=== PATIENT | female | born 1945 | race Caucasian/White ===

== ENCOUNTER 2020-03-10 14:28 | Outpatient (REF) | payer MEDICARE, MEDICAID, SELFPAY | END 2020-03-10 14:29 | disposition home or self-care (01) | LOC: HO.HAP 14:28 | PROVIDERS: Visit Provider Internal Medicine | DX: Z46.1 Encounter for fitting and adjustment of hearing aid (principal) ==

== ENCOUNTER 2020-06-10 10:33 | Outpatient (REF) | payer MEDICARE, MEDICAID, SELFPAY ==
[2020-06-10 11:27] LABS: Hematocrit 47.6 % (37-47); Mean Corpuscular HGB Conc 31.5 g/dl (31.0-35.0); Mean Corpuscular Hemoglobin 28.1 pg (27.0-33.0); Mean Corpuscular Volume 89.3 fL (80-98); Platelet Count 263 X10*3/uL (160-400); Red Blood Count 5.33 X10*6/uL (4.20-5.50); Red Cell Distribution Width 13.7 % (11.0-16.0)
[2020-06-10 11:41] LABS: Estimated Average Glucose 203 mg/dL; Hemoglobin A1c % 8.7 %
[2020-06-10 11:56] LABS: Alanine Aminotransferase 20 U/L (0-31); Albumin Level 4.1 g/dL (3.5-5.0); Alkaline Phosphatase 110 U/L (39-117); Anion Gap 12 (12-20); Aspartate Amino Transferase 16 U/L (5-31); Bilirubin Total 0.3 mg/dL (0.0-1.0); Blood Urea Nitrogen 17 mg/dL (9-16); Calcium 9.3 mg/dL (8.4-10.2); Carbon Dioxide 31 mmol/L (22-29); Chloride 101 mmol/L (96-108); Cholesterol 138 mg/dL; Estimated Glomerular Filt Rate > 60; Glucose Fasting 259 mg/dL (60-99); HDL Cholesterol 29 mg/dL; LDL Cholesterol Calculated 41 mg/dl; Potassium 4.2 mmol/l (3.3-5.1); Sodium 140 mmol/L (135-145); Total Protein 7.1 g/dL (6.5-8.0); Triglycerides 341 mg/dL
[2020-06-10 12:02] LABS: Thyroid Stimulating Hormone 0.03 uIU/mL (0.32-4.0)
[2020-06-10 12:06] LABS: TSH reflex Free T4 0.03 mIU/mL (0.32-4.0)
[2020-06-10 12:45] LABS: Free T4 (Free Thyroxine) 1.37 ng/dL (0.71-1.85)
[2020-06-10 14:48] LABS: Creatinine Urine 133.46 mg/dL; Microalbum/Creatinine Ratio Ur 12.7 ug/mg cr
== END 2020-06-10 10:34 | disposition home or self-care (01) ==
LOC: HO.HMGCLDS 10:33
PROVIDERS: PCP Internal Medicine; Visit Provider Internal Medicine
DX: E11.9 Type 2 diabetes mellitus without complications (principal); I10 Essential (primary) hypertension; E03.9 Hypothyroidism, unspecified; F03.90 Unspecified dementia, unspecified severity, without behavioral disturbance, psychotic disturbance, mood disturbance, and anxiety
CPT/HCPCS: 36415; 80053; 80061; 82043; 83036; 84439; 84443; 85027

== ENCOUNTER 2020-08-15 09:31 | Emergency (ER) | payer MEDICARE, MEDICAID, SELFPAY ==
--- NOTE | ~2020-08-15 | CT_ITS ---
EXAMINATION: CT ABDOMEN AND PELVIS WITHOUT CONTRAST CLINICAL INFORMATION: Left flank pain COMPARISON: None TECHNIQUE: Multidetector volumetric imaging was performed from the superior aspect of the liver through the pubic symphysis. Sagittal and coronal reformatted images were obtained on the technologist's workstation. This CT examination was performed using dose optimization techniques as appropriate, variously including the following: *Automated exposure control *Adjustment of mA and/or kV according to patient size (this includes techniques or standardized protocols for targeted exams where dose is matched to indication/reason for exam; i.e. extremities or head) *Use of iterative reconstruction technique DLP: 502 mGy-cm FINDINGS: LUNG BASES: There is minimal bibasal atelectasis. The heart size is normal. There are pacer electrodes in the right atrium and right ventricle. LIVER, GALLBLADDER, AND BILIARY TREE: The liver is normal in size, shape, and attenuation. No focal hepatic lesion or biliary ductal dilatation is present. The gallbladder is contracted. PANCREAS: Unremarkable. SPLEEN: Unremarkable. ADRENAL GLANDS: Bilateral adrenal glands are slightly prominent. KIDNEYS AND URETERS: The kidneys are normal in size, shape, and attenuation. No hydronephrosis, hydroureter, or calculi seen. No perinephric stranding. There is a 9 mm partially exophytic lesion upper pole left kidney. Punctate wall calcification likely complex cyst. There are punctate 2 calcifications upper pole right kidney, 6 mm radiopaque calculi upper pole left kidney and several clusters of 2 mm calculi in midpole and few scattered 2 mm calculi in the lower pole left kidney. There is a 1 mm radiopaque calculi in the mid to distal portion of the right kidney on axial image 66/3 but no caliectasis or hydronephrosis seen. The left ureter is unremarkable. BLADDER: Unremarkable. GASTROINTESTINAL TRACT: There is diffuse colonic diverticulosis with mild mural thickening descending colon and pericolic colic fat stranding consistent with diverticulitis. The small bowel loops are normal caliber. There is moderate stool in sigmoid colon. The stomach is nondistended. The small bowel loops are normal caliber. The stomach is an remarkable. ABDOMINAL WALL: No significant hernia is appreciated. LYMPH NODES: Normal. VASCULAR: There is mild atherosclerotic dilatation of mid abdominal aorta measuring 3 cm wide and 3.5 cm in AP dimension. The right common iliac artery is slightly ectatic. PELVIC VISCERA: There is no free air or free fluid. OSSEOUS STRUCTURES: There are degenerative disc changes L5-S1 disc level. There is bilateral L4-L5 and L3-L4 facet joint arthropathy. CT/CT abdomen pelvis wo con IMPRESSION: Diffuse colonic diverticulosis with descending colon diverticulitis. There is mild pericolic fat stranding but no free air or free fluid to suspect any perforation. Bilateral nephrolithiasis. Suspect 1 mm calculi in the mid to distal right ureter but no hydroureteronephrosis.
[2020-08-15 09:34] VITALS: BP 160/60; BP 173/47; PULSE 60; PULSE 64; RESP 16; TEMP 36.6; O2SAT 94; O2SAT 96; BMI 26.5
[2020-08-15] MEDS: 0.9 % Sodium Chloride 1,000 ML 999 ML IVCONT (10:11)
--- NOTE | 2020-08-15 10:16 | ED.GENADULT ---
HPI - General Adult General Chief complaint: General Medical Stated complaint: FLANK PAIN Time Seen by Provider: 08/15/20 09:37 Source: patient Mode of arrival: ambulatory Limitations: no limitations Related Data Previous Rx's Medication Instructions Recorded cholecalciferol (vitamin D3) 125 125 mcg PO DAILY #90 cap 03/30/20 mcg (5,000 unit) capsule clopidogrel 75 mg tablet 75 mg PO DAILY #90 tab 03/30/20 donepezil 5 mg tablet 5 mg PO DAILY #90 tab 03/30/20 famotidine 40 mg tablet 40 mg PO DAILY #90 tab 03/30/20 gabapentin 100 mg capsule 100 mg PO BID #180 cap 03/30/20 insulin degludec 100 unit/mL (3 10 unit SUBCUT BEDTIME #15 ml 03/30/20 mL) subcutaneous pen rosuvastatin 10 mg tablet 10 mg PO DAILY #90 tab 03/30/20 metoprolol succinate 25 mg 25 mg PO DAILY #90 tab 04/28/20 tablet,extended release 24 hr lisinopril 10 mg tablet 10 mg PO DAILY #90 tab 06/10/20 levothyroxine 125 mcg tablet 125 mcg PO DAILY #90 tab 06/18/20 Allergies Allergy/AdvReac Type Severity Reaction Status Date / Time atorvastatin Allergy Unknown Unknown Verified 03/25/20 12:54 azithromycin Allergy Unknown Unknown Verified 03/25/20 12:54 ceftriaxone Allergy Unknown Unknown Verified 03/25/20 12:54 cephalexin Allergy Unknown Unknown Verified 03/25/20 12:54 citalopram Allergy Unknown Unknown Verified 03/25/20 12:54 levofloxacin Allergy Unknown Unknown Verified 03/25/20 12:54 metformin Allergy Unknown Unknown Verified 03/25/20 12:54 nitrofurantoin Allergy Unknown Unknown Verified 03/25/20 12:54 oxycodone Allergy Unknown Unknown Verified 03/25/20 12:54 penicillin V Allergy Unknown Unknown Verified 03/25/20 12:54 pioglitazone Allergy Unknown Unknown Verified 03/25/20 12:54 repaglinide Allergy Unknown unknown Verified 03/25/20 12:54 rosuvastatin [Crestor] Allergy Unknown Unknown Verified 03/25/20 12:54 sertraline Allergy Unknown Unknown Verified 03/25/20 12:54 simvastatin Allergy Unknown Unknown Verified 03/25/20 12:54 sulfacetamide Allergy Unknown Unknown Verified 03/25/20 12:54 Cefuroxime Sodium Allergy Unknown Unknown Uncoded 03/25/20 12:54 [facility] Past Medical History Medical History (Updated 08/15/20 @ 09:58 by COLE Robertson) Cataract Dementia Diabetes Frequent UTI HTN (hypertension) Hyperlipidemia Hypothyroid Macular degeneration Myocardial infarct Nephrolithiasis Pacemaker Surgical History (Updated 03/30/20 @ 09:14 by Alka Ramey CMA) H/O left knee surgery Status post lumbar spine surgery for decompression of spinal cord Social History Social History Smoking Status: Current every day smoker Use of substances other than those prescribed or required for medical reasons: No Advance Directives: No Advance Directives Information Provided: No Physical Exam Vital Signs: Vital Signs: Last Vital Signs Temp 97.8 F 08/15/20 09:34 Pulse 60 08/15/20 09:34 Resp 16 08/15/20 09:34 BP 173/47 H 08/15/20 09:34 Pulse Ox 94 08/15/20 09:34 Body Mass Index 26.5 Discharge Plan Discharge Prescriptions: No Action metoprolol succinate 25 mg tablet extended release 24 hr 25 mg PO DAILY Qty: 90 RF: 0 levothyroxine 125 mcg tablet 125 mcg PO DAILY Qty: 90 RF: 3 clopidogrel 75 mg tablet 75 mg PO DAILY Qty: 90 RF: 0 donepezil 5 mg tablet 5 mg PO DAILY Qty: 90 RF: 0 famotidine 40 mg tablet 40 mg PO DAILY Qty: 90 RF: 0 cholecalciferol (vitamin D3) 125 mcg (5,000 unit) capsule 125 mcg PO DAILY Qty: 90 RF: 0 gabapentin 100 mg capsule 100 mg PO BID Qty: 180 RF: 0 Tresiba FlexTouch U-100 100 unit/mL (3 mL) insulin pen 10 unit subcut BEDTIME Qty: 15 RF: 0 rosuvastatin [Crestor] 10 mg tablet 10 mg PO DAILY Qty: 90 RF: 0 lisinopril 10 mg tablet 10 mg PO DAILY Qty: 90 RF: 3
[2020-08-15 10:19] LABS: MANUAL DIFF FLAG NO
[2020-08-15 10:20] LABS: Basophils Absolute Auto 0.1 X10*3/uL (0.0-0.2); Basophils Percent Auto 0.7 % (0-2); Eosinophils Absolute Auto 0.1 X10*3/uL (0.0-0.4); Eosinophils Percent Auto 1.6 % (0-4); Hematocrit 43.9 % (37-47); Hemoglobin 13.9 g/dl (12.0-16.0); Imm Gran Abs Auto 0.02 X10*3/uL (0.00-0.03); Imm Gran Pct Auto 0.2 % (0.0-0.4); Lymphocytes Absolute Auto 1.7 X10*3/uL (1.2-4.9); Lymphocytes Percent Auto 19.7 % (20-40); Mean Corpuscular HGB Conc 31.7 g/dl (31.0-35.0); Mean Corpuscular Hemoglobin 28.5 pg (27.0-33.0); Mean Platelet Volume 9.6 fL (9.4-12.3); Monocytes Absolute Auto 0.5 X10*3/uL (0.1-1.2); Monocytes Percent Auto 6.3 % (2-11); Neutrophils Percent Auto 71.5 % (45-73); Platelet Count 222 X10*3/uL (160-400); Red Blood Count 4.88 X10*6/uL (4.20-5.50); Red Cell Distribution Width 13.4 % (11.0-16.0); White Blood Count 8.4 X10*3/uL (4.8-10.8)
--- NOTE | 2020-08-15 10:21 | ED_ITS ---
HPI - Abdominal Pain General Chief Complaint: General Medical Stated Complaint: FLANK PAIN Time Seen by Provider: 08/15/20 09:37 Source: patient and EMS Mode of arrival: EMS Limitations: no limitations History of Present Illness HPI narrative: 73-year-old female with a past medical history of dementia, myocardial infarction with pacemaker in place on Plavix, hypertension, hyperlipidemia, diabetes, hypothyroidism, cataracts, macular degeneration, nephrolithiasis and frequent UTIs currently [facility] presenting via EMS with complaints of atraumatic left-sided flank pain/left lower quadrant abdominal pain since yesterday. Denies any dizziness, headaches, nausea/vomiting, fevers, jaw pain, paresthesias, chest pain, shortness of breath, dyspnea on exertion, orthopnea, back pain, diarrhea, constipation, dysuria, hematuria or any other symptoms complaints or concerns at this time. MD elicited complaint: abdominal pain and flank pain Pertinent past history: kidney stones and past UTI Onset (ago): day(s) (Since yesterday) Pain Consistency: constant Location: LLQ and L flank Severity: moderate Quality: aching Radiation: none Migration to: no migration Exacerbating factors: nothing Relieving factors: nothing Associated symptoms: denies other symptoms Related Data Previous Rx's Medication Instructions Recorded cholecalciferol (vitamin D3) 125 125 mcg PO DAILY #90 cap 03/30/20 mcg (5,000 unit) capsule clopidogrel 75 mg tablet 75 mg PO DAILY #90 tab 03/30/20 donepezil 5 mg tablet 5 mg PO DAILY #90 tab 03/30/20 famotidine 40 mg tablet 40 mg PO DAILY #90 tab 03/30/20 gabapentin 100 mg capsule 100 mg PO BID #180 cap 03/30/20 insulin degludec 100 unit/mL (3 10 unit SUBCUT BEDTIME #15 ml 03/30/20 mL) subcutaneous pen rosuvastatin 10 mg tablet 10 mg PO DAILY #90 tab 03/30/20 metoprolol succinate 25 mg 25 mg PO DAILY #90 tab 04/28/20 tablet,extended release 24 hr lisinopril 10 mg tablet 10 mg PO DAILY #90 tab 06/10/20 levothyroxine 125 mcg tablet 125 mcg PO DAILY #90 tab 06/18/20 ciprofloxacin HCl 750 mg PO BID 7 Days #14 tab 08/15/20 metronidazole [Flagyl] 500 mg PO BID 7 Days #14 tab 08/15/20 tramadol 50 mg PO BID PRN #14 tab 08/15/20 Allergies Allergy/AdvReac Type Severity Reaction Status Date / Time atorvastatin Allergy Unknown Unknown Verified 03/25/20 12:54 azithromycin Allergy Unknown Unknown Verified 03/25/20 12:54 ceftriaxone Allergy Unknown Unknown Verified 03/25/20 12:54 cephalexin Allergy Unknown Unknown Verified 03/25/20 12:54 citalopram Allergy Unknown Unknown Verified 03/25/20 12:54 levofloxacin Allergy Unknown Unknown Verified 03/25/20 12:54 metformin Allergy Unknown Unknown Verified 03/25/20 12:54 nitrofurantoin Allergy Unknown Unknown Verified 03/25/20 12:54 oxycodone Allergy Unknown Unknown Verified 03/25/20 12:54 penicillin V Allergy Unknown Unknown Verified 03/25/20 12:54 pioglitazone Allergy Unknown Unknown Verified 03/25/20 12:54 repaglinide Allergy Unknown unknown Verified 03/25/20 12:54 rosuvastatin [Crestor] Allergy Unknown Unknown Verified 03/25/20 12:54 sertraline Allergy Unknown Unknown Verified 03/25/20 12:54 simvastatin Allergy Unknown Unknown Verified 03/25/20 12:54 sulfacetamide Allergy Unknown Unknown Verified 03/25/20 12:54 Cefuroxime Sodium Allergy Unknown Unknown Uncoded 03/25/20 12:54 Review of Systems Review of Systems Constitutional : No Weight loss, No Fever, No Chills, No Night Sweats, No Fatigue, NoMalaise ENT/Mouth: No ear pain, No sore throat, No Difficulty swallowing Cardiovascular : No Chest Pain, No SOB, No Dyspnea on Exertion, No Orthopnea, NoEdema, No Palpitations Respiratory : No Cough, No Sputum, No Wheezing, No Dyspnea Gastrointestinal : + Abdominal pain, No Nausea, No Vomiting, No Diarrhea, No Hematochezia, No Melena Genitourinary : No irregular bleeding, No Dysuria, No Urinary Frequency, No Hematuria,No Urinary Incontinence, No Urgency, No Flank Pain Musculoskeletal : No joint pain, No Myalgias, No Joint Swelling Skin : No Skin Lesions, No rash Neuro : No Weakness, No Numbness, No Paresthesias, No Loss of Consciousness, NoDizziness, No Headache Psych : No Social Issues, Heme/Lymph: No Bruising, No Bleeding,No Lymphadenopathy Endocrine : No Polyuria, No Polydipsia, No Temperature Intolerance Yes all other systems are reviewed and are negative Physical Exam Vital Signs: Vital Signs: Last Vital Signs Temp 97.8 F 08/15/20 12:11 Pulse 61 08/15/20 12:11 Resp 16 08/15/20 12:11 BP 163/73 H 08/15/20 12:11 Pulse Ox 98 08/15/20 12:11 Body Mass Index 26.5 vital signs have been reviewed as normal and appeared to be correct. Blood pressure normal. Heart rate hypertensive at 173/47. Respiration rate normal. Temperature normal. Oxygen saturation normal. Appearance: Alert. Oriented X3. No acute distress. Head: Normal external exam. Normocephalic. Eyes: PERRLA. EOMI. Conjunctiva and sclera normal. Eyelids normal. ENT: Pharynx normal. Uvula midline. Moist mucous membranes. Neck: Normal inspection. Neck supple. FROM. No adenopathy. No meningeal signs. CVS: Normal heart rate and rhythm. Heart sound normal. No murmurs noted. Pulses normal throughout. Respiratory: No respiratory distress. Painless inspiration. Breath sounds norm al. No wheezes/rales/rhonchi noted. Chest nontender. No accessory muscle usage noted or decreased air movement noted. Abdomen: Soft and mild tenderness to palpation to left flank/left lower quadrant . Nondistended. No guarding. No rigidity. Bowel sounds normal in all 4 quadrants. No distention noted. No organomegaly noted. No visible injury noted. No rebound tenderness. Negative Rovsing sign. Negative obturator's sign. Negative psoas sign. Negative Zuleta sign. Back: No CVA tenderness. Full range of motion noted. Skin: Skin warm and dry. Normal skin color. Normal skin turgor. No rashes/lesions/lacerations noted. Extremities: Extremities exhibit normal range of motion. Extremities nontender. Neuro: Oriented X 3. No motor deficit. No sensory deficit. Reflexes normal. Course Course Course Narrative: 10:15am - 73-year-old female with a past medical history of dementia, myocardial infarction with pacemaker in place on Plavix, hypertension, hyperlipidemia, diabetes, hypothyroidism, cataracts, macular degeneration, nephrolithiasis and frequent UTIs currently residing [facility] a [facility] presenting via EMS with complaints of atraumatic left-sided flank pain/left lower quadrant abdominal pain since yesterday. - on exam patient is alert not in any acute distress. Mildly hypertensive at 173/47 otherwise all other vitals are within normal limits. Lungs clear to auscultation. CV RRR. Abdomen is soft although patient has tenderness to palpation to left lower quadrant/left flank area. Not consistent with acute abdomen. No focal neuro deficits noted patient is no intact. - Concern for kidney stones vs diverticulitis vs UTI/pyelonephritis - Plan: Labs, UA, CT scan of abd/pelvis without IV contrast provide a L of IV fluids and 50 mg of tramadol and re-evaluate. Reevaluation(s) Reevaluation #1: - all labs within normal limits. UA with +1 leukocytes although she has +2 squamous epithelia self possibly a dirty catch therefore will not treat for UTI will wait for culture - CT scan of abdomen and pelvis revealed a 9 mm partially exophytic lesion upper pole left kidney. And bilateral nephrolithiasis. Suspect 1 mm calculi in the mid to distal right ureteral but no hydronephrosis. Patient was also noted to have diffuse colonic diverticulosis with descending colon diverticulitis with mild pericolonic fat stranding but no free air or free fluid to suspect any perforation - therefore patient is tolerating p.o. fluids and pain is controlled with tramadol therefore will send back to the penitentiary facility with Flagyl and ciprofloxacin as daughter who is at bedside reports that she has had ciprofloxacin in the past without any allergic reactions along with tramadol and referral to Dr. Che for the 9 mm partially exophytic lesion upper pole left kidney. And bilateral nephrolithiasis. As Dr. Che reported there is nothing to do at this time for the patient's 9 mm partially exophytic lesion upper pole left kidney. And bilateral nephrolithiasis. He reported that he wants the patient to follow up with him in his office outpatient. - therefore will DC home back to penitentiary facility with antibiotics and symptomatic treatment and referral to Dr. Che. Patient and penitentiary facility understand and agree with this plan. Time: 11:58 MDM - Abdominal Pain Medical Records Attestation: I reviewed the patient's medical records. Lab Data Attestation: I reviewed the patient's lab results. Result diagrams: 08/15/20 10:15 08/15/20 10:15 Labs: Lab Results 03/14/21 03/14/21 03/14/21 Range/Units 10:15 10:15 10:15 WBC 8.4 (4.8-10.8) X10*3/uL RBC 4.88 (4.20-5.50) X10*6/uL Hgb 13.9 (12.0-16.0) g/dl Hct 43.9 (37-47) % MCV 90.0 (80-98) fL MCH 28.5 (27.0-33.0) pg MCHC 31.7 (31.0-35.0) g/dl RDW 13.4 (11.0-16.0) % Plt Count 222 (160-400) X10*3/uL MPV 9.6 (9.4-12.3) fL Immature Gran % (Auto) 0.2 (0.0-0.4) % Neut % (Auto) 71.5 (45-73) % Lymph % (Auto) 19.7 L (20-40) % Heard % (Auto) 6.3 (2-11) % Eos % (Auto) 1.6 (0-4) % Baso % (Auto) 0.7 (0-2) % Lymph # (Auto) 1.7 (1.2-4.9) X10*3/uL Heard # (Auto) 0.5 (0.1-1.2) X10*3/uL Eos # (Auto) 0.1 (0.0-0.4) X10*3/uL Baso # (Auto) 0.1 (0.0-0.2) X10*3/uL Abs Immat Gran (auto) 0.02 (0.00-0.03) X10*3/uL Absolute Neuts (auto) 6.0 (2.0-8.3) X10*3/uL Absolute Nucleated RBC 0.000 (0.0-0.012) X10*3/uL Nucleated RBC % (auto) 0.0 (0.0-0.2) /100WBC Hold Purple Top SEE NOTE PT 13.5 H (10.8-13.0) SEC INR 1.1 (0.9-1.1) Sodium (135-145) mmol/L Potassium (3.3-5.1) mmol/L Chloride (96-108) mmol/L Carbon Dioxide (22-29) mmol/L Anion Gap (12-20) BUN (9-16) mg/dL Creatinine (0.5-1.4) mg/dL Estim Creat Clear Calc Estimated GFR Random Glucose (60-115) mg/dL Calcium (8.4-10.2) mg/dL Magnesium (1.6-2.6) mg/dL Total Bilirubin (0.0-1.0) mg/dL Direct Bilirubin (0.0-0.5) mg/dL AST (5-31) U/L ALT (0-31) U/L Alkaline Phosphatase (39-117) U/L Total Protein (6.5-8.0) g/dL Albumin (3.5-5.0) g/dL Lipase (8-78) U/L Urine Color Urine Appearance Urine pH (5.0-8.0) Ur Specific [place] (1.005-1.025) Urine Protein (NEG-TRACE) MG/DL Urine Glucose (UA) (NEG) MG/DL Urine Ketones (NEG) MG/DL Urine Blood (NEG) Urine Nitrite (NEG) Ur Leukocyte Esterase (NEG) Urine RBC (0) /HPF Urine WBC (0-4) /HPF Ur Squamous Epith Cells /LPF Urine Bacteria /LPF 08/15/20 08/15/20 08/15/20 Range/Units 10:15 10:15 11:27 WBC (4.8-10.8) X10*3/uL RBC (4.20-5.50) X10*6/uL Hgb (12.0-16.0) g/dl Hct (37-47) % MCV (80-98) fL MCH (27.0-33.0) pg MCHC (31.0-35.0) g/dl RDW (11.0-16.0) % Plt Count (160-400) X10*3/uL MPV (9.4-12.3) fL Immature Gran % (Auto) (0.0-0.4) % Neut % (Auto) (45-73) % Lymph % (Auto) (20-40) % Heard % (Auto) (2-11) % Eos % (Auto) (0-4) % Baso % (Auto) (0-2) % Lymph # (Auto) (1.2-4.9) X10*3/uL Heard # (Auto) (0.1-1.2) X10*3/uL Eos # (Auto) (0.0-0.4) X10*3/uL Baso # (Auto) (0.0-0.2) X10*3/uL Abs Immat Gran (auto) (0.00-0.03) X10*3/uL Absolute Neuts (auto) (2.0-8.3) X10*3/uL Absolute Nucleated RBC (0.0-0.012) X10*3/uL Nucleated RBC % (auto) (0.0-0.2) /100WBC Hold Purple Top PT (10.8-13.0) SEC INR (0.9-1.1) Sodium 140 (135-145) mmol/L Potassium 4.4 (3.3-5.1) mmol/L Chloride 103 (96-108) mmol/L Carbon Dioxide 29 (22-29) mmol/L Anion Gap 12 (12-20) BUN 15 (9-16) mg/dL Creatinine 0.82 (0.5-1.4) mg/dL Estim Creat Clear Calc 54.0 Estimated GFR > 60 Random Glucose 222 H (60-115) mg/dL Calcium 8.6 D (8.4-10.2) mg/dL Magnesium 2.0 (1.6-2.6) mg/dL Total Bilirubin 0.3 (0.0-1.0) mg/dL Direct Bilirubin 0.2 (0.0-0.5) mg/dL AST 9 D (5-31) U/L ALT 10 (0-31) U/L Alkaline Phosphatase 98 (39-117) U/L Total Protein 6.5 (6.5-8.0) g/dL Albumin 3.7 (3.5-5.0) g/dL Lipase 29 Cancelled (8-78) U/L Urine Color YELLOW Urine Appearance HAZY Urine pH 6.0 (5.0-8.0) Ur Specific [place] 1.015 (1.005-1.025) Urine Protein NEG (NEG-TRACE) MG/DL Urine Glucose (UA) NEG (NEG) MG/DL Urine Ketones NEG (NEG) MG/DL Urine Blood TRACE (NEG) Urine Nitrite NEG (NEG) Ur Leukocyte Esterase 1+ H (NEG) Urine RBC 0-2 (0) /HPF Urine WBC 30-49 H (0-4) /HPF Ur Squamous Epith Cells 2+ /LPF Urine Bacteria 2+ /LPF Imaging Data CT scan of abdomen pelvis without IV contrast: Attestation: I personally reviewed and interpreted this imaging study as follows: Radiologist's impression: FINDINGS: LUNG BASES: There is minimal bibasal atelectasis. The heart size is normal. There are pacer electrodes in the right atrium and right ventricle. LIVER, GALLBLADDER, AND BILIARY TREE: The liver is normal in size, shape, and attenuation. No focal hepatic lesion or biliary ductal dilatation is present. The gallbladder is contracted. PANCREAS: Unremarkable. SPLEEN: Unremarkable. ADRENAL GLANDS: Bilateral adrenal glands are slightly prominent. KIDNEYS AND URETERS: The kidneys are normal in size, shape, and attenuation. No hydronephrosis, hydroureter, or calculi seen. No perinephric stranding. There is a 9 mm partially exophytic lesion upper pole left kidney. Punctate wall calcification likely complex cyst. There are punctate 2 calcifications upper pole right kidney, 6 mm radiopaque calculi upper pole left kidney and several clusters of 2 mm calculi in midpole and few scattered 2 mm calculi in the lower pole left kidney. There is a 1 mm radiopaque calculi in the mid to distal portion of the right kidney on axial image 66/3 but no caliectasis or hydronephrosis seen. The left ureter is unremarkable. BLADDER: Unremarkable. GASTROINTESTINAL TRACT: There is diffuse colonic diverticulosis with mild mural thickening descending colon and pericolic colic fat stranding consistent with diverticulitis. The small bowel loops are normal caliber. There is moderate stool in sigmoid colon. The stomach is nondistended. The small bowel loops are normal caliber. The stomach is an remarkable. ABDOMINAL WALL: No significant hernia is appreciated. LYMPH NODES: Normal. VASCULAR: There is mild atherosclerotic dilatation of mid abdominal aorta measuring 3 cm wide and 3.5 cm in AP dimension. The right common iliac artery is slightly ectatic. PELVIC VISCERA: There is no free air or free fluid. OSSEOUS STRUCTURES: There are degenerative disc changes L5-S1 disc level. There is bilateral L4-L5 and L3-L4 facet joint arthropathy. CT/CT abdomen pelvis wo con IMPRESSION: Diffuse colonic diverticulosis with descending colon diverticulitis. There is mild pericolic fat stranding but no free air or free fluid to suspect any perforation. Bilateral nephrolithiasis. Suspect 1 mm calculi in the mid to distal right ureter but no hydroureteronephrosis. Discharge Plan Discharge Clinical Impression: Nephrolithiasis, Diverticulitis, Kidney lesion Patient Disposition: Home, Self-Care Instructions: Diverticulitis (ED), Kidney Stones (ED), Diverticulitis Diet (ED) Additional Instructions: Your CT scan revealed the lesion and your upper pole of the left kidney I consulted with Urology Dr. Che and he reported there is nothing at this time that you would need to be admitted for although he wants you to follow-up outpatient with him please call on Sunday to make a follow-up appointment as soon as possible within the next 1-[address] Che the numbers listed below. You were also noted to have diverticulitis therefore will place you on antibiotics and symptomatic treatment. Return if any new or worsening symptoms and follow up with her primary care provider and Dr. Che. KIDNEYS AND URETERS: The kidneys are normal in size, shape, and attenuation. No hydronephrosis, hydroureter, or calculi seen. No perinephric stranding. There is a 9 mm partially exophytic lesion upper pole left kidney. Punctate wall calcification likely complex cyst. There are punctate 2 calcifications upper pole right kidney, 6 mm radiopaque calculi upper pole left kidney and several clusters of 2 mm calculi in midpole and few scattered 2 mm calculi in the lower pole left kidney. There is a 1 mm radiopaque calculi in the mid to distal portion of the right kidney on axial image 66/3 but no caliectasis or hydronephrosis seen. The left ureter is unremarkable. BLADDER: Unremarkable. GASTROINTESTINAL TRACT: There is diffuse colonic diverticulosis with mild mural thickening descending colon and pericolic colic fat stranding consistent with diverticulitis. The small bowel loops are normal caliber. There is moderate stool in sigmoid colon. The stomach is nondistended. The small bowel loops are normal caliber. The stomach is an remarkable. The rest of the CT scan of the abdomen and pelvis were within normal limits Prescriptions: New metronidazole [Flagyl] 500 mg tablet 500 mg PO BID 7 Days Qty: 14 RF: 0 tramadol 50 mg tablet 50 mg PO BID PRN (Reason: pain) Qty: 14 RF: 0 ciprofloxacin HCl 750 mg tablet 750 mg PO BID 7 Days Qty: 14 RF: 0 No Action metoprolol succinate 25 mg tablet extended release 24 hr 25 mg PO DAILY Qty: 90 RF: 0 levothyroxine 125 mcg tablet 125 mcg PO DAILY Qty: 90 RF: 3 clopidogrel 75 mg tablet 75 mg PO DAILY Qty: 90 RF: 0 donepezil 5 mg tablet 5 mg PO DAILY Qty: 90 RF: 0 famotidine 40 mg tablet 40 mg PO DAILY Qty: 90 RF: 0 cholecalciferol (vitamin D3) 125 mcg (5,000 unit) capsule 125 mcg PO DAILY Qty: 90 RF: 0 gabapentin 100 mg capsule 100 mg PO BID Qty: 180 RF: 0 Tresiba FlexTouch U-100 100 unit/mL (3 mL) insulin pen 10 unit subcut BEDTIME Qty: 15 RF: 0 rosuvastatin [Crestor] 10 mg tablet 10 mg PO DAILY Qty: 90 RF: 0 lisinopril 10 mg tablet 10 mg PO DAILY Qty: 90 RF: 3 Referrals: Ashley Morales MD [Primary Care Provider] - 2 days Derian Che MD [Physician] - 2 days (Call Sunday to make a follow-up appointment within the next week or 2) Print Language: [place] [facility] Past Medical History Attestation statement: The following information was validated with the patient. Medical History Cataract Dementia Diabetes Frequent UTI HTN (hypertension) Hyperlipidemia Hypothyroid Macular degeneration Myocardial infarct Nephrolithiasis Pacemaker Surgical History H/O left knee surgery Status post lumbar spine surgery for decompression of spinal cord Social History Social History Smoking Status: Current every day smoker Use of substances other than those prescribed or required for medical reasons: No Advance Directives: No Advance Directives Information Provided: No
[2020-08-15 10:49] LABS: INTERNATIONAL NORM RATIO 1.1 (0.9-1.1); Prothrombin Time 13.5 SEC (10.8-13.0)
[2020-08-15] MEDS: traMADoL HCL 50 MG TABLET PO (11:15)
[2020-08-15 11:32] LABS: Alanine Aminotransferase 10 U/L (0-31); Albumin Level 3.7 g/dL (3.5-5.0); Alkaline Phosphatase 98 U/L (39-117); Anion Gap 12 (12-20); Aspartate Amino Transferase 9 U/L (5-31); Bilirubin Direct 0.2 mg/dL (0.0-0.5); Bilirubin Total 0.3 mg/dL (0.0-1.0); Blood Urea Nitrogen 15 mg/dL (9-16); Calcium 8.6 mg/dL (8.4-10.2); Carbon Dioxide 29 mmol/L (22-29); Chloride 103 mmol/L (96-108); Estimated Glomerular Filt Rate > 60; Glucose Random 222 mg/dL (60-115); Lipase 29 U/L (8-78); Potassium 4.4 mmol/L (3.3-5.1); Sodium 140 mmol/L (135-145); Total Protein 6.5 g/dL (6.5-8.0)
[2020-08-15 11:33] LABS: Glucose Urine UA NEG (NEG); Leukocyte Esterase Urine 1+ (NEG); Nitrite Urine NEG (NEG); Specific Gravity - Urine 1.015 (1.005-1.025); UACC Culture Trigger YES; Urine Blood TRACE (NEG); Urine Ketones NEG (NEG); Urine Protein NEG (NEG-TRACE)
[2020-08-15 11:36] LABS: Appearance Urine HAZY; Color Urine YELLOW
[2020-08-15 11:43] LABS: Bacteria Urine 2+ /LPF; RBC Urine 0-2 /HPF (0); Squamous Epithelial Cell Urine 2+ /LPF; WBC Urine 30-49 /HPF (0-4)
[2020-08-15 12:11] VITALS: BP 163/73; PULSE 61; RESP 16; TEMP 36.6; O2SAT 98
== END 2020-08-15 14:27 | disposition home or self-care (01) ==
PROVIDERS: Physician Assistant Medical; Emergency Provider Emergency Medicine; PCP Internal Medicine
DX: N20.0 Calculus of kidney (principal); K57.32 Diverticulitis of large intestine without perforation or abscess without bleeding; N28.9 Disorder of kidney and ureter, unspecified; R10.32 Left lower quadrant pain; I25.10 Atherosclerotic heart disease of native coronary artery without angina pectoris; Z79.01 Long term (current) use of anticoagulants; Z79.899 Other long term (current) drug therapy; F17.200 Nicotine dependence, unspecified, uncomplicated; Z71.6 Tobacco abuse counseling
CPT/HCPCS: 36415; 74176; 80048; 80076; 81001; 81003; 83690; 83735; 85025; 85610; 87086; 96360; 99284

== ENCOUNTER → 2020-09-16 13:44 | Outpatient (BNVA) | payer MEDICARE, MEDICAID, SELFPAY | PROVIDERS: PCP Internal Medicine; Visit Provider Urology | DX: N20.0 Calculus of kidney (principal) | CPT/HCPCS: 99202 ==

== ENCOUNTER 2020-10-05 11:01 | Outpatient (REF) | payer MEDICARE, MEDICAID, SELFPAY ==
--- NOTE | 2020-10-05 11:17 | MHC.AU.P13 ---
Hearing Instrument Cleaning/L&D Date of Visit: 10/05/20 Right Ear: Purchasing Director: [employer] Model: AUDEO M70-13T Serial Number: [id number] Repair Warranty: 03/30/2023 Loss and Damage Warranty: USED 10/05/2020 Battery Size: 13 Color: GRAPHITE JONES Core Laying Machine Operator: 2M Type of Dome: SMALL POWER Type of Wax Guard: CERUSHIELD Left Ear: Purchasing Director: [employer] Model: AUDEO M70-13T Serial Number: [id number] Repair Warranty: 03/30/2023 Loss and Damage Warranty: 03/30/2023 Battery Size: 13 Color: GRAPHITE JONES Core Laying Machine Operator: 2M Type of Dome: SMALL POWER Type of Wax Guard: CERUSHIELD Follow-Up Summary: Patient's daughter came in with left aid for cleaning - cleaned, replaced wax guard, retention tail, and small power dome - amplifying clearly. Daughter filled loss and damage form for right aid which has been lost. Faxed loss and damage claim to [employer]. Recommendations: Recommendations: Patient will be contacted when materials have arrived. Signature: Provider: HEYDI Cunha-HIS
== END 2020-10-05 11:02 | disposition home or self-care (01) ==
LOC: HO.HAP 11:01
PROVIDERS: Visit Provider Internal Medicine
DX: Z46.1 Encounter for fitting and adjustment of hearing aid (principal)
CPT/HCPCS: V5266

== ENCOUNTER 2020-11-04 12:52 | Inpatient (IN) | payer MEDICARE, MEDICAID, SELFPAY ==
--- NOTE | ~2020-11-04 | XR_ITS ---
EXAMINATION: XR CHEST CLINICAL INFORMATION: Palpitations. COMPARISON: None TECHNIQUE: Frontal view of the chest was obtained. FINDINGS: The lungs are well-expanded and clear of acute process. Heart size and pulmonary vascularity is normal. There are dual pacer electrodes in right atrium and right ventricle. No gross bony abnormality seen. XR/XR chest 1V IMPRESSION: Unremarkable chest exam.
--- NOTE | ~2020-11-04 | CT_ITS ---
EXAMINATION: CT ANGIOGRAM OF THE CHEST WITH AND WITHOUT CONTRAST (CT PULMONARY ANGIOGRAM FOR PE) CLINICAL INFORMATION: Reason for Exam palpitations d-dimer elevated r/o PE COMPARISON: Chest x-ray 11/04/2020 TECHNIQUE: Prior to contrast administration, noncontrast localization images were obtained. Subsequently, multidetector volumetric imaging was performed from the thoracic inlet to below the diaphragms following the administration of 80 mL Omnipaque 350 intravenous contrast. No contrast reaction reported Sagittal, coronal, and MIP oblique sagittal reformatted images were obtained on the CT workstation, uploaded to PACS, and reviewed. This CT examination was performed using dose optimization techniques as appropriate, variously including the following: *Automated exposure control *Adjustment of mA and/or kV according to patient size (this includes techniques or standardized protocols for targeted exams where dose is matched to indication/reason for exam; i.e. extremities or head) *Use of iterative reconstruction technique Total exam dose-length product 247 mGy-cm FINDINGS: QUALITY OF STUDY/CONTRAST BOLUS: Satisfactory. PULMONARY ARTERIES: No central or segmental pulmonary emboli. THORACIC AORTA: No aneurysm or dissection. There is a moderate volume of vascular calcifications of aorta. LUNG: Paraseptal emphysematous change of lungs. No acute airways disease. No interstitial lung disease. There is no bronchiectasis. No suspicious lung nodules. PLEURA: No pleural effusion or pneumothorax. MEDIASTINUM: Pacemaker leads in the right atrium and right ventricle. Normal heart size. No pericardial effusion. No hilar or mediastinal lymphadenopathy. No evidence of septal bowing or right heart strain. Large volume of coronary artery calcification. There is a tiny air droplets in the right paratracheal soft tissues in the superior mediastinum likely an intravascular droplet of air related to IV injection. Axial image series 5. CHEST WALL/AXILLA: No axillary or internal mammary lymphadenopathy. OSSEOUS STRUCTURES: No acute or suspicious osseous abnormality. UPPER ABDOMEN: Unremarkable. No reflux of contrast into the hepatic veins to suggest elevated right heart pressures. CT/CT angio chest PE protocol IMPRESSION: 1. No acute abnormality. No evidence of pulmonary embolism. 2. Emphysematous change of lungs. 3. Large volume of coronary artery calcification. Pacemaker leads in the heart. VTE: negative
[2020-11-04 12:56] VITALS: BP 193/94; PULSE 86; RESP 18; TEMP 36.8; O2SAT 94; BMI 27.3
--- NOTE | 2020-11-04 13:09 | ECG_ITS ---
Test Reason : PALPITATIONS Blood Pressure : / mmHG Vent. Rate : 084 BPM Atrial Rate : 084 BPM P-R Int : 196 ms QRS Dur : 102 ms QT Int : 458 ms P-R-T Axes : 000 -37 110 degrees QTc Int : 541 ms Normal sinus rhythm Left axis deviation Left ventricular hypertrophy with repolarization abnormality Inferior infarct , age undetermined Prolonged QT Abnormal ECG No previous ECGs available Referred By: Oneida Delarosa Electronically Signed By:Abhijeet Aldana
--- NOTE | 2020-11-04 13:15 | ED_ITS ---
HPI - Arrhythmia/Palpitations General Chief Complaint: Arrhythmia/Palpitations Stated Complaint: PALPITATIONS Time Seen by Provider: 11/04/20 13:09 Source: patient Mode of arrival: ambulatory Limitations: no limitations History of Present Illness HPI narrative: 75 yo female with cognitive impairment, IDDM, pacemaker - unknown reasons, HTN, diverticulitis, OK here with abrupt onset of palpitations/dyspnea/pain into back EMS caugh irregular rhythm to 170s that broke prior to arrival patient cannot tell me if she has hx of afib, states all of her symptoms are gone at this time MD complaint: rapid heart beat, heart racing and palpitations Onset (ago): minute(s) Duration: now resolved Severity: severe Context: occurred during exertion (walking up stairs) Arrhythmia history: pacemaker Associated symptoms: shortness of breath, nausea and other (back pain) Related Data Home Medications Medication Instructions Recorded Confirmed cyanocobalamin (vitamin B-12) 1,000 mcg PO DAILY 11/04/20 11/04/20 donepezil 5 mg PO BEDTIME 11/04/20 11/04/20 lisinopril 40 mg PO DAILY 11/04/20 11/04/20 rosuvastatin [Crestor] 10 mg PO BEDTIME 11/04/20 11/04/20 Previous Rx's Medication Instructions Recorded cholecalciferol (vitamin D3) 125 125 mcg PO DAILY #90 cap 03/30/20 mcg (5,000 unit) capsule clopidogrel 75 mg tablet 75 mg PO DAILY #90 tab 03/30/20 gabapentin 100 mg capsule 100 mg PO BID #180 cap 03/30/20 levothyroxine 125 mcg tablet 125 mcg PO DAILY #90 tab 06/18/20 blood sugar diagnostic #100 ea 09/01/20 blood-glucose meter #100 ea 09/01/20 lancets 33 gauge #100 ea 09/01/20 allopurinol 100 mg tablet 100 mg PO DAILY 90 Days #90 tab 09/16/20 insulin degludec 100 unit/mL (3 20 unit SUBCUT BEDTIME #15 ml 09/16/20 mL) subcutaneous pen pyridoxine (vitamin B6) 100 mg 100 mg PO DAILY 90 Days #90 tab 09/16/20 tablet famotidine 40 mg tablet 40 mg PO DAILY #90 tab 11/04/20 metoprolol succinate 25 mg 25 mg PO DAILY #90 tab 11/04/20 tablet,extended release 24 hr Allergies Allergy/AdvReac Type Severity Reaction Status Date / Time atorvastatin Allergy Unknown Unknown Verified 10/28/20 10:54 azithromycin Allergy Unknown Unknown Verified 10/28/20 10:54 ceftriaxone Allergy Unknown Unknown Verified 10/28/20 10:54 cephalexin Allergy Unknown Unknown Verified 10/28/20 10:54 citalopram Allergy Unknown Unknown Verified 10/28/20 10:54 levofloxacin Allergy Unknown Unknown Verified 10/28/20 10:54 metformin Allergy Unknown Unknown Verified 10/28/20 10:54 nitrofurantoin Allergy Unknown Unknown Verified 10/28/20 10:54 oxycodone Allergy Unknown Unknown Verified 10/28/20 10:54 penicillin V Allergy Unknown Unknown Verified 10/28/20 10:54 pioglitazone Allergy Unknown Unknown Verified 10/28/20 10:54 repaglinide Allergy Unknown unknown Verified 10/28/20 10:54 rosuvastatin [Crestor] Allergy Unknown Unknown Verified 10/28/20 10:54 sertraline Allergy Unknown Unknown Verified 10/28/20 10:54 simvastatin Allergy Unknown Unknown Verified 10/28/20 10:54 sulfacetamide Allergy Unknown Unknown Verified 10/28/20 10:54 Cefuroxime Sodium Allergy Unknown Unknown Uncoded 03/25/20 12:54 Review of Systems Review of Systems: Constitutional : No Fever, No Chills ENT/Mouth : No sore throat, No Rhinorrhea, No Swallowing Difficulty Eyes: No Eye Pain, No Swelling, No Redness Cardiovascular : pos Chest Pain, positive SOB, No Orthopnea, no Edema, pos palpitations Respiratory : No Cough, No Sputum, No Wheezing, positive dyspnea Gastrointestinal : No Nausea, No Vomiting, No Diarrhea, No abdominal Pain, No Hematochezia, No Melena Genitourinary : No Dysuria, No Urinary Frequency, No Hematuria Musculoskeletal : No joint pain, No Myalgias Skin : No Skin Lesions, No rash Neuro : No Weakness, No Numbness, No Dizziness, No Headache Psych : No Anxiety/Panic, No Depression Heme/Lymph: No Bruising, No Lymphadenopathy Endocrine : No Polyuria, No Polydipsia All other systems reviewed and are negative [facility] Past Medical History Medical History Cataract Dementia Diabetes Diverticulitis Frequent UTI HTN (hypertension) Hyperlipidemia Hypothyroid IDDM (insulin dependent diabetes mellitus) Macular degeneration Myocardial infarct Nephrolithiasis Nephrolithiasis Pacemaker Surgical History H/O left knee surgery Status post lumbar spine surgery for decompression of spinal cord Social History Social History Advance Directives: Yes Advance Directives Information Provided: Yes Advance Directives on File: No Physical Exam Vital Signs: Vital Signs: Last Vital Signs Temp 98.2 F 11/04/20 12:56 Pulse 77 11/04/20 15:48 Resp 11 L 11/04/20 15:48 BP 191/93 H 11/04/20 15:48 Pulse Ox 94 11/04/20 12:56 Body Mass Index 27.3 Appearance: Alert. Oriented X2No acute distress. Eyes: Pupils equal, round and reactive to light. ENT: Pharynx normal. Neck: Normal inspection. Neck supple. CVS: Normal heart rate and rhythm. Pulses normal. Respiratory: No respiratory distress. Breath sounds normal. Abdomen: Soft and non-tender. Skin: Skin warm and dry. Normal skin color. Normal skin turgor. Extremities: No lower extremity edema. No calf ttp Neuro: Oriented X 2. No motor deficit. No sensory deficit. Course Course Course Narrative: no records from [facility] yet - message sent to Cardiology 244pm given EKG though no symptoms, trop 44.8 aspirin ordered, ddimer elevated CTA PE ordered BP elevated nitro paste ordered, denies symptoms BP down to 150s nitro held, patient now with daughter at bedside feels the patient is weak and her leg is shaky and she feels dizziness - her dizziness is chronic, the patient denied any of this to me at this time, plan is to continue workup, obtain UA, CTA for PE, reassess patient signed out Dr. Turpin pending repeat troponin and CTA MDM - Arrhythmia/Palpitations MDM Narrative Medical decision making narrative: 75 yo female with cognitive impairment, IDDM, pacemaker - unknown reasons, HTN, diverticulitis, [place] here with abrupt onset of palpitations/dyspnea/pain into back EMS caugh irregular rhythm to 170s that broke prior to arrival patient cannot tell me if she has hx of afib, states all of her symptoms are gone at this time - labs, [facility] records, CXR, has EKG changes concerning for ischemia, prolonged qtc IV magnesium ordered Lab Data Result diagrams: 11/04/20 13:50 11/04/20 13:50 Labs: Lab Results 11/04/20 11/04/20 11/04/20 Range/Units 13:49 13:49 13:50 WBC 10.8 (4.8-10.8) X10*3/uL RBC 5.64 H (4.20-5.50) X10*6/uL Hgb 16.0 (12.0-16.0) g/dl Hct 49.6 H (37-47) % MCV 87.9 (80-98) fL MCH 28.4 (27.0-33.0) pg MCHC 32.3 (31.0-35.0) g/dl RDW 14.1 (11.0-16.0) % Plt Count 252 (160-400) X10*3/uL MPV 9.6 (9.4-12.3) fL Immature Gran % (Auto) 0.5 H (0.0-0.4) % Neut % (Auto) 75.9 H (45-73) % Lymph % (Auto) 18.3 L (20-40) % [place] % (Auto) 4.1 (2-11) % Eos % (Auto) 0.6 (0-4) % Baso % (Auto) 0.6 (0-2) % Lymph # (Auto) 2.0 (1.2-4.9) X10*3/uL [place] # (Auto) 0.4 (0.1-1.2) X10*3/uL Eos # (Auto) 0.1 (0.0-0.4) X10*3/uL Baso # (Auto) 0.1 (0.0-0.2) X10*3/uL Abs Immat Gran (auto) 0.05 H (0.00-0.03) X10*3/uL Absolute Neuts (auto) 8.2 (2.0-8.3) X10*3/uL Absolute Nucleated RBC 0.000 (0.0-0.012) X10*3/uL Nucleated RBC % (auto) 0.0 (0.0-0.2) /100WBC PT (10.8-13.0) SEC INR (0.9-1.1) APTT (24.1-38.0) SEC D-Dimer NG/ML Sodium (135-145) mmol/L Potassium (3.3-5.1) mmol/L Chloride (96-108) mmol/L Carbon Dioxide (22-29) mmol/L Anion Gap (12-20) BUN (9-16) mg/dL Creatinine (0.5-1.4) mg/dL Estim Creat Clear Calc Estimated GFR Random Glucose (60-115) mg/dL Calcium (8.4-10.2) mg/dL Magnesium (1.6-2.6) mg/dL Total Bilirubin (0.0-1.0) mg/dL Direct Bilirubin (0.0-0.5) mg/dL AST (5-31) U/L ALT (0-31) U/L Alkaline Phosphatase (39-117) U/L Troponin I High Sens 44.8 H* (<3.5-17.0) ng/L B-Natriuretic Peptide 82 (<100) pg/mL Total Protein (6.5-8.0) g/dL Albumin (3.5-5.0) g/dL Lipase (8-78) U/L TSH 0.91 (0.32-4.0) uIU/mL COVID-19 (RUSSELL) (Negative) COVID-19 Clin Com 11/04/20 11/04/20 11/04/20 Range/Units 13:50 13:50 13:50 WBC (4.8-10.8) X10*3/uL RBC (4.20-5.50) X10*6/uL Hgb (12.0-16.0) g/dl Hct (37-47) % MCV (80-98) fL MCH (27.0-33.0) pg MCHC (31.0-35.0) g/dl RDW (11.0-16.0) % Plt Count (160-400) X10*3/uL MPV (9.4-12.3) fL Immature Gran % (Auto) (0.0-0.4) % Neut % (Auto) (45-73) % Lymph % (Auto) (20-40) % [place] % (Auto) (2-11) % Eos % (Auto) (0-4) % Baso % (Auto) (0-2) % Lymph # (Auto) (1.2-4.9) X10*3/uL [place] # (Auto) (0.1-1.2) X10*3/uL Eos # (Auto) (0.0-0.4) X10*3/uL Baso # (Auto) (0.0-0.2) X10*3/uL Abs Immat Gran (auto) (0.00-0.03) X10*3/uL Absolute Neuts (auto) (2.0-8.3) X10*3/uL Absolute Nucleated RBC (0.0-0.012) X10*3/uL Nucleated RBC % (auto) (0.0-0.2) /100WBC PT 12.6 (10.8-13.0) SEC INR 1.1 (0.9-1.1) APTT 35.1 (24.1-38.0) SEC D-Dimer NG/ML Sodium 141 (135-145) mmol/L Potassium 4.2 (3.3-5.1) mmol/L Chloride 105 (96-108) mmol/L Carbon Dioxide 26 (22-29) mmol/L Anion Gap 14 (12-20) BUN 14 (9-16) mg/dL Creatinine 0.84 (0.5-1.4) mg/dL Estim Creat Clear Calc 52.6 Estimated GFR > 60 Random Glucose 223 H (60-115) mg/dL Calcium 9.3 D (8.4-10.2) mg/dL Magnesium 1.9 (1.6-2.6) mg/dL Total Bilirubin 0.4 (0.0-1.0) mg/dL Direct Bilirubin 0.2 (0.0-0.5) mg/dL AST 18 D (5-31) U/L ALT 28 (0-31) U/L Alkaline Phosphatase 118 H D (39-117) U/L Troponin I High Sens (<3.5-17.0) ng/L B-Natriuretic Peptide Cancelled (<100) pg/mL Total Protein 7.4 (6.5-8.0) g/dL Albumin 4.3 (3.5-5.0) g/dL Lipase 33 (8-78) U/L TSH (0.32-4.0) uIU/mL COVID-19 (RUSSELL) (Negative) COVID-19 Clin Com 11/04/20 11/04/20 Range/Units 13:50 13:50 WBC (4.8-10.8) X10*3/uL RBC (4.20-5.50) X10*6/uL Hgb (12.0-16.0) g/dl Hct (37-47) % MCV (80-98) fL MCH (27.0-33.0) pg MCHC (31.0-35.0) g/dl RDW (11.0-16.0) % Plt Count (160-400) X10*3/uL MPV (9.4-12.3) fL Immature Gran % (Auto) (0.0-0.4) % Neut % (Auto) (45-73) % Lymph % (Auto) (20-40) % [place] % (Auto) (2-11) % Eos % (Auto) (0-4) % Baso % (Auto) (0-2) % Lymph # (Auto) (1.2-4.9) X10*3/uL [place] # (Auto) (0.1-1.2) X10*3/uL Eos # (Auto) (0.0-0.4) X10*3/uL Baso # (Auto) (0.0-0.2) X10*3/uL Abs Immat Gran (auto) (0.00-0.03) X10*3/uL Absolute Neuts (auto) (2.0-8.3) X10*3/uL Absolute Nucleated RBC (0.0-0.012) X10*3/uL Nucleated RBC % (auto) (0.0-0.2) /100WBC PT (10.8-13.0) SEC INR (0.9-1.1) APTT (24.1-38.0) SEC D-Dimer 402 NG/ML Sodium (135-145) mmol/L Potassium (3.3-5.1) mmol/L Chloride (96-108) mmol/L Carbon Dioxide (22-29) mmol/L Anion Gap (12-20) BUN (9-16) mg/dL Creatinine (0.5-1.4) mg/dL Estim Creat Clear Calc Estimated GFR Random Glucose (60-115) mg/dL Calcium (8.4-10.2) mg/dL Magnesium (1.6-2.6) mg/dL Total Bilirubin (0.0-1.0) mg/dL Direct Bilirubin (0.0-0.5) mg/dL AST (5-31) U/L ALT (0-31) U/L Alkaline Phosphatase (39-117) U/L Troponin I High Sens (<3.5-17.0) ng/L B-Natriuretic Peptide (<100) pg/mL Total Protein (6.5-8.0) g/dL Albumin (3.5-5.0) g/dL Lipase (8-78) U/L TSH (0.32-4.0) uIU/mL COVID-19 (RUSSELL) Negative (Negative) COVID-19 Clin Com See Note ECG Data Attestation: I personally reviewed and interpreted this ECG as follows: ECG interpretation date: 11/04/20 ECG interpretation time: 13:17 Interpretation: Rate: 84 Rhythm: NSR [place]: left LVH Normal P waves. Normal KENDELL. Normal QRS complex. ST T wave : ST depression I and aVL, no SHARONDA, q waves in inf leads qTC: prolonged prior studies: no prior The study has been interpreted contemporaneously by me. . Discharge Plan Discharge Clinical Impression: Palpitations, Atrial fibrillation, HTN (hypertension), Elevated troponin Prescriptions: No Action levothyroxine 125 mcg tablet 125 mcg PO DAILY Qty: 90 RF: 3 (DME) OneTouch Ultra Blue Test Strip Strip See Rx Instructions .ROUTE .MEDSUPPLY Qty: 100 RF: 4 (DME) blood-glucose meter [OneTouch Ultra2 Meter] Misc See Rx Instructions .ROUTE .MEDSUPPLY Qty: 100 RF: 3 (DME) lancets [Triplejump GroupTouch Delica Lancets] 33 gauge misc See Rx Instructions .ROUTE .MEDSUPPLY Qty: 100 RF: 5 metoprolol succinate 25 mg tablet extended release 24 hr 25 mg PO DAILY Qty: 90 RF: 0 famotidine 40 mg tablet 40 mg PO DAILY Qty: 90 RF: 0 lisinopril 40 mg Tablet 40 mg PO DAILY RF: 0 donepezil 5 mg tablet 5 mg PO BEDTIME RF: 0 rosuvastatin [Crestor] 10 mg tablet 10 mg PO BEDTIME RF: 0 cyanocobalamin (vitamin B-12) 1,000 mcg Tablet 1,000 mcg PO DAILY RF: 0 clopidogrel 75 mg tablet 75 mg PO DAILY Qty: 90 RF: 0 cholecalciferol (vitamin D3) 125 mcg (5,000 unit) capsule 125 mcg PO DAILY Qty: 90 RF: 0 gabapentin 100 mg capsule 100 mg PO BID Qty: 180 RF: 0 Tresiba FlexTouch U-100 100 unit/mL (3 mL) insulin pen 20 unit subcut BEDTIME Qty: 15 RF: 4 allopurinol 100 mg tablet 100 mg PO DAILY 90 Days Qty: 90 RF: 1 pyridoxine (vitamin B6) 100 mg tablet 100 mg PO DAILY 90 Days Qty: 90 RF: 1
[2020-11-04] MEDS: Magnesium Sulfate/H2O 2 GM/50 ML PIGGYBACK IV (13:50)
[2020-11-04 14:02] LABS: MANUAL DIFF FLAG NO
[2020-11-04 14:10] LABS: Basophils Absolute Auto 0.1 X10*3/uL (0.0-0.2); Basophils Percent Auto 0.6 % (0-2); Eosinophils Absolute Auto 0.1 X10*3/uL (0.0-0.4); Eosinophils Percent Auto 0.6 % (0-4); Hematocrit 49.6 % (37-47); INTERNATIONAL NORM RATIO 1.1 (0.9-1.1); Imm Gran Abs Auto 0.05 X10*3/uL (0.00-0.03); Imm Gran Pct Auto 0.5 % (0.0-0.4); Lymphocytes Percent Auto 18.3 % (20-40); Mean Corpuscular HGB Conc 32.3 g/dl (31.0-35.0); Mean Corpuscular Hemoglobin 28.4 pg (27.0-33.0); Mean Corpuscular Volume 87.9 fL (80-98); Mean Platelet Volume 9.6 fL (9.4-12.3); Monocytes Absolute Auto 0.4 X10*3/uL (0.1-1.2); Monocytes Percent Auto 4.1 % (2-11); Neutrophils Absolute Auto 8.2 X10*3/uL (2.0-8.3); Neutrophils Percent Auto 75.9 % (45-73); Platelet Count 252 X10*3/uL (160-400); Prothrombin Time 12.6 SEC (10.8-13.0); Red Blood Count 5.64 X10*6/uL (4.20-5.50); Red Cell Distribution Width 14.1 % (11.0-16.0); White Blood Count 10.8 X10*3/uL (4.8-10.8)
[2020-11-04 14:14] LABS: D Dimer 402 NG/ML; Partial Thromboplastin Time 35.1 SEC (24.1-38.0)
[2020-11-04 14:26] LABS: COVID-19 Test Negative (Negative)
[2020-11-04 14:33] LABS: Alanine Aminotransferase 28 U/L (0-31); Albumin Level 4.3 g/dL (3.5-5.0); Alkaline Phosphatase 118 U/L (39-117); Anion Gap 14 (12-20); Aspartate Amino Transferase 18 U/L (5-31); Bilirubin Direct 0.2 mg/dL (0.0-0.5); Bilirubin Total 0.4 mg/dL (0.0-1.0); Blood Urea Nitrogen 14 mg/dL (9-16); Calcium 9.3 mg/dL (8.4-10.2); Carbon Dioxide 26 mmol/L (22-29); Chloride 105 mmol/L (96-108); Creatinine Clr Calc Pharmacy 52.6; Estimated Glomerular Filt Rate > 60; Glucose Random 223 mg/dL (60-115); Lipase 33 U/L (8-78); Magnesium 1.9 mg/dL (1.6-2.6); Potassium 4.2 mmol/L (3.3-5.1); Sodium 141 mmol/L (135-145); Total Protein 7.4 g/dL (6.5-8.0)
[2020-11-04 14:37] LABS: B Type Natriuretic Peptide 82 pg/mL (<100); Troponin-I High Sensitivity 44.8 ng/L (<3.5-17.0)
[2020-11-04 14:51] LABS: Thyroid Stimulating Hormone 0.91 uIU/mL (0.32-4.0)
--- NOTE | 2020-11-04 15:11 | HE.PHANOTE ---
Pharmacy Consult ? Medication Reconciliation Pharmacy has completed the medication reconciliation and there were no significant medication issues requiring provider attention. Thanks
[2020-11-04] MEDS: Aspirin 81 MG TAB.CHEW 324 MG PO (15:40)
[2020-11-04 15:48] VITALS: BP 191/93; PULSE 77; RESP 11
[2020-11-04] MEDS: Nitroglycerin 2 % Oint 1 GM Packet 1 INCH TRANSDERMA (15:56)
[2020-11-04] MEDS: iohexoL 350 MG/ML 100 ML INFUS..BTL IV (16:28)
[2020-11-04 17:47] VITALS: BP 155/81; PULSE 60; RESP 17; TEMP 36.9; O2SAT 94
[2020-11-04 17:58] LABS: Glucose, Whole Blood 115 mg/dL (60-115)
[2020-11-04 18:15] LABS: Troponin-I High Sensitivity 216.7 ng/L (<3.5-17.0)
[2020-11-04 19:30] LABS: Appearance Urine CLEAR; Color Urine YELLOW; Glucose Urine UA NEG (NEG); Leukocyte Esterase Urine NEG (NEG); Nitrite Urine NEG (NEG); Specific Gravity - Urine <= 1.005 (1.005-1.025); Urine Blood TRACE (NEG); Urine Ketones NEG (NEG); Urine Protein NEG (NEG-TRACE)
[2020-11-04 19:37] LABS: Bacteria Urine TRACE /LPF; Squamous Epithelial Cell Urine TRACE /LPF; WBC Urine 0 /HPF (0-4)
[2020-11-04 20:00] VITALS: BP 158/80; PULSE 60; RESP 14; O2SAT 98
[2020-11-04 20:18] VITALS: BMI 28.0
[2020-11-04] MEDS: Heparin Sodium,Porcine 5,000 UNIT/ML VIAL 5000 UNIT IVPUSH (20:18)
[2020-11-04] MEDS: Heparin Sodium,Porcine/1/2NS 25,000 UNIT/250 ML IV.SOLN 8.4 UNIT IVCONT (20:20)
--- NOTE | 2020-11-04 20:20 | PC.NURSE ---
Addendum entered by Yumiko Bell 11/04/20 23:28: Error while typing nurse's note. Accidentally hit enter bermeo while writing note. Heparin drip initiated at 20:20 on 11/04/20. Infusing at 12 u/kg/hr as ordered. Will continue to monitor. Awaiting admission bed. Head of bed lowered to position of comfort for patient. Original Note: Heparin drip initiated at 20:20 on 11/04/20. Infusing at 12
[2020-11-04 20:56] VITALS: BP 158/80; PULSE 61; RESP 14; TEMP 36.8; O2SAT 93
--- NOTE | 2020-11-04 22:34 | PC.NURSE ---
Called [facility] to give RN to RN report. Nurse not available until after 23:00. Plan to give report after this time. Will continue to monitor
--- NOTE | 2020-11-04 22:52 | P.HPHOSP_ITS ---
History of Present Illness Date of Service: 11/04/20 Chief Complaint: chest pain, svt This is a 75-year-old female past medical history of diabetes, hypertension, HLD, pacemaker placement patient reports possibly secondary to fast heart rate, hypothyroidism, who presents to the hospital with complaints of back pain. Patient reports that she went up 3 flights of stairs and on coming down she felt severe 10/10 pain in the back, nonradiating, lasted about 15-20 minutes, associated with significant palpitations, felt like somebody is punching in the back , she felt her heart rate was very fast, she felt very dizzy, history to have shortness of breath, and diaphoretic. She lives in a custodial, and a nurse checked her vitals and found her to have blood pressure 168/126, with a heart rate of 152. EMS called and patient was brought into the hospital. Patient currently denies any chest pain, no headache, still feels lightheaded, currently denies any palpitations, no nausea or vomiting, no abdominal pain diarrhea constipation, no urinary symptoms and no lower extremity edema. No numbness tingling weakness On arrival To the ED vitals were significant for temp of 98.2?, heart rate of 86, respiratory rate of 18, blood pressure 183/94, satting 94% on room air Labs mostly unremarkable except for initial high sensitivity troponin of 44.8 that increased to 216.7 on repeat. Patient started on heparin drip and will be admitted for further management Review of Systems Review of Systems: Yes all other systems are reviewed and are negative [facility] Medical History Cataract Dementia Diabetes Diverticulitis Frequent UTI HTN (hypertension) Hyperlipidemia Hypothyroid IDDM (insulin dependent diabetes mellitus) Macular degeneration Myocardial infarct Nephrolithiasis Nephrolithiasis Pacemaker Surgical History H/O left knee surgery Status post lumbar spine surgery for decompression of spinal cord Social History Household Members: Children Household Members Other:: daughter Housing: House Do you presently have visiting nurse or other home services: No Patient Tobacco Use Status: Current everyday Tobacco user Tobacco use type: Cigarette Cigarettes Per Day: 4 Years Smoked: 54 Smoked in Last 30 Days: Yes Patient Interested in Nicotine Replacement: No Use of substances other than those prescribed or required for medical reasons: No Currently Displaying Signs/Symptoms of Drug Intoxication Withdrawal: No Have you been hit, kicked, punched, or otherwise hurt by someone within the past year? If so, by whom?: No Do you feel safe in your current relationship?: No Current Relationship Is there a partner from a previous relationship who is making you feel unsafe now?: No Are you made to feel afraid or neglected: No Advance Directives: Yes Advance Directives Information Provided: Yes Advance Directives on File: No Advance Directives Date on File: 11/05/20 Do you have thoughts of harming others: None Do you have a plan to hurt others: No Plan Recently lost weight without trying: Yes How much weight loss: 2-13 pounds Eating poorly because of decreased appetite: No Nutrition screen score: 3 Nutrition Risks: No Nutritional Risk Meds Allergies Allergy/AdvReac Type Severity Reaction Status Date / Time atorvastatin Allergy Unknown Unknown Verified 10/28/20 10:54 azithromycin Allergy Unknown Unknown Verified 10/28/20 10:54 ceftriaxone Allergy Unknown Unknown Verified 10/28/20 10:54 cephalexin Allergy Unknown Unknown Verified 10/28/20 10:54 citalopram Allergy Unknown Unknown Verified 10/28/20 10:54 levofloxacin Allergy Unknown Unknown Verified 10/28/20 10:54 metformin Allergy Unknown Unknown Verified 10/28/20 10:54 nitrofurantoin Allergy Unknown Unknown Verified 10/28/20 10:54 oxycodone Allergy Unknown Unknown Verified 10/28/20 10:54 penicillin V Allergy Unknown Unknown Verified 10/28/20 10:54 pioglitazone Allergy Unknown Unknown Verified 10/28/20 10:54 repaglinide Allergy Unknown unknown Verified 10/28/20 10:54 rosuvastatin [Crestor] Allergy Unknown Unknown Verified 10/28/20 10:54 sertraline Allergy Unknown Unknown Verified 10/28/20 10:54 simvastatin Allergy Unknown Unknown Verified 10/28/20 10:54 sulfacetamide Allergy Unknown Unknown Verified 10/28/20 10:54 Cefuroxime Sodium Allergy Unknown Unknown Uncoded 03/25/20 12:54 Active Medications: Current Medications Generic Name Dose Route Start Last Admin Trade Name Freq PRN Reason Stop Dose Admin Acetaminophen 650 mg 11/04/20 22:35 Acetaminophen 325 Mg Tablet PO Q6H PRN Pain, Mild (Pain Scale 1-3) Allopurinol 100 mg 11/05/20 09:00 Allopurinol 100 Mg Tablet PO DAILY [facility] Clopidogrel Bisulfate 75 mg 11/05/20 09:00 Clopidogrel Bisulfate 75 Mg Tablet PO DAILY [facility] Cyanocobalamin 1,000 mcg 11/05/20 09:00 Cyanocobalamin (Vitamin B-12) 1,000 Mcg Tablet PO DAILY [facility] Docusate Sodium 100 mg 11/04/20 22:35 Docusate Sodium 100 Mg Capsule PO DAILY PRN Constipation Donepezil HCl 5 mg 11/04/20 22:35 Donepezil Hcl 5 Mg Tablet PO BEDTIME [facility] Gabapentin 100 mg 11/04/20 22:35 Gabapentin 100 Mg Capsule PO BID [facility] Heparin Sodium (Porcine) 2,800 unit 11/04/20 19:19 Heparin Sodium,Porcine 5,000 Unit/Ml Vial 40 unit/kg (2800 unit) IVPUSH BOLUS PRN 40 unit/kg - Heparin Protocol Heparin Sodium (Porcine) 5,600 unit 11/04/20 19:19 Heparin Sodium,Porcine 5,000 Unit/Ml Vial 80 unit/kg (5600 unit) IVPUSH BOLUS PRN 80 unit/kg - Heparin Protocol Heparin Sodium/Sodium Chloride 25,000 unit in 250 mls @ 0 mls/hr 11/04/20 19:30 11/04/20 20:20 IVCONT 12 units/kg/hr .Q0M [facility] 8.4 mls/hr Administration Protocol Per Protocol Insulin Glargine 14 unit 11/04/20 23:00 Insulin Glargine,Hum.Rec.Anlog 100 Unit/Ml 10 Ml Vial SUBCUT BEDTIME [facility] Levothyroxine Sodium 125 mcg 11/05/20 09:00 Levothyroxine Sodium 125 Mcg Tablet PO DAILY [facility] Lisinopril 40 mg 11/05/20 09:00 Lisinopril 40 Mg Tablet PO DAILY [facility] Protocol Non-Formulary Medication 10 mg 11/04/20 22:35 Rosuvastatin [Crestor] PO BEDTIME [facility] Ondansetron HCl 4 mg 11/04/20 22:35 Ondansetron Hcl 4 Mg/2 Ml Vial IVPUSH Q8H PRN Nausea and Vomiting Pharmacy Consult 1 each 11/04/20 13:24 Consult Rx Perform Med Rec MISCELLANE ONCE PRN Consult order Pyridoxine HCl 100 mg 11/05/20 09:00 Pyridoxine Hcl (Vitamin B6) 50 Mg Tablet PO DAILY [facility] Sodium Chloride 3 ml 11/05/20 00:00 0.9 % Sodium Chloride Flush 3 Ml Syringe IVFLUSH QSHIFT [facility] Home Medications Medication Instructions Recorded Confirmed Last Taken Type cyanocobalamin (vitamin B-12) 1,000 mcg PO DAILY 11/04/20 11/04/20 11/03/20 History donepezil 5 mg PO BEDTIME 11/04/20 11/04/20 11/03/20 History lisinopril 40 mg PO DAILY 11/04/20 11/04/20 11/03/20 History rosuvastatin [Crestor] 10 mg PO BEDTIME 11/04/20 11/04/20 11/03/20 History Physical Exam Vital Signs and Narrative: Vital Signs: Last Vital Signs Temp 98.3 F 11/04/20 20:56 Pulse 61 11/04/20 20:56 Resp 14 11/04/20 20:56 BP 158/80 H 11/04/20 20:56 Pulse Ox 93 11/04/20 20:56 Body Mass Index 28.0 Const: General: cooperative and no acute distress Orientation/consciousness: patient oriented x3 Eyes: General: appearance normal, both eyes and all related structures Resp: Effort & Inspection: normal respiratory effort and able to speak in complete sentences Cardio: Rate: regular rate Rhythm: regular rhythm GI: Palpation (GI): Soft to palpation Auscultation: normal bowel sounds Skin: General skin exam: no rashes or lesions noted Neuro: General: patient oriented x3 Cognition (Neuro): normal cognition Extrem: General: Yes normal to inspection and Yes no pedal edema Results Labs CBC and Chem 7: 11/05/20 02:34 11/05/20 02:35 Labs: Laboratory Results - last 24 hr 11/04/20 11/04/20 11/04/20 13:49 13:49 13:50 MCV 87.9 MCH 28.4 MCHC 32.3 RDW 14.1 Plt Count 252 MPV 9.6 Immature Gran % (Auto) 0.5 H Neut % (Auto) 75.9 H Lymph % (Auto) 18.3 L [place] % (Auto) 4.1 Eos % (Auto) 0.6 Baso % (Auto) 0.6 Lymph # (Auto) 2.0 [place] # (Auto) 0.4 Eos # (Auto) 0.1 Baso # (Auto) 0.1 Abs Immat Gran (auto) 0.05 H Absolute Neuts (auto) 8.2 Absolute Nucleated RBC 0.000 Nucleated RBC % (auto) 0.0 PT INR APTT D-Dimer Anion Gap Estim Creat Clear Calc Estimated GFR POC Glucose Random Glucose Calcium Magnesium Total Bilirubin Direct Bilirubin AST ALT Alkaline Phosphatase Troponin I High Sens 44.8 H* B-Natriuretic Peptide 82 Total Protein Albumin Lipase TSH 0.91 Urine Color Urine Appearance Urine pH Ur Specific [place] Urine Protein Urine Glucose (UA) Urine Ketones Urine Blood Urine Nitrite Ur Leukocyte Esterase Urine RBC Urine WBC Ur Squamous Epith Cells Urine Bacteria COVID-19 (RUSSELL) COVID-19 [employer] 11/04/20 11/04/20 11/04/20 13:50 13:50 13:50 MCV MCH MCHC RDW Plt Count MPV Immature Gran % (Auto) Neut % (Auto) Lymph % (Auto) [place] % (Auto) Eos % (Auto) Baso % (Auto) Lymph # (Auto) [place] # (Auto) Eos # (Auto) Baso # (Auto) Abs Immat Gran (auto) Absolute Neuts (auto) Absolute Nucleated RBC Nucleated RBC % (auto) PT 12.6 INR 1.1 APTT 35.1 D-Dimer Anion Gap 14 Estim Creat Clear Calc 52.6 Estimated GFR > 60 POC Glucose Random Glucose 223 H Calcium 9.3 D Magnesium 1.9 Total Bilirubin 0.4 Direct Bilirubin 0.2 AST 18 D ALT 28 Alkaline Phosphatase 118 H D Troponin I High Sens B-Natriuretic Peptide Cancelled Total Protein 7.4 Albumin 4.3 Lipase 33 TSH Urine Color Urine Appearance Urine pH Ur Specific [place] Urine Protein Urine Glucose (UA) Urine Ketones Urine Blood Urine Nitrite Ur Leukocyte Esterase Urine RBC Urine WBC Ur Squamous Epith Cells Urine Bacteria COVID-19 (RUSSELL) COVID-19 [employer] 11/04/20 11/04/20 11/04/20 13:50 13:50 17:21 MCV MCH MCHC RDW Plt Count MPV Immature Gran % (Auto) Neut % (Auto) Lymph % (Auto) [place] % (Auto) Eos % (Auto) Baso % (Auto) Lymph # (Auto) [place] # (Auto) Eos # (Auto) Baso # (Auto) Abs Immat Gran (auto) Absolute Neuts (auto) Absolute Nucleated RBC Nucleated RBC % (auto) PT INR APTT D-Dimer 402 Anion Gap Estim Creat Clear Calc Estimated GFR POC Glucose Random Glucose Calcium Magnesium Total Bilirubin Direct Bilirubin AST ALT Alkaline Phosphatase Troponin I High Sens 216.7 H* D B-Natriuretic Peptide Total Protein Albumin Lipase TSH Urine Color Urine Appearance Urine pH Ur Specific [place] Urine Protein Urine Glucose (UA) Urine Ketones Urine Blood Urine Nitrite Ur Leukocyte Esterase Urine RBC Urine WBC Ur Squamous Epith Cells Urine Bacteria COVID-19 (RUSSELL) Negative COVID-19 Clin Com See Note 11/04/20 11/04/20 17:46 19:13 MCV MCH MCHC RDW Plt Count MPV Immature Gran % (Auto) Neut % (Auto) Lymph % (Auto) [place] % (Auto) Eos % (Auto) Baso % (Auto) Lymph # (Auto) [place] # (Auto) Eos # (Auto) Baso # (Auto) Abs Immat Gran (auto) Absolute Neuts (auto) Absolute Nucleated RBC Nucleated RBC % (auto) PT INR APTT D-Dimer Anion Gap Estim Creat Clear Calc Estimated GFR POC Glucose 115 Random Glucose Calcium Magnesium Total Bilirubin Direct Bilirubin AST ALT Alkaline Phosphatase Troponin I High Sens B-Natriuretic Peptide Total Protein Albumin Lipase TSH Urine Color YELLOW Urine Appearance CLEAR Urine pH 6.0 Ur Specific [place] <= 1.005 Urine Protein NEG Urine Glucose (UA) NEG Urine Ketones NEG Urine Blood TRACE Urine Nitrite NEG Ur Leukocyte Esterase NEG Urine RBC 1-4 Urine WBC 0 Ur Squamous Epith Cells TRACE Urine Bacteria TRACE COVID-19 (RUSSELL) COVID-19 Clin Com Imaging Radiologist's Impressions: Impressions Chest X-Ray 11/04/20 13:10 IMPRESSION: Unremarkable chest exam. Chest CTA 11/04/20 14:44 IMPRESSION: 1. No acute abnormality. No evidence of pulmonary embolism. 2. Emphysematous change of lungs. 3. Large volume of coronary artery calcification. Pacemaker leads in the heart. VTE: negative Assessment and Plan (1) NSTEMI (non-ST elevated myocardial infarction): Status: Acute (2) Palpitations: Status: Acute 75-year-old female with past medical history of hypertension, hyperlipidemia, pacemaker placement, who presents to the hospital with back pain found to have elevated troponin # NSTEMI - atypical presentation but has elevated troponin - pain in the back occurred after she went up 3 flights of stairs - troponin increased from 40s to 200s - currently no active chest pain - EKG showing - continue heparin drip - echocardiogram - cardiology consult # SVT - rhythm strips appears to show SVT/atrial flutter - will consult Cardiology - echocardiogram # hypertension - continue lisinopril # hypothyroidism - continue levothyroxine # diabetes - continue home insulin - low-dose sliding scale insulin - diabetic diet Patient on clopidogrel for unclear etiology DVT prophylaxis: Heparin GGT
[2020-11-04] MEDS: Gabapentin 100 MG CAPSULE PO (23:21)
[2020-11-04] MEDS: Donepezil HCl 5 MG TABLET PO (23:21)
[2020-11-04] MEDS: Insulin Glargine,Hum.rec.anlog 100 UNIT/ML 10 ML VIAL 14 UNIT SUBCUT (23:21)
[2020-11-04 23:29] LABS: Glucose, Whole Blood 180 mg/dL (60-115)
[2020-11-05] VITALS (9 sets, daily range): BP systolic 117–180; BP diastolic 62–86; PULSE 58–69; RESP 18–20; TEMP 36–37.1; O2SAT 92–98
--- NOTE | 2020-11-05 | ECG_ITS ---
Test Reason : STEMI Blood Pressure : / mmHG Vent. Rate : 060 BPM Atrial Rate : 060 BPM P-R Int : 248 ms QRS Dur : 094 ms QT Int : 492 ms P-R-T Axes : 000 -41 153 degrees QTc Int : 492 ms Atrial-paced rhythm with prolonged AV conduction Left axis deviation Left ventricular hypertrophy with repolarization abnormality Inferior infarct (cited on or before 04-NOV-2020) Abnormal ECG When compared with ECG of 04-NOV-2020 13:08, Electronic atrial pacemaker has replaced Sinus rhythm T wave inversion more evident in Anterolateral leads Referred By: Andrew Anton Electronically Signed By:Abhijeet Aldana
[2020-11-05] MEDS: Acetaminophen 325 MG TABLET 650 MG PO (01:49)
[2020-11-05 02:40] LABS: MANUAL DIFF FLAG NO
[2020-11-05 02:44] LABS: Basophils Absolute Auto 0.1 X10*3/uL (0.0-0.2); Basophils Percent Auto 0.6 % (0-2); Eosinophils Absolute Auto 0.2 X10*3/uL (0.0-0.4); Eosinophils Percent Auto 1.6 % (0-4); Hematocrit 44.4 % (37-47); Hemoglobin 14.6 g/dl (12.0-16.0); Imm Gran Abs Auto 0.03 X10*3/uL (0.00-0.03); Imm Gran Pct Auto 0.3 % (0.0-0.4); Lymphocytes Absolute Auto 3.2 X10*3/uL (1.2-4.9); Mean Corpuscular HGB Conc 32.9 g/dl (31.0-35.0); Mean Corpuscular Hemoglobin 28.8 pg (27.0-33.0); Mean Corpuscular Volume 87.6 fL (80-98); Mean Platelet Volume 9.8 fL (9.4-12.3); Monocytes Absolute Auto 0.5 X10*3/uL (0.1-1.2); Monocytes Percent Auto 5.5 % (2-11); Neutrophils Absolute Auto 5.6 X10*3/uL (2.0-8.3); Platelet Count 220 X10*3/uL (160-400); Red Blood Count 5.07 X10*6/uL (4.20-5.50); Red Cell Distribution Width 14.4 % (11.0-16.0); White Blood Count 9.5 X10*3/uL (4.8-10.8)
[2020-11-05 03:32] LABS: PTT Heparin Drip 122.6 SEC (53-77.9)
[2020-11-05 03:49] LABS: Anion Gap 14 (12-20); Blood Urea Nitrogen 15 mg/dL (9-16); Calcium 9.2 mg/dL (8.4-10.2); Carbon Dioxide 25 mmol/L (22-29); Chloride 106 mmol/L (96-108); Creatinine Clr Calc Pharmacy 58.9; Estimated Glomerular Filt Rate > 60; Glucose Random 138 mg/dL (60-115); Sodium 141 mmol/L (135-145)
[2020-11-05 04:49] LABS: PTT Heparin Drip 52.1 SEC (53-77.9)
[2020-11-05 07:28] LABS: Glucose, Whole Blood 125 mg/dL (60-115)
--- NOTE | 2020-11-05 08:52 | HO.PM.IMPN ---
Subjective Subjective Date of Service: 11/05/20 Interval History: Seen in f/u for NSTEMI, no chest pain, no plapitation, Physical Exam Vital Signs: Vital Signs: Last Vital Signs Temp 97.8 F 11/05/20 07:40 Pulse 60 11/05/20 07:40 Resp 18 11/05/20 07:40 BP 146/62 H 11/05/20 07:40 Pulse Ox 93 11/05/20 07:40 Body Mass Index 28.0 Const: Other: Constitutional Awake and Alert, No apparent distress Neck Supple, No lymphadenopathy Cardiovascular RRR, No M/R/G, S1 S2, No S3 S4, No pedal edema Respiratory Lungs clear, No respiratory distress Gastrointestinal Non tender, Non-distended Skin No rash Neurological Alert & oriented x2 Psychological Appropriate affect Objective Data Current Medications Generic Name Dose Route Start Last Admin Trade Name Freq PRN Reason Stop Dose Admin Acetaminophen 650 mg 11/04/20 22:35 11/05/20 01:49 Acetaminophen 325 Mg Tablet PO 650 mg Q6H PRN Administration Pain, Mild (Pain Scale 1-3) Allopurinol 100 mg 11/05/20 09:00 Allopurinol 100 Mg Tablet PO DAILY [facility] Clopidogrel Bisulfate 75 mg 11/05/20 09:00 Clopidogrel Bisulfate 75 Mg Tablet PO DAILY [facility] Cyanocobalamin 1,000 mcg 11/05/20 09:00 Cyanocobalamin (Vitamin B-12) 1,000 Mcg Tablet PO DAILY [facility] Docusate Sodium 100 mg 11/04/20 22:35 Docusate Sodium 100 Mg Capsule PO DAILY PRN Constipation Donepezil HCl 5 mg 11/04/20 22:35 11/04/20 23:21 Donepezil Hcl 5 Mg Tablet PO 5 mg BEDTIME [facility] Administration Gabapentin 100 mg 11/04/20 22:35 11/04/20 23:21 Gabapentin 100 Mg Capsule PO 100 mg BID [facility] Administration Heparin Sodium (Porcine) 2,800 unit 11/04/20 19:19 Heparin Sodium,Porcine 5,000 Unit/Ml Vial 40 unit/kg (2800 unit) IVPUSH BOLUS PRN 40 unit/kg - Heparin Protocol Heparin Sodium (Porcine) 5,600 unit 11/04/20 19:19 Heparin Sodium,Porcine 5,000 Unit/Ml Vial 80 unit/kg (5600 unit) IVPUSH BOLUS PRN 80 unit/kg - Heparin Protocol Heparin Sodium/Sodium Chloride 25,000 unit in 250 mls @ 0 mls/hr 11/04/20 19:30 11/05/20 04:57 IVCONT 8 units/kg/hr .Q0M [facility] 5.6 mls/hr Titration Protocol Per Protocol Insulin Glargine 14 unit 11/04/20 23:00 11/04/20 23:21 Insulin Glargine,Hum.Rec.Anlog 100 Unit/Ml 10 Ml Vial SUBCUT 14 unit BEDTIME [facility] Administration Insulin Human Lispro 0 unit 11/05/20 07:30 11/05/20 07:55 Insulin Lispro 100 Unit/Ml 3 Ml Vial SUBCUT Not Given QIDACHS [facility] Protocol Levothyroxine Sodium 125 mcg 11/05/20 09:00 Levothyroxine Sodium 125 Mcg Tablet PO DAILY [facility] Lisinopril 40 mg 11/05/20 09:00 Lisinopril 40 Mg Tablet PO DAILY [facility] Protocol Non-Formulary Medication 10 mg 11/04/20 22:35 Rosuvastatin [Crestor] PO BEDTIME [facility] Ondansetron HCl 4 mg 11/04/20 22:35 Ondansetron Hcl 4 Mg/2 Ml Vial IVPUSH Q8H PRN Nausea and Vomiting Pharmacy Consult 1 each 11/04/20 13:24 Consult Rx Perform Med Rec MISCELLANE ONCE PRN Consult order Pyridoxine HCl 100 mg 11/05/20 09:00 Pyridoxine Hcl (Vitamin B6) 50 Mg Tablet PO DAILY [facility] Sodium Chloride 3 ml 11/05/20 00:00 11/05/20 00:00 0.9 % Sodium Chloride Flush 3 Ml Syringe IVFLUSH 3 ml QSHIFT [facility] Administration Labs CBC & Chem 7: 11/05/20 02:34 11/05/20 02:35 Assessment and Plan (1) NSTEMI (non-ST elevated myocardial infarction): Status: Acute (2) Palpitations: Status: Acute Assessment and Plan: 75-year-old female with past medical history of hypertension, hyperlipidemia, pacemaker placement, who presents to the hospital with back pain found to have elevated troponin # NSTEMI--trop 46 to 216 and atypical presentation - atypical presentation but has elevated troponin - pain in the back occurred after she went up 3 flights of staris -No signficant ECG changes -repeat ECG today -medical therapy with ASA, BB, Lipitor (will check nature of statin allergy) -Echo -Cardioogy to asses for further risk startification # SVT, close review looks more of Aflutter - Cardiology reviewing and will make further advise - echocardiogram # hypertension - continue lisinopril # hypothyroidism - continue levothyroxine # diabetes - continue home insulin - low-dose sliding scale insulin - diabetic diet Patient on clopidogrel for unclear etiology DVT prophylaxis: Heparin GGT
[2020-11-05] MEDS: lisinopriL 40 MG TABLET PO (08:54)
[2020-11-05] MEDS: Clopidogrel Bisulfate 75 MG TABLET PO (08:54)
[2020-11-05] MEDS: Pyridoxine HCl (Vitamin B6) 50 MG TABLET 100 MG PO (08:54)
[2020-11-05] MEDS: allopurinoL 100 MG TABLET PO (08:54)
[2020-11-05] MEDS: 0.9 % Sodium Chloride Flush 3 ML SYRINGE IVFLUSH ×3 (08:54→21:11)
[2020-11-05] MEDS: Gabapentin 100 MG CAPSULE PO ×2 (08:54→21:11)
[2020-11-05] MEDS: Levothyroxine Sodium 125 MCG TABLET PO (08:54)
[2020-11-05] MEDS: Cyanocobalamin (Vitamin B-12) 1,000 MCG TABLET 1000 MCG PO (08:54)
[2020-11-05] MEDS: Aspirin 81 MG TAB.CHEW PO (09:38)
[2020-11-05] MEDS: Metoprolol Tartrate 25 MG TABLET PO ×2 (09:38→21:11)
--- NOTE | 2020-11-05 09:59 | MHC.CM.PN ---
Addendum entered by Rivka Rico 11/05/20 12:29: PER PAPERWORK PROVIDED BY PT, PTS DAUGHTER THUAN IS HER LEGAL GUARDIAN. PT ALSO HAD A MOLST FORM INCLUDED IN THE PAPERWORK THAT INDICATES SHE IS A FULL CODE. COPIES WERE MADE, SCANNED INTO [employer] AND PLACED ON CHART. CM MET WITH PTS DAUGHTER/LEGAL GUARDIAN, WHO ARRIVED A BEDSIDE FOR A VISIT. SHE CONFIRMS SHE IS THE GUARDIAN AND THE PT DOES RESIDE AT [facility]. SHE HOPES TO BE ABLE TO TRANSPORT THE PT AT DC BUT WILL CHECK WITH THE [facility] TO ENSURE THEIR CURRENT POLICIES AROUND COVID-19 WILL ALLOW THIS. ANOTHER IMM WAS GIVEN TO THE GUARDIAN PT WILL DC BACK TO [facility] TRANSPORT TBD. DAUGHTER VS CHAIR JUAN Original Note: CM MET WITH PT WHO REPORTS SHE RESIDES AT [facility]. SHE REPORTS THERE ARE NURSES AND AIDES AVAILABLE TO ASSIST PRN HOWEVER SHE IS PRIMARILY INDEPENDENT WITH SELF CARE AND DOES NOT REQUIRE DME. PT REPORTS HER DAUGHTER, THUAN, IS HER HCP AND HER PCP IS HUBERT SARABIA IMM DELIVERED CURRENT DC PLAN IS TO RETURN TO [facility]. PTS DAUGHTER THUAN ([phone]) WILL TRANSPORT.
[2020-11-05 10:20] LABS: Troponin-I High Sensitivity 161.3 ng/L (<3.5-17.0)
[2020-11-05 11:09] LABS: Glucose, Whole Blood 277 mg/dL (60-115)
[2020-11-05 11:34] LABS: PTT Heparin Drip 46.5 SEC (53-77.9)
[2020-11-05] MEDS: Insulin Lispro 100 UNIT/ML 3 ML VIAL SUBCUT ×2 (11:34→21:10)
[2020-11-05] MEDS: Heparin Sodium,Porcine 5,000 UNIT/ML VIAL 2800 UNIT IVPUSH (11:50)
--- NOTE | 2020-11-05 15:29 | PM.CNCAR ---
History of Present Illness History of Present Illness Date of Service: 11/05/20 Requesting physician: Andrew Anton Chief complaint: NSTEMI, SVT Narrative: 75-year-old female with background history of hypertension, coronary artery disease, sick sinus syndrome for which she has permanent pacemaker in March 2019 COPD, dementia who has been living in a assisted and presented with reported chest discomfort and tachycardia. It appears she was in supraventricular tachycardia versus atrial tachycardia based on the ECG strips provided by EMS. It appears she was admitted in November 2019 with similar presentation at [facility] when she was in supraventricular tachycardia at 180 beats per minute which improved with vagal maneuvers. She had presyncope at that time. She also had chest tightness reported during that admission. Device interrogation at that time showed concern for atrial tachycardia versus supraventricular tachycardia. She is now presenting similarly with reported chest discomfort and was noticed to be in supraventricular tachycardia/atrial tachycardia. She has cognitive impairment and dementia and could not give much history. She was asymptomatic at the time of interview. She has been started on heparin for abnormal troponin levels. Denying any other issues right now and quite comfortable. [facility] Past Medical History Medical History Cataract Dementia Diabetes Diverticulitis Frequent UTI HTN (hypertension) Hyperlipidemia Hypothyroid IDDM (insulin dependent diabetes mellitus) Macular degeneration Myocardial infarct Nephrolithiasis Nephrolithiasis Pacemaker Surgical History Surgical History H/O left knee surgery Status post lumbar spine surgery for decompression of spinal cord Social History Social History Household Members: Children Household Members Other:: daughter Housing: House Do you presently have visiting nurse or other home services: No Patient Tobacco Use Status: Current everyday Tobacco user Tobacco use type: Cigarette Cigarettes Per Day: 4 Years Smoked: 54 Smoked in Last 30 Days: Yes Patient Interested in Nicotine Replacement: No Use of substances other than those prescribed or required for medical reasons: No Currently Displaying Signs/Symptoms of Drug Intoxication Withdrawal: No Have you been hit, kicked, punched, or otherwise hurt by someone within the past year? If so, by whom?: No Do you feel safe in your current relationship?: No Current Relationship Is there a partner from a previous relationship who is making you feel unsafe now?: No Are you made to feel afraid or neglected: No Advance Directives: Yes Advance Directives Information Provided: Yes Advance Directives on File: No Advance Directives Date on File: 11/05/20 Do you have thoughts of harming others: None Do you have a plan to hurt others: No Plan Recently lost weight without trying: Yes How much weight loss: 2-13 pounds Eating poorly because of decreased appetite: No Nutrition screen score: 3 Nutrition Risks: No Nutritional Risk service: No Current occupational status: retired Meds Allergies Allergy/AdvReac Type Severity Reaction Status Date / Time atorvastatin Allergy Unknown Unknown Verified 10/28/20 10:54 azithromycin Allergy Unknown Unknown Verified 10/28/20 10:54 ceftriaxone Allergy Unknown Unknown Verified 10/28/20 10:54 cephalexin Allergy Unknown Unknown Verified 10/28/20 10:54 citalopram Allergy Unknown Unknown Verified 10/28/20 10:54 levofloxacin Allergy Unknown Unknown Verified 10/28/20 10:54 metformin Allergy Unknown Unknown Verified 10/28/20 10:54 nitrofurantoin Allergy Unknown Unknown Verified 10/28/20 10:54 oxycodone Allergy Unknown Unknown Verified 10/28/20 10:54 penicillin V Allergy Unknown Unknown Verified 10/28/20 10:54 pioglitazone Allergy Unknown Unknown Verified 10/28/20 10:54 repaglinide Allergy Unknown unknown Verified 10/28/20 10:54 rosuvastatin [Crestor] Allergy Unknown Unknown Verified 10/28/20 10:54 sertraline Allergy Unknown Unknown Verified 10/28/20 10:54 simvastatin Allergy Unknown Unknown Verified 10/28/20 10:54 sulfacetamide Allergy Unknown Unknown Verified 10/28/20 10:54 Cefuroxime Sodium Allergy Unknown Unknown Uncoded 03/25/20 12:54 Active Medications: Current Medications Generic Name Dose Route Start Last Admin Trade Name Freq PRN Reason Stop Dose Admin Acetaminophen 650 mg 11/04/20 22:35 11/05/20 01:49 Acetaminophen 325 Mg Tablet PO 650 mg Q6H PRN Administration Pain, Mild (Pain Scale 1-3) Allopurinol 100 mg 11/05/20 09:00 11/05/20 08:54 Allopurinol 100 Mg Tablet PO 100 mg DAILY MAGNUS Administration Aspirin 81 mg 11/05/20 09:00 11/05/20 09:38 Aspirin 81 Mg Tab.Chew PO 81 mg DAILY MAGNUS Administration Atorvastatin Calcium 80 mg 11/05/20 21:00 Atorvastatin Calcium 80 Mg Tablet PO BEDTIME MAGNUS Clopidogrel Bisulfate 75 mg 11/05/20 09:00 11/05/20 08:54 Clopidogrel Bisulfate 75 Mg Tablet PO 75 mg DAILY MAGNUS Administration Cyanocobalamin 1,000 mcg 11/05/20 09:00 11/05/20 08:54 Cyanocobalamin (Vitamin B-12) 1,000 Mcg Tablet PO 1,000 mcg DAILY MAGNUS Administration Docusate Sodium 100 mg 11/04/20 22:35 Docusate Sodium 100 Mg Capsule PO DAILY PRN Constipation Donepezil HCl 5 mg 11/04/20 22:35 11/04/20 23:21 Donepezil Hcl 5 Mg Tablet PO 5 mg BEDTIME MAGNUS Administration Famotidine 40 mg 11/06/20 09:00 Famotidine 20 Mg Tablet PO DAILY MAGNUS Gabapentin 100 mg 11/04/20 22:35 11/05/20 08:54 Gabapentin 100 Mg Capsule PO 100 mg BID MAGNUS Administration Heparin Sodium (Porcine) 2,800 unit 11/04/20 19:19 11/05/20 11:50 Heparin Sodium,Porcine 5,000 Unit/Ml Vial 40 unit/kg (2800 unit) 2,800 unit IVPUSH Administration BOLUS PRN 40 unit/kg - Heparin Protocol Heparin Sodium (Porcine) 5,600 unit 11/04/20 19:19 Heparin Sodium,Porcine 5,000 Unit/Ml Vial 80 unit/kg (5600 unit) IVPUSH BOLUS PRN 80 unit/kg - Heparin Protocol Heparin Sodium/Sodium Chloride 25,000 unit in 250 mls @ 0 mls/hr 11/04/20 19:30 11/05/20 11:51 IVCONT 10 units/kg/hr .Q0M MAGNUS 7 mls/hr Titration Protocol Per Protocol Insulin Glargine 14 unit 11/04/20 23:00 11/04/20 23:21 Insulin Glargine,Hum.Rec.Anlog 100 Unit/Ml 10 Ml Vial SUBCUT 14 unit BEDTIME MAGNUS Administration Insulin Human Lispro 0 unit 11/05/20 07:30 11/05/20 11:34 Insulin Lispro 100 Unit/Ml 3 Ml Vial SUBCUT 6 unit QIDACHS MAGNUS Administration Protocol Levothyroxine Sodium 125 mcg 11/05/20 09:00 11/05/20 08:54 Levothyroxine Sodium 125 Mcg Tablet PO 125 mcg DAILY COUNT INCLUDES THE [facility] Administration Lisinopril 40 mg 11/05/20 09:00 11/05/20 08:54 Lisinopril 40 Mg Tablet PO 40 mg DAILY COUNT INCLUDES THE [facility] Administration Protocol Metoprolol Tartrate 25 mg 11/05/20 09:05 11/05/20 09:38 Metoprolol Tartrate 25 Mg Tablet PO 25 mg BID COUNT INCLUDES THE [facility] Administration Protocol Non-Formulary Medication 10 mg 11/04/20 22:35 Rosuvastatin [Crestor] PO BEDTIME COUNT INCLUDES THE [facility] Ondansetron HCl 4 mg 11/04/20 22:35 Ondansetron Hcl 4 Mg/2 Ml Vial IVPUSH Q8H PRN Nausea and Vomiting Pharmacy Consult 1 each 11/04/20 13:24 Consult Rx Perform Med Rec MISCELLANE ONCE PRN Consult order Pyridoxine HCl 100 mg 11/05/20 09:00 11/05/20 08:54 Pyridoxine Hcl (Vitamin B6) 50 Mg Tablet PO 100 mg DAILY COUNT INCLUDES THE [facility] Administration Sodium Chloride 3 ml 11/05/20 00:00 11/05/20 08:54 0.9 % Sodium Chloride Flush 3 Ml Syringe IVFLUSH 3 ml QSHIFT COUNT INCLUDES THE [facility] Administration Vitamin D 125 mcg 11/06/20 09:00 Cholecalciferol (Vitamin D3) 25 Mcg Tablet PO DAILY COUNT INCLUDES THE [facility] Home Medications Medication Instructions Recorded Confirmed Last Taken Type cyanocobalamin (vitamin B-12) 1,000 mcg PO DAILY 11/04/20 11/04/20 11/03/20 History donepezil 5 mg PO BEDTIME 11/04/20 11/04/20 11/03/20 History lisinopril 40 mg PO DAILY 11/04/20 11/04/20 11/03/20 History rosuvastatin [Crestor] 10 mg PO BEDTIME 11/04/20 11/04/20 11/03/20 History Physical Exam Vital Signs: Vital Signs: Last Vital Signs Temp 96.8 F 11/05/20 11:23 Pulse 69 11/05/20 11:23 Resp 20 11/05/20 11:23 BP 125/78 11/05/20 11:23 Pulse Ox 98 11/05/20 11:23 Body Mass Index 28.0 GENERAL APPEARANCE: in no acute distress, pleasant. NECK: no carotid bruit, no jugular venous distention. SKIN: no suspicious lesions, warm and dry. HEART: no murmurs, regular rate and rhythm. LUNGS: clear to auscultation bilaterally. ABDOMEN: soft, nontender. EXTREMITIES: no edema. PERIPHERAL PULSES: equal. Results Labs and Meds Result diagrams: 11/05/20 02:34 11/05/20 02:35 Lab results: Laboratory Results - last 24 hr 11/04/20 11/04/20 11/04/20 17:21 17:46 19:13 WBC RBC Hgb Hct MCV MCH MCHC RDW Plt Count MPV Immature Gran % (Auto) Neut % (Auto) Lymph % (Auto) [place] % (Auto) Eos % (Auto) Baso % (Auto) Lymph # (Auto) [place] # (Auto) Eos # (Auto) Baso # (Auto) Abs Immat Gran (auto) Absolute Neuts (auto) Absolute Nucleated RBC Nucleated RBC % (auto) PTT (Heparin Protocol) Sodium Potassium Chloride Carbon Dioxide Anion Gap BUN Creatinine Estim Creat Clear Calc Estimated GFR POC Glucose 115 Random Glucose Calcium Troponin I High Sens 216.7 H* D Urine Color YELLOW Urine Appearance CLEAR Urine pH 6.0 Ur Specific [place] <= 1.005 Urine Protein NEG Urine Glucose (UA) NEG Urine Ketones NEG Urine Blood TRACE Urine Nitrite NEG Ur Leukocyte Esterase NEG Urine RBC 1-4 Urine WBC 0 Ur Squamous Epith Cells TRACE Urine Bacteria TRACE 11/04/20 11/05/20 11/05/20 23:20 02:34 02:34 WBC 9.5 RBC 5.07 Hgb 14.6 Hct 44.4 MCV 87.6 MCH 28.8 MCHC 32.9 RDW 14.4 Plt Count 220 MPV 9.8 Immature Gran % (Auto) 0.3 Neut % (Auto) 59.0 Lymph % (Auto) 33.0 [place] % (Auto) 5.5 Eos % (Auto) 1.6 Baso % (Auto) 0.6 Lymph # (Auto) 3.2 [place] # (Auto) 0.5 Eos # (Auto) 0.2 Baso # (Auto) 0.1 Abs Immat Gran (auto) 0.03 Absolute Neuts (auto) 5.6 Absolute Nucleated RBC 0.000 Nucleated RBC % (auto) 0.0 PTT (Heparin Protocol) 122.6 H* Sodium Potassium Chloride Carbon Dioxide Anion Gap BUN Creatinine Estim Creat Clear Calc Estimated GFR POC Glucose 180 H Random Glucose Calcium Troponin I High Sens Urine Color Urine Appearance Urine pH Ur Specific [place] Urine Protein Urine Glucose (UA) Urine Ketones Urine Blood Urine Nitrite Ur Leukocyte Esterase Urine RBC Urine WBC Ur Squamous Epith Cells Urine Bacteria 11/05/20 11/05/20 11/05/20 02:35 04:33 07:24 WBC RBC Hgb Hct MCV MCH MCHC RDW Plt Count MPV Immature Gran % (Auto) Neut % (Auto) Lymph % (Auto) [place] % (Auto) Eos % (Auto) Baso % (Auto) Lymph # (Auto) [place] # (Auto) Eos # (Auto) Baso # (Auto) Abs Immat Gran (auto) Absolute Neuts (auto) Absolute Nucleated RBC Nucleated RBC % (auto) PTT (Heparin Protocol) 52.1 L D Sodium 141 Potassium 4.0 Chloride 106 Carbon Dioxide 25 Anion Gap 14 BUN 15 Creatinine 0.76 Estim Creat Clear Calc 58.9 Estimated GFR > 60 POC Glucose 125 H Random Glucose 138 H D Calcium 9.2 Troponin I High Sens Urine Color Urine Appearance Urine pH Ur Specific [place] Urine Protein Urine Glucose (UA) Urine Ketones Urine Blood Urine Nitrite Ur Leukocyte Esterase Urine RBC Urine WBC Ur Squamous Epith Cells Urine Bacteria 11/05/20 11/05/20 11/05/20 09:24 11:05 11:06 WBC RBC Hgb Hct MCV MCH MCHC RDW Plt Count MPV Immature Gran % (Auto) Neut % (Auto) Lymph % (Auto) [place] % (Auto) Eos % (Auto) Baso % (Auto) Lymph # (Auto) [place] # (Auto) Eos # (Auto) Baso # (Auto) Abs Immat Gran (auto) Absolute Neuts (auto) Absolute Nucleated RBC Nucleated RBC % (auto) PTT (Heparin Protocol) 46.5 L Sodium Potassium Chloride Carbon Dioxide Anion Gap BUN Creatinine Estim Creat Clear Calc Estimated GFR POC Glucose 277 H Random Glucose Calcium Troponin I High Sens 161.3 H* Urine Color Urine Appearance Urine pH Ur Specific [place] Urine Protein Urine Glucose (UA) Urine Ketones Urine Blood Urine Nitrite Ur Leukocyte Esterase Urine RBC Urine WBC Ur Squamous Epith Cells Urine Bacteria Imaging Radiologist's impression: Impressions Chest CTA 11/04/20 14:44 IMPRESSION: 1. No acute abnormality. No evidence of pulmonary embolism. 2. Emphysematous change of lungs. 3. Large volume of coronary artery calcification. Pacemaker leads in the heart. VTE: negative Assessment and Plan (1) NSTEMI (non-ST elevated myocardial infarction): Status: Acute (2) SVT (supraventricular tachycardia): Status: Acute 75-year-old female with background of dementia, COPD, reported history of coronary artery disease as well as sick sinus syndrome for which she has pacemaker presenting with chest tightness and elevated troponin. She likely has a type 2 event. Her heart rate was close to 180 beats per minute. She had a very similar episode in November 2019 when she was seen at [facility] by Cardiology and had device interrogation which showed supraventricular tachycardia versus atrial tachycardia. I think currently the troponin elevation is due to type 2 event. The heparin can be stopped. Hemodynamically stable. If she stays stable she can be discharged home and can follow with her primary instructor technical training Dr. Chauhan. Thank you for allowing me to participate in the care of your patient. Please feel free to contact me if you have any questions. Procedures Date of Service Date of Service: 11/05/20
[2020-11-05 16:18] LABS: Glucose, Whole Blood 134 mg/dL (60-115)
[2020-11-05 20:56] LABS: Glucose, Whole Blood 189 mg/dL (60-115)
[2020-11-05] MEDS: Insulin Glargine,Hum.rec.anlog 100 UNIT/ML 10 ML VIAL 14 UNIT SUBCUT (21:10)
[2020-11-05] MEDS: Donepezil HCl 5 MG TABLET PO (21:11)
--- NOTE | 2020-11-05 22:35 | CA_ITS ---
Transthoracic Echocardiogram Patient (Last, First, Middle): China Carter, Gender: Female Date of : 1945 Age: 75 Procedure Date: 11/05/2020 Procedure Type: Transthoracic Echocardiogram Location: [facility] [place] Height: 160.02 cm Weight: 71.67 kg BSA: 1.75 m2 Heart Rate: bpm BP: 155 / 72 mmHg Fire Prevention Inspector: Referring MD: Jonh Wolfe MD Symptoms: NSTEMI Study Quality: Good ECG Rhythm: Sinus Conclusions: - Normal left ventricular size and systolic function. There is severely increased left ventricular wall thickness. The visually estimated ejection fraction is between 55-60%. - E/E prime ratio is between 8 and 15 consistent with indeterminate filling pressures. - The basal inferior segment is akinetic. - There is mild dilatation of the ascending aorta. Findings Left Ventricle Normal left ventricular size and systolic function. There is severely increased left ventricular wall thickness. The visually estimated ejection fraction is between 55-60%. There is evidence of regional wall motion abnormalities. Abnormal diastolic function is noted. Spectral Doppler is indicative of an impaired relaxation filling pattern. E/E prime ratio is between 8 and 15 consistent with indeterminate filling pressures. Wall Motion Rest Echo Findings The basal inferior segment is akinetic. Right Ventricle Normal right ventricular cavity size and systolic function. Atria The left atrium is likely dilated. Aortic Valve There is a normal trileaflet aortic valve. There is mild calcification of the aortic valve. There is mild thickening of the aortic valve. There is no aortic valve stenosis. There is no aortic valve regurgitation. Mitral Valve The mitral valve appears normal. There is mild to moderate mitral valve regurgitation. There is no mitral valve stenosis. Pulmonic Valve The pulmonic valve is likely normal. Tricuspid Valve Normal tricuspid valve structure and function. There is trace tricuspid valve regurgitation. Normal right atrial pressure. There is no evidence of pulmonary hypertension. Great Vessels There is mild dilatation of the ascending aorta. The visualized portions of the pulmonary artery and branches are normal. Venous The inferior vena cava is normal in size and collapses greater than 50% with inspiration. Pericardium/Pleural There is no evidence of pericardial effusion. Prior Study Comparison No prior study available for comparison. Measurements 2D Linear Measurements IVSd: 1.52 0.6-0.9/0.6-1.0 cm LVIDd: 3.99 3.9-5.3/4.2-5.9 cm LVIDd Index: 2.28 2.4-3.2/2.2-3.1 cm/m2 LVIDs: 2.96 2.0-3.6 cm LVPWd: 1.34 0.7-1.1 cm Ao Root: 3.60 2.1-3.5 cm LA Diam: 3.70 2.7-3.8/3.0-4.0 cm LAIDs Index: 2.11 1.5-2.3 cm/m2 LV Mass: 268.21 67-162/88-224 g LV Mass Index: 153.27 43-95/49-115 g/m2 LVOT Diam: 2.10 3.0+(-)1.3 cm Mitral Valve MV Pk E: 0.54 MV PK A: 1.14 MV Decel Time: 252.00 E/A: 0.50 E'Lateral: 4.35 E'Medial: 5.44 E/E' Med: 10.00 E/E' Lat: 12.50 PHT: 74.00 MVA PHT: 2.97 Decel [place]: 2.16 Aortic Valve AoV Pk Kiko: 1.33 AoV Mn Kiko: 0.82 AoV VTI: 0.36 AoV Pk Grad: 7.00 Aov Mn Grad: 3.00 LUIS FERNANDO Cont.VTI: 1.89 LVOT LVOT Pk Kiko: 0.74 LVOT Mn Kiko: 0.48 LVOT VTI: 0.20 LVOT Pk Grad: 2.00 LVOT Mn Grad: 1.00 LVOT Diam: 2.10 LVOT Area: 3.46 Diastolic Function MV Pk E: 0.54 MV Pk A: 1.14 E/A: 0.50 E'Medial: 5.44 E/E' Med: 10.00 E' Laterial: 4.35 E/E' Lat: 12.50 Tricuspid Valve TR Pk Kiko: 2.24 TR Pk Grad: 20.00 RA Press: 3.00 RVSP: 23.00 Great Vessels Aorta Ao Root-2D: 3.60 2.0-3.7 cm Ao Asc: 4.00 2.1-3.4 cm Pulmonary Valve PV Pk Kiko: 0.94 Peak PV Grad: 4.00 Updated in Other Vendor System with Status of Final Abhijeet Aldana MD electronically signed on 11/05/2020 10:27:43 PM with status of Final
[2020-11-06 04:00] VITALS: BP 104/57; PULSE 61; RESP 18; TEMP 36.6; O2SAT 91
[2020-11-06 06:59] VITALS: BP 131/69; PULSE 60; RESP 18; TEMP 36.6; O2SAT 93
[2020-11-06 07:00] LABS: Glucose, Whole Blood 145 mg/dL (60-115)
[2020-11-06] MEDS: Gabapentin 100 MG CAPSULE PO (09:25)
[2020-11-06] MEDS: lisinopriL 40 MG TABLET PO (09:25)
[2020-11-06] MEDS: 0.9 % Sodium Chloride Flush 3 ML SYRINGE IVFLUSH (09:25)
[2020-11-06] MEDS: Famotidine 20 MG TABLET 40 MG PO (09:25)
[2020-11-06] MEDS: Cholecalciferol (Vitamin D3) 25 MCG TABLET 125 MCG PO (09:25)
[2020-11-06] MEDS: Levothyroxine Sodium 125 MCG TABLET PO (09:25)
[2020-11-06] MEDS: allopurinoL 100 MG TABLET PO (09:25)
[2020-11-06] MEDS: Cyanocobalamin (Vitamin B-12) 1,000 MCG TABLET 1000 MCG PO (09:25)
[2020-11-06] MEDS: Metoprolol Tartrate 25 MG TABLET PO (09:25)
[2020-11-06] MEDS: Pyridoxine HCl (Vitamin B6) 50 MG TABLET 100 MG PO (09:25)
[2020-11-06] MEDS: Clopidogrel Bisulfate 75 MG TABLET PO (09:25)
[2020-11-06] MEDS: Aspirin 81 MG TAB.CHEW PO (09:25)
--- NOTE | 2020-11-06 09:46 | P.DS_ITS ---
DS: Providers Provider Date of Service: 11/06/20 Date of admission: 11/04/20 20:35 Primary care physician: Ashley Morales MD Consults: 11/04/20 22:35 Consult to Cardiology Routine Consulting Provider: Abhijeet Aldana Reason for consultation: NSTEMI, SVT Has provider been notified: No DS: Diagnosis Discharge Diagnosis (1) SVT (supraventricular tachycardia): Status: Acute (2) Type 2 MN (myocardial infarction): Status: Acute (3) Hypothyroid: Status: Acute (4) Diabetes: Status: Acute Problem details: A1C < 8 DS: Medications Discharge Medications Home Medications: Home Medications Medication Instructions Recorded Confirmed cyanocobalamin (vitamin B-12) 1,000 mcg PO DAILY 11/04/20 11/04/20 donepezil 5 mg PO BEDTIME 11/04/20 11/04/20 lisinopril 40 mg PO DAILY 11/04/20 11/04/20 rosuvastatin [Crestor] 10 mg PO BEDTIME 11/04/20 11/04/20 Previous Rx's Medication Instructions Recorded cholecalciferol (vitamin D3) 125 125 mcg PO DAILY #90 cap 03/30/20 mcg (5,000 unit) capsule clopidogrel 75 mg tablet 75 mg PO DAILY #90 tab 03/30/20 levothyroxine 125 mcg tablet 125 mcg PO DAILY #90 tab 06/18/20 blood sugar diagnostic #100 ea 09/01/20 blood-glucose meter #100 ea 09/01/20 lancets 33 gauge #100 ea 09/01/20 allopurinol 100 mg tablet 100 mg PO DAILY 90 Days #90 tab 09/16/20 insulin degludec 100 unit/mL (3 20 unit SUBCUT BEDTIME #15 ml 09/16/20 mL) subcutaneous pen pyridoxine (vitamin B6) 100 mg 100 mg PO DAILY 90 Days #90 tab 09/16/20 tablet famotidine 40 mg tablet 40 mg PO DAILY #90 tab 11/04/20 metoprolol succinate 25 mg 25 mg PO DAILY #90 tab 11/04/20 tablet,extended release 24 hr gabapentin 100 mg capsule 100 mg PO BID #180 cap 11/05/20 DS: Summary Hospital Course Hospital Course: Patient presented with chest pain, palpitation and was noted to be and tachycardia with heart rate as high as 180 EKG showed what looks like a supraventricular tachycardia. She was also noted to have elevated troponin I level consistent with type [address] elevation myocardial infarction. Patient was a presumptively admitted for myocardial infarction (NSTEMI) and was initiated on aspirin heparin and Cardiology consultation was requested. She was evaluated by Dr. Aldana with the following observation/recommendation She likely has a type 2 event. Her heart rate was close to 180 beats per minute. She had a very similar episode in November 2019 when she was seen at [facility] by Cardiology and had device interrogation which showed supraventricular tachycardia versus atrial tachycardia. I think currently the troponin elevation is due to type 2 event. The heparin can be stopped. Hemodynamically stable. If she stays stable she can be discharged home and can follow with her primary gas meter reader Dr. Chauhan Since hospitalization the patient has been rather stable with no further episode of tachycardia no chest pain and she remains chest pain-free note palpitation and the plan therefore is for the patient to follow up with her primary gas meter reader Dr. Chauhan. Torprolol is increased to 50 daily to help suppress SVTs Time Spent with Patient Time attestation: Total time spent providing and/or coordinating discharge services: Discharge coordination time: Greater than 30 minutes Quality: Stroke Does the patient have a stroke diagnosis?: No Physical Exam Vital Signs: Vital Signs: Last Vital Signs Temp 97.9 F 11/06/20 06:59 Pulse 60 11/06/20 06:59 Resp 18 11/06/20 06:59 BP 131/69 11/06/20 06:59 Pulse Ox 93 11/06/20 06:59 Body Mass Index 28.0 Constitutional Awake and Alert, No apparent distress Neck Supple, No lymphadenopathy Cardiovascular RRR, No M/R/G, S1 S2, No S3 S4, No pedal edema Respiratory Lungs clear, No respiratory distress Gastrointestinal Non tender, Non-distended Skin No rash Neurological Alert & oriented x3 Psychological Appropriate affect DS: Data Data Completed and Pending Labs on day of discharge: Laboratory Results - last 24 hr 11/05/20 11/05/20 11/05/20 09:24 11:05 11:06 PTT (Heparin Protocol) 46.5 L POC Glucose 277 H Troponin I High Sens 161.3 H* 11/05/20 11/05/20 11/06/20 16:14 20:53 06:57 PTT (Heparin Protocol) POC Glucose 134 H 189 H 145 H Troponin I High Sens Discharge Plan Discharge Anticipated Discharge Date/Time: 11/06/20 09:45 Patient Disposition: Home, Self-Care Discharge Diagnosis: Supraventricular tachycardia Referrals: [facility] [Outside] - 1 Week Ashley Morales MD [Primary Care Provider] - 1 Week Discharge Medications: Continued levothyroxine 125 mcg tablet 125 mcg PO DAILY Qty: 90 RF: 3 (DME) OneTouch Ultra Blue Test Strip Strip See Rx Instructions .ROUTE .MEDSUPPLY Qty: 100 RF: 4 (DME) blood-glucose meter [OneTouch Ultra2 Meter] Misc See Rx Instructions .ROUTE .MEDSUPPLY Qty: 100 RF: 3 (DME) lancets [OneTouch Delica Lancets] 33 gauge misc See Rx Instructions .ROUTE .MEDSUPPLY Qty: 100 RF: 5 famotidine 40 mg tablet 40 mg PO DAILY Qty: 90 RF: 0 gabapentin 100 mg capsule 100 mg PO BID Qty: 180 RF: 3 lisinopril 40 mg Tablet 40 mg PO DAILY RF: 0 donepezil 5 mg tablet 5 mg PO BEDTIME RF: 0 rosuvastatin [Crestor] 10 mg tablet 10 mg PO BEDTIME RF: 0 cyanocobalamin (vitamin B-12) 1,000 mcg Tablet 1,000 mcg PO DAILY RF: 0 clopidogrel 75 mg tablet 75 mg PO DAILY Qty: 90 RF: 0 cholecalciferol (vitamin D3) 125 mcg (5,000 unit) capsule 125 mcg PO DAILY Qty: 90 RF: 0 Tresiba FlexTouch U-100 100 unit/mL (3 mL) insulin pen 20 unit subcut BEDTIME Qty: 15 RF: 4 allopurinol 100 mg tablet 100 mg PO DAILY 90 Days Qty: 90 RF: 1 pyridoxine (vitamin B6) 100 mg tablet 100 mg PO DAILY 90 Days Qty: 90 RF: 1 Changed metoprolol succinate 25 mg tablet extended release 24 hr 50 mg PO DAILY Qty: 90 RF: 0 Discharge Orders: Discharge Order (Routine); Ordered 11/06/20 Ordered By: Andrew Anton Diet: advance to usual diet Activity on Discharge: As tolerated Stand Alone Forms: Patient Portal Discharge page Care Plan Goals: Prevent rehospitalization from supraventricular tachycardia. Health Concerns: Supraventricular tachycardia cause an increase in troponin I. Plan of Treatment: Continue all your present medication and follow-up with your primary care care physician and your gas meter reader Please note that Toprol XL has been changed to 50 mg daily (or double the current dose) Assessment: See above
[2020-11-06 11:03] LABS: Glucose, Whole Blood 188 mg/dL (60-115)
[2020-11-06 11:08] VITALS: BP 110/72; PULSE 70; RESP 18; TEMP 36.4; O2SAT 95
--- NOTE | 2020-11-06 11:08 | MHC.CM.PN ---
Patient has been medically cleared for dc to return to LTC @ [facility] today at 1PM, via Daughter/Guardian/Marian's transport (MD aware). Last IMM addressed on 11/05/20.Marian is aware of and in agreement with the dc plan. DC summary has been successfully faxed to Nurse/Jaxon at [facility], at his request to [phone].
[2020-11-06 11:19] VITALS: PULSE 73
[2020-11-06] MEDS: Metoprolol Succinate ER 25 MG TAB.ER.24H PO (11:19)
[2020-11-06] MEDS: Insulin Lispro 100 UNIT/ML 3 ML VIAL SUBCUT (11:23)
== END 2020-11-06 14:06 | disposition home or self-care (01) | DRG 282 ==
LOC: HO.ED 16:37 → HO.EDOVER 20:41 → HO.IMC 22:10
PROVIDERS: Emergency Medicine; Admitting Provider Internal Medicine; Emergency Provider Internal Medicine; PCP Internal Medicine; Visit Provider Internal Medicine
DX: I47.1 Supraventricular tachycardia (principal); I21.A1 Myocardial infarction type 2; I25.2 Old myocardial infarction; F03.90 Unspecified dementia, unspecified severity, without behavioral disturbance, psychotic disturbance, mood disturbance, and anxiety; E03.9 Hypothyroidism, unspecified; E78.5 Hyperlipidemia, unspecified; Z95.0 Presence of cardiac pacemaker; F17.210 Nicotine dependence, cigarettes, uncomplicated; Z71.6 Tobacco abuse counseling; Z20.822 Contact with and (suspected) exposure to COVID-19; E11.9 Type 2 diabetes mellitus without complications; I25.10 Atherosclerotic heart disease of native coronary artery without angina pectoris; Z88.0 Allergy status to penicillin; Z88.6 Allergy status to analgesic agent; Z79.4 Long term (current) use of insulin; Z79.02 Long term (current) use of antithrombotics/antiplatelets; Z79.890 Hormone replacement therapy; Z79.899 Other long term (current) drug therapy
CPT/HCPCS: 36415; 71045; 71275; 80048; 80076; 81001; 82947; 83690; 83735; 83880; 84443; 84484; 85025; 85379; 85610; 85730; 87635; 93005; 93306; 96365; 96375; 99284; 99285; J3475; Q9967

== ENCOUNTER 2020-11-22 16:57 | Emergency (ER) | payer MEDICARE, MEDICAID, SELFPAY ==
--- NOTE | ~2020-11-22 | CT_ITS ---
EXAMINATION: CT ABDOMEN AND PELVIS WITHOUT CONTRAST CLINICAL INFORMATION: Right flank pain COMPARISON: CT angiography chest 11/04/2020, CT abdomen pelvis 08/15/2020. TECHNIQUE: Multidetector volumetric imaging was performed from the superior aspect of the liver through the pubic symphysis. Sagittal and coronal reformatted images were obtained on the technologist's workstation. This CT examination was performed using dose optimization techniques as appropriate, variously including the following: *Automated exposure control *Adjustment of mA and/or kV according to patient size (this includes techniques or standardized protocols for targeted exams where dose is matched to indication/reason for exam; i.e. extremities or head) *Use of iterative reconstruction technique DLP: 497 mGy-cm FINDINGS: LUNG BASES: Mild bibasilar dependent atelectasis of the lungs is noted. Partial visualization is made of multifocal coronary artery calcific atherosclerotic plaques. The heart size is normal. No pericardial thickening or fluid collections are identified. LIVER, GALLBLADDER, AND BILIARY TREE: The liver is normal in size, shape, and attenuation. No focal hepatic lesion or biliary ductal dilatation is present. The gallbladder is unremarkable with no evidence of radiopaque gallstones, gallbladder wall thickening, or obvious pericholecystic inflammatory changes. PANCREAS: Unremarkable. SPLEEN: Unremarkable. ADRENAL GLANDS: Mild bilateral diffuse fullness of the adrenal glands is present and unchanged compared with 08/15/2020 with the adrenal glands measuring up to 4 mm in width with each individual limb, at the upper limits of normal. KIDNEYS AND URETERS: 3 punctate (less than 2 mm) calculi are present within the right renal pelvis, predominantly within the superior right renal pelvis. 7 punctate calculi are present in the left renal pelvis measuring up to 2 mm diameter. Additionally, scattered atherosclerotic calcifications are present diffusely including calcific atherosclerotic plaques associated with the renal arteries. No ureterectasis or hydronephrosis is identified. No perinephric inflammatory changes are visualized. A 7 mm rounded low-density (9 Hounsfield unit) focus with minimal peripheral linear calcification is present along the medial aspect of the superior pole the right kidney unchanged compared with 08/15/2020 most consistent with a simple cyst requiring no additional imaging follow-up. BLADDER: Physiologically decompressed. GASTROINTESTINAL TRACT: Moderate diverticulosis of the sigmoid colon is noted. The cecum resides within the right hemipelvis. The appendix is normal in appearance. The terminal ileum is normal in appearance. No free intraperitoneal fluid or gas collections are identified. ABDOMINAL WALL: No significant hernia is appreciated. LYMPH NODES: Normal. VASCULAR: Moderate marked diffuse calcific atherosclerosis is noted. An irregular, possibly ulcerative atherosclerotic plaque is noted on the basis of irregular calcifications within the infrarenal abdominal aorta where focal dilatation to 3.0 cm in AP dimension is noted. No retroperitoneal fluid collections or inflammatory changes are noted. PELVIC VISCERA: Uterus is absent. No adnexal lesions are identified. No pelvic phleboliths are visualized. OSSEOUS STRUCTURES: Partial right lateral sacralization of the presumed L5 vertebral body is noted. Multilevel endplate and facet hypertrophic changes of the lumbar spine are present. No vertebral body compression deformities are visualized. CT/CT abdomen pelvis wo con IMPRESSION: 1. Unenhanced CT the abdomen and pelvis without evidence of acute abnormalities. 2. Multiple punctate (less than 3 mm) bilateral renal calculi. No evidence of obstructing calculi. No hydronephrosis or ureterectasis. 3. Normal appendix. No free intraperitoneal fluid or gas collections. 4. Moderate colonic diverticulosis. 5. Status post hysterectomy. 6. Infrarenal abdominal aortic aneurysm measuring 3.0 cm in maximum AP dimension. Recommend follow-up every 3 years to assess for interval growth.
[2020-11-22 17:01] VITALS: BP 149/64; BP 156/100; PULSE 60; PULSE 612; RESP 13; TEMP 37.1; O2SAT 95; O2SAT 97; BMI 24.7
--- NOTE | 2020-11-22 17:13 | ECG_ITS ---
Test Reason : DIZZINESS Blood Pressure : / mmHG Vent. Rate : 060 BPM Atrial Rate : 060 BPM P-R Int : 240 ms QRS Dur : 106 ms QT Int : 482 ms P-R-T Axes : -29 -26 134 degrees QTc Int : 482 ms Atrial-paced rhythm with prolonged AV conduction Inferior infarct (cited on or before 04-NOV-2020) ST & T wave abnormality, consider lateral ischemia Abnormal ECG When compared with ECG of 05-NOV-2020 09:08, T wave inversion less evident in Lateral leads Referred By: Deirdre Shaw Electronically Signed By:Abhjieet Aldana
--- NOTE | 2020-11-22 17:15 | ED_ITS ---
HPI - General Adult General Chief complaint: Dizziness Stated complaint: rt flank pain Time Seen by Provider: 11/22/20 17:02 Source: patient and EMS Mode of arrival: EMS Limitations: no limitations History of Present Illness HPI narrative: Patient comes from assisted living facility by ambulance to patient states that she was out in the sun for an hour, then started feeling lightheaded. Patient states that she has been drinking 4-5 cups of water, then had an episode of vomiting. On arrival, patient reported to the triage nurse that she had blurry vision, she denied it to me. However, she states that she still feels lightheaded, denies the room spinning, denies loss of balance. Patient states that her worst complaint at this time is right-sided flank pain. Patient states that she has had history of kidney stones in the past. Related Data Home Medications Medication Instructions Recorded Confirmed cyanocobalamin (vitamin B-12) 1,000 mcg PO DAILY 11/04/20 11/04/20 donepezil 5 mg PO BEDTIME 11/04/20 11/04/20 lisinopril 40 mg PO DAILY 11/04/20 11/04/20 rosuvastatin [Crestor] 10 mg PO BEDTIME 11/04/20 11/04/20 Previous Rx's Medication Instructions Recorded cholecalciferol (vitamin D3) 125 125 mcg PO DAILY #90 cap 03/30/20 mcg (5,000 unit) capsule clopidogrel 75 mg tablet 75 mg PO DAILY #90 tab 03/30/20 levothyroxine 125 mcg tablet 125 mcg PO DAILY #90 tab 06/18/20 blood sugar diagnostic #100 ea 09/01/20 blood-glucose meter #100 ea 09/01/20 lancets 33 gauge #100 ea 09/01/20 allopurinol 100 mg tablet 100 mg PO DAILY 90 Days #90 tab 09/16/20 insulin degludec 100 unit/mL (3 20 unit SUBCUT BEDTIME #15 ml 09/16/20 mL) subcutaneous pen pyridoxine (vitamin B6) 100 mg 100 mg PO DAILY 90 Days #90 tab 09/16/20 tablet famotidine 40 mg tablet 40 mg PO DAILY #90 tab 11/04/20 gabapentin 100 mg capsule 100 mg PO BID #180 cap 11/05/20 metoprolol succinate 50 mg PO DAILY #90 tab 11/06/20 ciprofloxacin 500 mg PO ONCE 7 Days #35 ml 11/22/20 Allergies Allergy/AdvReac Type Severity Reaction Status Date / Time atorvastatin Allergy Unknown Unknown Verified 10/28/20 10:54 azithromycin Allergy Unknown Unknown Verified 10/28/20 10:54 ceftriaxone Allergy Unknown Unknown Verified 10/28/20 10:54 cephalexin Allergy Unknown Unknown Verified 10/28/20 10:54 citalopram Allergy Unknown Unknown Verified 10/28/20 10:54 levofloxacin Allergy Unknown Unknown Verified 10/28/20 10:54 metformin Allergy Unknown Unknown Verified 10/28/20 10:54 nitrofurantoin Allergy Unknown Unknown Verified 10/28/20 10:54 oxycodone Allergy Unknown Unknown Verified 10/28/20 10:54 penicillin V Allergy Unknown Unknown Verified 10/28/20 10:54 pioglitazone Allergy Unknown Unknown Verified 10/28/20 10:54 repaglinide Allergy Unknown unknown Verified 10/28/20 10:54 rosuvastatin [Crestor] Allergy Unknown Unknown Verified 10/28/20 10:54 sertraline Allergy Unknown Unknown Verified 10/28/20 10:54 simvastatin Allergy Unknown Unknown Verified 10/28/20 10:54 sulfacetamide Allergy Unknown Unknown Verified 10/28/20 10:54 Cefuroxime Sodium Allergy Unknown Unknown Uncoded 03/25/20 12:54 Review of Systems Review of Systems: Constitutional : No Weight loss, No Fever, No Chills, No Night Sweats, No Fatigue, No Malaise ENT/Mouth : No Hearing loss, No Ear Pain, No Nasal Congestion, No Sinus Pain, No Hoarseness, No sore throat, No Rhinorrhea, No Swallowing Difficulty Eyes: No Eye Pain, No Swelling, No Redness, No Foreign Body, No Discharge, No Vi jaylyn Changes Cardiovascular : No Chest Pain, No SOB, No Dyspnea on Exertion, No Orthopnea, No Edema, No Palpitations Respiratory : No Cough, No Sputum, No Wheezing, No Smoke Exposure, No Dyspnea Gastrointestinal : Nausea and vomiting every day, No Diarrhea, No Constipation, complaining of right-sided flank pain, No Hematochezia, No Melena Genitourinary : no irregular bleeding, No Dysuria, No Urinary Frequency, No Hematuria, No Urinary Incontinence, No Urgency, No Flank Pain, No Urinary Flow Changes, No Hesitancy Musculoskeletal : No joint pain, No Myalgias, No Joint Swelling Skin : No Skin Lesions, No rash Neuro : No Weakness, No Numbness, No Paresthesias, No Loss of Consciousness, denies headache, complaining of feeling lightheaded Psych : No Anxiety/Panic, No Depression, No SI/HI/AH/VH, No Social Issues, Heme/Lymph: No Bruising, No Bleeding,No Lymphadenopathy Endocrine : No Polyuria, No Polydipsia, No Temperature Intolerance [facility] Past Medical History Medical History Cataract Dementia Diabetes Diverticulitis Frequent UTI HTN (hypertension) HTN (hypertension) Hyperlipidemia Hypothyroid IDDM (insulin dependent diabetes mellitus) Macular degeneration Myocardial infarct Nephrolithiasis Nephrolithiasis Pacemaker Surgical History H/O left knee surgery Status post lumbar spine surgery for decompression of spinal cord Social History Social History Household Members: Children Household Members Other:: daughter Housing: House Do you presently have visiting nurse or other home services: No Patient Tobacco Use Status: Current everyday Tobacco user Tobacco use type: Cigarette Cigarettes Per Day: 4 Years Smoked: 54 Advance Directives: Yes Advance Directives on File: Yes Advance Directives Date on File: 11/05/20 service: No Current occupational status: retired Physical Exam Vital Signs: Vital Signs: Last Vital Signs Temp 98.7 F 11/22/20 17:01 Pulse 79 11/22/20 18:00 Resp 16 11/22/20 18:00 BP 137/84 11/22/20 18:00 Pulse Ox 97 11/22/20 18:00 Body Mass Index 24.7 Appearance: Alert. Oriented X3. No acute distress. Eyes: Pupils equal, round and reactive to light. ENT: Pharynx normal. Neck: Normal inspection. Neck supple. No lymph nodes noted. No crepitus CVS: Normal heart rate and rhythm. Pulses normal. Normal S1 and S2 Respiratory: No respiratory distress. Breath sounds normal. No Wheezing. No rales Abdomen: Soft, mild discomfort to palpation over the right lower quadrant, no CVA tenderness on either side, No rigidity. No distention Skin: Skin warm and dry. Normal skin color. Normal skin turgor. Extremities: No lower extremity edema. No lower extremity edema. No Lacerations. No Rash Neuro: Oriented X 3. No motor deficit. No sensory deficit. Moving all extermities. No slurred speech. Course Course Course Narrative: Patient is feeling much better, not having any vomiting, almost no pain. I discussed the CT scan with the patient and her daughter. Patient does have a mild UTI. Patient has a very extensive list of allergies with unknown side effect. Per previous records from the facility where the patient lives, patient used ciprofloxacin in August and had no adverse reaction, patient's daughter confirmed this. Therefore, we will treat her UTI with ciprofloxacin Medical Decision Making Lab Data Result diagrams: 11/22/20 17:37 11/22/20 18:12 Labs: Lab Results 11/22/20 11/22/20 11/22/20 Range/Units 17:37 17:37 17:38 WBC 10.7 (4.8-10.8) X10*3/uL RBC 5.06 (4.20-5.50) X10*6/uL Hgb 14.6 (12.0-16.0) g/dl Hct 44.7 (37-47) % MCV 88.3 (80-98) fL MCH 28.9 (27.0-33.0) pg MCHC 32.7 (31.0-35.0) g/dl RDW 14.6 (11.0-16.0) % Plt Count 234 (160-400) X10*3/uL MPV 9.9 (9.4-12.3) fL Immature Gran % (Auto) 0.3 (0.0-0.4) % Neut % (Auto) 63.7 (45-73) % Lymph % (Auto) 28.9 (20-40) % Whiteside % (Auto) 5.2 (2-11) % Eos % (Auto) 1.1 (0-4) % Baso % (Auto) 0.8 (0-2) % Lymph # (Auto) 3.1 (1.2-4.9) X10*3/uL Whiteside # (Auto) 0.6 (0.1-1.2) X10*3/uL Eos # (Auto) 0.1 (0.0-0.4) X10*3/uL Baso # (Auto) 0.1 (0.0-0.2) X10*3/uL Abs Immat Gran (auto) 0.03 (0.00-0.03) X10*3/uL Absolute Neuts (auto) 6.8 (2.0-8.3) X10*3/uL Absolute Nucleated RBC 0.000 (0.0-0.012) X10*3/uL Nucleated RBC % (auto) 0.0 (0.0-0.2) /100WBC PT 12.8 (10.8-13.0) SEC INR 1.1 (0.9-1.1) Sodium (135-145) mmol/L Potassium (3.3-5.1) mmol/L Chloride (96-108) mmol/L Carbon Dioxide (22-29) mmol/L Anion Gap (12-20) BUN (9-16) mg/dL Creatinine (0.5-1.4) mg/dL Estim Creat Clear Calc Estimated GFR Random Glucose (60-115) mg/dL Calcium (8.4-10.2) mg/dL Total Bilirubin (0.0-1.0) mg/dL Direct Bilirubin (0.0-0.5) mg/dL AST (5-31) U/L ALT (0-31) U/L Alkaline Phosphatase (39-117) U/L Troponin I High Sens 9.5 D (<3.5-17.0) ng/L Total Protein (6.5-8.0) g/dL Albumin (3.5-5.0) g/dL Urine Color Urine Appearance Urine pH (5.0-8.0) Ur Specific [place] (1.005-1.025) Urine Protein (NEG-TRACE) MG/DL Urine Glucose (UA) (NEG) MG/DL Urine Ketones (NEG) MG/DL Urine Blood (NEG) Urine Nitrite (NEG) Ur Leukocyte Esterase (NEG) Urine RBC (0) /HPF Urine WBC (0-4) /HPF Ur Squamous Epith Cells /LPF Ur Renal Epithelial Cell /LPF Urine Bacteria /LPF Urine Mucus /LPF 11/22/20 11/22/20 Range/Units 17:38 18:12 WBC (4.8-10.8) X10*3/uL RBC (4.20-5.50) X10*6/uL Hgb (12.0-16.0) g/dl Hct (37-47) % MCV (80-98) fL MCH (27.0-33.0) pg MCHC (31.0-35.0) g/dl RDW (11.0-16.0) % Plt Count (160-400) X10*3/uL MPV (9.4-12.3) fL Immature Gran % (Auto) (0.0-0.4) % Neut % (Auto) (45-73) % Lymph % (Auto) (20-40) % Whiteside % (Auto) (2-11) % Eos % (Auto) (0-4) % Baso % (Auto) (0-2) % Lymph # (Auto) (1.2-4.9) X10*3/uL [place] # (Auto) (0.1-1.2) X10*3/uL Eos # (Auto) (0.0-0.4) X10*3/uL Baso # (Auto) (0.0-0.2) X10*3/uL Abs Immat Gran (auto) (0.00-0.03) X10*3/uL Absolute Neuts (auto) (2.0-8.3) X10*3/uL Absolute Nucleated RBC (0.0-0.012) X10*3/uL Nucleated RBC % (auto) (0.0-0.2) /100WBC PT (10.8-13.0) SEC INR (0.9-1.1) Sodium 141 (135-145) mmol/L Potassium 3.9 (3.3-5.1) mmol/L Chloride 106 (96-108) mmol/L Carbon Dioxide 27 (22-29) mmol/L Anion Gap 12 (12-20) BUN 16 (9-16) mg/dL Creatinine 0.79 (0.5-1.4) mg/dL Estim Creat Clear Calc 53.5 Estimated GFR > 60 Random Glucose 193 H D (60-115) mg/dL Calcium 9.3 (8.4-10.2) mg/dL Total Bilirubin 0.3 (0.0-1.0) mg/dL Direct Bilirubin < 0.2 (0.0-0.5) mg/dL AST 16 (5-31) U/L ALT 22 (0-31) U/L Alkaline Phosphatase 111 (39-117) U/L Troponin I High Sens (<3.5-17.0) ng/L Total Protein 6.8 (6.5-8.0) g/dL Albumin 3.9 (3.5-5.0) g/dL Urine Color YELLOW Urine Appearance CLEAR Urine pH 5.5 (5.0-8.0) Ur Specific [place] <= 1.005 (1.005-1.025) Urine Protein NEG (NEG-TRACE) MG/DL Urine Glucose (UA) NEG (NEG) MG/DL Urine Ketones NEG (NEG) MG/DL Urine Blood TRACE (NEG) Urine Nitrite NEG (NEG) Ur Leukocyte Esterase 2+ H (NEG) Urine RBC 0-2 (0) /HPF Urine WBC 10-14 H (0-4) /HPF Ur Squamous Epith Cells 1+ /LPF Ur Renal Epithelial Cell 1+ /LPF Urine Bacteria 1+ /LPF Urine Mucus 2+ /LPF Imaging Data CT scan - abdomen: Radiologist's impression: COMPARISON: CT angiography chest 11/04/2020, CT abdomen pelvis 08/15/2020. TECHNIQUE: Multidetector volumetric imaging was performed from the superior aspect of the liver through the pubic symphysis. Sagittal and coronal reformatted images were obtained on the technologist's workstation. This CT examination was performed using dose optimization techniques as appropriate, variously including the following: *Automated exposure control *Adjustment of mA and/or kV according to patient size (this includes techniques or standardized protocols for targeted exams where dose is matched to indication/reason for exam; i.e. extremities or head) *Use of iterative reconstruction technique DLP: 497 mGy-cm FINDINGS: LUNG BASES: Mild bibasilar dependent atelectasis of the lungs is noted. Partial visualization is made of multifocal coronary artery calcific atherosclerotic plaques. The heart size is normal. No pericardial thickening or fluid collections are identified. LIVER, GALLBLADDER, AND BILIARY TREE: The liver is normal in size, shape, and attenuation. No focal hepatic lesion or biliary ductal dilatation is present. The gallbladder is unremarkable with no evidence of radiopaque gallstones, gallbladder wall thickening, or obvious pericholecystic inflammatory changes. PANCREAS: Unremarkable. SPLEEN: Unremarkable. ADRENAL GLANDS: Mild bilateral diffuse fullness of the adrenal glands is present and unchanged compared with 08/15/2020 with the adrenal glands measuring up to 4 mm in width with each individual limb, at the upper limits of normal. KIDNEYS AND URETERS: 3 punctate (less than 2 mm) calculi are present within the right renal pelvis, predominantly within the superior right renal pelvis. 7 punctate calculi are present in the left renal pelvis measuring up to 2 mm diameter. Additionally, scattered atherosclerotic calcifications are present diffusely including calcific atherosclerotic plaques associated with the renal arteries. No ureterectasis or hydronephrosis is identified. No perinephric inflammatory changes are visualized. A 7 mm rounded low-density (9 Hounsfield unit) focus with minimal peripheral linear calcification is present along the medial aspect of the superior pole the right kidney unchanged compared with 08/15/2020 most consistent with a simple cyst requiring no additional imaging follow-up. BLADDER: Physiologically decompressed. GASTROINTESTINAL TRACT: Moderate diverticulosis of the sigmoid colon is noted. The cecum resides within the right hemipelvis. The appendix is normal in appearance. The terminal ileum is normal in appearance. No free intraperitoneal fluid or gas collections are identified. ABDOMINAL WALL: No significant hernia is appreciated. LYMPH NODES: Normal. VASCULAR: Moderate marked diffuse calcific atherosclerosis is noted. An irregular, possibly ulcerative atherosclerotic plaque is noted on the basis of irregular calcifications within the infrarenal abdominal aorta where focal dilatation to 3.0 cm in AP dimension is noted. No retroperitoneal fluid collections or inflammatory changes are noted. PELVIC VISCERA: Uterus is absent. No adnexal lesions are identified. No pelvic phleboliths are visualized. OSSEOUS STRUCTURES: Partial right lateral sacralization of the presumed L5 vertebral body is noted. Multilevel endplate and facet hypertrophic changes of the lumbar spine are present. No vertebral body compression deformities are visualized. CT/CT abdomen pelvis wo con IMPRESSION: 1. Unenhanced CT the abdomen and pelvis without evidence of acute abnormalities. 2. Multiple punctate (less than 3 mm) bilateral renal calculi. No evidence of obstructing calculi. No hydronephrosis or ureterectasis. 3. Normal appendix. No free intraperitoneal fluid or gas collections. 4. Moderate colonic diverticulosis. 5. Status post hysterectomy. 6. Infrarenal abdominal aortic aneurysm measuring 3.0 cm in maximum AP dimension. Recommend follow-up every 3 years to assess for interval growth. ECG Data Attestation: I personally reviewed and interpreted this ECG as follows: (Atrial paced rhythm, prolonged AV conduction, heart rate 60, nonspecific T-wave changes, QTC 482, no EKG changes compared to EKG from 11/05/2020) Discharge Plan Discharge Clinical Impression: Acute flank pain, Acute UTI Patient Disposition: Home, Self-Care Instructions: Urinary Tract Infection in Older Adults (ED) Additional Instructions: Please follow-up with your primary care physician tomorrow. If you have any wo rsening or new symptoms, please return to the emergency room or call 911 Prescriptions: New ciprofloxacin 500 mg/5 mL suspension,microcapsule recon 500 mg PO ONCE 7 Days Qty: 35 RF: 0 No Action levothyroxine 125 mcg tablet 125 mcg PO DAILY Qty: 90 RF: 3 (DME) OneTouch Ultra Blue Test Strip Strip See Rx Instructions .ROUTE .MEDSUPPLY Qty: 100 RF: 4 (DME) blood-glucose meter [[employer] Ultra2 Meter] Misc See Rx Instructions .ROUTE .MEDSUPPLY Qty: 100 RF: 3 (DME) lancets [DormzyTouch Delica Lancets] 33 gauge misc See Rx Instructions .ROUTE .MEDSUPPLY Qty: 100 RF: 5 famotidine 40 mg tablet 40 mg PO DAILY Qty: 90 RF: 0 gabapentin 100 mg capsule 100 mg PO BID Qty: 180 RF: 3 lisinopril 40 mg Tablet 40 mg PO DAILY RF: 0 donepezil 5 mg tablet 5 mg PO BEDTIME RF: 0 rosuvastatin [Crestor] 10 mg tablet 10 mg PO BEDTIME RF: 0 cyanocobalamin (vitamin B-12) 1,000 mcg Tablet 1,000 mcg PO DAILY RF: 0 metoprolol succinate 25 mg tablet extended release 24 hr 50 mg PO DAILY Qty: 90 RF: 0 clopidogrel 75 mg tablet 75 mg PO DAILY Qty: 90 RF: 0 cholecalciferol (vitamin D3) 125 mcg (5,000 unit) capsule 125 mcg PO DAILY Qty: 90 RF: 0 Tresiba FlexTouch U-100 100 unit/mL (3 mL) insulin pen 20 unit subcut BEDTIME Qty: 15 RF: 4 allopurinol 100 mg tablet 100 mg PO DAILY 90 Days Qty: 90 RF: 1 pyridoxine (vitamin B6) 100 mg tablet 100 mg PO DAILY 90 Days Qty: 90 RF: 1 Interventions: ED Discharge Assessment Last Done: 11/22/20 19:46 Discharge Date/Time: 11/22/20 19:47
[2020-11-22 17:43] LABS: MANUAL DIFF FLAG NO
[2020-11-22 17:46] LABS: Glucose Urine UA NEG (NEG); Leukocyte Esterase Urine 2+ (NEG); Nitrite Urine NEG (NEG); PH 5.5 (5.0-8.0); Specific Gravity - Urine <= 1.005 (1.005-1.025); UACC Culture Trigger YES; Urine Blood TRACE (NEG); Urine Ketones NEG (NEG); Urine Protein NEG (NEG-TRACE)
[2020-11-22 17:47] LABS: Basophils Absolute Auto 0.1 X10*3/uL (0.0-0.2); Basophils Percent Auto 0.8 % (0-2); Eosinophils Absolute Auto 0.1 X10*3/uL (0.0-0.4); Eosinophils Percent Auto 1.1 % (0-4); Hematocrit 44.7 % (37-47); Hemoglobin 14.6 g/dl (12.0-16.0); Imm Gran Abs Auto 0.03 X10*3/uL (0.00-0.03); Imm Gran Pct Auto 0.3 % (0.0-0.4); Lymphocytes Absolute Auto 3.1 X10*3/uL (1.2-4.9); Lymphocytes Percent Auto 28.9 % (20-40); Mean Corpuscular HGB Conc 32.7 g/dl (31.0-35.0); Mean Corpuscular Hemoglobin 28.9 pg (27.0-33.0); Mean Corpuscular Volume 88.3 fL (80-98); Mean Platelet Volume 9.9 fL (9.4-12.3); Monocytes Absolute Auto 0.6 X10*3/uL (0.1-1.2); Monocytes Percent Auto 5.2 % (2-11); Neutrophils Absolute Auto 6.8 X10*3/uL (2.0-8.3); Neutrophils Percent Auto 63.7 % (45-73); Platelet Count 234 X10*3/uL (160-400); Red Blood Count 5.06 X10*6/uL (4.20-5.50); Red Cell Distribution Width 14.6 % (11.0-16.0); White Blood Count 10.7 X10*3/uL (4.8-10.8)
[2020-11-22 17:49] LABS: Appearance Urine CLEAR; Color Urine YELLOW
[2020-11-22 17:51] LABS: INTERNATIONAL NORM RATIO 1.1 (0.9-1.1); Prothrombin Time 12.8 SEC (10.8-13.0)
[2020-11-22 17:57] LABS: Bacteria Urine 1+ /LPF; Mucus Urine 2+ /LPF; RBC Urine 0-2 /HPF (0); Renal Epithelial Cells Urine 1+ /LPF; Squamous Epithelial Cell Urine 1+ /LPF
[2020-11-22 18:00] VITALS: BP 137/84; PULSE 79; RESP 16; O2SAT 97
[2020-11-22 18:18] LABS: Troponin-I High Sensitivity 9.5 ng/L (<3.5-17.0)
[2020-11-22] MEDS: 0.9 % Sodium Chloride 1,000 ML 999 ML IVCONT (18:38)
[2020-11-22 18:47] LABS: Alanine Aminotransferase 22 U/L (0-31); Albumin Level 3.9 g/dL (3.5-5.0); Alkaline Phosphatase 111 U/L (39-117); Anion Gap 12 (12-20); Aspartate Amino Transferase 16 U/L (5-31); Bilirubin Direct < 0.2 mg/dL (0.0-0.5); Bilirubin Total 0.3 mg/dL (0.0-1.0); Blood Urea Nitrogen 16 mg/dL (9-16); Calcium 9.3 mg/dL (8.4-10.2); Carbon Dioxide 27 mmol/L (22-29); Chloride 106 mmol/L (96-108); Creatinine Clr Calc Pharmacy 53.5; Estimated Glomerular Filt Rate > 60; Glucose Random 193 mg/dL (60-115); Potassium 3.9 mmol/L (3.3-5.1); Sodium 141 mmol/L (135-145); Total Protein 6.8 g/dL (6.5-8.0)
[2020-11-22] MEDS: Morphine Sulfate 2 MG/ML CARTRIDGE IVPUSH (19:11)
== END 2020-11-22 19:47 | disposition home or self-care (01) ==
PROVIDERS: Emergency Provider Emergency Medicine
DX: N39.0 Urinary tract infection, site not specified (principal); N20.0 Calculus of kidney; E11.9 Type 2 diabetes mellitus without complications; I10 Essential (primary) hypertension; Z79.4 Long term (current) use of insulin; Z79.899 Other long term (current) drug therapy; Z87.442 Personal history of urinary calculi
CPT/HCPCS: 36415; 74176; 80048; 80076; 81001; 81003; 84484; 85025; 85610; 87086; 87088; 87147; 87186; 93005; 96361; 96374; 99284; J2270

== ENCOUNTER 2021-02-10 11:10 | Outpatient (REF) | payer MEDICARE, MEDICAID, SELFPAY ==
--- NOTE | 2021-02-10 11:31 | MHC.AU.HFU ---
Hearing Instrument Follow-Up- Binaural Date of Visit: 02/10/21 Right Ear: Manager Neonatal: Phonak Model: AUDEO M70-13T Serial Number: [id number] Repair Warranty: 03/30/2023 Loss and Damage Warranty: USED 10/05/2020 Battery Size: 13 Color: GRAPHITE JONES Produce Runner: 2M Type of Dome: SMALL POWER Type of Wax Guard: CERUSHIELD Dispensed By: [facility] Date of Fittin01/12/2020 Left Ear: Manager Neonatal: Phonak Model: AUDEO M70-13T Serial Number: [id number] Repair Warranty: 03/30/2023 Loss and Damage Warranty: 03/30/2023 Battery Size: 13 Color: GRAPHITE JONES Produce Runner: 2M Type of Dome: SMALL POWER Type of Wax Guard: CERUSHIELD Dispensed By: [facility] Date of Fittin01/12/2020 Follow-Up Summary: Patient arrived to citrus picker replacement right hearing aid. It was re-programmed to last settings and programmed with the left instrument. Patient reported the sound was good and she did not feel any additional adjustments were necessary. She did not have the hearing aids paired to her phone previously. Recommendations: Hearing instrument follow-up or maintenance as needed. Please contact our clinic with any questions or concerns. Diagnosis Code(s): Primary Diagnosis: H90.3 Bilateral Sensorineural Hearing Loss Signature: Provider: Anthony Rogers, [facility]
== END 2021-02-10 11:11 | disposition home or self-care (01) ==
LOC: HO.HAP 11:10
PROVIDERS: Visit Provider Internal Medicine
DX: Z13.89 Encounter for screening for other disorder (principal)

== ENCOUNTER 2021-03-09 10:01 | Outpatient (REF) | payer MEDICARE, MEDICAID, SELFPAY ==
--- NOTE | ~2021-03-09 | US_ITS ---
EXAMINATION: US RETROPERITONEAL LIMITED (RENAL ONLY) CLINICAL INFORMATION: Calculus of kidney. COMPARISON: CT abdomen and pelvis 11/22/2020. TECHNIQUE: Real-time imaging of the kidneys. FINDINGS: RIGHT KIDNEY: 10.1 x 4.5 x 5.3 cm (SAG x AP x TRV). The kidney is normal in size, contour, and echogenicity. Renal cortical thickness is normal. At the upper pole, a 7 mm nonobstructing calculus is seen, with twinkle artifact. At the lower pole, 3 mm and 3 mm nonobstructing calculi are seen, with twinkle artifact. No hydronephrosis. At the upper pole, a 1.2 cm maximal diameter anechoic, simple cyst is seen. At the upper pole peripherally, a 0.6 x 0.5 x 0.8 cm hyperechoic, circumscribed collection is seen, possibly a small and bilateral, or extrarenal of fat adjacent to a small focal cortical defect. Also at the upper pole, a 1.2 cm anechoic, simple cyst is seen. LEFT KIDNEY: 11.8 x 5.6 x 5.9 cm (SAG x AP x TRV). The kidney is normal in size, contour, and echogenicity. No focal parenchymal lesions. At the upper pole, 1.4 cm and 0.7 cm nonobstructing calculi seen. The lower pole, a former nonobstructing calculus is seen. There is very mild hydronephrosis. US/US renal BI IMPRESSION: 1. Nonobstructing bilateral renal calculi are seen, as above. No right hydronephrosis is seen. There is very mild left hydronephrosis. 2. 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 This is less well appreciated on the accompanying CT examination. 3. A 1.2 cm right renal upper pole cyst is seen.
== END 2021-03-09 10:02 | disposition home or self-care (01) ==
LOC: HO.HMGCX 10:01
PROVIDERS: PCP Internal Medicine; Visit Provider Urology
DX: N20.0 Calculus of kidney (principal)
CPT/HCPCS: 76775

== ENCOUNTER → 2021-03-22 14:02 | Outpatient (BNVA) | payer MEDICARE, MEDICAID, SELFPAY | PROVIDERS: Visit Provider Urology | DX: N20.0 Calculus of kidney (principal) | CPT/HCPCS: Q3014 ==

== ENCOUNTER → 2021-09-27 10:42 | Outpatient (BNVA) | payer MEDICARE, MEDICAID, SELFPAY | PROVIDERS: PCP Internal Medicine; Visit Provider Urology | DX: N20.0 Calculus of kidney (principal) | CPT/HCPCS: 99212 ==

== ENCOUNTER 2022-06-26 16:58 | Emergency (ER) | payer MEDICARE, MEDICAID, SELFPAY ==
--- NOTE | ~2022-06-26 | CT_ITS ---
EXAMINATION: CT ABDOMEN AND PELVIS WITH CONTRAST CLINICAL INFORMATION: Bilateral flank pain, fever. Rule out bilateral COMPARISON: CT abdomen pelvis 11/22/2020 TECHNIQUE: Multidetector volumetric images were obtained from the superior aspect of the liver through the pubic symphysis following administration 85 mL of Omnipaque 350 intravenous contrast. Sagittal and coronal reformatted images were obtained on the technologist's workstation. Oral contrast: No This CT examination was performed using dose optimization techniques as appropriate, variously including the following: *Automated exposure control *Adjustment of mA and/or kV according to patient size (this includes techniques or standardized protocols for targeted exams where dose is matched to indication/reason for exam; i.e. extremities or head) *Use of iterative reconstruction technique DLP: 430 mGy-cm FINDINGS: LUNG BASES: There is bibasilar atelectasis. The heart size is normal. LIVER, GALLBLADDER, AND BILIARY TREE: The liver is normal in size, shape, and attenuation. There are small hypodense lesions in the right hepatic lobe measuring 7 mm on axial image 13/3 and 5 mm on axial image 17/3 minimal prominence intrahepatic ducts are seen. The gallbladder is unremarkable. The gallbladder is unremarkable with no evidence of radiopaque gallstones, gallbladder wall thickening, or obvious pericholecystic inflammatory changes. PANCREAS: Unremarkable. SPLEEN: Unremarkable. ADRENAL GLANDS: Unremarkable. KIDNEYS AND URETERS: The kidneys are normal in size, shape, and attenuation. No radiopaque calculi seen on this contrast enhanced CT. There is a small cortical defect along the midpole left kidney question scar. There is a 1 cm cyst upper pole right kidney. BLADDER: Unremarkable. GASTROINTESTINAL TRACT: There is a large amount of stool in the rectum and sigmoid colon with mild circumferential mural thickening sigmoid colon likely stercoral colitis. No pericolic fat stranding. Few scattered diverticuli seen throughout the colon but no evidence of diverticulitis. Nonspecific mild prominence of small bowel loops is seen in the right midabdomen. ABDOMINAL WALL: No significant hernia is appreciated. LYMPH NODES: Normal. VASCULAR: Focal atherosclerotic aneurysmal dilatation of mid abdominal aorta measuring 3.3 x 3.1 cm. There is circumferential thrombus within the aneurysm. PELVIC VISCERA: The uterus is not visualized. There is no free fluid. OSSEOUS STRUCTURES: There are degenerative disc changes L5-S1 disc level. CT/CT abdomen pelvis w IV con IMPRESSION: Significant constipation with likely fecal impaction in stercoral colitis. Colonic diverticulosis without any diverticulitis. No obstruction. Nonspecific mild prominence of small bowel loops in the right midabdomen. Infrarenal aortic aneurysm, minimally increased in size with circumferential thrombus. Fleischner guidelines were followed.
--- NOTE | 2022-06-26 17:21 | ED_ITS ---
HPI - Abdominal Pain General Chief Complaint: Urogenital-Female Stated Complaint: ?UTI FROM SNF PER EMS Time Seen by Provider: 06/26/22 17:17 Source: patient and EMS Mode of arrival: EMS Limitations: other (Poor historian) History of Present Illness HPI narrative: 76-year-old female history of kidney stones, diabetes, GERD, dementia, hypothyroidism, hypertension presenting to the emergency department with urinary frequency, urgency, dysuria, lower abdominal pain and severe bilateral flank pain. Patient tells me the symptoms came on suddenly this morning. She tells me she is nervous because she has a history of UTIs and kidney stones. Patient is coming from [facility] facility however no labs or urine tests have been done yet. Patient tells me this feels like her typical UTI. Has been feeling ?feverish and reports chills. Denies chest pain, shortness of breath, nausea, vomiting, headache, vision changes, dizziness Related Data Home Medications Medication Instructions Recorded Confirmed lisinopril 40 mg tablet 40 mg PO DAILY 11/04/20 06/14/22 amlodipine 5 mg tablet 5 mg PO DAILY 12/14/21 06/14/22 levothyroxine 100 mcg tablet 100 mcg PO DAILY 12/14/21 06/14/22 rosuvastatin 20 mg tablet 20 mg PO BEDTIME 12/14/21 06/14/22 Previous Rx's Medication Instructions Recorded blood-glucose meter (OneTouch #100 ea 09/01/20 Ultra2 Meter) insulin degludec 100 unit/mL (3 18 unit (0.18 mL) subcut BEDTIME 07/20/21 mL) subcutaneous pen (Tresiba #15 mL FlexTouch U-100 insulin) pyridoxine (vitamin B6) 100 mg 100 mg PO DAILY 90 days #90 tabs 09/27/21 tablet blood sugar diagnostic #100 ea 10/20/21 lancets 33 gauge (OneTouch Delica #100 ea 10/20/21 Lancets) pen needle, diabetic 33 gauge x #100 ea 11/18/21 (Comfort EZ Pen [place]) cyanocobalamin (vitamin B-12) 1,000 mcg PO DAILY #30 tabs 12/30/21 1,000 mcg tablet blood sugar diagnostic (FreeStyle #100 ea 01/13/22 Lite Strips) cholecalciferol (vitamin D3) 125 125 mcg PO DAILY #90 caps 02/16/22 mcg (5,000 unit) capsule famotidine 40 mg tablet 40 mg PO DAILY #90 tabs 02/16/22 clopidogrel 75 mg tablet 75 mg PO DAILY #90 tabs 03/09/22 donepezil 5 mg tablet 5 mg PO BEDTIME #90 tabs 03/09/22 gabapentin 100 mg capsule 100 mg PO BID #180 caps 03/09/22 metoprolol succinate 25 mg 50 mg PO DAILY #90 tabs 03/09/22 tablet,extended release 24 hr allopurinol 100 mg tablet 100 mg PO DAILY 90 days #90 tabs 03/27/22 aspirin 81 mg capsule 81 mg PO DAILY #30 caps 06/26/22 ciprofloxacin HCl 750 mg tablet 750 mg PO BID 7 days #14 tabs 06/26/22 docusate sodium 100 mg capsule 100 mg PO BID #20 caps 06/26/22 (Colace) polyethylene glycol 3350 17 17 g PO BID PRN constipation #238 06/26/22 gram/dose oral powder (Miralax) grams sennosides 8.6 mg tablet (senna) 8.6 mg PO BEDTIME #14 tabs 06/26/22 Allergies Allergy/AdvReac Type Severity Reaction Status Date / Time atorvastatin Allergy Unknown pt does Verified 06/14/22 09:10 not know azithromycin Allergy Unknown pt does Verified 06/14/22 09:10 not know ceftriaxone Allergy Unknown pt does Verified 06/14/22 09:10 not know cephalexin Allergy Unknown pt does Verified 06/14/22 09:10 not know citalopram Allergy Unknown pt does Verified 06/14/22 09:10 not know levofloxacin Allergy Unknown pt does Verified 06/14/22 09:10 not know metformin Allergy Unknown pt does Verified 06/14/22 09:10 not know nitrofurantoin Allergy Unknown pt does Verified 06/14/22 09:10 not know oxycodone Allergy Unknown pt does Verified 06/14/22 09:10 not know penicillin V Allergy Unknown pt does Verified 06/14/22 09:10 not know pioglitazone Allergy Unknown pt does Verified 06/14/22 09:10 not know repaglinide Allergy Unknown pt does Verified 06/14/22 09:10 not know rosuvastatin [Crestor] Allergy Unknown pt does Verified 06/14/22 09:10 not know sertraline Allergy Unknown pt does Verified 06/14/22 09:10 not know simvastatin Allergy Unknown pt does Verified 06/14/22 09:10 not know sulfacetamide Allergy Unknown pt does Verified 06/14/22 09:10 not know Cefuroxime Sodium Allergy Unknown pt does Uncoded 06/14/22 09:10 not know Review of Systems Review of Systems Constitutional : No Weight loss, No Fever, No Chills, No Fatigue, No Malaise ENT/Mouth : No sore throat, No Rhinorrhea Eyes: No Eye Pain, No Swelling, No Redness Cardiovascular : No Chest Pain, No SOB, No Dyspnea on Exertion, No Orthopnea, No Edema, No Palpitations Respiratory : No Cough, No Sputum, No Wheezing Gastrointestinal : No Nausea, No Vomiting, No Diarrhea, No Constipation, No abdominal Pain, No Hematochezia, No Melena Genitourinary : + Dysuria, + Urinary Frequency, No Hematuria Musculoskeletal : No joint pain, No Myalgias, No Joint Swelling Skin : No Skin Lesions, No rash Neuro : No Weakness, No Numbness, No Dizziness, No Headache Psych : No Anxiety/Panic, No Depression All other systems reviewed and are negative Yes all other systems are reviewed and are negative [facility] Past Medical History Attestation statement: The following information was validated with the patient. Source: old records reviewed and nursing notes reviewed Medical History Annual physical exam Cataract Dementia Diabetes Diverticulitis Frequent UTI HTN (hypertension) HTN (hypertension) Hyperlipidemia Hypothyroid IDDM (insulin dependent diabetes mellitus) Macular degeneration Myocardial infarct Nephrolithiasis Nephrolithiasis Pacemaker Surgical History H/O left knee surgery Status post lumbar spine surgery for decompression of spinal cord Social History Social History Household Members: Children Household Members Other:: daughter Housing: House Do you presently have visiting nurse or other home services: No Patient Tobacco Use Status: Current everyday Tobacco user Tobacco use type: Cigarette Cigarettes Per Day: 4 Years Smoked: 54 Smoked in Last 30 Days: Yes e-Cigarette/Vaping Use: Never Used Use of substances other than those prescribed or required for medical reasons: No Advance Directives: Yes Advance Directives on File: Yes Advance Directives Date on File: 11/05/20 Patient : Yes service: No Current occupational status: retired Cognitive needs: No Hearing needs: No Vision needs: Yes Physical Exam ED Vital Signs: Vital Signs - 24 hr 06/26/22 17:36 06/26/22 17:41 06/26/22 18:00 Temperature 98.5 F 99.1 F Pulse Rate 60 60 59 Respiratory Rate 16 16 Blood Pressure 133/69 145/60 H Pulse Oximetry 95 94 99 Oxygen Delivery Method Room Air Room Air Room Air 06/26/22 18:55 06/26/22 20:00 Temperature 98.0 F Pulse Rate 59 Respiratory Rate 16 16 Blood Pressure 160/58 H Pulse Oximetry 95 Oxygen Delivery Method Room Air BMI result Body Mass Index 24.7 Vital signs stable Appearance: Alert.? Oriented X3.? No acute distress.? Head: Normocephalic, atraumatic, no step-offs or deformities Eyes: Pupils equal, round and reactive to light.? ENT: Pharynx normal.? Neck: Normal inspection.? Neck supple.? CVS: Normal heart rate and rhythm.? Pulses normal.? Respiratory: No respiratory distress.? Breath sounds normal.? Abdomen: Soft and lower abdominal tenderness on exam.? No abdominal bruits Skin: Skin warm and dry.? Normal skin color.? Normal skin turgor.? Extremities: No lower extremity edema.? No calf ttp. Global weakness Back: No midline tenderness, no C-spine tenderness, full range of motion, no CVA tenderness bilaterally + lumbar paraspinous tenderness bilaterally Neuro: Oriented X 3.? No motor deficit.? No sensory deficit. CN 2-12 intact . No saddle paresthesias. Course Reevaluation(s) Reevaluation #1: CBC appears to be within normal limits. Chemistry with no acute electrolyte abnormalities requiring intervention. Patient's lactic acid is negative. UA with infection, will initiate oral antibiotics. Patient's COVID status negativ e. Patient has a long list of allergies, it appears as though patient has tolerated ciprofloxacin in the past without difficulties on multiple occasions patient has had it for diverticulitis and acute UTI with success. Educated on black box warning of tendon rupture. Time: 18:39 Reevaluation #2: Patient reports improvement in sx after medication, patient well appearing, now complaining of lower back pain which feels like her typical has lumbar paraspinous tenderness on exam tells me feels sore. No saddle paresthesias, urinary or bowel incontinence. No red flag symptoms unlikely cauda equina or epidural abscess. CT of the abdomen and pelvis with constipation, could be contributing to patient's pain. Colonic diverticulosis without diverticulitis. Mild prominence of small bowel loops in the right mid abdomen however no signs of obstruction. An infrarenal aortic aneurysm with minimally increased in size circumferential thrombus noted ( to note i do not suspect acute AAA) , I did discuss this with Dr. Julio who tells me no need for emergent treatment at this time he recommends adding aspirin to patient's medications, he is aware that patient is taking clopidogrel. I will give her outpatient follow-up with vascular. Patient will be discharged back to [facility] facility with antibiotic, gave her paper script. Educated patient on diagnosis and treatment plan, answered all question, patient verbalizes understanding. At this time patient will be discharged home, advised to return with new or worsening symptoms. Educated on worrisome signs and symptoms and when to return. At this time I feel comfortable discharge home. Nursing will communicate this within [facility] staff where patient came from To note, at time of discharge patient eating and drinking, well-appearing, tells me she is feeling better. Time: 22:18 Medical Decision Making Medical Decision Making [facility] Narrative: [id number] 76-year-old female presents with urinary frequency, urgency, abdominal discom fort in the lower region and bilateral flank pain x1 day came on suddenly. History of kidney stones and urinary infections. Physical exam with lower abdominal tenderness to palpation, bilateral flank discomfort. Concerns for UTI versus pyelo versus obstructing uropathy versus kidney stone. Unlikely acute abdomen, appendicitis, cholecystitis, pancreatitis or diverticulitis. Unlikely cauda equina or epidural abscess Plan at this time labs, imaging, UA Differential Diagnosis Differential Diagnoses: The differential diagnosis associated with the presentation includes Concerns for UTI versus pyelo versus obstructing uropathy versus kidney stone. Unlikely acute abdomen, appendicitis, cholecystitis, pancreatitis or di verticulitis. Unlikely cauda equina or epidural abscess Admission/Observation Consideration of admission/observation: Escalation of care including admission/observation considered Lab Data [facility] Lab Attestation statement: I reviewed the patient's lab results. 06/26/22 18:10 06/26/22 18:10 Labs: Lab Results 06/26/22 06/26/22 06/26/22 Range/Units 18:08 18:09 18:09 WBC (4.8-10.8) X10*3/uL RBC (4.20-5.50) X10*6/uL Hgb (12.0-16.0) g/dl Hct (37.0-47.0) % MCV (80.0-98.0) fL MCH (27.0-33.0) pg MCHC (31.0-35.0) g/dl RDW (11.0-16.0) % Plt Count (160-400) X10*3/uL MPV (9.4-12.3) fL Immature Gran % (Auto) (0.0-0.4) % Neut % (Auto) (45-73) % Lymph % (Auto) (20-40) % Jackson % (Auto) (2-11) % Eos % (Auto) (0-4) % Baso % (Auto) (0-2) % Lymph # (Auto) (1.2-4.9) X10*3/uL Jackson # (Auto) (0.1-1.2) X10*3/uL Eos # (Auto) (0.0-0.4) X10*3/uL Baso # (Auto) (0.0-0.2) X10*3/uL Abs Immat Gran (auto) (0.00-0.03) X10*3/uL Absolute Neuts (auto) (2.0-8.3) x10*3/uL Absolute Nucleated RBC (0.0-0.012) X10*3/uL Nucleated RBC % (auto) (0.0-0.2) /100WBC Sodium (135-145) mmol/L Potassium (3.3-5.1) mmol/L Chloride (96-108) mmol/L Carbon Dioxide (22-29) mmol/L Anion Gap (12-20) BUN (9-16) mg/dL Creatinine (0.5-1.4) mg/dL Estim Creat Clear Calc Estimated GFR Random Glucose (60-115) mg/dL Lactic Acid 1.2 (0.5-2.0) mmol/L Calcium (8.4-10.2) mg/dL Magnesium (1.6-2.6) mg/dL Total Bilirubin (0.0-1.0) mg/dL AST (5-31) U/L ALT (0-31) U/L Alkaline Phosphatase (39-117) U/L Total Protein (6.5-8.0) g/dL Albumin (3.5-5.0) g/dL Urine Color Yellow Urine Appearance Cloudy Urine pH 5.0 (5.0-9.0) Ur Specific [place] 1.015 (1.005-1.025) Urine Protein Negative (Neg-Trace) mg/dL Urine Glucose (UA) Negative (Negative) mg/dL Urine Ketones Trace (Negative) mg/dL Urine Blood Moderate (2+) H (Negative) Urine Nitrite Negative (Negative) Ur Leukocyte Esterase Moderate (2+) H (Negative) Urine RBC >20 H (0-2) /HPF Urine WBC 21-50 H (0-5) /HPF Ur Squamous Epith Cells 6-10 (0-2) /HPF Urine Bacteria None Seen (None Seen) Hyaline Casts 0-2 (0-2) /LPF COVID-19 (RUSSELL) Negative (Negative) COVID-19 Clin Com See Note 06/26/22 06/26/22 Range/Units 18:10 18:10 WBC 9.4 (4.8-10.8) X10*3/uL RBC 5.21 (4.20-5.50) X10*6/uL Hgb 15.4 (12.0-16.0) g/dl Hct 47.3 H (37.0-47.0) % MCV 90.8 (80.0-98.0) fL MCH 29.6 (27.0-33.0) pg MCHC 32.6 (31.0-35.0) g/dl RDW 13.7 (11.0-16.0) % Plt Count 244 (160-400) X10*3/uL MPV 9.5 (9.4-12.3) fL Immature Gran % (Auto) 0.2 (0.0-0.4) % Neut % (Auto) 65.5 (45-73) % Lymph % (Auto) 25.6 (20-40) % Jackson % (Auto) 6.3 (2-11) % Eos % (Auto) 1.3 (0-4) % Baso % (Auto) 1.1 (0-2) % Lymph # (Auto) 2.4 (1.2-4.9) X10*3/uL Jackson # (Auto) 0.6 (0.1-1.2) X10*3/uL Eos # (Auto) 0.1 (0.0-0.4) X10*3/uL Baso # (Auto) 0.1 (0.0-0.2) X10*3/uL Abs Immat Gran (auto) 0.02 (0.00-0.03) X10*3/uL Absolute Neuts (auto) 6.2 (2.0-8.3) x10*3/uL Absolute Nucleated RBC 0.000 (0.0-0.012) X10*3/uL Nucleated RBC % (auto) 0.0 (0.0-0.2) /100WBC Sodium 143 (135-145) mmol/L Potassium 4.4 (3.3-5.1) mmol/L Chloride 108 (96-108) mmol/L Carbon Dioxide 27 (22-29) mmol/L Anion Gap 12 (12-20) BUN 16 (9-16) mg/dL Creatinine 0.82 (0.5-1.4) mg/dL Estim Creat Clear Calc 50.7 Estimated GFR > 60 Random Glucose 153 H (60-115) mg/dL Lactic Acid (0.5-2.0) mmol/L Calcium 9.7 (8.4-10.2) mg/dL Magnesium 2.1 (1.6-2.6) mg/dL Total Bilirubin 0.3 (0.0-1.0) mg/dL AST 20 (5-31) U/L ALT 23 (0-31) U/L Alkaline Phosphatase 119 H (39-117) U/L Total Protein 6.9 (6.5-8.0) g/dL Albumin 4.0 (3.5-5.0) g/dL Urine Color Urine Appearance Urine pH (5.0-9.0) Ur Specific [place] (1.005-1.025) Urine Protein (Neg-Trace) mg/dL Urine Glucose (UA) (Negative) mg/dL Urine Ketones (Negative) mg/dL Urine Blood (Negative) Urine Nitrite (Negative) Ur Leukocyte Esterase (Negative) Urine RBC (0-2) /HPF Urine WBC (0-5) /HPF Ur Squamous Epith Cells (0-2) /HPF Urine Bacteria (None Seen) Hyaline Casts (0-2) /LPF COVID-19 (RUSSELL) (Negative) COVID-19 Clin Com Independent Interpretation I performed an independent interpretation of an: CT Scan (CT/CT abdomen pelvis w IV con IMPRESSION: Significant constipation with likely fecal impaction in stercoral colitis. Colonic diverticulosis without any diverticulitis. No obstruction. Nonspecific mild prominence of small bowel loops in the right midabdomen. Infrarenal aortic aneurysm, minimally ) Radiology Impression Discussion of test interpretation with radiology: I have reviewed the radiologist's reading. Core Measures AMI core measures followed: Yes Measure exclusions: not indicated Medications Administered Discontinued Medications Generic Name Dose Route Start Last Admin Trade Name Freq PRN Reason Stop Dose Admin Fentanyl 50 mcg 06/26/22 18:50 06/26/22 18:55 Fentanyl Citrate/Pf 100 Mcg/2 Ml Vial IVPUSH 06/26/22 18:51 50 mcg ONCE ONE Administration Protocol Iohexol 100 ml 06/26/22 19:12 06/26/22 19:13 Iohexol 350 Mg/Ml 100 Ml Infus..Btl IV 06/26/22 19:13 85 ml ONCE ONE Administration Critical Care Time Critical Care Time Critical Care Time: No Discharge Plan Discharge Clinical Impression: Urinary tract infection, Constipation, Aneurysm of infrarenal abdominal aorta Patient Disposition: Home, Self-Care Additional Instructions: Take your medications as prescribed. If you were prescribed antibiotics today, it is important that you take your medication to their entirety, do not skip any doses, do not finish them early. Follow-up with your primary care provider this week. Return to the emergency department with new or worsening symptoms. Such as fevers, chills, chest pain, shortness of breath, nausea, vomiting, dizziness, headache, vision changes, lethargy In case of emergency call 911 You were noted to have a infrarenal aortic aneurysm I spoke to the vascular doctor who recommends adding aspirin to your daily medications. Please follow- up with vascular doctor information below. Return with new or worsening symptoms. CT/CT abdomen pelvis w IV con IMPRESSION: Significant constipation with likely fecal impaction in stercoral colitis. Colonic diverticulosis without any diverticulitis. No obstruction. ? Nonspecific mild prominence of small bowel loops in the right midabdomen. ? Infrarenal aortic aneurysm, minimally increased in size with circumferential thrombus.? ? Fleischner guidelines were followed. Prescriptions: New ciprofloxacin HCl 750 mg tablet 750 mg PO BID 7 Days Qty: 14 0RF aspirin 81 mg capsule 81 mg PO DAILY Qty: 30 0RF sennosides [senna] 8.6 mg tablet 8.6 mg PO BEDTIME Qty: 14 0RF docusate sodium [Colace] 100 mg capsule 100 mg PO BID Qty: 20 0RF polyethylene glycol 3350 [Miralax] 17 gram/dose powder 17 g PO BID PRN (Reason: constipation) Qty: 238 0RF No Action (DME) blood-glucose meter [OneTouch Ultra2 Meter] Misc See Rx Instructions .ROUTE .MEDSUPPLY Qty: 100 3RF Rx Instructions: tid pyridoxine (vitamin B6) 100 mg tablet 100 mg PO DAILY 90 Days Qty: 90 3RF (DME) pen needle, diabetic [Comfort EZ Pen Grenora] 33 gauge x 5/32 needle See Rx Instructions .Route Qty: 100 3RF Rx Instructions: As directed cyanocobalamin (vitamin B-12) 1,000 mcg tablet 1,000 mcg PO DAILY Qty: 30 8RF (DME) FreeStyle Lite Strips Strip See Rx Instructions .Route Qty: 100 5RF Rx Instructions: test blood sugar 3 times per day famotidine 40 mg tablet 40 mg PO DAILY Qty: 90 3RF cholecalciferol (vitamin D3) 125 mcg (5,000 unit) capsule 125 mcg PO DAILY Qty: 90 3RF donepezil 5 mg tablet 5 mg PO BEDTIME Qty: 90 3RF metoprolol succinate 25 mg tablet extended release 24 hr 50 mg PO DAILY Qty: 90 3RF gabapentin 100 mg capsule 100 mg PO BID Qty: 180 3RF clopidogrel 75 mg tablet 75 mg PO DAILY Qty: 90 3RF allopurinol 100 mg tablet 100 mg PO DAILY 90 Days Qty: 90 1RF lisinopril 40 mg Tablet 40 mg PO DAILY Tresiba FlexTouch U-100 100 unit/mL (3 mL) insulin pen 18 unit subcut BEDTIME Qty: 15 4RF rosuvastatin 20 mg tablet 20 mg PO BEDTIME levothyroxine 100 mcg tablet 100 mcg PO DAILY amlodipine 5 mg tablet 5 mg PO DAILY (DME) lancets [OneTouch Delica Lancets] 33 gauge misc See Rx Instructions .ROUTE .MEDSUPPLY Qty: 100 5RF Rx Instructions: TID (DME) OneTouch Ultra Blue Test Strip Strip See Rx Instructions .ROUTE .MEDSUPPLY Qty: 100 4RF Rx Instructions: tid Referrals: Ivan Julio MD [Physician] - 1 day Physician,Ricky J [Primary Care Provider] - 2 days
[2022-06-26 17:36] VITALS: BP 133/69; BP 148/80; PULSE 60; PULSE 64; RESP 16; TEMP 36.9; O2SAT 95; BMI 24.7
[2022-06-26 17:41] VITALS: PULSE 60; O2SAT 94
[2022-06-26 18:00] VITALS: BP 145/60; PULSE 59; RESP 16; TEMP 37.3; O2SAT 99
--- NOTE | 2022-06-26 18:13 | MHC.EDTECH ---
patient blood drawn ,blood culture ,lactic acid and covid swab and urine sample send to lab ,1800 vitals sign taken patient resting ,call garay within reach .
[2022-06-26 18:16] LABS: MANUAL DIFF FLAG NO
[2022-06-26 18:19] LABS: Basophils Absolute Auto 0.1 X10*3/uL (0.0-0.2); Basophils Percent Auto 1.1 % (0-2); Eosinophils Absolute Auto 0.1 X10*3/uL (0.0-0.4); Eosinophils Percent Auto 1.3 % (0-4); Hematocrit 47.3 % (37.0-47.0); Hemoglobin 15.4 g/dl (12.0-16.0); Imm Gran Abs Auto 0.02 X10*3/uL (0.00-0.03); Imm Gran Pct Auto 0.2 % (0.0-0.4); Lymphocytes Absolute Auto 2.4 X10*3/uL (1.2-4.9); Lymphocytes Percent Auto 25.6 % (20-40); Mean Corpuscular HGB Conc 32.6 g/dl (31.0-35.0); Mean Corpuscular Hemoglobin 29.6 pg (27.0-33.0); Mean Corpuscular Volume 90.8 fL (80.0-98.0); Mean Platelet Volume 9.5 fL (9.4-12.3); Monocytes Absolute Auto 0.6 X10*3/uL (0.1-1.2); Monocytes Percent Auto 6.3 % (2-11); Neutrophils Absolute Auto 6.2 x10*3/uL (2.0-8.3); Neutrophils Percent Auto 65.5 % (45-73); Platelet Count 244 X10*3/uL (160-400); Red Blood Count 5.21 X10*6/uL (4.20-5.50); Red Cell Distribution Width 13.7 % (11.0-16.0); White Blood Count 9.4 X10*3/uL (4.8-10.8)
[2022-06-26 18:20] LABS: Appearance Urine Cloudy; Color Urine Yellow; Glucose Urine UA Negative (Negative); Leukocyte Esterase Urine Moderate (2+) (Negative); Nitrite Urine Negative (Negative); Specific Gravity - Urine 1.015 (1.005-1.025); UMIC TRIGGER UACC YES; Urine Blood Moderate (2+) (Negative); Urine Ketones Trace mg/dL (Negative); Urine Protein Negative (Neg-Trace)
[2022-06-26 18:23] LABS: Bacteria Urine None Seen (None Seen); Hyaline Casts Urine 0-2 /LPF (0-2); RBC Urine >20 /HPF (0-2); UACC Culture Trigger YES; WBC Urine 21-50 /HPF (0-5)
[2022-06-26 18:30] LABS: Lactic Acid 1.2 mmol/L (0.5-2.0)
[2022-06-26 18:32] LABS: COVID-19 Test Negative (Negative); IDNOW Serial# 9DB6401D
[2022-06-26 18:34] LABS: Alanine Aminotransferase 23 U/L (0-31); Alkaline Phosphatase 119 U/L (39-117); Anion Gap 12 (12-20); Aspartate Amino Transferase 20 U/L (5-31); Bilirubin Total 0.3 mg/dL (0.0-1.0); Blood Urea Nitrogen 16 mg/dL (9-16); Calcium 9.7 mg/dL (8.4-10.2); Carbon Dioxide 27 mmol/L (22-29); Chloride 108 mmol/L (96-108); Creatinine Clr Calc Pharmacy 50.7; Estimated Glomerular Filt Rate > 60; Glucose Random 153 mg/dL (60-115); Magnesium 2.1 mg/dL (1.6-2.6); Potassium 4.4 mmol/L (3.3-5.1); Sodium 143 mmol/L (135-145); Total Protein 6.9 g/dL (6.5-8.0)
[2022-06-26 18:55] VITALS: RESP 16
[2022-06-26] MEDS: fentaNYL citrate/PF 100 MCG/2 ML VIAL 50 MCG IVPUSH (18:55)
[2022-06-26] MEDS: iohexoL 350 MG/ML 100 ML INFUS..BTL IV (19:13)
[2022-06-26 20:00] VITALS: BP 160/58; PULSE 59; RESP 16; TEMP 36.7; O2SAT 95
--- NOTE | 2022-06-26 20:03 | MHC.EDTECH ---
1999 rounding done ,vitals sign taken patient ask for food ,sj cole said yes patient can eat ,patient was given turkey sandwich and pitcher of ice water .
--- NOTE | 2022-06-26 22:50 | PC.NURSE ---
Nursing report given to Minda at [facility].
== END 2022-06-27 00:05 | disposition home or self-care (01) ==
PROVIDERS: Physician Assistant; Emergency Provider Emergency Medicine
DX: N39.0 Urinary tract infection, site not specified (principal); I71.43 Infrarenal abdominal aortic aneurysm, without rupture; K59.00 Constipation, unspecified; Z20.822 Contact with and (suspected) exposure to COVID-19; E11.9 Type 2 diabetes mellitus without complications; I10 Essential (primary) hypertension; E78.5 Hyperlipidemia, unspecified; F17.210 Nicotine dependence, cigarettes, uncomplicated; Z87.440 Personal history of urinary (tract) infections; Z95.0 Presence of cardiac pacemaker; Z79.899 Other long term (current) drug therapy; Z79.02 Long term (current) use of antithrombotics/antiplatelets; Z79.4 Long term (current) use of insulin; Z79.82 Long term (current) use of aspirin
CPT/HCPCS: 51701; 74177; 80053; 81001; 83605; 83735; 85025; 87040; 87086; 87635; 96374; 99284; J3010; Q9967

== ENCOUNTER → 2022-10-05 12:57 | Outpatient (BNVA) | payer MEDICARE, MEDICAID, SELFPAY | PROVIDERS: PCP Internal Medicine; Visit Provider Surgery Vascular Surgery | DX: I71.40 Abdominal aortic aneurysm, without rupture, unspecified (principal) | CPT/HCPCS: 99202 ==

== ENCOUNTER 2022-10-05 13:38 | Outpatient (REF) | payer MEDICARE, MEDICAID, SELFPAY | END 2022-10-05 13:39 | disposition home or self-care (01) | LOC: HO.HAP 13:38 | PROVIDERS: Visit Provider Internal Medicine | DX: Z46.1 Encounter for fitting and adjustment of hearing aid (principal); H90.3 Sensorineural hearing loss, bilateral | CPT/HCPCS: V5266 ==

== ENCOUNTER 2022-11-08 14:12 | Outpatient (REF) | payer MEDICARE, MEDICAID, SELFPAY ==
[2022-11-08 16:33] LABS: MANUAL DIFF FLAG NO
[2022-11-08 17:49] LABS: Basophils Absolute Auto 0.1 X10*3/uL (0.0-0.2); Basophils Percent Auto 0.6 % (0-2); Eosinophils Absolute Auto 0.1 X10*3/uL (0.0-0.4); Eosinophils Percent Auto 1.3 % (0-4); Hemoglobin 14.5 g/dl (12.0-16.0); Imm Gran Abs Auto 0.03 X10*3/uL (0.00-0.03); Imm Gran Pct Auto 0.3 % (0.0-0.4); Lymphocytes Absolute Auto 2.2 X10*3/uL (1.2-4.9); Lymphocytes Percent Auto 23.3 % (20-40); Mean Corpuscular HGB Conc 31.5 g/dl (31.0-35.0); Monocytes Absolute Auto 0.4 X10*3/uL (0.1-1.2); Neutrophils Absolute Auto 6.7 x10*3/uL (2.0-8.3); Neutrophils Percent Auto 70.5 % (45-73); Platelet Count 253 X10*3/uL (160-400); Red Cell Distribution Width 14.5 % (11.0-16.0); White Blood Count 9.5 X10*3/uL (4.8-10.8)
[2022-11-08 18:09] LABS: Alanine Aminotransferase 28 U/L (0-31); Albumin Level 3.7 g/dL (3.5-5.0); Alkaline Phosphatase 94 U/L (39-117); Anion Gap 12 (12-20); Aspartate Amino Transferase 26 U/L (5-31); Bilirubin Total 0.3 mg/dL (0.0-1.0); Blood Urea Nitrogen 12 mg/dL (9-16); Calcium 9.5 mg/dL (8.4-10.2); Carbon Dioxide 29 mmol/L (22-29); Chloride 108 mmol/L (96-108); Estimated Glomerular Filt Rate > 60; Glucose Random 177 mg/dL (60-115); Potassium 4.6 mmol/L (3.3-5.1); Sodium 144 mmol/L (135-145); Total Protein 6.5 g/dL (6.5-8.0)
[2022-11-08 19:06] LABS: Free T4 (Free Thyroxine) 1.13 ng/dL (0.71-1.85)
[2022-11-09 05:20] LABS: Estimated Average Glucose 123 mg/dL; Hemoglobin A1c % 5.9 %
== END 2022-11-08 14:13 | disposition home or self-care (01) ==
LOC: HO.HMGCLDS 14:12
PROVIDERS: PCP Internal Medicine; Visit Provider Internal Medicine
DX: N20.0 Calculus of kidney (principal); N39.0 Urinary tract infection, site not specified; E03.9 Hypothyroidism, unspecified; E11.9 Type 2 diabetes mellitus without complications; I10 Essential (primary) hypertension
CPT/HCPCS: 36415; 80053; 83036; 84439; 84443; 85025; 87086

== ENCOUNTER 2022-11-28 09:59 | Outpatient (REF) | payer MEDICARE, MEDICAID, SELFPAY ==
--- NOTE | 2022-11-28 13:30 | MHC.AU.HA3 ---
Hearing Instrument Follow-Up- Binaural Date of Visit: 11/28/22 Right Ear: Yohannes, Model, Color, Serial Number: Charlene Hull [id number] SN: [id number] Color: Graphite Bernard [employer] Insurance Repair Warranty: 03/30/2023 [employer] Insurance Loss and Damage Warranty: USED 10/05/2020 Battery Size: 13 Dialysis Clinical Manager/Slim Tube: 2M Earmold/Dome/CShell/SlimTip:Small power dome Type of Wax Guard: CeruShield Dispensed By: [facility] Date of Fittin01/12/2020 Left Ear: Yohannes, Model, Color, Serial Number: Charlene Hull [id number] SN: [id number] Color: Graphite Bernard [employer] Insurance Repair Warranty: 03/30/2023 [employer] Insurance Loss and Damage Warranty: USED 11/28/2022 Battery Size: 13 Dialysis Clinical Manager/Slim Tube: 2M Earmold/Dome/CShell/SlimTip: Small power dome Type of Wax Guard: CeruShield Dispensed By: [facility] Date of Fittin01/12/2020 Follow-Up Summary: [place] returned for a clean and check of her right hearing aid. She recently lost her left hearing aid. Upon inspection, right hearing aid was due to plugged wax guard and battery. The retention tail was also on upside down and the hearing aid was missing the color indicator. Cleaned the hearing aid, vacuumed the microphones, replaced dome, wax guard, retention tail, battery, and color indicator. A listening check demonstrated that the hearing aid is in good working order. [place] reported that she typically only wears one hearing aid as two hearing aids tend to be too noisy and she does not notice additional benefit from the second device. Advised that the left hearing aid can be replaced under warranty until March 2023 and strongly recommended the use of bilateral hearing aids. Briefly discussed benefits of binaural hearing. Also recommended updated hearing evaluation and reprogramming of hearing aids. [place] is agreeable to trying two hearing aids again. Signed Replacement Claim Form. Recommendations: [place] will obtain PCP order for updated hearing test. Replacement Claim form will be sent to [facility]. If hearing test is not scheduled once replacement hearing aid has arrived, call [place] to determine if she would like to pickle solution maker replacement hearing aid or wait until hearing test is scheduled to pickle solution maker replacement and have reprogramming at the same appointment as hearing test. Diagnosis Code(s): Primary Diagnosis: H90.3 Bilateral Sensorineural Hearing Loss Signature: Provider: Isamar Landeros, [facility]
== END 2022-11-28 10:00 | disposition home or self-care (01) ==
LOC: HO.HAP 09:59
PROVIDERS: Visit Provider Internal Medicine
DX: Z46.1 Encounter for fitting and adjustment of hearing aid (principal); H90.3 Sensorineural hearing loss, bilateral
CPT/HCPCS: 92592; 99499

== ENCOUNTER 2022-12-15 12:41 | Outpatient (AMB) | payer MEDICARE, MEDICAID, SELFPAY ==
[2022-12-15 12:44] VITALS: BP 126/72; PULSE 67; O2SAT 98; BMI 22.5
--- NOTE | 2022-12-15 12:44 | MHC.PC.OV ---
Vital Signs 12/15/22 12:44 Height 5 ft 3 in Weight 127 lb BMI 22.5 BP 126/72 Blood Pressure Location Rt brachial Position Sitting Pulse 67 Pulse Source Pulse Oximeter Pulse Oximetry (%) 98 Oxygen Delivery Method Room Air Intake Visit Reasons: 1m follow up diverticulitis Intake Note: Pt is here today for 1 month follow up visit. Allergies atorvastatin Allergy (Unknown, Verified 12/15/22 12:45) pt does not know azithromycin Allergy (Unknown, Verified 12/15/22 12:45) pt does not know ceftriaxone Allergy (Unknown, Verified 12/15/22 12:45) pt does not know cephalexin Allergy (Unknown, Verified 12/15/22 12:45) pt does not know citalopram Allergy (Unknown, Verified 12/15/22 12:45) pt does not know levofloxacin Allergy (Unknown, Verified 12/15/22 12:45) pt does not know metformin Allergy (Unknown, Verified 12/15/22 12:45) pt does not know nitrofurantoin Allergy (Unknown, Verified 12/15/22 12:45) pt does not know oxycodone Allergy (Unknown, Verified 12/15/22 12:45) pt does not know penicillin V Allergy (Unknown, Verified 12/15/22 12:45) pt does not know pioglitazone Allergy (Unknown, Verified 12/15/22 12:45) pt does not know repaglinide Allergy (Unknown, Verified 12/15/22 12:45) pt does not know rosuvastatin [Crestor] Allergy (Unknown, Verified 12/15/22 12:45) pt does not know sertraline Allergy (Unknown, Verified 12/15/22 12:45) pt does not know simvastatin Allergy (Unknown, Verified 12/15/22 12:45) pt does not know sulfacetamide Allergy (Unknown, Verified 12/15/22 12:45) pt does not know Cefuroxime Sodium Allergy (Unknown, Uncoded 12/15/22 12:45) pt does not know Medication List - Last Reconciled 12/15/22 by Ashley Morales MD allopurinol 100 mg PO DAILY 90 days amlodipine 5 mg PO DAILY aspirin 81 mg PO DAILY blood sugar diagnostic tid blood sugar diagnostic (FreeStyle Lite Strips) test blood sugar 3 times per day blood-glucose meter (Contents Firstuch Ultra2 Meter) tid cholecalciferol (vitamin D3) 125 mcg PO DAILY clopidogrel 75 mg PO DAILY cyanocobalamin (vitamin B-12) 1,000 mcg PO DAILY docusate sodium (Colace) 100 mg PO BID donepezil 5 mg PO BEDTIME famotidine 40 mg PO DAILY gabapentin 100 mg PO BID insulin degludec (Tresiba FlexTouch U-100 insulin) 18 units (0.18 mL) subcut BEDTIME lancets (OneTouch Delica Lancets) TID levothyroxine 100 mcg PO DAILY lisinopril 40 mg PO DAILY metoprolol succinate ER 50 mg (2 x 25 mg) PO DAILY pen needle, diabetic (Comfort EZ Pen [place]) As directed polyethylene glycol 3350 (Miralax) 17 grams PO BID PRN pyridoxine (vitamin B6) 100 mg PO DAILY 90 days rosuvastatin 20 mg PO BEDTIME sennosides (senna) 8.6 mg PO BEDTIME Tobacco use date assessed: 12/15/22 Dental Screening Dental Screen Date: 12/15/22 Did you have a dental visit in the last 12 months?: Yes Did you have a dental problem in the last 6 months where you did not have access to dental care?: No Was dental information given to patient?: Patient has dentist HPI 1m follow up diverticulitis HPI Details Patient presents for follow-up of ER visit for chronic constipation and abdominal pain. CT of the abdomen was negative for diverticulitis. Patient has been taking stool softener and fiber and denies recurrent constipation. She reports episodes of lightheadedness and difficulty with balance but denies any recent falls. Patient denies positional vertigo. Type 2 diabetes and hypertension are controlled on current medications. [facility] Medical History Annual physical exam Cataract Dementia Diabetes Diverticulitis Frequent UTI HTN (hypertension) HTN (hypertension) Hyperlipidemia Hypothyroid IDDM (insulin dependent diabetes mellitus) Macular degeneration Myocardial infarct Nephrolithiasis Nephrolithiasis Pacemaker Surgical History H/O left knee surgery Status post lumbar spine surgery for decompression of spinal cord Family History (Updated 12/15/22 @ 12:53 by YANE Crowley) Father Heart attack Mother Heart problem Heart attack Substance use disorder Social History Household Members: Children Household Members Other:: daughter Housing: House Do you presently have visiting nurse or other home services: No Patient Tobacco Use Status: Current everyday Tobacco user Tobacco use type: Cigarette Cigarettes Per Day: 4 Years Smoked: 54 e-Cigarette/Vaping Use: Never Used Advance Directives Date on File: 11/05/20 service: No Current occupational status: retired Cognitive needs: No Hearing needs: No Vision needs: Yes Questionnaire PHQ-9 Over the last 2 weeks, how often have you been bothered by any of the following problems? 1. Little interest or pleasure in doing things: not at all 2. Feeling down, depressed, or hopeless: not at all 3. Trouble falling or staying asleep, or sleeping too much: not at all 4. Feeling tired or having little energy: not at all 5. Poor appetite or overeating: not at all 6. Feeling bad about yourself - or that you are a failure or have let yourself or your family down: not at all 7. Trouble concentrating on things, such as reading the newspaper or watching television: not at all 8. Moving or speaking so slowly that other people could have noticed. Or the opposite - being so fidgety or restless that you have been moving around a lot more than usual: not at all 9. Thoughts that you would be better off or of hurting yourself in some way: not at all Total score: 0 Depression Screening Interpretation: Negative Source: Developed by Drs. Manohar Reynoso, Bambi Cisneros, Andres Etienne and colleagues, with an educational mónica from [employer]. Thrive Questionnaire Date Thrive assessed: 12/15/22 I am a: Patient What is your living situation today?: I have a steady place to live Within the past 12 months, did the food you bought not last and you didn't have the money to get more?: Never true Within the past 12 months, did you worry whether your food would run out before you got money to buy more?: Never true Do you have trouble paying for medicines?: No Do you have trouble getting transportation to medical appointments?: No Do you have trouble paying your heating and electricity bill?: No Do you have trouble taking care of your child, family member or friend?: No Do you have trouble with day-to-day activities such as bathing, preparing meals, shopping, managing finances, etc.?: No Are you currently unemployed and looking for a job?: No Are you interested in more education?: No AUDIT C Alcohol Use Questionnaire (AUDIT-C) 1. How often do you have a drink containing alcohol?: Never 3. How often do you have six or more drinks on one occasion?: Never Total Score: 0 YAHIR-7 AMB Questionnaire YAHIR-7 Date YAHIR - 7 assessed: 12/15/22 Feeling nervous, anxious, or on edge: 0 = Not at all Not being able to stop or control worryin = Not at all Worrying too much about different things: 0 = Not at all Trouble relaxin = Not at all Being so restless that it is hard to sit still: 0 = Not at all Becoming easily annoyed or irritable: 0 = Not at all Feeling afraid as if something awful might happen: 0 = Not at all Total YAHIR-7 score (0-4 normal; 5-9 mild; 10-14 moderate; 15-21 severe): 0 Source: Developed by Drs. Manohar Reynoso, Bambi Cisneros, Andres Etienne and colleagues, with an educational mónica from [employer]. Review of Systems Const All systems reviewed & are unremarkable except as noted in HPI and below Reports no additional complaints Eyes Reports no additional complaints ENT Reports no additional complaints Card Reports no additional complaints Resp Reports no additional complaints GI Reports no additional complaints Reports no additional complaints Physical exam (Primary Care) Vital Signs: Last Vital Signs Pulse 67 12/15/22 12:44 BP 126/72 12/15/22 12:44 Pulse Ox 98 12/15/22 12:44 Oxygen Delivery Method Room Air 12/15/22 12:44 BMI result Body Mass Index 22.5 Tobacco/Smoking Status: Tobacco use Status Tobacco use date assessed 12/15/22 12/15/22 12:55 Patient Tobacco Use Status Current everyday Tobacco 12/15/22 12:55 Tobacco use type Cigarette 12/15/22 12:55 e-Cigarette/Vaping Use Never Used 12/15/22 12:55 PHQ-9: PHQ-9 Score PHQ-9: Total score 0 12/15/22 12:55 Depression Screening Interpretation: Negative Thrive Assessment: Date of Thrive Assessment Date Thrive assessed 12/15/22 12/15/22 12:55 Const General: no acute distress HENMT General nose exam: Normal external nose present Mouth: Normal oral and palatal mucosa present Eyes General: appearance normal, both eyes and all related structures Neck Neck: Yes supple Resp Effort & Inspection: normal respiratory effort Auscultation: clear to auscultation bilaterally Cardio Rhythm: regular rhythm Heart sounds: S1 normal heart sound present and S2 normal heart sound present Neuro Cranial nerves: Yes CN's II-XII intact bilaterally Gait exam (Neuro): Antalgic gait present Motor exam (neuro): 5/5 motor strength present throughout and Pronator motor function not present Romberg Test: Negative Assessment and Plan Assessment & Plan (1) Hypothyroid: Code(s): E03.9 - Hypothyroidism, unspecified Plan: Continue levothyroxine (2) HTN (hypertension): Comment: BP < 130/80 Code(s): I10 - Essential (primary) hypertension Plan: Continue current medications (3) Diabetes: Comment: A1C < 8 Code(s): E11.9 - Type 2 diabetes mellitus without complications Plan: Continue current medications ADA diet follow-up in 4 months with a fasting labs before (4) Balance problem: Code(s): R26.89 - Other abnormalities of gait and mobility Plan: Refer for physical therapy to improve balance Orders: Orders Comprehensive [place]. Panel Fast 4 Months E03.9 - Hypothyroidism, unspecified, E11.9 - Type 2 diabetes mellitus without complications, I10 - Essential (primary) hypertension Hemoglobin A1c 4 Months E03.9 - Hypothyroidism, unspecified, E11.9 - Type 2 diabetes mellitus without complications, I10 - Essential (primary) hypertension Lipid Panel 4 Months E03.9 - Hypothyroidism, unspecified, E11.9 - Type 2 diabetes mellitus without complications, I10 - Essential (primary) hypertension TSH reflex Free T4 4 Months E03.9 - Hypothyroidism, unspecified, E11.9 - Type 2 diabetes mellitus without complications, I10 - Essential (primary) hypertension Complete Blood Count Auto Diff 4 Months E03.9 - Hypothyroidism, unspecified, E11.9 - Type 2 diabetes mellitus without complications, I10 - Essential (primary) hypertension PT Evaluation and Treatment Today R26.89 - Other abnormalities of gait and mobility Coding Level of Care Code Est Pt Level 4 (85373) Diagnoses Hypothyroid E03.9 HTN (hypertension) I10 Diabetes E11.9 Balance problem R26.89
== END 2022-12-15 13:41 | disposition home or self-care (01) ==
PROVIDERS: PCP Internal Medicine; Visit Provider Internal Medicine
DX: E03.9 Hypothyroidism, unspecified (principal); I10 Essential (primary) hypertension; E11.9 Type 2 diabetes mellitus without complications; R26.89 Other abnormalities of gait and mobility
CPT/HCPCS: 99214

== ENCOUNTER 2023-01-19 10:02 | Emergency (ER) | payer MEDICARE, MEDICAID, SELFPAY ==
[2023-01-19] VITALS (8 sets, daily range): BP systolic 132–208; BP diastolic 58–89; PULSE 60–89; RESP 12–16; TEMP 36.2–36.6; O2SAT 95–97; BMI 22.3
--- NOTE | ~2023-01-19 | CT_ITS ---
EXAMINATION: CT HEAD WITHOUT CONTRAST CLINICAL INFORMATION: Right-sided visual changes. COMPARISON: None available. TECHNIQUE: Contiguous axial imaging was performed from the skull base to vertex without intravenous administration of contrast. Coronal and sagittal reformatted images were obtained. This CT examination was performed using dose optimization techniques as appropriate, variously including the following: *Automated exposure control *Adjustment of mA and/or kV according to patient size (this includes techniques or standardized protocols for targeted exams where dose is matched to indication/reason for exam; i.e. extremities or head) *Use of iterative reconstruction technique DLP: 530 mGy-cm FINDINGS: There is mild widening of the cortical sulci and associated ventriculomegaly. The lateral ventricles are symmetrical. The third and fourth ventricles are in their normal midline position. The basilar and prepontine cisterns are unremarkable. Mild periventricular microvascular changes are seen. There is no acute intra or extracerebral abnormality. There is no mass effect or midline shift. Sections through the bony calvarium are unremarkable. The orbits are intact. The paranasal sinuses are clear. The mastoid air cells are clear. CT/CT head/brain wo IV con IMPRESSION: No acute intracranial pathology.
--- NOTE | 2023-01-19 10:38 | ECG_ITS ---
Test Reason : dizziness Blood Pressure : / mmHG Vent. Rate : 060 BPM Atrial Rate : 060 BPM P-R Int : 212 ms QRS Dur : 108 ms QT Int : 500 ms P-R-T Axes : 000 -27 052 degrees QTc Int : 500 ms Atrial-paced rhythm with prolonged AV conduction Incomplete right bundle branch block Inferior infarct (cited on or before 04-NOV-2020) Cannot rule out Anterior infarct , age undetermined Abnormal ECG When compared with ECG of 22-NOV-2020 17:57, Incomplete right bundle branch block is now Present Minimal criteria for Anterior infarct are now Present Referred By: Generic ED Physician Electronically Signed By:KASSIE CLAROS
[2023-01-19 11:16] LABS: MANUAL DIFF FLAG NO
[2023-01-19 11:18] LABS: Basophils Absolute Auto 0.1 X10*3/uL (0.0-0.2); Basophils Percent Auto 0.6 % (0-2); Eosinophils Absolute Auto 0.1 X10*3/uL (0.0-0.4); Eosinophils Percent Auto 1.3 % (0-4); Hemoglobin 14.1 g/dl (12.0-16.0); Imm Gran Abs Auto 0.01 X10*3/uL (0.00-0.03); Imm Gran Pct Auto 0.1 % (0.0-0.4); Lymphocytes Absolute Auto 1.6 X10*3/uL (1.2-4.9); Lymphocytes Percent Auto 21.1 % (20-40); Mean Corpuscular Hemoglobin 28.7 pg (27.0-33.0); Mean Corpuscular Volume 89.6 fL (80.0-98.0); Mean Platelet Volume 9.3 fL (9.4-12.3); Monocytes Absolute Auto 0.4 X10*3/uL (0.1-1.2); Monocytes Percent Auto 5.6 % (2-11); Neutrophils Absolute Auto 5.5 x10*3/uL (2.0-8.3); Neutrophils Percent Auto 71.3 % (45-73); Platelet Count 227 X10*3/uL (160-400); Red Blood Count 4.91 X10*6/uL (4.20-5.50); Red Cell Distribution Width 14.5 % (11.0-16.0); White Blood Count 7.7 X10*3/uL (4.8-10.8)
[2023-01-19 11:19] LABS: Appearance Urine Clear; Color Urine Yellow; Glucose Urine UA Negative (Negative); Leukocyte Esterase Urine Negative (Negative); Nitrite Urine Negative (Negative); PH 6.5 (5.0-9.0); Urine Blood Negative (Negative); Urine Ketones Negative (Negative); Urine Protein Negative (Neg-Trace)
[2023-01-19 11:30] LABS: Anion Gap 10 (12-20); Blood Urea Nitrogen 17 mg/dL (9-16); Calcium 9.9 mg/dL (8.4-10.2); Carbon Dioxide 28 mmol/L (22-29); Chloride 109 mmol/L (96-108); Creatinine Clr Calc Pharmacy 44.4; Estimated Glomerular Filt Rate > 60; Glucose Random 131 mg/dL (60-115); Potassium 4.2 mmol/L (3.3-5.1); Sodium 143 mmol/L (135-145)
--- NOTE | 2023-01-19 15:35 | MHC.EDTECH ---
Pt is requesting medication for her pain, Yajaira fajardo. Pt has been walking out of her room and throughout the [facility]goza to ask the nurse for pain meds and for food. SG
--- NOTE | 2023-01-19 15:40 | PC.NURSE ---
pt reports intermittent dizziness, but has been up and ambulatory around nurses station before being redirected back to there room. Per PA, pt OKed for some food
--- NOTE | 2023-01-19 16:04 | ED.GENADULT ---
HPI - General Adult General Chief complaint: General Medical Stated complaint: From SNF, dizzy x 1 day per EMS Time Seen by Provider: 01/19/23 16:02 Source: patient, RN notes reviewed and old records reviewed Mode of arrival: ambulatory Limitations: no limitations History of Present Illness HPI narrative: 77-year-old female with past medical history significant for dementia, diabetes, frequent UTIs, hypertension, hyperlipidemia, macular degeneration, cataracts, coronary artery disease. Patient reports that she had an episode of dizziness earlier today. She is unsure if it is related to her medications or if her blood sugar was low She felt this as if the room was spinning when she when out to smoke a cigarette at her assisted living facility She denies any history of vertigo has a history of ?balance issues. ? The patient also complains of partial vision loss to the right eye described as a blind spot for several months Denies any recent changes to the vision loss or trauma to head or neck. Patient also complains of a wound to her right medial ankle which she believes started as ?a bug bite and is now red with some drainage. ? Patient reports that at her assisted living facility there is some concern for bedbugs Related Data Home Medications Medication Instructions Recorded Confirmed lisinopril 40 mg tablet 40 mg PO DAILY 11/04/20 12/15/22 amlodipine 5 mg tablet 5 mg PO DAILY 12/14/21 12/15/22 levothyroxine 100 mcg tablet 100 mcg PO DAILY 12/14/21 12/15/22 rosuvastatin 20 mg tablet 20 mg PO BEDTIME 12/14/21 12/15/22 Previous Rx's Medication Instructions Recorded blood-glucose meter (OneTouch #100 ea 09/01/20 Ultra2 Meter) insulin degludec 100 unit/mL (3 18 unit (0.18 mL) subcut BEDTIME 07/20/21 mL) subcutaneous pen (Tresiba #15 mL FlexTouch U-100 insulin) pyridoxine (vitamin B6) 100 mg 100 mg PO DAILY 90 days #90 tabs 09/27/21 tablet blood sugar diagnostic #100 ea 10/20/21 lancets 33 gauge (OneTouch Delica #100 ea 10/20/21 Lancets) pen needle, diabetic 33 gauge x #100 ea 11/18/21 (Comfort EZ Pen [place]) cyanocobalamin (vitamin B-12) 1,000 mcg PO DAILY #30 tabs 12/30/21 1,000 mcg tablet blood sugar diagnostic (FreeStyle #100 ea 01/13/22 Lite Strips) cholecalciferol (vitamin D3) 125 125 mcg PO DAILY #90 caps 02/16/22 mcg (5,000 unit) capsule famotidine 40 mg tablet 40 mg PO DAILY #90 tabs 02/16/22 clopidogrel 75 mg tablet 75 mg PO DAILY #90 tabs 03/09/22 donepezil 5 mg tablet 5 mg PO BEDTIME #90 tabs 03/09/22 gabapentin 100 mg capsule 100 mg PO BID #180 caps 03/09/22 metoprolol succinate 25 mg 50 mg PO DAILY #90 tabs 03/09/22 tablet,extended release 24 hr allopurinol 100 mg tablet 100 mg PO DAILY 90 days #90 tabs 03/27/22 aspirin 81 mg capsule 81 mg PO DAILY #30 caps 06/26/22 docusate sodium 100 mg capsule 100 mg PO BID #180 caps 11/10/22 (Colace) polyethylene glycol 3350 17 17 g PO BID PRN constipation #238 11/10/22 gram/dose oral powder (Miralax) grams sennosides 8.6 mg tablet (senna) 8.6 mg PO BEDTIME #90 tabs 11/10/22 doxycycline hyclate 100 mg tablet 100 mg PO BID #13 tabs 01/19/23 Allergies Allergy/AdvReac Type Severity Reaction Status Date / Time atorvastatin Allergy Unknown pt does Verified 12/15/22 12:45 not know azithromycin Allergy Unknown pt does Verified 12/15/22 12:45 not know ceftriaxone Allergy Unknown pt does Verified 12/15/22 12:45 not know cephalexin Allergy Unknown pt does Verified 12/15/22 12:45 not know citalopram Allergy Unknown pt does Verified 12/15/22 12:45 not know levofloxacin Allergy Unknown pt does Verified 12/15/22 12:45 not know metformin Allergy Unknown pt does Verified 12/15/22 12:45 not know nitrofurantoin Allergy Unknown pt does Verified 12/15/22 12:45 not know oxycodone Allergy Unknown pt does Verified 12/15/22 12:45 not know penicillin V Allergy Unknown pt does Verified 12/15/22 12:45 not know pioglitazone Allergy Unknown pt does Verified 12/15/22 12:45 not know repaglinide Allergy Unknown pt does Verified 12/15/22 12:45 not know rosuvastatin [Crestor] Allergy Unknown pt does Verified 12/15/22 12:45 not know sertraline Allergy Unknown pt does Verified 12/15/22 12:45 not know simvastatin Allergy Unknown pt does Verified 12/15/22 12:45 not know sulfacetamide Allergy Unknown pt does Verified 12/15/22 12:45 not know Cefuroxime Sodium Allergy Unknown pt does Uncoded 12/15/22 12:45 not know Review of Systems Constitutional: Constitutional: Reports chills, Denies fatigue and Denies fever(s) Eyes: Eyes: Reports blurry vision, Denies change in vision and Reports loss of vision Cardiovascular: Cardiovascular: Denies chest pain and Denies dyspnea Respiratory: Respiratory: Denies cough and Denies dyspnea Gastrointestinal: Gastrointestinal: Denies abdominal pain, Denies nausea and Denies vomiting Musculoskeletal: Musculoskeletal: Denies back pain and Reports arthralgias Integumentary/Breasts: Skin/Breast: Reports erythema and Reports wounds Neurologic: Reports loss of vision Endocrine: Endocrine: Denies fatigue PMFSH Past Medical History Medical History Annual physical exam Cataract Dementia Diabetes Diverticulitis Frequent UTI HTN (hypertension) HTN (hypertension) Hyperlipidemia Hypothyroid IDDM (insulin dependent diabetes mellitus) Macular degeneration Myocardial infarct Nephrolithiasis Nephrolithiasis Pacemaker Surgical History H/O left knee surgery Status post lumbar spine surgery for decompression of spinal cord Family History Family History (Updated 12/15/22 @ 12:53 by Nita Guadarrama Sharyn) Father Heart attack Mother Heart problem Heart attack Substance use disorder Social History Social History Household Members: Children Household Members Other:: daughter Housing: House Do you presently have visiting nurse or other home services: No Alcohol intake: never Patient Tobacco Use Status: Current everyday Tobacco user Tobacco use type: Cigarette Cigarettes Per Day: 4 Years Smoked: 54 Smoked in Last 30 Days: Yes e-Cigarette/Vaping Use: Never Used Use of substances other than those prescribed or required for medical reasons: No Advance Directives: Yes Advance Directives on File: Yes Advance Directives Date on File: 11/05/20 service: No Current occupational status: retired Cognitive needs: No Hearing needs: No Vision needs: Yes Physical Exam ED Vital Signs: Vital Signs - 24 hr 01/19/23 10:12 01/19/23 11:01 01/19/23 11:02 Temperature 97.8 F Pulse Rate 60 60 60 Respiratory Rate 16 Blood Pressure 156/70 H 178/61 H 157/61 H Pulse Oximetry 96 Oxygen Delivery Method Room Air 01/19/23 11:06 01/19/23 12:28 01/19/23 16:43 Temperature 97.8 F Pulse Rate 60 60 89 Respiratory Rate 13 15 Blood Pressure 190/58 H 132/89 177/70 H Pulse Oximetry 97 97 Oxygen Delivery Method Room Air Room Air BMI result Body Mass Index 22.3 Const General: healthy appearing, comfortable, no acute distress, alert and awake Nutritional Appearance: well nourished Orientation/consciousness: patient oriented x3 HENMT Head: Yes normocephalic and Yes atraumatic Eyes Eyelids: Yes eyelids normal Conjunctivae: conjunctivae normal Sclerae: sclerae normal Corneas: corneas normal Pupils: Equal, round and reactive pupils present EOM: EOMs intact bilaterally Neck Neck: Yes full ROM Resp Effort & Inspection: normal respiratory effort, able to speak in complete sentences and not labored GI Inspection: No distended Palpation (GI): Soft to palpation, not firm, nontender, no guarding and not rigid Skin Other: Patient has several small pinpoint wounds consistent with ?bug bites. To the bilateral ankles and wrists. There is an area of erythema to the right medial ankle with some degree of ulceration, approximately 3 cm wide. He no purulent drainage at this time General skin exam: elasticity normal Neuro General: patient oriented x3 Cranial nerves: Yes Equal, round and reactive pupils present and Yes Bilaterally intact EOM present Cognition (Neuro): normal cognition Extrem Other: Moving all extremities well without any obvious deformities Course Reevaluation(s) Reevaluation #1: Discussed results with patient and daughter who is now bedside. Apparently the patient usually goes to [facility] and most of her records are in their records. However, her acute workup is reassuring today. Will treat her developing right lower leg cellulitis with doxycycline if she has multiple allergies to antibiotics. She will follow-up with PCP Time: 18:25 Medications Administered Discontinued Medications Generic Name Dose Route Start Last Admin Trade Name Shakir PRN Reason Stop Dose Admin Meclizine HCl 25 mg 01/19/23 16:33 01/19/23 16:42 Meclizine Hcl 25 Mg Tablet PO 01/19/23 16:34 25 mg ONCE ONE Administration Medical Decision Making Medical Decision Making [facility] Narrative: 77-year-old female with past medical history as described above presents for evaluation of dizziness as well as a wound to her right ankle. The wound appears to have started as a bug bite and has developing cellulitis. There is no leukocytosis, her vitals are stable and there is no indication of sepsis. Patient's vital signs are stable. This can be treated as an outpatient basis. As far as her dizziness goes pain the patient is ambulating independently but reports some lightheadedness when doing so. Will check orthostatics. She does have a history of gait instability per her records. She also reports right eye vision loss which has been going on for several months. She reports having had CT scans and an MRI at this facility but I do not see any records in the computer. Will get a CT scan of brain. I have a low suspicion for acute stroke as the patient has no objective findings on exam. She also reports her symptoms started months ago Differential Diagnosis Differential Diagnoses: The differential diagnosis associated with the presentation includes Vertigo Bug bite Bedbug Scabies Cellulitis Ulceration This is states this Intracranial mass Macular degeneration Lab Data [facility] Lab Attestation statement: I reviewed the patient's lab results. No leukocytosis the white count 7.7, no left shift. No anemia, normal platelet count. Sodium potassium is normal limits. Chloride just above normal at 109. CO2 is normal at 28, BUN is just above normal at 17 with a normal creatinine 0.85. 01/19/23 11:09 01/19/23 11:09 Labs: Lab Results 01/19/23 01/19/23 01/19/23 Range/Units 11:09 11:09 11:09 WBC 7.7 (4.8-10.8) X10*3/uL RBC 4.91 (4.20-5.50) X10*6/uL Hgb 14.1 (12.0-16.0) g/dl Hct 44.0 (37.0-47.0) % MCV 89.6 (80.0-98.0) fL MCH 28.7 (27.0-33.0) pg MCHC 32.0 (31.0-35.0) g/dl RDW 14.5 (11.0-16.0) % Plt Count 227 (160-400) X10*3/uL MPV 9.3 L (9.4-12.3) fL Immature Gran % (Auto) 0.1 (0.0-0.4) % Neut % (Auto) 71.3 (45-73) % Lymph % (Auto) 21.1 (20-40) % Holt % (Auto) 5.6 (2-11) % Eos % (Auto) 1.3 (0-4) % Baso % (Auto) 0.6 (0-2) % Lymph # (Auto) 1.6 (1.2-4.9) X10*3/uL [place] # (Auto) 0.4 (0.1-1.2) X10*3/uL Eos # (Auto) 0.1 (0.0-0.4) X10*3/uL Baso # (Auto) 0.1 (0.0-0.2) X10*3/uL Abs Immat Gran (auto) 0.01 (0.00-0.03) X10*3/uL Absolute Neuts (auto) 5.5 (2.0-8.3) x10*3/uL Absolute Nucleated RBC 0.000 (0.0-0.012) X10*3/uL Nucleated RBC % (auto) 0.0 (0.0-0.2) /100WBC Sodium 143 (135-145) mmol/L Potassium 4.2 (3.3-5.1) mmol/L Chloride 109 H (96-108) mmol/L Carbon Dioxide 28 (22-29) mmol/L Anion Gap 10 L (12-20) BUN 17 H (9-16) mg/dL Creatinine 0.85 (0.5-1.4) mg/dL Estim Creat Clear Calc 44.4 Estimated GFR > 60 Random Glucose 131 H (60-115) mg/dL Calcium 9.9 (8.4-10.2) mg/dL Urine Color Yellow Urine Appearance Clear Urine pH 6.5 (5.0-9.0) Ur Specific [place] 1.010 (1.005-1.025) Urine Protein Negative (Neg-Trace) mg/dL Urine Glucose (UA) Negative (Negative) mg/dL Urine Ketones Negative (Negative) mg/dL Urine Blood Negative (Negative) Urine Nitrite Negative (Negative) Ur Leukocyte Esterase Negative (Negative) Discharge Plan Discharge Clinical Impression: Cellulitis of leg, right, Dizziness Patient Disposition: Home, Self-Care Instructions: Cellulitis (ED) Additional Instructions: Your workup in the emergency department today was reassuring. It does appear that you have a developing infection to your right ankle Take doxycycline twice daily for the next 7 days, your 1st dose was given in the emergency department Follow-up with your primary doctor Prescriptions: New doxycycline hyclate 100 mg tablet 100 mg PO BID Qty: 13 0RF No Action (DME) blood-glucose meter [[employer]Touch Ultra2 Meter] Misc See Rx Instructions .ROUTE .MEDSUPPLY Qty: 100 3RF Rx Instructions: tid pyridoxine (vitamin B6) 100 mg tablet 100 mg PO DAILY 90 Days Qty: 90 3RF (DME) pen needle, diabetic [Comfort EZ Pen [place]] 33 gauge x 5/32 needle See Rx Instructions .Route Qty: 100 3RF Rx Instructions: As directed cyanocobalamin (vitamin B-12) 1,000 mcg tablet 1,000 mcg PO DAILY Qty: 30 8RF (DME) FreeStyle Lite Strips Strip See Rx Instructions .Route Qty: 100 5RF Rx Instructions: test blood sugar 3 times per day famotidine 40 mg tablet 40 mg PO DAILY Qty: 90 3RF cholecalciferol (vitamin D3) 125 mcg (5,000 unit) capsule 125 mcg PO DAILY Qty: 90 3RF donepezil 5 mg tablet 5 mg PO BEDTIME Qty: 90 3RF metoprolol succinate 25 mg tablet extended release 24 hr 50 mg PO DAILY Qty: 90 3RF gabapentin 100 mg capsule 100 mg PO BID Qty: 180 3RF clopidogrel 75 mg tablet 75 mg PO DAILY Qty: 90 3RF allopurinol 100 mg tablet 100 mg PO DAILY 90 Days Qty: 90 1RF docusate sodium [Colace] 100 mg capsule 100 mg PO BID Qty: 180 3RF polyethylene glycol 3350 [Miralax] 17 gram/dose powder 17 g PO BID PRN (Reason: constipation) Qty: 238 0RF Rx Instructions: If no BM x 3 days sennosides [senna] 8.6 mg tablet 8.6 mg PO BEDTIME Qty: 90 3RF lisinopril 40 mg Tablet 40 mg PO DAILY aspirin 81 mg capsule 81 mg PO DAILY Qty: 30 0RF Tresiba FlexTouch U-100 100 unit/mL (3 mL) insulin pen 18 unit subcut BEDTIME Qty: 15 4RF rosuvastatin 20 mg tablet 20 mg PO BEDTIME levothyroxine 100 mcg tablet 100 mcg PO DAILY amlodipine 5 mg tablet 5 mg PO DAILY (DME) lancets [OneTouch Delica Lancets] 33 gauge misc See Rx Instructions .ROUTE .MEDSUPPLY Qty: 100 5RF Rx Instructions: TID (DME) OneTouch Ultra Blue Test Strip Strip See Rx Instructions .ROUTE .MEDSUPPLY Qty: 100 4RF Rx Instructions: tid
[2023-01-19] MEDS: Meclizine HCl 25 MG TABLET PO (16:42)
--- NOTE | 2023-01-19 18:31 | MHC.EDTECH ---
Patient feed dinner
[2023-01-19] MEDS: Doxycycline Monohydrate 100 MG CAPSULE PO (18:44)
== END 2023-01-19 18:56 | disposition home or self-care (01) ==
PROVIDERS: Emergency Provider Emergency Medicine; PCP Internal Medicine
DX: L03.115 Cellulitis of right lower limb (principal); R42 Dizziness and giddiness; E11.9 Type 2 diabetes mellitus without complications; I10 Essential (primary) hypertension; E78.5 Hyperlipidemia, unspecified; F17.210 Nicotine dependence, cigarettes, uncomplicated; Z87.440 Personal history of urinary (tract) infections; Z95.0 Presence of cardiac pacemaker; Z79.4 Long term (current) use of insulin; Z79.899 Other long term (current) drug therapy
CPT/HCPCS: 36415; 70450; 80048; 81003; 85025; 93005; 99284

== ENCOUNTER 2023-04-17 11:07 | Outpatient (AMB) | payer MEDICARE, MEDICAID, SELFPAY ==
--- NOTE | 2023-04-17 11:08 | MHC.PC.OV ---
Vital Signs 04/17/23 11:10 Weight 130 lb 2 oz BP 120/76 Blood Pressure Location Rt brachial Position Sitting Pulse 62 Pulse Source Pulse Oximeter Pulse Oximetry (%) 96 Oxygen Delivery Method Room Air Intake Visit Reasons: 4m follow up Allergies atorvastatin Allergy (Unknown, Verified 04/17/23 11:11) pt does not know azithromycin Allergy (Unknown, Verified 04/17/23 11:11) pt does not know ceftriaxone Allergy (Unknown, Verified 04/17/23 11:11) pt does not know cephalexin Allergy (Unknown, Verified 04/17/23 11:11) pt does not know citalopram Allergy (Unknown, Verified 04/17/23 11:11) pt does not know levofloxacin Allergy (Unknown, Verified 04/17/23 11:11) pt does not know metformin Allergy (Unknown, Verified 04/17/23 11:11) pt does not know nitrofurantoin Allergy (Unknown, Verified 04/17/23 11:11) pt does not know oxycodone Allergy (Unknown, Verified 04/17/23 11:11) pt does not know penicillin V Allergy (Unknown, Verified 04/17/23 11:11) pt does not know pioglitazone Allergy (Unknown, Verified 04/17/23 11:11) pt does not know repaglinide Allergy (Unknown, Verified 04/17/23 11:11) pt does not know rosuvastatin [Crestor] Allergy (Unknown, Verified 04/17/23 11:11) pt does not know sertraline Allergy (Unknown, Verified 04/17/23 11:11) pt does not know simvastatin Allergy (Unknown, Verified 04/17/23 11:11) pt does not know sulfacetamide Allergy (Unknown, Verified 04/17/23 11:11) pt does not know Cefuroxime Sodium Allergy (Unknown, Uncoded 04/17/23 11:11) pt does not know Medication List - Last Reconciled 04/17/23 by Ashley Morales MD allopurinol 100 mg PO DAILY 90 days amlodipine 5 mg PO DAILY aspirin 81 mg PO DAILY blood sugar diagnostic tid blood sugar diagnostic (FreeStyle Lite Strips) test blood sugar 3 times per day blood-glucose meter (Embee Mobileuch Ultra2 Meter) tid cholecalciferol (vitamin D3) 125 mcg PO DAILY clopidogrel 75 mg PO DAILY cyanocobalamin (vitamin B-12) 1,000 mcg PO DAILY docusate sodium (Colace) 100 mg PO BID donepezil 5 mg PO BEDTIME famotidine 40 mg PO DAILY gabapentin 100 mg PO BID insulin degludec (Tresiba FlexTouch U-100 insulin) 18 units (0.18 mL) subcut BEDTIME lancets (OneTouch Delica Lancets) TID levothyroxine 100 mcg PO DAILY lisinopril 40 mg PO DAILY metoprolol succinate ER 50 mg (2 x 25 mg) PO DAILY pen needle, diabetic (Comfort EZ Pen [place]) As directed polyethylene glycol 3350 (Miralax) 17 grams PO BID PRN pyridoxine (vitamin B6) 100 mg PO DAILY 90 days rosuvastatin 20 mg PO BEDTIME sennosides (senna) 8.6 mg PO BEDTIME Tobacco use date assessed: 12/15/22 HPI 4m follow up HPI Details Patient presents for the follow-up of insulin-dependent diabetes hypertension hyperlipidemia hypothyroidism, stable on medications [facility], [facility] Medical History Annual physical exam HTN (hypertension) IDDM (insulin dependent diabetes mellitus) Diverticulitis Nephrolithiasis Cataract Hyperlipidemia Pacemaker Myocardial infarct Macular degeneration Nephrolithiasis Dementia Frequent UTI HTN (hypertension) Hypothyroid Diabetes Surgical History Status post lumbar spine surgery for decompression of spinal cord H/O left knee surgery Family History Father Heart attack Mother Heart problem Heart attack Substance use disorder Social History (Updated 04/17/23 @ 11:36 by Ashley Morales MD) Household Members: Children Household Members Other:: lives in assisted living Housing: House Do you presently have visiting nurse or other home services: No Alcohol intake: never Patient Tobacco Use Status: Current everyday Tobacco user Tobacco use type: Cigarette Cigarettes Per Day: 4 Years Smoked: 54 e-Cigarette/Vaping Use: Never Used Advance Directives Date on File: 11/05/20 service: No Current occupational status: retired Cognitive needs: No Hearing needs: No Vision needs: Yes Questionnaire Thrive Questionnaire Date Thrive assessed: 12/15/22 AUDIT C Alcohol Use Questionnaire (AUDIT-C) 1. How often do you have a drink containing alcohol?: Never Total Score: 0 YAHIR-7 AMB Questionnaire YAHIR-7 Date YAHIR - 7 assessed: 12/15/22 Feeling nervous, anxious, or on edge: 0 = Not at all Not being able to stop or control worryin = Not at all Worrying too much about different things: 0 = Not at all Trouble relaxin = Not at all Being so restless that it is hard to sit still: 0 = Not at all Becoming easily annoyed or irritable: 1 = Several days Feeling afraid as if something awful might happen: 0 = Not at all Total YAHIR-7 score (0-4 normal; 5-9 mild; 10-14 moderate; 15-21 severe): 1 Source: Developed by Drs. Manohar Reynoso, Bambi Cisneros, Andres Etienne and colleagues, with an educational mónica from [employer]. Review of Systems Const All systems reviewed & are unremarkable except as noted in HPI and below Reports no additional complaints Eyes Reports no additional complaints ENT Reports no additional complaints Card Reports no additional complaints Resp Reports no additional complaints GI Reports no additional complaints Reports no additional complaints Physical exam (Primary Care) Vital Signs: Last Vital Signs Pulse 62 04/17/23 11:10 BP 92/56 L 04/17/23 11:10 Pulse Ox 96 04/17/23 11:10 Oxygen Delivery Method Room Air 04/17/23 11:10 Tobacco/Smoking Status: Tobacco use Status Tobacco use date assessed 12/15/22 04/17/23 11:13 Patient Tobacco Use Status Current everyday Tobacco 04/17/23 11:13 Tobacco use type Cigarette 04/17/23 11:13 e-Cigarette/Vaping Use Never Used 04/17/23 11:13 Thrive Assessment: Date of Thrive Assessment Date Thrive assessed 12/15/22 04/17/23 11:13 Const General: no acute distress HENMT Head: Yes normal to inspection General nose exam: Normal external nose present Face and sinus: Yes normal facial exam Neck Neck: Yes supple Resp Effort & Inspection: normal respiratory effort Auscultation: clear to auscultation bilaterally Cardio Rhythm: regular rhythm Heart sounds: S1 normal heart sound present and S2 normal heart sound present GI Inspection: Yes normal to inspection Palpation (GI): Soft to palpation Percussion: Yes normal to percussion Auscultation: normal bowel sounds Assessment and Plan Assessment & Plan (1) Hypothyroid: Code(s): E03.9 - Hypothyroidism, unspecified Plan: Continue levothyroxine (2) Dementia: Code(s): F03.90 - Unspecified dementia, unspecified severity, without behavioral disturbance, psychotic disturbance, mood disturbance, and anxiety Plan: Continue donepezil (3) HTN (hypertension): Comment: BP < 130/80 Code(s): I10 - Essential (primary) hypertension Plan: Continue current medications (4) Diabetes: Comment: A1C < 8 Code(s): E11.9 - Type 2 diabetes mellitus without complications Plan: Continue ADA diet and insulin return for fasting blood work before next visit (5) Hyperlipidemia: Code(s): E78.5 - Hyperlipidemia, unspecified Plan: Continue statin Orders: Orders Hemoglobin A1c 4 Months E03.9 - Hypothyroidism, unspecified, E11.9 - Type 2 diabetes mellitus without complications, E78.5 - Hyperlipidemia, unspecified, F03.90 - Unspecified dementia, unspecified severity, without behavioral disturbance, psychotic disturbance, mood disturbance, and anxiety, I10 - Essential (primary) hypertension Comprehensive [place]. Panel Fast 4 Months E03.9 - Hypothyroidism, unspecified, E11.9 - Type 2 diabetes mellitus without complications, E78.5 - Hyperlipidemia, unspecified, F03.90 - Unspecified dementia, unspecified severity, without behavioral disturbance, psychotic disturbance, mood disturbance, and anxiety, I10 - Essential (primary) hypertension Lipid Panel 4 Months E03.9 - Hypothyroidism, unspecified, E11.9 - Type 2 diabetes mellitus without complications, E78.5 - Hyperlipidemia, unspecified, F03.90 - Unspecified dementia, unspecified severity, without behavioral disturbance, psychotic disturbance, mood disturbance, and anxiety, I10 - Essential (primary) hypertension Complete Blood Count Auto Diff 4 Months E03.9 - Hypothyroidism, unspecified, E11.9 - Type 2 diabetes mellitus without complications, E78.5 - Hyperlipidemia, unspecified, F03.90 - Unspecified dementia, unspecified severity, without behavioral disturbance, psychotic disturbance, mood disturbance, and anxiety, I10 - Essential (primary) hypertension TSH reflex Free T4 4 Months E03.9 - Hypothyroidism, unspecified, E11.9 - Type 2 diabetes mellitus without complications, E78.5 - Hyperlipidemia, unspecified, F03.90 - Unspecified dementia, unspecified severity, without behavioral disturbance, psychotic disturbance, mood disturbance, and anxiety, I10 - Essential (primary) hypertension Medications: Discontinued doxycycline hyclate Discontinued Reason: Doctor's Order 100 mg PO BID 13 tabs 0RF Coding Level of Care Code Est Pt Level 4 (44945) Diagnoses Hypothyroid E03.9 Dementia F03.90 HTN (hypertension) I10 Diabetes E11.9 Hyperlipidemia E78.5
[2023-04-17 11:10] VITALS: BP 120/76; PULSE 62; O2SAT 96
== END 2023-04-17 11:38 | disposition home or self-care (01) ==
PROVIDERS: PCP Internal Medicine; Visit Provider Internal Medicine
DX: E03.9 Hypothyroidism, unspecified (principal); F03.90 Unspecified dementia, unspecified severity, without behavioral disturbance, psychotic disturbance, mood disturbance, and anxiety; E11.9 Type 2 diabetes mellitus without complications; I10 Essential (primary) hypertension; E78.5 Hyperlipidemia, unspecified
CPT/HCPCS: 99214

== ENCOUNTER 2023-05-02 13:48 | Outpatient (REF) | payer MEDICARE, MEDICAID, SELFPAY ==
--- NOTE | 2023-05-02 14:42 | MHC.AU.HA3 ---
Hearing Instrument Follow-Up- Binaural Date of Visit: 05/02/23 Right Ear: Yohannes, Model, Color, Serial Number: Charlene Hull [id number] SN: [id number] Color: Graphite Bernard Lumber Stacker Repair Warranty: 03/30/2023 Lumber Stacker Loss and Damage Warranty: USED 10/05/2020 Battery Size: 13 Train Starter/Slim Tube: 2M Earmold/Dome/CShell/SlimTip:Small power dome with retention tail Type of Wax Guard: CeruShield Dispensed By: [facility] Date of Fittin01/12/2020 Left Ear: Yohannes, Model, Color, Serial Number: Charlene Hull [id number] SN: [id number] Color: Graphite Bernard Lumber Stacker Repair Warranty: 03/30/2023 Lumber Stacker Loss and Damage Warranty: USED 11/28/2022 Battery Size: 13 Train Starter/Slim Tube: 2M Earmold/Dome/CShell/SlimTip: Small power dome with retention tail Type of Wax Guard: CeruShield Dispensed By: [facility] Date of Fittin01/12/2020 Follow-Up Summary: Fit left replacement hearing aid that had arrived back in November. China reported that since then, she also lost her right hearing aid. L&D has already been used on the right device. Her daughter reported they are hoping to find it when they have more time to look around her house again. Reprogrammed left hearing aid to previous settings. Practiced insertion as initially China was not inserting the retention tail properly or the dome fully into her ear. Advised that retention tail should be in annabella bowl and crab steamer wire should be flush against head. China has a hearing test scheduled 05/21/2023. She is hoping to find her right hearing aid by then. If found, her left and right hearing aids should be reprogrammed together following the updated hearing test. If it is not found, a new device would need to be ordered following prior approval through insurance. Recommendations: Hearing instrument follow-up or maintenance as needed. Please contact our clinic with any questions or concerns. Diagnosis Code(s): Primary Diagnosis: H90.3 Bilateral Sensorineural Hearing Loss Signature: Provider: Isamar Landeros, [facility]
== END 2023-05-02 13:49 | disposition home or self-care (01) ==
LOC: HO.HAP 13:48
PROVIDERS: Visit Provider Internal Medicine
DX: Z13.89 Encounter for screening for other disorder (principal)

== ENCOUNTER 2023-05-21 12:59 | Outpatient (REF) | payer MEDICARE, MEDICAID, SELFPAY ==
--- NOTE | 2023-05-21 14:09 | MHC.AU.HA1 ---
Hearing Aid Evaluation Date of Visit: 05/21/23 Historical Information: Description of Hearing: Mild to severe sensorineural hearing loss. Current personal amplification information, if applicable: Phonak MedSynergieseo M70 13-[id number]. Summary: Pt's daughter reports that they have been unable to locate the right hearing aid since their last visit 05/02/2023 at which time they had noted it was missing. L&D has already been used for both devices. Once medical clearance and prior authorization are obtained a new device, identical to the lost aid, shall be ordered. Advised patient to have cerumen removed from the right ear prior to fitting and to be sure to bring the left device so that they can be programmed together. Hearing Aid Prescription: Based on the individual?s shared listening needs, communication environments, dexterity, desire for connectivity, and personal preferences, the following prescription for amplification has been made: Right ear: Make, Model, Color: Phonak Audeo [id number], graphite ansari, Battery Size: 13 Certified Personal Finance Counselor/Slim Tube: 2M Type of Earmold/Dome/CShell/SlimTip: Small power dome with retention tail Plan of Care: Patient wishes to purchase hearing aids as prescribed Action Taken/Action Needed: Prior authorization to be requested Medical Clearance to be requested from PCP/ENT Primary Diagnosis: H90.3 Bilateral Sensorineural Hearing Loss Signature: Provider: Anthony Putnam, [facility]
--- NOTE | 2023-05-21 14:56 | MHC.AU.MED ---
Medical Clearance for Hearing Instrumentation Date: 05/21/23 Patient Name: China Carter Date of : 1945 Primary Care Provider: Jaxon Romo [facility] We have seen your patient on 05/21/23 and have determined that they are a candidate for amplification (See accompanying report). Specifically, they would benefit from: Hearing aid use in both ears There is a statute that addresses Medical Evaluation Requirements prior to fitting a patient with a hearing aid. According to [place] statute 265 CMR:6.03(1), (a) General. Except as provided in 265 CMR 6.03(1)(b), a teacher of the deaf/hard of hearing shall not sell a hearing aid unless the prospective user has presented to the teacher of the deaf/hard of hearing a written statement signed by a licensed physician that states that the patient's hearing loss has been medically evaluated and the patient may be considered a candidate for a hearing aid. The medical evaluation must have taken place within the preceding six months. Please note: Due to the [place] Statute referenced above, we cannot accept a signature other than that of a licensed physician. FINANCIAL HEALTH COUNSELOR and PA signatures cannot be accepted. I am in agreement with the above recommendation. There is no medical contraindication for hearing instrumentation. Physician Signature Date Physician Name (Printed)
== END 2023-05-21 13:00 | disposition home or self-care (01) ==
LOC: HO.SH 12:59
PROVIDERS: Visit Provider Nurse Practitioner Family
DX: Z01.118 Encounter for examination of ears and hearing with other abnormal findings (principal); Z46.1 Encounter for fitting and adjustment of hearing aid; H90.3 Sensorineural hearing loss, bilateral
CPT/HCPCS: 92557; 92590

== ENCOUNTER 2023-06-06 14:05 | Outpatient (AMB) | payer MEDICARE, MEDICAID, SELFPAY ==
[2023-06-06 15:01] VITALS: BP 128/64; PULSE 60; O2SAT 96
--- NOTE | 2023-06-06 15:01 | MHC.PC.OV ---
Vital Signs 06/06/23 15:01 Weight 140 lb BP 128/64 Blood Pressure Location Lt brachial Position Sitting Pulse 60 Pulse Source Pulse Oximeter Pulse Oximetry (%) 96 Oxygen Delivery Method Room Air Intake Visit Reasons: Ear wax cleaning Intake Note: Pt is here today for a follow up visit. Pt states that she needs her R ear flushed due to wax. Allergies atorvastatin Allergy (Unknown, Verified 06/06/23 15:07) pt does not know azithromycin Allergy (Unknown, Verified 06/06/23 15:07) pt does not know ceftriaxone Allergy (Unknown, Verified 06/06/23 15:07) pt does not know cephalexin Allergy (Unknown, Verified 06/06/23 15:07) pt does not know citalopram Allergy (Unknown, Verified 06/06/23 15:07) pt does not know levofloxacin Allergy (Unknown, Verified 06/06/23 15:07) pt does not know metformin Allergy (Unknown, Verified 06/06/23 15:07) pt does not know nitrofurantoin Allergy (Unknown, Verified 06/06/23 15:07) pt does not know oxycodone Allergy (Unknown, Verified 06/06/23 15:07) pt does not know penicillin V Allergy (Unknown, Verified 06/06/23 15:07) pt does not know pioglitazone Allergy (Unknown, Verified 06/06/23 15:07) pt does not know repaglinide Allergy (Unknown, Verified 06/06/23 15:07) pt does not know rosuvastatin [Crestor] Allergy (Unknown, Verified 06/06/23 15:07) pt does not know sertraline Allergy (Unknown, Verified 06/06/23 15:07) pt does not know simvastatin Allergy (Unknown, Verified 06/06/23 15:07) pt does not know sulfacetamide Allergy (Unknown, Verified 06/06/23 15:07) pt does not know Cefuroxime Sodium Allergy (Unknown, Uncoded 06/06/23 15:07) pt does not know Tobacco use date assessed: 06/06/23 Fall risk assessment: No Falls in past year Last assessed Fall Risk: 06/06/23 Dental Screening Dental Screen Date: 06/06/23 Did you have a dental visit in the last 12 months?: No Did you have a dental problem in the last 6 months where you did not have access to dental care?: No Was dental information given to patient?: Patient declined HPI Ear wax cleaning HPI Details Patient complains of blocked right ear and decreased hearing but no pain, fever sore throat. Type 2 diabetes and hypertension are controlled on current medications [facility] Medical History Annual physical exam HTN (hypertension) IDDM (insulin dependent diabetes mellitus) Diverticulitis Nephrolithiasis Cataract Hyperlipidemia Pacemaker Myocardial infarct Macular degeneration Nephrolithiasis Dementia Frequent UTI HTN (hypertension) Hypothyroid Diabetes Surgical History Status post lumbar spine surgery for decompression of spinal cord H/O left knee surgery Family History Father Heart attack Mother Heart problem Heart attack Substance use disorder Social History (Updated 04/17/23 @ 11:36 by Ashley Morales MD) Household Members: Children Household Members Other:: lives in assisted living Housing: House Do you presently have visiting nurse or other home services: No Alcohol intake: never Patient Tobacco Use Status: Current everyday Tobacco user Tobacco use type: Cigarette Cigarettes Per Day: 4 Years Smoked: 54 Packs per year/per ci.80 e-Cigarette/Vaping Use: Never Used Advance Directives Date on File: 11/05/20 service: No Current occupational status: retired Cognitive needs: No Hearing needs: No Vision needs: Yes Questionnaire Thrive Questionnaire Date Thrive assessed: 12/15/22 AUDIT C Alcohol Use Questionnaire (AUDIT-C) 1. How often do you have a drink containing alcohol?: Never 3. How often do you have six or more drinks on one occasion?: Never Total Score: 0 YAHIR-7 AMB Questionnaire YAHIR-7 Date YAHIR - 7 assessed: 12/15/22 Source: Developed by Drs. Manohar Reynoso, Bambi Cisneros, Andres Etienne and colleagues, with an educational mónica from [employer]. Review of Systems Const All systems reviewed & are unremarkable except as noted in HPI and below Reports no additional complaints Eyes Reports no additional complaints ENT Reports no additional complaints Card Reports no additional complaints Resp Reports no additional complaints GI Reports no additional complaints Reports no additional complaints Physical exam (Primary Care) Vital Signs: Last Vital Signs Pulse 60 06/06/23 15:01 BP 128/64 06/06/23 15:01 Pulse Ox 96 06/06/23 15:01 Oxygen Delivery Method Room Air 06/06/23 15:01 Tobacco/Smoking Status: Tobacco use Status Tobacco use date assessed 06/06/23 06/06/23 15:05 Patient Tobacco Use Status Current everyday Tobacco 06/06/23 15:05 Tobacco use type Cigarette 06/06/23 15:02 e-Cigarette/Vaping Use Never Used 06/06/23 15:02 Thrive Assessment: Date of Thrive Assessment Date Thrive assessed 12/15/22 06/06/23 15:02 Const General: no acute distress HENMT Ears: unable to visualize TM (Impacted cerumen) on the right Face and sinus: Yes normal facial exam Throat: Yes posterior oropharynx normal Eyes General: appearance normal, both eyes and all related structures Resp Effort & Inspection: normal respiratory effort Auscultation: clear to auscultation bilaterally Cardio Rhythm: regular rhythm Heart sounds: S1 normal heart sound present and S2 normal heart sound present Assessment and Plan Assessment & Plan (1) Excessive cerumen in right ear canal: Code(s): H61.21 - Impacted cerumen, right ear Plan: cerumen removal done, pt tolerated it well (2) HTN (hypertension): Comment: BP < 130/80 Code(s): I10 - Essential (primary) hypertension Plan: cont meds (3) Diabetes: Comment: A1C < 8 Code(s): E11.9 - Type 2 diabetes mellitus without complications Plan: ADA diet, cont Insulin Coding Level of Care Code Est Pt Level 3 (11346) Diagnoses Excessive cerumen in right ear canal H61.21 HTN (hypertension) I10 Diabetes E11.9
== END 2023-06-06 15:23 | disposition home or self-care (01) ==
PROVIDERS: PCP Internal Medicine; Visit Provider Internal Medicine
DX: H61.21 Impacted cerumen, right ear (principal); I10 Essential (primary) hypertension; E11.9 Type 2 diabetes mellitus without complications
CPT/HCPCS: 99213

== ENCOUNTER 2023-07-20 18:17 | Emergency (ER) | payer MEDICARE, MEDICAID, SELFPAY ==
--- NOTE | ~2023-07-20 | CT_ITS ---
EXAMINATION: CT PELVIS WITH CONTRAST CLINICAL INFORMATION: Suprapubic lump. Concern for abscess. COMPARISON: 06/26/2022 TECHNIQUE: Helical scanning was performed with submillimeter collimation through the pelvis with the use of oral contrast and during bolus intravenous injection of 85 mL of Omnipaque 350 intravenous contrast. Sagittal and coronal multiplanar 2-D reconstructions were obtained. This CT examination was performed using dose optimization techniques as appropriate, variously including the following: *Automated exposure control *Adjustment of mA and/or kV according to patient size (this includes techniques or standardized protocols for targeted exams where dose is matched to indication/reason for exam; i.e. extremities or head) *Use of iterative reconstruction technique DLP: 183 mGy-cm FINDINGS: PELVIS: There is no pelvic mass. The urinary bladder is unremarkable. There are diverticula of the descending colon. There is retained stool with sigmoid colonic distention up to 7.6 cm. OSSEOUS STRUCTURES: The bony structures are osteopenic. There is mild bilateral hip degenerative change. There is lower lumbar disc degenerative change. SOFT TISSUES: There is suprapubic pubic cutaneous defect just to the right of midline with subcutaneous thickening and infiltration without fluid collection. CT/CT pelvis w IV con IMPRESSION: Suprapubic pubic cutaneous defect just to the right of midline with subcutaneous thickening and infiltration without fluid collection. Apparent constipation.
[2023-07-20 18:23] VITALS: BP 131/58; PULSE 60; RESP 18; TEMP 37; O2SAT 98
--- NOTE | 2023-07-20 18:24 | ED.GENADULT ---
HPI - General Adult General Chief complaint: Urogenital-Female Stated complaint: PCP wants pt to get a CT scan Time Seen by Provider: 07/20/23 23:03 Source: patient, family (Patient's daughter) and RN notes reviewed Mode of arrival: ambulatory Limitations: no limitations History of Present Illness HPI narrative: 77-year-old female presents for evaluation of redness, pain and swelling in the suprapubic region Patient reports that she 1st noticed discomfort about a month ago She states that over the last few days it has been worse The area is to her lower abdomen approximately around her belt line per her report Denies any drainage from the area She went to urgent care today and was told to go to the ER for further evaluation Denies any fevers or chills Denies any urinary discomfort Related Data Home Medications Medication Instructions Recorded Confirmed lisinopril 40 mg tablet 40 mg PO DAILY 11/04/20 04/17/23 amlodipine 5 mg tablet 5 mg PO DAILY 12/14/21 04/17/23 levothyroxine 100 mcg tablet 100 mcg PO DAILY 12/14/21 04/17/23 rosuvastatin 20 mg tablet 20 mg PO BEDTIME 12/14/21 04/17/23 Previous Rx's Medication Instructions Recorded blood-glucose meter (OneTouch #100 ea 09/01/20 Ultra2 Meter) insulin degludec 100 unit/mL (3 18 unit (0.18 mL) subcut BEDTIME 07/20/21 mL) subcutaneous pen (Tresiba #15 mL FlexTouch U-100 insulin) pyridoxine (vitamin B6) 100 mg 100 mg PO DAILY 90 days #90 tabs 09/27/21 tablet blood sugar diagnostic #100 ea 10/20/21 lancets 33 gauge (OneTouch Delica #100 ea 10/20/21 Lancets) pen needle, diabetic 33 gauge x #100 ea 11/18/21 (Comfort EZ Pen [place]) cyanocobalamin (vitamin B-12) 1,000 mcg PO DAILY #30 tabs 12/30/21 1,000 mcg tablet blood sugar diagnostic (FreeStyle #100 ea 01/13/22 Lite Strips) cholecalciferol (vitamin D3) 125 125 mcg PO DAILY #90 caps 02/16/22 mcg (5,000 unit) capsule famotidine 40 mg tablet 40 mg PO DAILY #90 tabs 02/16/22 clopidogrel 75 mg tablet 75 mg PO DAILY #90 tabs 03/09/22 donepezil 5 mg tablet 5 mg PO BEDTIME #90 tabs 03/09/22 gabapentin 100 mg capsule 100 mg PO BID #180 caps 03/09/22 metoprolol succinate 25 mg 50 mg (2 x 25 mg) PO DAILY #90 tabs 03/09/22 tablet,extended release 24 hr allopurinol 100 mg tablet 100 mg PO DAILY 90 days #90 tabs 03/27/22 aspirin 81 mg capsule 81 mg PO DAILY #30 caps 06/26/22 docusate sodium 100 mg capsule 100 mg PO BID #180 caps 11/10/22 (Colace) polyethylene glycol 3350 17 17 g PO BID PRN constipation #238 11/10/22 gram/dose oral powder (Miralax) grams sennosides 8.6 mg tablet (senna) 8.6 mg PO BEDTIME #90 tabs 11/10/22 doxycycline hyclate 100 mg tablet 100 mg PO BID #14 tabs 07/21/23 Allergies Allergy/AdvReac Type Severity Reaction Status Date / Time atorvastatin Allergy Unknown pt does Verified 07/20/23 18:26 not know azithromycin Allergy Unknown pt does Verified 07/20/23 18:26 not know ceftriaxone Allergy Unknown pt does Verified 07/20/23 18:26 not know cephalexin Allergy Unknown pt does Verified 07/20/23 18:26 not know citalopram Allergy Unknown pt does Verified 07/20/23 18:26 not know levofloxacin Allergy Unknown pt does Verified 07/20/23 18:26 not know metformin Allergy Unknown pt does Verified 07/20/23 18:26 not know nitrofurantoin Allergy Unknown pt does Verified 07/20/23 18:26 not know oxycodone Allergy Unknown pt does Verified 07/20/23 18:26 not know penicillin V Allergy Unknown pt does Verified 07/20/23 18:26 not know pioglitazone Allergy Unknown pt does Verified 07/20/23 18:26 not know repaglinide Allergy Unknown pt does Verified 07/20/23 18:26 not know rosuvastatin [Crestor] Allergy Unknown pt does Verified 07/20/23 18:26 not know sertraline Allergy Unknown pt does Verified 07/20/23 18:26 not know simvastatin Allergy Unknown pt does Verified 07/20/23 18:26 not know sulfacetamide Allergy Unknown pt does Verified 07/20/23 18:26 not know Cefuroxime Sodium Allergy Unknown pt does Uncoded 06/06/23 15:07 not know Review of Systems Constitutional: Constitutional: Denies body ache(s), Denies chills and Denies fever(s) Gastrointestinal: Gastrointestinal: Denies abdominal pain Integumentary/Breasts: Skin/Breast: Reports erythema, Reports skin pain and Reports skin swelling PMFSH Past Medical History Medical History Annual physical exam HTN (hypertension) IDDM (insulin dependent diabetes mellitus) Diverticulitis Nephrolithiasis Cataract Hyperlipidemia Pacemaker Myocardial infarct Macular degeneration Nephrolithiasis Dementia Frequent UTI HTN (hypertension) Hypothyroid Diabetes Surgical History Status post lumbar spine surgery for decompression of spinal cord H/O left knee surgery Family History Family History Father Heart attack Mother Heart problem Heart attack Substance use disorder Social History Social History (Updated 04/17/23 @ 11:36 by Ashley Morales MD) Household Members: Children Household Members Other:: lives in assisted living Housing: House Do you presently have visiting nurse or other home services: No Alcohol intake: never Patient Tobacco Use Status: Current everyday Tobacco user Tobacco use type: Cigarette Cigarettes Per Day: 4 Years Smoked: 54 e-Cigarette/Vaping Use: Never Used Advance Directives: Yes Advance Directives on File: Yes Advance Directives Date on File: 11/05/20 service: No Current occupational status: retired Cognitive needs: No Hearing needs: No Vision needs: Yes Physical Exam ED Vital Signs: Vital Signs - 24 hr 07/20/23 18:23 07/20/23 21:21 Temperature 98.6 F 98.0 F Pulse Rate 60 59 Respiratory Rate 18 16 Blood Pressure 131/58 L 154/55 H Pulse Oximetry 98 96 Oxygen Delivery Method Room Air Room Air BMI result Body Mass Index 30.0 Const General: healthy appearing, comfortable, no acute distress, alert and awake Nutritional Appearance: well nourished Orientation/consciousness: patient oriented x3 HENMT Head: Yes normocephalic and Yes atraumatic Eyes Eyelids: Yes eyelids normal Conjunctivae: conjunctivae normal Sclerae: sclerae normal Corneas: corneas normal Pupils: Equal, round and reactive pupils present EOM: EOMs intact bilaterally Neck Neck: Yes full ROM Resp Effort & Inspection: normal respiratory effort, able to speak in complete sentences and not labored GI Inspection: No distended Palpation (GI): Soft to palpation, not firm, nontender, no guarding and not rigid Skin Other: Patient has an area of induration, edema and ecchymosis to the suprapubic region. There is no significant erythema. The area is tender to palpation. There is no fluctuance or drainage. This does not extend down towards the vagina. General skin exam: elasticity normal Neuro General: patient oriented x3 Cranial nerves: Yes Equal, round and reactive pupils present and Yes Bilaterally intact EOM present Cognition (Neuro): normal cognition Extrem Other: Moving all extremities well without any obvious deformities Course Course Course Narrative: RME:?77 yo female here for eval of lump to groin x1 mo. was evaluated at [facility] who advised them to come to ED for imaging. Currently lives at a rest home and staff initially thought it was a boil. Patient states that it has been progressing and getting larger/or painful. Denies fever or chills at home. No nausea or vomiting. No dysuria. Induration and erythema noted to suprapubic region with central pointing. No drainage. exam limited in triage Labs CT ordered. Full HPI, ROS and PE to be performed by the primary ED provider. Reevaluation(s) Reevaluation #1: Patient's CT scan shows likely cellulitis with no evidence of drainable abscess. Will treat with doxycycline. I discussed this with the patient, she will follow up with her PCP Time: 01:37 Medications Administered Discontinued Medications Generic Name Dose Route Start Last Admin Trade Name Freq PRN Reason Stop Dose Admin Iohexol 85 ml 07/21/23 00:22 07/21/23 00:26 Iohexol 350 Mg/Ml 100 Ml Infus..Btl IV 07/21/23 00:23 85 ml ONCE ONE Administration Medical Decision Making Medical Decision Making MDM Narrative: 77-year-old female presents for evaluation for a possible abscess to the lower abdomen. This is not around the area of her vagina. It is more suprapubic region. The area is indurated, edematous with ecchymosis, no significant erythema but the area is tender to palpation. Differential includes hematoma, malignancy, abscess, cellulitis. Her labs are unremarkable, plan for CT scan with IV contrast to better evaluate Differential Diagnosis Differential Diagnoses: The differential diagnosis associated with the presentation includes See above Lab Data MDM Lab Attestation statement: I reviewed the patient's lab results. No leukocytosis or anemia. No significant electrolyte abnormalities. The patient's chloride is slightly elevated to 109 and the patient's BUN is slightly elevated 23 with a normal creatinine 0.79. 07/20/23 18:46 07/20/23 18:46 Labs: Lab Results 07/20/23 Range/Units 18:46 WBC 10.8 (4.8-10.8) X10*3/uL RBC 4.57 (4.20-5.50) X10*6/uL Hgb 13.3 (12.0-16.0) g/dl Hct 41.8 (37.0-47.0) % MCV 91.5 (80.0-98.0) fL MCH 29.1 (27.0-33.0) pg MCHC 31.8 (31.0-35.0) g/dl RDW 14.9 (11.0-16.0) % Plt Count 262 (160-400) X10*3/uL MPV 9.4 (9.4-12.3) fL Immature Gran % (Auto) 0.2 (0.0-0.4) % Neut % (Auto) 67.3 (45-73) % Lymph % (Auto) 24.7 (20-40) % [place] % (Auto) 5.9 (2-11) % Eos % (Auto) 1.2 (0-4) % Baso % (Auto) 0.7 (0-2) % Lymph # (Auto) 2.7 (1.2-4.9) X10*3/uL [place] # (Auto) 0.6 (0.1-1.2) X10*3/uL Eos # (Auto) 0.1 (0.0-0.4) X10*3/uL Baso # (Auto) 0.1 (0.0-0.2) X10*3/uL Abs Immat Gran (auto) 0.02 (0.00-0.03) X10*3/uL Absolute Neuts (auto) 7.2 (2.0-8.3) x10*3/uL Absolute Nucleated RBC 0.000 (0.0-0.012) X10*3/uL Nucleated RBC % (auto) 0.0 (0.0-0.2) /100WBC Sodium 143 (135-145) mmol/L Potassium 4.4 (3.3-5.1) mmol/L Chloride 109 H (96-108) mmol/L Carbon Dioxide 28 (22-29) mmol/L Anion Gap 10 L (12-20) BUN 23 H (9-16) mg/dL Creatinine 0.79 (0.5-1.4) mg/dL Estim Creat Clear Calc 60.9 Estimated GFR > 60 Random Glucose 115 (60-115) mg/dL Calcium 9.3 D (8.4-10.2) mg/dL Radiology Impression Discussion of test interpretation with radiology: I have reviewed the radiologist's reading. (Cutaneous defect without fluid collection) Discharge Plan Discharge Clinical Impression: Cellulitis Patient Disposition: Home, Self-Care Instructions: Cellulitis (ED) Additional Instructions: Your CT scan did not show any evidence of abscess or fluid collection that would require drainage Take the antibiotics for a skin infection twice a day for 1 week Apply warm compresses to the area every 4 hours for 15 minutes Follow-up with your primary doctor and return for new or worsening symptoms Prescriptions: New doxycycline hyclate 100 mg tablet 100 mg PO BID Qty: 14 0RF No Action (DME) blood-glucose meter [[facility]Touch [facility]2 Meter[facility] See Rx Instructions .ROUTE .MEDSUPPLY Qty: 100 3RF Rx Instructions: tid pyridoxine (vitamin B6) 100 mg tablet 100 mg PO DAILY 90 Days Qty: 90 3RF (DME) pen needle, diabetic [Comfort EZ Pen [place]] 33 gauge x 5/32 needle See Rx Instructions .Route Qty: 100 3RF Rx Instructions: As directed cyanocobalamin (vitamin B-12) 1,000 mcg tablet 1,000 mcg PO DAILY Qty: 30 8RF (DME) FreeStyle Lite Strips Strip See Rx Instructions .Route Qty: 100 5RF Rx Instructions: test blood sugar 3 times per day famotidine 40 mg tablet 40 mg PO DAILY Qty: 90 3RF cholecalciferol (vitamin D3) 125 mcg (5,000 unit) capsule 125 mcg PO DAILY Qty: 90 3RF donepezil 5 mg tablet 5 mg PO BEDTIME Qty: 90 3RF metoprolol succinate 25 mg tablet extended release 24 hr 50 mg PO DAILY Qty: 90 3RF gabapentin 100 mg capsule 100 mg PO BID Qty: 180 3RF clopidogrel 75 mg tablet 75 mg PO DAILY Qty: 90 3RF allopurinol 100 mg tablet 100 mg PO DAILY 90 Days Qty: 90 1RF docusate sodium [Colace] 100 mg capsule 100 mg PO BID Qty: 180 3RF polyethylene glycol 3350 [Miralax] 17 gram/dose powder 17 g PO BID PRN (Reason: constipation) Qty: 238 0RF Rx Instructions: If no BM x 3 days sennosides [senna] 8.6 mg tablet 8.6 mg PO BEDTIME Qty: 90 3RF lisinopril 40 mg Tablet 40 mg PO DAILY aspirin 81 mg capsule 81 mg PO DAILY Qty: 30 0RF Tresiba FlexTouch U-100 100 unit/mL (3 mL) insulin pen 18 unit subcut BEDTIME Qty: 15 4RF rosuvastatin 20 mg tablet 20 mg PO BEDTIME levothyroxine 100 mcg tablet 100 mcg PO DAILY amlodipine 5 mg tablet 5 mg PO DAILY (DME) lancets [OneTouch Delica Lancets] 33 gauge misc See Rx Instructions .ROUTE .MEDSUPPLY Qty: 100 5RF Rx Instructions: TID (DME) OneTouch Ultra Blue Test Strip Strip See Rx Instructions .ROUTE .MEDSUPPLY Qty: 100 4RF Rx Instructions: tid
[2023-07-20 18:50] LABS: MANUAL DIFF FLAG NO
[2023-07-20 18:52] LABS: Basophils Absolute Auto 0.1 X10*3/uL (0.0-0.2); Basophils Percent Auto 0.7 % (0-2); Eosinophils Absolute Auto 0.1 X10*3/uL (0.0-0.4); Eosinophils Percent Auto 1.2 % (0-4); Hematocrit 41.8 % (37.0-47.0); Hemoglobin 13.3 g/dl (12.0-16.0); Imm Gran Abs Auto 0.02 X10*3/uL (0.00-0.03); Imm Gran Pct Auto 0.2 % (0.0-0.4); Lymphocytes Absolute Auto 2.7 X10*3/uL (1.2-4.9); Lymphocytes Percent Auto 24.7 % (20-40); Mean Corpuscular HGB Conc 31.8 g/dl (31.0-35.0); Mean Corpuscular Hemoglobin 29.1 pg (27.0-33.0); Mean Corpuscular Volume 91.5 fL (80.0-98.0); Mean Platelet Volume 9.4 fL (9.4-12.3); Monocytes Absolute Auto 0.6 X10*3/uL (0.1-1.2); Monocytes Percent Auto 5.9 % (2-11); Neutrophils Absolute Auto 7.2 x10*3/uL (2.0-8.3); Neutrophils Percent Auto 67.3 % (45-73); Platelet Count 262 X10*3/uL (160-400); Red Blood Count 4.57 X10*6/uL (4.20-5.50); Red Cell Distribution Width 14.9 % (11.0-16.0); White Blood Count 10.8 X10*3/uL (4.8-10.8)
[2023-07-20 19:03] LABS: Anion Gap 10 (12-20); Blood Urea Nitrogen 23 mg/dL (9-16); Calcium 9.3 mg/dL (8.4-10.2); Carbon Dioxide 28 mmol/L (22-29); Chloride 109 mmol/L (96-108); Creatinine Clr Calc Pharmacy 60.9; Estimated Glomerular Filt Rate > 60; Glucose Random 115 mg/dL (60-115); Potassium 4.4 mmol/L (3.3-5.1); Sodium 143 mmol/L (135-145)
[2023-07-20 21:21] VITALS: BP 154/55; PULSE 59; RESP 16; TEMP 36.7; O2SAT 96
--- OUTSIDE RECORDS SUMMARY | 2023-07-20 23:04 | XMS_ITS | Continuity of Care Document ---
Author Name Unknown Organization [facility] ter Address [address] [place] [id number] Care Team Providers Care Medical Doctor Nuclear Medicine Name Role Phone Ashley Morales MD Primary Care Physician [place] [facility] [place] 11/09/22 - 11/10/[address] [id number]- Encounter Diagnosis Fecal impaction(Final) - 11/09/22 Abdominal pain(Final) - 11/09/22 Fecal impaction(Final) - 11/10/22 Abdominal pain(Final) - 11/10/22 Discharge Disposition: A-Transfer VNA/Home Health Attending Physician: Yoon Salinas MD Admitting Physician: Bambi Frederick DO Referring Physician: Not on Staff, Referring MD Allergies, Adverse Reactions, Alerts Substance Reaction Severity Status ciprofloxacin Active azithromycin Nausea and vomiting status: disruptive effects Active cephalexin Nausea and vomiting Active penicillin Rash Active simvastatin Active sertraline Anxiety Active atorvastatin Active repaglinide Nausea and vomiting Active citalopram Active sulfa drugs Nausea and vomiting Active pioglitazone Active rosuvastatin 1 Active Nitrofurantoin Monohydrate/Macrocrystals Active Cefuroxime Axetil Acute diarrhea Active cefTRIAXone Acute diarrhea Active metFORMIN Acute diarrhea Active oxyCODONE Active levoFLOXacin 2 Active 1Patient taking rosuvastatin as outpatient (active prescription as of 09/2021). 2numb lips Immunizations Given and Recorded Vaccine Date Status Refusal Reason influenza virus vaccine, inactivated 03/15/22 Cm rded influenza virus vaccine, inactivated 03/14/20 Cm rded influenza virus vaccine, inactivated 04/24/18 Cm rded influenza virus vaccine, inactivated 03/28/16 Cm rded SARS-CoV-2 (COVID-19) mRNA BNT-162b2 vac 04/06/21 Recorded SARS-CoV-2 (COVID-19) mRNA BNT-162b2 vac 08/12/20 Recorded SARS-CoV-2 (COVID-19) mRNA BNT-162b2 vac 07/22/20 Recorded tetanus/diphtheria/pertussis, acel(Tdap) 02/10/15 Recorded Medications allopurinol 100 mg oral tablet 100 mg, 1, tablet, By Mouth, Daily, (LAST FILLED [facility] 10/13/22), Refills 0, Maintenance, 09/18/22 16:24:00 EDT, Partial fill upon patient request if the prescription is for a schedule II opioid drug. Start Date: 09/18/22 Status: Ordered aspirin 81 mg oral delayed release tablet 81 mg, 1, tablet, By Mouth, Daily, # 30 tablet, Refills 0, Tot. Refills 0, Maintenance, 02/24/22 16:24:00 EDT, Route to Pharmacy Electronically, [facility], Partial fill upon patient request if the prescription is for a schedule II opioi... Start Date: 02/24/22 Status: Ordered BD PEN NEEDL MIS [id number] [place] BD PEN NEEDL MIS [id number] [place], 0 Refills, Maintenance, 09/18/22 15:29:00 EDT Start Date: 09/18/22 Status: Ordered donepezil 5 mg oral tablet 5 mg, 1, tablet, By Mouth, Daily at bedtime, (LAST FILLED [facility] 10/12/22), Refills 0,Maintenance, 11/08/19 12:35:00 EDT Start Date: 11/08/19 Status: Ordered famotidine 40 mg oral tablet 1 tablet = 40 mg, By Mouth, Daily, (LAST FILLED [facility] 10/04/22) Start Date: 09/18/22 Status: Ordered gabapentin 100 mg oral capsule 100 mg, 1, capsule, By Mouth, 2 times a day, (LAST FILLED [facility] 10/02/22), Refills 0, Maintenance, 11/08/19 12:31:00 EDT Start Date: 11/08/19 Status: Ordered gabapentin 100 mg oral capsule 100 mg, Capsule, By Mouth, 11/10/22 9:00:00 EDT Start Date: 11/10/22 Stop Date: 11/10/22 Status: Completed levothyroxine 0.1 mg oral tablet 1 tablet = 100 mcg, By Mouth, Daily, (LAST FILLED [facility] 10/03/22), Maintenance, 10/28/22 13:37:00 EDT, Tablet, Partial fill upon patient request if the prescription is for a schedule II opioid drug. Start Date: 10/28/22 Status: Ordered lisinopril 20 mg oral tablet 40 mg, Tablet, By Mouth, 11/10/22 9:00:00 EDT Start Date: 11/10/22 Stop Date: 11/10/22 Status: Completed lisinopril 40 mg oral tablet 1 tablet = 40 mg, By Mouth, Daily, (LAST FILLED [facility] 09/29/22), 0 Refills, Maintenance, 12/06/21 9:32:00 EDT, Tablet, Partial fill upon patient request if the prescription is for a schedule II opioid drug. Start Date: 12/06/21 Status: Ordered loperamide 2 mg oral capsule 2 mg, 1, capsule, By Mouth, Daily, PRN, do not exc not to exceed 8 capsules, or 16 mg, in 24 hours,Refills 0, Maintenance, Loose Stool, 09/18/22 16:15:00 EDT, Partial fill upon patient request if the prescription is for a schedule II opioid drug. Start Date: 09/18/22 Status: Ordered Metoprolol Succinate ER 25 mg oral tablet, extended release 2 tablet = 50 mg, By Mouth, Daily, (LAST FILLED [facility] 10/12/22) Start Date: 12/06/21 Status: Ordered Metoprolol Succinate ER 50 mg oral tablet, extended release 50 mg, XL Tablet, By Mouth, 11/10/22 9:00:00 EDT Start Date: 11/10/22 Stop Date: 11/10/22 Status: Completed morphine 15 mg oral tablet, immediate release 0.5 tablet = 7.5 mg, By Mouth, Every 4 hours, PRN for pain, # 15 tablet, 0 Refills, Maintenance, 10/31/22 8:05:00 EDT, Tablet, [facility], Partial fill upon patient request if the prescription is for a schedule II opioid drug., 160, cm,... Start Date: 10/31/22 Stop Date: 11/05/22 Status: Ordered MorPHINE Immediate Release Tablet 7.5 mg, Tablet, By Mouth, Every 4 hours, PRN for Pain , Severe, Routine, 11/10/22 4:38:00 EDT Start Date: 11/10/22 Stop Date: 11/10/22 Status: Discontinued Plavix 75 mg oral tablet 75 mg, 1, tablet, By Mouth, Daily, (LAST FILLED [facility] 10/12/22), Refills 0, Maintenance, 11/08/19 12:35:00 EDT Start Date: 11/08/19 Status: Ordered polyethylene glycol 3350 oral powder for reconstitution = 17 Gm, By Mouth, 2 times a day, PRN Constipation, dissolve in water or juice before taking, 0 Refills, Maintenance, 09/18/22 16:20:00 EDT, REC Powder, Partial fill upon patient request if the prescription is for a schedule II opioid drug. Start Date: 09/18/22 Status: Ordered rosuvastatin 20 mg oral capsule 1 capsule = 20 mg, By Mouth, Daily, # 90 capsule, 1 Refills, Maintenance, 01/27/22 10:57:00 EDT, Capsule, [facility], Partial fill upon patient request if the prescription is for a schedule II opioid drug., 160, cm, 12/07/21 7:04:00 EDT,... Start Date: 01/27/22 Status: Ordered Senna 8.6 mg oral tablet 8.6 mg, 1, tablet, By Mouth, Daily at bedtime, (LAST FILLED [facility] 10/25/22), Refills 0, Maintenance, 09/18/22 16:26:00 EDT, Partial fill upon patient request if the prescription is for a schedule II opioid drug. Start Date: 09/18/22 Status: Ordered Tresiba FlexTouch 100 units/mL subcutaneous solution = 18 units, Subcutaneous Infusion, Daily at bedtime, 0 Refills, Maintenance, 11/04/22 12:38:00 EDT,Partial fill upon patient request if the prescription is for a schedule II opioid drug. Start Date: 11/04/22 Status: Ordered Tylenol 325 mg oral capsule 2 capsule = 650 mg, By Mouth, Every 4 hours, PRN as needed for fever, # 90 capsule, 0 Refills, Maintenance, 10/18/22 4:27:00 EDT, Capsule, [facility], Partial fill upon patient request if the prescription is for a schedule II opioid drug., 1... Start Date: 10/18/22 Status: Ordered Vitamin B-12 1000 mcg oral tablet 1,000 mcg, 1, tablet, By Mouth, Daily, (LAST FILLED [facility] 10/06/22), Refills 0, Maintenance, 09/18/22 15:30:00 EDT, Partial fill upon patient request if the prescription is for a schedule II opioid drug. Start Date: 09/18/22 Status: Ordered Vitamin B6 100 mg oral tablet 1 tablet = 100 mg, By Mouth, Daily, (LAST FILLED [facility] 10/25/22), Maintenance, 10/28/22 13:42:00 EDT, Tablet, Partial fill upon patient request if the prescription is for a schedule II opioid drug. Start Date: 10/28/22 Status: Ordered Vitamin D3 5000 intl units oral tablet 1 tablet = 125 mcg, By Mouth, Daily, (LAST FILLED [facility] 09/29/22), 0 Refills, Maintenance, 01/26/22 23:18:00 EDT, Tablet, Partial fill upon patient request if the prescription is for a schedule II opioid drug. Start Date: 01/26/22 Status: Ordered Problem List Condition Confirmation Course Effective Dates Status H ealth Status Informant CAD (coronary artery disease) Confirmed Active Gout Confirmed Active HTN (hypertension) Confirmed Active Hypothyroidism Confirmed Active Cognitive impairment Confirmed Active SSS (sick sinus syndrome) Confirmed Active Type 2 diabetes mellitus Confirmed Active Results Radiology Reports * Exam Date Time Procedure Performing Provider Status 11/09/22 10:[address] Angio Abdomen and Pelvis Colon , Ta emily; Auth (Verified) Notes: (CT Angio Abdomen and Pelvis) Reason For Exam: Mesenteric ischemia, acute;Other: RESULT: CT Angio Abdomen and Pelvis CT Angio Abdomen and Pelvis Hx of Present Illness: flank pain. Reason: Mesenteric ischemia, acute. Clinical Question(s): Generalized Abdominal Pain, Mesenteric Ischemia. COMPARISON: None. TECHNIQUE: Axial images were obtained from diaphragm through the pelvis during the intravenous administration of iodinated contrast. 100 cc of Omnipaque 300 was administered intravenously. Delayed (venous) images were also acquired for evaluation of the portal veins. Sagittal and coronal maximum intensity projection (MIP) images were reconstructed and rendered in both arterial and venous phases. Weight-based protocol using automatic tube modulation was used to optimize exposure parameters. RADIATION DOSE PARAMETERS: CTDIvol Body: 16.00 mGy, DLP Body: 1262 mGy*cm. VASCULAR FINDINGS: Abdominal aorta: Severe abdominal aortic vascular calcification. Unchanged peripherally calcified infrarenal abdominal aortic aneurysm measuring 3.4 x 3.0 x 6.2 cm (AP by TR by CC) (405:44, 406:52). Celiac axis: Mild calcification at the origin with mild stenosis. Otherwise, the vessel appears patent distally. Superior mesenteric artery: Moderate calcification at the origin. Severe stenosis in the midportionof the vessel with distal patent lumen (404:261). Right renal artery: Mild calcification at the origin, otherwise patent. Left renal artery: Mild calcification, otherwise patent. Inferior mesenteric artery: Moderate stenosis at the midportion of the vessel (404:451), but patentdistally. Right common iliac artery: Severe vascular calcification. Moderate stenosis (approximately 50%) proximally (404:520) with distal patency. Right internal iliac artery: Moderate vascular calcification, otherwise patent. Right external iliac artery: Severe vascular calcification. Severe stenosis in the midportion of the vessel (404:634). Patent distally. Right common femoral artery: Patent. Visualized right superficial and deep femoral arteries: Patent. Left common iliac artery: Severe vascular calcification. Minimal stenosis (0- 20%) (404:496). Distally Left internal iliac artery: Severe vascular calcification, but patent. Left external iliac artery: Severe vascular calcification with moderate (50-75%) stenosis distally (404:750). Left common femoral artery: Patent. Visualized left superficial and deep femoral arteries: Patent. IVC and hepatic veins: Patent. Portal vein: Patent. Splenic vein: Patent. Superior mesenteric vein: Patent. Inferior mesenteric vein: Patent. Iliac and femoral veins: Patent. NONVASCULAR FINDINGS: Booking Officer View Findings, Lines and Tubes: Defibrillator wires are partially imaged. Visualized Chest: Mild bibasilar atelectasis. Mild, bilateral bronchiectasis. No pleural effusion. Diaphragm: Normal. Liver: Multiple subcentimeter circumscribed low-density lesions likely represent cysts (in the absence of known malignancy). Gallbladder: No CT evidence of gallbladder pathology. Bile ducts: No biliary ductal dilation. Spleen: Normal. Pancreas: Normal. Adrenal glands: Unchanged 1.4 cm left adrenal gland nodule, likely a benign adenoma. No dedicated imaging follow-up required. The right adrenal gland is mildly thickened without discrete measurable lesions. Kidneys and ureters: Right: 0.2 cm nonobstructing calculus in the right upper pole region (501:39, 503:74). No ureteral calculi. No hydronephrosis. No suspicious masses. Simple appearing renal cysts and hypodensities that are too small to characterize are noted, requiring no dedicated imaging follow-up. Left: 0.3 cm nonobstructing calculus in the left interpolar region (501:57, 503:62). A cluster of 0.3 cm partially obstructing renal calculi in the left interpolar region (501:53, 54),503:71). Moderate hydronephrosis. Mild left hydroureter to the left lobe the UVJ without evidence of an obstructing stone. Simple appearing renal cysts and hypodensities that are too small to characterize are noted, requiring no dedicated follow up. Bladder: Normal. Reproductive organs: Status post hysterectomy. Stomach, small bowel, and large bowel: Markedly distended rectosigmoid colon with formed stool in the lumen in caliber measures approximately 9.2 cm. Underdistended distal rectal wall is circumferentially thickened. Moderate diverticulosis of the descending colon without evidence of acute diverticulitis No evidence of bowel wall perforation. No evidence of small bowel obstruction. Mild physiologic distention of the stomach, otherwise normal. Appendix: Not seen, but no evidence of appendicitis. Peritoneum and retroperitoneum: No ascites or pneumoperitoneum. No omental or mesenteric lesions. Lymph nodes: No pathologically enlarged lymph nodes. Abdominal and pelvic wall: Unremarkable. Bones: No acute abnormality. Diffuse bone demineralization. Moderate, multilevel degenerative changes of the visualized spine. Degenerative changes of the hips. Bone island in the right femoral head. IMPRESSION: No evidence of mesenteric ischemia. Unchanged 3.4 cm infrarenal abdominal aortic aneurysm. Multifocal stenosis of the abdominal vesselsas described above. Recommend follow-up ultrasound or CTA in 3 years per simplified ACR and SVS guidelines. Reference: Cali CAMARENA et al. J Vasc Surg 2018; 67:2-77. Society for Vascular Surgery 2018 practice guidelines on the care of patients with an abdominal aortic aneurysm. Large amount of stool in the rectosigmoid colon with circumferential wall thickening in underdistended distal rectal lumen, which may indicate proctitis or neoplasm. Moderate left hydronephrosis and mild hydroureter without evidence of an obstructing stone is likely secondary to the large stool ball in the rectosigmoid. An actionable message ([place]) has been communicated via the [employer] system on 11/09/2022 11:38 PM, Message ID [id number]. I have personally reviewed the images and I agree with this report. WSN: [id number] Ordering Physician: Breanne Teixeira Dictated By: Brian Rey MD Dictated Date/Time: 11/09/22 11:38 p Reviewed By: Savana Thomas MD Signed By: Savana Thomas MD Signed Date/Time: 11/09/22 11:43 pm Transcribed By: FERMIN Transcribed Date/Time: 11/09/22 11:24 pm Vital Signs Most recent to oldest [Reference Range]: 1 2 3 Height 160 cm (11/10/22 11:47 AM) 160 cm (11/10/22 8:44 AM) 160 cm (11/10/22 4:20 AM) Weight 60.6 kg (11/10/22 4:20 AM) Oxygen Saturation [94-100 %] 98 % (11/10/22 11:47 AM) 94 % (11/10/22 8:44 AM) 99 % (11/10/22 4:20 AM) Pulse Rate [55-90 bpm] 59 bpm (11/10/22 11:47 AM) 60 bpm (11/10/22 9:33 AM) 60 bpm (11/10/22 8:44 AM) Body Mass Index [18.5-24.99 kg/m2] 23.67 kg/m2 (11/10/22 4:20 AM) Blood Pressure [90-138/55-84 mm Hg] 132/52mm Hg (11/10/22 11:47 AM) 131/55mm Hg (11/10/22 9:33 AM) 131/55mm Hg (11/10/22 9:32 AM) Respiratory Rate [16-30 br/min] 18 br/min (11/10/22 11:47 AM) 16 br/min (11/10/22 9:32 AM) 16 br/min (11/10/22 8:57 AM) Temperature [96.8-100.4 DegF] 97.1 DegF (11/10/22 11:47 AM) 98 DegF (11/10/22 8:44 AM) 97.7 DegF (11/10/22 4:20 AM) Liters per Minute 2 L/min (11/10/22 4:20 AM) 2 L/min (11/10/22 3:55 AM) 2 L/min (11/10/22 2:12 AM) Mode of Delivery (Oxygen) Room air (11/10/22 11:47 AM) Room air (11/10/22 8:44 AM) Nasal cannula (11/10/22 4:20 AM) Blood pressure sites Arm, left (11/10/22 11:47 AM) Arm, right (11/10/22 4:20 AM) Arm, left (11/10/22 3:55 AM) Temperature Route Oral (11/10/22 11:47 AM) Oral (11/10/22 8:44 AM) Oral (11/10/22 4:20 AM) Dry Weight 66.6 kg (11/10/22 4:20 AM) Social History Social History Type Response Tobacco Use: 4 or less cigar ettes(less than 1/4 pack)/day in last 30 days. Sex History and physical note * Jimmy LORA [facility]: PERFORM Event Display: History and Physical Hospital Authored Date: Patient: ??SARA JOSHI ? Age:??77 Years?Sex:??Female?:??1945?? Chief Complaint/Reason for Consultation From Assisted Living. pt c/o L flank pain and difficulty passing urine. +able to pass urine today. denies hematuria. 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 denies n/v. known kidney stone. History of Present Illness patient seen and evaluated on 11/10/2022 ?? 77-year-old female with a past medical history of nephrolithiasis and hydronephrosis, History of cervical spine surgery, hypothyroidism hypertension, CAD, hyperlipidemia, type 2 diabetes, gout aorticaneurysm, status post pacemaker??who presents to the hospital with flank pain. ??Patient reports that she presented About a week ago similar symptoms, CT abdomen that time showed hydroureter and leftand dilation of collecting system, stool retention,, managed conservatively and discharged to assisted living presents today again with flank pain.?? Patient reports that when the pain started she also feels lightheaded.?? Left flank pain radiating to groin, patient also reports to have dysuria and troubles urinating.?? Patient denies any fevers, chills, hematuria.?? Patient also chest pain, shortness of breath, cough, nausea, vomiting, abdomen pain otherwise. ?? In the emergency department, patient is hemodynamically stable, lab work within normal limits, CT abdomen was obtained showed no ischemia, unchanged 3.4 cm infrarenal abdominal aortic aneurysm. Large amount of stool in the rectosigmoid colon with evidence of wall thickening??in dital rectum ??which may be due to proctitis or neoplasm Moderate left hydronephrosis and mild left hydroureter without evidence of obstruction, likely secondary to large stool ball.?? On 11/03/2022 she was noted to have only hydroureter and mild stenosis left proximal collecting system.?? Patient received IV Toradol, MiraLAX, and enema and docusate and being admitted to the hospital for further management Review of Systems A full review of systems was completed and is otherwise negative except as mentioned in history of present illness. Objective Measurements?? Height: 160 cm (11/10/22) Weight: 60.6 kg (11/10/22) Dry Weight: 66.6 kg (11/10/22) Body Mass Index: 23.67 kg/m2 (11/10/22) ? Vital Signs?? Temperature: 97.7 DegF (11/10/22 04:20:00) Temperature Route: Oral (11/10/22 04:20:00) Pulse Rate: 59 bpm (11/10/22 04:20:00) Respiratory Rate: 18 br/min (11/10/22 04:20:00) Systolic Blood Pressure:??166 mm Hg??High (11/10/22 04:20:00) Diastolic Blood Pressure: 65 mm Hg (11/10/22 04:20:00) Blood pressure sites: Arm, right (11/10/22 04:20:00) Mean Arterial Pressure: 99 mm Hg (11/10/22 04:20:00) Pulse Pressure: 101 mm Hg (11/10/22 04:20:00) Oxygen Saturation: 99 % (11/10/22 04:20:00) Liters per Minute: 2 L/min (11/10/22 04:20:00) Mode of Delivery (Oxygen): Nasal cannula (11/10/22 04:20:00) Early Warning Score: 2 (11/10/22 04:27:39) ? Physical Exam Constitutional: Alert, in no acute distress. Head EENT: Extraocular muscle movement intact.??Moist mucous membranes.?? Neck: Supple. No JVD. Respiratory: Clear to auscultation. No wheezing or crackles. No use of accessory muscles. Cardiovascular: S1S2 regular. No murmurs, rubs or gallops. Gastrointestinal: Abdomen soft, non-tender, non-distended. Normal bowel sounds. Genitourinary:??left sided ??CVA tenderness. Extremities: No lower extremity pitting??edema. No cyanosis or clubbing. Neurologic: AAOx3, Speech normal. moves all extremities Skin: No rash. Psychiatric: Normal mood and affect Assessment/Plan Diagnoses Abdominal pain ??(R10.9) Abdominal pain ??(R10.9) Fecal impaction ??(K56.41) Fecal impaction ??(K56.41) Hydronephrosis of left kidney ??(N13.30) Renal calculi ??(N20.0) Stercoral colitis ??(K52.89) 1. ??CAD (coronary artery disease) ??(I25.10) 2. ??Cognitive impairment ??(R41.89) 3. ??Gout ??(M10.9) 4. ??HTN (hypertension) ??(I10) 5. ??Hypothyroidism ??(E03.9) 6. ??SSS (sick sinus syndrome) ??(I49.5) 7. ??Type 2 diabetes mellitus ??(E11.9) ?? Assessment:??77-year-old female with a past medical history of nephrolithiasis and hydronephrosis, History of cervical spine surgery, hypothyroidism hypertension, CAD, hyperlipidemia, type 2 diabetes, gout aortic aneurysm, status post pacemaker who presents to the hospital with flank pain ?? Renal calculi (N20.0):??: ?? Hydronephrosis of left kidney (N13.30):??Patient with left-sided flank pain, similar to??previous episodes, CT scan today showed??moderate left hydronephrosis and mild hydroureter without any evidence of??obstruction,??hydronephrosis likely in the setting of??stool burden in the rectosigmoid, On 11/03/2022 she was noted to have only hydroureter and mild stenosis left proximal collecting system.?? -patient has normal creatinine - UA negative for infection -Patient received Fleet enema -Bowel regimen with?? schedule senna??docusate, MiraLAX and enema as needed -consider urology consult if her symptoms do not improve, may obtain US once constipation is resolved to document resolution of hydronephrosis ? Stercoral colitis (K52.89):??Related to??stool ball,??there was also concern for??thickening which could be due to??proctitis versus neoplasm -Patient is afebrile, normal white count, monitor off antibiotics -GI consult for?? thickening and concern for neoplasm ?? CAD (coronary artery disease) (I25.10):??Continue aspirin, Plavix, statin ?? Cognitive impairment (R41.89):??Continue donepezil ?? Gout (M10.9):??Continue allopurinol ?? HTN (hypertension) (I10):??Continue??lisinopril, metoprolol ?? Hypothyroidism (E03.9):??Continue levothyroxine ?? SSS (sick sinus syndrome) (I49.5):??s/p pacemaker ?? Type 2 diabetes mellitus (E11.9):??On Tresiba??18 units at bedtime,??switch to Lantus??and sliding scale and Accu-Cheks and hypoglycemia protocol ?? VTE Prophylaxis:??Lovenox ?VTE Prophylaxis Assessment:??VTE Prophylaxis Ordered ?? Code Status:??Full code ?? Ongoing Medical Necessity:??Severe constipation ?? Discharge Planning:??Pending clinical??clinical course back to the assisted living facility ?? This note was created using [employer] speech recognition software, there may be unwanted word substitution, typographical errors or grammatical error, an attempt at proofreading has been made to minimize errors. please call if there are any questions regarding plan of care. ? Histories Allergies Allergies ?(Active and Proposed Allergies Only) rosuvastatin? (Severity: Unknown severity, Onset: Unknown) ?Comments: Patient taking rosuvastatin as outpatient (active prescription as of 09/2021). sulfa drugs? (Severity: Unknown severity, Onset: Unknown) ?Reactions: Nausea and vomiting simvastatin? (Severity: Unknown severity, Onset: Unknown) sertraline? (Severity: Unknown severity, Onset: Unknown) ?Reactions: Anxiety repaglinide? (Severity: Unknown severity, Onset: Unknown) ?Reactions: Nausea and vomiting pioglitazone? (Severity: Unknown severity, Onset: Unknown) penicillin? (Severity: Unknown severity, Onset: Unknown) ?Reactions: Rash oxyCODONE? (Severity: Unknown severity, Onset: Unknown) Nitrofurantoin Monohydrate/Macrocrystals? (Severity: Unknown severity, Onset: Unknown) metFORMIN? (Severity: Unknown severity, Onset: Unknown) ?Reactions: Acute diarrhea levoFLOXacin? (Severity: Unknown severity, Onset: Unknown) ?Comments: numb lips citalopram? (Severity: Unknown severity, Onset: Unknown) cephalexin? (Severity: Unknown severity, Onset: Unknown) ?Reactions: Nausea and vomiting ciprofloxacin? (Severity: Unknown severity, Onset: Unknown) Cefuroxime Axetil? (Severity: Unknown severity, Onset: Unknown) ?Reactions: Acute diarrhea cefTRIAXone? (Severity: Unknown severity, Onset: Unknown) ?Reactions: Acute diarrhea atorvastatin? (Severity: Unknown severity, Onset: Unknown) azithromycin? (Severity: Unknown severity, Onset: Unknown) ?Reactions: Nausea and vomiting status: disruptive effects ? Past Medical History/Problem List Active Problems??(7) CAD (coronary artery disease) Cognitive impairment Gout HTN (hypertension) Hypothyroidism SSS (sick sinus syndrome) Type 2 diabetes mellitus ? Past Surgical History h/o back surgeery? Social History Alcohol Details:??Use: Never. Substance Abuse Details:??Use: Never. Tobacco Details:??Use: 4 or less cigarettes(less than 1/4 pack)/day in last 30 days. Electronic Cigarette/Vaping Details:??Electronic Cigarette Use: Never. ? Family History No family history recorded. ? Medications Home Medications Acetaminophen (Tylenol 325 mg oral capsule)?2?capsule?650?Milligram?By Mouth?Every 4 hours?as needed?as needed for fever Allopurinol (allopurinol 100 mg oral tablet)?100?Milligram?1?tablet?By Mouth?Daily?(LAST FILLED [facility] 10/13/22) Aspirin (aspirin 81 mg oral delayed release tablet)?81?Milligram?1?tablet?By Mouth?Daily Cholecalciferol (Vitamin D3 5000 intl units oral tablet)?1?tab(s)?125?Microgram?By Mouth?Daily?(LAST FILLED [facility] 09/29/22) Clopidogrel (Plavix 75 mg oral tablet)?75?Milligram?1?tablet?By Mouth?Daily?(LAST FILLED [facility] 10/12/22) Cyanocobalamin (Vitamin B-12 1000 mcg oral tablet)?1,000?Microgram?1?tablet?By Mouth?Daily?(LAST FILLED [facility] 10/06/22) Donepezil (donepezil 5 mg oral tablet)?5?Milligram?1?tablet?By Mouth?Daily at bedtime?(LAST FILLED [facility] 10/12/22) Famotidine (famotidine 40 mg oral tablet)?1?tab(s)?40?Milligram?By Mouth?Daily?(LAST FILLED [facility] 10/04/22) Gabapentin (gabapentin 100 mg oral capsule)?100?Milligram?1?capsule?By Mouth?2 times a day?(LAST FILLED [facility] 10/02/22) insulin degludec (Tresiba FlexTouch 100 units/mL subcutaneous solution)?18?unit(s)?Subcutaneous Infusion?Daily at bedtime Levothyroxine (levothyroxine 0.1 mg oral tablet)?1?tab(s)?100?Microgram?By Mouth?Daily?(LAST FILL[facility] 10/03/22) Lisinopril (lisinopril 40 mg oral tablet)?1?tab(s)?40?Milligram?By Mouth?Daily?(LAST [facility]ILL[facility] 09/29/22) Loperamide (loperamide 2 mg oral capsule)?2?Milligram?1?capsule?By Mouth?Daily?as needed?do not excnot to exceed 8 capsules, or 16 mg, in 24 hours?Loose Stool Metoprolol (Metoprolol Succinate ER 25 mg oral tablet, extended release)?2?tab(s)?50?Milligram?By Mouth?Daily?(LAST FILLED [facility] 10/12/22) Morphine (morphine 15 mg oral tablet, immediate release)?0.5?tab(s)?7.5?Milligram?ByMouth?Every 4 hours?as needed?for pain?for 5?Days Polyethylene Glycol 3350 (polyethylene glycol 3350 oral powder for reconstitution)?17?gram?By Mouth?2 times a day?as needed?Constipation?dissolve in water or juice before taking Pyridoxine (Vitamin B6 100 mg oral tablet)?1?tab(s)?100?Milligram?By Mouth?Daily?(LAST FILL[facility] 10/25/22) Rosuvastatin (rosuvastatin 20 mg oral capsule)?1?capsule?20?Milligram?By Mouth?Daily Senna (Senna 8.6 mg oral tablet)?8.6?Milligram?1?tab(s)?By Mouth?Daily at bedtime?(LAST FILLED [facility] 10/25/22) ? Results Recent Labs BLOOD COUNT & DIFF WBC 9.2 k/mm3 ()?? 11/09/2022 19:29 RBC 4.81 m/mm3 ()?? 11/09/2022 19:29 Hgb 13.9 Gm/dL ()?? 11/09/2022 19:29 Hct 44.5 % ()?? 11/09/2022 19:29 MCV 92.5 femtoliters ()?? 11/09/2022 19:29 MCH 28.9 pg ()?? 11/09/2022 19:29 MCHC 31.2 g/dL (Low)?? 11/09/2022 19:29 Platelet Count 220 k/mm3 ()?? 11/09/2022 19:29 RDW-SD 47.8 femtoliters (High)?? 11/09/2022 19:29 MPV 9.7 femtoliters ()?? 11/09/2022 19:29 Nucleated RBC (Automated) 0.0 #/100 WBC'S ()?? 11/09/2022 19:29 Abs. NRBC 0.0 k/mm3 ()?? 11/09/2022 19:29 Abs. Neut 6.2 k/mm3 ()?? 11/09/2022 19:29 Abs. Lymph 2.3 k/mm3 ()?? 11/09/2022 19:29 Abs. [place] 0.5 k/mm3 ()?? 11/09/2022 19:29 Abs. Eo 0.1 k/mm3 ()?? 11/09/2022 19:29 Abs. Baso 0.1 k/mm3 ()?? 11/09/2022 19:29 Neut % 67.1 % ()?? 11/09/2022 19:29 Lymph % 24.4 % ()?? 11/09/2022 19:29 [place] % 5.7 % ()?? 11/09/2022 19:29 Eos % 1.5 % ()?? 11/09/2022 19:29 Baso % 1.0 % ()?? 11/09/2022 19:29 Imm Gran 0.3 % ()?? 11/09/2022 19:29 Abs. Imm Gran 0.0 k/mm3 ()?? 11/09/2022 19:29 ?? CARDIAC High Sensitivity Troponin (HSTnT) 14 ng/L (High)?? 11/10/2022 00:28 ?? CHEM GENERAL Sodium 144 mmol/L ()?? 11/09/2022 19:29 Potassium 4.6 mmol/L ()?? 11/09/2022 19:29 Chloride 106 mmol/L ()?? 11/09/2022 19:29 Bicarbonate Level 22 mmol/L ()?? 11/09/2022 19:29 Anion Gap 16 ()?? 11/09/2022 19:29 Glucose Level 135 mg/dL (High)?? 11/09/2022 19:29 BUN 13 mg/dL ()?? 11/09/2022 19:29 Creatinine-Blood 0.7 mg/dL ()?? 11/09/2022 19:29 Estimated GFR Creatinine 85 ML/MIN/1.73 M2 ()?? 11/09/2022 19:29 Calcium 8.9 mg/dL ()?? 11/09/2022 19:29 Protein, Total 6.3 Gm/dL ()?? 11/09/2022 19:29 Albumin 4.0 Gm/dL ()?? 11/09/2022 19:29 AG Ratio 1.7 ()?? 11/09/2022 19:29 Alkaline Phosphatase 97 units/L ()?? 11/09/2022 19:29 Lipase 31 units/L ()?? 11/09/2022 19:29 AST (SGOT) 32 units/L ()?? 11/09/2022 19:29 ALT (SGPT) 25 units/L ()?? 11/09/2022 19:29 Bilirubin, Total 0.2 mg/dL ()?? 11/09/2022 19:29 Lactate 0.9 mmol/L ()?? 11/09/2022 22:37 ?? HEME OTHER Hold Blue Top SPECIMEN DISCARDED AFTER 4 HOURS. ()?? 11/09/2022 19:29 ?? UA/URINALYSIS Appear/Color, Urine LIGHT YELLOW ()?? 11/09/2022 22:50 Specific [place], Urine 1.028 ()?? 11/09/2022 22:50 pH, Urine 6.5 ()?? 11/09/2022 22:50 Albumin, Urine NEGATIVE ()?? 11/09/2022 22:50 Glucose, Urine NEGATIVE ()?? 11/09/2022 22:50 Ketones, Urine NEGATIVE ()?? 11/09/2022 22:50 Bilirubin, Urine NEGATIVE ()?? 11/09/2022 22:50 Hemoglobin, Urine NEGATIVE ()?? 11/09/2022 22:50 Nitrite, Urine NEGATIVE ()?? 11/09/2022 22:50 Leukocyte, Urine NEGATIVE ()?? 11/09/2022 22:50 Urobilinogen NORMAL mg/dL ()?? 11/09/2022 22:50 WBC's, Urine 2 /HPF ()?? 11/09/2022 22:50 RBC's, Urine 1 /HPF ()?? 11/09/2022 22:50 Squamous Epith <1 /HPF ()?? 11/09/2022 22:50 Mucus SLIGHT /LPF ()?? 11/09/2022 22:50 Hold Urine Culture Testing available 48 hours from time of collection. ()?? 11/09/2022 22:50 ?? URINE OTHER Est Creatinine Clearance 53.89 mL/min ()?? 11/10/2022 04:27 ?? VIROLOGY COVID-19 by RT-PCR NEGATIVE ()?? 11/09/2022 21:27 ? Hospital Progress note * Lucero Guzman LPN: SIGN, MODIFY, PERFORM, SIGN, VERIFY Event Display: Progress Note Hospital Authored Date: Patient: SARA JOSHI Age: 77 years Sex: Female : 1945 Associated Diagnoses: None Author: Lucero Guzman LPN Alert and oriented x3. Complained of left flank pain medicated with PRN Morphine. Lungs clear. Denies cough, SOB or chest pain. Hypoactive bowel sounds. Denies N/V/D. Tolerated PO diet. Vital stable,afebrile. Bed in lowest position, wheels locked. Hourly rounding maintained. Discharge Information Case Management Discharge Plan : Case Management Discharge Plan Data 11/04/2022 13:38 EDT Discharge Level of Care at Discharge half-way facility * Lucero Guzman LPN: PERFORM Event Display: Progress Note Hospital Authored Date: Discharge order placed. Patient discharging via chair van back to assisted living facility. Report called to S3. Patient left unit via with all belongings. * Radha Crawford: PERFORM, SIGN, VERIFY Event Display: Progress Note Hospital Authored Date: Patient: SARA JOSHI Age: 77 years Sex: Female : 1945 Associated Diagnoses: None Author: Radha Crawford Findings Problem Related to Alteration in Gastrointestinal : Alteration in Gastrointestinal Func/new 11/10/2022 4:00 EDT Alteration in GI status Related to Constipation Goals & Outcomes, Gastrointestinal Establish a regular pattern of elimination for pt, Pt will achieve normal/improved fluid balance, Pt will have a bowel movement prior to discharge, Pt will resume/maintain adequate hemodynamic status Interventions, Gastrointestinal Assess/monitor abdomen for distention, tenderness, Assess if pt tolerating diet, Establish toileting schedule for patient, Monitor bowel status for signs of constipation, Monitor & document reponse to anti-constipation meds Goals/Interventions, Gastrointestinal Yes Gastrointestinal, Problem Start 11/10/2022 4:00 Reviewed plan with, Gastrointestinal Patient Patient Progression, Gastrointestinal Plan Initiation . Alteration in Safety : Alteration in Safety/new 11/10/2022 4:00 EDT Alteration in Safety Related to Other: Risk for fall Goals & Outcomes, Safety Psychosocial support will be provided to Pt/S.O. as needed, Pt/caregiver will state understanding of plan/goals of care, Pt will remain safe & injury free, Pt/caregiver will be offered appropriate resources & support Interventions, Safety Provide info on community resources for education, support, Provide teaching as needed, Discuss unsafe practices & situations with pt/S.O., Instruct pt on maintaining a safeenvironment, [place] pt frequently, Redirection; reorientation Goals/Interventions, Safety Yes Safety, Problem Start 11/10/2022 4:00 Reviewed plan with, Safety Patient Patient Progression, Safety Plan Initiation . Nursing Data Gastrointestinal Data. : Gastrointestinal Data. 11/10/2022 4:33 EDT Gastrointestinal Symptoms Constipation Abdomen Soft, Non-tender Bowel Sounds LUQ Present Bowel Sounds RUQ Present Bowel Sounds LLQ Present Bowel Sounds RLQ Present Last Bowel Movement 11/10/2022 GI WNL except . Evaluation Patient came to the Unit on a stretcher awake alert and orient with no sign of respiratory distressor discomfort. Patient is presented to the Unit and staff. Patient safely walked to bed with assist. Patient is on 2L of O2 via NC. Patient is A&Ox4, denies any SOB, chest pain or N/V. Patient complains of abdominal pain (Left side) Instruction acid correction hand garay was given and it is within reach. Patient is able to make needs known. Bed alarm is on for safety. Bed in lowest locked position. Hourly round made during shift to ensure safety. See CIS for a full assessment.. Discharge Information Case Management Discharge Plan : Case Management Discharge Plan Data 11/04/2022 13:38 EDT Discharge Level of Care at Discharge half-way facility Note * Carina Rivas RN: PERFORM Event Display: Discharge/Transfer Note Hospital Authored Date: [id number] Nursing Discharge Note Entered On: 11/10/2022 12:30 EDT Performed On: 11/10/2022 12:29 EDT by Carina Rivas RN Nursing Discharge Note 2 Discharge Time : 11/10/2022 12:29 EDT Discharge Level of Care at Discharge : Homehealth/VNA Discharge VNA/Hospice/Home Care(v001) : Savita Moore [phone] Patient Left Unit Via : Chair Van Patient Accompanied Off Unit with : Ambulance/Chair Van Personnel Handover Given to Transport Personnel : Yes DC Instructions Provided & Signed by Pt : Yes Patient Understands D/C Instructions : Yes Patient Instructions Discharge Signed : Yes Discharge Comments : IV dc'd with the tip i ntact Did Pt have Specialty Bed or Wound Vac : No Carina Rivas RN - 11/10/2022 12:29 EDT * [facility]: PERFORM, MODIFY Event Display: Discharge/Transfer Note Hospital Authored Date: [id number] Patient: ??SARA JOSHI ? Age:??77 Years?Sex:??Female?:??1945?? 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) HTN (hypertension) Hypothyroidism _ Discharge Medications Acetaminophen (Tylenol 325 mg oral capsule)?2?capsule?650?Milligram?By Mouth?Every 4 hours?as needed?as needed for fever Allopurinol (allopurinol 100 mg oral tablet)?100?Milligram?1?tablet?By Mouth?Daily?(LAST FILL[facility] 10/13/22) Aspirin (aspirin 81 mg oral delayed release tablet)?81?Milligram?1?tablet?By Mouth?Daily Cholecalciferol (Vitamin D3 5000 intl units oral tablet)?1?tab(s)?125?Microgram?By Mouth?Daily?(LAST [facility]ILL[facility] 09/29/22) Clopidogrel (Plavix 75 mg oral tablet)?75?Milligram?1?tablet?By Mouth?Daily?(LAST [facility] 10/12/22) Cyanocobalamin (Vitamin B-12 1000 mcg oral tablet)?1,000?Microgram?1?tablet?By Mouth?Daily?(LAST [facility] 10/06/22) Donepezil (donepezil 5 mg oral tablet)?5?Milligram?1?tablet?By Mouth?Daily at bedtime?(LAST [facility]ILL[facility] 10/12/22) Famotidine (famotidine 40 mg oral tablet)?1?tab(s)?40?Milligram?By Mouth?Daily?(LAST [facility] 10/04/22) Gabapentin (gabapentin 100 mg oral capsule)?100?Milligram?1?capsule?By Mouth?2 times a day?(LAST [facility] 10/02/22) insulin degludec (Tresiba FlexTouch 100 units/mL subcutaneous solution)?18?unit(s)?Subcutaneous Infusion?Daily at bedtime Levothyroxine (levothyroxine 0.1 mg oral tablet)?1?tab(s)?100?Microgram?By Mouth?Daily?([facility] 10/03/22) Lisinopril (lisinopril 40 mg oral tablet)?1?tab(s)?40?Milligram?By Mouth?Daily?(LAST [facility] 09/29/22) Loperamide (loperamide 2 mg oral capsule)?2?Milligram?1?capsule?By Mouth?Daily?as needed?do not excnot to exceed 8 capsules, or 16 mg, in 24 hours?Loose Stool Metoprolol (Metoprolol Succinate ER 25 mg oral tablet, extended release)?2?tab(s)?50?Milligram?By Mouth?Daily?(LAST [facility] 10/12/22) Morphine (morphine 15 mg oral tablet, immediate release)?0.5?tab(s)?7.5?Milligram?ByMouth?Every 4 hours?as needed?for pain?for 5?Days Polyethylene Glycol 3350 (polyethylene glycol 3350 oral powder for reconstitution)?17?gram?By Mouth?2 times a day?as needed?Constipation?dissolve in water or juice before taking Pyridoxine (Vitamin B6 100 mg oral tablet)?1?tab(s)?100?Milligram?By Mouth?Daily?(LAST [facility] 10/25/22) Rosuvastatin (rosuvastatin 20 mg oral capsule)?1?capsule?20?Milligram?By Mouth?Daily Senna (Senna 8.6 mg oral tablet)?8.6?Milligram?1?tab(s)?By Mouth?Daily at bedtime?(LAST [facility] 10/25/22) Medications Started None Medications Discontinued None Doses Changed [facility] Hospital Course 77-year-old female with a past medical history of nephrolithiasis and hydronephrosis, History of cervical spine surgery, hypothyroidism hypertension, CAD, hyperlipidemia, type 2 diabetes, gout aorticaneurysm, status post pacemaker who presents to the hospital with flank pain so was admitted for further evaluation and management ?? Acute abdominal Pain and flank pain due to stercoral colitis: --??Underwent Ct abdomen and pelvis??which showed Large amount of stool in the rectosigmoid colon with circumferential wall thickening in underdistended distal rectal lumen, which may indicate proctitis or neoplasm;??It also showed Moderate left hydronephrosis and mild hydroureter without evidence of an obstructing stone is likely secondary to the large stool ball in the rectosigmoid. -- underwent fleets enema and she had good BM; after which she felt much better no more abdominal pain and she was able to finish her breakfast and tolerate food??very well -- Encouraged to keep up with laxative intak eand aim for atleast 1 BM in ed ?? Hydronephrosis of left kidney (N13.30):?? -- Patient with left-sided flank pain, similar to??previous episodes, CT scan today showed??moderate left hydronephrosis and mild hydroureter without any evidence of??obstruction,??hydronephrosis likely in the setting of??stool burden in the rectosigmoid, On 11/03/2022 she was noted to have only hydroureter and mild stenosis left proximal collecting system.?? -- patient has normal creatinine;??UA negative for infection -- as patient feeling better, repeat US was not ordered as her renal; function is stabel and we resolved acute issue thats causing her mild hydropnephrosis ?? Chronic Stable Medical Problems, continue to monitor with no change in home meds: CAD (coronary artery disease) (I25.10):??Continue aspirin, Plavix, statin Cognitive impairment (R41.89):??Continue donepezil Gout (M10.9):??Continue allopurinol HTN (hypertension) (I10):??Continue??lisinopril, metoprolol Hypothyroidism (E03.9):??Continue levothyroxine SSS (sick sinus syndrome) (I49.5):??s/p pacemaker Type 2 diabetes mellitus (E11.9):??On Tresiba??18 units at bedtime,??switch to Lantus??and sliding scale and Accu-Cheks and hypoglycemia protocol ?? Exam at discharge: HEENT : Moist mucous membranes. Respiratory : Clear to auscultation bilaterally? Cardiac : no M/G/R.? Abdomen/GI : soft, non-tender.? Extremities : no clubbing, no cyanosis.? Neurologic : Alert & oriented x 3 . ? Pending Results No Pending Results Follow-Up Appointments Added Follow Up ?Time Frame ?Comments Ashley Morales MD?2 to 3 weeks Post Discharge Care Discharge ?11/10/22 9:39:00 EDT Discharge Prescriptions ?ePrescribed, ??11/10/22 9:39:00 EDT ? *Denotes mandatory otoole ?? *Select the indications for the discipline/s that are being arranged for this patient. Nursing (select all that apply): [_] None [_] Medication management (reconciliation, teaching)?? [X] Chronic disease management?? [_] Wound care and treatment?? [X] Home safety evaluation [_] Administer SQ/IM/IV medications?? [_] Cath care?? [_] Drain care?? [_] Trach or GT care?? Other _ Occupation Therapy (select all that apply): [_] None [_] ADL Management [_] Fall prevention training [_] Energy conservation [_] Cognitive training Other _ Physical Therapy (select all that apply): [_] None [X] Functional mobility training [X] Home exercise program to strengthen [_] Increase ROM?? [_] Falls prevention training [_] Home maintenance program for chronic disease Other _ Speech Therapy (select all that apply): [_] None [_] Swallow evaluation and training [_] Speech and language training [_] Cognitive training to process, organize, and/or recall information Other _ ? *Homebound due to (select all that apply): [_] Inability to leave home without assistance/supervision [X] Inability to ambulate without assistance [_] Pain [X] Decreased strength and endurance [_] Unsteady gait [_] Severe SOB and fatigue [_] Impaired transfers [_] Inability to negotiate stairs [_] Limited weight bearing [_] Mental status change? *Physician Signature: Yono Salinas MD_ ?? *By signing this, I certify that I have personally evaluated the patient and agree with the findings and recommendations as documented above. 35??minutes spent on discharge * Carina Rivas RN: PERFORM Event Display: Patient Education/Instruction Authored Date: [id number] Inpatient Adult Discharge Instructions [place] [id number] Name: SARA JOSHI : 1945 Visit: 11/09/2022 17:38:00 Current Date: 11/10/2022 12:16 Account: [id number] Inpatient Adult Discharge Instructions We would like to thank you for allowing us to assist you with your healthcare needs. The following includes patient education materials and information regarding your injury/illness. Our entire staffstrives to provide an excellent experience for our patients and their families. PLEASE ENSURE YOU FOLLOW-UP PER THE INSTRUCTIONS BELOW! ?? YOUR OPINION IS IMPORTANT TO US! Please complete the survey you may receive by mail or email. Your feedback will be used to make improvements to the healthcare experiences of our patients and their families. Surveys are administered by [employer] ?? If further treatment with your primary care physician or another doctor is recommended, it is important for you to keep the appointment. Call your primary care physician or return to the Emergency Department immediately if your condition worsens, fails to improve, or new symptoms develop. If you need to find a doctor, you can call [facility] EDMdesigner for a referral at [phone] or toll free at [phone] ([phone]) or log in to [email or web address] ?? You can view and manage your care through the patient portal or by using a health care rosalio of your choosing. [employer] is a website that allows you to securely view your medical information including your hospital discharge summary, office visit summaries, medications and follow-up visits. You can also request appointments, renew medications, and request access to your medical information using a health care rosalio of your choosing, or just ask a question. You can enroll at [email or web address] or register during your next office visit. You have been discharged from [facility], Patient Care Unit: S3. If you have any questions regarding these instructions after you leave, please call us and we will be happy to assist you. [facility] Your Care Team Attending Physician Yoon Salinas MD Discharging Providers Yoon Salinas MD Reason for Admission From Assisted Living. pt c/o L flank pain and difficulty passing urine. +able to pass urine today. denies hematuria. 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 denies n/v. known kidney stone. Your Diagnosis Fecal impaction Abdominal pain Fecal impaction Abdominal pain CAD (coronary artery disease) Cognitive impairment Gout HTN (hypertension) Hypothyroidism SSS (sick sinus syndrome) Type 2 diabetes mellitus Hydronephrosis of left kidney Renal calculi Stercoral colitis Tests Performed Below is a partial list of the tests performed during your hospitalization. You may have had other tests and procedures not included in this list. Please discuss all test results with your provider. CBC w/ Differential Comprehensive Metabolic Panel COVID-19 (Novel Coronavirus), Rapid PCR GLUCOSE POC High??Sensitivity??Troponin T HOLD BLUE TUBE Lactate Level Lipase Troponin T, High Sensitivity Urinalysis w/hold for Urine Culture CT Angio Abdomen and Pelvis Primary Care Provider Ashley Morales MD Advance Directive Health Care Proxy on File Yes - Health Care Proxy Yes - [facility] Discharge Vitals Temperature: 97.1 DegF Height: 160 cm Pulse Rate: 59 bpm Weight: 60.6 kg Respiratory Rate: 18 br/min Body Mass Index: 23.67 kg/m2 Systolic Blood Pressure: 132 mm Hg Body surface area: 1.64 Diastolic Blood Pressure:??52 mm Hg??Low ?? Oxygen Saturation: 98 % ?? Studies Pending All tests and labs ordered during this hospital stay have been completed unless listed below. Please discuss all pending results with your provider listed above in these instructions. ?? No incomplete studies found What to do next Instructions From Your Doctor Discharge Orders You Need to Schedule the Following Appointments Follow Up with??Ashley Morales MD When:??Within 2 to 3 weeks, only if needed Where: [facility] [place] [address]- Discharge Medications SARA JOSHI :1945 Visit Date:11/09/2022 Medications: Please continue your medications until treatment is completed or stopped by your provider. Medications not listed below should be discontinued. Discuss any questions related to medications with your provider. What How Much When Instructions Next Dose Unchanged Acetaminophen (Tylenol 325 mg oral capsule) 2 capsule Oral Every 4 hours as needed for as needed for fever as needed Unchanged Allopurinol (allopurinol 100 mg oral tablet) 1 tab(s) Oral Daily (LAST [facility] ) ?? 6/10 AM Unchanged Aspirin (aspirin 81 mg oral delayed release tablet) 1 tab(s) Oral Daily 610 AM Unchanged Cholecalciferol (Vitamin D3 5000 intl units oral tablet) 1 tab(s) Oral Daily ([facility] ) ?? 6/10 AM Unchanged Clopidogrel (Plavix 75 mg oral tablet) 1 tab(s) Oral Daily ([facility] ) ?? 11/11 AM Unchanged Cyanocobalamin (Vitamin B-12 1000 mcg oral tablet) 1 tab(s) Oral Daily ([facility] ) ?? 11/11 AM Unchanged Donepezil (donepezil 5 mg oral tablet) 1 tab(s) Oral Daily at Bedtime ([facility] ) ?? 11/10 Bedtime Unchanged Famotidine (famotidine 40 mg oral tablet) 1 tab(s) Oral Daily ([facility] ) ?? 11/11 AM Unchanged Gabapentin (gabapentin 100 mg oral capsule) 1 capsule Oral Twice a day (LAST [facility] ) ?? 11/10 PM Unchanged insulin degludec (Tresiba FlexTouch 100 units/ mL subcutaneous solution) 18 unit(s) Subcutaneous Infusion Daily at Bedtime 11/10 Betime Unchanged Levothyroxine (levothyroxine 0.1 mg oral tablet) 1 tab(s) Oral Daily (LAST FILLED [facility] ) ?? 11/11 AM Unchanged Lisinopril (lisinopril 40 mg oral tablet) 1 tab(s) Oral Daily (LAST FILLED [facility] ) ?? 11/11 AM Unchanged Loperamide (loperamide 2 mg oral capsule) 1 capsule Oral Daily as needed for Loose Stool do not exc not to exceed 8 capsules, or 16 mg, in 24 hours ?? as needed Unchanged Metoprolol (Metoprolol Succinate ER 25 mg oral tablet, extended release) 2 tab(s) Oral Daily (LAST FILLED [facility] ) ?? 11/11 AM Unchanged Miscellaneous Rx (BD PEN NEEDL MIS [id number] [place]) Unchanged Morphine (morphine 15 mg oral tablet, immediate release) 0.5 tab(s) Oral Every 4 hours as needed for for pain Duration: 5 Days as needed Unchanged Polyethylene Glycol 3350 (polyethylene glycol 3350 oral powder for reconstitution) 17 gram Oral Twice a day as needed for Constipation dissolve in water or juice before taking ?? as needed Unchanged Pyridoxine (Vitamin B6 100 mg oral tablet) 1 tab(s) Oral Daily (LAST FILLED [facility] ) ?? 610 AM Unchanged Rosuvastatin (rosuvastatin 20 mg oral capsule) 1 capsule Oral Daily 610 AM Unchanged Senna (Senna 8.6 mg oral tablet) 1 tab(s) Oral Daily at Bedtime (LAST FILLED [facility] ) ?? Bedtime ?? What How Much When Comments Stop Taking Amlodipine (amLODIPine 5 mg oral tablet) 1 tab(s) Oral Daily (LAST FILLED [facility] ) ?? Stop Taking Metronidazole (metroNIDAZOLE 500 mg oral tablet) 1 tab(s) Oral Every 8 hours Duration: 7 Days Test Results Below is a partial list of the most recent Laboratory test results done prior to this discharge. You may have had other tests and procedures not included in this list. Please discuss all test resultswith your provider. Est Creatinine Clearance - 53.89 mL/min (11/10/2022) CBC w/ Differential (11/09/2022) ???WBC - 9.2 k/mm3???RBC - 4.81 m/mm3???Hgb - 13.9 Gm/dL???Hct - 44.5 %???MCV - 92.5 femtoliters???MCH - 28.9 pg???MCHC - 31.2 g/dL???Platelet Count - 220 k/mm3???RDW-SD - 47.8 femtoliters???MPV - 9.7 femtoliters???Nucleated RBC (Automated) - 0.0 #/100 WBC'S???Abs. NRBC - 0.0 k/mm3???Abs. Neut - 6.2 k/mm3???Abs. Lymph - 2.3 k/mm3???Abs. [place] - 0.5 k/mm3???Abs. Eo - 0.1 k/mm3???Abs. Baso - 0.1 k/mm3???Neut % - 67.1 %???Lymph % - 24.4 %???[place] % - 5.7 %???Eos % - 1.5 %???Baso % - 1.0 %???Imm Gran- 0.3 %???Abs. Imm Gran - 0.0 k/mm3 Comprehensive Metabolic Panel (11/09/2022) ???Sodium - 144 mmol/L???Potassium - 4.6 mmol/L???Chloride - 106 mmol/L???Bicarbonate Level - 22 mmol/L???Anion Gap - 16???Glucose Level - 135 mg/dL???BUN - 13 mg/dL???Creatinine-Blood - 0.7 mg/dL???Estimated GFR Creatinine - 85 ML/MIN/1.73 M2???Calcium - 8.9 mg/dL???Protein, Total - 6.3 Gm/dL???Alb umin - 4.0 Gm/dL???AG Ratio - 1.7???Alkaline Phosphatase - 97 units/L???AST (SGOT) - 32 units/L???ALT (SGPT) - 25 units/L???Bilirubin, Total - 0.2 mg/dL COVID-19 (Novel Coronavirus), Rapid PCR (11/09/2022) ???COVID-19 by RT-PCR - NEGATIVE GLUCOSE POC (11/10/2022) ???Glucose, POC - 178 mg/dL High??Sensitivity??Troponin T (11/09/2022) ???High Sensitivity Troponin (HSTnT) - 14 ng/L HOLD BLUE TUBE (11/09/2022) ???Hold Blue Top - SPECIMEN DISCARDED AFTER 4 HOURS. Lactate Level (11/09/2022) ???Lactate - 0.9 mmol/L Lipase (11/09/2022) ???Lipase - 31 units/L Troponin T, High Sensitivity (11/10/2022) ???High Sensitivity Troponin (HSTnT) - 14 ng/L Urinalysis w/hold for Urine Culture (11/09/2022) ???Appear/Color, Urine - LIGHT YELLOW???Specific [place], Urine - 1.028???pH, Urine - 6.5???Albumin, Urine - NEGATIVE???Glucose, Urine - NEGATIVE???Ketones, Urine - NEGATIVE???Bilirubin, Urine - NEGATIVE???Hemoglobin, Urine - NEGATIVE???Nitrite, Urine - NEGATIVE???Leukocyte, Urine - NEGATIVE???Urobi linogen - NORMAL? ?WBC's, Urine - 2 /HPF? ?RBC's, Urine - 1 /HPF? ?Squamous Epith - <1 /HPF? ?Mucus - SLIGHT???Hold Urine Culture - Testing available 48 hours from time of collection. Allergies (NKA means No Known Allergies) Cefuroxime Axetil??(Acute diarrhea) Nitrofurantoin Monohydrate/Macrocrystals atorvastatin azithromycin??(Nausea and vomiting status: disruptive effects) cefTRIAXone??(Acute diarrhea) cephalexin??(Nausea and vomiting) ciprofloxacin citalopram levoFLOXacin metFORMIN??(Acute diarrhea) oxyCODONE penicillin??(Rash) pioglitazone repaglinide??(Nausea and vomiting) rosuvastatin sertraline??(Anxiety) simvastatin sulfa drugs??(Nausea and vomiting) Problems Active Problems??(7) CAD (coronary artery disease)?? Cognitive impairment?? Gout?? HTN (hypertension)?? Hypothyroidism?? SSS (sick sinus syndrome)?? Type 2 diabetes mellitus?? Education Materials Below is the list of Educational Leaflet Providered with your Discharge Instructions. Valuables and Belongings I fully understand and agree that [facility] accepts no responsibility for all my personal property including clothing, toilet articles, radios, jewelry, dentures, hearing aids, rings, money, or any other property that is in my possession or is brought to me after admission. I understand certain valuables may be placed in a hospital safe for a short period of time. I understand that the hospital is not liable for loss or damage due to accident, fire, or other natural occurrence while said property is in the safe. I accept full responsibility for any personal property that I keep with me, and will not hold the hospital responsible in case of loss or disappearance. I acknowledge that i have been encouraged to send valuables and belongings home. ?? Review of Valuable and Belonging List: With patient, With witness Date for Pt to Sign Valuables/Belongings: 11/10/22 11:47:00 ?? Other Discharge Information ? Case Management Discharge Plan?? Discharge Plan?? Discharge Agency Information?? Discharge Level of Care at Discharge: Homehealth/VNA Name of Agency #1: [facility] Discharge Transportation Arranged: [facility] [id number] [phone] Agency [facility] #1: Intake Mode of Transportation Arranged: Chair Van Service Categories #1: Snf Discharge Arranged Transport Date/Time: 11/10/22 12:30:00 Service Comments #1: [facility] [phone] will provide your care upon discharge, if any issuesor concerns please contact the agency directly. Discharge VNA/Hospice/Home Care: [facility] [phone] ? Pulmonary Rehab Status?? Pulmonary Rehab Discharge Status?? Respiratory Rate: 18 br/min ? Common Emergency Awareness Tips IS IT A STROKE? Act FAST and Check for these signs: FACE Does the face look uneven? ARM Does one arm drift down? SPEECH Does their speech sound strange? TIME Call at any sign of stroke ?? Heart Attack Signs Chest discomfort: Most heart attacks involve discomfort in the center of the chest and lasts more than a few minutes, or goes away and comes back. It can feel like uncomfortable pressure, squeezing, fullness or pain. Discomfort in upper body: Symptoms can include pain or discomfort in one or both arms, back, neck, jaw or stomach. Shortness of breath: With or without discomfort. Other signs: Breaking out in a cold sweat, nausea, or lightheaded. Remember, MINUTES DO MATTER. If you experience any of these heart attack warning signs, call to get immediate medical attention! ?? Smoking can increase your chances of developing chronic health problems and can cause harmful effects to other family members in your house. If you smoke, you are strongly encouraged to quit. Please call [facility] [employer] [facility] at [phone] or [phone] ([phone]) or log in to [email or web address] for referrals to smoking cessation programs. ?? 200 Suicide & Crisis Lifeline is available 25/12 if you or someone you know needs to find a reason to keep living. By calling 253 you'll be connected to a skilled, trained counselor at a crisis center in your area. INPATIENT DISCHARGE INSTRUCTIONS SIGNATURE PAGE SARA JOSHI Location:[facility] Registration Date and Time:11/09/2022 17:38 EDT Primary Care Physician: Ashley Morales MD, Attending Physician: Yoon Salinas MD, Jaron JOSHI SARA DEL ANGEL, have received the above patient education materials/instructions and have verbalized understanding. If ambulance or transport services are being used I further acknowledge being given a choice of service. ?? If you need to contact me, please call me at this number: . Patient/Rail Track Layer Name: Patient/Rail Track Layer Signature: Relationship to Patient: Witness Name/Signature: Date: CTA Abdominal vessels and Pelvis vessels W contrast IV * [facility] , CIS S: TRANSCRIBE William LORA, Devrim: VERIFY Candido LORA, Brian T: SIGN Event Display: Result: Authored Date: CT Angio Abdomen and Pelvis Hx of Present Illness: flank pain. Reason: Mesenteric ischemia, acute. Clinical Question(s): Generalized Abdominal Pain, Mesenteric Ischemia. COMPARISON: None. TECHNIQUE: Axial images were obtained from diaphragm through the pelvis during the intravenous administration of iodinated contrast. 100 cc of Omnipaque 300 was administered intravenously. Delayed (venous) images were also acquired for evaluation of the portal veins. Sagittal and coronal maximum intensity projection (MIP) images were reconstructed and rendered in both arterial and venous phases. Weight-based protocol using automatic tube modulation was used to optimize exposure parameters. RADIATION DOSE PARAMETERS: CTDIvol Body: 16.00 mGy, DLP Body: 1262 mGy*cm. VASCULAR FINDINGS: Abdominal aorta: Severe abdominal aortic vascular calcification. Unchanged peripherally calcified infrarenal abdominal aortic aneurysm measuring 3.4 x 3.0 x 6.2 cm (AP by TR by CC) (405:44, 406:52). Celiac axis: Mild calcification at the origin with mild stenosis. Otherwise, the vessel appears patent distally. Superior mesenteric artery: Moderate calcification at the origin. Severe stenosis in the midportionof the vessel with distal patent lumen (404:261). Right renal artery: Mild calcification at the origin, otherwise patent. Left renal artery: Mild calcification, otherwise patent. Inferior mesenteric artery: Moderate stenosis at the midportion of the vessel (404:451), but patentdistally. Right common iliac artery: Severe vascular calcification. Moderate stenosis (approximately 50%) proximally (404:520) with distal patency. Right internal iliac artery: Moderate vascular calcification, otherwise patent. Right external iliac artery: Severe vascular calcification. Severe stenosis in the midportion of the vessel (404:634). Patent distally. Right common femoral artery: Patent. Visualized right superficial and deep femoral arteries: Patent. Left common iliac artery: Severe vascular calcification. Minimal stenosis (0- 20%) (404:496). Distally Left internal iliac artery: Severe vascular calcification, but patent. Left external iliac artery: Severe vascular calcification with moderate (50-75%) stenosis distally (404:750). Left common femoral artery: Patent. Visualized left superficial and deep femoral arteries: Patent. IVC and hepatic veins: Patent. Portal vein: Patent. Splenic vein: Patent. Superior mesenteric vein: Patent. Inferior mesenteric vein: Patent. Iliac and femoral veins: Patent. NONVASCULAR FINDINGS: Booking Officer View Findings, Lines and Tubes: Defibrillator wires are partially imaged. Visualized Chest: Mild bibasilar atelectasis. Mild, bilateral bronchiectasis. No pleural effusion. Diaphragm: Normal. Liver: Multiple subcentimeter circumscribed low-density lesions likely represent cysts (in the absence of known malignancy). Gallbladder: No CT evidence of gallbladder pathology. Bile ducts: No biliary ductal dilation. Spleen: Normal. Pancreas: Normal. Adrenal glands: Unchanged 1.4 cm left adrenal gland nodule, likely a benign adenoma. No dedicated imaging follow-up required. The right adrenal gland is mildly thickened without discrete measurable lesions. Kidneys and ureters: Right: 0.2 cm nonobstructing calculus in the right upper pole region (501:39, 503:74). No ureteral calculi. No hydronephrosis. No suspicious masses. Simple appearing renal cysts and hypodensities that are too small to characterize are noted, requiring no dedicated imaging follow-up. Left: 0.3 cm nonobstructing calculus in the left interpolar region (501:57, 503:62). A cluster of 0.3 cm partially obstructing renal calculi in the left interpolar region (501:53, 54),503:71). Moderate hydronephrosis. Mild left hydroureter to the left lobe the UVJ without evidence of an obstructing stone. Simple appearing renal cysts and hypodensities that are too small to characterize are noted, requiring no dedicated follow up. Bladder: Normal. Reproductive organs: Status post hysterectomy. Stomach, small bowel, and large bowel: Markedly distended rectosigmoid colon with formed stool in the lumen in caliber measures approximately 9.2 cm. Underdistended distal rectal wall is circumferentially thickened. Moderate diverticulosis of the descending colon without evidence of acute diverticulitis No evidence of bowel wall perforation. No evidence of small bowel obstruction. Mild physiologic distention of the stomach, otherwise normal. Appendix: Not seen, but no evidence of appendicitis. Peritoneum and retroperitoneum: No ascites or pneumoperitoneum. No omental or mesenteric lesions. Lymph nodes: No pathologically enlarged lymph nodes. Abdominal and pelvic wall: Unremarkable. Bones: No acute abnormality. Diffuse bone demineralization. Moderate, multilevel degenerative changes of the visualized spine. Degenerative changes of the hips. Bone island in the right femoral head. IMPRESSION: No evidence of mesenteric ischemia. Unchanged 3.4 cm infrarenal abdominal aortic aneurysm. Multifocal stenosis of the abdominal vesselsas described above. Recommend follow-up ultrasound or CTA in 3 years per simplified ACR and SVS guidelines. Reference: Cali EL et al. J Vasc Surg 2018; 67:2-77. Society for Vascular Surgery 2018 practice guidelines on the care of patients with an abdominal aortic aneurysm. Large amount of stool in the rectosigmoid colon with circumferential wall thickening in underdistended distal rectal lumen, which may indicate proctitis or neoplasm. Moderate left hydronephrosis and mild hydroureter without evidence of an obstructing stone is likely secondary to the large stool ball in the rectosigmoid. An actionable message ([place]) has been communicated via the [employer] system on 11/09/2022 11:38 PM, Message ID [id number]. I have personally reviewed the images and I agree with this report. WSN: [id number] Ordering Physician: Breanne Teixeira Dictated By: Brian Rey MD Dictated Date/Time: 11/09/22 11:38 p Reviewed By: Savana Thomas MD Signed By: Savana Thomas MD Signed Date/Time: 11/09/22 11:43 pm Transcribed By: FERMIN Transcribed Date/Time: 11/09/22 11:24 pm Patient Care team information Care Team Personnel Name: Chase Otoole RN Position: [facility] RN Member Role: Primary Care Nurse Name: Radha Crawford Position: [facility] RN Member Role: Primary Care Nurse Name: Ashley Morales MD Position: [facility] Physician - Primary Care Member Role: PCP Address: Address: [address] Name: Svitlana Mcgee RN Position: [facility] RN Member Role: Primary Care Nurse Name: Soraida Handy RN Position: [facility] RN Member Role: Primary Care Nurse Name: Thom Kuo RN Position: S RN Member Role: Primary Care Nurse Name: Ileana Khan RN Position: [facility] RN Member Role: Primary Care Nurse Name: Becky Quezada RN Position: [facility] RN Member Role: Primary Care Nurse Name: Sara Dorantes RN Position: [facility] RN Member Role: Primary Care Nurse Name: Chelita Bailey LPN Position: [facility] RN Member Role: Primary Care Nurse Name: Frank LANDAVERDE Attending Position: [facility] ED Medicine MD Name: Martine Pisano Position: [facility] ED TA [facility] Member Role: Patient Care Provider Name: Collette Zuleta RN Position: [facility] ED RN W/OE and Tasks Member Role: Patient Care Provider
--- OUTSIDE RECORDS SUMMARY | 2023-07-20 23:04 | XMS_ITS | Continuity of Care Document ---
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 Name Role Phone Ashley Morales MD Primary Care Physician Encounter [facility] [id number] Date(s): 10/29/22 - 10/31/[address] [id number]- Encounter Diagnosis Diverticulitis(Final) - 10/28/22 Constipation(Final) - 10/28/22 Abdominal pain(Final) - 10/28/22 Discharge Disposition: A-D/C Home Attending Physician: Nicholas Russ MD Admitting Physician: Brooks Piedra MD Referring Physician: Not on Staff, Referring MD [...] and Recorded Vaccine Date Status Refusal Reason SARS-CoV-2 (COVID-19) mRNA BNT-162b2 vac 04/06/21 Recorded SARS-CoV-2 (COVID-19) mRNA BNT-162b2 vac 08/12/20 Recorded SARS-CoV-2 (COVID-19) mRNA BNT-162b2 vac 07/22/20 Recorded Medications allopurinol 100 mg oral tablet 100 mg, 1, tablet, By Mouth, Daily, (LAST FILLED [facility] 10/13/22), Refills 0, Maintenance, 09/18/22 16:24:00 EDT, Partial fill upon patient request if the prescription is for a schedule II opioid drug. Start Date: 09/18/22 Status: Ordered amLODIPine 5 mg oral tablet 5 mg, Tablet, By Mouth, 10/31/22 9:00:00 EDT Start Date: 10/31/22 Stop Date: 10/31/22 Status: Completed amLODIPine 5 mg oral tablet 1 tablet = 5 mg, By Mouth, Daily, (LAST FILLED [facility] 10/06/22), Maintenance, 10/28/22 13:36:00 EDT, Tablet, Partial fill upon patient request if the prescription is for a schedule II opioid drug. Start Date: 10/28/22 Status: Ordered aspirin 81 mg oral delayed release tablet 81 mg, 1, tablet, By Mouth, Daily, # 30 tablet, Refills 0, Tot. Refills 0, Maintenance, 02/24/22 16:24:00 EDT, Route to Pharmacy Electronically, [facility], Partial fill upon patient request if the prescription is for a schedule II opioi... Start Date: 02/24/22 Status: Ordered BD PEN NEEDL MIS [id number] [place] BD PEN NEEDL MIS [id number] [place], 0 Refills, Maintenance, 09/18/22 15:29:00 EDT Start Date: 09/18/22 Status: Ordered cefdinir 300 mg oral capsule 1 capsule = 300 mg, By Mouth, Every 12 hours, # 6 capsule, 0 Refills, Acute 11/03/22 21:00:00 EDT, 10/31/22 7:50:00 EDT, Capsule, [facility], Partial fill upon patient request if the prescription is for a schedule II opioid drug., 160, c... Start Date: 10/31/22 Stop Date: 11/03/22 Status: Ordered donepezil 5 mg oral tablet 5 mg, 1, tablet, By Mouth, Daily at bedtime, (LAST FILLED [facility] 10/12/22), Refills 0,Maintenance, 11/08/19 12:35:00 EDT Start Date: 11/08/19 Status: Ordered famotidine 40 mg oral tablet 1 tablet = 40 mg, By Mouth, Daily, (LAST FILLED [facility] 10/04/22) Start Date: 09/18/22 Status: Ordered gabapentin 100 mg oral capsule 100 mg, Capsule, By Mouth, 10/31/22 9:00:00 EDT Start Date: 10/31/22 Stop Date: 10/31/22 Status: Completed gabapentin 100 mg oral capsule 100 mg, 1, capsule, By Mouth, 2 times a day, (LAST FILLED [facility] 10/02/22), Refills 0, Maintenance, 11/08/19 12:31:00 EDT Start Date: 11/08/19 Status: Ordered ibuprofen 400 mg oral tablet 400 mg, 1, tablet, By Mouth, Every 4 hours, PRN, # 60 tablet, Refills 0, Tot. Refills 0, Maintenance, for fever, 10/18/22 4:26:00 EDT, Route to Pharmacy Electronically, [facility], Partial fill upon patient request if the prescription is for... Start Date: 10/18/22 Status: Ordered levothyroxine 0.1 mg oral tablet 1 tablet = 100 mcg, By Mouth, Daily, (LAST FILLED [facility] 10/03/22), Maintenance, 10/28/22 13:37:00 EDT, Tablet, Partial fill upon patient request if the prescription is for a schedule II opioid drug. Start Date: 10/28/22 Status: Ordered lisinopril 20 mg oral tablet 40 mg, Tablet, By Mouth, Hold for: SBP<110, 10/31/22 9:00:00 EDT Start Date: 10/31/22 Stop Date: 10/31/22 Status: Completed lisinopril 40 mg oral tablet 1 tablet = 40 mg, By Mouth, Daily, (LAST FILLED [facility] 09/29/22), 0 Refills, Maintenance, 12/06/21 9:32:00 [...] opioid drug. Start Date: 09/18/22 Status: Ordered metoprolol 50 mg oral tablet, extended release 50 mg, XL Tablet, By Mouth, Hold for: SBP<100, HR<60, 10/31/22 9:00:00 EDT Start Date: 10/31/22 Stop Date: 10/31/22 Status: Completed Metoprolol Succinate ER 25 mg oral tablet, extended release 2 tablet = 50 mg, By Mouth, Daily, (LAST FILLED [facility] 10/12/22) Start Date: 12/06/21 Status: Ordered metroNIDAZOLE 500 mg oral tablet 1 tablet = 500 mg, By Mouth, 3 times a day, do not drink alcohol, may take with food to minimize abdominal discomfort, # 9 tablet, 0 Refills, Acute 11/03/22 21:00:00 EDT, 10/31/22 7:51:00 EDT, Tablet, [facility], Partial fill upon elizabeth... Start Date: 10/31/22 Stop Date: 11/03/22 Status: Ordered morphine 15 mg oral tablet, immediate release 0.5 tablet = 7.5 mg, By Mouth, Every 4 hours, PRN for pain, # 15 tablet, 0 Refills, Maintenance, 10/31/22 8:05:00 EDT, Tablet, [facility], Partial fill upon patient request if the prescription is for a schedule II opioid drug., 160, cm,... Start Date: 10/31/22 Stop Date: 11/05/22 Status: Ordered MorPHINE Immediate Release Tablet 15 mg, Tablet, By Mouth, Every 4 hours, PRN for Pain , Severe, Hold for sedation, SBP less than 100, RR under 14, Routine, 10/29/22 15:49:00 EDT Start Date: 10/29/22 Stop Date: 10/31/22 Status: Discontinued Plavix 75 mg oral tablet 75 mg, 1, tablet, By Mouth, Daily, (LAST FILLED [facility] 10/12/22), Refills 0, Maintenance, 11/08/19 12:35:00 [...] 1 Refills, Maintenance, 01/27/22 10:57:00 EDT, Capsule, [facility], Partial fill upon patient request if the prescription is for a schedule II opioid drug., 160, cm, 12/07/21 7:04:00 EDT,... Start Date: 01/27/22 Status: Ordered Senna 8.6 mg oral tablet 8.6 mg, 1, tablet, By Mouth, Daily at bedtime, (LAST FILLED [facility] 10/25/22), Refills 0, Maintenance, 09/18/22 16:26:00 EDT, Partial fill upon patient request if the prescription is for a schedule II opioid drug. Start Date: 09/18/22 Status: Ordered Tresiba FlexTouch 200 units/mL subcutaneous solution = 18 units, Subcutaneous Injection, Daily at bedtime, rotate injection sites (LAST FILLED 2020), 0 Refills, Maintenance, 11/08/19 12:31:00 EDT, Solution Start Date: 11/08/19 Status: Ordered Tylenol 325 mg oral capsule 2 capsule = 650 mg, By Mouth, Every 4 hours, PRN as needed for fever, # 90 capsule, 0 Refills, Maintenance, 10/18/22 4:27:00 EDT, Capsule, [facility], Partial fill upon patient request if the prescription is for a schedule II opioid drug., 1... Start Date: 10/18/22 Status: Ordered Vitamin B-12 1000 mcg oral tablet 1,000 mcg, 1, tablet, By Mouth, Daily, (LAST FILLED [facility] 10/06/22), Refills 0, Maintenance, 09/18/22 15:30:00 EDT, Partial fill upon patient request if the prescription is for a schedule II opioid drug. Start Date: 09/18/22 Status: Ordered Vitamin B6 100 mg oral tablet 1 tablet = 100 mg, By Mouth, Daily, (LAST FILLED [facility] 10/25/22), Maintenance, 10/28/22 13:42:00 EDT, Tablet, Partial fill upon patient request if the prescription is for a schedule II opioid drug. Start Date: 10/28/22 Status: Ordered Vitamin D3 5000 intl units oral tablet 1 tablet = 125 mcg, By Mouth, Daily, (LAST FILLED [facility] 09/29/22), 0 Refills, Maintenance, 01/26/22 23:18:00 EDT, [...] Type 2 diabetes mellitus Confirmed Active Results Orders for Microbiology Reports Name Date Blood Culture 10/28/22 Blood Culture #2 10/28/22 Urine Culture (URINE CULTURE) 10/28/22 Microbiology Reports TEST:Blood Culture STATUS:Unauthenticated BODY SITE: SOURCE:Blood COLLECTED DATE/TIME:10/28/22 11:38 AM Blood Culture SPECIMEN DESCRIPTION : BLOOD SPECIAL REQUESTS : NONE CULTURE : NO GROWTH 3 DAYS REPORT STATUS : PRELIMINARY REPORT TEST:Blood Culture, Second Order STATUS:Unauthenticated BODY SITE: SOURCE:Blood COLLECTED DATE/TIME:10/28/22 11:24 AM Blood Culture, Second Order SPECIMEN DESCRIPTION : BLOOD NO SITE SPECIAL REQUESTS : NONE CULTURE : NO GROWTH 3 DAYS REPORT STATUS : PRELIMINARY REPORT TEST:Urine Culture STATUS:Auth (Verified) BODY SITE: SOURCE:URINE COLLECTED DATE/TIME:10/28/22 9:10 AM Urine Culture SPECIMEN DESCRIPTION : URINE SPECIAL REQUESTS : NONE CULTURE : 10-50,000 COL/ML ESCHERICHIA COLI This isolate was identified using Maldi-TOF system These AST results were performed on the Proxinocan ID and AST system REPORT STATUS : FINAL 10/30/2022 ORGANISM 10-50,000 COL/ML ESCHERICHIA COLI This isolate was identified using Maldi-TOF system These AST results were performed on the Proxinocan ID and AST system METHOD MIN. INHIB. CONC. (MCG/ML) AMPICILLIN SUSCEPTIBLE AMPICILLIN/SULBACTAM SUSCEPTIBLE AMOXICILLIN/CLAVULAN SUSCEPTIBLE CEFAZOLIN INTERMEDIATE CEFEPIME SUSCEPTIBLE CEFTRIAXONE SUSCEPTIBLE CIPROFLOXACIN RESISTANT ERTAPENEM SUSCEPTIBLE GENTAMICIN SUSCEPTIBLE LEVOFLOXACIN RESISTANT MEROPENEM SUSCEPTIBLE NITROFURANTOIN INTERMEDIATE PIPERACILLIN/TAZOBAC SUSCEPTIBLE TRIMETH/SULFAMETHOX SUSCEPTIBLE TETRACYCLINE SUSCEPTIBLE Radiology Reports * Exam Date Time Procedure Performing Provider Status 10/28/22 9:[address] Abdomen and Pelvi s W/O Contrast Judie Becker; Auth (Verified) Notes: (CT Abdomen and Pelvis W/O Contrast) Reason For Exam: Flank pain, kidney stone suspected;Other: RESULT: CT Abdomen and Pelvis W/O Contrast CT Abdomen and Pelvis W/O Contrast Reason: Left-sided flank pain. Prior history of stone in the left ureter TECHNIQUE: Spiral CT through the abdomen and pelvis without IV contrast formatted in 3 planes. Thisstudy was performed without oral contrast. Weight- based protocol using automatic tube modulation was used to optimize exposure parameters. CTDIvol Body: 3.90 mGy, DLP Body: 190 mGy*cm. COMPARISON: 10/18/2022 FINDINGS: Tour Actor View Findings, Lines and Tubes: Partially visualized dual-lead left subclavian pacemaker Visualized Chest: Lung bases are clear. No pleural effusion. Visualized Diaphragm: Normal. Liver: Normal. Gallbladder: No CT evidence of gallbladder pathology. Bile ducts: No biliary ductal dilation. Spleen: Normal. Pancreas: Normal. Adrenal glands: Unchanged, 1.3 cm nodule in the left adrenal gland, consistent with adrenal adenoma. No lesion in the right adrenal gland. Kidneys and ureters: Similar, multiple small nonobstructing calculi in both the kidneys. Unchanged position 2 mm calcification in the region of the left ureter (201, 68). Similar, mild fullness in the left proximal collecting system Bladder: Normal. Reproductive organs: Unremarkable. Stomach, small bowel, and large bowel: Large stool burden in the sigmoid colon, causing dilation measuring up to 9 cm, slightly worse than prior examination. Multiple scattered diverticula throughoutthe colon. There is mild stranding adjacent to diverticula in the distal descending colon, series 2on image 53. Appendix: Not seen, but no evidence of appendicitis. Peritoneum and retroperitoneum: No ascites or pneumoperitoneum. No omental or mesenteric lesions. Lymph nodes: No enlarged lymph nodes. Blood vessels: Severe atherosclerotic vascular calcification. Similar, infrarenal aortic aneurysm measuring 3.4 cm in AP dimension. Abdominal and pelvic wall: Unremarkable. Bones: Multilevel degenerative changes without acute findings. IMPRESSION: 1. Essentially similar, 2 mm calculus in the proximal to mid left ureter with mild fullness in the proximal collecting system. Multiple additional bilateral nonobstructing renal calculi. 2. Subtle stranding adjacent to a diverticula in the distal descending colon suggests early diverticulitis. 3. Severe stool burden in the sigmoid colon causing mild dilation measuring up to 9 cm, slightly increased from prior examination. 4. A 3.4 cm infrarenal aortic aneurysm. Recommend follow-up ultrasound or CTA in 3 years per simplified ACR and SVS guidelines. Reference: Cali CAMARENA et al. J Vasc Surg 2018; 67:2-77. Society for Vascular Surgery 2018 practice guidelines on the care of patients with an abdominal aortic aneurysm. I have personally reviewed the images and I agree with this report. WSN: [id number] Ordering Physician: Perry Nielson Dictated By: Ellie Herrera MD Dictated Date/Time: 10/28/22 9:58 am Reviewed By: Jason Calero MD Signed By: Jason Calero MD Signed Date/Time: 10/28/22 10:03 am Transcribed By: FERMIN Transcribed Date/Time: 10/28/22 9:30 am Vital Signs Most recent to oldest [Reference Range]: 1 2 3 Height 160 cm (10/31/22 7:19 AM) 160 cm (10/31/22 3:46 AM) 160 cm (10/30/22 11:49 PM) Oxygen Saturation [94-100 %] 93 % *L* (10/31/22 7:19 AM) 99 % (10/31/22 3:46 AM) 97 % (10/30/22 11:49 PM) Pulse Rate [55-90 bpm] 90 bpm (10/31/22 8:09 AM) 61 bpm (10/31/22 7:19 AM) 69 bpm (10/31/22 3:46 AM) Blood Pressure [90-138/55-84 mm Hg] 156/66mm Hg *H* (10/31/22 8:09 AM) 156/66mm Hg *H* (10/31/22 8:09 AM) 156/66mm Hg *H* (10/31/22 8:09 AM) Respiratory Rate [16-30 br/min] 18 br/min (10/31/22 7:34 AM) 18 br/min (10/31/22 7:34 AM) 18 br/min (10/31/22 7:19 AM) Temperature [96.8-100.4 DegF] 97.8 DegF (10/31/22 7:19 AM) 97.8 DegF (10/31/22 3:46 AM) 97.8 DegF (10/30/22 11:49 PM) Mode of Delivery (Oxygen) Room air (10/31/22 7:19 AM) Room air (10/31/22 3:46 AM) Room air (10/30/22 11:49 PM) Blood pressure sites Arm, right (10/31/22 7:19 AM) Arm, left (10/31/22 3:46 AM) Arm, left (10/30/22 11:49 PM) Temperature Route Oral (10/31/22 7:19 AM) Oral (10/31/22 3:46 AM) Oral (10/30/22 11:49 PM) Social History Social History Type Response Tobacco Use: 4 or less cigar ettes(less than 1/4 pack)/day in last 30 days. Sex History and physical note * Penny LORA, Mae A: PERFORM Event Display: History and Physical Hospital Authored Date: Patient: ??SARA JOSHI ? Age:??77 Years?Sex:??Female?:??1945?? Chief Complaint/Reason for Consultation Coming from assisted living ([facility]). Was here last wk and was noted to have stones.Today with increased L flank pain. History of Present Illness 10/28/2022 ?? 77-year-old female with PMH including HTN, HLD, DM, CAD, sick sinus syndrome s/p pacemaker in 2018,gout, hypothyroidism, kidney stone AAA. ??Patient presented to ER with flank pain. ?? Patient was recently seen in ER on 10/18 for left flank pain, dysuria, hematuria. ??CT scan of the abdomen showed partially obstructing 0.3 cm stone in the proximal/mid left ureter causing mild left hydronephrosis. ??There were multiple additional nonobstructing bilateral kidney stone. ??There was also infrarenal abdominal aortic aneurysm up to 3.9 cm. ??There was mild colonic diverticulosis without any diverticulitis. ??Patient was given pain medication and discharged. ?? The patient states that after being discharged from hospital, she was doing fine, she did not really need to take any pain medication. ??However the pain came back yesterday. ??The pain is on the left side of the flank, sharp, radiates around the flank towards the lower abdomen, intermittent, worsewith any movement, no relieving factor. ??The pain is similar to the pain she had 10 days ago. ??Due to the pain initially she was having difficulty micturating, however currently is able to void without any problem. ??Denies any fever, nausea, vomiting, diarrhea. She has had bowel movement day before yesterday, does not feel constipated. ?? In ER patient was hemodynamically stable although slightly bradycardic. ??Her labs unremarkable, lipase 19 9, UA shows [address] WBC. ?? CT scan of the abdomen: IMPRESSION:?? 1. ??Essentially similar, 2 mm calculus in the proximal to mid left ureter with mild fullness in the proximal collecting system. Multiple additional bilateral nonobstructing renal calculi. 2. ??Subtle stranding adjacent to a diverticula in the distal descending colon suggests early diverticulitis. 3. ??Severe stool burden in the sigmoid colon causing mild dilation measuring up to 9 cm, slightly increased from prior examination. 4. ??A 3.4 cm infrarenal aortic aneurysm. ?? Patient was given ceftriaxone and metronidazole. ??Patient was placed for further observation. WhenI saw the patient she says that pain has improved considerably. Review of Systems All systems reviewed and negative except as in HPI. Objective Measurements?? Height: 160 cm (10/29/22) ?? Vital Signs?? Temperature: 97.7 DegF (10/29/22 04:28:00) Temperature Route: Oral (10/29/22 04:28:00) Pulse Rate: 66 bpm (10/29/22 04:28:00) Respiratory Rate: 21 br/min (10/29/22 04:28:00) Systolic Blood Pressure:??149 mm Hg??High (10/29/22 04:28:00) Diastolic Blood Pressure: 66 mm Hg (10/29/22 04:28:00) Blood pressure sites: Arm, right (10/29/22 04:28:00) Mean Arterial Pressure: 94 mm Hg (10/29/22 04:28:00) Pulse Pressure: 83 mm Hg (10/29/22 04:28:00) Oxygen Saturation: 100 % (10/29/22 04:28:00) Mode of Delivery (Oxygen): Room air (10/29/22 04:28:00) Early Warning Score: 4 (10/29/22 04:29:18) ? Physical Exam Constitutional: ??Alert,??no acute distress, co-operative, lying on the bed, saturating well on room air. ?? Mental state: Oriented x 3. Head: ??Normocephalic, atraumatic. ?? Eye:?No discharge. ENT: No discharge. Neck: ??Supple,??no JVD. Cardiovascular: ??S1, S2. Regular rhythm. No MRG. Respiratory: ??Lungs are clear to auscultation b/l, No RRR. ?? Gastrointestinal: ??Soft, mild tender over left flank, Non distended, ??Normal bowel sounds.?? Genitourinary: Mild tender over left flank. Neurological: ??Cranial nerves intact. Motor and sensory intact. Back: ??Nontender. Musculoskeletal: ??Normal ROM.?? No edema Hematology: No lymphadenopathy Skin: ??Warm, dry. Psychiatric: ??Cooperative.?? Assessment/Plan Diagnoses Abdominal pain ??(R10.9) Constipation ??(K59.00) Diverticulitis ??(K57.92) Hydronephrosis, left ??(N13.30) Renal colic ??(N23) ?? Assessment:??77-year-old female with PMH including HTN, HLD, DM, CAD, sick sinus syndrome s/p pacemaker in 2018, gout, hypothyroidism, kidney stone AAA. Patient presented to ER with flank pain. ?? Renal colic (N23):??. Hydronephrosis, left (N13.30):??. Patient presented with??left flank pain??which comes around the left flank towards the??suprapubic area,??classical for??renal??colic.?? 10 days ago patient was found to have a 0.3 cm??left renal stone partially obstructing with mild hydronephrosis.?? CAT scan done??today??shows similar features.??The pain she is??describing??is renal colic.?? Renal function??normal.?? No sign of??urinary infection. Continue??pain control. Strain all urine. Gentle IV fluid hydration. We will follow-up with . Follow-up urine culture. ?? Diverticulitis (K57.92):??. CT scan also shows??early??diverticulitis. Patient was given ceftriaxone and metronidazole Continue pain medication. Continue IV fluid hydration. Follow blood culture. Currently on clear liquids. ?? Constipation (K59.00):??. CT scan showing severe stool burden. Bowel regimen. ?? Home medication: HTN: Continue amlodipine, metoprolol, lisinopril. HLD:??Continue rosuvastatin. DM:??POC glucose??and SSI. CAD: Continue aspirin,??clopidogrel, statin. Gout: Continue allopurinol. Hypothyroidism: Continue levothyroxine. AAA: Monitor. Continue gabapentin. Continue paroxetine. Continue donepezil . ?? VTE Prophylaxis:??SCD ?VTE Prophylaxis Assessment:??VTE Prophylaxis Ordered ?? Code Status:??full code ?Order Code Status:??Code Status Ordered ?? Discharge Planning:? Histories Allergies Allergies ?(Active and Proposed Allergies [...] 2 diabetes mellitus ? Past Surgical History No surgery history documented. ? Social History Alcohol Details:??Use: Never. Substance Abuse Details:??Use: Never. Tobacco Details:??Use: 4 or less cigarettes(less than 1/4 pack)/day in last 30 days. Electronic Cigarette/Vaping Details:??Electronic Cigarette Use: Never. ? Family History No family history recorded. ? Medications Home Medications Acetaminophen (Tylenol 325 mg oral capsule)?2?capsule?650?Milligram?By Mouth?Every 4 hours?as needed?as needed for fever Allopurinol (allopurinol 100 mg oral tablet)?100?Milligram?1?tablet?By Mouth?Daily?(LAST FILLED [facility] 10/13/22) Amlodipine (amLODIPine 5 mg oral tablet)?1?tab(s)?5?Milligram?By Mouth?Daily?(LAST FILLED [facility] 10/06/22) Aspirin (aspirin 81 mg oral delayed release tablet)?81?Milligram?1?tablet?By Mouth?Daily Cholecalciferol (Vitamin D3 5000 intl units oral tablet)?1?tab(s)?125?Microgram?By Mouth?Daily?(LAST FILLED [facility] 09/29/22) Clopidogrel (Plavix 75 mg oral tablet)?75?Milligram?1?tablet?By Mouth?Daily?(LAST FILLED [facility] 10/12/22) Cyanocobalamin (Vitamin B-12 1000 mcg oral tablet)?1,000?Microgram?1?tablet?By Mouth?Daily?(LAST FILLED [facility] 10/06/22) Donepezil (donepezil 5 mg oral tablet)?5?Milligram?1?tablet?By Mouth?Daily at bedtime?(LAST FILLED [facility] 10/12/22) Famotidine (famotidine 40 mg oral tablet)?1?tab(s)?40?Milligram?By Mouth?Daily?(LAST FILLED [facility] 10/04/22) Gabapentin (gabapentin 100 mg oral capsule)?100?Milligram?1?capsule?By Mouth?2 times a day?(LAST FILLED [facility] 10/02/22) Ibuprofen (ibuprofen 400 mg oral tablet)?400?Milligram?1?tablet?By Mouth?Every 4 hours?as needed?for fever insulin degludec (Tresiba FlexTouch 200 units/mL subcutaneous solution)?18?unit(s)?Subcutaneous Injection?Daily at bedtime?rotate injection sites(LAST FILLED 2020) Levothyroxine (levothyroxine 0.1 mg oral tablet)?1?tab(s)?100?Microgram?By Mouth?Daily?(LAST FILLED [facility] 10/03/22) Lisinopril (lisinopril 40 mg oral tablet)?1?tab(s)?40?Milligram?By Mouth?Daily?(LAST FILLED [facility] 09/29/22) Loperamide (loperamide 2 mg oral capsule)?2?Milligram?1?capsule?By Mouth?Daily?as needed?do not excnot to exceed 8 capsules, or 16 mg, in 24 hours?Loose Stool Metoprolol (Metoprolol Succinate ER 25 mg oral tablet, extended release)?2?tab(s)?50?Milligram?By Mouth?Daily?(LAST FILLED [facility] 10/12/22) Morphine (morphine 15 mg oral tablet, immediate release)?0.5?tab(s)?7.5?Milligram?ByMouth?Every 4 hours?as needed?for pain Polyethylene Glycol 3350 (polyethylene glycol 3350 oral powder for reconstitution)?17?gram?By Mouth?2 times a day?as needed?Constipation?dissolve in water or juice before taking Pyridoxine (Vitamin B6 100 mg oral tablet)?1?tab(s)?100?Milligram?By Mouth?Daily?(LAST FILLED [facility] 10/25/22) Rosuvastatin (rosuvastatin 20 mg oral capsule)?1?capsule?20?Milligram?By Mouth?Daily Senna (Senna 8.6 mg oral tablet)?8.6?Milligram?1?tab(s)?By Mouth?Daily at bedtime?(LAST FILLED [facility] 10/25/22) ? Inpatient Medications Medications (32) Active SCHEDULED: (16) Allopurinol 100 mg Tablet (allopurinol 100 mg oral tablet) ??100 mg, By Mouth, Daily Amlodipine 5 mg Tablet (amLODIPine 5 mg oral tablet) ??5 mg, By Mouth, Daily Aspirin 81 mg EC Tablet (aspirin 81 mg oral delayed release tablet) ??81 mg, By Mouth, Daily Ceftriaxone 1 Gm Inj (Ceftriaxone IVPB) ??1 Gm, IVPB, Every 24 hours Clopidogrel 75 mg Tablet (Plavix 75 mg oral tablet) ??75 mg, By Mouth, Daily Donepezil 5 mg Tablet (donepezil 5 mg oral tablet) ??5 mg, By Mouth, Daily at bedtime Famotidine 20 mg Tablet (famotidine 20 mg oral tablet) ??40 mg, By Mouth, Daily Gabapentin 100 mg Capsule (gabapentin 100 mg oral capsule) ??100 mg, By Mouth, 2 times a day Levothyroxine 100 mcg Tablet (levothyroxine 0.1 mg oral tablet) ??100 mcg, By Mouth, Daily Lisinopril 20 mg Tablet (lisinopril 20 mg oral tablet) ??40 mg, By Mouth, Daily Metoprolol 50 mg XL Tablet (metoprolol 50 mg oral tablet, extended release) ??50 mg, By Mouth, Daily Metronidazole 500 mg / NaCL 0.9% 100 mL (Metronidazole IVPB) ??500 mg 100 mL, IVPB, Every 8 hours NaCl 0.9% Flush 3ml (NaCL 0.9% Flush) ??3 mL, IV Push, Every 8 hours Pyridoxine 50 mg Tablet (Vitamin B6 50 mg oral tablet) ??100 mg, By Mouth, Daily Rosuvastatin 20 mg Tablet (rosuvastatin 20 mg oral tablet) ??20 mg, By Mouth, Daily Vitamin B-12 ??1000 mcg Tablet (Vitamin B-12 1000 mcg oral tablet) ??1,000 mcg, By Mouth, Daily CONTINUOUS: (1) Lactated Ringers (1000 mL) Cont IV 1,000 mL (LR 1,000 mL) ??1,000 mL, IV Infusion, 75 mL/hr PRN: (15) Acetaminophen 325 mg Tablet (Acetaminophen Tablet) ??650 mg, By Mouth, Every 4 hours Dextromethorphan-Guaifenesin 20 mg-200 mg/10 mL Liqu UD (Robitussin DM Liquid) ??10 mL, By Mouth, Every 4 hours Dextrose Inj Syringe (Dextrose 50% Inj Syringe (25Gm)) ??12.5 Gm, IV Push Slowly, Every 20 minutes Dextrose Inj Syringe (Dextrose 50% Inj Syringe (25Gm)) ??25 Gm, IV Push Slowly, Every 15 minutes Enema Saline Laxative Adult 7 g-19 g (Fleet Enema) ??1 each, Rectally, Once Glucagon 1 mg Inj (Glucagon Inj) ??1 mg, Intramuscular, Once Glucose 40% Gel (15 Gm) (Glucose Gel) ??15 Gm, By Mouth, Every 20 minutes Glucose 40% Gel (15 Gm) (Glucose Gel) ??30 Gm, By Mouth, Every 20 minutes Insulin Lispro 100 units/mL Inj (3mL) (Insulin LISPRO Scale) ??2-7 units, Subcutaneous Injection, Every 6 hours Melatonin 3 mg Tablet (Melatonin Tablet) ??3 mg, By Mouth, Daily at bedtime MorPHINE 2 mg Inj Syringe (MorPHINE Inj) ??2 mg, IV Push Slowly, Every 4 hours NaCl 0.9% Flush 3ml (NaCL 0.9% Flush) ??3 mL, IV Push, Every 8 hours Polyethylene Glycol 17 Gm Powder (MiraLax Powder) ??17 Gm 1 pack/packet, By Mouth, Daily Senna 8.6 mg / Docusate 50 mg tablet (Docusate/Senna Tablet) ??1 tablet, By Mouth, 2 times a day Simethicone 80 mg Chewable Tablet (Simethicone Tablet) ??80 mg, Chew, 3 times a day ? Results Recent Labs BLOOD COUNT & DIFF WBC 9.1 k/mm3 ()?? 10/28/2022 08:35 RBC 4.91 m/mm3 ()?? 10/28/2022 08:35 Hgb 14.1 Gm/dL ()?? 10/28/2022 08:35 Hct 45.5 % ()?? 10/28/2022 08:35 MCV 92.7 femtoliters ()?? 10/28/2022 08:35 MCH 28.7 pg ()?? 10/28/2022 08:35 MCHC 31.0 g/dL (Low)?? 10/28/2022 08:35 Platelet Count 219 k/mm3 ()?? 10/28/2022 08:35 RDW-SD 46.6 femtoliters ()?? 10/28/2022 08:35 MPV 9.9 femtoliters ()?? 10/28/2022 08:35 Nucleated RBC (Automated) 0.0 #/100 WBC'S ()?? 10/28/2022 08:35 Abs. NRBC 0.0 k/mm3 ()?? 10/28/2022 08:35 Abs. Neut 6.4 k/mm3 ()?? 10/28/2022 08:35 Abs. Lymph 2.0 k/mm3 ()?? 10/28/2022 08:35 Abs. [place] 0.5 k/mm3 ()?? 10/28/2022 08:35 Abs. Eo 0.1 k/mm3 ()?? 10/28/2022 08:35 Abs. Baso 0.1 k/mm3 ()?? 10/28/2022 08:35 Neut % 70.3 % ()?? 10/28/2022 08:35 Lymph % 21.6 % ()?? 10/28/2022 08:35 [place] % 5.6 % ()?? 10/28/2022 08:35 Eos % 1.4 % ()?? 10/28/2022 08:35 Baso % 0.8 % ()?? 10/28/2022 08:35 Imm Gran 0.3 % ()?? 10/28/2022 08:35 Abs. Imm Gran 0.0 k/mm3 ()?? 10/28/2022 08:35 ?? CHEM GENERAL Sodium 144 mmol/L ()?? 10/28/2022 08:24 Potassium 3.6 mmol/L ()?? 10/28/2022 08:24 Chloride 108 mmol/L (High)?? 10/28/2022 08:24 Bicarbonate Level 29 mmol/L ()?? 10/28/2022 08:24 Anion Gap 7 ()?? 10/28/2022 08:24 Glucose Level 92 mg/dL ()?? 10/28/2022 08:24 BUN 20 mg/dL ()?? 10/28/2022 08:24 Creatinine-Blood 0.8 mg/dL ()?? 10/28/2022 08:24 Estimated GFR Creatinine 76 ML/MIN/1.73 M2 ()?? 10/28/2022 08:24 Calcium 9.0 mg/dL ()?? 10/28/2022 08:24 Protein, Total 6.4 Gm/dL ()?? 10/28/2022 08:24 Albumin 4.0 Gm/dL ()?? 10/28/2022 08:24 AG Ratio 1.7 ()?? 10/28/2022 08:24 Alkaline Phosphatase 98 units/L ()?? 10/28/2022 08:24 Lipase 99 units/L (High)?? 10/28/2022 08:24 AST (SGOT) 22 units/L ()?? 10/28/2022 08:24 ALT (SGPT) 18 units/L ()?? 10/28/2022 08:24 Bilirubin, Total 0.2 mg/dL ()?? 10/28/2022 08:24 ?? UA/URINALYSIS Appear/Color, Urine LIGHT YELLOW ()?? 10/28/2022 09:10 Specific [place], Urine 1.015 ()?? 10/28/2022 09:10 pH, Urine 6.5 ()?? 10/28/2022 09:10 Albumin, Urine 1+ (Abnormal)?? 10/28/2022 09:10 Glucose, Urine NEGATIVE ()?? 10/28/2022 09:10 Ketones, Urine NEGATIVE ()?? 10/28/2022 09:10 Bilirubin, Urine NEGATIVE ()?? 10/28/2022 09:10 Hemoglobin, Urine NEGATIVE ()?? 10/28/2022 09:10 Nitrite, Urine NEGATIVE ()?? 10/28/2022 09:10 Leukocyte, Urine TRACE (Abnormal)?? 10/28/2022 09:10 Urobilinogen NORMAL mg/dL ()?? 10/28/2022 09:10 WBC's, Urine 6 /HPF (High)?? 10/28/2022 09:10 RBC's, Urine 1 /HPF ()?? 10/28/2022 09:10 Bacteria SLIGHT HPF (Abnormal)?? 10/28/2022 09:10 Squamous Epith 1 /HPF ()?? 10/28/2022 09:10 Mucus SLIGHT /LPF ()?? 10/28/2022 09:10 Hold Urine Culture Testing available 48 hours from time of collection. ()?? 10/28/2022 09:10 ?? VIROLOGY COVID-19 by RT-PCR NEGATIVE ()?? 10/28/2022 12:05 ? Microbiology ?? COVID-19 (Novel Coronavirus), Rapid PCR?? Completed?? Source: Nasal Body Site: Nose Collected Dt/Tm: 10/28/2022 11:51 Last Updated Dt/Tm: 10/28/2022 12:55 ? EKG study * Event Display: EKG Authored Date: Hospital Progress note * Sara Dorantes RN: PERFORM, SIGN, VERIFY Event Display: Progress Note Hospital Authored Date: Patient: SARA JOSHI Age: 77 years Sex: Female : 1945 Associated Diagnoses: None Author: Sara Dorantes RN Findings Narrative/Incidental Patient's medications were picked up and hand delivered to the [facility] shag truck driver, who in return will give to the Anni Pena Nurse. Patient picked up by [facility] luiz , peripheral IV removed from the right arm, tip intact. Will continue to monitor.. Discharge Information Case Management Discharge Plan : Case Management Discharge Plan Data 10/31/2022 9:56 EDT Discharge Level of Care at Discharge Home/[facility] Care * Rosie Stratton RN: PERFORM, SIGN, VERIFY Event Display: Progress Note Hospital Authored Date: [id number] Patient: SARA JOSHI Age: 77 years Sex: Female : 1945 Associated Diagnoses: None Author: Rosie Stratton RN Findings Problem Related to Alteration in Gastrointestinal : Alteration in Gastrointestinal Func/new 10/30/2022 7:00 EDT Alteration in GI status Related to Other: Diverticulitis Goals & Outcomes, Gastrointestinal Establish a regular pattern of elimination for pt, Nutritional intake is adequate for metabolic needs, Pt will achieve normal/improved fluid balance, Pt will have a bowel movement prior to discharge, Pt will maintain adequate GI function appropriate for pt, Ptwill maintain normal elimination patterns, Pt will resume/maintain adequate hemodynamic status, Pt w ill tolerate age appropriate diet prior to discharge Interventions, Gastrointestinal Assess/monitor abdomen for distention, tenderness, Assess/monitor bowel pattern, bowel sounds, flatus, Assess/monitor number of bowel movements, Assess/monitor pt for nausea, vomiting, Assess/monitor effects of re-hydration, Assess/monitor intake & output, Assessif pt tolerating diet Goals/Interventions, Gastrointestinal Yes Gastrointestinal, Problem Start 10/30/2022 7:40 Reviewed plan with, Gastrointestinal Patient Patient Progression, Gastrointestinal Plan Initiation . Alteration in Genitourinary : Alteration in Genitourinary Function/new 10/30/2022 7:00 EDT Alteration in Status Related to Other: RENAE Goals & Outcomes, Genitourinary Pt will achieve normal/improved fluid balance, Pt will maintainadequate GI function appropriate for pt, Pt will maintain adequate function appropriate for pt, Pt will maintain normal fluid balance, Pt will resume normal pattern of elimination, Pt/caregiver will state understanding of self-care skills Interventions, Assess/monitor/maintain Genitourinary status, Assist & encourage pt with meticulous crystal care, Encourage PO fluid intake as allowed by diet BH Goals/Interventions, Genitourinary Yes Genitourinary, Problem Start 10/30/2022 7:39 Reviewed Plan with, Genitourinary Patient Patient Progression, Genitourinary Plan Initiation Genitourinary, Problem Ongoing Yes . Nursing Data Vital Signs : VITAL SIGNS SECTION 10/30/2022 15:34 EDT Early Warning Score 2.00 10/30/2022 15:34 EDT Temperature 97.8 DegF Temperature Route Oral Pulse Rate 60 bpm Respiratory Rate 20 br/min Systolic Blood Pressure 147 mm Hg H Diastolic Blood Pressure 82 mm Hg Blood pressure sites Arm, left Mean Arterial Pressure 104 mm Hg Pulse Pressure 65 mm Hg Oxygen Saturation 99 % Mode of Delivery (Oxygen) Room air . Narrative/Incidental Pt A&Ox4, independent, c/o pain-meds given with good effect. VSS, lungs CTA, no edema. LR 100ml/hr -Call garay within reach. Pt able to make needs know. . * Stuart GALVAN, Lisa Holland: PERFORM, MODIFY, MODIFY Event Display: Progress Note Hospital Authored Date: Patient: ??SARA JOSHI ? Age:??77 Years?Sex:??Female?:??1945?? Subjective Patient states that she is doing well. She is still having some pain in her left flank consistent with her known stones. Denies chills, chest pain, SOB. Denies new or concerning symptoms. Review of Systems Full ROS conducted and negative except that mentioned in the HPI. Objective ?? Physical Exam Constitutional: ??Alert,??no acute distress, co-operative, lying on the bed, saturating well on room air. ?? Mental state: Oriented x 3. Head: Normocephalic, atraumatic. Neck: Supple,??no JVD. Cardiovascular: ??S1, S2. Regular rhythm. No MRG. Respiratory: Lungs are clear to auscultation b/l, No RRR. ?? Gastrointestinal: Soft, mild tender over left flank and LLQ, Non distended, Normal bowel sounds.?? Genitourinary: Mild tender over left flank. Neurological:??Cranial nerves intact. Motor and sensory intact. Musculoskeletal: ??Normal ROM.??No edema Hematology: No lymphadenopathy Skin: Warm, dry. Psychiatric: Cooperative.?? Assessment/Plan 77-year-old female with PMH including HTN, HLD, DM, CAD, sick sinus syndrome s/p pacemaker in 2018,gout, hypothyroidism, kidney stone AAA. Patient presented to ER with flank pain. ?? Renal colic (N23):?? Hydronephrosis, left (N13.30):??Patient presented with??left flank pain??which comes around the left flank towards the??suprapubic area,??classical for??renal??colic.?? 10 days ago patient was found to have a 0.3 cm??left renal stone partially obstructing with mild hydronephrosis.?? CAT scan done??t us[facility]??shows similar features.??The pain she is??describing??is renal colic.??Renal function??normal.??No sign of??urinary infection. ?? Plan: -Continue??pain control. -Strain all urine. -Gentle IV fluid hydration, LR 100mL/hr -Follow-up urine culture,??UA??not indicative of??infection. -Kidney function at baseline -Stone??is unchanged, actually smaller than when she was seen in the emergency room 2 weeks ago -Patient to follow-up with??outpatient urology as was recommended by??the emergency room 2 weeks ago on discharge, no indication for emergent intervention ?? Acute kidney injury: Cr 0.8--->1.2 overnight.???Pre-renal in the setting of poor??PO intake secondary to diverticulitis. ?? Plan: -Urine??sodium -Urine??Cr -Urine osms?? -Repeat UA with hold for??culture to r/o??UTI (is on abx therapy that would??cover) ?? Diverticulitis (K57.92):??CT scan also shows??early??diverticulitis, patient has had this once before and states it is a very similar presentation ?? Plan: -Continue??ceftriaxone and metronidazole -Continue pain medication, IV morphine??2 mg every 4 hours as needed -Continue IV fluid hydration, LR 75 mL/h -Follow blood culture, no growth so far -Advancing diet from clear liquids??to cardiac diet??as tolerated by patient ?? Constipation (K59.00):??CT scan showing severe stool burden. ?? Plan: -Bowel regimen. ?? Home medication: HTN: Continue amlodipine, metoprolol, lisinopril. HLD:??Continue rosuvastatin. DM:??POC glucose??and SSI. CAD: Continue aspirin,??clopidogrel, statin. Gout: Continue allopurinol. Hypothyroidism: Continue levothyroxine. AAA: Monitor. Continue gabapentin. Continue paroxetine. Continue donepezil ?? VTE Prophylaxis:??SCD Code Status:??full code Discharge Planning:??Can likely be discharged tomorrow if creatinine back to normal/RENAE resolving. ??Will need outpatient antibiotics to complete course??as well as??potentially??a few days of pain medication??if pain is persistent. Note * Sara Dorantes RN: PERFORM Event Display: Discharge/Transfer Note Hospital Authored Date: [id number] Nursing Discharge Note Entered On: 10/31/2022 9:56 EDT Performed On: 10/31/2022 9:56 EDT by Sara Dorantes RN Nursing Discharge Note 2 Discharge Time : 10/31/2022 10:46 EDT Sara Dorantes RN - 10/31/2022 10:47 EDT Discharge Level of Care at Discharge : Home/[facility] Patient Left Unit Via : Ambulance Patient Accompanied Off Unit with : Ambulance/Ch[facility] Personnel Handover Given to Transport Personnel : Yes DC Instructions Provided & Signed by Pt : No Patient Understands D/C Instructions : Yes Patient Instructions Discharge Signed : No Did Pt have Specialty Bed or Wound Vac : No Sara Dorantes RN - 10/31/2022 9:56 EDT * Lisa Maxwell: PERFORM, MODIFY, MODIFY Event Display: Discharge/Transfer Note Hospital Authored Date: [id number] Patient: ??SARA JOSHI ? Age:??77 Years?Sex:??Female?:??1945?? Patient Information Discharge Location: Primary Care Physician: Ashley Morales MD Admit Date/Time: 10/29/22 10:59 Discharge Disposition Discharge Disposition: Home: No Services- Assisted living Discharge Diagnosis Abdominal pain (R10.9) Constipation (K59.00) Diverticulitis (K57.92) Hydronephrosis, left (N13.30) Renal colic (N23) HTN (hypertension) Hypothyroidism _ Discharge Medications Acetaminophen (Tylenol 325 mg oral capsule)?2?capsule?650?Milligram?By Mouth?Every 4 hours?as needed?as needed for fever Allopurinol (allopurinol 100 mg oral tablet)?100?Milligram?1?tablet?By Mouth?Daily?(LAST FILLED [facility] 10/13/22) Amlodipine (amLODIPine 5 mg oral tablet)?1?tab(s)?5?Milligram?By Mouth?Daily?(LAST FILLED [facility] 10/06/22) Aspirin (aspirin 81 mg oral delayed release tablet)?81?Milligram?1?tablet?By Mouth?Daily Cefdinir (cefdinir 300 mg oral capsule)?1?capsule?300?Milligram?By Mouth?Every 12hours Cholecalciferol (Vitamin D3 5000 intl units oral tablet)?1?tab(s)?125?Microgram?By Mouth?Daily?(LAST FILLED [facility] 09/29/22) Clopidogrel (Plavix 75 mg oral tablet)?75?Milligram?1?tablet?By Mouth?Daily?(LAST FILLED [facility] 10/12/22) Cyanocobalamin (Vitamin B-12 1000 mcg oral tablet)?1,000?Microgram?1?tablet?By Mouth?Daily?(LAST FILLED [facility] 10/06/22) Donepezil (donepezil 5 mg oral tablet)?5?Milligram?1?tablet?By Mouth?Daily at bedtime?(LAST FILLED [facility] 10/12/22) Famotidine (famotidine 40 mg oral tablet)?1?tab(s)?40?Milligram?By Mouth?Daily?(LAST FILLED [facility] 10/04/22) Gabapentin (gabapentin 100 mg oral capsule)?100?Milligram?1?capsule?By Mouth?2 times a day?(LAST FILLED [facility] 10/02/22) Ibuprofen (ibuprofen 400 mg oral tablet)?400?Milligram?1?tablet?By Mouth?Every 4 hours?as needed?for fever insulin degludec (Tresiba FlexTouch 200 units/mL subcutaneous solution)?18?unit(s)?Subcutaneous Injection?Daily at bedtime?rotate injection sites(LAST FILLED 2020) Levothyroxine (levothyroxine 0.1 mg oral tablet)?1?tab(s)?100?Microgram?By Mouth?Daily?(LAST FILLED [facility] 10/03/22) Lisinopril (lisinopril 40 mg oral tablet)?1?tab(s)?40?Milligram?By Mouth?Daily?(LAST FILLED [facility] 09/29/22) Loperamide (loperamide 2 mg oral capsule)?2?Milligram?1?capsule?By Mouth?Daily?as needed?do not excnot to exceed 8 capsules, or 16 mg, in 24 hours?Loose Stool Metoprolol (Metoprolol Succinate ER 25 mg oral tablet, extended release)?2?tab(s)?50?Milligram?By Mouth?Daily?(LAST FILLED [facility] 10/12/22) Metronidazole (metroNIDAZOLE 500 mg oral tablet)?1?tab(s)?500?Milligram?By Mouth?3 times a day?do not drink alcohol, may take with food to minimize abdominal discomfort Morphine (morphine 15 mg oral tablet, immediate release)?0.5?tab(s)?7.5?Milligram?ByMouth?Every 4 hours?as needed?for pain?for 5?Days Polyethylene Glycol 3350 (polyethylene glycol 3350 oral powder for reconstitution)?17?gram?By Mouth?2 times a day?as needed?Constipation?dissolve in water or juice before taking Pyridoxine (Vitamin B6 100 mg oral tablet)?1?tab(s)?100?Milligram?By Mouth?Daily?(LAST FILLED [facility] 10/25/22) Rosuvastatin (rosuvastatin 20 mg oral capsule)?1?capsule?20?Milligram?By Mouth?Daily Senna (Senna 8.6 mg oral tablet)?8.6?Milligram?1?tab(s)?By Mouth?Daily at bedtime?(LAST FILLED [facility] 10/25/22) ?? Medications Started Cefdinir-300 mg twice a day for 3 days Metronidazole??500 mg every 8 hours??for 3 days Morphine??15 mg extended release??every 4 hours as needed??for pain Medications Discontinued None Doses Changed None Allergies Allergies ?(Active and Proposed Allergies Only) [...] ?Reactions: Nausea and vomiting status: disruptive effects ?? PCP Follow-Up/Heads-Up Patient was seen in hospital for??diverticulitis as well as renal colic,??her stone is actually smaller than the last time she had been seen in the emergency room, she should follow-up with urology about these.?? No intervention was necessary.?? Diverticulitis was treated with antibiotics, very mild case.?? No??changes were made to her long-term medications. Hospital Course Patient was admitted to the hospital on 10-29-2022 for complaint of diverticulitis??as well as renalcolic.??Patient has history of known??nephrolithiasis, was seen in the emergency room 2 weeks ago for a very small stone??3 mm in size,??causing??mild hydronephrosis with known kidney impairment. Shewas sent home from that emergency visit without admission.??She never followed up with urology,??presented again to the emergency room??prior to this admission??for complaint of renal colic and was found to also have a diverticulitis??infection. She has had 1 previous diverticulitis infection and states that is very similar,??textbook??left lower quadrant pain??with known diverticulosis.??She wasgiven??antibiotics in the form of IV metronidazole??and ceftriaxone, transition to oral??on discharge??to complete a 5-day course. Infection is very mild, no leukocytosis,??no fevers,??blood cultures negative.??No signs of perforation??or abscess.??She received CT??imaging to confirm these findings.??She did develop a very small RENAE??while in hospital,??commendation of prerenal/intrarenal??based on urine studies likely secondary to??both poor p.o. intake??for multiple days??given her infection??as well as CT??scan performed in the ER.??She continued to improve??while in the hospital,??had some lingering pain that was easily controlled with oral pain medication.??At time of discharge, she isstable and ready for discharge.??She should follow-up with urology for??her very small stone??and continue??the procedures??that they outlined of straining urine, etc.??All questions answered at bedside. Objective Assessment and Plan 77-year-old female with PMH including HTN, HLD, DM, CAD, sick sinus syndrome s/p pacemaker in 2018,gout, hypothyroidism, kidney stone AAA. Patient presented to ER with flank pain. ?? Renal colic (N23):?? Hydronephrosis, left (N13.30):??Patient presented with??left flank pain??which comes around the left flank towards the??suprapubic area,??classical for??renal??colic.?? 10 days ago patient was found to have a 0.3 cm??left renal stone partially obstructing with mild hydronephrosis.?? CAT scan done??t [facility]??shows similar features.??The pain she is??describing??is renal colic.??Renal function??normal.??No sign of??urinary infection. ?? Plan: -Discharged with a few additional days of??morphine p.o.??for pain control -Continue?previous ER/urology recommendations??included in plan below -Strain all urine. -Hydration is much as possible??at home -UA??not indicative of??infection -Follow-up urine culture??showing 10-50K colonies, susceptible to cetriaxone which patient has received in hospital -Kidney function at baseline -Stone??is unchanged, actually smaller than when she was seen in the emergency room 2 weeks ago -Patient to follow-up with??outpatient urology as was recommended by??the emergency room 2 weeks ago on discharge, no indication for emergent intervention ?? Acute kidney injury: Cr 0.8--->1.2---> back to baseline 0.8.?? Patient urine studies, this was likely??a prerenal??RENAE in the setting of poor p.o. intake,??with a component of??possible intrarenal??given CT scan that was received in the ER.?? She was received IV fluids for 1 day, and creatinine was back to baseline. ?? Diverticulitis (K57.92):??CT scan also shows??early??diverticulitis, patient has had this once before and states it is a very similar presentation ?? Plan: -Discharge with additional 3 days of cefdinir and metronidazole??to complete 5- day course of??antibiotics for mild diverticulitis -Morphine 15 mg extended release every 4 hours as needed??pain??for 5 days -Educated on??when to return, if patient develops fever, severe pain,??signs of abscess/perforation. ?? Constipation (K59.00):??Resolved ?? Home medication: HTN: Continue amlodipine, metoprolol, lisinopril. HLD:??Continue rosuvastatin. DM:??POC glucose??and SSI. CAD: Continue aspirin,??clopidogrel, statin. Gout: Continue allopurinol. Hypothyroidism: Continue levothyroxine. AAA: Monitor. Continue gabapentin. Continue paroxetine. Continue donepezil ?? Vital Signs?? Temperature: 97.8 DegF (10/31/22 07:19:00) Temperature Route: Oral (10/31/22 07:19:00) Pulse Rate: 90 bpm (10/31/22 08:09:00) Respiratory Rate: 18 br/min (10/31/22 07:34:00) Respiratory Rate: 18 br/min (10/31/22 07:34:00) Systolic Blood Pressure:??156 mm Hg??High (10/31/22 08:09:00) Systolic Blood Pressure:??156 mm Hg??High (10/31/22 08:09:00) Systolic Blood Pressure:??156 mm Hg??High (10/31/22 08:09:00) Diastolic Blood Pressure: 66 mm Hg (10/31/22 08:09:00) Diastolic Blood Pressure: 66 mm Hg (10/31/22 08:09:00) Diastolic Blood Pressure: 66 mm Hg (10/31/22 08:09:00) Blood pressure sites: Arm, right (10/31/22 07:19:00) Mean Arterial Pressure: 96 mm Hg (10/31/22 07:19:00) Pulse Pressure: 90 mm Hg (10/31/22 07:19:00) Oxygen Saturation:??93 %??Low (10/31/22 07:19:00) Mode of Delivery (Oxygen): Room air (10/31/22 07:19:00) Early Warning Score: 4 (10/31/22 08:11:51) . Physical Exam Constitutional: ??Alert,??no acute distress, co-operative, lying on the bed, saturating well on room air. ?? Mental state: Oriented x 3. Head: Normocephalic, atraumatic. Neck: Supple,??no JVD. Cardiovascular: ??S1, S2. Regular rhythm. No MRG. Respiratory: Lungs are clear to auscultation b/l, No RRR. ?? Gastrointestinal: Soft, mild tender over left flank and LLQ, Non distended, Normal bowel sounds.?? Genitourinary: Mild tender over left flank. Neurological:??Cranial nerves intact. Motor and sensory intact. Musculoskeletal: ??Normal ROM.??No edema Hematology: No lymphadenopathy Skin: Warm, dry. Psychiatric: Cooperative.?? Patient Education Titles Discharge Instructions for Diverticulitis?? Follow-Up Appointments Added Follow Up ?Time Frame ?Comments urology?3-5 day: call to discuss follow up visit?Patient to follow-up with urology, please call this number to??attempt to set up a??visit??to discuss your stones. Ashley Morales MD?3-5 day: call to discuss follow up visit?Patient to follow-up with your primary care??to keep him updated on this hospitalization and your general health. Patient Instructions You were seen and evaluated at [facility] for complaint of diverticulitis as well as nephrolithiasis/renal colic??(kidney stone).?? You are now stable and ready for discharge, be sure tofinish all of your antibiotics for the next 3 days??and take as prescribed.?? I have also given youa little bit of pain medication, be sure not to drive or operate heavy machinery while on this painmedication,??take sparingly??every 4 hours as needed for severe pain.?? This should??get better over time as we treat the infection,??if it does not resolve, you started to spike a fever,??please??come back to the emergency room for reevaluation. ??It was a pleasure taking care of you, I am glad that you are doing better. ?? Medication started: Cefdinir-300 mg twice a day for 3 days Metronidazole??500 mg every 8 hours??for 3 days Morphine??15 mg extended release??every 4 hours as needed??for pain Post Discharge Care Back to assisted living facility Home Health Face to Face ^[id number] Results Discharge Labs BLOOD COUNT & DIFF WBC 7.7 k/mm3 ()?? 10/31/2022 00:45 RBC 4.52 m/mm3 ()?? 10/31/2022 00:45 Hgb 12.9 Gm/dL ()?? 10/31/2022 00:45 Hct 41.9 % ()?? 10/31/2022 00:45 MCV 92.7 femtoliters ()?? 10/31/2022 00:45 MCH 28.5 pg ()?? 10/31/2022 00:45 MCHC 30.8 g/dL (Low)?? 10/31/2022 00:45 Platelet Count 195 k/mm3 ()?? 10/31/2022 00:45 RDW-SD 46.0 femtoliters ()?? 10/31/2022 00:45 MPV 10.0 femtoliters ()?? 10/31/2022 00:45 Nucleated RBC (Automated) 0.0 #/100 WBC'S ()?? 10/31/2022 00:45 Abs. NRBC 0.0 k/mm3 ()?? 10/31/2022 00:45 Abs. Neut 4.7 k/mm3 ()?? 10/29/2022 08:20 Abs. Lymph 1.6 k/mm3 ()?? 10/29/2022 08:20 Abs. Hudson 0.4 k/mm3 ()?? 10/29/2022 08:20 Abs. Eo 0.1 k/mm3 ()?? 10/29/2022 08:20 Abs. Baso 0.1 k/mm3 ()?? 10/29/2022 08:20 Neut % 68.2 % ()?? 10/29/2022 08:20 Lymph % 22.6 % ()?? 10/29/2022 08:20 Hudson % 6.1 % ()?? 10/29/2022 08:20 Eos % 1.9 % ()?? 10/29/2022 08:20 Baso % 0.9 % ()?? 10/29/2022 08:20 Imm Gran 0.3 % ()?? 10/29/2022 08:20 Abs. Imm Gran 0.0 k/mm3 ()?? 10/29/2022 08:20 ?? CHEM GENERAL Sodium 144 mmol/L ()?? 10/31/2022 00:47 Potassium 4.1 mmol/L ()?? 10/31/2022 00:47 Chloride 109 mmol/L (High)?? 10/31/2022 00:47 Bicarbonate Level 27 mmol/L ()?? 10/31/2022 00:47 Anion Gap 8 ()?? 10/31/2022 00:47 Glucose Level 138 mg/dL (High)?? 10/31/2022 00:47 Glucose, POC 138 mg/dL (High)?? 10/31/2022 03:51 BUN 20 mg/dL ()?? 10/31/2022 00:47 Creatinine-Blood 0.8 mg/dL ()?? 10/31/2022 00:47 Estimated GFR Creatinine 74 ML/MIN/1.73 M2 ()?? 10/31/2022 00:47 Calcium 9.0 mg/dL ()?? 10/28/2022 08:24 Protein, Total 6.4 Gm/dL ()?? 10/28/2022 08:24 Albumin 4.0 Gm/dL ()?? 10/28/2022 08:24 AG Ratio 1.7 ()?? 10/28/2022 08:24 Alkaline Phosphatase 98 units/L ()?? 10/28/2022 08:24 Lipase 27 units/L ()?? 10/29/2022 08:25 AST (SGOT) 22 units/L ()?? 10/28/2022 08:24 ALT (SGPT) 18 units/L ()?? 10/28/2022 08:24 Bilirubin, Total 0.2 mg/dL ()?? 10/28/2022 08:24 ? UA/URINALYSIS Appear/Color, Urine YELLOW ()?? 10/30/2022 08:00 Specific [place], Urine 1.019 ()?? 10/30/2022 08:00 pH, Urine 6.0 ()?? 10/30/2022 08:00 Albumin, Urine TRACE (Abnormal)?? 10/30/2022 08:00 Glucose, Urine NEGATIVE ()?? 10/30/2022 08:00 Ketones, Urine NEGATIVE ()?? 10/30/2022 08:00 Bilirubin, Urine NEGATIVE ()?? 10/30/2022 08:00 Hemoglobin, Urine NEGATIVE ()?? 10/30/2022 08:00 Nitrite, Urine NEGATIVE ()?? 10/30/2022 08:00 Leukocyte, Urine 2+ (Abnormal)?? 10/30/2022 08:00 Urobilinogen NORMAL mg/dL ()?? 10/30/2022 08:00 WBC's, Urine 6 /HPF (High)?? 10/30/2022 08:00 RBC's, Urine <1 /HPF ()?? 10/30/2022 08:00 Bacteria SLIGHT HPF (Abnormal)?? 10/30/2022 08:00 Squamous Epith 4 /HPF ()?? 10/30/2022 08:00 Mucus SLIGHT /LPF ()?? 10/30/2022 08:00 Hold Urine Culture Testing available 48 hours from time of collection. ()?? 10/30/2022 08:00 ? URINE OTHER Creatinine, Urine Random 127.9 mg/dL ()?? 10/30/2022 08:00 Sodium, Urine Random 88 mmol/L ()?? 10/30/2022 08:00 Urea Nitrogen, Urine Random 639.4 mg/dL ()?? 10/30/2022 08:00 Osmolality, Urine Random 529 mOsm/kg ()?? 10/30/2022 08:00 ?? VIROLOGY COVID-19 by RT-PCR NEGATIVE ()?? 10/28/2022 12:05 ? 35 minutes spent on discharge * Sara Dorantes RN: PERFORM Event Display: Patient Education/Instruction Authored Date: [id number] Inpatient Adult Discharge Instructions [address] [address] Name: SARA JOSHI : 1945 Visit: 10/29/2022 10:59:00 Current Date: 10/31/2022 09:58 Account: [id number] Inpatient Adult Discharge Instructions We would like [...] and their families. Surveys are administered by [employer] ?? If further treatment with your primary care physician or another doctor is recommended, it is important for you to keep the appointment. Call your primary care physician or return to the Emergency Department immediately if your condition worsens, fails to improve, or new symptoms develop. If you need to find a doctor, you can call [facility] [employer] for a referral at [phone] or toll free at [phone] or log in to [email or web address].. ?? You can view and manage your care through the patient portal or by using a health care rosalio of your choosing. [employer] is a website that allows you to securely view your medical information including your hospital discharge summary, office visit summaries, medications and follow-up visits. You can also request appointments, renew medications, and request access to your medical information using a health care rosalio of your choosing, or just ask a question. You can enroll at [email or web address] or register during your next office visit. You have been discharged from [facility], Patient Care Unit: S3. If you have any questions regarding these instructions after you leave, please call us and we will be happy to assist you. [facility] Your Care Team Attending Physician Petrona LORA, Nicholas Discharging Providers Stuart GALVAN, Lisa Holland Reason for Your Visit Coming from assisted living ([facility]). Was here last wk and was noted to have stones.Today with increased L flank pain. Your Diagnosis Flank pain General medical Hydronephrosis, left Renal colic Tests Performed Below is a partial list of the tests performed during your hospitalization. You may have had other tests and procedures not included in this list. Please discuss all test results with your provider. BUN CBC CBC w/ Differential Comprehensive Metabolic Panel COVID-19 (Novel Coronavirus), Rapid PCR Creatinine Electrolytes Glucose Level GLUCOSE POC Lipase UREA NITROGEN, URINE MG/DL Urinalysis w/hold for Urine Culture Urine Creatinine Urine Osmolality Urine Sodium Urine Urea Nitrogen?-- Results Pending -- CT Abdomen and Pelvis W/O Contrast You will be contacted within 72 hours with your results. Primary Care Provider Ashley Morales MD Advance Directive . Discharge Vitals Temperature: 97.8 DegF Height: 160 cm Pulse Rate: 90 bpm ?? Respiratory Rate: 18 br/min ?? Respiratory Rate: 18 br/min ?? Systolic Blood Pressure:??156 mm Hg??High ?? Systolic Blood Pressure:??156 mm Hg??High ?? Systolic Blood Pressure:??156 mm Hg??High ?? Diastolic Blood Pressure: 66 mm Hg ?? Diastolic Blood Pressure: 66 mm Hg ?? Diastolic Blood Pressure: 66 mm Hg ?? Oxygen Saturation:??93 %??Low ?? Studies Pending All tests and labs ordered during this hospital stay have been completed unless listed below. Please discuss all pending results with your provider listed above in these instructions. ?? Add On Lab Order Blood Culture Blood Culture #2 Urea Nitrogen Urine (Urine Urea Nitrogen) What to do next Instructions From Your Doctor You were seen and evaluated at [facility] for complaint of diverticulitis as well as nephrolithiasis/renal colic??(kidney stone).?? You are now stable and ready for discharge, be sure tofinish all of your antibiotics for the next 3 days??and take as prescribed.?? I have also given youa little bit of pain medication, be sure not to drive or operate heavy machinery while on this painmedication,??take sparingly??every 4 hours as needed for severe pain.?? This should??get better over time as we treat the infection,??if it does not resolve, you started to spike a fever,??please??come back to the emergency room for reevaluation. ??It was a pleasure taking care of you, I am glad that you are doing better. ?? Medication started: Cefdinir-300 mg twice a day for 3 days Metronidazole??500 mg every 8 hours??for 3 days Morphine??15 mg extended release??every 4 hours as needed??for pain Discharge Orders Activity:??as tolerated Code Status:??Full Condition:??Good Prognosis:??Good You Need to Schedule the Following Appointments Follow Up with??urology When:??Within 3-5 day: call to discuss follow up visit Why: Patient to follow-up with urology, please call this number to??attempt to set up a??visit??to discuss your stones. Where: ?? [phone] Follow Up with??Ashley Morales MD When:??Within 3-5 day: call to discuss follow up visit Why: Patient to follow-up with your primary care??to keep him updated on this hospitalization and your general health. Where: [address] [place] [address]- Discharge Medications SARA JOSHI :1945 Visit Date:10/29/2022 Medications: Please continue your medications until treatment is completed or stopped by your provider. Medications not listed below should be discontinued. Discuss any questions related to medications with your provider. What How Much When Instructions Next Dose New Cefdinir (cefdinir 300 mg oral capsule) 1 capsule Oral Every 12 hours Pickup at [facility] 3 9pm New Metronidazole (metroNIDAZOLE 500 mg oral tablet) 1 tab(s) Oral 3 times a day do not drink alcohol, may take with food to minimize abdominal discomfort ?? Pickup at [facility] 3 4pm 10/31 Changed Morphine (morphine 15 mg oral tablet, immediate release) 0.5 tab(s) Oral Every 4 hours as needed for for pain Duration: 5 Days Pickup at [facility] 3 as needed Unchanged Acetaminophen (Tylenol 325 mg oral capsule) 2 capsule Oral Every 4 hours as needed for as needed for fever as needed Unchanged Allopurinol (allopurinol 100 mg oral tablet) 1 tab(s) Oral Daily (LAST FILLED [facility] ) ?? 11/01 Unchanged Amlodipine (amLODIPine 5 mg oral tablet) 1 tab(s) Oral Daily (LAST FILLED [facility] ) ?? 11/01 Unchanged Aspirin (aspirin 81 mg oral delayed release tablet) 1 tab(s) Oral Daily 11/01 Unchanged Cholecalciferol (Vitamin D3 5000 intl units oral tablet) 1 tab(s) Oral Daily (LAST FILLED [facility] ) ?? 11/01 Unchanged Clopidogrel (Plavix 75 mg oral tablet) 1 tab(s) Oral Daily (LAST FILLED [facility] ) ?? 11/01 Unchanged Cyanocobalamin (Vitamin B-12 1000 mcg oral tablet) 1 tab(s) Oral Daily (LAST FILLED [facility] ) ?? 11/01 Unchanged Donepezil (donepezil 5 mg oral tablet) 1 tab(s) Oral Daily at Bedtime (LAST FILLED [facility] ) ?? 10/31 Unchanged Famotidine (famotidine 40 mg oral tablet) 1 tab(s) Oral Daily (LAST FILLED [facility] ) ?? 11/01 Unchanged Gabapentin (gabapentin 100 mg oral capsule) 1 capsule Oral Twice a day (LAST FILLED [facility] ) ?? 9pm Unchanged Ibuprofen (ibuprofen 400 mg oral tablet) 1 tab(s) Oral Every 4 hours as needed for for fever as needed Unchanged insulin degludec (Tresiba FlexTouch 200 units/ mL subcutaneous solution) 18 unit(s) Subcutaneous Injection Daily at Bedtime rotate injection sites (LAST FILLED 2020) ?? 910/31 Unchanged Levothyroxine (levothyroxine 0.1 mg oral tablet) 1 tab(s) Oral Daily (LAST FILLED [facility] ) ?? 11/01 Unchanged Lisinopril (lisinopril 40 mg oral tablet) 1 tab(s) Oral Daily (LAST FILLED [facility] ) ?? 11/01 Unchanged Loperamide (loperamide 2 mg oral capsule) 1 capsule Oral Daily as needed for Loose Stool do not exc not to exceed 8 capsules, or 16 mg, in 24 hours ?? as needed Unchanged Metoprolol (Metoprolol Succinate ER 25 mg oral tablet, extended release) 2 tab(s) Oral Daily (LAST FILLED [facility] ) ?? 11/01 Unchanged Miscellaneous Rx (BD PEN NEEDL MIS [id number] [place]) see instructions Unchanged Polyethylene Glycol 3350 (polyethylene glycol 3350 oral powder for reconstitution) 17 gram Oral Twice a day as needed for Constipation dissolve in water or juice before taking ?? as needed Unchanged Pyridoxine (Vitamin B6 100 mg oral tablet) 1 tab(s) Oral Daily (LAST FILLED [facility] ) ?? 11/01 Unchanged Rosuvastatin (rosuvastatin 20 mg oral capsule) 1 capsule Oral Daily 11/01 Unchanged Senna (Senna 8.6 mg oral tablet) 1 tab(s) Oral Daily at Bedtime (LAST FILLED [facility] ) ?? 910/31 Pharmacy Information [facility] 3: [address], [place] [id number] [phone] Test Results Below is a partial list of the most recent Laboratory test results done prior to this discharge. You may have had other tests and procedures not included in this list. Please discuss all test resultswith your provider. BUN (10/31/2022) ???BUN - 20 mg/dL CBC (10/31/2022) ???WBC - 7.7 k/mm3???RBC - 4.52 m/mm3???Hgb - 12.9 Gm/dL???Hct - 41.9 %???MCV - 92.7 femtoliters???MCH - 28.5 pg???MCHC - 30.8 g/dL???Platelet Count - 195 k/mm3???RDW-SD - 46.0 femtoliters???MPV - 10.0 femtoliters???Nucleated RBC (Automated) - 0.0 #/100 WBC'S???Abs. NRBC - 0.0 k/mm3 CBC w/ Differential (10/29/2022) ???WBC - 6.9 k/mm3???RBC - 4.82 m/mm3???Hgb - 14.0 Gm/dL???Hct - 45.4 %???MCV - 94.2 femtoliters???MCH - 29.0 pg???MCHC - 30.8 g/dL???Platelet Count - 217 k/mm3???RDW-SD - 48.0 femtoliters???MPV - 9.9 femtoliters???Nucleated RBC (Automated) - 0.0 #/100 WBC'S???Abs. NRBC - 0.0 k/mm3???Abs. Neut - 4.7 k/mm3???Abs. Lymph - 1.6 k/mm3???Abs. Hudson - 0.4 k/mm3???Abs. Eo - 0.1 k/mm3???Abs. Baso - 0.1 k/mm3???Neut % - 68.2 %???Lymph % - 22.6 %???[place]udson % - 6.1 %???Eos % - 1.9 %???Baso % - 0.9 %???Imm Gran- 0.3 %???Abs. Imm Gran - 0.0 k/mm3 Comprehensive Metabolic Panel (10/28/2022) ???Sodium - 144 mmol/L???Potassium - 3.6 mmol/L???Chloride - 108 mmol/L???Bicarbonate Level - 29 mmol/L???Anion Gap - 7???Glucose Level - 92 mg/dL???BUN - 20 mg/dL???Creatinine-Blood - 0.8 mg/dL???Estimated GFR Creatinine - 76 ML/MIN/1.73 M2???Calcium - 9.0 mg/dL???Protein, Total - 6.4 Gm/dL???Albumin - 4.0 Gm/dL???AG Ratio - 1.7???Alkaline Phosphatase - 98 units/L???AST (SGOT) - 22 units/L???ALT(SGPT) - 18 units/L???Bilirubin, Total - 0.2 mg/dL COVID-19 (Novel Coronavirus), Rapid PCR (10/28/2022) ???COVID-19 by RT-PCR - NEGATIVE Creatinine (10/31/2022) ???Creatinine-Blood - 0.8 mg/dL???Estimated GFR Creatinine - 74 ML/MIN/1.73 M2 Electrolytes (10/31/2022) ???Sodium - 144 mmol/L???Potassium - 4.1 mmol/L???Chloride - 109 mmol/L???Bicarbonate Level - 27 mmol/L???Anion Gap - 8 Glucose Level (10/31/2022) ???Glucose Level - 138 mg/dL GLUCOSE POC (10/31/2022) ???Glucose, POC - 138 mg/dL Lipase (10/29/2022) ???Lipase - 27 units/L UREA NITROGEN, URINE MG/DL (10/30/2022) ???Urea Nitrogen, Urine Random - 639.4 mg/dL Urinalysis w/hold for Urine Culture (10/30/2022) ???Appear/Color, Urine - YELLOW???Specific [place], Urine - 1.019???pH, Urine - 6.0???Albumin, Urine - TRACE???Glucose, Urine - NEGATIVE???Ketones, Urine - NEGATIVE???Bilirubin, Urine - NEGATIVE???Hemoglobin, Urine - NEGATIVE???Nitrite, Urine - NEGATIVE???Leukocyte, Urine - 2+???Urobilinogen - NORMAL? ?WBC's, Urine - 6 /HPF? ?RBC's, Urine - <1 /HPF? ?Bacteria - SLIGHT? ?Squamous Epith - 4 /HPF???Mucus - SLIGHT???Hold Urine Culture - Testing available 48 hours from time of collection. Urine Creatinine (10/30/2022) ???Creatinine, Urine Random - 127.9 mg/dL Urine Osmolality (10/30/2022) ???Osmolality, Urine Random - 529 mOsm/kg Urine Sodium (10/30/2022) ???Sodium, Urine Random - 88 mmol/L Allergies (NKA means No Known Allergies) Cefuroxime [...] Educational Leaflet Providered with your Discharge Instructions. Constipation (Adult)?? Discharge Instructions for Diverticulitis?? Valuables and Belongings I fully understand and agree that [facility] accepts no responsibility for all my personal [...] Review of Valuable and Belonging List: With patient Date for Pt to Sign Valuables/Belongings: 10/31/22 07:19:00 ?? Other Discharge Information ? Case Management Discharge Plan?? Discharge Plan?? Discharge Level of Care at Discharge: Home/[facility]oster Care ?? Pulmonary Rehab Status?? Pulmonary Rehab Discharge Status?? Respiratory Rate: 18 br/min Respiratory Rate: 18 br/min ? Common Emergency [...] are strongly encouraged to quit. Please call [facility] [employer] at [phone] or [phone] ([phone]) or log in to [email or web address] for referrals to smoking cessation programs. ?? 799 Suicide & Crisis Lifeline is available 25/12 if you or someone you know needs to find a reason to keep living. By calling 806 you'll be connected to a skilled, trained counselor at a crisis center in your area. INPATIENT DISCHARGE INSTRUCTIONS SIGNATURE PAGE SARA JOSHI Location:[facility] Registration Date and Time:10/29/2022 10:59 EDT Primary Care Physician: Ashley Morales MD, Attending Physician: Petrona LORA, Nicholas, I SARA JOSHI, have received the above patient education materials/instructions and have verbalized understanding. If ambulance or transport services are being used I further acknowledge being given a choice of service. ?? If you need to contact me, please call me at this number: . Patient/Seismology Technical Officer Name: Patient/Seismology Technical Officer Signature: Relationship to Patient: Witness Name/Signature: Date: * Sara Dorantes RN: PERFORM Event Display: Patient Education Leaflets Authored Date: [id number] Constipation (Adult) ?? [id number] Constipation (Adult) Constipation means that you have bowel movements that are less frequent than usual. Stools often become very hard and difficult to pass. Constipation is very common. At some point in life, it affects almost everyone. Since everyone's bowel habits are different, what is constipation to one person may not be to another. Your healthcare provider may do tests to diagnose constipation. It depends on what??they??find when evaluating you. Symptoms of constipation include: ??? Abdominal pain ??? Bloating ??? Vomiting ??? Painful bowel movements ??? Itching, swelling, bleeding, or pain around the anus Causes Constipation can have many causes. These include: ??? Diet low in fiber ??? Too much dairy ??? Not drinking enough liquids ??? Lack of exercise or physical activity (especially true for older adults)??? Changes in lifestyle or daily routine, including , aging, work, and travel ??? Frequent use or misuse of laxatives ??? Ignoring the urge to have a bowel movement or delaying it until later ??? Medicines, such as certain prescription pain medicines, iron supplements, antacids, certain antidepressants, and calcium supplements ??? Diseases like irritable bowel syndrome, bowel obstructions, stroke, diabetes, thyroid disease, Parkinson disease, hemorrhoids, and colon cancer ?? Complications Possible complications of constipation can include: ??? Hemorrhoids ??? Rectal bleeding from hemorrhoids or anal fissures??(skin tears) ??? Hernias ??? Chronic constipation ??? Fecal impaction, a severe form of constipation in which a large amount of hard stool is in your rectum that you can't pass??? Bowel obstruction or perforation ?? Home care All treatment should be done after talking with your healthcare provider. This is especially true if you have another medical problem, are taking prescription medicines, or are an older adult. Treatment most often involves lifestyle changes. You may also need medicines. Your healthcare provider will tell you which will work best for you. Follow the advice below to help avoid this problem in the future. ?? Lifestyle changes These lifestyle changes can help prevent constipation: ??? Diet. Eat a high- fiber diet, with fresh fruit and vegetables, and reduce dairy intake, meats, and processed foods ??? Fluids. It's importantto get enough fluids each day. Drink plenty of water when you eat more fiber. If you are on diet that limits the amount of fluid you can have, talk about this with your healthcare provider. ??? Regular exercise. Check with your healthcare provider first. ?? Medicines Take any medicines as directed. Some laxatives are safe to use only every now and then. Others can be taken on a regular basis. While laxatives don't cause bowel dependence, they are treating the symptoms. So your constipation may return if you don't make other changes. Talk with your healthcare provider or pharmacist if you have questions. Prescription pain medicines can cause constipation. If you are taking this kind of medicine, ask your healthcare provider if you should also take a stool softener. Medicines you may take to treat constipation include: ??? Fiber supplements ??? Stool softeners ???Laxatives ??? Enemas ??? Rectal suppositories ?? Follow-up care Follow up with your healthcare provider if symptoms don't get better in the next few days. You may need to have more tests or see a specialist. ?? Call 911 Call 911 if any of these occur: ??? Trouble breathing ??? Stiff, rigid abdomen that is severely painful to touch ??? Large amount of blood in the stool ??? Confusion ??? Fainting or loss of consciousness ??? Rapid heart rate ??? Chest pain ?? When to seek medical advice Call your healthcare provider right away if any of these occur: ??? Fever of 100.4??F (38??C) or higher, or as directed by your healthcare provider ??? Failure to resume normal bowel movements ??? Pain in your abdomen or back gets worse ??? Nausea or vomiting ??? Swelling in your abdomen ??? Small amount of blood in the stool ??? Black, tarry stool ??? Involuntary weight loss ??? Weakness ?? Last Reviewed Date: 2021 ?? [employer]. All rights reserved. This information is not intended as a substitute for professional medical care. Always follow your healthcare professional's instructions. ?? * Stuart GALVAN, Lisa Holland: PERFORM Event Display: Patient Education Leaflets Authored Date: [id number] Discharge Instructions for Diverticulitis ?? 56110 Discharge Instructions for Diverticulitis You have been diagnosed with diverticulitis. This is a condition??in which??small pouches form in your colon (large intestine) and become inflamed or infected. Follow the guidelines below for home care. As you recover Tips for recovery include: ??? Eat a low-fiber diet at first while you recover. Your healthcare provider may??advise a liquid diet.??This gives your bowel a chance to rest so that it can recover. ???Include these foods: flake cereal, mashed potatoes, pancakes, waffles, pasta, white bread, rice, applesauce, bananas, eggs, fish, poultry, tofu, and well-cooked vegetables. ??? Take your medicines??as directed. Don't stop taking the medicines, even if you feel better. ??? Monitor your temperature and report any rise in temperature to your healthcare provider. ??? Take any prescribed antibiotics exactly as directed. Don't miss any and keep taking them even if you feel better.? Drink 6 to 8 glasses of water every day, unless told otherwise. ??? Use a heating pad or hot water bottle to reduce abdominal cramping or pain. ?? Preventing diverticulitis in the future Tips for prevention include: ??? Eat a high-fiber diet. Fiber adds bulk to the stool so that it passes through the large intestine more easily. ??? Keep drinking 6 to 8 glasses of water every day, unless told otherwise. ??? Start an exercise program. Ask your healthcare provider how to get started.You can benefit from simple activities such as walking or gardening. ??? Treat diarrhea with a bland diet. Start with liquids only,??then slowly add fiber over time. ??? Watch for changes in your bowel movements (constipation to diarrhea). ??? Prevent constipation with fiber and add a stool softener if needed.? Get plenty of rest and sleep. ??? If possible, don't take nonsteroidal anti-inflam matory drugs (NSAIDs) such as ibuprofen. They increase the risk of diverticulitis. ?? Follow-up care Make a follow-up appointment, or as advised. You may need a colonoscopy or other imaging test of your colon. ?? When to call your healthcare provider Call your healthcare provider right away if you have any of these: ??? Fever of 100.4??F (38.0??C) or higher, or as advised by your provider ??? Chills ??? Severe cramps in??your belly, most often the lower left side ??? Soreness in??your belly, most often the lower left side ??? Nausea and vomiting ??? Bleeding from your rectum ?? Last Reviewed Date: 2021 ?? 2421-5806 [employer]. All rights reserved. This information is not intended as a substitute for professional medical care. Always follow your healthcare professional's instructions. ?? CT Abdomen and Pelvis WO contrast * [employer] , CIS S: TRANSCRICORNELIUS Calero MD, Jason W: VERIFY Javier LORA, Ellie: SIGN Event Display: Result: Authored Date: [id number] CT Abdomen and Pelvis W/O Contrast Reason: Left-sided flank pain. Prior history of stone in the left ureter TECHNIQUE: Spiral CT through the abdomen and pelvis without IV contrast formatted in 3 planes. Thisstudy was performed without oral contrast. Weight- based protocol using automatic tube modulation was used to optimize exposure parameters. CTDIvol Body: 3.90 mGy, DLP Body: 190 mGy*cm. COMPARISON: 10/18/2022 FINDINGS: Tour Actor View Findings, Lines and Tubes: Partially visualized dual-lead left subclavian pacemaker Visualized Chest: Lung bases are clear. No pleural effusion. Visualized Diaphragm: Normal. Liver: Normal. Gallbladder: No CT evidence of gallbladder pathology. Bile ducts: No biliary ductal dilation. Spleen: Normal. Pancreas: Normal. Adrenal glands: Unchanged, 1.3 cm nodule in the left adrenal gland, consistent with adrenal adenoma. No lesion in the right adrenal gland. Kidneys and ureters: Similar, multiple small nonobstructing calculi in both the kidneys. Unchanged position 2 mm calcification in the region of the left ureter (201, 68). Similar, mild fullness in the left proximal collecting system Bladder: Normal. Reproductive organs: Unremarkable. Stomach, small bowel, and large bowel: Large stool burden in the sigmoid colon, causing dilation measuring up to 9 cm, slightly worse than prior examination. Multiple scattered diverticula throughoutthe colon. There is mild stranding adjacent to diverticula in the distal descending colon, series 2on image 53. Appendix: Not seen, but no evidence of appendicitis. Peritoneum and retroperitoneum: No ascites or pneumoperitoneum. No omental or mesenteric lesions. Lymph nodes: No enlarged lymph nodes. Blood vessels: Severe atherosclerotic vascular calcification. Similar, infrarenal aortic aneurysm measuring 3.4 cm in AP dimension. Abdominal and pelvic wall: Unremarkable. Bones: Multilevel degenerative changes without acute findings. IMPRESSION: 1. Essentially similar, 2 mm calculus in the proximal to mid left ureter with mild fullness in the proximal collecting system. Multiple additional bilateral nonobstructing renal calculi. 2. Subtle stranding adjacent to a diverticula in the distal descending colon suggests early diverticulitis. 3. Severe stool burden in the sigmoid colon causing mild dilation measuring up to 9 cm, slightly increased from prior examination. 4. A 3.4 cm infrarenal aortic aneurysm. Recommend follow-up ultrasound or CTA in 3 years per simplified ACR and SVS guidelines. Reference: Cali CAMARENA et al. J Vasc Surg 2018; 67:2-77. Society for Vascular Surgery 2018 practice guidelines on the care of patients with an abdominal aortic aneurysm. I have personally reviewed the images and I agree with this report. WSN: [id number] Ordering Physician: Perry Nielson Dictated By: Ellie Herrera MD Dictated Date/Time: 10/28/22 9:58 am Reviewed By: Jason Calero MD Signed By: Jason Calero MD Signed Date/Time: 10/28/22 10:03 am Transcribed By: FERMIN Transcribed Date/Time: 10/28/22 9:30 am Patient Care team information Care Team Personnel Name: Ashley Morales MD Position: [facility] Physician (General Medicine) Member Role: PCP Address: Address: [address] [place] [id number] Name: Svitlana Mcgee RN Position: [facility] RN Member Role: Primary Care Nurse Name: Soraida Handy RN Position: [facility] RN Member Role: Primary Care Nurse Name: Thom Kuo RN Position: [facility] RN Member Role: Primary Care Nurse Name: Ileana Khan RN Position: [facility] RN Member Role: Primary Care Nurse Name: Becky Quezada RN Position: [facility] SN RN Member Role: Primary Care Nurse Name: Sara Dorantes RN Position: [facility] RN Member Role: Primary Care Nurse Name: Chelita Bailey LPN Position: [facility] RN Member Role: Primary Care Nurse Name: Frank LANDAVERDE Attending Position: [facility] ED Medicine MD Name: Antwan Alvarenga RN Position: [facility] ED RN W/OE and Tasks Member Role: Patient Care Provider Name: Amira Moctezuma Position: [facility] ED TA [facility] Member Role: [employer] Operator Name: Perry Nielson MD Position: [facility] Resident Member Role: ED Resident Address: Address: [address] [place] [address] [place], [place] [id number]
--- OUTSIDE RECORDS SUMMARY | 2023-07-20 23:04 | XMS_ITS | Continuity of Care Document ---
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 Name Role Phone Ashley Morales MD Primary Care Physician Encounter [facility] [place] Date(s): 11/16/22 - 11/17/[address] [id number]- Encounter Diagnosis Abdominal pain, LLQ(Final) - 11/17/22 Discharge Disposition: A-D/C Home Attending Physician: Aracelis [facility] Admitting Physician: Ayad Everett MD Referring Physician: Not on Staff, Referring [...] vac 08/12/20 Recorded SARS-CoV-2 (COVID-19) mRNA [id number] [facility] 07/22/20 Recorded tetanus/diphtheria/pertussis, acel(Tdap) 02/10/15 Recorded Medications allopurinol 100 mg oral tablet 100 mg, 1, tablet, By Mouth, Daily, (LAST FILLED [facility] 10/13/22), Refills 0, Maintenance, 09/18/22 16:24:00 EDT, Partial fill upon patient request if the prescription is for a schedule II opioid drug. Start Date: 09/18/22 Status: Ordered aspirin 81 mg oral delayed release tablet 81 mg, 1, tablet, By Mouth, Daily, # 30 tablet, Refills 0, Tot. Refills 0, Maintenance, 02/24/22 16:24:00 EDT, Route to Pharmacy Electronically, [facility], Partial fill upon patient request if the prescription is for a schedule II opioi... Start Date: 02/24/22 Status: Ordered BD PEN NEEDL MIS [id number] [place] BD PEN NEEDL MIS [id number] [place], 0 Refills, Maintenance, 09/18/22 15:29:00 EDT Start Date: 09/18/22 Status: Ordered docusate-senna 50 mg-8.6 mg oral capsule 2 capsule, By Mouth, 2 times a day, # 60 capsule, 0 Refills, Acute 12/15/22 12:29:00 EDT, 11/17/22 12:28:00 EDT, Capsule, [facility], Partial fill upon patient request if the prescription is for a schedule II opioid drug., 2 capsule By Mouth... Start Date: 11/17/22 Stop Date: 12/15/22 Status: Ordered donepezil 5 mg oral tablet 5 mg, 1, tablet, By Mouth, Daily at bedtime, (LAST FILLED [facility] 10/12/22), Refills 0,Maintenance, 11/08/19 12:35:00 EDT Start Date: 11/08/19 Status: Ordered famotidine 40 mg oral tablet 1 tablet = 40 mg, By Mouth, Daily, (LAST FILLED [facility] 10/04/22) Start Date: 09/18/22 Status: Ordered gabapentin 100 mg oral capsule 100 mg, 1, capsule, By Mouth, 2 times a day, (LAST FILLED [facility] 10/02/22), Refills 0, Maintenance, 11/08/19 12:31:00 EDT Start Date: 11/08/19 Status: Ordered levothyroxine 0.1 mg oral tablet 1 tablet = 100 mcg, By Mouth, Daily, (LAST FILLED [facility] 10/03/22), Maintenance, 10/28/22 13:37:00 EDT, Tablet, Partial fill upon patient request if the prescription is for a schedule II opioid drug. Start Date: 10/28/22 Status: Ordered lisinopril 40 mg oral tablet 1 tablet = 40 mg, By Mouth, Daily, (LAST FILLED [facility] 09/29/22), 0 Refills, Maintenance, 12/06/21 9:32:00 EDT, Tablet, Partial fill upon patient request if the prescription is for a schedule II opioid drug. Start Date: 12/06/21 Status: Ordered Metoprolol Succinate ER 25 mg oral tablet, extended release 2 tablet = 50 mg, By Mouth, Daily, (LAST FILLED [facility] 10/12/22) Start Date: 12/06/21 Status: Ordered morphine 15 mg oral tablet, immediate release 0.5 tablet = 7.5 mg, By Mouth, Every 4 hours, PRN for pain, # 15 tablet, 0 Refills, Maintenance, 10/31/22 8:05:00 EDT, Tablet, [facility] 3, Partial fill upon patient request if the prescription is for a schedule II opioid drug., 160, cm,... Start Date: 10/31/22 Stop Date: 11/05/22 Status: Ordered Plavix 75 mg oral tablet 75 mg, 1, tablet, By Mouth, Daily, (LAST FILLED [facility] 10/12/22), Refills 0, Maintenance, 11/08/19 12:35:00 EDT [...] 1 Refills, Maintenance, 01/27/22 10:57:00 EDT, Capsule, [facility], Partial fill upon patient request if the prescription is for a schedule II opioid drug., 160, cm, 12/07/21 7:04:00 EDT,... Start Date: 01/27/22 Status: Ordered Senna 8.6 mg oral tablet 8.6 mg, 1, tablet, By Mouth, Daily at bedtime, (LAST FILLED [facility] 10/25/22), Refills 0, Maintenance, 09/18/22 16:26:00 [...] 0 Refills, Maintenance, 10/18/22 4:27:00 EDT, Capsule, [facility], Partial fill upon patient request if the [...] 125 mcg, By Mouth, Daily, (LAST FILLED [facility] 09/29/22), 0 Refills, Maintenance, 01/26/22 23:18:00 [...] Exam Date Time Procedure Performing Provider Status 11/16/22 11:[address] Abdomen and Pelvi s W/O Contrast Mari Calero; Auth (Verified) Notes: (CT Abdomen and Pelvis W/O Contrast) Reason For Exam: Flank pain, kidney stone suspected;Other: RESULT: CT Abdomen and Pelvis W/O Contrast CT Abdomen and Pelvis W/O Contrast Hx of Present Illness: Pt from home w L flank pain x2 weeks, intermittenly. Denies urinary symptoms. Does have hx of kidney stones, never had stenting; Reason: Other:; Flank pain, kidney stone suspected; Clinical Question(s): Calculus; Left Side flank TECHNIQUE: Spiral CT through the abdomen and pelvis without IV contrast formatted in 3 planes. Thisstudy was performed without oral contrast. Weight- based protocol using automatic tube modulation was used to optimize exposure parameters. CTDIvol Body: 3.70 mGy, DLP Body: 153 mGy*cm. COMPARISON: FINDINGS: [employer] Supervisor View Findings, Lines and Tubes: None. Diaphragm: Normal. Liver: The visualized liver is unremarkable. Gallbladder: No CT evidence of gallbladder pathology. Bile ducts: No biliary ductal dilation. Spleen: Normal. Pancreas: Limited visualized pancreas is unremarkable. Adrenal glands: Unremarkable. Kidneys and ureters: No hydronephrosis. There is scarring at the lower pole of the right kidney. There are punctate bilateral nonobstructing calculi bilaterally, more numerous on the left. No renal lesions are identified on noncontrast imaging. Bladder: Unremarkable for technique. Reproductive organs: Unremarkable. Stomach, small bowel, and large bowel: Evaluation of the gastrointestinal system is limited withoutenteric contrast. There is no evidence for a bowel obstruction. There is retention of stool throughout the large bowel consistent with constipation with largest amount of stool seen in the mid to distal sigmoid colon. No evidence for diverticulitis or colitis Appendix: Normal. Peritoneum and retroperitoneum: No ascites or pneumoperitoneum. No omental or mesenteric lesions. Lymph nodes: No enlarged lymph nodes. Blood vessels: Mild vascular calcifications. 3.4 cm proximal abdominal aortic aneurysm. Abdominal and pelvic wall: Unremarkable. Bones: No acute abnormality. IMPRESSION: No hydronephrosis. Bilateral nonobstructing nephrolithiasis. Constipation with sigmoid fecal impaction. No diverticulitis or colitis. 3.4 cm proximal abdominal aortic aneurysm. WSN: [id number] Ordering Physician: Minda Shipman Dictated By: Antwan Yang MD Dictated Date/Time: 11/16/22 11:34 p Reviewed By: Antwan Yang MD Signed By: Antwan Yang MD Signed Date/Time: 11/16/22 11:34 pm Transcribed By: FERMIN Transcribed Date/Time: 11/16/22 11:29 pm Vital Signs Most recent to oldest [Reference Range]: 1 2 3 Height 160 cm (11/17/22 2:33 PM) 160 cm (11/17/22 12:36 PM) 160 cm (11/17/22 10:24 AM) Weight 62 kg (11/17/22 12:36 PM) 62 kg (11/17/22 10:24 AM) 62 kg (11/17/22 6:43 AM) Oxygen Saturation [94-100 %] 96 % (11/17/22 2:33 PM) 96 % (11/17/22 12:36 PM) 99 % (11/17/22 10:24 AM) Pulse Rate [55-90 bpm] 60 bpm (11/17/22 2:33 PM) 60 bpm (11/17/22 12:36 PM) 60 bpm (11/17/22 10:24 AM) Body Mass Index [18.5-24.99 kg/m2] 24.22 kg/m2 (11/17/22 12:36 PM) 24.22 kg/m2 (11/17/22 10:24 AM) 24.22 kg/m2 (11/17/22 6:43 AM) Blood Pressure [90-138/55-84 mm Hg] 176/64mm Hg *H* (11/17/22 2:33 PM) 159/62mm Hg *H* (11/17/22 12:36 PM) 159/69mm Hg *H* (11/17/22 10:24 AM) Respiratory Rate [16-30 br/min] 18 br/min (11/17/22 2:33 PM) 16 br/min (11/17/22 12:36 PM) 16 br/min (11/17/22 10:24 AM) Temperature [96.8-100.4 DegF] 98.1 DegF (11/17/22 2:33 PM) 97.9 DegF (11/17/22 6:43 AM) 97.7 DegF (11/17/22 1:08 AM) Mode of Delivery (Oxygen) Room air (11/17/22 2:33 PM) Room air (11/17/22 12:36 PM) Room air (11/17/22 10:24 AM) Blood pressure sites Arm, right (11/17/22 2:33 PM) Arm, right (11/17/22 10:24 AM) Arm, right (11/17/22 6:43 AM) Temperature Route Oral (11/17/22 2:33 PM) Oral (11/17/22 6:43 AM) Oral (11/17/22 1:08 AM) Dry Weight 62 kg (11/17/22 12:36 PM) 62 kg (11/17/22 10:24 AM) 62 kg (11/17/22 6:43 AM) Weight Obtained Via Patient/family state d (11/16/22 7:09 PM) Dry Weight Obtained Via Patient/family s tated (11/16/22 7:09 PM) Social History Social History Type Response Tobacco Use: 4 or less cigar ettes(less than 1/4 pack)/day in last 30 days. Sex Admission evaluation note * Parisa Hernandez MD: MODIFY, MODIFY, MODIFY, MODIFY, PERFORM Event Display: Admission Note Authored Date: Patient: ??SARA JOSHI ? Age:??77 Years?Sex:??Female?:??1945?? Chief Complaint/Reason for Consultation Abdominal Pain History of Present Illness 77-year-old female with history of nephrolithiasis and hydronephrosis, hypothyroidism, CAD, type 2 diabetes, gout, aortic aneurysm, sick sinus syndrome status post pacemaker, presents again due to acute on chronic abdominal pain. ?? Patient was recently admitted from 11/09-11/10 prior to that from 11/03-11/04 due to flank pain, was managed for constipation/stercoral colitis with bowel regimen and enemas as well as conservatively for hydronephrosis of left kidney. ?? HPI: Patient tells me that she has been having left lower abdominal pain since yesterday. She denies emesis, nausea, chills, chest pain, dysuria, hematuria or constipation. She actually tells me she has been having daily bowel movements up until Sunday. She does recall she was on laxatives however unclear when she last had them. ?? Per ED documentation daughter is unclear how religiously her bowel regimen has been followed since discharge. ?? At the emergency department patient presented with a blood pressure of 143/89, heart rate of 60,afebrile. CBC was completely unremarkable, CMP also unremarkable, glucose 195, lactate 0.9.?? CT abdomen and pelvis without contrast obtained which showed no evidence of hydronephrosis, bilateral nonobstructing nephrolithiasis, constipation with sigmoid fecal impaction.?? Also with proximal abdominal aortic aneurysm measuring 3.4 cm. Review of Systems Denies emesis, chills, chest pain, dysuria, hematuria, constipation All other review of systems negative except as stated in HPI Objective Measurements?? Height: 160 cm (11/16/22) Weight: 62 kg (11/16/22) Dry Weight: 62 kg (11/16/22) Body Mass Index: 24.22 kg/m2 (11/16/22) ? Vital Signs?? Temperature: 97.9 DegF (11/16/22 21:57:00) Temperature Route: Oral (11/16/22 21:57:00) Pulse Rate: 60 bpm (11/16/22 21:57:00) Respiratory Rate: 16 br/min (11/16/22 19:09:00) Systolic Blood Pressure:??148 mm Hg??High (11/16/22 21:57:00) Diastolic Blood Pressure: 76 mm Hg (11/16/22 21:57:00) Blood pressure sites: Arm, left (11/16/22 19:09:00) Mean Arterial Pressure: 100 mm Hg (11/16/22 21:57:00) Pulse Pressure: 72 mm Hg (11/16/22 21:57:00) Oxygen Saturation: 98 % (11/16/22 21:57:00) Mode of Delivery (Oxygen): Room air (11/16/22 21:57:00) Early Warning Score: 2 (11/17/22 00:42:41) ? Physical Exam General: alert, under no acute distress HENT: Oropharynx without exudates Respiratory: CTA, no wheezing or respiratory distress Cardiovascular: RRR, no murmurs or gallops. GI: Abdomen non-distended, tender to palpation along LLQ Neuro: alert to self, know years, off by month, knows town and that she is in a hospital, alert to situation Skin: no lesions or rashes Lymphatic: no edema, no lymphadenopathy Musculoskeletal: no deformities?? Psych: normal affect, not responding to internal stimuli? Assessment/Plan 77-year-old female with history of nephrolithiasis and hydronephrosis, hypothyroidism, CAD, type 2 diabetes, gout, aortic aneurysm, sick sinus syndrome status post pacemaker, presents again due to acute on chronic abdominal pain, found to have sigmoid fecal impaction and bilateral nonobstructing nep hrolithiasis. ?? Fecal impaction -Patient was recently admitted from 11/09-11/10 prior to that from 11/03-11/04 due to flank pain, was managed for constipation/stercoral colitis with bowel regimen and enemas as well as conservatively for hydronephrosis of left kidney. -On this admission, CT abdomen pelvis showed sigmoid fecal impaction, has had 2 recent??admissions this month for similar??issues related to severe constipation -Per discharge summary miralax BID and senna daily were to be part of her outpatient regimen, unclear if it was continued at living facility. ?? Plan -Scheduled Miralax BID and docusate/senna daily -Glycerin suppository daily -Start IV fluids? Bilateral Nonobstructing Calculi Patient has a history of nephrolithiasis, more recently with hydronephrosis. Now with worsening abdominal pain, on LLQ. ? Plan -Continue ketorolac given Cr stable -Bladder scan if no void x2, straight cath > 350cc -One time dose of morphine as patient is still uncomfortable -IV fluids ?? Chronic Stable Medical Problems CAD: Continue aspirin, Plavix, statin. She has been on Plavix chronically w/o documentation of recent CV event/procedure and has not been discontinued. Consider DC at discharge. Cognitive impairment:??Continue donepezil once discharged Gout: Continue allopurinol HTN:??Continue metoprolol with hold parameters, hold lisinopril to avoid RENAE Hypothyroidism: Continue levothyroxine SSS:??s/p pacemaker Type 2 diabetes mellitus: On Tresiba??at home, 18 units.??Continue POC??and SSI while inpatient. ? Quality Measures: Diet: Diabetic?? Code: Full, confirmed on admission DVT PPx: Lovenox SC per VTE guidelines ?? Discussed with attending Dr. Elpidio Hernandez MD PGY-3 Histories Allergies Allergies ?(Active and Proposed Allergies [...] sinus syndrome) Type 2 diabetes mellitus ? Social History Alcohol Details:??Use: Never. Substance Abuse Details:??Use: Never. Tobacco Details:??Use: 4 or less cigarettes(less than 1/4 pack)/day in last 30 days. Electronic Cigarette/Vaping Details:??Electronic Cigarette Use: Never. ? Medications Home Medications Acetaminophen (Tylenol 325 mg oral capsule)?2?capsule?650?Milligram?By Mouth?Every 4 hours?as needed?as needed for fever Allopurinol (allopurinol 100 mg oral tablet)?100?Milligram?1?tablet?By Mouth?Daily?(LAST FILLED [facility] 10/13/22) Aspirin (aspirin 81 mg oral delayed release tablet)?81?Milligram?1?tablet?By Mouth?Daily Cholecalciferol (Vitamin D3 5000 intl units oral tablet)?1?tab(s)?125?Microgram?By Mouth?Daily?(LAST FILLED [facility] 09/29/22) Clopidogrel (Plavix 75 mg oral tablet)?75?Milligram?1?tablet?By Mouth?Daily?(LAST FILLED [facility] 10/12/22) Cyanocobalamin (Vitamin B-12 1000 mcg oral tablet)?1,000?Microgram?1?tablet?By Mouth?Daily?(LAST FILLED [facility] 10/06/22) Donepezil (donepezil 5 mg oral tablet)?5?Milligram?1?tablet?By Mouth?Daily at bedtime?(LAST FILLED [facility] 10/12/22) Famotidine (famotidine 40 mg oral tablet)?1?tab(s)?40?Milligram?By Mouth?Daily?(LAST FILLED [facility] 10/04/22) Gabapentin (gabapentin 100 mg oral capsule)?100?Milligram?1?capsule?By Mouth?2 times a day?(LAST FILLED [facility] 10/02/22) insulin degludec (Tresiba FlexTouch 100 units/mL subcutaneous solution)?18?unit(s)?Subcutaneous Infusion?Daily at bedtime Levothyroxine (levothyroxine 0.1 mg oral tablet)?1?tab(s)?100?Microgram?By Mouth?Daily?(LAST FILLED [facility] 10/03/22) Lisinopril (lisinopril 40 mg oral tablet)?1?tab(s)?40?Milligram?By Mouth?Daily?(LAST FILLED [facility] 09/29/22) Metoprolol (Metoprolol Succinate ER 25 mg oral tablet, extended release)?2?tab(s)?50?Milligram?By Mouth?Daily?(LAST FILLED [facility] 10/12/22) Morphine (morphine 15 mg oral tablet, immediate release)?0.5?tab(s)?7.5?Milligram?ByMouth?Every 4 hours?as needed?for pain?for 5?Days Polyethylene Glycol 3350 (polyethylene glycol 3350 oral powder for reconstitution)?17?gram?By Mouth?2 times a day?as needed?Constipation?dissolve in water or juice before taking Pyridoxine (Vitamin B6 100 mg oral tablet)?1?tab(s)?100?Milligram?By Mouth?Daily?(LAST FILLED [facility] 10/25/22) Rosuvastatin (rosuvastatin 20 mg oral capsule)?1?capsule?20?Milligram?By Mouth?Daily Senna (Senna 8.6 mg oral tablet)?8.6?Milligram?1?tab(s)?By Mouth?Daily at bedtime?(LAST FILLED [facility] 10/25/22) ? Inpatient Medications Medications (26) Active SCHEDULED: (17) Allopurinol 100 mg Tablet (allopurinol 100 mg oral tablet) ??100 mg, By Mouth, Daily Aspirin 81 mg EC Tablet (aspirin 81 mg oral delayed release tablet) ??81 mg, By Mouth, Daily Clopidogrel 75 mg Tablet (Plavix 75 mg oral tablet) ??75 mg, By Mouth, Daily Enoxaparin 40 mg Inj (Enoxaparin Inj) ??40 mg 0.4 mL, Subcutaneous Injection, Daily at bedtime Famotidine 20 mg Tablet (famotidine 20 mg oral tablet) ??40 mg, By Mouth, Daily Gabapentin 100 mg Capsule (gabapentin 100 mg oral capsule) ??100 mg, By Mouth, 2 times a day Glycerin Pediatric Suppository (Glycerin Child Supp) ??1 supp, Rectally, Daily Insulin Lispro 100 units/mL Inj (3mL) (Insulin LISPRO Sliding Scale) ??2-10 units, Subcutaneous Injection, 3 times a day before meals Ketorolac 30 mg/mL Inj (Toradol Inj) ??15 mg 0.5 mL, IV Push, Every 6 hours Levothyroxine 100 mcg Tablet (levothyroxine 0.1 mg oral tablet) ??100 mcg, By Mouth, Daily Metoprolol 50 mg XL Tablet (Metoprolol Succinate ER 50 mg oral tablet, extended release) ??50 mg, By Mouth, Daily MorPHINE 2 mg Inj Syringe (MorPHINE Inj) ??1 mg, IV Push Slowly, Once NaCl 0.9% Flush 3ml (NaCL 0.9% Flush) ??3 mL, IV Push, Every 8 hours Polyethylene Glycol 17 Gm Powder (MiraLax Powder) ??17 Gm 1 pack/packet, By Mouth, Daily Psyllium Powder (Metamucil Powder) ??5.85 Gm 1 pack/packet, By Mouth, Daily Rosuvastatin 20 mg Tablet (rosuvastatin 20 mg oral tablet) ??20 mg, By Mouth, Daily Senna 8.6 mg / Docusate 50 mg tablet (Docusate/Senna Tablet) ??2 tablet, By Mouth, 2 times a day CONTINUOUS: (1) Lactated Ringers (1000 mL) Cont IV 1,000 mL (LR 1,000 mL) ??1,000 mL, IV Infusion, 75 mL/hr PRN: (8) Acetaminophen 325 mg Tablet (Tylenol 325 mg oral tablet) ??975 mg, By Mouth, Every 6 hours Al hydroxide/Mg hydroxide/simethicone 200 mg-200 mg-20 mg/5 mL Susp UD (Maalox Plus Liquid) ??15 mL, By Mouth, 4 times a day Enema Saline Laxative Adult 7 g-19 g (Fleet Enema) ??1 each, Rectally, Once Melatonin 3 mg Tablet (Melatonin Tablet) ??3 mg, By Mouth, Daily at bedtime NaCl 0.9% Flush 3ml (NaCL 0.9% Flush) [...] Recent Labs BLOOD COUNT & DIFF WBC 7.5 k/mm3 ()?? 11/16/2022 20:25 RBC 4.61 m/mm3 ()?? 11/16/2022 20:25 Hgb 13.4 Gm/dL ()?? 11/16/2022 20:25 Hct 43.1 % ()?? 11/16/2022 20:25 MCV 93.5 femtoliters ()?? 11/16/2022 20:25 MCH 29.1 pg ()?? 11/16/2022 20:25 MCHC 31.1 g/dL (Low)?? 11/16/2022 20:25 Platelet Count 227 k/mm3 ()?? 11/16/2022 20:25 RDW-SD 50.1 femtoliters (High)?? 11/16/2022 20:25 MPV 9.3 femtoliters (Low)?? 11/16/2022 20:25 Nucleated RBC (Automated) 0.0 #/100 WBC'S ()?? 11/16/2022 20:25 Abs. NRBC 0.0 k/mm3 ()?? 11/16/2022 20:25 Abs. Neut 4.6 k/mm3 ()?? 11/16/2022 20:25 Abs. Lymph 2.2 k/mm3 ()?? 11/16/2022 20:25 Abs. [place] 0.5 k/mm3 ()?? 11/16/2022 20:25 Abs. Eo 0.2 k/mm3 ()?? 11/16/2022 20:25 Abs. Baso 0.1 k/mm3 ()?? 11/16/2022 20:25 Neut % 61.2 % ()?? 11/16/2022 20:25 Lymph % 29.7 % ()?? 11/16/2022 20:25 [place] % 6.0 % ()?? 11/16/2022 20:25 Eos % 2.0 % ()?? 11/16/2022 20:25 Baso % 0.8 % ()?? 11/16/2022 20:25 Imm Gran 0.3 % ()?? 11/16/2022 20:25 Abs. Imm Gran 0.0 k/mm3 ()?? 11/16/2022 20:25 ?? CHEM GENERAL Sodium 142 mmol/L ()?? 11/16/2022 20:25 Potassium 4.1 mmol/L ()?? 11/16/2022 20:25 Chloride 104 mmol/L ()?? 11/16/2022 20:25 Bicarbonate Level 29 mmol/L ()?? 11/16/2022 20:25 Anion Gap 9 ()?? 11/16/2022 20:25 Glucose Level 195 mg/dL (High)?? 11/16/2022 20:25 BUN 17 mg/dL ()?? 11/16/2022 20:25 Creatinine-Blood 0.9 mg/dL ()?? 11/16/2022 20:25 Estimated GFR Creatinine 65 ML/MIN/1.73 M2 ()?? 11/16/2022 20:25 Calcium 9.4 mg/dL ()?? 11/16/2022 20:25 Protein, Total 6.5 Gm/dL ()?? 11/16/2022 20:25 Albumin 3.9 Gm/dL ()?? 11/16/2022 20:25 AG Ratio 1.5 ()?? 11/16/2022 20:25 Alkaline Phosphatase 94 units/L ()?? 11/16/2022 20:25 Lipase 30 units/L ()?? 11/16/2022 20:25 AST (SGOT) 16 units/L ()?? 11/16/2022 20:25 ALT (SGPT) 20 units/L ()?? 11/16/2022 20:25 Bilirubin, Total 0.2 mg/dL ()?? 11/16/2022 20:25 Lactate 0.9 mmol/L ()?? 11/16/2022 20:25 ?? UA/URINALYSIS Appear/Color, Urine YELLOW ()?? 11/16/2022 21:29 Specific [place], Urine 1.018 ()?? 11/16/2022 21:29 pH, Urine 5.5 ()?? 11/16/2022 21:29 Albumin, Urine NEGATIVE ()?? 11/16/2022 21:29 Glucose, Urine NEGATIVE ()?? 11/16/2022 21:29 Ketones, Urine NEGATIVE ()?? 11/16/2022 21:29 Bilirubin, Urine NEGATIVE ()?? 11/16/2022 21:29 Hemoglobin, Urine NEGATIVE ()?? 11/16/2022 21:29 Nitrite, Urine NEGATIVE ()?? 11/16/2022 21:29 Leukocyte, Urine TRACE (Abnormal)?? 11/16/2022 21:29 Urobilinogen NORMAL mg/dL ()?? 11/16/2022 21:29 WBC's, Urine 4 /HPF ()?? 11/16/2022 21:29 RBC's, Urine 2 /HPF ()?? 11/16/2022 21:29 Squamous Epith 1 /HPF ()?? 11/16/2022 21:29 Mucus SLIGHT /LPF ()?? 11/16/2022 21:29 Hold Urine Culture Testing available 48 hours from time of collection. ()?? 11/16/2022 21:29 ?? URINE OTHER Est Creatinine Clearance 41.91 mL/min ()?? 11/16/2022 21:34 ? CBC, CBC w/Diff?? CBC?? Differential?? WBC: 7.5 k/mm3 (20:25) Abs. Neut: 4.6 k/mm3 (20:25) RBC: 4.61 m/mm3 (20:25) Abs. Lymph: 2.2 k/mm3 (20:25) Hct: 43.1 % (20:25) Abs. [place]olo: 0.5 k/mm3 (20:25) RDW-SD:??50.1 femtoliters??High (20:25) Abs. Eo: 0.2 k/mm3 (20:25) Nucleated RBC (Automated): 0 #/100 WBC'S (20:25) Abs. Baso: 0.1 k/mm3 (20:25) Abs. NRBC: 0 k/mm3 (20:25) Neut %: 61.2 % (20:25) ?? Lymph %: 29.7 % (20:25) ?? [place] %: 6 % (20:25) ?? Eos %: 2 % (20:25) ?? Baso %: 0.8 % (20:25) ?? Imm Gran: 0.3 % (20:25) ?? Abs. Imm Gran: 0 k/mm3 (20:25) ? Coagulation Profile?? No qualifying data available. ?? Urinalysis Albumin, Urine: NEGATIVE (21:29) Appear/Color, Urine: YELLOW (21:29) Bilirubin, Urine: NEGATIVE (21:29) Est Creatinine Clearance: 41.91 mL/min (21:34) Glucose, Urine: NEGATIVE (21:29) Hemoglobin, Urine: NEGATIVE (21:29) Hold Urine Culture: Testing available 48 hours from time of collection. (21:29) Ketones, Urine: NEGATIVE (21:29) Leukocyte, Urine: TRACE Abnormal (21:29) Mucus: SLIGHT (21:29) Nitrite, Urine: NEGATIVE (21:29) pH, Urine: 5.5 (21:29) RBC's, Urine: 2 /HPF (21:29) Specific [place], Urine: 1.018 (21:29) Squamous Epith: 1 /HPF (21:29) Urobilinogen: NORMAL (21:29) WBC's, Urine: 4 /HPF (21:29) ? * Rizwana Magallanes MDha: PERFORM Event Display: Admission Note Authored Date: I have evaluated and examined the patient on 11/17. I have discussed the care and management with the resident and agree with findings, assessment and plan outlined below Note * Maria Del Rosario Hsu MDupama: PERFORM Event Display: Discharge/Transfer Note Hospital Authored Date: Patient: ??SARA JOSHI ? Age:??77 Years?Sex:??Female?:??1945?? Patient Information Discharge Location: [facility] Primary Care Physician: Ashley Morales MD Admit Date/Time: 11/16/22 18:53 Discharge Disposition Discharge Disposition: Assisted Living Facility Discharge Diagnosis Abdominal pain, LLQ (R10.32) Constipation (K59.00) HTN (hypertension) Hypothyroidism ?? _ Discharge Medications Acetaminophen (Tylenol 325 mg oral capsule)?2?capsule?650?Milligram?By Mouth?Every 4 hours?as needed?as needed for fever Allopurinol (allopurinol 100 mg oral tablet)?100?Milligram?1?tablet?By Mouth?Daily?(LAST FILLED [facility] 10/13/22) Aspirin (aspirin 81 mg oral delayed release tablet)?81?Milligram?1?tablet?By Mouth?Daily Cholecalciferol (Vitamin D3 5000 intl units oral tablet)?1?tab(s)?125?Microgram?By Mouth?Daily?(LAST FILLED [facility] 09/29/22) Clopidogrel (Plavix 75 mg oral tablet)?75?Milligram?1?tablet?By Mouth?Daily?(LAST FILLED [facility] 10/12/22) Cyanocobalamin (Vitamin B-12 1000 mcg oral tablet)?1,000?Microgram?1?tablet?By Mouth?Daily?(LAST FILLED [facility] 10/06/22) Docusate-Senna (docusate-senna 50 mg-8.6 mg oral capsule)?2?capsule?By Mouth?2 times a day Donepezil (donepezil 5 mg oral tablet)?5?Milligram?1?tablet?By Mouth?Daily at bedtime?(LAST FILLED [facility] 10/12/22) Famotidine (famotidine 40 mg oral tablet)?1?tab(s)?40?Milligram?By Mouth?Daily?(LAST FILLED [facility] 10/04/22) Gabapentin (gabapentin 100 mg oral capsule)?100?Milligram?1?capsule?By Mouth?2 times a day?(LAST FILLED [facility] 10/02/22) insulin degludec (Tresiba FlexTouch 100 units/mL subcutaneous solution)?18?unit(s)?Subcutaneous Infusion?Daily at bedtime Levothyroxine (levothyroxine 0.1 mg oral tablet)?1?tab(s)?100?Microgram?By Mouth?Daily?(LAST FILLED [facility] 10/03/22) Lisinopril (lisinopril 40 mg oral tablet)?1?tab(s)?40?Milligram?By Mouth?Daily?(LAST FILLED [facility] 09/29/22) Metoprolol (Metoprolol Succinate ER 25 mg oral tablet, extended release)?2?tab(s)?50?Milligram?By Mouth?Daily?(LAST FILLED [facility] 10/12/22) Morphine (morphine 15 mg oral tablet, immediate release)?0.5?tab(s)?7.5?Milligram?ByMouth?Every 4 hours?as needed?for pain?for 5?Days Polyethylene Glycol 3350 (polyethylene glycol 3350 oral powder for reconstitution)?17?gram?By Mouth?2 times a day?as needed?Constipation?dissolve in water or juice before taking Pyridoxine (Vitamin B6 100 mg oral tablet)?1?tab(s)?100?Milligram?By Mouth?Daily?(LAST FILLED [facility] 10/25/22) Rosuvastatin (rosuvastatin 20 mg oral capsule)?1?capsule?20?Milligram?By Mouth?Daily Senna (Senna 8.6 mg oral tablet)?8.6?Milligram?1?tab(s)?By Mouth?Daily at bedtime?(LAST FILLED [facility] 10/25/22) ? Durable Medical Equipment Discharge recommendations: Home (10/16/22) Name of Agency #1: [facility] (11/10/22) Agency Last Putter Away #1: Intake (11/10/22) Service Categories #1: Correction (11/10/22) Service Comments #1: [facility] [phone] will provide your care upon discharge, if any issuesor concerns please contact the agency directly. (11/10/22) Ambulatory devices needed: None (11/16/22) ? Allergies Allergies ?(Active and Proposed Allergies Only) [...] Nausea and vomiting status: disruptive effects ? Hospital Course ?? 77-year-old female with history of nephrolithiasis, hydronephrosis, hypothyroidism, hypertension, coronary artery disease, hyperlipidemia, diabetes mellitus type 2, aortic aneurysm, sick sinus syndrome status post pacemaker presenting to the emergency room with complaints of lower abdominal pain aswell as flank pain.?? Patient recently admitted early November with similar complaints, at which time was managed for constipation/stercoral colitis with a bowel regimen and also noted to have mild hydronephrosis of the left kidney.?? Patient had CT scan done again which shows no evidence of hydronephrosis, bilateral nonobstructing nephrolithiasis, constipation with sigmoid fecal impaction noted.?? Vitals noted to be stable.?? Patient admitted for further work-up and management. ?? Acute on chronic abdominal pain/flank area pain Constipation CT done this time with evidence of constipation, sigmoid fecal impaction no diverticulitis or colitis noted.?? There is no evidence of hydronephrosis as well this time, but showing bilateral nonobstructing nephrolithiasis Not sure how aggressive patient has been with her bowel regimen.?? At this time she has been placedon the senna plus, MiraLAX, also received enemas with good improvement. Pain appears to be improving as well. Patient tolerating diet without any difficulty. Discussed with the patient to be compliant on her daily bowel regimen and to ensure at least 1 bowel movement a day. ?? Nonobstructing bilateral nephrolithiasis Unlikely to cause her symptoms at this time.?? CT showing no evidence of hydronephrosis compared toprior CAT scan.?? Can patient voiding well continue to follow-up as outpatient for any acute issues. ?? chronic stable medical problems CAD - continue asa, plavix, statin gout - continue allopurinol ?? Patient medically stable for discharge to assisted living facility. Will need to ensure to have regular bowel regimen. no need for antibiotics at this time. Objective Assessment and Plan Discharge Planning:? Vital Signs?? Temperature: 97.9 DegF (11/17/22 06:43:00) Temperature Route: Oral (11/17/22 06:43:00) Pulse Rate: 60 bpm (11/17/22 10:24:00) Respiratory Rate: 16 br/min (11/17/22 10:24:00) Systolic Blood Pressure:??159 mm Hg??High (11/17/22 10:24:00) Diastolic Blood Pressure: 69 mm Hg (11/17/22 10:24:00) Blood pressure sites: Arm, right (11/17/22 10:24:00) Mean Arterial Pressure: 99 mm Hg (11/17/22 10:24:00) Pulse Pressure: 90 mm Hg (11/17/22 10:24:00) Oxygen Saturation: 99 % (11/17/22 10:24:00) Mode of Delivery (Oxygen): Room air (11/17/22 10:24:00) Early Warning Score: 2 (11/17/22 10:29:49) ? . Physical Exam Elderly pleasant female not in any acute distress HEENT PERRLA, EOMI Neck supple Chest is clear to auscultation Heart S1-S2 regular no murmurs appreciated Abdomen soft nontender??bowel sounds present,??mild flank/back area??tenderness present on deep palpation Extremities??no pedal edema pulses present bilaterally Pending Results No Pending Results Patient Instructions Make sure to take the stool softeners regularly, hold if you have??more than 2 bowel movements??loose. Follow-up with your primary care physician in a week. ??Make sure to drink plenty of??fluid intake??and keep hydrated well Post Discharge Care Diet: Low Fiber Diet Activity: Ambulate as tolerated Code Status: ?? Full Resuscitation Condition: Fair Prognosis: Fair Discharge ?Assisted living facility, ??11/17/22 12:33:00 EDT Discharge Prescriptions ?ePrescribed, ??11/17/22 12:33:00 EDT Home Health Face to Face ^HomeHealthFTF Results Discharge Labs BLOOD COUNT & DIFF WBC 6.5 k/mm3 ()?? 11/17/2022 04:52 RBC 4.37 m/mm3 ()?? 11/17/2022 04:52 Hgb 12.7 Gm/dL ()?? 11/17/2022 04:52 Hct 40.7 % ()?? 11/17/2022 04:52 MCV 93.1 femtoliters ()?? 11/17/2022 04:52 MCH 29.1 pg ()?? 11/17/2022 04:52 MCHC 31.2 g/dL (Low)?? 11/17/2022 04:52 Platelet Count 211 k/mm3 ()?? 11/17/2022 04:52 RDW-SD 48.9 femtoliters (High)?? 11/17/2022 04:52 MPV 9.6 femtoliters ()?? 11/17/2022 04:52 Nucleated RBC (Automated) 0.0 #/100 WBC'S ()?? 11/17/2022 04:52 Abs. NRBC 0.0 k/mm3 ()?? 11/17/2022 04:52 Abs. Neut 4.6 k/mm3 ()?? 11/16/2022 20:25 Abs. Lymph 2.2 k/mm3 ()?? 11/16/2022 20:25 Abs. [place] 0.5 k/mm3 ()?? 11/16/2022 20:25 Abs. Eo 0.2 k/mm3 ()?? 11/16/2022 20:25 Abs. Baso 0.1 k/mm3 ()?? 11/16/2022 20:25 Neut % 61.2 % ()?? 11/16/2022 20:25 Lymph % 29.7 % ()?? 11/16/2022 20:25 [place] % 6.0 % ()?? 11/16/2022 20:25 Eos % 2.0 % ()?? 11/16/2022 20:25 Baso % 0.8 % ()?? 11/16/2022 20:25 Imm Gran 0.3 % ()?? 11/16/2022 20:25 Abs. Imm Gran 0.0 k/mm3 ()?? 11/16/2022 20:25 ?? CHEM GENERAL Sodium 142 mmol/L ()?? 11/17/2022 04:52 Potassium 3.6 mmol/L ()?? 11/17/2022 04:52 Chloride 104 mmol/L ()?? 11/17/2022 04:52 Bicarbonate Level 27 mmol/L ()?? 11/17/2022 04:52 Anion Gap 11 ()?? 11/17/2022 04:52 Glucose Level 252 mg/dL (High)?? 11/17/2022 04:52 Glucose, POC 153 mg/dL (High)?? 11/17/2022 10:27 BUN 21 mg/dL ()?? 11/17/2022 04:52 Creatinine-Blood 0.8 mg/dL ()?? 11/17/2022 04:52 Estimated GFR Creatinine 74 ML/MIN/1.73 M2 ()?? 11/17/2022 04:52 Calcium 8.9 mg/dL ()?? 11/17/2022 04:52 Protein, Total 6.5 Gm/dL ()?? 11/16/2022 20:25 Albumin 3.9 Gm/dL ()?? 11/16/2022 20:25 AG Ratio 1.5 ()?? 11/16/2022 20:25 Alkaline Phosphatase 94 units/L ()?? 11/16/2022 20:25 Lipase 30 units/L ()?? 11/16/2022 20:25 AST (SGOT) 16 units/L ()?? 11/16/2022 20:25 ALT (SGPT) 20 units/L ()?? 11/16/2022 20:25 Bilirubin, Total 0.2 mg/dL ()?? 11/16/2022 20:25 Lactate 0.9 mmol/L ()?? 11/16/2022 20:25 ?? UA/URINALYSIS Appear/Color, Urine YELLOW ()?? 11/16/2022 21:29 Specific [place], Urine 1.018 ()?? 11/16/2022 21:29 pH, Urine 5.5 ()?? 11/16/2022 21:29 Albumin, Urine NEGATIVE ()?? 11/16/2022 21:29 Glucose, Urine NEGATIVE ()?? 11/16/2022 21:29 Ketones, Urine NEGATIVE ()?? 11/16/2022 21:29 Bilirubin, Urine NEGATIVE ()?? 11/16/2022 21:29 Hemoglobin, Urine NEGATIVE ()?? 11/16/2022 21:29 Nitrite, Urine NEGATIVE ()?? 11/16/2022 21:29 Leukocyte, Urine TRACE (Abnormal)?? 11/16/2022 21:29 Urobilinogen NORMAL mg/dL ()?? 11/16/2022 21:29 WBC's, Urine 4 /HPF ()?? 11/16/2022 21:29 RBC's, Urine 2 /HPF ()?? 11/16/2022 21:29 Squamous Epith 1 /HPF ()?? 11/16/2022 21:29 Mucus SLIGHT /LPF ()?? 11/16/2022 21:29 Hold Urine Culture Testing available 48 hours from time of collection. ()?? 11/16/2022 21:29 ?? URINE OTHER Est Creatinine Clearance 47.15 mL/min ()?? 11/17/2022 06:05 ? VIROLOGY COVID-19 by RT-PCR NEGATIVE ()?? 11/17/2022 00:04 ? Microbiology ?? COVID-19 (Novel Coronavirus), Rapid PCR?? Completed?? Source: Nasal Body Site: Nose Collected Dt/Tm: 11/16/2022 23:30 Last Updated Dt/Tm: 11/17/2022 01:08 ? Imaging(s) ?CT Abdomen and Pelvis W/O Contrast ?? 11/16/2022 23:07??by Antwan Yang MD ?IMPRESSION: No hydronephrosis. Bilateral nonobstructing nephrolithiasis. Constipation with sigmoid fecal impaction. No diverticulitis or colitis. 3.4 cm proximal abdominal aortic aneurysm. ? 35??minutes spent on discharge Patient Care team information Care Team Personnel Name: Chase Otoole RN Position: [facility] RN Member Role: Primary Care Nurse Name: Radha Crawford Position: [facility] RN Member Role: Primary Care Nurse Name: Ashley Morales MD Position: [facility] Physician - Primary Care Member Role: PCP Address: Address: [address] [place], [place] [address] Name: Svitlana Mcgee RN Position: [facility] RN Member Role: Primary Care Nurse Name: Soraida Handy RN Position: [facility] RN Member Role: Primary Care Nurse Name: Thom Kuo RN Position: [facility] RN Member Role: Primary Care Nurse Name: Ileana Khan RN Position: [facility] RN Member Role: Primary Care Nurse Name: Becky Quezada RN Position: [facility] RN Member Role: Primary Care Nurse Name: Sara Dorantes RN Position: [facility] RN Member Role: Primary Care Nurse Name: Chelita Bailey LPN Position: [facility] RN Member Role: Primary Care Nurse Name: Frank LANDAVERDE Attending Position: [facility] ED Medicine MD Name: Jennifer Yancey RN Position: [facility] ED RN W/OE and Tasks Member Role: Patient Care Provider Name: Hannah Sanders RN Position: [facility] ED RN W/OE and Tasks Member Role: Patient Care Provider Name: Breanna Can Position: [facility] ED TA [facility] Member Role: Still Operator [place]
--- OUTSIDE RECORDS SUMMARY | 2023-07-20 23:04 | XMS_ITS | Continuity of Care Document ---
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 Role Phone Ashley Morales MD Primary Care Physician [phone] [place] [facility] [place] 10/18/22 - 10/18/[address] [address]- Encounter Diagnosis Nephrolithiasis(Final) - 10/18/22 Ureterolithiasis(Final) - 10/18/22 Discharge Disposition: A-D/C Home Attending Physician: Hollis Roque DO Admitting Physician: Hollis Roque DO Referring Physician: Not on Staff, Referring [...] (COVID-19) mRNA [id number] vac 07/22/20 Recorded Medications acetaminophen 325 mg oral tablet 650 mg, 2, tablet, By Mouth, Every 4 hours, PRN, # 12 tablet, Refills 0, Maintenance, as needed forpain, 09/18/22 16:27:00 EDT, Partial fill upon patient request if the prescription is for a schedule II opioid drug. Start Date: 09/18/22 Status: Ordered allopurinol 100 mg oral tablet 100 mg, 1, tablet, By Mouth, Daily, # 90 tablet, Refills 0, Maintenance, 09/18/22 16:24:00 EDT, Partial fill upon patient request if the prescription is for a schedule II opioid drug. Start Date: 09/18/22 Status: Ordered amLODIPine 5 mg oral tablet 5 mg, 1, tablet, By Mouth, Daily, # 90 tablet, Refills 1, Tot. Refills 1, Maintenance, 01/27/22 10:57:00 EDT, Route to Pharmacy Electronically, [facility], Partial fill upon patient request if the prescription is for a schedule II opioid... Start Date: 01/27/22 Status: Ordered aspirin 81 mg oral delayed release tablet 81 mg, 1, tablet, By Mouth, Daily, # 30 tablet, Refills 0, Tot. Refills 0, Maintenance, 02/24/22 16:24:00 EDT, Route to Pharmacy Electronically, [facility], Partial fill upon patient request if the prescription is for a schedule II opioi... Start Date: 02/24/22 Status: Ordered BD PEN NEEDL MIS [id number] [place] BD PEN NEEDL MIS [id number] [place], 0 Refills, Maintenance, 09/18/22 15:29:00 EDT Start Date: 09/18/22 Status: Ordered docusate sodium 100 mg oral capsule 100 mg, 1, capsule, By Mouth, 2 times a day, Refills 0, Maintenance, 09/18/22 16:12:00 EDT, Partialfill upon patient request if the prescription is for a schedule II opioid drug. Start Date: 09/18/22 Status: Ordered donepezil 5 mg oral tablet 5 mg, 1, tablet, By Mouth, Daily at bedtime, Refills 0, Maintenance, 11/08/19 12:35:00 EDT Start Date: 11/08/19 Status: Ordered famotidine 40 mg oral tablet 1 tablet = 40 mg, By Mouth, Daily Start Date: 09/18/22 Status: Ordered gabapentin 100 mg oral capsule 100 mg, 1, capsule, By Mouth, 2 times a day, # 90 capsule, Refills 0, Maintenance, 11/08/19 12:31:00 EDT Start Date: 11/08/19 Status: Ordered ibuprofen 400 mg oral tablet 400 mg, 1, tablet, By Mouth, Every 4 hours, PRN, # 60 tablet, Refills 0, Tot. Refills 0, Maintenance, for fever, 10/18/22 4:26:00 EDT, Route to Pharmacy Electronically, [facility], Partial fill upon patient request if the prescription is for... Start Date: 10/18/22 Status: Ordered levothyroxine 0.1 mg oral tablet 1 tablet = 100 mcg, By Mouth, Daily, # 90 tablet, 1 Refills, Maintenance, 12/07/21 9:50:00 EDT, Tablet, [facility], Partial fill upon patient request if the prescription is for a schedule II opioid drug., 160, cm, 12/07/21 7:04:00 EDT, [place]... Start Date: 12/07/21 Status: Ordered lisinopril 40 mg oral tablet 1 tablet = 40 mg, By Mouth, Daily, # 30 tablet, 0 Refills, Maintenance, 12/06/21 9:32:00 EDT, Tablet, [...] 2 tablet = 50 mg, By Mouth, Daily Start Date: 12/06/21 Status: Ordered Mintox 30 mL, By Mouth, Every 4 hours, PRN upset stomach, Maintenance, 09/18/22 16:18:00 EDT Start Date: 09/18/22 Status: Ordered MOM Liquid 30 mL, By Mouth, Daily, PRN as needed for constipation, 0 Refills, Maintenance, 09/18/22 16:17:00 EDT, Partial fill upon patient request if the prescription is for a schedule II opioid drug. Start Date: 09/18/22 Status: Ordered morphine 15 mg oral tablet, immediate release 0.5 tablet = 7.5 mg, By Mouth, Every 4 hours, PRN for pain, # 5 tablet, 0 Refills, Maintenance, 10/18/22 4:30:00 EDT, Tablet, [facility], Partial fill upon patient request if the prescription is for a schedule II opioid drug., 160, cm, 10/17... Start Date: 10/18/22 Status: Ordered MorPHINE Inj 4 mg, Injection, IV Push Slowly, Once, STAT, 10/18/22 3:29:00 EDT, Stop date 10/18/22 3:29:00 EDT Start Date: 10/18/22 Stop Date: 10/18/22 Status: Completed Plavix 75 mg oral tablet 75 mg, 1, tablet, By Mouth, Daily, Refills 0, Maintenance, 11/08/19 12:35:00 EDT Start Date: 11/08/19 Status: Ordered polyethylene glycol 3350 oral powder for reconstitution = 17 Gm, By Mouth, 2 times a day, PRN Constipation, dissolve in water or juice before taking, # 255Gm, 0 Refills, Maintenance, 09/18/22 16:20:00 EDT, REC Powder, Partial fill upon patient request ifthe prescription is for a schedule II opioid drug. Start Date: 09/18/22 Status: Ordered rosuvastatin 20 mg oral capsule 1 capsule = 20 mg, By Mouth, Daily, # 90 capsule, 1 Refills, Maintenance, 01/27/22 10:57:00 EDT, [facility]apsule[facility], Partial fill upon patient request if the prescription is for a schedule II opioid drug., 160, cm, 12/07/21 7:04:00 EDT,... Start Date: 01/27/22 Status: Ordered Senna 8.6 mg oral tablet 8.6 mg, 1, tablet, By Mouth, Daily at bedtime, Refills 0, Maintenance, 09/18/22 16:26:00 EDT, Partial fill upon patient request if the prescription is for a schedule II opioid drug. Start Date: 09/18/22 Status: Ordered Tresiba FlexTouch 200 units/mL subcutaneous solution = 18 units, Subcutaneous Injection, Daily at bedtime, rotate injection sites, # 9 mL, 0 Refills, Maintenance, 11/08/19 12:31:00 EDT, Solution Start Date: 11/08/19 Status: Ordered Tylenol 325 mg oral capsule 2 capsule = 650 mg, By Mouth, Every 4 hours, PRN as needed for fever, # 90 capsule, 0 Refills, Maintenance, 10/18/22 4:27:00 EDT, Capsule, [facility], Partial fill upon patient request if the prescription is for a schedule II opioid drug., 1... Start Date: 10/18/22 Status: Ordered Vitamin B-12 1000 mcg oral tablet 1,000 mcg, 1, tablet, By Mouth, Daily, # 30 tablet, Refills 0, Maintenance, 09/18/22 15:30:00 EDT, Partial fill upon patient request if the prescription is for a schedule II opioid drug. Start Date: 09/18/22 Status: Ordered Vitamin B6 = 100 mg, Daily, 0 Refills, Maintenance, 02/24/22 4:06:00 EDT, Partial fill upon patient request ifthe prescription is for a schedule II opioid drug. Start Date: 02/24/22 Status: Ordered Vitamin D3 5000 intl units oral tablet 1 tablet = 125 mcg, By Mouth, Daily, # 100 tablet, 0 Refills, Maintenance, 01/26/22 23:18:00 EDT, Tablet, Partial fill upon patient request if the prescription is for a schedule II opioid drug. Start Date: 01/26/22 Status: Ordered Problem List Condition Confirmation Course Effective Dates Status H ealt Status Informant CAD (coronary artery disease) Confirmed Active Gout Confirmed Active HTN (hypertension) Confirmed Active Hypothyroidism Confirmed Active Cognitive impairment Confirmed Active SSS (sick sinus syndrome) Confirmed Active Type 2 diabetes mellitus Confirmed Active Results Radiology Reports * Exam Date Time Procedure Performing Provider Status 10/18/22 3:[address] Abdomen and Pelvi s W/O Contrast Joseph Stevens (Verified) Notes: (CT Abdomen and Pelvis W/O Contrast) Reason For Exam: Flank pain, kidney stone suspected;Other: RESULT: CT Abdomen and Pelvis W/O Contrast CT Abdomen and Pelvis W/O Contrast INDICATION: Left flank pain, concern for kidney stone. TECHNIQUE: Spiral CT through the abdomen and pelvis without IV contrast formatted in 3 planes. Thisstudy was performed without oral contrast. Weight- based protocol using automatic tube modulation was used to optimize exposure parameters. CTDIvol Body: 4.30 mGy, DLP Body: 243 mGy*cm. COMPARISON: None FINDINGS: Medical Support Specialist View Findings, Lines and Tubes: Partially visualized dual-lead left subclavian pacer. Visualized Chest: Lung bases are clear. No pleural effusion. The heart is normal in size. No pericardial effusion. Diaphragm: Normal. Liver: Visualized portions appear normal. Gallbladder: No CT evidence of gallbladder pathology. Bile ducts: No biliary ductal dilation. Spleen: Normal. Pancreas: Normal. Adrenal glands: 1.3 cm hypodense nodule in the left adrenal gland consistent with benign adrenal adenoma. No follow-up imaging needed. Kidneys and ureters: 0.3 cm partially obstructing stone in the proximal/mid left ureter (image 85 series 301). Mild left hydronephrosis. Few additional small nonobstructing stones in the bilateral kidneys. Bladder: Normal. Reproductive organs: Not seen and likely surgically absent. Stomach, small bowel, and large bowel: Stomach is normal. Small bowel is normal in course and caliber. Large stool and gas burden in the distal colon causing dilation up to 8 cm. Mild colonic diverticulosis with no evidence of acute diverticulitis. Appendix: No evidence of acute appendicitis. Peritoneum and retroperitoneum: No ascites or pneumoperitoneum. No omental or mesenteric lesions. Lymph nodes: No enlarged lymph nodes. Blood vessels: Severe atherosclerotic vascular calcification. Infrarenal aortic aneurysm measuring up to 3.9 cm in transverse diameter with mural and/or thrombus calcifications. Abdominal and pelvic wall: Unremarkable. Bones: No acute abnormality. IMPRESSION: Partially obstructing 0.3 cm stone in the proximal/mid left ureter causing mild left hydronephrosis. Multiple additional nonobstructing bilateral kidney stones. Saccular infrarenal abdominal aortic aneurysm measuring up to 3.9 cm transverse. Recommend follow-up ultrasound or CTA in 3 years per simplified ACR and SVS guidelines. Reference: Cali CAMARENA et al. JVasc Surg 2018; 67:2-77. Society for Vascular Surgery 2018 practice guidelines on the care of patients with an abdominal aortic aneurysm. Mild colonic diverticulosis with no evidence of acute diverticulitis. Results were conveyed by Cortext by Dr. Milian to Lida Ochoa MD on 10/18/2022 at 4:06 AM with understanding acknowledged. I have personally reviewed the images and I agree with this report. WSN: [id number] Ordering Physician: Lida Ochoa Dictated By: Cuba Milian MD Dictated Date/Time: 10/18/22 7:55 am Reviewed By: Antwan Caba MD Signed By: Antwan Caba MD Signed Date/Time: 10/18/22 8:00 am Transcribed By: FERMIN Transcribed Date/Time: 10/18/22 4:06 am Vital Signs Most recent to oldest [Reference Range]: 1 2 3 Oxygen Saturation [94-100 %] 95 % (10/18/22 5:49 AM) 98 % (10/18/22 3:58 AM) 96 % (10/18/22 2:20 AM) Pulse Rate [55-90 bpm] 63 bpm (10/18/22 5:49 AM) 60 bpm (10/18/22 3:58 AM) 60 bpm (10/18/22 2:20 AM) Blood Pressure [90-138/55-84 mm Hg] 138/80mm Hg (10/18/22 5:49 AM) 140/90mm Hg *H* (10/18/22 3:58 AM) 164/66mm Hg *H* (10/18/22 2:20 AM) Respiratory Rate [16-30 br/min] 18 br/min (10/18/22 5:49 AM) 19 br/min (10/18/22 3:58 AM) 18 br/min (10/18/22 3:55 AM) Temperature [96.8-100.4 DegF] 98.3 DegF (10/18/22 5:49 AM) 98.2 DegF (10/18/22 12:53 AM) Mode of Delivery (Oxygen) Room air (10/18/22 5:49 AM) Room air (10/18/22 3:58 AM) Room air (10/18/22 2:20 AM) Temperature Route Oral (10/18/22 12:53 AM) Social History Social History Type Response Tobacco Use: 4 or less cigar ettes(less than 1/4 pack)/day in last 30 days. Sex Note * Director MD, Lida: PERFORM Event Display: Patient Education Leaflets Authored Date: [id number] Kidney Stones ?? Kidney Stones - Video Kidney stones are a common problem, affecting about 12% of men and 5% of women. Stones are typically caused by an imbalance in the urinary system: too little water, too much oxalate, or too much calcium. In this video, you'll find out how the stones develop and what you can do to prevent them. To view the video go to this web address: [email or web address] Or, scan this QR code with your smart phone Last Reviewed Date: 2019 ?? [employer]. All rights reserved. This information is not intended as a substitute for professional medical care. Always follow your healthcare professional's instructions. ?? CT Abdomen and Pelvis WO contrast * BHSPowerscribe , CIS S: TRANSCRIBE Gertrudis LORA, Antwan S: VERIFY Maicol LORA, [place]: SIGN Event Display: Result: Authored Date: [id number] CT Abdomen and Pelvis W/O Contrast INDICATION: Left flank pain, concern for kidney stone. TECHNIQUE: Spiral CT through the abdomen and pelvis without IV contrast formatted in 3 planes. Thisstudy was performed without oral contrast. Weight- based protocol using automatic tube modulation was used to optimize exposure parameters. CTDIvol Body: 4.30 mGy, DLP Body: 243 mGy*cm. COMPARISON: None FINDINGS: Medical Support Specialist View Findings, Lines and Tubes: Partially visualized dual-lead left subclavian pacer. Visualized Chest: Lung bases are clear. No pleural effusion. The heart is normal in size. No pericardial effusion. Diaphragm: Normal. Liver: Visualized portions appear normal. Gallbladder: No CT evidence of gallbladder pathology. Bile ducts: No biliary ductal dilation. Spleen: Normal. Pancreas: Normal. Adrenal glands: 1.3 cm hypodense nodule in the left adrenal gland consistent with benign adrenal adenoma. No follow-up imaging needed. Kidneys and ureters: 0.3 cm partially obstructing stone in the proximal/mid left ureter (image 85 series 301). Mild left hydronephrosis. Few additional small nonobstructing stones in the bilateral kidneys. Bladder: Normal. Reproductive organs: Not seen and likely surgically absent. Stomach, small bowel, and large bowel: Stomach is normal. Small bowel is normal in course and caliber. Large stool and gas burden in the distal colon causing dilation up to 8 cm. Mild colonic diverticulosis with no evidence of acute diverticulitis. Appendix: No evidence of acute appendicitis. Peritoneum and retroperitoneum: No ascites or pneumoperitoneum. No omental or mesenteric lesions. Lymph nodes: No enlarged lymph nodes. Blood vessels: Severe atherosclerotic vascular calcification. Infrarenal aortic aneurysm measuring up to 3.9 cm in transverse diameter with mural and/or thrombus calcifications. Abdominal and pelvic wall: Unremarkable. Bones: No acute abnormality. IMPRESSION: Partially obstructing 0.3 cm stone in the proximal/mid left ureter causing mild left hydronephrosis. Multiple additional nonobstructing bilateral kidney stones. Saccular infrarenal abdominal aortic aneurysm measuring up to 3.9 cm transverse. Recommend follow-up ultrasound or CTA in 3 years per simplified ACR and SVS guidelines. Reference: Cali CAMARENA et al. JVasc Surg 2018; 67:2-77. Society for Vascular Surgery 2018 practice guidelines on the care of patients with an abdominal aortic aneurysm. Mild colonic diverticulosis with no evidence of acute diverticulitis. Results were conveyed by Cortext by Dr. Milian to Lida Ochoa MD on 10/18/2022 at 4:06 AM with understanding acknowledged. I have personally reviewed the images and I agree with this report. WSN: [id number] Ordering Physician: Lida Ochoa Dictated By: [place] Milian MD Dictated Date/Time: 10/18/22 7:55 am Reviewed By: Antwan Caba MD Signed By: Antwan Caba MD Signed Date/Time: 10/18/22 8:00 am Transcribed By: FERMIN Transcribed Date/Time: 10/18/22 4:06 am Patient Care team information Care Team Personnel Name: Ashley Morales MD Position: [facility] Physician (General Medicine) Member Role: PCP Address: Address: [address] [place], [place] [address] Name: Soraida Handy RN Position: [facility] RN Member Role: Primary Care Nurse Name: Thom Kuo RN Position: S RN Member Role: Primary Care Nurse Name: Ileana Khan RN Position: [facility] RN Member Role: Primary Care Nurse Name: Becky Quezada RN Position: [facility] SN RN Member Role: Primary Care Nurse Name: Chelita Bailey LPN Position: [facility] RN Member Role: Primary Care Nurse Name: Hollis Roque DO Position: [facility] Resident Member Role: Admitting Physician Address: Address: [address] [place] [address] Name: Director Lida LORA Position: [facility] Resident Member Role: ED Resident Address: Address: [address] [place] [address] Name: Denis Ramirez Position: [facility] ED RN W/OE and Tasks Member Role: Patient Care Provider Name: Patria Narvaez Position: [facility] ED TA [facility] Member Role: Patient Care Provider
--- OUTSIDE RECORDS SUMMARY | 2023-07-20 23:04 | XMS_ITS | Continuity of Care Document ---
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 Role Phone Ashley Morales MD Primary Care Physician [place] [facility] [place] - 11/08/[address] [address] [place] Encounter Diagnosis Palpitations(Final) - 11/07/19 Dizziness on standing(Final) - 11/07/19 Palpitations(Final) - 11/07/19 Discharge Disposition: A-D/C Home Attending Physician: Chuckie Velasquez MD Admitting Physician: Bassam Patel MD Referring Physician: Not on Staff, Referring MD Allergies, Adverse Reactions, Alerts Substance Reaction Severity Status ciprofloxacin Active azithromycin Nausea and vomiting status: disruptive effects Active cephalexin Nausea and vomiting Active penicillin Rash Active simvastatin Active sertraline Anxiety Active atorvastatin Active repaglinide Nausea and vomiting Active citalopram Active sulfa drugs Nausea and vomiting Active pioglitazone Active rosuvastatin Active Nitrofurantoin Monohydrate/Macrocrystals Active Cefuroxime Axetil Acute diarrhea Active cefTRIAXone Acute diarrhea Active metFORMIN Acute diarrhea Active oxyCODONE Active levoFLOXacin 1 Active 1numb lips Medications donepezil 5 mg oral tablet 5 mg, 1, tablet, By Mouth, Daily at bedtime, Refills 0, Maintenance, 11/08/19 12:35:00 EDT Start Date: 11/08/19 Status: Ordered famotidine 40 mg oral tablet 1 tablet = 40 mg, By Mouth, Daily at bedtime, # 30 tablet, 0 Refills, Maintenance, 11/08/19 12:31:00 EDT, Tablet Start Date: 11/08/19 Status: Ordered gabapentin 100 mg oral capsule 100 mg, 1, capsule, By Mouth, 2 times a day, # 90 capsule, Refills 0, Maintenance, 11/08/19 12:31:00 EDT Start Date: 11/08/19 Status: Ordered Keflex monohydrate 250 mg oral capsule 1 capsule = 250 mg, By Mouth, 4 times a day, # 12 capsule, 0 Refills, Maintenance, 11/08/19 12:34:00 EDT, Capsule, [facility], 160, cm, 11/08/19 11:16:00 EDT, Height, 65.5, kg, 11/07/19 3:24:00 EDT, Dry Weight Start Date: 11/08/19 Stop Date: 11/11/19 Status: Ordered levothyroxine 0.1 mg oral tablet 1 tablet = 100 mcg, By Mouth, Daily, 0 Refills, Maintenance, 11/08/19 12:35:00 EDT, Tablet Start Date: 11/08/19 Status: Ordered lisinopril 5 mg oral tablet 2.5 mg, 0.5, tablet, By Mouth, Daily, Refills 0, Maintenance, 11/08/19 12:35:00 EDT Start Date: 11/08/19 Status: Ordered Plavix 75 mg oral tablet 75 mg, 1, tablet, By Mouth, Daily, Refills 0, Maintenance, 11/08/19 12:35:00 EDT Start Date: 11/08/19 Status: Ordered Toprol XL 25 mg oral tablet, extended release 25 mg, 1, tablet, By Mouth, Daily, # 90 tablet, Refills 2, Tot. Refills 2, Maintenance, 11/08/19 12:29:00 EDT, Route to Pharmacy Electronically, [facility], 160, cm, 11/08/19 11:16:00 EDT, Height, 65.5, kg, 11/07/19 3:24:00 EDT, Dry Weight Start Date: 11/08/19 Status: Ordered Tresiba FlexTouch 200 units/mL subcutaneous solution = 10 units, Subcutaneous Injection, Daily at bedtime, rotate injection sites, # 9 mL, 0 Refills, Maintenance, 11/08/19 12:31:00 EDT, Solution Start Date: 11/08/19 Status: Ordered Results Orders for Microbiology Reports Name Date Urine Culture (URINE CULTURE) 11/07/19 Microbiology Reports TEST:Urine Culture STATUS:Unauthenticated BODY SITE: SOURCE:URINE COLLECTED DATE/TIME:11/07/19 1:30 AM Urine Culture SPECIMEN DESCRIPTION : URINE SPECIAL REQUESTS : NONE CULTURE : >100,000 COL/ML GRAM NEGATIVE RODS REPORT STATUS : PRELIMINARY REPORT Radiology Reports * Exam Date Time Procedure Performing Provider Status 11/06/19 5:22 PM Chest 2 Views Frontal and Lat Soni Fleming; Auth (Verified) Notes: (Chest 2 Views Frontal and Lat) Reason For Exam: Shortness of Breath, Fever;Other: RESULT: Chest 2 Views Frontal and Lat Chest 2 Views Frontal and Lat Refer to EMR; Reason: Other:; Shortness of Breath, Fever; Clinical Question(s): Pneumonia; Hx of Present Illness: c o sob and palpiatation and diziness. per ems svt at hr 190s with convertion with adenosine 6 mg piv. denies any fever. denies any cardiac hx.; Other Objective Findings: awake and alert, speaking in full senteces, unlabored breathing, ambulatory to bathroom with one assist. no chest p COMPARISON: 03/06/2019. FINDINGS: LINES AND TUBES: Dual-lead left subclavian pacer/AICD wires are intact. LUNGS AND PLEURA: Clear lungs. Normal pulmonary vascularity. No pleural effusion. No pneumothorax. HEART, MEDIASTINUM AND YOMI: Heart is normal in size. Normal mediastinal and hilar contour. BONES AND SOFT TISSUES: No acute abnormality. IMPRESSION: No acute abnormality. WSN: [id number] Ordering Physician: Al Hendricks Dictated By: Antwan Yang MD Dictated Date/Time: 11/06/19 5:29 pm Reviewed By: Antwan Yang MD Signed By: Antwan Yang MD Signed Date/Time: 11/06/19 5:29 pm Transcribed By: FERMIN Transcribed Date/Time: 11/06/19 5:27 pm Vital Signs Most recent to oldest [Reference Range]: 1 2 3 Height 160 cm (11/08/19 11:05 AM) 160 cm (11/08/19 7:42 AM) 160 cm (11/08/19 4:38 AM) Weight 65.5 kg (11/07/19 3:07 AM) Oxygen Saturation [94-100 %] 95 % (11/08/19 11:05 AM) 94 % (11/08/19 7:42 AM) 100 % (11/08/19 4:38 AM) Pulse Rate [55-90 bpm] 54 bpm *L* (11/08/19 11:05 AM) 60 bpm (11/08/19 9:26 AM) 60 bpm (11/08/19 7:42 AM) Body Mass Index [18.5-24.99] 25.59 *H* (11/07/19 3:07 AM) Blood Pressure [90-138/55-84 mm Hg] 142/74mm Hg *H* (11/08/19 11:05 AM) 126/66mm Hg (11/08/19 9:26 AM) 126/66mm Hg (11/08/19 9:26 AM) Respiratory Rate [16-30 br/min] 18 br/min (11/08/19 11:25 AM) 20 br/min (11/08/19 11:05 AM) 20 br/min (11/08/19 7:42 AM) Temperature [96.8-100.4 DegF] 98.7 DegF (11/08/19 11:05 AM) 98.4 DegF (11/08/19 7:42 AM) 98.6 DegF (11/08/19 4:38 AM) Liters per Minute 4 L/min (11/06/19 4:14 PM) Mode of Delivery (Oxygen) Room air (11/08/19 11:05 AM) Room air (11/08/19 7:42 AM) Room air (11/08/19 4:38 AM) Blood pressure sites Arm, right (11/08/19 11:05 AM) Arm, left (11/08/19 7:42 AM) Arm, left (11/08/19 4:38 AM) Temperature Route Oral (11/08/19 11:05 AM) Oral (11/08/19 7:42 AM) Oral (11/08/19 4:38 AM) Dry Weight 65.5 kg (11/07/19 3:07 AM)
--- OUTSIDE RECORDS SUMMARY | 2023-07-20 23:04 | XMS_ITS | Continuity of Care Document ---
Author Name Unknown Organization [facility] ter Address [address] [place] [id number]- Care Team Providers Care Senior Analyst Developer Name Role Phone Ashley Morales MD Primary Care Physician Encounter [facility] [place] Date(s): 11/15/19 - 11/15/[address] [address] [place] Encounter Diagnosis Headache(Final) - 11/15/19 Discharge Disposition: A-D/C Home Attending Physician: Mindy Aguilar MD Admitting Physician: Mindy Aguilar MD Referring Physician: Not on Staff, Referring [...] EDT, Solution Start Date: 11/08/19 Status: Ordered Vital Signs Most recent to oldest [Reference Range]: 1 2 3 Oxygen Saturation [94-100 %] 99 % (11/15/19 9:41 PM) 100 % (11/15/19 7:57 PM) 94 % (11/15/19 6:51 PM) Pulse Rate [55-90 bpm] 60 bpm (11/15/19 9:41 PM) 60 bpm (11/15/19 7:57 PM) 60 bpm (11/15/19 6:51 PM) Blood Pressure [90-138/55-84 mm Hg] 156/63mm Hg *H* (11/15/19 9:41 PM) 162/78mm Hg *H* (11/15/19 7:57 PM) 168/71mm Hg *H* (11/15/19 6:51 PM) Respiratory Rate [16-30 br/min] 18 br/min (11/15/19 9:41 PM) 17 br/min (11/15/19 7:57 PM) 19 br/min (11/15/19 6:51 PM) Temperature [96.8-100.4 DegF] 98.3 DegF (11/15/19 7:57 PM) 98.4 DegF (11/15/19 6:51 PM) Mode of Delivery (Oxygen) Room air (11/15/19 9:41 PM) Room air (11/15/19 7:57 PM) Room air (11/15/19 6:51 PM) Blood pressure sites Arm, left (11/15/19 7:57 PM) Arm, right (11/15/19 6:51 PM) Temperature Route Oral (11/15/19 7:57 PM) Oral (11/15/19 6:51 PM)
--- OUTSIDE RECORDS SUMMARY | 2023-07-20 23:05 | XMS_ITS | Continuity of Care Document ---
Author Name Unknown Organization [facility] ter Address [address] [place] [id number]- Care Team Providers Care Feedmobile Driver Name Role Phone Ashley Morales MD Primary Care Physician [phone] Encounter [facility] [place] Date(s): 12/06/21 - 12/07/[address] [address]- Encounter Diagnosis ACS (acute coronary syndrome)(Final) - 12/06/21 Discharge Disposition: A-D/C Home Attending Physician: Ana Paula Carney MD Admitting Physician: Jonathon LORA, Jun Referring Physician: Not on Staff, Referring MD [...] (active prescription as of 09/2021). 2numb lips Medications allopurinol 100 mg oral tablet TAKE 1 TABLET BY MOUTH EVERY DAY Start Date: 12/06/21 Status: Ordered amLODIPine 5 mg oral tablet 5 mg, 1, tablet, By Mouth, Daily, # 90 tablet, Refills 1, Tot. Refills 1, Maintenance, 12/07/21 9:47:00 EDT, Route to Pharmacy Electronically, [facility], Partial fill upon patient request if the prescription is for a schedule II opioid drug... Start Date: 12/07/21 Status: Ordered donepezil 5 mg oral tablet [...] oral capsule 100 mg, Capsule, By Mouth, 12/07/21 9:00:00 EDT Start Date: 12/07/21 Stop Date: 12/07/21 Status: Completed levothyroxine 0.1 mg oral tablet 1 tablet = 100 mcg, By Mouth, Daily, # 90 tablet, 1 Refills, Maintenance, 12/07/21 9:50:00 EDT, Tablet, [facility], Partial fill upon patient request if the prescription is for a schedule II opioid drug., 160, cm, 12/07/21 7:04:00 EDT, [place]... Start Date: 12/07/21 Status: Ordered lisinopril 20 mg oral tablet 40 mg, Tablet, By Mouth, 12/07/21 9:00:00 EDT Start Date: 12/07/21 Stop Date: 12/07/21 Status: Completed lisinopril 40 mg oral tablet 1 tablet = 40 mg, By Mouth, Daily, # 30 tablet, 0 Refills, Maintenance, 12/06/21 9:32:00 EDT, Tablet, Partial fill upon patient request if the prescription is for a schedule II opioid drug. Start Date: 12/06/21 Status: Ordered metoprolol 25 mg oral tablet, extended release 25 mg, XL Tablet, By Mouth, 12/07/21 9:00:00 EDT Start Date: 12/07/21 Stop Date: 12/07/21 Status: Completed Metoprolol Succinate ER 25 mg oral tablet, extended release TAKE 2 TABLETS BY MOUTH EVERY DAY Start Date: 12/06/21 Status: Ordered Norvasc 5 mg oral tablet 2.5 mg, Tablet, By Mouth, 12/07/21 9:00:00 EDT Start Date: 12/07/21 Stop Date: 12/07/21 Status: Completed Plavix 75 mg oral tablet 75 mg, 1, tablet, By Mouth, Daily, Refills 0, Maintenance, 11/08/19 12:35:00 EDT Start Date: 11/08/19 Status: Ordered rosuvastatin 20 mg oral capsule 1 capsule = 20 mg, By Mouth, Daily, # 90 capsule, 1 Refills, Maintenance, 12/07/21 9:49:00 EDT, Capsule, [facility], Partial fill upon patient request if the prescription is for a schedule II opioid drug., 160, cm, 12/07/21 7:04:00 EDT, [place]... Start Date: 12/07/21 Status: Ordered Tresiba FlexTouch 200 units/mL subcutaneous solution = 18 units, Subcutaneous Injection, Daily at bedtime, rotate injection sites, # 9 mL, 0 Refills, Maintenance, 11/08/19 12:31:00 EDT, Solution Start Date: 11/08/19 Status: Ordered Vitamin B-12 1000 mcg oral tablet 1,000 mcg, 1, tablet, By Mouth, Daily, # 30 tablet, Refills 0, Maintenance, 12/06/21 6:44:00 EDT, Partial fill upon patient request if the prescription is for a schedule II opioid drug. Start Date: 12/06/21 Status: Ordered Results Radiology Reports * Exam Date Time Procedure Performing Provider Status 12/06/21 2:07 AM Chest Portable Michael Panchal; Auth (Harish sequeira) Notes: (Chest Portable) Reason For Exam: Shortness of Breath RESULT: Chest Portable Chest Portable INDICATION: Reason: Shortness of Breath; Clinical Question(s): CHF COMPARISON: 11/06/2019 FINDINGS: LINES AND TUBES: A left-sided cardiac device is redemonstrated with 2 leads in adequate position, stable. LUNGS AND PLEURA: The lungs are clear and the pulmonary vascularity is normal. No effusion or pneumothorax. HEART, MEDIASTINUM AND YOMI: Normal. BONES AND SOFT TISSUES: No acute abnormality. IMPRESSION: No acute abnormality. WSN: [id number] Ordering Physician: Argelia Francis Dictated By: Tammy Cerrato MD Dictated Date/Time: 12/06/21 7:55 am Reviewed By: Tammy Cerrato MD Signed By: Tammy Cerrato MD Signed Date/Time: 12/06/21 7:55 am Transcribed By: FERMIN Transcribed Date/Time: 12/06/21 7:52 am Vital Signs Most recent to oldest [Reference Range]: 1 2 3 Height 160 cm (12/07/21 7:04 AM) 160 cm (12/07/21 3:24 AM) 160 cm (12/06/21 11:37 PM) Weight 61.6 kg (12/06/21 7:51 AM) Oxygen Saturation [94-100 %] 93 % *L* (12/07/21 3:24 AM) 93 % *L* (12/06/21 11:37 PM) 96 % (12/06/21 11:20 AM) Pulse Rate [55-90 bpm] 60 bpm (12/07/21 8:12 AM) 60 bpm (12/07/21 7:04 AM) 66 bpm (12/07/21 3:24 AM) Body Mass Index [18.5-24.99] 24.06 (12/06/21 7:51 AM) Blood Pressure [90-138/55-84 mm Hg] 152/72mm Hg *H* (12/07/21 8:12 AM) 152/72mm Hg *H* (12/07/21 8:12 AM) 152/72mm Hg *H* (12/07/21 8:12 AM) Respiratory Rate [16-30 br/min] 18 br/min (12/07/21 9:06 AM) 18 br/min (12/07/21 8:12 AM) 20 br/min (12/07/21 7:04 AM) Temperature [96.8-100.4 DegF] 97.6 DegF (12/07/21 7:04 AM) 97.9 DegF (12/07/21 3:24 AM) 97.8 DegF (12/06/21 11:37 PM) Mode of Delivery (Oxygen) Room air (12/07/21 3:24 AM) Room air (12/06/21 11:37 PM) Room air (12/06/21 2:54 PM) Blood pressure sites Arm, right (12/07/21 7:04 AM) Arm, left (12/07/21 3:24 AM) Arm, left (12/06/21 11:37 PM) Temperature Route Oral (12/07/21 7:04 AM) Oral (12/07/21 3:24 AM) Oral (12/06/21 11:37 PM) Dry Weight 61.6 kg (12/06/21 7:51 AM) Weight Obtained Via Standing scale (12/06/21 7:51 AM)
--- OUTSIDE RECORDS SUMMARY | 2023-07-20 23:05 | XMS_ITS | Continuity of Care Document ---
Author Name Unknown Organization [facility] ter Address [address] [place] [id number]- Care Team Providers Care Veneer Drier Feeder Name Role Phone Ashley Morales MD Primary Care Physician Encounter [facility] [place] Date(s): 12/24/22 - 12/24/[address] [address]- Encounter Diagnosis Orthostatic hypotension(Final) - 12/24/22 Dehydration(Final) - 12/24/22 Discharge Disposition: A-D/C Home Attending Physician: Sahara Macdonald MD Admitting Physician: Sahara Macdonald MD Referring Physician: Not on Staff, Referring [...] 1, tablet, By Mouth, Daily, (LAST FILLED [facility] 10/13/22), Refills 0, Maintenance, 09/18/22 16:24:00 EDT, Partial fill upon patient request if the prescription is for a schedule II opioid drug. Start Date: 09/18/22 Status: Ordered aspirin 81 mg oral delayed release tablet 81 mg, 1, tablet, By Mouth, Daily, # 30 tablet, Refills 0, Tot. Refills 0, Maintenance, 02/24/22 16:24:00 EDT, Route to Pharmacy Electronically, [facility], Partial fill upon patient request if the prescription is for a schedule II opioi... Start Date: 02/24/22 Status: Ordered BD PEN NEEDL MIS [id number] [place] BD PEN NEEDL MIS [id number] [place], 0 Refills, Maintenance, 09/18/22 15:29:00 EDT Start Date: 09/18/22 Status: Ordered cefpodoxime 100 mg oral tablet 1 tablet = 100 mg, By Mouth, Every 12 hours, for 5 days, # 10 tablet, 0 Refills, Acute 12/29/22 11:53:00 EDT, 12/24/22 11:53:00 EDT, Tablet, [facility], Partial fill upon patient request ifthe prescription is for a schedule II opioid drug.,... Start Date: 12/24/22 Stop Date: 12/29/22 Status: Ordered donepezil 5 mg oral tablet 5 mg, 1, tablet, By Mouth, Daily at bedtime, (LAST FILLED [facility] 10/12/22), Refills 0,Maintenance, 11/08/19 12:35:00 EDT Start Date: 11/08/19 Status: Ordered famotidine 40 mg oral tablet 1 tablet = 40 mg, By Mouth, Daily, (LAST FILLED [facility] 10/04/22) Start Date: 09/18/22 Status: Ordered gabapentin 100 mg oral capsule 100 mg, 1, capsule, By Mouth, 2 times a day, (LAST FILLED [facility] 10/02/22), Refills 0, Maintenance, 11/08/19 12:31:00 EDT Start Date: 11/08/19 Status: Ordered levothyroxine 0.1 mg oral tablet 1 tablet = 100 mcg, By Mouth, Daily, (LAST FILLED [facility] 10/03/22), Maintenance, 10/28/22 13:37:00 EDT, Tablet, Partial fill upon patient request if the prescription is for a schedule II opioid drug. Start Date: 10/28/22 Status: Ordered lisinopril 40 mg oral tablet 1 tablet = 40 mg, By Mouth, Daily, (LAST FILLED [facility] 09/29/22), 0 Refills, Maintenance, 12/06/21 9:32:00 EDT, Tablet, Partial fill upon patient request if the prescription is for a schedule II opioid drug. Start Date: 12/06/21 Status: Ordered Metoprolol Succinate ER 25 mg oral tablet, extended release 2 tablet = 50 mg, By Mouth, Daily, (LAST FILLED [facility] 10/12/22) Start Date: 12/06/21 Status: Ordered morphine 15 mg oral tablet, immediate release 0.5 tablet = 7.5 mg, By Mouth, Every 4 hours, PRN for pain, # 15 tablet, 0 Refills, Maintenance, 10/31/22 8:05:00 EDT, Tablet, [facility], Partial fill upon patient request if the prescription is for a schedule II opioid drug., 160, cm,... Start Date: 10/31/22 Stop Date: 11/05/22 Status: Ordered Plavix 75 mg oral tablet 75 mg, 1, tablet, By Mouth, Daily, (LAST FILLED [facility] 10/12/22), Refills 0, Maintenance, 11/08/19 12:35:00 EDT [...] 1 Refills, Maintenance, 01/27/22 10:57:00 EDT, Capsule, [facility], Partial fill upon patient request if the prescription is for a schedule II opioid drug., 160, cm, 12/07/21 7:04:00 EDT,... Start Date: 01/27/22 Status: Ordered Senna 8.6 mg oral tablet 8.6 mg, 1, tablet, By Mouth, Daily at bedtime, (LAST FILLED [facility] 10/25/22), Refills 0, Maintenance, 09/18/22 16:26:00 EDT, [...] 0 Refills, Maintenance, 10/18/22 4:27:00 EDT, Capsule, [facility], Partial fill upon patient request if the prescription is for a schedule II opioid drug., 1... Start Date: 10/18/22 Status: Ordered Vitamin B-12 1000 mcg oral tablet 1,000 mcg, 1, tablet, By Mouth, Daily, (LAST FILLED [facility] 10/06/22), Refills 0, Maintenance, 09/18/22 15:30:00 EDT, Partial fill upon patient request if the prescription is for a schedule II opioid drug. Start Date: 09/18/22 Status: Ordered Vitamin B6 100 mg oral tablet 1 tablet = 100 mg, By Mouth, Daily, (LAST FILLED [facility] 10/25/22), Maintenance, 10/28/22 13:42:00 EDT, Tablet, Partial fill upon patient request if the prescription is for a schedule II opioid drug. Start Date: 10/28/22 Status: Ordered Vitamin D3 5000 intl units oral tablet 1 tablet = 125 mcg, By Mouth, Daily, (LAST FILLED [facility] 09/29/22), 0 Refills, Maintenance, 01/26/22 23:18:00 [...] Exam Date Time Procedure Performing Provider Status 12/24/22 8:[address] Head/Brain W/O Contrast Willie Pyle hleigh; Auth (Verified) Notes: (CT Head/Brain W/O Contrast) Reason For Exam: Vertigo RESULT: CT Head/Brain W/O Contrast CT Head/Brain W/O Contrast INDICATION: Hx of Present Illness: per EMS pt reporting dizziness, scheduled for cardiac surgery soon. Pt denies CP SOB.; Reason: Vertigo; Clinical Question(s): Infarction TECHNIQUE: Noncontrast head CT using axial technique and reconstructed in axial and coronal planes.Iterative reconstruction techniques are used to optimize dose and image quality. CTDIvol Head: 44.90 mGy, DLP Head: 772 mGy*cm. COMPARISON: None. FINDINGS: Flat Knitter view findings, lines and tubes: None. BRAIN AND EXTRA-AXIAL SPACES: No parenchymal hemorrhage, midline shift, or mass effect. Bernard-white matter differentiation is wellpreserved. No acute infarct. Moderate prominence of the ventricles and sulci consistent with parenchymal volume loss. Mild low-density white matter changes. 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 No subarachnoid hemorrhage. No subdural or epidural collection. CALVARIUM, SKULL BASE, AND SOFT TISSUES: No fractures or suspicious bony lesions. Mild ethmoid air cell thickening. Paranasal sinuses are otherwise clear. Mastoid air cells are clear. Visualized orbits and globes are intact. Bilateral lens replacements. The extracranial soft tissues are unremarkable. IMPRESSION: No acute intracranial pathology. WSN: [id number] Ordering Physician: Al Flores Dictated By: Deandre Hair MD Dictated Date/Time: 12/24/22 8:24 am Reviewed By: Deandre Hair MD Signed By: Deandre Hair MD Signed Date/Time: 12/24/22 8:24 am Transcribed By: FERMIN Transcribed Date/Time: 12/24/22 8:23 am * Exam Date Time Procedure Performing Provider Status 12/24/22 2:31 AM Chest 2 Views Frontal and Lat Hiwot Mccracken; Auth (Verified) Notes: (Chest 2 Views Frontal and Lat) Reason For Exam: Shortness of Breath RESULT: Chest 2 Views Frontal and Lat Chest 2 Views Frontal and Lat Hx of Present Illness: per EMS pt reporting dizziness, scheduled for cardiac surgery soon. Pt denies CP SOB.; Reason: Shortness of Breath; Clinical Question(s): CHF COMPARISON: 09/18/2022 FINDINGS: LINES AND TUBES: Dual-lead left subclavian pacer/AICD wires are intact. LUNGS AND PLEURA: Clear lungs. Normal pulmonary vascularity. No pleural effusion. No pneumothorax. HEART, MEDIASTINUM AND YOMI: Heart is normal in size. Normal mediastinal and hilar contour. BONES AND SOFT TISSUES: No acute abnormality. IMPRESSION: No acute abnormality. WSN: [id number] Ordering Physician: Al Flores Dictated By: Mario Arreaga MD Dictated Date/Time: 12/24/22 7:03 am Reviewed By: Mario Arreaga MD Signed By: Mario Arreaga MD Signed Date/Time: 12/24/22 7:03 am Transcribed By: FERMIN Transcribed Date/Time: 12/24/22 7:02 am Vital Signs Most recent to oldest [Reference Range]: 1 2 3 Oxygen Saturation [94-100 %] 98 % (12/24/22 3:17 PM) 96 % (12/24/22 11:27 AM) 100 % (12/24/22 10:30 AM) Pulse Rate [55-90 bpm] 60 bpm (12/24/22 3:17 PM) 60 bpm (12/24/22 11:27 AM) 60 bpm (12/24/22 10:30 AM) Blood Pressure [90-138/55-84 mm Hg] 158/67mm Hg *H* (12/24/22 3:17 PM) 169/81mm Hg *H* (12/24/22 11:27 AM) 143/66mm Hg *H* (12/24/22 10:30 AM) Respiratory Rate [16-30 br/min] 14 br/min *L* (12/24/22 3:17 PM) 14 br/min *L* (12/24/22 11:27 AM) 16 br/min (12/24/22 10:30 AM) Temperature [96.8-100.4 DegF] 98.2 DegF (12/24/22 3:17 PM) 97.9 DegF (12/24/22 10:30 AM) 97.6 DegF (12/24/22 1:17 AM) Mode of Delivery (Oxygen) Room air (12/24/22 11:27 AM) Room air (12/24/22 6:06 AM) Room air (12/24/22 5:51 AM) Blood pressure sites Arm, left (12/24/22 11:27 AM) Arm, right (12/24/22 7:37 AM) Arm, right (12/24/22 7:36 AM) Temperature Route Oral (12/24/22 3:17 PM) Oral (12/24/22 10:30 AM) Oral (12/24/22 1:17 AM) Social History Social History Type Response Tobacco Use: 4 or less cigar ettes(less than 1/4 pack)/day in last 30 days. Sex Note * Guevara Núñez DO: PERFORM Event Display: Patient Education Leaflets Authored Date: Orthostatic Low Blood Pressure (Hypotension) ?? [id number] Orthostatic Low Blood Pressure (Hypotension) A blood pressure reading is made up of 2 numbers that are measured in millimeters of mercury (mmHg). There is a top number over a bottom number. The top number is the systolic pressure. The bottom number is the diastolic pressure. A normal blood pressure is a systolic pressure less than 120 mmHg over a diastolic pressure less than 80 mmHg.??Low blood pressure or hypotension is generally defined as a systolic blood pressure less than 90 mmHg. However, any drop in blood pressure greater than 40 mmHg from your normal baseline may be considered low blood pressure for you. Generally, the lower theblood pressure you have the better. However, it becomes a problem when it becomes too low and causes symptoms. Orthostatic hypotension??is a type of low blood pressure that occurs only when you change position from lying or sitting to standing. Any drop in systolic pressure of 20 mmHg or diastolic pressure of10 mm Hg when standing is significant. This drop in blood pressure can cause dizziness, lightheadedness, or fainting. Orthostatic hypotension is most commonly related to low blood volume or an abnormal neurological reflex. It's also more common as we age. However, it can be a sign of an underlying illness that may need further tests. Some medicines can cause orthostatic hypotension. These include: ??? High blood pressure medicines ??? Water pills (diuretics) ??? Some heart medicines ??? Some antidepressants ??? Pain, anxiety, sedative, and sleep medicines Other causes include: ??? Dehydration from vomiting, diarrhea, or not getting enough fluids ??? Severe infection ??? Highfever ??? Blood loss, such as bleeding from the stomach or intestines ??? Neurological diseases that affect the autonomic nervous system Treatment will depend on what is causing your low blood pressure. Home care Follow these guidelines when caring for yourself at home: ??? Rest until your symptoms get better. ??? Change positions slowly from lying to standing.??When getting out of bed, sit on the side of thebed with your legs down for at least 30 seconds before standing. This gives your body time to adjust to the position change. ??? Follow the treatment plan described by your healthcare provider. ?? Follow-up care Follow up with your healthcare provider, or as advised. ?? When to get medical advice Call your healthcare provider right away if any of these occur: ??? Mild dizziness or lightheadedness ??? Small amount of black or red color, or blood, in your stools or vomit ??? Diarrhea or vomiting that doesn???t go away ??? Not being able to eat or drink ??? Fever of 100.4??F (38??C) or higher, or as advised by your provider ??? Burning feeling when you pee??? Bad-smelling pee Call 911 Call 911, or get immediate medical care at the nearest emergency room if any of these occur: ??? Fainting; or severe dizziness or lightheadedness ??? Large amount of black or red color, or blood, in your stools or vomit ??? Abnormal chest pain or trouble breathing ?? Last Reviewed Date: 2021 ?? [employer]. All rights reserved. This information is not intended as a substitute for professional medical care. Always follow your healthcare professional's instructions. ?? * Guevara Núñez DO: PERFORM Event Display: Patient Education Leaflets Authored Date: [id number] Dehydration (Adult) ?? [id number] Dehydration (Adult) Dehydration occurs when your body loses too much fluid. This may be the result of prolonged vomiting or diarrhea, excessive sweating, or a high fever. It may also happen if you don???t drink enough fluid when you???re sick or out in the heat. Some medicines such as water pills (diuretics) can also be a cause. Symptoms include thirst, less urine than usual, and darker-colored urine. You may also feel dizzy, weak, very tired, or very drowsy. You may also have muscle aches and headache. The diet described below is usually enough to treat dehydration. In some cases, you may need medicine. Home care ??? Drink at least 12, 8-ounce glasses of fluid every day until you are no longer dehydrated. Fluid can include: o Water o Mchenry juice o Lemonade o Apple, grape, or cranberry juice o Clearfruit drinks o Electrolyte replacement and sports drinks o Tea o Decaffeinated coffee ??? Don't drink alcohol. ??? If you have been diagnosed with a kidney disease or heart failure, ask your doctor how much and what types of fluids you should drink to prevent dehydration. These diseases can cause fluid to build up in the body. This can be dangerous to your health. ??? If you have a fever, muscle aches, or a headache from a cold or flu, you may take acetaminophen, naproxen, or ibuprofen, unless another medicine was prescribed. Talk with your healthcare provider before using these medicines if y ou have chronic liver or kidney disease, or had a stomach ulcer or digestive bleeding. ?? Follow-up care Follow up with your healthcare provider as advised. ?? When to seek medical advice Call your healthcare provider right away if any of these occur: ??? Continued vomiting ??? Diarrheathat happens more than 5 times a day or mucus in diarrhea ??? Swollen belly (abdomen) or belly painthat gets worse ??? Less urine than usual or extreme thirst ??? Fever of 100.4??F (38??C) or higher, or as directed by your healthcare provider ?? Call 911 Call 911 right away if you have any of the following: ??? Weakness, dizziness, or fainting ??? Unusual drowsiness or confusion ??? Vomit or stool is red or black ?? Last Reviewed Date: 2021 ?? [id number] [employer]. All rights reserved. This information is not intended as a substitute for professional medical care. Always follow your healthcare professional's instructions. ?? Patient Care team information Care Team Personnel Name: Chase Otoole RN Position: [facility] RN Member Role: Primary Care Nurse Name: Radha Crawford Position: [facility] RN Member Role: Primary Care Nurse Name: Ashley Morales MD Position: [facility] Physician - Primary Care Member Role: PCP Address: Address: [address] [place], [place] [address] Name: Svitlana Mcgee RN Position: [facility] RN Member Role: Primary Care Nurse Name: Soraida Handy RN Position: [facility] RN Member Role: Primary Care Nurse Name: Thom Kuo RN Position: [facility] RN Member Role: Primary Care Nurse Name: Ileana Khan RN Position: [facility] RN Member Role: Primary Care Nurse Name: Becky Quezada RN Position: [facility] RN Member Role: Primary Care Nurse Name: Sara Dorantes RN Position: [facility] RN Member Role: Primary Care Nurse Name: Chelita Bailey LPN Position: [facility] RN Member Role: Primary Care Nurse Name: Hollis Momin RN Position: [facility] ED RN W/OE and Tasks Member Role: Patient Care Provider Name: Brynn Reid Position: [facility] ED TA [facility] Member Role: Cash Posting Specialist Name: Sahara Macdonald MD Position: [facility] ED Medicine MD Member Role: Admitting Physician Address: Address: [address] [place] [address] Emergency Medicine [place], [place] [address]
--- OUTSIDE RECORDS SUMMARY | 2023-07-20 23:05 | XMS_ITS | Continuity of Care Document ---
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 Start Date: 09/18/22 Status: Ordered aspirin 81 mg oral delayed release tablet 81 mg, 1, tablet, By Mouth, Daily, # 30 tablet, Refills 0, Tot. Refills 0, Maintenance, 02/24/22 16:24:00 EDT, Route to Pharmacy Electronically, [facility], Partial fill upon patient request if the prescription is for a schedule II opioi... Start Date: 02/24/22 Status: Ordered BD PEN NEEDL MIS [id number] [place] BD PEN NEEDL MIS [id number] [place], 0 Refills, Maintenance, 09/18/22 15:29:00 EDT Start Date: 09/18/22 Status: Ordered DOK sodium 100 mg oral capsule 1 capsule = 100 mg, By Mouth, 2 times a day, PRN for constipation, # 20 capsule, 0 Refills, Maintenance, 01/30/23 5:48:00 EDT, Capsule, Partial fill upon patient request if the prescription is for a schedule II opioid drug. Start Date: 01/30/23 Status: Ordered donepezil 5 mg oral tablet 5 mg, 1, tablet, By Mouth, Daily at bedtime, (LAST FILLED [facility] 10/12/22), Refills 0,Maintenance, 11/08/19 12:35:00 EDT Start Date: 11/08/19 Status: Ordered famotidine 40 mg oral tablet 1 tablet = 40 mg, By Mouth, Daily, (LAST FILLED [facility] 10/04/22) Start Date: 09/18/22 Status: Ordered gabapentin 100 mg oral capsule 100 mg, 1, capsule, By Mouth, 2 times a day, (LAST FILLED [facility] 10/02/22), Refills 0, Maintenance, 11/08/19 12:31:00 EDT Start Date: 11/08/19 Status: Ordered gabapentin 100 mg oral capsule 100 mg, Capsule, By Mouth, 01/30/23 9:00:00 EDT Start Date: 01/30/23 Stop Date: 01/30/23 Status: Completed glycerin adult rectal suppository 1 supp, Rectally, Daily, PRN for constipation, # 10 supp, 0 Refills, Maintenance, 01/30/23 5:49:00 EDT, Suppository, Partial fill upon patient request if the prescription is for a schedule II opioid drug. Start Date: 01/30/23 Status: Ordered levothyroxine 0.1 mg oral tablet 1 tablet = 100 mcg, By Mouth, Daily, (LAST FILLED [facility] 10/03/22), Maintenance, 10/28/22 13:37:00 EDT, Tablet, Partial fill upon patient request if the prescription is for a schedule II opioid drug. Start Date: 10/28/22 Status: Ordered lisinopril 20 mg oral tablet 40 mg, Tablet, By Mouth, SUZIE, 01/30/23 5:52:00 EDT Start Date: 01/30/23 Stop Date: 01/30/23 Status: Completed lisinopril 40 mg oral tablet 1 tablet = 40 mg, By Mouth, Daily, (LAST FILLED [facility] 09/29/22), 0 Refills, Maintenance, 12/06/21 9:32:00 EDT, Tablet, Partial fill upon patient request if the prescription is for a schedule II opioid drug. Start Date: 12/06/21 Status: Ordered loperamide 2 mg oral capsule 2 mg, 1, capsule, By Mouth, Every 4 hours, PRN, # 60 capsule, Refills 0, Maintenance, for loose stool, 01/30/23 5:49:00 EDT, Partial fill upon patient request if the prescription is for a schedule IIopioid drug. Start Date: 01/30/23 Status: Ordered Metoprolol Succinate ER 25 mg oral tablet, extended release 2 tablet = 50 mg, By Mouth, Daily, (LAST FILLED [facility] 10/12/22) Start Date: 12/06/21 Status: Ordered Milk of Magnesia 8% oral suspension 30 mL = 2.4 Gm, By Mouth, Daily at bedtime, PRN for constipation, # 300 mL, 0 Refills, Maintenance,01/30/23 5:50:00 EDT, Suspension, Partial fill upon patient request if the prescription is for a schedule II opioid drug. Start Date: 01/30/23 Status: Ordered Mintox By Mouth, 3 times a day after meals and bedtime, 0 Refills, Maintenance, 01/30/23 5:50:00 EDT, Partial fill upon patient request if the prescription is for a schedule II opioid drug. Start Date: 01/30/23 Status: Ordered morphine 15 mg oral tablet, immediate release 0.5 tablet = 7.5 mg, By Mouth, Every 4 hours, PRN for pain, # 15 tablet, 0 Refills, Maintenance, 10/31/22 8:05:00 EDT, Tablet, [facility], Partial fill upon patient request if the prescription is for a schedule II opioid drug., 160, cm,... Start Date: 10/31/22 Stop Date: 11/05/22 Status: Ordered Plavix 75 mg oral tablet 75 mg, 1, tablet, By Mouth, Daily, (LAST FILLED [facility] 10/12/22), Refills 0, Maintenance, 11/08/19 [...] 1 Refills, Maintenance, 01/27/22 10:57:00 EDT, Capsule, [facility], Partial fill upon patient request if the prescription is for a schedule II opioid drug., 160, cm, 12/07/21 7:04:00 EDT,... Start Date: 01/27/22 Status: Ordered Senna 8.6 mg oral tablet 8.6 mg, 1, tablet, By Mouth, Daily at bedtime, (LAST FILLED [facility] 10/25/22), Refills 0, Maintenance, 09/18/22 16:26:00 [...] 0 Refills, Maintenance, 10/18/22 4:27:00 EDT, Capsule, [facility], Partial fill upon patient request if the prescription is for a schedule II opioid drug., 1... Start Date: 10/18/22 Status: Ordered Vitamin B-12 1000 mcg oral tablet 1,000 mcg, 1, tablet, By Mouth, Daily, (LAST FILLED [facility] 10/06/22), Refills 0, Maintenance, 09/18/22 15:30:00 EDT, Partial fill upon patient request if the prescription is for a schedule II opioid drug. Start Date: 09/18/22 Status: Ordered Vitamin B6 100 mg oral tablet 1 tablet = 100 mg, By Mouth, Daily, (LAST FILLED [facility] 10/25/22), Maintenance, 10/28/22 13:42:00 EDT, Tablet, Partial fill upon patient request if the prescription is for a schedule II opioid drug. Start Date: 10/28/22 Status: Ordered Vitamin D3 5000 intl units oral tablet 1 tablet = 125 mcg, By Mouth, Daily, (LAST FILLED [facility] 09/29/22), 0 Refills, Maintenance, 01/26/22 23:18:00 EDT, [...] Exam Date Time Procedure Performing Provider Status 01/29/23 10:02 PM Chest 2 Views Frontal and Lat Michael Panchal; Auth (Verified) Notes: (Chest 2 Views Frontal and Lat) Reason For Exam: Cough RESULT: Chest 2 Views Frontal and Lat Chest 2 Views Frontal and Lat Hx of Present Illness: from rest home--was smoking cigarette, developed dizziness, sudden onset, not resolved; has been evaluated for this before pt a ox3. pt htn.; Reason: Cough; Clinical Question(s): Pneumonia COMPARISON: Multiple priors, the most recent 12/24/2022 FINDINGS: LINES AND TUBES: None. LUNGS AND PLEURA: Clear lungs. Normal pulmonary vascularity. No pleural effusion. No pneumothorax. HEART, MEDIASTINUM AND YOMI: Heart is normal in size. Dual lead cardiac pacemaker. Normal mediastinal and hilar contour. BONES AND SOFT TISSUES: No acute abnormality. IMPRESSION: No acute abnormality. WSN: [id number] Ordering Physician: Nayeli Batista Dictated By: Junito Eastman MD Dictated Date/Time: 01/29/23 10:35 p Reviewed By: Junito Eastman MD Signed By: Junito Eastman MD Signed Date/Time: 01/29/23 10:35 pm Transcribed By: FERMIN Transcribed Date/Time: 01/29/23 10:34 pm Vital Signs Most recent to oldest [Reference Range]: 1 2 3 Weight 57 kg (01/30/23 5:01 AM) 53.9 kg (01/30/23 4:00 AM) Oxygen Saturation [94-100 %] 98 % (01/30/23 11:11 AM) 100 % (01/30/23 8:28 AM) 97 % (01/30/23 4:00 AM) Pulse Rate [55-90 bpm] 60 bpm (01/30/23 11:11 AM) 60 bpm (01/30/23 8:28 AM) 60 bpm (01/30/23 4:00 AM) Blood Pressure [90-138/55-84 mm Hg] 128/58mm Hg (01/30/23 11:11 AM) 164/68mm Hg *H* (01/30/23 8:28 AM) 146/58mm Hg *H* (01/30/23 6:27 AM) Respiratory Rate [16-30 br/min] 18 br/min (01/30/23 11:11 AM) 18 br/min (01/30/23 8:59 AM) 17 br/min (01/30/23 8:28 AM) Temperature [96.8-100.4 DegF] 97.5 DegF (01/30/23 11:11 AM) 97.5 DegF (01/30/23 8:28 AM) 97.8 DegF (01/30/23 4:00 AM) Mode of Delivery (Oxygen) Room air (01/30/23 11:11 AM) Room air (01/30/23 8:28 AM) Room air (01/30/23 4:00 AM) Blood pressure sites Arm, left (01/30/23 11:11 AM) Arm, left (01/30/23 8:28 AM) Arm, left (01/30/23 4:00 AM) Temperature Route Oral (01/30/23 11:11 AM) Oral (01/30/23 8:28 AM) Oral (01/30/23 4:00 AM) Dry Weight 57 kg (01/30/23 5:01 AM) Social History Social History Type Response Tobacco Use: 4 or less cigar ettes(less than 1/4 pack)/day in last 30 days. Sex Admission evaluation note * Spencer Gilliland DO: PERFORM, MODIFY, MODIFY, MODIFY Event Display: Admission Note Authored Date: [id number] Patient: ??SARA CARTER ? Age:??77 Years?Sex:??Female?:??1945?? Chief Complaint/Reason for Consultation dizziness, sudden onset, numerous evals for the same History of Present Illness Per mPage: 77 y/o F PMH CAD, HTN, HLD, SSS s/p PPM presents with lightheadedness, near syncope. Vitals stable, labs unremarkable but UA just returned with hematuria - no stone or infectious symptoms,ED sending for culture. Admit for near syncope. ?? Ms. Sara Pedraza??Raul is a 77-year-old lady with medical history notable for mild dementia, constipation, hypertension, hypothyroidism, coronary disease, hyperlipidemia, hydronephrosis, nephrolithiasis, diabetes, aortic aneurysm, sick sinus syndrome status post pacemaker placement who presents to the emergency department in the setting of lightheadedness and headache. ?? Ms. Carter currently resides at a [facility] correction and had just returned inside from the [place]??with plan to sit down for dinner, however she soon became lightheaded with pain in the back of herneck on the right side. ??This was associated with an unsteadiness, though she denies an overt sensation of the room spinning. ??This has happened to her in the past, and in fact she has been evaluated here at [facility] for such things. ??She does not recall what her blood pressure was when staff took this at the nursing facility. ??Ultimately, it was felt that she would benefit from further medical care at [facility]. ??Prior to this, she states that she had been doing well. ??Initially she notes that she had been eating and drinking well, though later in our conversation notes that she had not had anything since breakfast. ??She also notes that had been a hot and sticky day aswell. ??When evaluated for admission, does feel much better and is asking for a peanut butter and jelly sandwich. ??With regard to the meclizine she received in the emergency department, she states that it made her feel very gassy and references a number of medication allergies she has. ??Do not believe that this is a true allergy, perhaps intolerance or entirely unrelated. ?? Vitals in the emergency department notable for blood pressure as high as 214/71 mmHg. ??Otherwise they were stable. ??EKG with incomplete right bundle branch block, QTc 5 3 6 ms. ??Heart rate 60 bpm.??This is consistent with prior. ??Labs were not concerning with exception of urinalysis with 3+ hemoglobin, 2+ leukocyte, 44 WBC, >182 BC and slight bacteria. ??States that she does not have any symptoms of urinary tract infection and that she has had hematuria in the past, though this may needto be investigated further. ??As noted in the emergency department, had received meclizine, metoclopramide, morphine, and a bolus of LR with good effect. ??Her symptoms have essentially abated, though she does have some residual neck pain when evaluated in the emergency department.?? Imaging of thehead was deferred in the emergency department, due to recent??similar presentation??during which she was rehydrated and treated symptomatically??before discharging home. ??During that time CT head was done which was not concerning. ?? Review of Systems A full review of systems was completed and is otherwise negative except as mentioned in history of present illness. Objective Vital Signs?? Temperature: 97.8 DegF (01/30/23 04:00:00) Temperature Route: Oral (01/30/23 04:00:00) Pulse Rate: 60 bpm (01/30/23 04:00:00) Respiratory Rate: 18 br/min (01/30/23 06:27:00) Systolic Blood Pressure:??146 mm Hg??High (01/30/23 06:27:00) Diastolic Blood Pressure: 58 mm Hg (01/30/23 06:27:00) Blood pressure sites: Arm, left (01/30/23 04:00:00) Mean Arterial Pressure: 119 mm Hg (01/30/23 02:35:00) Pulse Pressure: 105 mm Hg (01/30/23 04:00:00) Oxygen Saturation: 97 % (01/30/23 04:00:00) Mode of Delivery (Oxygen): Room air (01/30/23 04:00:00) Early Warning Score: 2 (01/30/23 06:31:18) ? Physical Exam General:??Alert, in no acute cardiopulmonary distress. Mental Status:??Normal affect. Responding appropriately to questions. Does exhibit slight dementia. HEENT:??Normocephalic. Respiratory:??Clear to auscultation. No wheezing, rales or rhonchi. Cardiovascular:??Regular rate and rhythm, no murmurs, rubs, or gallops.?? Gastrointestinal:??Abdomen soft, nontender, nondistended, bowel tones present. No hepatosplenomegaly appreciated. Neurologic:??Cranial nerves II-XII grossly intact. Moves all extremities spontaneously. Extremities:??No edema. Musculoskeletal:??No gross deformities. Assessment/Plan Assessment:??Ms. Sara Carter is a 77-year-old lady with medical history notable for mild dementia, constipation, hypertension, hypothyroidism, coronary disease, hyperlipidemia, hydronephrosis, nephrolithiasis, diabetes, aortic aneurysm, sick sinus syndrome status post pacemaker placement who presents to the emergency department in the setting of lightheadedness and headache.?[facility] consistent with??hypertensive urgency, however little other else. Differential at this time??includes dehydration,??orthostatic hypotension,??blood pressure lability,??and complex migraine. Now admitted for further evaluation and management. ?? Headache (R51.9):?? Near syncope (R55):?? Hypertensive urgency (I16.0):?? Presented with recurrent episode of??unsteadiness associated with neck/head pain.?? Recently seen in the emergency department for the same. Differential includes complex migraine, dehydration,??cardiac??event related to sick sinus syndrome,??orthostatic hypotension, blood pressure lability. Patient now feels much better,??admitted for observation.?? May need pacemaker interrogation, orthostatic vital signs, and better blood pressure control. ?? 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 EKG as needed for rhythm changes ?Consider pacemaker interrogation ??? Orthostatic vital signs ?Optimize blood pressure control -- Resume home medications to start ?Pain control with morphine ?Avoid meclizine, not listed as allergy ?? Diabetes mellitus (E11.9):?? On??insulin outpatient, will dial back??long-acting insulin while inpatient, due to decreased oral intake. ?? Plan: ?Insulin glargine??14 units nightly ??? Insulin/scale/POC glucose ?? Sick sinus syndrome (I49.5):?? This currently appears stable, though could be factoring into??patient's presenting symptoms. ?? 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 Consider interrogation ?? Hematuria (R31.9):??x Microscopic hematuria noted on??urinalysis. Could be related to nephrolithiasis. No other??concerning findings nor symptoms. May need further outpatient evaluation. ?? Chronic and/or Stable Medical Conditions: Constipation (K59.00):??Bowel regimen in place Hypothyroid (E03.9):??Home regimen Coronary artery disease (I25.10):??Home regimen ?? Quality Measures: VTE Prophylaxis:??PCB until BP better controlled Code Status:??Full Code, MOLST in paper chart Ongoing Medical Necessity:??Evaluation of headache, lightheadedness Discharge Planning:??Pending further evaluation Family: Daughter, attempted to contact via phone. No answer, voicemail left. Patient seen and evaluated 01/30/2023. ? Histories Allergies Allergies ?(Active and Proposed [...] Surgical History No surgery history documented. ? Family History No family history recorded. ? Social History Currently resides in correction Previously lived in [facility] ?? Medications Home Medications Acetaminophen (Tylenol 325 mg oral capsule)?2?capsule?650?Milligram?By Mouth?Every 4 hours?as needed?as needed for fever Al Hydroxide/Mg Hydroxide/Simethicone (Mintox)?By Mouth?3 times a day after meals and bedtime Allopurinol (allopurinol 100 mg oral tablet)?100?Milligram?1?tablet?By Mouth?Daily?(LAST FILLED [facility] 10/13/22) Aspirin (aspirin 81 mg oral delayed release tablet)?81?Milligram?1?tablet?By Mouth?Daily Cholecalciferol (Vitamin D3 5000 intl units oral tablet)?1?tab(s)?125?Microgram?By Mouth?Daily?(LAST FILLED [facility] 09/29/22) Clopidogrel (Plavix 75 mg oral tablet)?75?Milligram?1?tablet?By Mouth?Daily?(LAST FILLED [facility] 10/12/22) Cyanocobalamin (Vitamin B-12 1000 mcg oral tablet)?1,000?Microgram?1?tablet?By Mouth?Daily?(LAST FILLED [facility] 10/06/22) Docusate (DOK sodium 100 mg oral capsule)?1?capsule?100?Milligram?By Mouth?2 times a day?as needed?for constipation Donepezil (donepezil 5 mg oral tablet)?5?Milligram?1?tablet?By Mouth?Daily at bedtime?(LAST FILLED [facility] 10/12/22) Famotidine (famotidine 40 mg oral tablet)?1?tab(s)?40?Milligram?By Mouth?Daily?(LAST FILLED [facility] 10/04/22) Gabapentin (gabapentin 100 mg oral capsule)?100?Milligram?1?capsule?By Mouth?2 times a day?(LAST FILLED [facility] 10/02/22) Glycerin (glycerin adult rectal suppository)?1?suppository(ies)?Rectally?Daily?as needed?for constipation insulin degludec (Tresiba FlexTouch 100 units/mL subcutaneous solution)?18?unit(s)?Subcutaneous Infusion?Daily at bedtime Levothyroxine (levothyroxine 0.1 mg oral tablet)?1?tab(s)?100?Microgram?By Mouth?Daily?(LAST FILLED [facility] 10/03/22) Lisinopril (lisinopril 40 mg oral tablet)?1?tab(s)?40?Milligram?By Mouth?Daily?(LAST FILLED [facility] 09/29/22) Loperamide (loperamide 2 mg oral capsule)?2?Milligram?1?capsule?By Mouth?Every 4 hours?as needed?for loose stool Metoprolol (Metoprolol Succinate ER 25 mg oral tablet, extended release)?2?tab(s)?50?Milligram?By Mouth?Daily?(LAST FILLED [facility] 10/12/22) Milk of Magnesia (Milk of Magnesia 8% oral suspension)?30?Milliliter?2.4?gram?By Mouth?Daily at bedtime?as needed?for constipation Morphine (morphine 15 mg oral tablet, immediate release)?0.5?tab(s)?7.5?Milligram?ByMouth?Every 4 hours?as needed?for pain?for 5?Days Polyethylene Glycol 3350 (polyethylene glycol 3350 oral powder for reconstitution)?17?gram?By Mouth?2 times a day?as needed?Constipation?dissolve in water or juice before taking Pyridoxine (Vitamin B6 100 mg oral tablet)?1?tab(s)?100?Milligram?By Mouth?Daily?(LAST FILLED [facility] 10/25/22) Rosuvastatin (rosuvastatin 20 mg oral capsule)?1?capsule?20?Milligram?By Mouth?Daily Senna (Senna 8.6 mg oral tablet)?8.6?Milligram?1?tab(s)?By Mouth?Daily at bedtime?(LAST FILLED [facility] 10/25/22) ? EKG study * Event Display: ECG 12-Lead Authored Date: Please click on pdf link to open report * Event Display: ECG 12-Lead Authored Date: Ventricular Rate: 60 BPM Atrial Rate: 60 BPM P-R Interval: 232 ms QRS Duration: 110 ms Q-T Interval: 536 ms QTC Calculation(Bazett): 536 ms R [place]: -22 degrees T [place]: 102 degrees Atrial-paced rhythm with prolonged AV conduction Incomplete right bundle branch block Minimal voltage criteria for LVH, may be normal variant ( Roberto product ) Inferior infarct (cited on or before 09-NOV-2022) Prolonged QT Abnormal ECG When compared with ECG of 09-NOV-2022 19:31, Nonspecific T wave abnormality no longer evident in Inferior leads Confirmed by AGAPITO JONES ([id number]) on 01/30/2023 6:40:40 AM Vevay: AGAPITO JONES Cardiology * Event Display: Cardiac Rhythm Strips Authored Date: Hospital Progress note * Chip Colon RN: PERFORM, SIGN, VERIFY Event Display: Progress Note Hospital Authored Date: [id number] Patient: SARA CARTER Age: 77 years Sex: Female : 1945 Associated Diagnoses: None Author: Chip Colon RN Findings Pt was discharged from b. IV removed. Medications reviewed. Education completed. Pt left unit in wheelchair. Paperwork signed and placed in chart. Discharge Information Case Management Discharge Plan : Case Management Discharge Plan Data 01/30/2023 9:48 EDT Discharge Level of Care at Discharge Home/Detention/Foster Care * Yessica Koch RN: PERFORM, SIGN, VERIFY Event Display: Progress Note Hospital Authored Date: [id number] Patient: SARA CARTER Age: 77 years Sex: Female : 1945 Associated Diagnoses: None Author: Yessica Koch RN Findings Narrative/Incidental Patient assessed at 0500, able to ambulate with steady gait to unit bed, no complaints made at thistime, patient A/Ox4 following commands appropriately, denies dizziness, afebrile, VS WNL. Respiration even and unlabored on RA, LS CTA, denies SOB, educated on IS use and able to return demonstration. Apace, AV paced on tele, denies chest pain, +pp and CMS on all extremities, no edema. Patient tolerates PO intake without difficulty, denies N/V/D, ABD soft, nontender, +BS to all quads. Patient denies dysuria, voiding in BR, meds administered per order. Educated patient on the plan of care and call garay use, fall risk precaution in place. Call garay within reach. Will continue to monitor as needed.. Note * Chip Colon RN: PERFORM Event Display: Discharge/Transfer Note Hospital Authored Date: [id number] Nursing Discharge Note Entered On: 01/30/2023 9:48 EDT Performed On: 01/30/2023 9:48 EDT by Chip Colon RN Nursing Discharge Note 2 Discharge Time : 01/30/2023 13:32 EDT Chip Colon RN - 01/30/2023 13:32 EDT Discharge Level of Care at Discharge : Home/Detention/Foster Care Patient Left Unit Via : Wheelchair Patient Accompanied Off Unit with : Responsible adult DC Instructions Provided & Signed by Pt : Yes Patient Understands D/C Instructions : Yes Patient Instructions Discharge Signed : Yes Did Pt have Specialty Bed or Wound Vac : No Chip Colon RN - 01/30/2023 9:48 EDT * Juan Huerta MD: PERFORM Event Display: Discharge/Transfer Note Hospital Authored Date: [id number] Patient: ??SARA CARTER ? Age:??77 Years?Sex:??Female?:??1945?? Patient Information Discharge Location: B Primary Care Physician: Ashley Morales MD Admit Date/Time: 01/29/23 18:12 Discharge Disposition Discharge Disposition: ?? Discharge Diagnosis Constipation (K59.00) Coronary artery disease (I25.10) Diabetes mellitus (E11.9) Headache (R51.9) Hematuria (R31.9) Hypertensive urgency (I16.0) Hypothyroid (E03.9) Near syncope (R55) Sick sinus syndrome (I49.5) HTN (hypertension) Hypothyroidism ?? _ Discharge Medications Acetaminophen (Tylenol 325 mg oral capsule)?2?capsule?650?Milligram?By Mouth?Every 4 hours?as needed?as needed for fever Al Hydroxide/Mg Hydroxide/Simethicone (Mintox)?By Mouth?3 times a day after meals and bedtime Allopurinol (allopurinol 100 mg oral tablet)?100?Milligram?1?tablet?By Mouth?Daily?(LAST FILLED [facility] 10/13/22) Aspirin (aspirin 81 mg oral delayed release tablet)?81?Milligram?1?tablet?By Mouth?Daily Cholecalciferol (Vitamin D3 5000 intl units oral tablet)?1?tab(s)?125?Microgram?By Mouth?Daily?(LAST FILLED [facility] 09/29/22) Clopidogrel (Plavix 75 mg oral tablet)?75?Milligram?1?tablet?By Mouth?Daily?(LAST FILLED [facility] 10/12/22) Cyanocobalamin (Vitamin B-12 1000 mcg oral tablet)?1,000?Microgram?1?tablet?By Mouth?Daily?(LAST FILLED [facility] 10/06/22) Docusate (DOK sodium 100 mg oral capsule)?1?capsule?100?Milligram?By Mouth?2 times a day?as needed?for constipation Donepezil (donepezil 5 mg oral tablet)?5?Milligram?1?tablet?By Mouth?Daily at bedtime?(LAST FILLED [facility] 10/12/22) Famotidine (famotidine 40 mg oral tablet)?1?tab(s)?40?Milligram?By Mouth?Daily?(LAST FILLED [facility] 10/04/22) Gabapentin (gabapentin 100 mg oral capsule)?100?Milligram?1?capsule?By Mouth?2 times a day?(LAST FILLED [facility] 10/02/22) Glycerin (glycerin adult rectal suppository)?1?suppository(ies)?Rectally?Daily?as needed?for constipation insulin degludec (Tresiba FlexTouch 100 units/mL subcutaneous solution)?18?unit(s)?Subcutaneous Infusion?Daily at bedtime Levothyroxine (levothyroxine 0.1 mg oral tablet)?1?tab(s)?100?Microgram?By Mouth?Daily?(LAST [facility]ED [facility] 10/03/22) Lisinopril (lisinopril 40 mg oral tablet)?1?tab(s)?40?Milligram?By Mouth?Daily?(LAST [facility]ILLED [facility] 09/29/22) Loperamide (loperamide 2 mg oral capsule)?2?Milligram?1?capsule?By Mouth?Every 4 hours?as needed?for loose stool Metoprolol (Metoprolol Succinate ER 25 mg oral tablet, extended release)?2?tab(s)?50?Milligram?By Mouth?Daily?(LAST [facility]ILLED [facility] 10/12/22) Milk of Magnesia (Milk of Magnesia 8% oral suspension)?30?Milliliter?2.4?gram?By Mouth?Daily at bedtime?as needed?for constipation Morphine (morphine 15 mg oral tablet, immediate release)?0.5?tab(s)?7.5?Milligram?ByMouth?Every 4 hours?as needed?for pain?for 5?Days Polyethylene Glycol 3350 (polyethylene glycol 3350 oral powder for reconstitution)?17?gram?By Mouth?2 times a day?as needed?Constipation?dissolve in water or juice before taking Pyridoxine (Vitamin B6 100 mg oral tablet)?1?tab(s)?100?Milligram?By Mouth?Daily?(LAST [facility]ILLED [facility] 10/25/22) Rosuvastatin (rosuvastatin 20 mg oral capsule)?1?capsule?20?Milligram?By Mouth?Daily Senna (Senna 8.6 mg oral tablet)?8.6?Milligram?1?tab(s)?By Mouth?Daily at bedtime?(LAST [facility]ILLED [facility] 10/25/22) ? Objective Assessment and Plan Constipation (K59.00):??77-year-old lady with medical history notable for mild dementia, constipation, hypertension, hypothyroidism, coronary disease, hyperlipidemia, hydronephrosis, nephrolithiasis,diabetes, aortic aneurysm, sick sinus syndrome status post pacemaker placement??with??complaint of d izziness,??by the time I saw her in the morning all her symptoms were resolved she was alert oriented??without any dizziness or weakness.. ? Headache (R51.9):?? Patient has resolved no blurry vision no neurological deficit Blood pressure was also elevated on admission improved after administering medications Takes 40 mg of lisinopril Diabetes mellitus (E11.9):?? Continue on??home medication without any changes ? Sick sinus syndrome (I49.5):?? Status post pacemaker ? Chronic and/or Stable Medical Conditions: ??Constipation (K59.00): Bowel regimen in place Hypothyroid (E03.9): Home regimen Coronary artery disease (I25.10): Home regimen Disposition, home ?? Discharge Planning:? Vital Signs?? Temperature: 97.5 DegF (01/30/23 08:28:00) Temperature Route: Oral (01/30/23 08:28:00) Pulse Rate: 60 bpm (01/30/23 08:28:00) Respiratory Rate: 17 br/min (01/30/23 08:28:00) Systolic Blood Pressure:??164 mm Hg??High (01/30/23 08:28:00) Diastolic Blood Pressure: 68 mm Hg (01/30/23 08:28:00) Blood pressure sites: Arm, left (01/30/23 08:28:00) Mean Arterial Pressure: 100 mm Hg (01/30/23 08:28:00) Pulse Pressure: 96 mm Hg (01/30/23 08:28:00) Oxygen Saturation: 100 % (01/30/23 08:28:00) Mode of Delivery (Oxygen): Room air (01/30/23 08:28:00) Early Warning Score: 2 (01/30/23 08:29:04) ? . Physical Exam General: [Alert, in no acute cardiopulmonary distress.] Mental Status: [Oriented to person, place and time. Normal affect.] Head: [Normocephalic.] Eyes: [Pupils are equal, round and reactive to light. Extraocular muscles intact.] Ear, Nose and Throat: [Oropharynx clear, mucous membranes moist. Ears and nose without masses, lesions or deformities. Tympanic membranes clear bilaterally. Trachea midline.] Neck: [Supple, Full range of motion.] Respiratory: [Clear to auscultation and percussion. No wheezing, rales or rhonchi.] Cardiovascular: [Heart sounds normal. No thrills. Regular rate and rhythm, no murmurs, rubs or gallops.] Gastrointestinal: [Abdomen soft, non-tender, non-distended. Normal bowel sounds. No pulsatile mass.No hepatosplenomegaly.] Genitourinary: [No costovertebral angle tenderness.] Neurologic: [Cranial nerves II-XII grossly intact. No focal neurological deficits. Deep tendon reflexes +2 bilaterally. Flexor plantar response. Moves all extremities spontaneously. Sensation intact bilaterally.] Skin: [No rashes or lesions. No petechiae or purpura. No edema.] Musculoskeletal: [No cyanosis or clubbing. No gross deformities. Normal range of motion.] Lymphatics: [Palpation of neck reveals no swelling or tenderness of neck nodes. Palpation of groin reveals no swelling or tenderness of groin nodes.] Psychiatric: [Not anxious fully cooperative following commands.] Pending Results Add On Lab Order ordered on 01/30/2023 Add On Lab Order ordered on 01/30/2023 Urine Culture ordered on 01/30/2023 Follow-Up Appointments Added Follow Up ?Time Frame ?Comments Ashley Morales MD?1-2 day: call to discuss follow up visit Patient Instructions DIAGNOSIS: lightheadedness You were seen and evaluated in the emergency department for your symptoms. ??We gave you medications that seem to make you feel better. ?? TEST RESULTS: Chest x-ray was done. ??Labs were done and normal. ? Your specific PATIENT CARE INSTRUCTIONS (what to do / when to return): Please return to the emergency department for fevers, chills, nausea, vomiting, chest pain, shortness of breath, numbness, tingling, weakness, feeling like you might pass out,??or any other new or concerning symptoms you may develop. ? MEDICATIONS (what medications you should start (or stop) taking): Take your home medications as directed Post Discharge Care Discharge ?01/30/23 8:38:00 EDT Home Health Face to Face ^HomeHealthFTF Results Discharge Labs BLOOD COUNT & DIFF WBC 9.7 k/mm3 ()?? 01/29/2023 20:51 RBC 4.80 m/mm3 ()?? 01/29/2023 20:51 Hgb 13.9 Gm/dL ()?? 01/29/2023 20:51 Hct 44.1 % ()?? 01/29/2023 20:51 MCV 91.9 femtoliters ()?? 01/29/2023 20:51 MCH 29.0 pg ()?? 01/29/2023 20:51 MCHC 31.5 g/dL (Low)?? 01/29/2023 20:51 Platelet Count 207 k/mm3 ()?? 01/29/2023 20:51 RDW-SD 50.6 femtoliters (High)?? 01/29/2023 20:51 MPV 9.7 femtoliters ()?? 01/29/2023 20:51 Nucleated RBC (Automated) 0.0 #/100 WBC'S ()?? 01/29/2023 20:51 Abs. NRBC 0.0 k/mm3 ()?? 01/29/2023 20:51 Abs. Neut 6.2 k/mm3 ()?? 01/29/2023 20:51 Abs. Lymph 2.8 k/mm3 ()?? 01/29/2023 20:51 Abs. Hoke 0.5 k/mm3 ()?? 01/29/2023 20:51 Abs. Eo 0.1 k/mm3 ()?? 01/29/2023 20:51 Abs. Baso 0.1 k/mm3 ()?? 01/29/2023 20:51 Neut % 64.2 % ()?? 01/29/2023 20:51 Lymph % 28.8 % ()?? 01/29/2023 20:51 Hoke % 5.0 % ()?? 01/29/2023 20:51 Eos % 1.0 % ()?? 01/29/2023 20:51 Baso % 0.7 % ()?? 01/29/2023 20:51 Imm Gran 0.3 % ()?? 01/29/2023 20:51 Abs. Imm Gran 0.0 k/mm3 ()?? 01/29/2023 20:51 ?? CHEM GENERAL Sodium 144 mmol/L ()?? 01/29/2023 20:51 Potassium 4.3 mmol/L ()?? 01/29/2023 20:51 Chloride 107 mmol/L ()?? 01/29/2023 20:51 Bicarbonate Level 25 mmol/L ()?? 01/29/2023 20:51 Anion Gap 12 ()?? 01/29/2023 20:51 Glucose Level 118 mg/dL (High)?? 01/29/2023 20:51 Glucose, POC 165 mg/dL (High)?? 01/30/2023 05:41 BUN 19 mg/dL ()?? 01/29/2023 20:51 Creatinine-Blood 0.7 mg/dL ()?? 01/29/2023 20:51 Estimated GFR Creatinine 82 ML/MIN/1.73 M2 ()?? 01/29/2023 20:51 Calcium 9.5 mg/dL ()?? 01/29/2023 20:51 Magnesium 2.1 mg/dL ()?? 01/29/2023 20:51 Protein, Total 6.3 Gm/dL ()?? 01/29/2023 20:51 Albumin 3.9 Gm/dL ()?? 01/29/2023 20:51 AG Ratio 1.6 ()?? 01/29/2023 20:51 Alkaline Phosphatase 97 units/L ()?? 01/29/2023 20:51 AST (SGOT) 20 units/L ()?? 01/29/2023 20:51 ALT (SGPT) 16 units/L ()?? 01/29/2023 20:51 Bilirubin, Total 0.2 mg/dL ()?? 01/29/2023 20:51 ? COAG INR 1.1 ()?? 01/29/2023 20:51 Protime (PT) 11.4 seconds ()?? 01/29/2023 20:51 APTT 26.0 seconds ()?? 01/29/2023 20:51 ? ENDOCRINE/TUMOR MARKER TSH 0.06 uIU/mL (Low)?? 01/29/2023 20:51 Free T4 1.55 ng/dL ()?? 01/29/2023 20:51 ?? UA/URINALYSIS Appear/Color, Urine LIGHT BROWN ()?? 01/30/2023 00:50 Specific Crandall, Urine 1.014 ()?? 01/30/2023 00:50 pH, Urine 6.0 ()?? 01/30/2023 00:50 Albumin, Urine 1+ (Abnormal)?? 01/30/2023 00:50 Glucose, Urine NEGATIVE (N)?? 01/30/2023 00:50 Ketones, Urine NEGATIVE (N)?? 01/30/2023 00:50 Bilirubin, Urine NEGATIVE (N)?? 01/30/2023 00:50 Hemoglobin, Urine 3+ (Abnormal)?? 01/30/2023 00:50 Nitrite, Urine NEGATIVE (N)?? 01/30/2023 00:50 Leukocyte, Urine 2+ (Abnormal)?? 01/30/2023 00:50 Urobilinogen NORMAL mg/dL (N)?? 01/30/2023 00:50 WBC's, Urine 44 /HPF (High)?? 01/30/2023 00:50 RBC's, Urine >182 /HPF (High)?? 01/30/2023 00:50 Bacteria SLIGHT HPF (Abnormal)?? 01/30/2023 00:50 Squamous Epith 16 /HPF (High)?? 01/30/2023 00:50 Mucus SLIGHT /LPF ()?? 01/30/2023 00:50 Hold Urine Culture Testing available 48 hours from time of collection. ()?? 01/30/2023 00:50 ? VIROLOGY COVID-19 by RT-PCR NEGATIVE ()?? 01/29/2023 21:08 ? Microbiology ?? COVID-19 (Novel Coronavirus), Rapid PCR?? Completed?? Source: Nasal Body Site: Nose Collected Dt/Tm: 01/29/2023 19:51 Last Updated Dt/Tm: 01/29/2023 22:26 ? 25??minutes spent on discharge * Chip Colon RN: PERFORM Event Display: Patient Education/Instruction Authored Date: [id number] Inpatient Adult Discharge Instructions [address] [address] Name: SARA CARTER : 1945 Visit: 01/29/2023 18:12:00 Current Date: 01/30/2023 09:48 Account: [id number] Inpatient Adult Discharge Instructions We would like [...] and their families. Surveys are administered by [employer]. ?? If further treatment with your primary care physician or another doctor is recommended, it is important for you to keep the appointment. Call your primary care physician or return to the Emergency Department immediately if your condition worsens, fails to improve, or new symptoms develop. If you need to find a doctor, you can call [facility] [employer] for a referral at [phone] or toll free at [phone] or log in to [email or web address].. ?? [facility], in keeping with [facility] guidance, no longer requires face masks for staff, patientsor visitors in most situations. Similiar to time spent indoors at other locations, there is the chance that you were exposed to repiratory viruses during your time with us (such as flu or COVID-19). If you develop symptoms concerning for a viral respiratory infection, please seek testing (and treatment if indicated) from your medical provider or home test kit. ?? You can view and manage your care through the patient portal or by using a health care rosalio of your choosing. [employer] is a website that allows you to securely view your medical information including your hospital discharge summary, office visit summaries, medications and follow-up visits. You can also request appointments, renew medications, and request access to your medical information using a health care rosalio of your choosing, or just ask a question. You can enroll at [email or web address] or register during your next office visit. You have been discharged from [facility], Patient Care Unit: D3B. If you have any questions regarding these instructions after you leave, please call us and we will be happy to assist you. [facility] Your Care Team Attending Physician Deanna LORA, Juan Consulting Providers Deanna LORA, Juan Discharging Providers Juan Huerta MD Reason for Admission dizziness, sudden onset, numerous evals for the same Your Diagnosis Near syncope Headache Hypertensive urgency Hematuria Coronary artery disease Diabetes mellitus Sick sinus syndrome Hypothyroid Constipation Tests Performed Below is a partial list of the tests performed during your hospitalization. You may have had other tests and procedures not included in this list. Please discuss all test results with your provider. CBC w/ Differential Comprehensive Metabolic Panel COVID-19 (Novel Coronavirus), Rapid PCR FREE T4 GLUCOSE POC INR MAGNESIUM PTT TSH with T4 Reflex (Adults Only) Urinalysis w/hold for Urine Culture CXR W/ Frontal and Lat Primary Care Provider Ashley Morales MD Advance Directive Health Care Proxy on File Yes - Health Care Proxy Yes - [facility]OL[facility] Discharge Vitals Temperature: 97.5 DegF Weight: 57 kg Pulse Rate: 60 bpm ?? Respiratory Rate: 17 br/min ?? Systolic Blood Pressure:??164 mm Hg??High ?? Diastolic Blood Pressure: 68 mm Hg ?? Oxygen Saturation: 100 % ?? Studies Pending All tests and labs ordered during this hospital stay have been completed unless listed below. Please discuss all pending results with your provider listed above in these instructions. ?? Add On Lab Order Urine Culture What to do next Instructions From Your Doctor DIAGNOSIS: lightheadedness You were seen and evaluated in the emergency department for your symptoms. ??We gave you medications that seem to make you feel better. ?? TEST RESULTS: Chest x-ray was done. ??Labs were done and normal. ? Your specific PATIENT CARE INSTRUCTIONS (what to do / when to return): Please return to the emergency department for fevers, chills, nausea, vomiting, chest pain, shortness of breath, numbness, tingling, weakness, feeling like you might pass out,??or any other new or concerning symptoms you may develop. ? MEDICATIONS (what medications you should start (or stop) taking): Take your home medications as directed Discharge Orders You Need to Schedule the Following Appointments Follow Up with??Ashley Morales MD When:??Within 1-2 day: call to discuss follow up visit Where: [address] [facility] [place] [address]- Discharge Medications SARA CARTER :1945 Visit Date:01/29/2023 Medications: Please continue your medications until treatment is completed or stopped by your provider. Medications not listed below should be discontinued. Discuss any questions related to medications with your provider. What How Much When Instructions Next Dose Unchanged Acetaminophen (Tylenol 325 mg oral capsule) 2 capsule Oral Every 4 hours as needed for as needed for fever anytime as needed Unchanged Al Hydroxide/ Mg Hydroxide/ Simethicone (Mintox) Oral 3 times a day after meals and bedtime resume home schedule Unchanged Allopurinol (allopurinol 100 mg oral tablet) 1 tab(s) Oral Daily (LAST [facility]ILLED [facility] ) ?? tomorrow, resume home schedule Unchanged Aspirin (aspirin 81 mg oral delayed release tablet) 1 tab(s) Oral Daily tomorrow, resume home schedule Unchanged Cholecalciferol (Vitamin D3 5000 intl units oral tablet) 1 tab(s) Oral Daily (LAST [facility] ) ?? tomorrow, resume home schedule Unchanged Clopidogrel (Plavix 75 mg oral tablet) 1 tab(s) Oral Daily (LAST [facility]ILLED [facility] ) ?? tomorrow, resume home schedule Unchanged Cyanocobalamin (Vitamin B-12 1000 mcg oral tablet) 1 tab(s) Oral Daily (LAST [facility] ) ?? tomorrow, resume home schedule Unchanged Docusate (DOK sodium 100 mg oral capsule) 1 capsule Oral Twice a day as needed for for constipation as needed Unchanged Donepezil (donepezil 5 mg oral tablet) 1 tab(s) Oral Daily at Bedtime (LAST [facility] ) ?? bedtime Unchanged Famotidine (famotidine 40 mg oral tablet) 1 tab(s) Oral Daily (LAST [facility] ) ?? tomorrow, resume home schedule Unchanged Gabapentin (gabapentin 100 mg oral capsule) 1 capsule Oral Twice a day (LAST [facility] ) ?? resume home schedule Unchanged Glycerin (glycerin adult rectal suppository) 1 suppository(ies) Per rectum Daily as needed for for constipation as needed Unchanged insulin degludec (Tresiba FlexTouch 100 units/ mL subcutaneous solution) 18 unit(s) Subcutaneous Infusion Daily at Bedtime bedtime Unchanged Levothyroxine (levothyroxine 0.1 mg oral tablet) 1 tab(s) Oral Daily ([facility] ) ?? tomorrow, resume home schedule Unchanged Lisinopril (lisinopril 40 mg oral tablet) 1 tab(s) Oral Daily ([facility] ) ?? tomorrow, resume home schedule Unchanged Loperamide (loperamide 2 mg oral capsule) 1 capsule Oral Every 4 hours as needed for for loose stool as needed Unchanged Metoprolol (Metoprolol Succinate ER 25 mg oral tablet, extended release) 2 tab(s) Oral Daily ([facility] ) ?? tomorrow, resume home schedule Unchanged Milk of Magnesia (Milk of Magnesia 8% oral suspension) 30 Milliliter Oral Daily at Bedtime as needed for for constipation as needed Unchanged Miscellaneous Rx (BD PEN NEEDL MIS [id number] [place]) Unchanged Morphine (morphine 15 mg oral [...] tablet) 1 tab(s) Oral Daily ([facility] ) ?? tomorrow, resume home schedule Unchanged Rosuvastatin (rosuvastatin 20 mg oral capsule) 1 capsule Oral Daily tomorrow, resume home schedule Unchanged Senna (Senna 8.6 mg oral tablet) 1 tab(s) Oral Daily at Bedtime ([facility] ) ?? bedtime Test Results Below is a partial list of the most recent Laboratory test results done prior to this discharge. You may have had other tests and procedures not included in this list. Please discuss all test resultswith your provider. CBC w/ Differential (01/29/2023) ???WBC - 9.7 k/mm3???RBC - 4.80 m/mm3???Hgb - 13.9 Gm/dL???Hct - 44.1 %???MCV - 91.9 femtoliters???MCH - 29.0 pg???MCHC - 31.5 g/dL???Platelet Count - 207 k/mm3???RDW-SD - 50.6 femtoliters???MPV - 9.7 femtoliters???Nucleated RBC (Automated) - 0.0 #/100 WBC'S???Abs. NRBC - 0.0 k/mm3???Abs. Neut - 6.2 k/mm3???Abs. Lymph - 2.8 k/mm3???Abs. Hoke - 0.5 k/mm3???Abs. Eo - 0.1 k/mm3???Abs. Baso - 0.1 k/mm3???Neut % - 64.2 %???Lymph % - 28.8 %???Hoke % - 5.0 %???Eos % - 1.0 %???Baso % - 0.7 %???Imm Gran- 0.3 %???Abs. Imm Gran - 0.0 k/mm3 Comprehensive Metabolic Panel (01/29/2023) ???Sodium - 144 mmol/L???Potassium - 4.3 mmol/L???Chloride - 107 mmol/L???Bicarbonate Level - 25 mmol/L???Anion Gap - 12???Glucose Level - 118 mg/dL???BUN - 19 mg/dL???Creatinine-Blood - 0.7 mg/dL???Estimated GFR Creatinine - 82 ML/MIN/1.73 M2???Calcium - 9.5 mg/dL???Protein, Total - 6.3 Gm/dL???Albumin - 3.9 Gm/dL???AG Ratio - 1.6???Alkaline Phosphatase - 97 units/L???AST (SGOT) - 20 units/L???ALT (SGPT) - 16 units/L???Bilirubin, Total - 0.2 mg/dL COVID-19 (Novel Coronavirus), Rapid PCR (01/29/2023) ???COVID-19 by RT-PCR - NEGATIVE FREE T4 (01/29/2023) ???Free T4 - 1.55 ng/dL GLUCOSE POC (01/30/2023) ???Glucose, POC - 165 mg/dL INR (01/29/2023) ???INR - 1.1???Protime (PT) - 11.4 seconds MAGNESIUM (01/29/2023) ???Magnesium - 2.1 mg/dL PTT (01/29/2023) ???APTT - 26.0 seconds TSH with T4 Reflex (Adults Only) (01/29/2023) ???TSH - 0.06 uIU/mL Urinalysis w/hold for Urine Culture (01/30/2023) ???Appear/Color, Urine - LIGHT BROWN???Specific Crandall, Urine - 1.014???pH, Urine - 6.0???Albumin,Urine - 1+???Glucose, Urine - NEGATIVE???Ketones, Urine - NEGATIVE???Bilirubin, Urine - NEGATIVE???Hemoglobin, Urine - 3+???Nitrite, Urine - NEGATIVE???Leukocyte, Urine - 2+???Urobilinogen - NORMAL???WBC's, Urine - 44 /HPF? ?RBC's, Urine - >182 /HPF? ?Bacteria - SLIGHT? ?Squamous Epith - 16 /HPF???Mucus - SLIGHT???Hold Urine Culture - Testing [...] Belongings I fully understand and agree that [facility] accepts no responsibility for all [...] to send valuables and belongings home. ?? No Valuables/Belongings: No valuables/belongings present Review of Valuable and Belonging List: With patient, With witness Date for Pt to Sign Valuables/Belongings: 01/30/23 04:55:00 ?? Other Discharge Information ? Pulmonary Rehab Status?? Pulmonary Rehab Discharge Status?? Respiratory Rate: 17 br/min ? Common Emergency Awareness Tips IS [...] are strongly encouraged to quit. Please call [facility] [employer] at [phone] or [phone] or log in to [email or web address] for referrals to smoking cessation programs. ?? 058 Suicide & Crisis Lifeline is available 25/12 if you or someone you know needs to find a reason to keep living. By calling 527 you'll be connected to a skilled, trained counselor at a crisis center in your area. INPATIENT DISCHARGE INSTRUCTIONS SIGNATURE PAGE SARA CARTER Location:[facility] Registration Date and Time:01/29/2023 18:12 EDT Primary Care Physician: Ashley Morales MD, Attending Physician: Juan Huerta MD, I SARA CARTER, have received the above patient education materials/instructions and have verbalized understanding. If ambulance or transport services are being used I further acknowledge being given a choice of service. ?? If you need to contact me, please call me at this number: . Patient/Police Reserves Commander Name: Patient/Police Reserves Commander Signature: Relationship to Patient: Witness Name/Signature: Date: Patient Care team information Care Team Personnel Name: Yessica Koch RN Position: [facility] RN Member Role: Primary Care Nurse Name: Chase Otoole RN Position: [facility] RN Member Role: Primary Care Nurse Name: Radha Crawford Position: [facility] RN Member Role: Primary Care Nurse Name: Ashley Morales MD Position: [facility] Physician - Primary Care Member Role: PCP Address: Address: [address] [place] [address]- Name: Svitlana Mcgee RN Position: [facility] RN Member Role: Primary Care Nurse Name: Chip Colon RN Position: [facility] RN Member Role: Primary Care Nurse Name: Soraida Handy RN Position: [facility] RN Member Role: Primary Care Nurse Name: Thom Kuo RN Position: [facility] RN Member Role: Primary Care Nurse Name: Ileana Khan RN Position: [facility] RN Member Role: Primary Care Nurse Name: Becky Quezada RN Position: [facility] SN RN Member Role: Primary Care Nurse Name: Sara Dorantes RN Position: [facility] RN Member Role: Primary Care Nurse Name: Chelita Bailey LPN Position: [facility] RN Member Role: Primary Care Nurse Name: Frank LANDAVERDE Attending Position: [facility] ED Medicine MD Name: Dariel Vee Position: [facility] Associate Professional Member Role: ED Physician Health Information Management Director Address: Address: [address] [place] [id number]- Name: Isis Sanchez Position: [facility] ED TA [facility] Member Role: Internal Combustion Engineer Name: Brittni Cerrato RN Position: [facility] ED RN W/OE and Tasks Member Role: Patient Care Provider
--- OUTSIDE RECORDS SUMMARY | 2023-07-20 23:05 | XMS_ITS | Continuity of Care Document ---
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 Name Role Phone Ashley Morales MD Primary Care Physician Encounter [facility] Date(s): 05/15/23 - 05/16/[address] [address]- Encounter Diagnosis Back pain(Final) - 05/16/23 Discharge Disposition: A-D/C Home Attending Physician: Junito Garcia MD Admitting Physician: Junito Garcia MD Referring Physician: Not on Staff, Referring [...] vac 08/12/20 Recorded SARS-CoV-2 (COVID-19) mRNA [id number] [facility] 07/22/20 Recorded tetanus/diphtheria/pertussis, acel(Tdap) 02/10/15 Recorded Medications allopurinol 100 mg oral tablet 100 mg, 1, tablet, By Mouth, Daily, Refills 0, Maintenance, 09/18/22 16:24:00 EDT, Partial fill upon patient request if the prescription is for a schedule II opioid drug. Start Date: 09/18/22 Status: Ordered aspirin 81 mg oral delayed release tablet 81 mg, 1, tablet, By Mouth, Daily, # 30 tablet, Refills 0, Tot. Refills 0, Maintenance, 02/24/22 16:24:00 EDT, Route to Pharmacy Electronically, [facility], Partial fill upon patient request if the prescription is for a schedule II opioi... Start Date: 02/24/22 Status: Ordered BD PEN NEEDL MIS [id number] [place] BD PEN NEEDL MIS [id number] [place], 0 Refills, Maintenance, 09/18/22 15:29:00 EDT Start Date: 09/18/22 Status: Ordered cyclobenzaprine 10 mg oral tablet 10 mg, Tablet, By Mouth, Once, Routine, 05/16/23 16:15:00 EST, Stop date 05/16/23 16:15:00 EST Start Date: 05/16/23 Stop Date: 05/16/23 Status: Completed cyclobenzaprine 10 mg oral tablet 10 mg, 1, tablet, By Mouth, 3 times a day, PRN, # 15 tablet, Refills 0, Tot. Refills 0, Acute 05/23/23 12:00:00 EST, Pain , Severe, 05/16/23 17:36:00 EST, Route to Pharmacy Electronically, [facility], Partial fill upon patient request if the... Start Date: 05/16/23 Stop Date: 05/23/23 Status: Ordered donepezil 5 mg oral tablet 5 mg, 1, tablet, By Mouth, Daily at bedtime, Refills 0, Maintenance, 11/08/19 12:35:00 EDT Start Date: 11/08/19 Status: Ordered famotidine 40 mg oral tablet 1 tablet = 40 mg, By Mouth, Daily Start Date: 09/18/22 Status: Ordered gabapentin 100 mg oral capsule 100 mg, 1, capsule, By Mouth, 2 times a day, Refills 0, Maintenance, 11/08/19 12:31:00 EDT Start Date: 11/08/19 Status: Ordered glycerin adult rectal suppository 1 supp, Rectally, Daily, PRN for constipation, 0 Refills, Maintenance, 01/30/23 5:49:00 EDT, Suppository, Partial fill upon patient request if the prescription is for a schedule II opioid drug. Start Date: 01/30/23 Status: Ordered levothyroxine 0.1 mg oral tablet 1 tablet = 100 mcg, By Mouth, Daily, Maintenance, 10/28/22 13:37:00 EDT, Tablet, Partial fill upon patient request if the prescription is for a schedule II opioid drug. Start Date: 10/28/22 Status: Ordered lidocaine 5% topical film 1 patch, Topically, Daily, PRN Pain , Mild, remove after 12 hours, # 13 each, 0 Refills, Acute 06/17/23 12:00:00 EST, 05/16/23 17:36:00 EST, Film, [facility], Partial fill upon patient request if the prescription is for a schedule II opioid... Start Date: 05/16/23 Stop Date: 06/17/23 Status: Ordered lisinopril 40 mg oral tablet 1 tablet = 40 mg, By Mouth, Daily, 0 Refills, Maintenance, 12/06/21 9:32:00 EDT, Tablet, Partial fill upon patient request if the prescription is for a schedule II opioid drug. Start Date: 12/06/21 Status: Ordered loperamide 2 mg oral capsule 2 mg, 1, capsule, By Mouth, Daily, PRN, NTE 8 capsules in 24hrs, Refills 0, Maintenance, for loose stool, 01/30/23 5:49:00 EDT, Partial fill upon patient request if the prescription is for a scheduleII opioid drug. Start Date: 01/30/23 Status: Ordered Metoprolol Succinate ER 25 mg oral tablet, extended release 2 tablet = 50 mg, By Mouth, Daily Start Date: 12/06/21 Status: Ordered Milk of Magnesia 8% oral suspension 30 mL = 2.4 Gm, By Mouth, Daily at bedtime, PRN for constipation, 0 Refills, Maintenance, 01/30/23 5:50:00 EDT, Suspension, Partial fill upon patient request if the prescription is for a schedule II opioid drug. Start Date: 01/30/23 Status: Ordered Mintox 30 mL, By Mouth, Every 4 hours, PRN as needed for indigestion, 0 Refills, Maintenance, 01/30/23 5:50:00 EDT, Partial fill upon patient request if the prescription is for a schedule II opioid drug. Start Date: 01/30/23 Status: Ordered Plavix 75 mg oral tablet [...] 1 Refills, Maintenance, 01/27/22 10:57:00 EDT, Capsule, [facility], Partial fill upon patient request if the prescription is for a schedule II opioid drug., 160, cm, 12/07/21 7:04:00 EDT,... Start Date: 01/27/22 Status: Ordered Senna Plus 50 mg-8.6 mg oral tablet 2 tablet, By Mouth, 2 times a day, Maintenance, 05/16/23 16:52:00 EST, Tablet, Partial fill upon patient request if the prescription is for a schedule II opioid drug. Start Date: 05/16/23 Status: Ordered Tresiba FlexTouch 100 units/mL subcutaneous [...] 0 Refills, Maintenance, 10/18/22 4:27:00 EDT, Capsule, [facility], Partial fill upon patient request if the prescription is for a schedule II opioid drug., 1... Start Date: 10/18/22 Status: Ordered Vitamin B-12 1000 mcg oral tablet 1,000 mcg, 1, tablet, By Mouth, Daily, Refills 0, Maintenance, 09/18/22 15:30:00 EDT, Partial fill upon patient request if the prescription is for a schedule II opioid drug. Start Date: 09/18/22 Status: Ordered Vitamin B6 100 mg oral tablet 1 tablet = 100 mg, By Mouth, Daily, Maintenance, 10/28/22 13:42:00 EDT, Tablet, Partial fill upon patient request if the prescription is for a schedule II opioid drug. Start Date: 10/28/22 Status: Ordered Vitamin D3 5000 intl units oral tablet 1 tablet = 125 mcg, By Mouth, Daily, 0 Refills, Maintenance, 01/26/22 23:18:00 EDT, Tablet, Partialfill upon patient request if the prescription is for a schedule II opioid drug. Start Date: 01/26/22 Status: Ordered Problem List Condition Confirmation Course Effective Dates Status H ealth Status Informant CAD (coronary artery disease) Confirmed Active Gout Confirmed Active HTN (hypertension) Confirmed Active Hypothyroidism Confirmed Active Cognitive impairment Confirmed Active Severe obesity Confirmed Active SSS (sick sinus syndrome) Confirmed Active Type 2 diabetes mellitus Confirmed Active Results Radiology Reports * Exam Date Time Procedure Performing Provider Status 05/16/23 4:[address] Abd/Pelvis W/ IV Contrast Only Neel Nieves; Auth (Verified) Notes: (CT Abd/Pelvis W/ IV Contrast Only) Reason For Exam: LLQ abdominal pain;Other: RESULT: CT Abd/Pelvis W/ IV Contrast Only CT Abd/Pelvis W/ IV Contrast Only Hx of Present Illness: c o lower back pain increasing since this morning, states the pain radiates down her R leg and is associated w numbness tingling to the leg, hx 3 prior back surgeries, also endorses occasional dizzy spells for months; Reason: LLQ abdominal pain; Clinical Question(s): Aneurysm TECHNIQUE: Spiral CT through the abdomen and pelvis with IV contrast formatted in 3 planes. 100 cc of Omnipaque 300 was administered intravenously. This study was performed without oral contrast. Weight-based protocol using automatic tube modulation was used to optimize exposure parameters. CTDIvol Body: 13.70 mGy, DLP Body: 839 mGy*cm. COMPARISON: Multiple priors, most recent CT abdomen pelvis 02/27/2023 FINDINGS: Outside [place] Findings, Lines and Tubes: Left subclavian dual-chamber pacemaker/AICD leads appear intact. Visualized Chest: Mild bibasilar atelectasis. Lung bases are otherwise clear. No pleural effusion. The heart is normal in size. No pericardial effusion. Diaphragm: Normal. Liver: Multiple subcentimeter circumscribed low-density lesions likely represent cysts (in the absence of known malignancy). Diffuse hepatic steatosis. Gallbladder: No CT evidence of gallbladder pathology. Bile ducts: No biliary ductal dilation. Spleen: Normal. Pancreas: Normal. Adrenal glands: Mild thickening of the bilateral adrenal glands without evidence of discrete nodule. Kidneys and ureters: Partially duplicated right renal collecting system. Unchanged mild left hydronephrosis without evidence of obstructing stone. Unchanged urothelial thickening and mild fat stranding surrounding the left renal pelvis and right kidney lower pole calyces. Unchanged multiple punctate parenchymal calcifications and/or nonobstructing renal stones. No suspicious masses. Bladder: Distended. Otherwise unremarkable. Reproductive organs: Status post hysterectomy. Unchanged focal hyperdensity adjacent to the left vagina. Otherwise unremarkable. Stomach, small bowel, and large bowel: Mild mucosal hyperenhancement in the distal stomach wall. Noevidence of bowel obstruction or acute inflammation. Moderate colonic diverticulosis without evidence of acute diverticulitis. Moderate stool burden. Markedly distended rectum with caliber measuring up to 7.3 cm and formed stool in the lumen. No significant associated wall thickening to suggest stercoral colitis. Appendix: Normal. Peritoneum and retroperitoneum: No ascites or pneumoperitoneum. No omental or mesenteric lesions. Lymph nodes: No enlarged lymph nodes. Blood vessels: Moderate atherosclerotic vascular calcification. Unchanged infrarenal abdominal aortic aneurysm measuring up to 3.3 cm in sagittal plane (series 403: Image 76). No evidence of venous thrombosis. Abdominal and pelvic wall: Unremarkable. Bones: No acute abnormality. Mild degenerative changes throughout the spine. IMPRESSION: Mild mucosal hyperenhancement in the distal stomach wall could indicate gastritis. Marked distention of the rectum with a formed stool within the lumen. No additional findings to suggest stercoral colitis or bowel obstruction. Unchanged 3.3 cm infrarenal abdominal aortic aneurysm. Unchanged mild left hydronephrosis without evidence of obstructing stone. Findings may represent chronic UPJ obstruction. Urothelial thickening in the left renal pelvis and right kidney lower pole calyces with surroundingfat stranding could indicate pyelitis or neoplasm. 3.3 cm abdominal aortic aneurysm. Recommend follow-up ultrasound or CTA in 3 years per simplified ACR and SVS guidelines. Reference: Chaikof EL et al. J Vasc Surg 2018; 67:2-77. Society for Vascular Surgery 2018 practice guidelines on the care of patients with an abdominal aortic aneurysm. Additional chronic findings as described. I have personally reviewed the images and I agree with this report. WSN: [id number] Ordering Physician: Alex Huber Dictated By: Etta Romano MD Dictated Date/Time: 05/16/23 5:18 pm Reviewed By: Savana Thomas MD Signed By: Savana Thomas MD Signed Date/Time: 05/16/23 5:23 pm Transcribed By: FERMIN Transcribed Date/Time: 05/16/23 4:48 pm * Exam Date Time Procedure Performing Provider Status 05/16/23 10:08 AM Chest 2 Views Frontal and Lat Eusebi o , Casie; Auth (Verified) Notes: (Chest 2 Views Frontal and Lat) Reason For Exam: chest pain;Other: RESULT: Chest 2 Views Frontal and Lat Chest 2 Views Frontal and Lat INDICATION: c o lower back pain increasing since this morning, states the pain radiates down her R leg and is associated w numbness tingling to the leg, hx 3 prior back surgeries, also endorses occasional dizzy spells for months; Reason: Other:; chest pain; Clinical Question(s): Pneumonia. COMPARISON: 02/28/2023. FINDINGS: LINES AND TUBES: Dual-lead left subclavian pacer/AICD wires are intact. LUNGS AND PLEURA: Clear lungs. Normal pulmonary vascularity. No pleural effusion. No pneumothorax. HEART, MEDIASTINUM AND YOMI: Heart is normal in size. Normal mediastinal and hilar contour. BONES AND SOFT TISSUES: Mild degenerative changes of the spine. Mild degenerative change both shoulders. IMPRESSION: No evidence of acute abnormality. I have personally reviewed the images and I agree with this report. WSN: [id number] Ordering Physician: German Desai Dictated By: Cuba Milian MD Dictated Date/Time: 05/16/23 10:18 a Reviewed By: Yevgeniy Paris MD, V Signed By: Yevgeniy Paris MD, V Signed Date/Time: 05/16/23 10:23 am Transcribed By: FERMIN Transcribed Date/Time: 05/16/23 10:17 am Vital Signs Most recent to oldest [Reference Range]: 1 2 3 Height 160 cm (05/15/23 11:44 PM) 160 cm (05/15/23 10:43 PM) Weight 125 kg (05/15/23 11:44 PM) 125 kg (05/15/23 10:43 PM) Oxygen Saturation [94-100 %] 98 % (05/16/23 6:48 PM) 96 % (05/16/23 3:35 PM) 99 % (05/16/23 1:33 PM) Pulse Rate [55-90 bpm] 62 bpm (05/16/23 6:48 PM) 59 bpm (05/16/23 3:35 PM) 56 bpm (05/16/23 1:33 PM) Body Mass Index [18.5-24.99 kg/m2] 48.83 kg/m2 *>HHI* (05/15/23 10:43 PM) Blood Pressure [90-138/55-84 mm Hg] 136/55mm Hg (05/16/23 6:48 PM) 136/52mm Hg (05/16/23 3:35 PM) 137/57mm Hg (05/16/23 1:33 PM) Respiratory Rate [16-30 br/min] 18 br/min (05/16/23 6:48 PM) 16 br/min (05/16/23 4:29 PM) 18 br/min (05/16/23 3:35 PM) Temperature [96.8-100.4 DegF] 98.0 DegF (05/16/23 1:33 PM) 97.4 DegF (05/16/23 11:45 AM) 98.0 DegF (05/16/23 8:47 AM) Mode of Delivery (Oxygen) Room air (05/16/23 6:48 PM) Room air (05/16/23 3:35 PM) Room air (05/16/23 1:33 PM) Blood pressure sites Arm, left (05/16/23 6:48 PM) Arm, left (05/16/23 3:35 PM) Arm, right (05/16/23 1:33 PM) Temperature Route Oral (05/16/23 1:33 PM) Oral (05/16/23 11:45 AM) Oral (05/16/23 8:47 AM) Dry Weight 57 kg (05/15/23 11:44 PM) 57 kg (05/15/23 10:43 PM) Social History Social History Type Response Tobacco Use: 4 or less cigar ettes(less than 1/4 pack)/day in last 30 days. Sex EKG study * Event Display: ECG 12-Lead Authored Date: Please click on pdf link to open report * Event Display: ECG 12-Lead Authored Date: Ventricular Rate: 60 BPM Atrial Rate: 60 BPM P-R Interval: 268 ms QRS Duration: 112 ms Q-T Interval: 542 ms QTC Calculation(Bazett): 542 ms R [place]: -24 degrees T [place]: 95 degrees Critical Test Result: Long QTc Normal sinus rhythm Inferior infarct (cited on or before 09-NOV-2022) Cannot rule out Anterior infarct , age undetermined Prolonged QT Abnormal ECG When compared with ECG of 29-JAN-2023 20:05, Incomplete right bundle branch block is no longer Present Confirmed by CHRISTIANO DE LA GARZA MD ([id number]) on 05/16/2023 5:29:16 PM [place]: CHRISTIANO DE LA GARZA MD Note * Jose LORA, Junito Gross: PERFORM Event Display: Patient Education Leaflets Authored Date: Cyclobenzaprine Oral Tablet ?? [id number] Cyclobenzaprine Oral Tablet Brands: [employer]exmid Uses This medicine is used for the following purposes: ??? inflammation ??? muscle spasms ?? Instructions This medicine may be taken with or without food. Keep the medicine at room temperature. Avoid heat and direct light. If you forget to take a dose on time, take it as soon as you remember. If it is almost time for thenext dose, do not take the missed dose. Return to your normal schedule. Do not take 2 doses at one time. Tell your doctor and pharmacist about all your medicines. Include prescription and ciik-cgm-sswdfclikljiqxkn, vitamins, and herbal medicines. ?? Cautions Tell your doctor and pharmacist if you ever had an allergic reaction to a medicine. Do not use the medication any more than instructed. Your ability to stay alert or to react quickly may be impaired by this medicine. Do not drive or operate machinery until you know how this medicine will affect you. Do not drink beverages with alcohol while on this medicine. Avoid becoming overheated during exercise or other activities. Try to stay cool in hot weather. Tell the doctor or pharmacist if you are , planning to be , or . Do not start or stop any other medicines without first speaking to your doctor or pharmacist. Do not share this medicine with anyone who has not been prescribed this medicine. ?? Side Effects The following is a list of some common side effects from this medicine. Please speak with your doctor about what you should do if you experience these or other side effects. ??? constipation ??? dizziness or drowsiness ??? dry mouth ??? lack of energy and tiredness A few people may have an allergic reaction to this medicine. Symptoms can include difficulty breathing, skin rash, itching, swelling, or severe dizziness. If you notice any of these symptoms, seek medical help quickly. ?? Extra Please speak with your doctor, nurse, or pharmacist if you have any questions about this medicine. ?? [email or web address] IMPORTANT NOTE: This document tells you briefly how to take your medicine, but it does not tell youall there is to know about it. Your doctor or pharmacist may give you other documents about your medicine. Please talk to them if you have any questions. Always follow their advice. There is a more complete description of this medicine available in Congolese. Scan this code on your smartphone or tablet or use the web address below. You can also ask your pharmacist for a printout. If you have any questions, please ask your pharmacist. The display and use of this drug information is subject to Terms of Use. Copyright(c) 2022 [employer] ?? [employer]. All rights reserved. This information is not intended as a substitute for professional medical care. Always follow your healthcare professional's instructions. ?? * Jose LORA, Junito Gross: PERFORM Event Display: Patient Education Leaflets Authored Date: [id number] Back Pain (Acute or Chronic) ?? [id number] Back Pain (Acute or Chronic) Back pain is one of the most common problems. The good news is that most people feel better in 1 to2 weeks, and most of the rest in 1 to 2 months. Most people can remain active. People who have pain??describe it differently???not??everyone is the same. ??? The pain can be sharp, stabbing, shooting, aching, cramping or burning. ??? Movement, standing,bending, lifting, sitting, or walking may worsen pain. ??? It can be limited to one spot or area, or it can be more generalized. ??? It can spread upwards, to the front, or go down your arms or legs (sciatica). ??? It can cause muscle spasm. Most of the time, mechanical problems with the muscles??or spine cause the pain. Mechanical problems??are usually caused by an injury to the muscles or ligaments. Illness can cause back pain, but it's usually not caused by a serious illness. Mechanical problems include:? Physical activity such as sports, exercise, work, or normal activity ??? Overexertion, lifting,pushing, pulling incorrectly or too aggressively ??? Sudden twisting, bending, or stretching from an accident, or accidental movement ??? Poor posture ??? Stretching or moving wrong, without noticingpain at the time ??? Poor coordination, lack of regular exercise (check with your doctor about this) ??? Spinal disc disease or arthritis ??? Stress Pain can also be related to , or illness such as appendicitis, bladder or kidney infections, kidney stones, and pelvic infections. Acute back pain usually gets better in??1 to 2 weeks. Back pain related to disk disease, arthritis in the spinal joints, or narrowing of the spinal canal (spinal stenosis) can become chronic and lastfor months or years. Unless you had a physical injury such as a car accident or fall, X-rays are usually not needed for the first assessment of back pain. If pain continues and does not respond to medical treatment, you may need X-rays and other tests. Home care Try this home care advice: ??? When in bed, try??to find a position of comfort. A firm mattress is best. Try lying flat on your back with pillows under your knees. You can also try lying on your side with your knees bent up toward your chest and a pillow between your knees. ??? At first, don't try to stretch out the sore spots. If there is a strain, it's not like the good soreness you get after exercising without an injury. In this case, stretching may make it worse. ??? Don't sit for long periods, as in a long car ride or during other??travel. This puts more stress on the lower back than standing or walking. ??? During the first 24 to 72 hours after an acute injury or flare up of chronic back pain, apply an ice pack to the painful area for 20 minutes and then remove it for 20 minutes. Do this over a period of 60 to 90 minutes or several times a day. This will reduce swelling and pain. Wrap the ice pack in a thintowel or plastic to protect your skin. ??? You can start with ice, then switch to heat. Heat (hot shower, hot bath, or heating pad) reduces pain and works well for muscle spasms. Heat can be applied to the painful area for 20 minutes then remove it for 20 minutes. Do this over a period of 60 to 90 minutes or several times a day. Don't sleep on a heating pad. It can lead to skin iyer or tissue damage. ??? You can alternate ice and heat therapy. Talk with your doctor about??the best treatment for your back pain. ??? Therapeutic massage can help relax the back muscles without stretching them. ??? Be aware of safe lifting methods. Don't lift anything without stretching first. Medicines Talk to your doctor before using medicine, especially if you have other medical problems or are taking other medicines. ??? You may use egzg-cqa-nxeufme medicine as directed on the bottle to control pain, unless another pain medicine was prescribed. Talk with your healthcare provider before using these medicines if you have chronic conditions such as diabetes, liver or kidney disease, stomach ulcers, or digestive bleeding. Also talk with your provider if you take blood thinners. ??? Be careful if you are given a prescription medicines, narcotics, or medicine for muscle spasms. They can cause drowsiness, affect your coordination, reflexes, and judgment. Don't drive or operate heavy machinery. ?? Follow-up care Follow up with your healthcare provider, or as advised.?? If X-rays were taken, you will be told of any new findings that may affect your care. ?? Call 911 Call 911 if any of the following occur: ??? Trouble breathing ??? Confusion ??? Very drowsy or trouble awakening ??? Fainting or loss of consciousness ??? Rapid or very slow heart rate ??? Loss of bowel or bladder control ?? When to seek medical advice Call your healthcare provider right away if any of these occur:? Pain gets worse or spreads toyour legs ??? Your bowel or bladder control changes ??? Fever ??? Blood in your urine ??? Weakness or numbness in one or both legs ??? Numbness in the groin or genital area ?? Last Reviewed Date: 2021 ?? [id number] [employer]. All rights reserved. This information is not intended as a substitute for professional medical care. Always follow your healthcare professional's instructions. ?? Patient Care team information Care Team Personnel Name: Yessica Koch RN Position: [facility] RN Member Role: Primary Care Nurse Name: Chase Otoole RN Position: [facility] RN Member Role: Primary Care Nurse Name: Radha Crawford Position: [facility] RN Member Role: Primary Care Nurse Name: Ashley Morales MD Position: [facility] Physician - Primary Care Member Role: PCP Address: Address: [address] [place], [place] [address] Name: Svitlana Mcgee RN Position: S RN Member Role: Primary Care Nurse Name: Chip Colon RN Position: S RN Member Role: Primary Care Nurse Name: Soraida Handy RN Position: S RN Member Role: Primary Care Nurse Name: Thom Kuo RN Position: S RN Member Role: Primary Care Nurse Name: Ileana Khan RN Position: S RN Member Role: Primary Care Nurse Name: Becky Quezada RN Position: [facility] RN Member Role: Primary Care Nurse Name: Sara Dorantes RN Position: [facility] RN Member Role: Primary Care Nurse Name: Chelita Bailey LPN Position: [facility] RN Member Role: Primary Care [facility] Attending Position: [facility] ED Attendings Patient Name: Patricia Dickens MA Position: [facility] ED TA [facility] Name: Denis Ramirez Position: [facility] ED RN W/OE and Tasks Member Role: Patient Care Provider Name: Junito Garcia MD [facility] [facility] Resident Member Role: Admitting Physician Address: Address: [address] [place] [address]
--- OUTSIDE RECORDS SUMMARY | 2023-07-20 23:05 | XMS_ITS | Continuity of Care Document ---
Author Name Unknown Organization [facility] ter Address [address] [place] [id number]- Care Team Providers Care Stopper Grinder Name Role Phone Ashley Morales MD Primary Care Physician Encounter [facility] Date(s): 09/18/22 - 09/19/[address] [address]- Encounter Diagnosis UTI (urinary tract infection)(Final) - 09/18/22 Discharge Disposition: A-D/C Home Attending Physician: Maria Del Rosario Hsu MDupama Admitting Physician: Brooks Piedra MD Referring Physician: [...] prescription as of 09/2021). 2numb lips Medications acetaminophen 325 mg oral tablet 650 [...] 01/27/22 10:57:00 EDT, Route to Pharmacy Electronically, [facility], Partial fill upon patient request if the prescription is for a schedule II opioid... Start Date: 01/27/22 Status: Ordered amLODIPine 5 mg oral tablet 5 mg, Tablet, By Mouth, 09/19/22 9:00:00 EDT Start Date: 09/19/22 Stop Date: 09/19/22 Status: Completed aspirin 81 mg oral delayed release tablet 81 mg, 1, tablet, By Mouth, Daily, # 30 tablet, Refills 0, Tot. Refills 0, Maintenance, 02/24/22 16:24:00 EDT, Route to Pharmacy Electronically, [facility], Partial fill upon patient request if the prescription is for a schedule II opioi... Start Date: 02/24/22 Status: Ordered BD PEN NEEDL MIS [id number] [place] BD PEN NEEDL MIS [id number] [place], 0 Refills, Maintenance, 09/18/22 15:29:00 EDT Start Date: 09/18/22 Status: Ordered cefpodoxime 100 mg oral tablet 1 tablet = 100 mg, By Mouth, Every 12 hours, for 5 days, # 10 tablet, 0 Refills, Acute 09/24/22 14:35:00 EDT, 09/19/22 14:35:00 EDT, Tablet, [facility], Partial fill upon patient request if the prescription is for a schedule II opioid [email or web address] Start Date: 09/19/22 Stop Date: 09/24/22 Status: Ordered docusate sodium 100 mg oral [...] oral capsule 100 mg, Capsule, By Mouth, 09/19/22 9:00:00 EDT Start Date: 09/19/22 Stop Date: 09/19/22 Status: Completed levothyroxine 0.1 mg oral tablet 1 tablet = 100 mcg, By Mouth, Daily, # 90 tablet, 1 Refills, Maintenance, 12/07/21 9:50:00 EDT, Tablet, [facility], Partial fill upon patient request if the prescription is for a schedule II opioid drug., 160, cm, 12/07/21 7:04:00 EDT, .. Start Date: 12/07/21 Status: Ordered lisinopril 20 mg oral tablet 40 mg, Tablet, By Mouth, 09/19/22 9:00:00 EDT Start Date: 09/19/22 Stop Date: 09/19/22 Status: Completed lisinopril 40 mg oral tablet [...] opioid drug. Start Date: 09/18/22 Status: Ordered Plavix 75 mg oral tablet [...] 1 Refills, Maintenance, 01/27/22 10:57:00 EDT, Capsule, [facility], Partial fill upon patient request if [...] opioid drug. Start Date: 09/18/22 Status: Ordered Toprol XL 50 mg oral tablet, extended release 50 mg, XL Tablet, By Mouth, 09/19/22 9:00:00 EDT Start Date: 09/19/22 Stop Date: 09/19/22 Status: Completed Tresiba FlexTouch 200 units/mL subcutaneous solution = [...] Reports Name Date Urine Culture (URINE CULTURE) 09/18/22 Microbiology Reports TEST:Urine Culture STATUS:Unauthenticated BODY SITE: SOURCE:URINE COLLECTED DATE/TIME:09/18/22 12:56 PM Urine Culture SPECIMEN DESCRIPTION : URINE SPECIAL REQUESTS : NONE CULTURE : >100,000 COL/ML ESCHERICHIA COLI This isolate was identified using Maldi-TOF system REPORT STATUS : PRELIMINARY REPORT Radiology Reports * Exam Date Time Procedure Performing Provider Status 09/18/22 12:27 PM Chest Portable Elvie Dunne; Aut h (Verified) Notes: (Chest Portable) Reason For Exam: Shortness of Breath RESULT: Chest Portable AP upright portable chest dated September 18, 2022 at 1221 hours. Comparison films are from February 24, 2022. HISTORY: Shortness of breath. FINDINGS: The cardiac silhouette is at the upper limits of normal limits for size. Mural calcifications are present in the aorta. No airspace infiltrate or pleural effusion is identified. A pacemaker is noted on the left. Wires extend to overlie the heart. Degenerative changes are noted in the spine and shoulders. IMPRESSION: No evidence of acute pulmonary disease. Stable mild cardiomegaly. Pacemaker in place. Examination 333[address]. Thank you for allowing me to participate in the care of this patient. WSN: [id number] Ordering Physician: Jesus Mooney Dictated By: Jesus Marcus MD Dictated Date/Time: 09/18/22 1:55 pm Reviewed By: Jesus Marcus MD Signed By: Jesus Marcus MD Signed Date/Time: 09/18/22 1:55 pm Transcribed By: FERMIN Transcribed Date/Time: 09/18/22 1:54 pm * Exam Date Time Procedure Performing Provider Status 09/18/22 1:[address] Head/Brain W/O Contrast Warren Carr; Auth (Verified) Notes: (CT Head/Brain W/O Contrast) Reason For Exam: Trauma RESULT: CT Head/Brain W/O Contrast CT Head/Brain W/O Contrast INDICATION: Hx of Present Illness: Dizziness; Reason: Trauma; Clinical Question(s): Hematoma; OrderComment: TECHNIQUE: Noncontrast head CT using axial technique and reconstructed in axial and coronal planes.Iterative reconstruction techniques are used to optimize dose and image quality. COMPARISON: CT head without contrast 02/23/2022.. FINDINGS: Pediatric Associate view findings, lines and tubes: None. BRAIN AND EXTRA-AXIAL SPACES: No parenchymal hemorrhage, midline shift, or mass effect. Bernard-white matter differentiation is wellpreserved. No acute infarct. Negative insular ribbon sign. Atherosclerotic vascular calcification of the carotid arteries but negative hyperdense vessel sign. Unchanged small right thalamic infarct. Moderate prominence of the ventricles and sulci consistent with parenchymal volume loss. Moderate low-density white matter changes. No subarachnoid hemorrhage. No subdural or epidural collection. CALVARIUM, SKULL BASE, AND SOFT TISSUES: No fractures or suspicious bony lesions. Mild mucosal thickening in the ethmoid and maxillary sinuses. Remainder of the paranasal sinuses are clear. Mastoid air cells are clear. Status-post bilateral lens extraction. The extracranial soft tissues are unremarkable. IMPRESSION: No acute intracranial pathology. No interval change from 02/23/2022. WSN: [id number] Ordering Physician: Jesus Mooney Dictated By: Abhi West MD Dictated Date/Time: 09/18/22 1:42 pm Reviewed By: Abhi West MD Signed By: Abhi West MD Signed Date/Time: 09/18/22 1:42 pm Transcribed By: FERMIN Transcribed Date/Time: 09/18/22 1:38 pm Vital Signs Most recent to oldest [Reference Range]: 1 2 3 Height 160 cm (09/19/22 10:40 AM) 160 cm (09/19/22 4:02 AM) 160 cm (09/19/22 12:54 AM) Weight 62 kg (09/18/22 5:34 PM) Oxygen Saturation [94-100 %] 95 % (09/19/22 8:10 AM) 100 % (09/19/22 4:02 AM) 100 % (09/19/22 12:54 AM) Pulse Rate [55-90 bpm] 59 bpm (09/19/22 9:00 AM) 59 bpm (09/19/22 8:10 AM) 64 bpm (09/19/22 4:02 AM) Body Mass Index [18.5-24.99 kg/m2] 24.22 kg/m2 (09/18/22 5:34 PM) Blood Pressure [90-138/55-84 mm Hg] 158/71mm Hg *H* (09/19/22 9:15 AM) 158/71mm Hg *H* (09/19/22 9:15 AM) 158/71mm Hg *H* (09/19/22 9:00 AM) Respiratory Rate [16-30 br/min] 18 br/min (09/19/22 10:16 AM) 18 br/min (09/19/22 9:16 AM) 16 br/min (09/19/22 8:10 AM) Temperature [96.8-100.4 DegF] 98.6 DegF (09/19/22 10:00 AM) 98.0 DegF (09/19/22 8:10 AM) 97.5 DegF (09/19/22 4:02 AM) Mode of Delivery (Oxygen) Room air (09/19/22 8:10 AM) Room air (09/19/22 4:02 AM) Room air (09/19/22 12:54 AM) Blood pressure sites Arm, right (09/19/22 8:10 AM) Arm, right (09/19/22 4:02 AM) Arm, right (09/19/22 12:54 AM) Temperature Route Oral (09/19/22 10:00 AM) Oral (09/19/22 8:10 AM) Oral (09/19/22 4:02 AM) Dry Weight 62 kg (09/18/22 5:34 PM) Social History Social History Type Response Tobacco Use: 4 or less cigar ettes(less than 1/4 pack)/day in last 30 days. Sex Admission evaluation note * Fahad BLANCO, Zully Coles: PERFORM, MODIFY, MODIFY, MODIFY Event Display: Admission Note Authored Date: Patient: ??CHRISTOPH JOSHI ? Age:??76 Years?Sex:??Female?:??1945?? History of Present Illness The patient is a 76-year-old female history of sick sinus syndrome status post pacemaker in 2018, CAD, diabetes, hypertension hyperlipidemia and continued tobacco abuse who is presenting from her assisted living facility for lightheadedness.?The patient states that she went to bed last night feeling well.?She woke up this morning feeling??alright but then throughout the morning she became more lightheaded, feeling like she was going to pass out.?She denies any spinning sensations,??or feelings of imbalance.?She denies chest pain, shortness of breath, abdominal pain, fevers or chills.?She does report urinary frequency but no dysuria. ?? In the ED, Tmax is 99.1.?? SBP is in the 170s and vitals signs are otherwise stable. EKG shows A-paced rhythm, rate 60, no acute ischemia.?? CT head is nonacute. CXR is nonacute?? Laboratory data is significant for TSH 1.81, HS troponin 15, 14. ??UA suggests UTI with positive nitrites and 153 WBCs.?? Influenza, RSV and Covid are negative.?? The patient was give Ceftriaxone in the ED?? She is admitted for UTI and near syncope. Review of Systems Constitutional:??No weight loss, fever, chills, weakness or fatigue. Allergy/Immune: Denies any??Eczema or hives Eyes:?? Blurred vision.?? No double vision or yellow sclera ENT:??No hearing loss, sneezing, congestion, runny nose or sore throat. Respiratory:??No shortness of breath, cough or sputum production. Cardiovascular:??No chest pain, chest pressure or chest discomfort. No palpitations or pedal edema. Gastrointestinal:??No anorexia, nausea, vomiting or diarrhea. No abdominal pain or blood in stool. Genitourinary:??No burning micturition. Urinary frequency. No incontinence. Neurologic:?? Headache.?? Dizziness, near syncope.?? No unilateral weakness, ataxia, numbness or tingling in the extremities. No change in bowel or bladder control. Musculoskeletal:??No muscle pain, back pain, joint pain or stiffness. Hematologic/Lymphatics:??No bleeding or bruising. No painful lymph nodes. Skin:??No rash or itching. Endocrine:??No reports of sweating. No cold or heat intolerance. Polyuria,??polydipsia. Psychiatric:??No depression or anxiety. Objective Vital Signs?? Temperature: 97.7 DegF (09/18/22 20:28:00) Temperature Route: Oral (09/18/22 20:28:00) Pulse Rate: 59 bpm (09/18/22 20:28:00) Respiratory Rate: 18 br/min (09/18/22 21:51:00) Systolic Blood Pressure:??168 mm Hg??High (09/18/22:28:) Diastolic Blood Pressure: 58 mm Hg (09/18/22 20:28:00) Blood pressure sites: Arm, left (09/18/22:28:00) Mean Arterial Pressure: 95 mm Hg (09/18/22 20:28:00) Pulse Pressure: 110 mm Hg (09/18/22 20:28:00) Oxygen Saturation: 98 % (09/18/22 20:28:00) Mode of Delivery (Oxygen): Room air (09/18/22 20:28:00) Early Warning Score: 2 (09/18/22 21:51:44) ? Intake/Output? No Data Available ? Physical Exam Constitutional: Alert, in no distress. Mental Status: Oriented to person, place and time. Head: Normocephalic. Eyes: Pupils are equal, round and reactive to light. Extraocular muscles intact. Ear, Nose and Throat: Oropharynx clear, mucous membranes moist. Ears and nose without masses, lesions or deformities. Trachea midline. Neck: Supple, Full range of motion. Respiratory: Clear to auscultation. No wheezing, rales or rhonchi. Cardiovascular: S1 S2 regular. No murmurs, rubs or gallops. Gastrointestinal: Abdomen soft, non-tender, non-distended. Normal bowel sounds. No pulsatile mass. No hepatosplenomegaly. Genitourinary: No costovertebral angle tenderness. Neurologic: Cranial nerves II-XII grossly intact. No focal neurological deficits. Flexor plantar response. Moves all extremities spontaneously. Sensation intact bilaterally. Skin: No rashes or lesions. No petechiae or purpura.?? Musculoskeletal: No cyanosis or clubbing. No gross deformities. Normal range of motion. Heme/Lymphatics/Immun: Palpation of neck reveals no swelling or tenderness of neck nodes. Psychiatric: Normal mood and affect Assessment/Plan Assessment:??The patient is a 76-year-old female history of sick sinus syndrome status post pacemaker in 2018, CAD, diabetes, hypertension hyperlipidemia and continued tobacco abuse who is presentingfrom her assisted living facility for lightheadedness. The patient states that she went to bed lastnight feeling well. She woke up this morning feeling alright but then throughout the morning she bec ken more lightheaded, feeling like she was going to pass out. She denies any spinning sensations, or feelings of imbalance. She denies chest pain, shortness of breath, abdominal pain, fevers or chills. She does report urinary frequency but no dysuria. ?? In the ED, Tmax is 99.1. SBP is in the 170s and vitals signs are otherwise stable. EKG shows A-paced rhythm, rate 60, no acute ischemia. CT head is nonacute. CXR is nonacute Laboratory data is significant for TSH 1.81, HS troponin 15, 14. UA suggests UTI with positive nitrites and 153 WBCs. Influenza, RSV and Covid are negative. The patient was give Ceftriaxone in the ED She is admitted for UTI and near syncope. ?? Near syncope: Work up for cardiac etiology of her near syncopal episode is reassuring.?? EKG is nonischemic.?? Troponin is??flat. -Continue telemetry to monitor for arrhythmia. -Trend Troponin. ?? UTI: -Patient was started on Ceftriaxone in the ED. -Continue Ceftriaxone pending urine culture. ?? CAD: -Continue home regimen of ASA, metoprolol, rosuvastatin and Plavix. ?? Diabetes: -Patient takes Tresiba at home, which is not on formulary, but there is 1:1 conversion with glargine.?? -Continue Glargine 18 units HS. -Monitor glucose POC before meals and HS. -Hypoglycemic measures ordered. ?? Hypertension: -Continue amlodipine, lisinopril and metoprolol. ?? Hypothyroidism: -Continue home dose of levothyroxine. ?? Tobacco Use. -Patient counseled on risks of smoking.?? She declines nicotine patch at this time. ?? Diet:?? Cardiac diabetic. ?? DVT prophylaxis: Pneumatic compression boots. Heparin SC. ?? Code Status:?? Full code. ?? Discharge Planning:?? -D'c home in 2-3 days. ? Histories Allergies Allergies ?(Active and Proposed [...] Electronic Cigarette/Vaping Details:??Electronic Cigarette Use: Never. ? Psychosocial History ? Family History No family history recorded. ? Medications Home Medications Acetaminophen (acetaminophen 325 mg oral tablet)?650?Milligram?2?tablet?By Mouth?Every 4 hours?as needed?as needed for pain Al Hydroxide/Mg Hydroxide/Simethicone (Mintox)?30?Milliliter?By Mouth?Every 4 hours?as needed?upset stomach Allopurinol (allopurinol 100 mg oral tablet)?100?Milligram?1?tablet?By Mouth?Daily Amlodipine (amLODIPine 5 mg oral tablet)?5?Milligram?1?tablet?By Mouth?Daily Aspirin (aspirin 81 mg oral delayed release tablet)?81?Milligram?1?tablet?By Mouth?Daily Cholecalciferol (Vitamin D3 5000 intl units oral tablet)?1?tab(s)?125?Microgram?By Mouth?Daily Clopidogrel (Plavix 75 mg oral tablet)?75?Milligram?1?tablet?By Mouth?Daily Cyanocobalamin (Vitamin B-12 1000 mcg oral tablet)?1,000?Microgram?1?tablet?By Mouth?Daily Docusate (docusate sodium 100 mg oral capsule)?100?Milligram?1?capsule?By Mouth?2times a day Donepezil (donepezil 5 mg oral tablet)?5?Milligram?1?tablet?By Mouth?Daily at bedtime Famotidine (famotidine 40 mg oral tablet)?1?tab(s)?40?Milligram?By Mouth?Daily Gabapentin (gabapentin 100 mg oral capsule)?100?Milligram?1?capsule?By Mouth?2 times a day insulin degludec (Tresiba FlexTouch 200 units/mL subcutaneous solution)?18?unit(s)?Subcutaneous Injection?Daily at bedtime?rotate injection sites Levothyroxine (levothyroxine 0.1 mg oral tablet)?1?tab(s)?100?Microgram?By Mouth?Daily Lisinopril (lisinopril 40 mg oral tablet)?1?tab(s)?40?Milligram?By Mouth?Daily Loperamide (loperamide 2 mg oral capsule)?2?Milligram?1?capsule?By Mouth?Daily?as needed?do not excnot to exceed 8 capsules, or 16 mg, in 24 hours?Loose Stool Metoprolol (Metoprolol Succinate ER 25 mg oral tablet, extended release)?2?tab(s)?50?Milligram?By Mouth?Daily Milk of Magnesia (MOM Liquid)?30?Milliliter?By Mouth?Daily?as needed?as needed for constipation Polyethylene Glycol 3350 (polyethylene glycol 3350 oral powder for reconstitution)?17?gram?By Mouth?2 times a day?as needed?Constipation?dissolve in water or juice before taking Pyridoxine (Vitamin B6)?100?Milligram?Daily Rosuvastatin (rosuvastatin 20 mg oral capsule)?1?capsule?20?Milligram?By Mouth?Daily Senna (Senna 8.6 mg oral tablet)?8.6?Milligram?1?tab(s)?By Mouth?Daily at bedtime ? Inpatient Medications Medications (26) Active SCHEDULED: (17) Allopurinol 100 mg Tablet (allopurinol 100 mg oral tablet) ??100 mg, By Mouth, Daily Amlodipine 5 mg Tablet (amLODIPine 5 mg oral tablet) ??5 mg, By Mouth, Daily Aspirin 81 mg EC Tablet (aspirin 81 mg oral delayed release tablet) ??81 mg, By Mouth, Daily Cholecalciferol (cholecalciferol 1000 intl units oral tablet) ??125 mcg 5 tablet, By Mouth, Daily Clopidogrel 75 mg Tablet (Plavix 75 mg oral tablet) ??75 mg, By Mouth, Daily Donepezil 5 mg Tablet (donepezil 5 mg oral tablet) ??5 mg, By Mouth, Daily at bedtime Famotidine 20 mg Tablet (famotidine 20 mg oral tablet) ??20 mg, By Mouth, 2 times a day Gabapentin 100 mg Capsule (gabapentin 100 mg oral capsule) ??100 mg, By Mouth, 2 times a day Insulin Glargine 100 units/mL Inj (Insulin Glargine Inj) ??18 units 0.18 mL, Subcutaneous Injection, Daily at bedtime Insulin Lispro 100 units/mL Inj (3mL) (Insulin LISPRO Sliding Scale) ??2-10 units, Subcutaneous Injection, 3 times a day before meals Levothyroxine 100 mcg Tablet (levothyroxine 0.1 mg oral tablet) ??100 mcg, By Mouth, Daily Lisinopril 20 mg Tablet (lisinopril 20 mg oral tablet) ??40 mg, By Mouth, Daily Metoprolol 50 mg XL Tablet (Toprol XL 50 mg oral tablet, extended release) ??50 mg, By Mouth, Daily NaCl 0.9% Flush 3ml (NaCL 0.9% Flush) ??3 mL, IV Push, Every 8 hours Pyridoxine 50 mg Tablet (pyridoxine 50 mg oral tablet) ??100 mg, By Mouth, Daily Rosuvastatin 20 mg Tablet (rosuvastatin 20 mg oral tablet) ??20 mg, By Mouth, Daily Vitamin B-12 ??1000 mcg Tablet (Vitamin B-12 1000 mcg oral tablet) ??1,000 mcg, By Mouth, Daily CONTINUOUS: (0) PRN: (9) Acetaminophen 325 mg Tablet (Acetaminophen Tablet) ??650 mg, By Mouth, Every 4 hours Dextromethorphan-Guaifenesin 20 mg-200 mg/10 mL Liqu UD (Robitussin DM Liquid) ??10 mL, By Mouth, Every 4 hours Loperamide 2 mg Capsule (loperamide 2 mg oral capsule) ??2 mg, By Mouth, Daily Melatonin 3 mg Tablet (Melatonin Tablet) ??3 mg, By Mouth, Daily at bedtime Milk of Magnesia (MOM Liquid) ??30 mL, By Mouth, Daily NaCl 0.9% Flush 3ml (NaCL 0.9% Flush) [...] COUNT & DIFF WBC 9.1 k/mm3 ()?? 09/18/2022 11:27 RBC 4.86 m/mm3 ()?? 09/18/2022 11:27 Hgb 14.3 Gm/dL ()?? 09/18/2022 11:27 Hct 45.2 % ()?? 09/18/2022 11:27 MCV 93.0 femtoliters ()?? 09/18/2022 11:27 MCH 29.4 pg ()?? 09/18/2022 11:27 MCHC 31.6 g/dL (Low)?? 09/18/2022 11:27 Platelet Count 238 k/mm3 ()?? 09/18/2022 11:27 RDW-SD 47.9 femtoliters (High)?? 09/18/2022 11:27 MPV 9.8 femtoliters ()?? 09/18/2022 11:27 Nucleated RBC (Automated) 0.0 #/100 WBC'S ()?? 09/18/2022 11:27 Abs. NRBC 0.0 k/mm3 ()?? 09/18/2022 11:27 Abs. Neut 6.8 k/mm3 ()?? 09/18/2022 11:27 Abs. Lymph 1.7 k/mm3 ()?? 09/18/2022 11:27 Abs. Creek 0.5 k/mm3 ()?? 09/18/2022 11:27 Abs. Eo 0.1 k/mm3 ()?? 09/18/2022 11:27 Abs. Baso 0.1 k/mm3 ()?? 09/18/2022 11:27 Neut % 74.3 % ()?? 09/18/2022 11:27 Lymph % 18.6 % ()?? 09/18/2022 11:27 Creek % 4.9 % ()?? 09/18/2022 11:27 Eos % 1.2 % ()?? 09/18/2022 11:27 Baso % 0.7 % ()?? 09/18/2022 11:27 Imm Gran 0.3 % ()?? 09/18/2022 11:27 Abs. Imm Gran 0.0 k/mm3 ()?? 09/18/2022 11:27 ?? CARDIAC High Sensitivity Troponin (HSTnT) 14 ng/L (High)?? 09/18/2022 12:56 ?? CHEM GENERAL Sodium 145 mmol/L ()?? 09/18/2022 11:27 Potassium 4.5 mmol/L ()?? 09/18/2022 11:27 Chloride 106 mmol/L ()?? 09/18/2022 11:27 Bicarbonate Level 28 mmol/L ()?? 09/18/2022 11:27 Anion Gap 11 ()?? 09/18/2022 11:27 Glucose Level 128 mg/dL (High)?? 09/18/2022 11:27 Glucose, POC 208 mg/dL (High)?? 09/18/2022 21:03 BUN 13 mg/dL ()?? 09/18/2022 11:27 Creatinine-Blood 0.8 mg/dL ()?? 09/18/2022 11:27 Estimated GFR Creatinine 80 ML/MIN/1.73 M2 ()?? 09/18/2022 11:27 Calcium 9.8 mg/dL ()?? 09/18/2022 11:27 Magnesium 2.1 mg/dL ()?? 09/18/2022 11:27 ?? ENDOCRINE/TUMOR MARKER TSH 0.03 uIU/mL (Low)?? 09/18/2022 11:27 Free T4 1.81 ng/dL (High)?? 09/18/2022 11:27 ?? UA/URINALYSIS Appear/Color, Urine LIGHT YELLOW ()?? 09/18/2022 12:56 Specific [place], Urine 1.008 ()?? 09/18/2022 12:56 pH, Urine 6.5 ()?? 09/18/2022 12:56 Albumin, Urine NEGATIVE ()?? 09/18/2022 12:56 Glucose, Urine NEGATIVE ()?? 09/18/2022 12:56 Ketones, Urine NEGATIVE ()?? 09/18/2022 12:56 Bilirubin, Urine NEGATIVE ()?? 09/18/2022 12:56 Hemoglobin, Urine NEGATIVE ()?? 09/18/2022 12:56 Nitrite, Urine POSITIVE (Abnormal)?? 09/18/2022 12:56 Leukocyte, Urine 3+ (Abnormal)?? 09/18/2022 12:56 Urobilinogen NORMAL mg/dL ()?? 09/18/2022 12:56 WBC's, Urine 152 /HPF (High)?? 09/18/2022 12:56 RBC's, Urine 1 /HPF ()?? 09/18/2022 12:56 Bacteria MODERATE HPF (Abnormal)?? 09/18/2022 12:56 Squamous Epith 1 /HPF ()?? 09/18/2022 12:56 Mucus SLIGHT /LPF ()?? 09/18/2022 12:56 Hold Urine Culture Testing available 48 hours from time of collection. ()?? 09/18/2022 12:56 ?? VIROLOGY Influenza A PCR NEGATIVE ()?? 09/18/2022 11:47 Influenza B PCR NEGATIVE ()?? 09/18/2022 11:47 RSV PCR NEGATIVE ()?? 09/18/2022 11:47 COVID-19 PCR Specimen Source NASAL ()?? 09/18/2022 11:47 COVID-19 PCR Result NEGATIVE ()?? 09/18/2022 11:47 ? Note * Event Display: Cardiac Rhythm Strips Authored Date: * Aracelis LORA, Jo: PERFORM Event Display: Discharge/Transfer Note Hospital Authored Date: [id number] Patient: ??CHRISTOPH JOSHI ? Age:??76 Years?Sex:??Female?:??1945?? Patient Information Discharge Location: [facility] Primary Care Physician: Ashley Morales MD Admit Date/Time: 09/18/22 11:12 Discharge Disposition Discharge Disposition: Home with Home Health Discharge Diagnosis Near syncope (R55) Orthostasis (I95.1) UTI (urinary tract infection) (N39.0) ?? _ Discharge Medications Acetaminophen (acetaminophen 325 mg oral tablet)?650?Milligram?2?tablet?By Mouth?Every 4 hours?as needed?as needed for pain Al Hydroxide/Mg Hydroxide/Simethicone (Mintox)?30?Milliliter?By Mouth?Every 4 hours?as needed?upset stomach Allopurinol (allopurinol 100 mg oral tablet)?100?Milligram?1?tablet?By Mouth?Daily Amlodipine (amLODIPine 5 mg oral tablet)?5?Milligram?1?tablet?By Mouth?Daily Aspirin (aspirin 81 mg oral delayed release tablet)?81?Milligram?1?tablet?By Mouth?Daily Cefpodoxime (cefpodoxime 100 mg oral tablet)?1?tab(s)?100?Milligram?By Mouth?Every 12 hours?for 5?Days Cholecalciferol (Vitamin D3 5000 intl units oral tablet)?1?tab(s)?125?Microgram?By Mouth?Daily Clopidogrel (Plavix 75 mg oral tablet)?75?Milligram?1?tablet?By Mouth?Daily Cyanocobalamin (Vitamin B-12 1000 mcg oral tablet)?1,000?Microgram?1?tablet?By Mouth?Daily Docusate (docusate sodium 100 mg oral capsule)?100?Milligram?1?capsule?By Mouth?2times a day Donepezil (donepezil 5 mg oral tablet)?5?Milligram?1?tablet?By Mouth?Daily at bedtime Famotidine (famotidine 40 mg oral tablet)?1?tab(s)?40?Milligram?By Mouth?Daily Gabapentin (gabapentin 100 mg oral capsule)?100?Milligram?1?capsule?By Mouth?2 times a day insulin degludec (Tresiba FlexTouch 200 units/mL subcutaneous solution)?18?unit(s)?Subcutaneous Injection?Daily at bedtime?rotate injection sites Levothyroxine (levothyroxine 0.1 mg oral tablet)?1?tab(s)?100?Microgram?By Mouth?Daily Lisinopril (lisinopril 40 mg oral tablet)?1?tab(s)?40?Milligram?By Mouth?Daily Loperamide (loperamide 2 mg oral capsule)?2?Milligram?1?capsule?By Mouth?Daily?as needed?do not excnot to exceed 8 capsules, or 16 mg, in 24 hours?Loose Stool Metoprolol (Metoprolol Succinate ER 25 mg oral tablet, extended release)?2?tab(s)?50?Milligram?By Mouth?Daily Milk of Magnesia (MOM Liquid)?30?Milliliter?By Mouth?Daily?as needed?as needed for constipation Polyethylene Glycol 3350 (polyethylene glycol 3350 oral powder for reconstitution)?17?gram?By Mouth?2 times a day?as needed?Constipation?dissolve in water or juice before taking Pyridoxine (Vitamin B6)?100?Milligram?Daily Rosuvastatin (rosuvastatin 20 mg oral capsule)?1?capsule?20?Milligram?By Mouth?Daily Senna (Senna 8.6 mg oral tablet)?8.6?Milligram?1?tab(s)?By Mouth?Daily at bedtime ? Durable Medical Equipment Discharge recommendations: Home (09/19/22) Name of Agency #1: Savita Larsen (Home Health) (12/06/21) Service Categories #1: Physical Therapy (12/06/21) Service Comments #1: Savita Larsen ([facility]) ??will contact you for a visit if you donot hear from them please call ??[phone] (12/06/21) Ambulatory devices needed: Cane (09/18/22) ? Allergies Allergies ?(Active and Proposed Allergies [...] status: disruptive effects ? Hospital Course ?? 76-year-old female history of sick sinus syndrome status post pacemaker in 2018, CAD, diabetes, hypertension hyperlipidemia and continued tobacco abuse who is presenting from her assisted living facility for lightheadedness. The patient states that she went to bed last night feeling well. She woke up this morning feeling alright but then throughout the morning she became more lightheaded, feelinglike she was going to pass out. She denies any spinning sensations, or feelings of imbalance. She denies chest pain, shortness of breath, abdominal pain, fevers or chills. She does report urinary frequency but no dysuria. ?? In the ED, Tmax is 99.1. SBP is in the 170s and vitals signs are otherwise stable. EKG shows A-paced rhythm, rate 60, no acute ischemia. CT head is nonacute. CXR is nonacute Laboratory data is significant for TSH 1.81, HS troponin 15, 14. UA suggests UTI with positive nitrites and 153 WBCs. Influenza, RSV and Covid are negative. The patient was give Ceftriaxone in the ED She is admitted for UTI and near syncope. ?? Near syncope: Work up for cardiac etiology of her near syncopal episode is reassuring.?? EKG is nonischemic.?? Troponin is??flat. EKG without any acute ST-T wave changes. Troponins negative. Orthostatics were positive though notes??significant hypotension, given bolus and feeling much better. ?? UTI: -Patient was started on Ceftriaxone in the ED. -Cultures growing E. coli, switched to cefpodoxime to complete on discharge for the course ?? CAD: -Continue home regimen of ASA, metoprolol, rosuvastatin and Plavix. ?? Diabetes: -Patient takes Tresiba at home, which is not on formulary, but there is 1:1 conversion with glargine.?? -Continue Glargine 18 units HS. -Monitor glucose POC before meals and HS. -Hypoglycemic measures ordered. ?? Hypertension: -Continue amlodipine, lisinopril and metoprolol. ?? Hypothyroidism: -Continue home dose of levothyroxine. ?? Tobacco Use. -Patient counseled on risks of smoking.?? She declines nicotine patch at this time. ?? Diet:?? Cardiac diabetic. ?? Code Status:?? Full code. ?? Patient seen by physical therapy recommended safe for home DC with??home PT services. Patient??doing much better today denies any dizziness lightheadedness,??ambulating with physical therapy without any issues. Being discharged home??with PT services Objective Vital Signs?? Temperature: 98.6 DegF (09/19/22 10:00:00) Temperature Route: Oral (09/19/22 10:00:00) Pulse Rate: 59 bpm (09/19/22 09:00:00) Pulse Rate, Lyin bpm (09/19/22 10:40:00) Systolic Blood Pressure, Lyin mm Hg (09/19/22 10:40:00) Diastolic Blood Pressure, Lyin mm Hg (09/19/22 10:40:00) Pulse Rate, Sittin bpm (09/19/22 10:40:00) Systolic Blood Pressure, Sittin mm Hg (09/19/22 10:40:00) Diastolic Blood Pressure, Sittin mm Hg (09/19/22 10:40:00) Pulse Rate, Standin bpm (09/19/22 10:40:00) Systolic Blood Pressure, Standin mm Hg (09/19/22 10:40:00) Diastolic Blood Pressure, Standin mm Hg (09/19/22 10:40:00) Respiratory Rate: 18 br/min (09/19/22 10:16:00) Systolic Blood Pressure:??158 mm Hg??High (09/19/22 09:15:00) Systolic Blood Pressure:??158 mm Hg??High (09/19/22 09:15:00) Diastolic Blood Pressure: 71 mm Hg (09/19/22 09:15:00) Diastolic Blood Pressure: 71 mm Hg (09/19/22 09:15:00) Blood pressure sites: Arm, right (09/19/22 08:10:00) Mean Arterial Pressure: 103 mm Hg (09/19/22 04:02:00) Pulse Pressure: 87 mm Hg (09/19/22 04:02:00) Oxygen Saturation: 95 % (09/19/22 08:10:00) Mode of Delivery (Oxygen): Room air (09/19/22 08:10:00) Early Warning Score: 2 (09/19/22 13:42:03) ? . Physical Exam Elderly female not in any acute distress pleasant. HEENT PERRLA, EOMI Neck supple Chest is clear to auscultation Heart S1-S2 regular Abdomen soft nontender bowel sounds present Extremities no pedal edema??pulses present bilaterally. HAULAGE BOSS benítez awake alert oriented x3 no gross focal neurological deficit. Pending Results Add On Lab Order ordered on 09/18/2022 Hold Lavender Tube (BB) ordered on 09/18/2022 Urine Culture ordered on 09/18/2022 Follow-Up Appointments Added Follow Up ?Time Frame ?Comments Carmen LORAAshley?1 to 2 weeks Patient Instructions Follow-up with your primary care physician in a week upon discharge. Make sure to keep well-hydrated Take antibiotics as prescribed. Post Discharge Care Diet: Cardiac diet Activity: Ambulate as tolerated Condition: Fair Prognosis: Fair Discharge ?09/19/22 14:38:00 EDT Discharge Prescriptions ?ePrescribed, ??09/19/22 14:38:00 EDT Home Health Face to Face ^HomeHealthFTF Results Discharge Labs BLOOD COUNT & DIFF WBC 8.6 k/mm3 ()?? 09/19/2022 00:39 RBC 4.56 m/mm3 ()?? 09/19/2022 00:39 Hgb 13.2 Gm/dL ()?? 09/19/2022 00:39 Hct 42.4 % ()?? 09/19/2022 00:39 MCV 93.0 femtoliters ()?? 09/19/2022 00:39 MCH 28.9 pg ()?? 09/19/2022 00:39 MCHC 31.1 g/dL (Low)?? 09/19/2022 00:39 Platelet Count 207 k/mm3 ()?? 09/19/2022 00:39 RDW-SD 48.7 femtoliters (High)?? 09/19/2022 00:39 MPV 9.6 femtoliters ()?? 09/19/2022 00:39 Nucleated RBC (Automated) 0.0 #/100 WBC'S ()?? 09/19/2022 00:39 Abs. NRBC 0.0 k/mm3 ()?? 09/19/2022 00:39 Abs. Neut 6.8 k/mm3 ()?? 09/18/2022 11:27 Abs. Lymph 1.7 k/mm3 ()?? 09/18/2022 11:27 Abs. Creek 0.5 k/mm3 ()?? 09/18/2022 11:27 Abs. Eo 0.1 k/mm3 ()?? 09/18/2022 11:27 Abs. Baso 0.1 k/mm3 ()?? 09/18/2022 11:27 Neut % 74.3 % ()?? 09/18/2022 11:27 Lymph % 18.6 % ()?? 09/18/2022 11:27 Creek % 4.9 % ()?? 09/18/2022 11:27 Eos % 1.2 % ()?? 09/18/2022 11:27 Baso % 0.7 % ()?? 09/18/2022 11:27 Imm Gran 0.3 % ()?? 09/18/2022 11:27 Abs. Imm Gran 0.0 k/mm3 ()?? 09/18/2022 11:27 ?? CARDIAC High Sensitivity Troponin (HSTnT) 16 ng/L (High)?? 09/19/2022 00:43 ? CHEM GENERAL Sodium 145 mmol/L ()?? 09/19/2022 00:43 Potassium 3.9 mmol/L ()?? 09/19/2022 00:43 Chloride 110 mmol/L (High)?? 09/19/2022 00:43 Bicarbonate Level 23 mmol/L ()?? 09/19/2022 00:43 Anion Gap 12 ()?? 09/19/2022 00:43 Glucose Level 138 mg/dL (High)?? 09/19/2022 00:43 Glucose, POC 159 mg/dL (High)?? 09/19/2022 12:44 BUN 15 mg/dL ()?? 09/19/2022 00:43 Creatinine-Blood 0.8 mg/dL ()?? 09/19/2022 00:43 Estimated GFR Creatinine 78 ML/MIN/1.73 M2 ()?? 09/19/2022 00:43 Calcium 9.0 mg/dL ()?? 09/19/2022 00:43 Magnesium 2.1 mg/dL ()?? 09/18/2022 11:27 ?? ENDOCRINE/TUMOR MARKER TSH 0.03 uIU/mL (Low)?? 09/18/2022 11:27 Free T4 1.81 ng/dL (High)?? 09/18/2022 11:27 ?? UA/URINALYSIS Appear/Color, Urine LIGHT YELLOW ()?? 09/18/2022 12:56 Specific [place], Urine 1.008 ()?? 09/18/2022 12:56 pH, Urine 6.5 ()?? 09/18/2022 12:56 Albumin, Urine NEGATIVE ()?? 09/18/2022 12:56 Glucose, Urine NEGATIVE ()?? 09/18/2022 12:56 Ketones, Urine NEGATIVE ()?? 09/18/2022 12:56 Bilirubin, Urine NEGATIVE ()?? 09/18/2022 12:56 Hemoglobin, Urine NEGATIVE ()?? 09/18/2022 12:56 Nitrite, Urine POSITIVE (Abnormal)?? 09/18/2022 12:56 Leukocyte, Urine 3+ (Abnormal)?? 09/18/2022 12:56 Urobilinogen NORMAL mg/dL ()?? 09/18/2022 12:56 WBC's, Urine 152 /HPF (High)?? 09/18/2022 12:56 RBC's, Urine 1 /HPF ()?? 09/18/2022 12:56 Bacteria MODERATE HPF (Abnormal)?? 09/18/2022 12:56 Squamous Epith 1 /HPF ()?? 09/18/2022 12:56 Mucus SLIGHT /LPF ()?? 09/18/2022 12:56 Hold Urine Culture Testing available 48 hours from time of collection. ()?? 09/18/2022 12:56 ? VIROLOGY Influenza A PCR NEGATIVE ()?? 09/18/2022 11:47 Influenza B PCR NEGATIVE ()?? 09/18/2022 11:47 RSV PCR NEGATIVE ()?? 09/18/2022 11:47 COVID-19 PCR Specimen Source NASAL ()?? 09/18/2022 11:47 COVID-19 PCR Result NEGATIVE ()?? 09/18/2022 11:47 ? Microbiology ?? COVID-19, RSV, and Flu A/B, Rapid PCR?? Completed?? Source: Nasal Body Site: Nose Collected Dt/Tm: 09/18/2022 11:25 Last Updated Dt/Tm: 09/18/2022 12:59 ? Imaging(s) ?CT Head/Brain W/O Contrast ?? 09/18/2022 13:37??by Abhi West MD ?no acute abnormality ? 35??minutes spent on discharge * Chelita Bailey LPN: PERFORM Event Display: Patient Education/Instruction Authored Date: [id number] Inpatient Adult Discharge Instructions [address] [address] Name: CHRISTOPH JOSHI : 1945 Visit: 09/18/2022 11:12:00 Current Date: 09/19/2022 15:17 Account: [id number] Inpatient Adult Discharge Instructions We would like [...] and their families. Surveys are administered by [employer] ?? If further treatment with your primary care physician or another doctor is recommended, it is important for you to keep the appointment. Call your primary care physician or return to the Emergency Department immediately if your condition worsens, fails to improve, or new symptoms develop. If you need to find a doctor, you can call [facility] for a referral at [phone] or toll free at [phone] or log in to [email or web address].. ?? You can view and manage your care through the patient portal or by using a health care rosalio of your choosing. [employer] is a website that allows you to securely view your medical information including your hospital discharge summary, office visit summaries, medications and follow-up visits. You can also request appointments, renew medications, and request access to your medical information using a health care rosalio of your choosing, or just ask a question. You can enroll at [email or web address] or register during your next office visit. You have been discharged from [facility], Patient Care Unit: D3B. If you have any questions regarding these instructions after you leave, please call us and we will be happy to assist you. [facility] Your Care Team Attending Physician Jo Hsu MD Discharging Providers Jo Hsu MD Reason for Your Visit Dizziness Your Diagnosis Dizziness Near syncope Orthostasis UTI (urinary tract infection) Tests Performed Below is a partial list of the tests performed during your hospitalization. You may have had other tests and procedures not included in this list. Please discuss all test results with your provider. Basic Metabolic Panel CBC CBC w/ Differential COVID-19, RSV, and Flu A/B, Rapid PCR FREE T4 GLUCOSE POC High??Sensitivity??Troponin T Magnesium Level Troponin T, High Sensitivity TSH with T4 Reflex (Adults Only) Urinalysis w/hold for Urine Culture CT Head/Brain W/O Contrast XR Chest Portable Primary Care Provider Ashley Morales MD Advance Directive . Discharge Vitals Temperature: 98.6 DegF Height: 160 cm Pulse Rate: 59 bpm Weight: 62 kg Respiratory Rate: 18 br/min Body Mass Index: 24.22 kg/m2 Systolic Blood Pressure:??158 mm Hg??High Body surface area: 1.66 Systolic Blood Pressure:??158 mm Hg??High ?? Diastolic Blood Pressure: 71 mm Hg ?? Diastolic Blood Pressure: 71 mm Hg ?? Oxygen Saturation: 95 % ?? Studies Pending All tests and labs ordered during this hospital stay have been completed unless listed below. Please discuss all pending results with your provider listed above in these instructions. ?? Add On Lab Order Hold Lavender Tube (BB) Urine Culture What to do next Instructions From Your Doctor Follow-up with your primary care physician in a week upon discharge. Make sure to keep well-hydrated Take antibiotics as prescribed. Discharge Orders Diet:??Cardiac diet Activity:??Ambulate as tolerated Condition:??Fair Prognosis:??Fair You Need to Schedule the Following Appointments Follow Up with??Ashley Morales MD When??Within 1 to 2 weeks Where: [address] [place] [address]- Discharge Medications CHRISTOPH JOSHI :1945 Visit Date:09/18/2022 Medications: Please continue your medications until treatment is completed or stopped by your provider. Medications not listed below should be discontinued. Discuss any questions related to medications with your provider. What How Much When Instructions Next Dose New Cefpodoxime (cefpodoxime 100 mg oral tablet) 1 tab(s) Oral Every 12 hours Duration: 5 Days Pickup at [place] [address] 09/20/22 ?? Unchanged Acetaminophen (acetaminophen 325 mg oral tablet) 2 tab(s) Oral Every 4 hours as needed for as needed for pain as needed follow as prescribe Unchanged Al Hydroxide/ Mg Hydroxide/ Simethicone (Mintox) 30 Milliliter Oral Every 4 hours as needed for upset stomach as needed follow as prescribe Unchanged Allopurinol (allopurinol 100 mg oral tablet) 1 tab(s) Oral Daily 09/20/22 Unchanged Amlodipine (amLODIPine 5 mg oral tablet) 1 tab(s) Oral Daily 09/20/22 Unchanged Aspirin (aspirin 81 mg oral delayed release tablet) 1 tab(s) Oral Daily 09/20/22 Unchanged Cholecalciferol (Vitamin D3 5000 intl units oral tablet) 1 tab(s) Oral Daily 09/20/22 Unchanged Clopidogrel (Plavix 75 mg oral tablet) 1 tab(s) Oral Daily 09/20/22 Unchanged Cyanocobalamin (Vitamin B-12 1000 mcg oral tablet) 1 tab(s) Oral Daily 09/20/22 Unchanged Docusate (docusate sodium 100 mg oral capsule) 1 capsule Oral Twice a day 09/19/22 evening Unchanged Donepezil (donepezil 5 mg oral tablet) 1 tab(s) Oral Daily at Bedtime 09/19/22 bedtime Unchanged Famotidine (famotidine 40 mg oral tablet) 1 tab(s) Oral Daily 09/20/22 Unchanged Gabapentin (gabapentin 100 mg oral capsule) 1 capsule Oral Twice a day 09/19/22 evening Unchanged insulin degludec (Tresiba FlexTouch 200 units/ mL subcutaneous solution) 18 unit(s) Subcutaneous Injection Daily at Bedtime rotate injection sites ?? 09/19/22 bedtime Unchanged Levothyroxine (levothyroxine 0.1 mg oral tablet) 1 tab(s) Oral Daily 09/20/22 Unchanged Lisinopril (lisinopril 40 mg oral tablet) 1 tab(s) Oral Daily 09/20/22 Unchanged Loperamide (loperamide 2 mg oral capsule) 1 capsule Oral Daily as needed for Loose Stool do not exc not to exceed 8 capsules, or 16 mg, in 24 hours ?? as needed follow as prescribe Unchanged Metoprolol (Metoprolol Succinate ER 25 mg oral tablet, extended release) 2 tab(s) Oral Daily 09/20/22 Unchanged Milk of Magnesia (MOM Liquid) 30 Milliliter Oral Daily as needed for as needed for constipation as needed follow as prescribe Unchanged Miscellaneous Rx (BD PEN NEEDL MIS [id number] [place]) Unchanged Polyethylene Glycol 3350 (polyethylene glycol 3350 oral powder for reconstitution) 17 gram Oral Twice a day as needed for Constipation dissolve in water or juice before taking ?? as needed follow as prescribe Unchanged Pyridoxine (Vitamin B6) 100 Milligram Daily 09/20/22 Unchanged Rosuvastatin (rosuvastatin 20 mg oral capsule) 1 capsule Oral Daily 09/20/22 Unchanged Senna (Senna 8.6 mg oral tablet) 1 tab(s) Oral Daily at Bedtime 09/19/22 bedtime Pharmacy Information [facility] 3: [address] [place], [place] [id number] [phone] Test Results Below is a partial list of the most recent Laboratory test results done prior to this discharge. You may have had other tests and procedures not included in this list. Please discuss all test resultswith your provider. Basic Metabolic Panel (09/19/2022) ???Sodium - 145 mmol/L???Potassium - 3.9 mmol/L???Chloride - 110 mmol/L???Bicarbonate Level - 23 mmol/L???Anion Gap - 12???Glucose Level - 138 mg/dL???BUN - 15 mg/dL???Creatinine-Blood - 0.8 mg/dL???Estimated GFR Creatinine - 78 ML/MIN/1.73 M2???Calcium - 9.0 mg/dL CBC (09/19/2022) ???WBC - 8.6 k/mm3???RBC - 4.56 m/mm3???Hgb - 13.2 Gm/dL???Hct - 42.4 %???MCV - 93.0 femtoliters???MCH - 28.9 pg???MCHC - 31.1 g/dL???Platelet Count - 207 k/mm3???RDW-SD - 48.7 femtoliters???MPV - 9.6 femtoliters???Nucleated RBC (Automated) - 0.0 #/100 WBC'S???Abs. NRBC - 0.0 k/mm3 CBC w/ Differential (09/18/2022) ???WBC - 9.1 k/mm3???RBC - 4.86 m/mm3???Hgb - 14.3 Gm/dL???Hct - 45.2 %???MCV - 93.0 femtoliters???MCH - 29.4 pg???MCHC - 31.6 g/dL???Platelet Count - 238 k/mm3???RDW-SD - 47.9 femtoliters???MPV - 9.8 femtoliters???Nucleated RBC (Automated) - 0.0 #/100 WBC'S???Abs. NRBC - 0.0 k/mm3???Abs. Neut - 6.8 k/mm3???Abs. Lymph - 1.7 k/mm3???Abs. Creek - 0.5 k/mm3???Abs. Eo - 0.1 k/mm3???Abs. Baso - 0.1 k/mm3???Neut % - 74.3 %???Lymph % - 18.6 %???Creek % - 4.9 %???Eos % - 1.2 %???Baso % - 0.7 %???Imm Gran- 0.3 %???Abs. Imm Gran - 0.0 k/mm3 COVID-19, RSV, and Flu A/B, Rapid PCR (09/18/2022) ???Influenza A PCR - NEGATIVE???Influenza B PCR - NEGATIVE???RSV PCR - NEGATIVE???COVID-19 PCR Specimen Source - NASAL???COVID-19 PCR Result - NEGATIVE FREE T4 (09/18/2022) ???Free T4 - 1.81 ng/dL GLUCOSE POC (09/19/2022) ???Glucose, POC - 159 mg/dL High??Sensitivity??Troponin T (09/18/2022) ???High Sensitivity Troponin (HSTnT) - 15 ng/L Magnesium Level (09/18/2022) ???Magnesium - 2.1 mg/dL Troponin T, High Sensitivity (09/19/2022) ???High Sensitivity Troponin (HSTnT) - 16 ng/L TSH with T4 Reflex (Adults Only) (09/18/2022) ???TSH - 0.03 uIU/mL Urinalysis w/hold for Urine Culture (09/18/2022) ???Appear/Color, Urine - LIGHT YELLOW???Specific [place], Urine - 1.008???pH, Urine - 6.5???Albumin, Urine - NEGATIVE???Glucose, Urine - NEGATIVE???Ketones, Urine - NEGATIVE???Bilirubin, Urine - NEGATIVE???Hemoglobin, Urine - NEGATIVE???Nitrite, Urine - POSITIVE???Leukocyte, Urine - 3+???Urobilinogen - NORMAL???WBC's, Urine - 152 /HPF???RBC's, Urine - 1 /HPF???Bacteria - MODERATE???Squamous Epith- 1 /HPF???Mucus - SLIGHT???Hold Urine Culture - Testing [...] Belongings I fully understand and agree that [facility] accepts no responsibility for all [...] witness Date for Pt to Sign Valuables/Belongings: 09/18/22 17:38:00 ?? Other Discharge Information ? Pulmonary Rehab [...] are strongly encouraged to quit. Please call [employer] at [phone] or [phone] or log in to [email or web address] for referrals to smoking cessation programs. ?? 100 Suicide & Crisis Lifeline is available 25/12 if you or someone you know needs to find a reason to keep living. By calling 076 you'll be connected to a skilled, trained counselor at a crisis center in your area. INPATIENT DISCHARGE INSTRUCTIONS SIGNATURE PAGE MADELYN, JULIA Location:[facility] Registration Date and Time:09/18/2022 11:12 EDT Primary Care Physician: Ashley Morales MD, I CHRISTOPH JOSHI, have received the above patient education materials/instructions and have verbalized understanding. If ambulance or transport services are being used I further acknowledge being given a choice of service. ?? If you need to contact me, please call me at this number: . Patient/County Coroner Name: Patient/County Coroner Signature: Relationship to Patient: Witness Name/Signature: Date: CT Head WO contrast * [facility] , CIS S: TRANSCRIBE Abhi West MD: VERIFY Event Display: Result: Authored Date: [id number] CT Head/Brain W/O Contrast INDICATION: Hx of Present Illness: Dizziness; Reason: Trauma; Clinical Question(s): Hematoma; OrderComment: TECHNIQUE: Noncontrast head CT using axial technique and reconstructed in axial and coronal planes.Iterative reconstruction techniques are used to optimize dose and image quality. COMPARISON: CT head without contrast 02/23/2022.. FINDINGS: Pediatric Associate view findings, lines and tubes: None. BRAIN AND EXTRA-AXIAL SPACES: No parenchymal hemorrhage, midline shift, or mass effect. Bernard-white matter differentiation is wellpreserved. No acute infarct. Negative insular ribbon sign. Atherosclerotic vascular calcification of the carotid arteries but negative hyperdense vessel sign. Unchanged small right thalamic infarct. Moderate prominence of the ventricles and sulci consistent with parenchymal volume loss. Moderate low-density white matter changes. No subarachnoid hemorrhage. No subdural or epidural collection. CALVARIUM, SKULL BASE, AND SOFT TISSUES: No fractures or suspicious bony lesions. Mild mucosal thickening in the ethmoid and maxillary sinuses. Remainder of the paranasal sinuses are clear. Mastoid air cells are clear. Status-post bilateral lens extraction. The extracranial soft tissues are unremarkable. IMPRESSION: No acute intracranial pathology. No interval change from 02/23/2022. WSN: [id number] Ordering Physician: Jesus Mooney Dictated By: Abhi West MD Dictated Date/Time: 09/18/22 1:42 pm Reviewed By: Abhi West MD Signed By: Abhi West MD Signed Date/Time: 09/18/22 1:42 pm Transcribed By: FERMIN Transcribed Date/Time: 09/18/22 1:38 pm Portable XR Chest Views * [facility] , CIS S: TRANSCRIBE Jesus Marcus MD: VERIFY Event Display: Result: Authored Date: [id number] AP upright portable chest dated September 18, 2022 at 1221 hours. Comparison films are from February 24, 2022. HISTORY: Shortness of breath. FINDINGS: The cardiac silhouette is at the upper limits of normal limits for size. Mural calcifications are present in the aorta. No airspace infiltrate or pleural effusion is identified. A pacemaker is noted on the left. Wires extend to overlie the heart. Degenerative changes are noted in the spine and shoulders. IMPRESSION: No evidence of acute pulmonary disease. Stable mild cardiomegaly. Pacemaker in place. Examination [id number]. Thank you for allowing me to participate in the care of this patient. WSN: [id number] Ordering Physician: Jesus Mooney Dictated By: Jesus Marcus MD Dictated Date/Time: 09/18/22 1:55 pm Reviewed By: Jesus Marcus MD Signed By: Jesus Marcus MD Signed Date/Time: 09/18/22 1:55 pm Transcribed By: FERMIN Transcribed Date/Time: 09/18/22 1:54 pm Patient Care team information Care Team Personnel Name: Ashley Morales MD Position: [facility] Physician (General Medicine) Member Role: PCP Address: Address: [address] [place] [address]- Name: Thom Kuo RN Position: [facility] RN Member Role: Primary Care Nurse Name: Ileana Khan RN Position: [facility] RN Member Role: Primary Care Nurse Name: Becky Quezada RN Position: [facility] SN RN Member Role: Primary Care Nurse Name: Chelita Bailey LPN Position: [facility] RN Member Role: Primary Care Nurse Name: Frank LANDAVERDE Attending Position: [facility] ED Medicine Name: Rosie Roman Position: [facility] ED TA [facility] Name: Jesus Mooney DO Position: [facility] Resident Member Role: ED Resident Address: Address: [address] [place] [address] [place] [address]- Name: Jose Camara RN Position: [facility] ED RN W/OE and Tasks Member Role: Patient Care Provider
--- OUTSIDE RECORDS SUMMARY | 2023-07-20 23:05 | XMS_ITS | Continuity of Care Document ---
Author Name Unknown Organization [facility] ter Address [address] [place] [id number] Care Team Providers Care Customer Solutions Architect Name Role Phone Ashley Morales MD Primary Care Physician [phone] Encounter [facility] Date(s): 11/03/22 - 11/04/[address] [address]- Discharge Disposition: A-Transfer SNF Attending Physician: Octavio Franco DO Admitting Physician: Bassam Ptael MD Referring Physician: Not on Staff, Referring MD Allergies, Adverse Reactions, Alerts Substance Reaction Severity Status ciprofloxacin Active azithromycin Nausea and vomiting status: disruptive effects Active simvastatin Active sulfa drugs Nausea and vomiting Active rosuvastatin 1 Active Cefuroxime Axetil Acute diarrhea Active cefTRIAXone Acute diarrhea Active oxyCODONE Active levoFLOXacin 2 Active metFORMIN Acute diarrhea Active cephalexin Nausea and vomiting Active sertraline Anxiety Active citalopram Active Nitrofurantoin Monohydrate/Macrocrystals Active penicillin Rash Active atorvastatin Active repaglinide Nausea and vomiting Active pioglitazone Active 1Patient taking rosuvastatin as outpatient (active prescription as of 09/2021). 2numb lips Immunizations Given and Recorded Vaccine Date Status Refusal Reason SARS-CoV-2 (COVID-19) mRNA BNT-162b2 vac 04/06/21 Recorded SARS-CoV-2 (COVID-19) mRNA BNT-162b2 vac 08/12/20 Recorded SARS-CoV-2 (COVID-19) mRNA BNT-162b2 vac 07/22/20 Recorded Medications Acetaminophen Tablet 650 mg, Tablet, By Mouth, Once, STAT, 11/03/22 20:43:00 EDT, Stop date 11/03/22 20:43:00 EDT Start Date: 11/03/22 Stop Date: 11/03/22 Status: Completed allopurinol 100 mg oral tablet 100 mg, 1, tablet, By Mouth, Daily, (LAST FILLED [facility] 10/13/22), Refills 0, Maintenance, 09/18/22 16:24:00 EDT, Partial fill upon patient request if the prescription is for a schedule II opioid drug. Start Date: 09/18/22 Status: Ordered amLODIPine 5 mg oral tablet 1 tablet = 5 mg, By Mouth, Daily, (LAST FILLED [facility] 10/06/22), Maintenance, 10/28/22 13:36:00 EDT, Tablet, Partial fill upon patient request if the prescription is for a schedule II opioid drug. Start Date: 10/28/22 Status: Ordered aspirin 81 mg oral delayed release tablet 81 mg, 1, tablet, By Mouth, Daily, # 30 tablet, Refills 0, Tot. Refills 0, Maintenance, 02/24/22 16:24:00 EDT, Route to Pharmacy Electronically, [facility] 3, Partial fill upon patient request if the prescription is for a schedule II opioi... Start Date: 02/24/22 Status: Ordered BD PEN NEEDL MIS [id number] [place] BD PEN NEEDL MIS [id number] [place], 0 Refills, Maintenance, 09/18/22 15:29:00 EDT Start Date: 09/18/22 Status: Ordered donepezil 5 mg oral tablet 5 mg, 1, tablet, By Mouth, Daily at bedtime, (LAST FILLED [facility] 10/12/22), Refills 0,Maintenance, 11/08/19 12:35:00 EDT Start Date: 11/08/19 Status: Ordered famotidine 40 mg oral tablet 1 tablet = 40 mg, By Mouth, Daily, (LAST FILLED [facility] 10/04/22) Start Date: 09/18/22 Status: Ordered gabapentin 100 mg oral capsule 100 mg, 1, capsule, By Mouth, 2 times a day, (LAST FILLED [facility] 10/02/22), Refills 0, Maintenance, 11/08/19 12:31:00 EDT Start Date: 11/08/19 Status: Ordered levothyroxine 0.1 mg oral tablet 1 tablet = 100 mcg, By Mouth, Daily, (LAST FILLED [facility] 10/03/22), Maintenance, 10/28/22 13:37:00 EDT, Tablet, Partial fill upon patient request if the prescription is for a schedule II opioid drug. Start Date: 10/28/22 Status: Ordered lisinopril 40 mg oral tablet 1 tablet = 40 mg, By Mouth, Daily, (LAST FILLED [facility] 09/29/22), 0 Refills, Maintenance, 12/06/21 9:32:00 [...] 50 mg, By Mouth, Daily, (LAST FILLED [facility] 10/12/22) Start Date: 12/06/21 Status: Ordered metroNIDAZOLE 500 mg oral tablet 1 tablet = 500 mg, By Mouth, Every 8 hours, 0 Refills, Maintenance, 11/04/22 12:40:00 EDT, Tablet, Partial fill upon patient request if the prescription is for a schedule II opioid drug. Start Date: 11/04/22 Stop Date: 11/11/22 Status: Ordered morphine 15 mg oral tablet, immediate release 0.5 tablet = 7.5 mg, By Mouth, Every 4 hours, PRN for pain, # 15 tablet, 0 Refills, Maintenance, 10/31/22 8:05:00 EDT, Tablet, [facility] 3, Partial fill upon patient request if the prescription is for a schedule II opioid drug., 160, cm,... Start Date: 10/31/22 Stop Date: 11/05/22 Status: Ordered Plavix 75 mg oral tablet 75 mg, 1, tablet, By Mouth, Daily, (LAST FILLED [facility] 10/12/22), Refills 0, Maintenance, 11/08/19 12:35:00 [...] 1 Refills, Maintenance, 01/27/22 10:57:00 EDT, Capsule, [facility] 3, Partial fill upon patient request if the prescription is for a schedule II opioid drug., 160, cm, 12/07/21 7:04:00 EDT,... Start Date: 01/27/22 Status: Ordered Senna 8.6 mg oral tablet 8.6 mg, 1, tablet, By Mouth, Daily at bedtime, (LAST FILLED [facility] 10/25/22), Refills 0, Maintenance, 09/18/22 16:26:00 EDT, Partial fill upon patient request if the prescription is for a schedule II opioid drug. Start Date: 09/18/22 Status: Ordered Tresiba FlexTouch 100 units/mL subcutaneous solution = 18 units, Subcutaneous Infusion, Daily, 0 Refills, Maintenance, 11/04/22 12:38:00 EDT, Partial fill upon patient request if the prescription is for a schedule II opioid drug. Start Date: 11/04/22 Status: Ordered Tylenol 325 mg oral capsule 2 capsule = 650 mg, By Mouth, Every 4 hours, PRN as needed for fever, # 90 capsule, 0 Refills, Maintenance, 10/18/22 4:27:00 EDT, Capsule, [facility], Partial fill upon patient request if the prescription is for a schedule II opioid drug., 1... Start Date: 10/18/22 Status: Ordered Vitamin B-12 1000 mcg oral tablet 1,000 mcg, 1, tablet, By Mouth, Daily, (LAST FILLED [facility] 10/06/22), Refills 0, Maintenance, 09/18/22 15:30:00 EDT, Partial fill upon patient request if the prescription is for a schedule II opioid drug. Start Date: 09/18/22 Status: Ordered Vitamin B6 100 mg oral tablet 1 tablet = 100 mg, By Mouth, Daily, (LAST FILLED [facility] 10/25/22), Maintenance, 10/28/22 13:42:00 EDT, Tablet, Partial fill upon patient request if the prescription is for a schedule II opioid drug. Start Date: 10/28/22 Status: Ordered Vitamin D3 5000 intl units oral tablet 1 tablet = 125 mcg, By Mouth, Daily, (LAST FILLED [facility] 09/29/22), 0 Refills, Maintenance, 01/26/22 23:18:00 [...] Exam Date Time Procedure Performing Provider Status 11/03/22 7:[address] Abdomen and Pelvis W/O Contrast Mari Andersen (Verified) Notes: (CT Abdomen and Pelvis W/O Contrast) Reason For Exam: Pain RESULT: CT Abdomen and Pelvis W/O Contrast CT Abdomen and Pelvis W/O Contrast REASON: Pain; Clinical Question(s): Calculus TECHNIQUE: Spiral CT through the abdomen and pelvis without IV contrast formatted in 3 planes. Thisstudy was performed without oral contrast. Weight- based protocol using automatic tube modulation was used to optimize exposure parameters. CTDIvol Body: 10.70 mGy, DLP Body: 473 mGy*cm. COMPARISON: CT abdomen and pelvis from 10/28/2022. FINDINGS: Project Engineering Manager View Findings, Lines and Tubes: Partially visualized leads of the cardiac pacer device. Lung bases are clear. No pleural effusion. The heart is normal in size. Diaphragm: Normal. Liver: Normal. Gallbladder: No CT evidence of gallbladder pathology. Bile ducts: No biliary ductal dilation. Spleen: Normal. Pancreas: Normal. Adrenal glands: Normal right adrenal gland. Unchanged 1.4 cm nodule in the left adrenal gland, consistent with an adrenal adenoma. Kidneys and ureters: No hydronephrosis, or noncontrast evidence of suspicious masses. Unchanged bilateral nonobstructing renal calculi (left greater than right). Unchanged position of the 0.2 cm calculus in the proximal left ureter with mild upstream hydroureter and mild fullness of the left proximal collecting system. Bladder: Normal. Reproductive organs: The uterus is not seen and likely surgically absent. Stomach, small bowel, and large bowel: Normal caliber stomach and small bowel loops. Significant stool retention in the sigmoid colon with unchanged extension measuring up to 8.4 cm. Moderate colonicdiverticulosis without any evidence of acute diverticulitis. Appendix: Not seen, but no evidence of appendicitis. Peritoneum and retroperitoneum: No ascites or pneumoperitoneum. No omental or mesenteric lesions. Lymph nodes: No enlarged lymph nodes. Blood vessels: Unchanged infrarenal aortic aneurysm measuring up to 3.4 cm. Severe atherosclerotic vascular calcification. Abdominal and pelvic wall: Unremarkable. Bones: No acute abnormality. Moderate degenerative changes of the spine, most prominent at the L5-S1 level. IMPRESSION: 1. Unchanged 0.2 cm calculus in the proximal left ureter with mild upstream hydroureter and dilation of the collecting system. 2. Unchanged bilateral nonobstructing renal calculi. 3. Severe stool retention in the rectosigmoid colon, unchanged from prior exam. 4. Unchanged infrarenal abdominal aortic aneurysm measuring up to 3.4 cm. Recommend follow-up ultrasound or CTA in 3 years per simplified ACR and SVS guidelines. Reference: Chaikof EL et al. J Vasc Surg 2018; 67:2-77. Society for Vascular Surgery 2018 practice guidelines on the care of patients with an abdominal aortic aneurysm. I have personally reviewed the images and I agree with this report. WSN: [id number] Ordering Physician: Lucero Bhatia Dictated By: Robert Mendez MD Dictated Date/Time: 11/03/22 9:29 pm Reviewed By: Abhi West MD Signed By: Abhi West MD Signed Date/Time: 11/03/22 9:34 pm Transcribed By: FERMIN Transcribed Date/Time: 11/03/22 9:25 pm Vital Signs Most recent to oldest [Reference Range]: 1 2 3 Height 160 cm (11/03/22 8:08 PM) Oxygen Saturation [94-100 %] 100 % (11/04/22 1:37 PM) 100 % (11/04/22 7:43 AM) 100 % (11/03/22 9:40 PM) Pulse Rate [55-90 bpm] 60 bpm (11/03/22 4:59 PM) Blood Pressure [90-138/55-84 mm Hg] 130/80mm Hg (11/04/22 1:37 PM) 137/61mm Hg (11/04/22 7:43 AM) 151/80mm Hg *H* (11/03/22 9:40 PM) Respiratory Rate [16-30 br/min] 18 br/min (11/04/22 1:37 PM) 12 br/min *L* (11/04/22 7:43 AM) 17 br/min (11/03/22 10:39 PM) Temperature [96.8-100.4 DegF] 98.5 DegF (11/04/22 1:37 PM) 98.3 DegF (11/04/22 7:43 AM) 99.1 DegF (11/03/22 4:59 PM) Mode of Delivery (Oxygen) Room air (11/04/22 1:37 PM) Room air (11/04/22 7:43 AM) Room air (11/03/22 9:40 PM) Blood pressure sites Arm, right (11/04/22 1:37 PM) Arm, right (11/04/22 7:43 AM) Arm, right (11/03/22 9:40 PM) Temperature Route Oral (11/04/22 1:37 PM) Oral (11/04/22 7:43 AM) Oral (11/03/22 4:59 PM) Dry Weight 59.1 kg (11/03/22 8:08 PM) Social History Social History Type Response Tobacco Use: 4 or less cigar ettes(less than 1/4 pack)/day in last 30 days. Sex Note * Octavio Franco DO S: MODIFY, MODIFY, PERFORM Event Display: Discharge/Transfer Note Hospital Authored Date: Patient: ??SARA JOSHI ? Age:??77 Years?Sex:??Female?:??1945?? Patient Information Discharge Location: [facility] Primary Care Physician: Ashley Morales MD Admit Date/Time: 11/03/22 16:41 Discharge date: 04 November 2022 Discharge Disposition Discharge Disposition: Home: No Services??she can go back to her assisted living facility, see below for details Discharge Diagnosis Left lower quadrant pain (R10.32) Diverticulitis (K57.92) Constipation in female (K59.00) Dementia (F03.90) _ Discharge Medications Acetaminophen (Tylenol 325 mg oral capsule)?2?capsule?650?Milligram?By Mouth?Every 4 hours?as needed?as needed for fever Allopurinol (allopurinol 100 mg oral tablet)?100?Milligram?1?tablet?By Mouth?Daily?(LAST FILLED [facility] 10/13/22) Amlodipine (amLODIPine 5 mg oral tablet)?1?tab(s)?5?Milligram?By Mouth?Daily?(LAST FILLED [facility] 10/06/22) Aspirin (aspirin 81 mg oral delayed release tablet)?81?Milligram?1?tablet?By Mouth?Daily Cholecalciferol (Vitamin D3 5000 intl units oral tablet)?1?tab(s)?125?Microgram?By Mouth?Daily?(LAST FILLED [facility] 09/29/22) Clopidogrel (Plavix 75 mg oral tablet)?75?Milligram?1?tablet?By Mouth?Daily?(LAST FILLED [facility] 10/12/22) Cyanocobalamin (Vitamin B-12 1000 mcg oral tablet)?1,000?Microgram?1?tablet?By Mouth?Daily?(LAST FILLED [facility] 10/06/22) Donepezil (donepezil 5 mg oral tablet)?5?Milligram?1?tablet?By Mouth?Daily at bedtime?(LAST FILLED [facility] 10/12/22) Famotidine (famotidine 40 mg oral tablet)?1?tab(s)?40?Milligram?By Mouth?Daily?(LAST FILLED [facility] 10/04/22) Gabapentin (gabapentin 100 mg oral capsule)?100?Milligram?1?capsule?By Mouth?2 times a day?(LAST FILLED [facility] 10/02/22) insulin degludec (Tresiba FlexTouch 200 units/mL subcutaneous solution)?18?unit(s)?Subcutaneous Injection?Daily at bedtime?rotate injection sites(LAST FILLED 2020) Levothyroxine (levothyroxine 0.1 mg oral tablet)?1?tab(s)?100?Microgram?By Mouth?Daily?(LAST FILLED [facility] 10/03/22) Lisinopril (lisinopril 40 mg oral tablet)?1?tab(s)?40?Milligram?By Mouth?Daily?(LAST FILLED [facility] 09/29/22) Loperamide (loperamide 2 mg oral capsule)?2?Milligram?1?capsule?By Mouth?Daily?as needed?do not excnot to exceed 8 capsules, or 16 mg, in 24 hours?Loose Stool Metoprolol (Metoprolol Succinate ER 25 mg oral tablet, extended release)?2?tab(s)?50?Milligram?By Mouth?Daily?(LAST FILLED [facility] 10/12/22) Metronidazole (metroNIDAZOLE 500 mg oral tablet)?1?tab(s)?500?Milligram?By Mouth?Every 8 hours?for 7?Days Morphine (morphine 15 mg oral tablet, immediate release)?0.5?tab(s)?7.5?Milligram?ByMouth?Every 4 hours?as needed?for pain?for 5?Days Polyethylene Glycol 3350 (polyethylene glycol 3350 oral powder for reconstitution)?17?gram?By Mouth?2 times a day?as needed?Constipation?dissolve in water or juice before taking Pyridoxine (Vitamin B6 100 mg oral tablet)?1?tab(s)?100?Milligram?By Mouth?Daily?(LAST FILLED [facility] 10/25/22) Rosuvastatin (rosuvastatin 20 mg oral capsule)?1?capsule?20?Milligram?By Mouth?Daily Senna (Senna 8.6 mg oral tablet)?8.6?Milligram?1?tab(s)?By Mouth?Daily at bedtime?(LAST FILLED [facility] 10/25/22) ? Quality Measures Tobacco Use Treatment:? Medications Started None??continue current medicines which include??cephalosporins Flagyl and pain medicines Medications Discontinued None Doses Changed None Allergies [...] vomiting status: disruptive effects ? Hospital Course This is a 77-year-old female. From reviewing the chart, from all speaking to the patient, she has been in our hospital??3 times in the month of October,??actually 2 times in October and this is her first admission in November. She was just recently discharged on??31 Oct 2022 after being diagnosed with a??small??left proximal ureteral stone with some mild hydronephrosis, and associated diverticulitis. This has been seen on previous admissions and she was being treated for this, with??expectant therapy, she had a small diverticulitis that was treated with??an oral cephalosporin and also some Flagyl, she was given a prescription for morphine 3 days ago and discharged back to her??assisted living facility.I left 2 messages for daughter to confirm the history. IV at the speak to her. ?? The patient reports that she has a room at the assisted living facility, she is otherwise ambulatory and independent,??she denies any nausea fevers chills vomiting, she was having some left lower quadrant pain and was brought to the emergency room by the staff. ?? In the emergency room she received 1 dose of morphine??1 dose of Rocephin??and a CAT scan. See below for results. ?? She has been eating and drinking but she is yet to move her bowels, she has no other complaints. She is alert oriented nontoxic-appearing??has no shortness of breath or chest pain and no fevers or chills at this time. ?? She says she is not very good at taking her medicines but has access to them at the nursing facility,??she can call for meds in the facility gives her the medicines. They do the arranging of the medicines. ?? The rest of her medical history is reviewed. ?? See below for physical exam. ?? Regarding the patient's left lower quadrant pain: Her CT scan shows??constipation of the rectosigmoid area, who provided a laxative we will try to ambulate the patient see if she can move her bowels,we also give her oral pain medicines to see if this improves her pain. ??Provided she can move her b owels??have her pain controlled oral pain medicines, encouraged her to take the medicine that is already been prescribed to her at the assisted living facility.?? This would help her pain, she can continue her??antibiotics that were previously prescribed, she has received 2 CAT scans in less than aweek which showed no evidence of perforation or complicated diverticulitis,??and the hydronephrosisis stable and??according to the previous urology notes. ??No plans for intervention. ??Her renal function is stable and she does not have a white count or fever or signs that she would require additional antibiotics in the hospital, in addition her urinalysis shows no evidence of pyuria. ?? I left 2 messages for her daughter, we will attempt to??make the patient more comfortable in the emergency room with oral medicines??and??discharge her later??this morning if possible. ?? Signout given to nursing, reevaluate the patient after she walks ambulates??and has a bowel movement. ?? More than 30 minutes spent. ?? Thank you for allowing us to follow your patient. ?? Addendum: Later in the morning at approximately??1200 hrs. I spoke to Marian. ??The patient is ambulating and asking to be discharged. ??She is eating and drinking.?? We will do laxatives and I will??going to ensure that she has a bowel movement, we will add laxatives for discharge.?? She can go back to the facility today.?? We spoke to urology, no intervention in the hospital is required at this time. ?? Objective Vital Signs?? Temperature: 98.3 DegF (11/04/22 07:43:00) Temperature Route: Oral (11/04/22 07:43:00) Pulse Rate: 60 bpm (11/03/22 16:59:00) Respiratory Rate:??12 br/min??Low (11/04/22 07:43:00) Systolic Blood Pressure: 137 mm Hg (11/04/22 07:43:00) Diastolic Blood Pressure: 61 mm Hg (11/04/22 07:43:00) Blood pressure sites: Arm, right (11/04/22 07:43:00) Mean Arterial Pressure: 94 mm Hg (11/03/22 16:59:00) Pulse Pressure: 76 mm Hg (11/04/22 07:43:00) Oxygen Saturation: 100 % (11/04/22 07:43:00) Mode of Delivery (Oxygen): Room air (11/04/22 07:43:00) Early Warning Score: 0 (11/04/22 07:45:14) ? . Physical Exam She is alert and oriented Chest: Clear auscultation bilaterally Cardiovascular exam: She has a pacemaker in the chest, heart rate is regular rate and rhythm without rubs murmurs or gallops Abdomen has some left lower quadrant??pain with some guarding and tenderness otherwise there is no peritonitis bowel sounds are present and the abdomen is soft and nontender??in all the other parts of the abdomen that were examined Neurologic: She says she is able to walk, we will??give her suppository and see if she can ambulate, see below for details Skin: Warm and dry ?? Labs and imaging studies reviewed Consultants None Pending Results Urine Culture ordered on 11/03/2022 Follow-Up Appointments Added Follow Up ?Time Frame ?Comments Carmen LORA, Ashley Patient Instructions Please follow-up with your primary care doctor and your urologist. Post Discharge Care Follow-up with urology Home Health Face to Face ^HomeHealthFTF Results Discharge Labs BLOOD COUNT & DIFF WBC 7.5 k/mm3 ()?? 11/04/2022 05:44 RBC 4.59 m/mm3 ()?? 11/04/2022 05:44 Hgb 13.4 Gm/dL ()?? 11/04/2022 05:44 Hct 42.3 % ()?? 11/04/2022 05:44 MCV 92.2 femtoliters ()?? 11/04/2022 05:44 MCH 29.2 pg ()?? 11/04/2022 05:44 MCHC 31.7 g/dL (Low)?? 11/04/2022 05:44 Platelet Count 199 k/mm3 ()?? 11/04/2022 05:44 RDW-SD 47.0 femtoliters (High)?? 11/04/2022 05:44 MPV 10.2 femtoliters ()?? 11/04/2022 05:44 Nucleated RBC (Automated) 0.0 #/100 WBC'S ()?? 11/04/2022 05:44 Abs. NRBC 0.0 k/mm3 ()?? 11/04/2022 05:44 Abs. Neut 4.7 k/mm3 ()?? 11/03/2022 18:33 Abs. Lymph 2.3 k/mm3 ()?? 11/03/2022 18:33 Abs. Cascade 0.6 k/mm3 ()?? 11/03/2022 18:33 Abs. Eo 0.1 k/mm3 ()?? 11/03/2022 18:33 Abs. Baso 0.1 k/mm3 ()?? 11/03/2022 18:33 Neut % 60.7 % ()?? 11/03/2022 18:33 Lymph % 29.4 % ()?? 11/03/2022 18:33 Cascade % 7.2 % ()?? 11/03/2022 18:33 Eos % 1.6 % ()?? 11/03/2022 18:33 Baso % 0.8 % ()?? 11/03/2022 18:33 Imm Gran 0.3 % ()?? 11/03/2022 18:33 Abs. Imm Gran 0.0 k/mm3 ()?? 11/03/2022 18:33 ?? CHEM GENERAL Sodium 145 mmol/L ()?? 11/04/2022 06:15 Potassium 4.8 mmol/L ()?? 11/04/2022 06:15 Chloride 108 mmol/L (High)?? 11/04/2022 06:15 Bicarbonate Level 29 mmol/L ()?? 11/04/2022 06:15 Anion Gap 8 ()?? 11/04/2022 06:15 Glucose Level 146 mg/dL (High)?? 11/03/2022 18:33 BUN 15 mg/dL ()?? 11/04/2022 06:15 Creatinine-Blood 0.9 mg/dL ()?? 11/04/2022 06:15 Estimated GFR Creatinine 65 ML/MIN/1.73 M2 ()?? 11/04/2022 06:15 Calcium 9.5 mg/dL ()?? 11/03/2022 18:33 ?? HEME OTHER Hold Blue Top SPECIMEN DISCARDED AFTER 4 HOURS. ()?? 11/03/2022 18:33 ? MISC. CHEMISTRY Hold Green Top SPECIMEN DISCARDED AFTER 1 WEEK ()?? 11/03/2022 18:33 ? UA/URINALYSIS Appear/Color, Urine LIGHT YELLOW ()?? 11/04/2022 04:15 Specific [place], Urine 1.014 ()?? 11/04/2022 04:15 pH, Urine 6.5 ()?? 11/04/2022 04:15 Albumin, Urine NEGATIVE ()?? 11/04/2022 04:15 Glucose, Urine NEGATIVE ()?? 11/04/2022 04:15 Ketones, Urine NEGATIVE ()?? 11/04/2022 04:15 Bilirubin, Urine NEGATIVE ()?? 11/04/2022 04:15 Hemoglobin, Urine NEGATIVE ()?? 11/04/2022 04:15 Nitrite, Urine NEGATIVE ()?? 11/04/2022 04:15 Leukocyte, Urine NEGATIVE ()?? 11/04/2022 04:15 Urobilinogen NORMAL mg/dL ()?? 11/04/2022 04:15 WBC's, Urine 2 /HPF ()?? 11/04/2022 04:15 RBC's, Urine 1 /HPF ()?? 11/04/2022 04:15 Squamous Epith <1 /HPF ()?? 11/04/2022 04:15 Calcium Oxal SLIGHT /HPF ()?? 11/03/2022 18:23 Mucus SLIGHT /LPF ()?? 11/04/2022 04:15 Hold Urine Culture Testing available 48 hours from time of collection. ()?? 11/03/2022 18:23 ? URINE OTHER Est Creatinine Clearance 41.91 mL/min ()?? 11/04/2022 07:39 ? VIROLOGY COVID-19 by RT-PCR NEGATIVE ()?? 11/03/2022 20:15 ? 30 minutes spent on discharge CT Abdomen and Pelvis WO contrast * BHSPowerscribe , CIS S: TRANSCRIBE Abhi West MD: VERIFY Andrea LORA, Robert A: SIGN Event Display: Result: Authored Date: CT Abdomen and Pelvis W/O Contrast REASON: Pain; Clinical Question(s): Calculus TECHNIQUE: Spiral CT through the abdomen and pelvis without IV contrast formatted in 3 planes. Thisstudy was performed without oral contrast. Weight- based protocol using automatic tube modulation was used to optimize exposure parameters. CTDIvol Body: 10.70 mGy, DLP Body: 473 mGy*cm. COMPARISON: CT abdomen and pelvis from 10/28/2022. FINDINGS: Project Engineering Manager View Findings, Lines and Tubes: Partially visualized leads of the cardiac pacer device. Lung bases are clear. No pleural effusion. The heart is normal in size. Diaphragm: Normal. Liver: Normal. Gallbladder: No CT evidence of gallbladder pathology. Bile ducts: No biliary ductal dilation. Spleen: Normal. Pancreas: Normal. Adrenal glands: Normal right adrenal gland. Unchanged 1.4 cm nodule in the left adrenal gland, consistent with an adrenal adenoma. Kidneys and ureters: No hydronephrosis, or noncontrast evidence of suspicious masses. Unchanged bilateral nonobstructing renal calculi (left greater than right). Unchanged position of the 0.2 cm calculus in the proximal left ureter with mild upstream hydroureter and mild fullness of the left proximal collecting system. Bladder: Normal. Reproductive organs: The uterus is not seen and likely surgically absent. Stomach, small bowel, and large bowel: Normal caliber stomach and small bowel loops. Significant stool retention in the sigmoid colon with unchanged extension measuring up to 8.4 cm. Moderate colonicdiverticulosis without any evidence of acute diverticulitis. Appendix: Not seen, but no evidence of appendicitis. Peritoneum and retroperitoneum: No ascites or pneumoperitoneum. No omental or mesenteric lesions. Lymph nodes: No enlarged lymph nodes. Blood vessels: Unchanged infrarenal aortic aneurysm measuring up to 3.4 cm. Severe atherosclerotic vascular calcification. Abdominal and pelvic wall: Unremarkable. Bones: No acute abnormality. Moderate degenerative changes of the spine, most prominent at the L5-S1 level. IMPRESSION: 1. Unchanged 0.2 cm calculus in the proximal left ureter with mild upstream hydroureter and dilation of the collecting system. 2. Unchanged bilateral nonobstructing renal calculi. 3. Severe stool retention in the rectosigmoid colon, unchanged from prior exam. 4. Unchanged infrarenal abdominal aortic aneurysm measuring up to 3.4 cm. Recommend follow-up ultrasound or CTA in 3 years per simplified ACR and SVS guidelines. Reference: Chaikof EL et al. J Vasc Surg 2018; 67:2-77. Society for Vascular Surgery 2018 practice guidelines on the care of patients with an abdominal aortic aneurysm. I have personally reviewed the images and I agree with this report. WSN: [id number] Ordering Physician: Lucero Bhatia Dictated By: Andrea LORA, Robert Coles Dictated Date/Time: 11/03/22 9:29 pm Reviewed By: Abhi West MD Signed By: Abhi West MD Signed Date/Time: 11/03/22 9:34 pm Transcribed By: CSB Transcribed Date/Time: 11/03/22 9:25 pm Patient Care team information Care Team Personnel Name: Ashley Morales MD Position: [facility] Physician - Primary Care Member Role: PCP Address: Address: [address], [place] [address] Name: Svitlana Mcgee RN Position: [facility] RN Member Role: Primary Care Nurse Name: Soraida Handy RN Position: [facility] RN Member Role: Primary Care Nurse Name: Thom Kuo RN Position: [facility] RN Member Role: Primary Care Nurse Name: Ileana Khan RN Position: [facility] RN Member Role: Primary Care Nurse Name: Becky Quezada RN Position: [facility] SN RN Member Role: Primary Care Nurse Name: Sara Dorantes RN Position: [facility] RN Member Role: Primary Care Nurse Name: Chelita Bailey LPN Position: [facility] RN Member Role: Primary Care Nurse Name: Frank LANDAVERDE Attending Position: [facility] ED Medicine MD Name: Romana Shin Position: [facility] ED TA [facility] Name: Job Yepez RN Position: [facility] ED RN W/OE and Tasks Member Role: Patient Care Provider Name: Junito North Position: [facility] ED TA [facility]
--- OUTSIDE RECORDS SUMMARY | 2023-07-20 23:05 | XMS_ITS | Continuity of Care Document ---
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 Hypothyroidism (E03.9):??Continue home levothyroxine ?? Gout (M10.9):??Continue home allopurinol ?? Tobacco use (Z72.0):??Still smokes 4-5 cigs/day counseling provided ?? Dementia (F03.90):??Continue home donepezil ?? VTE Prophylaxis:??Low??per VTE guidelines ?VTE Prophylaxis Assessment:??Risk Level documented as Low Risk ?? Code Status:??Full code ?? Ongoing Medical Necessity:??Dizziness, PT consult ?? Discharge Planning:??Likely can be dc tomm??if orthostatic vitals negative, BP controlled and pt eval ? Histories Allergies Allergies ?(Active and Proposed [...] needed?as needed for fever Al Hydroxide/Mg Hydroxide/Simethicone (Mintox)?30?Milliliter?By Mouth?Every 4 hours?as needed?as needed for indigestion Allopurinol (allopurinol 100 mg oral tablet)?100?Milligram?1?tablet?By Mouth?Daily Aspirin (aspirin 81 mg oral delayed release tablet)?81?Milligram?1?tablet?By Mouth?Daily Cholecalciferol (Vitamin D3 5000 intl units oral tablet)?1?tab(s)?125?Microgram?By Mouth?Daily Clopidogrel (Plavix 75 mg oral tablet)?75?Milligram?1?tablet?By Mouth?Daily Cyanocobalamin (Vitamin B-12 1000 mcg oral tablet)?1,000?Microgram?1?tablet?By Mouth?Daily Docusate-Senna (Senna Plus 50 mg-8.6 mg oral tablet)?2?tab(s)?By Mouth?2 times a day Donepezil (donepezil 5 mg oral tablet)?5?Milligram?1?tablet?By Mouth?Daily at bedtime Famotidine (famotidine 40 mg oral tablet)?1?tab(s)?40?Milligram?By Mouth?Daily Gabapentin (gabapentin 100 mg oral capsule)?100?Milligram?1?capsule?By Mouth?2 times a day Glycerin (glycerin adult rectal suppository)?1?suppository(ies)?Rectally?Daily?as needed?for constipation insulin degludec (Tresiba FlexTouch 100 units/mL subcutaneous solution)?18?unit(s)?Subcutaneous Infusion?Daily at bedtime Levothyroxine (levothyroxine 0.1 mg oral tablet)?1?tab(s)?100?Microgram?By Mouth?Daily Lisinopril (lisinopril 40 mg oral tablet)?1?tab(s)?40?Milligram?By Mouth?Daily Loperamide (loperamide 2 mg oral capsule)?2?Milligram?1?capsule?By Mouth?Daily?as needed?NTE 8 capsules in 24hrs?for loose stool Metoprolol (Metoprolol Succinate ER 25 mg oral tablet, extended release)?2?tab(s)?50?Milligram?By Mouth?Daily Milk of Magnesia (Milk of Magnesia 8% oral suspension)?30?Milliliter?2.4?gram?By Mouth?Daily at bedtime?as needed?for constipation Polyethylene Glycol 3350 (polyethylene glycol 3350 oral powder for reconstitution)?17?gram?By Mouth?2 times a day?as needed?Constipation?dissolve in water or juice before taking Pyridoxine (Vitamin B6 100 mg oral tablet)?1?tab(s)?100?Milligram?By Mouth?Daily Rosuvastatin (rosuvastatin 20 mg oral capsule)?1?capsule?20?Milligram?By Mouth?Daily ? Results Recent Labs BLOOD BANK Blood Type O Positive ()?? 07/05/2023 19:46 Antibody Screen Negative ()?? 07/05/2023 19:46 ?? BLOOD COUNT & DIFF WBC 11.5 k/mm3 (High)?? 07/05/2023 20:09 RBC 4.77 m/mm3 ()?? 07/05/2023 20:09 Hgb 13.6 Gm/dL ()?? 07/05/2023 20:09 Hct 42.6 % ()?? 07/05/2023 20:09 MCV 89.3 femtoliters ()?? 07/05/2023 20:09 MCH 28.5 pg ()?? 07/05/2023 20:09 MCHC 31.9 g/dL (Low)?? 07/05/2023 20:09 Platelet Count 230 k/mm3 ()?? 07/05/2023 20:09 RDW-SD 46.9 femtoliters ()?? 07/05/2023 20:09 MPV 9.3 femtoliters (Low)?? 07/05/2023 20:09 Nucleated RBC (Automated) 0.0 #/100 WBC'S ()?? 07/05/2023 20:09 Abs. NRBC 0.0 k/mm3 ()?? 07/05/2023 20:09 Abs. Neut 8.3 k/mm3 (High)?? 07/05/2023 20:09 Abs. Lymph 2.3 k/mm3 ()?? 07/05/2023 20:09 Abs. [place] 0.6 k/mm3 ()?? 07/05/2023 20:09 Abs. Eo 0.1 k/mm3 ()?? 07/05/2023 20:09 Abs. Baso 0.1 k/mm3 ()?? 07/05/2023 20:09 Neut % 72.5 % ()?? 07/05/2023 20:09 Lymph % 20.0 % ()?? 07/05/2023 20:09 [place] % 5.6 % ()?? 07/05/2023 20:09 Eos % 1.0 % ()?? 07/05/2023 20:09 Baso % 0.5 % ()?? 07/05/2023 20:09 Imm Gran 0.4 % ()?? 07/05/2023 20:09 Abs. Imm Gran 0.1 k/mm3 ()?? 07/05/2023 20:09 ?? CARDIAC High Sensitivity Troponin (HSTnT) 23 ng/L (High)?? 07/05/2023 22:02 ?? CHEM GENERAL Sodium 133 mmol/L ()?? 07/05/2023 20:09 Potassium 3.9 mmol/L ()?? 07/05/2023 20:09 Chloride 99 mmol/L ()?? 07/05/2023 20:09 Bicarbonate Level 26 mmol/L ()?? 07/05/2023 20:09 Anion Gap 8 ()?? 07/05/2023 20:09 Glucose Level 134 mg/dL (High)?? 07/05/2023 20:09 Glucose, POC 105 mg/dL (High)?? 07/06/2023 08:16 Hemoglobin A1C (Monitoring) 6.7 % (High)?? 07/05/2023 20:09 BUN 18 mg/dL ()?? 07/05/2023 20:09 Creatinine-Blood 0.9 mg/dL ()?? 07/05/2023 20:09 Estimated GFR Creatinine 66 ML/MIN/1.73 M2 ()?? 07/05/2023 20:09 Calcium 8.3 mg/dL (Low)?? 07/05/2023 20:09 AST (SGOT) 19 units/L ()?? 07/05/2023 20:09 ?? COAG INR 1.1 ()?? 07/05/2023 20:09 Protime (PT) 11.5 seconds (High)?? 07/05/2023 20:09 APTT 26.2 seconds ()?? 07/05/2023 20:09 ?? LIPID STUDIES Cholesterol 109 mg/dL ()?? 07/05/2023 20:09 Triglycerides 132 mg/dL ()?? 07/05/2023 20:09 HDL Cholesterol 35 mg/dL (Low)?? 07/05/2023 20:09 LDL Cholesterol 48 mg/dL ()?? 07/05/2023 20:09 Non HDL Cholesterol 74 mg/dL ()?? 07/05/2023 20:09 ?? UA/URINALYSIS Appear/Color, Urine LIGHT YELLOW ()?? 07/05/2023 23:11 Specific [place], Urine >1.050 (High)?? 07/05/2023 23:11 pH, Urine 7.0 ()?? 07/05/2023 23:11 Albumin, Urine TRACE (Abnormal)?? 07/05/2023 23:11 Glucose, Urine NEGATIVE ()?? 07/05/2023 23:11 Ketones, Urine NEGATIVE ()?? 07/05/2023 23:11 Bilirubin, Urine NEGATIVE ()?? 07/05/2023 23:11 Hemoglobin, Urine NEGATIVE ()?? 07/05/2023 23:11 Nitrite, Urine NEGATIVE ()?? 07/05/2023 23:11 Leukocyte, Urine NEGATIVE ()?? 07/05/2023 23:11 Urobilinogen NORMAL mg/dL ()?? 07/05/2023 23:11 WBC's, Urine 1 /HPF ()?? 07/05/2023 23:11 RBC's, Urine <1 /HPF ()?? 07/05/2023 23:11 Bacteria SLIGHT HPF (Abnormal)?? 07/05/2023 23:11 Squamous Epith <1 /HPF ()?? 07/05/2023 23:11 Hold Urine Culture Testing available 48 hours from time of collection. ()?? 07/05/2023 23:11 ?? URINE OTHER Est Creatinine Clearance 42.64 mL/min ()?? 07/06/2023 11:19 ?? VIROLOGY Influenza A PCR NEGATIVE ()?? 07/06/2023 11:30 Influenza B PCR NEGATIVE ()?? 07/06/2023 11:30 RSV PCR NEGATIVE ()?? 07/06/2023 11:30 COVID-19 PCR Specimen Source NASAL ()?? 07/06/2023 11:30 COVID-19 PCR Result NEGATIVE ()?? 07/06/2023 11:30 ? Hospital Progress note * Richelle Butcher RN: PERFORM, SIGN, VERIFY Event Display: Progress Note Hospital Authored Date: Patient: SARA CARTER Age: 77 years Sex: Female : 1945 Associated Diagnoses: None Author: Richelle Butcher RN Findings Problem Related to Alteration in Neurological : Alteration in Neurological Function/new 07/08/2023 4:00 EST Alteration in Neuro status Related to Other: r/o stroke Goals & Outcomes, Neurological Pt will be discharged without infection, Pt will be hemodynamically stable, Pt will be Neurologically stable Interventions, Neurological Assess/monitor for abnormal posturing BH Goals/Interventions, Neurological Yes Neurological, Problem Start 07/07/2023 6:09 Reviewed plan with, Neurological Patient . Evaluation Patient alert an oriented X3. Lungs clear. Paced on the monitor. Abdomen soft, non-tender, BS+. Voiding in the bathroom. Patient assisted to the bathroom with one assist, gait steady. Orthostatic vital signs negative today. Denies pain Tolerating diet withoutu difficulty. Patient to be discharged back to assisted living today. Will continue to monitor. . * Maria Teresa Watkins RN: PERFORM, SIGN, VERIFY Event Display: Progress Note Hospital Authored Date: Patient: SARA CARTER Age: 77 years Sex: Female : 1945 Associated Diagnoses: None Author: Maria Teresa Watkins RN Findings Problem Related to Alteration in Neurological : Alteration in Neurological Function/new 07/08/2023 4:00 EST Alteration in Neuro status Related to Other: r/o stroke Goals & Outcomes, Neurological Pt will be discharged without infection, Pt will be hemodynamically stable, Pt will be Neurologically stable Interventions, Neurological Assess/monitor for abnormal posturing BH Goals/Interventions, Neurological Yes Neurological, Problem Start 07/07/2023 6:09 Reviewed plan with, Neurological Patient Patient Progression, Neurological Pt progressing according to plan . Evaluation A&Ox3-4, d/o to time, reorientation provided. VSS on room air, can be hypertensive. Continent of B&B. Takes pills whole. On tele, paced. PERRLA, HALL. Denies pain. Safety maintained, bed alarmon, hourly rounding completed. . Discharge Information Rehabilitation Discharge : Rehab Discharge Index 07/07/2023 8:23 EST Comments on treatment indicated 77 F p/w dizziness. CT Head nonacute. CTA Head/Neck without LVO. Intracranial athero, as well as carotid stenosis, and severe stenosis of right subclavian noted. Patient OOW for TNK. PT to progress functional mobility. Rec return to [facility] with PT services Full chart review completed Yes Hospital course [facility] Plan of care PT Gait training, Transfer training, Therapeutic exercise, Functional Activities, Balance training * Anatoly BUTLER , Sonya Valentin: SIGN, VERIFY, PERFORM Event Display: Progress Note Hospital Authored Date: [id number] Patient: SARA CARTER Age: 77 years Sex: Female : 1945 Associated Diagnoses: None Author: Anatoly BUTLER , Sonya Valentin Findings Evaluation (Patient A+Ox3. [place]. Denies pain. Tele monitor shows A-paced. Lungs clear,+BS, no edema.Tolerting PO diet. Orthos positive and NS x1 liter infusing per orders. Ambulating with steady gaitand 1 assist for safety. Bed alarm in place. Will monitor.) Consult note * Kathia BLANCO, Alessia Delatorre: MODIFY, MODIFY, MODIFY, MODIFY, PERFORM, MODIFY, MODIFY, MODIFY Event Display: Consultation Note Authored Date: Patient: ??SARA CARTER ? Age:??77 Years?Sex:??Female?:??1945?? Chief Complaint/Reason for Consultation Slow onset headache, and dizziness. Left sided weakness. History of Present Illness Ms. Carter is a 77-year-old female with PMH significant for CAD, HTN, SSS, Type 2 DM, hypothyroidism, active smoker, and cognitive impairment who presented as an acute stroke for frontal headache, dizziness, difficulty ambulating, and possible??left-sided weakness. Reportedly, the patient started toexperience dizziness, described as lightheadedness, since this morning around 10:00am, associated with a??frontal headache of slow onset.??She later was noted to have difficulty with ambulating, falling into??a cabinet. EMS was dispatched. Upon their arrival she had decreased left lock stitch channeler strength rajat LUE drift. EMS additionally noted patient smoked quite a number of cigarettes today, up to 15 by this evening.??LWK: ~10:00am, possibly earlier. BP: 178/87 per EMS. In the ED, patient continued to endorse dizziness/lightheadedness, as well as frontal headache. Possible right facial droop noted. CT Head nonacute. CTA Head/Neck without LVO. Intracranial athero, as well as carotid stenosis, and severe stenosis of right subclavian noted. Patient OOW for TNK, and deferred given low NIHSS. No LVO for NEV intervention. ? Objective Vital Signs?? Temperature?98.4 ?(20:08) Systolic Blood Pressure?161 ?(20:08) Diastolic Blood Pressure?73 ?(20:08) Pulse?71 ?(20:08) SpO2?97 ?(20:08) Respiratory Rate?16 ?(20:08) ? NIH Stroke Scale: ?? 1a. LOC (0-alert; 1-not alert, arousable; 2-not alert, obtunded; 3- nonresponsive): 0 1b. Questions (0-answers two correctly; 1-answers one correctly; 2-answers neither correctly):1 1c. Commands (0-perform two tasks; 1-performs one task; 2-performs neither tasks): 0 2. Gaze (0-normal; 1-partial gaze palsy; 2-forced deviation): 0 3. Visual otoole (0-no visual loss; 1-partial hemianopsia; 2-complete hemianopsia; 3-bilateral hemianopsia): 0 4. Facial palsy (0-normal; 1-minor palsy; 2-partial palsy; 3-complete paralysis): 1 5a. Motor left arm (0-normal; 1-drift before 10 sec; 2-falls before 10 sec; 3-no effort against gravity; 4-no movement): 0 5b. Motor right arm (0-normal; 1-drift before 10 sec; 2-falls before 10 sec; 3- no effort against gravity; 4-no movement): 0 6a. Motor left leg (0-normal; 1-drift before 5 sec; 2-falls before 5 sec; 3-no effort against gravity; 4-no movement): 0 6b. Motor right leg (0-normal; 1-drift before 5 sec; 2-falls before 5 sec; 3-no effort against gravity; 4-no movement): 0 7. Ataxia (0-absent; 1-one limb; 2-two limbs): 0 8. Sensory (0-absent; 1-mild/moderate; 2-severe/total loss): 0 9. Language (0-normal; 1-mild/moderate loss; 2-severe aphasia; 3-mute): 0 10. Dysarthria (0-normal; 1-mild/moderate; 2-severe): 1 (note: dentures not in place) 11. Extinction (0-normal; 1-mild-one modality; 3-wkowyx-jit modality): 0 ?? NIHSS Total:??3 (2, if??assuming missing dentures resulting in mild slurring) ? Physical Exam General:?77-year-old female, who appears stated age. Calm and cooperative. Responds appropriately to questioning. Speech mildly slurred (missing dentures) Integ: Skin is warm, dry and intact. No diaphoresis.?? HEENT: Eyes symmetrical. Pupils 2mm, equally round, regular, and responsive to light. Extraocular eye movements intact. No nystagmus. Hearing grossly intact.?? Respiratory: Respirations even and unlabored. GI: Abd soft, and nondistended. Extremities: warm and perfused. Neurological: Mental status: A&O x3. Answers questions appropriately and follows commands. Cranial Nerves: II: Pupils 2mm equally round, regular and reactive to light III, IV, : EOM intact, no gaze preference or deviation. No nystagmus. VFF V: Facial sensation intact to light touch in V1, V2, and V3 segments. VII: Mild right facial asymmetry, no clear weakness on activation, and patient missing her dentures. (patient also states she looks like herself) VIII: Normal hearing to speech IX, X:??Normal palatal elevation, no uvular deviation.?? XII: Midline tongue protrusion Motor: Musculoskeletal development appropriate for age and gender. Moves extremities independently Strength Solutions Engineer: L: 5/5 ? R: 5/5 Deltoids: L: 5/5 ? R:5/5 Biceps: ?? L: 5/5 ? R:5/5 Triceps: ?? L: 5/5 ? R:5/5 Knee extension: L: 5/5 ? R: 5/5 Sensory: Sensation intact to light touch in??all limbs. No hemineglect, no extinction to double sided stimulation Coordination: Finger to nose without dysmetria Gait: Deferred. ? Assessment/Plan 77-year-old female with PMH significant for CAD, HTN, SSS, Type 2 DM, hypothyroidism, active smoker, and cognitive impairment who presented as an acute stroke for frontal headache, dizziness, difficulty ambulating, and possible??left-sided weakness. Dizziness, described as lightheadedness, began around 10:00am, and is associated with a??frontal headache of slow onset.??She later was noted to havedifficulty with ambulating, falling into??a cabinet. EMS was dispatched. Upon their arrival she haddecreased left lock stitch channeler strength and a LUE drift.??LWK: ~10:00am, possibly earlier. BP: 178/87 per EMS.In the ED, patient continued to endorse dizziness/lightheadedness, as well as frontal headache. Possible right facial droop (normal per patient), and no left-sided weakness noted. Dizziness/lightheadedness worse with position change. CT Head nonacute. CTA Head/Neck without LVO. Intracranial athero,as well as carotid stenosis, and severe stenosis of right subclavian noted. Patient OOW for TNK , and deferred given low NIHSS. No LVO for NEV intervention. ? DDx: Dizziness/lightheadedness, and headache - ? related to hypertensive urgency. Possibly, recrudescence of symptoms in the setting of hypertensive episode. No acute stroke identified on CT, and though atherosclerotic disease, all vessels appear open. ? Recommendations: - NPO until swallow function cleared - Would optimize home medications - Continue to control vascular risks: A1C <7.0. Statin therapy for LDL >70 or >100 with only one vascular risk. 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 Smoking cessation - No current indication for MRI Brain - Remainder of care per primary team ? Thank you. Neurology will sign off at this time. Please call back if further concerns ?? d/w Dr. Doan d/w Isabelle Barnard Histories Past Medical History/Problem List Active Problems??(8) CAD (coronary artery disease) Cognitive impairment Gout HTN (hypertension) Hypothyroidism Severe obesity SSS (sick sinus syndrome) Type 2 diabetes [...] needed?as needed for fever Al Hydroxide/Mg Hydroxide/Simethicone (Mintox)?30?Milliliter?By Mouth?Every 4 hours?as needed?as needed for indigestion Allopurinol (allopurinol 100 mg oral tablet)?100?Milligram?1?tablet?By Mouth?Daily Aspirin (aspirin 81 mg oral delayed release tablet)?81?Milligram?1?tablet?By Mouth?Daily Cholecalciferol (Vitamin D3 5000 intl units oral tablet)?1?tab(s)?125?Microgram?By Mouth?Daily Clopidogrel (Plavix 75 mg oral tablet)?75?Milligram?1?tablet?By Mouth?Daily Cyanocobalamin (Vitamin B-12 1000 mcg oral tablet)?1,000?Microgram?1?tablet?By Mouth?Daily Docusate-Senna (Senna Plus 50 mg-8.6 mg oral tablet)?2?tab(s)?By Mouth?2 times a day Donepezil (donepezil 5 mg oral tablet)?5?Milligram?1?tablet?By Mouth?Daily at bedtime Famotidine (famotidine 40 mg oral tablet)?1?tab(s)?40?Milligram?By Mouth?Daily Gabapentin (gabapentin 100 mg oral capsule)?100?Milligram?1?capsule?By Mouth?2 times a day Glycerin (glycerin adult rectal suppository)?1?suppository(ies)?Rectally?Daily?as needed?for constipation insulin degludec (Tresiba FlexTouch 100 units/mL subcutaneous solution)?18?unit(s)?Subcutaneous Infusion?Daily at bedtime Levothyroxine (levothyroxine 0.1 mg oral tablet)?1?tab(s)?100?Microgram?By Mouth?Daily Lisinopril (lisinopril 40 mg oral tablet)?1?tab(s)?40?Milligram?By Mouth?Daily Loperamide (loperamide 2 mg oral capsule)?2?Milligram?1?capsule?By Mouth?Daily?as needed?NTE 8 capsules in 24hrs?for loose stool Metoprolol (Metoprolol Succinate ER 25 mg oral tablet, extended release)?2?tab(s)?50?Milligram?By Mouth?Daily Milk of Magnesia (Milk of Magnesia 8% oral suspension)?30?Milliliter?2.4?gram?By Mouth?Daily at bedtime?as needed?for constipation Polyethylene Glycol 3350 (polyethylene glycol 3350 oral powder for reconstitution)?17?gram?By Mouth?2 times a day?as needed?Constipation?dissolve in water or juice before taking Pyridoxine (Vitamin B6 100 mg oral tablet)?1?tab(s)?100?Milligram?By Mouth?Daily Rosuvastatin (rosuvastatin 20 mg oral capsule)?1?capsule?20?Milligram?By Mouth?Daily ? Inpatient Medications Medications (1) Active SCHEDULED: (0) CONTINUOUS: (1) NaCL 0.9% (1000 mL) Cont IV 1,000 mL (0.9% NaCL 1,000 mL) ??1,000 mL, IV Infusion, 100 mL/hr PRN: (0) ? Results Recent Labs No labs resulted between 07/04/2023 00:00 and 07/05/2023 19:52? Abnormal Labs No lab data available. ? * Franki LORA, Anjel: PERFORM Event Display: Consultation Note Authored Date: Patient discussed with IT SYSTEMS ANALYST CONSULTANT Alessia Bae. I reviewed her note and agree with her assessment and plan. Mot likely hypertensive urgency or recrudescence of symptoms. No further workup from our perspective. ?? Anjel Doan MD, PhD Note * Richelle Butcher RN: PERFORM Event Display: Discharge/Transfer Note Hospital Authored Date: Nursing Discharge Note Entered On: 07/08/2023 15:22 EST Performed On: 07/08/2023 15:22 EST by Richelle Butcher RN Nursing Discharge Note 2 Discharge Time : 07/08/2023 15:22 EST Discharge Level of Care at Discharge : Homehealth/VNA Discharge VNA/Hospice/Home Care(v001) : [facility] [phone] Patient Left Unit Via : Wheelchair Patient Accompanied Off Unit with : Responsible adult DC Instructions Provided & Signed by Pt : Yes Patient Understands D/C Instructions : Yes Patient Instructions Discharge Signed : Yes Did Pt have Specialty Bed or Wound Vac : No Guadalupe BUTLER, Richelle M - 07/08/2023 15:22 EST * Jeanette LORA, Basil: PERFORM Event Display: Discharge/Transfer Note Hospital Authored Date: [id number] Patient: ??SARA CARTER ? Age:??77 Years?Sex:??Female?:??1945?? Patient Information Discharge Location: A Primary Care Physician: Ashley Morales MD Admit Date/Time: 07/07/23 17:42 Discharge Disposition Discharge Disposition: Home with Home Health Discharge Diagnosis Orthostatic hypotension (I95.1) Hypertensive urgency (I16.0) Dizziness (R42) Blurring, right eye (H53.8) Chronic GERD (K21.9) Coronary artery disease (I25.10) Dementia (F03.90) Frontal headache (R51.9) Gout (M10.9) Hyperlipidemia (E78.5) Hypothyroidism (E03.9) Tobacco use (Z72.0) Type 2 diabetes mellitus (E11.9) HTN (hypertension) Hypothyroidism ?? _ Discharge Medications Acetaminophen (Tylenol 325 mg oral capsule)?2?capsule?650?Milligram?By Mouth?Every 4 hours?as needed?as needed for fever Al Hydroxide/Mg Hydroxide/Simethicone (Mintox)?30?Milliliter?By Mouth?Every 4 hours?as needed?as needed for indigestion Allopurinol (allopurinol 100 mg oral tablet)?100?Milligram?1?tablet?By Mouth?Daily Aspirin (aspirin 81 mg oral delayed release tablet)?81?Milligram?1?tablet?By Mouth?Daily Cholecalciferol (Vitamin D3 5000 intl units oral tablet)?1?tab(s)?125?Microgram?By Mouth?Daily Clopidogrel (Plavix 75 mg oral tablet)?75?Milligram?1?tablet?By Mouth?Daily Cyanocobalamin (Vitamin B-12 1000 mcg oral tablet)?1,000?Microgram?1?tablet?By Mouth?Daily Docusate-Senna (Senna Plus 50 mg-8.6 mg oral tablet)?2?tab(s)?By Mouth?2 times a day Donepezil (donepezil 5 mg oral tablet)?5?Milligram?1?tablet?By Mouth?Daily at bedtime Famotidine (famotidine 40 mg oral tablet)?1?tab(s)?40?Milligram?By Mouth?Daily Gabapentin (gabapentin 100 mg oral capsule)?100?Milligram?1?capsule?By Mouth?2 times a day Glycerin (glycerin adult rectal suppository)?1?suppository(ies)?Rectally?Daily?as needed?for constipation hydrALAZINE (hydrALAZINE 25 mg oral tablet)?37.5?Milligram?By Mouth?2 times a day?for 30?Days insulin degludec (Tresiba FlexTouch 100 units/mL subcutaneous solution)?18?unit(s)?Subcutaneous Infusion?Daily at bedtime Levothyroxine (levothyroxine 0.1 mg oral tablet)?1?tab(s)?100?Microgram?By Mouth?Daily Lisinopril (lisinopril 40 mg oral tablet)?1?tab(s)?40?Milligram?By Mouth?Daily Loperamide (loperamide 2 mg oral capsule)?2?Milligram?1?capsule?By Mouth?Daily?as needed?NTE 8 capsules in 24hrs?for loose stool Meclizine (meclizine 12.5 mg oral tablet)?12.5?Milligram?By Mouth?3 times a day?as needed?as needed for dizziness?for 10?Days Metoprolol (Metoprolol Succinate ER 25 mg oral tablet, extended release)?2?tab(s)?50?Milligram?By Mouth?Daily Milk of Magnesia (Milk of Magnesia 8% oral suspension)?30?Milliliter?2.4?gram?By Mouth?Daily at bedtime?as needed?for constipation Polyethylene Glycol 3350 (polyethylene glycol 3350 oral powder for reconstitution)?17?gram?By Mouth?2 times a day?as needed?Constipation?dissolve in water or juice before taking Pyridoxine (Vitamin B6 100 mg oral tablet)?1?tab(s)?100?Milligram?By Mouth?Daily Rosuvastatin (rosuvastatin 20 mg oral capsule)?1?capsule?20?Milligram?By Mouth?Daily ? Quality Measures Tobacco Use Treatment:?? Objective 77-year-old female with medical history of CAD, hypertension, AAA, diabetes mellitus type 2, activesmoker, mild dementia, currently residing at an assisted living facility who presented to the ED with dizziness. ?? Orthostatic hypotension (I95.1):??. Hypertensive urgency (I16.0):??. Dizziness (R42):??Patient presented with dizziness, frontal headache,unstable gait No focal neurological deficits on exam CT head showed no acute intracranial pathology CTA head and neck showed- some intracranial , extracranial stenosis. Neurology was consulted???aware of above CTA head and neck results???likely related to hypertensiveurgency. Neurology noted that although patient has atherosclerotic disease, all vessels appear open. No indication for MRI brain and recommended to control vascular risk factors Orthostatic vital was positive, improved after IV fluid. Continue home lisinopril 40 mg daily, metoprolol succinate 50 daily ??Started hydralazine 37.5 mg twice daily ??Started meclizine as needed as she thinks it helped Education on stroke and Orthostatic hypotension provided. ?? Blurring, right eye (H53.8):??Pt complaints mild R eye blurry vision, able to count fingers in exam, Mentions she has symptoms for >1 month. Follow up with ophthalmology as outpatient. ?? Chronic GERD (K21.9):??Famotidine ?? Coronary artery disease (I25.10):??DAPT, Statin. ?? Dementia (F03.90):??Donepezil. ?? Frontal headache (R51.9):??Tylenol as needed. ?? Gout (M10.9):??Allopurinol. ?? Hyperlipidemia (E78.5):??Statin. ?? Hypothyroidism (E03.9):??Levothyroxine. ?? Tobacco use (Z72.0):??Counselling provided. ?? Type 2 diabetes mellitus (E11.9):??A1c 6.7, home Tresiba ? Measurements?? Height: 161 cm (07/08/23) Weight: 63.6 kg (07/06/23) Dry Weight: 57 kg (07/06/23) Body Mass Index: 21.99 kg/m2 (07/06/23) ? Vital Signs?? Temperature: 97.7 DegF (07/08/23 11:57:00) Temperature Route: Temporal (07/08/23 11:57:00) Pulse Rate: 84 bpm (07/08/23 11:57:00) Pulse Rate, Lyin bpm (07/07/23 15:14:00) Systolic Blood Pressure, Lyin mm Hg (07/07/23 15:14:00) Diastolic Blood Pressure, Lyin mm Hg (07/07/23 15:14:00) Pulse Rate, Sittin bpm (07/07/23 15:14:00) Systolic Blood Pressure, Sittin mm Hg (07/07/23 15:14:00) Diastolic Blood Pressure, Sittin mm Hg (07/07/23 15:14:00) Pulse Rate, Standin bpm (07/07/23 15:14:00) Systolic Blood Pressure, Standin mm Hg (07/07/23 15:14:00) Diastolic Blood Pressure, Standin mm Hg (07/07/23 15:14:00) Respiratory Rate: 20 br/min (07/08/23 11:57:00) Systolic Blood Pressure:??149 mm Hg??High (07/08/23 11:57:00) Diastolic Blood Pressure: 59 mm Hg (07/08/23 11:57:00) Blood pressure sites: Arm, left (07/08/23 11:57:00) Mean Arterial Pressure: 89 mm Hg (07/08/23 11:57:00) Pulse Pressure: 90 mm Hg (07/08/23 11:57:00) Oxygen Saturation: 95 % (07/08/23 11:57:00) Mode of Delivery (Oxygen): Room air (07/08/23 11:57:00) Early Warning Score: 4 (07/08/23 12:57:58) ? . Physical Exam Constitutional: Alert, in no acute distress. Mental Status: Oriented to person, place and time. Head: Normocephalic. Eyes: Pupils are equal, round and reactive to light.?? Complaints of mild eye vision blurriness, has for >1 month, able to count fingers Ear, Nose and Throat: Oropharynx clear, mucous membranes moist.?? Neck: Supple, Full range of motion. Respiratory: Clear to auscultation and percussion. No wheezing, rales or rhonchi. Cardiovascular: S1 S2 regular. No murmurs, rubs or gallops. Gastrointestinal: Abdomen soft, non-tender, non-distended. Normal bowel sounds.?? Genitourinary: No costovertebral angle tenderness. Neurologic: Cranial nerves II-XII grossly intact. No focal neurological deficits Moves all extremities spontaneously. Sensation intact bilaterally. Skin: No rashes or lesions. No petechiae or purpura. Musculoskeletal: No cyanosis or clubbing. No gross deformities. Normal range of motion. No Leg edema?? Consultants Neurology Pending Results Add On Lab Order ordered on 07/06/2023 COVID-19, RSV, and Flu A/B, Rapid PCR ordered on 07/06/2023 Patient Education Titles The F.A.S.T. Way to Diagnose a Stroke?? Preventing Falls at Home?? Orthostatic Low Blood Pressure (Hypotension)?? Meclizine Oral Tablet?? Hydralazine Oral Tablet?? Preventing Falls: Make Your Health a Priority?? Dizziness (Vertigo) and Balance Problems: Staying Safe?? Follow-Up Appointments Added Follow Up ?Time Frame ?Comments Ashley Morales MD?1 to 2 weeks Patient Instructions You will go home with the following NEW medications:?? hydrALAZINE (hydrALAZINE 25 mg oral tablet)?37.5?Milligram?By Mouth?2 times a day?for 30?Days Meclizine (meclizine 12.5 mg oral tablet)?12.5?Milligram?By Mouth?3 times a day?as needed?as needed for dizziness?for 10?Days? The following medications were CHANGED : ??None ? The following medications were?? STOPPED: ??None ? Activity changes: There are a few things you can do to reduce the problems caused by orthostatic hypotension. They are listed below. ?? Stand up slowly and give your body time to adapt. This is especially important when you get out of bed in the morning. Start by sitting up and waiting a moment. Then swing your legs over the side of the bed and wait some more. When you do stand up, make sure you have something to hold onto in case you start to feel dizzy. ?? Limit activities in hot weather that could make you overheat or sweat a lot. Examples include taking hot showers, running, or hiking. These things can make orthostatic hypotension worse. ?? Make sure you drink enough fluids, especially in hot weather ?? Use extra pillows or an adjustable bed to make the head of your bed higher. This will raise yourhead above your heart slightly. ?? Wear compression stockings. The ones that go to your waist are most helpful, but they can be hard to use. ?? Avoid drinking a lot of alcohol ? Who to follow up with after being discharged from the hospital: -??Please follow up at your primary??care doctor's office in 1-2 weeks. Please make appointment with the clinic.?? - For you??right??eye??chronic vision problem, please??follow??up with??your??eye??doctor as outpatient.? Reasons to immediately return to the emergency room or call 911: - You pass out or faint. - You develop any acute weakness or numbness in any part of the body. - You develop any acute??speech difficulty, swallowing problem,??vision problem.?? -??You are having trouble breathing. - You develop swelling in any arm or a leg. - You are unable to tolerate fluids enough to stay hydrated. - You have any other concerns that you think require emergency management. Post Discharge Care Diet: ??Diabetic Diet ?? Code Status: ??Full Resuscitation ?? Discharge ?07/08/23 13:02:00 EST Discharge Prescriptions ?ePrescribed, 07/08/23 13:02:00 EST Home Health Face to Face *Denotes mandatory otoole ?? *I certify that this patient is under my care and that I or an allowed non- physician working with me had a face to face encounter with the patient on this date:??07/08/2023 13:00 ?? *The encounter with the patient was in whole, or in part, for the following medical condition, which is the primary diagnosis(es) for home health care:??Orthostatic hypotension (I95.1) Hypertensive urgency (I16.0) Dizziness (R42) Blurring, right eye (H53.8) Chronic GERD (K21.9) Coronary artery disease (I25.10) Dementia (F03.90) Frontal headache (R51.9) Gout (M10.9) Hyperlipidemia (E78.5) Hypothyroidism (E03.9) Tobacco use (Z72.0) Type 2 diabetes mellitus (E11.9) HTN (hypertension) Hypothyroidism ? *Select the indications for the discipline/s that are being arranged for this patient. Nursing (select all that apply): [_] None [_] Medication management (reconciliation, teaching)?? [_] Chronic disease management?? [_] Wound care and treatment?? [_] Home safety evaluation [_] Administer SQ/IM/IV medications?? [_] Cath care?? [_] Drain care?? [_] Trach or GT care?? Other _ Occupation Therapy (select all that apply): [_] None [_] ADL Management [_] Fall prevention training [_] Energy conservation [_] Cognitive training Other _ Physical Therapy (select all that apply): [_] None [_] Functional mobility training [_] Home exercise program to strengthen [_] Increase ROM?? [x_] Falls prevention training [x_] Home maintenance program for chronic disease Other _ Speech Therapy (select all that apply): [_] None [_] Swallow evaluation and training [_] Speech and language training [_] Cognitive training to process, organize, and/or recall information Other _ ?? *Homebound due to (select all that apply): [x_] Inability to leave home without assistance/supervision [x_] Inability to ambulate without assistance [_] Pain [_] Decreased strength and endurance [_] Unsteady gait [_] Severe SOB and fatigue [_] Impaired transfers [_] Inability to negotiate stairs [_] Limited weight bearing [_] Mental status change? *Physician Signature: Basil Reid MD? Results Discharge Labs BLOOD BANK Blood Type O Positive ()?? 07/05/2023 19:46 Antibody Screen Negative ()?? 07/05/2023 19:46 ?? BLOOD COUNT & DIFF WBC 8.5 k/mm3 ()?? 07/07/2023 01:58 RBC 4.44 m/mm3 ()?? 07/07/2023 01:58 Hgb 12.5 Gm/dL ()?? 07/07/2023 01:58 Hct 40.2 % ()?? 07/07/2023 01:58 MCV 90.5 femtoliters ()?? 07/07/2023 01:58 MCH 28.2 pg ()?? 07/07/2023 01:58 MCHC 31.1 g/dL (Low)?? 07/07/2023 01:58 Platelet Count 193 k/mm3 ()?? 07/07/2023 01:58 RDW-SD 48.9 femtoliters (High)?? 07/07/2023 01:58 MPV 9.3 femtoliters (Low)?? 07/07/2023 01:58 Nucleated RBC (Automated) 0.0 #/100 WBC'S ()?? 07/07/2023 01:58 Abs. NRBC 0.0 k/mm3 ()?? 07/07/2023 01:58 Abs. Neut 8.3 k/mm3 (High)?? 07/05/2023 20:09 Abs. Lymph 2.3 k/mm3 ()?? 07/05/2023 20:09 Abs. [place] 0.6 k/mm3 ()?? 07/05/2023 20:09 Abs. Eo 0.1 k/mm3 ()?? 07/05/2023 20:09 Abs. Baso 0.1 k/mm3 ()?? 07/05/2023 20:09 Neut % 72.5 % ()?? 07/05/2023 20:09 Lymph % 20.0 % ()?? 07/05/2023 20:09 [place] % 5.6 % ()?? 07/05/2023 20:09 Eos % 1.0 % ()?? 07/05/2023 20:09 Baso % 0.5 % ()?? 07/05/2023 20:09 Imm Gran 0.4 % ()?? 07/05/2023 20:09 Abs. Imm Gran 0.1 k/mm3 ()?? 07/05/2023 20:09 ?? CARDIAC High Sensitivity Troponin (HSTnT) 23 ng/L (High)?? 07/05/2023 22:02 ? CHEM GENERAL Sodium 142 mmol/L ()?? 07/07/2023 01:58 Potassium 3.9 mmol/L ()?? 07/07/2023 01:58 Chloride 110 mmol/L (High)?? 07/07/2023 01:58 Bicarbonate Level 23 mmol/L ()?? 07/07/2023 01:58 Anion Gap 9 ()?? 07/07/2023 01:58 Glucose Level 90 mg/dL ()?? 07/07/2023 01:58 Glucose, POC 120 mg/dL (High)?? 07/08/2023 11:22 Hemoglobin A1C (Monitoring) 6.7 % (High)?? 07/05/2023 20:09 BUN 15 mg/dL ()?? 07/07/2023 01:58 Creatinine-Blood 0.7 mg/dL ()?? 07/07/2023 01:58 Estimated GFR Creatinine 88 ML/MIN/1.73 M2 ()?? 07/07/2023 01:58 Calcium 8.7 mg/dL ()?? 07/07/2023 01:58 Phosphorus 3.0 mg/dL ()?? 07/07/2023 01:58 Magnesium 2.1 mg/dL ()?? 07/07/2023 01:58 AST (SGOT) 19 units/L ()?? 07/05/2023 20:09 ? COAG INR 1.1 ()?? 07/05/2023 20:09 Protime (PT) 11.5 seconds (High)?? 07/05/2023 20:09 APTT 26.2 seconds ()?? 07/05/2023 20:09 ? LIPID STUDIES Cholesterol 109 mg/dL ()?? 07/05/2023 20:09 Triglycerides 132 mg/dL ()?? 07/05/2023 20:09 HDL Cholesterol 35 mg/dL (Low)?? 07/05/2023 20:09 LDL Cholesterol 48 mg/dL ()?? 07/05/2023 20:09 Non HDL Cholesterol 74 mg/dL ()?? 07/05/2023 20:09 ? UA/URINALYSIS Appear/Color, Urine LIGHT YELLOW ()?? 07/05/2023 23:11 Specific [place], Urine >1.050 (High)?? 07/05/2023 23:11 pH, Urine 7.0 ()?? 07/05/2023 23:11 Albumin, Urine TRACE (Abnormal)?? 07/05/2023 23:11 Glucose, Urine NEGATIVE ()?? 07/05/2023 23:11 Ketones, Urine NEGATIVE ()?? 07/05/2023 23:11 Bilirubin, Urine NEGATIVE ()?? 07/05/2023 23:11 Hemoglobin, Urine NEGATIVE ()?? 07/05/2023 23:11 Nitrite, Urine NEGATIVE ()?? 07/05/2023 23:11 Leukocyte, Urine NEGATIVE ()?? 07/05/2023 23:11 Urobilinogen NORMAL mg/dL ()?? 07/05/2023 23:11 WBC's, Urine 1 /HPF ()?? 07/05/2023 23:11 RBC's, Urine <1 /HPF ()?? 07/05/2023 23:11 Bacteria SLIGHT HPF (Abnormal)?? 07/05/2023 23:11 Squamous Epith <1 /HPF ()?? 07/05/2023 23:11 Hold Urine Culture Testing available 48 hours from time of collection. ()?? 07/05/2023 23:11 ?? URINE OTHER Est Creatinine Clearance 54.82 mL/min ()?? 07/07/2023 02:53 ? VIROLOGY Influenza A PCR NEGATIVE ()?? 07/06/2023 11:30 Influenza B PCR NEGATIVE ()?? 07/06/2023 11:30 RSV PCR NEGATIVE ()?? 07/06/2023 11:30 COVID-19 PCR Specimen Source NASAL ()?? 07/06/2023 11:30 COVID-19 PCR Result NEGATIVE ()?? 07/06/2023 11:30 ? Microbiology ?? COVID-19, RSV, and Flu A/B, Rapid PCR?? Completed?? Source: Nasal Body Site: Nose Collected Dt/Tm: 07/06/2023 11:34 Last Updated Dt/Tm: 07/06/2023 12:38 ? Imaging(s) ?Chest 2 Views Frontal and Lat ?? 07/05/2023 20:50??by Alicia Corrales MD ? No acute abnormality. ?CT Head-Hyper Acute Stroke ?? 07/05/2023 20:01??by Alicia Corrales MD ? No acute intracranial pathology. ?CT Angio Neck Hyperacute Stroke ?? 07/05/2023 20:03??by Stephanie Warren MD ?CT Angio Head Hyperacute Stroke ?? 07/05/2023 20:03??by Stephanie Warren MD ? 1. No large vessel occlusion in the [place]. Again noted is moderate to severe narrowing of the right A1 segment, which solely supplies both A2 segments. 2. Moderate narrowing of the distal right posterior communicating artery with origin of the right [employer]. Other mild intracranial stenoses as above, similar to prior. 3. 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 4. 50% stenosis of each cervical ICA, unchanged. ? 35??minutes spent on discharge * Guadalupe BUTLER, Richelle M: PERFORM, MODIFY Event Display: Patient Education/Instruction Authored Date: [id number] Inpatient Adult Discharge Instructions. [address] [address] Name: SARA CARTER : 1945?? Visit: 07/07/2023 17:42?? Current Date: 07/08/2023 14:06 ?? Account: [id number]?? Inpatient Adult Discharge Instructions We would like [...] and their families. Surveys are administered by [employer] ?? If further treatment with your primary care physician or another doctor is recommended, it is important for you to keep the appointment. Call your primary care physician or return to the Emergency Department immediately if your condition worsens, fails to improve, or new symptoms develop. If you need to find a doctor, you can call [facility] Link for a referral at [phone] or toll free at [phone]) or log in to [email or web address].. ?? [facility], in keeping with [facility] guidance, no longer requires face [...] a health care rosalio of your choosing. [employer] is a website that allows you to securely view your medical information including your hospital discharge summary, office visit summaries, medications and follow-up visits. You can also request appointments, renew medications, and request access to your medical information using a health care rosalio of your choosing, or just ask a question. You can enroll at [email or web address] or register during your next office visit. You have been discharged from [facility], Patient Care Unit: D5A??. If you have any questions regarding these instructions, including results of studies pending, afteryou leave, please call us and we will be happy to assist you 25/12. [facility] Your Care Team Attending Physician Basil Reid MD?? Consulting Providers Basil Reid MD?? Discharging Providers Basil Reid MD Reason for Your Visit pt haddizz that started this AM, last known well 5pm. pt started experiencing right sided weaknes and the inability to walk. coming from a [facility]dc home. hx dementia not on blood thinners.?? Your Diagnosis Blurring, right eye Chronic GERD Coronary artery disease Dementia Dizziness Frontal headache Gout Hyperlipidemia Hypertensive urgency Hypothyroidism Orthostatic hypotension Tobacco use Type 2 diabetes mellitus Tests Performed Below is a partial list of the tests performed during your hospitalization. You may have had other tests and procedures not included in this list. Please discuss all test results with your provider. AST Basic Metabolic Panel CBC CBC w/ Differential GLUCOSE POC HEMOGLOBIN A1C High??Sensitivity??Troponin T LIPID PANEL Magnesium Level Phosphorus Level PT (INR) PTT Troponin T, High Sensitivity Type and Screen Urinalysis w/hold for Urine Culture CT Angio Head Hyperacute Stroke CT Angio Neck Hyperacute Stroke CT Head-Hyper Acute Stroke XR Chest 2 Views Frontal and Lat Add On Lab Order?? COVID-19, RSV, and Flu A/B, Rapid PCR?? Primary Care Provider Ashley Morales MD? Discharge Vitals Temperature: 97.7 DegF Height: 161 cm Pulse Rate: 84 bpm Weight: 63.6 kg Respiratory Rate: 20 br/min Body Mass Index: 21.99 kg/m2 Systolic Blood Pressure:??149 mm Hg??High Body surface area: 1.6 Diastolic Blood Pressure: 59 mm Hg ?? Oxygen Saturation: 95 % ?? Studies Pending All studies ordered during this hospital stay have been completed unless listed below. Please discuss all pending results with your provider listed above in these instructions. ?? Add On Lab Order?? COVID-19, RSV, and Flu A/B, Rapid PCR?? What to do next Instructions From Your Doctor You will go home with the following NEW medications:?? hydrALAZINE (hydrALAZINE 25 mg oral tablet)?37.5?Milligram?By Mouth?2 times a day?for 30?Days Meclizine (meclizine 12.5 mg oral tablet)?12.5?Milligram?By Mouth?3 times a day?as needed?as needed for dizziness?for 10?Days? The following medications were CHANGED : ??None ? The following medications were?? STOPPED: ??None ? Activity changes: There are a few things you can do to reduce the problems caused by orthostatic hypotension. They are listed below. ?? Stand up slowly and give your body time to adapt. This is especially important when you get out of bed in the morning. Start by sitting up and waiting a moment. Then swing your legs over the side of the bed and wait some more. When you do stand up, make sure you have something to hold onto in case you start to feel dizzy. ?? Limit activities in hot weather that could make you overheat or sweat a lot. Examples include taking hot showers, running, or hiking. These things can make orthostatic hypotension worse. ?? Make sure you drink enough fluids, especially in hot weather ?? Use extra pillows or an adjustable bed to make the head of your bed higher. This will raise yourhead above your heart slightly. ?? Wear compression stockings. The ones that go to your waist are most helpful, but they can be hard to use. ?? Avoid drinking a lot of alcohol ? Who to follow up with after being discharged from the hospital: -??Please follow up at your primary??care doctor's office in 1-2 weeks. Please make appointment with the clinic.?? - For you??right??eye??chronic vision problem, please??follow??up with??your??eye??doctor as outpatient.? Reasons to immediately return to the emergency room or call 911: - You pass out or faint. - You develop any acute weakness or numbness in any part of the body. - You develop any acute??speech difficulty, swallowing problem,??vision problem.?? -??You are having trouble breathing. - You develop swelling in any arm or a leg. - You are unable to tolerate fluids enough to stay hydrated. - You have any other concerns that you think require emergency management. ?? Orders??:Diabetic Diet Status: ??Full Resuscitation? 07/08/23 13:02:00 EST?? Prescriptions??, ??07/08/23 13:02:00 EST?? You Need to Schedule the Following Appointments Follow Up with??Ashley Morales MD When:??Within 1 to 2 weeks Where: [address] [place] [address]- Discharge Medications SARA CARTER :1945 Visit Date:07/07/2023 Medications: Please continue your medications until treatment is completed or stopped by your provider. Medications not listed below should be discontinued. Discuss any questions related to medications with your provider. What How Much When Instructions Next Dose New hydrALAZINE (hydrALAZINE 25 mg oral tablet) 37.5 Milligram Oral Twice a day Duration: 30 Days Pickup at [facility] Today 2?? 9p New Meclizine (meclizine 12.5 mg oral tablet) 12.5 Milligram Oral 3 times a day as needed for as needed for dizziness Duration: 10 Days Pickup at [facility] Today 2?? 9p Unchanged Acetaminophen (Tylenol 325 mg oral capsule) 2 capsule Oral Every 4 hours as needed for as needed for fever Today 2/4 if needed Unchanged Al Hydroxide/ Mg Hydroxide/ Simethicone (Mintox) 30 Milliliter Oral Every 4 hours as needed for as needed for indigestion Today 2/4 if needed Unchanged Allopurinol (allopurinol 100 mg oral tablet) 1 tab(s) Oral Daily Tomorrow 2/5- 9a?? Unchanged Aspirin (aspirin 81 mg oral delayed release tablet) 1 tab(s) Oral Daily Tomorrow 2/5?? 9a Unchanged Cholecalciferol (Vitamin D3 5000 intl units oral tablet) 1 tab(s) Oral Daily Tomorrow 2/?? 9a Unchanged Clopidogrel (Plavix 75 mg oral tablet) 1 tab(s) Oral Daily Tomorrow 2?? 9a Unchanged Cyanocobalamin (Vitamin B-12 1000 mcg oral tablet) 1 tab(s) Oral Daily Tomorrow 2?? 9a Unchanged Docusate-Senna (Senna Plus 50 mg-8.6 mg oral tablet) 2 tab(s) Oral Twice a day Today 2?? 9p Unchanged Donepezil (donepezil 5 mg oral tablet) 1 tab(s) Oral Daily at Bedtime Today 2?? 9p Unchanged Famotidine (famotidine 40 mg oral tablet) 1 tab(s) Oral Daily Tomorrow 2?? 9a Unchanged Gabapentin (gabapentin 100 mg oral capsule) 1 capsule Oral Twice a day Today 2?? 9p Unchanged Glycerin (glycerin adult rectal suppository) 1 suppository(ies) Per rectum Daily as needed for for constipation Tomorrow 2 if?? needed Unchanged insulin degludec (Tresiba FlexTouch 100 units/ mL subcutaneous solution) 18 unit(s) Subcutaneous Infusion Daily at Bedtime Today 2?? 9p Unchanged Levothyroxine (levothyroxine 0.1 mg oral tablet) 1 tab(s) Oral Daily Tomorrow 2?? 7a Unchanged Lisinopril (lisinopril 40 mg oral tablet) 1 tab(s) Oral Daily Tomorrow?? 2 9a Unchanged Loperamide (loperamide 2 mg oral capsule) 1 capsule Oral Daily as needed for for loose stool NTE 8 capsules in 24hrs ?? Today 2?? if needed Unchanged Metoprolol (Metoprolol Succinate ER 25 mg oral tablet, extended release) 2 tab(s) Oral Daily Tomorrow 2 9a Unchanged Milk of Magnesia (Milk of Magnesia 8% oral suspension) 30 Milliliter Oral Daily at Bedtime as needed for for constipation Today 2?? 9p Unchanged Miscellaneous Rx (BD PEN NEEDL MIS [id number] [place]) n/a Unchanged Polyethylene Glycol 3350 (polyethylene glycol 3350 oral powder for reconstitution) 17 gram Oral Twice a day as needed for Constipation dissolve in water or juice before taking ?? Today 2/4?? 9p Unchanged Pyridoxine (Vitamin B6 100 mg oral tablet) 1 tab(s) Oral Daily Tomorrow 2?? 9a Unchanged Rosuvastatin (rosuvastatin 20 mg oral capsule) 1 capsule Oral Daily Tomorrow 2?? 9a Pharmacy Information [facility]: [id number] [facility] [address], [place] [id number] [phone] Prescription Given During Visit Meclizine (meclizine 12.5 mg oral tablet) - 12.5 mg, By Mouth, 3 times a day, # 30 tablet, 0 Refills, [facility], [facility] [address] [place] [address] [phone]?? hydrALAZINE (hydrALAZINE 25 mg oral tablet) - 37.5 mg, By Mouth, 2 times a day, # 90 tablet, 0 Refills, [facility], [facility] [address] [place] [address] [phone]?? Laboratory Results Below is a partial list of the most recent Laboratory test results done prior to this discharge. You may have had other tests and procedures not included in this list. Please discuss all test resultswith your provider. Est Creatinine Clearance - 54.82 mL/min (07/07/2023) AST (07/05/2023) ???AST (SGOT) - 19 units/L Basic Metabolic Panel (07/07/2023) ???Sodium - 142 mmol/L???Potassium - 3.9 mmol/L???Chloride - 110 mmol/L???Bicarbonate Level - 23 mmol/L???Anion Gap - 9???Glucose Level - 90 mg/dL???BUN - 15 mg/dL???Creatinine-Blood - 0.7 mg/dL???Estimated GFR Creatinine - 88 ML/MIN/1.73 M2???Calcium - 8.7 mg/dL CBC (07/07/2023) ???WBC - 8.5 k/mm3???RBC - 4.44 m/mm3???Hgb - 12.5 Gm/dL???Hct - 40.2 %???MCV - 90.5 femtoliters???MCH - 28.2 pg???MCHC - 31.1 g/dL???Platelet Count - 193 k/mm3???RDW-SD - 48.9 femtoliters???MPV - 9.3 femtoliters???Nucleated RBC (Automated) - 0.0 #/100 WBC'S???Abs. NRBC - 0.0 k/mm3 CBC w/ Differential (07/05/2023) ???WBC - 11.5 k/mm3???RBC - 4.77 m/mm3???Hgb - 13.6 Gm/dL???Hct - 42.6 %???MCV - 89.3 femtoliters???MCH - 28.5 pg???MCHC - 31.9 g/dL???Platelet Count - 230 k/mm3???RDW-SD - 46.9 femtoliters???MPV - 9.3 femtoliters???Nucleated RBC (Automated) - 0.0 #/100 WBC'S???Abs. NRBC - 0.0 k/mm3???Abs. Neut - 8.3 k/mm3???Abs. Lymph - 2.3 k/mm3???Abs. [place] - 0.6 k/mm3???Abs. Eo - 0.1 k/mm3???Abs. Baso - 0.1 k/mm3???Neut % - 72.5 %???Lymph % - 20.0 %???[place] % - 5.6 %???Eos % - 1.0 %???Baso % - 0.5 %???Imm Gran - 0.4 %???Abs. Imm Gran - 0.1 k/mm3 GLUCOSE POC (07/08/2023) ???Glucose, POC - 120 mg/dL HEMOGLOBIN A1C (07/05/2023) ???Hemoglobin A1C (Monitoring) - 6.7 % High??Sensitivity??Troponin T (07/05/2023) ???High Sensitivity Troponin (HSTnT) - 24 ng/L LIPID PANEL (07/05/2023) ???Cholesterol - 109 mg/dL???Triglycerides - 132 mg/dL???HDL Cholesterol - 35 mg/dL???LDL Cholesterol - 48 mg/dL???Non HDL Cholesterol - 74 mg/dL Magnesium Level (07/07/2023) ???Magnesium - 2.1 mg/dL Phosphorus Level (07/07/2023) ???Phosphorus - 3.0 mg/dL PT (INR) (07/05/2023) ???INR - 1.1???Protime (PT) - 11.5 seconds PTT (07/05/2023) ???APTT - 26.2 seconds Troponin T, High Sensitivity (07/05/2023) ???High Sensitivity Troponin (HSTnT) - 23 ng/L Type and Screen (07/05/2023) ???Blood Type - O Positive???Antibody Screen - Negative Urinalysis w/hold for Urine Culture (07/05/2023) ? ?Appear/Color, Urine - LIGHT YELLOW? ?Specific [place], Urine - >1.050? ?pH, Urine - 7.0? ?Albumin, Urine - TRACE???Glucose, Urine - NEGATIVE???Ketones, Urine - NEGATIVE???Bilirubin, Urine - NEGATIVE???Hemoglobin, Urine - NEGATIVE???Nitrite, Urine - NEGATIVE???Leukocyte, Urine - NEGATIVE???Urobilinogen - NORMAL? ?WBC's, Urine - 1 /HPF? ?RBC's, Urine - <1 /HPF? ?Bacteria - SLIGHT? ?Squamous Epith - <1 /HPF? ?Hold Urine Culture - Testing available 48 hours [...] Educational Leaflet Providered with your Discharge Instructions. The F.A.S.T. Way to Diagnose a Stroke?? Preventing Falls at Home?? Orthostatic Low Blood Pressure (Hypotension)?? Meclizine Oral Tablet?? Hydralazine Oral Tablet?? Preventing Falls: Make Your Health a Priority?? Dizziness (Vertigo) and Balance Problems: Staying Safe?? Valuables and Belongings I fully understand and agree that [facility] accepts no responsibility for all my personal [...] to send valuables and belongings home. ?? Date for Pt to Sign Valuables/Belongings: 07/05/23 22:45:00 ?? Other Discharge Information ? Case Management Discharge Plan?? Discharge Plan?? Discharge Agency Information?? Discharge Level of Care at Discharge: Homehealth/VNA Name of Agency #1: [facility] Discharge VNA/Hospice/Home Care: [facility] [phone] Service Categories #1: Physical Therapy ?? Service Comments #1: A referral was made to [facility] for home physical therapy. Someonewill contact you to arrange a visit within 1-2 days. If you do not hear from anyone, please contactthe agency ?? Pulmonary Rehab Status?? Pulmonary Rehab Discharge Status?? Respiratory Rate: 20 br/min ? Common Emergency Awareness Tips IS [...] are strongly encouraged to quit. Please call [facility] leemail Link at [phone] or [phone] ([phone]) or log in to [email or web address] for referrals to smoking cessation programs. ?? 587 Suicide & Crisis Lifeline is available 25/12 if you or someone you know needs to find a reason to keep living. By calling 011 you'll be connected to a skilled, trained counselor at a crisis center in your area. INPATIENT DISCHARGE INSTRUCTIONS SIGNATURE PAGE SARA CARTER Location:[facility] Registration Date and Time:07/07/2023 17:42 EST Primary Care Physician: Ashley Morales MD, Attending Physician: Basil Reid MD, I SARA CARTER LOU, have received the above patient education materials/instructions and have verbalized understanding. If ambulance or transport services are being used I further acknowledge being given a choice of service. ?? If you need to contact me, please call me at this number: . Patient/Medical Affairs Leader Name: Patient/Medical Affairs Leader Signature: Relationship to Patient: Witness Name/Signature: Date: * Basil Reid MD: PERFORM Event Display: Patient Education Leaflets Authored Date: [id number] [address] F[address]T. Way to Diagnose a Stroke ?? The F.A.S.T. Way to Diagnose a Stroke - Video One person dies of stroke every four minutes in the [facility]. Will you be prepared to take action in an emergency? Dr. Ant Irwin teaches you the F.A.S.T. way to diagnose a stroke. To view the video go to this web address: [email or web address] Or, scan this QR code with your smart phone ?? [employer]. All rights reserved. This information is not intended as a substitute for professional medical care. Always follow your healthcare professional's instructions. ?? * Basil Reid MD: PERFORM Event Display: Patient Education Leaflets Authored Date: [id number] Preventing Falls at Home ?? 99987 Preventing Falls at Home A person can fall for many reasons. Older adults may fall because reaction time slows as we age. Your muscles and joints may get stiff, weak, or less flexible because of illness, medicines, or a physical condition. Other health problems that make falls more likely include: ??? Arthritis ??? Dizziness or lightheadedness when you stand up (orthostatic hypotension) ??? History of a stroke ??? Dizziness ??? Anemia ??? Certain medicines taken for mental illness or to control blood pressure. ??? Problems with balance or gait ??? Bladder or urinary problems ??? History of falling ??? Changes in vision (vision impairment) ??? Changes in thinking skills and memory (cognitive impairment) ??? Muscle weakness ??? Excessive alcohol use Falls can cause serious injuries, such as head trauma, broken bones, dislocated joints, internal bleeding, and cuts. Injuries like these can limit your independence. Prevention tips To help prevent falls and fall-related injuries, follow the tips below.?? Floors To make floors safer:? Put nonskid pads under area rugs. ??? Remove small rugs. ??? Replace worn floor coverings. ??? Tack carpets firmly to each step on carpeted stairs. Put nonskid strips on the edges of uncarpeted stairs. ??? Keep floors and stairs free of clutter and cords. ??? Keep floors and stairs clear of animal and children's toys ??? Arrange furniture so there are clear pathways. ??? Clean up any spills right away. Don't walk on wet floors. Bathrooms To make bathrooms safer:? Install grab bars in the tub or shower. ??? Install a raised (elevated) toilet or toilet seat. ??? Apply nonskid strips or put a nonskid rubber mat in the tub or shower. ??? Sit on a bath chair to bathe. ??? Use bathmats with nonskid backing. Lighting To improve visibility in your home:? Keep a flashlight in each room. Or put a lamp next to thebed within easy reach. ??? Put nightlights in the bedrooms, hallways, kitchen, and bathrooms. ??? Make sure all stairways have good lighting. There should be a light switch at the bottom and the top of each stairway. ?? Other changes to make ??? Look around to find any safety hazards. Look closely at doorways, walkways, and the driveway. Remove or repair any safety problems that you find. ??? Wear shoes that fit well. Never go barefoot or wear socks or slippers with smooth soles. ??? See your eye care provider once a year if you wear glasses. This is to be sure the prescription is still right for you. ??? Take your time when going up and down stairs; always use handrails. Never carry items in both hands. ??? Wear an alert necklace or bracelet if you are already prone to falling. ??? Put handrails on both sides of stairs and in walkways for more support. To prevent injury to your wrist or arm, don???t use handrails to pull yourself up. ??? Use a reach stick to grab [id number] items. ??? Install grab bars wherever needed to pull yourself up. ??? Arrange items that you use often. This will make them easier to find or reach. ??? Keep track of where your pets are so you don't trip over them when you are walking. ?? Last Reviewed Date: 2022 ?? 5042-4746 [employer]. All rights reserved. This information is not intended as a substitute for professional medical care. Always follow your healthcare professional's instructions. ?? * Jeanette LORA, Basil: PERFORM Event Display: Patient Education Leaflets Authored Date: [id number] Orthostatic Low Blood Pressure (Hypotension) ?? [id number] Orthostatic Low Blood Pressure (Hypotension) A blood [...] breathing ?? Last Reviewed Date: 2021 ?? 2516-5640 [employer]. All rights reserved. This information is not intended as a substitute for professional medical care. Always follow your healthcare professional's instructions. ?? Patient Care team information Care Team Personnel Name: Yessica Koch RN Position: [facility] RN Member Role: Primary Care Nurse Name: Chase Otoole RN Position: [facility] RN Member Role: Primary Care Nurse Name: Radha Crawford Position: [facility] RN Member Role: Primary Care Nurse Name: Ashley Morales MD Position: [facility] Physician - Primary Care Member Role: PCP Address: Address: [address] [place], [place] [address] Name: Svitlana Mcgee RN Position: [facility] RN Member Role: Primary Care Nurse Name: Chip Colon RN Position: [facility] RN Member Role: Primary Care Nurse Name: Soraida Handy RN Position: [facility] RN Member Role: Primary Care Nurse Name: Thom Kuo RN Position: [facility] RN Member Role: Primary Care Nurse Name: Ileana Khan RN Position: [facility] Onco RN Member Role: Primary Care Nurse Name: Yolanda Anderson RN Position: [facility] RN Member Role: Primary Care Nurse Name: Becky Quezada RN Position: [facility] SN RN Member Role: Primary Care Nurse Name: Justa Greco RN Position: [facility] RN Member Role: Primary Care Nurse Name: Sara Dorantes RN Position: [facility] RN Member Role: Primary Care Nurse Name: Chelita Bailey LPN Position: [facility] RN Member Role: Primary Care Nurse
--- OUTSIDE RECORDS SUMMARY | 2023-07-20 23:05 | XMS_ITS | Continuity of Care Document ---
Author Name Unknown Organization [facility] ter Address [address] [place] [id number]- Care Team Providers Care Customer Service Advisor Name Role Phone Ashley Morales MD Primary [facility] Phys[id number] Date[facility]/23/22 - 02/24/[address] [address]- Encounter Diagnosis Lightheadedness(Final) - 02/24/22 Discharge Disposition: A-D/C Home Attending Physician: Rimma Michael MD, João Coles Admitting Physician: Pj LORA, Bradley Chandler Referring Physician: Not on Staff, Referring MD Allergies, Adverse Reactions, Alerts Substance Reaction Severity Status ciprofloxacin Active azithromycin Nausea and vomiting status: disruptive effects Active penicillin Rash Active simvastatin Active atorvastatin Active repaglinide Nausea and vomiting Active sulfa drugs Nausea and vomiting Active rosuvastatin 1 Active cefTRIAXone Acute diarrhea Active oxyCODONE Active levoFLOXacin 2 Active metFORMIN Acute diarrhea Active cephalexin Nausea and vomiting Active sertraline Anxiety Active citalopram Active Nitrofurantoin Monohydrate/Macrocrystals Active pioglitazone Active Cefuroxime Axetil Acute diarrhea Active 1Patient taking rosuvastatin as outpatient (active prescription as of 09/2021). 2numb lips Medications allopurinol 100 mg oral tablet TAKE 1 TABLET BY MOUTH EVERY DAY Start Date: 12/06/21 Status: Ordered amLODIPine 5 mg oral tablet 5 mg, 1, tablet, By Mouth, Daily, # 90 tablet, Refills 1, Tot. Refills 1, Maintenance, 01/27/22 10:57:00 EDT, Route to Pharmacy Electronically, [facility], Partial fill upon patient request if the prescription is for a schedule II opioid... Start Date: 01/27/22 Status: Ordered aspirin 81 mg oral delayed release tablet 81 mg, 1, tablet, By Mouth, Daily, # 30 tablet, Refills 0, Tot. Refills 0, Maintenance, 02/24/22 16:24:00 EDT, Route to Pharmacy Electronically, [facility], Partial fill upon patient request if the prescription is for a schedule II opioi... Start Date: 02/24/22 Status: Ordered donepezil 5 mg oral tablet [...] 1 Refills, Maintenance, 12/07/21 9:50:00 EDT, Tablet, [facility], Partial fill upon patient request if [...] EVERY DAY Start Date: 12/06/21 Status: Ordered Plavix 75 mg oral tablet 75 mg, 1, tablet, By Mouth, Daily, Refills 0, Maintenance, 11/08/19 12:35:00 EDT Start Date: 11/08/19 Status: Ordered rosuvastatin 20 mg oral capsule 1 capsule = 20 mg, By Mouth, Daily, # 90 capsule, 1 Refills, Maintenance, 01/27/22 10:57:00 EDT, Capsule, [facility], Partial fill upon patient request if the prescription is for a schedule II opioid drug., 160, cm, 12/07/21 7:04:00 EDT,... Start Date: 01/27/22 Status: Ordered Tresiba FlexTouch 200 units/mL subcutaneous [...] opioid drug. Start Date: 12/06/21 Status: Ordered Vitamin B6 = 100 mg, [...] Date: 01/26/22 Status: Ordered Problem List Condition Effective Dates Status Health Status Inform ant CAD (coronary artery disease)(Confirmed) Active Gout(Confirmed) Active HTN (hypertension)(Confirmed) Active Hypothyroidism(Confirmed) Active Cognitive impairment(Confirmed) Active SSS (sick sinus syndrome)(Confirmed) Active Type 2 diabetes mellitus(Confirmed) Active Results Radiology Reports * Exam Date Time Procedure Performing Provider Status 02/24/22 12:06 AM Chest Portable Michael Panchal; Auth (Ve rified) Notes: (Chest Portable) Reason For Exam: Shortness of Breath RESULT: Chest Portable Chest Portable HX OF PRESENT ILLNESS: Pt states at around 4pm she developed sudden onset of dizziness that has been intermittent since with changes in her vision. Pt states when she looks up it looks like sand . States it looks as though things are moving. Denies any injury trauma; Reason: Shortness of Breath; Clinical Question(s): CHF; Order Comment: @2335pm pt in CT / CHF COMPARISON: 01/26/2022 FINDINGS: LINES AND TUBES: Dual-lead left subclavian pacer wires are intact. LUNGS AND PLEURA: Clear lungs. Normal pulmonary vascularity. No pleural effusion. No pneumothorax. HEART, MEDIASTINUM AND YOMI: Heart is normal in size. Normal mediastinal and hilar contour. BONES AND SOFT TISSUES: No acute abnormality. IMPRESSION: No evidence of acute abnormality. WSN: [id number] Ordering Physician: Aniyah Calvert Dictated By: Antwan Caba MD Dictated Date/Time: 02/24/22 8:04 am Reviewed By: Antwan Caba MD Signed By: Antwan Caba MD Signed Date/Time: 02/24/22 8:04 am Transcribed By: FERMIN Transcribed Date/Time: 02/24/22 8:04 am Vital Signs Most recent to oldest [Reference Range]: 1 2 3 Oxygen Saturation [94-100 %] 96 % (02/24/22 6:03 PM) 95 % (02/24/22 2:27 PM) 95 % (02/24/22 11:43 AM) Pulse Rate [55-90 bpm] 60 bpm (02/24/22 6:03 PM) 60 bpm (02/24/22 2:27 PM) 60 bpm (02/24/22 11:43 AM) Blood Pressure [90-138/55-84 mm Hg] 120/56mm Hg (02/24/22 6:03 PM) 131/67mm Hg (02/24/22 2:27 PM) 143/65mm Hg *H* (02/24/22 11:43 AM) Respiratory Rate [16-30 br/min] 17 br/min (02/24/22 6:03 PM) 18 br/min (02/24/22 2:27 PM) 19 br/min (02/24/22 11:43 AM) Temperature [96.8-100.4 DegF] 97.8 DegF (02/24/22 11:43 AM) 98.0 DegF (02/24/22 8:00 AM) 98.1 DegF (02/24/22 5:32 AM) Mode of Delivery (Oxygen) Room air (02/24/22 6:03 PM) Room air (02/24/22 2:27 PM) Room air (02/24/22 11:43 AM) Blood pressure sites Arm, right (02/24/22 6:03 PM) Arm, left (02/24/22 2:27 PM) Arm, left (02/24/22 11:43 AM) Temperature Route Oral (02/24/22 8:00 AM) Oral (02/24/22 5:32 AM) Oral (02/24/22 3:15 AM) Social History Social History Type Response Tobacco Use: 4 or less cigar ettes(less than 1/4 pack)/day in last 30 days. 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 Pt states when she looks up it looks like sand . States it looks as though things are moving. Denies any injury trauma; Reason: Shortness of Breath; Clinical Question(s): CHF; Order Comment: @2335pm pt in CT / CHF COMPARISON: 01/26/2022 FINDINGS: LINES AND TUBES: Dual-lead left subclavian pacer wires are intact. LUNGS AND PLEURA: Clear lungs. Normal pulmonary vascularity. No pleural effusion. No pneumothorax. HEART, MEDIASTINUM AND YOMI: Heart is normal in size. Normal mediastinal and hilar contour. BONES AND SOFT TISSUES: No acute abnormality. IMPRESSION: No evidence of acute abnormality. WSN: [id number] Ordering Physician: Aniyah Calvert Dictated By: Antwan Caba MD Dictated Date/Time: 02/24/22 8:04 am Reviewed By: Antwan Caba MD Signed By: Antwan Caba MD Signed Date/Time: 02/24/22 8:04 am Transcribed By: FERMIN Transcribed Date/Time: 02/24/22 8:04 am Care Team Personnel Name: Ashley Morales MD Address: [address] [facility] [place] [address]-
--- OUTSIDE RECORDS SUMMARY | 2023-07-20 23:05 | XMS_ITS | Continuity of Care Document ---
Author Name Unknown Organization [facility] ter Address [address] [place] [address]- Care Team Providers Care Assistant Professor Of Anthropology Name Role Phone Ashley Morales MD Primary Care Physician [place] [facility] Date[place]s): 01/26/22 - 01/27/[address] [address]- Encounter Diagnosis Acute coronary syndrome(Final) - 01/26/22 Discharge Disposition: A-D/C Home Attending Physician: Ana Paula Carney MD Admitting Physician: Bassam Patel MD Referring [...] oral tablet 5 mg, Tablet, By Mouth, 01/27/22 9:00:00 EDT Start Date: 01/27/22 Stop Date: 01/27/22 Status: Completed amLODIPine 5 mg oral tablet 5 mg, 1, tablet, By Mouth, Daily, # 90 tablet, Refills 1, Tot. Refills 1, Maintenance, 01/27/22 10:57:00 EDT, Route to Pharmacy Electronically, [facility], Partial fill upon patient request if the prescription is for a schedule II opioid... Start Date: 01/27/22 Status: Ordered donepezil 5 mg oral tablet [...] oral capsule 100 mg, Capsule, By Mouth, 01/27/22 9:00:00 EDT Start Date: 01/27/22 Stop Date: 01/27/22 Status: Completed gabapentin 100 mg oral capsule 100 mg, 1, capsule, By Mouth, 2 times a day, # 90 capsule, Refills 0, Maintenance, 11/08/19 12:31:00 EDT Start Date: 11/08/19 Status: Ordered levothyroxine 0.1 mg oral tablet 1 tablet = 100 mcg, By Mouth, Daily, # 90 tablet, 1 Refills, Maintenance, 12/07/21 9:50:00 EDT, Tablet, [facility], Partial fill upon patient request if the prescription is for a schedule II opioid drug., 160, cm, 12/07/21 7:04:00 EDT, .. Start Date: 12/07/21 Status: Ordered lisinopril 20 mg oral tablet 40 mg, Tablet, By Mouth, 01/27/22 9:00:00 EDT Start Date: 01/27/22 Stop Date: 01/27/22 Status: Completed lisinopril 40 mg oral tablet 1 tablet = 40 mg, By Mouth, Daily, # 30 tablet, 0 Refills, Maintenance, 12/06/21 9:32:00 EDT, Tablet, Partial fill upon patient request if the prescription is for a schedule II opioid drug. Start Date: 12/06/21 Status: Ordered metoprolol 50 mg oral tablet, extended release 50 mg, XL Tablet, By Mouth, 01/27/22 9:00:00 EDT Start Date: 01/27/22 Stop Date: 01/27/22 Status: Completed Metoprolol Succinate ER 25 mg [...] 1 Refills, Maintenance, 01/27/22 10:57:00 EDT, Capsule, [facility], Partial fill upon patient request [...] drug. Start Date: 12/06/21 Status: Ordered Vitamin D3 5000 intl units [...] Exam Date Time Procedure Performing Provider Status 01/26/22 7:04 PM Chest 2 Views Frontal and Lat Alessandra Melara; Auth (Verified) Notes: (Chest 2 Views Frontal and Lat) Reason For Exam: Pleuritic Pain RESULT: Chest 2 Views Frontal and Lat Chest 2 Views Frontal and Lat Hx of Present Illness: cp X2 HOURS; Reason: Pleuritic Pain; Clinical Question(s): CHF COMPARISON: X-ray 12/06/21 FINDINGS: LINES AND TUBES: Dual-lead left subclavian pacer/AICD wires are intact. LUNGS AND PLEURA: Clear lungs. Normal pulmonary vascularity. No pleural effusion. No pneumothorax. HEART, MEDIASTINUM AND YOMI: Heart is normal in size. Normal upper mediastinal and hilar contour. BONES AND SOFT TISSUES: No acute abnormality. IMPRESSION: No acute abnormality. WSN: [id number] Ordering Physician: Antoni Mcneill Dictated By: Antwan Yang MD Dictated Date/Time: 01/26/22 7:13 pm Reviewed By: Antwan Yang MD Signed By: Antwan Yang MD Signed Date/Time: 01/26/22 7:13 pm Transcribed By: FERMIN Transcribed Date/Time: 01/26/22 7:13 pm Vital Signs Most recent to oldest [Reference Range]: 1 2 3 4 Oxygen Saturation [94-100 %] 95 % (01/27/22 8:53 AM) 97 % (01/27/22 3:36 AM) 98 % (01/26/22 11:18 PM) Pulse Rate [55-90 bpm] 60 bpm (01/27/22 8:53 AM) 60 bpm (01/27/22 8:25 AM) 60 bpm (01/27/22 3:36 AM) Blood Pressure [90-138/55-84 mm Hg] 140/58mm Hg *H* (01/27/22 8:53 AM) 124/64mm Hg (01/27/22 8:25 AM) 124/64mm Hg (01/27/22 8:25 AM) 124/64mm Hg (01/27/22 8:25 AM) Respiratory Rate [16-30 br/min] 20 br/min (01/27/22 8:53 AM) 16 br/min (01/27/22 8:25 AM) 18 br/min (01/27/22 3:36 AM) Temperature [96.8-100.4 DegF] 98.2 DegF (01/27/22 8:53 AM) 97.7 DegF (01/27/22 3:36 AM) 97.7 DegF (01/26/22 11:18 PM) Mode of Delivery (Oxygen) Room air (01/27/22 8:53 AM) Room air (01/27/22 3:36 AM) Room air (01/26/22 11:18 PM) Blood pressure sites Arm, left (01/27/22 8:53 AM) Arm, right (01/27/22 3:36 AM) Arm, left (01/26/22 11:18 PM) Temperature Route Oral (01/27/22 8:53 AM) Oral (01/27/22 3:36 AM) Oral (01/26/22 11:18 PM) Social History Social History Type Response Tobacco Use: 4 or less cigar ettes(less than 1/4 pack)/day in last 30 days. Sex Note * BHSPowers[employer] , CIS S: TRANSCRIBE Antwan Yang MD: VERIFY Event Display: Result: Authored Date: Chest 2 Views Frontal and Lat Hx of Present Illness: cp X2 HOURS; Reason: Pleuritic Pain; Clinical Question(s): CHF COMPARISON: X-ray 12/06/21 FINDINGS: LINES AND TUBES: Dual-lead left subclavian pacer/AICD wires are intact. LUNGS AND PLEURA: Clear lungs. Normal pulmonary vascularity. No pleural effusion. No pneumothorax. HEART, MEDIASTINUM AND YOMI: Heart is normal in size. Normal upper mediastinal and hilar contour. BONES AND SOFT TISSUES: No acute abnormality. IMPRESSION: No acute abnormality. WSN: [id number] Ordering Physician: Antoni Mcneill Dictated By: Antwan Yang MD Dictated Date/Time: 01/26/22 7:13 pm Reviewed By: Antwan Yang MD Signed By: Antwan Yang MD Signed Date/Time: 01/26/22 7:13 pm Transcribed By: FERMIN Transcribed Date/Time: 01/26/22 7:13 pm Care Team Personnel Name: Ashley Morales MD Address: [address] [place] [address]
--- OUTSIDE RECORDS SUMMARY | 2023-07-20 23:05 | XMS_ITS | Continuity of Care Document ---
Author Name Unknown Organization [facility] Address [address] [place] [id number]- Care Team Providers Care Bulb Brander Name Role Phone Ashley Morales MD Primary Care Physician [phone] Encounter [facility] Date(s): 10/13/22 - 10/17/[address] [address]- Encounter Diagnosis UTI symptoms(Final) - 10/13/22 Dizzinesses(Final) - 10/13/22 Discharge Disposition: A-D/C Home Attending Physician: Basil Reid MD Admitting Physician: Adriel Rodriguez MD Referring Physician: Not on Staff, Referring [...] 01/27/22 10:57:00 EDT, Route to Pharmacy Electronically, [facility], Partial fill upon patient request if the prescription is for a schedule II opioid... Start Date: 01/27/22 Status: Ordered aspirin 81 mg oral delayed release tablet 81 mg, 1, tablet, By Mouth, Daily, # 30 tablet, Refills 0, Tot. Refills 0, Maintenance, 02/24/22 16:24:00 EDT, Route to Pharmacy Electronically, [facility], Partial fill upon patient request if the prescription is for a schedule II opioi... Start Date: 02/24/22 Status: Ordered BD PEN NEEDL MIS [id number] [place] BD PEN NEEDL MIS [id number] [place], 0 Refills, Maintenance, 09/18/22 15:29:00 EDT [...] oral capsule 100 mg, Capsule, By Mouth, 10/17/22 9:00:00 EDT Start Date: 10/17/22 Stop Date: 10/17/22 Status: Completed gabapentin 100 mg oral capsule 100 mg, 1, capsule, By Mouth, 2 times a day, # 90 capsule, Refills 0, Maintenance, 11/08/19 12:31:00 EDT Start Date: 11/08/19 Status: Ordered levothyroxine 0.1 mg oral tablet 1 tablet = 100 mcg, By Mouth, Daily, # 90 tablet, 1 Refills, Maintenance, 12/07/21 9:50:00 EDT, Tablet, [facility], Partial fill upon patient [...] release 50 mg, XL Tablet, By Mouth, 10/17/22 9:00:00 EDT Start Date: 10/17/22 Stop Date: 10/17/22 Status: Completed Metoprolol Succinate ER 25 mg [...] 1 Refills, Maintenance, 01/27/22 10:57:00 EDT, Capsule, [facility], Partial fill upon patient request if [...] Reports Name Date Urine Culture (URINE CULTURE) 10/13/22 Microbiology Reports TEST:Urine Culture STATUS:Auth (Verified) BODY SITE: SOURCE:URINE COLLECTED DATE/TIME:10/13/22 8:01 PM Urine Culture SPECIMEN DESCRIPTION : URINE SPECIAL REQUESTS : NONE CULTURE : >100,000 COL/ML ESCHERICHIA COLI This isolate was identified using Maldi-TOF system These AST results were performed on the EveryRackcan ID and AST system REPORT STATUS : FINAL 10/16/2022 ORGANISM >100,000 COL/ML ESCHERICHIA COLI This isolate was identified using Maldi-TOF system These AST results were performed on the Microscan ID and AST system METHOD MIN. INHIB. CONC. (MCG/ML) AMPICILLIN SUSCEPTIBLE AMPICILLIN/SULBACTAM SUSCEPTIBLE AMOXICILLIN/CLAVULAN SUSCEPTIBLE CEFAZOLIN SUSCEPTIBLE CEFEPIME SUSCEPTIBLE CEFTRIAXONE SUSCEPTIBLE CIPROFLOXACIN RESISTANT ERTAPENEM SUSCEPTIBLE GENTAMICIN SUSCEPTIBLE LEVOFLOXACIN RESISTANT MEROPENEM SUSCEPTIBLE NITROFURANTOIN INTERMEDIATE PIPERACILLIN/TAZOBAC SUSCEPTIBLE TRIMETH/SULFAMETHOX SUSCEPTIBLE TETRACYCLINE SUSCEPTIBLE Radiology Reports * Exam Date Time Procedure Performing Provider Status 10/13/22 9:[address] Angio Neck Hyperacute Stroke Aniyah Patel; Auth (Verified) Notes: (CT Angio Neck Hyperacute Stroke) Reason For Exam: Aneurysm, neck vessel(s);Other: RESULT: CT Angio Neck Hyperacute Stroke CT Angio Head Hyperacute Stroke, CT Angio Neck Hyperacute Stroke Hx of Present Illness: Pt. is from SNF. Pt. reports that after dinner she felt dizzy and unasteady on her feet. No other complaints, Fast score -0; Reason: Other:; Stroke; Clinical Question(s): Other:; Hematoma Aneurysm / Other: TECHNIQUE: CT angiogram of the head and [...] optimize exposure parameters. RADIATION DOSE PARAMETERS: CTDIvol Head: 47.58 mGy, DLP Head: 1732 mGy*cm. COMPARISON: Noncontrast CT head performed concurrently. FINDINGS: CTA OF THE NECK: Arch: There is variant anatomy of the aortic arch, with common origin of the brachiocephalic arteryand left common carotid artery, and direct origin of the left vertebral artery from the aorta. There is moderate atherosclerotic plaque of the aortic arch, but origins of the supra aortic vessels arepatent. Calcified plaque results in moderate narrowing of the proximal right subclavian artery. Right carotid system: The common carotid and cervical internal carotid arteries are patent. There is calcified atherosclerotic plaque at the carotid bifurcation, resulting in moderate ICA stenosis (50%) by NASCET criteria. There is no dissection or aneurysm. Left carotid system: The common carotid and cervical internal carotid arteries are patent. There iscalcified atherosclerotic plaque at the carotid bifurcation, resulting in moderate ICA stenosis (50%) by NASCET criteria. There is no dissection or aneurysm. There is a right-dominant vertebral artery system. Right vertebral: There is calcified atherosclerotic plaque at the V3 segment but no significant stenosis. There is no dissection or aneurysm. Left vertebral: Nondominant and diffusely small in caliber. There is calcified atherosclerotic plaque at the origin but no significant stenosis. There is no dissection or aneurysm. Other: Soft tissues and bones: No evidence of lymphadenopathy or mass. The thyroid is unremarkable. Visualized lungs are blurred by motion artifact, without significant superimposed airspace opacity. Emphysematous changes are noted in the lung apices. Multilevel degenerative changes of the spine are noted, without acute osseous abnormality. A hemangioma is incidentally noted at T6. The C2 and C3 vertebral bodies are fused. CTA OF THE HEAD: Anterior circulation: Bilateral intracranial ICAs demonstrate atherosclerotic calcification, with narrowing of bilateral cavernous ICAs, mild on the right and moderate on the left. Bilateral MIGUEL and MCA branches are patent, with no proximal cutoff, though there is focal moderate to severe narrowingof the right A1 segment.. Left A1 segment is aplastic with supply to the left A2 segment via patentanterior communicating artery, a normal variant. Scattered mild irregularity of distal intracranialbranches is noted, but there is no other high-grade stenosis and no proximal cutoff. There is no aneurysm or vascular malformation. Posterior circulation: Bilateral intracranial vertebral arteries, the basilar artery, and bilateralsuperior cerebellar and posterior cerebral branches are patent. There is predominantly supplyto both senior patrol agent with hypoplastic/aplastic P1 segments on each side. There is mild/moderate narrowing of the right posterior communicating artery and proximal P2 segment. There is no high-grade stenosis,proximal cutoff, aneurysm, or vascular malformation. Veins: Major dural venous sinuses are patent. Other: Soft tissues and bones: No midline shift or effacement of the basal cisterns. No space-occupying hemorrhage. No territorial loss of bernard-white matter differentiation. There have been lens extractions bilaterally. There is minimal scattered mucosal thickening in the paranasal sinuses without fluid levels. Mastoids are clear. IMPRESSION: 1. No large vessel occlusion in the head or neck. 2. Moderate stenosis of bilateral cervical ICAs (approximately 50% by NASCET criteria on each side). 3. Moderate stenosis of the proximal right subclavian artery. 4. Moderate to severe stenosis of the right MIGUEL A1 segment. Note that the right A1 segment providessupply both A2 segments given aplastic left A1 segment. 5. Scattered additional mild to moderate intracranial stenoses as detailed above, but no cut off. Major findings 1 are in agreement with the preliminary report provided by [facility]. Preliminary report underestimated stenoses in the cervical ICAs and right M1 segment. WSN: [id number] Ordering Physician: Heather Augustin Dictated By: Shruthi Loja MD Dictated Date/Time: 10/14/22 12:01 p Reviewed By: Shruthi Loja MD Signed By: Shruthi Loja MD Signed Date/Time: 10/14/22 12:01 pm Transcribed By: FERMIN Transcribed Date/Time: 10/14/22 11:32 am * Exam Date Time Procedure Performing Provider Status 10/13/22 9:[address] Angio Head Hyperacute Stroke Amanda , Aniyah; Auth (Verified) Notes: (CT Angio Head Hyperacute Stroke) Reason For Exam: Stroke;Other: RESULT: CT Angio Head Hyperacute Stroke CT Angio Head Hyperacute Stroke, CT Angio Neck Hyperacute Stroke Hx of Present Illness: Pt. is from SNF. Pt. reports that after dinner she felt dizzy and unasteady on her feet. No other complaints, Fast score -0; Reason: Other:; Stroke; Clinical Question(s): Other:; Hematoma Aneurysm / Other: TECHNIQUE: CT angiogram of the head and [...] optimize exposure parameters. RADIATION DOSE PARAMETERS: CTDIvol Head: 47.58 mGy, DLP Head: 1732 mGy*cm. COMPARISON: Noncontrast CT head performed concurrently. FINDINGS: CTA OF THE NECK: Arch: There is variant anatomy of the aortic arch, with common origin of the brachiocephalic arteryand left common carotid artery, and direct origin of the left vertebral artery from the aorta. There is moderate atherosclerotic plaque of the aortic arch, but origins of the supra aortic vessels arepatent. Calcified plaque results in moderate narrowing of the proximal right subclavian artery. Right carotid system: The common carotid and cervical internal carotid arteries are patent. There is calcified atherosclerotic plaque at the carotid bifurcation, resulting in moderate ICA stenosis (50%) by NASCET criteria. There is no dissection or aneurysm. Left carotid system: The common carotid and cervical internal carotid arteries are patent. There iscalcified atherosclerotic plaque at the carotid bifurcation, resulting in moderate ICA stenosis (50%) by NASCET criteria. There is no dissection or aneurysm. There is a right-dominant vertebral artery system. Right vertebral: There is calcified atherosclerotic plaque at the V3 segment but no significant stenosis. There is no dissection or aneurysm. Left vertebral: Nondominant and diffusely small in caliber. There is calcified atherosclerotic plaque at the origin but no significant stenosis. There is no dissection or aneurysm. Other: Soft tissues and bones: No evidence of lymphadenopathy or mass. The thyroid is unremarkable. Visualized lungs are blurred by motion artifact, without significant superimposed airspace opacity. Emphysematous changes are noted in the lung apices. Multilevel degenerative changes of the spine are noted, without acute osseous abnormality. A hemangioma is incidentally noted at T6. The C2 and C3 vertebral bodies are fused. CTA OF THE HEAD: Anterior circulation: Bilateral intracranial ICAs demonstrate atherosclerotic calcification, with narrowing of bilateral cavernous ICAs, mild on the right and moderate on the left. Bilateral MIGUEL and MCA branches are patent, with no proximal cutoff, though there is focal moderate to severe narrowingof the right A1 segment.. Left A1 segment is aplastic with supply to the left A2 segment via patentanterior communicating artery, a normal variant. Scattered mild irregularity of distal intracranialbranches is noted, but there is no other high-grade stenosis and no proximal cutoff. There is no aneurysm or vascular malformation. Posterior circulation: Bilateral intracranial vertebral arteries, the basilar artery, and bilateralsuperior cerebellar and posterior cerebral branches are patent. There is predominantly supplyto both senior patrol agent with hypoplastic/aplastic P1 segments on each side. There is mild/moderate narrowing of the right posterior communicating artery and proximal P2 segment. There is no high-grade stenosis,proximal cutoff, aneurysm, or vascular malformation. Veins: Major dural venous sinuses are patent. Other: Soft tissues and bones: No midline shift or effacement of the basal cisterns. No space-occupying hemorrhage. No territorial loss of bernard-white matter differentiation. There have been lens extractions bilaterally. There is minimal scattered mucosal thickening in the paranasal sinuses without fluid levels. Mastoids are clear. IMPRESSION: 1. No large vessel occlusion in the head or neck. 2. Moderate stenosis of bilateral cervical ICAs (approximately 50% by NASCET criteria on each side). 3. Moderate stenosis of the proximal right subclavian artery. 4. Moderate to severe stenosis of the right MIGUEL A1 segment. Note that the right A1 segment providessupply both A2 segments given aplastic left A1 segment. 5. Scattered additional mild to moderate intracranial stenoses as detailed above, but no cut off. Major findings 1 are in agreement with the preliminary report provided by [facility]. Preliminary report underestimated stenoses in the cervical ICAs and right M1 segment. WSN: [id number] Ordering Physician: Heather Augustin Dictated By: Shruthi Loja MD Dictated Date/Time: 10/14/22 12:01 p Reviewed By: Shruthi Ljoa MD Signed By: Shruthi Loja MD Signed Date/Time: 10/14/22 12:01 pm Transcribed By: FERMIN Transcribed Date/Time: 10/14/22 11:32 am * Exam Date Time Procedure Performing Provider Status 10/13/22 9:[address] Head-Hyper Acute Stroke Radha Ptael; Auth (Verified) Notes: (CT Head-Hyper Acute Stroke) Reason For Exam: Neuro deficit, acute, stroke suspected;Other: RESULT: CT Head-Hyper Acute Stroke CT Head-Hyper Acute Stroke INDICATION: felt dizzy and unsteady on her feet. Neuro deficit, acute, stroke suspected; Clinical Question(s): Hematoma Infarction TECHNIQUE: Noncontrast head CT using axial technique and reconstructed in axial and coronal planes.Iterative reconstruction techniques are used to optimize dose and image quality. CTDIvol Head: 47.58 mGy, DLP Head: 1732 mGy*cm. COMPARISON: 09/18/2022. FINDINGS: Welder Fabricator view findings, lines and tubes: None. BRAIN AND EXTRA-AXIAL SPACES: No parenchymal hemorrhage, midline shift, or mass effect. Bernard-white matter differentiation is wellpreserved. No acute infarct. Negative insular ribbon sign. Atherosclerotic vascular calcification of the carotid arteries but negative hyperdense vessel sign. Moderate prominence of the ventricles and sulci consistent with parenchymal volume loss. 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 Additional mild low-density white matter changes. No subarachnoid hemorrhage. No subdural or epidural collection. CALVARIUM, SKULL BASE, AND SOFT TISSUES: No fractures or suspicious bony lesions. Mucosal thickening in the ethmoid and maxillary sinuses, unchanged. Otherwise the mastoid air cellsare clear. Status-post bilateral lens extraction. The extracranial soft tissues are unremarkable. IMPRESSION: No acute intracranial pathology. I have personally reviewed the images and I agree with this report. WSN: [id number] Ordering Physician: Heather Augustin Dictated By: Tutu Tobin DO Dictated Date/Time: 10/13/22 9:30 pm Reviewed By: John Liu MD Signed By: John Liu MD Signed Date/Time: 10/13/22 9:35 pm Transcribed By: FERMIN Transcribed Date/Time: 10/13/22 9:19 pm Vital Signs Most recent to oldest [Reference Range]: 1 2 3 Height 160 cm (10/17/22 7:36 AM) 160 cm (10/17/22 7:33 AM) 160 cm (10/16/22 4:14 PM) Weight 61.6 kg (10/14/22 1:04 PM) 62 kg (10/14/22 6:10 AM) 62 kg (10/14/22 2:15 AM) Oxygen Saturation [94-100 %] 97 % (10/17/22 7:33 AM) 98 % (10/17/22 4:00 AM) 98 % (10/17/22 12:00 AM) Pulse Rate [55-90 bpm] 66 bpm (10/17/22 8:12 AM) 60 bpm (10/17/22 7:33 AM) 60 bpm (10/17/22 4:00 AM) Body Mass Index [18.5-24.99 kg/m2] 24.06 kg/m2 (10/14/22 1:04 PM) 24.22 kg/m2 (10/14/22 6:10 AM) 24.22 kg/m2 (10/14/22 2:15 AM) Blood Pressure [90-138/55-84 mm Hg] 148/68mm Hg *H* (10/17/22 12:46 PM) 150/68mm Hg *H* (10/17/22 12:00 PM) 169/76mm Hg *H* (10/17/22 8:12 AM) Respiratory Rate [16-30 br/min] 16 br/min (10/17/22 8:11 AM) 17 br/min (10/17/22 7:33 AM) 18 br/min (10/17/22 4:00 AM) Temperature [96.8-100.4 DegF] 97.9 DegF (10/17/22 7:33 AM) 98.1 DegF (10/17/22 4:00 AM) 97.5 DegF (10/17/22 12:00 AM) Mode of Delivery (Oxygen) Room air (10/17/22 7:33 AM) Room air (10/17/22 4:00 AM) Room air (10/17/22 12:00 AM) Blood pressure sites Arm, left (10/17/22 7:36 AM) Arm, right (10/17/22 7:33 AM) Arm, left (10/17/22 4:00 AM) Temperature Route Oral (10/17/22 7:33 AM) Oral (10/17/22 4:00 AM) Oral (10/17/22 12:00 AM) Dry Weight 61.6 kg (10/14/22 1:04 PM) 62 kg (10/14/22 6:10 AM) 62 kg (10/14/22 2:15 AM) Social History Social History Type Response Tobacco Use: 4 or less cigar ettes(less than 1/4 pack)/day in last 30 days. Sex Admission evaluation note * Madonna Bhandari DO: MODIFY, PERFORM, MODIFY, MODIFY Event Display: Admission Note Authored Date: Patient: ??CHRISTOPH JOSHI ? Age:??77 Years?Sex:??Female?:??1945?? Chief Complaint/Reason for Consultation Pt. is from SNF. Pt. reports that after dinner she felt dizzy and unasteady on her feet. No other complaints, Fast score -0. History of Present Illness 77-year-old female with medical history sick sinus syndrome status post pacemaker in 2018, CAD, diabetes, hypertension, hyperlipidemia and continued tobacco abuse who is presenting from her assisted living facility for dizziness.?? States she was trying to stand up when she suddenly started feeling dizzy so sat back down. Describes dizziness as lightheadedness, denies vertigo or changes in vision.?? She has recurrent admissions for similar symptoms.? In the ED, patient was afebrile, hypertensive 151/130, satting well on room air.?? Labs show no leukocytosis, no anemia or thrombocytopenia, no electrolyte abnormalities, normal renal function, normal LFTs and bili.?? High-sensitivity troponin flat.?? UA showed positive nitrate, 3+ leukocyte and heavy bacteria.?? CT head nonacute. ?? On my exam, patient was resting comfortably no acute distress.?? Reports she was still feeling lightheaded, states feels more like??weakness that??is worse when she stands up. ??Denies vision changes, room spinning,??headache,??nausea,??tinnitus. Review of Systems General: Denies fevers, chills HEENT: Denies headache CV: Denies chest pain, palpitations Respiratory: Denies shortness of breath, cough, wheezing GI: Denies abdominal pain, nausea, vomiting, constipation, diarrhea Extremities: Denies lower extremity edema MSK: Denies joint pain, difficulty ambulating, myalgias Neuro: Reports lightheadedness. Denies weakness, numbness, paresthesias ?? All other systems were reviewed and are negative except for above Objective Measurements?? Height: 160 cm (10/13/22) Weight: 62 kg (10/13/22) Dry Weight: 62 kg (10/13/22) Body Mass Index: 24.22 kg/m2 (10/13/22) ? Vital Signs?? Temperature: 98.1 DegF (10/13/22 23:46:00) Temperature Route: Oral (10/13/22 23:46:00) Pulse Rate: 59 bpm (10/13/22 23:46:00) Respiratory Rate:??15 br/min??Low (10/13/22 23:46:00) Systolic Blood Pressure:??170 mm Hg??High (10/14/22 00:11:00) Diastolic Blood Pressure:??88 mm Hg??High (10/14/22 00:11:00) Blood pressure sites: Arm, right (10/14/22 00:11:00) Mean Arterial Pressure: 117 mm Hg (10/13/22 23:46:00) Pulse Pressure: 82 mm Hg (10/14/22 00:11:00) Oxygen Saturation: 96 % (10/13/22 23:46:00) Mode of Delivery (Oxygen): Room air (10/13/22 23:46:00) Early Warning Score: 0 (10/14/22 00:11:33) ? Physical Exam General:??No acute distress HEENT:??EOMI, PERRLA,??mucous membranes moist CV:??RRR. S1, S2. No murmurs, rubs, or gallops. No JVD Respiratory:??Non-labored respirations. CTA bilaterally.??Mild bibasilar rales. No wheezes??or rhonchi. GI:??Bowel sounds present. Soft, non-tender, non-distended. No hepatosplenomegaly :??No suprapubic tenderness MSK:??No lower extremity edema Neuro:??AAO x3. Moves all extremities spontaneously Psych:??Affect appropriate Skin:??No lesions, wounds, rashes ? Assessment/Plan 77-year-old female with medical history sick sinus syndrome status post pacemaker in 2018, CAD, diabetes, hypertension, hyperlipidemia and continued tobacco abuse who is presenting from her assisted living facility for dizziness.? #Presyncope Presenting with dizziness and lightheadedness that is worse with standing up Stroke workup negative UA consistent with UTI DDX: UTI, orthostasis, arrhythmia, uncontrolled HTN Plan: - Orthostatic vitals - Cardiac tele - Interrogate pacemaker in AM - Neuro checks Q4H ?? #UTI Denies urinary complaints but was recently??treated for E. coli UTI after presenting with dizziness Cannot rule out new infection given similar symptoms as prior presentation Plan: - Continue Ceftriaxone (listed as allergy but has tolerated) - f/u urine cultures ?? #Hypertension, uncontrolled From SNF,??has been receiving BP meds Plan: - continue amlodipine, lisinopril, metoprolol ER - Will monitor overnight on home meds and can consider uptitrating if remains hypertensive ?? Chronic, stable medical conditions: CAD: Continue aspirin, Plavix, rosuvastatin Gout: Continue allopurinol GERD: Continue famotidine, Maalox Hypothyroidism: Continue levothyroxine Type 2 diabetes mellitus: Continue Lantus 18U QHS (Tresiba non-formulary, 1:1 conversion with Lantus), SSI, POC TID, Hypoglycemia measures ? Quality Measures: DVT prophylaxis: Lovenox Diet: Cardiac, Diabetic Code status: FULL per [facility] ?? Patient seen and discussed with attending physician, ??Jorge Bhandari, DO Internal Medicine PGY-2 Pager #: [phone] Histories Allergies Allergies ?(Active and Proposed Allergies [...] Use: Never. ? Family History No family history??reported ? Medications Home Medications Acetaminophen (acetaminophen 325 [...] mg oral tablet)?8.6?Milligram?1?tab(s)?By Mouth?Daily at bedtime ? Results Recent Labs BLOOD COUNT & DIFF WBC 10.0 k/mm3 ()?? 10/13/2022 19:51 RBC 4.90 m/mm3 ()?? 10/13/2022 19:51 Hgb 14.4 Gm/dL ()?? 10/13/2022 19:51 Hct 45.6 % ()?? 10/13/2022 19:51 MCV 93.1 femtoliters ()?? 10/13/2022 19:51 MCH 29.4 pg ()?? 10/13/2022 19:51 MCHC 31.6 g/dL (Low)?? 10/13/2022 19:51 Platelet Count 236 k/mm3 ()?? 10/13/2022 19:51 RDW-SD 48.6 femtoliters (High)?? 10/13/2022 19:51 MPV 9.8 femtoliters ()?? 10/13/2022 19:51 Nucleated RBC (Automated) 0.0 #/100 WBC'S ()?? 10/13/2022 19:51 Abs. NRBC 0.0 k/mm3 ()?? 10/13/2022 19:51 Abs. Neut 7.0 k/mm3 ()?? 10/13/2022 19:51 Abs. Lymph 2.3 k/mm3 ()?? 10/13/2022 19:51 Abs. [place] 0.6 k/mm3 ()?? 10/13/2022 19:51 Abs. Eo 0.1 k/mm3 ()?? 10/13/2022 19:51 Abs. Baso 0.1 k/mm3 ()?? 10/13/2022 19:51 Neut % 69.3 % ()?? 10/13/2022 19:51 Lymph % 22.8 % ()?? 10/13/2022 19:51 [place] % 6.0 % ()?? 10/13/2022 19:51 Eos % 0.8 % ()?? 10/13/2022 19:51 Baso % 0.8 % ()?? 10/13/2022 19:51 Imm Gran 0.3 % ()?? 10/13/2022 19:51 Abs. Imm Gran 0.0 k/mm3 ()?? 10/13/2022 19:51 ?? CARDIAC High Sensitivity Troponin (HSTnT) 17 ng/L (High)?? 10/13/2022 21:53 ?? CHEM GENERAL Sodium 142 mmol/L ()?? 10/13/2022 19:51 Potassium 4.0 mmol/L ()?? 10/13/2022 19:51 Chloride 102 mmol/L ()?? 10/13/2022 19:51 Bicarbonate Level 27 mmol/L ()?? 10/13/2022 19:51 Anion Gap 13 ()?? 10/13/2022 19:51 Glucose Level 132 mg/dL (High)?? 10/13/2022 19:51 Glucose, POC 116 mg/dL (High)?? 10/13/2022 23:49 BUN 19 mg/dL ()?? 10/13/2022 19:51 Creatinine-Blood 0.8 mg/dL ()?? 10/13/2022 19:51 Estimated GFR Creatinine 77 ML/MIN/1.73 M2 ()?? 10/13/2022 19:51 Calcium 9.5 mg/dL ()?? 10/13/2022 19:51 Protein, Total 6.9 Gm/dL ()?? 10/13/2022 19:51 Albumin 4.4 Gm/dL ()?? 10/13/2022 19:51 AG Ratio 1.8 ()?? 10/13/2022 19:51 Alkaline Phosphatase 107 units/L (High)?? 10/13/2022 19:51 AST (SGOT) 18 units/L ()?? 10/13/2022 19:51 ALT (SGPT) 13 units/L ()?? 10/13/2022 19:51 Bilirubin, Total 0.3 mg/dL ()?? 10/13/2022 19:51 ?? UA/URINALYSIS Appear/Color, Urine YELLOW ()?? 10/13/2022 20:01 Specific [place], Urine 1.015 ()?? 10/13/2022 20:01 pH, Urine 5.5 ()?? 10/13/2022 20:01 Albumin, Urine TRACE (Abnormal)?? 10/13/2022 20:01 Glucose, Urine NEGATIVE ()?? 10/13/2022 20:01 Ketones, Urine NEGATIVE ()?? 10/13/2022 20:01 Bilirubin, Urine NEGATIVE ()?? 10/13/2022 20:01 Hemoglobin, Urine NEGATIVE ()?? 10/13/2022 20:01 Nitrite, Urine POSITIVE (Abnormal)?? 10/13/2022 20:01 Leukocyte, Urine 3+ (Abnormal)?? 10/13/2022 20:01 Urobilinogen NORMAL mg/dL ()?? 10/13/2022 20:01 WBC's, Urine 92 /HPF (High)?? 10/13/2022 20:01 RBC's, Urine 2 /HPF ()?? 10/13/2022 20:01 Bacteria HEAVY HPF (Abnormal)?? 10/13/2022 20:01 Squamous Epith 1 /HPF ()?? 10/13/2022 20:01 Mucus SLIGHT /LPF ()?? 10/13/2022 20:01 Hold Urine Culture Testing available 48 hours from time of collection. ()?? 10/13/2022 20:01 ?? URINE OTHER Est Creatinine Clearance 47.15 mL/min ()?? 10/13/2022 20:32 ? CBC, CBC w/Diff?? CBC?? Differential?? WBC: 10 k/mm3 (19:51) Abs. Neut: 7 k/mm3 (19:51) RBC: 4.9 m/mm3 (19:51) Abs. Lymph: 2.3 k/mm3 (19:51) Hct: 45.6 % (19:51) Abs. [place]: 0.6 k/mm3 (19:51) RDW-SD:??48.6 femtoliters??High (19:51) Abs. Eo: 0.1 k/mm3 (19:51) Nucleated RBC (Automated): 0 #/100 WBC'S (19:51) Abs. Baso: 0.1 k/mm3 (19:51) Abs. NRBC: 0 k/mm3 (19:51) Neut %: 69.3 % (19:51) ?? Lymph %: 22.8 % (19:51) ?? [place] %: 6 % (19:51) ?? Eos %: 0.8 % (19:51) ?? Baso %: 0.8 % (19:51) ?? Imm Gran: 0.3 % (19:51) ?? Abs. Imm Gran: 0 k/mm3 (19:51) ? Urinalysis Albumin, Urine: TRACE Abnormal (20:01) Appear/Color, Urine: YELLOW (20:01) Bacteria: HEAVY Abnormal (20:01) Bilirubin, Urine: NEGATIVE (20:01) Est Creatinine Clearance: 47.15 mL/min (20:32) Glucose, Urine: NEGATIVE (20:01) Hemoglobin, Urine: NEGATIVE (20:01) Hold Urine Culture: Testing available 48 hours from time of collection. (20:01) Ketones, Urine: NEGATIVE (20:01) Leukocyte, Urine: 3+ Abnormal (20:01) Mucus: SLIGHT (20:01) Nitrite, Urine: POSITIVE Abnormal (20:01) pH, Urine: 5.5 (20:01) RBC's, Urine: 2 /HPF (20:01) Specific [place], Urine: 1.015 (20:01) Squamous Epith: 1 /HPF (20:01) Urobilinogen: NORMAL (20:01) WBC's, Urine:??92 /HPF??High (20:01) ?? Microbiology ?? Urine Culture?? Collected?? Source: Urine Clean Catch Body Site: ?? Collected Dt/Tm: 10/13/2022 21:24 Last Updated Dt/Tm: 10/13/2022 21:24 COVID-19 (2019 Novel Coronavirus) PCR?? Collected?? Source: Nasal Body Site: Nose Collected Dt/Tm: 10/13/2022 23:37 Last Updated Dt/Tm: 10/13/2022 23:37 ? * Bassam Patel MD: PERFORM Event Display: Admission Note Authored Date: [id number] Attending Attestation:?? I have seen and evaluated this patient. ?? I have discussed the case and its management with the resident and agree with the findings and anh documented in the resident's note. ??I ??will continue to provide care to this patient till 7 AMof the admitting date. ? 77-year-old female with a past medical history of sick sinus syndrome s/p pacemaker, CAD, hypertension, hyperlipidemia, smoking came with a complaint of her dizziness. ??Patient denied any loss of consciousness. ??No history of any double vision, blurred vision, slurred speech or any focal weaknessof any part of the body. ??She denied any chest pain. ??Patient have a history of orthostatic hypotension before. ??CT of the head ruled out any acute abnormality. ??CT angiogram head and neck official report is pending. ??Lab work-up is nondiagnostic. ??Troponin are flat. ??If there could be a significant arrhythmia on the telemetry then will consider pacemaker interrogation. ??We will get a orthostatic blood pressure changes. ??Neuro check every 4 hours. ??No,. ??No sign or symptom of infectious etiology. EKG study * Event Display: EKG Authored Date: Cardiology * Event Display: Cardiac Rhythm Strips Authored Date: Hospital Progress note * Brittni Butler RN: VERIFY, PERFORM, SIGN Event Display: Progress Note Hospital Authored Date: [id number] Patient: CHRISTOPH JOSHI Age: 77 years Sex: Female : 1945 Associated Diagnoses: None Author: Brittni Butler RN Findings Problem Related to Alteration in Neurological : Alteration in Neurological Function/new 10/17/2022 9:00 EDT Alteration in Neuro status Related to Other: presyncope, dizziness Goals & Outcomes, Neurological Pt is safe with transfers & activities, Pt will be Neurologically stable, Pt will remain free from injury Interventions, Neurological Assess/monitor neurologic status, Assess/monitor VS per unit standards & prn, Call/Report variances in assessments to provider, Collaborate w/ provider to implement appropriate guidelines, Collaborate with Nutrition, Collaborate with provider re: medication regime, Document & Monitor O2 Sats; Administer O2 as ordered, Identify psychosocial issues related to diag nosis/illness, If no bowel movement in 3 days activate bowel regime, [place] alternate means of communication, Maintain HOB at least 30 deg, Maintain normothermia, report temp >101.5 F, Maintainpatient safety if unsteady gait, Monitor Fluid & Electrolytes, Serum Osmolarity, Monitor for headaches, nausea, vomiting, Monitor speech fluency, aphasia, word finding difficulty, Physical assessment per unit standards, Provide emotional support to Pt/caregiver, Teach pt/caregiver discharge plan & follow up care, Teach pt/caregiver on plan of care, treatment, s/s & meds, Teach pt/caregiver on use of pain scale BH Goals/Interventions, Neurological Yes Neurological, Problem Start 10/14/2022 15:00 Reviewed plan with, Neurological Patient, Children Patient Progression, Neurological Pt progressing according to plan . Nursing Data Cardiac Data. : Cardiac Data. 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 Gastrointestinal Data. : Gastrointestinal Data. 10/17/2022 9:00 EDT GI WNL . Genitourinary Data. : Genitourinary Data. 10/17/2022 9:00 EDT WNL . Musculoskeletal Data. : Musculoskeletal Data. 10/17/2022 9:00 EDT Musculoskeletal WNL . Neurological Data. : Neurological Data. 10/17/2022 9:00 EDT Neurological Symptoms Alteration in level of consciousness Level of Consciousness Confusion Orientated to person, place, time Person Hallucinations None Facial Symmetry Intact Characteristics of Speech Clear and normal Pupil description, left Regular Pupil description, right Regular Pupil reaction, left Brisk Pupil reaction, right Brisk Strength LUE 5-Active movement against gravity & full resistance Strength RUE 5-Active movement against gravity & full resistance Strength LLE 5-Active movement against gravity & full resistance Strength RLE 5-Active movement against gravity & full resistance Tone LUE Normal Tone RUE Normal Tone LLE Normal Tone RLE Normal Sensation LUE Intact Sensation RUE Intact Sensation LLE Intact Sensation RLE Intact Movement LUE To command Movement RUE To command Movement LLE To command Movement RLE To command Gait Steady Tremors None Neuro WNL except Headache None Memory Unable to assess . Respiratory/Pulmonary Data. : Respiratory/Pulmonary Data. 10/17/2022 9:00 EDT Respiratory WNL . Vital Signs : VITAL SIGNS SECTION 10/17/2022 8:13 EDT Early Warning Score 2.00 10/17/2022 8:13 EDT Early Warning Score 2.00 10/17/2022 8:13 EDT Early Warning Score 2.00 10/17/2022 8:13 EDT Early Warning Score 2.00 10/17/2022 8:12 EDT Pulse Rate 66 bpm Systolic Blood Pressure 169 mm Hg H Diastolic Blood Pressure 76 mm Hg . Evaluation Patient alert, oriented to self and hospital mostly, remains confused at times but easily redirectable, able to make her needs known and follows commands. OOB with pretty steady gait. She denies any headache or dizziness. BP better controlled after med adjustment, pending discharge.. * Soraida Handy RN: PERFORM, SIGN, VERIFY Event Display: Progress Note Hospital Authored Date: Patient: CHRISTOPH JOSHI Age: 77 years Sex: Female : 1945 Associated Diagnoses: None Author: Soraida Handy RN Findings Problem Related to Alteration in Neurological : Alteration in Neurological Function/new 10/16/2022 20:00 EDT Alteration in Neuro status Related to Other: presyncope, dizziness Goals & Outcomes, Neurological Pt is safe with transfers & activities, Pt will be Neurologically stable, Pt will remain free from injury Interventions, Neurological Assess/monitor for abnormal posturing, Assess/monitor for gaze pattern/extraocular movements, Assess/monitor for increased Intracranial Pressure, Assess/monitor neurologicstatus, Assess/monitor VS per unit standards & prn, Call/Report variances in assessments to provider, Monitor Fluid & Electrolytes, Serum Osmolarity, Monitor for headaches, nausea, vomiting, Monitor speech fluency, aphasia, word finding difficulty, Physical assessment per unit standards, Provide emotional support to Pt/caregiver Goals/Interventions, Neurological Yes Neurological, Problem Start 10/14/2022 15:00 Reviewed plan with, Neurological Patient Patient Progression, Neurological Pt progressing according to plan . Nursing Data Neurological Data. : Neurological Data. 10/16/2022 20:00 EDT Tongue Disposition Midline Neurological Symptoms Alteration in level of consciousness Level of Consciousness Confusion Orientated to person, place, time Person Hallucinations None Facial Symmetry Intact Characteristics of Speech Clear and normal Swallowing Difficulty None Pupil description, left Regular Pupil description, right Regular Pupil reaction, left Brisk Pupil reaction, right Brisk Pupil Size, Left 3 mm Pupil Size, Right 3 mm Strength LUE 5-Active movement against gravity & full resistance Strength RUE 5-Active movement against gravity & full resistance Strength LLE 5-Active movement against gravity & full resistance Strength RLE 5-Active movement against gravity & full resistance Tone LUE Normal Tone RUE Normal Tone LLE Normal Tone RLE Normal Sensation LUE Intact Sensation RUE Intact Sensation LLE Intact Sensation RLE Intact Movement LUE Spontaneous, To command Movement RUE Spontaneous, To command Movement LLE Spontaneous, To command Movement RLE Spontaneous, To command Gait Steady Tremors None Response Eye Opening Spontaneously Motor Response-Adult Obeys commands Verbal Response-Adult Disoriented and converses Sheree Coma Score 14 Neuro WNL except Eyes and Movements Conjugate gaze: Move in same direction at same speed Memory Short term loss Swallow - Neuro Normal . Evaluation Pt is A/O to self, with clear speech, and able to follow commands. Pt is ELY [place]OSH[place]. Pt denies VELASCO, NV, NT,DZ, and pain. Pt HALL with 5/5 strength and is a stand by with ambulation. Pt can be impulsive and already in BR when staff reach room for bed alarm. Pt is paced on tele, no CP, positive pulses, and no edema noted. Lung sounds CTA, on RA, no s/s of respiratory distress. Bowel sounds present in all 4 quadrants with last BM on 10/16. abd soft/ nontender. Pt is using the BR to void. Pt currently sleeping in bed.. Discharge Information Rehabilitation Discharge : Rehab Discharge Index 10/16/2022 12:09 EDT Comments on treatment indicated No functional mobiltiy deficits identified at time of initial evaluation. Any mobility llimitations seem to be a direct result of her orthostatic hypotension. No further skilled PT needed in this setting or following d/c. Please consult us again if Full chart review completed Yes Other findings Other findings * Jeanette LORA, Basil: PERFORM, MODIFY Event Display: Progress Note Hospital Authored Date: [id number] Patient: ??CHRISTOPH JOSHI ? Age:??77 Years?Sex:??Female?:??1945?? Subjective Patient is seen and examined at the bedside Denies any chest pain or shortness of breath She has some confusion at baseline BP was on the higher side, though she has orthostatic hypotension Review of Systems All systems reviewed, negative except for as mentioned above.?? Objective Vital Signs?? Temperature: 97.9 DegF (10/16/22 16:14:00) Temperature Route: Temporal (10/16/22 16:14:00) Pulse Rate: 57 bpm (10/16/22 16:14:00) Pulse Rate, Lyin bpm (10/16/22 12:30:00) Systolic Blood Pressure, Lyin mm Hg (10/16/22 12:30:00) Diastolic Blood Pressure, Lyin mm Hg (10/16/22 12:30:00) Pulse Rate, Sittin bpm (10/16/22 12:30:00) Systolic Blood Pressure, Sittin mm Hg (10/16/22 12:30:00) Diastolic Blood Pressure, Sittin mm Hg (10/16/22 12:30:00) Pulse Rate, Standin bpm (10/16/22 12:30:00) Systolic Blood Pressure, Stand[place] mm Hg (10/16/22 12:30:00) Diastolic Blood Pressure, Stand[place] mm Hg (10/16/22 12:30:00) Respiratory Rate: 18 br/min (10/16/22 16:14:00) Systolic Blood Pressure:??164 mm Hg??High (10/16/22 16:30:00) Diastolic Blood Pressure: 78 mm Hg (10/16/22 16:30:00) Blood pressure sites: Arm, left (10/16/22 16:14:00) Mean Arterial Pressure: 116 mm Hg (10/16/22 16:14:00) Pulse Pressure: 101 mm Hg (10/16/22 16:14:00) Oxygen Saturation: 96 % (10/16/22 16:14:00) Mode of Delivery (Oxygen): Room air (10/16/22 16:14:00) Early Warning Score: 2 (10/16/22 16:38:32) ? Physical Exam ?? Constitutional: Alert, in no acute distress. Mental Status: Oriented to self, knows she is in the hospital, not sure about name of hospital, no oriented to date, other person. Head: Normocephalic. Eyes: Pupils are equal, round and reactive to light.?? Ear, Nose and Throat: Oropharynx clear, mucous membranes moist.?? Neck: Supple, Full range of motion. Respiratory: Clear to auscultation and percussion. No wheezing, rales or rhonchi. Cardiovascular: S1 S2 regular. No murmurs, rubs or gallops. Gastrointestinal: Abdomen soft, non-tender, non-distended. Normal bowel sounds.?? Neurologic: Cranial nerves II-XII grossly intact. No focal neurological deficits?? Skin: No rashes or lesions. No petechiae or purpura. _ Inpatient Medications Medications (34) Active SCHEDULED: (20) Allopurinol 100 mg Tablet (allopurinol 100 mg oral tablet) ??100 mg, By Mouth, Daily Amlodipine 5 mg Tablet (amLODIPine 5 mg oral tablet) ??5 mg, By Mouth, Daily Aspirin 81 mg EC Tablet (aspirin 81 mg oral delayed release tablet) ??81 mg, By Mouth, Daily Ceftriaxone 1 Gm Inj (Ceftriaxone Inj) ??1 Gm, IVPB, Every 24 hours Clopidogrel 75 mg Tablet (Plavix 75 mg oral tablet) ??75 mg, By Mouth, Daily Donepezil 5 mg Tablet (donepezil 5 mg oral tablet) ??5 mg, By Mouth, Daily at bedtime Enoxaparin 40 mg Inj (Enoxaparin Inj) ??40 mg 0.4 mL, Subcutaneous Injection, Daily Famotidine 20 mg Tablet (famotidine 20 mg oral tablet) ??40 mg, By Mouth, Daily Gabapentin 100 mg Capsule (gabapentin 100 mg oral capsule) ??100 mg, By Mouth, 2 times a day Insulin Glargine 100 units/mL Inj (Lantus Inj) ??18 units 0.18 mL, Subcutaneous Injection, Daily atbedtime Insulin Lispro 100 units/mL Inj (3mL) (Insulin LISPRO Sliding Scale) ??2-10 units, Subcutaneous Injection, 3 times a day before meals Levothyroxine 100 mcg Tablet (levothyroxine 0.1 mg oral tablet) ??100 mcg, By Mouth, Daily Lisinopril 20 mg Tablet (lisinopril 20 mg oral tablet) ??20 mg, By Mouth, Once Lisinopril 20 mg Tablet (lisinopril 20 mg oral tablet) ??40 mg, By Mouth, Daily Metoprolol 50 mg XL Tablet (metoprolol 50 mg oral tablet, extended release) ??50 mg, By Mouth, Daily NaCl 0.9% Flush 3ml (NaCL 0.9% Flush) ??3 mL, IV Push, Every 8 hours Nicotine 7 mg / 24 hour Patch (Nicotine Topical) ??7 mg, Topically, Daily Remove Patch (Remove ??Patch) ??1 each, Topically, Daily Rosuvastatin 20 mg Tablet (rosuvastatin 20 mg oral tablet) ??20 mg, By Mouth, Daily Senna Tablet (Senna 8.6 mg oral tablet) ??8.6 mg 1 tablet, By Mouth, Daily at bedtime CONTINUOUS: (0) PRN: (14) Acetaminophen 325 mg Tablet (Acetaminophen Tablet) ??650 mg, By Mouth, Every 4 hours Al hydroxide/Mg hydroxide/simethicone 200 mg-200 mg-20 mg/5 mL Susp UD (Maalox Plus Liquid) ??15 mL, By Mouth, 4 times a day Dextromethorphan-Guaifenesin 20 mg-200 mg/10 mL Liqu UD (Robitussin DM Liquid) ??10 mL, By Mouth, Every 4 hours Dextrose Inj Syringe (Dextrose 50% Inj Syringe (25Gm)) ??12.5 Gm, IV Push Slowly, Every 20 minutes Dextrose Inj Syringe (Dextrose 50% Inj Syringe (25Gm)) ??25 Gm, IV Push Slowly, Every 15 minutes Glucagon 1 mg Inj (Glucagon Inj) ??1 mg, Intramuscular, Once Glucose 40% Gel (15 Gm) (Glucose Gel) ??15 Gm, By Mouth, Every 20 minutes Glucose 40% Gel (15 Gm) (Glucose Gel) ??30 Gm, By Mouth, Every 20 minutes Magnesium Hydroxide 8% Susp UD (MOM Liquid) ??30 mL, By Mouth, Daily Melatonin 3 mg Tablet [...] Chew, 3 times a day ? Results Abnormal Labs ?? CHEM GENERAL ??Glucose, POC ??121 mg/dL (High) ??10/16/2022 16:31 ? Note: Critical results are displayed in red. ? Assessment/Plan Diagnoses Dizzinesses ??(R42) UTI symptoms ??(R39.9) ?77-year-old female with medical history sick sinus syndrome status post pacemaker in 2018, CAD, diabetes, hypertension, hyperlipidemia and continued tobacco abuse who is presented from her assistedliving facility for dizziness.? Presyncope Presenting with dizziness and lightheadedness that is worse with standing up CT head-- negative. CT angio head and neck--??Moderate stenosis of bilateral cervical ICAs ( 50%). Moderate stenosis ofthe proximal right subclavian artery. Moderate to severe stenosis of the right MIGUEL A1 segment. Notethat the right A1 segment provides supply both A2 segments given aplastic left A1 segment. Scattered additional mild to moderate intracranial stenoses as detailed above, but no cut off. UA consistent with UTI Patient is orthostatics positive???will give some IV fluid Will Interrogate pacemaker tomorrow. Neuro checks Q4H ?? UTI was recently??treated for E. coli UTI after presenting with dizziness Cannot rule out new infection given similar symptoms as prior presentation Continue Ceftriaxone (listed as allergy but has tolerated) Urine cultures results reviewed ?? Hypertension, uncontrolled From SNF,??has been receiving BP meds Continue amlodipine, lisinopril, metoprolol ER As BP is on the higher side today, will increase dose of lisinopril to home dose of 40 mg daily Monitor BP and adjust meds as needed. ?? Chronic, stable medical conditions: CAD: Continue aspirin, Plavix, rosuvastatin Gout: Continue allopurinol GERD: Continue famotidine, Maalox Hypothyroidism: Continue levothyroxine Type 2 diabetes mellitus: Continue Lantus 18U QHS (Tresiba non-formulary, 1:1 conversion with Lantus), SSI, POC TID, Hypoglycemia measures ? DVT prophylaxis: Lovenox Diet: Cardiac, Diabetic Code status: FULL per MOLST OMN:??Ongoing orthostatics, will give IV fluid, meds adjustment. ??If stable likely discharge in 24-48 hours to??custodial. Family update:?Called and updated patient's daughter Ms. Fonseca over the phone ? (This document has been dictated using [email or web address] dictation software. Please do not hesitate to contactthe author for clarification of any unintentional errors should it be needed.) Note * Brittni Butler RN: PERFORM Event Display: Discharge/Transfer Note Hospital Authored Date: [id number] Nursing Discharge Note Entered On: 10/17/2022 15:08 EDT Performed On: 10/17/2022 15:07 EDT by Brittni Butler RN Nursing Discharge Note 2 Discharge Time : 10/17/2022 15:07 EDT Discharge Level of Care at Discharge : Home/Custodial/Foster Care Patient Left Unit Via : Wheelchair Patient Accompanied Off Unit with : Significant other, Other: daughter DC Instructions Provided & Signed by Pt : Yes Patient Understands D/C Instructions : Yes Verbalized Understanding of D/C Plan By : Family, Patient Patient Instructions Discharge Signed : Yes Did Pt have Specialty Bed or Wound Vac : No Brittni Butler RN - 10/17/2022 15:07 EDT * Jeanette LORA, Basil: PERFORM Event Display: Discharge/Transfer Note Hospital Authored Date: [id number] Patient: ??CHRISTOPH JOSHI ? Age:??77 Years?Sex:??Female?:??1945?? Patient Information Discharge Location: D5A Primary Care Physician: Ashley Morales MD Admit Date/Time: 10/13/22 23:35 Discharge Disposition Discharge Disposition: Home: No Services Discharge Diagnosis Dizzinesses (R42) Orthostatic hypotension (I95.1) UTI (urinary tract infection) (N39.0) HTN (hypertension) Hypothyroidism ?? _ Discharge Medications Acetaminophen (acetaminophen 325 [...] 8.6 mg oral tablet)?8.6?Milligram?1?tab(s)?By Mouth?Daily at bedtime Medications Started None Medications Discontinued None Doses Changed None Hospital Course 77-year-old female with medical history sick sinus syndrome status post pacemaker in 2018, CAD, diabetes, hypertension, hyperlipidemia and continued tobacco abuse who is presented from her assisted living facility for dizziness.? Presyncope UTI Orthostatic hypotension. Presented with dizziness and lightheadedness that is worse with standing up. Now symptoms improved. CT head-- negative. CT angio head and neck--??Moderate stenosis of bilateral cervical ICAs ( 50%). Moderate stenosis ofthe proximal right subclavian artery. Moderate to severe stenosis of the right MIGUEL A1 segment. Notethat the right A1 segment provides supply both A2 segments given aplastic left A1 segment. Scattered additional mild to moderate intracranial stenoses as detailed above, but no cut off. Pacemaker interrogation done-- no changes found. UA consistent with UTI, treated. Patient is orthostatics positive???treated with iv fluid. No further dizziness.?? Follow up with PCP as outpatient. ?? UTI She was recently??treated for E. coli UTI after presented with dizziness?? Ucx with E. coli Completed 5 days of Ceftriaxone. ?? Hypertension, uncontrolled Continue home meds??? Amlodipine 5 mg daily Lisinopril 40 mg daily Metoprolol??XL 50 mg daily Monitor BP as outpatient and adjust medications as needed. ? Chronic, stable medical conditions: CAD: Continue aspirin, Plavix, rosuvastatin Gout: Continue allopurinol GERD: Continue famotidine, Maalox Hypothyroidism: Continue levothyroxine Type 2 diabetes mellitus: Continue home meds-- Trulicity. ? Objective Measurements?? Height: 160 cm (10/17/22) Weight: 61.6 kg (10/14/22) Dry Weight: 61.6 kg (10/14/22) Body Mass Index: 24.06 kg/m2 (10/14/22) ? Vital Signs?? Temperature: 97.9 DegF (10/17/22 07:33:00) Temperature Route: Oral (10/17/22 07:33:00) Pulse Rate: 66 bpm (10/17/22 08:12:00) Respiratory Rate: 16 br/min (10/17/22 08:11:00) Systolic Blood Pressure:??148 mm Hg??High (10/17/22 12:46:00) Diastolic Blood Pressure: 68 mm Hg (10/17/22 12:46:00) Blood pressure sites: Arm, left (10/17/22 07:36:00) Mean Arterial Pressure: 107 mm Hg (10/17/22 07:36:00) Pulse Pressure: 93 mm Hg (10/17/22 07:36:00) Oxygen Saturation: 97 % (10/17/22 07:33:00) Mode of Delivery (Oxygen): Room air (10/17/22 07:33:00) Early Warning Score: 2 (10/17/22 12:46:46) ? . Physical Exam Constitutional: Alert, in no acute distress. Mental Status: Oriented to self, knows she is in the hospital, not sure about name of hospital, no oriented to date, other person. Head: Normocephalic. Eyes: Pupils are equal, round and reactive to light.?? Ear, Nose and Throat: Oropharynx clear, mucous membranes moist.?? Neck: Supple, Full range of motion. Respiratory: Clear to auscultation and percussion. No wheezing, rales or rhonchi. Cardiovascular: S1 S2 regular. No murmurs, rubs or gallops. Gastrointestinal: Abdomen soft, non-tender, non-distended. Normal bowel sounds.?? Neurologic: Cranial nerves II-XII grossly intact. No focal neurological deficits?? Skin: No rashes or lesions. No petechiae or purpura. Pending Results Urine Culture ordered on 10/13/2022 Patient Education Titles Preventing Falls at Home?? Orthostatic Low Blood Pressure (Hypotension)?? Urinary Tract Infections in Women?? Urethritis in Women?? Understanding Dizziness, Balance Problems, and Fainting?? Dizziness (Vertigo) and Balance Problems: Staying Safe?? Follow-Up Appointments Added Follow Up ?Time Frame ?Comments Ashley Morales MD?1 week Patient Instructions During this hospitalization you were??treated for: Presyncope Urinary tract infection Orthostatic hypotension. ? You will go home with the following NEW medications: None ? The following medications were CHANGED : None ? The following medications were?? STOPPED: ??None [...] 1-2 weeks. Please make appointment with the clinic. ?? Reasons to immediately return to the emergency room or call 911: - You pass out or faint. - You have any other concerns that you think require emergency management. Post Discharge Care Diet: Cardiac diet Code Status: ?? Full Resuscitation Discharge ?10/17/22 13:39:00 EDT Discharge Prescriptions ?None, ??10/17/22 13:39:00 EDT Home Health Face to Face ^[facility] Results Discharge Labs BLOOD COUNT & DIFF WBC 7.4 k/mm3 ()?? 10/15/2022 02:57 RBC 4.19 m/mm3 (Low)?? 10/15/2022 02:57 Hgb 12.7 Gm/dL ()?? 10/15/2022 02:57 Hct 39.1 % ()?? 10/15/2022 02:57 MCV 93.3 femtoliters ()?? 10/15/2022 02:57 MCH 30.3 pg ()?? 10/15/2022 02:57 MCHC 32.5 g/dL (Low)?? 10/15/2022 02:57 Platelet Count 206 k/mm3 ()?? 10/15/2022 02:57 RDW-SD 47.3 femtoliters (High)?? 10/15/2022 02:57 MPV 10.1 femtoliters ()?? 10/15/2022 02:57 Nucleated RBC (Automated) 0.0 #/100 WBC'S ()?? 10/15/2022 02:57 Abs. NRBC 0.0 k/mm3 ()?? 10/15/2022 02:57 Abs. Neut 7.0 k/mm3 ()?? 10/13/2022 19:51 Abs. Lymph 2.3 k/mm3 ()?? 10/13/2022 19:51 Abs. [place] 0.6 k/mm3 ()?? 10/13/2022 19:51 Abs. Eo 0.1 k/mm3 ()?? 10/13/2022 19:51 Abs. Baso 0.1 k/mm3 ()?? 10/13/2022 19:51 Neut % 69.3 % ()?? 10/13/2022 19:51 Lymph % 22.8 % ()?? 10/13/2022 19:51 [place] % 6.0 % ()?? 10/13/2022 19:51 Eos % 0.8 % ()?? 10/13/2022 19:51 Baso % 0.8 % ()?? 10/13/2022 19:51 Imm Gran 0.3 % ()?? 10/13/2022 19:51 Abs. Imm Gran 0.0 k/mm3 ()?? 10/13/2022 19:51 ?? CARDIAC High Sensitivity Troponin (HSTnT) 18 ng/L (High)?? 10/14/2022 06:17 ? CHEM GENERAL Sodium 142 mmol/L ()?? 10/15/2022 03:00 Potassium 3.9 mmol/L ()?? 10/15/2022 03:00 Chloride 108 mmol/L (High)?? 10/15/2022 03:00 Bicarbonate Level 24 mmol/L ()?? 10/15/2022 03:00 Anion Gap 10 ()?? 10/15/2022 03:00 Glucose Level 152 mg/dL (High)?? 10/15/2022 03:00 Glucose, POC 98 mg/dL ()?? 10/17/2022 11:44 BUN 21 mg/dL ()?? 10/15/2022 03:00 Creatinine-Blood 0.7 mg/dL ()?? 10/15/2022 03:00 Estimated GFR Creatinine 85 ML/MIN/1.73 M2 ()?? 10/15/2022 03:00 Calcium 8.7 mg/dL ()?? 10/15/2022 03:00 Magnesium 2.0 mg/dL ()?? 10/15/2022 03:00 Protein, Total 6.9 Gm/dL ()?? 10/13/2022 19:51 Albumin 4.4 Gm/dL ()?? 10/13/2022 19:51 AG Ratio 1.8 ()?? 10/13/2022 19:51 Alkaline Phosphatase 107 units/L (High)?? 10/13/2022 19:51 AST (SGOT) 18 units/L ()?? 10/13/2022 19:51 ALT (SGPT) 13 units/L ()?? 10/13/2022 19:51 Bilirubin, Total 0.3 mg/dL ()?? 10/13/2022 19:51 ? HEME OTHER Hold Lavender Top SPECIMEN DISCARDED AFTER 24 HOURS. ()?? 10/14/2022 06:17 ? MISC. CHEMISTRY Hold Gel Top SPECIMEN DISCARDED AFTER 1 WEEK ()?? 10/14/2022 06:17 ? UA/URINALYSIS Appear/Color, Urine YELLOW ()?? 10/13/2022 20:01 Specific [place], Urine 1.015 ()?? 10/13/2022 20:01 pH, Urine 5.5 ()?? 10/13/2022 20:01 Albumin, Urine TRACE (Abnormal)?? 10/13/2022 20:01 Glucose, Urine NEGATIVE ()?? 10/13/2022 20:01 Ketones, Urine NEGATIVE ()?? 10/13/2022 20:01 Bilirubin, Urine NEGATIVE ()?? 10/13/2022 20:01 Hemoglobin, Urine NEGATIVE ()?? 10/13/2022 20:01 Nitrite, Urine POSITIVE (Abnormal)?? 10/13/2022 20:01 Leukocyte, Urine 3+ (Abnormal)?? 10/13/2022 20:01 Urobilinogen NORMAL mg/dL ()?? 10/13/2022 20:01 WBC's, Urine 92 /HPF (High)?? 10/13/2022 20:01 RBC's, Urine 2 /HPF ()?? 10/13/2022 20:01 Bacteria HEAVY HPF (Abnormal)?? 10/13/2022 20:01 Squamous Epith 1 /HPF ()?? 10/13/2022 20:01 Mucus SLIGHT /LPF ()?? 10/13/2022 20:01 Hold Urine Culture Testing available 48 hours from time of collection. ()?? 10/13/2022 20:01 ? URINE OTHER Est Creatinine Clearance 53.89 mL/min ()?? 10/15/2022 04:25 ? VIROLOGY COVID-19 by RT-PCR NEGATIVE ()?? 10/14/2022 03:04 COVID-19 PCR Specimen Source NASAL ()?? 10/13/2022 23:51 COVID-19 PCR Result NEGATIVE ()?? 10/13/2022 23:51 ? Microbiology ?? Urine Culture?? Collected?? Source: Urine Clean Catch Body Site: ?? Collected Dt/Tm: 10/13/2022 21:24 Last Updated Dt/Tm: 10/13/2022 21:24 COVID-19 (2019 Novel Coronavirus) PCR?? Completed?? Source: Nasal Body Site: Nose Collected Dt/Tm: 10/13/2022 23:37 Last Updated Dt/Tm: 10/14/2022 07:50 ? Imaging(s) ?CT Head-Hyper Acute Stroke ?? 10/13/2022 21:08??by John Liu MD ? No acute intracranial pathology. ?CT Angio Neck Hyperacute Stroke ?? 10/13/2022 21:08??by Shruthi Loja MD ? 1. No large vessel occlusion in the head or neck. 2. Moderate stenosis of bilateral cervical ICAs (approximately 50% by NASCET criteria on each side). 3. Moderate stenosis of the proximal right subclavian artery. 4. Moderate to severe stenosis of the right MIGUEL A1 segment. Note that the right A1 segment providessupply both A2 segments given aplastic left A1 segment. 5. Scattered additional mild to moderate intracranial stenoses as detailed above, but no cut off. ?CT Angio Head Hyperacute Stroke ?? 10/13/2022 21:08??by Shruthi Loja MD ? 1. No large vessel occlusion in the head or neck. 2. Moderate stenosis of bilateral cervical ICAs (approximately 50% by NASCET criteria on each side). 3. Moderate stenosis of the proximal right subclavian artery. 4. Moderate to severe stenosis of the right IMGUEL A1 segment. Note that the right A1 segment providessupply both A2 segments given aplastic left A1 segment. 5. Scattered additional mild to moderate intracranial stenoses as detailed above, but no cut off. ? 35 minutes spent on discharge * Brittni Butler RN: PERFORM Event Display: Patient Education/Instruction Authored Date: [id number] Inpatient Adult Discharge Instructions [address] [address] Name: CHRISTOPH JOSHI : 1945 Visit: 10/13/2022 23:35:00 Current Date: 10/17/2022 13:44 Account: [id number] Inpatient Adult Discharge Instructions We would like [...] and their families. Surveys are administered by [employer] ?? If further treatment with your primary care physician or another doctor is recommended, it is important for you to keep the appointment. Call your primary care physician or return to the Emergency Department immediately if your condition worsens, fails to improve, or new symptoms develop. If you need to find a doctor, you can call [facility] for a referral at [phone] or toll free at [phone] or log in to [email or web address].. ?? You can view and manage your care through the patient portal or by using a health care rosalio of your choosing. [employer] is a website that allows you to securely view your medical information including your hospital discharge summary, office visit summaries, medications and follow-up visits. You can also request appointments, renew medications, and request access to your medical information using a health care rosalio of your choosing, or just ask a question. You can enroll at [email or web address] or register during your next office visit. You have been discharged from [facility], Patient Care Unit: D5A. If you have any questions regarding these instructions after you leave, please call us and we will be happy to assist you. [facility] Your Care Team Attending Physician Basil Reid MD Discharging Providers Basil Reid MD Reason for Your Visit Pt. is from SNF. Pt. reports that after dinner she felt dizzy and unasteady on her feet. No other complaints, Fast score -0. Your Diagnosis General medical UTI (urinary tract infection) Tests Performed Below is a partial list of the tests performed during your hospitalization. You may have had other tests and procedures not included in this list. Please discuss all test results with your provider. Basic Metabolic Panel CBC CBC w/ Differential Comprehensive Metabolic Panel COVID-19 (2019 Novel Coronavirus) PCR COVID-19 (NOVEL CORONAVIRUS), PCR GLUCOSE POC High??Sensitivity??Troponin T HOLD GEL TUBE HOLD LAVENDER TUBE Mg Level Troponin T, High Sensitivity Urinalysis w/hold for Urine Culture Urine Culture?-- Results Pending -- CT Angio Head Hyperacute Stroke CT Angio Neck Hyperacute Stroke CT Head-Hyper Acute Stroke You will be contacted within 72 hours with your results. Primary Care Provider Ashley Morales MD Advance Directive . Discharge Vitals Temperature: 97.9 DegF Height: 160 cm Pulse Rate: 66 bpm Weight: 61.6 kg Respiratory Rate: 16 br/min Body Mass Index: 24.06 kg/m2 Systolic Blood Pressure:??148 mm Hg??High Body surface area: 1.65 Diastolic Blood Pressure: 68 mm Hg ?? Oxygen Saturation: 97 % ?? Studies Pending All tests and labs ordered during this hospital stay have been completed unless listed below. Please discuss all pending results with your provider listed above in these instructions. ?? Urine Culture What to do next Instructions From Your Doctor During this hospitalization you were??treated for: Presyncope Urinary tract infection Orthostatic hypotension. ? You will go home with the following NEW medications: None ? The following medications were CHANGED : None ? The following medications were?? STOPPED: ??None [...] 1-2 weeks. Please make appointment with the clinic. ?? Reasons to immediately return to the emergency room or call 911: - You pass out or faint. - You have any other concerns that you think require emergency management. Discharge Orders Diet:??Cardiac diet Code Status:?? Full Resuscitation You Need to Schedule the Following Appointments Follow Up with??Ashley Morales MD When:??Within 1 week Where: [address] [place] [id number]- Discharge Medications CHRISTOPH JOSHI :1945 Visit Date:10/13/2022 Medications: Please continue your medications until treatment is completed or stopped by your provider. Medications not listed below should be discontinued. Discuss any questions related to medications with your provider. What How Much When Instructions Next Dose Unchanged Acetaminophen (acetaminophen 325 mg oral tablet) 2 tab(s) Oral Every 4 hours as needed for as needed for pain as needed Unchanged Al Hydroxide/ Mg Hydroxide/ Simethicone (Mintox) 30 Milliliter Oral Every 4 hours as needed for upset stomach as needed Unchanged Allopurinol (allopurinol 100 mg oral tablet) 1 tab(s) Oral Daily 10/18 9AM Unchanged Amlodipine (amLODIPine 5 mg oral tablet) 1 tab(s) Oral Daily 10/18 9AM Unchanged Aspirin (aspirin 81 mg oral delayed release tablet) 1 tab(s) Oral Daily 10/18 9AM Unchanged Cholecalciferol (Vitamin D3 5000 intl units oral tablet) 1 tab(s) Oral Daily 10/18 9AM Unchanged Clopidogrel (Plavix 75 mg oral tablet) 1 tab(s) Oral Daily 10/18 9AM Unchanged Cyanocobalamin (Vitamin B-12 1000 mcg oral tablet) 1 tab(s) Oral Daily 10/18 9AM Unchanged Docusate (docusate sodium 100 mg oral capsule) 1 capsule Oral Twice a day 10/17 9PM Unchanged Donepezil (donepezil 5 mg oral tablet) 1 tab(s) Oral Daily at Bedtime 10/17 9PM Unchanged Famotidine (famotidine 40 mg oral tablet) 1 tab(s) Oral Daily 10/18 9AM Unchanged Gabapentin (gabapentin 100 mg oral capsule) 1 capsule Oral Twice a day 10/17 9PM Unchanged insulin degludec (Tresiba FlexTouch 200 units/ mL subcutaneous solution) 18 unit(s) Subcutaneous Injection Daily at Bedtime rotate injection sites ?? 10/17 9PM Unchanged Levothyroxine (levothyroxine 0.1 mg oral tablet) 1 tab(s) Oral Daily 10/18 9AM Unchanged Lisinopril (lisinopril 40 mg oral tablet) 1 tab(s) Oral Daily 10/18 9AM Unchanged Loperamide (loperamide 2 mg oral capsule) 1 capsule Oral Daily as needed for Loose Stool do not exc not to exceed 8 capsules, or 16 mg, in 24 hours ?? as needed Unchanged Metoprolol (Metoprolol Succinate ER 25 mg oral tablet, extended release) 2 tab(s) Oral Daily 10/18 9AM Unchanged Milk of Magnesia (MOM Liquid) 30 Milliliter Oral Daily as needed for as needed for constipation as needed Unchanged Miscellaneous Rx (BD PEN NEEDL MIS [id number] [place]) Unchanged Polyethylene Glycol 3350 (polyethylene glycol 3350 oral powder for reconstitution) 17 gram Oral Twice a day as needed for Constipation dissolve in water or juice before taking ?? as needed Unchanged Pyridoxine (Vitamin B6) 100 Milligram Daily 10/18 9AM Unchanged Rosuvastatin (rosuvastatin 20 mg oral capsule) 1 capsule Oral Daily 10/18 9AM Unchanged Senna (Senna 8.6 mg oral tablet) 1 tab(s) Oral Daily at Bedtime 10/17 9PM Test Results Below is a partial list of the most recent Laboratory test results done prior to this discharge. You may have had other tests and procedures not included in this list. Please discuss all test resultswith your provider. Est Creatinine Clearance - 53.89 mL/min (10/15/2022) Basic Metabolic Panel (10/15/2022) ???Sodium - 142 mmol/L???Potassium - 3.9 mmol/L???Chloride - 108 mmol/L???Bicarbonate Level - 24 mmol/L???Anion Gap - 10???Glucose Level - 152 mg/dL???BUN - 21 mg/dL???Creatinine-Blood - 0.7 mg/dL???Estimated GFR Creatinine - 85 ML/MIN/1.73 M2???Calcium - 8.7 mg/dL CBC (10/15/2022) ???WBC - 7.4 k/mm3???RBC - 4.19 m/mm3???Hgb - 12.7 Gm/dL???Hct - 39.1 %???MCV - 93.3 femtoliters???MCH - 30.3 pg???MCHC - 32.5 g/dL???Platelet Count - 206 k/mm3???RDW-SD - 47.3 femtoliters???MPV - 10.1 femtoliters???Nucleated RBC (Automated) - 0.0 #/100 WBC'S???Abs. NRBC - 0.0 k/mm3 CBC w/ Differential (10/13/2022) ???WBC - 10.0 k/mm3???RBC - 4.90 m/mm3???Hgb - 14.4 Gm/dL???Hct - 45.6 %???MCV - 93.1 femtoliters???MCH - 29.4 pg???MCHC - 31.6 g/dL???Platelet Count - 236 k/mm3???RDW-SD - 48.6 femtoliters???MPV - 9.8 femtoliters???Nucleated RBC (Automated) - 0.0 #/100 WBC'S???Abs. NRBC - 0.0 k/mm3???Abs. Neut - 7.0 k/mm3???Abs. Lymph - 2.3 k/mm3???Abs. [place] - 0.6 k/mm3???Abs. Eo - 0.1 k/mm3???Abs. Baso - 0.1 k/mm3???Neut % - 69.3 %???Lymph % - 22.8 %???[place] % - 6.0 %???Eos % - 0.8 %???Baso % - 0.8 %???Imm Gran - 0.3 %???Abs. Imm Gran - 0.0 k/mm3 Comprehensive Metabolic Panel (10/13/2022) ???Sodium - 142 mmol/L???Potassium - 4.0 mmol/L???Chloride - 102 mmol/L???Bicarbonate Level - 27 mmol/L???Anion Gap - 13???Glucose Level - 132 mg/dL???BUN - 19 mg/dL???Creatinine-Blood - 0.8 mg/dL???Estimated GFR Creatinine - 77 ML/MIN/1.73 M2???Calcium - 9.5 mg/dL???Protein, Total - 6.9 Gm/dL???Albumin - 4.4 Gm/dL???AG Ratio - 1.8???Alkaline Phosphatase - 107 units/L???AST (SGOT) - 18 units/L???ALT (SGPT) - 13 units/L???Bilirubin, Total - 0.3 mg/dL COVID-19 (2019 Novel Coronavirus) PCR (10/13/2022) ???COVID-19 PCR Specimen Source - NASAL???COVID-19 PCR Result - NEGATIVE COVID-19 (NOVEL CORONAVIRUS), PCR (10/14/2022) ???COVID-19 by RT-PCR - NEGATIVE GLUCOSE POC (10/17/2022) ???Glucose, POC - 98 mg/dL High??Sensitivity??Troponin T (10/14/2022) ???High Sensitivity Troponin (HSTnT) - 18 ng/L HOLD GEL TUBE (10/14/2022) ???Hold Gel Top - SPECIMEN DISCARDED AFTER 1 WEEK HOLD LAVENDER TUBE (10/14/2022) ???Hold Lavender Top - SPECIMEN DISCARDED AFTER 24 HOURS. Mg Level (10/15/2022) ???Magnesium - 2.0 mg/dL Troponin T, High Sensitivity (10/13/2022) ???High Sensitivity Troponin (HSTnT) - 17 ng/L Urinalysis w/hold for Urine Culture (10/13/2022) ???Appear/Color, Urine - YELLOW???Specific [place], Urine - 1.015???pH, Urine - 5.5???Albumin, Urine - TRACE???Glucose, Urine - NEGATIVE???Ketones, Urine - NEGATIVE???Bilirubin, Urine - NEGATIVE???Hemoglobin, Urine - NEGATIVE???Nitrite, Urine - POSITIVE???Leukocyte, Urine - 3+???Urobilinogen - NORMAL???WBC's, Urine - 92 /HPF???RBC's, Urine - 2 /HPF???Bacteria - HEAVY???Squamous Epith - 1 /HPF???Mucus - SLIGHT???Hold Urine Culture - [...] Educational Leaflet Providered with your Discharge Instructions. Preventing Falls at Home?? Orthostatic Low Blood Pressure (Hypotension)?? Urinary Tract Infections in Women?? Urethritis in Women?? Understanding Dizziness, Balance Problems, and Fainting?? Dizziness (Vertigo) and Balance Problems: Staying Safe?? Valuables and Belongings I fully understand and agree that [facility] accepts no responsibility for all [...] patient Date for Pt to Sign Valuables/Belongings: 10/14/22 13:47:00 ?? Other Discharge Information ? Pulmonary Rehab Status?? Pulmonary Rehab Discharge Status?? Respiratory Rate: 16 br/min ? Common Emergency Awareness Tips IS [...] are strongly encouraged to quit. Please call [facility] at [phone] or [phone] ([phone]) or log in to [email or web address] for referrals to smoking cessation programs. ?? 144 Suicide & Crisis Lifeline is available 25/12 if you or someone you know needs to find a reason to keep living. By calling 503 you'll be connected to a skilled, trained counselor at a crisis center in your area. INPATIENT DISCHARGE INSTRUCTIONS SIGNATURE PAGE CHRISTOPH JOSHI Location:[facility] Registration Date and Time:10/13/2022 23:35 EDT Primary Care Physician: Ashley Morales MD, Attending Physician: Basil Reid MD, Jaron JOSHI CHRISTOPH DEL ANGEL, have received the above patient education materials/instructions and have verbalized understanding. If ambulance or transport services are being used I further acknowledge being given a choice of service. ?? If you need to contact me, please call me at this number: . Patient/Accounting File Clerk Name: Patient/Accounting File Clerk Signature: Relationship to Patient: Witness Name/Signature: Date: * Basil Reid MD: PERFORM Event Display: Patient Education Leaflets Authored Date: [id number] Preventing Falls at Home ?? [id number] Preventing Falls at Home A person can [...] ??? Use a reach stick to grab [id number] items. ??? Install grab bars wherever needed to pull yourself up. ??? Arrange items that you use often. This will make them easier to find or reach. ??? Keep track of where your pets are so you don't trip over them when you are walking. ?? Last Reviewed Date: 2022 ?? [id number] [employer] All rights reserved. This information is not intended as a substitute for professional medical care. Always follow your healthcare professional's instructions. ?? * Jeanette LORA, Basil: PERFORM Event Display: Patient Education Leaflets Authored Date: [id number] Orthostatic Low Blood Pressure (Hypotension) ?? [id number] Orthostatic Low Blood Pressure (Hypotension) A blood [...] breathing ?? Last Reviewed Date: 2021 ?? [id number] [employer] All rights reserved. This information is not intended as a substitute for professional medical care. Always follow your healthcare professional's instructions. ?? * Basil Reid MD: PERFORM Event Display: Patient Education Leaflets Authored Date: [id number] Urinary Tract Infections in Women ?? [id number] Urinary Tract Infections in Women Urinary tract infections (UTIs) are most often caused by bacteria. These bacteria enter the urinarytract. The bacteria may come from inside the body. Or they may travel from the skin outside the rectum or vagina into the urethra. Female anatomy makes it easy for bacteria from the bowel to enter a woman???s urinary tract. This is the most common source of UTI. This means women develop UTIs more often than men. Pain in or around the urinary tract is a common UTI symptom. Most UTIs are treated with antibiotics. These kill the bacteria. The length of time you need to take them depends on the type of infection. It may be as short as 3 days. If you have repeated UTIs, you may need a low-dose antibiotic for several months. Take antibiotics exactly as directed. Don???t stop taking them until all of the medicine is gone. If you stop taking the antibiotic too soon, the infection may not go away. You may also develop a resistance to the antibiotic. This can make it muchharder to treat in the future. Gender words are used here to talk about anatomy and health risk. Please use this information in a way that works best for you and your provider as you talk about your care. Home care The lifestyle changes below will help get rid of your UTI. They may also help prevent future UTIs: ??? Drink plenty of fluids. This includes water, juice, or other caffeine-free drinks. Fluids help flush bacteria out of your body. ??? Empty your bladder. Always empty your bladder when you feel the urge to pee. And always pee before going to sleep. Urine that stays in your bladder can lead to infection. Try to pee before and after sex as well. ??? Practice good personal hygiene. Wipe yourself from front to back after using the toilet. This helps keep bacteria from getting into the urethra. ???Use condoms during sex. These help prevent UTIs caused by sexually transmitted bacteria. Also don'tuse spermicides during sex. These can increase the risk for UTIs. Choose other forms of control instead. For women who tend to get UTIs after sex, a low dose of a preventive antibiotic may be used. Be sure to discuss this choice with your healthcare provider. ??? Try holistic supplements, such as cranberry tablets and D-mannose. These may help prevent UTIs. ??? Try topical vaginal estrogen.You can use this to help prevent UTIs if you have gone through menopause. ?? Follow-up care Follow up with your healthcare provider as directed. They may test to make sure the infection has cleared. If needed, more treatment may be started. ?? When to get medical advice Call your healthcare provider right away if any of the following occur: ??? Frequent urination ??? Pain or burning when passing urine ??? Fever of 100.4??F (38??C) or higher, or as directed by your healthcare provider ??? Urine looks dark, cloudy, or reddish in color. This may mean that blood is inthe urine. ??? Urine smells bad ??? Feeling pain even when not urinating ??? Tiredness ??? Pain in the belly (abdomen) area below the bellybutton, or in the back or side, below the ribs ??? Nausea orvomiting ??? Have a strong urge to urinate, but only a small amount of urine is passed ??? Uncomfortable pressure above the pubic bone ??? Feeling confused or very tired (in older adults) ?? Last Reviewed Date: 2022 ?? [id number] [employer] All rights reserved. This information is not intended as a substitute for professional medical care. Always follow your healthcare professional's instructions. ?? Radiology * Omid , ANGELIKA S: TRANSCCATRINA Loja MD, Shruthi Delatorre: VERIFY Event Display: Result: Authored Date: CT Angio Head Hyperacute Stroke, CT Angio Neck Hyperacute Stroke Hx of Present Illness: Pt. is from SNF. Pt. reports that after dinner she felt dizzy and unasteady on her feet. No other complaints, Fast score -0; Reason: Other:; Stroke; Clinical Question(s): Other:; Hematoma Aneurysm / Other: TECHNIQUE: CT angiogram of the head and [...] optimize exposure parameters. RADIATION DOSE PARAMETERS: CTDIvol Head: 47.58 mGy, DLP Head: 1732 mGy*cm. COMPARISON: Noncontrast CT head performed concurrently. FINDINGS: CTA OF THE NECK: Arch: There is variant anatomy of the aortic arch, with common origin of the brachiocephalic arteryand left common carotid artery, and direct origin of the left vertebral artery from the aorta. There is moderate atherosclerotic plaque of the aortic arch, but origins of the supra aortic vessels arepatent. Calcified plaque results in moderate narrowing of the proximal right subclavian artery. Right carotid system: The common carotid and cervical internal carotid arteries are patent. There is calcified atherosclerotic plaque at the carotid bifurcation, resulting in moderate ICA stenosis (50%) by NASCET criteria. There is no dissection or aneurysm. Left carotid system: The common carotid and cervical internal carotid arteries are patent. There iscalcified atherosclerotic plaque at the carotid bifurcation, resulting in moderate ICA stenosis (50%) by NASCET criteria. There is no dissection or aneurysm. There is a right-dominant vertebral artery system. Right vertebral: There is calcified atherosclerotic plaque at the V3 segment but no significant stenosis. There is no dissection or aneurysm. Left vertebral: Nondominant and diffusely small in caliber. There is calcified atherosclerotic plaque at the origin but no significant stenosis. There is no dissection or aneurysm. Other: Soft tissues and bones: No evidence of lymphadenopathy or mass. The thyroid is unremarkable. Visualized lungs are blurred by motion artifact, without significant superimposed airspace opacity. Emphysematous changes are noted in the lung apices. Multilevel degenerative changes of the spine are noted, without acute osseous abnormality. A hemangioma is incidentally noted at T6. The C2 and C3 vertebral bodies are fused. CTA OF THE HEAD: Anterior circulation: Bilateral intracranial ICAs demonstrate atherosclerotic calcification, with narrowing of bilateral cavernous ICAs, mild on the right and moderate on the left. Bilateral MIGUEL and MCA branches are patent, with no proximal cutoff, though there is focal moderate to severe narrowingof the right A1 segment.. Left A1 segment is aplastic with supply to the left A2 segment via patentanterior communicating artery, a normal variant. Scattered mild irregularity of distal intracranialbranches is noted, but there is no other high-grade stenosis and no proximal cutoff. There is no aneurysm or vascular malformation. Posterior circulation: Bilateral intracranial vertebral arteries, the basilar artery, and bilateralsuperior cerebellar and posterior cerebral branches are patent. There is predominantly supplyto both senior patrol agent with hypoplastic/aplastic P1 segments on each side. There is mild/moderate narrowing of the right posterior communicating artery and proximal P2 segment. There is no high-grade stenosis,proximal cutoff, aneurysm, or vascular malformation. Veins: Major dural venous sinuses are patent. Other: Soft tissues and bones: No midline shift or effacement of the basal cisterns. No space-occupying hemorrhage. No territorial loss of bernard-white matter differentiation. There have been lens extractions bilaterally. There is minimal scattered mucosal thickening in the paranasal sinuses without fluid levels. Mastoids are clear. IMPRESSION: 1. No large vessel occlusion in the head or neck. 2. Moderate stenosis of bilateral cervical ICAs (approximately 50% by NASCET criteria on each side). 3. Moderate stenosis of the proximal right subclavian artery. 4. Moderate to severe stenosis of the right MIGUEL A1 segment. Note that the right A1 segment providessupply both A2 segments given aplastic left A1 segment. 5. Scattered additional mild to moderate intracranial stenoses as detailed above, but no cut off. Major findings 1 are in agreement with the preliminary report provided by [facility]. Preliminary report underestimated stenoses in the cervical ICAs and right M1 segment. WSN: [id number] Ordering Physician: Heather Augustin Dictated By: Shruthi Loja MD Dictated Date/Time: 10/14/22 12:01 p Reviewed By: Shruthi Loja MD Signed By: Shruthi Loja MD Signed Date/Time: 10/14/22 12:01 pm Transcribed By: FERMIN Transcribed Date/Time: 10/14/22 11:32 am * ANGELIKA Anne S: BUDDYRICORNELIUS Loja MD, Shruthi Delatorre: VERIFY Event Display: Result: Authored Date: CT Angio Head Hyperacute Stroke, CT Angio Neck Hyperacute Stroke Hx of Present Illness: Pt. is from SNF. Pt. reports that after dinner she felt dizzy and unasteady on her feet. No other complaints, Fast score -0; Reason: Other:; Stroke; Clinical Question(s): Other:; Hematoma Aneurysm / Other: TECHNIQUE: CT angiogram of the head and [...] optimize exposure parameters. RADIATION DOSE PARAMETERS: CTDIvol Head: 47.58 mGy, DLP Head: 1732 mGy*cm. COMPARISON: Noncontrast CT head performed concurrently. FINDINGS: CTA OF THE NECK: Arch: There is variant anatomy of the aortic arch, with common origin of the brachiocephalic arteryand left common carotid artery, and direct origin of the left vertebral artery from the aorta. There is moderate atherosclerotic plaque of the aortic arch, but origins of the supra aortic vessels arepatent. Calcified plaque results in moderate narrowing of the proximal right subclavian artery. Right carotid system: The common carotid and cervical internal carotid arteries are patent. There is calcified atherosclerotic plaque at the carotid bifurcation, resulting in moderate ICA stenosis (50%) by NASCET criteria. There is no dissection or aneurysm. Left carotid system: The common carotid and cervical internal carotid arteries are patent. There iscalcified atherosclerotic plaque at the carotid bifurcation, resulting in moderate ICA stenosis (50%) by NASCET criteria. There is no dissection or aneurysm. There is a right-dominant vertebral artery system. Right vertebral: There is calcified atherosclerotic plaque at the V3 segment but no significant stenosis. There is no dissection or aneurysm. Left vertebral: Nondominant and diffusely small in caliber. There is calcified atherosclerotic plaque at the origin but no significant stenosis. There is no dissection or aneurysm. Other: Soft tissues and bones: No evidence of lymphadenopathy or mass. The thyroid is unremarkable. Visualized lungs are blurred by motion artifact, without significant superimposed airspace opacity. Emphysematous changes are noted in the lung apices. Multilevel degenerative changes of the spine are noted, without acute osseous abnormality. A hemangioma is incidentally noted at T6. The C2 and C3 vertebral bodies are fused. CTA OF THE HEAD: Anterior circulation: Bilateral intracranial ICAs demonstrate atherosclerotic calcification, with narrowing of bilateral cavernous ICAs, mild on the right and moderate on the left. Bilateral MIGUEL and MCA branches are patent, with no proximal cutoff, though there is focal moderate to severe narrowingof the right A1 segment.. Left A1 segment is aplastic with supply to the left A2 segment via patentanterior communicating artery, a normal variant. Scattered mild irregularity of distal intracranialbranches is noted, but there is no other high-grade stenosis and no proximal cutoff. There is no aneurysm or vascular malformation. Posterior circulation: Bilateral intracranial vertebral arteries, the basilar artery, and bilateralsuperior cerebellar and posterior cerebral branches are patent. There is predominantly supplyto both senior patrol agent with hypoplastic/aplastic P1 segments on each side. There is mild/moderate narrowing of the right posterior communicating artery and proximal P2 segment. There is no high-grade stenosis,proximal cutoff, aneurysm, or vascular malformation. Veins: Major dural venous sinuses are patent. Other: Soft tissues and bones: No midline shift or effacement of the basal cisterns. No space-occupying hemorrhage. No territorial loss of bernard-white matter differentiation. There have been lens extractions bilaterally. There is minimal scattered mucosal thickening in the paranasal sinuses without fluid levels. Mastoids are clear. IMPRESSION: 1. No large vessel occlusion in the head or neck. 2. Moderate stenosis of bilateral cervical ICAs (approximately 50% by NASCET criteria on each side). 3. Moderate stenosis of the proximal right subclavian artery. 4. Moderate to severe stenosis of the right MIGUEL A1 segment. Note that the right A1 segment providessupply both A2 segments given aplastic left A1 segment. 5. Scattered additional mild to moderate intracranial stenoses as detailed above, but no cut off. Major findings 1 are in agreement with the preliminary report provided by [facility]. Preliminary report underestimated stenoses in the cervical ICAs and right M1 segment. WSN: [id number] Ordering Physician: Heather Augustin Dictated By: Shruthi Loja MD Dictated Date/Time: 10/14/22 12:01 p Reviewed By: Shruthi Loja MD Signed By: Shruthi Loja MD Signed Date/Time: 10/14/22 12:01 pm Transcribed By: FERMIN Transcribed Date/Time: 10/14/22 11:32 am * [facility] , CIS S: TRANSCRIBE John Liu MD: VERIFY Tutu Tobin DO: SIGN Event Display: Result: Authored Date: [id number] CT Head-Hyper Acute Stroke INDICATION: felt dizzy and unsteady on her feet. Neuro deficit, acute, stroke suspected; Clinical Question(s): Hematoma Infarction TECHNIQUE: Noncontrast head CT using axial technique and reconstructed in axial and coronal planes.Iterative reconstruction techniques are used to optimize dose and image quality. CTDIvol Head: 47.58 mGy, DLP Head: 1732 mGy*cm. COMPARISON: 09/18/2022. FINDINGS: Welder Fabricator view findings, lines and tubes: None. BRAIN AND EXTRA-AXIAL SPACES: No parenchymal hemorrhage, midline shift, or mass effect. Bernard-white matter differentiation is wellpreserved. No acute infarct. Negative insular ribbon sign. Atherosclerotic vascular calcification of the carotid arteries but negative hyperdense vessel sign. Moderate prominence of the ventricles and sulci consistent with parenchymal volume loss. 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 Additional mild low-density white matter changes. No subarachnoid hemorrhage. No subdural or epidural collection. CALVARIUM, SKULL BASE, AND SOFT TISSUES: No fractures or suspicious bony lesions. Mucosal thickening in the ethmoid and maxillary sinuses, unchanged. Otherwise the mastoid air cellsare clear. Status-post bilateral lens extraction. The extracranial soft tissues are unremarkable. IMPRESSION: No acute intracranial pathology. I have personally reviewed the images and I agree with this report. WSN: [id number] Ordering Physician: Heather Augustin Dictated By: Tutu Tobin DO Dictated Date/Time: 10/13/22 9:30 pm Reviewed By: John Liu MD Signed By: John Liu MD Signed Date/Time: 10/13/22 9:35 pm Transcribed By: FERMIN Transcribed Date/Time: 10/13/22 9:19 pm Patient Care team information Care Team Personnel Name: Ashley Morales MD Position: [facility] Physician (General Medicine) Member Role: PCP Address: Address: [address] [place] [address]- Name: Soraida Handy RN Position: [facility] RN Member Role: Primary Care Nurse Name: Thom Kuo RN Position: [facility] RN Member Role: Primary Care Nurse Name: Ileana Khan RN Position: [facility] RN Member Role: Primary Care Nurse Name: Becky Quezada RN Position: [facility] SN RN Member Role: Primary Care Nurse Name: Chelita Bailey LPN Position: [facility] RN Member Role: Primary Care Nurse Name: Frank LANDAVERDE Attending Position: [facility] ED Medicine MD Name: Deirdre Brown RN Position: [facility] ED RN W/OE and Tasks Member Role: Patient Care Provider Name: Jocelyn Sol RN Position: [facility] ED RN W/OE and Tasks Member Role: Patient Care Provider Name: Heather Augustin MD Position: [facility] Resident Member Role: Chart Review Address: Address: [address] [place] [address] [place] [address]- [place] Name: Brynn Reid Position: [facility] ED TA [facility] Member Role: Machine Load Clerk
[2023-07-21] MEDS: iohexoL 350 MG/ML 100 ML INFUS..BTL 85 ML IV (00:26)
[2023-07-21] MEDS: Morphine Sulfate 2 MG/ML CARTRIDGE IVPUSH (01:47)
[2023-07-21] MEDS: ondansetron HCL 4 MG/2 ML VIAL IVPUSH (01:47)
[2023-07-21] MEDS: Doxycycline Monohydrate 100 MG CAPSULE PO (01:47)
--- NOTE | 2023-07-21 02:14 | PC.NURSE ---
called daughter to let her know patient was ready to be picked up, no answer
--- NOTE | 2023-07-21 04:56 | PC.NURSE ---
Called pts daughter as pt is discharge and ready to return home. No answer.
[2023-07-21 06:27] VITALS: BP 118/57; PULSE 60; RESP 12; TEMP 36.6; O2SAT 96
--- NOTE | 2023-07-21 06:28 | PC.NURSE ---
Cell phone provided to pt to call family. Pt was able to leave a voice message. Pending call back or family to pharmacy picking tech pt as pt has been discharged. VSS. No apparent distress noted. Food and liquids provided. Pt tolerated well.
--- NOTE | 2023-07-21 07:21 | PC.NURSE ---
call placed to daughter, no answer. left voicemail
--- NOTE | 2023-07-21 07:27 | PC.NURSE ---
another call placed to pt daughter message left.
--- NOTE | 2023-07-21 09:13 | PC.NURSE ---
attempted to reach [facility] for potential transport, unsuccessful at this time.
== END 2023-07-21 11:09 | disposition home or self-care (01) ==
PROVIDERS: Physician Assistant Medical; Emergency Provider Internal Medicine; PCP Internal Medicine
DX: L03.314 Cellulitis of groin (principal); R10.2 Pelvic and perineal pain; Z79.899 Other long term (current) drug therapy
CPT/HCPCS: 36415; 72193; 80048; 85025; 96374; 96375; 99284; J2270; J2405; Q9967

== ENCOUNTER 2024-02-13 10:42 | Outpatient (REF) | payer MEDICARE, MEDICAID, SELFPAY | END 2024-02-13 10:43 | disposition home or self-care (01) | LOC: HO.HAP 10:42 | PROVIDERS: Visit Provider Internal Medicine | DX: Z46.1 Encounter for fitting and adjustment of hearing aid (principal); H90.3 Sensorineural hearing loss, bilateral | CPT/HCPCS: V5266 ==

== ENCOUNTER 2024-02-16 21:31 | Emergency (ER) | payer MEDICARE, MEDICAID, SELFPAY ==
--- NOTE | ~2024-02-16 | CT_ITS ---
EXAMINATION: CT ABDOMEN AND PELVIS WITHOUT CONTRAST CLINICAL INFORMATION: Flank pain, change in urinary habits COMPARISON: 06/26/2022 TECHNIQUE: Multidetector volumetric imaging was performed from the superior aspect of the liver through the pubic symphysis. Sagittal and coronal reformatted images were obtained on the technologist's workstation. This CT examination was performed using dose optimization techniques as appropriate, variously including the following: *Automated exposure control *Adjustment of mA and/or kV according to patient size (this includes techniques or standardized protocols for targeted exams where dose is matched to indication/reason for exam; i.e. extremities or head) *Use of iterative reconstruction technique DLP: 562 mGy-cm FINDINGS: LUNG BASES: Minimal dependent atelectasis. Coronary artery calcifications are present. LIVER, GALLBLADDER, AND BILIARY TREE: The liver is normal in size, shape, and attenuation. No focal hepatic lesion or biliary ductal dilatation is identified on this noncontrast exam. Gallbladder is grossly unremarkable. PANCREAS: Unremarkable. SPLEEN: Unremarkable. ADRENAL GLANDS: Somewhat thickened appearance bilaterally, unchanged from prior. KIDNEYS AND URETERS: No hydronephrosis or obstructing calculus identified bilaterally. Numerous scattered small calcifications again noted throughout the kidneys. There is a suspected small hyperdense cyst in the right upper pole. BLADDER: Mildly distended and grossly unremarkable. GASTROINTESTINAL TRACT: No evidence of bowel obstruction. There is colonic diverticulosis without convincing diverticulitis. Large amount of stool in the distal sigmoid colon is similar to prior. No free fluid or free air is seen. ABDOMINAL WALL: No significant hernia is appreciated. LYMPH NODES: Normal. VASCULAR: There is atherosclerotic calcification along the aorta and iliac arteries. There is focal dilation of the infrarenal aorta to approximately 4.1 cm. PELVIC VISCERA: Patient is status post hysterectomy. OSSEOUS STRUCTURES: Degenerative changes are noted in the spine. CT/CT abdomen pelvis wo IV con IMPRESSION: 1. No acute findings identified in the abdomen/pelvis. No hydronephrosis or obstructing calculus identified. Multiple bilateral renal calculi redemonstrated. Of note, there is significantly limited in evaluation for pyelonephritis without intravenous contrast. 2. Large amount of stool in the distal sigmoid colon, similar to prior. 3. Focal dilation of the infrarenal aorta to approximately 4.1 cm. Based on published guidelines in J Am Tunde Radiol 2013; 10(10):789-794 and J Vasc Surg. 2018; 67:2-77, the recommendation for an abdominal aortic aneurysm with diameter 4.0-4.4 cm is vascular consultation and subsequent follow-up every 12 months. Electronically signed by: Matt Villanueva MD 02/17/2024 12:32 AM EDT
[2024-02-16 21:57] VITALS: BP 135/70; BP 190/70; PULSE 60; PULSE 62; RESP 16; TEMP 36.8; O2SAT 100; O2SAT 96; BMI 26.2
[2024-02-16 22:25] LABS: MANUAL DIFF FLAG NO
[2024-02-16 22:26] LABS: Basophils Absolute Auto 0.1 X10*3/uL (0.0-0.2); Basophils Percent Auto 0.9 % (0-2); Eosinophils Absolute Auto 0.2 X10*3/uL (0.0-0.4); Eosinophils Percent Auto 2.2 % (0-4); Hematocrit 41.2 % (37.0-47.0); Hemoglobin 13.1 g/dl (12.0-16.0); Imm Gran Abs Auto 0.01 X10*3/uL (0.00-0.03); Imm Gran Pct Auto 0.1 % (0.0-0.4); Lymphocytes Absolute Auto 2.2 X10*3/uL (1.2-4.9); Lymphocytes Percent Auto 27.6 % (20-40); Mean Corpuscular HGB Conc 31.8 g/dl (31.0-35.0); Mean Corpuscular Hemoglobin 28.2 pg (27.0-33.0); Mean Corpuscular Volume 88.6 fL (80.0-98.0); Monocytes Absolute Auto 0.5 X10*3/uL (0.1-1.2); Monocytes Percent Auto 5.7 % (2-11); Neutrophils Absolute Auto 5.2 x10*3/uL (2.0-8.3); Neutrophils Percent Auto 63.5 % (45-73); Platelet Count 215 X10*3/uL (160-400); Red Blood Count 4.65 X10*6/uL (4.20-5.50); White Blood Count 8.1 X10*3/uL (4.8-10.8)
--- OUTSIDE RECORDS SUMMARY | 2024-02-16 22:36 | XMS_ITS | Continuity of Care Document ---
Author Organization [facility] ter Address [address] [place] [id number]- Care Team Providers Care Manager Protein Name Role Phone Ashley Morales MD Primary Care Physician Encounter [facility] Date(s): 08/10/23 - 08/10/[address] [address]- Encounter Diagnosis Orthostatic dizziness(Final) - 08/10/23 Vision changes(Final) - 08/10/23 Discharge Disposition: A-D/C Home Attending Physician: Philip Salgdao MD Admitting Physician: Philip Salgado MD Referring Physician: Not on Staff, Referring MD Allergies, Adverse Reactions, Alerts Substance Reaction Severity Status ciprofloxacin Active ibuprofen Active azithromycin Nausea and vomiting status: disruptive [...] Route to Pharmacy Electronically, [facility], Partial fill upon patient request if the prescription is for a schedule II opioi... Start Date: 02/24/22 Status: Ordered BD PEN NEEDL MIS [id number] [place] BD PEN NEEDL MIS [id number] [place], 0 Refills, Maintenance, 09/18/22 15:29:00 EDT [...] 07/08/23 12:49:00 EST, Route to Pharmacy Electronically, [facility], Partial fill upon patient requestif the [...] opioid drug. Start Date: 01/30/23 Status: Ordered MorPHINE Inj 1 mg, Injection, IV Push Slowly, Once, STAT, 08/10/23 14:55:00 EST, Stop date 08/10/23 14:55:00 EST Start Date: 08/10/23 Stop Date: 08/10/23 Status: Completed Plavix 75 mg oral tablet [...] 01/27/22 10:57:00 EDT, Capsule, [facility], Partial fill upon patient [...] 0 Refills, Maintenance, 10/18/22 4:27:00 EDT, Capsule, [facility], Partial fill upon patient request if [...] Exam Date Time Procedure Performing Provider Status 08/10/23 12:[address] Head-Hyper Acute Stroke Willie Pyle ei; Auth (Verified) Notes: (CT Head-Hyper Acute Stroke) Reason For Exam: Neuro deficit, acute, stroke suspected;Other: RESULT: CT Head-Hyper Acute Stroke CT Head-Hyper Acute Stroke INDICATION: Hx of Present Illness: pt c o feeling dizzy, pt states she noticed it this morning whenshe woke to use the restroom. Pt states sghe also went outside to smoke and got dizzy on the way back in. according to SNF staff pt is not as confussed as usual ; Reason: Other:; Neuro deficit, acute, stroke suspected; Clinical Question(s): Other:; Hematoma Infarction TECHNIQUE: Noncontrast head CT using axial technique and reconstructed in axial and coronal planes.Iterative reconstruction techniques are used to optimize dose and image quality. CTDIvol Body: 13.47 mGy, DLP Body: 410 mGy*cm. CTDIvol Head: 48.10 mGy, DLP Head: 772 mGy*cm. COMPARISON: Same day CTA head CT head from 07/05/2023 FINDINGS: Shoulder Joiner view findings, lines and tubes: None. BRAIN AND EXTRA-AXIAL SPACES: No parenchymal hemorrhage, midline shift, or mass effect. Bernard-white matter differentiation is wellpreserved. No acute infarct. Negative insular ribbon sign. Atherosclerotic vascular calcification of the carotid arteries but negative hyperdense vessel sign. Small chronic lacunar infarct in the right thalamus (202:56). Small chronic lacunar infarct in the inferior right basal ganglia are region (202:46). Small chronic infarct right cerebellar hemisphere. Moderate prominence of the ventricles and sulci consistent with parenchymal volume loss. Mild low-density white matter changes. No subarachnoid hemorrhage. No subdural or epidural collection. CALVARIUM, SKULL BASE, AND SOFT TISSUES: No fractures or suspicious bony lesions. Mild mucosal thickening in the ethmoid air cells. Mastoid air cells are clear. Status-post bilateral lens extraction. The extracranial soft tissues are unremarkable. IMPRESSION: No acute intracranial pathology. WSN: [id number] Ordering Physician: Fabricio Moctezuma Dictated By: Antwna Mcneill MD Dictated Date/Time: 08/10/23 1:08 pm Reviewed By: Antwan Mcneill MD Signed By: Antwan Mcneill MD Signed Date/Time: 08/10/23 1:08 pm Transcribed By: FERMIN Transcribed Date/Time: 08/10/23 1:04 pm * Exam Date Time Procedure Performing Provider Status 08/10/23 12:[address] Angio Neck Hyperacute Stroke Desire Pyle; Gilda (Verified) Notes: (CT Angio Neck Hyperacute Stroke) Reason For Exam: Aneurysm, neck vessel(s);Other: RESULT: CT Angio Neck Hyperacute Stroke CT Angio Head Hyperacute Stroke, CT Angio Neck Hyperacute Stroke Hx of Present Illness: pt c o feeling dizzy, pt states she noticed it this morning when she woke touse the restroom. Pt states she also went outside to smoke and got dizzy on the way back in. according to SNF staff pt is not as confused as usual ; Reason: Other:; Stroke; Clinical Question(s): Other:; Hematoma [...] used to optimize exposure parameters. CTDIvol Body: 13.47 mGy, DLP Body: 410 mGy*cm. CTDIvol Head: 48.10 mGy, DLP Head: 772 mGy*cm. COMPARISON: Noncontrast CT head performed concurrently. CTA Head and Neck 07/05/2023. FINDINGS: CTA OF THE NECK: Arch: There is variant anatomy of the aortic arch, with common origin of the brachiocephalic arteryand left common carotid artery as well as direct origin of the left vertebral artery from the arch.There is moderate atherosclerotic plaque of the aortic arch, but origins of the supra aortic vessels are patent. Severe narrowing of the proximal right subclavian artery by calcified plaque is similar to prior. Right carotid system: The common carotid and [...] Right vertebral: There is calcified atherosclerotic plaque along the V3 segment but no significant stenosis at the site or elsewhere in the cervical right vertebral artery. There is no dissection or aneurysm. Left vertebral: There is calcified atherosclerotic plaque at the origin from the arch, but no significant stenosis. There is no dissection or aneurysm. Other: Soft tissues and bones: No evidence of lymphadenopathy or mass. The thyroid is unremarkable. Visualized lung apices are clear. Centrilobular emphysema is noted in the visualized lung apices. Multilevel degenerative changes of the spine are noted, without acute osseous abnormality. There is partial visualization of a hemangioma at T6. 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 Left chest wall pacemaker is partially visualized. CTA OF THE HEAD: Anterior circulation: Bilateral intracranial ICAs demonstrate atherosclerotic calcification, with mild narrowing of the cavernous segments on each side. Left A1 segment is aplastic with supply to theleft A2 segment via patent anterior communicating artery, a normal variant. There is superposed moderate to severe narrowing of the right MIGUEL A1 segment, unchanged from the prior examination. Multifocal mild narrowing of the more distal MIGUEL branches appear similar to prior, with no new site of stenosis or cut off. Bilateral MCA branches are patent, with several subtle areas of mild narrowing but no high-grade stenosis or cut off. No aneurysm or vascular malformation is seen. Posterior circulation: The nondominant left vertebral artery is nondominant and relatively diminutive, but patent. The dominant right vertebral artery is patent, with mild narrowing of the proximal V4 segment but no high-grade stenosis. The basilar artery is relatively small in caliber but patent with multifocal mild superimposed narrowing. There is predominantly supply to both vice president of product marketing with hypoplastic P1 segments, which accounts for the small size of the basilar artery more proximally. Bilateral AICA/PICA complexes and SCA branches are patent. Both ICAs are patent without proximal cutoff.There is focal moderate narrowing of the right distal P-comm/proximal P2 segment, as seen on the prior study, with preserved distal flow. No aneurysm or vascular malformation is seen. Veins: Major dural venous sinuses are patent. Other: Soft tissues and bones: No midline shift or effacement of the basal cisterns. No space-occupying hemorrhage. No territorial loss of bernard-white matter differentiation. There have been lens extractions bilaterally. There is mild scattered mucosal thickening in the paranasal sinuses without fluid levels. IMPRESSION: 1. No large vessel occlusion in the head or neck. 2. Unchanged severe stenosis of the proximal subclavian artery proximal to the takeoff of the rightPICA. This configuration may predispose the patient to subclavian steal syndrome . 3. Unchanged moderate stenosis of bilateral proximal cervical ICAs. 4. Unchanged intracranial stenoses, including moderate to severe narrowing of the right A1 segment which supplies both A2 segments. WSN: [id number] Ordering Physician: Fabricio Moctezuma Dictated By: Shruthi Loja MD Dictated Date/Time: 08/10/23 4:36 pm Reviewed By: Shruthi Loja MD Signed By: Shruthi Loja MD Signed Date/Time: 08/10/23 4:36 pm Transcribed By: FERMIN Transcribed Date/Time: 08/10/23 1:12 pm * Exam Date Time Procedure Performing Provider Status 08/10/23 12:[address] Angio Head Hyperacute Stroke Desire Pyle; Auth (Verified) Notes: (CT Angio Head Hyperacute Stroke) Reason For Exam: Stroke;Other: RESULT: CT Angio Head Hyperacute Stroke CT Angio Head Hyperacute Stroke, CT Angio Neck Hyperacute Stroke Hx of Present Illness: pt c o feeling dizzy, pt states she noticed it this morning when she woke touse the restroom. Pt states she also went outside to smoke and got dizzy on the way back in. according to SNF staff pt is not as confused as usual ; Reason: Other:; Stroke; Clinical Question(s): Other:; Hematoma [...] used to optimize exposure parameters. CTDIvol Body: 13.47 mGy, DLP Body: 410 mGy*cm. CTDIvol Head: 48.10 mGy, DLP Head: 772 mGy*cm. COMPARISON: Noncontrast CT head performed concurrently. CTA Head and Neck 07/05/2023. FINDINGS: CTA OF THE NECK: Arch: There is variant anatomy of the aortic arch, with common origin of the brachiocephalic arteryand left common carotid artery as well as direct origin of the left vertebral artery from the arch.There is moderate atherosclerotic plaque of the aortic arch, but origins of the supra aortic vessels are patent. Severe narrowing of the proximal right subclavian artery by calcified plaque is similar to prior. Right carotid system: The common carotid and [...] Right vertebral: There is calcified atherosclerotic plaque along the V3 segment but no significant stenosis at the site or elsewhere in the cervical right vertebral artery. There is no dissection or aneurysm. Left vertebral: There is calcified atherosclerotic plaque at the origin from the arch, but no significant stenosis. There is no dissection or aneurysm. Other: Soft tissues and bones: No evidence of lymphadenopathy or mass. The thyroid is unremarkable. Visualized lung apices are clear. Centrilobular emphysema is noted in the visualized lung apices. Multilevel degenerative changes of the spine are noted, without acute osseous abnormality. There is partial visualization of a hemangioma at T6. 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 Left chest wall pacemaker is partially visualized. CTA OF THE HEAD: Anterior circulation: Bilateral intracranial ICAs demonstrate atherosclerotic calcification, with mild narrowing of the cavernous segments on each side. Left A1 segment is aplastic with supply to theleft A2 segment via patent anterior communicating artery, a normal variant. There is superposed moderate to severe narrowing of the right MIGUEL A1 segment, unchanged from the prior examination. Multifocal mild narrowing of the more distal MIGUEL branches appear similar to prior, with no new site of stenosis or cut off. Bilateral MCA branches are patent, with several subtle areas of mild narrowing but no high-grade stenosis or cut off. No aneurysm or vascular malformation is seen. Posterior circulation: The nondominant left vertebral artery is nondominant and relatively diminutive, but patent. The dominant right vertebral artery is patent, with mild narrowing of the proximal V4 segment but no high-grade stenosis. The basilar artery is relatively small in caliber but patent with multifocal mild superimposed narrowing. There is predominantly supply to both vice president of product marketing with hypoplastic P1 segments, which accounts for the small size of the basilar artery more proximally. Bilateral AICA/PICA complexes and SCA branches are patent. Both ICAs are patent without proximal cutoff.There is focal moderate narrowing of the right distal P-comm/proximal P2 segment, as seen on the prior study, with preserved distal flow. No aneurysm or vascular malformation is seen. Veins: Major dural venous sinuses are patent. Other: Soft tissues and bones: No midline shift or effacement of the basal cisterns. No space-occupying hemorrhage. No territorial loss of bernard-white matter differentiation. There have been lens extractions bilaterally. There is mild scattered mucosal thickening in the paranasal sinuses without fluid levels. IMPRESSION: 1. No large vessel occlusion in the head or neck. 2. Unchanged severe stenosis of the proximal subclavian artery proximal to the takeoff of the rightPICA. This configuration may predispose the patient to subclavian steal syndrome . 3. Unchanged moderate stenosis of bilateral proximal cervical ICAs. 4. Unchanged intracranial stenoses, including moderate to severe narrowing of the right A1 segment which supplies both A2 segments. WSN: [id number] Ordering Physician: Fabricio Moctezuma Dictated By: Shruthi Loja MD Dictated Date/Time: 08/10/23 4:36 pm Reviewed By: Shruthi Loja MD Signed By: Shruthi Loja MD Signed Date/Time: 08/10/23 4:36 pm Transcribed By: FERMIN Transcribed Date/Time: 08/10/23 1:12 pm Vital Signs Most recent to oldest [Reference Range]: 1 2 3 Oxygen Saturation [94-100 %] 99 % (08/10/23 5:30 PM) 98 % (08/10/23 3:31 PM) 98 % (08/10/23 2:00 PM) Pulse Rate [55-90 bpm] 66 bpm (08/10/23 5:30 PM) 60 bpm (08/10/23 3:31 PM) 66 bpm (08/10/23 2:00 PM) Blood Pressure [90-138/55-84 mm Hg] 145/72mm Hg *H* (08/10/23 5:30 PM) 150/69mm Hg *H* (08/10/23 3:31 PM) 148/73mm Hg *H* (08/10/23 2:00 PM) Respiratory Rate [16-30 br/min] 16 br/min (08/10/23 5:30 PM) 16 br/min (08/10/23 4:00 PM) 16 br/min (08/10/23 3:31 PM) Temperature [96.8-100.4 DegF] 97.9 DegF (08/10/23 11:40 AM) Mode of Delivery (Oxygen) Room air (08/10/23 5:30 PM) Room air (08/10/23 3:31 PM) Room air (08/10/23 1:02 PM) Blood pressure sites Arm, left (08/10/23 1:02 PM) Arm, left (08/10/23 11:44 AM) Arm, right (08/10/23 11:40 AM) Temperature Route Oral (08/10/23 11:40 AM) Social History Social History Type Response Tobacco Use: 4 or less cigar ettes(less than 1/4 pack)/day in last 30 days. Sex Consult note * Shalini Mariano: PERFORM, MODIFY, MODIFY, MODIFY, MODIFY, MODIFY, MODIFY, MODIFY, MODIFY, MODIFY, MODIFY, MODIFY, MODIFY, MODIFY, MODIFY Event Display: Consultation Note Authored Date: [id number] Patient: ??SARA CARTER ? Age:??77 Years?Sex:??Female?:??1945?? Chief Complaint/Reason for Consultation dizziness History of Present Illness History of Present Illness Ms. Carter is a 77-year-old female with PMH significant for CAD, HTN, SSS, Type 2 DM, hypothyroidism, active smoker, and cognitive impairment who presented 08/09 for dizziness. Neurology consulted as anAST alert. ?? Pt states she was LKW at 8:30 PM on 08/08 when she went to bed in her normal state of health. She woke up at 0300 to use the bathroom and felt off balance with lightheadedness. She went back to sleep and woke up at 0700 with continued dizziness and off balance sensation. She describes dizziness as lightheaded with standing. She denies vertigo or room spinning sensation. She denies diplopia, hearingchanges, weakness, sensory changes. She does feel that her knees are buckling with walking. She admits to holohemispheric headache which she states started when someone shined a light in my eyes. She also notes ongoing R vision change which she describes as dot in the vision on the right. This has been ongoing x1 month and she is pending outpt eye appt. In ED, she had NIHSS 1 for subtle R droop which was present on prior exam documented by neuro. She was taken for CTH/A which were non-acute, no LVO. SBP max 168 by EMS. No NEVt given no LVO, and no TNK given OOW. ?? Of note, pt was seen for same complaints by neurology as an AST alert 07/2023. At that time, she c/o lightheadedness, headache, and L deficits. Symptoms at that time were felt to be due to hypertensive but also was orthostatics positive. She also c/o R vision change at that time and was recommended for outpt ophthalmology appt. ?? The patient was seen and evaluated in the Emergency Department. ? Stroke Time Course: Time patient last seen well (not time patient was found): _8:30 PM on 08/08 Time patient arrived in ED: _11:28 AM on 08/09 Time neurology consulted/paged: _12:36 PM on 08/09 Time patient is seen by neurology: _12:40 PM Time [address] head/interpreted: _12:49 PM TNK Given: yes/no _no TNK time if given: _N/A Reason for TNK exclusion if not given: _OOW TALIA/IA was not done, why ? _not done, no LVO TALIA/IA was done, then time to IA therapy: _N/A ? Review of Systems ?General: Denies weight changes, fatigue, fever, chills ?Skin: denies rash, bites ?Eyes: denies visual changes, blurry vision ?ENT: denies hearing changes ?Cardiovascular: denies chest pain ?Respiratory: denies SOB ?GI: denies abdominal pain, nausea, vomiting, diarrhea ?: denies loss of bladder or bowel function ?Musculoskeletal: denies muscle weakness, swelling ?Neurological: +headache, +dizzy,??+vision change;??denies hearing changes, trouble swallowing, slurring, word finding difficulties, weakness, paresthesias, tremors, fainting, blackouts, seizure, numbness/tingling/loss of sensation Objective ? Vital Signs?? Temperature: 97.9 DegF (08/10/23 11:40:00) Temperature Route: Oral (08/10/23 11:40:00) Pulse Rate: 61 bpm (08/10/23 11:44:00) Respiratory Rate:??13 br/min??Low (08/10/23 11:44:00) Systolic Blood Pressure:??147 mm Hg??High (08/10/23 11:44:00) Diastolic Blood Pressure: 56 mm Hg (08/10/23 11:44:00) Blood pressure sites: Arm, left (08/10/23 11:44:00) Mean Arterial Pressure: 86 mm Hg (08/10/23 11:44:00) Pulse Pressure: 91 mm Hg (08/10/23 11:44:00) Oxygen Saturation: 94 % (08/10/23 11:44:00) Mode of Delivery (Oxygen): Room air (08/10/23 11:44:00) ? Ventilator Settings?? No qualifying data available. ? Intake/Output? No Data Available ? Physical Exam General Exam Appearance: Appears comfortable and appropriate, in no acute distress. Appears stated age.? HEENT: Normocephalic, atraumatic.? Cardiac: Regular rate and rhythm ?? Respiratory: Normal inspiration and expiration ?? Rheumatologic: No swelling, deformities or tenderness ?? Dermatologic: No significant skin lesions, rash, or bruising ?? Extremities: No edema or stasis changes ?? Psychiatric: Not depressed or anxious. Full and appropriate Affect. ?? Neurologic: Mentation: Awake, alert. Patient is oriented to person, place, time, and situation. Speech is clearand without slurring. Follows commands. names objects claims technician: PERRL. EOMI. No nystagmus. VFF to confrontation. R droop (present on prior exams in [facility] - not new). Tongue midline and uvula rises symmetrically. Facial sensation in tact to light touch. Hearingacuity in tact to voice. Lateral head deviation and shoulder shrug 5/5?? Motor: Normal bulk/tone. Strength 5/5 UEs and LEs. City Driver equal. No pronator drift. Sensation: In tact to light touch of UEs and LEs, no extinction to DTS Coordination: Finger to nose smooth Gait:??deferred ? NIH Stroke Scale:? 1a. LOC (0-alert; 1-not alert, arousable; 2-not alert, obtunded; 3- nonresponsive): _0 1b. Questions (0-answers two correctly; 1-answers one correctly; 2-answers neither correctly): _0 1c. Commands (0-perform two tasks; 1-performs one task; 2-performs neither tasks): _0 2. Gaze (0-normal; 1-partial gaze palsy; 2-forced deviation): _0 3. Visual otoole (0-no visual loss; 1-partial hemianopsia; 2-complete hemianopsia; 3-bilateral hemianopsia): _0 4. Facial palsy (0-normal; 1-minor palsy; 2-partial palsy; 3-complete paralysis): _1 5a. Motor left arm (0-normal; 1-drift before 10 sec; 2-falls before 10 sec; 3-no effort against gravity; 4-no movement): _0 5b. Motor right arm (0-normal; 1-drift before 10 sec; 2-falls before 10 sec; 3- no effort against gravity; 4-no movement): _0 6a. Motor left leg (0-normal; 1-drift before 5 sec; 2-falls before 5 sec; 3-no effort against gravity; 4-no movement): _0 6b. Motor right leg (0-normal; 1-drift before 5 sec; 2-falls before 5 sec; 3-no effort against gravity; 4-no movement): _0 7. Ataxia (0-absent; 1-one limb; 2-two limbs): _0 8. Sensory (0-absent; 1-mild/moderate; 2-severe/total loss): _0 9. Language (0-normal; 1-mild/moderate loss; 2-severe aphasia; 3-mute): _0 10. Dysarthria (0-normal; 1-mild/moderate; 2-severe): _0 11. Extinction (0-normal; 1-mild-one modality; 5-daupqt-mtb modality): _0 ?? NIHSS Total: _1 - R droop, present on prior exam in [facility] Assessment/Plan ?? Ms. Carter is a 77-year-old female with PMH significant for CAD, HTN, SSS, Type 2 DM, hypothyroidism, active smoker, and cognitive impairment who presented 08/09 for dizziness which she describes as lightheaded with standing, as well as headache, and ongoing R vision change (present >1 month), withrecent presentation 07/2023 for the same symptoms found to be orthostatic and hypertensive to 170s at that time (seen by neuro as AST alert at that time, CTH/A neg, neuro signed off) - Neurology consulted as an AST alert 08/09. Exam with chronic R droop (present on prior exams), otherwise nonfocal, SBP 168 by EMS, CTH/A stable from prior/non-acute. No TNK given OOW, no NEVt given no LVO ?? dx: lightheadedness with standing, with hx of same presentation 1 month ago found to be orthostaticand hypertensive at that time - suspect likely??orthostatic again given same complaint, also hypertensive ?? Recs - orthostatic VS - BP control as per ED - continue home asa - no need for further neuro work up ? Thank you for this consultation No further neuro recs, signing off Pls call if questions ?? d/w Dr. Doan d/w ED team? Histories Allergies Allergies ?(Active and Proposed Allergies Only) ibuprofen? (Severity: Unknown severity, Onset: Unknown) rosuvastatin? (Severity: Unknown severity, Onset: Unknown) ?Comments: [...] Details:??Electronic Cigarette Use: Never. ? Family History Non contributory for stroke ? Medications Home Medications Acetaminophen (Tylenol 325 [...] oral capsule)?1?capsule?20?Milligram?By Mouth?Daily ? Results Recent Labs No labs resulted between 08/09/2023 00:00 and 08/10/2023 12:50? CTH IMPRESSION:?? No acute intracranial pathology ? CTA head/neck IMPRESSION:? 1. ??No large vessel occlusion in the head or neck. 2. ??Unchanged severe stenosis of the proximal subclavian artery proximal to the takeoff of the right PICA. This configuration may predispose the patient to subclavian steal syndrome . 3. ??Unchanged moderate stenosis of bilateral proximal cervical ICA. 4. ??Unchanged intracranial stenoses, including moderate to severe narrowing of the right A1 segment which supplies both A2 segments. ?? * Anjel Doan MD: PERFORM Event Display: Consultation Note Authored Date: Patient discussed with PA??Shalini Issa.??I reviewed her note and agree with her assessment and plan. Most likely orthostatic hypotension or orthostatic blood pressure dysregulation. Check orthostatic vitals; ?? Anjel Doan MD, PhD Patient Care team information Care Team Personnel Name: Yessica Koch RN Position: S RN Member Role: Primary Care Nurse Name: Chase Otoole RN Position: S RN Member Role: Primary Care Nurse Name: Radha Crawford Position: S RN Member Role: Primary Care Nurse Name: Ashley Morales MD Position: [facility] Physician - Primary Care Member Role: PCP Address: Address: [address] [place], [place] [address] Name: Svitlana Mcgee RN Position: [facility] RN Member Role: Primary Care Nurse Name: Chip Colon RN Position: S RN Member Role: Primary Care Nurse Name: Soraida Handy RN Position: [facility] RN Member Role: Primary Care Nurse Name: Thom Kuo RN Position: [facility] [facility] RN Member Role: Primary Care Nurse Name: Ileana Khan RN Position: [facility] Onco RN Member Role: Primary Care Nurse Name: Yolanda Anderson RN Position: [facility] RN Member Role: Primary Care Nurse Name: Becky Quezada RN Position: [facility] SN RN Member Role: Primary Care Nurse Name: Justa Greco RN Position: [facility] RN Member Role: Primary Care Nurse Name: Sara Dorantes RN Position: [facility] RN Member Role: Primary Care Nurse Name: Chelita Bailey LPN Position: S RN Member Role: Primary Care Nurse
--- NOTE | 2024-02-16 22:39 | ED_ITS ---
HPI - Female Genitourinary General Chief complaint: Urogenital-Female Stated complaint: bladder infection symptoms,confused Time Seen by Provider: 02/16/24 22:25 Source: patient Mode of arrival: ambulatory Limitations: no limitations History of Present Illness ED Provider: Thu ANDREA HPI Narrative: This is an 78-year-old female history of hypertension, kidney stones, diabetes, hypothyroidism, dementia, hyperlipidemia, abdominal aortic aneurysm presenting to the emergency department with concerns of dark urine, left-sided flank pain with radiation into abdomen, burning upon urination, fevers T-max 102 degrees. Patient denies chest pain, shortness of breath, nausea, vomiting, diarrhea, blood in urine, blood in stool, headache, vision changes, dizziness and weakness Related Data Home Medications ?Medication ?Instructions ?Recorded ?Confirmed lisinopril 40 mg tablet 40 mg PO DAILY 11/04/20 04/17/23 amlodipine 5 mg tablet 5 mg PO DAILY 12/14/21 04/17/23 levothyroxine 100 mcg tablet 100 mcg PO DAILY 12/14/21 04/17/23 rosuvastatin 20 mg tablet 20 mg PO BEDTIME 12/14/21 04/17/23 Previous Rx's ?Medication ?Instructions ?Recorded blood-glucose meter (OneTouch #100 ea 09/01/20 Ultra2 Meter) insulin degludec 100 unit/mL (3 18 unit (0.18 mL) subcut BEDTIME 07/20/21 mL) subcutaneous pen (Tresiba #15 mL FlexTouch U-100 insulin) pyridoxine (vitamin B6) 100 mg 100 mg PO DAILY 90 days #90 tabs 09/27/21 tablet blood sugar diagnostic #100 ea 10/20/21 lancets 33 gauge (OneTouch Delica #100 ea 10/20/21 Lancets) pen needle, diabetic 33 gauge x #100 ea 11/18/21/32 (Comfort EZ Pen [place]) cyanocobalamin (vitamin B-12) 1,000 mcg PO DAILY #30 tabs 12/30/21 1,000 mcg tablet blood sugar diagnostic (FreeStyle #100 ea 01/13/22 Lite Strips) cholecalciferol (vitamin D3) 125 125 mcg PO DAILY #90 caps 02/16/22 mcg (5,000 unit) capsule famotidine 40 mg tablet 40 mg PO DAILY #90 tabs 02/16/22 clopidogrel 75 mg tablet 75 mg PO DAILY #90 tabs 03/09/22 donepezil 5 mg tablet 5 mg PO BEDTIME #90 tabs 03/09/22 gabapentin 100 mg capsule 100 mg PO BID #180 caps 03/09/22 metoprolol succinate 25 mg 50 mg (2 x 25 mg) PO DAILY #90 tabs 03/09/22 tablet,extended release 24 hr allopurinol 100 mg tablet 100 mg PO DAILY 90 days #90 tabs 03/27/22 aspirin 81 mg capsule 81 mg PO DAILY #30 caps 06/26/22 docusate sodium 100 mg capsule 100 mg PO BID #180 caps 11/10/22 (Colace) polyethylene glycol 3350 17 17 g PO BID PRN constipation #238 11/10/22 gram/dose oral powder (Miralax) grams sennosides 8.6 mg tablet (senna) 8.6 mg PO BEDTIME #90 tabs 11/10/22 doxycycline hyclate 100 mg tablet 100 mg PO BID #14 tabs 07/21/23 ciprofloxacin HCl 250 mg tablet 250 mg PO BID 3 days #6 tabs 11/19/23 cefuroxime axetil 250 mg tablet 250 mg PO BID 7 days #14 tabs 02/17/24 Allergies Allergy/AdvReac Type Severity Reaction Status Date / Time atorvastatin Allergy Unknown pt does Verified 02/16/24 22:04 not know azithromycin Allergy Unknown pt does Verified 02/16/24 22:04 not know ceftriaxone Allergy Unknown pt does Verified 02/16/24 22:04 not know cephalexin Allergy Unknown pt does Verified 02/16/24 22:04 not know citalopram Allergy Unknown pt does Verified 02/16/24 22:04 not know levofloxacin Allergy Unknown pt does Verified 02/16/24 22:04 not know metformin Allergy Unknown pt does Verified 02/16/24 22:04 not know nitrofurantoin Allergy Unknown pt does Verified 02/16/24 22:04 not know oxycodone Allergy Unknown pt does Verified 02/16/24 22:04 not know penicillin V Allergy Unknown pt does Verified 02/16/24 22:04 not know pioglitazone Allergy Unknown pt does Verified 02/16/24 22:04 not know repaglinide Allergy Unknown pt does Verified 02/16/24 22:04 not know rosuvastatin [Crestor] Allergy Unknown pt does Verified 02/16/24 22:04 not know sertraline Allergy Unknown pt does Verified 02/16/24 22:04 not know simvastatin Allergy Unknown pt does Verified 02/16/24 22:04 not know sulfacetamide Allergy Unknown pt does Verified 02/16/24 22:04 not know Cefuroxime Sodium Allergy Unknown pt does Uncoded 06/06/23 15:07 not know Review of Systems 2 Review of Systems: Yes all other systems are reviewed and are negative COUNT INCLUDES THE [facility] Past Medical History Attestation statement: The following information was validated with the patient. Source: old records reviewed and nursing notes reviewed Medical History Annual physical exam HTN (hypertension) IDDM (insulin dependent diabetes mellitus) Diverticulitis Nephrolithiasis Cataract Hyperlipidemia Pacemaker Myocardial infarct Macular degeneration Nephrolithiasis Dementia Frequent UTI HTN (hypertension) Hypothyroid Diabetes Surgical History Status post lumbar spine surgery for decompression of spinal cord H/O left knee surgery Family History Family History Father Heart attack Mother Heart problem Heart attack Substance use disorder Social History Social History Household Members: Children Household Members Other:: lives in assisted living Housing: House Do you presently have visiting nurse or other home services: No Alcohol intake: never Patient Tobacco Use Status: Current everyday Tobacco user Tobacco use type: Cigarette Cigarettes Per Day: 4 Years Smoked: 54 e-Cigarette/Vaping Use: Never Used Advance Directives: Yes Advance Directives on File: Yes Advance Directives Date on File: 11/05/20 Do you have a plan to hurt others: No Plan service: No Current occupational status: retired Cognitive needs: No Hearing needs: No Vision needs: Yes Physical Exam 2 Vital Signs: Vital Signs: Last Vital Signs Temp 97.7 F 02/17/24 00:18 Pulse 61 02/17/24 00:18 Resp 16 02/17/24 00:18 BP 164/76 H 02/17/24 00:18 Pulse Ox 95 02/17/24 00:18 O2 Del Method Room Air 02/17/24 00:18 BMI result Body Mass Index 26.2 vss Appearance: Alert.? Oriented X3.? No acute distress.? Head: Normocephalic, atraumatic, no step-offs or deformities Eyes: Pupils equal, round and reactive to light.? ENT: Pharynx normal.? Neck: Normal inspection.? Neck supple.? CVS: Normal heart rate and rhythm.? Pulses normal.? Respiratory: No respiratory distress.? Breath sounds normal.? Abdomen: Soft and mild discomfort to left lower quadrant..? Skin: Skin warm and dry.? Normal skin color.? Normal skin turgor.? Extremities: No lower extremity edema.? No calf ttp. 5/5 strength to bilateral upper and lower extremities Back: No midline tenderness, no C-spine tenderness, full range of motion, left- sided flank discomfort on palpation Neuro: Oriented X 3.? No motor deficit.? No sensory deficit. CN 2-12 intact . No saddle anesthesia Course Reevaluation(s) Reevaluation #1: CBC unremarkable. Chemistry with no acute findings needing intervention. UA with orange color, small amount of leukocyte esterases based off patient history will treat for cystitis/UTI this could be early on where no bacteria is detected however on culture it could be positive. CT abdomen and pelvis no acute findings in the abdomen or pelvis no hydronephrosis or obstructing calculus identified. Multiple bilateral renal calculi redemonstrated. Large amount of stool in the distal sigmoid colon. Focal dilation of the infrarenal aorta to approximately 4.1 cm PCP follow-up advised. Time: 01:17 Medications Administered Discontinued Medications Generic Name Dose Route Start Last Admin Trade Name Freq PRN Reason Stop Dose Admin Sodium Chloride 1,000 mls @ 999 mls/hr 02/16/24 23:00 02/16/24 22:50 Ns IV 02/17/24 00:00 999 mls/hr .Q1H1M MAGNUS Administration Morphine Sulfate 2 mg 02/16/24 22:47 02/16/24 22:50 Morphine Sulfate 2 Mg/Ml Cartridge IVPUSH 02/16/24 22:48 2 mg ONCE ONE Administration Protocol Medical Decision Making Medical Decision Making MDM Narrative: 78-year-old female presents with left flank pain, dysuria, dark urine and left lower quadrant abdominal discomfort ongoing for the past 2 days also reports fevers. Physical exam left-sided flank pain and left lower quadrant abdominal discomfort. History and physical exam concerning for UTI versus cystitis versus obstructing uropathy versus kidney stone. Unlikely pyelonephritis, acute abdomen, obstruction, diverticulitis, pancreatitis, appendicitis or cholecystitis. Will rule out metabolic derangements. Plan labs, imaging, urine Differential Diagnosis Differential Diagnoses: The differential diagnosis associated with the presentation includes History and physical exam concerning for UTI versus cystitis versus obstructing uropathy versus kidney stone. Unlikely pyelonephritis, acute abdomen, obstruction, diverticulitis, pancreatitis, appendicitis or cholecystitis. Will rule out metabolic derangements. Admission/Observation Consideration of admission/observation: Escalation of care including admission/observation considered possible Lab Data MDM Lab Attestation statement: I reviewed the patient's lab results. 02/16/24 22:22 02/16/24 22:22 Labs: Lab Results 02/16/24 02/16/24 Range/Units 22:22 22:34 WBC 8.1 (4.8-10.8) X10*3/uL RBC 4.65 (4.20-5.50) X10*6/uL Hgb 13.1 (12.0-16.0) g/dl Hct 41.2 (37.0-47.0) % MCV 88.6 (80.0-98.0) fL MCH 28.2 (27.0-33.0) pg MCHC 31.8 (31.0-35.0) g/dl RDW 17.0 H (11.0-16.0) % Plt Count 215 (160-400) X10*3/uL MPV 9.0 L (9.4-12.3) fL Immature Gran % (Auto) 0.1 (0.0-0.4) % Neut % (Auto) 63.5 (45-73) % Lymph % (Auto) 27.6 (20-40) % [place] % (Auto) 5.7 (2-11) % Eos % (Auto) 2.2 (0-4) % Baso % (Auto) 0.9 (0-2) % Lymph # (Auto) 2.2 (1.2-4.9) X10*3/uL [place] # (Auto) 0.5 (0.1-1.2) X10*3/uL Eos # (Auto) 0.2 (0.0-0.4) X10*3/uL Baso # (Auto) 0.1 (0.0-0.2) X10*3/uL Abs Immat Gran (auto) 0.01 (0.00-0.03) X10*3/uL Absolute Neuts (auto) 5.2 (2.0-8.3) x10*3/uL Absolute Nucleated RBC 0.000 (0.0-0.012) X10*3/uL Nucleated RBC % (auto) 0.0 (0.0-0.2) /100WBC Sodium 142 (135-145) mmol/L Potassium 3.9 (3.3-5.1) mmol/L Chloride 111 H (96-108) mmol/L Carbon Dioxide 23 (22-29) mmol/L Anion Gap 12 (12-20) BUN 18 H (9-16) mg/dL Creatinine 0.80 (0.5-1.4) mg/dL Estim Creat Clear Calc 51.6 Estimated GFR > 60 Random Glucose 137 H (60-115) mg/dL Calcium 9.3 (8.4-10.2) mg/dL Total Bilirubin 0.2 (0.0-1.0) mg/dL AST 21 (5-31) U/L ALT 14 (0-31) U/L Alkaline Phosphatase 92 (39-117) U/L Total Creatine Kinase 41 (26-140) U/L Total Protein 6.7 (6.5-8.0) g/dL Albumin 3.7 (3.5-5.0) g/dL Urine Color [place] A Urine Appearance Turbid Urine pH 5.5 (5.0-9.0) Ur Specific [place] 1.020 (1.005-1.025) Urine Protein 30 (1+) H (Neg-Trace) mg/dL Urine Glucose (UA) Negative (Negative) mg/dL Urine Ketones Negative (Negative) mg/dL Urine Blood Large (3+) H (Negative) Urine Nitrite Negative (Negative) Ur Leukocyte Esterase Small (1+) H (Negative) Urine RBC >20 H (0-2) /HPF Urine WBC 6-10 H (0-5) /HPF Ur Squamous Epith Cells 3-5 (0-2) /HPF Urine Bacteria None Seen (None Seen) Hyaline Casts 0-2 (0-2) /LPF Independent Interpretation I performed an independent interpretation of an: CT Scan Radiology Impression Discussion of test interpretation with radiology: I have reviewed the radiologist's reading. External Record Review External record reviewed: Inpatient record, Office record, Outpatient record, Prior outpatient labs, Prior outpatient radiology and Primary care record Chronic Conditions Patient?s care impacted by: Diabetes, Hypertension and Other (HLD, dementia ) Critical Care Time Critical Care Time Critical Care Time: No Discharge Plan Discharge Clinical Impression: Acute right flank pain, Dysuria Patient Disposition: Home, Self-Care Instructions: Dysuria (ED), Flank Pain (ED) Additional Instructions: Take your medications as prescribed. If you were prescribed antibiotics today, it is important that you take your medication to their entirety, do not skip any doses, do not finish them early. Follow-up with your primary care provider this week. Return to the emergency department with new or worsening symptoms. Such as fevers, chills, chest pain, shortness of breath, nausea, vomiting, dizziness, headache, vision changes, lethargy In case of emergency call 911 Prescriptions: New cefuroxime axetil 250 mg tablet 250 mg PO BID 7 Days Qty: 14 0RF No Action (DME) blood-glucose meter [OneTouch Ultra2 Meter] [facility] See Rx Instructions .ROUTE .MEDSUPPLY Qty: 100 3RF Rx Instructions: tid pyridoxine (vitamin B6) 100 mg tablet 100 mg PO DAILY 90 Days Qty: 90 3RF (DME) pen needle, diabetic [Comfort EZ Pen [place]] 33 gauge x 5/32 needle See Rx Instructions .Route Qty: 100 3RF Rx Instructions: As directed cyanocobalamin (vitamin B-12) 1,000 mcg tablet 1,000 mcg PO DAILY Qty: 30 8RF (DME) FreeStyle Lite Strips Strip See Rx Instructions .Route Qty: 100 5RF Rx Instructions: test blood sugar 3 times per day famotidine 40 mg tablet 40 mg PO DAILY Qty: 90 3RF cholecalciferol (vitamin D3) 125 mcg (5,000 unit) capsule 125 mcg PO DAILY Qty: 90 3RF donepezil 5 mg tablet 5 mg PO BEDTIME Qty: 90 3RF metoprolol succinate 25 mg tablet extended release 24 hr 50 mg PO DAILY Qty: 90 3RF gabapentin 100 mg capsule 100 mg PO BID Qty: 180 3RF clopidogrel 75 mg tablet 75 mg PO DAILY Qty: 90 3RF allopurinol 100 mg tablet 100 mg PO DAILY 90 Days Qty: 90 1RF docusate sodium [Colace] 100 mg capsule 100 mg PO BID Qty: 180 3RF polyethylene glycol 3350 [Miralax] 17 gram/dose powder 17 g PO BID PRN (Reason: constipation) Qty: 238 0RF Rx Instructions: If no BM x 3 days sennosides [senna] 8.6 mg tablet 8.6 mg PO BEDTIME Qty: 90 3RF ciprofloxacin HCl 250 mg tablet 250 mg PO BID 3 Days Qty: 6 0RF lisinopril 40 mg Tablet 40 mg PO DAILY aspirin 81 mg capsule 81 mg PO DAILY Qty: 30 0RF doxycycline hyclate 100 mg tablet 100 mg PO BID Qty: 14 0RF Tresiba FlexTouch U-100 100 unit/mL (3 mL) insulin pen 18 unit subcut BEDTIME Qty: 15 4RF rosuvastatin 20 mg tablet 20 mg PO BEDTIME levothyroxine 100 mcg tablet 100 mcg PO DAILY amlodipine 5 mg tablet 5 mg PO DAILY (DME) lancets [OneTouch Delica Lancets] 33 gauge misc See Rx Instructions .ROUTE .MEDSUPPLY Qty: 100 5RF Rx Instructions: TID (DME) OneTouch Ultra Blue Test Strip Strip See Rx Instructions .ROUTE .MEDSUPPLY Qty: 100 4RF Rx Instructions: tid Referrals: Physician,Unknown J [Primary Care Provider] - 2 days Print Language: Divehi
[2024-02-16 22:46] LABS: Bacteria Urine None Seen (None Seen); Hyaline Casts Urine 0-2 /LPF (0-2); RBC Urine >20 /HPF (0-2)
[2024-02-16 22:47] LABS: Appearance Urine Turbid; Color Urine Orange; Glucose Urine UA Negative (Negative); Leukocyte Esterase Urine Small (1+) (Negative); Nitrite Urine Negative (Negative); PH 5.5 (5.0-9.0); UACC Culture Trigger YES; UMIC TRIGGER UACC YES; Urine Blood Large (3+) (Negative); Urine Ketones Negative (Negative); Urine Protein 30 (1+) mg/dL (Neg-Trace)
[2024-02-16 22:49] LABS: Anion Gap 12 (12-20)
[2024-02-16 22:50] VITALS: RESP 15
[2024-02-16] MEDS: 0.9 % Sodium Chloride 1,000 ML 999 ML IV (22:50)
[2024-02-16] MEDS: Morphine Sulfate 2 MG/ML CARTRIDGE IVPUSH (22:50)
[2024-02-16 22:53] LABS: Alanine Aminotransferase 14 U/L (0-31); Albumin Level 3.7 g/dL (3.5-5.0); Alkaline Phosphatase 92 U/L (39-117); Aspartate Amino Transferase 21 U/L (5-31); Bilirubin Total 0.2 mg/dL (0.0-1.0); Blood Urea Nitrogen 18 mg/dL (9-16); Calcium 9.3 mg/dL (8.4-10.2); Carbon Dioxide 23 mmol/L (22-29); Chloride 111 mmol/L (96-108); Creatinine Clr Calc Pharmacy 51.6; Estimated Glomerular Filt Rate > 60; Glucose Random 137 mg/dL (60-115); Potassium 3.9 mmol/L (3.3-5.1); Sodium 142 mmol/L (135-145); Total Protein 6.7 g/dL (6.5-8.0)
--- NOTE | 2024-02-16 23:34 | PC.NURSE ---
pt biba from [facility] reporting onset of lower back pain, blood in urine, and pain with urination. pt reports hx of kidney stones, and needing a stent placed. pt assisted onto bedpan, urine voided and noted to be dark brown and foul smelling. 20G placed in right ac, labs obtained. pt alert to self at this time, unknown previous mental status.
[2024-02-17 00:18] VITALS: BP 164/76; PULSE 61; RESP 16; TEMP 36.5; O2SAT 95
[2024-02-17] MEDS: cefuroxime axetiL 250 MG TABLET PO (01:25)
--- NOTE | 2024-02-17 02:19 | MHC.EDTECH ---
Trev in place for Pt.
--- NOTE | 2024-02-17 03:37 | PC.NURSE ---
report given to Pat Pena, ems at bedside for pt.
[2024-02-17 03:38] VITALS: BP 190/73; PULSE 85; RESP 17; TEMP 36.9; O2SAT 95
== END 2024-02-17 03:39 | disposition home or self-care (01) ==
PROVIDERS: Physician Assistant; Emergency Provider Emergency Medicine Emergency Medical Services
DX: R10.9 Unspecified abdominal pain (principal); R30.0 Dysuria; R10.32 Left lower quadrant pain; E11.9 Type 2 diabetes mellitus without complications; I10 Essential (primary) hypertension; E78.5 Hyperlipidemia, unspecified; I25.2 Old myocardial infarction; F17.210 Nicotine dependence, cigarettes, uncomplicated; Z95.0 Presence of cardiac pacemaker; Z79.4 Long term (current) use of insulin; Z79.02 Long term (current) use of antithrombotics/antiplatelets; Z79.899 Other long term (current) drug therapy
CPT/HCPCS: 36415; 74176; 80053; 81001; 82550; 85025; 87086; 96374; 99283; 99284; J2270

== ENCOUNTER 2024-02-29 12:26 | Outpatient (REF) | payer MEDICARE, MEDICAID, SELFPAY ==
--- NOTE | 2024-02-29 13:23 | MHC.AU.HA3 ---
Hearing Instrument Follow-Up Date of Visit: 02/29/24 Right Ear: Yohannes, Model, Color, Serial Number: Charlene Hull [id number], graphite wiseman, LOST Hog Dropper Repair Warranty: 03/30/2023 Hog Dropper Loss and Damage Warranty: 03/30/2023 USED [facility] Service Plan: Battery Size: 13 Nurse Recruiter/Slim Tube: 2M Earmold/Dome/CShell/SlimTip:Small power dome with retention tail Type of Wax Guard: CeruShield Dispensed By: [facility] Date of Fittin01/12/2020 Left Ear: Yohannes, Model, Color, Serial Number: Charlene Hull [id number] Graphite Wiseman S#[id number] Hog Dropper Repair Warranty: 03/30/2023 Hog Dropper Loss and Damage Warranty: USED Battery Size: 13 Nurse Recruiter/Slim Tube: 2M Earmold/Dome/CShell/SlimTip: small power with retention tail Type of Wax Guard: CeruShield Dispensed By: [facility] Date of Fittin01/12/2020 Follow-Up Summary: [place] is seen for evaluation today. She is still wearing a single left hearing aid. Cleaned and checked the aid. Replaced dome and wax guard. Listening check positive. She will continue to use the one hearing aid while waiting for approval to acquire two new hearing aids. See audiogram. Recommendations: Recommendations: Patient will be contacted when materials have arrived. Diagnosis Code(s): Primary Diagnosis: H90.3 Bilateral Sensorineural Hearing Loss Signature: Provider: Isamar Puntam, [facility]
== END 2024-02-29 12:27 | disposition home or self-care (01) ==
LOC: HO.SH 12:26
PROVIDERS: Visit Provider Internal Medicine
DX: Z01.118 Encounter for examination of ears and hearing with other abnormal findings (principal); H90.3 Sensorineural hearing loss, bilateral
CPT/HCPCS: 92552; 92556; 92592; 99499

== ENCOUNTER 2024-03-05 09:08 | Outpatient (AMB) | payer MEDICARE, MEDICAID, SELFPAY ==
--- NOTE | 2024-03-05 09:10 | MHC.OFFVIS ---
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: No Allergies atorvastatin Allergy (Unknown, Verified 03/05/24 09:17) pt does not know azithromycin Allergy (Unknown, Verified 03/05/24 09:17) pt does not know ceftriaxone Allergy (Unknown, Verified 03/05/24 09:17) pt does not know cephalexin Allergy (Unknown, Verified 03/05/24 09:17) pt does not know citalopram Allergy (Unknown, Verified 03/05/24 09:17) pt does not know levofloxacin Allergy (Unknown, Verified 03/05/24 09:17) pt does not know metformin Allergy (Unknown, Verified 03/05/24 09:17) pt does not know nitrofurantoin Allergy (Unknown, Verified 03/05/24 09:17) pt does not know oxycodone Allergy (Unknown, Verified 03/05/24 09:17) pt does not know penicillin V Allergy (Unknown, Verified 03/05/24 09:17) pt does not know pioglitazone Allergy (Unknown, Verified 03/05/24 09:17) pt does not know repaglinide Allergy (Unknown, Verified 03/05/24 09:17) pt does not know rosuvastatin [Crestor] Allergy (Unknown, Verified 03/05/24 09:17) pt does not know sertraline Allergy (Unknown, Verified 03/05/24 09:17) pt does not know simvastatin Allergy (Unknown, Verified 03/05/24 09:17) pt does not know sulfacetamide Allergy (Unknown, Verified 03/05/24 09:17) pt does not know Cefuroxime Sodium Allergy (Unknown, Uncoded 06/06/23 15:07) pt does not know HPI Comments Details: 03/05/24--Sara Pedraza is an 78-year-old female who has been followed for kidney stones in the past, was seen in the emergency room on 02/16/2024 with complaints of abdominal pain. Urinalysis- question UTI. Urine culture 02/16/24- less than 10,[address] imaging reported bilateral nonobstructing kidney stones unable to rule out pyelonephritis. The patient was treated with antibiotics. Discussed that she may have passed a stone. She states she is feeling much better. CTAP-02/16/24--No hydronephrosis or obstructing calculus identified. Multiple bilateral renal calculi redemonstrated. Of note, there is significantly limited in evaluation for pyelonephritis without intravenous contrast. Review of chart: 09/24/21--[place] is a pleasant female. Accompanied by a caregiver. She is a patient of Dr. Cotto. MYRIAM with consistent stone burden Discussed possible intervention At this point she is not interested Certainly has stones on left and right Continue vitamin B6 and allopurinol Nephrolithiasis Longstanding history of stones Imaging - 09/22 CT bilateral nephrolithiasis left greater than right, small stones 3 mm - 03/24 renal ultrasound left 1.2 cm, right stones 6 mm Was able to pass stones at last admission Discussed stone management - recommend increase fluid intake, allopurinol, vitamin B6. - year imaging [facility] Medical History Annual physical exam HTN (hypertension) IDDM (insulin dependent diabetes mellitus) Diverticulitis Nephrolithiasis Cataract Hyperlipidemia Pacemaker Myocardial infarct Macular degeneration Nephrolithiasis Dementia Frequent UTI HTN (hypertension) Hypothyroid Diabetes Surgical History Status post lumbar spine surgery for decompression of spinal cord H/O left knee surgery Family History Father Heart attack Mother Heart problem Heart attack Substance use disorder Social History Household Members: Children Household Members Other:: lives in assisted living Housing: House Do you presently have visiting nurse or other home services: No Alcohol intake: never Patient Tobacco Use Status: Current everyday Tobacco user Tobacco use type: Cigarette Cigarettes Per Day: 4 Years Smoked: 54 e-Cigarette/Vaping Use: Never Used Advance Directives Date on File: 11/05/20 service: No Current occupational status: retired Cognitive needs: No Hearing needs: No Vision needs: Yes Review of Systems Const All systems reviewed & are unremarkable except as noted in HPI and below Reports no additional complaints Eyes Reports no additional complaints ENT Reports no additional complaints Card Reports no additional complaints Resp Reports no additional complaints GI Reports no additional complaints Reports as per HPI Musc Reports no additional complaints Skin/Breast Reports system reviewed and no additional complaints, except as documented Neuro Reports no additional complaints Psych Reports no additional complaints Endo Reports no additional complaints Darren/Lymph Reports no additional complaints Aller/Immun Reports no additional complaints Office Procedures Post Void Residual Post Residual Void Post Void Residual (PVR): 0 [id number] Void Residual by ultrasound Results AMB Urinalysis, Automated UA Leukoctes 15 Jerman/uL Last Edit by Nora Di on 03/05/24 10:18 UA Nitrite Negative Last Edit by Nora Di on 03/05/24 10:18 UA Urobilinogen 0.2 mg/dL Last Edit by Nora Di on 03/05/24 10:18 UA Protein 30 mg/dL Last Edit by Nora Di on 03/05/24 10:18 UA pH 5.5 Last Edit by Nora Di on 03/05/24 10:18 UA Blood 3 Tian/uL Last Edit by Nora Di on 03/05/24 10:18 UA Specific [place] 1.025 Last Edit by Nora Di on 03/05/24 10:18 UA Ketone Positive Last Edit by Nora Di on 03/05/24 10:18 UA Bilirubin 1 mg/dL Last Edit by Nora Di on 03/05/24 10:18 UA Glucose 0 mg/dL Last Edit by Nora Di on 03/05/24 10:18 Results Reviewed Results Reviewed: Laboratory Last Values Urine pH (Auto) 5.5 03/05/24 10:15 Specific [place] (Auto) 1.025 03/05/24 10:15 Urine Protein (Auto) 30 mg/dL 03/05/24 10:15 Glucose (UA)(Auto) 0 mg/dL 03/05/24 10:15 Urine Ketones (Auto) Positive 03/05/24 10:15 Urine Blood (Auto) 3 Tian/uL 03/05/24 10:15 Urine Nitrite (Auto) Negative 03/05/24 10:15 Urine Bilirubin (Auto) 1 mg/dL 03/05/24 10:15 Urine Urobilinogen (Auto) 0.2 mg/dL 03/05/24 10:15 Leukocyte Esterase (Auto) 15 Jerman/uL 03/05/24 10:15 Date of Service: 09/14/24 CT ABDOMEN AND PELVIS WITHOUT CONTRAST CLINICAL INFORMATION: Flank pain, change in urinary habits COMPARISON: 06/26/2022 TECHNIQUE: Multidetector volumetric imaging was performed from the superior aspect of the liver through the pubic symphysis. Sagittal and coronal reformatted images were obtained on the technologist's workstation. This CT examination was performed using dose optimization techniques as appropriate, variously including the following: *Automated exposure control *Adjustment of mA and/or kV according to patient size (this includes techniques or standardized protocols for targeted exams where dose is matched to indication/reason for exam; i.e. extremities or head) *Use of iterative reconstruction technique DLP: 562 mGy-cm FINDINGS: LUNG BASES: Minimal dependent atelectasis. Coronary artery calcifications are present. LIVER, GALLBLADDER, AND BILIARY TREE: The liver is normal in size, shape, and attenuation. No focal hepatic lesion or biliary ductal dilatation is identified on this noncontrast exam. Gallbladder is grossly unremarkable. PANCREAS: Unremarkable. SPLEEN: Unremarkable. ADRENAL GLANDS: Somewhat thickened appearance bilaterally, unchanged from prior. KIDNEYS AND URETERS: No hydronephrosis or obstructing calculus identified bilaterally. Numerous scattered small calcifications again noted throughout the kidneys. There is a suspected small hyperdense cyst in the right upper pole. BLADDER: Mildly distended and grossly unremarkable. GASTROINTESTINAL TRACT: No evidence of bowel obstruction. There is colonic diverticulosis without convincing diverticulitis. Large amount of stool in the distal sigmoid colon is similar to prior. No free fluid or free air is seen. ABDOMINAL WALL: No significant hernia is appreciated. LYMPH NODES: Normal. VASCULAR: There is atherosclerotic calcification along the aorta and iliac arteries. There is focal dilation of the infrarenal aorta to approximately 4.1 cm. PELVIC VISCERA: Patient is status post hysterectomy. OSSEOUS STRUCTURES: Degenerative changes are noted in the spine. IMPRESSION: 1. No acute findings identified in the abdomen/pelvis. No hydronephrosis or obstructing calculus identified. Multiple bilateral renal calculi redemonstrated. Of note, there is significantly limited in evaluation for pyelonephritis without intravenous contrast. Assessment & Plan Assessment & Plan (1) Nephrolithiasis: Code(s): N20.0 - Calculus of kidney Category: Medical (2) Pyelonephritis: Code(s): N12 - Tubulo-interstitial nephritis, not specified as acute or chronic Category: Medical (3) Flank pain: Code(s): R10.9 - Unspecified abdominal pain Category: Medical Plan urine c/s, monitor kidneys, renal US in 6 months Orders: Orders AMB Post Void Residual by ultrasound 03/05/24 Z13.9 - Encounter for screening, unspecified Urine Culture 03/05/24 N39.0 - Urinary tract infection, site not specified AMB Urinalysis Automated 03/05/24 Z13.9 - Encounter for screening, unspecified Patient Instructions: The patient had an opportunity to ask questions regarding treatment plan. The patient expressed understanding and agreement with the above treatment plan. The patient is aware they should contact our office by phone for worsening of their current condition or the appearance of new symptoms. Compliance is encouraged with any medications and followup testing that is ordered. It is a privilege to be allowed the opportunity to participate in the urologic care of your patient. If you have any questions or concerns regarding treatment for the above conditions please do not hesitate to contact me. The office telephone contact is [phone]. This note is constructed in part using voice recognition software. While every effort has been made to ensure accuracy microsoft bi consultant errors may have been included. Yours sincerely, Cy Hutchison MD Coding Level of Care Code Est Pt Level 4 (99352) Diagnoses Nephrolithiasis N20.0 Pyelonephritis N12 Flank pain R10.9 CPT Codes Post Residual Void - PVR CPT Code: 62497-Qgpr Void Residual by ultrasound ([id number])
--- OUTSIDE RECORDS SUMMARY | 2024-03-05 09:10 | XMS_ITS | Continuity of Care Document ---
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 Name Role Phone Ashley Morales MD Primary Care Physician Encounter [facility] [place] Date(s): 02/22/24 - 02/24/[address] [address]- Encounter Diagnosis Pyelonephritis(Final) - 02/22/24 Discharge Disposition: A-D/C Home Attending Physician: Steve Russo MD Admitting Physician: Stephane Guallpa MD Referring Physician: Not on Staff, Referring MD Allergies, Adverse Reactions, Alerts Substance Reaction Severity Status ciprofloxacin Active ibuprofen Active simvastatin Active sulfa drugs Nausea and vomiting Active cefTRIAXone Acute diarrhea Active metFORMIN Acute diarrhea Active azithromycin Nausea and vomiting status: disruptive effects Active cephalexin Nausea and vomiting Active sertraline Anxiety Active citalopram Active Nitrofurantoin Monohydrate/Macrocrystals Active penicillin Rash Active atorvastatin Active repaglinide Nausea and vomiting Active pioglitazone Active rosuvastatin 1 Active Cefuroxime Axetil Acute diarrhea Active oxyCODONE Active levoFLOXacin 2 [...] vac 08/12/20 Recorded SARS-CoV-2 (COVID-19) mRNA [id number] [facility] 07/22/20 Recorded tetanus/diphtheria/pertussis, acel(Tdap) 02/10/15 Recorded [...] 02/24/22 16:24:00 EDT, Route to Pharmacy Electronically, [facility], Partial fill upon patient request if the prescription is for a schedule II opioi... Start Date: 02/24/22 Status: Ordered BD PEN NEEDL MIS [id number] [place] BD PEN NEEDL MIS [id number] [place], 0 Refills, Maintenance, 09/18/22 15:29:00 EDT [...] oral capsule 100 mg, Capsule, By Mouth, 02/24/24 9:00:00 EDT Start Date: 02/24/24 Stop Date: 02/24/24 Status: Completed glycerin adult rectal suppository 1 [...] oral tablet 40 mg, Tablet, By Mouth, 02/23/24 9:00:00 EDT Start Date: 02/23/24 Stop Date: 02/23/24 Status: Completed lisinopril 40 mg oral tablet [...] release 50 mg, XL Tablet, By Mouth, 02/23/24 9:00:00 EDT Start Date: 02/23/24 Stop Date: 02/23/24 Status: Completed Milk of Magnesia 8% oral [...] opioid drug. Start Date: 09/18/22 Status: Ordered PreserVision 1 tablet, By Mouth, Daily, 0 Refills, Maintenance, 02/22/24 10:35:00 EDT, Partial fill upon patientrequest if the prescription is for a schedule II opioid drug. Start Date: 02/22/24 Status: Ordered rosuvastatin 20 mg oral capsule 1 capsule = 20 mg, By Mouth, Daily, # 90 capsule, 1 Refills, Maintenance, 01/27/22 10:57:00 EDT, Capsule, [facility] 3, Partial fill upon patient request [...] Tresiba FlexTouch 100 units/mL subcutaneous solution = 10 units, Subcutaneous Injection, Daily at bedtime, 0 Refills, Maintenance, 11/04/22 12:38:00 EDT, Partial [...] Exam Date Time Procedure Performing Provider Status 02/22/24 1:02 AM Hand Min 3 Views Right Sam Nunn ph; Auth (Verified) Notes: (Hand Min 3 Views Right) Reason For Exam: Pain RESULT: Hand Min 3 Views Right Hand Min 3 Views Right, 3 views HX OF PRESENT ILLNESS: Pt coming from [facility]. Pt diagnosed w UTI last week, on cefuroxime 250mg, pt isnow c o heamturia and dizziness.; Reason: Pain; Clinical Question(s): Fracture COMPARISON: None. FINDINGS: Decreased bone density. No acute fracture or dislocation. IMPRESSION: No acute process I have personally reviewed the images and I agree with this report. WSN: [id number] Ordering Physician: Argelia Francis Dictated By: Mae Law MD Dictated Date/Time: 02/22/24 9:37 am Reviewed By: Junito Rivera MD Signed By: Junito Rivera MD Signed Date/Time: 02/22/24 9:42 am Transcribed By: FERMIN Transcribed Date/Time: 02/22/24 9:31 am * Exam Date Time Procedure Performing Provider Status 02/22/24 3:[address] Abdomen and Pelvi s W/O Contrast Judie Becker; Auth (Verified) Notes: (CT Abdomen and Pelvis W/O Contrast) Reason For Exam: Flank pain, kidney stone suspected;Other: RESULT: CT Abdomen and Pelvis W/O Contrast CT Abdomen and Pelvis W/O Contrast Hx of Present Illness: Pt coming from [facility]. Pt diagnosed w UTI last week, on cefuroxime 250mg, pt isnow c o heamturia and dizziness.; Reason: Flank pain, kidney stone suspected; Clinical Question(s):Calculus; Left Side flank TECHNIQUE: Spiral CT through the abdomen and pelvis without IV contrast formatted in 3 planes. Thisstudy was performed without oral contrast. Weight- based protocol using automatic tube modulation was used to optimize exposure parameters. CTDIvol Body: 4.70 mGy, DLP Body: 229 mGy*cm. 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 Visualized Chest: Dependent atelectasis. No pleural effusion. Diaphragm: Partially imaged. Intact. Liver: Partially imaged. Otherwise unremarkable. Gallbladder: No CT evidence of gallbladder pathology. Bile ducts: No biliary ductal dilation. Spleen: Normal. Pancreas: Normal. Adrenal glands: Unchanged mild thickening of the bilateral adrenal glands without discrete nodule. Kidneys and ureters: Partially duplicated right collecting system. Bilateral renal cortical thinning and cortical scarring in the left lower pole. Unchanged minimal left hydronephrosis with associated mild suspect urothelial thickening with mild stranding fat stranding. No evidence of obstructing stone. There is also minimal suspected urothelial thickening and fat stranding involving the inferiormoiety of the right renal pelvis. No evidence of obstructing stone. Bilateral nonobstructing renal stones measuring up to 0.6 cm on the left. No noncontrast evidence of suspicious masses. Tiny parenchymal calcification in the upper pole of the right kidney (201:21). Bladder: Normal. Reproductive organs: Status post hysterectomy. 12 mm hyperdense nodule along the posterior aspect of the vaginal cuff is unchanged from 11/16/2022 (201:111), likely benign. Stomach, small bowel, and large bowel: Unremarkable stomach and small bowel. Large stool retention throughout the colon, most prominent within the sigmoid colon and rectum. Associated distention of the sigmoid colon and rectum measuring up to 8.2 cm in diameter, similar to prior. No significant wall thickening. No evidence of bowel obstruction. Colonic diverticulosis without evidence of acute diverticulitis. Appendix: Not seen, but no evidence of appendicitis. Peritoneum and retroperitoneum: No ascites or pneumoperitoneum. No omental or mesenteric lesions. Lymph nodes: No enlarged lymph nodes. Blood vessels: Severe atherosclerotic vascular calcification. Infrarenal abdominal aortic aneurysm measuring 3.7 cm (202:53), not significantly changed from 202. Abdominal and pelvic wall: Unremarkable. Bones: No acute abnormality. Diffuse osteopenia. Degenerative changes throughout the spine most advanced at L5-S1.. Degenerative changes of both hips. IMPRESSION: No acute abnormality of the abdomen or pelvis to explain symptoms. Unchanged minimal left hydronephrosis with associated mild urothelial thickening of the left collecting system and right lower collecting system with surrounding fat stranding. No evidence of obstructing stone. Please consider correlation with urinalysis and urine cytology if clinically appropriate. Bilateral nonobstructing renal stones. Unchanged infrarenal abdominal aortic aneurysm measuring up to 3.7 cm. Larger stool retention in the sigmoid colon and rectum without associated colonic wall thickening. I have personally reviewed the images and I agree with this report. WSN: [id number] Ordering Physician: Argelia Francis Dictated By: Etta Romano MD Dictated Date/Time: 02/22/24 7:32 am Reviewed By: Antwan Mcneill MD Signed By: Antwan Mcneill MD Signed Date/Time: 02/22/24 7:37 am Transcribed By: FERMIN Transcribed Date/Time: 02/22/24 4:53 am Vital Signs Most recent to oldest [Reference Range]: 1 2 3 4 Height 160.02 cm (02/24/24 7:57 AM) 160.02 cm (02/23/24 8:00 AM) 160.02 cm (02/22/24 8:14 PM) Weight 57 kg (02/22/24 10:37 AM) Oxygen Saturation [94-100 %] 93 % *L* (02/24/24 7:57 AM) 91 % *L* (02/23/24 7:00 PM) 97 % (02/23/24 8:00 AM) Pulse Rate [55-90 bpm] 60 bpm (02/24/24 7:57 AM) 60 bpm (02/23/24 7:00 PM) 61 bpm (02/23/24 9:12 AM) Body Mass Index [18.5-24.99 kg/m2] 22.26 kg/m2 (02/22/24 10:37 AM) Blood Pressure [90-138/55-84 mm Hg] 156/64mm Hg *H* (02/24/24 7:57 AM) 146/65mm Hg *H* (02/23/24 7:00 PM) 158/90mm Hg *H* (02/23/24 9:12 AM) 158/90mm Hg *H* (02/23/24 9:12 AM) Respiratory Rate [16-30 br/min] 16 br/min (02/24/24 9:20 AM) 16 br/min (02/24/24 8:20 AM) 16 br/min (02/24/24 7:57 AM) Temperature [96.8-100.4 DegF] 98.2 DegF (02/24/24 7:57 AM) 98.5 DegF (02/23/24 7:00 PM) 98.7 DegF (02/23/24 8:00 AM) Mode of Delivery (Oxygen) Room air (02/24/24 7:57 AM) Room air (02/23/24 7:00 PM) Room air (02/23/24 8:00 AM) Blood pressure sites Arm, right (02/24/24 7:57 AM) Arm, right (02/23/24 7:00 PM) Arm, left (02/23/24 8:00 AM) Temperature Route Oral (02/24/24 7:57 AM) Oral (02/23/24 7:00 PM) Oral (02/23/24 8:00 AM) Dry Weight 57 kg (02/22/24 10:37 AM) Social History Social History Type Response Tobacco Use: 4 or less cigar ettes(less than 1/4 pack)/day in last 30 days. Sex Admission evaluation note * Jo Hsu MD: PERFORM Event Display: Admission Note Authored Date: Patient: ??SARA JOSHI ? Age:??78 Years?Sex:??Female?:??1945?? Chief Complaint/Reason for Consultation Pt coming from [facility]. Pt diagnosed w/ UTI last week, on cefuroxime 250mg, pt is now c/o heamturia anddizziness. History of Present Illness This is an 78-year-old female with history of??UTI, nephrolithiasis, dementia presenting to the emergency room??with complaints of hematuria and left flank pain??going on for few days duration. ??Patient was being treated for??UTI as outpatient with cefuroxime??however started having more pain in the left flank area and also noticed that??blood in urine and hence was sent to the ED for evaluation.?Denies having any fever or chills.?? States has a lot of allergies.?Afebrile in the emergency room with rest of the vital stable.?? No leukocytosis noted. ??UA??was only minimally abnormal.?? Given her complaints ofLeft flank pain CT abdomen was done which showed unchanged minimal left hydron ephrosis with mild urothelial thickening of the left collecting system, right collecting system with surrounding fat stranding no evidence of obstructing stone.?? Patient was given 1 dose of IV ceftriaxone in the emergency room??and being admitted for further workup and management. ?? At the time of my visit,??patient seen up in the room.?? Complains of some left??flank and lower??abdominal area pain. ??Denies any nausea or vomiting. ??Has been having complaints of constipation.?? No fever or chills. Reports a lot of allergies to medications. Review of Systems Constitutional:??No , fever, chills, weakness or fatigue. HEENT:??No visual loss, blurred vision, double vision or yellow sclera. No hearing loss, sneezing, congestion, runny nose or sore throat. Skin:??No rash or itching. Gastrointestinal:??No anorexia, nausea, vomiting or diarrhea. No abdominal pain or blood in stool. Genitourinary:??No burning micturition. No urinary frequency or incontinence. Neurologic:??No headache, dizziness, syncope, unilateral weakness, ataxia, numbness or tingling in the extremities. No change in bowel or bladder control. Musculoskeletal:??No muscle pain, back pain, joint pain or stiffness. Hematologic:??No bleeding or bruising. Psychiatric:??No depression or anxiety. Endocrine:??No reports of sweating. No cold or heat intolerance. No polyuria or polydipsia. Objective Measurements?? Height: 160.02 cm (02/22/24) Weight: 57 kg (02/22/24) Dry Weight: 57 kg (02/22/24) Body Mass Index: 22.26 kg/m2 (02/22/24) ? Vital Signs?? Temperature: 97.7 DegF (02/22/24 10:37:00) Temperature Route: Oral (02/22/24 10:37:00) Pulse Rate: 62 bpm (02/22/24 11:54:00) Respiratory Rate: 16 br/min (02/22/24 11:54:00) Systolic Blood Pressure: 132 mm Hg (02/22/24 11:54:00) Diastolic Blood Pressure: 65 mm Hg (02/22/24 11:54:00) Blood pressure sites: Arm, right (02/22/24 10:37:00) Mean Arterial Pressure: 92 mm Hg (02/22/24 10:37:00) Pulse Pressure: 83 mm Hg (02/22/24 10:37:00) Oxygen Saturation: 96 % (02/22/24 08:50:00) Mode of Delivery (Oxygen): Room air (02/22/24 08:50:00) Early Warning Score: 2 (02/22/24 11:56:20) ? Physical Exam Elderly??female not in any acute distress HEENT PERRLA, EOMI Neck supple Chest??clear to auscultation bilaterally Heart S1-S2 regular no murmurs appreciated Abdomen soft, nondistended,??mild??lower abdominal??tenderness present,??left flank area tendernesspresent.?? Bowel sounds present Extremities??no edema pulses present bilaterally Assessment/Plan Diagnoses Pyelonephritis ??(N12) ?? Assessment:??This is an 78-year-old female with history of dementia,??hypertension,??urinary tract infection, kidney stones??presenting to the emergency room with complaints of left flank pain,??lower abdominal pain.??Patient was being treated for urinary tract infection with cefuroxime??however??also started noticing to have blood in urine??and hence came to ED.??In the emergency room patient was noted to be hemodynamically stable,??UADone showed 2+ hemoglobin, CT concerning for possible fat stranding noted,??being admitted for UTI, pyelonephritis, hematuria. ? Abdominal Pain UTI/??pylenephritis left Hematuria recent;y on oral abx for UTI??with cefuroxime, started complaining of??some abdominal pain and left-sided flank pain CT done??with??mild unchanged hydronephrosis and also some stranding noted in the left and the right collecting duct system.?? There is mild tenderness in the left flank area. UA??positive for hemoglobin??only at this time.?? Could be secondary to the recent antibiotic use. Monitor??further hematuria, will hold off on aspirin and Plavix for now. Consider resuming once hematuria resolves. Will place on ceftriaxone, received in the emergency room??without any issues.?? Doubt if cultures will grow anything given the recent antibiotic use. No obstructing urinary stones noted??at this time. Question abdominal pain also from the constipation. ??Will place on??bowel regimen. ?? Diabetes mellitus type 2 Placed on insulin sliding scale??for now. ?? Hypertension??on lisinopril, metoprolol ?? Hypothyroidism on??levothyroxine ?? Hyperlipidemia on statin ?? History of dementia on donepezil Delirium precautions. ?? DVT prophylaxis SCD for now ?? CODE STATUS is full ?? Discussed with patient regarding plan of care all questions answered to their satisfaction. ?? Total Visit Time: I personally spent a total of65 minutes, including both vogl-[id number] and [id number] time on the date of the encounter, addressing the above diagnoses. Activities performed in this time include chart review, obtaining / reviewing history, performing amedically necessary evaluation, documentation and??ordering of medicationsequivalent to medical decision making that is of??high complexity ? Histories Allergies Allergies ?(Active and Proposed [...] effects ? Past Medical History/Problem List Active Problems(7) CAD (coronary artery disease) Cognitive impairment Gout HTN (hypertension) Hypothyroidism SSS (sick sinus syndrome) Type 2 diabetes mellitus ? Past Surgical History ovarian cyst surgery back surgeries ? Social History Alcohol Details:??Use: Never. Substance Abuse Details:??Use: Never. Tobacco Details:??Use: 4 or less cigarettes(less than 1/4 pack)/day in last 30 days. Electronic Cigarette/Vaping Details:??Electronic Cigarette Use: Never. ?? Lives at [facility] ? Family History reviewed and??negative ? Medications Home Medications Acetaminophen (Tylenol 325 [...] degludec (Tresiba FlexTouch 100 units/mL subcutaneous solution)?18?unit(s)?Subcutaneous Injection?Daily at bedtime Levothyroxine (levothyroxine 0.1 mg oral tablet)?1?tab(s)?100?Microgram?By Mouth?Daily Lisinopril (lisinopril 40 mg oral tablet)?1?tab(s)?40?Milligram?By Mouth?Daily Loperamide (loperamide 2 mg oral capsule)?2?Milligram?1?capsule?By Mouth?Daily?as needed?NTE 8 capsules in 24hrs?for loose stool Metoprolol (Metoprolol Succinate ER 25 mg oral tablet, extended release)?2?tab(s)?50?Milligram?By Mouth?Daily Milk of Magnesia (Milk of Magnesia 8% oral suspension)?30?Milliliter?2.4?gram?By Mouth?Daily at bedtime?as needed?for constipation Multivitamin With Minerals (PreserVision)?1?tab(s)?By Mouth?Daily Polyethylene Glycol 3350 (polyethylene glycol 3350 oral powder for reconstitution)?17?gram?By Mouth?2 times a day?as needed?Constipation?dissolve in water or juice before taking Pyridoxine (Vitamin B6 100 mg oral tablet)?1?tab(s)?100?Milligram?By Mouth?Daily Rosuvastatin (rosuvastatin 20 mg oral capsule)?1?capsule?20?Milligram?By Mouth?Daily ? Inpatient Medications Medications (31) Active SCHEDULED: (16) Allopurinol 100 mg Tablet (allopurinol 100 mg oral tablet) ??100 mg, By Mouth, Daily Aspirin 81 mg EC Tablet (aspirin 81 mg oral delayed release tablet) ??81 mg, By Mouth, Daily Ceftriaxone 1 Gm Inj (Ceftriaxone Inj) ??1 Gm, IVPB, Every 24 hours Donepezil 5 mg Tablet (donepezil 5 mg oral tablet) ??5 mg, By Mouth, Daily at bedtime Famotidine 20 mg Tablet (famotidine 20 mg oral tablet) ??20 mg, By Mouth, Daily Gabapentin 100 mg Capsule (gabapentin 100 mg oral capsule) ??100 mg, By Mouth, 2 times a day Insulin Detemir 100 units/mL Inj (Levemir Inj) ??10 units 0.1 mL, Subcutaneous Injection, Daily at bedtime Insulin Lispro 100 units/mL Inj (Insulin LISPRO Sliding Scale) ??2-10 units, Subcutaneous Injection, 3 times a day before meals Levothyroxine 100 mcg Tablet (levothyroxine 0.1 mg oral tablet) ??100 mcg, By Mouth, Daily Lisinopril 20 mg Tablet (lisinopril 20 mg oral tablet) ??40 mg, By Mouth, Daily Metoprolol 50 mg XL Tablet (Metoprolol Succinate ER 50 mg oral tablet, extended release) ??50 mg, By Mouth, Daily Multivitamin Therapeutic / Minerals Tablet (Multivit Therapeutic/Minerals Tablet) ??1 tablet, By Mouth, Daily NaCl 0.9% Flush 3ml [...] mcg, By Mouth, Daily CONTINUOUS: (0) PRN: (15) Acetaminophen 325 mg Tablet (Acetaminophen [...] Gm, IV Push Slowly, Every 15 minutes Docusate Sodium 100 mg Capsule (Docusate Sodium Capsule) ??100 mg 1 capsule, By Mouth, 2 times a day Glucagon 1 mg Inj (Glucagon Inj) ??1 mg, Intramuscular, Once Glucose 40% Gel (15 Gm) (Glucose Gel) ??15 Gm, By Mouth, Every 20 minutes Glucose 40% Gel (15 Gm) (Glucose Gel) ??30 Gm, By Mouth, Every 20 minutes Melatonin 3 mg Tablet (Melatonin Tablet) ??3 mg, By Mouth, Daily at bedtime MorPHINE 2 mg Inj Syringe (MorPHINE Inj) ??2 mg, IV Push Slowly, Every 4 hours NaCl 0.9% Flush 3ml (NaCL 0.9% Flush) ??3 mL, IV Push, Every 8 hours Polyethylene Glycol 17 Gm Powder (MiraLax Powder) ??17 Gm 1 pack/packet, By Mouth, Daily Senna Tablet ??8.6 mg 1 tablet, By Mouth, 2 times a day Simethicone 80 mg Chewable Tablet (Simethicone Tablet) ??80 mg, Chew, 3 times a day ? Durable Medical Equipment Discharge recommendations: Home with services (07/07/23) Name of Agency #1: [facility] (07/08/23) Service Categories #1: Physical Therapy (07/08/23) Service Comments #1: A referral was made to [facility] for home physical therapy. Someonewill contact you to arrange a visit within 1-2 days. If you do not hear from anyone, please contactthe agency (07/08/23) Ambulatory devices needed: None (05/16/23) ? Results Recent Labs BLOOD COUNT & DIFF WBC 8.0 k/mm3 ()?? 02/21/2024 23:37 RBC 4.94 m/mm3 ()?? 02/21/2024 23:37 Hgb 13.7 Gm/dL ()?? 02/21/2024 23:37 Hct 43.8 % ()?? 02/21/2024 23:37 MCV 88.7 femtoliters ()?? 02/21/2024 23:37 MCH 27.7 pg ()?? 02/21/2024 23:37 MCHC 31.3 g/dL (Low)?? 02/21/2024 23:37 Platelet Count 200 k/mm3 ()?? 02/21/2024 23:37 RDW-SD 55.3 femtoliters (High)?? 02/21/2024 23:37 MPV 9.4 femtoliters ()?? 02/21/2024 23:37 Nucleated RBC (Automated) 0.0 #/100 WBC'S ()?? 02/21/2024 23:37 Abs. NRBC 0.0 k/mm3 ()?? 02/21/2024 23:37 Abs. Neut 4.7 k/mm3 ()?? 02/21/2024 23:37 Abs. Lymph 2.5 k/mm3 ()?? 02/21/2024 23:37 Abs. [place] 0.5 k/mm3 ()?? 02/21/2024 23:37 Abs. Eo 0.2 k/mm3 ()?? 02/21/2024 23:37 Abs. Baso 0.1 k/mm3 ()?? 02/21/2024 23:37 Neut % 58.3 % ()?? 02/21/2024 23:37 Lymph % 31.3 % ()?? 02/21/2024 23:37 [place] % 6.6 % ()?? 02/21/2024 23:37 Eos % 2.5 % ()?? 02/21/2024 23:37 Baso % 1.0 % ()?? 02/21/2024 23:37 Imm Gran 0.3 % ()?? 02/21/2024 23:37 Abs. Imm Gran 0.0 k/mm3 ()?? 02/21/2024 23:37 ?? CHEM GENERAL Sodium 143 mmol/L ()?? 02/21/2024 23:37 Potassium 4.4 mmol/L ()?? 02/21/2024 23:37 Chloride 107 mmol/L ()?? 02/21/2024 23:37 Bicarbonate Level 27 mmol/L ()?? 02/21/2024 23:37 Anion Gap 9 ()?? 02/21/2024 23:37 Glucose Level 115 mg/dL (High)?? 02/21/2024 23:37 Glucose, POC 117 mg/dL (High)?? 02/22/2024 10:23 BUN 15 mg/dL ()?? 02/21/2024 23:37 Creatinine-Blood 0.78 mg/dL ()?? 02/21/2024 23:37 Estimated GFR Creatinine 77 ML/MIN/1.73 M2 ()?? 02/21/2024 23:37 Alkaline Phosphatase 106 units/L (High)?? 02/21/2024 23:37 AST (SGOT) 21 units/L ()?? 02/21/2024 23:37 ALT (SGPT) 17 units/L ()?? 02/21/2024 23:37 Bilirubin, Total 0.2 mg/dL ()?? 02/21/2024 23:37 ?? UA/URINALYSIS Appear/Color, Urine LIGHT YELLOW ()?? 02/22/2024 02:43 Specific [place], Urine 1.015 ()?? 02/22/2024 02:43 pH, Urine 6.0 ()?? 02/22/2024 02:43 Albumin, Urine NEGATIVE ()?? 02/22/2024 02:43 Glucose, Urine NEGATIVE ()?? 02/22/2024 02:43 Ketones, Urine NEGATIVE ()?? 02/22/2024 02:43 Bilirubin, Urine NEGATIVE ()?? 02/22/2024 02:43 Hemoglobin, Urine 2+ (Abnormal)?? 02/22/2024 02:43 Nitrite, Urine NEGATIVE ()?? 02/22/2024 02:43 Leukocyte, Urine NEGATIVE ()?? 02/22/2024 02:43 Urobilinogen NORMAL mg/dL ()?? 02/22/2024 02:43 WBC's, Urine 1 /HPF ()?? 02/22/2024 02:43 RBC's, Urine 19 /HPF (High)?? 02/22/2024 02:43 Squamous Epith 1 /HPF ()?? 02/22/2024 02:43 Mucus SLIGHT /LPF ()?? 02/22/2024 02:43 ?? URINE OTHER Est Creatinine Clearance 47.59 mL/min ()?? 02/22/2024 11:07 ? Blood Glucose Trend Glucose Level:??115 mg/dL??High (02/21/24 23:37:00) Glucose, POC:??117 mg/dL??High (02/22/24 10:23:00) ? CBC, CBC w/Diff?? CBC?? Differential?? WBC: 8 k/mm3 (23:37) Abs. Neut: 4.7 k/mm3 (23:37) RBC: 4.94 m/mm3 (23:37) Abs. Lymph: 2.5 k/mm3 (23:37) Hct: 43.8 % (23:37) Abs. [place]: 0.5 k/mm3 (23:37) RDW-SD:??55.3 femtoliters??High (23:37) Abs. Eo: 0.2 k/mm3 (23:37) Nucleated RBC (Automated): 0 #/100 WBC'S (23:37) Abs. Baso: 0.1 k/mm3 (23:37) Abs. NRBC: 0 k/mm3 (23:37) Neut %: 58.3 % (23:37) ?? Lymph %: 31.3 % (23:37) ?? [place] %: 6.6 % (23:37) ?? Eos %: 2.5 % (23:37) ?? Baso %: 1 % (23:37) ?? Imm Gran: 0.3 % (23:37) ?? Abs. Imm Gran: 0 k/mm3 (23:37) ? BMP, Mg, and Phos Anion Gap: 9 (23:37) Bicarbonate Level: 27 mmol/L (23:37) BUN: 15 mg/dL (23:37) Chloride: 107 mmol/L (23:37) Creatinine-Blood: 0.78 mg/dL (23:37) Estimated GFR Creatinine: 77 ML/MIN/1.73 M2 (23:37) Glucose Level:??115 mg/dL??High (23:37) Potassium: 4.4 mmol/L (23:37) Sodium: 143 mmol/L (23:37) ?? Coagulation Profile?? No qualifying data available. ?? LFT Alkaline Phosphatase:??106 units/L??High (23:37) ALT (SGPT): 17 units/L (23:37) AST (SGOT): 21 units/L (23:37) Bilirubin, Total: 0.2 mg/dL (23:37) ?? Urinalysis Albumin, Urine: NEGATIVE (02:43) Appear/Color, Urine: LIGHT YELLOW (02:43) Bilirubin, Urine: NEGATIVE (02:43) Est Creatinine Clearance: 47.59 mL/min (11:07) Glucose, Urine: NEGATIVE (02:43) Hemoglobin, Urine: 2+ Abnormal (02:43) Hold Urine Culture: Testing available 48 hours from time of collection. (02:43) Ketones, Urine: NEGATIVE (02:43) Leukocyte, Urine: NEGATIVE (02:43) Mucus: SLIGHT (02:43) Nitrite, Urine: NEGATIVE (02:43) pH, Urine: 6 (02:43) RBC's, Urine:??19 /HPF??High (02:43) Specific [place], Urine: 1.015 (02:43) Squamous Epith: 1 /HPF (02:43) Urobilinogen: NORMAL (02:43) WBC's, Urine: 1 /HPF (02:43) ? Blood Gases?? No qualifying data available. ?? Uric/LDH?? No qualifying data available. ? Image ?CT Abdomen and Pelvis W/O Contrast??02/22/2024 03:30 by Judie Becker ? Hospital Progress note * Keyanna Robledo RN: PERFORM, SIGN, VERIFY Event Display: Progress Note Hospital Authored Date: Patient: SARA JOSHI Age: 78 years Sex: Female : 1945 Associated Diagnoses: None Author: Keyanna Robledo RN Findings Problem Related to Alteration in Genitourinary : Alteration in Genitourinary Function/new 02/24/2024 7:00 EDT Alteration in Status Related to UTI, Other: pylelonephritis Goals & Outcomes, Genitourinary Pt will achieve normal/improved fluid balance, Pt will maintainadequate GI function appropriate for pt, Pt will maintain adequate function appropriate for pt, Pt will maintain normal fluid balance, Pt will resume normal pattern of elimination, Pt/caregiver will state understanding of self-care skills Interventions, Assess/monitor/maintain Genitourinary status BH Goals/Interventions, Genitourinary Yes Genitourinary, Problem Start 02/22/2024 6:01 Reviewed Plan with, Genitourinary Patient Patient Progression, Genitourinary Patient progressing according to plan Genitourinary, Problem Ongoing Yes . Nursing Data Vital Signs : VITAL SIGNS SECTION 02/24/2024 7:57 EDT Temperature 98.2 DegF Temperature Route Oral Pulse Rate 60 bpm Respiratory Rate 16 br/min Systolic Blood Pressure 156 mm Hg H Diastolic Blood Pressure 64 mm Hg Blood pressure sites Arm, right Mean Arterial Pressure 95 mm Hg Pulse Pressure 92 mm Hg Oxygen Saturation 93 % L Mode of Delivery (Oxygen) Room air . Narrative/Incidental Patient is alert and oriented, with transient confusion that requires some reorienting. Pt does notdisplay and unsafe behaviors, she rings appropriately, and awaits for assistance before she gets upand out of bed. VSS and WNL, patient is transferring with an assist of one. Steady on her feet, Groin is still slightly excoriated along with the skin under her breast b/l. Pt is discharging today back to [facility]. Care plan met. . Discharge Information Rehabilitation Discharge : Rehab Discharge Index 02/23/2024 13:39 EDT Comments on treatment indicated 78 y/o F c PMH of dementia presented to ED withcomplaints of hematuria and left flank pain. PT f/u for ther ex, bed mob, transfers, gait, and balance. Rec home c services. Cane: distance >50 Distance pt will ambulate 300 ft Full chart review completed Yes Hospital course see comment Plan of care PT Gait training, Transfer training, Therapeutic exercise, Functional Activities, Balance training, Neuromuscular education * Stephy Mendieta RN: PERFORM, SIGN, VERIFY Event Display: Progress Note Hospital Authored Date: Patient: SARA JOSHI Age: 78 years Sex: Female : 1945 Associated Diagnoses: None Author: Stephy Mendieta RN Findings Problem Related to Alteration in Genitourinary : Alteration in Genitourinary Function/new 02/23/2024 23:00 EDT Alteration in Status Related to UTI, Other: pylelonephritis Goals & Outcomes, Genitourinary Pt will achieve [...] BH Goals/Interventions, Genitourinary Yes Genitourinary, Problem Start 02/22/2024 6:01 Reviewed Plan with, Genitourinary Patient Patient Progression, Genitourinary Patient progressing according to plan Genitourinary, Problem Ongoing Yes . Narrative/Incidental pt a/o x3, able to express needs, slightly forgetful but able to be easily redirectable. denies pain. pt sleeping throughout the night, hourly rounding performed for safety. pt pain and safety needs met.. Discharge Information Rehabilitation Discharge : Rehab Discharge Index 02/23/2024 13:39 EDT Comments on treatment indicated 78 y/o F c PMH of dementia presented to ED withcomplaints of hematuria and left flank pain. PT f/u for ther ex, bed mob, transfers, gait, and balance. Rec home c services. Cane: distance >50 Distance pt will ambulate 300 ft Full chart review completed Yes Hospital course see comment Plan of care PT Gait training, Transfer training, Therapeutic exercise, Functional Activities, Balance training, Neuromuscular education * Tramaine Willis MD: PERFORM Event Display: Progress Note Hospital Authored Date: Patient: ??SARA JOSHI ? Age:??78 Years?Sex:??Female?:??1945?? Subjective Patient is seen and examined at bedside. ??Overnight events reviewed. She is pleasantly forgetful. ??Denies any abdominal pain or??flank pain anymore. Discussed with urology-okay to follow-up as outpatient. it investment/portfolio manager was paged??about discharge needs. Waiting for PT eval. Review of Systems A full review of systems was completed and is otherwise negative except as mentioned above. Objective Measurements?? Height: 160.02 cm (02/23/24) Weight: 57 kg (02/22/24) Dry Weight: 57 kg (02/22/24) Body Mass Index: 22.26 kg/m2 (02/22/24) ? Vital Signs?? Temperature: 98.7 DegF (02/23/24 08:00:00) Temperature Route: Oral (02/23/24 08:00:00) Pulse Rate: 61 bpm (02/23/24 09:12:00) Respiratory Rate: 16 br/min (02/23/24 10:12:00) Systolic Blood Pressure:??158 mm Hg??High (02/23/24 09:12:00) Systolic Blood Pressure:??158 mm Hg??High (02/23/24 09:12:00) Diastolic Blood Pressure:??90 mm Hg??High (02/23/24 09:12:00) Diastolic Blood Pressure:??90 mm Hg??High (02/23/24 09:12:00) Blood pressure sites: Arm, left (02/23/24 08:00:00) Mean Arterial Pressure: 113 mm Hg (02/23/24 08:00:00) Pulse Pressure: 68 mm Hg (02/23/24 08:00:00) Oxygen Saturation: 97 % (02/23/24 08:00:00) Mode of Delivery (Oxygen): Room air (02/23/24 08:00:00) Early Warning Score: 0 (02/23/24 14:18:44) ? Physical Exam General:??Alert, awake, not in?? acute cardiopulmonary distress. Respiratory:??Clear to auscultation??. No wheezing, rales or rhonchi. Cardiovascular:??Heart sounds normal. Regular rate and rhythm, no murmurs Gastrointestinal:??Abdomen soft, non-tender, non-distended. Normal bowel sounds. Neurologic:??Cranial nerves II-XII grossly intact. No focal neurological deficits.?? Skin:??No rashes or lesions. No edema. Musculoskeletal:??No cyanosis or clubbing. No gross deformities. _ Inpatient Medications Medications (33) Active SCHEDULED: (18) Allopurinol 100 mg Tablet (allopurinol 100 mg oral tablet) ??100 mg, By Mouth, Daily Aspirin 81 mg EC Tablet (aspirin 81 mg oral delayed release tablet) ??81 mg, By Mouth, Daily Bisacodyl 10 mg Suppository (Bisacodyl Supp) ??10 mg 1 supp, Rectally, Once Ceftriaxone 1 Gm Inj (Ceftriaxone Inj) ??1 Gm, IVPB, Every 24 hours Donepezil 5 mg Tablet (donepezil 5 mg oral tablet) ??5 mg, By Mouth, Daily at bedtime Famotidine 20 mg Tablet (famotidine 20 mg oral tablet) ??20 mg, By Mouth, Daily Gabapentin 100 mg Capsule (gabapentin 100 mg oral capsule) ??100 mg, By Mouth, 2 times a day Insulin Detemir 100 units/mL Inj (Levemir Inj) ??10 units 0.1 mL, Subcutaneous Injection, Daily at bedtime Insulin Lispro 100 units/mL Inj (Insulin LISPRO Sliding Scale) ??2-10 units, Subcutaneous Injection, 3 times a day before meals Lactulose 20 Gm/30mL Syrup (lactulose 10 gm/15 ml oral syrup) ??20 Gm 30 mL, By Mouth, Once Levothyroxine 100 mcg Tablet (levothyroxine 0.1 mg oral tablet) ??100 mcg, By Mouth, Daily Lisinopril 20 mg Tablet (lisinopril 20 mg oral tablet) ??40 mg, By Mouth, Daily Metoprolol 50 mg XL Tablet (Metoprolol Succinate ER 50 mg oral tablet, extended release) ??50 mg, By Mouth, Daily Multivitamin Therapeutic / Minerals Tablet (Multivit Therapeutic/Minerals Tablet) ??1 tablet, By Mouth, Daily NaCl 0.9% Flush 3ml [...] mcg, By Mouth, Daily CONTINUOUS: (0) PRN: (15) Acetaminophen 325 mg Tablet (Acetaminophen [...] Gm, IV Push Slowly, Every 15 minutes Docusate Sodium 100 mg Capsule (Docusate Sodium Capsule) ??100 mg 1 capsule, By Mouth, 2 times a day Glucagon 1 mg Inj (Glucagon Inj) ??1 mg, Intramuscular, Once Glucose 40% Gel (15 Gm) (Glucose Gel) ??15 Gm, By Mouth, Every 20 minutes Glucose 40% Gel (15 Gm) (Glucose Gel) ??30 Gm, By Mouth, Every 20 minutes Melatonin 3 mg Tablet (Melatonin Tablet) ??3 mg, By Mouth, Daily at bedtime MorPHINE 2 mg Inj Syringe (MorPHINE Inj) ??2 mg, IV Push Slowly, Every 4 hours NaCl 0.9% Flush 3ml (NaCL 0.9% Flush) ??3 mL, IV Push, Every 8 hours Polyethylene Glycol 17 Gm Powder (MiraLax Powder) ??17 Gm 1 pack/packet, By Mouth, Daily Senna Tablet ??8.6 mg 1 tablet, By Mouth, 2 times a day Simethicone 80 mg Chewable Tablet (Simethicone Tablet) ??80 mg, Chew, 3 times a day ? 72 Hour Antibiotic History Active Antibiotics Calendar Day Last Administered First Administered Ceftriaxone??1 Gm, 100 mL/hr, IVPB, Every 24 hours ?1 02/23/2024 05:53 02/23/2024 05:53 ? Stopped Antibiotics Stop Date/Time Last Administered First Administered Ceftriaxone??1 Gm, 100 mL/hr, IVPB, Once 02/22/2024 06:11 02/22/2024 06:09 02/22/2024 06:09 ? Results Recent Labs BACTERIOLOGY Urine Culture Results Final report ()?? 02/22/2024 02:43 Urine Culture Isolate 1 No growth ()?? 02/22/2024 02:43 ?? BLOOD COUNT & DIFF WBC 8.0 k/mm3 ()?? 02/21/2024 23:37 RBC 4.94 m/mm3 ()?? 02/21/2024 23:37 Hgb 13.7 Gm/dL ()?? 02/21/2024 23:37 Hct 43.8 % ()?? 02/21/2024 23:37 MCV 88.7 femtoliters ()?? 02/21/2024 23:37 MCH 27.7 pg ()?? 02/21/2024 23:37 MCHC 31.3 g/dL (Low)?? 02/21/2024 23:37 Platelet Count 200 k/mm3 ()?? 02/21/2024 23:37 RDW-SD 55.3 femtoliters (High)?? 02/21/2024 23:37 MPV 9.4 femtoliters ()?? 02/21/2024 23:37 Nucleated RBC (Automated) 0.0 #/100 WBC'S ()?? 02/21/2024 23:37 Abs. NRBC 0.0 k/mm3 ()?? 02/21/2024 23:37 Abs. Neut 4.7 k/mm3 ()?? 02/21/2024 23:37 Abs. Lymph 2.5 k/mm3 ()?? 02/21/2024 23:37 Abs. [place] 0.5 k/mm3 ()?? 02/21/2024 23:37 Abs. Eo 0.2 k/mm3 ()?? 02/21/2024 23:37 Abs. Baso 0.1 k/mm3 ()?? 02/21/2024 23:37 Neut % 58.3 % ()?? 02/21/2024 23:37 Lymph % 31.3 % ()?? 02/21/2024 23:37 [place] % 6.6 % ()?? 02/21/2024 23:37 Eos % 2.5 % ()?? 02/21/2024 23:37 Baso % 1.0 % ()?? 02/21/2024 23:37 Imm Gran 0.3 % ()?? 02/21/2024 23:37 Abs. Imm Gran 0.0 k/mm3 ()?? 02/21/2024 23:37 ?? CHEM GENERAL Sodium 143 mmol/L ()?? 02/21/2024 23:37 Potassium 4.4 mmol/L ()?? 02/21/2024 23:37 Chloride 107 mmol/L ()?? 02/21/2024 23:37 Bicarbonate Level 27 mmol/L ()?? 02/21/2024 23:37 Anion Gap 9 ()?? 02/21/2024 23:37 Glucose Level 115 mg/dL (High)?? 02/21/2024 23:37 Glucose, POC 169 mg/dL (High)?? 02/23/2024 11:41 BUN 15 mg/dL ()?? 02/21/2024 23:37 Creatinine-Blood 0.78 mg/dL ()?? 02/21/2024 23:37 Estimated GFR Creatinine 77 ML/MIN/1.73 M2 ()?? 02/21/2024 23:37 Alkaline Phosphatase 106 units/L (High)?? 02/21/2024 23:37 AST (SGOT) 21 units/L ()?? 02/21/2024 23:37 ALT (SGPT) 17 units/L ()?? 02/21/2024 23:37 Bilirubin, Total 0.2 mg/dL ()?? 02/21/2024 23:37 ?? UA/URINALYSIS Appear/Color, Urine LIGHT YELLOW ()?? 02/22/2024 02:43 Specific [place], Urine 1.015 ()?? 02/22/2024 02:43 pH, Urine 6.0 ()?? 02/22/2024 02:43 Albumin, Urine NEGATIVE ()?? 02/22/2024 02:43 Glucose, Urine NEGATIVE ()?? 02/22/2024 02:43 Ketones, Urine NEGATIVE ()?? 02/22/2024 02:43 Bilirubin, Urine NEGATIVE ()?? 02/22/2024 02:43 Hemoglobin, Urine 2+ (Abnormal)?? 02/22/2024 02:43 Nitrite, Urine NEGATIVE ()?? 02/22/2024 02:43 Leukocyte, Urine NEGATIVE ()?? 02/22/2024 02:43 Urobilinogen NORMAL mg/dL ()?? 02/22/2024 02:43 WBC's, Urine 1 /HPF ()?? 02/22/2024 02:43 RBC's, Urine 19 /HPF (High)?? 02/22/2024 02:43 Squamous Epith 1 /HPF ()?? 02/22/2024 02:43 Mucus SLIGHT /LPF ()?? 02/22/2024 02:43 ?? URINE OTHER Est Creatinine Clearance 47.59 mL/min ()?? 02/22/2024 11:07 ? Assessment/Plan 78-year-old female with history of dementia,??hypertension,??urinary tract infection, kidney stones??presenting to the emergency room with complaints of left flank pain,??lower abdominal pain.??Patient was being treated for urinary tract infection with cefuroxime??however??also started noticing to have blood in urine??and hence came to ED.??In the emergency room patient was noted to be hemodynamically stable,??UADone showed 2+ hemoglobin, CT concerning for possible fat stranding noted,??being admitted for UTI, pyelonephritis, hematuria. ? Abdominal pain (R10.9) Pyelonephritis (N12) Hematuria (R31.9) Constipation (K59.00) recent;y on oral abx for UTI??with cefuroxime, started complaining of??some abdominal pain and left-sided flank pain CT done??with??mild unchanged hydronephrosis and also some stranding noted in the left and the right collecting duct system.?? There is mild tenderness in the left flank area. UA??positive for hemoglobin??only at this time.?? Could be secondary to the recent antibiotic use. Monitor??further hematuria, resumed aspirin; will hold off on Plavix for now. Consider resuming once hematuria resolves. on ceftriaxone,no issues so far.?? Doubt if cultures will grow anything given the recent antibioticuse. No obstructing urinary stones noted??at this time. Given mild hydronephrosis and recurrent renal sones- consulted urologist- discussed with Dr Reji bennett for discharge and outpatient f/u. ? Diabetes mellitus type 2 Placed on insulin sliding scale??for now. ?? Hypertension??on lisinopril, metoprolol ?? Hypothyroidism on??levothyroxine ?? Hyperlipidemia on statin ?? History of dementia on donepezil Delirium precautions. ?? DVT prophylaxis SCD for now ?? CODE STATUS is full ?? PT eval pending.?? Family able to meat pickler patient??tomorrow. CM informed. If patient remains stable??will be able to discharge tomorrow. Note * Keyanna Robledo RN: PERFORM Event Display: Discharge/Transfer Note Hospital Authored Date: [id number] Nursing Discharge Note Entered On: 02/24/2024 18:49 EDT Performed On: 02/24/2024 18:48 EDT by Keyanna Robledo RN Nursing Discharge Note 2 Discharge Time : 02/24/2024 18:40 EDT Discharge Level of Care at Discharge : Homehealth/VNA Discharge VNA/Hospice/Home Care(v001) : [facility] [phone] Patient Left Unit Via : Wheelchair Patient Accompanied Off Unit with : Ambulance/Chair Van Personnel Handover Given to Transport Personnel : Yes DC Instructions Provided & Signed by Pt : Unable Patient Understands D/C Instructions : Yes Patient Instructions Discharge Signed : Yes Venkat BUTLER, Keyanna - 02/24/2024 18:48 EDT * Steve Russo MD: PERFORM Event Display: Discharge/Transfer Note Hospital Authored Date: Patient: ??SARA JOSHI ? Age:??78 Years?Sex:??Female?:??1945?? Patient Information Discharge Location: [facility] Primary Care Physician: Ashley Morales MD Admit Date/Time: 02/22/24 06:01 Discharge Disposition Discharge Disposition: Home with Home Health Discharge Diagnosis Pyelonephritis (N12) Abdominal pain (R10.9) Hematuria (R31.9) Constipation (K59.00) _ Discharge Medications Acetaminophen (Tylenol 325 mg [...] insulin degludec (Tresiba FlexTouch 100 units/mL subcutaneous solution)?10?unit(s)?Subcutaneous Injection?Daily at bedtime Levothyroxine (levothyroxine 0.1 mg oral tablet)?1?tab(s)?100?Microgram?By Mouth?Daily Lisinopril (lisinopril 40 mg oral tablet)?1?tab(s)?40?Milligram?By Mouth?Daily Loperamide (loperamide 2 mg oral capsule)?2?Milligram?1?capsule?By Mouth?Daily?as needed?NTE 8 capsules in 24hrs?for loose stool Metoprolol (Metoprolol Succinate ER 25 mg oral tablet, extended release)?2?tab(s)?50?Milligram?By Mouth?Daily Milk of Magnesia (Milk of Magnesia 8% oral suspension)?30?Milliliter?2.4?gram?By Mouth?Daily at bedtime?as needed?for constipation Multivitamin With Minerals (PreserVision)?1?tab(s)?By Mouth?Daily Polyethylene Glycol 3350 (polyethylene glycol 3350 oral powder for reconstitution)?17?gram?By Mouth?2 times a day?as needed?Constipation?dissolve in water or juice before taking Pyridoxine (Vitamin B6 100 mg oral tablet)?1?tab(s)?100?Milligram?By Mouth?Daily Rosuvastatin (rosuvastatin 20 mg oral capsule)?1?capsule?20?Milligram?By Mouth?Daily ? Medications Started none Medications Discontinued none Doses Changed none Hospital Course ??78-year-old female with history of dementia,??hypertension,??urinary tract infection, kidney stones??presenting to the emergency room with complaints of left flank pain,??lower abdominal pain.??Patient was being treated for urinary tract infection with cefuroxime??however??also started noticing to have blood in urine??and hence came to ED.??In the emergency room patient was noted to be hemodynamically stable,??UADone showed 2+ hemoglobin, CT concerning for possible fat stranding noted,??beingadmitted for UTI, pyelonephritis, hematuria. ?? She was treated for: ?? Abdominal pain (R10.9): Resolved Pyelonephritis (N12): Resolved Hematuria (R31.9): Resolved Constipation (K59.00): Resolved recent;y on oral abx for UTI??with cefuroxime, started complaining of??some abdominal pain and left-sided flank pain CT done??with??mild unchanged hydronephrosis and also some stranding noted in the left and the right collecting duct system.?? There is mild tenderness in the left flank area. UA??positive for hemoglobin??only at this time.?? Patient started on IV ceftriaxone.?? Urine culture no growth.?? Patient received po abx an outpatient as well as ceftriaxone here. completed the course, ??Will call??hold off further antibiotics. Hematuria resolved. Resumed??Plavix. No obstructing urinary stones noted??at this time. Given mild hydronephrosis and recurrent renal sones- consulted urologist-?? previous hospitalist discussed with Dr Reji bennett for discharge and outpatient f/u. On the day of discharge: Patient is doing fine. ??Denied any pain.?? No hematuria.?? No fever. ??Noleukocytosis.?? She is tolerating p.o. diet. Follow-up with urology as an outpatient. ?? Diabetes mellitus type 2 Decrease the dose of the Tresiba to 10??units at bedtime??because of hypoglycemia.?? Now no more hypoglycemia patient is doing okay. Continue the same on discharge ?? Hypertension??on lisinopril, metoprolol ?? Hypothyroidism on??levothyroxine ?? Hyperlipidemia on statin ?? History of dementia on donepezil mental status at the baseline now Objective Assessment and Plan Discharge Planning:? Measurements?? Height: 160.02 cm (02/24/24) Weight: 57 kg (02/22/24) Dry Weight: 57 kg (02/22/24) Body Mass Index: 22.26 kg/m2 (02/22/24) ? Vital Signs?? Temperature: 98.2 DegF (02/24/24 07:57:00) Temperature Route: Oral (02/24/24 07:57:00) Pulse Rate: 60 bpm (02/24/24 07:57:00) Respiratory Rate: 16 br/min (02/24/24 08:20:00) Systolic Blood Pressure:??156 mm Hg??High (02/24/24 07:57:00) Diastolic Blood Pressure: 64 mm Hg (02/24/24 07:57:00) Blood pressure sites: Arm, right (02/24/24 07:57:00) Mean Arterial Pressure: 95 mm Hg (02/24/24 07:57:00) Pulse Pressure: 92 mm Hg (02/24/24 07:57:00) Oxygen Saturation:??93 %??Low (02/24/24 07:57:00) Mode of Delivery (Oxygen): Room air (02/24/24 07:57:00) Early Warning Score: 2 (02/24/24 08:25:49) ? . Physical Exam Constitutional: Alert, in no distress. Mental Status: Oriented to person, place Head: Normocephalic. Neck: Supple, Full range of motion. Respiratory: Clear to auscultation. No wheezing, rales or rhonchi. Cardiovascular: S1 S2 regular. No murmurs, rubs or gallops. Gastrointestinal: Abdomen soft, non-tender, non-distended. Normal bowel sounds. . Genitourinary: No costovertebral angle tenderness. Neurologic: Cranial nerves II-XII grossly intact. No focal neurological deficits. Psychiatric: Normal mood and affect Consultants Urology: Dr Toussaint Pending Results Add On Lab Order ordered on 02/22/2024 Add On Lab Order ordered on 02/22/2024 BUN ordered on 02/24/2024 CBC ordered on 02/24/2024 Calcium Level ordered on 02/24/2024 Creatinine ordered on 02/24/2024 Electrolytes ordered on 02/24/2024 Glucose Level ordered on 02/24/2024 Follow-Up Appointments Added Follow Up ?Time Frame ?Comments [facility] Urology?1 to 2 weeks?please call for appointment Ashley Morales MD?1 week Post Discharge Care Discharge ?02/24/24 8:45:00 EDT ?02/24/24 8:44:00 EDT Home Health Face to Face *Denotes mandatory otoole ?? *I certify that this patient is under my care and that I or an allowed non- physician working with me had a face to face encounter with the patient on this date:??02/24/2024 08:49 ?? *The encounter with the patient was in whole, or in part, for the following medical condition, which is the primary diagnosis(es) for home health care:??Pyelonephritis (N12) Abdominal pain (R10.9) Hematuria (R31.9) Constipation (K59.00) ?? *Select the indications for the discipline/s that are being arranged for this patient. Nursing (select all that apply): [_] None [*_] Medication management (reconciliation, teaching)?? [*_] Chronic disease management?? [_] Wound care and treatment?? [_*] Home safety evaluation [_] Administer SQ/IM/IV medications?? [_] Cath care?? [_] Drain care?? [_] Trach or GT care?? Other _ Occupation Therapy (select all that apply): [_] None [_] ADL Management [_] Fall prevention training [_] Energy conservation [_] Cognitive training Other _ Physical Therapy (select all that apply): [_] None [_*] Functional mobility training [_*] Home exercise program to strengthen [_*] Increase ROM?? [_*] Falls prevention training [*_] Home maintenance program for chronic disease Other _ Speech Therapy (select all that apply): [_] None [_] Swallow evaluation and training [_] Speech and language training [_] Cognitive training to process, organize, and/or recall information Other _ ? *Homebound due to (select all that apply): [_] Inability to leave home without assistance/supervision [_] Inability to ambulate without assistance [_] Pain [*_] Decreased strength and endurance [_] Unsteady gait [_] Severe SOB and fatigue [_] Impaired transfers [_] Inability to negotiate stairs [_] Limited weight bearing [_] Mental status change? *Physician Signature:??Steve russo MD ?? *By signing this, I certify that I have personally evaluated the patient and agree with the findings and recommendations as documented above. ? 32_ minutes spent on discharge * Venkat BUTLER, Keyanna: PERFORM Event Display: Patient Education/Instruction Authored Date: [id number] Inpatient Adult Discharge Instructions. [address] [address] Name: SARA JOSHI : 1945?? Visit: 02/22/2024 06:01?? Current Date: 02/24/2024 10:15 ?? Account: [id number]?? Inpatient Adult Discharge Instructions We would like [...] and their families. Surveys are administered by [employer] ?? If further treatment with your primary care physician or another doctor is recommended, it is important for you to keep the appointment. Call your primary care physician or return to the Emergency Department immediately if your condition worsens, fails to improve, or new symptoms develop. If you need to find a doctor, you can call [facility] for a referral at [phone] or toll free at [phone]) or log in to [email or web address].. ?? [facility], in keeping with [facility] guidance, no longer requires face [...] a health care rosalio of your choosing. [employer] is a website that allows you to securely view your medical information including your hospital discharge summary, office visit summaries, medications and follow-up visits. You can also request appointments, renew medications, and request access to your medical information using a health care rosalio of your choosing, or just ask a question. You can enroll at [email or web address] or register during your next office visit. You have been discharged from [facility], Patient Care Unit: D6A??. If you have any questions regarding these instructions, including results of studies pending, afteryou leave, please call us and we will be happy to assist you 25/12. [facility] Your Care Team Attending Physician Steve Russo MD?? Consulting Providers Steve Russo MD?? Discharging Providers Steve Russo MD Reason for Your Visit Pt coming from SNF. Pt diagnosed w/ UTI last week, on cefuroxime 250mg, pt is now c/o heamturia anddizziness.?? Your Diagnosis Abdominal pain Constipation Flank pain Hematuria Tests Performed Below is a partial list of the tests performed during your hospitalization. You may have had other tests and procedures not included in this list. Please discuss all test results with your provider. Alk Phos ALT AST BUN Calcium Level CBC CBC w/ Differential Creatinine Electrolytes Glucose Level GLUCOSE POC Total Bilirubin Urinalysis w/hold for Urine Culture Urine Culture Result Urine Culture, Routine CT Abdomen and Pelvis W/O Contrast XR Hand Min 3 Views Right ALT?? AST?? Add On Lab Order?? Alk Phos?? BUN?? Bilirubin Total (Total Bilirubin)?? CBC?? CBC w/ Differential?? CT Abdomen and Pelvis W/O Contrast?? Calcium Level?? Creatinine?? Electrolytes?? Glucose Level?? Glucose POC?? Urinalysis w/hold for Urine Culture?? Urine Culture (Urine Culture, Routine)?? Urine Culture Result?? Hand Min 3 Views Right (XR Hand Min 3 Views Right)?? Primary Care Provider Ashley Morales MD? Advance Directive Health Care Proxy on File Yes - Health Care Proxy Yes - MOLST Discharge Vitals Temperature: 98.2 DegF Height: 160.02 cm Pulse Rate: 60 bpm Weight: 57 kg Respiratory Rate: 16 br/min Body Mass Index: 22.26 kg/m2 Systolic Blood Pressure:??156 mm Hg??High Body surface area: 1.59 Diastolic Blood Pressure: 64 mm Hg ?? Oxygen Saturation:??93 %??Low ?? Studies Pending All studies ordered during this hospital stay have been completed unless listed below. Please discuss all pending results with your provider listed above in these instructions. ?? Add On Lab Order?? What to do next Instructions From Your Doctor ?? Orders? 02/24/24 8:45:00 EDT?? 02/24/24 8:44:00 EDT?? You Need to Schedule the Following Appointments Follow Up with??[facility] When:??Within 1 to 2 weeks Why: please call for appointment Where: [address] [place] [id number] Follow Up with??Ashley Morales MD When:??Within 1 week Where: [address] [place] [id number]- Discharge Medications SARA JOSHI :1945 Visit Date:02/22/2024 Medications: Please continue your medications until treatment is completed or stopped by your provider. Medications not listed below should be discontinued. Discuss any questions related to medications with your provider. What How Much When Instructions Next Dose Changed insulin degludec (Tresiba FlexTouch 100 units/ mLsubcutaneous solution) 10 unit(s) Subcutaneous Injection Daily at Bedtime 02/23 9pm Unchanged Acetaminophen (Tylenol 325 mg oral capsule) 2 capsule Oral Every 4 hours as needed for as needed for fever prn Unchanged Al Hydroxide/ Mg Hydroxide/ Simethicone (Mintox) 30 Milliliter Oral Every 4 hours as needed for as needed for indigestion prn Unchanged Allopurinol (allopurinol 100 mg oral tablet) 1 tab(s) Oral Daily 02/24 9am Unchanged Aspirin (aspirin 81 mg oral delayed release tablet) 1 tab(s) Oral Daily 02/24 9am Unchanged Cholecalciferol (Vitamin D3 5000 intl units oral tablet) 1 tab(s) Oral Daily 02/24 9am Unchanged Clopidogrel (Plavix 75 mg oral tablet) 1 tab(s) Oral Daily 02/24 9am Unchanged Cyanocobalamin (Vitamin B-12 1000 mcg oral tablet) 1 tab(s) Oral Daily 02/24 9am Unchanged Docusate-Senna (Senna Plus 50 mg-8.6 mg oral tablet) 2 tab(s) Oral Twice a day 02/23 9pm Unchanged Donepezil (donepezil 5 mg oral tablet) 1 tab(s) Oral Daily at Bedtime 02/23 9pm Unchanged Famotidine (famotidine 40 mg oral tablet) 1 tab(s) Oral Daily 02/24 9am Unchanged Gabapentin (gabapentin 100 mg oral capsule) 1 capsule Oral Twice a day 02/23 9pm Unchanged Glycerin (glycerin adult rectal suppository) 1 suppository(ies) Per rectum Daily as needed for for constipation prn Unchanged Levothyroxine (levothyroxine 0.1 mg oral tablet) 1 tab(s) Oral Daily 02/24 9am Unchanged Lisinopril (lisinopril 40 mg oral tablet) 1 tab(s) Oral Daily 02/24 9am Unchanged Loperamide (loperamide 2 mg oral capsule) 1 capsule Oral Daily as needed for for loose stool NTE 8 capsules in 24hrs ?? prn Unchanged Metoprolol (Metoprolol Succinate ER 25 mg oral tablet, extended release) 2 tab(s) Oral Daily 02/24 9am Unchanged Milk of Magnesia (Milk of Magnesia 8% oral suspension) 30 Milliliter Oral Daily at Bedtime as needed for for constipation Unchanged Miscellaneous Rx (BD PEN NEEDL MIS [id number] [place]) Unchanged Multivitamin With Minerals (PreserVision) 1 tab(s) Oral Daily 02/24 9am Unchanged Polyethylene Glycol 3350 (polyethylene glycol 3350 oral powder for reconstitution) 17 gram Oral Twice a day as needed for Constipation dissolve in water or juice before taking ?? prn Unchanged Pyridoxine (Vitamin B6 100 mg oral tablet) 1 tab(s) Oral Daily 02/24 9am Unchanged Rosuvastatin (rosuvastatin 20 mg oral capsule) 1 capsule Oral Daily 02/24 9pm Prescription Given During Visit No new medications prescribed at time of discharge.?? Laboratory Results Below is a partial list of the most recent Laboratory test results done prior to this discharge. You may have had other tests and procedures not included in this list. Please discuss all test resultswith your provider. Est Creatinine Clearance - 56.24 mL/min (02/24/2024) Alk Phos (02/21/2024) ???Alkaline Phosphatase - 106 units/L ALT (02/21/2024) ???ALT (SGPT) - 17 units/L AST (02/21/2024) ???AST (SGOT) - 21 units/L BUN (02/24/2024) ???BUN - 15 mg/dL Calcium Level (02/24/2024) ???Calcium - 9.0 mg/dL CBC (02/24/2024) ???WBC - 7.1 k/mm3???RBC - 4.78 m/mm3???Hgb - 13.4 Gm/dL???Hct - 43.3 %???MCV - 90.6 femtoliters???MCH - 28.0 pg???MCHC - 30.9 g/dL???Platelet Count - 201 k/mm3???RDW-SD - 55.8 femtoliters???MPV - 9.9 femtoliters???Nucleated RBC (Automated) - 0.0 #/100 WBC'S???Abs. NRBC - 0.0 k/mm3 CBC w/ Differential (02/21/2024) ???WBC - 8.0 k/mm3???RBC - 4.94 m/mm3???Hgb - 13.7 Gm/dL???Hct - 43.8 %???MCV - 88.7 femtoliters???MCH - 27.7 pg???MCHC - 31.3 g/dL???Platelet Count - 200 k/mm3???RDW-SD - 55.3 femtoliters???MPV - 9.4 femtoliters???Nucleated RBC (Automated) - 0.0 #/100 WBC'S???Abs. NRBC - 0.0 k/mm3???Abs. Neut - 4.7 k/mm3???Abs. Lymph - 2.5 k/mm3???Abs. [place] - 0.5 k/mm3???Abs. Eo - 0.2 k/mm3???Abs. Baso - 0.1 k/mm3???Neut % - 58.3 %???Lymph % - 31.3 %???[place] % - 6.6 %???Eos % - 2.5 %???Baso % - 1.0 %???Imm Gran- 0.3 %???Abs. Imm Gran - 0.0 k/mm3 Creatinine (02/24/2024) ???Creatinine-Blood - 0.66 mg/dL???Estimated GFR Creatinine - 89 ML/MIN/1.73 M2 Electrolytes (02/24/2024) ???Sodium - 140 mmol/L???Potassium - 4.0 mmol/L???Chloride - 105 mmol/L???Bicarbonate Level - 24 mmol/L???Anion Gap - 11 Glucose Level (02/24/2024) ???Glucose Level - 76 mg/dL GLUCOSE POC (02/24/2024) ???Glucose, POC - 82 mg/dL Total Bilirubin (02/21/2024) ???Bilirubin, Total - 0.2 mg/dL Urinalysis w/hold for Urine Culture (02/22/2024) ???Appear/Color, Urine - LIGHT YELLOW???Specific [place], Urine - 1.015???pH, Urine - 6.0???Albumin, Urine - NEGATIVE???Glucose, Urine - NEGATIVE???Ketones, Urine - NEGATIVE???Bilirubin, Urine - NEGATIVE???Hemoglobin, Urine - 2+???Nitrite, Urine - NEGATIVE???Leukocyte, Urine - NEGATIVE???Urobilinogen - NORMAL???WBC's, Urine - 1 /HPF???RBC's, Urine - 19 /HPF???Squamous Epith - 1 /HPF???Mucus - SLIGHT???Hold Urine Culture - Testing available 48 hours from time of collection. Urine Culture Result (02/22/2024) ???Urine Culture Isolate 1 - No growth Urine Culture, Routine (02/22/2024) ???Urine Culture Results - Final report???Urine Culture Specimen Source - URINE You will be contacted within 72 hours with your results. Allergies (NKA means No Known Allergies) Cefuroxime Axetil??(Acute diarrhea) Nitrofurantoin Monohydrate/Macrocrystals atorvastatin azithromycin??(Nausea and vomiting status: disruptive effects) cefTRIAXone??(Acute diarrhea) cephalexin??(Nausea and vomiting) ciprofloxacin citalopram ibuprofen levoFLOXacin metFORMIN??(Acute diarrhea) oxyCODONE penicillin??(Rash) pioglitazone repaglinide??(Nausea and vomiting) rosuvastatin sertraline??(Anxiety) simvastatin sulfa drugs??(Nausea and vomiting) Problems Active Problems??(7) CAD (coronary artery disease)?? Cognitive impairment?? Gout?? HTN (hypertension)?? Hypothyroidism?? SSS (sick sinus syndrome)?? Type 2 diabetes mellitus?? Education Materials Below is the list of Educational Leaflet Providered with your Discharge Instructions. Valuables and Belongings I fully understand and agree that [facility] accepts no responsibility for all my personal [...] patient Date for Pt to Sign Valuables/Belongings: 02/22/24 00:28:00 ?? Other Discharge Information ? Pulmonary Rehab [...] are strongly encouraged to quit. Please call [facility] Link at [phone] or [phone]) or log in to [email or web address] for referrals to smoking cessation programs. ?? 969 Suicide & Crisis Lifeline is available 25/12 if you or someone you know needs to find a reason to keep living. By calling 799 you'll be connected to a skilled, trained counselor at a crisis center in your area. INPATIENT DISCHARGE INSTRUCTIONS SIGNATURE PAGE SARA JOSHI Location:[facility] Registration Date and Time:02/22/2024 06:01 EDT Primary Care Physician: Ashley Morales MD, Attending Physician: Steve Russo MD, I SARA JOSHI, have received the above patient education materials/instructions and have verbalized understanding. If ambulance or transport services are being used I further acknowledge being given a choice of service. ?? If you need to contact me, please call me at this number: . Patient/Well Service Floorperson Name: Patient/Well Service Floorperson Signature: Relationship to Patient: Witness Name/Signature: Date: Patient Care team information Care Team Personnel Name: Chase Otoole RN Position: [facility] RN Member Role: Primary Care Nurse Name: Radha Crawford Position: [facility] RN Member Role: Primary Care Nurse Name: Ashley Morales MD Position: [facility] Physician - Primary Care Member Role: PCP Address: Address: [address] Name: Svitlana Mcgee RN Position: [facility] RN Member Role: Primary Care Nurse Name: Chris Colon RN Position: [facility] RN Member Role: Primary Care Nurse Name: Soraida Handy RN Position: [facility] RN Member Role: Primary Care Nurse Name: Thom Kuo RN Position: [facility] RN Member Role: Primary Care Nurse Name: Ileana Khan RN Position: [facility] Onco RN Member Role: Primary Care Nurse Name: Yolanda Anderson RN Position: [facility] RN Member Role: Primary Care Nurse Name: Becky Quezada RN Position: [facility] SN RN Member Role: Primary Care Nurse Name: Justa Greco RN Position: [facility] RN Member Role: Primary Care Nurse Name: Sara Dorantes RN Position: [facility] RN Member Role: Primary Care Nurse Name: Chelita Bailey LPN Position: [facility] RN Member Role: Primary Care Nurse
== END 2024-03-05 10:27 | disposition home or self-care (01) ==
PROVIDERS: Visit Provider Urology
DX: N20.0 Calculus of kidney (principal); N12 Tubulo-interstitial nephritis, not specified as acute or chronic; R10.9 Unspecified abdominal pain
CPT/HCPCS: 99214

== ENCOUNTER 2024-03-05 09:08 | Outpatient (REF) | payer MEDICARE, MEDICAID, SELFPAY | END 2024-03-05 09:09 | disposition home or self-care (01) | LOC: HO.LNP 09:08 | PROVIDERS: Visit Provider Urology | DX: N39.0 Urinary tract infection, site not specified (principal); N20.0 Calculus of kidney; N12 Tubulo-interstitial nephritis, not specified as acute or chronic; R10.9 Unspecified abdominal pain | CPT/HCPCS: 51798; 81003; 87086; 99212 ==

== ENCOUNTER 2024-04-14 17:44 | Inpatient (IN) | payer MEDICARE, MEDICAID, SELFPAY ==
--- NOTE | ~2024-04-14 | CT_ITS ---
EXAMINATION: CT HEAD WITHOUT CONTRAST CLINICAL INFORMATION: Hypertensive crisis. Headache. COMPARISON: CT head from 01/19/2023. TECHNIQUE: Contiguous axial imaging was performed from the skull base to vertex without intravenous administration of contrast. This CT examination was performed using dose optimization techniques as appropriate, variously including the following: *Automated exposure control. *Adjustment of mA and/or kV according to patient size (this includes techniques or standardized protocols for targeted exams where dose is matched to indication/reason for exam; i.e. extremities or head). *Use of iterative reconstruction technique. DLP: 522 mGy-cm FINDINGS: Chronic lacunar infarcts of the right lentiform nucleus, right thalamus, and cerebellum. No additional loss of zendejas-white matter differentiation. No evidence of acute intracranial hemorrhage. Scattered and partially confluent hypoattenuation in the periventricular and deep white matter are consistent with moderate microangiopathy. Proportional prominence of the ventricles and sulcal spaces without evidence of obstructive hydrocephalus. The suprasellar cistern remains widely patent. Normal positioning of the cerebellar tonsils. No abnormal mass effect or midline shift. No extra-axial fluid collections. Calcific atherosclerotic disease of the intracranial internal carotid arteries. No hyperdense vessel sign. No acute soft tissue or osseous abnormalities. Moderate mucosal thickening of the paranasal sinuses. The mastoid air cells and middle ear cavities are clear. Bilateral lens extractions. CT/CT head/brain wo IV con IMPRESSION: 1. No evidence of acute intracranial hemorrhage or edematous territorial infarction. 2. 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 Moderate underlying microangiopathy and generalized cerebral volume loss. Electronically signed by: Blake Leavitt DO 04/14/2024 08:55 PM EST
--- NOTE | ~2024-04-14 | CT_ITS ---
EXAMINATION: CT ABDOMEN AND PELVIS WITHOUT CONTRAST CLINICAL INFORMATION: Hematuria, history of calculi. COMPARISON: CT abdomen/pelvis 02/16/2024. TECHNIQUE: Multidetector volumetric imaging was performed from the superior aspect of the liver through the pubic symphysis. Sagittal and coronal reformatted images were obtained on the technologist's workstation. This CT examination was performed using dose optimization techniques as appropriate, variously including the following: *Automated exposure control *Adjustment of mA and/or kV according to patient size (this includes techniques or standardized protocols for targeted exams where dose is matched to indication/reason for exam; i.e. extremities or head) *Use of iterative reconstruction technique DLP: 438.4 mGy-cm FINDINGS: The lack of intravenous contrast limits evaluation of the solid visceral organs including the liver, spleen, pancreas, and kidneys. LUNG BASES: No focal consolidation or pleural effusion. Partially imaged pacer leads, cardiomegaly and multivessel coronary artery calcifications. LIVER, GALLBLADDER, AND BILIARY TREE: The liver is normal in size, shape, and attenuation. No focal hepatic lesion or biliary ductal dilatation is present. The gallbladder is unremarkable with no evidence of radiopaque gallstones, gallbladder wall thickening, or obvious pericholecystic inflammatory changes. PANCREAS: Unremarkable. SPLEEN: Unremarkable. ADRENAL GLANDS: Stable enlargement of the bilateral adrenal glands dating back to 2020. KIDNEYS AND URETERS: New calculus in the left ureteropelvic junction measuring 6 mm and Hounsfield units 1281 with similar to slightly increased upstream pelvocaliectasis and similar to slightly increased peripelvic fatty haziness. Multiple additional bilateral renal calculi/parenchymal calcifications are not significantly changed. Stable mild right-sided pelvocaliectasis. No significant perinephric fat stranding. BLADDER: Stable punctate calcification abutting the left posterior bladder wall. No significant perivesical fat stranding. GASTROINTESTINAL TRACT: Very large stool ball in the rectum and sigmoid with moderate to large degree of colonic stool burden within the remaining of the colon. Suggestion of mild wall thickening surrounding the large fecal ball in the rectum and sigmoid. Colonic diverticulosis. No significant pericolonic or perirectal inflammatory changes. The stomach and small bowel are nondilated. ABDOMINAL WALL: No significant hernia is appreciated. LYMPH NODES: No lymphadenopathy. VASCULAR: Severe atherosclerotic disease. Infrarenal abdominal aorta fusiform aneurysm measuring 4.1 cm in diameter, unchanged. PELVIC VISCERA: Unremarkable. OSSEOUS STRUCTURES: No acute or aggressive appearing osseous findings. Multifocal degenerative changes. CT/CT abdomen pelvis wo IV con IMPRESSION: 1. New 6 mm calculus in the left ureteropelvic junction with similar to slightly increased upstream pelvocaliectasis and similar to slightly increased peripelvic fatty haziness. Multiple additional renal calculi and parenchymal calcifications are stable. 2. Very large stool ball in the rectum and sigmoid with suggestion of mild wall thickening. Correlate clinically for stercoral colitis. 3. Stable 4.1 cm infrarenal abdominal aorta aneurysm. Based on published guidelines in J Am Tunde Radiol 2013; 10(10):789-794 and J Vasc Surg. 2018; 67:2-77, the recommendation for an abdominal aortic aneurysm with diameter 4.0-4.4 cm is vascular consultation and subsequent follow-up every 12 months. Electronically signed by: Norah Hull MD 04/14/2024 09:18 PM EST
[2024-04-14 17:58] VITALS: BP 190/98; PULSE 60; O2SAT 98
--- NOTE | 2024-04-14 18:06 | ED.FEMALEGU ---
HPI - Female Genitourinary General Chief complaint: Urogenital-Female Stated complaint: UTI SYMPTOMS HIGH BP Time Seen by Provider: 04/14/24 17:48 Source: patient Mode of arrival: EMS Limitations: no limitations History of Present Illness HPI Narrative: Patient is an 78-year-old female who presents to the emergency department coming from [facility] for evaluation. Patient endorses that she has been noticing blood in her urine for the past 2 days she is on aspirin and Plavix. She states it is only noticed when she is urinating. She admitted to dysuria yesterday but this has resolved. She states she does have a history of kidney stones as well as urinary tract infections. She also states that a nurse at the facility was concerned that her blood pressure was elevated. Does state she has a history of high blood pressure and has been taking her medications. She endorses having a diffuse frontal headache which is atypical for her. She denies dizziness, lightheadedness, vision changes, neck pain, chest pain, shortness of breath, nausea, vomiting, abdominal pain, numbness or tingling of the extremities. She denies any recent falls or injuries. Related Data Home Medications ?Medication ?Instructions ?Recorded ?Confirmed lisinopril 40 mg tablet 40 mg PO DAILY 11/04/20 04/17/23 amlodipine 5 mg tablet 5 mg PO DAILY 12/14/21 04/17/23 levothyroxine 100 mcg tablet 100 mcg PO DAILY 12/14/21 04/17/23 rosuvastatin 20 mg tablet 20 mg PO BEDTIME 12/14/21 04/17/23 Previous Rx's ?Medication ?Instructions ?Recorded blood-glucose meter (OneTouch #100 ea 09/01/20 Ultra2 Meter) insulin degludec 100 unit/mL (3 18 unit (0.18 mL) subcut BEDTIME 07/20/21 mL) subcutaneous pen (Tresiba #15 mL FlexTouch U-100 insulin) pyridoxine (vitamin B6) 100 mg 100 mg PO DAILY 90 days #90 tabs 09/27/21 tablet blood sugar diagnostic #100 ea 10/20/21 lancets 33 gauge (OneTouch Delica #100 ea 10/20/21 Lancets) pen needle, diabetic 33 gauge x #100 ea 11/18/21 (Comfort EZ Pen [place]) cyanocobalamin (vitamin B-12) 1,000 mcg PO DAILY #30 tabs 12/30/21 1,000 mcg tablet blood sugar diagnostic (FreeStyle #100 ea 01/13/22 Lite Strips) cholecalciferol (vitamin D3) 125 125 mcg PO DAILY #90 caps 02/16/22 mcg (5,000 unit) capsule famotidine 40 mg tablet 40 mg PO DAILY #90 tabs 02/16/22 clopidogrel 75 mg tablet 75 mg PO DAILY #90 tabs 03/09/22 donepezil 5 mg tablet 5 mg PO BEDTIME #90 tabs 03/09/22 gabapentin 100 mg capsule 100 mg PO BID #180 caps 03/09/22 metoprolol succinate 25 mg 50 mg (2 x 25 mg) PO DAILY #90 tabs 03/09/22 tablet,extended release 24 hr allopurinol 100 mg tablet 100 mg PO DAILY 90 days #90 tabs 03/27/22 aspirin 81 mg capsule 81 mg PO DAILY #30 caps 06/26/22 docusate sodium 100 mg capsule 100 mg PO BID #180 caps 11/10/22 (Colace) polyethylene glycol 3350 17 17 g PO BID PRN constipation #238 11/10/22 gram/dose oral powder (Miralax) grams sennosides 8.6 mg tablet (senna) 8.6 mg PO BEDTIME #90 tabs 11/10/22 doxycycline hyclate 100 mg tablet 100 mg PO BID #14 tabs 07/21/23 ciprofloxacin HCl 250 mg tablet 250 mg PO BID 3 days #6 tabs 11/19/23 cefuroxime axetil 250 mg tablet 250 mg PO BID 7 days #14 tabs 02/17/24 Allergies Allergy/AdvReac Type Severity Reaction Status Date / Time atorvastatin Allergy Unknown pt does Verified 04/14/24 18:20 not know azithromycin Allergy Unknown pt does Verified 04/14/24 18:20 not know ceftriaxone Allergy Unknown pt does Verified 04/14/24 18:20 not know cephalexin Allergy Unknown pt does Verified 04/14/24 18:20 not know citalopram Allergy Unknown pt does Verified 04/14/24 18:20 not know levofloxacin Allergy Unknown pt does Verified 04/14/24 18:20 not know metformin Allergy Unknown pt does Verified 04/14/24 18:20 not know nitrofurantoin Allergy Unknown pt does Verified 04/14/24 18:20 not know oxycodone Allergy Unknown pt does Verified 04/14/24 18:20 not know penicillin V Allergy Unknown pt does Verified 04/14/24 18:20 not know pioglitazone Allergy Unknown pt does Verified 04/14/24 18:20 not know repaglinide Allergy Unknown pt does Verified 04/14/24 18:20 not know rosuvastatin [Crestor] Allergy Unknown pt does Verified 04/14/24 18:20 not know sertraline Allergy Unknown pt does Verified 04/14/24 18:20 not know simvastatin Allergy Unknown pt does Verified 04/14/24 18:20 not know sulfacetamide Allergy Unknown pt does Verified 04/14/24 18:20 not know Cefuroxime Sodium Allergy Unknown pt does Uncoded 04/14/24 18:20 not know Review of Systems Review of Systems: Yes all other systems are reviewed and are negative [facility] Past Medical History Attestation statement: The following information was validated with the patient. Source: old records reviewed Medical History Annual physical exam HTN (hypertension) IDDM (insulin dependent diabetes mellitus) Diverticulitis Nephrolithiasis Cataract Hyperlipidemia Pacemaker Myocardial infarct Macular degeneration Nephrolithiasis Dementia Frequent UTI HTN (hypertension) Hypothyroid Diabetes Surgical History Status post lumbar spine surgery for decompression of spinal cord H/O left knee surgery Family History Family History Father Heart attack Mother Heart problem Heart attack Substance use disorder Social History Social History Household Members: Children Household Members Other:: lives in assisted living Housing: House Do you presently have visiting nurse or other home services: No Alcohol intake: never Patient Tobacco Use Status: Current everyday Tobacco user Tobacco use type: Cigarette Cigarettes Per Day: 4 Years Smoked: 54 Smoked in Last 30 Days: No e-Cigarette/Vaping Use: Never Used Use of substances other than those prescribed or required for medical reasons: No Advance Directives: Yes Advance Directives on File: Yes Advance Directives Date on File: 11/05/20 service: No Current occupational status: retired Cognitive needs: No Hearing needs: No Vision needs: Yes Physical Exam Vital Signs: Vital Signs: Last Vital Signs Temp 98.0 F 04/14/24 22:37 Pulse 59 04/14/24 22:37 Resp 16 04/14/24 22:37 BP 160/71 H 04/14/24 22:37 Pulse Ox 98 04/14/24 22:37 O2 Del Method Room Air 04/14/24 22:37 BMI result Body Mass Index 31.9 Appearance: Alert.?Oriented to person, place and time. No acute distress.?Normal affect. Eyes: Pupils equal, round and reactive to light.? ENT: Pharynx normal.?? Neck: Normal inspection.? Neck supple.?? CVS: Heart sounds normal. Normal heart rate and rhythm.? Pulses normal.?? Respiratory: No respiratory distress.? Lung sounds clear to auscultation bilaterally?? Abdomen: Soft and non-tender. Normoactive bowel sounds. ? Skin: Skin warm and dry.? Normal skin color.? Extremities: No lower extremity edema.? No calf ttp? Neuro: Moves all extremities spontaneously. Sensation intact bilaterally. CN II-XII intact. No focal neuro deficits. Ambulates with normal steady gait. Course Reevaluation(s) Reevaluation #1: CT of the abdomen and pelvis revealing a 6 mm calculus in the left UPJ, which is likely the etiology for the hematuria that she is experiencing, urinalysis is without evidence of infection. Patient receive a dose of tamsulosin in the emergency department. Large bolus of stool in the rectum and sigmoid with suggest of mild wall thickening. When asked she admits to having a normal bowel movement 2-3 days ago. On re-evaluation she does have some mild tenderness in the left lower quadrant of her abdomen. She now stay at this time that she has been experiencing intermittent pain in this area, last night her pain was very severe. She declines any analgesics at this time. Patient received a fleets enema try to facilitate bowel movement. 4.1 cm infrarenal abdominal aortic aneurysm to appear stable when compared to prior in February of 2024, increasing in size and compared to June of 2022 (3.3 cm) Time: 21:46 Reevaluation #2: Patient received enema approximately 1 hour ago with only very small amount of bowel movement afterwards. Then performed digital rectal examination I am unable to palpate the stool within the rectal vault for manual disimpaction. Discussed with patient importance of increasing fluid intake, high-fiber diet, and laxatives. At this time she is not have signs of perforation, has experienced no hematochezia or melena. She has been prescribed senna in the past will trial this in addition to MiraLax Regarding her kidney stone, 6 mm at the left UPJ, not appear to have perinephric stranding or hydronephrosis. She has been tolerating oral intake no nausea or vomiting. On re-evaluation she endorses her left lower abdominal pain to be 7/10, was exacerbated after attempting to strain for a bowel movement. She is lying in bed and feels very uncomfortable at this time requesting analgesic. I will speak with Urology. She was seen by Urology Dr. David gunn March of 2024, discussed possible interventions at that time and consideration of her do not burden noted on KUB and she was not interested. I discussed with her again at this time, she reports that she would be interested in intervention given her degree of pain. Time: 23:58 Reevaluation #3: Spoke with Urology, Dr. Che, he advises that he will evaluate patient in the morning. Patient placed in physician observation at 01:02 pending evaluation from Urology. Vital signs stable. Patient aware of plan of care. Patient signed out to ED attending Dr. Delarosa Time: 01:02 Medications Administered Discontinued Medications Generic Name Dose Route Start Last Admin Trade Name Freq PRN Reason Stop Dose Admin Mineral Oil 133 ml 04/14/24 21:50 04/14/24 23:03 Mineral Oil Enema 133 Ml Enema [place] 04/14/24 21:51 133 ml ONCE ONE Administration Tamsulosin HCl 0.4 mg 04/14/24 21:50 04/14/24 23:01 Tamsulosin Hcl 0.4 Mg Capsule PO 04/14/24 21:51 0.4 mg ONCE ONE Administration Medical Decision Making Medical Decision Making MDM Narrative: Patient is an 78-year-old female with past medical history of dementia, hypothyroidism, hypertension, diabetes, nephrolithiasis, hyperlipidemia, macular degeneration, cardiac pacemaker, myocardial infarction with stenting, malignant neoplasm of the cervix who presents to emergency department for evaluation of hematuria on antiplatelets, elevated blood pressure reading and headache as per HPI. Overall is well-appearing, nontoxic, afebrile. Has no focal neurological deficits. A benign abdominal examination, no notable CVAT. No active bleeding is noted. Will obtain CBC to evaluate for leukocytosis/ anemia, CMP and lipase to evaluate for abnormal electrolytes /abnormal renal function/ abnormal hepatic/biliary function, hypertension this morning 200/110 as per report from EMS given by [facility] home staff, elevated here 170/60, will obtain CT of the head to exclude ICH, SDH, CT abdomen pelvis to evaluate for nephrolithiasis, obstructive calculi, hydronephrosis and Urinalysis. Differential Diagnosis Differential Diagnoses: The differential diagnosis associated with the presentation includes (See narrative above) Admission/Observation Consideration of admission/observation: Escalation of care including admission/observation considered (See narrative above and course narrative for further detail) Lab Data MDM Lab Attestation statement: I reviewed the patient's lab results. (See course narrative) 04/14/24 19:18 04/14/24 19:18 Labs: Lab Results 04/14/24 04/14/24 Range/Units 19:18 19:19 WBC 10.2 (4.8-10.8) X10*3/uL RBC 4.92 (4.20-5.50) X10*6/uL Hgb 13.9 (12.0-16.0) g/dl Hct 44.7 (37.0-47.0) % MCV 90.9 (80.0-98.0) fL MCH 28.3 (27.0-33.0) pg MCHC 31.1 (31.0-35.0) g/dl RDW 16.4 H (11.0-16.0) % Plt Count 227 (160-400) X10*3/uL MPV 9.4 (9.4-12.3) fL Immature Gran % (Auto) 0.4 (0.0-0.4) % Neut % (Auto) 68.1 (45-73) % Lymph % (Auto) 22.8 (20-40) % [place] % (Auto) 6.5 (2-11) % Eos % (Auto) 1.6 (0-4) % Baso % (Auto) 0.6 (0-2) % Lymph # (Auto) 2.3 (1.2-4.9) X10*3/uL [place] # (Auto) 0.7 (0.1-1.2) X10*3/uL Eos # (Auto) 0.2 (0.0-0.4) X10*3/uL Baso # (Auto) 0.1 (0.0-0.2) X10*3/uL Abs Immat Gran (auto) 0.04 H (0.00-0.03) X10*3/uL Absolute Neuts (auto) 6.9 (2.0-8.3) x10*3/uL Absolute Nucleated RBC 0.000 (0.0-0.012) X10*3/uL Nucleated RBC % (auto) 0.0 (0.0-0.2) /100WBC Sodium 145 (135-145) mmol/L Potassium 4.5 (3.3-5.1) mmol/L Chloride 109 H (96-108) mmol/L Carbon Dioxide 27 (22-29) mmol/L Anion Gap 14 (12-20) BUN 16 (9-16) mg/dL Creatinine 0.83 (0.5-1.4) mg/dL Estim Creat Clear Calc 54.7 Estimated GFR > 60 Random Glucose 131 H (60-115) mg/dL Calcium 9.9 D (8.4-10.2) mg/dL Total Bilirubin 0.3 (0.0-1.0) mg/dL AST 24 (5-31) U/L ALT 17 (0-31) U/L Alkaline Phosphatase 98 (39-117) U/L Total Protein 7.3 (6.5-8.0) g/dL Albumin 4.0 (3.5-5.0) g/dL Lipase 27 (8-78) U/L Urine Color Yellow Urine Appearance Clear Urine pH 6.0 (5.0-9.0) Ur Specific [place] 1.015 (1.005-1.025) Urine Protein Negative (Neg-Trace) mg/dL Urine Glucose (UA) Negative (Negative) mg/dL Urine Ketones Negative (Negative) mg/dL Urine Blood Large (3+) H (Negative) Urine Nitrite Negative (Negative) Ur Leukocyte Esterase Trace H (Negative) Urine RBC >20 H (0-2) /HPF Urine WBC 0-5 (0-5) /HPF Ur Squamous Epith Cells 0-2 (0-2) /HPF Urine Bacteria None Seen (None Seen) Hyaline Casts 0-2 (0-2) /LPF Influenza Type A (PCR) NEGATIVE (Negative) Influenza Type B (PCR) NEGATIVE (Negative) RSV RNA Qual (PCR) NEGATIVE (Negative) SARS-CoV-2 RNA (RT-PCR) NEGATIVE (Negative) Independent Interpretation I performed an independent interpretation of an: CT Scan (Left ureteral calculi) Radiology Impression Discussion of test interpretation with radiology: I have reviewed the radiologist's reading. Radiologist Impression: CT/CT head/brain wo IV con IMPRESSION: 1. No evidence of acute intracranial hemorrhage or edematous territorial infarction. 2. 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 Moderate underlying microangiopathy and generalized cerebral volume loss. CT/CT abdomen pelvis wo IV con IMPRESSION: 1. New 6 mm calculus in the left ureteropelvic junction with similar to slightly increased upstream pelvocaliectasis and similar to slightly increased peripelvic fatty haziness. Multiple additional renal calculi and parenchymal calcifications are stable. 2. Very large stool ball in the rectum and sigmoid with suggestion of mild wall thickening. Correlate clinically for stercoral colitis. 3. Stable 4.1 cm infrarenal abdominal aorta aneurysm. Based on published guidelines in J Am Tunde Radiol 2013; 10(10):789-794 and J Vasc Surg. 2018; 67:2-77, the recommendation for an abdominal aortic aneurysm with diameter 4.0-4.4 cm is vascular consultation and subsequent follow-up every 12 months. Independent Historian Clinical information obtained from an independent historian. History obtained from or confirmed by: EMS External Record Review External record reviewed: Outpatient record Critical Care Time Critical Care Time Critical Care Time: Yes Total Critical Care Time: 40 Attestation: I personally attest to this critical care time spent taking care of the patient exclusive of all other billable procedures was approximately 40 minutes including initial evaluation of patient, ordering tests, CT interpretation, IV and re-evaluation, medical consultation, documentation, re-evaluation. Discharge Plan Discharge Clinical Impression: Left ureteral calculus, Constipation Patient Disposition: Still a Patient Instructions: Constipation (ED), High Fiber Diet (ED), Ureteral Stones (ED) Prescriptions: No Action (DME) blood-glucose meter [OneTouch Ultra2 Meter] [facility] See Rx Instructions .ROUTE .MEDSUPPLY Qty: 100 3RF Rx Instructions: tid pyridoxine (vitamin B6) 100 mg tablet 100 mg PO DAILY 90 Days Qty: 90 3RF (DME) pen needle, diabetic [Comfort EZ Pen [place]] 33 gauge x 5/32 needle See Rx Instructions .Route Qty: 100 3RF Rx Instructions: As directed cyanocobalamin (vitamin B-12) 1,000 mcg tablet 1,000 mcg PO DAILY Qty: 30 8RF (DME) FreeStyle Lite Strips Strip See Rx Instructions .Route Qty: 100 5RF Rx Instructions: test blood sugar 3 times per day famotidine 40 mg tablet 40 mg PO DAILY Qty: 90 3RF cholecalciferol (vitamin D3) 125 mcg (5,000 unit) capsule 125 mcg PO DAILY Qty: 90 3RF donepezil 5 mg tablet 5 mg PO BEDTIME Qty: 90 3RF metoprolol succinate 25 mg tablet extended release 24 hr 50 mg PO DAILY Qty: 90 3RF gabapentin 100 mg capsule 100 mg PO BID Qty: 180 3RF clopidogrel 75 mg tablet 75 mg PO DAILY Qty: 90 3RF allopurinol 100 mg tablet 100 mg PO DAILY 90 Days Qty: 90 1RF docusate sodium [Colace] 100 mg capsule 100 mg PO BID Qty: 180 3RF polyethylene glycol 3350 [Miralax] 17 gram/dose powder 17 g PO BID PRN (Reason: constipation) Qty: 238 0RF Rx Instructions: If no BM x 3 days sennosides [senna] 8.6 mg tablet 8.6 mg PO BEDTIME Qty: 90 3RF ciprofloxacin HCl 250 mg tablet 250 mg PO BID 3 Days Qty: 6 0RF lisinopril 40 mg Tablet 40 mg PO DAILY aspirin 81 mg capsule 81 mg PO DAILY Qty: 30 0RF doxycycline hyclate 100 mg tablet 100 mg PO BID Qty: 14 0RF cefuroxime axetil 250 mg tablet 250 mg PO BID 7 Days Qty: 14 0RF Tresiba FlexTouch U-100 100 unit/mL (3 mL) insulin pen 18 unit subcut BEDTIME Qty: 15 4RF rosuvastatin 20 mg tablet 20 mg PO BEDTIME levothyroxine 100 mcg tablet 100 mcg PO DAILY amlodipine 5 mg tablet 5 mg PO DAILY (DME) lancets [OneTouch Delica Lancets] 33 gauge misc See Rx Instructions .ROUTE .MEDSUPPLY Qty: 100 5RF Rx Instructions: TID (DME) OneTouch Ultra Blue Test Strip Strip See Rx Instructions .ROUTE .MEDSUPPLY Qty: 100 4RF Rx Instructions: tid Print Language: Romanian
[2024-04-14 18:18] VITALS: BP 170/60; PULSE 60; RESP 18; TEMP 37.4; O2SAT 96
[2024-04-14 18:19] VITALS: BP 170/60; PULSE 60; RESP 16; TEMP 37.4; O2SAT 96; BMI 31.9
[2024-04-14 18:45] VITALS: BP 154/67; PULSE 60; RESP 19; TEMP 36.6; O2SAT 98
[2024-04-14 19:24] LABS: MANUAL DIFF FLAG NO
[2024-04-14 19:26] LABS: Appearance Urine Clear; Color Urine Yellow; Glucose Urine UA Negative (Negative); Leukocyte Esterase Urine Trace (Negative); Nitrite Urine Negative (Negative); Specific Gravity - Urine 1.015 (1.005-1.025); UMIC TRIGGER UACC YES; Urine Blood Large (3+) (Negative); Urine Ketones Negative (Negative); Urine Protein Negative (Neg-Trace)
[2024-04-14 19:28] LABS: Basophils Absolute Auto 0.1 X10*3/uL (0.0-0.2); Basophils Percent Auto 0.6 % (0-2); Eosinophils Absolute Auto 0.2 X10*3/uL (0.0-0.4); Eosinophils Percent Auto 1.6 % (0-4); Hematocrit 44.7 % (37.0-47.0); Hemoglobin 13.9 g/dl (12.0-16.0); Imm Gran Abs Auto 0.04 X10*3/uL (0.00-0.03); Imm Gran Pct Auto 0.4 % (0.0-0.4); Lymphocytes Absolute Auto 2.3 X10*3/uL (1.2-4.9); Lymphocytes Percent Auto 22.8 % (20-40); Mean Corpuscular HGB Conc 31.1 g/dl (31.0-35.0); Mean Corpuscular Hemoglobin 28.3 pg (27.0-33.0); Mean Corpuscular Volume 90.9 fL (80.0-98.0); Mean Platelet Volume 9.4 fL (9.4-12.3); Monocytes Absolute Auto 0.7 X10*3/uL (0.1-1.2); Monocytes Percent Auto 6.5 % (2-11); Neutrophils Absolute Auto 6.9 x10*3/uL (2.0-8.3); Neutrophils Percent Auto 68.1 % (45-73); Platelet Count 227 X10*3/uL (160-400); Red Blood Count 4.92 X10*6/uL (4.20-5.50); Red Cell Distribution Width 16.4 % (11.0-16.0); White Blood Count 10.2 X10*3/uL (4.8-10.8)
[2024-04-14 19:36] LABS: Bacteria Urine None Seen (None Seen); Hyaline Casts Urine 0-2 /LPF (0-2); RBC Urine >20 /HPF (0-2); Squamous Epithelial Cell Urine 0-2 /HPF (0-2); WBC Urine 0-5 /HPF (0-5)
[2024-04-14 19:39] LABS: Alanine Aminotransferase 17 U/L (0-31); Alkaline Phosphatase 98 U/L (39-117); Anion Gap 14 (12-20); Aspartate Amino Transferase 24 U/L (5-31); Bilirubin Total 0.3 mg/dL (0.0-1.0); Blood Urea Nitrogen 16 mg/dL (9-16); Calcium 9.9 mg/dL (8.4-10.2); Carbon Dioxide 27 mmol/L (22-29); Chloride 109 mmol/L (96-108); Creatinine Clr Calc Pharmacy 54.7; Estimated Glomerular Filt Rate > 60; Glucose Random 131 mg/dL (60-115); Lipase 27 U/L (8-78); Potassium 4.5 mmol/L (3.3-5.1); Sodium 145 mmol/L (135-145); Total Protein 7.3 g/dL (6.5-8.0)
[2024-04-14 20:03] LABS: Influenza A PCR NEGATIVE (Negative); Influenza B PCR NEGATIVE (Negative); Resp Syncy Virus RNA Qual PCR NEGATIVE (Negative); SARS COV2 PCR INHOUSE NEGATIVE (Negative)
[2024-04-14 20:10] VITALS: BP 153/55; PULSE 59; RESP 16; TEMP 36.8; O2SAT 95
[2024-04-14 22:37] VITALS: BP 160/71; PULSE 59; RESP 16; TEMP 36.7; O2SAT 98
[2024-04-14] MEDS: Tamsulosin HCL 0.4 MG CAPSULE PO (23:01)
[2024-04-14] MEDS: Mineral OiL enema 133 ML ENEMA PR (23:03)
[2024-04-15] VITALS (8 sets, daily range): BP systolic 112–186; BP diastolic 48–80; PULSE 60–68; RESP 16–23; TEMP 36–36.8; O2SAT 94–97
[2024-04-15] MEDS: polyethylene glycoL 3350 17 GM POWD.PACK PO (02:30)
[2024-04-15] MEDS: Sennosides/Docusate Sodium TABLET 1 TAB PO ×2 (02:30→22:34)
[2024-04-15] MEDS: ondansetron HCL 4 MG/2 ML VIAL IVPUSH (02:37)
[2024-04-15] MEDS: Morphine Sulfate 2 MG/ML CARTRIDGE 1 MG IVPUSH (02:37)
[2024-04-15] MEDS: Morphine Sulfate 2 MG/ML CARTRIDGE IVPUSH (08:06)
--- NOTE | 2024-04-15 08:23 | P.CNUR_ITS ---
History of Present Illness Consult details Consult date: 04/15/24 Narrative: CC: Left UPJ stone 78 yr female Present from [facility] with hematuria and elevated BP Denies abdominal pain, nausea and vomiting Cr 0.8, UA large blood negative nitrate CT New calculus in the left ureteropelvic junction measuring 6 mm and Hounsfield units 1281 with similar to slightly increased upstream pelvocaliectasis and similar to slightly increased peripelvic fatty haziness Suggest cysto left retrograde and stent placement Review of Systems 2 Constitutional: Constitutional: Reports as per HPI and Reports no additional constitutional complaints Cardiovascular: Cardiovascular: Reports as per HPI and Reports no additional cardiovascular complaints Respiratory: Respiratory: Reports as per HPI and Reports no additional respiratory complaints Gastrointestinal: Gastrointestinal: Reports as per HPI and Reports no additional gastrointestinal complaints Genitourinary: Genitourinary: Reports as per HPI Musculoskeletal: Musculoskeletal: Reports no additional musculoskeletal complaints and Reports as per HPI Neurologic: Reports system reviewed and no additional complaints, except as documented and Reports as per HPI PMFSH Past Medical History Medical History Annual physical exam HTN (hypertension) IDDM (insulin dependent diabetes mellitus) Diverticulitis Nephrolithiasis Cataract Hyperlipidemia Pacemaker Myocardial infarct Macular degeneration Nephrolithiasis Dementia Frequent UTI HTN (hypertension) Hypothyroid Diabetes Family History Family History Father Heart attack Mother Heart problem Heart attack Substance use disorder Surgical History Surgical History Status post lumbar spine surgery for decompression of spinal cord H/O left knee surgery Social History Social History Household Members: Children Household Members Other:: lives in assisted living Housing: House Do you presently have visiting nurse or other home services: No Alcohol intake: never Patient Tobacco Use Status: Current everyday Tobacco user Tobacco use type: Cigarette Cigarettes Per Day: 4 Years Smoked: 54 Smoked in Last 30 Days: No e-Cigarette/Vaping Use: Never Used Use of substances other than those prescribed or required for medical reasons: No Advance Directives: Yes Advance Directives on File: Yes Advance Directives Date on File: 11/05/20 service: No Current occupational status: retired Cognitive needs: No Hearing needs: No Vision needs: Yes Meds Allergies Allergy/AdvReac Type Severity Reaction Status Date / Time atorvastatin Allergy Unknown pt does Verified 04/14/24 18:20 not know azithromycin Allergy Unknown pt does Verified 04/14/24 18:20 not know ceftriaxone Allergy Unknown pt does Verified 04/14/24 18:20 not know cephalexin Allergy Unknown pt does Verified 04/14/24 18:20 not know citalopram Allergy Unknown pt does Verified 04/14/24 18:20 not know levofloxacin Allergy Unknown pt does Verified 04/14/24 18:20 not know metformin Allergy Unknown pt does Verified 04/14/24 18:20 not know nitrofurantoin Allergy Unknown pt does Verified 04/14/24 18:20 not know oxycodone Allergy Unknown pt does Verified 04/14/24 18:20 not know penicillin V Allergy Unknown pt does Verified 04/14/24 18:20 not know pioglitazone Allergy Unknown pt does Verified 04/14/24 18:20 not know repaglinide Allergy Unknown pt does Verified 04/14/24 18:20 not know rosuvastatin [Crestor] Allergy Unknown pt does Verified 04/14/24 18:20 not know sertraline Allergy Unknown pt does Verified 04/14/24 18:20 not know simvastatin Allergy Unknown pt does Verified 04/14/24 18:20 not know sulfacetamide Allergy Unknown pt does Verified 04/14/24 18:20 not know Cefuroxime Sodium Allergy Unknown pt does Uncoded 04/14/24 18:20 not know Home Medications ?Medication ?Instructions ?Recorded ?Confirmed ?Last Taken ?Type lisinopril 40 mg tablet 40 mg PO DAILY 11/04/20 04/17/23 11/03/20 History amlodipine 5 mg tablet 5 mg PO DAILY 12/14/21 04/17/23 Unknown History levothyroxine 100 mcg tablet 100 mcg PO DAILY 12/14/21 04/17/23 Unknown History rosuvastatin 20 mg tablet 20 mg PO BEDTIME 12/14/21 04/17/23 Unknown History Physical Exam 2 Vital Signs: Vital Signs: Last Vital Signs Temp 98.3 F 04/15/24 06:03 Pulse 60 04/15/24 06:03 Resp 18 04/15/24 06:03 BP 131/50 L 04/15/24 06:03 Pulse Ox 97 04/15/24 06:03 O2 Del Method Room Air 04/15/24 06:03 BMI result Body Mass Index 31.9 Const: General: cooperative, healthy appearing, comfortable and no acute distress Orientation/consciousness: patient oriented x3 HEENT: Face and sinus: Yes normal facial exam Mouth: moist mucous membranes Neck: Neck: Yes normal visual inspection, Yes full ROM and Yes trachea midline Chest: Chest palpation & inspection: normal inspection of the chest Resp: Effort & Inspection: normal respiratory effort, able to speak in complete sentences and no respiratory distress GI: Inspection: Yes normal to inspection Back/Spine/Pelvis: Cervical Spine: normal cervical lordosis Thoracic/Lumbar Spine: thoracic and lumbar spine normal to inspection Skin: General skin exam: no rashes or lesions noted Neuro: General: patient oriented x3, tone normal and moves all extremities Extrem: General: Yes normal to inspection and Yes capillary refill normal Results Labs 04/14/24 19:18 04/14/24 19:18 Labs: Abnormal lab results 04/14/24 04/14/24 Range/Units 19:18 19:19 RDW 16.4 H (11.0-16.0) % Abs Immat Gran (auto) 0.04 H (0.00-0.03) X10*3/uL Chloride 109 H (96-108) mmol/L Random Glucose 131 H (60-115) mg/dL Urine Blood Large (3+) H (Negative) Ur Leukocyte Esterase Trace H (Negative) Urine RBC >20 H (0-2) /HPF Short CBC 04/14/24 Range/Units 19:18 WBC 10.2 (4.8-10.8) X10*3/uL Hgb 13.9 (12.0-16.0) g/dl Hct 44.7 (37.0-47.0) % Plt Count 227 (160-400) X10*3/uL BMP 04/14/24 19:18 Sodium 145 Potassium 4.5 Chloride 109 H Carbon Dioxide 27 BUN 16 Creatinine 0.83 Calcium 9.9 D Liver Function 04/14/24 Range/Units 19:18 Total Bilirubin 0.3 (0.0-1.0) mg/dL AST 24 (5-31) U/L ALT 17 (0-31) U/L Alkaline Phosphatase 98 (39-117) U/L Albumin 4.0 (3.5-5.0) g/dL Urine 04/14/24 Range/Units 19:19 Urine Color Yellow Urine Appearance Clear Urine pH 6.0 (5.0-9.0) Ur Specific [place] 1.015 (1.005-1.025) Urine Protein Negative (Neg-Trace) mg/dL Urine Glucose (UA) Negative (Negative) mg/dL All other labs normal. Assessment and Plan (1) Nephrolithiasis: Status: Acute Plan Risks, benefits and alternatives to therapy were discussed. These include but are not limited to infection, bleeding, damage to local organs and tissues, need for further interventions. Anesthetic risks regarding cardiac arrhythmia, blood clots, and potential mortality were discussed. The patient understands the typical recovery time and the outpatient nature of the procedure. After consideration of these risks the patient gives full informed consent and they wish to move ahead with the procedure. - cysto left stent placement Procedures Date of Service Date of Service: 04/15/24
--- NOTE | 2024-04-15 14:09 | PC.NURSE ---
ofe cope called for update on patient. Pt gave permission to give information. Marian Singleton would like call after procedure. [phone]
--- NOTE | 2024-04-15 17:15 | HO.ANESPROP2 ---
HPI - Anesthesia Eval Consult details Narrative: for cysto, retro, ? stent PMFSH Active Problems Active Problems: All Active Problems Constipation (Acute) Left ureteral calculus (Acute) Flank pain (Acute) Pyelonephritis (Acute) Excessive cerumen in right ear canal (Acute) Balance problem (Acute) Hearing loss (Acute) UTI (urinary tract infection) (Acute) AAA (abdominal aortic aneurysm) (Acute) Weakness (Acute) Annual physical exam (Acute) GERD (gastroesophageal reflux disease) (Acute) IDDM (insulin dependent diabetes mellitus) (Acute) Diverticulitis (Acute) Nephrolithiasis (Acute) HX: anticoagulation (Acute) Pacemaker (Acute) Nephrolithiasis (Acute) Myocardial infarct (Acute) Macular degeneration (Acute) Frequent UTI (Acute) Cataract (Acute) Dementia (Acute) Hypothyroid (Acute) HTN (hypertension) (Acute) Diabetes (Acute) Hyperlipidemia (Acute) Past Medical History Medical History Annual physical exam HTN (hypertension) IDDM (insulin dependent diabetes mellitus) Diverticulitis Nephrolithiasis Cataract Hyperlipidemia Pacemaker Myocardial infarct Macular degeneration Nephrolithiasis Dementia Frequent UTI HTN (hypertension) Hypothyroid Diabetes Family History Family History Father Heart attack Mother Heart problem Heart attack Substance use disorder Surgical History Surgical History Status post lumbar spine surgery for decompression of spinal cord H/O left knee surgery Social History Social History Household Members: Children Household Members Other:: lives in assisted living Housing: House Do you presently have visiting nurse or other home services: No Alcohol intake: never Patient Tobacco Use Status: Current everyday Tobacco user Tobacco use type: Cigarette Cigarettes Per Day: 4 Years Smoked: 54 e-Cigarette/Vaping Use: Never Used Advance Directives Date on File: 11/05/20 service: No Current occupational status: retired Cognitive needs: No Hearing needs: No Vision needs: Yes Meds Allergies Allergy/AdvReac Type Severity Reaction Status Date / Time atorvastatin Allergy Unknown pt does Verified 04/14/24 18:20 not know azithromycin Allergy Unknown pt does Verified 04/14/24 18:20 not know ceftriaxone Allergy Unknown pt does Verified 04/14/24 18:20 not know cephalexin Allergy Unknown pt does Verified 04/14/24 18:20 not know citalopram Allergy Unknown pt does Verified 04/14/24 18:20 not know levofloxacin Allergy Unknown pt does Verified 04/14/24 18:20 not know metformin Allergy Unknown pt does Verified 04/14/24 18:20 not know nitrofurantoin Allergy Unknown pt does Verified 04/14/24 18:20 not know oxycodone Allergy Unknown pt does Verified 04/14/24 18:20 not know penicillin V Allergy Unknown pt does Verified 04/14/24 18:20 not know pioglitazone Allergy Unknown pt does Verified 04/14/24 18:20 not know repaglinide Allergy Unknown pt does Verified 04/14/24 18:20 not know rosuvastatin [Crestor] Allergy Unknown pt does Verified 04/14/24 18:20 not know sertraline Allergy Unknown pt does Verified 04/14/24 18:20 not know simvastatin Allergy Unknown pt does Verified 04/14/24 18:20 not know sulfacetamide Allergy Unknown pt does Verified 04/14/24 18:20 not know Cefuroxime Sodium Allergy Unknown pt does Uncoded 04/14/24 18:20 not know Home Medications ?Medication ?Instructions ?Recorded ?Confirmed ?Last Taken ?Type lisinopril 40 mg tablet 40 mg PO DAILY 11/04/20 04/17/23 11/03/20 History amlodipine 5 mg tablet 5 mg PO DAILY 12/14/21 04/17/23 Unknown History levothyroxine 100 mcg tablet 100 mcg PO DAILY 12/14/21 04/17/23 Unknown History rosuvastatin 20 mg tablet 20 mg PO BEDTIME 12/14/21 04/17/23 Unknown History Exam Height,Weight and Vital Signs: Height 5 ft 3 in Weight 81.647 kg Last Vital Signs Temp 98.2 F 04/15/24 15:47 Pulse 61 04/15/24 15:47 Resp 16 04/15/24 15:47 BP 162/48 H 04/15/24 15:47 Pulse Ox 94 04/15/24 15:47 O2 Del Method Room Air 04/15/24 15:47 Pertinent Lab Results Pertinent Lab Results: Laboratory Tests 04/14/24 04/14/24 19:18 19:19 WBC 10.2 RBC 4.92 Hgb 13.9 Hct 44.7 MCV 90.9 MCH 28.3 MCHC 31.1 RDW 16.4 H Plt Count 227 MPV 9.4 Immature Gran % (Auto) 0.4 Neut % (Auto) 68.1 Lymph % (Auto) 22.8 [place] % (Auto) 6.5 Eos % (Auto) 1.6 Baso % (Auto) 0.6 Lymph # (Auto) 2.3 [place] # (Auto) 0.7 Eos # (Auto) 0.2 Baso # (Auto) 0.1 Abs Immat Gran (auto) 0.04 H Absolute Neuts (auto) 6.9 Absolute Nucleated RBC 0.000 Nucleated RBC % (auto) 0.0 Sodium 145 Potassium 4.5 Chloride 109 H Carbon Dioxide 27 Anion Gap 14 BUN 16 Creatinine 0.83 Estim Creat Clear Calc 54.7 Estimated GFR > 60 Random Glucose 131 H Calcium 9.9 D Total Bilirubin 0.3 AST 24 ALT 17 Alkaline Phosphatase 98 Total Protein 7.3 Albumin 4.0 Lipase 27 Urine Color Yellow Urine Appearance Clear Urine pH 6.0 Ur Specific [place] 1.015 Urine Protein Negative Urine Glucose (UA) Negative Urine Ketones Negative Urine Blood Large (3+) H Urine Nitrite Negative Ur Leukocyte Esterase Trace H Urine RBC >20 H Urine WBC 0-5 Ur Squamous Epith Cells 0-2 Urine Bacteria None Seen Hyaline Casts 0-2 Influenza Type A (PCR) NEGATIVE Influenza Type B (PCR) NEGATIVE RSV RNA Qual (PCR) NEGATIVE SARS-CoV-2 RNA (RT-PCR) NEGATIVE
--- NOTE | 2024-04-15 17:25 | HO.ANESPROP2 ---
[facility] Active Problems Active Problems: All Active Problems Constipation (Acute) Left ureteral calculus (Acute) Flank pain (Acute) Pyelonephritis (Acute) Excessive cerumen in right ear canal (Acute) Balance problem (Acute) Hearing loss (Acute) UTI (urinary tract infection) (Acute) AAA (abdominal aortic aneurysm) (Acute) Weakness (Acute) Annual physical exam (Acute) GERD (gastroesophageal reflux disease) (Acute) IDDM (insulin dependent diabetes mellitus) (Acute) Diverticulitis (Acute) Nephrolithiasis (Acute) HX: anticoagulation (Acute) Pacemaker (Acute) Nephrolithiasis (Acute) Myocardial infarct (Acute) Macular degeneration (Acute) Frequent UTI (Acute) Cataract (Acute) Dementia (Acute) Hypothyroid (Acute) HTN (hypertension) (Acute) Diabetes (Acute) Hyperlipidemia (Acute) Past Medical History Medical History Annual physical exam HTN (hypertension) IDDM (insulin dependent diabetes mellitus) Diverticulitis Nephrolithiasis Cataract Hyperlipidemia Pacemaker Myocardial infarct Macular degeneration Nephrolithiasis Dementia Frequent UTI HTN (hypertension) Hypothyroid Diabetes Family History Family History Father Heart attack Mother Heart problem Heart attack Substance use disorder Family history of problems with anesthesia: No Surgical History Surgical History Status post lumbar spine surgery for decompression of spinal cord H/O left knee surgery History of Problems with Anesthesia: No Social History Social History Household Members: Children Household Members Other:: lives in assisted living Housing: House Do you presently have visiting nurse or other home services: No Alcohol intake: never Patient Tobacco Use Status: Current everyday Tobacco user Tobacco use type: Cigarette Cigarettes Per Day: 4 Years Smoked: 54 Smoked in Last 30 Days: No e-Cigarette/Vaping Use: Never Used Use of substances other than those prescribed or required for medical reasons: No Advance Directives: Yes Advance Directives on File: Yes Advance Directives Date on File: 11/05/20 service: No Current occupational status: retired Cognitive needs: No Hearing needs: No Vision needs: Yes Meds Allergies Allergy/AdvReac Type Severity Reaction Status Date / Time atorvastatin Allergy Unknown pt does Verified 04/14/24 18:20 not know azithromycin Allergy Unknown pt does Verified 04/14/24 18:20 not know ceftriaxone Allergy Unknown pt does Verified 04/14/24 18:20 not know cephalexin Allergy Unknown pt does Verified 04/14/24 18:20 not know citalopram Allergy Unknown pt does Verified 04/14/24 18:20 not know levofloxacin Allergy Unknown pt does Verified 04/14/24 18:20 not know metformin Allergy Unknown pt does Verified 04/14/24 18:20 not know nitrofurantoin Allergy Unknown pt does Verified 04/14/24 18:20 not know oxycodone Allergy Unknown pt does Verified 04/14/24 18:20 not know penicillin V Allergy Unknown pt does Verified 04/14/24 18:20 not know pioglitazone Allergy Unknown pt does Verified 04/14/24 18:20 not know repaglinide Allergy Unknown pt does Verified 04/14/24 18:20 not know rosuvastatin [Crestor] Allergy Unknown pt does Verified 04/14/24 18:20 not know sertraline Allergy Unknown pt does Verified 04/14/24 18:20 not know simvastatin Allergy Unknown pt does Verified 04/14/24 18:20 not know sulfacetamide Allergy Unknown pt does Verified 04/14/24 18:20 not know Cefuroxime Sodium Allergy Unknown pt does Uncoded 04/14/24 18:20 not know Home Medications ?Medication ?Instructions ?Recorded ?Confirmed ?Last Taken ?Type lisinopril 40 mg tablet 40 mg PO DAILY 11/04/20 04/17/23 11/03/20 History amlodipine 5 mg tablet 5 mg PO DAILY 12/14/21 04/17/23 Unknown History levothyroxine 100 mcg tablet 100 mcg PO DAILY 12/14/21 04/17/23 Unknown History rosuvastatin 20 mg tablet 20 mg PO BEDTIME 12/14/21 04/17/23 Unknown History Exam Height,Weight and Vital Signs: Height 5 ft 3 in Weight 81.647 kg Last Vital Signs Temp 98.2 F 04/15/24 15:47 Pulse 61 04/15/24 15:47 Resp 16 04/15/24 15:47 BP 162/48 H 04/15/24 15:47 Pulse Ox 94 04/15/24 15:47 O2 Del Method Room Air 04/15/24 15:47 Pertinent Lab Results Pertinent Lab Results: Laboratory Tests 04/14/24 04/14/24 19:18 19:19 WBC 10.2 RBC 4.92 Hgb 13.9 Hct 44.7 MCV 90.9 MCH 28.3 MCHC 31.1 RDW 16.4 H Plt Count 227 MPV 9.4 Immature Gran % (Auto) 0.4 Neut % (Auto) 68.1 Lymph % (Auto) 22.8 [place] % (Auto) 6.5 Eos % (Auto) 1.6 Baso % (Auto) 0.6 Lymph # (Auto) 2.3 [place] # (Auto) 0.7 Eos # (Auto) 0.2 Baso # (Auto) 0.1 Abs Immat Gran (auto) 0.04 H Absolute Neuts (auto) 6.9 Absolute Nucleated RBC 0.000 Nucleated RBC % (auto) 0.0 Sodium 145 Potassium 4.5 Chloride 109 H Carbon Dioxide 27 Anion Gap 14 BUN 16 Creatinine 0.83 Estim Creat Clear Calc 54.7 Estimated GFR > 60 Random Glucose 131 H Calcium 9.9 D Total Bilirubin 0.3 AST 24 ALT 17 Alkaline Phosphatase 98 Total Protein 7.3 Albumin 4.0 Lipase 27 Urine Color Yellow Urine Appearance Clear Urine pH 6.0 Ur Specific [place] 1.015 Urine Protein Negative Urine Glucose (UA) Negative Urine Ketones Negative Urine Blood Large (3+) H Urine Nitrite Negative Ur Leukocyte Esterase Trace H Urine RBC >20 H Urine WBC 0-5 Ur Squamous Epith Cells 0-2 Urine Bacteria None Seen Hyaline Casts 0-2 Influenza Type A (PCR) NEGATIVE Influenza Type B (PCR) NEGATIVE RSV RNA Qual (PCR) NEGATIVE SARS-CoV-2 RNA (RT-PCR) NEGATIVE Airway Mallampati Class: II TM Dist: >3cm Neck ROM: Full Denture: Upper and Lower Assessment and Plan Assessment Anesthesia Assessment: Anesthesia Plan Discussed and Chart Reviewed Final Anesthetic Review Family History of Problems with Anesthesia: No History of Problems with Anesthesia: No NPO: Yes ASA Class: III Final Preanesthetic Review: No Changes in Pt Med Stat, Meds/Allgs Chart Reviewed, Consent Obtained/Reviewed and Anes Risks/Benef Reviewed Patient Risk: Intermediate Procedure Risk: Low Anesthetic Plan Anesthetic Plan: GA Disposition: Standard PACU
--- NOTE | 2024-04-15 17:32 | ECG_ITS ---
Test Reason : pre-op Blood Pressure : / mmHG Vent. Rate : 060 BPM Atrial Rate : 060 BPM P-R Int : 230 ms QRS Dur : 108 ms QT Int : 516 ms P-R-T Axes : 000 -26 066 degrees QTc Int : 516 ms Atrial-paced rhythm with prolonged AV conduction Incomplete right bundle branch block Inferior infarct , age undetermined Prolonged QT Abnormal ECG When compared to the previous EKG of No significant changes seen Referred By: Mitzy Lee Electronically Signed By:Abhijeet Aldana
--- NOTE | 2024-04-15 19:01 | PM.IMHP ---
History of Present Illness Date of Service: 04/15/24 Chief Complaint: Prolonged QTc An 78 years old lad with PMH of CAD s/p Atrial pacing, AAA, GERD, DM, Dementia, HTN among others who is admitted for left uretropelvic junctional stone with hydronephrosis. Noted to have higher than baseline QTc. No chest pain, palpitations, SOB, nausea, vomiting, diarrhea or urinary symptoms. Anesthesia cancelled the procedure and recommended further work up before going ahed with it. Looking back her QTc was always close to 500. Today it is 520. IT seems the patient was on Ciprofloxacin and she takes Donepezil at home. Electrolytes within acceptable levels. admitted for observation. Review of Systems Review of Systems: No fever, chills or weakness No chest pain, palpitation No shortness of breath or coughing No abdominal pain, nausea or vomiting No urinary symptoms No any rash or wounds [facility] Medical History Annual physical exam HTN (hypertension) IDDM (insulin dependent diabetes mellitus) Diverticulitis Nephrolithiasis Cataract Hyperlipidemia Pacemaker Myocardial infarct Macular degeneration Nephrolithiasis Dementia Frequent UTI HTN (hypertension) Hypothyroid Diabetes Family History Father Heart attack Mother Heart problem Heart attack Substance use disorder Surgical History Status post lumbar spine surgery for decompression of spinal cord H/O left knee surgery Social History Household Members: Children Household Members Other:: lives in assisted living Housing: House Do you presently have visiting nurse or other home services: No Alcohol intake: never Patient Tobacco Use Status: Current everyday Tobacco user Tobacco use type: Cigarette Cigarettes Per Day: 4 Years Smoked: 54 Smoked in Last 30 Days: No e-Cigarette/Vaping Use: Never Used Use of substances other than those prescribed or required for medical reasons: No Advance Directives: Yes Advance Directives on File: Yes Advance Directives Date on File: 11/05/20 service: No Current occupational status: retired Cognitive needs: No Hearing needs: No Vision needs: Yes Meds Allergies Allergy/AdvReac Type Severity Reaction Status Date / Time atorvastatin Allergy Unknown pt does Verified 04/14/24 18:20 not know azithromycin Allergy Unknown pt does Verified 04/14/24 18:20 not know ceftriaxone Allergy Unknown pt does Verified 04/14/24 18:20 not know cephalexin Allergy Unknown pt does Verified 04/14/24 18:20 not know citalopram Allergy Unknown pt does Verified 04/14/24 18:20 not know levofloxacin Allergy Unknown pt does Verified 04/14/24 18:20 not know metformin Allergy Unknown pt does Verified 04/14/24 18:20 not know nitrofurantoin Allergy Unknown pt does Verified 04/14/24 18:20 not know oxycodone Allergy Unknown pt does Verified 04/14/24 18:20 not know penicillin V Allergy Unknown pt does Verified 04/14/24 18:20 not know pioglitazone Allergy Unknown pt does Verified 04/14/24 18:20 not know repaglinide Allergy Unknown pt does Verified 04/14/24 18:20 not know rosuvastatin [Crestor] Allergy Unknown pt does Verified 04/14/24 18:20 not know sertraline Allergy Unknown pt does Verified 04/14/24 18:20 not know simvastatin Allergy Unknown pt does Verified 04/14/24 18:20 not know sulfacetamide Allergy Unknown pt does Verified 04/14/24 18:20 not know Cefuroxime Sodium Allergy Unknown pt does Uncoded 04/14/24 18:20 not know Active Medications: Current Medications Acetaminophen (Acetaminophen 325 Mg Tablet) 650 mg PO Q6H PRN PRN Reason: Pain, Mild (Pain Scale 1-3), fever or headache Aspirin (Aspirin Enteric Coated 81 Mg Tablet.Dr) 81 mg PO ONCE ONE Stop: 04/15/24 18:56 Calcium Carbonate (Calcium Carbonate 750 Mg Tab.Chew) 750 mg PO Q4H PRN PRN Reason: Heartburn Droperidol (Droperidol 5 Mg/2 Ml Vial) 0.625 mg IVPUSH ONCE PRN PRN Reason: intractable nausea Stop: 04/15/24 23:44 Fentanyl (Fentanyl Citrate/Pf 100 Mcg/2 Ml Vial) 25 mcg IVPUSH Q5M PRN PRN Reason: Pain, Moderate to Severe (Pain Scale 4-10) Stop: 04/15/24 23:44 Ketorolac Tromethamine (Ketorolac Tromethamine 30 Mg/Ml Vial) 15 mg IVPUSH Q6H PRN PRN Reason: Pain, Moderate(Pain Scale 4-6) Stop: 04/20/24 18:54 Levothyroxine Sodium (Levothyroxine Sodium 100 Mcg Tablet) 100 mcg PO DAILY@0600 [facility] Magnesium Hydroxide (Milk Of Magnesia 30 Ml Oral.Susp) 30 ml PO DAILY PRN PRN Reason: Constipation Melatonin (Melatonin 3 Mg Tablet) 6 mg PO BEDTIME PRN PRN Reason: Insomnia Metoprolol Succinate (Metoprolol Succinate Er 50 Mg Tab.Er.24h) 50 mg PO DAILY [facility]; Protocol Morphine Sulfate (Morphine Sulfate 4 Mg/Ml Cartridge) 2 mg IVPUSH Q4H PRN; Protocol PRN Reason: Pain, Severe (Pain Scale 7-10) Naloxone HCl (Naloxone Hcl 0.4 Mg/Ml Vial) 0.04 mg IVPUSH Q5M PRN PRN Reason: Excessive sedation or RR < 8 Ondansetron HCl (Ondansetron Hcl 4 Mg/2 Ml Vial) 4 mg IVPUSH Q8H PRN PRN Reason: Nausea and Vomiting Senna/Docusate Sodium (Sennosides/Docusate Sodium Tablet) 1 tab PO BID [facility] Sodium Chloride (0.9 % Sodium Chloride Flush 3 Ml Syringe) [facility] Medications ?Medication ?Instructions ?Recorded ?Confirmed ?Last Taken ?Type lisinopril 40 mg tablet 40 mg PO DAILY 11/04/20 04/17/23 11/03/20 History amlodipine 5 mg tablet 5 mg PO DAILY 12/14/21 04/17/23 Unknown History levothyroxine 100 mcg tablet 100 mcg PO DAILY 12/14/21 04/17/23 Unknown History rosuvastatin 20 mg tablet 20 mg PO BEDTIME 12/14/21 04/17/23 Unknown History Physical Exam Vital Signs and Narrative: Vital Signs: Last Vital Signs Temp 98.2 F 04/15/24 15:47 Pulse 61 04/15/24 15:47 Resp 16 04/15/24 15:47 BP 162/48 H 04/15/24 15:47 Pulse Ox 94 04/15/24 15:47 O2 Del Method Room Air 04/15/24 15:47 BMI result Body Mass Index 31.9 Const: Other: Constitutional : Awake, interactive, not in distress Neck : Normal inspection, Supple Cardiovascular : RRR, no JVP, no lower extremity edema Respiratory : good bilateral air entry, no crackles, wheezes or rhonchi Gastrointestinal: soft, lax, Normal bowel sounds, Non tender Skin : Warm, Dry Neurological : Alert & oriented to self and place, No focal deficit Results Labs 04/14/24 19:18 04/14/24 19:18 Labs: Laboratory Results - last 24 hr 04/14/24 04/14/24 19:18 19:19 MCV 90.9 MCH 28.3 MCHC 31.1 RDW 16.4 H Plt Count 227 MPV 9.4 Immature Gran % (Auto) 0.4 Neut % (Auto) 68.1 Lymph % (Auto) 22.8 Swisher % (Auto) 6.5 Eos % (Auto) 1.6 Baso % (Auto) 0.6 Lymph # (Auto) 2.3 Swisher # (Auto) 0.7 Eos # (Auto) 0.2 Baso # (Auto) 0.1 Abs Immat Gran (auto) 0.04 H Absolute Neuts (auto) 6.9 Absolute Nucleated RBC 0.000 Nucleated RBC % (auto) 0.0 Anion Gap 14 Estim Creat Clear Calc 54.7 Estimated GFR > 60 Random Glucose 131 H Calcium 9.9 D Total Bilirubin 0.3 AST 24 ALT 17 Alkaline Phosphatase 98 Total Protein 7.3 Albumin 4.0 Lipase 27 Urine Color Yellow Urine Appearance Clear Urine pH 6.0 Ur Specific [place] 1.015 Urine Protein Negative Urine Glucose (UA) Negative Urine Ketones Negative Urine Blood Large (3+) H Urine Nitrite Negative Ur Leukocyte Esterase Trace H Urine RBC >20 H Urine WBC 0-5 Ur Squamous Epith Cells 0-2 Urine Bacteria None Seen Hyaline Casts 0-2 Influenza Type A (PCR) NEGATIVE Influenza Type B (PCR) NEGATIVE RSV RNA Qual (PCR) NEGATIVE SARS-CoV-2 RNA (RT-PCR) NEGATIVE Imaging Radiologist's Impressions: Impressions Abdomen/Pelvis CT 04/14/24 18:50 IMPRESSION: 1. New 6 mm calculus in the left ureteropelvic junction with similar to slightly increased upstream pelvocaliectasis and similar to slightly increased peripelvic fatty haziness. Multiple additional renal calculi and parenchymal calcifications are stable. 2. Very large stool ball in the rectum and sigmoid with suggestion of mild wall thickening. Correlate clinically for stercoral colitis. 3. Stable 4.1 cm infrarenal abdominal aorta aneurysm. Based on published guidelines in J Am Tunde Radiol 2013; 10(10):789-794 and J Vasc Surg. 2018; 67:2-77, the recommendation for an abdominal aortic aneurysm with diameter 4.0-4.4 cm is vascular consultation and subsequent follow-up every 12 months. Electronically signed by: Norah Hull MD 04/14/2024 09:18 PM EST RP Head CT 04/14/24 18:50 IMPRESSION: 1. No evidence of acute intracranial hemorrhage or edematous territorial infarction. 2. 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 Moderate underlying microangiopathy and generalized cerebral volume loss. Electronically signed by: Blake Leavitt DO 04/14/2024 08:55 PM EST RP Assessment and Plan (1) Constipation: Status: Acute (2) Left ureteral calculus: Status: Acute (3) Flank pain: Status: Acute Plan An 78 years old lad with PMH of CAD s/p Atrial pacing, AAA, GERD, DM, Dementia, HTN among others who is admitted for left uretropelvic junctional stone with hydronephrosis. Prolonged QTc related to Ciprofloxacin and Donepezil check Mg level Give Metoprolol for now check EKG in morning Limited Echo and cardiology consult for clearance for surgery keep on Tele Uretral stone w obstruction, acute Urology to do retrograde cystoscopy w basketing once medically clear no evidence of infx Hx CAD, ASA and Plavix on hold , Metoprolol , statin Gout, Allopurinol GERD, Famotidine DMII, Humalog, lantus, SSI DVT PPx SCDs Patient will be observed overnight pending surgical intervention Quality Stroke Does the patient have a stroke diagnosis?: No VTE Prior VTE?: No VTE Risk Level:: Medical - moderate - high VTE Device Contraindication: N/A - Device Ordered VTE Drug Contraindication: Treatment Not Indicated
[2024-04-15 19:18] LABS: Magnesium 2.1 mg/dL (1.6-2.6)
[2024-04-15 21:29] LABS: Glucose, Whole Blood 265 mg/dL (60-115)
[2024-04-15] MEDS: Metoprolol Succinate ER 50 MG TAB.ER.24H PO (22:34)
[2024-04-15] MEDS: Insulin Lispro 100 UNIT/ML 3 ML VIAL SUBCUT (22:34)
[2024-04-15] MEDS: Morphine Sulfate 4 MG/ML CARTRIDGE 2 MG IVPUSH (22:44)
[2024-04-16] VITALS (8 sets, daily range): BP systolic 119–164; BP diastolic 58–76; PULSE 59–61; RESP 16–20; TEMP 36.2–37; O2SAT 92–96
--- NOTE | 2024-04-16 | ECG_ITS ---
Test Reason : F U QTc Blood Pressure : / mmHG Vent. Rate : 060 BPM Atrial Rate : 060 BPM P-R Int : 288 ms QRS Dur : 116 ms QT Int : 492 ms P-R-T Axes : 000 -34 103 degrees QTc Int : 492 ms Atrial-paced rhythm with prolonged AV conduction Left axis deviation Incomplete right bundle branch block Minimal voltage criteria for LVH, may be normal variant ( Garber product ) Inferior infarct (cited on or before 04-NOV-2020) Abnormal ECG When compared with ECG of 16-APR-2024 07:42, No significant change was found Referred By: Mitzy Lee Electronically Signed By:Abhijeet Aldana
--- NOTE | 2024-04-16 | ECG_ITS ---
Test Reason : QTC CHECK Blood Pressure : / mmHG Vent. Rate : 060 BPM Atrial Rate : 060 BPM P-R Int : 252 ms QRS Dur : 114 ms QT Int : 530 ms P-R-T Axes : 000 -36 091 degrees QTc Int : 530 ms Atrial-paced rhythm with prolonged AV conduction Left axis deviation Incomplete right bundle branch block Inferior infarct (cited on or before 04-NOV-2020) Prolonged QT Abnormal ECG When compared with ECG of 15-APR-2024 17:25, Nonspecific T wave abnormality no longer evident in Anterior leads Referred By: Mitzy Lee Electronically Signed By:Abhijeet Aldana
[2024-04-16] MEDS: 0.9 % Sodium Chloride Flush 3 ML SYRINGE IVFLUSH ×2 (01:23→08:59)
[2024-04-16] MEDS: Levothyroxine Sodium 100 MCG TABLET PO (05:42)
--- NOTE | 2024-04-16 07:00 | CA_ITS ---
Transthoracic Echocardiogram Patient (Last, First, Middle): China Carter, Gender: Female Date of : 1945 Age: 78 Procedure Date: 04/16/2024 Procedure Type: Transthoracic Echocardiogram Location: [facility] [place] Height: 160.02 cm Weight: 81.65 kg BSA: 1.85 m2 Heart Rate: bpm BP: 130 / 58 mmHg Varnish Melter Helper: Referring MD: Mitzy Lee MD Symptoms: Prolonged QTc. surgical clearance. Study Quality: Adequate ECG Rhythm: Sinus Conclusions: - Normal left ventricular cavity size. There is mildly increased left ventricular wall thickness. The left ventricular systolic function is low normal. The visually estimated ejection fraction is between 50-55%. - Elevated filling pressures. - The basal inferior segment is akinetic. - Normal right ventricular cavity size and systolic function. There is a pacemaker wire seen in the right ventricle. - There is mild mitral valve regurgitation. - There is mild dilatation of the ascending aorta measuring 3.70 cm. Findings Left Ventricle Normal left ventricular cavity size. There is mildly increased left ventricular wall thickness. The left ventricular systolic function is low normal. The visually estimated ejection fraction is between 50-55%. There is evidence of regional wall motion abnormalities. Abnormal diastolic function is noted. Spectral Doppler is indicative of an impaired relaxation filling pattern. Elevated filling pressures. Wall Motion Rest Echo Findings The basal inferior segment is akinetic. Right Ventricle Normal right ventricular cavity size and systolic function. There is a pacemaker wire seen in the right ventricle. Atria The left atrium is likely dilated. Aortic Valve There is mild calcification of the aortic valve. There is no aortic valve stenosis. There is no aortic valve regurgitation. Mitral Valve The mitral valve appears normal. There is mild mitral valve regurgitation. There is no mitral valve stenosis. Pulmonic Valve The pulmonic valve is likely normal. Tricuspid Valve Normal tricuspid valve structure. There is trace tricuspid valve regurgitation. Normal right atrial pressure. There is no evidence of pulmonary hypertension. Great Vessels There is mild dilatation of the ascending aorta measuring 3.70 cm. Venous The inferior vena cava is normal in size and collapses greater than 50% with inspiration. Pericardium/Pleural There is no evidence of pericardial effusion. Prior Study Comparison Changes noted compared to prior study dated: 11/05/2020. Low normal LVEF, elevated filling pressures. Measurements 2D Linear Measurements IVSd: 1.18 0.6-0.9/0.6-1.0 cm LVIDd: 4.56 3.9-5.3/4.2-5.9 cm LVIDd Index: 2.46 2.4-3.2/2.2-3.1 cm/m2 LVIDs: 3.04 2.0-3.6 cm LVPWd: 1.15 0.7-1.1 cm Ao Root: 3.20 2.1-3.5 cm LA Diam: 3.70 2.7-3.8/3.0-4.0 cm LAIDs Index: 2.00 1.5-2.3 cm/m2 LV Mass: 241.55 67-162/88-224 g LV Mass Index: 130.57 43-95/49-115 g/m2 LVOT Diam: 2.20 3.0+(-)1.3 cm 2D Systolic Function EF 4C: 49.50 >55% EF 2C: 55.80 >55% EF BiP: 52.50 >55% Mitral Valve MV Pk E: 0.67 MV PK A: 1.10 MV Decel Time: 228.00 E/A: 0.60 E'Lateral: 4.03 E'Medial: 3.37 E/E' Med: 20.00 E/E' Lat: 16.70 PHT: 67.00 MVA PHT: 3.28 Decel [place]: 2.95 Aortic Valve AoV Pk Kiko: 1.30 AoV Mn Kiko: 0.92 AoV VTI: 0.36 AoV Pk Grad: 7.00 Aov Mn Grad: 4.00 LUIS FERNANDO Cont.VTI: 2.00 LVOT LVOT Pk Kiko: 0.71 LVOT Mn Kiko: 0.47 LVOT VTI: 0.19 LVOT Pk Grad: 2.00 LVOT Mn Grad: 1.00 LVOT Diam: 2.20 LVOT Area: 3.80 Diastolic Function MV Pk E: 0.67 MV Pk A: 1.10 E/A: 0.60 E'Medial: 3.37 E/E' Med: 20.00 E' Laterial: 4.03 E/E' Lat: 16.70 Right Ventricle TAPSE (mm): 24.00 TVS' Kiko: 11.00 Tricuspid Valve TR Pk Kiko: 2.23 TR Pk Grad: 20.00 RA Press: 3.00 RVSP: 23.00 Great Vessels Aorta Ao Root-2D: 3.20 2.0-3.7 cm Ao Asc: 3.70 2.1-3.4 cm Pulmonary Valve PV Pk Kiko: 0.75 Peak PV Grad: 2.00 Updated in Other Vendor System with Status of Final Abhijeet Aldana MD electronically signed on 04/16/2024 9:04:36 PM with status of Final
[2024-04-16 07:27] LABS: Anion Gap 12 (12-20); Blood Urea Nitrogen 18 mg/dL (9-16); Carbon Dioxide 26 mmol/L (22-29); Chloride 109 mmol/L (96-108); Estimated Glomerular Filt Rate > 60; Glucose Random 86 mg/dL (60-115); Magnesium 2.1 mg/dL (1.6-2.6); Potassium 3.8 mmol/L (3.3-5.1); Sodium 143 mmol/L (135-145)
[2024-04-16 07:40] LABS: Calcium 8.9 mg/dL (8.4-10.2)
[2024-04-16 07:48] LABS: Glucose, Whole Blood 95 mg/dL (60-115)
[2024-04-16] MEDS: Sennosides/Docusate Sodium TABLET 1 TAB PO (08:58)
[2024-04-16] MEDS: Metoprolol Succinate ER 50 MG TAB.ER.24H PO (08:58)
[2024-04-16] MEDS: Morphine Sulfate 4 MG/ML CARTRIDGE 2 MG IVPUSH (08:59)
--- NOTE | 2024-04-16 09:48 | MHC.CM.PN ---
Jeanette 04/16/24, Pt lives at [facility], they provide assistance with medication, ADL's and meals. Her daughter Marian is her HCP and Guardian, paperwork is not on file, copies were requested. Pt does not use DME, has used a [facility] is the past. PCP is: Dr. Morales. Transport home at DC is via family or [facility]. DCP: home with services. Cm to follow and assist with DC plan.
[2024-04-16] MEDS: Lactated Ringers 1,000 ML 80 ML IVCONT ×2 (10:48→21:31)
--- NOTE | 2024-04-16 11:05 | P.PNIM_ITS ---
Subjective Subjective Date of Service: 04/16/24 Interval History: seen and evaluated feels better overall no fever or back pain Review of Systems Review of Systems: Yes all other systems are reviewed and are negative Physical Exam 2 Vital Signs: Vital Signs: Last Vital Signs Temp 98.1 F 04/16/24 10:49 Pulse 60 04/16/24 10:49 Resp 18 04/16/24 10:49 BP 148/76 H 04/16/24 10:49 Pulse Ox 96 04/16/24 10:49 O2 Del Method Room Air 04/16/24 10:49 BMI result Body Mass Index 31.9 Const: Other: Constitutional : Awake, interactive, not in distress Neck : Normal inspection, Supple Cardiovascular : RRR, no JVP, no lower extremity edema Respiratory : good bilateral air entry, no crackles, wheezes or rhonchi Gastrointestinal: soft, lax, Normal bowel sounds, Non tender Skin : Warm, Dry Neurological : Alert & oriented to self and place, No focal deficit Objective Data Active Medications Acetaminophen (Acetaminophen 325 Mg Tablet) 650 mg PO Q6H PRN PRN Reason: Pain, Mild (Pain Scale 1-3), fever or headache Calcium Carbonate (Calcium Carbonate 750 Mg Tab.Chew) 750 mg PO Q4H PRN PRN Reason: Heartburn Lactated Ringer's (Lr) 1,000 mls @ 80 mls/hr IVCONT .[id number] [facility] Last Admin: 04/16/24 10:48 Dose: 80 mls/hr Documented By: MALDONADO Insulin Human Lispro (Insulin Lispro 100 Unit/Ml 3 Ml Vial) [address]; Protocol Last Admin: 04/16/24 08:48 Dose: Not Given Documented By: MALDONADO Non-Admin Reason: No Insulin Coverage Ketorolac Tromethamine (Ketorolac Tromethamine 30 Mg/Ml Vial) 15 mg IVPUSH Q6H PRN PRN Reason: Pain, Moderate(Pain Scale 4-6) Stop: 04/20/24 18:54 Levothyroxine Sodium (Levothyroxine Sodium 100 Mcg Tablet) 100 mcg PO DAILY@0600 [facility] Last Admin: 04/16/24 05:42 Dose: 100 mcg Documented By: KETAN Magnesium Hydroxide (Milk Of Magnesia 30 Ml Oral.Susp) 30 ml PO DAILY PRN PRN Reason: Constipation Melatonin (Melatonin 3 Mg Tablet) 6 mg PO BEDTIME PRN PRN Reason: Insomnia Metoprolol Succinate (Metoprolol Succinate Er 50 Mg Tab.Er.24h) 50 mg PO DAILY [facility]; Protocol Last Admin: 04/16/24 08:58 Dose: 50 mg Documented By: MALDONADO Morphine Sulfate (Morphine Sulfate 4 Mg/Ml Cartridge) 2 mg IVPUSH Q4H PRN; Protocol PRN Reason: Pain, Severe (Pain Scale 7-10) Last Admin: 04/16/24 08:59 Dose: 2 mg Documented By: MALDONADO Naloxone HCl (Naloxone Hcl 0.4 Mg/Ml Vial) 0.04 mg IVPUSH Q5M PRN PRN Reason: Excessive sedation or RR < 8 Ondansetron HCl (Ondansetron Hcl 4 Mg/2 Ml Vial) 4 mg IVPUSH Q8H PRN PRN Reason: Nausea and Vomiting Senna/Docusate Sodium (Sennosides/Docusate Sodium Tablet) 1 tab PO BID [facility] Last Admin: 04/16/24 08:58 Dose: 1 tab Documented By: MALDONADO Sodium Chloride (0.9 % Sodium Chloride Flush 3 Ml Syringe) 3 ml IVFLUSH QSHIFT [facility] Last Admin: 04/16/24 08:59 Dose: 3 ml Documented By: MALDONADO Labs 04/14/24 19:18 04/16/24 06:15 Labs: Laboratory Results - last 24 hr 04/14/24 04/15/24 04/16/24 19:18 21:22 06:15 Anion Gap 12 Estim Creat Clear Calc 63.0 Estimated GFR > 60 POC Glucose 265 H Random Glucose 86 Calcium 8.9 D Magnesium 2.1 2.1 04/16/24 07:43 Anion Gap Estim Creat Clear Calc Estimated GFR POC Glucose 95 Random Glucose Calcium Magnesium Assessment and Plan (1) Constipation: Status: Acute (2) Left ureteral calculus: Status: Acute (3) Prolonged QT interval: Status: Acute Plan An 78 years old lad with PMH of CAD s/p Atrial pacing, AAA, GERD, DM, Dementia, HTN among others who is admitted for left uretropelvic junctional stone with hydronephrosis. Prolonged QTc Asymptomatic, repeated QTc of 530 , concern for anesthasia who held surgical procedure hold Donepezil normal Mg level repeat EKG as needed Limited Echo and cardiology consult for clearance for surgery keep on Tele Uretral stone w obstruction, acute Urology to do retrograde cystoscopy w basketing once medically clear no evidence of infx Hx CAD, ASA and Plavix on hold , Metoprolol , statin Gout, Allopurinol GERD, Famotidine DMII, Humalog, lantus, SSI DVT PPx SCDs Patient will be observed overnight pending surgical intervention Quality Stroke Does the patient have a stroke diagnosis?: No VTE Prior VTE?: No VTE Risk Level:: Medical - moderate - high VTE Device Contraindication: N/A - Device Ordered VTE Drug Contraindication: Treatment Not Indicated
[2024-04-16 11:32] LABS: Glucose, Whole Blood 93 mg/dL (60-115)
--- NOTE | 2024-04-16 11:34 | P.CONCA_ITS ---
History of Present Illness History of Present Illness Date of Service: 04/16/24 Requesting physician: Mitzy Lee Chief complaint: QTc prolongation Narrative: 78-year-old female here for hematuria and left UPJ stone. She has prolonged QT interval on the ECG. She has no syncope or palpitations. She has history of pacemaker placement in the past and has an atrial paced rhythm. Her QT intervals even going back to 2020 were prolonged in 480s. In 2022 year QT interval was around 500. Recent EKGs showing QT interval of 520. She has an atrial paced rhythm. As mentioned she has no arrhythmia in the past or syncopal episodes. No obvious medicines to explain the QT prolongation currently. [facility] Past Medical History Medical History Annual physical exam HTN (hypertension) IDDM (insulin dependent diabetes mellitus) Diverticulitis Nephrolithiasis Cataract Hyperlipidemia Pacemaker Myocardial infarct Macular degeneration Nephrolithiasis Dementia Frequent UTI HTN (hypertension) Hypothyroid Diabetes Family History Family History Father Heart attack Mother Heart problem Heart attack Substance use disorder Surgical History Surgical History Status post lumbar spine surgery for decompression of spinal cord H/O left knee surgery Social History Social History Household Members: None Household Members Other:: lives in assisted living Housing: Assisted Living Facility Housing Other:: Anni Pena Do you presently have visiting nurse or other home services: Yes Alcohol intake: never Patient Tobacco Use Status: Former Tobacco user Tobacco use type: Cigarette Cigarettes Per Day: 4 Years Smoked: 54 e-Cigarette/Vaping Use: Never Used Advance Directives Date on File: 11/05/20 service: No Current occupational status: retired Cognitive needs: No Hearing needs: No Vision needs: Yes Meds Allergies Allergy/AdvReac Type Severity Reaction Status Date / Time atorvastatin Allergy Unknown pt does Verified 04/14/24 18:20 not know azithromycin Allergy Unknown pt does Verified 04/14/24 18:20 not know ceftriaxone Allergy Unknown pt does Verified 04/14/24 18:20 not know cephalexin Allergy Unknown pt does Verified 04/14/24 18:20 not know citalopram Allergy Unknown pt does Verified 04/14/24 18:20 not know levofloxacin Allergy Unknown pt does Verified 04/14/24 18:20 not know metformin Allergy Unknown pt does Verified 04/14/24 18:20 not know nitrofurantoin Allergy Unknown pt does Verified 04/14/24 18:20 not know oxycodone Allergy Unknown pt does Verified 04/14/24 18:20 not know penicillin V Allergy Unknown pt does Verified 04/14/24 18:20 not know pioglitazone Allergy Unknown pt does Verified 04/14/24 18:20 not know repaglinide Allergy Unknown pt does Verified 04/14/24 18:20 not know rosuvastatin [Crestor] Allergy Unknown pt does Verified 04/14/24 18:20 not know sertraline Allergy Unknown pt does Verified 04/14/24 18:20 not know simvastatin Allergy Unknown pt does Verified 04/14/24 18:20 not know sulfacetamide Allergy Unknown pt does Verified 04/14/24 18:20 not know Cefuroxime Sodium Allergy Unknown pt does Uncoded 04/14/24 18:20 not know Active Medications: Current Medications Acetaminophen (Acetaminophen 325 Mg Tablet) 650 mg PO Q6H PRN PRN Reason: Pain, Mild (Pain Scale 1-3), fever or headache Calcium Carbonate (Calcium Carbonate 750 Mg Tab.Chew) 750 mg PO Q4H PRN PRN Reason: Heartburn Lactated Ringer's (Lr) 1,000 mls @ 80 mls/hr IVCONT .[id number] [facility] Last Admin: 04/16/24 10:48 Dose: 80 mls/hr Insulin Human Lispro (Insulin Lispro 100 Unit/Ml 3 Ml Vial) 0 unit SUBCUT QIDACHS [facility]; Protocol Last Admin: 04/16/24 08:48 Dose: Not Given Ketorolac Tromethamine (Ketorolac Tromethamine 30 Mg/Ml Vial) 15 mg IVPUSH Q6H PRN PRN Reason: Pain, Moderate(Pain Scale 4-6) Stop: 04/20/24 18:54 Levothyroxine Sodium (Levothyroxine Sodium 100 Mcg Tablet) 100 mcg PO DAILY@0600 [facility] Last Admin: 04/16/24 05:42 Dose: 100 mcg Magnesium Hydroxide (Milk Of Magnesia 30 Ml Oral.Susp) 30 ml PO DAILY PRN PRN Reason: Constipation Melatonin (Melatonin 3 Mg Tablet) 6 mg PO BEDTIME PRN PRN Reason: Insomnia Metoprolol Succinate (Metoprolol Succinate Er 50 Mg Tab.Er.24h) 50 mg PO DAILY [facility]; Protocol Last Admin: 04/16/24 08:58 Dose: 50 mg Morphine Sulfate (Morphine Sulfate 4 Mg/Ml Cartridge) 2 mg IVPUSH Q4H PRN; Protocol PRN Reason: Pain, Severe (Pain Scale 7-10) Last Admin: 04/16/24 08:59 Dose: 2 mg Naloxone HCl (Naloxone Hcl 0.4 Mg/Ml Vial) 0.04 mg IVPUSH Q5M PRN PRN Reason: Excessive sedation or RR < 8 Ondansetron HCl (Ondansetron Hcl 4 Mg/2 Ml Vial) 4 mg IVPUSH Q8H PRN PRN Reason: Nausea and Vomiting Senna/Docusate Sodium (Sennosides/Docusate Sodium Tablet) 1 tab PO BID [facility] Last Admin: 04/16/24 08:58 Dose: 1 tab Sodium Chloride (0.9 % Sodium Chloride Flush 3 Ml Syringe) 3 ml IVFLUSH QSHIFT [facility] Last Admin: 04/16/24 08:59 Dose: 3 ml Home Medications ?Medication ?Instructions ?Recorded ?Confirmed ?Last Taken ?Type lisinopril 40 mg tablet 40 mg PO DAILY 11/04/20 04/17/23 11/03/20 History amlodipine 5 mg tablet 5 mg PO DAILY 12/14/21 04/17/23 Unknown History levothyroxine 100 mcg tablet 100 mcg PO DAILY 12/14/21 04/17/23 Unknown History rosuvastatin 20 mg tablet 20 mg PO BEDTIME 12/14/21 04/17/23 Unknown History Physical Exam 2 Vital Signs: Vital Signs: Last Vital Signs Temp 98.1 F 04/16/24 10:49 Pulse 60 04/16/24 10:49 Resp 18 04/16/24 10:49 BP 148/76 H 04/16/24 10:49 Pulse Ox 96 04/16/24 10:49 O2 Del Method Room Air 04/16/24 10:49 BMI result Body Mass Index 31.9 GENERAL APPEARANCE: in no acute distress, pleasant. NECK: no carotid bruit, no jugular venous distention. SKIN: no suspicious lesions, warm and dry. HEART: no murmurs, regular rate and rhythm. LUNGS: clear to auscultation bilaterally. ABDOMEN: soft, nontender. EXTREMITIES: no edema. PERIPHERAL PULSES: equal. NEUROLOGIC: No gross deficits, AAO X 3 Objective Labs and Meds 04/14/24 19:18 04/16/24 06:15 Lab results: Laboratory Results - last 24 hr 04/14/24 04/15/24 04/16/24 19:18 21:22 06:15 Sodium 143 Potassium 3.8 Chloride 109 H Carbon Dioxide 26 Anion Gap 12 BUN 18 H Creatinine 0.72 Estim Creat Clear Calc 63.0 Estimated GFR > 60 POC Glucose 265 H Random Glucose 86 Calcium 8.9 D Magnesium 2.1 2.1 04/16/24 04/16/24 07:43 11:26 Sodium Potassium Chloride Carbon Dioxide Anion Gap BUN Creatinine Estim Creat Clear Calc Estimated GFR POC Glucose 95 93 Random Glucose Calcium Magnesium Assessment and Plan (1) Prolonged QT interval: Status: Acute (2) Preop cardiovascular exam: Status: Acute Plan 78-year-old female presenting with hematuria and ureteric stone. She needs to go for urological procedure. She has prolonged QT interval the ECG which led to cancellation of her procedure. She has right bundle-branch block on the ECG with QT interval of 520 milliseconds. No syncope or arrhythmia in the past. Pacemaker is working fine. Give 1 g of magnesium and replete potassium with 40 mEq of KCL. She can proceed with surgery. Intermediate risk for perioperative complications. Please avoid any medications during the surgery which can prolong QT interval. Antibiotics choice also is important and fluoroquinolones and macrolide should be avoided. Thank you for allowing me to participate in the care of your patient. Please feel free to contact me if you have any questions. Procedures Date of Service Date of Service: 04/16/24
[2024-04-16 12:13] LABS: Glucose, Whole Blood 72 mg/dL (60-115)
--- NOTE | 2024-04-16 12:55 | PHA.MEDREC ---
Pharmacy Consult ? Medication Reconciliation Pharmacy has completed the medication reconciliation. Utilized list from [facility]. [phone].
--- NOTE | 2024-04-16 13:03 | P.PNUR_ITS ---
Subjective Subjective Date of Service: 04/16/24 Interval history: 78 y/o female h/o kidney stones, presented with hematuria. CTAP left proximal ureteral stone, pt on plavix. Pt seen by Cardiology. Physical Exam 2 Vital Signs: Vital Signs: Last Vital Signs Temp 98.1 F 04/16/24 10:49 Pulse 60 04/16/24 10:49 Resp 18 04/16/24 10:49 BP 148/76 H 04/16/24 10:49 Pulse Ox 96 04/16/24 10:49 O2 Del Method Room Air 04/16/24 10:49 BMI result Body Mass Index 31.9 Urology Results Labs 04/14/24 19:18 04/16/24 06:15 Labs: Laboratory Results - last 24 hr 04/14/24 04/15/24 04/15/24 19:18 16:26 21:22 Sodium Potassium Chloride Carbon Dioxide Anion Gap BUN Creatinine Estim Creat Clear Calc Estimated GFR POC Glucose 72 265 H Random Glucose Calcium Magnesium 2.1 04/16/24 04/16/24 04/16/24 06:15 07:43 11:26 Sodium 143 Potassium 3.8 Chloride 109 H Carbon Dioxide 26 Anion Gap 12 BUN 18 H Creatinine 0.72 Estim Creat Clear Calc 63.0 Estimated GFR > 60 POC Glucose 95 93 Random Glucose 86 Calcium 8.9 D Magnesium 2.1 Progress Note: A&P Assessment and plan (1) Left ureteral calculus: Status: Acute (2) Flank pain: Status: Acute (3) Hematuria: Status: Acute Plan Cystoscopy left ureteral stent possible ureteroscopy. Pt evaluated by Cardiology Time Spent With Patient Time: Total time managing care of this patient today ____ minutes. Progress Note: Quality Stroke Does the patient have a stroke diagnosis?: No
[2024-04-16] MEDS: Potassium Chloride/H20 10 MEQ/100 ML PIGGYBACK 100 MEQ IV (15:14)
[2024-04-16] MEDS: Magnesium Sulfate/D5W 1 GM/100 ML PIGGYBACK IV (15:18)
[2024-04-16 16:55] LABS: Glucose, Whole Blood 103 mg/dL (60-115)
[2024-04-16] MEDS: Potassium Chloride Packet 20 MEQ PACKET 40 MEQ PO (16:58)
[2024-04-16 20:25] LABS: Glucose, Whole Blood 152 mg/dL (60-115)
[2024-04-16] MEDS: Multivitamin TABLET 1 TAB PO (20:42)
[2024-04-16] MEDS: Donepezil HCl 5 MG TABLET PO (20:42)
[2024-04-16] MEDS: Gabapentin 100 MG CAPSULE PO (20:42)
[2024-04-17] VITALS (14 sets, daily range): BP systolic 114–188; BP diastolic 62–86; PULSE 60–66; RESP 14–20; TEMP 36.1–37.1; O2SAT 93–97
[2024-04-17] MEDS: Levothyroxine Sodium 100 MCG TABLET PO (05:53)
[2024-04-17 07:26] LABS: Glucose, Whole Blood 105 mg/dL (60-115)
[2024-04-17 07:50] LABS: Anion Gap 13 (12-20); Blood Urea Nitrogen 13 mg/dL (9-16); Carbon Dioxide 23 mmol/L (22-29); Chloride 110 mmol/L (96-108); Creatinine Clr Calc Pharmacy 66.7; Estimated Glomerular Filt Rate > 60; Glucose Random 108 mg/dL (60-115); Potassium 4.2 mmol/L (3.3-5.1); Sodium 142 mmol/L (135-145)
[2024-04-17] MEDS: Metoprolol Succinate ER 50 MG TAB.ER.24H PO (08:09)
[2024-04-17] MEDS: Lactated Ringers 1,000 ML 80 ML IVCONT ×3 (11:26→18:06)
[2024-04-17 12:15] LABS: Glucose, Whole Blood 106 mg/dL (60-115)
--- NOTE | 2024-04-17 12:45 | P.CONAN_ITS ---
[facility] Active Problems Active Problems: All Active Problems Hematuria (Acute) Preop cardiovascular exam (Acute) Prolonged QT interval (Acute) Constipation (Acute) Left ureteral calculus (Acute) Flank pain (Acute) Pyelonephritis (Acute) Excessive cerumen in right ear canal (Acute) Balance problem (Acute) Hearing loss (Acute) UTI (urinary tract infection) (Acute) AAA (abdominal aortic aneurysm) (Acute) Weakness (Acute) Annual physical exam (Acute) GERD (gastroesophageal reflux disease) (Acute) IDDM (insulin dependent diabetes mellitus) (Acute) Diverticulitis (Acute) Nephrolithiasis (Acute) HX: anticoagulation (Acute) Pacemaker (Acute) Nephrolithiasis (Acute) Myocardial infarct (Acute) Macular degeneration (Acute) Frequent UTI (Acute) Cataract (Acute) Dementia (Acute) Hypothyroid (Acute) HTN (hypertension) (Acute) Diabetes (Acute) Hyperlipidemia (Acute) Past Medical History Medical History Annual physical exam HTN (hypertension) IDDM (insulin dependent diabetes mellitus) Diverticulitis Nephrolithiasis Cataract Hyperlipidemia Pacemaker Myocardial infarct Macular degeneration Nephrolithiasis Dementia Frequent UTI HTN (hypertension) Hypothyroid Diabetes Functional capacity: independent ambulation Family History Family History Father Heart attack Mother Heart problem Heart attack Substance use disorder Family history of problems with anesthesia: No Surgical History Surgical History Status post lumbar spine surgery for decompression of spinal cord H/O left knee surgery History of Problems with Anesthesia: No Social History Social History Household Members: None Household Members Other:: lives in assisted living Housing: Assisted Living Facility Housing Other:: [facility] Pena Do you presently have visiting nurse or other home services: Yes Alcohol intake: never Patient Tobacco Use Status: Current everyday Tobacco user Tobacco use type: Cigarette Cigarettes Per Day: 10.0 Years Smoked: 54 e-Cigarette/Vaping Use: Never Used Second Hand Smoke Exposure: No Advance Directives Date on File: 11/05/20 service: No Current occupational status: retired Cognitive needs: No Hearing needs: No Vision needs: Yes Meds Allergies Allergy/AdvReac Type Severity Reaction Status Date / Time atorvastatin Allergy Unknown pt does Verified 04/14/24 18:20 not know azithromycin Allergy Unknown pt does Verified 04/14/24 18:20 not know ceftriaxone Allergy Unknown pt does Verified 04/14/24 18:20 not know cephalexin Allergy Unknown pt does Verified 04/14/24 18:20 not know citalopram Allergy Unknown pt does Verified 04/14/24 18:20 not know levofloxacin Allergy Unknown pt does Verified 04/14/24 18:20 not know metformin Allergy Unknown pt does Verified 04/14/24 18:20 not know nitrofurantoin Allergy Unknown pt does Verified 04/14/24 18:20 not know oxycodone Allergy Unknown pt does Verified 04/14/24 18:20 not know penicillin V Allergy Unknown pt does Verified 04/14/24 18:20 not know pioglitazone Allergy Unknown pt does Verified 04/14/24 18:20 not know repaglinide Allergy Unknown pt does Verified 04/14/24 18:20 not know rosuvastatin [Crestor] Allergy Unknown pt does Verified 04/14/24 18:20 not know sertraline Allergy Unknown pt does Verified 04/14/24 18:20 not know simvastatin Allergy Unknown pt does Verified 04/14/24 18:20 not know sulfacetamide Allergy Unknown pt does Verified 04/14/24 18:20 not know Cefuroxime Sodium Allergy Unknown pt does Uncoded 04/14/24 18:20 not know Active Medications: Current Medications Acetaminophen (Acetaminophen 325 Mg Tablet) 650 mg PO Q6H PRN PRN Reason: Pain, Mild (Pain Scale 1-3), fever or headache Calcium Carbonate (Calcium Carbonate 750 Mg Tab.Chew) 750 mg PO Q4H PRN PRN Reason: Heartburn Cyanocobalamin (Cyanocobalamin (Vitamin B-12) 1,000 Mcg Tablet) 1,000 mcg PO DAILY [facility] Last Admin: 04/17/24 07:57 Dose: Not Given Donepezil HCl (Donepezil Hcl 5 Mg Tablet) 5 mg PO BEDTIME [facility] Last Admin: 04/16/24 20:42 Dose: 5 mg Famotidine (Famotidine 20 Mg Tablet) 40 mg PO DAILY [facility] Last Admin: 04/17/24 07:57 Dose: Not Given Gabapentin (Gabapentin 100 Mg Capsule) 100 mg PO BID [facility] Last Admin: 04/17/24 07:58 Dose: Not Given Glycerin (Glycerin Adult Supp.Rect) 1 supp LA DAILY PRN PRN Reason: Constipation Lactated Ringer's (Lr) 1,000 mls @ 80 mls/hr IVCONT .[id number] [facility] Last Admin: 04/17/24 11:26 Dose: 80 mls/hr Insulin Human Lispro (Insulin Lispro 100 Unit/Ml 3 Ml Vial) 0 unit SUBCUT QIDACHS [facility]; Protocol Last Admin: 04/17/24 07:31 Dose: Not Given Ketorolac Tromethamine (Ketorolac Tromethamine 30 Mg/Ml Vial) 15 mg IVPUSH Q6H PRN PRN Reason: Pain, Moderate(Pain Scale 4-6) Stop: 04/20/24 18:54 Levothyroxine Sodium (Levothyroxine Sodium 100 Mcg Tablet) 100 mcg PO DAILY@0600 [facility] Last Admin: 04/17/24 05:53 Dose: 100 mcg Lisinopril (Lisinopril 40 Mg Tablet) 40 mg PO DAILY [facility]; Protocol Last Admin: 04/17/24 08:01 Dose: Not Given Magnesium Hydroxide (Milk Of Magnesia 30 Ml Oral.Susp) 30 ml PO DAILY PRN PRN Reason: Constipation Melatonin (Melatonin 3 Mg Tablet) 6 mg PO BEDTIME PRN PRN Reason: Insomnia Metoprolol Succinate (Metoprolol Succinate Er 50 Mg Tab.Er.24h) 50 mg PO DAILY [facility]; Protocol Last Admin: 04/17/24 08:09 Dose: 50 mg Metoprolol Succinate (Metoprolol Succinate Er 50 Mg Tab.Er.24h) 50 mg PO DAILY [facility]; Protocol Last Admin: 04/17/24 08:20 Dose: Not Given Morphine Sulfate (Morphine Sulfate 4 Mg/Ml Cartridge) 2 mg IVPUSH Q4H PRN; Protocol PRN Reason: Pain, Severe (Pain Scale 7-10) Last Admin: 04/16/24 08:59 Dose: 2 mg Multivitamins/Vitamin C (Multivitamin Tablet) 1 tab PO BID [facility] Last Admin: 04/17/24 07:58 Dose: Not Given Naloxone HCl (Naloxone Hcl 0.4 Mg/Ml Vial) 0.04 mg IVPUSH Q5M PRN PRN Reason: Excessive sedation or RR < 8 Ondansetron HCl (Ondansetron Hcl 4 Mg/2 Ml Vial) 4 mg IVPUSH Q8H PRN PRN Reason: Nausea and Vomiting Senna/Docusate Sodium (Sennosides/Docusate Sodium Tablet) 1 tab PO BID [facility] Last Admin: 04/17/24 07:59 Dose: Not Given Senna/Docusate Sodium (Sennosides/Docusate Sodium Tablet) 2 tab PO BID [facility] Last Admin: 04/17/24 08:19 Dose: Not Given Sodium Chloride (0.9 % Sodium Chloride Flush 3 Ml Syringe) 3 ml IVFLUSH QSHIFT [facility] Last Admin: 04/17/24 08:10 Dose: Not Given Home Medications ?Medication ?Instructions ?Recorded ?Confirmed ?Last Taken ?Type lisinopril 40 mg tablet 40 mg PO DAILY 11/04/20 04/16/24 11/03/20 History levothyroxine 100 mcg tablet 100 mcg PO DAILY@0600 12/14/21 04/16/24 Unknown History rosuvastatin 20 mg tablet 20 mg PO BEDTIME 12/14/21 04/16/24 Unknown History acetaminophen 325 mg tablet 650 mg PO Q4H PRN Pain 04/16/24 04/16/24 Unknown History aluminum-mag hydroxide-simethicone 30 ml PO Q4H PRN GI UPSET 04/16/24 04/16/24 Unknown History 200 mg-200 mg-20 mg/5 mL oral susp (Mintox) glycerin (adult) 1 supp LA DAILY PRN Constipation 04/16/24 04/16/24 Unknown History loperamide 2 mg capsule 2 mg PO Q4H PRN LOOSE STOOLS 04/16/24 04/16/24 Unknown History magnesium hydroxide 400 mg/5 mL 30 ml PO DAILY PRN Constipation 04/16/24 04/16/24 Unknown History oral suspension (Milk of Magnesia) sennosides 8.6 mg-docusate sodium 2 tab PO BID 04/16/24 04/16/24 Unknown History 50 mg tablet (Stool Softener-Laxative) vitamins A,C,V-[id number] 2,148 1 tab PO BID 04/16/24 04/16/24 Unknown History mcg-113 mg-45 mg-17.4 mg tablet (PreserVision AREDS) Exam Height,Weight and Vital Signs: Height 5 ft 3 in Weight 81.647 kg Last Vital Signs Temp 97.2 F 04/17/24 12:00 Pulse 60 04/17/24 12:00 Resp 18 04/17/24 12:00 BP 169/72 H 04/17/24 12:00 Pulse Ox 94 04/17/24 12:00 O2 Del Method Room Air 04/17/24 12:00 Pertinent Lab Results Pertinent Lab Results: Laboratory Tests 04/14/24 04/14/24 04/15/24 19:18 19:19 16:26 WBC 10.2 RBC 4.92 Hgb 13.9 Hct 44.7 MCV 90.9 MCH 28.3 MCHC 31.1 RDW 16.4 H Plt Count 227 MPV 9.4 Immature Gran % (Auto) 0.4 Neut % (Auto) 68.1 Lymph % (Auto) 22.8 Mcmullen % (Auto) 6.5 Eos % (Auto) 1.6 Baso % (Auto) 0.6 Lymph # (Auto) 2.3 Mcmullen # (Auto) 0.7 Eos # (Auto) 0.2 Baso # (Auto) 0.1 Abs Immat Gran (auto) 0.04 H Absolute Neuts (auto) 6.9 Absolute Nucleated RBC 0.000 Nucleated RBC % (auto) 0.0 Sodium 145 Potassium 4.5 Chloride 109 H Carbon Dioxide 27 Anion Gap 14 BUN 16 Creatinine 0.83 Estim Creat Clear Calc 54.7 Estimated GFR > 60 POC Glucose 72 Random Glucose 131 H Calcium 9.9 D Magnesium 2.1 Total Bilirubin 0.3 AST 24 ALT 17 Alkaline Phosphatase 98 Total Protein 7.3 Albumin 4.0 Lipase 27 Urine Color Yellow Urine Appearance Clear Urine pH 6.0 Ur Specific Pitcher 1.015 Urine Protein Negative Urine Glucose (UA) Negative Urine Ketones Negative Urine Blood Large (3+) H Urine Nitrite Negative Ur Leukocyte Esterase Trace H Urine RBC >20 H Urine WBC 0-5 Ur Squamous Epith Cells 0-2 Urine Bacteria None Seen Hyaline Casts 0-2 Influenza Type A (PCR) NEGATIVE Influenza Type B (PCR) NEGATIVE RSV RNA Qual (PCR) NEGATIVE SARS-CoV-2 RNA (RT-PCR) NEGATIVE 04/15/24 04/16/24 04/16/24 21:22 06:15 07:43 WBC RBC Hgb Hct MCV MCH MCHC RDW Plt Count MPV Immature Gran % (Auto) Neut % (Auto) Lymph % (Auto) Mcmullen % (Auto) Eos % (Auto) Baso % (Auto) Lymph # (Auto) Mcmullen # (Auto) Eos # (Auto) Baso # (Auto) Abs Immat Gran (auto) Absolute Neuts (auto) Absolute Nucleated RBC Nucleated RBC % (auto) Sodium 143 Potassium 3.8 Chloride 109 H Carbon Dioxide 26 Anion Gap 12 BUN 18 H Creatinine 0.72 Estim Creat Clear Calc 63.0 Estimated GFR > 60 POC Glucose 265 H 95 Random Glucose 86 Calcium 8.9 D Magnesium 2.1 Total Bilirubin AST ALT Alkaline Phosphatase Total Protein Albumin Lipase Urine Color Urine Appearance Urine pH Ur Specific Pitcher Urine Protein Urine Glucose (UA) Urine Ketones Urine Blood Urine Nitrite Ur Leukocyte Esterase Urine RBC Urine WBC Ur Squamous Epith Cells Urine Bacteria Hyaline Casts Influenza Type A (PCR) Influenza Type B (PCR) RSV RNA Qual (PCR) SARS-CoV-2 RNA (RT-PCR) 04/16/24 04/16/24 04/16/24 11:26 16:49 20:21 WBC RBC Hgb Hct MCV MCH MCHC RDW Plt Count MPV Immature Gran % (Auto) Neut % (Auto) Lymph % (Auto) Mcmullen % (Auto) Eos % (Auto) Baso % (Auto) Lymph # (Auto) Mcmullen # (Auto) Eos # (Auto) Baso # (Auto) Abs Immat Gran (auto) Absolute Neuts (auto) Absolute Nucleated RBC Nucleated RBC % (auto) Sodium Potassium Chloride Carbon Dioxide Anion Gap BUN Creatinine Estim Creat Clear Calc Estimated GFR POC Glucose 93 103 152 H Random Glucose Calcium Magnesium Total Bilirubin AST ALT Alkaline Phosphatase Total Protein Albumin Lipase Urine Color Urine Appearance Urine pH Ur Specific Pitcher Urine Protein Urine Glucose (UA) Urine Ketones Urine Blood Urine Nitrite Ur Leukocyte Esterase Urine RBC Urine WBC Ur Squamous Epith Cells Urine Bacteria Hyaline Casts Influenza Type A (PCR) Influenza Type B (PCR) RSV RNA Qual (PCR) SARS-CoV-2 RNA (RT-PCR) 04/17/24 04/17/24 04/17/24 06:45 07:08 12:07 WBC RBC Hgb Hct MCV MCH MCHC RDW Plt Count MPV Immature Gran % (Auto) Neut % (Auto) Lymph % (Auto) Mcmullen % (Auto) Eos % (Auto) Baso % (Auto) Lymph # (Auto) Mcmullen # (Auto) Eos # (Auto) Baso # (Auto) Abs Immat Gran (auto) Absolute Neuts (auto) Absolute Nucleated RBC Nucleated RBC % (auto) Sodium 142 Potassium 4.2 Chloride 110 H Carbon Dioxide 23 Anion Gap 13 BUN 13 Creatinine 0.68 Estim Creat Clear Calc 66.7 Estimated GFR > 60 POC Glucose 105 106 Random Glucose 108 Calcium 9.0 Magnesium 2.0 Total Bilirubin AST ALT Alkaline Phosphatase Total Protein Albumin Lipase Urine Color Urine Appearance Urine pH Ur Specific Pitcher Urine Protein Urine Glucose (UA) Urine Ketones Urine Blood Urine Nitrite Ur Leukocyte Esterase Urine RBC Urine WBC Ur Squamous Epith Cells Urine Bacteria Hyaline Casts Influenza Type A (PCR) Influenza Type B (PCR) RSV RNA Qual (PCR) SARS-CoV-2 RNA (RT-PCR) Airway Mallampati Class: III TM Dist: >3cm Neck ROM: Full Denture: Upper and Lower Heart: Regular Lungs: CTA Assessment and Plan Assessment Anesthesia Assessment: Anesthesia Plan Discussed, Smoking Cess. Discussed and Chart Reviewed Final Anesthetic Review Family History of Problems with Anesthesia: No History of Problems with Anesthesia: No NPO: Yes ASA Class: IV Final Preanesthetic Review: Meds/Allgs Chart Reviewed, Consent Obtained/Reviewed and Anes Risks/Benef Reviewed Patient Risk: High Procedure Risk: Low Anesthetic Plan Anesthetic Plan: GA Disposition: Standard PACU
--- NOTE | 2024-04-17 13:08 | ECG_ITS ---
Test Reason : pre op Blood Pressure : / mmHG Vent. Rate : 060 BPM Atrial Rate : 060 BPM P-R Int : 266 ms QRS Dur : 114 ms QT Int : 530 ms P-R-T Axes : 000 -37 096 degrees QTc Int : 530 ms Atrial-paced rhythm with prolonged AV conduction Left axis deviation Incomplete right bundle branch block Minimal voltage criteria for LVH, may be normal variant ( Roberto product ) Inferior infarct (cited on or before 04-NOV-2020) Prolonged QT Abnormal ECG When compared with ECG of 16-APR-2024 17:14, No significant change was found Referred By: Carina East Electronically Signed By:Abhijeet Aldana
--- NOTE | 2024-04-17 13:23 | HO.PM.IMPN ---
Subjective Subjective Date of Service: 04/17/24 Interval History: seen and evaluated feels better overall QTc improved to 490s. no fever or back pain Review of Systems Review of Systems: Yes all other systems are reviewed and are negative Physical Exam Vital Signs: Vital Signs: Last Vital Signs Temp 97.2 F 04/17/24 13:16 Pulse 60 04/17/24 13:16 Resp 16 04/17/24 13:16 BP 114/81 04/17/24 13:16 Pulse Ox 94 04/17/24 13:16 O2 Del Method Room Air 04/17/24 13:16 BMI result Body Mass Index 31.9 Const: Other: Constitutional : Awake, interactive, not in distress Neck : Normal inspection, Supple Cardiovascular : RRR, no JVP, no lower extremity edema Respiratory : good bilateral air entry, no crackles, wheezes or rhonchi Gastrointestinal: soft, lax, Normal bowel sounds, Non tender Skin : Warm, Dry Neurological : Alert & oriented to self and place, No focal deficit Objective Data Active Medications Acetaminophen (Acetaminophen 325 Mg Tablet) 650 mg PO Q6H PRN PRN Reason: Pain, Mild (Pain Scale 1-3), fever or headache Calcium Carbonate (Calcium Carbonate 750 Mg Tab.Chew) 750 mg PO Q4H PRN PRN Reason: Heartburn Cyanocobalamin (Cyanocobalamin (Vitamin B-12) 1,000 Mcg Tablet) 1,000 mcg PO DAILY [facility] Last Admin: 04/17/24 07:57 Dose: Not Given Documented By: TRE Non-Admin Reason: Physician Held Med Comments: NPO for OR Donepezil HCl (Donepezil Hcl 5 Mg Tablet) 5 mg PO BEDTIME [facility] Last Admin: 04/16/24 20:42 Dose: 5 mg Documented By: GIFTY Famotidine (Famotidine 20 Mg Tablet) 40 mg PO DAILY [facility] Last Admin: 04/17/24 07:57 Dose: Not Given Documented By: TRE Non-Admin Reason: Physician Held Med Comments: NPO for OR Gabapentin (Gabapentin 100 Mg Capsule) 100 mg PO BID [facility] Last Admin: 04/17/24 07:58 Dose: Not Given Documented By: TRE Non-Admin Reason: Physician Held Med Comments: NPO for OR Glycerin (Glycerin Adult Supp.Rect) 1 supp [place] DAILY PRN PRN Reason: Constipation Lactated Ringer's (Lr) 1,000 mls @ 80 mls/hr IVCONT .[id number] [facility] Last Admin: 04/17/24 11:26 Dose: 80 mls/hr Documented By: TRE Lactated Ringer's (Lr) 1,000 mls @ 80 mls/hr IVCONT .[id number] [facility] Insulin Human Lispro (Insulin Lispro 100 Unit/Ml 3 Ml Vial) 0 unit SUBCUT QIDACHS [facility]; Protocol Last Admin: 04/17/24 12:49 Dose: Not Given Documented By: TRE Non-Admin Reason: No Insulin Coverage Ketorolac Tromethamine (Ketorolac Tromethamine 30 Mg/Ml Vial) 15 mg IVPUSH Q6H PRN PRN Reason: Pain, Moderate(Pain Scale 4-6) Stop: 04/20/24 18:54 Levothyroxine Sodium (Levothyroxine Sodium 100 Mcg Tablet) 100 mcg PO DAILY@0600 [facility] Last Admin: 04/17/24 05:53 Dose: 100 mcg Documented By: KETAN Lisinopril (Lisinopril 40 Mg Tablet) 40 mg PO DAILY [facility]; Protocol Last Admin: 04/17/24 08:01 Dose: Not Given Documented By: TRE Non-Admin Reason: Physician Held Med Comments: NPO for OR Magnesium Hydroxide (Milk Of Magnesia 30 Ml Oral.Susp) 30 ml PO DAILY PRN PRN Reason: Constipation Melatonin (Melatonin 3 Mg Tablet) 6 mg PO BEDTIME PRN PRN Reason: Insomnia Metoprolol Succinate (Metoprolol Succinate Er 50 Mg Tab.Er.24h) 50 mg PO DAILY [facility]; Protocol Last Admin: 04/17/24 08:09 Dose: 50 mg Documented By: TRE Metoprolol Succinate (Metoprolol Succinate Er 50 Mg Tab.Er.24h) 50 mg PO DAILY [facility]; Protocol Last Admin: 04/17/24 08:20 Dose: Not Given Documented By: TRE Non-Admin Reason: Duplicate Order Morphine Sulfate (Morphine Sulfate 4 Mg/Ml Cartridge) 2 mg IVPUSH Q4H PRN; Protocol PRN Reason: Pain, Severe (Pain Scale 7-10) Last Admin: 04/16/24 08:59 Dose: 2 mg Documented By: MALDONADO Multivitamins/Vitamin C (Multivitamin Tablet) 1 tab PO BID [facility] Last Admin: 04/17/24 07:58 Dose: Not Given Documented By: TRE Non-Admin Reason: Physician Held Med Comments: NPO for OR Naloxone HCl (Naloxone Hcl 0.4 Mg/Ml Vial) 0.04 mg IVPUSH Q5M PRN PRN Reason: Excessive sedation or RR < 8 Ondansetron HCl (Ondansetron Hcl 4 Mg/2 Ml Vial) 4 mg IVPUSH Q8H PRN PRN Reason: Nausea and Vomiting Senna/Docusate Sodium (Sennosides/Docusate Sodium Tablet) 1 tab PO BID [facility] Last Admin: 04/17/24 07:59 Dose: Not Given Documented By: TRE Non-Admin Reason: Physician Held Med Comments: NPO for OR Senna/Docusate Sodium (Sennosides/Docusate Sodium Tablet) 2 tab PO BID [facility] Last Admin: 04/17/24 08:19 Dose: Not Given Documented By: TRE Non-Admin Reason: Physician Held Med Comments: NPO for OR Sodium Chloride (0.9 % Sodium Chloride Flush 3 Ml Syringe) 3 ml IVFLUSH QSHIFT [facility] Last Admin: 04/17/24 08:10 Dose: Not Given Documented By: TRE Non-Emma Reason: IV Running Labs 04/14/24 19:18 04/17/24 06:45 Labs: Laboratory Results - last 24 hr 04/16/24 04/16/24 04/17/24 16:49 20:21 06:45 Anion Gap 13 Estim Creat Clear Calc 66.7 Estimated GFR > 60 POC Glucose 103 152 H Random Glucose 108 Calcium 9.0 Magnesium 2.0 04/17/24 04/17/24 07:08 12:07 Anion Gap Estim Creat Clear Calc Estimated GFR POC Glucose 105 106 Random Glucose Calcium Magnesium Assessment and Plan (1) Hematuria: Status: Acute (2) Left ureteral calculus: Status: Acute Plan An 78 years old lad with PMH of CAD s/p Atrial pacing, AAA, GERD, DM, Dementia, HTN among others who is admitted for left uretropelvic junctional stone with hydronephrosis. Prolonged QTc Asymptomatic, repeated QTc of 490s , cleared for surgical procedure hold Donepezil normal Mg level and K above 4 repeat EKG as needed Echo with normal EF Cardiology input appreciated keep on Tele Uretral stone w obstruction, acute Urology to do retrograde cystoscopy w basketing no evidence of infx Hx CAD, ASA and Plavix on hold , Metoprolol , statin Gout, Allopurinol GERD, Famotidine DMII, Humalog, lantus, SSI DVT PPx SCDs Patient will be observed overnight pending surgical intervention Quality Stroke Does the patient have a stroke diagnosis?: No VTE Prior VTE?: No VTE Risk Level:: Medical - moderate - high VTE Device Contraindication: N/A - Device Ordered VTE Drug Contraindication: Treatment Not Indicated
--- NOTE | 2024-04-17 13:35 | MHC.SHP ---
Pre-Procedural Eval Section A - 24 Hr Update-Section A only Date of Service: 04/17/24 The patient is an INPATIENT: Yes Section B - Complete if H&P > 30 days Chief Complaint: Left Ureteral stone Allergies: Allergies Allergy/AdvReac Type Severity Reaction Status Date / Time atorvastatin Allergy Unknown pt does Verified 04/14/24 18:20 not know azithromycin Allergy Unknown pt does Verified 04/14/24 18:20 not know ceftriaxone Allergy Unknown pt does Verified 04/14/24 18:20 not know cephalexin Allergy Unknown pt does Verified 04/14/24 18:20 not know citalopram Allergy Unknown pt does Verified 04/14/24 18:20 not know levofloxacin Allergy Unknown pt does Verified 04/14/24 18:20 not know metformin Allergy Unknown pt does Verified 04/14/24 18:20 not know nitrofurantoin Allergy Unknown pt does Verified 04/14/24 18:20 not know oxycodone Allergy Unknown pt does Verified 04/14/24 18:20 not know penicillin V Allergy Unknown pt does Verified 04/14/24 18:20 not know pioglitazone Allergy Unknown pt does Verified 04/14/24 18:20 not know repaglinide Allergy Unknown pt does Verified 04/14/24 18:20 not know rosuvastatin [Crestor] Allergy Unknown pt does Verified 04/14/24 18:20 not know sertraline Allergy Unknown pt does Verified 04/14/24 18:20 not know simvastatin Allergy Unknown pt does Verified 04/14/24 18:20 not know sulfacetamide Allergy Unknown pt does Verified 04/14/24 18:20 not know Cefuroxime Sodium Allergy Unknown pt does Uncoded 04/14/24 18:20 not know Plan Diagnosis/Plan: Unchanged I have reviewed the history and physical and performed a pertinent physical examination on my patient. No changes have occurred unless specified. Cystoscopy Left ureteral stent, possible ureteroscopy Time Spent With Patient Time: Total time managing care of this patient today ____ minutes.
[2024-04-17] MEDS: Magnesium Sulfate/H2O 2 GM/50 ML PIGGYBACK IV (13:56)
--- NOTE | 2024-04-17 14:05 | PC.NURSE ---
Magnesium 2gm IV infusing through #22 to right wrist. Per Dr. Orellana, Anesthesiologist to run over 1hr instead of 2hr as indicated. Dr. Orellana at bedside, patient transported to OR.
--- NOTE | 2024-04-17 14:40 | W.PM.OPN ---
Operative Note Operative Note Date of Service: 04/17/24 Narrative: PreOperative Diagnosis:?? Left ureteral stone Post Operative Diagnosis:?? ?Left ureteral stone Procedure: Cystoscopy, left retrograde left stent insertion, size 7 [place] by 26 cm Surgeon:?Dr Cy Hutchison Anesthesia:? General Procedure: After informed consent was verified the patient was brought to the operating placed on the OR table in supine position.? General Anesthesia was administered per protocol.? The patient was placed in lithotomy position, prepped and draped in the usual sterile fashion.? Safety pause time-out and side of surgery confirmed.? Antibiotics confirmed. A 22 [place] cystoscope was inserted transurethrally, The bladder was visualized.? Both ureteric orifices were visualized. The? left ureteric orifice was cannulated? left a retrograde examination was performed, A hydrophilic guidewire was placed up to the level of the renal pelvis under fluoroscopy. A 7 fr by 26 cm ureteral stent was passed over the guide wire under fluoroscopic guidance. The guide wire was removed. The bladder was emptied.? The rigid cystoscope was removed. ? The patient tolerated the procedure well and was brought to the recovery room in stable condition. Complications: None Drains: Ureteral stent as dictated above
[2024-04-17] MEDS: lisinopriL 40 MG TABLET PO (16:46)
[2024-04-17] MEDS: 0.9 % Sodium Chloride Flush 3 ML SYRINGE IVFLUSH (16:50)
[2024-04-17 16:51] LABS: Glucose, Whole Blood 99 mg/dL (60-115)
[2024-04-17] MEDS: Morphine Sulfate 4 MG/ML CARTRIDGE 2 MG IVPUSH ×2 (16:55→21:42)
[2024-04-17] MEDS: Donepezil HCl 5 MG TABLET PO (20:38)
[2024-04-17] MEDS: Gabapentin 100 MG CAPSULE PO (20:39)
[2024-04-17] MEDS: hydrALAZINE HCl 20 MG/ML VIAL 10 MG IVPUSH (20:39)
[2024-04-17] MEDS: Multivitamin TABLET 1 TAB PO (20:39)
[2024-04-17 21:26] LABS: Glucose, Whole Blood 192 mg/dL (60-115)
[2024-04-17] MEDS: Insulin Lispro 100 UNIT/ML 3 ML VIAL SUBCUT (21:42)
[2024-04-18 03:11] VITALS: BP 140/64; PULSE 60; RESP 18; TEMP 37.1; O2SAT 93
[2024-04-18] MEDS: Lactated Ringers 1,000 ML 80 ML IVCONT (05:32)
[2024-04-18] MEDS: Levothyroxine Sodium 100 MCG TABLET PO (05:32)
[2024-04-18] MEDS: Morphine Sulfate 4 MG/ML CARTRIDGE 2 MG IVPUSH ×2 (05:33→11:55)
[2024-04-18] MEDS: Famotidine 20 MG TABLET 40 MG PO (07:44)
[2024-04-18 07:45] VITALS: BP 180/72; PULSE 60
[2024-04-18] MEDS: Metoprolol Succinate ER 50 MG TAB.ER.24H PO (07:45)
[2024-04-18] MEDS: Multivitamin TABLET 1 TAB PO (07:45)
[2024-04-18] MEDS: Sennosides/Docusate Sodium TABLET 1 TAB PO (07:45)
[2024-04-18] MEDS: Gabapentin 100 MG CAPSULE PO (07:45)
[2024-04-18 07:47] VITALS: BP 180/72
[2024-04-18] MEDS: lisinopriL 40 MG TABLET PO (07:47)
[2024-04-18] MEDS: Cyanocobalamin (Vitamin B-12) 1,000 MCG TABLET 1000 MCG PO (07:47)
[2024-04-18 07:51] LABS: Glucose, Whole Blood 117 mg/dL (60-115)
[2024-04-18 08:00] VITALS: BP 180/72; PULSE 60; RESP 18; TEMP 36.7; O2SAT 94
[2024-04-18] MEDS: Clopidogrel Bisulfate 75 MG TABLET PO (08:37)
[2024-04-18] MEDS: Phenazopyridine HCL 100 MG TABLET PO ×2 (08:37→11:56)
[2024-04-18] MEDS: amLODIPine Besylate 5 MG TABLET PO (08:37)
[2024-04-18] MEDS: Morphine Sulfate 2 MG/ML CARTRIDGE IVPUSH (08:38)
[2024-04-18 11:34] LABS: Glucose, Whole Blood 241 mg/dL (60-115)
--- NOTE | 2024-04-18 11:34 | HO.POSTANES ---
Post Anesthesia Evaluation Post Anesthesia Evaluation Date of Service: 04/18/24 Vital Signs: Vital Signs Temp Pulse Resp BP Pulse Ox O2 Del Method 04/18/24 08:00 98.0 F 60 18 180/72 H 94 Room Air 04/18/24 07:47 180/72 H 04/18/24 07:45 60 180/72 H 04/18/24 03:11 98.7 F 60 18 140/64 H 93 Room Air 04/17/24 23:42 98.8 F 63 18 144/65 H 93 Room Air Anesthesia: Monitored Mental Status: Awake Pain Control: Satisfactory Nausea/Vomiting: None Hydration: Adequate Anesthesia-Related Issues: No Anes. Related Issues
[2024-04-18 11:41] VITALS: BP 148/63; PULSE 62; RESP 18; TEMP 36.5; O2SAT 94
[2024-04-18 11:55] VITALS: RESP 16
[2024-04-18] MEDS: Insulin Lispro 100 UNIT/ML 3 ML VIAL SUBCUT (11:55)
--- NOTE | 2024-04-18 12:28 | PM.DS ---
DS: Providers Provider Date of Service: 04/18/24 Date of admission: 04/16/24 11:41 Date of discharge: 04/18/24 Primary care physician: Ashley Morales MD Consults: 04/15/24 19:09 Consult to Cardiology Routine Consulting Provider: [facility] [place] Reason for consultation: clearance for surgical intervention, Prolonged QTc DS: Diagnosis Discharge Diagnosis (1) Hematuria: Status: Acute (2) Left ureteral calculus: Status: Acute (3) Prolonged QT interval: Status: Acute (4) HTN (hypertension): Status: Acute DS: Summary Hospital Course Hospital Course: Admission note HPI An 78 years old lad with PMH of CAD s/p Atrial pacing, AAA, GERD, DM, Dementia, HTN among others who is admitted for left uretropelvic junctional stone with hydronephrosis. Noted to have higher than baseline QTc. No chest pain, palpitations, SOB, nausea, vomiting, diarrhea or urinary symptoms. Anesthesia cancelled the procedure and recommended further work up before going ahed with it. Looking back her QTc was always close to 500. Today it is 520. IT seems the patient was on Ciprofloxacin and she takes Donepezil at home. Electrolytes within acceptable levels. admitted for observation. Hospital course The patient was admitted for Prolonged QTc as her planned surgery was cancelled given concern over prolonged QTc of 516. She was Asymptomatic, repeated QTc of 490s after keeping normal Mg level and K above 4, cleared for surgical procedure by Cardiology team as Echo done with normal EF and held Donepezil. For the acute Uretral stone w obstruction she had Urology doing retrograde cystoscopy w basketing with no evidence of infection. To be followed by urology as outpatient. Hx CAD, ASA and Plavix on hold prior to surgery then restart po op. Amlodipine was started for elevated blood pressure readings. she needs a follow up with PCP for further adjustements of her home meds. Discharge plan Start Amlodipine for better blood pressure control Phenazopyridine for pain with urination Follow with Urology as outpatient Time Attestation Discharge Coordination Time (in mins): 43 Quality: Safe Use of Opioids Does Pt have an Active Cancer Diagnosis on the Problem List?: No Quality: Stroke Does the patient have a stroke diagnosis?: No Physical Exam Vital Signs: Vital Signs: Last Vital Signs Temp 97.7 F 04/18/24 11:41 Pulse 62 04/18/24 11:41 Resp 16 04/18/24 11:55 BP 148/63 H 04/18/24 11:41 Pulse Ox 94 04/18/24 11:41 O2 Del Method Room Air 04/18/24 11:41 O2 Flow Rate 2 04/17/24 15:32 BMI result Body Mass Index 31.9 Const: Other: Constitutional : Awake, interactive, not in distress Neck : Normal inspection, Supple Cardiovascular : RRR, no JVP, no lower extremity edema Respiratory : good bilateral air entry, no crackles, wheezes or rhonchi Gastrointestinal: soft, lax, Normal bowel sounds, Non tender Skin : Warm, Dry Neurological : Alert & oriented to self and place, No focal deficit DS: Data Data Completed and Pending Labs on day of discharge: Laboratory Results - last 24 hr 04/17/24 04/17/24 04/18/24 16:48 21:20 07:47 POC Glucose 99 192 H 117 H 04/18/24 11:23 POC Glucose 241 H Imaging Chest x-ray: Radiologist's impression: ITS Impressions Abdomen/Pelvis CT 04/14/24 18:50 IMPRESSION: 1. New 6 mm calculus in the left ureteropelvic junction with similar to slightly increased upstream pelvocaliectasis and similar to slightly increased peripelvic fatty haziness. Multiple additional renal calculi and parenchymal calcifications are stable. 2. Very large stool ball in the rectum and sigmoid with suggestion of mild wall thickening. Correlate clinically for stercoral colitis. 3. Stable 4.1 cm infrarenal abdominal aorta aneurysm. Based on published guidelines in J Am Tunde Radiol 2013; 10(10):789-794 and J Vasc Surg. 2018; 67:2-77, the recommendation for an abdominal aortic aneurysm with diameter 4.0-4.4 cm is vascular consultation and subsequent follow-up every 12 months. Electronically signed by: Norah Hull MD 04/14/2024 09:[address] 04/14/24 18:50 IMPRESSION: 1. No evidence of acute intracranial hemorrhage or edematous territorial infarction. 2. 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 Moderate underlying microangiopathy and generalized cerebral volume loss. Electronically signed by: Blake Leavitt DO 04/14/2024 08:55 PM EST RP Discharge Plan Discharge Anticipated Discharge Date/Time: 04/18/24 12:23 Patient Disposition: Home, Self-Care Discharge Diagnosis: LEft obstructive stone Referrals: Ashley Morales MD [Primary Care Provider] - 1 Week Discharge Medications: New amlodipine 5 mg Tablet 5 mg PO DAILY Qty: 90 0RF Protocol: Hold for SBP< HOLD for SBP < : 90 phenazopyridine 100 mg Tablet 100 mg PO TIDWM Qty: 9 0RF Continued (DME) blood-glucose meter [OneTouch Ultra2 Meter] [facility] See Rx Instructions .ROUTE .MEDSUPPLY Qty: 100 3RF Rx Instructions: tid pyridoxine (vitamin B6) 100 mg tablet 100 mg PO DAILY 90 Days Qty: 90 3RF (DME) pen needle, diabetic [Comfort EZ Pen [place]] 33 gauge x 5/32 needle See Rx Instructions .Route Qty: 100 3RF Rx Instructions: As directed cyanocobalamin (vitamin B-12) 1,000 mcg tablet 1,000 mcg PO DAILY Qty: 30 8RF (DME) FreeStyle Lite Strips Strip See Rx Instructions .Route Qty: 100 5RF Rx Instructions: test blood sugar 3 times per day famotidine 40 mg tablet 40 mg PO DAILY Qty: 90 3RF cholecalciferol (vitamin D3) 125 mcg (5,000 unit) capsule 125 mcg PO DAILY Qty: 90 3RF donepezil 5 mg tablet 5 mg PO BEDTIME Qty: 90 3RF metoprolol succinate 25 mg tablet extended release 24 hr 50 mg PO DAILY Qty: 90 3RF gabapentin 100 mg capsule 100 mg PO BID Qty: 180 3RF clopidogrel 75 mg tablet 75 mg PO DAILY Qty: 90 3RF allopurinol 100 mg tablet 100 mg PO DAILY 90 Days Qty: 90 1RF polyethylene glycol 3350 [Miralax] 17 gram/dose powder 17 g PO BID PRN (Reason: constipation) Qty: 238 0RF Rx Instructions: If no BM x 3 days lisinopril 40 mg Tablet 40 mg PO DAILY aspirin 81 mg capsule 81 mg PO DAILY Qty: 30 0RF acetaminophen 325 mg Tablet 650 mg PO Q4H PRN (Reason: Pain) loperamide 2 mg Capsule 2 mg PO Q4H PRN (Reason: LOOSE STOOLS) Rx Instructions: administer after each loose stool until symptoms controlled; do not exceed 8 mg per 24 hrs sennosides-docusate sodium [Stool Softener-Laxative] 8.6-50 mg tablet 2 tab PO BID magnesium hydroxide [Milk of Magnesia] 400 mg/5 mL Suspension 30 ml PO DAILY PRN (Reason: Constipation) alum-mag hydroxide-simeth [Mintox] 200-200-20 mg/5 mL Suspension 30 ml PO Q4H PRN (Reason: GI UPSET) Rx Instructions: administer between meals and at bedtime glycerin (adult) Suppository 1 supp [place] DAILY PRN (Reason: Constipation) PreserVision AREDS 2,148 mcg-113 mg-45 mg-17.4mg tablet 1 tab PO BID Tresiba FlexTouch U-100 100 unit/mL (3 mL) insulin pen 18 unit subcut BEDTIME Qty: 15 4RF rosuvastatin 20 mg tablet 20 mg PO BEDTIME levothyroxine 100 mcg tablet 100 mcg PO DAILY@0600 (DME) lancets [OneTouch Delica Lancets] 33 gauge misc See Rx Instructions .ROUTE .MEDSUPPLY Qty: 100 5RF Rx Instructions: TID (DME) blood sugar diagnostic Strip See Rx Instructions .ROUTE .MEDSUPPLY Qty: 100 4RF Rx Instructions: tid Discharge Orders: Discharge Order (Routine); Ordered 04/18/24 Ordered By: Mitzy Lee Diet: Low salt diet Activity on Discharge: As tolerated Stand Alone Forms: Patient Portal Discharge page Print Language: [place] Care Plan Goals: Start Amlodipine for better blood pressure control Phenazopyridine for pain with urination Follow with Urology as outpatient Health Concerns: Uretric stone Plan of Treatment: Monitor blood pressure: Amlodipine Assessment: as above Patient Instructions: Constipation (ED), High Fiber Diet (ED), Ureteral Stones (ED)
--- NOTE | 2024-04-18 12:44 | MHC.CM.PN ---
Pt has been medically cleared for DC, her dtr will pick her up and she will resume care at [facility].
== END 2024-04-18 15:44 | disposition home or self-care (01) | DRG 661 ==
LOC: HO.ED 04-15 15:54 → HO.SSS 04-15 17:19 → HO.IMC 04-15 20:08 → HO.SSS 04-16 11:42 → HO.IMC 04-16 11:42
PROVIDERS: Nurse Practitioner Family; Urology; Admitting Provider Student in an Organized Health Care Education/Training Program; Emergency Provider Emergency Medicine; PCP Internal Medicine; Visit Provider Student in an Organized Health Care Education/Training Program
PROC: 0TJB8ZZ Inspection of Bladder, Via Natural or Artificial Opening Endoscopic (ICD-10-PCS; CPT 52005; principal; 2024-04-17 13:00)
DX: N13.2 Hydronephrosis with renal and ureteral calculous obstruction (principal); E03.9 Hypothyroidism, unspecified; F03.90 Unspecified dementia, unspecified severity, without behavioral disturbance, psychotic disturbance, mood disturbance, and anxiety; I10 Essential (primary) hypertension; R31.9 Hematuria, unspecified; Z95.0 Presence of cardiac pacemaker; I25.10 Atherosclerotic heart disease of native coronary artery without angina pectoris; R94.31 Abnormal electrocardiogram [ECG] [EKG]; Z20.822 Contact with and (suspected) exposure to COVID-19; Z79.4 Long term (current) use of insulin; Z79.02 Long term (current) use of antithrombotics/antiplatelets; Z79.890 Hormone replacement therapy; Z79.899 Other long term (current) drug therapy
CPT/HCPCS: 0241U; 36415; 70450; 74176; 80048; 80053; 81001; 82947; 83690; 83735; 85025; 93005; 93306; 99222; 99285; C2617; J0360; J0690; J0736; J2003; J2270; J2405; J2704; J3010; J3475; J3480; J7120; Q9957; Q9967

== ENCOUNTER → 2024-04-14 18:10 | Outpatient (BNV) | payer MEDICARE, MEDICAID, SELFPAY | PROVIDERS: Emergency Provider Emergency Medicine; Visit Provider Urology | DX: N20.1 Calculus of ureter (principal) | CPT/HCPCS: 52332; 74420; 99232 ==

== ENCOUNTER → 2024-04-15 17:18 | Outpatient (BNV) | payer MEDICARE, MEDICAID, SELFPAY | PROVIDERS: Emergency Provider Emergency Medicine; Visit Provider Student in an Organized Health Care Education/Training Program | DX: R31.9 Hematuria, unspecified (principal); N20.1 Calculus of ureter; R94.31 Abnormal electrocardiogram [ECG] [EKG]; I10 Essential (primary) hypertension | CPT/HCPCS: 99223; 99232; 99239 ==

== ENCOUNTER → 2024-04-15 17:32 | Outpatient (BNV) | payer MEDICARE, MEDICAID, SELFPAY | PROVIDERS: Admitting Provider Student in an Organized Health Care Education/Training Program; Emergency Provider Emergency Medicine; PCP Internal Medicine; Visit Provider Internal Medicine Cardiovascular Disease | DX: R94.31 Abnormal electrocardiogram [ECG] [EKG] (principal) | CPT/HCPCS: 93010 ==

== ENCOUNTER 2024-04-16 11:41 | Outpatient (BNV) | payer MEDICARE, MEDICAID, SELFPAY | END 2024-04-17 13:08 | PROVIDERS: Admitting Provider Student in an Organized Health Care Education/Training Program; Emergency Provider Emergency Medicine; PCP Internal Medicine; Visit Provider Internal Medicine Cardiovascular Disease | DX: R94.31 Abnormal electrocardiogram [ECG] [EKG] (principal) | CPT/HCPCS: 93010 ==

== ENCOUNTER → 2024-04-16 11:41 | Outpatient (BNV) | payer MEDICARE, MEDICAID, SELFPAY | PROVIDERS: Admitting Provider Student in an Organized Health Care Education/Training Program; Emergency Provider Emergency Medicine; PCP Internal Medicine; Visit Provider Internal Medicine Cardiovascular Disease | DX: R94.31 Abnormal electrocardiogram [ECG] [EKG] (principal); I34.0 Nonrheumatic mitral (valve) insufficiency; I35.8 Other nonrheumatic aortic valve disorders; I51.89 Other ill-defined heart diseases; Z01.810 Encounter for preprocedural cardiovascular examination | CPT/HCPCS: 93010; 93306; 99223 ==

== ENCOUNTER 2024-04-19 15:40 | Inpatient (IN) | payer MEDICARE, MEDICAID, SELFPAY ==
[2024-04-19] VITALS (7 sets, daily range): BP systolic 114–187; BP diastolic 58–80; PULSE 60–70; RESP 12–18; TEMP 36.6–36.8; O2SAT 88–97; BMI 23.9
--- NOTE | 2024-04-19 | ECG_ITS ---
Test Reason : GRES Blood Pressure : / mmHG Vent. Rate : 060 BPM Atrial Rate : 060 BPM P-R Int : 260 ms QRS Dur : 118 ms QT Int : 500 ms P-R-T Axes : 000 -31 184 degrees QTc Int : 500 ms Atrial-paced rhythm with prolonged AV conduction Left axis deviation Incomplete right bundle branch block Minimal voltage criteria for LVH, may be normal variant ( Roberto product ) Inferior infarct (cited on or before 04-NOV-2020) Abnormal ECG When compared with ECG of 17-APR-2024 13:16, Nonspecific ST-T changes Referred By: Rashida Easton Electronically Signed By:Abhijeet Aldana
--- NOTE | ~2024-04-19 | CT_ITS ---
EXAMINATION: CT ABDOMEN AND PELVIS WITH CONTRAST CLINICAL INFORMATION: Pain status post ureteral stent placement. COMPARISON: CT scans dating between April 14, 2024 and August 15, 2020. TECHNIQUE: Multidetector volumetric images were obtained from the superior aspect of the liver through the pubic symphysis following administration 85 mL of Omnipaque 350 intravenous contrast. Sagittal and coronal reformatted images were obtained on the technologist's workstation. Oral contrast: No This CT examination was performed using dose optimization techniques as appropriate, variously including the following: *Automated exposure control *Adjustment of mA and/or kV according to patient size (this includes techniques or standardized protocols for targeted exams where dose is matched to indication/reason for exam; i.e. extremities or head) *Use of iterative reconstruction technique DLP: 532 mGy-cm FINDINGS: LUNG BASES: The lung bases appear clear, with no evidence of inflammation or nodules. Severe coronary arterial calcification. Heart normal in size. Mild calcification of the aortic valve. Tips of pulse generator device leads in right atrium and right ventricular apex. LIVER, GALLBLADDER, AND BILIARY TREE: Subcentimeter, segment 8 benign simple cyst or hemangioma (image 20, series 3), unchanged. The liver otherwise appears unremarkable in size, shape, and attenuation. No particularly suspicious focal hepatic lesion or biliary ductal dilatation is appreciated. Unremarkable appearance of the gallbladder. PANCREAS: Unremarkable SPLEEN: Unremarkable ADRENAL GLANDS: Bilateral adrenal thickening, unchanged. KIDNEYS AND URETERS/BLADDER: Approximately 0.4 cm or less, bilateral, nonobstructing renal collecting system stones, left more than right. The 6 mm left UVJ stone seen on CT scan from 5 days earlier is no longer appreciated at its previous location. The proximal loop of a new left double-J ureteral stent lies within the left renal pelvis, and the distal loop lies within the urinary bladder lumen. An approximately 0.7 cm right renal collecting system stone now lies at the right UPJ. No hydronephrosis or hydroureter is appreciated on either side. Small bilateral renal cortical scars. Trace air in the nondependent portion of the urinary bladder, likely iatrogenic. GASTROINTESTINAL TRACT: Focal loop of dilated right upper quadrant small bowel containing an air-fluid level measuring up to approximately 5 cm in diameter (for example, image 38, series 3), new compared with 5 days earlier. No evidence of significant bowel wall thickening or adjacent inflammation. Moderate amount of stool within the rectal vault, similar to mildly improved compared with 5 days earlier. Colonic diverticula without evidence of diverticulitis. Normal-appearing distal ileum. No evidence of appendicitis. ABDOMINAL WALL: No significant hernia is appreciated. LYMPH NODES: No evidence of adenopathy by size criteria. VASCULAR: Extensive calcific atherosclerosis involving the abdominal aorta, iliac arteries, and visceral arteries. Fusiform abdominal aortic aneurysm measuring up to approximately 3.8 cm in diameter and containing a small amount of mural thrombus. 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 PELVIC VISCERA: Status post hysterectomy. OSSEOUS STRUCTURES: Decreased bone mineral density. Mild osteoarthritis of the hips. Right proximal femoral bone island. CT/CT abdomen pelvis w IV con IMPRESSION: Approximately 0.4 cm or less, bilateral, nonobstructing renal collecting system stones, left more than right. The 6 mm left UVJ stone seen on CT scan from 5 days earlier is no longer appreciated at its previous location. The proximal loop of a new left double-J ureteral stent lies within the left renal pelvis, and the distal loop lies within the urinary bladder lumen. An approximately 0.7 cm right renal collecting system stone now lies at the right UPJ. No hydronephrosis or hydroureter is appreciated on either side. Focal loop of dilated right upper quadrant small bowel containing an air-fluid level measuring up to approximately 5 cm in diameter, new compared with 5 days earlier. No evidence of significant bowel wall thickening or adjacent inflammation. Moderate amount of stool within the rectal vault, similar to mildly improved compared with 5 days earlier. Additional findings, as above. Electronically signed by: Tyrone Crocker MD 04/19/2024 06:43 PM [facility]
--- NOTE | 2024-04-19 16:18 | ED.FEMALEGU ---
HPI - Female Genitourinary General Chief complaint: Urogenital-Female Stated complaint: ?UTI/KID[place] STONES, [place]18 [place] [facility] [place] [place] Time Seen by Provider: 04/19/24 16:18 Source: patient Limitations: other (Dementia) History of Present Illness ED Provider: Carmenza bland PA-C HPI Narrative: 78-year-old female with a history of dementia, diabetes, kidney stones now status post cystoscopy and left ureteral stent placed by Dr. Ernst on April 17, returns back to the emergency department with a new abdominal pain. History limited secondary to patient's dementia. Related Data Home Medications ?Medication ?Instructions ?Recorded ?Confirmed lisinopril 40 mg tablet 40 mg PO DAILY 11/04/20 04/16/24 levothyroxine 100 mcg tablet 100 mcg PO DAILY@0600 12/14/21 04/16/24 rosuvastatin 20 mg tablet 20 mg PO BEDTIME 12/14/21 04/16/24 acetaminophen 325 mg tablet 650 mg PO Q4H PRN Pain 04/16/24 04/16/24 aluminum-mag hydroxide-simethicone 30 ml PO Q4H PRN GI UPSET 04/16/24 04/16/24 200 mg-200 mg-20 mg/5 mL oral susp (Mintox) glycerin (adult) 1 supp MI DAILY PRN Constipation 04/16/24 04/16/24 loperamide 2 mg capsule 2 mg PO Q4H PRN LOOSE STOOLS 04/16/24 04/16/24 magnesium hydroxide 400 mg/5 mL 30 ml PO DAILY PRN Constipation 04/16/24 04/16/24 oral suspension (Milk of Magnesia) sennosides 8.6 mg-docusate sodium 2 tab PO BID 04/16/24 04/16/24 50 mg tablet (Stool Softener-Laxative) vitamins A,C,K-xvsr-nriios 2,148 1 tab PO BID 04/16/24 04/16/24 mcg-113 mg-45 mg-17.4 mg tablet (PreserVision AREDS) Previous Rx's ?Medication ?Instructions ?Recorded blood-glucose meter (OneTouch #100 ea 09/01/20 Ultra2 Meter) insulin degludec 100 unit/mL (3 18 unit (0.18 mL) subcut BEDTIME 07/20/21 mL) subcutaneous pen (Tresiba #15 mL FlexTouch U-100 insulin) pyridoxine (vitamin B6) 100 mg 100 mg PO DAILY 90 days #90 tabs 09/27/21 tablet blood sugar diagnostic #100 ea 10/20/21 lancets 33 gauge (OneTouch Delica #100 ea 10/20/21 Lancets) pen needle, diabetic 33 gauge x #100 ea 11/18/21/32 (Comfort EZ Pen [place]) cyanocobalamin (vitamin B-12) 1,000 mcg PO DAILY #30 tabs 12/30/21 1,000 mcg tablet blood sugar diagnostic (FreeStyle #100 ea 01/13/22 Lite Strips) cholecalciferol (vitamin D3) 125 125 mcg PO DAILY #90 caps 02/16/22 mcg (5,000 unit) capsule famotidine 40 mg tablet 40 mg PO DAILY #90 tabs 02/16/22 clopidogrel 75 mg tablet 75 mg PO DAILY #90 tabs 03/09/22 donepezil 5 mg tablet 5 mg PO BEDTIME #90 tabs 03/09/22 gabapentin 100 mg capsule 100 mg PO BID #180 caps 03/09/22 metoprolol succinate 25 mg 50 mg (2 x 25 mg) PO DAILY #90 tabs 03/09/22 tablet,extended release 24 hr allopurinol 100 mg tablet 100 mg PO DAILY 90 days #90 tabs 03/27/22 aspirin 81 mg capsule 81 mg PO DAILY #30 caps 06/26/22 polyethylene glycol 3350 17 17 g PO BID PRN constipation #238 11/10/22 gram/dose oral powder (Miralax) grams amlodipine 5 mg tablet 5 mg PO DAILY #90 tabs 04/18/24 phenazopyridine 100 mg tablet 100 mg PO TIDWM #9 tabs 04/18/24 Allergies Allergy/AdvReac Type Severity Reaction Status Date / Time atorvastatin Allergy Unknown pt does Verified 04/19/24 16:09 not know azithromycin Allergy Unknown pt does Verified 04/19/24 16:09 not know ceftriaxone Allergy Unknown pt does Verified 04/19/24 16:09 not know cephalexin Allergy Unknown pt does Verified 04/19/24 16:09 not know citalopram Allergy Unknown pt does Verified 04/19/24 16:09 not know levofloxacin Allergy Unknown pt does Verified 04/19/24 16:09 not know metformin Allergy Unknown pt does Verified 04/19/24 16:09 not know nitrofurantoin Allergy Unknown pt does Verified 04/19/24 16:09 not know oxycodone Allergy Unknown pt does Verified 04/19/24 16:09 not know penicillin V Allergy Unknown pt does Verified 04/19/24 16:09 not know pioglitazone Allergy Unknown pt does Verified 04/19/24 16:09 not know repaglinide Allergy Unknown pt does Verified 04/19/24 16:09 not know rosuvastatin [Crestor] Allergy Unknown pt does Verified 04/19/24 16:09 not know sertraline Allergy Unknown pt does Verified 04/19/24 16:09 not know simvastatin Allergy Unknown pt does Verified 04/19/24 16:09 not know sulfacetamide Allergy Unknown pt does Verified 04/19/24 16:09 not know aspirin Allergy Unknown Verified 04/19/24 16:09 Cefuroxime Sodium Allergy Unknown pt does Uncoded 04/14/24 18:20 not know Review of Systems Review of Systems: Yes all other systems are reviewed and are negative Constitutional: Constitutional: Denies fatigue and Denies fever(s) Gastrointestinal: Gastrointestinal: Reports abdominal pain, Reports nausea and Denies vomiting Genitourinary: Genitourinary: Reports urinary incontinence Endocrine: Endocrine: Denies fatigue PMFSH Past Medical History Attestation statement: The following information was validated with the patient. Medical History Annual physical exam HTN (hypertension) IDDM (insulin dependent diabetes mellitus) Diverticulitis Nephrolithiasis Cataract Hyperlipidemia Pacemaker Myocardial infarct Macular degeneration Nephrolithiasis Dementia Frequent UTI HTN (hypertension) Hypothyroid Diabetes Surgical History Status post lumbar spine surgery for decompression of spinal cord H/O left knee surgery Family History Family History Father Heart attack Mother Heart problem Heart attack Substance use disorder Social History Social History Household Members: None Household Members Other:: lives in assisted living Housing: Assisted Living Facility Housing Other:: [facility] Do you presently have visiting nurse or other home services: Yes Alcohol intake: never Patient Tobacco Use Status: Current everyday Tobacco user Tobacco use type: Cigarette Cigarettes Per Day: 10.0 Years Smoked: 54 Smoked in Last 30 Days: No e-Cigarette/Vaping Use: Never Used Second Hand Smoke Exposure: No Use of substances other than those prescribed or required for medical reasons: No Advance Directives: Yes Advance Directives on File: Yes Advance Directives Date on File: 11/05/20 Do you have a plan to hurt others: No Plan service: No Current occupational status: retired Cognitive needs: No Hearing needs: No Vision needs: Yes Physical Exam Vital Signs: Vital Signs: Last Vital Signs Temp 97.9 F 04/19/24 18:56 Pulse 60 04/19/24 18:56 Resp 18 04/19/24 18:56 BP 187/61 H 04/19/24 18:56 Pulse Ox 95 04/19/24 18:56 O2 Del Method Room Air 04/19/24 18:56 BMI result Body Mass Index 23.9 Const: Other: Awake Orientation/consciousness: oriented to person Resp: Other: Nonlabored respiration Cardio: Other: Normal peripheral perfusion GI: Other: Abdomen is soft, nondistended, generalized tenderness to palpation that is moderate with moderate objective guarding on exam Skin: Other: Warm dry no rash Neuro: General: oriented to person Psych: Other: Cooperative Course Consultations Consultation #1: josh urologyDr. Ernst Time: 19:35 Medications Administered Discontinued Medications Generic Name Dose Route Start Last Admin Trade Name Freq PRN Reason Stop Dose Admin Sodium Chloride 500 mls @ 500 mls/hr 04/19/24 16:30 04/19/24 18:57 Ns IV 04/19/24 17:29 Infused .Q1H ONE Infusion Iohexol 100 ml 04/19/24 17:42 04/19/24 17:42 Iohexol 350 Mg/Ml 100 Ml Infus..Btl IV 04/19/24 17:43 85 ml ONCE ONE Administration Morphine Sulfate 4 mg 04/19/24 16:30 04/19/24 16:55 Morphine Sulfate 4 Mg/Ml Cartridge IVPUSH 04/19/24 16:31 4 mg ONCE ONE Administration Protocol Morphine Sulfate 8 mg 04/19/24 19:14 04/19/24 19:22 Morphine Sulfate 10 Mg/Ml Cartridge IVPUSH 04/19/24 19:15 8 mg ONCE ONE Administration Protocol Ondansetron HCl 4 mg 04/19/24 16:30 04/19/24 16:55 Ondansetron Hcl 4 Mg/2 Ml Vial IVPUSH 04/19/24 16:31 4 mg ONCE ONE Administration Medical Decision Making Medical Decision Making MDM Narrative: 78-year-old female with a history of dementia, diabetes, kidney stones now status post cystoscopy and left ureteral stent placed by Dr. Ernst on April 17, returns back to the emergency department with a new abdominal pain. History limited secondary to patient's dementia. Problem: Kidney stones, recent procedure, dementia, diabetes History: Per patient which is limited, EMS also reports I have considered the following differential diagnoses: Additional obstructing kidney stone, postsurgical complication, pyelonephritis, urosepsis Plan: We will be obtaining screening labs and a urinalysis, obtaining a CT scan. We will be giving fluid morphine and Zofran for her discomfort. Patient could have a postoperative complication, she could be passing another stone, she has numerous that are bilateral. She is afebrile, normotensive, she does not meet criteria for sepsis. I have independently reviewed the following tests: Labs: No leukocytosis, not anemic, no electrolyte abnormality, urine is infected adding blood cultures, lactic acid, despite her allergy profile, I can see from prior notes that she has used fluoroquinolones, we will treat with Levaquin IV. CT abdomen and pelvis: CT/CT abdomen pelvis w IV con IMPRESSION: Approximately 0.4 cm or less, bilateral, nonobstructing renal collecting system stones, left more than right. The 6 mm left UVJ stone seen on CT scan from 5 days earlier is no longer appreciated at its previous location. The proximal loop of a new left double-J ureteral stent lies within the left renal pelvis, and the distal loop lies within the urinary bladder lumen. An approximately 0.7 cm right renal collecting system stone now lies at the right UPJ. No hydronephrosis or hydroureter is appreciated on either side. Focal loop of dilated right upper quadrant small bowel containing an air-fluid level measuring up to approximately 5 cm in diameter, new compared with 5 days earlier. No evidence of significant bowel wall thickening or adjacent inflammation. Moderate amount of stool within the rectal vault, similar to mildly improved compared with 5 days earlier. Additional findings, as above. Electronically signed by: Tyrone Crocker MD 04/19/2024 06:43 PM [facility] Lab Data 04/19/24 16:36 04/19/24 16:36 Labs: Lab Results 04/19/24 04/19/24 Range/Units 16:36 18:54 WBC 8.0 (4.8-10.8) X10*3/uL RBC 4.66 (4.20-5.50) X10*6/uL Hgb 13.2 (12.0-16.0) g/dl Hct 42.2 (37.0-47.0) % MCV 90.6 (80.0-98.0) fL MCH 28.3 (27.0-33.0) pg MCHC 31.3 (31.0-35.0) g/dl RDW 16.4 H (11.0-16.0) % Plt Count 198 (160-400) X10*3/uL MPV 9.5 (9.4-12.3) fL Immature Gran % (Auto) 0.3 (0.0-0.4) % Neut % (Auto) 66.6 (45-73) % Lymph % (Auto) 23.3 (20-40) % [place] % (Auto) 7.1 (2-11) % Eos % (Auto) 1.9 (0-4) % Baso % (Auto) 0.8 (0-2) % Lymph # (Auto) 1.9 (1.2-4.9) X10*3/uL [place] # (Auto) 0.6 (0.1-1.2) X10*3/uL Eos # (Auto) 0.2 (0.0-0.4) X10*3/uL Baso # (Auto) 0.1 (0.0-0.2) X10*3/uL Abs Immat Gran (auto) 0.02 (0.00-0.03) X10*3/uL Absolute Neuts (auto) 5.3 (2.0-8.3) x10*3/uL Absolute Nucleated RBC 0.000 (0.0-0.012) X10*3/uL Nucleated RBC % (auto) 0.0 (0.0-0.2) /100WBC Sodium 146 H (135-145) mmol/L Potassium 3.7 (3.3-5.1) mmol/L Chloride 109 H (96-108) mmol/L Carbon Dioxide 25 (22-29) mmol/L Anion Gap 16 (12-20) BUN 13 (9-16) mg/dL Creatinine 0.80 (0.5-1.4) mg/dL Estim Creat Clear Calc 46.3 Estimated GFR > 60 Random Glucose 155 H (60-115) mg/dL Calcium 9.5 (8.4-10.2) mg/dL Magnesium 2.0 (1.6-2.6) mg/dL Total Bilirubin 0.3 (0.0-1.0) mg/dL AST 20 (5-31) U/L ALT 9 (0-31) U/L Alkaline Phosphatase 89 (39-117) U/L Total Protein 6.5 (6.5-8.0) g/dL Albumin 3.6 (3.5-5.0) g/dL Urine Color [place] A Urine Appearance Turbid Urine pH 6.0 (5.0-9.0) Ur Specific [place] >= 1.030 H (1.005-1.025) Urine Protein 100 (2+) H (Neg-Trace) mg/dL Urine Glucose (UA) Negative (Negative) mg/dL Urine Ketones Negative (Negative) mg/dL Urine Blood Large (3+) H (Negative) Urine Nitrite Positive H (Negative) Ur Leukocyte Esterase Moderate (2+) H (Negative) Urine RBC >20 H (0-2) /HPF Urine WBC 6-10 H (0-5) /HPF Ur Squamous Epith Cells 0-2 (0-2) /HPF Urine Bacteria None Seen (None Seen) Hyaline Casts 0-2 (0-2) /LPF Discharge Plan Discharge Clinical Impression: Obstruction of right ureteropelvic junction (UPJ) due to stone, Urinary tract infection Patient Disposition: Admitted As Inpatient Prescriptions: No Action (DME) blood-glucose meter [OneTouch Ultra2 Meter] Misc See Rx Instructions .ROUTE .MEDSUPPLY Qty: 100 3RF Rx Instructions: tid pyridoxine (vitamin B6) 100 mg tablet 100 mg PO DAILY 90 Days Qty: 90 3RF (DME) pen needle, diabetic [Comfort EZ Pen [place]] 33 gauge x 5/32 needle See Rx Instructions .Route Qty: 100 3RF Rx Instructions: As directed cyanocobalamin (vitamin B-12) 1,000 mcg tablet 1,000 mcg PO DAILY Qty: 30 8RF (DME) FreeStyle Lite Strips Strip See Rx Instructions .Route Qty: 100 5RF Rx Instructions: test blood sugar 3 times per day famotidine 40 mg tablet 40 mg PO DAILY Qty: 90 3RF cholecalciferol (vitamin D3) 125 mcg (5,000 unit) capsule 125 mcg PO DAILY Qty: 90 3RF donepezil 5 mg tablet 5 mg PO BEDTIME Qty: 90 3RF metoprolol succinate 25 mg tablet extended release 24 hr 50 mg PO DAILY Qty: 90 3RF gabapentin 100 mg capsule 100 mg PO BID Qty: 180 3RF clopidogrel 75 mg tablet 75 mg PO DAILY Qty: 90 3RF allopurinol 100 mg tablet 100 mg PO DAILY 90 Days Qty: 90 1RF polyethylene glycol 3350 [Miralax] 17 gram/dose powder 17 g PO BID PRN (Reason: constipation) Qty: 238 0RF Rx Instructions: If no BM x 3 days lisinopril 40 mg Tablet 40 mg PO DAILY aspirin 81 mg capsule 81 mg PO DAILY Qty: 30 0RF acetaminophen 325 mg Tablet 650 mg PO Q4H PRN (Reason: Pain) loperamide 2 mg Capsule 2 mg PO Q4H PRN (Reason: LOOSE STOOLS) Rx Instructions: administer after each loose stool until symptoms controlled; do not exceed 8 mg per 24 hrs sennosides-docusate sodium [Stool Softener-Laxative] 8.6-50 mg tablet 2 tab PO BID magnesium hydroxide [Milk of Magnesia] 400 mg/5 mL Suspension 30 ml PO DAILY PRN (Reason: Constipation) alum-mag hydroxide-simeth [Mintox] 200-200-20 mg/5 mL Suspension 30 ml PO Q4H PRN (Reason: GI UPSET) Rx Instructions: administer between meals and at bedtime glycerin (adult) Suppository 1 supp MI DAILY PRN (Reason: Constipation) PreserVision AREDS 2,148 mcg-113 mg-45 mg-17.4mg tablet 1 tab PO BID amlodipine 5 mg Tablet 5 mg PO DAILY Qty: 90 0RF Protocol: Hold for SBP< HOLD for SBP < : 90 phenazopyridine 100 mg Tablet 100 mg PO TIDWM Qty: 9 0RF Tresiba FlexTouch U-100 100 unit/mL (3 mL) insulin pen 18 unit subcut BEDTIME Qty: 15 4RF rosuvastatin 20 mg tablet 20 mg PO BEDTIME levothyroxine 100 mcg tablet 100 mcg PO DAILY@0600 (DME) lancets [OneTouch Delica Lancets] 33 gauge misc See Rx Instructions .ROUTE .MEDSUPPLY Qty: 100 5RF Rx Instructions: TID (DME) blood sugar diagnostic Strip See Rx Instructions .ROUTE .MEDSUPPLY Qty: 100 4RF Rx Instructions: tid Print Language: [place]an
[2024-04-19 16:41] LABS: MANUAL DIFF FLAG NO
[2024-04-19 16:49] LABS: Basophils Absolute Auto 0.1 X10*3/uL (0.0-0.2); Basophils Percent Auto 0.8 % (0-2); Eosinophils Absolute Auto 0.2 X10*3/uL (0.0-0.4); Eosinophils Percent Auto 1.9 % (0-4); Hematocrit 42.2 % (37.0-47.0); Hemoglobin 13.2 g/dl (12.0-16.0); Imm Gran Abs Auto 0.02 X10*3/uL (0.00-0.03); Imm Gran Pct Auto 0.3 % (0.0-0.4); Lymphocytes Absolute Auto 1.9 X10*3/uL (1.2-4.9); Lymphocytes Percent Auto 23.3 % (20-40); Mean Corpuscular HGB Conc 31.3 g/dl (31.0-35.0); Mean Corpuscular Hemoglobin 28.3 pg (27.0-33.0); Mean Corpuscular Volume 90.6 fL (80.0-98.0); Mean Platelet Volume 9.5 fL (9.4-12.3); Monocytes Absolute Auto 0.6 X10*3/uL (0.1-1.2); Monocytes Percent Auto 7.1 % (2-11); Neutrophils Absolute Auto 5.3 x10*3/uL (2.0-8.3); Neutrophils Percent Auto 66.6 % (45-73); Platelet Count 198 X10*3/uL (160-400); Red Blood Count 4.66 X10*6/uL (4.20-5.50); Red Cell Distribution Width 16.4 % (11.0-16.0)
[2024-04-19] MEDS: 0.9 % Sodium Chloride 500 ML IV (16:54)
[2024-04-19] MEDS: Morphine Sulfate 4 MG/ML CARTRIDGE IVPUSH (16:55)
[2024-04-19] MEDS: ondansetron HCL 4 MG/2 ML VIAL IVPUSH (16:55)
[2024-04-19 17:13] LABS: Alanine Aminotransferase 9 U/L (0-31); Albumin Level 3.6 g/dL (3.5-5.0); Anion Gap 16 (12-20); Aspartate Amino Transferase 20 U/L (5-31); Bilirubin Total 0.3 mg/dL (0.0-1.0); Blood Urea Nitrogen 13 mg/dL (9-16); Calcium 9.5 mg/dL (8.4-10.2); Carbon Dioxide 25 mmol/L (22-29); Chloride 109 mmol/L (96-108); Creatinine Clr Calc Pharmacy 46.3; Estimated Glomerular Filt Rate > 60; Glucose Random 155 mg/dL (60-115); Potassium 3.7 mmol/L (3.3-5.1); Sodium 146 mmol/L (135-145); Total Protein 6.5 g/dL (6.5-8.0)
[2024-04-19] MEDS: iohexoL 350 MG/ML 100 ML INFUS..BTL IV (17:42)
[2024-04-19 17:57] LABS: Alkaline Phosphatase 89 U/L (39-117)
[2024-04-19 19:19] LABS: Appearance Urine Turbid; Color Urine Orange; Glucose Urine UA Negative (Negative); Leukocyte Esterase Urine Moderate (2+) (Negative); Nitrite Urine Positive (Negative); Specific Gravity - Urine >= 1.030 (1.005-1.025); UMIC TRIGGER UACC YES; Urine Blood Large (3+) (Negative); Urine Ketones Negative (Negative); Urine Protein 100 (2+) mg/dL (Neg-Trace)
[2024-04-19 19:20] LABS: Bacteria Urine None Seen (None Seen); Hyaline Casts Urine 0-2 /LPF (0-2); RBC Urine >20 /HPF (0-2); Squamous Epithelial Cell Urine 0-2 /HPF (0-2); UACC Culture Trigger YES
[2024-04-19] MEDS: Morphine Sulfate 10 MG/ML CARTRIDGE 8 MG IVPUSH (19:22)
--- NOTE | 2024-04-19 19:43 | MHC.EDTECH ---
This tech took over care of patient at 1900,rounded and introduced self to pt,upon entry to room pt found to be 88% on RA, RN called to room,pt placed on 2L VNC by RN,pt sats are 96% at this time,vitals taken,blood cultures and lactic drawn at this time and sent to lab,call garay in reach
--- NOTE | 2024-04-19 19:52 | PC.NURSE ---
Patient given large dose of morphine for pain, slightly hypoxic afterwards, 88%, placed on 2L sats improved to 97%. BC and lactic being drawn at this time.
[2024-04-19] MEDS: levoFLOXacin/D5W 750 MG/150 ML PIGGYBACK 100 MG IV (20:16)
[2024-04-19 20:28] LABS: Lactic Acid 0.7 mmol/L (0.5-2.0)
--- NOTE | 2024-04-19 21:18 | P.HPHOSP_ITS ---
History of Present Illness Date of Service: 04/19/24 Attending physician on admission: Rashida Easton Chief Complaint: LLQ pain China Carter is a very pleasant 78 years old woman with past medical history significant for nephrolithiasis, recent cystoscopy + left stent insertion by Dr. Ernst essential hypertension, hyperlipidemia, PPM, CAD and hypothyroidism presents to the ED complaining of left lower quadrant pain that started today associated with nausea and vomiting. She complained of having pressure sensation upon urinating and bloody urine. The pain has not radiations and had an intensity of 10/10. Currently, her pain is well controlled after receiving a few doses of morphine IV. She denies fever, chills and diarrhea. She denied any acute cardiopulmonary symptoms. In the ED, she was found to have stable vital signs. Oxygen saturation dropped to 88% after receiving morphine IV. She currently requiring 2 L/min of supplemental oxygen via nasal cannula. Blood workup showed no leukocytosis or lactic acidosis. Hemoglobin and platelets are normal. Sodium is 146. There are no other electrolyte imbalances. Glucose is 155. LFTs are normal. Urinalysis consistent with UTI and presence of blood. Abdominal pelvis CT scan with IV contrast showed bilateral nonobstructive renal collecting system stones, left UVJ stone not longer present, no hydronephrosis, focal lobe dilation and right upper quadrant with no evidence of SBO and moderate amount of stool within the rectal vault. ED tx: NS 500 mL bolus, morphine 12 mg IV, Zofran 4 mg IV, levofloxacin 750 mg IV Review of Systems 2 Review of Systems: All 12 systems were reviewed and normal except as noted in HPI. FORMERLY [facility], [facility] Medical History Annual physical exam HTN (hypertension) IDDM (insulin dependent diabetes mellitus) Diverticulitis Nephrolithiasis Cataract Hyperlipidemia Pacemaker Myocardial infarct Macular degeneration Nephrolithiasis Dementia Frequent UTI HTN (hypertension) Hypothyroid Diabetes Family History Father Heart attack Mother Heart problem Heart attack Substance use disorder Surgical History Status post lumbar spine surgery for decompression of spinal cord H/O left knee surgery Social History Household Members: None Household Members Other:: lives in assisted living Housing: Assisted Living Facility Housing Other:: [facility] Do you presently have visiting nurse or other home services: Yes Alcohol intake: never Patient Tobacco Use Status: Current everyday Tobacco user Tobacco use type: Cigarette Cigarettes Per Day: 10.0 Years Smoked: 54 Smoked in Last 30 Days: No e-Cigarette/Vaping Use: Never Used Second Hand Smoke Exposure: No Use of substances other than those prescribed or required for medical reasons: No Advance Directives: Yes Advance Directives on File: Yes Advance Directives Date on File: 11/05/20 Do you have a plan to hurt others: No Plan service: No Current occupational status: retired Cognitive needs: No Hearing needs: No Vision needs: Yes Meds Allergies Allergy/AdvReac Type Severity Reaction Status Date / Time atorvastatin Allergy Unknown pt does Verified 04/19/24 16:09 not know azithromycin Allergy Unknown pt does Verified 04/19/24 16:09 not know ceftriaxone Allergy Unknown pt does Verified 04/19/24 16:09 not know cephalexin Allergy Unknown pt does Verified 04/19/24 16:09 not know citalopram Allergy Unknown pt does Verified 04/19/24 16:09 not know levofloxacin Allergy Unknown pt does Verified 04/19/24 16:09 not know metformin Allergy Unknown pt does Verified 04/19/24 16:09 not know nitrofurantoin Allergy Unknown pt does Verified 04/19/24 16:09 not know oxycodone Allergy Unknown pt does Verified 04/19/24 16:09 not know penicillin V Allergy Unknown pt does Verified 04/19/24 16:09 not know pioglitazone Allergy Unknown pt does Verified 04/19/24 16:09 not know repaglinide Allergy Unknown pt does Verified 04/19/24 16:09 not know rosuvastatin [Crestor] Allergy Unknown pt does Verified 04/19/24 16:09 not know sertraline Allergy Unknown pt does Verified 04/19/24 16:09 not know simvastatin Allergy Unknown pt does Verified 04/19/24 16:09 not know sulfacetamide Allergy Unknown pt does Verified 04/19/24 16:09 not know aspirin Allergy Unknown Verified 04/19/24 16:09 Cefuroxime Sodium Allergy Unknown pt does Uncoded 11/11/24 18:20 not know Active Medications: Current Medications Acetaminophen (Acetaminophen 325 Mg Tablet) 975 mg PO Q6H PRN PRN Reason: Pain, Mild (Pain Scale 1-3), fever or headache Hydromorphone HCl (Hydromorphone Hcl 0.5 Mg/0.5 Ml Syringe) 0.5 mg IVPUSH Q4H PRN; Protocol PRN Reason: Pain, Severe (Pain Scale 7-10) Levofloxacin (Levaquin) 500 mg in 100 mls @ 100 mls/hr IV BEDTIME [facility] Melatonin (Melatonin 3 Mg Tablet) 6 mg PO BEDTIME PRN PRN Reason: Insomnia Ondansetron HCl (Ondansetron Hcl 4 Mg/2 Ml Vial) 4 mg IVPUSH Q8H PRN PRN Reason: Nausea and Vomiting Sodium Chloride (0.9 % Sodium Chloride Flush 3 Ml Syringe) 3 ml IVFLUSH QSHIFT [facility] Home Medications ?Medication ?Instructions ?Recorded ?Confirmed ?Last Taken ?Type lisinopril 40 mg tablet 40 mg PO DAILY 11/04/20 04/16/24 11/03/20 History levothyroxine 100 mcg tablet 100 mcg PO DAILY@0600 12/14/21 04/16/24 Unknown History rosuvastatin 20 mg tablet 20 mg PO BEDTIME 12/14/21 04/16/24 Unknown History acetaminophen 325 mg tablet 650 mg PO Q4H PRN Pain 04/16/24 04/16/24 Unknown History aluminum-mag hydroxide-simethicone 30 ml PO Q4H PRN GI UPSET 04/16/24 04/16/24 Unknown History 200 mg-200 mg-20 mg/5 mL oral susp (Mintox) glycerin (adult) 1 supp MA DAILY PRN Constipation 04/16/24 04/16/24 Unknown History loperamide 2 mg capsule 2 mg PO Q4H PRN LOOSE STOOLS 04/16/24 04/16/24 Unknown History magnesium hydroxide 400 mg/5 mL 30 ml PO DAILY PRN Constipation 04/16/24 04/16/24 Unknown History oral suspension (Milk of Magnesia) sennosides 8.6 mg-docusate sodium 2 tab PO BID 04/16/24 04/16/24 Unknown History 50 mg tablet (Stool Softener-Laxative) vitamins A,C,J-qiym-rrixsa 2,148 1 tab PO BID 04/16/24 04/16/24 Unknown History mcg-113 mg-45 mg-17.4 mg tablet (PreserVision AREDS) Physical Exam 2 Vital Signs and Narrative: Vital Signs: Last Vital Signs Temp 98.0 F 04/19/24 19:39 Pulse 60 04/19/24 19:39 Resp 14 04/19/24 19:39 BP 142/60 H 04/19/24 19:39 Pulse Ox 96 04/19/24 19:41 O2 Del Method Nasal Cannula 04/19/24 19:41 O2 Flow Rate 2 04/19/24 19:41 BMI result Body Mass Index 23.9 Results Labs 04/19/24 16:36 04/19/24 16:36 Labs: Laboratory Results - last 24 hr 04/19/24 04/19/24 04/19/24 16:36 18:54 19:57 MCV 90.6 MCH 28.3 MCHC 31.3 RDW 16.4 H Plt Count 198 MPV 9.5 Immature Gran % (Auto) 0.3 Neut % (Auto) 66.6 Lymph % (Auto) 23.3 [place] % (Auto) 7.1 Eos % (Auto) 1.9 Baso % (Auto) 0.8 Lymph # (Auto) 1.9 [place] # (Auto) 0.6 Eos # (Auto) 0.2 Baso # (Auto) 0.1 Abs Immat Gran (auto) 0.02 Absolute Neuts (auto) 5.3 Absolute Nucleated RBC 0.000 Nucleated RBC % (auto) 0.0 Anion Gap 16 Estim Creat Clear Calc 46.3 Estimated GFR > 60 Random Glucose 155 H Lactic Acid 0.7 Calcium 9.5 Magnesium 2.0 Total Bilirubin 0.3 AST 20 ALT 9 Alkaline Phosphatase 89 Total Protein 6.5 Albumin 3.6 Urine Color [place] A Urine Appearance Turbid Urine pH 6.0 Ur Specific [place] >= 1.030 H Urine Protein 100 (2+) H Urine Glucose (UA) Negative Urine Ketones Negative Urine Blood Large (3+) H Urine Nitrite Positive H Ur Leukocyte Esterase Moderate (2+) H Urine RBC >20 H Urine WBC 6-10 H Ur Squamous Epith Cells 0-2 Urine Bacteria None Seen Hyaline Casts 0-2 Imaging Radiologist's Impressions: Impressions Abdomen/Pelvis CT 04/19/24 17:31 IMPRESSION: Approximately 0.4 cm or less, bilateral, nonobstructing renal collecting system stones, left more than right. The 6 mm left UVJ stone seen on CT scan from 5 days earlier is no longer appreciated at its previous location. The proximal loop of a new left double-J ureteral stent lies within the left renal pelvis, and the distal loop lies within the urinary bladder lumen. An approximately 0.7 cm right renal collecting system stone now lies at the right UPJ. No hydronephrosis or hydroureter is appreciated on either side. Focal loop of dilated right upper quadrant small bowel containing an air-fluid level measuring up to approximately 5 cm in diameter, new compared with 5 days earlier. No evidence of significant bowel wall thickening or adjacent inflammation. Moderate amount of stool within the rectal vault, similar to mildly improved compared with 5 days earlier. Additional findings, as above. Electronically signed by: Tyrone Crocker MD 04/19/2024 06:43 PM [facility] Assessment and Plan (1) Pyelonephritis: Status: Acute (2) Hypernatremia: Status: Acute Plan China Carter is a 78 y/o woman admitted with: * Acute pyelonephritis s/p ureteral left stent insertion (Apr [address] Ernst). Admit to hospitalist service. Encourage oral hydration. Continue empiric IV antibiotic therapy with levofloxacin 500 mg IV daily. Antiemetic therapy as needed. Blood and urine cultures obtained -will follow results. Urology consult. * Mild hypernatremia. Encourage free water intake. Continue to monitor Na+ level. * Gout. Continue allopurinol. * GERD. Continue famotidine. * Essential hypertension. Continue lisinopril, amlodipine and metoprolol. * Hypothyroidism. Continue levothyroxine. * CAD. Continue Plavix and aspirin. * Dementia. Hold donepezil -combination with levofloxacin can cause QT interval prolongation. * Hyperlipidemia. Continue statin. DVT prophylaxis: SCDs Code status: Full Patient will need hospitalization for at least 2 midnights for acute pyelonephritis after insertion of ureteral stent insertion management with IV antibiotics and evaluation by urology service. Quality Stroke Does the patient have a stroke diagnosis?: No VTE Prior VTE?: No VTE Risk Level:: Medical - moderate - high VTE Device Contraindication: N/A - Device Ordered VTE Drug Contraindication: Treatment Not Indicated
--- NOTE | 2024-04-19 23:36 | MHC.EDTECH ---
This tech resumed care of patient at 2300,EKG completed per hospitalist order,tiger text image to ,vitals and belongings list completed,call garay in reach
[2024-04-20] VITALS (8 sets, daily range): BP systolic 113–157; BP diastolic 53–67; PULSE 60–62; RESP 16–20; TEMP 36.4–37; O2SAT 92–97; BMI 25.8
[2024-04-20] MEDS: HYDROmorphone HCl 0.5 MG/0.5 ML SYRINGE IVPUSH ×5 (00:08→22:54)
--- NOTE | 2024-04-20 03:37 | PC.NURSE ---
pt from the main ED, report received from Ashley Cohen RN, assume care of pt at this time. Pt up to the BR, with one standby asist. will cont plan of care
[2024-04-20 06:24] LABS: MANUAL DIFF FLAG NO
[2024-04-20 06:25] LABS: Basophils Absolute Auto 0.1 X10*3/uL (0.0-0.2); Basophils Percent Auto 0.6 % (0-2); Eosinophils Absolute Auto 0.2 X10*3/uL (0.0-0.4); Hematocrit 40.7 % (37.0-47.0); Hemoglobin 12.7 g/dl (12.0-16.0); Imm Gran Abs Auto 0.02 X10*3/uL (0.00-0.03); Imm Gran Pct Auto 0.2 % (0.0-0.4); Lymphocytes Absolute Auto 1.8 X10*3/uL (1.2-4.9); Lymphocytes Percent Auto 21.6 % (20-40); Mean Corpuscular HGB Conc 31.2 g/dl (31.0-35.0); Mean Corpuscular Hemoglobin 28.5 pg (27.0-33.0); Mean Corpuscular Volume 91.5 fL (80.0-98.0); Mean Platelet Volume 9.7 fL (9.4-12.3); Monocytes Absolute Auto 0.6 X10*3/uL (0.1-1.2); Monocytes Percent Auto 7.1 % (2-11); Neutrophils Absolute Auto 5.6 x10*3/uL (2.0-8.3); Neutrophils Percent Auto 68.5 % (45-73); Platelet Count 182 X10*3/uL (160-400); Red Blood Count 4.45 X10*6/uL (4.20-5.50); Red Cell Distribution Width 16.3 % (11.0-16.0); White Blood Count 8.1 X10*3/uL (4.8-10.8)
[2024-04-20 06:40] LABS: Anion Gap 14 (12-20); Blood Urea Nitrogen 13 mg/dL (9-16); Calcium 8.6 mg/dL (8.4-10.2); Carbon Dioxide 23 mmol/L (22-29); Chloride 110 mmol/L (96-108); Estimated Glomerular Filt Rate > 60; Glucose Random 96 mg/dL (60-115); Potassium 3.7 mmol/L (3.3-5.1); Sodium 143 mmol/L (135-145)
--- NOTE | 2024-04-20 06:55 | PC.NURSE ---
report given Ileana BUTLER
--- NOTE | 2024-04-20 07:32 | PHA.MEDREC ---
Pharmacy Consult ? Medication Reconciliation Pharmacy has completed the medication reconciliation. Pt was discharged 04/18/24. Utilized discharge packet to confirm meds.
[2024-04-20] MEDS: Acetaminophen 325 MG TABLET 975 MG PO (08:30)
[2024-04-20] MEDS: Sennosides/Docusate Sodium TABLET 2 TAB PO ×3 (08:30→20:43)
[2024-04-20] MEDS: 0.9 % Sodium Chloride Flush 3 ML SYRINGE IVFLUSH ×3 (08:31→20:46)
--- NOTE | 2024-04-20 09:15 | PC.NURSE ---
Resumed care of patient at 0700, pt was resting comfortably in bed, pt needing to get up and go to the bathroom, pt 1ast up to bedside commode at this time. Pt tolerated well. Pt reporting pain in her side, given PRN medications per MAR. Pt very excited about breakfast, and ate 100%. Awaiting medication approval for chronic medications at this time. Call garay within reach.
[2024-04-20] MEDS: Multivitamin TABLET 1 TAB PO ×2 (10:02→20:43)
[2024-04-20] MEDS: Pyridoxine HCl (Vitamin B6) 50 MG TABLET 100 MG PO (10:02)
[2024-04-20] MEDS: Metoprolol Succinate ER 50 MG TAB.ER.24H PO (10:02)
[2024-04-20] MEDS: Aspirin Enteric Coated 81 MG TABLET.DR PO (10:03)
[2024-04-20] MEDS: allopurinoL 100 MG TABLET PO (10:03)
[2024-04-20] MEDS: Famotidine 20 MG TABLET 40 MG PO (10:03)
[2024-04-20] MEDS: Gabapentin 100 MG CAPSULE PO ×2 (10:03→20:43)
[2024-04-20] MEDS: amLODIPine Besylate 5 MG TABLET PO (10:03)
[2024-04-20] MEDS: Clopidogrel Bisulfate 75 MG TABLET PO (10:03)
[2024-04-20] MEDS: Cyanocobalamin (Vitamin B-12) 1,000 MCG TABLET 1000 MCG PO (10:03)
--- NOTE | 2024-04-20 10:41 | P.PNIM_ITS ---
Subjective Subjective Date of Service: 04/20/24 Interval History: f/u on acute pyelonephritis has some left flank pain, no fever Physical Exam 2 Vital Signs: Vital Signs: Last Vital Signs Temp 97.5 F 04/20/24 03:41 Pulse 60 04/20/24 10:02 Resp 18 04/20/24 08:31 BP 157/67 H 04/20/24 10:03 Pulse Ox 97 04/20/24 03:41 O2 Del Method Nasal Cannula 04/20/24 03:41 O2 Flow Rate 2 04/20/24 03:41 BMI result Body Mass Index 23.9 Const: Other: General: AO X 3, no acute distress Resp: CTA bilateral CVS: S1,S2,RRR GI: +BS, NT, no distention Skin: No rash : mild left flank tenderness Neuro: motor grossly intact Psych: appropriate affect Objective Data Active Medications Acetaminophen (Acetaminophen 325 Mg Tablet) 975 mg PO Q6H PRN PRN Reason: Pain, Mild (Pain Scale 1-3), fever or headache Last Admin: 04/20/24 08:30 Dose: 975 mg Documented By: ARLEY Al Hydroxide/Mg Hydroxide (Magnesium Hydrox/Alum Hydrox 30 Ml Oral.Susp) 30 ml PO Q4H PRN PRN Reason: GI UPSET Allopurinol (Allopurinol 100 Mg Tablet) 100 mg PO DAILY [facility] Last Admin: 04/20/24 10:03 Dose: 100 mg Documented By: ARLEY Amlodipine Besylate (Amlodipine Besylate 5 Mg Tablet) 5 mg PO DAILY [facility]; Protocol Last Admin: 04/20/24 10:03 Dose: 5 mg Documented By: ARLEY Aspirin (Aspirin Enteric Coated 81 Mg Tablet.Dr) 81 mg PO DAILY [facility] Last Admin: 04/20/24 10:03 Dose: 81 mg Documented By: ARLEY Clopidogrel Bisulfate (Clopidogrel Bisulfate 75 Mg Tablet) 75 mg PO DAILY [facility] Last Admin: 04/20/24 10:03 Dose: 75 mg Documented By: ARLEY Cyanocobalamin (Cyanocobalamin (Vitamin B-12) 1,000 Mcg Tablet) 1,000 mcg PO DAILY [facility] Last Admin: 04/20/24 10:03 Dose: 1,000 mcg Documented By: ARLEY Donepezil HCl (Donepezil Hcl 5 Mg Tablet) 5 mg PO BEDTIME [facility] Famotidine (Famotidine 20 Mg Tablet) 40 mg PO DAILY [facility] Last Admin: 04/20/24 10:03 Dose: 40 mg Documented By: ARLEY Gabapentin (Gabapentin 100 Mg Capsule) 100 mg PO BID [facility] Last Admin: 04/20/24 10:03 Dose: 100 mg Documented By: ARLEY Glucose (Glucose Gel 15 Gm Gel..Gram.) 15 gm PO Q15M PRN; Protocol PRN Reason: per Hypoglycemia Standing Ord. Glycerin (Glycerin Adult Supp.Rect) 1 supp [place] DAILY PRN PRN Reason: Constipation Hydromorphone HCl (Hydromorphone Hcl 0.5 Mg/0.5 Ml Syringe) 0.5 mg IVPUSH Q4H PRN; Protocol PRN Reason: Pain, Severe (Pain Scale 7-10) Last Admin: 04/20/24 08:31 Dose: 0.5 mg Documented By: ARLEY Levofloxacin (Levaquin) 500 mg in 100 mls @ 100 mls/hr IV Q24H [facility] Dextrose (D10) 250 mls @ 750 mls/hr IV Q15M PRN; Protocol PRN Reason: per Hypoglycemia Standing Ord. Insulin Glargine (Insulin Glargine,Hum.Rec.Anlog 100 Unit/Ml 10 Ml Vial) 12 unit SUBCUT BEDTIME [facility] Insulin Human Lispro (Insulin Lispro 100 Unit/Ml 3 Ml Vial) 0 unit SUBCUT QIDACHS [facility]; Protocol Levothyroxine Sodium (Levothyroxine Sodium 100 Mcg Tablet) 100 mcg PO DAILY@0600 [facility] Loperamide HCl (Loperamide Hcl 2 Mg Capsule) 2 mg PO Q4H PRN PRN Reason: LOOSE STOOLS Magnesium Hydroxide (Milk Of Magnesia 30 Ml Oral.Susp) 30 ml PO DAILY PRN PRN Reason: Constipation Melatonin (Melatonin 3 Mg Tablet) 6 mg PO BEDTIME PRN PRN Reason: Insomnia Metoprolol Succinate (Metoprolol Succinate Er 50 Mg Tab.Er.24h) 50 mg PO DAILY [facility]; Protocol Last Admin: 04/20/24 10:02 Dose: 50 mg Documented By: ARLEY Multivitamins/Vitamin C (Multivitamin Tablet) 1 tab PO BID [facility] Last Admin: 04/20/24 10:02 Dose: 1 tab Documented By: ARLEY Non-Formulary Medication (Rosuvastatin) 20 mg PO BEDTIME [facility] Ondansetron HCl (Ondansetron Hcl 4 Mg/2 Ml Vial) 4 mg IVPUSH Q8H PRN PRN Reason: Nausea and Vomiting Phenazopyridine HCl (Phenazopyridine Hcl 100 Mg Tablet) 100 mg PO TIDWM [facility] Polyethylene Glycol (Polyethylene Glycol 3350 17 Gm Powd.Pack) 17 gm PO BID PRN PRN Reason: constipation Pyridoxine HCl (Pyridoxine Hcl (Vitamin B6) 50 Mg Tablet) 100 mg PO DAILY [facility] Last Admin: 04/20/24 10:02 Dose: 100 mg Documented By: ARLEY Senna/Docusate Sodium (Sennosides/Docusate Sodium Tablet) 2 tab PO BID [facility] Last Admin: 04/20/24 08:30 Dose: 2 tab Documented By: ARLEY Senna/Docusate Sodium (Sennosides/Docusate Sodium Tablet) 2 tab PO BID [facility] Last Admin: 04/20/24 10:03 Dose: 2 tab Documented By: ARLEY Sodium Chloride (0.9 % Sodium Chloride Flush 3 Ml Syringe) 3 ml IVFLUSH QSHIFT [facility] Last Admin: 04/20/24 08:31 Dose: 3 ml Documented By: ARLEY Vitamin D (Cholecalciferol (Vitamin D3) 25 Mcg Tablet) 125 mcg PO DAILY [facility] Labs 04/20/24 05:34 04/20/24 05:34 Labs: Laboratory Results - last 24 hr 04/19/24 04/19/24 04/19/24 16:36 18:54 19:57 MCV 90.6 MCH 28.3 MCHC 31.3 RDW 16.4 H Plt Count 198 MPV 9.5 Immature Gran % (Auto) 0.3 Neut % (Auto) 66.6 Lymph % (Auto) 23.3 [place] % (Auto) 7.1 Eos % (Auto) 1.9 Baso % (Auto) 0.8 Lymph # (Auto) 1.9 [place] # (Auto) 0.6 Eos # (Auto) 0.2 Baso # (Auto) 0.1 Abs Immat Gran (auto) 0.02 Absolute Neuts (auto) 5.3 Absolute Nucleated RBC 0.000 Nucleated RBC % (auto) 0.0 Anion Gap 16 Estim Creat Clear Calc 46.3 Estimated GFR > 60 Random Glucose 155 H Lactic Acid 0.7 Calcium 9.5 Magnesium 2.0 Total Bilirubin 0.3 AST 20 ALT 9 Alkaline Phosphatase 89 Total Protein 6.5 Albumin 3.6 Urine Color [place] A Urine Appearance Turbid Urine pH 6.0 Ur Specific [place] >= 1.030 H Urine Protein 100 (2+) H Urine Glucose (UA) Negative Urine Ketones Negative Urine Blood Large (3+) H Urine Nitrite Positive H Ur Leukocyte Esterase Moderate (2+) H Urine RBC >20 H Urine WBC 6-10 H Ur Squamous Epith Cells 0-2 Urine Bacteria None Seen Hyaline Casts 0-2 04/20/24 05:34 MCV 91.5 MCH 28.5 MCHC 31.2 RDW 16.3 H Plt Count 182 MPV 9.7 Immature Gran % (Auto) 0.2 Neut % (Auto) 68.5 Lymph % (Auto) 21.6 [place] % (Auto) 7.1 Eos % (Auto) 2.0 Baso % (Auto) 0.6 Lymph # (Auto) 1.8 [place] # (Auto) 0.6 Eos # (Auto) 0.2 Baso # (Auto) 0.1 Abs Immat Gran (auto) 0.02 Absolute Neuts (auto) 5.6 Absolute Nucleated RBC 0.000 Nucleated RBC % (auto) 0.0 Anion Gap 14 Estim Creat Clear Calc 53.0 Estimated GFR > 60 Random Glucose 96 Lactic Acid Calcium 8.6 D Magnesium Total Bilirubin AST ALT Alkaline Phosphatase Total Protein Albumin Urine Color Urine Appearance Urine pH Ur Specific [place] Urine Protein Urine Glucose (UA) Urine Ketones Urine Blood Urine Nitrite Ur Leukocyte Esterase Urine RBC Urine WBC Ur Squamous Epith Cells Urine Bacteria Hyaline Casts Microbiology Microbiology Results: Microbiology 04/19/24 18:54 Urine Culture - Preliminary Urine clean catch - Clean Catch Midstream No growth to date. Assessment and Plan (1) Pyelonephritis: Status: Acute Plan 78/F who recently had reeteral stent inseted and now with acute pyelonephritis Acute pyelonephritis following left ureteral stent insertion on April [address] Ernst. IV Levaquin follow culture urology consult mild hypernatremia; resolved gout, continue allopurinol. GERD, continue famotidine. essential hypertension, continue lisinopril, amlodipine, and metoprolol. hypothyroidism, continue levothyroxine. coronary artery disease, continue Plavix and aspirin. dementia, hold donepezil due to the risk of QT interval prolongation when combined with levofloxacin. hyperlipidemia, continue the statin DVT prophylaxis heparin full code need for inpt: management of acute pyelonephritis in setting of recent stent placement Quality Stroke Does the patient have a stroke diagnosis?: No VTE Prior VTE?: No VTE Risk Level:: Medical - moderate - high VTE Device Contraindication: N/A - Device Ordered VTE Drug Contraindication: Treatment Not Indicated
[2024-04-20] MEDS: Insulin Lispro 100 UNIT/ML 3 ML VIAL SUBCUT ×2 (11:43→20:57)
[2024-04-20] MEDS: Heparin Sodium,Porcine 5,000 UNIT/ML VIAL 5000 UNIT SUBCUT ×2 (11:43→20:43)
[2024-04-20] MEDS: Levothyroxine Sodium 100 MCG TABLET PO (11:43)
[2024-04-20] MEDS: Phenazopyridine HCL 100 MG TABLET PO (12:29)
[2024-04-20 13:01] LABS: Glucose, Whole Blood 185 mg/dL (60-115)
[2024-04-20 16:51] LABS: Glucose, Whole Blood 150 mg/dL (60-115)
[2024-04-20] MEDS: Melatonin 3 MG TABLET 6 MG PO (20:43)
[2024-04-20] MEDS: Donepezil HCl 5 MG TABLET PO (20:43)
[2024-04-20] MEDS: levoFLOXacin/D5W 500 MG/100 ML PIGGYBACK 100 MG IV (20:43)
[2024-04-20 20:50] LABS: Glucose, Whole Blood 167 mg/dL (60-115)
[2024-04-20] MEDS: Insulin Glargine,Hum.rec.anlog 100 UNIT/ML 10 ML VIAL 12 UNIT SUBCUT (20:57)
[2024-04-21] VITALS (10 sets, daily range): BP systolic 112–161; BP diastolic 53–67; PULSE 60–61; RESP 12–18; TEMP 36.1–37.1; O2SAT 93–97
[2024-04-21] MEDS: HYDROmorphone HCl 0.5 MG/0.5 ML SYRINGE IVPUSH ×4 (04:11→20:11)
[2024-04-21] MEDS: Levothyroxine Sodium 100 MCG TABLET PO (05:43)
[2024-04-21 07:44] LABS: Glucose, Whole Blood 111 mg/dL (60-115)
[2024-04-21] MEDS: Heparin Sodium,Porcine 5,000 UNIT/ML VIAL 5000 UNIT SUBCUT ×2 (08:42→20:11)
[2024-04-21] MEDS: 0.9 % Sodium Chloride Flush 3 ML SYRINGE IVFLUSH ×2 (08:43→15:37)
[2024-04-21] MEDS: Multivitamin TABLET 1 TAB PO ×2 (08:45→20:11)
[2024-04-21] MEDS: amLODIPine Besylate 5 MG TABLET PO (08:46)
[2024-04-21] MEDS: Sennosides/Docusate Sodium TABLET 2 TAB PO ×2 (08:48→20:11)
[2024-04-21] MEDS: Pyridoxine HCl (Vitamin B6) 50 MG TABLET 100 MG PO (08:48)
[2024-04-21] MEDS: Cyanocobalamin (Vitamin B-12) 1,000 MCG TABLET 1000 MCG PO (08:49)
[2024-04-21] MEDS: Cholecalciferol (Vitamin D3) 25 MCG TABLET 125 MCG PO (08:49)
[2024-04-21] MEDS: Famotidine 20 MG TABLET 40 MG PO (08:49)
[2024-04-21] MEDS: Phenazopyridine HCL 100 MG TABLET PO ×3 (08:49→17:02)
[2024-04-21] MEDS: Clopidogrel Bisulfate 75 MG TABLET PO (08:49)
[2024-04-21] MEDS: Metoprolol Succinate ER 50 MG TAB.ER.24H PO (08:50)
[2024-04-21] MEDS: Gabapentin 100 MG CAPSULE PO ×2 (08:50→20:11)
[2024-04-21] MEDS: Aspirin Enteric Coated 81 MG TABLET.DR PO (08:51)
[2024-04-21] MEDS: allopurinoL 100 MG TABLET PO (08:51)
[2024-04-21 11:47] LABS: Glucose, Whole Blood 130 mg/dL (60-115)
--- NOTE | 2024-04-21 12:24 | PM.UROCN ---
History of Present Illness Consult details Consult date: 04/21/24 Narrative: [place] is an 78-year-old female with history of bilateral renal stones. The patient was recently admitted for gross hematuria left obstructing ureteral stone. Left ureteral stent was placed at that time. The patient was admitted she has had complaints of left flank pain, which is likely secondary to the stent. She is being treated for UTI. CTAP bilateral ureteral stones stent is in proper positioning no hydronephrosis. Review of Systems Review of Systems: Yes all other systems are reviewed and are negative Constitutional: Constitutional: Reports no additional constitutional complaints Eyes: Eyes: Reports no additional eye complaints ENT: Reports system reviewed and no additional complaints, except as documented Cardiovascular: Cardiovascular: Reports no additional cardiovascular complaints Respiratory: Respiratory: Reports no additional respiratory complaints Gastrointestinal: Gastrointestinal: Reports no additional gastrointestinal complaints Genitourinary: Genitourinary: Reports as per HPI Musculoskeletal: Musculoskeletal: Reports no additional musculoskeletal complaints Integumentary/Breasts: Skin/Breast: Reports system reviewed and no additional complaints, except as docu Neurologic: Reports system reviewed and no additional complaints, except as documented Psychiatric: Psychiatric: Reports no additional psychiatric complaints Endocrine: Endocrine: Reports no additional endocrine complaints Hematologic/Lymphatic: Hematologic/Lymphatic: Reports no additional hematologic/lymphatic complaints Allergic/Immunologic: Allergic/Immunologic: Reports no additional allergic/immunologic complaints [facility] Past Medical History Medical History Annual physical exam HTN (hypertension) IDDM (insulin dependent diabetes mellitus) Diverticulitis Nephrolithiasis Cataract Hyperlipidemia Pacemaker Myocardial infarct Macular degeneration Nephrolithiasis Dementia Frequent UTI HTN (hypertension) Hypothyroid Diabetes Family History Family History Father Heart attack Mother Heart problem Heart attack Substance use disorder Surgical History Surgical History Status post lumbar spine surgery for decompression of spinal cord H/O left knee surgery Social History Social History Household Members: Other Household Members Other:: lives in assisted living Housing: Assisted Living Facility Housing Other:: [facility] Do you presently have visiting nurse or other home services: No Alcohol intake: never Comment: pt will get oob without assistance. Patient Tobacco Use Status: Never used Tobacco Tobacco use type: Cigarette Cigarettes Per Day: 10.0 Years Smoked: 54 e-Cigarette/Vaping Use: Never Used Second Hand Smoke Exposure: No Advance Directives Date on File: 11/05/20 service: No Current occupational status: retired Cognitive needs: No Hearing needs: No Vision needs: Yes Meds Allergies Allergy/AdvReac Type Severity Reaction Status Date / Time atorvastatin Allergy Unknown pt does Verified 04/19/24 16:09 not know azithromycin Allergy Unknown pt does Verified 04/19/24 16:09 not know ceftriaxone Allergy Unknown pt does Verified 04/19/24 16:09 not know cephalexin Allergy Unknown pt does Verified 04/19/24 16:09 not know citalopram Allergy Unknown pt does Verified 04/19/24 16:09 not know levofloxacin Allergy Unknown pt does Verified 04/19/24 16:09 not know metformin Allergy Unknown pt does Verified 04/19/24 16:09 not know nitrofurantoin Allergy Unknown pt does Verified 04/19/24 16:09 not know oxycodone Allergy Unknown pt does Verified 04/19/24 16:09 not know penicillin V Allergy Unknown pt does Verified 04/19/24 16:09 not know pioglitazone Allergy Unknown pt does Verified 04/19/24 16:09 not know repaglinide Allergy Unknown pt does Verified 04/19/24 16:09 not know rosuvastatin [Crestor] Allergy Unknown pt does Verified 04/19/24 16:09 not know sertraline Allergy Unknown pt does Verified 04/19/24 16:09 not know simvastatin Allergy Unknown pt does Verified 04/19/24 16:09 not know sulfacetamide Allergy Unknown pt does Verified 04/19/24 16:09 not know aspirin Allergy Unknown Verified 04/19/24 16:09 Cefuroxime Sodium Allergy Unknown pt does Uncoded 04/14/24 18:20 not know Active Medications: Current Medications Acetaminophen (Acetaminophen 325 Mg Tablet) 975 mg PO Q6H PRN PRN Reason: Pain, Mild (Pain Scale 1-3), fever or headache Last Admin: 04/20/24 08:30 Dose: 975 mg Al Hydroxide/Mg Hydroxide (Magnesium Hydrox/Alum Hydrox 30 Ml Oral.Susp) 30 ml PO Q4H PRN PRN Reason: GI UPSET Allopurinol (Allopurinol 100 Mg Tablet) 100 mg PO DAILY [facility] Last Admin: 04/21/24 08:51 Dose: 100 mg Amlodipine Besylate (Amlodipine Besylate 5 Mg Tablet) 5 mg PO DAILY [facility]; Protocol Last Admin: 04/21/24 08:46 Dose: 5 mg Aspirin (Aspirin Enteric Coated 81 Mg Tablet.Dr) 81 mg PO DAILY [facility] Last Admin: 04/21/24 08:51 Dose: 81 mg Clopidogrel Bisulfate (Clopidogrel Bisulfate 75 Mg Tablet) 75 mg PO DAILY [facility] Last Admin: 04/21/24 08:49 Dose: 75 mg Cyanocobalamin (Cyanocobalamin (Vitamin B-12) 1,000 Mcg Tablet) 1,000 mcg PO DAILY [facility] Last Admin: 04/21/24 08:49 Dose: 1,000 mcg Donepezil HCl (Donepezil Hcl 5 Mg Tablet) 5 mg PO BEDTIME [facility] Last Admin: 04/20/24 20:43 Dose: 5 mg Famotidine (Famotidine 20 Mg Tablet) 40 mg PO DAILY [facility] Last Admin: 04/21/24 08:49 Dose: 40 mg Gabapentin (Gabapentin 100 Mg Capsule) 100 mg PO BID [facility] Last Admin: 04/21/24 08:50 Dose: 100 mg Glucose (Glucose Gel 15 Gm Gel..Gram.) 15 gm PO Q15M PRN; Protocol PRN Reason: per Hypoglycemia Standing Ord. Glycerin (Glycerin Adult Supp.Rect) 1 supp GA DAILY PRN PRN Reason: Constipation Heparin Sodium (Porcine) (Heparin Sodium,Porcine 5,000 Unit/Ml Vial) 5,000 unit SUBCUT BID [facility] Last Admin: 04/21/24 08:42 Dose: 5,000 unit Hydromorphone HCl (Hydromorphone Hcl 0.5 Mg/0.5 Ml Syringe) 0.5 mg IVPUSH Q4H PRN; Protocol PRN Reason: Pain, Severe (Pain Scale 7-10) Last Admin: 04/21/24 09:12 Dose: 0.5 mg Levofloxacin (Levaquin) 500 mg in 100 mls @ 100 mls/hr IV Q24H [facility] Last Infusion: 04/20/24 21:43 Dose: Infused Dextrose (D10) 250 mls @ 750 mls/hr IV Q15M PRN; Protocol PRN Reason: per Hypoglycemia Standing Ord. Insulin Glargine (Insulin Glargine,Hum.Rec.Anlog 100 Unit/Ml 10 Ml Vial) 12 unit SUBCUT BEDTIME [facility] Last Admin: 04/20/24 20:57 Dose: 12 unit Insulin Human Lispro (Insulin Lispro 100 Unit/Ml 3 Ml Vial) 0 unit SUBCUT QIDACHS [facility]; Protocol Last Admin: 04/21/24 07:58 Dose: Not Given Levothyroxine Sodium (Levothyroxine Sodium 100 Mcg Tablet) 100 mcg PO DAILY@0600 [facility] Last Admin: 04/21/24 05:43 Dose: 100 mcg Loperamide HCl (Loperamide Hcl 2 Mg Capsule) 2 mg PO Q4H PRN PRN Reason: LOOSE STOOLS Magnesium Hydroxide (Milk Of Magnesia 30 Ml Oral.Susp) 30 ml PO DAILY PRN PRN Reason: Constipation Melatonin (Melatonin 3 Mg Tablet) 6 mg PO BEDTIME PRN PRN Reason: Insomnia Last Admin: 04/20/24 20:43 Dose: 6 mg Metoprolol Succinate (Metoprolol Succinate Er 50 Mg Tab.Er.24h) 50 mg PO DAILY [facility]; Protocol Last Admin: 04/21/24 08:50 Dose: 50 mg Multivitamins/Vitamin C (Multivitamin Tablet) 1 tab PO BID [facility] Last Admin: 04/21/24 08:45 Dose: 1 tab Non-Formulary Medication (Rosuvastatin) 20 mg PO BEDTIME [facility] Ondansetron HCl (Ondansetron Hcl 4 Mg/2 Ml Vial) 4 mg IVPUSH Q8H PRN PRN Reason: Nausea and Vomiting Phenazopyridine HCl (Phenazopyridine Hcl 100 Mg Tablet) 100 mg PO TIDWM [facility] Last Admin: 04/21/24 08:49 Dose: 100 mg Polyethylene Glycol (Polyethylene Glycol 3350 17 Gm Powd.Pack) 17 gm PO BID PRN PRN Reason: constipation Pyridoxine HCl (Pyridoxine Hcl (Vitamin B6) 50 Mg Tablet) 100 mg PO DAILY [facility] Last Admin: 04/21/24 08:48 Dose: 100 mg Senna/Docusate Sodium (Sennosides/Docusate Sodium Tablet) 2 tab PO BID [facility] Last Admin: 04/21/24 08:48 Dose: 2 tab Sodium Chloride (0.9 % Sodium Chloride Flush 3 Ml Syringe) 3 ml IVFLUSH QSHIFT [facility] Last Admin: 04/21/24 08:43 Dose: 3 ml Vitamin D (Cholecalciferol (Vitamin D3) 25 Mcg Tablet) 125 mcg PO DAILY [facility] Last Admin: 04/21/24 08:49 Dose: 125 mcg Home Medications ?Medication ?Instructions ?Recorded ?Confirmed ?Last Taken ?Type lisinopril 40 mg tablet 40 mg PO DAILY 11/04/20 04/20/24 11/03/20 History levothyroxine 100 mcg tablet 100 mcg PO DAILY@0600 12/14/21 04/20/24 Unknown History rosuvastatin 20 mg tablet 20 mg PO BEDTIME 12/14/21 04/20/24 Unknown History acetaminophen 325 mg tablet 650 mg PO Q4H PRN Pain 04/16/24 04/20/24 Unknown History aluminum-mag hydroxide-simethicone 30 ml PO Q4H PRN GI UPSET 04/16/24 04/20/24 Unknown History 200 mg-200 mg-20 mg/5 mL oral susp (Mintox) glycerin (adult) 1 supp GA DAILY PRN Constipation 04/16/24 04/20/24 Unknown History loperamide 2 mg capsule 2 mg PO Q4H PRN LOOSE STOOLS 04/16/24 04/20/24 Unknown History magnesium hydroxide 400 mg/5 mL 30 ml PO DAILY PRN Constipation 04/16/24 04/20/24 Unknown History oral suspension (Milk of Magnesia) sennosides 8.6 mg-docusate sodium 2 tab PO BID 04/16/24 04/20/24 Unknown History 50 mg tablet (Stool Softener-Laxative) vitamins A,C,G-ucre-xeqfmt 2,148 1 tab PO BID 04/16/24 04/20/24 Unknown History mcg-113 mg-45 mg-17.4 mg tablet (PreserVision AREDS) Physical Exam Vital Signs: Vital Signs: Last Vital Signs Temp 98.1 F 04/21/24 12:01 Pulse 60 04/21/24 12:01 Resp 12 04/21/24 12:01 BP 152/67 H 04/21/24 12:01 Pulse Ox 94 04/21/24 12:01 O2 Del Method Room Air 04/21/24 12:01 O2 Flow Rate 2 04/21/24 07:45 BMI result Body Mass Index 25.8 Const: General: cooperative, healthy appearing and no acute distress Orientation/consciousness: patient oriented x3 HEENT: Head: Yes normal to inspection, Yes normocephalic and Yes atraumatic Eyes: Conjunctivae: conjunctivae normal Neck: Neck: Yes normal visual inspection and Yes trachea midline Chest: Chest palpation & inspection: normal inspection of the chest Resp: Effort & Inspection: normal respiratory effort Cardio: Rate: regular rate GI: Inspection: Yes normal to inspection Palpation (GI): Soft to palpation Neuro: General: patient oriented x3 Psych: Appearance: grossly normal Results Labs 04/20/24 05:34 04/20/24 05:34 Labs: Abnormal lab results 04/20/24 04/20/24 04/20/24 Range/Units 11:30 16:40 20:46 POC Glucose 185 H 150 H 167 H (60-115) mg/dL 04/21/24 Range/Units 11:30 POC Glucose 130 H (60-115) mg/dL Urine 04/19/24 Range/Units 18:54 Urine Color [place] A Urine Appearance Turbid Urine pH 6.0 (5.0-9.0) Ur Specific [place] >= 1.030 H (1.005-1.025) Urine Protein 100 (2+) H (Neg-Trace) mg/dL Urine Glucose (UA) Negative (Negative) mg/dL Imaging Abdomen CT scan report/results: report reviewed and image reviewed CT scan - pelvis: report reviewed and image reviewed Additional studies: Date of Service: 04/19/24 CT ABDOMEN AND PELVIS WITH CONTRAST CLINICAL INFORMATION: Pain status post ureteral stent placement. COMPARISON: CT scans dating between April 14, 2024 and August 15, 2020. TECHNIQUE: Multidetector volumetric images were obtained from the superior aspect of the liver through the pubic symphysis following administration 85 mL of Omnipaque 350 intravenous contrast. Sagittal and coronal reformatted images were obtained on the technologist's workstation. Oral contrast: No This CT examination was performed using dose optimization techniques as appropriate, variously including the following: *Automated exposure control *Adjustment of mA and/or kV according to patient size (this includes techniques or standardized protocols for targeted exams where dose is matched to indication/reason for exam; i.e. extremities or head) *Use of iterative reconstruction technique DLP: 532 mGy-cm FINDINGS: LUNG BASES: The lung bases appear clear, with no evidence of inflammation or nodules. Severe coronary arterial calcification. Heart normal in size. Mild calcification of the aortic valve. Tips of pulse generator device leads in right atrium and right ventricular apex. LIVER, GALLBLADDER, AND BILIARY TREE: Subcentimeter, segment 8 benign simple cyst or hemangioma (image 20, series 3), unchanged. The liver otherwise appears unremarkable in size, shape, and attenuation. No particularly suspicious focal hepatic lesion or biliary ductal dilatation is appreciated. Unremarkable appearance of the gallbladder. PANCREAS: Unremarkable SPLEEN: Unremarkable ADRENAL GLANDS: Bilateral adrenal thickening, unchanged. KIDNEYS AND URETERS/BLADDER: Approximately 0.4 cm or less, bilateral, nonobstructing renal collecting system stones, left more than right. The 6 mm left UVJ stone seen on CT scan from 5 days earlier is no longer appreciated at its previous location. The proximal loop of a new left double-J ureteral stent lies within the left renal pelvis, and the distal loop lies within the urinary bladder lumen. An approximately 0.7 cm right renal collecting system stone now lies at the right UPJ. No hydronephrosis or hydroureter is appreciated on either side. Small bilateral renal cortical scars. Trace air in the nondependent portion of the urinary bladder, likely iatrogenic. GASTROINTESTINAL TRACT: Focal loop of dilated right upper quadrant small bowel containing an air-fluid level measuring up to approximately 5 cm in diameter (for example, image 38, series 3), new compared with 5 days earlier. No evidence of significant bowel wall thickening or adjacent inflammation. Moderate amount of stool within the rectal vault, similar to mildly improved compared with 5 days earlier. Colonic diverticula without evidence of diverticulitis. Normal-appearing distal ileum. No evidence of appendicitis. ABDOMINAL WALL: No significant hernia is appreciated. LYMPH NODES: No evidence of adenopathy by size criteria. VASCULAR: Extensive calcific atherosclerosis involving the abdominal aorta, iliac arteries, and visceral arteries. Fusiform abdominal aortic aneurysm measuring up to approximately 3.8 cm in diameter and containing a small amount of mural thrombus. 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 PELVIC VISCERA: Status post hysterectomy. OSSEOUS STRUCTURES: Decreased bone mineral density. Mild osteoarthritis of the hips. Right proximal femoral bone island. IMPRESSION: Approximately 0.4 cm or less, bilateral, nonobstructing renal collecting system stones, left more than right. The 6 mm left UVJ stone seen on CT scan from 5 days earlier is no longer appreciated at its previous location. The proximal loop of a new left double-J ureteral stent lies within the left renal pelvis, and the distal loop lies within the urinary bladder lumen. An approximately 0.7 cm right renal collecting system stone now lies at the right UPJ. No hydronephrosis or hydroureter is appreciated on either side. Focal loop of dilated right upper quadrant small bowel containing an air-fluid level measuring up to approximately 5 cm in diameter, new compared with 5 days earlier. No evidence of significant bowel wall thickening or adjacent inflammation. Moderate amount of stool within the rectal vault, similar to mildly improved compared with 5 days earlier. Assessment and Plan (1) Hematuria: Status: Acute (2) Left ureteral calculus: Status: Acute (3) Bilateral kidney stones: Status: Acute Plan Cystoscopy Left ureteral stent exchange, ureteroscopy, laser lithotripsy on Sunday NPO at [place] Procedures Date of Service Date of Service: 04/22/24
--- NOTE | 2024-04-21 12:30 | P.PNIM_ITS ---
Subjective Subjective Date of Service: 04/21/24 Interval History: f/u on acute pyelonephritis She has persistent pain but no fever Physical Exam 2 Vital Signs: Vital Signs: Last Vital Signs Temp 98.1 F 04/21/24 12:01 Pulse 60 04/21/24 12:01 Resp 12 04/21/24 12:01 BP 152/67 H 04/21/24 12:01 Pulse Ox 94 04/21/24 12:01 O2 Del Method Room Air 04/21/24 12:01 O2 Flow Rate 2 04/21/24 07:45 BMI result Body Mass Index 25.8 Const: Other: General: AO X 3, no acute distress Resp: CTA bilateral CVS: S1,S2,RRR GI: +BS, NT, no distention gu: mild left flank tenderness Skin: No rash Neuro: motor grossly intact Psych: appropriate affect Objective Data Active Medications Acetaminophen (Acetaminophen 325 Mg Tablet) 975 mg PO Q6H PRN PRN Reason: Pain, Mild (Pain Scale 1-3), fever or headache Last Admin: 04/20/24 08:30 Dose: 975 mg Al Hydroxide/Mg Hydroxide (Magnesium Hydrox/Alum Hydrox 30 Ml Oral.Susp) 30 ml PO Q4H PRN PRN Reason: GI UPSET Allopurinol (Allopurinol 100 Mg Tablet) 100 mg PO DAILY [facility] Last Admin: 04/21/24 08:51 Dose: 100 mg Documented By: ORTIZ Amlodipine Besylate (Amlodipine Besylate 5 Mg Tablet) 5 mg PO DAILY [facility]; Protocol Last Admin: 04/21/24 08:46 Dose: 5 mg Documented By: ORTIZ Aspirin (Aspirin Enteric Coated 81 Mg Tablet.) 81 mg PO DAILY [facility] Last Admin: 04/21/24 08:51 Dose: 81 mg Documented By: ORTIZ Clopidogrel Bisulfate (Clopidogrel Bisulfate 75 Mg Tablet) 75 mg PO DAILY [facility] Last Admin: 04/21/24 08:49 Dose: 75 mg Documented By: ORTIZ Cyanocobalamin (Cyanocobalamin (Vitamin B-12) 1,000 Mcg Tablet) 1,000 mcg PO DAILY [facility] Last Admin: 04/21/24 08:49 Dose: 1,000 mcg Documented By: ORTIZ Donepezil HCl (Donepezil Hcl 5 Mg Tablet) 5 mg PO BEDTIME [facility] Last Admin: 04/20/24 20:43 Dose: 5 mg Documented By: JOSE F Famotidine (Famotidine 20 Mg Tablet) 40 mg PO DAILY [facility] Last Admin: 04/21/24 08:49 Dose: 40 mg Documented By: ORTIZ Gabapentin (Gabapentin 100 Mg Capsule) 100 mg PO BID [facility] Last Admin: 04/21/24 08:50 Dose: 100 mg Documented By: ORTIZ Glucose (Glucose Gel 15 Gm Gel..Gram.) 15 gm PO Q15M PRN; Protocol PRN Reason: per Hypoglycemia Standing Ord. Glycerin (Glycerin Adult Supp.Rect) 1 supp IA DAILY PRN PRN Reason: Constipation Heparin Sodium (Porcine) (Heparin Sodium,Porcine 5,000 Unit/Ml Vial) 5,000 unit SUBCUT BID [facility] Last Admin: 04/21/24 08:42 Dose: 5,000 unit Documented By: ORTIZ Hydromorphone HCl (Hydromorphone Hcl 0.5 Mg/0.5 Ml Syringe) 0.5 mg IVPUSH Q4H PRN; Protocol PRN Reason: Pain, Severe (Pain Scale 7-10) Last Admin: 04/21/24 09:12 Dose: 0.5 mg Documented By: ORTIZ Levofloxacin (Levaquin) 500 mg in 100 mls @ 100 mls/hr IV Q24H [facility] Last Infusion: 04/20/24 21:43 Dose: Infused Documented By: KEIKO Dextrose (D10) 250 mls @ 750 mls/hr IV Q15M PRN; Protocol PRN Reason: per Hypoglycemia Standing Ord. Insulin Glargine (Insulin Glargine,Hum.Rec.Anlog 100 Unit/Ml 10 Ml Vial) 12 unit SUBCUT BEDTIME [facility] Last Admin: 04/20/24 20:57 Dose: 12 unit Documented By: JOSE F Insulin Human Lispro (Insulin Lispro 100 Unit/Ml 3 Ml Vial) 0 unit SUBCUT QIDACHS [facility]; Protocol Last Admin: 04/21/24 12:24 Dose: Not Given Documented By: ORTIZ Non-Admin Reason: No Insulin Coverage Levothyroxine Sodium (Levothyroxine Sodium 100 Mcg Tablet) 100 mcg PO DAILY@0600 [facility] Last Admin: 04/21/24 05:43 Dose: 100 mcg Documented By: KATHERYNT Loperamide HCl (Loperamide Hcl 2 Mg Capsule) 2 mg PO Q4H PRN PRN Reason: LOOSE STOOLS Magnesium Hydroxide (Milk Of Magnesia 30 Ml Oral.Susp) 30 ml PO DAILY PRN PRN Reason: Constipation Melatonin (Melatonin 3 Mg Tablet) 6 mg PO BEDTIME PRN PRN Reason: Insomnia Last Admin: 04/20/24 20:43 Dose: 6 mg Documented By: JOSE F Metoprolol Succinate (Metoprolol Succinate Er 50 Mg Tab.Er.24h) 50 mg PO DAILY [facility]; Protocol Last Admin: 04/21/24 08:50 Dose: 50 mg Documented By: ORTIZ Multivitamins/Vitamin C (Multivitamin Tablet) 1 tab PO BID [facility] Last Admin: 04/21/24 08:45 Dose: 1 tab Documented By: ORTIZ Non-Formulary Medication (Rosuvastatin) 20 mg PO BEDTIME [facility] Ondansetron HCl (Ondansetron Hcl 4 Mg/2 Ml Vial) 4 mg IVPUSH Q8H PRN PRN Reason: Nausea and Vomiting Phenazopyridine HCl (Phenazopyridine Hcl 100 Mg Tablet) 100 mg PO TIDWM [facility] Last Admin: 04/21/24 12:29 Dose: 100 mg Documented By: ORTIZ Polyethylene Glycol (Polyethylene Glycol 3350 17 Gm Powd.Pack) 17 gm PO BID PRN PRN Reason: constipation Pyridoxine HCl (Pyridoxine Hcl (Vitamin B6) 50 Mg Tablet) 100 mg PO DAILY [facility] Last Admin: 04/21/24 08:48 Dose: 100 mg Documented By: ORTIZ Senna/Docusate Sodium (Sennosides/Docusate Sodium Tablet) 2 tab PO BID [facility] Last Admin: 04/21/24 08:48 Dose: 2 tab Documented By: ORTIZ Sodium Chloride (0.9 % Sodium Chloride Flush 3 Ml Syringe) [facility] Last Admin: 04/21/24 08:43 Dose: 3 ml Documented By: ORTIZ Vitamin D (Cholecalciferol (Vitamin D3) 25 Mcg Tablet) 125 mcg PO DAILY [facility] Last Admin: 04/21/24 08:49 Dose: 125 mcg Documented By: ORTIZ Labs 04/20/24 05:34 04/20/24 05:34 Labs: Laboratory Results - last 24 hr 04/20/24 04/20/24 04/20/24 11:30 16:40 20:46 POC Glucose 185 H 150 H 167 H 04/21/24 04/21/24 07:28 11:30 POC Glucose 111 130 H Microbiology Microbiology Results: Microbiology 04/19/24 18:54 Urine Culture - Final Urine clean catch - Clean Catch Midstream 04/19/24 20:10 Blood Culture - Preliminary Blood - Venous No growth after 24 hours. 04/19/24 19:56 Blood Culture - Preliminary Blood - Venous No growth after 24 hours. Assessment and Plan (1) Pyelonephritis: Status: Acute Plan 78/F who recently had reeteral stent inseted and now with acute pyelonephritis Acute pyelonephritis following left ureteral stent insertion on April [address] Ernst. IV Levaquin follow culture urology consult--for cystoscopy and right ureteral stent tomorrow mild hypernatremia; resolved gout, continue allopurinol. GERD, continue famotidine. essential hypertension, continue lisinopril, amlodipine, and metoprolol. hypothyroidism, continue levothyroxine. coronary artery disease, continue Plavix and aspirin. dementia, hold donepezil due to the risk of QT interval prolongation when combined with levofloxacin. hyperlipidemia, continue the statin DVT prophylaxis heparin full code need for inpt: management of acute pyelonephritis in setting of recent stent placement Quality Stroke Does the patient have a stroke diagnosis?: No VTE Prior VTE?: No VTE Risk Level:: Medical - moderate - high VTE Device Contraindication: N/A - Device Ordered VTE Drug Contraindication: Treatment Not Indicated
--- NOTE | 2024-04-21 16:07 | MHC.CM.PN ---
CM SPOKE TO PTS HCP, THUAN HERNANDEZ, SHE CONFIRMS PT IS A RESIDENT OF [facility] SHE SAYS PT IS MOSTLY INDEPENDENT BUT REQUIRES SOME CUEING ESPECIALLY FOR SHOWERING SHE USES NO DME AND HAS NO OUTSIDE SERVICES COPY OF HCP OBTAINED FROM [facility], NOW ON FILE PCP HUBERT SARABIA IMM DELIVERED, COPY AT BEDSIDE DCP: RETURN TO [facility] DAUGHTER MAY BE ABLE TO TRANSPORT, OTHERWISE PT WILL NEED ASSISTANCE
[2024-04-21 16:40] LABS: Glucose, Whole Blood 139 mg/dL (60-115)
[2024-04-21] MEDS: levoFLOXacin/D5W 500 MG/100 ML PIGGYBACK 100 MG IV (20:07)
[2024-04-21] MEDS: Donepezil HCl 5 MG TABLET PO (20:11)
[2024-04-21 20:22] LABS: Glucose, Whole Blood 182 mg/dL (60-115)
[2024-04-21] MEDS: Melatonin 3 MG TABLET 6 MG PO (21:00)
[2024-04-21] MEDS: Insulin Glargine,Hum.rec.anlog 100 UNIT/ML 10 ML VIAL 12 UNIT SUBCUT (21:00)
[2024-04-21] MEDS: Insulin Lispro 100 UNIT/ML 3 ML VIAL SUBCUT (21:00)
[2024-04-22] VITALS (12 sets, daily range): BP systolic 123–187; BP diastolic 58–83; PULSE 59–62; RESP 10–18; TEMP 36–36.5; O2SAT 91–97
[2024-04-22] MEDS: 0.9 % Sodium Chloride Flush 3 ML SYRINGE IVFLUSH ×4 (00:35→21:19)
[2024-04-22] MEDS: Levothyroxine Sodium 100 MCG TABLET PO (06:20)
[2024-04-22] MEDS: HYDROmorphone HCl 0.5 MG/0.5 ML SYRINGE IVPUSH ×3 (07:13→16:13)
[2024-04-22 07:17] LABS: Glucose, Whole Blood 106 mg/dL (60-115)
--- NOTE | 2024-04-22 07:37 | HO.ANESPROP2 ---
HPI - Anesthesia Eval Consult details Narrative: 78 yo female patient for Cystoscopy, Left ureteroscopy, laser ablation and stent exchange Left ureter PMFSH Active Problems Active Problems: All Active Problems Bilateral kidney stones (Acute) Hypernatremia (Acute) Urinary tract infection (Acute) Obstruction of right ureteropelvic junction (UPJ) due to stone (Acute) Hematuria (Acute) Preop cardiovascular exam (Acute) Prolonged QT interval (Acute) Constipation (Acute) Left ureteral calculus (Acute) Flank pain (Acute) Pyelonephritis (Acute) Excessive cerumen in right ear canal (Acute) Balance problem (Acute) Hearing loss (Acute) UTI (urinary tract infection) (Acute) AAA (abdominal aortic aneurysm) (Acute)- fusiform infra-renal 4.1 cm Weakness (Acute) Annual physical exam (Acute) GERD (gastroesophageal reflux disease) (Acute) IDDM (insulin dependent diabetes mellitus) (Acute) Diverticulitis (Acute) Nephrolithiasis (Acute) HX: anticoagulation (Acute) Pacemaker (Acute) Nephrolithiasis (Acute). Denies recent chest pain Myocardial infarct (Acute) Macular degeneration (Acute) Frequent UTI (Acute) Cataract (Acute) Dementia (Acute) Hypothyroid (Acute) HTN (hypertension) (Acute) Diabetes (Acute) Hyperlipidemia (Acute) Smoker till just before admission(per nurse) Past Medical History Medical History Annual physical exam HTN (hypertension) IDDM (insulin dependent diabetes mellitus) Diverticulitis Nephrolithiasis Cataract Hyperlipidemia Pacemaker Myocardial infarct Macular degeneration Nephrolithiasis Dementia Frequent UTI HTN (hypertension) Hypothyroid Diabetes Family History Family History Father Heart attack Mother Heart problem Heart attack Substance use disorder Family history of problems with anesthesia: No Surgical History Surgical History Status post lumbar spine surgery for decompression of spinal cord H/O left knee surgery History of Problems with Anesthesia: No Social History Social History Household Members: Other Household Members Other:: lives in assisted living Housing: Assisted Living Facility Housing Other:: [facility] Do you presently have visiting nurse or other home services: No Alcohol intake: never Comment: pt will get oob without assistance. Patient Tobacco Use Status: Never used Tobacco Tobacco use type: Cigarette Cigarettes Per Day: 10.0 Years Smoked: 54 e-Cigarette/Vaping Use: Never Used Second Hand Smoke Exposure: No Advance Directives Date on File: 11/05/20 service: No Current occupational status: retired Cognitive needs: No Hearing needs: No Vision needs: Yes Meds Allergies Allergy/AdvReac Type Severity Reaction Status Date / Time atorvastatin Allergy Unknown pt does Verified 04/19/24 16:09 not know azithromycin Allergy Unknown pt does Verified 04/19/24 16:09 not know ceftriaxone Allergy Unknown pt does Verified 04/19/24 16:09 not know cephalexin Allergy Unknown pt does Verified 04/19/24 16:09 not know citalopram Allergy Unknown pt does Verified 04/19/24 16:09 not know levofloxacin Allergy Unknown pt does Verified 04/19/24 16:09 not know metformin Allergy Unknown pt does Verified 04/19/24 16:09 not know nitrofurantoin Allergy Unknown pt does Verified 04/19/24 16:09 not know oxycodone Allergy Unknown pt does Verified 04/19/24 16:09 not know penicillin V Allergy Unknown pt does Verified 04/19/24 16:09 not know pioglitazone Allergy Unknown pt does Verified 04/19/24 16:09 not know repaglinide Allergy Unknown pt does Verified 04/19/24 16:09 not know rosuvastatin [Crestor] Allergy Unknown pt does Verified 04/19/24 16:09 not know sertraline Allergy Unknown pt does Verified 04/19/24 16:09 not know simvastatin Allergy Unknown pt does Verified 04/19/24 16:09 not know sulfacetamide Allergy Unknown pt does Verified 04/19/24 16:09 not know aspirin Allergy Unknown Verified 04/19/24 16:09 Cefuroxime Sodium Allergy Unknown pt does Uncoded 04/14/24 18:20 not know Active Medications: Current Medications Acetaminophen (Acetaminophen 325 Mg Tablet) 975 mg PO Q6H PRN PRN Reason: Pain, Mild (Pain Scale 1-3), fever or headache Last Admin: 04/20/24 08:30 Dose: 975 mg Al Hydroxide/Mg Hydroxide (Magnesium Hydrox/Alum Hydrox 30 Ml Oral.Susp) 30 ml PO Q4H PRN PRN Reason: GI UPSET Allopurinol (Allopurinol 100 Mg Tablet) 100 mg PO DAILY [facility] Last Admin: 04/21/24 08:51 Dose: 100 mg Amlodipine Besylate (Amlodipine Besylate 5 Mg Tablet) 5 mg PO DAILY [facility]; Protocol Last Admin: 04/21/24 08:46 Dose: 5 mg Aspirin (Aspirin Enteric Coated 81 Mg Tablet.Dr) 81 mg PO DAILY [facility] Last Admin: 04/21/24 08:51 Dose: 81 mg Clopidogrel Bisulfate (Clopidogrel Bisulfate 75 Mg Tablet) 75 mg PO DAILY [facility] Last Admin: 04/21/24 08:49 Dose: 75 mg Cyanocobalamin (Cyanocobalamin (Vitamin B-12) 1,000 Mcg Tablet) 1,000 mcg PO DAILY [facility] Last Admin: 04/21/24 08:49 Dose: 1,000 mcg Donepezil HCl (Donepezil Hcl 5 Mg Tablet) 5 mg PO BEDTIME [facility] Last Admin: 04/21/24 20:11 Dose: 5 mg Famotidine (Famotidine 20 Mg Tablet) 40 mg PO DAILY [facility] Last Admin: 04/21/24 08:49 Dose: 40 mg Gabapentin (Gabapentin 100 Mg Capsule) 100 mg PO BID [facility] Last Admin: 04/21/24 20:11 Dose: 100 mg Glucose (Glucose Gel 15 Gm Gel..Gram.) 15 gm PO Q15M PRN; Protocol PRN Reason: per Hypoglycemia Standing Ord. Glycerin (Glycerin Adult Supp.Rect) 1 supp [place] DAILY PRN PRN Reason: Constipation Heparin Sodium (Porcine) (Heparin Sodium,Porcine 5,000 Unit/Ml Vial) 5,000 unit SUBCUT BID [facility] Last Admin: 04/21/24 20:11 Dose: 5,000 unit Hydromorphone HCl (Hydromorphone Hcl 0.5 Mg/0.5 Ml Syringe) 0.5 mg IVPUSH Q4H PRN; Protocol PRN Reason: Pain, Severe (Pain Scale 7-10) Last Admin: 04/22/24 07:13 Dose: 0.5 mg Levofloxacin (Levaquin) 500 mg in 100 mls @ 100 mls/hr IV Q24H [facility] Last Infusion: 04/21/24 21:10 Dose: Infused Dextrose (D10) 250 mls @ 750 mls/hr IV Q15M PRN; Protocol PRN Reason: per Hypoglycemia Standing Ord. Insulin Glargine (Insulin Glargine,Hum.Rec.Anlog 100 Unit/Ml 10 Ml Vial) 12 unit SUBCUT BEDTIME [facility] Last Admin: 04/21/24 21:00 Dose: 12 unit Insulin Human Lispro (Insulin Lispro 100 Unit/Ml 3 Ml Vial) 0 unit SUBCUT QIDACHS [facility]; Protocol Last Admin: 04/22/24 07:13 Dose: Not Given Levothyroxine Sodium (Levothyroxine Sodium 100 Mcg Tablet) 100 mcg PO DAILY@0600 [facility] Last Admin: 04/22/24 06:20 Dose: 100 mcg Loperamide HCl (Loperamide Hcl 2 Mg Capsule) 2 mg PO Q4H PRN PRN Reason: LOOSE STOOLS Magnesium Hydroxide (Milk Of Magnesia 30 Ml Oral.Susp) 30 ml PO DAILY PRN PRN Reason: Constipation Melatonin (Melatonin 3 Mg Tablet) 6 mg PO BEDTIME PRN PRN Reason: Insomnia Last Admin: 04/21/24 21:00 Dose: 6 mg Metoprolol Succinate (Metoprolol Succinate Er 50 Mg Tab.Er.24h) 50 mg PO DAILY [facility]; Protocol Last Admin: 04/21/24 08:50 Dose: 50 mg Multivitamins/Vitamin C (Multivitamin Tablet) 1 tab PO BID [facility] Last Admin: 04/21/24 20:11 Dose: 1 tab Non-Formulary Medication (Rosuvastatin) 20 mg PO BEDTIME [facility] Ondansetron HCl (Ondansetron Hcl 4 Mg/2 Ml Vial) 4 mg IVPUSH Q8H PRN PRN Reason: Nausea and Vomiting Phenazopyridine HCl (Phenazopyridine Hcl 100 Mg Tablet) 100 mg PO TIDWM [facility] Last Admin: 04/21/24 17:02 Dose: 100 mg Polyethylene Glycol (Polyethylene Glycol 3350 17 Gm Powd.Pack) 17 gm PO BID PRN PRN Reason: constipation Pyridoxine HCl (Pyridoxine Hcl (Vitamin B6) 50 Mg Tablet) 100 mg PO DAILY [facility] Last Admin: 04/21/24 08:48 Dose: 100 mg Senna/Docusate Sodium (Sennosides/Docusate Sodium Tablet) 2 tab PO BID [facility] Last Admin: 04/21/24 20:11 Dose: 2 tab Sodium Chloride (0.9 % Sodium Chloride Flush 3 Ml Syringe) 3 ml IVFLUSH QSHIFT [facility] Last Admin: 04/22/24 07:13 Dose: 3 ml Vitamin D (Cholecalciferol (Vitamin D3) 25 Mcg Tablet) 125 mcg PO DAILY [facility] Last Admin: 04/21/24 08:49 Dose: 125 mcg Home Medications ?Medication ?Instructions ?Recorded ?Confirmed ?Last Taken ?Type lisinopril 40 mg tablet 40 mg PO DAILY 11/04/20 04/20/24 11/03/20 History levothyroxine 100 mcg tablet 100 mcg PO DAILY@0600 12/14/21 04/20/24 Unknown History rosuvastatin 20 mg tablet 20 mg PO BEDTIME 12/14/21 04/20/24 Unknown History acetaminophen 325 mg tablet 650 mg PO Q4H PRN Pain 04/16/24 04/20/24 Unknown History aluminum-mag hydroxide-simethicone 30 ml PO Q4H PRN GI UPSET 04/16/24 04/20/24 Unknown History 200 mg-200 mg-20 mg/5 mL oral susp (Mintox) glycerin (adult) 1 supp [place] DAILY PRN Constipation 04/16/24 04/20/24 Unknown History loperamide 2 mg capsule 2 mg PO Q4H PRN LOOSE STOOLS 04/16/24 04/20/24 Unknown History magnesium hydroxide 400 mg/5 mL 30 ml PO DAILY PRN Constipation 04/16/24 04/20/24 Unknown History oral suspension (Milk of Magnesia) sennosides 8.6 mg-docusate sodium 2 tab PO BID 04/16/24 04/20/24 Unknown History 50 mg tablet (Stool Softener-Laxative) vitamins A,C,F-wxmg-phqygh 2,148 1 tab PO BID 04/16/24 04/20/24 Unknown History mcg-113 mg-45 mg-17.4 mg tablet (PreserVision AREDS) Exam Height,Weight and Vital Signs: Height 5 ft 3 in Weight 66 kg Last Vital Signs Temp 96.8 F 04/22/24 03:32 Pulse 60 04/22/24 03:32 Resp 18 04/22/24 03:32 BP 135/63 04/22/24 03:32 Pulse Ox 92 04/22/24 03:32 O2 Del Method Room Air 04/22/24 03:32 O2 Flow Rate 2 04/21/24 07:45 Vital Signs Temp Pulse Resp BP Pulse Ox O2 Del Method 04/22/24 08:04 97.3 F 60 16 153/74 H 94 Room Air 04/22/24 07:51 97.0 F 60 18 147/65 H 93 Room Air 04/22/24 03:32 96.8 F 60 18 135/63 92 Room Air 04/21/24 23:47 98.7 F 61 18 112/53 L 93 Room Air 04/21/24 20:11 17 04/21/24 19:28 97.5 F 60 17 145/66 H 93 Room Air 04/21/24 16:04 96.9 F 60 18 161/66 H 94 Room Air 04/21/24 12:01 98.1 F 60 12 152/67 H 94 Room Air Pertinent Lab Results Pertinent Lab Results: Laboratory Tests 04/19/24 04/19/24 04/19/24 16:36 18:54 19:57 WBC 8.0 RBC 4.66 Hgb 13.2 Hct 42.2 MCV 90.6 MCH 28.3 MCHC 31.3 RDW 16.4 H Plt Count 198 MPV 9.5 Immature Gran % (Auto) 0.3 Neut % (Auto) 66.6 Lymph % (Auto) 23.3 [place] % (Auto) 7.1 Eos % (Auto) 1.9 Baso % (Auto) 0.8 Lymph # (Auto) 1.9 [place] # (Auto) 0.6 Eos # (Auto) 0.2 Baso # (Auto) 0.1 Abs Immat Gran (auto) 0.02 Absolute Neuts (auto) 5.3 Absolute Nucleated RBC 0.000 Nucleated RBC % (auto) 0.0 Sodium 146 H Potassium 3.7 Chloride 109 H Carbon Dioxide 25 Anion Gap 16 BUN 13 Creatinine 0.80 Estim Creat Clear Calc 46.3 Estimated GFR > 60 POC Glucose Random Glucose 155 H Lactic Acid 0.7 Calcium 9.5 Magnesium 2.0 Total Bilirubin 0.3 AST 20 ALT 9 Alkaline Phosphatase 89 Total Protein 6.5 Albumin 3.6 Urine Color Purdy A Urine Appearance Turbid Urine pH 6.0 Ur Specific [place] >= 1.030 H Urine Protein 100 (2+) H Urine Glucose (UA) Negative Urine Ketones Negative Urine Blood Large (3+) H Urine Nitrite Positive H Ur Leukocyte Esterase Moderate (2+) H Urine RBC >20 H Urine WBC 6-10 H Ur Squamous Epith Cells 0-2 Urine Bacteria None Seen Hyaline Casts 0-2 04/20/24 04/20/24 04/20/24 05:34 11:30 16:40 WBC 8.1 RBC 4.45 Hgb 12.7 Hct 40.7 MCV 91.5 MCH 28.5 MCHC 31.2 RDW 16.3 H Plt Count 182 MPV 9.7 Immature Gran % (Auto) 0.2 Neut % (Auto) 68.5 Lymph % (Auto) 21.6 [place] % (Auto) 7.1 Eos % (Auto) 2.0 Baso % (Auto) 0.6 Lymph # (Auto) 1.8 [place] # (Auto) 0.6 Eos # (Auto) 0.2 Baso # (Auto) 0.1 Abs Immat Gran (auto) 0.02 Absolute Neuts (auto) 5.6 Absolute Nucleated RBC 0.000 Nucleated RBC % (auto) 0.0 Sodium 143 Potassium 3.7 Chloride 110 H Carbon Dioxide 23 Anion Gap 14 BUN 13 Creatinine 0.70 Estim Creat Clear Calc 53.0 Estimated GFR > 60 POC Glucose 185 H 150 H Random Glucose 96 Lactic Acid Calcium 8.6 D Magnesium Total Bilirubin AST ALT Alkaline Phosphatase Total Protein Albumin Urine Color Urine Appearance Urine pH Ur Specific [place] Urine Protein Urine Glucose (UA) Urine Ketones Urine Blood Urine Nitrite Ur Leukocyte Esterase Urine RBC Urine WBC Ur Squamous Epith Cells Urine Bacteria Hyaline Casts 04/20/24 04/21/24 04/21/24 20:46 07:28 11:30 WBC RBC Hgb Hct MCV MCH MCHC RDW Plt Count MPV Immature Gran % (Auto) Neut % (Auto) Lymph % (Auto) [place] % (Auto) Eos % (Auto) Baso % (Auto) Lymph # (Auto) [place] # (Auto) Eos # (Auto) Baso # (Auto) Abs Immat Gran (auto) Absolute Neuts (auto) Absolute Nucleated RBC Nucleated RBC % (auto) Sodium Potassium Chloride Carbon Dioxide Anion Gap BUN Creatinine Estim Creat Clear Calc Estimated GFR POC Glucose 167 H 111 130 H Random Glucose Lactic Acid Calcium Magnesium Total Bilirubin AST ALT Alkaline Phosphatase Total Protein Albumin Urine Color Urine Appearance Urine pH Ur Specific [place] Urine Protein Urine Glucose (UA) Urine Ketones Urine Blood Urine Nitrite Ur Leukocyte Esterase Urine RBC Urine WBC Ur Squamous Epith Cells Urine Bacteria Hyaline Casts 04/21/24 04/21/24 04/22/24 16:21 20:15 07:00 WBC RBC Hgb Hct MCV MCH MCHC RDW Plt Count MPV Immature Gran % (Auto) Neut % (Auto) Lymph % (Auto) [place] % (Auto) Eos % (Auto) Baso % (Auto) Lymph # (Auto) [place] # (Auto) Eos # (Auto) Baso # (Auto) Abs Immat Gran (auto) Absolute Neuts (auto) Absolute Nucleated RBC Nucleated RBC % (auto) Sodium Potassium Chloride Carbon Dioxide Anion Gap BUN Creatinine Estim Creat Clear Calc Estimated GFR POC Glucose 139 H 182 H 106 Random Glucose Lactic Acid Calcium Magnesium Total Bilirubin AST ALT Alkaline Phosphatase Total Protein Albumin Urine Color Urine Appearance Urine pH Ur Specific [place] Urine Protein Urine Glucose (UA) Urine Ketones Urine Blood Urine Nitrite Ur Leukocyte Esterase Urine RBC Urine WBC Ur Squamous Epith Cells Urine Bacteria Hyaline Casts Airway Mallampati Class: II (Small mouth ) TM Dist: >3cm Neck ROM: Full Loose/Missing/Broken Teeth: Yes (Edentulous) Heart: Regular. Paced Lungs: CTAB Assessment and Plan Assessment Anesthesia Assessment: Anesthesia Plan Discussed and Chart Reviewed Final Anesthetic Review Family History of Problems with Anesthesia: No History of Problems with Anesthesia: No NPO: Yes ASA Class: III Final Preanesthetic Review: No Changes in Pt Med Stat, Meds/Allgs Chart Reviewed, Consent Obtained/Reviewed and Anes Risks/Benef Reviewed Patient Risk: High Procedure Risk: Low Assessment/Block/Sedation in SS: Assess/Block/Sedation-SS Anesthetic Plan Anesthetic Plan: GA and TIVA Disposition: Standard PACU and Inp. Admit - Standard Bed
--- NOTE | 2024-04-22 09:59 | P.OP_ITS ---
Operative Note Operative Note Date of Service: 04/22/24 Narrative: PreOperative Diagnosis:?? Left ureteral stone, left hydronephrosis, status post left ureteral stent Post Operative Diagnosis:?? Left renal stone, status post left ureteral stent Procedure: Cystoscopy, Left ureteroscopy laser lithotripsy stent exchange, size 6 Kinyarwanda by 24 cm Flexible Disposible Ureteroscope utililized Surgeon:?Dr Cy Hutchison Anesthesia:? General Indications for procedure: Here for stone fragmentation. Procedure: After informed consent was verified the patient was brought to the operating placed on the OR table in supine position.? General Anesthesia was administered per protocol.? The patient was placed in lithotomy position, prepped and draped in the usual sterile fashion.? Safety pause time-out and side of surgery confirmed.? Antibiotics confirmed. Intraoperative Fluoroscopy noted the stone had migrated into the left renal pelvis. A 22 Kinyarwanda cystoscope was inserted transurethrally, the bladder was visualized.?The left ureteral stent was curled in the bladder. The distal end of the ureteral stent was grasped with the flexible grasping forceps. The stent was pulled retrograde through the urethra. A guidewire was passed through the stent. A 2nd guidewire was passed into the left ureter. The cystoscope was removed, leaving the both guidewires in place. One guidewire was used as the safety and was attached to the draping. The disposable flexible ureteroscope was passed transurethrally over one of the guide wires to the level of the stone in the kidney. Laser lithotripsy of the stone was done using the 365/270 fiber with a combination of dusting and pulsating settings. There was good fragmentation of the stone. The fragments were tiny enough to pass freely along the stent. The renal calyces were visualized with the ureteroscope, there were tiny calcifications noted embedded into multiple calyces, there were no other freely moving renal stones visualiz ed. The ureteroscope was removed. The cystoscope was passed over the safety guidewire. A? 6 Kinyarwanda by 24 cm stent was placed into the ureter and renal pelvis under a combination of fluoroscopy and direct visualization. The bladder was emptied.? The rigid cystoscope was removed. ? The patient tolerated the procedure well and was brought to the recovery room in stable condition. Complications: None EBL: minimal Drains: Ureteral stent as dictated above
[2024-04-22] MEDS: Clopidogrel Bisulfate 75 MG TABLET PO (10:55)
[2024-04-22] MEDS: Cyanocobalamin (Vitamin B-12) 1,000 MCG TABLET 1000 MCG PO (10:55)
[2024-04-22] MEDS: Metoprolol Succinate ER 50 MG TAB.ER.24H PO (10:55)
[2024-04-22] MEDS: allopurinoL 100 MG TABLET PO (10:55)
[2024-04-22] MEDS: Multivitamin TABLET 1 TAB PO ×2 (10:55→21:19)
[2024-04-22] MEDS: Gabapentin 100 MG CAPSULE PO ×2 (10:56→21:19)
[2024-04-22] MEDS: Aspirin Enteric Coated 81 MG TABLET.DR PO (10:56)
[2024-04-22] MEDS: amLODIPine Besylate 5 MG TABLET PO (10:56)
[2024-04-22] MEDS: Pyridoxine HCl (Vitamin B6) 50 MG TABLET 100 MG PO (10:57)
[2024-04-22] MEDS: Famotidine 20 MG TABLET 40 MG PO (10:57)
[2024-04-22] MEDS: Cholecalciferol (Vitamin D3) 25 MCG TABLET 125 MCG PO (10:58)
[2024-04-22] MEDS: Sennosides/Docusate Sodium TABLET 2 TAB PO ×2 (10:58→21:18)
[2024-04-22] MEDS: Heparin Sodium,Porcine 5,000 UNIT/ML VIAL 5000 UNIT SUBCUT ×2 (10:59→21:19)
[2024-04-22] MEDS: Phenazopyridine HCL 100 MG TABLET PO ×2 (11:00→16:13)
[2024-04-22 11:42] LABS: Glucose, Whole Blood 104 mg/dL (60-115)
--- NOTE | 2024-04-22 13:25 | HO.PM.IMPN ---
Subjective Subjective Date of Service: 04/22/24 Interval History: f/u on acute pyelonephritis feels better, no fever. Had cystoscopy with left stent exchanged today Physical Exam Vital Signs: Vital Signs: Last Vital Signs Temp 97.6 F 04/22/24 11:52 Pulse 62 04/22/24 11:52 Resp 18 04/22/24 11:52 BP 139/63 04/22/24 11:52 Pulse Ox 94 04/22/24 11:52 O2 Del Method Room Air 04/22/24 11:52 O2 Flow Rate 2 04/22/24 10:12 BMI result Body Mass Index 25.8 Const: Other: General: AO X 3, no acute distress Resp: CTA bilateral CVS: S1,S2,RRR GI: +BS, NT, no distention gu: mild left flank tenderness Skin: No rash Neuro: motor grossly intact Psych: appropriate affect Objective Data Active Medications Acetaminophen (Acetaminophen 325 Mg Tablet) 975 mg PO Q6H PRN PRN Reason: Pain, Mild (Pain Scale 1-3), fever or headache Last Admin: 04/20/24 08:30 Dose: 975 mg Al Hydroxide/Mg Hydroxide (Magnesium Hydrox/Alum Hydrox 30 Ml Oral.Susp) 30 ml PO Q4H PRN PRN Reason: GI UPSET Allopurinol (Allopurinol 100 Mg Tablet) 100 mg PO DAILY [facility] Last Admin: 04/22/24 10:55 Dose: 100 mg Documented By: PAMELA Amlodipine Besylate (Amlodipine Besylate 5 Mg Tablet) 5 mg PO DAILY [facility]; Protocol Last Admin: 04/22/24 10:56 Dose: 5 mg Documented By: PAMELA Aspirin (Aspirin Enteric Coated 81 Mg Tablet.Dr) 81 mg PO DAILY [facility] Last Admin: 04/22/24 10:56 Dose: 81 mg Documented By: PAMELA Clopidogrel Bisulfate (Clopidogrel Bisulfate 75 Mg Tablet) 75 mg PO DAILY [facility] Last Admin: 04/22/24 10:55 Dose: 75 mg Documented By: PAMELA Cyanocobalamin (Cyanocobalamin (Vitamin B-12) 1,000 Mcg Tablet) 1,000 mcg PO DAILY [facility] Last Admin: 04/22/24 10:55 Dose: 1,000 mcg Documented By: PAMELA Donepezil HCl (Donepezil Hcl 5 Mg Tablet) 5 mg PO BEDTIME [facility] Last Admin: 04/21/24 20:11 Dose: 5 mg Documented By: KEIKO Famotidine (Famotidine 20 Mg Tablet) 40 mg PO DAILY [facility] Last Admin: 04/22/24 10:57 Dose: 40 mg Documented By: PAMELA Gabapentin (Gabapentin 100 Mg Capsule) 100 mg PO BID [facility] Last Admin: 04/22/24 10:56 Dose: 100 mg Documented By: PAMELA Glucose (Glucose Gel 15 Gm Gel..Gram.) 15 gm PO Q15M PRN; Protocol PRN Reason: per Hypoglycemia Standing Ord. Glycerin (Glycerin Adult Supp.Rect) 1 supp [place] DAILY PRN PRN Reason: Constipation Heparin Sodium (Porcine) (Heparin Sodium,Porcine 5,000 Unit/Ml Vial) 5,000 unit SUBCUT BID [facility] Last Admin: 04/22/24 10:59 Dose: 5,000 unit Documented By: PAMELA Hydromorphone HCl (Hydromorphone Hcl 0.5 Mg/0.5 Ml Syringe) 0.5 mg IVPUSH Q4H PRN; Protocol PRN Reason: Pain, Severe (Pain Scale 7-10) Last Admin: 04/22/24 11:09 Dose: 0.5 mg Documented By: PAMELA Levofloxacin (Levaquin) 500 mg in 100 mls @ 100 mls/hr IV Q24H [facility] Last Infusion: 04/21/24 21:10 Dose: Infused Documented By: KEIKO Dextrose (D10) 250 mls @ 750 mls/hr IV Q15M PRN; Protocol PRN Reason: per Hypoglycemia Standing Ord. Insulin Glargine (Insulin Glargine,Hum.Rec.Anlog 100 Unit/Ml 10 Ml Vial) 12 unit SUBCUT BEDTIME [facility] Last Admin: 04/21/24 21:00 Dose: 12 unit Documented By: KEIKO Insulin Human Lispro (Insulin Lispro 100 Unit/Ml 3 Ml Vial) 0 unit SUBCUT QIDACHS [facility]; Protocol Last Admin: 04/22/24 11:47 Dose: Not Given Documented By: PAMELA Non-Admin Reason: No Insulin Coverage Levothyroxine Sodium (Levothyroxine Sodium 100 Mcg Tablet) 100 mcg PO DAILY@0600 [facility] Last Admin: 04/22/24 06:20 Dose: 100 mcg Documented By: KEIKO Loperamide HCl (Loperamide Hcl 2 Mg Capsule) 2 mg PO Q4H PRN PRN Reason: LOOSE STOOLS Magnesium Hydroxide (Milk Of Magnesia 30 Ml Oral.Susp) 30 ml PO DAILY PRN PRN Reason: Constipation Melatonin (Melatonin 3 Mg Tablet) 6 mg PO BEDTIME PRN PRN Reason: Insomnia Last Admin: 04/21/24 21:00 Dose: 6 mg Documented By: KEIKO Metoprolol Succinate (Metoprolol Succinate Er 50 Mg Tab.Er.24h) 50 mg PO DAILY [facility]; Protocol Last Admin: 04/22/24 10:55 Dose: 50 mg Documented By: PAMELA Multivitamins/Vitamin C (Multivitamin Tablet) 1 tab PO BID [facility] Last Admin: 04/22/24 10:55 Dose: 1 tab Documented By: PAMELA Non-Formulary Medication (Rosuvastatin) 20 mg PO BEDTIME [facility] Ondansetron HCl (Ondansetron Hcl 4 Mg/2 Ml Vial) 4 mg IVPUSH Q8H PRN PRN Reason: Nausea and Vomiting Phenazopyridine HCl (Phenazopyridine Hcl 100 Mg Tablet) 100 mg PO TIDWM [facility] Last Admin: 04/22/24 11:00 Dose: 100 mg Documented By: PAMELA Polyethylene Glycol (Polyethylene Glycol 3350 17 Gm Powd.Pack) 17 gm PO BID PRN PRN Reason: constipation Pyridoxine HCl (Pyridoxine Hcl (Vitamin B6) 50 Mg Tablet) 100 mg PO DAILY [facility] Last Admin: 04/22/24 10:57 Dose: 100 mg Documented By: PAMELA Senna/Docusate Sodium (Sennosides/Docusate Sodium Tablet) 2 tab PO BID [facility] Last Admin: 04/22/24 10:58 Dose: 2 tab Documented By: PAMELA Sodium Chloride (0.9 % Sodium Chloride Flush 3 Ml Syringe) 3 ml IVFLUSH QSHIFT [facility] Last Admin: 04/22/24 07:13 Dose: 3 ml Documented By: PAMELA Vitamin D (Cholecalciferol (Vitamin D3) 25 Mcg Tablet) 125 mcg PO DAILY [facility] Last Admin: 04/22/24 10:58 Dose: 125 mcg Documented By: PAMELA Labs 04/23/24 07:29 04/20/24 05:34 Labs: Laboratory Results - last 24 hr 04/21/24 04/21/24 04/22/24 16:21 20:15 07:00 POC Glucose 139 H 182 H 106 04/22/24 11:23 POC Glucose 104 Microbiology Microbiology Results: Microbiology 04/19/24 20:10 Blood Culture - Preliminary Blood - Venous No growth after 48 hours. 04/19/24 19:56 Blood Culture - Preliminary Blood - Venous No growth after 48 hours. 04/19/24 18:54 Urine Culture - Final Urine clean catch - Clean Catch Midstream Assessment and Plan (1) Pyelonephritis: Status: Acute Plan 78/F who recently had reeteral stent inseted and now with acute pyelonephritis Acute pyelonephritis following left ureteral stent insertion on April [address] Ernst. IV Levaquin follow culture todat s/p Cystoscopy, Left ureteroscopy laser lithotripsy stent exchange, mild hypernatremia; resolved gout, continue allopurinol. GERD, continue famotidine. diabetes continue lantus, ssi and diabetic diet hypertension, continue lisinopril, amlodipine, and metoprolol. hypothyroidism, continue levothyroxine. coronary artery disease, continue Plavix and aspirin. dementia, hold donepezil due to the risk of QT interval prolongation when combined with levofloxacin. hyperlipidemia, continue the statin DVT prophylaxis heparin full code need for inpt: management of acute pyelonephritis in setting of recent stent placement anticipate dc tomorrow Quality Stroke Does the patient have a stroke diagnosis?: No VTE Prior VTE?: No VTE Risk Level:: Medical - moderate - high VTE Device Contraindication: N/A - Device Ordered VTE Drug Contraindication: Treatment Not Indicated
[2024-04-22 16:21] LABS: Glucose, Whole Blood 134 mg/dL (60-115)
[2024-04-22 20:07] LABS: Glucose, Whole Blood 124 mg/dL (60-115)
[2024-04-22] MEDS: Insulin Glargine,Hum.rec.anlog 100 UNIT/ML 10 ML VIAL 12 UNIT SUBCUT (21:18)
[2024-04-22] MEDS: levoFLOXacin/D5W 500 MG/100 ML PIGGYBACK 100 MG IV (21:18)
[2024-04-22] MEDS: Donepezil HCl 5 MG TABLET PO (21:19)
[2024-04-23] MEDS: Levothyroxine Sodium 100 MCG TABLET PO (06:12)
[2024-04-23 07:18] VITALS: BP 121/58; PULSE 60; RESP 16; TEMP 36.7; O2SAT 95
[2024-04-23 07:20] LABS: Glucose, Whole Blood 113 mg/dL (60-115)
[2024-04-23] MEDS: 0.9 % Sodium Chloride Flush 3 ML SYRINGE IVFLUSH (07:55)
[2024-04-23] MEDS: Phenazopyridine HCL 100 MG TABLET PO ×2 (07:58→12:06)
[2024-04-23] MEDS: Clopidogrel Bisulfate 75 MG TABLET PO (07:58)
[2024-04-23] MEDS: Heparin Sodium,Porcine 5,000 UNIT/ML VIAL 5000 UNIT SUBCUT (07:58)
[2024-04-23] MEDS: Multivitamin TABLET 1 TAB PO (07:59)
[2024-04-23] MEDS: Gabapentin 100 MG CAPSULE PO (07:59)
[2024-04-23] MEDS: Sennosides/Docusate Sodium TABLET 2 TAB PO (07:59)
[2024-04-23] MEDS: Cholecalciferol (Vitamin D3) 25 MCG TABLET 125 MCG PO (07:59)
[2024-04-23] MEDS: Aspirin Enteric Coated 81 MG TABLET.DR PO (07:59)
[2024-04-23] MEDS: Famotidine 20 MG TABLET 40 MG PO (07:59)
[2024-04-23] MEDS: allopurinoL 100 MG TABLET PO (07:59)
[2024-04-23] MEDS: amLODIPine Besylate 5 MG TABLET PO (07:59)
[2024-04-23] MEDS: Pyridoxine HCl (Vitamin B6) 50 MG TABLET 100 MG PO (07:59)
[2024-04-23] MEDS: Metoprolol Succinate ER 50 MG TAB.ER.24H PO (07:59)
[2024-04-23] MEDS: Cyanocobalamin (Vitamin B-12) 1,000 MCG TABLET 1000 MCG PO (08:00)
[2024-04-23 08:15] LABS: Hematocrit 37.9 % (37.0-47.0); Mean Corpuscular HGB Conc 31.7 g/dl (31.0-35.0); Mean Corpuscular Hemoglobin 28.4 pg (27.0-33.0); Mean Corpuscular Volume 89.6 fL (80.0-98.0); Mean Platelet Volume 10.2 fL (9.4-12.3); Platelet Count 199 X10*3/uL (160-400); Red Blood Count 4.23 X10*6/uL (4.20-5.50); White Blood Count 7.3 X10*3/uL (4.8-10.8)
--- NOTE | 2024-04-23 09:09 | HO.POSTANES ---
Post Anesthesia Evaluation Post Anesthesia Evaluation Date of Service: 04/22/24 Vital Signs: Vital Signs Temp Pulse Resp BP Pulse Ox O2 Del Method 04/23/24 07:18 98.1 F 60 16 121/58 L 95 Room Air 04/22/24 23:31 97.7 F 60 16 131/63 92 Room Air Anesthesia: General Mental Status: Awake Pain Control: Satisfactory Nausea/Vomiting: None Hydration: Adequate Anesthesia-Related Issues: No Anes. Related Issues
--- NOTE | 2024-04-23 10:44 | PM.DS ---
DS: Providers Provider Date of Service: 04/23/24 Date of admission: 04/19/24 21:17 Primary care physician: Ashley Morales MD Consults: 04/19/24 21:17 Consult to Urology Routine Consulting Provider: [facility] Reason for consultation: s/p recent stent placement, pyelonephritis Has provider been notified: No DS: Diagnosis Discharge Diagnosis (1) Pyelonephritis: Status: Acute DS: Summary Hospital Course Hospital Course: admission hpi Chief Complaint: LLQ pain China Carter is a very pleasant 78 years old woman with past medical history significant for nephrolithiasis, recent cystoscopy + left stent insertion by Dr. Ernst essential hypertension, hyperlipidemia, PPM, CAD and hypothyroidism presents to the ED complaining of left lower quadrant pain that started today associated with nausea and vomiting. She complained of having pressure sensation upon urinating and bloody urine. The pain has not radiations and had an intensity of 10/10. Currently, her pain is well controlled after receiving a few doses of morphine IV. She denies fever, chills and diarrhea. She denied any acute cardiopulmonary symptoms. In the ED, she was found to have stable vital signs. Oxygen saturation dropped to 88% after receiving morphine IV. She currently requiring 2 L/min of supplemental oxygen via nasal cannula. Blood workup showed no leukocytosis or lactic acidosis. Hemoglobin and platelets are normal. Sodium is 146. There are no other electrolyte imbalances. Glucose is 155. LFTs are normal. Urinalysis consistent with UTI and presence of blood. Abdominal pelvis CT scan with IV contrast showed bilateral nonobstructive renal collecting system stones, left UVJ stone not longer present, no hydronephrosis, focal lobe dilation and right upper quadrant with no evidence of SBO and moderate amount of stool within the rectal vault. ED tx: NS 500 mL bolus, morphine 12 mg IV, Zofran 4 mg IV, levofloxacin 750 mg IV Hospital course: Patient presented with LLQ and UA +, she had recently had acute a left stent placed for kidney stone on Apr 17, she was admitted and treated for acute pyelonephritis with IV antibiotics and seems to has responded well despite negative urine culture. On Apr 22, she underwent Cystoscopy, Left ureteroscopy, laser lithotripsy, stent exchange and is doing well post operatively and will be discharged home to complet a 10 day course of antibiotics and follow up with urologist. To resume other home medicdations Time Attestation Discharge Coordination Time (in mins): 35 Quality: Safe Use of Opioids Does Pt have an Active Cancer Diagnosis on the Problem List?: No Quality: Stroke Does the patient have a stroke diagnosis?: No Physical Exam Vital Signs: Vital Signs: Last Vital Signs Temp 98.1 F 04/23/24 07:18 Pulse 60 04/23/24 07:18 Resp 16 04/23/24 07:18 BP 121/58 L 04/23/24 07:18 Pulse Ox 95 04/23/24 07:18 O2 Del Method Room Air 04/23/24 07:18 O2 Flow Rate 2 04/22/24 10:12 BMI result Body Mass Index 25.8 DS: Data Data Completed and Pending Labs on day of discharge: Laboratory Results - last 24 hr 04/22/24 04/22/24 04/22/24 11:23 16:09 19:55 WBC RBC Hgb Hct MCV MCH MCHC RDW Plt Count MPV Absolute Nucleated RBC Nucleated RBC % (auto) POC Glucose 104 134 H 124 H 04/23/24 04/23/24 07:16 07:29 WBC 7.3 RBC 4.23 Hgb 12.0 Hct 37.9 MCV 89.6 MCH 28.4 MCHC 31.7 RDW 16.0 Plt Count 199 MPV 10.2 Absolute Nucleated RBC 0.000 Nucleated RBC % (auto) 0.0 POC Glucose 113 Preliminary micro results at discharge 04/19/24 20:10 Blood Culture - Preliminary Blood - Venous No growth after 48 hours. 04/19/24 19:56 Blood Culture - Preliminary Blood - Venous No growth after 48 hours. Discharge Plan Discharge Anticipated Discharge Date/Time: 04/23/24 10:38 Patient Disposition: Home, Self-Care Discharge Diagnosis: Acute Pyelonephritis, known kidney stone Referrals: Ashley Morales MD [Primary Care Provider] - 1 Week Discharge Medications: Continued (DME) blood-glucose meter [OneTouch Ultra2 Meter] Misc See Rx Instructions .ROUTE .MEDSUPPLY Qty: 100 3RF Rx Instructions: tid pyridoxine (vitamin B6) 100 mg tablet 100 mg PO DAILY 90 Days Qty: 90 3RF (DME) pen needle, diabetic [Comfort EZ Pen [place]] 33 gauge x 5/32 needle See Rx Instructions .Route Qty: 100 3RF Rx Instructions: As directed cyanocobalamin (vitamin B-12) 1,000 mcg tablet 1,000 mcg PO DAILY Qty: 30 8RF (DME) FreeStyle Lite Strips Strip See Rx Instructions .Route Qty: 100 5RF Rx Instructions: test blood sugar 3 times per day famotidine 40 mg tablet 40 mg PO DAILY Qty: 90 3RF cholecalciferol (vitamin D3) 125 mcg (5,000 unit) capsule 125 mcg PO DAILY Qty: 90 3RF donepezil 5 mg tablet 5 mg PO BEDTIME Qty: 90 3RF metoprolol succinate 25 mg tablet extended release 24 hr 50 mg PO DAILY Qty: 90 3RF gabapentin 100 mg capsule 100 mg PO BID Qty: 180 3RF clopidogrel 75 mg tablet 75 mg PO DAILY Qty: 90 3RF allopurinol 100 mg tablet 100 mg PO DAILY 90 Days Qty: 90 1RF polyethylene glycol 3350 [Miralax] 17 gram/dose powder 17 g PO BID PRN (Reason: constipation) Qty: 238 0RF Rx Instructions: If no BM x 3 days lisinopril 40 mg Tablet 40 mg PO DAILY aspirin 81 mg capsule 81 mg PO DAILY Qty: 30 0RF acetaminophen 325 mg Tablet 650 mg PO Q4H PRN (Reason: Pain) loperamide 2 mg Capsule 2 mg PO Q4H PRN (Reason: LOOSE STOOLS) Rx Instructions: administer after each loose stool until symptoms controlled; do not exceed 8 mg per 24 hrs sennosides-docusate sodium [Stool Softener-Laxative] 8.6-50 mg tablet 2 tab PO BID magnesium hydroxide [Milk of Magnesia] 400 mg/5 mL Suspension 30 ml PO DAILY PRN (Reason: Constipation) alum-mag hydroxide-simeth [Mintox] 200-200-20 mg/5 mL Suspension 30 ml PO Q4H PRN (Reason: GI UPSET) Rx Instructions: administer between meals and at bedtime glycerin (adult) Suppository 1 supp [place] DAILY PRN (Reason: Constipation) PreserVision AREDS 2,148 mcg-113 mg-45 mg-17.4mg tablet 1 tab PO BID amlodipine 5 mg Tablet 5 mg PO DAILY Qty: 90 0RF Protocol: Hold for SBP< HOLD for SBP < : 90 phenazopyridine 100 mg Tablet 100 mg PO TIDWM Qty: 9 0RF Rx Instructions: END DATE: 04/21/24 Tresiba FlexTouch U-100 100 unit/mL (3 mL) insulin pen 18 unit subcut BEDTIME Qty: 15 4RF rosuvastatin 20 mg tablet 20 mg PO BEDTIME levothyroxine 100 mcg tablet 100 mcg PO DAILY@0600 (DME) lancets [OneTouch Delica Lancets] 33 gauge misc See Rx Instructions .ROUTE .MEDSUPPLY Qty: 100 5RF Rx Instructions: TID (DME) blood sugar diagnostic Strip See Rx Instructions .ROUTE .MEDSUPPLY Qty: 100 4RF Rx Instructions: tid Discharge Orders: Discharge Order (Routine); Ordered 04/23/24 Ordered By: Andrew Anton Diet: Diabetic diet Activity on Discharge: As tolerated Stand Alone Forms: Patient Portal Discharge page Print Language: Bolivian Care Plan Goals: Recovery from pyelonephritis, kidney stone, obstructive uropathy. Health Concerns: Kidney stone, pyelonephritis, kidney stents Plan of Treatment: take levaquin as recommended and follow up with your urologist Assessment: s
[2024-04-23 11:09] LABS: Glucose, Whole Blood 173 mg/dL (60-115)
--- NOTE | 2024-04-23 11:40 | MHC.CM.PN ---
Per MD patient medically cleared for dc back to [facility] on PO abx. Will transport via BLS at 1:30pm. Facility, daughter/HCP, patient and RN aware. DC summary faxed to facility.
[2024-04-23] MEDS: Insulin Lispro 100 UNIT/ML 3 ML VIAL SUBCUT (12:06)
== END 2024-04-23 14:42 | disposition home or self-care (01) | DRG 857 ==
LOC: HO.ED 19:38 → HO.EDOVER 21:18 → HO.S3 04-20 19:29
PROVIDERS: Physician Assistant Medical; Urology; Admitting Provider Internal Medicine; Emergency Provider Internal Medicine; PCP Internal Medicine; Visit Provider Internal Medicine
PROC: 0T778DZ Dilation of Left Ureter with Intraluminal Device, Via Natural or Artificial Opening Endoscopic (ICD-10-PCS; principal; 2024-04-22 08:40)
DX: T81.40XA Infection following a procedure, unspecified, initial encounter (principal); E87.0 Hyperosmolality and hypernatremia; N10 Acute pyelonephritis; N20.0 Calculus of kidney; E03.9 Hypothyroidism, unspecified; I25.10 Atherosclerotic heart disease of native coronary artery without angina pectoris; E78.5 Hyperlipidemia, unspecified; Z87.442 Personal history of urinary calculi; R31.0 Gross hematuria; F03.90 Unspecified dementia, unspecified severity, without behavioral disturbance, psychotic disturbance, mood disturbance, and anxiety; K21.9 Gastro-esophageal reflux disease without esophagitis; M10.9 Gout, unspecified; Z87.891 Personal history of nicotine dependence; Z95.0 Presence of cardiac pacemaker; Z79.4 Long term (current) use of insulin; Z79.02 Long term (current) use of antithrombotics/antiplatelets; Z79.82 Long term (current) use of aspirin; Z79.890 Hormone replacement therapy; Z79.899 Other long term (current) drug therapy
CPT/HCPCS: 0241U; 36415; 70450; 74176; 74177; 80048; 80053; 81001; 82947; 83605; 83690; 83735; 85025; 85027; 87040; 87086; 93005; 93306; 99222; 99285; C1758; C1769; C2617; J0131; J0360; J0690; J0736; J1171; J1644; J1940; J1956; J2003; J2270; J2405; J2704; J3010; J3475; J3480; J7120; Q9967

== ENCOUNTER 2024-04-19 21:17 | Outpatient (BNV) | payer MEDICARE, MEDICAID, SELFPAY | END 2024-04-19 23:16 | PROVIDERS: Admitting Provider Internal Medicine; Emergency Provider Internal Medicine; PCP Internal Medicine; Visit Provider Internal Medicine Cardiovascular Disease | DX: R94.31 Abnormal electrocardiogram [ECG] [EKG] (principal) | CPT/HCPCS: 93010 ==

== ENCOUNTER → 2024-04-19 21:17 | Outpatient (BNV) | payer MEDICARE, MEDICAID, SELFPAY | PROVIDERS: Admitting Provider Internal Medicine; Emergency Provider Internal Medicine; PCP Internal Medicine; Visit Provider Internal Medicine | DX: N12 Tubulo-interstitial nephritis, not specified as acute or chronic (principal) | CPT/HCPCS: 99223; 99232 ==

== ENCOUNTER → 2024-04-19 21:17 | Outpatient (BNV) | payer MEDICARE, MEDICAID, SELFPAY | PROVIDERS: Admitting Provider Internal Medicine; Emergency Provider Internal Medicine; PCP Internal Medicine; Visit Provider Urology | DX: R31.9 Hematuria, unspecified (principal); N20.1 Calculus of ureter; N20.0 Calculus of kidney | CPT/HCPCS: 52356; 99222 ==

== ENCOUNTER 2024-05-06 13:34 | Outpatient (AMB) | payer MEDICARE, MEDICAID, SELFPAY ==
[2024-05-06 14:14] VITALS: BP 132/70; PULSE 60; O2SAT 93; BMI 26.0
--- NOTE | 2024-05-06 14:14 | A.OFFPC_ITS ---
Vital Signs 05/06/24 14:14 Height 5 ft 3 in Weight 147 lb BMI 26.0 BP 132/70 Blood Pressure Location Lt brachial Position Sitting Pulse 60 Pulse Source Pulse Oximeter Pulse Oximetry (%) 93 Intake Visit Reasons: TCM Intake Note: pt is here for TCM visit Allergies atorvastatin Allergy (Unknown, Verified 05/06/24 14:17) pt does not know azithromycin Allergy (Unknown, Verified 05/06/24 14:17) pt does not know ceftriaxone Allergy (Unknown, Verified 05/06/24 14:17) pt does not know cephalexin Allergy (Unknown, Verified 05/06/24 14:17) pt does not know citalopram Allergy (Unknown, Verified 05/06/24 14:17) pt does not know levofloxacin Allergy (Unknown, Verified 05/06/24 14:17) pt does not know metformin Allergy (Unknown, Verified 05/06/24 14:17) pt does not know nitrofurantoin Allergy (Unknown, Verified 05/06/24 14:17) pt does not know oxycodone Allergy (Unknown, Verified 05/06/24 14:17) pt does not know penicillin V Allergy (Unknown, Verified 05/06/24 14:17) pt does not know pioglitazone Allergy (Unknown, Verified 05/06/24 14:17) pt does not know repaglinide Allergy (Unknown, Verified 05/06/24 14:17) pt does not know rosuvastatin [Crestor] Allergy (Unknown, Verified 05/06/24 14:17) pt does not know sertraline Allergy (Unknown, Verified 05/06/24 14:17) pt does not know simvastatin Allergy (Unknown, Verified 05/06/24 14:17) pt does not know sulfacetamide Allergy (Unknown, Verified 05/06/24 14:17) pt does not know aspirin Allergy (Verified 05/06/24 14:17) Unknown Cefuroxime Sodium Allergy (Unknown, Uncoded 04/14/24 18:20) pt does not know Medication List - Last Reconciled 05/06/24 by Ashley Morales MD acetaminophen 650 mg PO Q4H PRN allopurinol 100 mg PO DAILY 90 days alum-mag hydroxide-simeth 200-200-20 mg/5 mL (Mintox) 30 mL PO Q4H PRN amlodipine 5 mg See Protocol PO DAILY aspirin 81 mg PO DAILY blood sugar diagnostic tid blood sugar diagnostic (FreeStyle Lite Strips) test blood sugar 3 times per day blood-glucose meter (Personal Medicineuch Ultra2 Meter) tid cholecalciferol (vitamin D3) 125 mcg PO DAILY clopidogrel 75 mg PO DAILY cyanocobalamin (vitamin B-12) 1,000 mcg PO DAILY donepezil 5 mg PO BEDTIME famotidine 40 mg PO DAILY gabapentin 100 mg PO BID glycerin (adult) 1 supp [place] DAILY PRN insulin degludec (Tresiba FlexTouch U-100 insulin) 18 units (0.18 mL) subcut BEDTIME lancets (MinilogsTouch Delica Lancets) TID levofloxacin 500 mg PO Q24H levothyroxine 100 mcg PO DAILY@0600 lisinopril 40 mg PO DAILY loperamide 2 mg PO Q4H PRN magnesium hydroxide (Milk of Magnesia) 30 mL PO DAILY PRN metoprolol succinate ER 50 mg (2 x 25 mg) PO DAILY pen needle, diabetic (Comfort EZ Pen [place]) As directed polyethylene glycol 3350 (Miralax) 17 grams PO BID PRN pyridoxine (vitamin B6) 100 mg PO DAILY 90 days rosuvastatin 20 mg PO BEDTIME sennosides-docusate sodium 8.6-50 mg (Stool Softener-Laxative) 2 tabs PO BID vitamins A,C,X-ayxn-llwozq 2,148 mcg-113 mg-45 mg-17.4mg (PreserVision AREDS) 1 tab PO BID Tobacco use date assessed: 06/06/23 Fall risk assessment: No Falls in past year Last assessed Fall Risk: 05/06/24 Dental Screening Dental Screen Date: 06/06/23 HPI TCM HPI Details Patient presents for the follow-up of hospitalization for acute pyelonephritis bilateral nephrolithiasis and status post stent placement for left ureteral stone on 04/25. She completed a course of antibiotic and is feeling well. She will follow-up with Urology. Hypertension type 2 diabetes and hypothyroidism are controlled on current medications. TCM TCM Information Date of Discharge 04/23/24 Discharged From [facility] Medical History (Updated 05/06/24 @ 15:18 by Ashley Morales MD) Bilateral kidney stones Annual physical exam HTN (hypertension) IDDM (insulin dependent diabetes mellitus) Diverticulitis Nephrolithiasis Cataract Hyperlipidemia Pacemaker Myocardial infarct Macular degeneration Nephrolithiasis Dementia Frequent UTI HTN (hypertension) Hypothyroid Diabetes Surgical History Status post lumbar spine surgery for decompression of spinal cord H/O left knee surgery Family History Father Heart attack Mother Heart problem Heart attack Substance use disorder Social History Household Members: Other Household Members Other:: lives in assisted living Housing: Assisted Living Facility Housing Other:: [facility] Do you presently have visiting nurse or other home services: No Alcohol intake: never Comment: pt will get oob without assistance. Patient Tobacco Use Status: Former Tobacco user Tobacco use type: Cigarette Cigarettes Per Day: 10.0 Years Smoked: 54 e-Cigarette/Vaping Use: Never Used Second Hand Smoke Exposure: No Advance Directives Date on File: 11/05/20 service: No Current occupational status: retired Cognitive needs: No Hearing needs: No Vision needs: Yes Questionnaire PHQ-9 Over the last 2 weeks, how often have you been bothered by any of the following problems? 1. Little interest or pleasure in doing things: nearly every day 2. Feeling down, depressed, or hopeless: not at all 3. Trouble falling or staying asleep, or sleeping too much: nearly every day 4. Feeling tired or having little energy: nearly every day 5. Poor appetite or overeating: more than half the days 6. Feeling bad about yourself - or that you are a failure or have let yourself or your family down: not at all 7. Trouble concentrating on things, such as reading the newspaper or watching television: not at all 8. Moving or speaking so slowly that other people could have noticed. Or the opp osite - being so fidgety or restless that you have been moving around a lot more than usual: not at all 9. Thoughts that you would be better off or of hurting yourself in some way: not at all Total score: 11 Depression Screening Interpretation: Positive Depression Screening Done: Yes 70496 - PHQ-9 Billing: Yes Source: Developed by Drs. Manohar Reynoso, Andres Mccann and colleagues, with an educational mónica from [employer]. Thrive Questionnaire Date Thrive assessed: 05/06/24 I am a: Parent/Caregiver What is your living situation today?: I have a steady place to live Within the past 12 months, did the food you bought not last and you didn't have the money to get more?: Never true Within the past 12 months, did you worry whether your food would run out before you got money to buy more?: Never true Do you have trouble paying for medicines?: No Do you have trouble getting transportation to medical appointments?: No Do you have trouble paying your heating and electricity bill?: No Do you have trouble taking care of your child, family member or friend?: I choose not to answer this question Do you have trouble with day-to-day activities such as bathing, preparing meals, shopping, managing finances, etc.?: Yes Are you currently unemployed and looking for a job?: No Are you interested in more education?: No Please select the resources that you would like help with: None Currently or been in a relationship where the following occur: No concerns reported THRIVE Score: 0 AUDIT C Alcohol Use Questionnaire (AUDIT-C) 1. How often do you have a drink containing alcohol?: Never 3. How often do you have six or more drinks on one occasion?: Never Total Score: 0 Score Reviewed/Action Taken: Yes YAHIR-7 AMB Questionnaire YAHIR-7 Date YAHIR - 7 assessed: 05/06/24 Feeling nervous, anxious, or on edge: 0 = Not at all Not being able to stop or control worryin = Not at all Worrying too much about different things: 0 = Not at all Trouble relaxin = Not at all Being so restless that it is hard to sit still: 0 = Not at all Becoming easily annoyed or irritable: 0 = Not at all Feeling afraid as if something awful might happen: 0 = Not at all Total YAHIR-7 score (0-4 normal; 5-9 mild; 10-14 moderate; 15-21 severe): 0 Source: Developed by Drs. Manohar Reynoso, Andres Mccann and colleagues, with an educational mónica from [employer]. YAHIR-7 Assessment Billing YAHIR-7 Assessment Tool: YAHIR-7 Assessment 31127 Review of Systems Const All systems reviewed & are unremarkable except as noted in HPI and below Eyes Reports no additional complaints ENT Reports no additional complaints Card Reports no additional complaints Resp Reports no additional complaints GI Reports no additional complaints Reports no additional complaints Physical exam (Primary Care) Vital Signs: Last Vital Signs Pulse 60 05/06/24 14:14 BP 132/70 05/06/24 14:14 Pulse Ox 93 05/06/24 14:14 BMI result Body Mass Index 26.0 Tobacco/Smoking Status: Tobacco use Status Tobacco use date assessed 06/06/23 05/06/24 14:14 Patient Tobacco Use Status Former Tobacco user 05/06/24 14:14 Tobacco use type Cigarette 05/06/24 14:14 e-Cigarette/Vaping Use Never Used 05/06/24 14:14 PHQ-9: PHQ-9 Score PHQ-9: Total score 11 05/06/24 14:16 Depression Screening Interpretation: Positive Thrive Assessment: Date of Thrive Assessment Date Thrive assessed 05/06/24 05/06/24 14:16 Currently or been in a relationship where the following occur: No concerns reported Const General: no acute distress HENMT Head: Yes normal to inspection Mouth: Normal oral and palatal mucosa present Throat: Yes posterior oropharynx normal Resp Effort & Inspection: normal respiratory effort Auscultation: clear to auscultation bilaterally Cardio Rhythm: regular rhythm Heart sounds: S1 normal heart sound present and S2 normal heart sound present GI Inspection: Yes normal to inspection Palpation (GI): Soft to palpation Percussion: Yes normal to percussion Auscultation: normal bowel sounds Coding Level of Care Code Est Pt Level 4 (13439) Complex EM visit Add On G2211 Diagnoses HTN (hypertension) I10 Diabetes E11.9 Hyperlipidemia E78.5 Hypothyroid E03.9 AAA (abdominal aortic aneurysm) I71.40 Myocardial infarct I21.9 Dementia F03.90 Additional Codes YAHIR-7 Assessment Billing - YAHIR-7 Assessment Tool: YAHIR-7 Assessment 19476 ([id number]) PHQ-9 - 08048 - PHQ-9 Billing: Yes ([id number]) Assessment & Plan Assessment & Plan (1) HTN (hypertension): Comment: BP < 130/80 Code(s): I10 - Essential (primary) hypertension Category: Medical Plan: Continue current medications (2) Diabetes: Comment: A1C < 8 Code(s): E11.9 - Type 2 diabetes mellitus without complications Category: Medical Plan: ADA diet regular physical activity discussed with the patient and her daughter, continue current medications (3) Hyperlipidemia: Code(s): E78.5 - Hyperlipidemia, unspecified Category: Medical Plan: Continue statin (4) Hypothyroid: Code(s): E03.9 - Hypothyroidism, unspecified Category: Medical Plan: Continue levothyroxine (5) AAA (abdominal aortic aneurysm): Comment: CT 04/2024 FUSIFORM 3.8 CM ABDOMINAL AORTA ANEURYSM small amount of mural thrombus, chronic thrombosed dissection Code(s): I71.40 - Abdominal aortic aneurysm, without rupture, unspecified Category: Medical Plan: Follow-up with the vascular surgeon (6) Myocardial infarct: Comment: 2004 s/p stent Code(s): I21.9 - Acute myocardial infarction, unspecified Category: Medical Plan: Continue current medications (7) Dementia: Code(s): F03.90 - Unspecified dementia, unspecified severity, without behavioral disturbance, psychotic disturbance, mood disturbance, and anxiety Category: Medical Plan: Continue donepezil Orders: Orders Lipid Panel 3 Months E03.9 - Hypothyroidism, unspecified, E11.9 - Type 2 diabetes mellitus without complications, E78.5 - Hyperlipidemia, unspecified, I10 - Essential (primary) hypertension TSH reflex Free T4 3 Months E03.9 - Hypothyroidism, unspecified, E11.9 - Type 2 diabetes mellitus without complications, E78.5 - Hyperlipidemia, unspecified, I10 - Essential (primary) hypertension Comprehensive [place]. Panel Fast 3 Months E03.9 - Hypothyroidism, unspecified, E11.9 - Type 2 diabetes mellitus without complications, E78.5 - Hyperlipidemia, unspecified, I10 - Essential (primary) hypertension Hemoglobin A1c 3 Months E03.9 - Hypothyroidism, unspecified, E11.9 - Type 2 diabetes mellitus without complications, E78.5 - Hyperlipidemia, unspecified, I10 - Essential (primary) hypertension Complete Blood Count Auto Diff 3 Months E03.9 - Hypothyroidism, unspecified, E11.9 - Type 2 diabetes mellitus without complications, E78.5 - Hyperlipidemia, unspecified, I10 - Essential (primary) hypertension Microalbumin, Random (w Creat) 3 Months E03.9 - Hypothyroidism, unspecified, E11.9 - Type 2 diabetes mellitus without complications, E78.5 - Hyperlipidemia, unspecified, I10 - Essential (primary) hypertension Medications: Refilled amlodipine 5 mg PO DAILY 90 tabs 0RF Discontinued levofloxacin Discontinued Reason: Doctor's Order 500 mg PO Q24H 6 tabs 0RF
--- OUTSIDE RECORDS SUMMARY | 2024-05-13 14:32 | XMS_ITS | Clinical Summary ---
Author Organization Unknown Care Team Providers Care Senior Clinician Name Role Phone NO LORA, HUBERT Unavailable Unavailable KHRIS PT, KENDALL Unavailable Unavailable Payers Payer Name Policy Type Policy Number Effective Date Expira tion Date MEDICARE - [place] - PD [id number] MEDICAID [facility] [id number] Problems Condition Name Condition Details Condition Category Status Onset Date Resolution Date Last Treatment Date Treating Clinician Comments ESSENTIAL (PRIMARY) HYPERTENSION Active 12-08 00:00: 00 SICK SINUS SYNDROME Active 06-04 00:00: 00 ATHSCL HEART DISEASE OF [place] CORONARY ARTERY W/O ANG PCTRS Active 06-04 00:00: 00 TYPE 2 DIABETES MELLITUS WITH DIABETIC NEUROPATHY, UNSP Active 06-04 00:00: 00 HYPERLIPIDEM IA, UNSPECIFIED Active 06-04 00:00: 00 UNSP DEMENTIA, UNSP SEVERITY, WITHOUT BEH/PSYCH/MO OD/ANX Active 06-04 00:00: 00 GOUT, UNSPECIFIED Active 06-04 00:00: 00 GASTRO-ESOPH AGEAL REFLUX DISEASE WITHOUT ESOPHAGITIS Active 06-04 00:00: 00 HYPOTHYROIDI SM, UNSPECIFIED Active 06-04 00:00: 00 NICOTINE DEPENDENCE, UNSPECIFIED, UNCOMPLICATE D Active 06-04 00:00: 00 CARE HOME (CURRENT) USE OF INSULIN Active 06-04 00:00: 00 PRESENCE OF CARDIAC PACEMAKER Active 06-04 00:00: 00 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 ICS/ANTIPLAT ELETS Active 06-04 00:00: 00 Allergies, Adverse Reactions, Alerts Allergy Name Allergy Type Status Severity Reaction(s) Onset Date Inactive Date Treating Clinician Comments ROSUVASTATIN Propensity to adverse reactions Active 12-11 08:09: 29 SULFA MEDS Propensity to adverse reactions Active 12-11 08:09: 51 SIMVASTATIN Propensity to adverse reactions Active 12-11 08:10: 20 SERTRALINE Propensity to adverse reactions Active 12-11 08:10: 38 REPAGLINIDE ORAL Propensity to adverse reactions Active 12-11 08:10: 50 PIOGLITAZONE Propensity to adverse reactions Active 12-11 08:12: 12 PENICILLIN AND DERIVATIVES Propensity to adverse reactions Active 12-11 08:12: 33 OXYCODONE HYDROCHLORID E Propensity to adverse reactions Active 12-11 08:12: 50 METFORMIN HCL/ER Propensity to adverse reactions Active 12-11 08:14: 11 LEVOFLOXACIN HYDRATE Propensity to adverse reactions Active 12-11 08:14: 24 CITALOPRAM Propensity to adverse reactions Active 12-11 08:15: 01 CEPHALEXIN Propensity to adverse reactions Active 12-11 08:15: 42 ATORVASTATIN Propensity to adverse reactions Active 12-11 08:16: 45 AZITHROMYCIN Propensity to adverse reactions Active 12-11 08:16: 55 CIPROFLOXACI N TOPICAL (NOT ORAL) Propensity to adverse reactions Active 12-11 08:35: 46 CEFUROXIME AXETIL Propensity to adverse reactions Active 12-11 08:36: 04 CEFTRIAXONE Propensity to adverse reactions Active 12-11 08:36: 30 Medications Ordered Medication Name Filled Medication Name Start Date Stop Date Current Medication? Ordering Clinician Indication Dosage Frequency Signature (SIG) Comments Components allopurinol 100 mg tablet 11-21 00:00: 00 11-09 23:59 :00 No [id number] 1 tablet EVERY DAY 1 tablet EVERY DAY (route: oral) Med Classific ation: Gout and Hyperuric emia Therapy amlodipine 2.5 mg tablet 11-21 00:00: 00 11-09 23:59 :00 No [id number] 1 tablet EVERY DAY 1 tablet EVERY DAY (route: oral) Med Classific ation: Cardiovas cular Therapy Agents cyanocobala min (vit B-12) 1,000 mcg tablet 12-08 00:00: 00 11-09 23:59 :00 No [id number] 1 tablet DAILY 1 tablet DAILY (route: oral) Med Classific ation: Electroly te Balance-N utritiona l Products donepezil 5 mg tablet 12-08 00:00: 00 11-09 23:59 :00 No [id number] 1 tablet DAILY 1 tablet DAILY (route: oral) Med Classific ation: Cognitive Disorder Therapy famotidine 40 mg tablet 12-08 00:00: 00 11-09 23:59 :00 No [id number] 1 tablet DAILY 1 tablet DAILY (route: oral) Med Classific ation: Gastroint estinal Therapy Agents levothyroxi ne 100 mcg tablet 12-08 00:00: 00 11-09 23:59 :00 No [id number] 1 tablet DAILY 1 tablet DAILY (route: oral) Med Classific ation: Endocrine lisinopril 40 mg tablet 12-08 00:00: 00 11-09 23:59 :00 No [id number] 1 tablet DAILY 1 tablet DAILY (route: oral) Med Classific ation: Cardiovas cular Therapy Agents Plavix 75 mg tablet 12-08 00:00: 00 11-09 23:59 :00 No [id number] 1 tablet DAILY 1 tablet DAILY (route: oral) Med Classific ation: Hematolog ical Agents pregabalin 100 mg capsule 12-08 00:00: 00 11-09 23:59 :00 No [id number] 1 capsule 2 TIMES DAILY 1 capsule 2 TIMES DAILY (route: oral) Med Classific ation: Central Nervous System Agents rosuvastati n 20 mg tablet 12-08 00:00: 00 11-09 23:59 :00 No [id number] 1 mg DAILY 1 mg DAILY (route: oral) Med Classific ation: Cardiovas cular Therapy Agents Tresiba FlexTouch U-200 insulin 200 unit/mL (3 mL) subcutaneou s pen 12-08 00:00: 00 11-09 23:59 :00 No [id number] 18 unit EVERY PM 18 unit EVERY PM (route: subcutaneo us) Med Classific ation: Endocrine metoprolol succinate ER 25 mg tablet,exte nded release 24 hr 12-08 00:00: 00 11-09 23:59 :00 No [id number] 2 tablet DAILY 2 tablet DAILY (route: oral) Med Classific ation: Cardiovas cular Therapy Agents Vital Signs Vital Name Observation Time Observation Value Commen ts Temperature 2021-12-27 10:36:00.000 98.6 [degF] Temperature 2021-12-22 15:41:00.000 97.9 [degF] Temperature 2021-12-08 15:49:00.000 97.6 [degF] Pulse 2021-12-27 10:36:00.000 64 /min Pulse 2021-12-22 15:41:00.000 68 /min Pulse 2021-12-20 14:17:00.000 72 /min Pulse 2021-12-13 14:45:00.000 69 /min Pulse 2021-12-08 15:49:00.000 62 /min O2 Saturation (%) 2021-12-22 15:41:00.000 97 % O2 Saturation (%) 2021-12-20 14:17:00.000 96 % O2 Saturation (%) 2021-12-13 14:45:00.000 96 % O2 Saturation (%) 2021-12-08 15:49:00.000 96 % Respirations 2021-12-27 10:36:00.000 14 /min Respirations 2021-12-22 15:41:00.000 14 /min Respirations 2021-12-20 14:17:00.000 14 /min Respirations 2021-12-13 14:45:00.000 14 /min Respirations 2021-12-08 15:49:00.000 14 /min Systolic Blood Pressure 2021-12-27 10:36:00.000 158 mm [Hg] Systolic Blood Pressure 2021-12-22 15:41:00.000 158 mm [Hg] Systolic Blood Pressure 2021-12-20 14:17:00.000 150 mm [Hg] Systolic Blood Pressure 2021-12-13 14:45:00.000 160 mm [Hg] Systolic Blood Pressure 2021-12-08 15:49:00.000 160 mm [Hg] Diastolic Blood Pressure 2021-12-27 10:36:00.000 74 mm [Hg] Diastolic Blood Pressure 2021-12-22 15:41:00.000 86 mm [Hg] Diastolic Blood Pressure 2021-12-20 14:17:00.000 76 mm [Hg] Diastolic Blood Pressure 2021-12-13 14:45:00.000 80 mm [Hg] Diastolic Blood Pressure 2021-12-08 15:49:00.000 84 mm [Hg] Plan of Treatment Planned Activity Planned Date Details Comments Future Scheduled Test PHYSICAL T HERAPIST TO EVALUATE PATIENT SECONDARY TO FUNCTIONAL DEFICITS/SAFETY CONCERNS. [code = PHYSICAL THERAPIST TO EVALUATE PATIENT SECONDARY TO FUNCTIONAL DEFICITS/SAFETY CONCERNS.] Future Scheduled Test PHYSICAL T HERAPY ADMISSION VISIT 12/08/21 RECENT HOSPITALIZATION/INPATIENT ADMISSION RELATED TO: PATIENT IS A [place] 76 YO CONFUSED FEMALE S/P HOSPITALIZATION 12/06-12/08/21 FOR DIZZINESS AND CHEST PAIN. HOSPITAL TESTS REVEALED ABNORMAL STRESS TEST. PATIENT REPORTS 3 BACK SURGERIES. PATIENT REPORTS SMOKES 3-4 CIGARETTES A DAY, STAFF REPORTS 8-10 CIGARETTES A DAY. DAY PRIOR TO HOSPITALIZATION, PATIENT WAS ATTENDING [facility], CHAIN SMOKED 1 PACK OF CIGARETTES IN 3-4 HOURS. PAST MEDICAL HISTORY: PAST MD HX: DEMENTIA, DM ON INSULIN, [place], PACEMAKER 3 YEARS AGO, HYPERTENSION, HLD PATIENT'S PCP IS MD JEFF SARABIA, NEXT FACE TO FACE 12/12/21. THIS THERAPIST CALLED MD SARABIA'S OFFICE TO CONFIRM MD DIAGNOSES, REQUEST MD SARABIA SIGN FOR PHYSICAL THERAPY ORDERS, NEW OR CHANGED MEDICATIONS PERTINENT TO THE PLAN OF CARE: LEVOTHYROXINE HELD 3 DAYS, RESUME 12/09/21 AT 100 MG DAILY CRESTOR INCREASED TO 20 MG DAILY NORVASC INCREASED TO 5 MG DAILY PATIENT LIVING SITUATION/CAREGIVER STATUS: PATIENT LIVES AT [facility], SHARES LARGE ROOM WITH TWO OTHER WOMEN. 10 STEPS WITH RAIL TO BASEMENT TO DINING ROOM AND TO ACCESS SMOKING AREA (ELEVATOR AVAIL), 4 STAIRS WITH RAIL FROM BASEMENT TO ACCESS SMOKING AREA. RECENT FALLS: NONE PRIOR LEVEL OF FUNCTION: PATIENT INDEPENDENT WITH TRANSFERS AMBULATION AND STAIR NEGOTIATION, ASSIST WITH SHOWERS CURRENT LEVEL OF FUNCTION: DME: GRAB BARS IN TOILET, TUB SEAT, HAND HELD SHOWER, GRAB BAR IN SHOWER PATIENT TRANSFERS AND AMB 20', 50 WITHOUT AD WITH SUPERVISION PATIENT IS CONSIDERED A HIGH FALL RISK DUE TO TUG SCORE OF 19 SEC. STATIC STAND = GOOD+, DYNAMIC STAND = FAIR-. BILAT LE ROM WFL, BILAT LE STRENGTH HIPS 3+/5, KNEES AND ANKLES 4-/5 PATIENT PRESENTS WITH THE FOLLOWING DEFICITS BACK PAIN, BILATERAL EXTREMITY WEAKNESS, DECREASED ENDURANCE RESULTING IN DIFFICULTIES WITH TRANSFERS AMBULATION AND STAIRS. PATIENT WILL BENEFIT FROM CONTINUED PHYSICAL THERAPY TO ADDRESS DEFICITS, IMPROVE ABILITY TO TRANSFER AND AMB, MAX SAFETY IN HOME ENVIRONMENT. PATIENT AND CAREGIVER REQUIRE EDUCATION FOR SAFETY. PATIENT REQUIRES INSTRUCTION IN THER EXER TO INCREASE BILAT LE STRENGTH AND ENDURANCE, ESTABLISH BILAT LE HEP. PATIENT ALSO REQUIRES FUNCTIONAL ACTIVITY INSTRUCTION TO IMPROVE ABILITY WITH TRANSFERS, AMBULATION AND STAIRS NEGOTIATION. ADDITIONAL DISCIPLINES NEEDED OR DECLINED ORDERED SERVICES: NA PLAN: 1XWK, 2X2WKS, 1XWK FOR TRANSFER AND GAIT TRAINING, BILAT LOWER EXTREMITY STRE [code = PHYSICAL THERAPY ADMISSION VISIT 12/08/21 RECENT HOSPITALIZATION/INPATIENT ADMISSION RELATED TO: PATIENT IS A [place] 76 YO CONFUSED FEMALE S/P HOSPITALIZATION 12/06-12/08/21 FOR DIZZINESS AND CHEST PAIN. HOSPITAL TESTS REVEALED ABNORMAL STRESS TEST. PATIENT REPORTS 3 BACK SURGERIES. PATIENT REPORTS SMOKES 3-4 CIGARETTES A DAY, STAFF REPORTS 8-10 CIGARETTES A DAY. DAY PRIOR TO HOSPITALIZATION, PATIENT WAS ATTENDING [facility], CHAIN SMOKED 1 PACK OF CIGARETTES IN 3-4 HOURS. PAST MEDICAL HISTORY: PAST MD HX: DEMENTIA, DM ON INSULIN, [place], PACEMAKER 3 YEARS AGO, HYPERTENSION, HLD PATIENT'S PCP IS MD JEFF SARABIA, NEXT FACE TO FACE 12/12/21. THIS THERAPIST CALLED MD SARABIA'S OFFICE TO CONFIRM MD DIAGNOSES, REQUEST MD SARABIA SIGN FOR PHYSICAL THERAPY ORDERS, NEW OR CHANGED MEDICATIONS PERTINENT TO THE PLAN OF CARE: LEVOTHYROXINE HELD 3 DAYS, RESUME 12/09/21 AT 100 MG DAILY CRESTOR INCREASED TO 20 MG DAILY NORVASC INCREASED TO 5 MG DAILY PATIENT LIVING SITUATION/CAREGIVER STATUS: PATIENT LIVES AT [facility], SHARES LARGE ROOM WITH TWO OTHER WOMEN. 10 STEPS WITH RAIL TO BASEMENT TO DINING ROOM AND TO ACCESS SMOKING AREA (ELEVATOR AVAIL), 4 STAIRS WITH RAIL FROM BASEMENT TO ACCESS SMOKING AREA. RECENT FALLS: NONE PRIOR LEVEL OF FUNCTION: PATIENT INDEPENDENT WITH TRANSFERS AMBULATION AND STAIR NEGOTIATION, ASSIST WITH SHOWERS CURRENT LEVEL OF FUNCTION: DME: GRAB BARS IN TOILET, TUB SEAT, HAND HELD SHOWER, GRAB BAR IN SHOWER PATIENT TRANSFERS AND AMB 20', 50 WITHOUT AD WITH SUPERVISION PATIENT IS CONSIDERED A HIGH FALL RISK DUE TO TUG SCORE OF 19 SEC. STATIC STAND = GOOD+, DYNAMIC STAND = FAIR-. BILAT LE ROM WFL, BILAT LE STRENGTH HIPS 3+/5, KNEES AND ANKLES 4-/5 PATIENT PRESENTS WITH THE FOLLOWING DEFICITS BACK PAIN, BILATERAL EXTREMITY WEAKNESS, DECREASED ENDURANCE RESULTING IN DIFFICULTIES WITH TRANSFERS AMBULATION AND STAIRS. PATIENT WILL BENEFIT FROM CONTINUED PHYSICAL THERAPY TO ADDRESS DEFICITS, IMPROVE ABILITY TO TRANSFER AND AMB, MAX SAFETY IN HOME ENVIRONMENT. PATIENT AND CAREGIVER REQUIRE EDUCATION FOR SAFETY. PATIENT REQUIRES INSTRUCTION IN THER EXER TO INCREASE BILAT LE STRENGTH AND ENDURANCE, ESTABLISH BILAT LE HEP. PATIENT ALSO REQUIRES FUNCTIONAL ACTIVITY INSTRUCTION TO IMPROVE ABILITY WITH TRANSFERS, AMBULATION AND STAIRS NEGOTIATION. ADDITIONAL DISCIPLINES NEEDED OR DECLINED ORDERED SERVICES: NA PLAN: 1XWK, 2X2WKS, 1XWK FOR TRANSFER AND GAIT TRAINING, BILAT LOWER EXTREMITY STRE] Future Scheduled Test PHYSICAL T HERAPIST TO ASSESS BEST PRACTICE INTERVENTIONS TO ASSIST PATIENTS TO IMPROVE OR STABILIZE MEDICAL STATUS AND PREVENT RE-HOSPITALIZATION. MEASURES INCLUDING REVIEW AND IDENTIFICATION OF CONCERNS FOR THE FOLLOWING AREAS: DEPRESSION, DRUG REGIMEN, DIABETIC FOOT CARE, ENVIRONMENTAL SAFETY ISSUES AND FALLS, PRESSURE ULCERS, PAIN, AND DISEASE MANAGEMENT. [code = PHYSICAL THERAPIST TO ASSESS BEST PRACTICE INTERVENTIONS TO ASSIST PATIENTS TO IMPROVE OR STABILIZE MEDICAL STATUS AND PREVENT RE-HOSPITALIZATION. MEASURES INCLUDING REVIEW AND IDENTIFICATION OF CONCERNS FOR THE FOLLOWING AREAS: DEPRESSION, DRUG REGIMEN, DIABETIC FOOT CARE, ENVIRONMENTAL SAFETY ISSUES AND FALLS, PRESSURE ULCERS, PAIN, AND DISEASE MANAGEMENT.] Future Scheduled Test PHYSICAL T HERAPY TO ESTABLISH /UPGRADE/DOWNGRADE THERAPEUTIC EXERCISE PROGRAM AND INSTRUCT PATIENT/CAREGIVER ON EXERCISE PRECAUTIONS WITH WRITTEN HOME PROGRAM. MAY INCLUDE PROM, AAROM, AROM, RROM APPROPRIATE TO IMPROVE FUNCTIONAL STRENGTH AND RANGE OF MOTION. [code = PHYSICAL THERAPY TO ESTABLISH /UPGRADE/DOWNGRADE THERAPEUTIC EXERCISE PROGRAM AND INSTRUCT PATIENT/CAREGIVER ON EXERCISE PRECAUTIONS WITH WRITTEN HOME PROGRAM. MAY INCLUDE PROM, AAROM, AROM, RROM APPROPRIATE TO IMPROVE FUNCTIONAL STRENGTH AND RANGE OF MOTION.] Future Scheduled Test PHYSICAL T HERAPY TO INSTRUCT PATIENT/CAREGIVER ON SAFE TRANSFER TECHNIQUES USING PROPER BODY MECHANICS AND EQUIPMENT. [code = PHYSICAL THERAPY TO INSTRUCT PATIENT/CAREGIVER ON SAFE TRANSFER TECHNIQUES USING PROPER BODY MECHANICS AND EQUIPMENT.] Future Scheduled Test PHYSICAL T HERAPY TO INSTRUCT PATIENT/CAREGIVER ON GAIT TRAINING TECHNIQUES USING APPROPRIATE ASSISTIVE DEVICE, PROPER BODY MECHANICS TO IMPROVE MOBILITY, AND PREVENT INJURY OF PATIENT AND/OR CAREGIVER. [code = PHYSICAL THERAPY TO INSTRUCT PATIENT/CAREGIVER ON GAIT TRAINING TECHNIQUES USING APPROPRIATE ASSISTIVE DEVICE, PROPER BODY MECHANICS TO IMPROVE MOBILITY, AND PREVENT INJURY OF PATIENT AND/OR CAREGIVER.] Future Scheduled Test PHYSICAL T HERAPY TO INSTRUCT PATIENT/CAREGIVER ON BALANCE AND BALANCE STRATEGIES TO IMPROVE SAFE MOBILITY AND REDUCE RISK FOR FALL AND INJURY INCLUDING PARTICIPATION IN [facility] BALANCE SPECIALTY PROGRAM [code = PHYSICAL THERAPY TO INSTRUCT PATIENT/CAREGIVER ON BALANCE AND BALANCE STRATEGIES TO IMPROVE SAFE MOBILITY AND REDUCE RISK FOR FALL AND INJURY INCLUDING PARTICIPATION IN [facility] SPECIALTY PROGRAM] Future Scheduled Test PHYSICAL T HERAPY TO OBTAIN O2 SATS PRN VIA PULSE OXIMETER INDICATED FOR SHORTNESS OF BREATH, FATIGUE, WEAKNESS, ACTIVITY INTOLERANCE, AND/OR BASELINE MEASUREMENT FOR THERAPY TREATMENT. [code = PHYSICAL THERAPY TO OBTAIN O2 SATS PRN VIA PULSE OXIMETER INDICATED FOR SHORTNESS OF BREATH, FATIGUE, WEAKNESS, ACTIVITY INTOLERANCE, AND/OR BASELINE MEASUREMENT FOR THERAPY TREATMENT.] Future Scheduled Test PHYSICAL T HERAPY FOR OBSERVATION AND ASSESSMENT OF PAIN, EFFECTIVENESS OF PAIN MANAGEMENT REGIMEN AND SKILLED TEACHING RELATED TO PAIN MANAGEMENT. THERAPIST TO REPORT INCREASED PAIN LEVEL TO PHYSICIAN FOR PROMPT INTERVENTION. [code = PHYSICAL THERAPY FOR OBSERVATION AND ASSESSMENT OF PAIN, EFFECTIVENESS OF PAIN MANAGEMENT REGIMEN AND SKILLED TEACHING RELATED TO PAIN MANAGEMENT. THERAPIST TO REPORT INCREASED PAIN LEVEL TO PHYSICIAN FOR PROMPT INTERVENTION.] Future Scheduled Test PHYSICAL T HERAPY TO ASSESS AND RECOMMEND HOME SAFETY ADAPTATIONS AND EDUCATE PATIENT /CAREGIVER ON FALL PREVENTION STRATEGIES. [code = PHYSICAL THERAPY TO ASSESS AND RECOMMEND HOME SAFETY ADAPTATIONS AND EDUCATE PATIENT /CAREGIVER ON FALL PREVENTION STRATEGIES.] Goal 2021-12-27 Patient Goal - I WANT TO GO OUTSIDE AND SMOKE. Goal Provider Goal - PHYSICAL THERAPY EVALUATION TO BE COMPLETED WITH RECOMMENDATIONS AND/OR WRITTEN TREATMENT PLAN OF CARE ESTABLISHED FOR THE PHYSICIANS SIGNATURE Goal Provider Goal - A PLAN OF CARE WILL BE ESTABLISHED THAT MEETS PATIENT'S SKILLED NEEDS AND INCLUDES PATIENT GOAL FOR HOME HEALTH. Goal Provider Goal - PATIENT/CAREGIVER VERBALIZES UNDERSTANDING OF THE INITIAL BEST PRACTICE RECOMMENDATIONS. PHYSICIAN TO BE NOTIFIED APPROPRIATE FOR ANY CHANGES OR COMPLICATIONS. Goal Provider Goal - PATIENT/CAREGIVER WILL PERFORM THERAPEUTIC EXERCISE/S AND DEMONSTRATE PARTICIPATION IN A HOME PROGRAM WITH BILAT LE STRENGTH IMPROVED TO 4+/5 TO IMPROVE FUNCTION OF AMBULATION. Goal Provider Goal - PATIENT/CAREGIVER WILL DEMONSTRATE SAFE INDEP TRANSFERS FROM ALL SURFACES EXCEPT TUB (REQUIRES SUPERVISION) USING APPROPRIATE BODY MECHANICS TO IMPROVE FUNCTION OF ADLS. Goal Provider Goal - PATIENT/CAREGIVER WILL DEMONSTRATE IMPROVED GAIT TECHNIQUES TO MINIMIZE RISK OF INJURY AND DEMO ABILITY TO AMB 150 INDEP AND NEGOTIATE 4 STAIRS WITH RAIL INDEP TO INCREASE FUNCTION OF ACCESSING OUTDOOR AREA. Goal Provider Goal - PATIENT/CAREGIVER WILL DEMONSTRATE IMPROVED BALANCE AND REDUCE THE RISK OF FALLS AND INJURY WITH DYNAMIC STAND IMPROVED TO GOOD+ TO IMPROVE FUNCTION OF AMBULATION. Goal Provider Goal - PATIENT O2 SATURATION LEVEL WILL REMAIN WITHIN PARAMETERS TO IMPROVE FUNCTION OF AMBULATION. Goal Provider Goal - INCREASED PAIN OR INEFFECTIVE PAIN CONTROL MEASURES WILL BE IDENTIFIED AND PROMPTLY REPORTED TO THE PHYSICIAN. PATIENT/CAREGIVER WILL DEMONSTRATE EFFECTIVE PAIN MANAGEMENT TO IMPROVE FUNCTION OF ADLS. Goal Provider Goal - PATIENT/CAREGIVER WILL DEMONSTRATE/VERBALIZE UNDERSTANDING OF RECOMMENDATIONS TO INCREASE SAFETY IN THE HOME AND FALL PREVENTION TO IMPROVE FUNCTION OF AMBULATION. Reason for Visit INDEPENDENT IN THE HOME Encounters Start Date/Time End Date/Time Encounter Type Admission Type Attending [facility] Care Department Encounter ID Discharge Date Discharge Status Discharge Condition Discharge Reason Percent Goals Met 2021-12-08 00:00:00 2021-12-27 00:00:00 Outpatient NEW ADMISSION KENDALL PINEDO [facility] [id number] 0727-07-26 00:00:00 DISCHARGED /TRANSFERR ED TO ANOTHER TYPE OF HEALTH CARE INSTITUTIO N NOT DEFINED ELSEWHERE IN THIS CODE LIST INDEPENDEN T IN THE HOME GOALS MET ( ONLY) 100.00
== END 2024-05-06 14:43 | disposition home or self-care (01) ==
PROVIDERS: PCP Internal Medicine; Visit Provider Internal Medicine
DX: I10 Essential (primary) hypertension (principal); E11.9 Type 2 diabetes mellitus without complications; E78.5 Hyperlipidemia, unspecified; E03.9 Hypothyroidism, unspecified; I71.40 Abdominal aortic aneurysm, without rupture, unspecified; I21.9 Acute myocardial infarction, unspecified; F03.90 Unspecified dementia, unspecified severity, without behavioral disturbance, psychotic disturbance, mood disturbance, and anxiety

== ENCOUNTER → 2024-05-06 13:34 | Outpatient (BNVA) | payer MEDICARE, MEDICAID, SELFPAY | PROVIDERS: PCP Internal Medicine; Visit Provider Internal Medicine | DX: I10 Essential (primary) hypertension (principal); E11.9 Type 2 diabetes mellitus without complications; E78.5 Hyperlipidemia, unspecified; E03.9 Hypothyroidism, unspecified; I21.9 Acute myocardial infarction, unspecified; I71.40 Abdominal aortic aneurysm, without rupture, unspecified; F03.90 Unspecified dementia, unspecified severity, without behavioral disturbance, psychotic disturbance, mood disturbance, and anxiety | CPT/HCPCS: 96127 ==

== ENCOUNTER 2024-05-10 07:38 | Emergency (ER) | payer MEDICARE, MEDICAID, SELFPAY ==
--- NOTE | ~2024-05-10 | CT_ITS ---
EXAMINATION: CT ABDOMEN AND PELVIS WITHOUT CONTRAST CLINICAL INFORMATION: Hematuria. Abdominal pain. COMPARISON: CT abdomen and pelvis with IV contrast 04/19/2024 TECHNIQUE: Multidetector volumetric imaging was performed from the superior aspect of the liver through the pubic symphysis. Sagittal and coronal reformatted images were obtained on the technologist's workstation. This CT examination was performed using dose optimization techniques as appropriate, variously including the following: *Automated exposure control *Adjustment of mA and/or kV according to patient size (this includes techniques or standardized protocols for targeted exams where dose is matched to indication/reason for exam; i.e. extremities or head) *Use of iterative reconstruction technique DLP: 471 mGy-cm FINDINGS: LUNG BASES: The visualized lung bases are unremarkable. The heart size is normal. There are pacer electrodes in right atrium and right ventricle. LIVER, GALLBLADDER, AND BILIARY TREE: The liver is normal in size, shape, and attenuation. No focal hepatic lesion or biliary ductal dilatation is present. The gallbladder is unremarkable with no evidence of radiopaque gallstones, gallbladder wall thickening, or obvious pericholecystic inflammatory changes. PANCREAS: Unremarkable. SPLEEN: Unremarkable. ADRENAL GLANDS: There is mild bilateral adrenal gland thickening similar previous study. KIDNEYS AND URETERS: The kidneys are normal in size, shape, and attenuation. There is a left internal ureteral stent similar previous study. 2 radiopaque calculi upper pole right kidney, upper mid pole left kidney and a nonobstructive 4 mm radiopaque calculi lower pole calyx left kidney seen. There is mild fullness of the left kidney pelvis radiopaque calculi seen along the course of left internal ureteral stent. There is no right-sided hydronephrosis or ureteral calculi. BLADDER: Unremarkable. GASTROINTESTINAL TRACT: There is a large amount of impacted stool in the sigmoid colon and rectum.. There is moderate stool in the rest of the colon. The small bowel loops are normal caliber. Appendix is likely normal. No inflammatory process of free air, fluid or free fluid seen. ABDOMINAL WALL: There are small round opacities in anterior abdominal wall likely injection granulomas. There is no evidence of hernia. LYMPH NODES: Normal. VASCULAR: Fusiform aneurysmal dilatation of mid abdominal aorta measuring 4 cm noted midabdomen. The distal abdominal aorta and common iliac arteries are normal caliber. PELVIC VISCERA: The uterus is surgically absent. No adnexal mass or free fluid. No abnormal pelvic lymph nodes. Solitary phlebolith in left pelvis. OSSEOUS STRUCTURES: Degenerative disc changes and vacuum disc phenomena 5-S1 disc level. There is a rudimentary S1-S2 disc. CT/CT abdomen pelvis wo IV con IMPRESSION: 1. Bilateral radiopaque renal calculi. There is a left internal ureteral stent with mild fullness of the left kidney pelvis. No radiopaque calculi seen along the course of ureteral stent 2. Large amount of impacted stool in the sigmoid colon and rectum with moderate stool in the rest of the colon. 3. 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 Stable 4. Mild bilateral adrenal gland thickening similar to previous study. Fleischner guidelines were followed. Electronically signed by: John Gerber MD 05/10/2024 09:06 AM [facility]ALKER [facility]GER
[2024-05-10 07:53] VITALS: BP 168/92; PULSE 59; O2SAT 97; BMI 25.9
[2024-05-10 08:05] VITALS: BP 137/64; PULSE 60; RESP 16; TEMP 36.6; O2SAT 95
--- NOTE | 2024-05-10 08:20 | ED.FEMALEGU ---
HPI - Female Genitourinary General Chief complaint: Urogenital-Female Stated complaint: BLOOD IN URINE LOWER ABD PAIN Time Seen by Provider: 05/10/24 07:49 Source: patient and EMS Mode of arrival: ambulatory Limitations: no limitations History of Present Illness ED Provider: COLE [place] HPI Narrative: This is an 78-year-old female past medical history significant for frequent UTIs, diabetes, kidney stones, GERD, dementia, hypothyroidism, hypertension, hyperlipidemia, presenting to the emergency department with blood in urine since yesterday she also reports she notes that she is having some burning when she urinates. She also feels like she has been getting episodes of lightheadedness intermittently. Denies fevers, chills, chest pain, shortness of breath, flank pain, changes in bowel habits, vision changes, weakness, recent illness. Related Data Home Medications ?Medication ?Instructions ?Recorded ?Confirmed lisinopril 40 mg tablet 40 mg PO DAILY 11/04/20 05/06/24 rosuvastatin 20 mg tablet 20 mg PO BEDTIME 12/14/21 05/06/24 acetaminophen 325 mg tablet 650 mg PO Q4H PRN Pain 04/16/24 05/06/24 aluminum-mag hydroxide-simethicone 30 ml PO Q4H PRN GI UPSET 04/16/24 05/06/24 200 mg-200 mg-20 mg/5 mL oral susp (Mintox) glycerin (adult) 1 supp AK DAILY PRN Constipation 04/16/24 05/06/24 loperamide 2 mg capsule 2 mg PO Q4H PRN LOOSE STOOLS 04/16/24 05/06/24 magnesium hydroxide 400 mg/5 mL 30 ml PO DAILY PRN Constipation 04/16/24 05/06/24 oral suspension (Milk of Magnesia) sennosides 8.6 mg-docusate sodium 2 tab PO BID 04/16/24 05/06/24 50 mg tablet (Stool Softener-Laxative) vitamins A,C,U-smwv-zobhok 2,148 1 tab PO BID 04/16/24 05/06/24 mcg-113 mg-45 mg-17.4 mg tablet (PreserVision AREDS) Previous Rx's ?Medication ?Instructions ?Recorded blood-glucose meter (Atossa Geneticsuch #100 ea 09/01/20 Ultra2 Meter) insulin degludec 100 unit/mL (3 18 unit (0.18 mL) subcut BEDTIME 07/20/21 mL) subcutaneous pen (Tresiba #15 mL FlexTouch U-100 insulin) pyridoxine (vitamin B6) 100 mg 100 mg PO DAILY 90 days #90 tabs 09/27/21 tablet blood sugar diagnostic #100 ea 10/20/21 lancets 33 gauge (OneTouch Delica #100 ea 10/20/21 Lancets) pen needle, diabetic 33 gauge x #100 ea 11/18/2132 (Comfort EZ Pen [place]) cyanocobalamin (vitamin B-12) 1,000 mcg PO DAILY #30 tabs 12/30/21 1,000 mcg tablet blood sugar diagnostic (FreeStyle #100 ea 01/13/22 Lite Strips) cholecalciferol (vitamin D3) 125 125 mcg PO DAILY #90 caps 02/16/22 mcg (5,000 unit) capsule famotidine 40 mg tablet 40 mg PO DAILY #90 tabs 02/16/22 clopidogrel 75 mg tablet 75 mg PO DAILY #90 tabs 03/09/22 donepezil 5 mg tablet 5 mg PO BEDTIME #90 tabs 03/09/22 gabapentin 100 mg capsule 100 mg PO BID #180 caps 03/09/22 metoprolol succinate 25 mg 50 mg (2 x 25 mg) PO DAILY #90 tabs 03/09/22 tablet,extended release 24 hr allopurinol 100 mg tablet 100 mg PO DAILY 90 days #90 tabs 03/27/22 aspirin 81 mg capsule 81 mg PO DAILY #30 caps 06/26/22 polyethylene glycol 3350 17 17 g PO BID PRN constipation #238 11/10/22 gram/dose oral powder (Miralax) grams amlodipine 5 mg tablet 5 mg PO DAILY #90 tabs 05/06/24 phenazopyridine 100 mg tablet 200 mg (2 x 100 mg) PO TID 2 days 05/10/24 (Pyridium) #6 tabs Allergies Allergy/AdvReac Type Severity Reaction Status Date / Time atorvastatin Allergy Unknown pt does Verified 05/10/24 07:55 not know azithromycin Allergy Unknown pt does Verified 05/10/24 07:55 not know ceftriaxone Allergy Unknown pt does Verified 05/10/24 07:55 not know cephalexin Allergy Unknown pt does Verified 05/10/24 07:55 not know citalopram Allergy Unknown pt does Verified 05/10/24 07:55 not know levofloxacin Allergy Unknown pt does Verified 05/10/24 07:55 not know metformin Allergy Unknown pt does Verified 05/10/24 07:55 not know nitrofurantoin Allergy Unknown pt does Verified 05/10/24 07:55 not know oxycodone Allergy Unknown pt does Verified 05/10/24 07:55 not know penicillin V Allergy Unknown pt does Verified 05/10/24 07:55 not know pioglitazone Allergy Unknown pt does Verified 05/10/24 07:55 not know repaglinide Allergy Unknown pt does Verified 05/10/24 07:55 not know rosuvastatin [Crestor] Allergy Unknown pt does Verified 05/10/24 07:55 not know sertraline Allergy Unknown pt does Verified 05/10/24 07:55 not know simvastatin Allergy Unknown pt does Verified 05/10/24 07:55 not know sulfacetamide Allergy Unknown pt does Verified 05/10/24 07:55 not know aspirin Allergy Unknown Verified 05/10/24 07:55 Cefuroxime Sodium Allergy Unknown pt does Uncoded 05/10/24 07:55 not know Review of Systems Review of Systems: Yes all other systems are reviewed and are negative PMFSH Past Medical History Attestation statement: The following information was validated with the patient. Source: old records reviewed and nursing notes reviewed Medical History Bilateral kidney stones Annual physical exam HTN (hypertension) IDDM (insulin dependent diabetes mellitus) Diverticulitis Nephrolithiasis Cataract Hyperlipidemia Pacemaker Myocardial infarct Macular degeneration Nephrolithiasis Dementia Frequent UTI HTN (hypertension) Hypothyroid Diabetes Surgical History Status post lumbar spine surgery for decompression of spinal cord H/O left knee surgery Family History Family History Father Heart attack Mother Heart problem Heart attack Substance use disorder Social History Social History Household Members: Other Household Members Other:: lives in assisted living Housing: Assisted Living Facility Housing Other:: [facility] Do you presently have visiting nurse or other home services: No Alcohol intake: never Comment: pt will get oob without assistance. Patient Tobacco Use Status: Former Tobacco user Tobacco use type: Cigarette Cigarettes Per Day: 10.0 Years Smoked: 54 Smoked in Last 30 Days: No e-Cigarette/Vaping Use: Never Used Second Hand Smoke Exposure: No Use of substances other than those prescribed or required for medical reasons: No Advance Directives: Yes Advance Directives on File: Yes Advance Directives Date on File: 11/05/20 Do you have a plan to hurt others: No Plan Patient : No service: No Current occupational status: retired Cognitive needs: No Hearing needs: No Vision needs: Yes Physical Exam Vital Signs: Vital Signs: Last Vital Signs Temp 97.8 F 05/10/24 08:05 Pulse 60 05/10/24 08:05 Resp 16 05/10/24 08:05 BP 137/64 05/10/24 08:05 Pulse Ox 95 05/10/24 08:05 O2 Del Method Room Air 05/10/24 08:05 BMI result Body Mass Index 25.9 vss Appearance: Alert.? Oriented X3.? No acute distress.? Head: Normocephalic, atraumatic, no step-offs or deformities Eyes: Pupils equal, round and reactive to light.? Neck: Normal inspection.? Neck supple.? CVS: Normal heart rate and rhythm.? Pulses normal.? Respiratory: No respiratory distress.? Breath sounds normal.? Abdomen: Soft and nontender.? No CVA tenderness bilaterally Skin: Skin warm and dry.? Normal skin color.? Normal skin turgor.? Extremities: No lower extremity edema.? No calf ttp. 5/5 strength to bilateral upper and lower extremities Neuro: Oriented X 3.? No motor deficit.? No sensory deficit. CN 2-12 intact Course Reevaluation(s) Reevaluation #1: CBC unremarkable. Chemistry with no acute findings needing intervention. Patient's urine with moderate amount of leukocyte esterases and squamous epithelial cells present no bacteria. This is likely cystitis rather than urinary tract infection. Will wait for culture to result however will hold on starting antibiotics at this time. I looked up multiple cultures from the past all of which had no growth. CT abdomen pelvis with bilateral radiopaque renal calculi there is a left intrarenal ureteral stent with mild fullness of the left kidney pelvis no radiopaque calculi seen along the course of the ureteral stent large amount of impacted stool. Will give patient stool softeners at this time she does not complain of abdominal pain or difficulty having a bowel movement. 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 Will give patient Pyridium for discharge home. Will have her follow up with Urology. Nothing to be done acutely at this time. Time: 09:55 Medical Decision Making Medical Decision Making [facility] Narrative: 78-year-old female presents with blood in urine since yesterday, burning on urination. History of frequent UTIs. Upon chart review it appears as though patient has multiple antibiotic allergies it does not appear as though she is allergic to Levaquin although it says patient does not know and she does have an allergy to it she has received it on multiple occasions while in the hospital. Physical exam benign. Vital signs are stable. History and physical exam concerning for UTI versus cystitis. Less likely pyelonephritis. Will rule out metabolic derangements. Plan- labs, imaging, urine Differential Diagnosis Differential Diagnoses: The differential diagnosis associated with the presentation includes (History and physical exam concerning for UTI versus cystitis. Less likely pyelonephritis. Will rule out metabolic derangements.) Admission/Observation Consideration of admission/observation: Escalation of care including admission/observation considered Lab Data [facility] Lab Attestation statement: I reviewed the patient's lab results. 05/10/24 08:17 05/10/24 08:17 Labs: Lab Results 05/10/24 05/10/24 Range/Units 08:17 09:16 WBC 6.5 (4.8-10.8) X10*3/uL RBC 4.66 (4.20-5.50) X10*6/uL Hgb 13.5 (12.0-16.0) g/dl Hct 41.9 (37.0-47.0) % MCV 89.9 (80.0-98.0) fL MCH 29.0 (27.0-33.0) pg MCHC 32.2 (31.0-35.0) g/dl RDW 16.1 H (11.0-16.0) % Plt Count 212 (160-400) X10*3/uL MPV 9.8 (9.4-12.3) fL Immature Gran % (Auto) 0.3 (0.0-0.4) % Neut % (Auto) 65.8 (45-73) % Lymph % (Auto) 23.6 (20-40) % Page % (Auto) 7.0 (2-11) % Eos % (Auto) 2.5 (0-4) % Baso % (Auto) 0.8 (0-2) % Lymph # (Auto) 1.5 (1.2-4.9) X10*3/uL Page # (Auto) 0.5 (0.1-1.2) X10*3/uL Eos # (Auto) 0.2 (0.0-0.4) X10*3/uL Baso # (Auto) 0.1 (0.0-0.2) X10*3/uL Abs Immat Gran (auto) 0.02 (0.00-0.03) X10*3/uL Absolute Neuts (auto) 4.3 (2.0-8.3) x10*3/uL Absolute Nucleated RBC 0.000 (0.0-0.012) X10*3/uL Nucleated RBC % (auto) 0.0 (0.0-0.2) /100WBC Sodium 144 (135-145) mmol/L Potassium 4.1 (3.3-5.1) mmol/L Chloride 108 (96-108) mmol/L Carbon Dioxide 26 (22-29) mmol/L Anion Gap 14 (12-20) BUN 17 H (9-16) mg/dL Creatinine 0.77 (0.5-1.4) mg/dL Estim Creat Clear Calc 53.3 Estimated GFR > 60 Random Glucose 99 (60-115) mg/dL Calcium 9.2 D (8.4-10.2) mg/dL Magnesium 2.2 (1.6-2.6) mg/dL Total Bilirubin 0.3 (0.0-1.0) mg/dL AST 22 (5-31) U/L ALT 12 (0-31) U/L Alkaline Phosphatase 91 (39-117) U/L Total Protein 6.9 (6.5-8.0) g/dL Albumin 3.8 (3.5-5.0) g/dL Urine Color Other A Urine Appearance Hazy Urine pH 6.5 (5.0-9.0) Ur Specific [place] 1.015 (1.005-1.025) Urine Protein 100 (2+) H (Neg-Trace) mg/dL Urine Glucose (UA) Negative (Negative) mg/dL Urine Ketones Negative (Negative) mg/dL Urine Blood Large (3+) H (Negative) Urine Nitrite Negative (Negative) Ur Leukocyte Esterase Moderate (2+) H (Negative) Urine RBC >20 H (0-2) /HPF Urine WBC 6-10 (0-5) /HPF Ur Squamous Epith Cells 3-5 (0-2) /HPF Urine Bacteria None Seen (None Seen) Hyaline Casts 0-2 (0-2) /LPF Independent Interpretation I performed an independent interpretation of an: CT Scan (CT/CT abdomen pelvis wo IV con IMPRESSION: 1. Bilateral radiopaque renal calculi. There is a left internal ureteral stent with mild fullness of the left kidney pelvis. No radiopaque calculi seen along the course of ureteral stent 2. Large amount of impacted stool in the sigmoid colon and rectum ) Radiology Impression Discussion of test interpretation with radiology: I have reviewed the radiologist's reading. External Record Review External record reviewed: Office record, Outpatient record and Prior outpatient labs Prescription Management I considered prescription management with: Antibiotic Chronic Conditions Patient?s care impacted by: Diabetes, Hypertension and Other (see hpi ) Discharge Plan Discharge Clinical Impression: Cystitis, Constipation Patient Disposition: Home, Self-Care Instructions: Constipation (ED), Constipation (DC), High Fiber Diet (ED), Interstitial Cystitis (ED) Additional Instructions: Take your medications as prescribed. If you were prescribed antibiotics today, it is important that you take your medication to their entirety, do not skip any doses, do not finish them early. Follow-up with your primary care provider this week. Return to the emergency department with new or worsening symptoms. Such as fevers, chills, chest pain, shortness of breath, nausea, vomiting, dizziness, headache, vision changes, lethargy In case of emergency call 911 No bacteria noted in her urine unlikely this is a urinary infection this is likely cystitis or inflammation of the urinary bladder. Pyridium sent to your pharmacy for this. Please follow-up with the Urology. CT/CT abdomen pelvis wo IV con IMPRESSION: 1. Bilateral radiopaque renal calculi. There is a left internal ureteral stent with mild fullness of the left kidney pelvis. No radiopaque calculi seen along the course of ureteral stent 2. Large amount of impacted stool in the sigmoid colon and rectum with moderate stool in the rest of the colon. 3. 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 Stable 4. Mild bilateral adrenal gland thickening similar to previous study. Fleischner guidelines were followed. Prescriptions: New phenazopyridine [Pyridium] 100 mg tablet 200 mg PO TID 2 Days Qty: 6 0RF No Action (DME) blood-glucose meter [OneTouch Ultra2 Meter] [facility] [place] Instructions .ROUTE .MEDSUPPLY Qty: 100 3RF Rx Instructions: tid pyridoxine (vitamin B6) 100 mg tablet 100 mg PO DAILY 90 Days Qty: 90 3RF (DME) pen needle, diabetic [Comfort EZ Pen [place]] 33 gauge x 5/32 needle See Rx Instructions .Route Qty: 100 3RF Rx Instructions: As directed cyanocobalamin (vitamin B-12) 1,000 mcg tablet 1,000 mcg PO DAILY Qty: 30 8RF (DME) FreeStyle Lite Strips Strip See Rx Instructions .Route Qty: 100 5RF Rx Instructions: test blood sugar 3 times per day famotidine 40 mg tablet 40 mg PO DAILY Qty: 90 3RF cholecalciferol (vitamin D3) 125 mcg (5,000 unit) capsule 125 mcg PO DAILY Qty: 90 3RF donepezil 5 mg tablet 5 mg PO BEDTIME Qty: 90 3RF metoprolol succinate 25 mg tablet extended release 24 hr 50 mg PO DAILY Qty: 90 3RF gabapentin 100 mg capsule 100 mg PO BID Qty: 180 3RF clopidogrel 75 mg tablet 75 mg PO DAILY Qty: 90 3RF allopurinol 100 mg tablet 100 mg PO DAILY 90 Days Qty: 90 1RF polyethylene glycol 3350 [Miralax] 17 gram/dose powder 17 g PO BID PRN (Reason: constipation) Qty: 238 0RF Rx Instructions: If no BM x 3 days lisinopril 40 mg Tablet 40 mg PO DAILY aspirin 81 mg capsule 81 mg PO DAILY Qty: 30 0RF acetaminophen 325 mg Tablet 650 mg PO Q4H PRN (Reason: Pain) loperamide 2 mg Capsule 2 mg PO Q4H PRN (Reason: LOOSE STOOLS) Rx Instructions: administer after each loose stool until symptoms controlled; do not exceed 8 mg per 24 hrs sennosides-docusate sodium [Stool Softener-Laxative] 8.6-50 mg tablet 2 tab PO BID magnesium hydroxide [Milk of Magnesia] 400 mg/5 mL Suspension 30 ml PO DAILY PRN (Reason: Constipation) alum-mag hydroxide-simeth [Mintox] 200-200-20 mg/5 mL Suspension 30 ml PO Q4H PRN (Reason: GI UPSET) Rx Instructions: administer between meals and at bedtime glycerin (adult) Suppository 1 supp AK DAILY PRN (Reason: Constipation) PreserVision AREDS 2,148 mcg-113 mg-45 mg-17.4mg tablet 1 tab PO BID Tresiba FlexTouch U-100 100 unit/mL (3 mL) insulin pen 18 unit subcut BEDTIME Qty: 15 4RF rosuvastatin 20 mg tablet 20 mg PO BEDTIME (DME) lancets [OneTouch Delica Lancets] 33 gauge misc See Rx Instructions .ROUTE .MEDSUPPLY Qty: 100 5RF Rx Instructions: TID (DME) blood sugar diagnostic Strip See Rx Instructions .ROUTE .MEDSUPPLY Qty: 100 4RF Rx Instructions: tid amlodipine 5 mg tablet 5 mg PO DAILY Qty: 90 0RF Referrals: [facility] [Provider Group] - 2 days Print Language: Slovenian
[2024-05-10 08:22] LABS: MANUAL DIFF FLAG NO
[2024-05-10 08:24] LABS: Basophils Absolute Auto 0.1 X10*3/uL (0.0-0.2); Basophils Percent Auto 0.8 % (0-2); Eosinophils Absolute Auto 0.2 X10*3/uL (0.0-0.4); Eosinophils Percent Auto 2.5 % (0-4); Hematocrit 41.9 % (37.0-47.0); Hemoglobin 13.5 g/dl (12.0-16.0); Imm Gran Abs Auto 0.02 X10*3/uL (0.00-0.03); Imm Gran Pct Auto 0.3 % (0.0-0.4); Lymphocytes Absolute Auto 1.5 X10*3/uL (1.2-4.9); Lymphocytes Percent Auto 23.6 % (20-40); Mean Corpuscular HGB Conc 32.2 g/dl (31.0-35.0); Mean Corpuscular Volume 89.9 fL (80.0-98.0); Mean Platelet Volume 9.8 fL (9.4-12.3); Monocytes Absolute Auto 0.5 X10*3/uL (0.1-1.2); Neutrophils Absolute Auto 4.3 x10*3/uL (2.0-8.3); Neutrophils Percent Auto 65.8 % (45-73); Platelet Count 212 X10*3/uL (160-400); Red Blood Count 4.66 X10*6/uL (4.20-5.50); Red Cell Distribution Width 16.1 % (11.0-16.0); White Blood Count 6.5 X10*3/uL (4.8-10.8)
[2024-05-10 08:54] LABS: Alanine Aminotransferase 12 U/L (0-31); Albumin Level 3.8 g/dL (3.5-5.0); Alkaline Phosphatase 91 U/L (39-117); Anion Gap 14 (12-20); Aspartate Amino Transferase 22 U/L (5-31); Bilirubin Total 0.3 mg/dL (0.0-1.0); Blood Urea Nitrogen 17 mg/dL (9-16); Calcium 9.2 mg/dL (8.4-10.2); Carbon Dioxide 26 mmol/L (22-29); Chloride 108 mmol/L (96-108); Creatinine Clr Calc Pharmacy 53.3; Estimated Glomerular Filt Rate > 60; Glucose Random 99 mg/dL (60-115); Magnesium 2.2 mg/dL (1.6-2.6); Potassium 4.1 mmol/L (3.3-5.1); Sodium 144 mmol/L (135-145); Total Protein 6.9 g/dL (6.5-8.0)
[2024-05-10 09:29] LABS: Appearance Urine Hazy; Color Urine Other; Glucose Urine UA Negative (Negative); PH 6.5 (5.0-9.0)
[2024-05-10 09:30] LABS: Leukocyte Esterase Urine Moderate (2+) (Negative); Nitrite Urine Negative (Negative); Specific Gravity - Urine 1.015 (1.005-1.025); UMIC TRIGGER UACC YES; Urine Blood Large (3+) (Negative); Urine Ketones Negative (Negative); Urine Protein 100 (2+) mg/dL (Neg-Trace)
[2024-05-10 09:31] LABS: Bacteria Urine None Seen (None Seen); Hyaline Casts Urine 0-2 /LPF (0-2); RBC Urine >20 /HPF (0-2); UACC Culture Trigger YES
--- NOTE | 2024-05-10 09:42 | MHC.EDTECH ---
This PCT ambulated with patient to the bathroom to obtain a urine sample. Patient able to walk to bathroom with little assistance from this PCT. Patient able to give urine sample. Patient walked back to room with no assistance from this PCT. Patient in bed, states she is comfortable. Call garay placed within reach.
[2024-05-10 11:23] VITALS: BP 158/72; PULSE 59; RESP 18; TEMP 36.6; O2SAT 95
[2024-05-10 12:22] VITALS: BP 158/72; PULSE 59; RESP 18; TEMP 36.6; O2SAT 95
--- NOTE | 2024-05-10 12:22 | PC.NURSE ---
report given to CHIOMA hernández at this time. attempted to call yenny diaz home to give report w/ no answer.
== END 2024-05-10 12:23 | disposition home or self-care (01) ==
PROVIDERS: Physician Assistant; Emergency Provider Emergency Medicine Emergency Medical Services
DX: N30.90 Cystitis, unspecified without hematuria (principal); K59.00 Constipation, unspecified; E11.9 Type 2 diabetes mellitus without complications; I10 Essential (primary) hypertension; E78.5 Hyperlipidemia, unspecified; Z95.0 Presence of cardiac pacemaker; Z87.440 Personal history of urinary (tract) infections; Z87.891 Personal history of nicotine dependence; Z79.02 Long term (current) use of antithrombotics/antiplatelets; Z79.899 Other long term (current) drug therapy; Z79.4 Long term (current) use of insulin
CPT/HCPCS: 36415; 74176; 80053; 81001; 83735; 85025; 87086; 99284

== ENCOUNTER 2024-05-16 21:11 | Emergency (ER) | payer MEDICARE, MEDICAID, SELFPAY ==
--- NOTE | ~2024-05-16 | XR_ITS ---
EXAMINATION: XR ABDOMEN KUB CLINICAL INDICATION: Left ureteric stent position COMPARISON: CT from 05/10/2024 TECHNIQUE: AP view of the abdomen. FINDINGS: Left nephroureteral stent is seen with the proximal pigtail projecting over the left renal pelvis and distal pigtail projecting over the bladder in stable position compared to the prior exam. No definite ureteral calcifications seen. A large stool ball is seen within the rectal vault. Bowel gas pattern is otherwise nonspecific without evidence of obstruction XR/XR KUB IMPRESSION: 1. Left nephroureteral stent in stable position. No definite ureteral calcifications seen. 2. Large stool ball in the rectal vault. Electronically signed by: Vincent Suarez MD 05/16/2024 10:58 PM [facility]
[2024-05-16 21:25] VITALS: BP 160/90; PULSE 60; O2SAT 96
[2024-05-16 21:31] VITALS: BP 199/96; PULSE 60; RESP 16; TEMP 36.9; O2SAT 96; BMI 24.1
--- NOTE | 2024-05-16 21:38 | ED_ITS ---
HPI - Abdominal Pain General Chief Complaint: Abdominal Pain Stated Complaint: abd pain from snf Time Seen by Provider: 05/16/24 21:37 Source: patient Mode of arrival: ambulatory Limitations: no limitations History of Present Illness ED Provider: HPI narrative: Patient with history of kidney stone status post L ureteric stent placed on 04/22 comes here as for last 2 days complaining of blood in the urine and frequency and discomfort patient was seen here for same on 05/10 CT scan at that time showed stent in place with no obstructive kidney stone patient denies any nausea or vomiting Related Data Home Medications ?Medication ?Instructions ?Recorded ?Confirmed lisinopril 40 mg tablet 40 mg PO DAILY 11/04/20 05/06/24 rosuvastatin 20 mg tablet 20 mg PO BEDTIME 12/14/21 05/06/24 acetaminophen 325 mg tablet 650 mg PO Q4H PRN Pain 04/16/24 05/06/24 aluminum-mag hydroxide-simethicone 30 ml PO Q4H PRN GI UPSET 04/16/24 05/06/24 200 mg-200 mg-20 mg/5 mL oral susp (Mintox) glycerin (adult) 1 supp [place] DAILY PRN Constipation 04/16/24 05/06/24 loperamide 2 mg capsule 2 mg PO Q4H PRN LOOSE STOOLS 04/16/24 05/06/24 magnesium hydroxide 400 mg/5 mL 30 ml PO DAILY PRN Constipation 04/16/24 05/06/24 oral suspension (Milk of Magnesia) sennosides 8.6 mg-docusate sodium 2 tab PO BID 04/16/24 05/06/24 50 mg tablet (Stool Softener-Laxative) vitamins A,C,R-hkzl-gcyovu 2,148 1 tab PO BID 04/16/24 05/06/24 mcg-113 mg-45 mg-17.4 mg tablet (PreserVision AREDS) Previous Rx's ?Medication ?Instructions ?Recorded blood-glucose meter (OneTouch #100 ea 09/01/20 Ultra2 Meter) insulin degludec 100 unit/mL (3 18 unit (0.18 mL) subcut BEDTIME 07/20/21 mL) subcutaneous pen (Tresiba #15 mL FlexTouch U-100 insulin) pyridoxine (vitamin B6) 100 mg 100 mg PO DAILY 90 days #90 tabs 04/26/22 tablet blood sugar diagnostic #100 ea 10/20/21 lancets 33 gauge (OneTouch Delica #100 ea 10/20/21 Lancets) pen needle, diabetic 33 gauge x #100 ea 11/18/21 5/32 (Comfort EZ Pen [place]) cyanocobalamin (vitamin B-12) 1,000 mcg PO DAILY #30 tabs 12/30/21 1,000 mcg tablet blood sugar diagnostic (FreeStyle #100 ea 01/13/22 Lite Strips) cholecalciferol (vitamin D3) 125 125 mcg PO DAILY #90 caps 02/16/22 mcg (5,000 unit) capsule famotidine 40 mg tablet 40 mg PO DAILY #90 tabs 02/16/22 clopidogrel 75 mg tablet 75 mg PO DAILY #90 tabs 03/09/22 donepezil 5 mg tablet 5 mg PO BEDTIME #90 tabs 03/09/22 gabapentin 100 mg capsule 100 mg PO BID #180 caps 03/09/22 metoprolol succinate 25 mg 50 mg (2 x 25 mg) PO DAILY #90 tabs 03/09/22 tablet,extended release 24 hr allopurinol 100 mg tablet 100 mg PO DAILY 90 days #90 tabs 03/27/22 aspirin 81 mg capsule 81 mg PO DAILY #30 caps 06/26/22 polyethylene glycol 3350 17 17 g PO BID PRN constipation #238 11/10/22 gram/dose oral powder (Miralax) grams amlodipine 5 mg tablet 5 mg PO DAILY #90 tabs 05/06/24 phenazopyridine 100 mg tablet 200 mg (2 x 100 mg) PO TID 2 days 05/10/24 (Pyridium) #6 tabs Allergies Allergy/AdvReac Type Severity Reaction Status Date / Time atorvastatin Allergy Unknown pt does Verified 05/16/24 21:33 not know azithromycin Allergy Unknown pt does Verified 05/16/24 21:33 not know ceftriaxone Allergy Unknown pt does Verified 05/16/24 21:33 not know cephalexin Allergy Unknown pt does Verified 05/16/24 21:33 not know citalopram Allergy Unknown pt does Verified 05/16/24 21:33 not know levofloxacin Allergy Unknown pt does Verified 05/16/24 21:33 not know metformin Allergy Unknown pt does Verified 05/16/24 21:33 not know nitrofurantoin Allergy Unknown pt does Verified 05/16/24 21:33 not know oxycodone Allergy Unknown pt does Verified 05/16/24 21:33 not know penicillin V Allergy Unknown pt does Verified 05/16/24 21:33 not know pioglitazone Allergy Unknown pt does Verified 05/16/24 21:33 not know repaglinide Allergy Unknown pt does Verified 05/16/24 21:33 not know rosuvastatin [Crestor] Allergy Unknown pt does Verified 05/16/24 21:33 not know sertraline Allergy Unknown pt does Verified 05/16/24 21:33 not know simvastatin Allergy Unknown pt does Verified 05/16/24 21:33 not know sulfacetamide Allergy Unknown pt does Verified 05/16/24 21:33 not know aspirin Allergy Unknown Verified 05/16/24 21:33 Cefuroxime Sodium Allergy Unknown pt does Uncoded 05/10/24 07:55 not know Review of Systems Review of Systems Yes all other systems are reviewed and are negative [facility] Past Medical History Medical History Bilateral kidney stones Annual physical exam HTN (hypertension) IDDM (insulin dependent diabetes mellitus) Diverticulitis Nephrolithiasis Cataract Hyperlipidemia Pacemaker Myocardial infarct Macular degeneration Nephrolithiasis Dementia Frequent UTI HTN (hypertension) Hypothyroid Diabetes Surgical History Status post lumbar spine surgery for decompression of spinal cord H/O left knee surgery Family History Family History Father Heart attack Mother Heart problem Heart attack Substance use disorder Social History Social History Household Members: Other Household Members Other:: lives in assisted living Housing: Assisted Living Facility Housing Other:: [facility] Pena Do you presently have visiting nurse or other home services: No Alcohol intake: never Comment: pt will get oob without assistance. Patient Tobacco Use Status: Former Tobacco user Tobacco use type: Cigarette Cigarettes Per Day: 10.0 Years Smoked: 54 Smoked in Last 30 Days: No e-Cigarette/Vaping Use: Never Used Second Hand Smoke Exposure: No Advance Directives: Yes Advance Directives on File: Yes Advance Directives Date on File: 11/05/20 service: No Current occupational status: retired Cognitive needs: No Hearing needs: No Vision needs: Yes Physical Exam ED Vital Signs: Vital Signs - 24 hr 05/16/24 21:31 05/16/24 23:37 Temperature 98.4 F 98.4 F Pulse Rate 60 60 Respiratory Rate 16 16 Blood Pressure 199/96 H 199/96 H Pulse Oximetry 96 96 Oxygen Delivery Method Room Air Room Air BMI result Body Mass Index 24.1 Appearance: Alert. Oriented X3. No acute distress. ENT: Pharynx normal. Oral Mucosa moist hard of hearing Neck: Normal inspection. Neck supple. CVS: Normal heart rate and rhythm. Pulses normal. Respiratory: No respiratory distress. Equal air entry bilateral, no wheezing/rales/rhonchi Abdomen: Soft and nontender. Bowel sounds are present, no mass palpable, no CVA tenderness Skin: Skin warm and dry. Normal skin color. Normal skin turgor. Extremities: No lower extremity edema. No calf tenderness Neuro: Oriented X 3. No motor deficit. Medical Decision Making Medical Decision Making [facility] Narrative: Patient with constipation with nonspecific pain lab workup is negative no UTI KUB with stent in place patient is a CT scan done on 05/10 which was also negative will discharge patient back to custodial patient in no distress Lab Data [facility] Lab Attestation statement: I reviewed the patient's lab results. Labs: Lab Results 05/16/24 Range/Units 21:51 Urine Color RED Urine Appearance Cloudy Urine pH 5.5 (5.0-9.0) Ur Specific [place] >= 1.030 H (1.005-1.025) Urine Protein See Note (Neg-Trace) mg/dL Urine Glucose (UA) Negative (Negative) mg/dL Urine Ketones See Note (Negative) mg/dL Urine Blood See Note (Negative) Urine Nitrite See Note (Negative) Ur Leukocyte Esterase See Note (Negative) Urine RBC >20 H (0-2) /HPF Urine WBC 21-50 H (0-5) /HPF Ur Squamous Epith Cells 3-5 (0-2) /HPF Urine Bacteria None Seen (None Seen) Hyaline Casts 0-2 (0-2) /LPF Independent Interpretation I performed an independent interpretation of an: Plain X-Ray Radiology Impression Discussion of test interpretation with radiology: I have reviewed the radiologist's reading. Medications Administered Discontinued Medications Generic Name Dose Route Start Last Admin Trade Name Freq PRN Reason Stop Dose Admin Magnesium Hydroxide 30 ml 05/16/24 22:34 05/16/24 22:37 Milk Of Magnesia 30 Ml Oral.Susp PO 05/16/24 22:35 30 ml ONCE ONE Administration Discharge Plan Discharge Clinical Impression: Constipation Patient Disposition: Xfer [facility] Transfer Details: X-ray abdomen showed stent in place large amount of stool no signs of significant infection in the urine Instructions: Constipation (ED) Additional Instructions: Continue take your stool softener Your stent is in place No infection noticed in the urine Prescriptions: No Action (DME) blood-glucose meter [OneTouch Ultra2 Meter] [facility] See Rx Instructions .ROUTE .MEDSUPPLY Qty: 100 3RF Rx Instructions: tid pyridoxine (vitamin B6) 100 mg tablet 100 mg PO DAILY 90 Days Qty: 90 3RF (DME) pen needle, diabetic [Comfort EZ Pen [place]] 33 gauge x 5/32 needle See Rx Instructions .Route Qty: 100 3RF Rx Instructions: As directed cyanocobalamin (vitamin B-12) 1,000 mcg tablet 1,000 mcg PO DAILY Qty: 30 8RF (DME) FreeStyle Lite Strips Strip See Rx Instructions .Route Qty: 100 5RF Rx Instructions: test blood sugar 3 times per day famotidine 40 mg tablet 40 mg PO DAILY Qty: 90 3RF cholecalciferol (vitamin D3) 125 mcg (5,000 unit) capsule 125 mcg PO DAILY Qty: 90 3RF donepezil 5 mg tablet 5 mg PO BEDTIME Qty: 90 3RF metoprolol succinate 25 mg tablet extended release 24 hr 50 mg PO DAILY Qty: 90 3RF gabapentin 100 mg capsule 100 mg PO BID Qty: 180 3RF clopidogrel 75 mg tablet 75 mg PO DAILY Qty: 90 3RF allopurinol 100 mg tablet 100 mg PO DAILY 90 Days Qty: 90 1RF polyethylene glycol 3350 [Miralax] 17 gram/dose powder 17 g PO BID PRN (Reason: constipation) Qty: 238 0RF Rx Instructions: If no BM x 3 days lisinopril 40 mg Tablet 40 mg PO DAILY aspirin 81 mg capsule 81 mg PO DAILY Qty: 30 0RF acetaminophen 325 mg Tablet 650 mg PO Q4H PRN (Reason: Pain) loperamide 2 mg Capsule 2 mg PO Q4H PRN (Reason: LOOSE STOOLS) Rx Instructions: administer after each loose stool until symptoms controlled; do not exceed 8 mg per 24 hrs sennosides-docusate sodium [Stool Softener-Laxative] 8.6-50 mg tablet 2 tab PO BID magnesium hydroxide [Milk of Magnesia] 400 mg/5 mL Suspension 30 ml PO DAILY PRN (Reason: Constipation) alum-mag hydroxide-simeth [Mintox] 200-200-20 mg/5 mL Suspension 30 ml PO Q4H PRN (Reason: GI UPSET) Rx Instructions: administer between meals and at bedtime glycerin (adult) Suppository 1 supp [place] DAILY PRN (Reason: Constipation) PreserVision AREDS 2,148 mcg-113 mg-45 mg-17.4mg tablet 1 tab PO BID phenazopyridine [Pyridium] 100 mg tablet 200 mg PO TID 2 Days Qty: 6 0RF Tresiba FlexTouch U-100 100 unit/mL (3 mL) insulin pen 18 unit subcut BEDTIME Qty: 15 4RF rosuvastatin 20 mg tablet 20 mg PO BEDTIME (DME) lancets [OneTouch Delica Lancets] 33 gauge misc See Rx Instructions .ROUTE .MEDSUPPLY Qty: 100 5RF Rx Instructions: TID (DME) blood sugar diagnostic Strip See Rx Instructions .ROUTE .MEDSUPPLY Qty: 100 4RF Rx Instructions: tid amlodipine 5 mg tablet 5 mg PO DAILY Qty: 90 0RF Interventions: ED Discharge Assessment Last Done: 05/16/24 23:37 Discharge Date/Time: 05/16/24 23:47 Print Language: Montserratian
--- OUTSIDE RECORDS SUMMARY | 2024-05-16 21:49 | XMS_ITS | Clinical Summary ---
Author Organization Unknown Care Team Providers Care Restaurant General Manager Name Role Phone NO LORA, HUBERT Unavailable Unavailable KHRIS PT, KENDALL Unavailable Unavailable Payers Payer Name Policy Type Policy Number Effective Date Expira tion Date MEDICARE - [place] - PD [id number] MEDICAID [facility] [id number] Problems Condition Name Condition Details Condition Category Status Onset Date Resolution Date Last Treatment Date Treating Clinician Comments ESSENTIAL (PRIMARY) HYPERTENSION Active 12-08 00:00: 00 SICK SINUS SYNDROME Active 06-04 00:00: 00 ATHSCL HEART DISEASE OF [place] CORONARY ARTERY W/O ANG PCTRS Active 06-04 [...] UNSPECIFIED, UNCOMPLICATE D Active 06-04 00:00: 00 [facility] (CURRENT) USE OF INSULIN Active 06-04 00:00: 00 PRESENCE OF CARDIAC PACEMAKER Active 06-04 00:00: 00 UPPER MARKER (CURRENT) USE OF ANTITHROMBOT ICS/ANTIPLAT ELETS Active [...] 11-21 00:00: 00 11-09 23:59 :00 No [id number] 1 tablet EVERY DAY 1 tablet EVERY DAY (route: oral) Med Classific ation: Gout and Hyperuric emia Therapy amlodipine 2.5 mg tablet 11-21 00:00: 00 11-09 23:59 :00 No [id number] 1 tablet EVERY DAY 1 tablet EVERY DAY (route: oral) Med Classific ation: Cardiovas cular Therapy Agents cyanocobala min (vit B-12) 1,000 mcg tablet 12-08 00:00: 00 11-09 23:59 :00 No [id number] 1 tablet DAILY 1 tablet DAILY (route: oral) Med Classific ation: Electroly te Balance-N utritiona l Products donepezil 5 mg tablet 12-08 00:00: 00 11-09 23:59 :00 No [id number] 1 tablet DAILY 1 tablet DAILY (route: oral) Med Classific ation: Cognitive Disorder Therapy famotidine 40 mg tablet 12-08 00:00: 00 11-09 23:59 :00 No [id number] 1 tablet DAILY 1 tablet DAILY (route: oral) Med Classific ation: Gastroint estinal Therapy Agents levothyroxi ne 100 mcg tablet 12-08 00:00: 00 11-09 23:59 :00 No [id number] 1 tablet DAILY 1 tablet DAILY (route: oral) Med Classific ation: Endocrine lisinopril 40 mg tablet 12-08 00:00: 00 11-09 23:59 :00 No [id number] 1 tablet DAILY 1 tablet DAILY (route: oral) Med Classific ation: Cardiovas cular Therapy Agents Plavix 75 mg tablet 12-08 00:00: 00 11-09 23:59 :00 No [id number] 1 tablet DAILY 1 tablet DAILY (route: oral) Med Classific ation: Hematolog ical Agents pregabalin 100 mg capsule 12-08 00:00: 00 11-09 23:59 :00 No [id number] 1 capsule 2 TIMES DAILY 1 capsule 2 TIMES DAILY (route: oral) Med Classific ation: Central Nervous System Agents rosuvastati n 20 mg tablet 12-08 00:00: 00 11-09 23:59 :00 No [id number] 1 mg DAILY 1 mg DAILY (route: oral) Med Classific ation: Cardiovas cular Therapy Agents Tresiba FlexTouch U-200 insulin 200 unit/mL (3 mL) subcutaneou s pen 12-08 00:00: 00 11-09 23:59 :00 No [id number] 18 unit EVERY PM 18 unit EVERY PM (route: subcutaneo us) Med Classific ation: Endocrine metoprolol succinate ER 25 mg tablet,exte nded release 24 hr 12-08 00:00: 00 11-09 23:59 :00 No [id number] 2 tablet DAILY 2 tablet DAILY (route: [...] HOSPITALIZATION/INPATIENT ADMISSION RELATED TO: PATIENT IS A MI'KMAQ 76 YO CONFUSED FEMALE S/P HOSPITALIZATION 12/06-12/08/21 FOR DIZZINESS AND CHEST PAIN. HOSPITAL TESTS REVEALED ABNORMAL STRESS TEST. PATIENT REPORTS 3 BACK SURGERIES. PATIENT REPORTS SMOKES 3-4 CIGARETTES A DAY, STAFF REPORTS 8-10 CIGARETTES A DAY. DAY PRIOR TO HOSPITALIZATION, PATIENT WAS ATTENDING [facility], CHAIN SMOKED 1 PACK OF CIGARETTES IN 3-4 HOURS. PAST MEDICAL HISTORY: PAST MD HX: DEMENTIA, DM ON INSULIN, [place], PACEMAKER 3 YEARS AGO, HYPERTENSION, HLD PATIENT'S [...] PATIENT LIVING SITUATION/CAREGIVER STATUS: PATIENT LIVES AT [facility], SHARES LARGE ROOM WITH TWO OTHER WOMEN. [...] HOSPITALIZATION/INPATIENT ADMISSION RELATED TO: PATIENT IS A MI'KMAQ 76 YO CONFUSED FEMALE S/P HOSPITALIZATION 12/06-12/08/21 FOR DIZZINESS AND CHEST PAIN. HOSPITAL TESTS REVEALED ABNORMAL STRESS TEST. PATIENT REPORTS 3 BACK SURGERIES. PATIENT REPORTS SMOKES 3-4 CIGARETTES A DAY, STAFF REPORTS 8-10 CIGARETTES A DAY. DAY PRIOR TO HOSPITALIZATION, PATIENT WAS ATTENDING [facility], CHAIN SMOKED 1 PACK OF CIGARETTES IN 3-4 HOURS. PAST MEDICAL HISTORY: PAST MD HX: DEMENTIA, DM ON INSULIN, [place], PACEMAKER 3 YEARS AGO, HYPERTENSION, HLD PATIENT'S [...] PATIENT LIVING SITUATION/CAREGIVER STATUS: PATIENT LIVES AT [facility], SHARES LARGE ROOM WITH TWO OTHER WOMEN. [...] FOR FALL AND INJURY INCLUDING PARTICIPATION IN [facility] BALANCE SPECIALTY PROGRAM [code = PHYSICAL THERAPY TO INSTRUCT PATIENT/CAREGIVER ON BALANCE AND BALANCE STRATEGIES TO IMPROVE SAFE MOBILITY AND REDUCE RISK FOR FALL AND INJURY INCLUDING PARTICIPATION IN [facility] SPECIALTY PROGRAM] Future Scheduled Test PHYSICAL T [...] End Date/Time Encounter Type Admission Type Attending [facility] Care Department Encounter ID Discharge Date Discharge Status Discharge Condition Discharge Reason Percent Goals Met 2021-12-08 00:00:00 2021-12-27 00:00:00 Outpatient NEW ADMISSION KENDALL PINEDO [facility] [id number] 00:00:00 DISCHARGED /TRANSFERR ED TO ANOTHER TYPE OF HEALTH CARE INSTITUTIO N NOT DEFINED ELSEWHERE IN THIS CODE LIST INDEPENDEN T IN THE HOME GOALS MET ( ONLY) 100.00
--- OUTSIDE RECORDS SUMMARY | 2024-05-16 21:49 | XMS_ITS | Clinical Summary ---
Author Organization Unknown Care Team Providers Care Microchip Specialist Name Role Phone NO LORA, HUBERT Unavailable Unavailable KHRIS PT, KENDALL Unavailable Unavailable Payers Payer Name Policy Type Policy Number Effective Date Expira tion Date MEDICARE - [place] - PD [id number] MEDICAID [facility] [id number] Problems Condition Name Condition Details Condition Category Status Onset Date Resolution Date Last Treatment Date Treating Clinician Comments ESSENTIAL (PRIMARY) HYPERTENSION Active 12-08 00:00: 00 SICK SINUS SYNDROME Active 06-04 00:00: 00 ATHSCL HEART DISEASE OF [place] CORONARY ARTERY W/O ANG PCTRS Active 06-04 [...] UNSPECIFIED, UNCOMPLICATE D Active 06-04 00:00: 00 [facility] (CURRENT) USE OF INSULIN Active 06-04 00:00: 00 PRESENCE OF CARDIAC PACEMAKER Active 06-04 00:00: 00 CHECK WEIGHER (CURRENT) USE OF ANTITHROMBOT ICS/ANTIPLAT ELETS Active [...] 11-21 00:00: 00 11-09 23:59 :00 No [id number] 1 tablet EVERY DAY 1 tablet EVERY DAY (route: oral) Med Classific ation: Gout and Hyperuric emia Therapy amlodipine 2.5 mg tablet 11-21 00:00: 00 11-09 23:59 :00 No [id number] 1 tablet EVERY DAY 1 tablet EVERY DAY (route: oral) Med Classific ation: Cardiovas cular Therapy Agents cyanocobala min (vit B-12) 1,000 mcg tablet 12-08 00:00: 00 11-09 23:59 :00 No [id number] 1 tablet DAILY 1 tablet DAILY (route: oral) Med Classific ation: Electroly te Balance-N utritiona l Products donepezil 5 mg tablet 12-08 00:00: 00 11-09 23:59 :00 No [id number] 1 tablet DAILY 1 tablet DAILY (route: oral) Med Classific ation: Cognitive Disorder Therapy famotidine 40 mg tablet 12-08 00:00: 00 11-09 23:59 :00 No [id number] 1 tablet DAILY 1 tablet DAILY (route: oral) Med Classific ation: Gastroint estinal Therapy Agents levothyroxi ne 100 mcg tablet 12-08 00:00: 00 11-09 23:59 :00 No [id number] 1 tablet DAILY 1 tablet DAILY (route: oral) Med Classific ation: Endocrine lisinopril 40 mg tablet 12-08 00:00: 00 11-09 23:59 :00 No [id number] 1 tablet DAILY 1 tablet DAILY (route: oral) Med Classific ation: Cardiovas cular Therapy Agents Plavix 75 mg tablet 12-08 00:00: 00 11-09 23:59 :00 No [id number] 1 tablet DAILY 1 tablet DAILY (route: oral) Med Classific ation: Hematolog ical Agents pregabalin 100 mg capsule 12-08 00:00: 00 11-09 23:59 :00 No [id number] 1 capsule 2 TIMES DAILY 1 capsule 2 TIMES DAILY (route: oral) Med Classific ation: Central Nervous System Agents rosuvastati n 20 mg tablet 12-08 00:00: 00 11-09 23:59 :00 No [id number] 1 mg DAILY 1 mg DAILY (route: oral) Med Classific ation: Cardiovas cular Therapy Agents Tresiba FlexTouch U-200 insulin 200 unit/mL (3 mL) subcutaneou s pen 12-08 00:00: 00 11-09 23:59 :00 No [id number] 18 unit EVERY PM 18 unit EVERY PM (route: subcutaneo us) Med Classific ation: Endocrine metoprolol succinate ER 25 mg tablet,exte nded release 24 hr 12-08 00:00: 00 11-09 23:59 :00 No [id number] 2 tablet DAILY 2 tablet DAILY (route: [...] HOSPITALIZATION/INPATIENT ADMISSION RELATED TO: PATIENT IS A UPPER [place] 76 YO CONFUSED FEMALE S/P HOSPITALIZATION 12/06-12/08/21 FOR DIZZINESS AND CHEST PAIN. HOSPITAL TESTS REVEALED ABNORMAL STRESS TEST. PATIENT REPORTS 3 BACK SURGERIES. PATIENT REPORTS SMOKES 3-4 CIGARETTES A DAY, STAFF REPORTS 8-10 CIGARETTES A DAY. DAY PRIOR TO HOSPITALIZATION, PATIENT WAS ATTENDING [facility], CHAIN SMOKED 1 PACK OF CIGARETTES IN 3-4 HOURS. PAST MEDICAL HISTORY: PAST MD HX: DEMENTIA, DM ON INSULIN, [place], PACEMAKER 3 YEARS AGO, HYPERTENSION, HLD PATIENT'S [...] PATIENT LIVING SITUATION/CAREGIVER STATUS: PATIENT LIVES AT [facility], SHARES LARGE ROOM WITH TWO OTHER WOMEN. [...] HOSPITALIZATION/INPATIENT ADMISSION RELATED TO: PATIENT IS A UPPER [place] 76 YO CONFUSED FEMALE S/P HOSPITALIZATION 12/06-12/08/21 FOR DIZZINESS AND CHEST PAIN. HOSPITAL TESTS REVEALED ABNORMAL STRESS TEST. PATIENT REPORTS 3 BACK SURGERIES. PATIENT REPORTS SMOKES 3-4 CIGARETTES A DAY, STAFF REPORTS 8-10 CIGARETTES A DAY. DAY PRIOR TO HOSPITALIZATION, PATIENT WAS ATTENDING [facility], CHAIN SMOKED 1 PACK OF CIGARETTES IN 3-4 HOURS. PAST MEDICAL HISTORY: PAST MD HX: DEMENTIA, DM ON [place]ULIN, [place], PACEMAKER 3 YEARS AGO, HYPERTENSION, HLD PATIENT'S [...] PATIENT LIVING SITUATION/CAREGIVER STATUS: PATIENT LIVES AT [facility], SHARES LARGE ROOM WITH TWO OTHER WOMEN. [...] FOR FALL AND INJURY INCLUDING PARTICIPATION IN [facility] BALANCE SPECIALTY PROGRAM [code = PHYSICAL THERAPY TO INSTRUCT PATIENT/CAREGIVER ON BALANCE AND BALANCE STRATEGIES TO IMPROVE SAFE MOBILITY AND REDUCE RISK FOR FALL AND INJURY INCLUDING PARTICIPATION IN [facility] SPECIALTY PROGRAM] Future Scheduled Test PHYSICAL T [...] End Date/Time Encounter Type Admission Type Attending [facility] Care Department Encounter ID Discharge Date Discharge Status Discharge Condition Discharge Reason Percent Goals Met 2021-12-08 00:00:00 2021-12-27 00:00:00 Outpatient NEW ADMISSION KENDALL PINEDO [facility] [id number] 00:00:00 DISCHARGED /TRANSFERR ED TO ANOTHER TYPE OF HEALTH CARE INSTITUTIO N NOT DEFINED ELSEWHERE IN THIS CODE LIST INDEPENDEN T IN THE HOME GOALS MET ( ONLY) 100.00
[2024-05-16 22:01] LABS: Appearance Urine Cloudy; Color Urine RED; Glucose Urine UA Negative (Negative); PH 5.5 (5.0-9.0); Specific Gravity - Urine >= 1.030 (1.005-1.025); UMIC TRIGGER UACC YES
[2024-05-16 22:17] LABS: Bacteria Urine None Seen (None Seen); Hyaline Casts Urine 0-2 /LPF (0-2); RBC Urine >20 /HPF (0-2); UACC Culture Trigger YES; WBC Urine 21-50 /HPF (0-5)
[2024-05-16] MEDS: Milk of Magnesia 30 ML ORAL.SUSP PO (22:37)
[2024-05-16 23:37] VITALS: BP 199/96; PULSE 60; RESP 16; TEMP 36.9; O2SAT 96
== END 2024-05-16 23:47 ==
PROVIDERS: Emergency Provider Internal Medicine
DX: K59.00 Constipation, unspecified (principal); R31.9 Hematuria, unspecified; I10 Essential (primary) hypertension; E11.9 Type 2 diabetes mellitus without complications; Z79.4 Long term (current) use of insulin; Z79.899 Other long term (current) drug therapy
CPT/HCPCS: 74018; 81001; 81003; 87086; 99283; 99284

== ENCOUNTER 2024-05-21 14:43 | Outpatient (REF) | payer MEDICARE, MEDICAID, SELFPAY | END 2024-05-21 14:44 | disposition home or self-care (01) | LOC: HO.HAP 14:43 | PROVIDERS: Visit Provider Internal Medicine | DX: Z46.1 Encounter for fitting and adjustment of hearing aid (principal); H90.3 Sensorineural hearing loss, bilateral | CPT/HCPCS: V5011; V5020; V5160; V5261; V5266 ==

== ENCOUNTER 2024-05-22 21:27 | Emergency (ER) | payer MEDICARE, MEDICAID, SELFPAY ==
--- NOTE | ~2024-05-22 | CT_ITS ---
EXAMINATION: CT ABDOMEN AND PELVIS WITHOUT CONTRAST CLINICAL INFORMATION: Abdominal pain. COMPARISON: May 10, 2024 TECHNIQUE: Multidetector volumetric imaging was performed from the superior aspect of the liver through the pubic symphysis. Sagittal and coronal reformatted images were obtained on the technologist's workstation. This CT examination was performed using dose optimization techniques as appropriate, variously including the following: *Automated exposure control *Adjustment of mA and/or kV according to patient size (this includes techniques or standardized protocols for targeted exams where dose is matched to indication/reason for exam; i.e. extremities or head) *Use of iterative reconstruction technique DLP: 475 mGy-cm FINDINGS: LUNG BASES: The visualized lung bases are unremarkable. LIVER, GALLBLADDER, AND BILIARY TREE: The liver is normal in size, shape, and attenuation. No focal hepatic lesion or biliary ductal dilatation is present. The gallbladder is unremarkable with no evidence of radiopaque gallstones, gallbladder wall thickening, or obvious pericholecystic inflammatory changes. PANCREAS: Unremarkable. SPLEEN: Unremarkable. ADRENAL GLANDS: Bilateral adrenal gland thickening and nodularity. KIDNEYS AND URETERS: The kidneys are normal in size, shape, and attenuation. Bilateral renal calculi are again seen measuring up to 5 mm lower pole right kidney. A left double-J stent is noted with proximal stent within the left renal pelvis and distal stent extending into the urinary bladder. There is mild persistent left hydronephrosis similar to prior. BLADDER: Unremarkable. GASTROINTESTINAL TRACT: There is retained stool throughout the colon particularly within the rectosigmoid with rectal expansion up to 8.2 cm. There are diverticula of the distal transverse and descending colon without diverticulitis. Appendix is not confidently seen as a separate structure. ABDOMINAL WALL: No significant hernia is appreciated. LYMPH NODES: Normal. VASCULAR: There is atherosclerotic plaque throughout the abdominal aorta and proximal branches with a stable 3.6 cm infrarenal abdominal aortic aneurysm. PELVIC VISCERA: Unremarkable. OSSEOUS STRUCTURES: There is diffuse thoracolumbar degenerative change. CT/CT abdomen pelvis wo IV con IMPRESSION: 1. No acute abnormality. 2. Bilateral renal calculi with left double-J stent in place with mild persistent left hydronephrosis. 3. Stable 3.6 cm infrarenal abdominal aortic aneurysm. 4. Retained stool throughout the colon particularly within the rectosigmoid with rectal expansion up to 8.2 cm. 5. Diverticulosis without diverticulitis. 6. Stable bilateral adrenal gland thickening and nodularity. Fleischner guidelines were followed. Electronically signed by: Mick Carlos MD 05/23/2024 02:33 AM WALKER LEGER
[2024-05-22 21:38] VITALS: BP 170/73; PULSE 69; RESP 16; TEMP 37.5; O2SAT 97; BMI 24.1
--- OUTSIDE RECORDS SUMMARY | 2024-05-22 21:48 | XMS_ITS | Clinical Summary ---
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 Name Role Phone NO LORA, HUBERT Unavailable Unavailable KHRIS PT, KENDALL Unavailable Unavailable Payers Payer Name Policy Type Policy Number Effective Date Expira tion Date MEDICARE - [place] [id number] [facility] [id number] Problems Condition Name Condition Details Condition Category Status Onset Date Resolution Date Last Treatment Date Treating Clinician Comments ESSENTIAL (PRIMARY) HYPERTENSION Active 12-08 00:00: 00 SICK SINUS SYNDROME Active 06-04 00:00: 00 ATHSCL HEART DISEASE OF [place] CORONARY ARTERY W/O ANG PCTRS Active 06-04 [...] UNSPECIFIED, UNCOMPLICATE D Active 06-04 00:00: 00 SENIOR CARE (CURRENT) USE OF INSULIN Active 06-04 00:00: 00 PRESENCE OF CARDIAC PACEMAKER Active 06-04 00:00: 00 TR[employer] [place]AU[place] (CURRENT) USE OF ANTITHROMBOT ICS/ANTIPLAT ELETS Active [...] 11-21 00:00: 00 11-09 23:59 :00 No [id number] 1 tablet EVERY DAY 1 tablet EVERY DAY (route: oral) Med Classific ation: Gout and Hyperuric emia Therapy amlodipine 2.5 mg tablet 11-21 00:00: 00 11-09 23:59 :00 No [id number] 1 tablet EVERY DAY 1 tablet EVERY DAY (route: oral) Med Classific ation: Cardiovas cular Therapy Agents cyanocobala min (vit B-12) 1,000 mcg tablet 12-08 00:00: 00 11-09 23:59 :00 No [id number] 1 tablet DAILY 1 tablet DAILY (route: oral) Med Classific ation: Electroly te Balance-N utritiona l Products donepezil 5 mg tablet 12-08 00:00: 00 11-09 23:59 :00 No [id number] 1 tablet DAILY 1 tablet DAILY (route: oral) Med Classific ation: Cognitive Disorder Therapy famotidine 40 mg tablet 12-08 00:00: 00 11-09 23:59 :00 No [id number] 1 tablet DAILY 1 tablet DAILY (route: oral) Med Classific ation: Gastroint estinal Therapy Agents levothyroxi ne 100 mcg tablet 12-08 00:00: 00 11-09 23:59 :00 No [id number] 1 tablet DAILY 1 tablet DAILY (route: oral) Med Classific ation: Endocrine lisinopril 40 mg tablet 12-08 00:00: 00 11-09 23:59 :00 No [id number] 1 tablet DAILY 1 tablet DAILY (route: oral) Med Classific ation: Cardiovas cular Therapy Agents Plavix 75 mg tablet 12-08 00:00: 00 11-09 23:59 :00 No [id number] 1 tablet DAILY 1 tablet DAILY (route: oral) Med Classific ation: Hematolog ical Agents pregabalin 100 mg capsule 12-08 00:00: 00 11-09 23:59 :00 No [id number] 1 capsule 2 TIMES DAILY 1 capsule 2 TIMES DAILY (route: oral) Med Classific ation: Central Nervous System Agents rosuvastati n 20 mg tablet 12-08 00:00: 00 11-09 23:59 :00 No [id number] 1 mg DAILY 1 mg DAILY (route: oral) Med Classific ation: Cardiovas cular Therapy Agents Tresiba FlexTouch U-200 insulin 200 unit/mL (3 mL) subcutaneou s pen 12-08 00:00: 00 11-09 23:59 :00 No [id number] 18 unit EVERY PM 18 unit EVERY PM (route: subcutaneo us) Med Classific ation: Endocrine metoprolol succinate ER 25 mg tablet,exte nded release 24 hr 12-08 00:00: 00 11-09 23:59 :00 No [id number] 2 tablet DAILY 2 tablet DAILY (route: [...] HOSPITALIZATION/INPATIENT ADMISSION RELATED TO: PATIENT IS A [place]OU[place] 76 YO CONFUSED FEMALE S/P HOSPITALIZATION 12/06-12/08/21 FOR DIZZINESS AND CHEST PAIN. HOSPITAL TESTS REVEALED ABNORMAL STRESS TEST. PATIENT REPORTS 3 BACK SURGERIES. PATIENT REPORTS SMOKES 3-4 CIGARETTES A DAY, STAFF REPORTS 8-10 CIGARETTES A DAY. DAY PRIOR TO HOSPITALIZATION, PATIENT WAS ATTENDING [facility], CHAIN SMOKED 1 PACK OF CIGARETTES IN 3-4 HOURS. PAST MEDICAL HISTORY: PAST MD HX: DEMENTIA, DM ON INSULIN, [place], PACEMAKER 3 YEARS AGO, HYPERTENSION, HLD PATIENT'S [...] PATIENT LIVING SITUATION/CAREGIVER STATUS: PATIENT LIVES AT [facility], SHARES LARGE ROOM WITH TWO OTHER [...] HOSPITALIZATION/INPATIENT ADMISSION RELATED TO: PATIENT IS A [place] 76 YO CONFUSED FEMALE S/P HOSPITALIZATION 12/06-12/08/21 FOR DIZZINESS AND CHEST PAIN. HOSPITAL TESTS REVEALED ABNORMAL STRESS TEST. PATIENT REPORTS 3 BACK SURGERIES. PATIENT REPORTS SMOKES 3-4 CIGARETTES A DAY, STAFF REPORTS 8-10 CIGARETTES A DAY. DAY PRIOR TO HOSPITALIZATION, PATIENT WAS ATTENDING [facility], CHAIN SMOKED 1 PACK OF CIGARETTES IN 3-4 HOURS. PAST MEDICAL HISTORY: PAST MD HX: DEMENTIA, DM ON INSULIN, [place], PACEMAKER 3 YEARS AGO, HYPERTENSION, HLD PATIENT'S [...] PATIENT LIVING SITUATION/CAREGIVER STATUS: PATIENT LIVES AT [facility], SHARES LARGE ROOM WITH TWO OTHER [...] FOR FALL AND INJURY INCLUDING PARTICIPATION IN [facility] BALANCE SPECIALTY PROGRAM [code = PHYSICAL THERAPY TO INSTRUCT PATIENT/CAREGIVER ON BALANCE AND BALANCE STRATEGIES TO IMPROVE SAFE MOBILITY AND REDUCE RISK FOR FALL AND INJURY INCLUDING PARTICIPATION IN [facility] SPECIALTY PROGRAM] Future Scheduled Test PHYSICAL [...] End Date/Time Encounter Type Admission Type Attending Rust Care Department Encounter ID Discharge Date Discharge Status Discharge Condition Discharge Reason Percent Goals Met 2021-12-08 00:00:00 2021-12-27 00:00:00 Outpatient NEW ADMISSION KENDALL PINEDO [facility] [id number] 00:00:00 DISCHARGED /TRANSFERR ED TO ANOTHER TYPE OF HEALTH CARE INSTITUTIO N NOT DEFINED ELSEWHERE IN THIS CODE LIST INDEPENDEN T IN THE HOME GOALS MET ( ONLY) 100.00
--- OUTSIDE RECORDS SUMMARY | 2024-05-22 21:48 | XMS_ITS | Clinical Summary ---
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] UNSPECIFIED, UNCOMPLICATE D Active 06-04 00:00: 00 GROUP HOME (CURRENT) USE OF INSULIN Active 06-04 00:00: 00 PRESENCE OF CARDIAC PACEMAKER Active 06-04 00:00: 00 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 OF ANTITHROMBOT ICS/ANTIPLAT ELETS Active [...] 11-21 00:00: 00 11-09 23:59 :00 No [id number] 1 tablet EVERY DAY 1 tablet EVERY DAY (route: oral) Med Classific ation: Gout and Hyperuric emia Therapy amlodipine 2.5 mg tablet 11-21 00:00: 00 11-09 23:59 :00 No [id number] 1 tablet EVERY DAY 1 tablet EVERY DAY (route: oral) Med Classific ation: Cardiovas cular Therapy Agents cyanocobala min (vit B-12) 1,000 mcg tablet 12-08 00:00: 00 11-09 23:59 :00 No [id number] 1 tablet DAILY 1 tablet DAILY (route: oral) Med Classific ation: Electroly te Balance-N utritiona l Products donepezil 5 mg tablet 12-08 00:00: 00 11-09 23:59 :00 No [id number] 1 tablet DAILY 1 tablet DAILY (route: oral) Med Classific ation: Cognitive Disorder Therapy famotidine 40 mg tablet 12-08 00:00: 00 11-09 23:59 :00 No [id number] 1 tablet DAILY 1 tablet DAILY (route: oral) Med Classific ation: Gastroint estinal Therapy Agents levothyroxi ne 100 mcg tablet 12-08 00:00: 00 11-09 23:59 :00 No [id number] 1 tablet DAILY 1 tablet DAILY (route: oral) Med Classific ation: Endocrine lisinopril 40 mg tablet 12-08 00:00: 00 11-09 23:59 :00 No [id number] 1 tablet DAILY 1 tablet DAILY (route: oral) Med Classific ation: Cardiovas cular Therapy Agents Plavix 75 mg tablet 12-08 00:00: 00 11-09 23:59 :00 No [id number] 1 tablet DAILY 1 tablet DAILY (route: oral) Med Classific ation: Hematolog ical Agents pregabalin 100 mg capsule 12-08 00:00: 00 11-09 23:59 :00 No [id number] 1 capsule 2 TIMES DAILY 1 capsule 2 TIMES DAILY (route: oral) Med Classific ation: Central Nervous System Agents rosuvastati n 20 mg tablet 12-08 00:00: 00 11-09 23:59 :00 No [id number] 1 mg DAILY 1 mg DAILY (route: oral) Med Classific ation: Cardiovas cular Therapy Agents Tresiba FlexTouch U-200 insulin 200 unit/mL (3 mL) subcutaneou s pen 12-08 00:00: 00 11-09 23:59 :00 No [id number] 18 unit EVERY PM 18 unit EVERY PM (route: subcutaneo us) Med Classific ation: Endocrine metoprolol succinate ER 25 mg tablet,exte nded release 24 hr 12-08 00:00: 00 11-09 23:59 :00 No [id number] 2 tablet DAILY 2 tablet DAILY (route: [...] HOSPITALIZATION/INPATIENT ADMISSION RELATED TO: PATIENT IS A [place] 76 YO CONFUSED FEMALE S/P HOSPITALIZATION 12/06-12/08/21 FOR DIZZINESS AND CHEST PAIN. HOSPITAL TESTS REVEALED ABNORMAL STRESS TEST. PATIENT REPORTS 3 BACK SURGERIES. PATIENT REPORTS SMOKES 3-4 CIGARETTES A DAY, STAFF REPORTS 8-10 CIGARETTES A DAY. DAY PRIOR TO HOSPITALIZATION, PATIENT WAS ATTENDING [facility], CHAIN SMOKED 1 PACK OF CIGARETTES IN 3-4 HOURS. PAST MEDICAL HISTORY: PAST MD HX: DEMENTIA, DM ON INSULIN, [place], PACEMAKER 3 YEARS AGO, HYPERTENSION, HLD PATIENT'S [...] PATIENT LIVING SITUATION/CAREGIVER STATUS: PATIENT LIVES AT [facility], SHARES LARGE ROOM WITH TWO OTHER [...] HOSPITALIZATION/INPATIENT ADMISSION RELATED TO: PATIENT IS A [place] 76 YO CONFUSED FEMALE S/P HOSPITALIZATION 12/06-12/08/21 FOR DIZZINESS AND CHEST PAIN. HOSPITAL TESTS REVEALED ABNORMAL STRESS TEST. PATIENT REPORTS 3 BACK SURGERIES. PATIENT REPORTS SMOKES 3-4 CIGARETTES A DAY, STAFF REPORTS 8-10 CIGARETTES A DAY. DAY PRIOR TO HOSPITALIZATION, PATIENT WAS ATTENDING [facility], CHAIN SMOKED 1 PACK OF CIGARETTES IN 3-4 HOURS. PAST MEDICAL HISTORY: PAST MD HX: DEMENTIA, DM ON INSULIN, [place], PACEMAKER 3 YEARS AGO, HYPERTENSION, HLD PATIENT'S [...] PATIENT LIVING SITUATION/CAREGIVER STATUS: PATIENT LIVES AT [facility], SHARES LARGE ROOM WITH TWO OTHER [...] FOR FALL AND INJURY INCLUDING PARTICIPATION IN [facility] BALANCE SPECIALTY PROGRAM [code = PHYSICAL THERAPY TO INSTRUCT PATIENT/CAREGIVER ON BALANCE AND BALANCE STRATEGIES TO IMPROVE SAFE MOBILITY AND REDUCE RISK FOR FALL AND INJURY INCLUDING PARTICIPATION IN [facility] SPECIALTY PROGRAM] Future Scheduled Test PHYSICAL [...] End Date/Time Encounter Type Admission Type Attending [facility] Care Department Encounter ID Discharge Date Discharge Status Discharge Condition Discharge Reason Percent Goals Met 2021-12-08 00:00:00 2021-12-27 00:00:00 Outpatient NEW ADMISSION KENDALL PINEDO [facility] [id number] 00:00:00 DISCHARGED /TRANSFERR ED TO ANOTHER TYPE OF HEALTH CARE INSTITUTIO N NOT DEFINED ELSEWHERE IN THIS CODE LIST INDEPENDEN T IN THE HOME GOALS MET ( ONLY) 100.00
--- NOTE | 2024-05-22 21:50 | ED_ITS ---
HPI - Female Genitourinary General Chief complaint: Urogenital-Female Stated complaint: r/o kidney stones from snf, hematuria Time Seen by Provider: 05/22/24 21:43 Source: patient Mode of arrival: ambulatory Limitations: no limitations History of Present Illness ED Provider: HPI Narrative: Patient with history of kidney stone status post L ureteric stent placed on 04/22 comes here staff noticed blood in the urine lower left abdomen discomfort patient was seen here for same on 05/10 and 05/16 CT scan and KUB at that time showed stent in place with no obstructive kidney stone patient denies any nausea or vomiting patient had significant constipation on 05/16 patient not in any significant distress Related Data Home Medications ?Medication ?Instructions ?Recorded ?Confirmed lisinopril 40 mg tablet 40 mg PO DAILY 11/04/20 05/06/24 rosuvastatin 20 mg tablet 20 mg PO BEDTIME 12/14/21 05/06/24 acetaminophen 325 mg tablet 650 mg PO Q4H PRN Pain 04/16/24 05/06/24 aluminum-mag hydroxide-simethicone 30 ml PO Q4H PRN GI UPSET 04/16/24 05/06/24 200 mg-200 mg-20 mg/5 mL oral susp (Mintox) glycerin (adult) 1 supp AK DAILY PRN Constipation 04/16/24 05/06/24 loperamide 2 mg capsule 2 mg PO Q4H PRN LOOSE STOOLS 04/16/24 05/06/24 magnesium hydroxide 400 mg/5 mL 30 ml PO DAILY PRN Constipation 04/16/24 05/06/24 oral suspension (Milk of Magnesia) sennosides 8.6 mg-docusate sodium 2 tab PO BID 04/16/24 05/06/24 50 mg tablet (Stool Softener-Laxative) vitamins A,C,C-idvt-ridhhm 2,148 1 tab PO BID 04/16/24 05/06/24 mcg-113 mg-45 mg-17.4 mg tablet (PreserVision AREDS) Previous Rx's ?Medication ?Instructions ?Recorded blood-glucose meter (OneTouch #100 ea 09/01/20 Ultra2 Meter) insulin degludec 100 unit/mL (3 18 unit (0.18 mL) subcut BEDTIME 07/20/21 mL) subcutaneous pen (Tresiba #15 mL FlexTouch U-100 insulin) pyridoxine (vitamin B6) 100 mg 100 mg PO DAILY 90 days #90 tabs 09/27/21 tablet blood sugar diagnostic #100 ea 10/20/21 lancets 33 gauge (OneTouch Delica #100 ea 10/20/21 Lancets) pen needle, diabetic 33 gauge x #100 ea 11/18/21 5/32 (Comfort EZ Pen [place]) cyanocobalamin (vitamin B-12) 1,000 mcg PO DAILY #30 tabs 12/30/21 1,000 mcg tablet blood sugar diagnostic (FreeStyle #100 ea 01/13/22 Lite Strips) cholecalciferol (vitamin D3) 125 125 mcg PO DAILY #90 caps 02/16/22 mcg (5,000 unit) capsule famotidine 40 mg tablet 40 mg PO DAILY #90 tabs 02/16/22 clopidogrel 75 mg tablet 75 mg PO DAILY #90 tabs 03/09/22 donepezil 5 mg tablet 5 mg PO BEDTIME #90 tabs 03/09/22 gabapentin 100 mg capsule 100 mg PO BID #180 caps 03/09/22 metoprolol succinate 25 mg 50 mg (2 x 25 mg) PO DAILY #90 tabs 03/09/22 tablet,extended release 24 hr allopurinol 100 mg tablet 100 mg PO DAILY 90 days #90 tabs 03/27/22 aspirin 81 mg capsule 81 mg PO DAILY #30 caps 06/26/22 polyethylene glycol 3350 17 17 g PO BID PRN constipation #238 11/10/22 gram/dose oral powder (Miralax) grams amlodipine 5 mg tablet 5 mg PO DAILY #90 tabs 05/06/24 phenazopyridine 100 mg tablet 200 mg (2 x 100 mg) PO TID 2 days 05/10/24 (Pyridium) #6 tabs Allergies Allergy/AdvReac Type Severity Reaction Status Date / Time atorvastatin Allergy Unknown pt does Verified 05/22/24 21:39 not know azithromycin Allergy Unknown pt does Verified 05/22/24 21:39 not know ceftriaxone Allergy Unknown pt does Verified 05/22/24 21:39 not know cephalexin Allergy Unknown pt does Verified 05/22/24 21:39 not know citalopram Allergy Unknown pt does Verified 05/22/24 21:39 not know levofloxacin Allergy Unknown pt does Verified 05/22/24 21:39 not know metformin Allergy Unknown pt does Verified 05/22/24 21:39 not know nitrofurantoin Allergy Unknown pt does Verified 05/22/24 21:39 not know oxycodone Allergy Unknown pt does Verified 05/22/24 21:39 not know penicillin V Allergy Unknown pt does Verified 05/22/24 21:39 not know pioglitazone Allergy Unknown pt does Verified 05/22/24 21:39 not know repaglinide Allergy Unknown pt does Verified 05/22/24 21:39 not know rosuvastatin [Crestor] Allergy Unknown pt does Verified 05/22/24 21:39 not know sertraline Allergy Unknown pt does Verified 05/22/24 21:39 not know simvastatin Allergy Unknown pt does Verified 05/22/24 21:39 not know sulfacetamide Allergy Unknown pt does Verified 05/22/24 21:39 not know aspirin Allergy Unknown Verified 05/22/24 21:39 Cefuroxime Sodium Allergy Unknown pt does Uncoded 05/22/24 21:39 not know Review of Systems 2 Review of Systems: Yes all other systems are reviewed and are negative [facility] Past Medical History Medical History Bilateral kidney stones Annual physical exam HTN (hypertension) IDDM (insulin dependent diabetes mellitus) Diverticulitis Nephrolithiasis Cataract Hyperlipidemia Pacemaker Myocardial infarct Macular degeneration Nephrolithiasis Dementia Frequent UTI HTN (hypertension) Hypothyroid Diabetes Surgical History Status post lumbar spine surgery for decompression of spinal cord H/O left knee surgery Family History Family History Father Heart attack Mother Heart problem Heart attack Substance use disorder Social History Social History Household Members: Other Household Members Other:: lives in assisted living Housing: Assisted Living Facility Housing Other:: [facility] Do you presently have visiting nurse or other home services: No Alcohol intake: never Comment: pt will get oob without assistance. Patient Tobacco Use Status: Former Tobacco user Tobacco use type: Cigarette Cigarettes Per Day: 10.0 Years Smoked: 54 Smoked in Last 30 Days: No e-Cigarette/Vaping Use: Never Used Second Hand Smoke Exposure: No Use of substances other than those prescribed or required for medical reasons: No Advance Directives: Yes Advance Directives on File: Yes Advance Directives Date on File: 11/05/20 Do you have a plan to hurt others: No Plan Patient : No service: No Current occupational status: retired Cognitive needs: No Hearing needs: No Vision needs: Yes Physical Exam 2 Vital Signs: Vital Signs: Last Vital Signs Temp 98.2 F 05/23/24 04:00 Pulse 60 05/23/24 04:00 Resp 16 05/23/24 04:00 BP 158/43 H 05/23/24 04:00 Pulse Ox 97 05/23/24 04:00 O2 Del Method Room Air 05/23/24 04:00 BMI result Body Mass Index 24.1 Appearance: Alert. Oriented X3. No acute distress. Eyes: PERRLA, No Nystagmus ENT: Pharynx normal. Oral Mucosa moist Neck: Normal inspection. Neck supple. CVS: Normal heart rate and rhythm. Pulses normal. Respiratory: No respiratory distress. Equal air entry bilateral, no wheezing/rales/rhonchi Abdomen: Soft and deep discomfort left lower quadrant, Bowel sounds are present, no mass palpable, no CVA tenderness Skin: Skin warm and dry. Normal skin color. Normal skin turgor. Extremities: No lower extremity edema. No calf tenderness Neuro: Oriented X 3. No motor deficit. Medications Administered Discontinued Medications Generic Name Dose Route Start Last Admin Trade Name Freq PRN Reason Stop Dose Admin Acetaminophen 650 mg 05/22/24 23:43 05/23/24 00:31 Acetaminophen 325 Mg Tablet PO 05/22/24 23:44 650 mg ONCE ONE Administration Magnesium Hydroxide 30 ml 05/23/24 00:16 05/23/24 00:32 Milk Of Magnesia 30 Ml Oral.Susp PO 05/23/24 00:17 30 ml NOW STA Administration Medical Decision Making Lab Data [facility] Lab Attestation statement: I reviewed the patient's lab results. 05/22/24 22:33 05/22/24 22:33 Labs: Lab Results 05/22/24 05/22/24 Range/Units 22:28 22:33 WBC 9.2 (4.8-10.8) X10*3/uL RBC 4.35 (4.20-5.50) X10*6/uL Hgb 12.5 (12.0-16.0) g/dl Hct 39.5 (37.0-47.0) % MCV 90.8 (80.0-98.0) fL MCH 28.7 (27.0-33.0) pg MCHC 31.6 (31.0-35.0) g/dl RDW 15.9 (11.0-16.0) % Plt Count 184 (160-400) X10*3/uL MPV 9.5 (9.4-12.3) fL Immature Gran % (Auto) 0.3 (0.0-0.4) % Neut % (Auto) 79.7 H (45-73) % Lymph % (Auto) 12.1 L (20-40) % [place] % (Auto) 6.2 (2-11) % Eos % (Auto) 1.0 (0-4) % Baso % (Auto) 0.7 (0-2) % Lymph # (Auto) 1.1 L (1.2-4.9) X10*3/uL [place] # (Auto) 0.6 (0.1-1.2) X10*3/uL Eos # (Auto) 0.1 (0.0-0.4) X10*3/uL Baso # (Auto) 0.1 (0.0-0.2) X10*3/uL Abs Immat Gran (auto) 0.03 (0.00-0.03) X10*3/uL Absolute Neuts (auto) 7.3 (2.0-8.3) x10*3/uL Absolute Nucleated RBC 0.000 (0.0-0.012) X10*3/uL Nucleated RBC % (auto) 0.0 (0.0-0.2) /100WBC Sodium 145 (135-145) mmol/L Potassium 3.9 (3.3-5.1) mmol/L Chloride 111 H (96-108) mmol/L Carbon Dioxide 25 (22-29) mmol/L Anion Gap 13 (12-20) BUN 17 H (9-16) mg/dL Creatinine 0.89 (0.5-1.4) mg/dL Estim Creat Clear Calc 41.7 Estimated GFR > 60 Random Glucose 149 H (60-115) mg/dL Calcium 9.1 (8.4-10.2) mg/dL Total Bilirubin 0.3 (0.0-1.0) mg/dL AST 20 (5-31) U/L ALT 11 (0-31) U/L Alkaline Phosphatase 87 (39-117) U/L Total Protein 6.5 (6.5-8.0) g/dL Albumin 3.6 (3.5-5.0) g/dL Urine Color Red A Urine Appearance Turbid Urine pH 7.5 (5.0-9.0) Ur Specific [place] 1.015 (1.005-1.025) Urine Protein 30 (1+) H (Neg-Trace) mg/dL Urine Glucose (UA) Negative (Negative) mg/dL Urine Ketones Negative (Negative) mg/dL Urine Blood Large (3+) H (Negative) Urine Nitrite Negative (Negative) Ur Leukocyte Esterase Small (1+) H (Negative) Urine RBC >20 H (0-2) /HPF Urine WBC 11-20 H (0-5) /HPF Ur Squamous Epith Cells 0-2 (0-2) /HPF Urine Bacteria None Seen (None Seen) Hyaline Casts 0-2 (0-2) /LPF Independent Interpretation I performed an independent interpretation of an: CT Scan Radiology Impression Discussion of test interpretation with radiology: I have reviewed the radiologist's reading. Radiologist Impression: Close Abdomen/Pelvis CT (Signed) Mick Carlos - 05/22/24 Launch?Image [place] [id number] [address] Scan Report Signed Patient: China Carter MR#: [id number] : 1945 Acct:[id number] Age/Sex: 78 / F ADM Date: 05/22/24 Loc: HO.ED Attending Dr: Ordering Physician: Smith Garcia MD Date of Service: 05/22/24 Procedure(s): CT abdomen pelvis wo IV con Accession Number(s): [id number] cc: Physician,Unknown ; Smith Garcia MD~ EXAMINATION: CT ABDOMEN AND PELVIS WITHOUT CONTRAST CLINICAL INFORMATION: Abdominal pain. COMPARISON: May 10, 2024 TECHNIQUE: Multidetector volumetric imaging was performed from the superior aspect of the liver through the pubic symphysis. Sagittal and coronal reformatted images were obtained on the technologist's workstation. This CT examination was performed using dose optimization techniques as appropriate, variously including the following: *Automated exposure control *Adjustment of mA and/or kV according to patient size (this includes techniques or standardized protocols for targeted exams where dose is matched to indication/reason for exam; i.e. extremities or head) *Use of iterative reconstruction technique DLP: 475 mGy-cm FINDINGS: LUNG BASES: The visualized lung bases are unremarkable. LIVER, GALLBLADDER, AND BILIARY TREE: The liver is normal in size, shape, and attenuation. No focal hepatic lesion or biliary ductal dilatation is present. The gallbladder is unremarkable with no evidence of radiopaque gallstones, gallbladder wall thickening, or obvious pericholecystic inflammatory changes. PANCREAS: Unremarkable. SPLEEN: Unremarkable. ADRENAL GLANDS: Bilateral adrenal gland thickening and nodularity. KIDNEYS AND URETERS: The kidneys are normal in size, shape, and attenuation. Bilateral renal calculi are again seen measuring up to 5 mm lower pole right kidney. A left double-J stent is noted with proximal stent within the left renal pelvis and distal stent extending into the urinary bladder. There is mild persistent left hydronephrosis similar to prior. BLADDER: Unremarkable. GASTROINTESTINAL TRACT: There is retained stool throughout the colon particularly within the rectosigmoid with rectal expansion up to 8.2 cm. There are diverticula of the distal transverse and descending colon without diverticulitis. Appendix is not confidently seen as a separate structure. ABDOMINAL WALL: No significant hernia is appreciated. LYMPH NODES: Normal. VASCULAR: There is atherosclerotic plaque throughout the abdominal aorta and proximal branches with a stable 3.6 cm infrarenal abdominal aortic aneurysm. PELVIC VISCERA: Unremarkable. OSSEOUS STRUCTURES: There is diffuse thoracolumbar degenerative change. CT/CT abdomen pelvis wo IV con IMPRESSION: 1. No acute abnormality. 2. Bilateral renal calculi with left double-J stent in place with mild persistent left hydronephrosis. 3. Stable 3.6 cm infrarenal abdominal aortic aneurysm. 4. Retained stool throughout the colon particularly within the rectosigmoid with rectal expansion up to 8.2 cm. 5. Diverticulosis without diverticulitis. 6. Stable bilateral adrenal gland thickening and nodularity. Fleischner guidelines were followed. Electronically signed by: Mick Carlos MD 05/23/2024 02:33 AM EST Discharge Plan Discharge Clinical Impression: Abdominal pain, Constipation Patient Disposition: Xfer SNF Transfer Details: Patient's workup showed constipation no signs of infection patient has blood in the urine because of the stent. Patient received enema and had good bowel movement in the ER follow up with urologist Instructions: Constipation (ED), Abdominal Pain (ED) Prescriptions: No Action (DME) blood-glucose meter [OneTouch Ultra2 Meter] Misc See Rx Instructions .ROUTE .MEDSUPPLY Qty: 100 3RF Rx Instructions: tid pyridoxine (vitamin B6) 100 mg tablet 100 mg PO DAILY 90 Days Qty: 90 3RF (DME) pen needle, diabetic [Comfort EZ Pen [place]] 33 gauge x 5/32 needle See Rx Instructions .Route Qty: 100 3RF Rx Instructions: As directed cyanocobalamin (vitamin B-12) 1,000 mcg tablet 1,000 mcg PO DAILY Qty: 30 8RF (DME) FreeStyle Lite Strips Strip See Rx Instructions .Route Qty: 100 5RF Rx Instructions: test blood sugar 3 times per day famotidine 40 mg tablet 40 mg PO DAILY Qty: 90 3RF cholecalciferol (vitamin D3) 125 mcg (5,000 unit) capsule 125 mcg PO DAILY Qty: 90 3RF donepezil 5 mg tablet 5 mg PO BEDTIME Qty: 90 3RF metoprolol succinate 25 mg tablet extended release 24 hr 50 mg PO DAILY Qty: 90 3RF gabapentin 100 mg capsule 100 mg PO BID Qty: 180 3RF clopidogrel 75 mg tablet 75 mg PO DAILY Qty: 90 3RF allopurinol 100 mg tablet 100 mg PO DAILY 90 Days Qty: 90 1RF polyethylene glycol 3350 [Miralax] 17 gram/dose powder 17 g PO BID PRN (Reason: constipation) Qty: 238 0RF Rx Instructions: If no BM x 3 days lisinopril 40 mg Tablet 40 mg PO DAILY aspirin 81 mg capsule 81 mg PO DAILY Qty: 30 0RF acetaminophen 325 mg Tablet 650 mg PO Q4H PRN (Reason: Pain) loperamide 2 mg Capsule 2 mg PO Q4H PRN (Reason: LOOSE STOOLS) Rx Instructions: administer after each loose stool until symptoms controlled; do not exceed 8 mg per 24 hrs sennosides-docusate sodium [Stool Softener-Laxative] 8.6-50 mg tablet 2 tab PO BID magnesium hydroxide [Milk of Magnesia] 400 mg/5 mL Suspension 30 ml PO DAILY PRN (Reason: Constipation) alum-mag hydroxide-simeth [Mintox] 200-200-20 mg/5 mL Suspension 30 ml PO Q4H PRN (Reason: GI UPSET) Rx Instructions: administer between meals and at bedtime glycerin (adult) Suppository 1 supp AK DAILY PRN (Reason: Constipation) PreserVision AREDS 2,148 mcg-113 mg-45 mg-17.4mg tablet 1 tab PO BID phenazopyridine [Pyridium] 100 mg tablet 200 mg PO TID 2 Days Qty: 6 0RF Tresiba FlexTouch U-100 100 unit/mL (3 mL) insulin pen 18 unit subcut BEDTIME Qty: 15 4RF rosuvastatin 20 mg tablet 20 mg PO BEDTIME (DME) lancets [OneTouch Delica Lancets] 33 gauge misc See Rx Instructions .ROUTE .MEDSUPPLY Qty: 100 5RF Rx Instructions: TID (DME) blood sugar diagnostic Strip See Rx Instructions .ROUTE .MEDSUPPLY Qty: 100 4RF Rx Instructions: tid amlodipine 5 mg tablet 5 mg PO DAILY Qty: 90 0RF Print Language: Turkmen
[2024-05-22 22:16] VITALS: BP 171/87; PULSE 72; O2SAT 97
[2024-05-22 22:38] LABS: Appearance Urine Turbid; Color Urine Red; Glucose Urine UA Negative (Negative); Leukocyte Esterase Urine Small (1+) (Negative); Nitrite Urine Negative (Negative); PH 7.5 (5.0-9.0); Specific Gravity - Urine 1.015 (1.005-1.025); UMIC TRIGGER UACC YES; Urine Blood Large (3+) (Negative); Urine Ketones Negative (Negative); Urine Protein 30 (1+) mg/dL (Neg-Trace)
[2024-05-22 22:40] LABS: Basophils Absolute Auto 0.1 X10*3/uL (0.0-0.2); Basophils Percent Auto 0.7 % (0-2); Eosinophils Absolute Auto 0.1 X10*3/uL (0.0-0.4); Hematocrit 39.5 % (37.0-47.0); Hemoglobin 12.5 g/dl (12.0-16.0); Imm Gran Abs Auto 0.03 X10*3/uL (0.00-0.03); Imm Gran Pct Auto 0.3 % (0.0-0.4); Lymphocytes Absolute Auto 1.1 X10*3/uL (1.2-4.9); Lymphocytes Percent Auto 12.1 % (20-40); MANUAL DIFF FLAG NO; Mean Corpuscular HGB Conc 31.6 g/dl (31.0-35.0); Mean Corpuscular Hemoglobin 28.7 pg (27.0-33.0); Mean Corpuscular Volume 90.8 fL (80.0-98.0); Mean Platelet Volume 9.5 fL (9.4-12.3); Monocytes Absolute Auto 0.6 X10*3/uL (0.1-1.2); Monocytes Percent Auto 6.2 % (2-11); Neutrophils Absolute Auto 7.3 x10*3/uL (2.0-8.3); Neutrophils Percent Auto 79.7 % (45-73); Platelet Count 184 X10*3/uL (160-400); Red Blood Count 4.35 X10*6/uL (4.20-5.50); Red Cell Distribution Width 15.9 % (11.0-16.0); White Blood Count 9.2 X10*3/uL (4.8-10.8)
[2024-05-22 22:42] LABS: Bacteria Urine None Seen (None Seen); Hyaline Casts Urine 0-2 /LPF (0-2); RBC Urine >20 /HPF (0-2); Squamous Epithelial Cell Urine 0-2 /HPF (0-2); UACC Culture Trigger YES
--- NOTE | 2024-05-22 22:47 | PC.NURSE ---
labs obtained- pt seen by MD Turpin- pt awating results of CT abdomen pelvis.
[2024-05-22 22:54] LABS: Alanine Aminotransferase 11 U/L (0-31); Albumin Level 3.6 g/dL (3.5-5.0); Alkaline Phosphatase 87 U/L (39-117); Anion Gap 13 (12-20); Aspartate Amino Transferase 20 U/L (5-31); Bilirubin Total 0.3 mg/dL (0.0-1.0); Blood Urea Nitrogen 17 mg/dL (9-16); Calcium 9.1 mg/dL (8.4-10.2); Carbon Dioxide 25 mmol/L (22-29); Chloride 111 mmol/L (96-108); Creatinine Clr Calc Pharmacy 41.7; Estimated Glomerular Filt Rate > 60; Glucose Random 149 mg/dL (60-115); Potassium 3.9 mmol/L (3.3-5.1); Sodium 145 mmol/L (135-145); Total Protein 6.5 g/dL (6.5-8.0)
[2024-05-23 00:08] VITALS: BP 165/58; PULSE 64; RESP 16; TEMP 37.5; O2SAT 96
[2024-05-23] MEDS: Acetaminophen 325 MG TABLET 650 MG PO (00:31)
[2024-05-23] MEDS: Milk of Magnesia 30 ML ORAL.SUSP PO (00:32)
[2024-05-23 04:00] VITALS: BP 158/43; PULSE 60; RESP 16; TEMP 36.8; O2SAT 97
--- NOTE | 2024-05-23 04:11 | PC.NURSE ---
Soap suds enema administered. Pt tolerated well. Commode at bedside. Pt encouraged to move the bowels.
--- NOTE | 2024-05-23 05:00 | PC.NURSE ---
Pt had a moderate bowel movement, formed and brown. No presence of blood or mucus. Pt appears comfortable. Reports lower abd pain, 8/10. MD made aware.
[2024-05-23 07:47] VITALS: BP 158/43; PULSE 60; RESP 16; TEMP 36.8; O2SAT 97
== END 2024-05-23 07:47 | disposition skilled nursing facility (03) ==
PROVIDERS: Emergency Provider Internal Medicine
DX: R10.9 Unspecified abdominal pain (principal); K59.00 Constipation, unspecified; E11.9 Type 2 diabetes mellitus without complications; I10 Essential (primary) hypertension; E78.5 Hyperlipidemia, unspecified; E03.9 Hypothyroidism, unspecified; Z87.891 Personal history of nicotine dependence; Z79.82 Long term (current) use of aspirin; Z79.899 Other long term (current) drug therapy; Z79.02 Long term (current) use of antithrombotics/antiplatelets
CPT/HCPCS: 36415; 74176; 80053; 81001; 85025; 87086; 99284

== ENCOUNTER 2024-05-23 12:44 | Emergency (ER) | payer MEDICARE, MEDICAID, SELFPAY ==
--- NOTE | ~2024-05-23 | XR_ITS ---
EXAMINATION: XR ABDOMEN KUB CLINICAL INDICATION: Constipation. COMPARISON: CT abdomen and pelvis from 05/22/2024. TECHNIQUE: AP view of the abdomen. FINDINGS: Left-sided double-J ureteral stent in place. Partially visualized pacemaker leads. Nonobstructive bowel gas pattern. Gas and stool demonstrated throughout the entirety of the colon, including the rectum. Moderate stool burden within the sigmoid colon/rectum. No dilated loops of small bowel are demonstrated. No evidence of free intra-abdominal gas on the upright imaging. No abnormal abdominal calcifications demonstrated. No evidence of visceromegaly. No acute osseous abnormalities demonstrated. 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 Moderate multilevel degenerative spondyloarthropathy of the lumbar spine. Moderate right-sided and mild left-sided hip joint arthropathy. The visualized lung bases are clear. XR/XR KUB IMPRESSION: 1. Nonobstructive bowel gas pattern. 2. Moderate stool burden within the sigmoid colon/rectum. 3. Left-sided double-J ureteral stent in place. Electronically signed by: Blake Leavitt DO 05/23/2024 05:53 PM EST
[2024-05-23 12:55] VITALS: BP 128/76; PULSE 66; O2SAT 97
[2024-05-23 12:56] VITALS: BP 159/69; PULSE 65; RESP 16; TEMP 37; O2SAT 95; BMI 21.0
--- NOTE | 2024-05-23 15:07 | ED.FEMALEGU ---
HPI - Female Genitourinary General Chief complaint: Urogenital-Female Stated complaint: UT SYMPTOMS,DIZZY PER EMS Time Seen by Provider: 05/23/24 15:26 Source: patient and EMS Mode of arrival: EMS Limitations: no limitations History of Present Illness ED Provider: Brittni Hood NP HPI Narrative: patient is an 78-year-old female Past medical history of nephrolithiasis, left ureteric stent placed on 04/22 , frequent UTI, diabetes, GERD, dementia, hypothyroidism, hypertension , hyperlipidemia who presents emergency department via EMS for re-evaluation. Patient was discharged from the emergency department at 07:45 this morning, and brought back to the emergency department at 12:55. Patient was endorsing pain to the left lower abdomen, has had multiple prior visits this month as well 05/10 and 05/[address] and no obstructive stone. She had a CT of the abdomen and pelvis earlier today without contrast which revealed bilateral renal calculi, left ureteric stent in place, mild persistent left hydronephrosis, as well as retained stool throughout the colon particularly within the rectosigmoid with rectal expansion up to 8.2 cm. As per medical records she received an enema in the emergency department with a good bowel movement following and she was discharged back to facility with diagnosis of constipation recommendation to follow-up outpatient with urologist. Evidently since she returned to the nursing facility she continued to present to the nursing station endorsing persistent left lower abdomen discomfort. EMS reported that the nursing staff was unable to get in touch with the patient's daughter and therefore they transferred her back to the emergency department. Related Data Home Medications ?Medication ?Instructions ?Recorded ?Confirmed lisinopril 40 mg tablet 40 mg PO DAILY 11/04/20 05/06/24 rosuvastatin 20 mg tablet 20 mg PO BEDTIME 12/14/21 05/06/24 acetaminophen 325 mg tablet 650 mg PO Q4H PRN Pain 04/16/24 05/06/24 aluminum-mag hydroxide-simethicone 30 ml PO Q4H PRN GI UPSET 04/16/24 05/06/24 200 mg-200 mg-20 mg/5 mL oral susp (Mintox) glycerin (adult) 1 supp WA DAILY PRN Constipation 04/16/24 05/06/24 loperamide 2 mg capsule 2 mg PO Q4H PRN LOOSE STOOLS 04/16/24 05/06/24 magnesium hydroxide 400 mg/5 mL 30 ml PO DAILY PRN Constipation 04/16/24 05/06/24 oral suspension (Milk of Magnesia) sennosides 8.6 mg-docusate sodium 2 tab PO BID 04/16/24 05/06/24 50 mg tablet (Stool Softener-Laxative) vitamins A,C,J-qobm-shebnu 2,148 1 tab PO BID 04/16/24 05/06/24 mcg-113 mg-45 mg-17.4 mg tablet (PreserVision AREDS) Previous Rx's ?Medication ?Instructions ?Recorded blood-glucose meter (OneTouch #100 ea 09/01/20 Ultra2 Meter) insulin degludec 100 unit/mL (3 18 unit (0.18 mL) subcut BEDTIME 07/20/21 mL) subcutaneous pen (Tresiba #15 mL FlexTouch U-100 insulin) pyridoxine (vitamin B6) 100 mg 100 mg PO DAILY 90 days #90 tabs 09/27/21 tablet blood sugar diagnostic #100 ea 10/20/21 lancets 33 gauge (OneTouch Delica #100 ea 10/20/21 Lancets) pen needle, diabetic 33 gauge x #100 ea 11/18/21 5/32 (Comfort EZ Pen [place]) cyanocobalamin (vitamin B-12) 1,000 mcg PO DAILY #30 tabs 12/30/21 1,000 mcg tablet blood sugar diagnostic (FreeStyle #100 ea 01/13/22 Lite Strips) cholecalciferol (vitamin D3) 125 125 mcg PO DAILY #90 caps 02/16/22 mcg (5,000 unit) capsule famotidine 40 mg tablet 40 mg PO DAILY #90 tabs 02/16/22 clopidogrel 75 mg tablet 75 mg PO DAILY #90 tabs 03/09/22 donepezil 5 mg tablet 5 mg PO BEDTIME #90 tabs 03/09/22 gabapentin 100 mg capsule 100 mg PO BID #180 caps 03/09/22 metoprolol succinate 25 mg 50 mg (2 x 25 mg) PO DAILY #90 tabs 03/09/22 tablet,extended release 24 hr allopurinol 100 mg tablet 100 mg PO DAILY 90 days #90 tabs 03/27/22 aspirin 81 mg capsule 81 mg PO DAILY #30 caps 06/26/22 polyethylene glycol 3350 17 17 g PO BID PRN constipation #238 11/10/22 gram/dose oral powder (Miralax) grams amlodipine 5 mg tablet 5 mg PO DAILY #90 tabs 05/06/24 phenazopyridine 100 mg tablet 200 mg (2 x 100 mg) PO TID 2 days 05/10/24 (Pyridium) #6 tabs Allergies Allergy/AdvReac Type Severity Reaction Status Date / Time atorvastatin Allergy Unknown pt does Verified 05/23/24 12:59 not know azithromycin Allergy Unknown pt does Verified 05/23/24 12:59 not know ceftriaxone Allergy Unknown pt does Verified 05/23/24 12:59 not know cephalexin Allergy Unknown pt does Verified 05/23/24 12:59 not know citalopram Allergy Unknown pt does Verified 05/23/24 12:59 not know levofloxacin Allergy Unknown pt does Verified 05/23/24 12:59 not know metformin Allergy Unknown pt does Verified 05/23/24 12:59 not know nitrofurantoin Allergy Unknown pt does Verified 05/23/24 12:59 not know oxycodone Allergy Unknown pt does Verified 05/23/24 12:59 not know penicillin V Allergy Unknown pt does Verified 05/23/24 12:59 not know pioglitazone Allergy Unknown pt does Verified 05/23/24 12:59 not know repaglinide Allergy Unknown pt does Verified 05/23/24 12:59 not know rosuvastatin [Crestor] Allergy Unknown pt does Verified 05/23/24 12:59 not know sertraline Allergy Unknown pt does Verified 05/23/24 12:59 not know simvastatin Allergy Unknown pt does Verified 05/23/24 12:59 not know sulfacetamide Allergy Unknown pt does Verified 05/23/24 12:59 not know aspirin Allergy Unknown Verified 05/23/24 12:59 Cefuroxime Sodium Allergy Unknown pt does Uncoded 05/22/24 21:39 not know Review of Systems Review of Systems: Yes all other systems are reviewed and are negative PMFSH Past Medical History Attestation statement: The following information was validated with the patient. Source: old records reviewed Medical History Bilateral kidney stones Annual physical exam HTN (hypertension) IDDM (insulin dependent diabetes mellitus) Diverticulitis Nephrolithiasis Cataract Hyperlipidemia Pacemaker Myocardial infarct Macular degeneration Nephrolithiasis Dementia Frequent UTI HTN (hypertension) Hypothyroid Diabetes Surgical History Status post lumbar spine surgery for decompression of spinal cord H/O left knee surgery Family History Family History Father Heart attack Mother Heart problem Heart attack Substance use disorder Social History Social History Household Members: Other Household Members Other:: lives in assisted living Housing: Assisted Living Facility Housing Other:: [facility] Do you presently have visiting nurse or other home services: No Alcohol intake: never Comment: pt will get oob without assistance. Patient Tobacco Use Status: Former Tobacco user Tobacco use type: Cigarette Cigarettes Per Day: 10.0 Years Smoked: 54 e-Cigarette/Vaping Use: Never Used Second Hand Smoke Exposure: No Advance Directives: Yes Advance Directives on File: Yes Advance Directives Date on File: 11/05/20 service: No Current occupational status: retired Cognitive needs: No Hearing needs: No Vision needs: Yes Physical Exam Vital Signs: Vital Signs: Last Vital Signs Temp 98.7 F 05/23/24 15:55 Pulse 60 05/23/24 15:55 Resp 17 05/23/24 15:55 BP 176/63 H 05/23/24 15:55 Pulse Ox 97 05/23/24 15:55 O2 Del Method Room Air 05/23/24 15:55 BMI result Body Mass Index 21.0 Appearance: Alert. No acute distress.?Normal affect. Eyes: Pupils equal, round and reactive to light.? ENT: Pharynx normal.?? Neck: Normal inspection.? Neck supple.?? CVS: Heart sounds normal. Normal heart rate and rhythm.? Pulses normal.?? Respiratory: No respiratory distress.? Lung sounds clear to auscultation bilaterally?? Abdomen: Soft and non-tender. Normoactive bowel sounds. No pulsatile mass.?? No CVAT. Skin: Skin warm and dry.? Normal skin color.? ? Extremities: No lower extremity edema.? Neuro: Moves all extremities spontaneously. Sensation intact bilaterally. Course Reevaluation(s) Reevaluation #1: Second enema with small bowel movement following. Patient to be transferred back to assisted facility with recommendations for bowel regimen Medications Administered Discontinued Medications Generic Name Dose Route Start Last Admin Trade Name Shakir PRN Reason Stop Dose Admin Mineral Oil 133 ml 05/23/24 15:25 05/23/24 15:58 Mineral Oil Enema 133 Ml Enema WA 05/23/24 15:26 133 ml ONCE ONE Administration Medical Decision Making Medical Decision Making [facility] Narrative: patient is an 78-year-old female Past medical history of nephrolithiasis, left ureteric stent placed on 04/22 , frequent UTI, diabetes, GERD, dementia, hypothyroidism, hypertension , hyperlipidemia who presents back to emergency department despite discharge back to assisted facility earlier this morning with continued report of left lower abdominal pain despite reported moderate bowel movement following enema. given the CT findings as per HPI, I suspect that she continues to have constipation despite this moderate bowel movement. KUB was obtained, on my impression appears to have continued ball of fecal matter within the pelvis, on digital rectal examination I do not appreciate stools in the rectal vault that would be amenable to manual disimpaction. plan to trial 2nd fleets enema. Differential Diagnosis Differential Diagnoses: The differential diagnosis associated with the presentation includes ( see narrative above) Independent Interpretation I performed an independent interpretation of an: Plain X-Ray ( KUB appears show evidence of retained fecal matter within the pelvis) Radiology Impression Discussion of test interpretation with radiology: I have reviewed the radiologist's reading. Radiologist Impression: XR/XR KUB IMPRESSION: 1. Nonobstructive bowel gas pattern. 2. Moderate stool burden within the sigmoid colon/rectum. 3. Left-sided double-J ureteral stent in place. Discharge Plan Discharge Clinical Impression: Constipation Patient Disposition: Xfer [facility] Additional Instructions: despite the enema on KUB x-ray she continues to appear constipated. She received a 2nd enema here today with a small bowel movement after. Consider use Of MiraLax and/ or Colace/senna for regulation of bowel movements. She may continue to have the reported pain she is expressing until the constipation resolves. Prescriptions: No Action (DME) blood-glucose meter [OneTouch Ultra2 Meter] Misc See Rx Instructions .ROUTE .MEDSUPPLY Qty: 100 3RF Rx Instructions: tid pyridoxine (vitamin B6) 100 mg tablet 100 mg PO DAILY 90 Days Qty: 90 3RF (DME) pen needle, diabetic [Comfort EZ Pen [place]] 33 gauge x 5/32 needle See Rx Instructions .Route Qty: 100 3RF Rx Instructions: As directed cyanocobalamin (vitamin B-12) 1,000 mcg tablet 1,000 mcg PO DAILY Qty: 30 8RF (DME) FreeStyle Lite Strips Strip See Rx Instructions .Route Qty: 100 5RF Rx Instructions: test blood sugar 3 times per day famotidine 40 mg tablet 40 mg PO DAILY Qty: 90 3RF cholecalciferol (vitamin D3) 125 mcg (5,000 unit) capsule 125 mcg PO DAILY Qty: 90 3RF donepezil 5 mg tablet 5 mg PO BEDTIME Qty: 90 3RF metoprolol succinate 25 mg tablet extended release 24 hr 50 mg PO DAILY Qty: 90 3RF gabapentin 100 mg capsule 100 mg PO BID Qty: 180 3RF clopidogrel 75 mg tablet 75 mg PO DAILY Qty: 90 3RF allopurinol 100 mg tablet 100 mg PO DAILY 90 Days Qty: 90 1RF polyethylene glycol 3350 [Miralax] 17 gram/dose powder 17 g PO BID PRN (Reason: constipation) Qty: 238 0RF Rx Instructions: If no BM x 3 days lisinopril 40 mg Tablet 40 mg PO DAILY aspirin 81 mg capsule 81 mg PO DAILY Qty: 30 0RF acetaminophen 325 mg Tablet 650 mg PO Q4H PRN (Reason: Pain) loperamide 2 mg Capsule 2 mg PO Q4H PRN (Reason: LOOSE STOOLS) Rx Instructions: administer after each loose stool until symptoms controlled; do not exceed 8 mg per 24 hrs sennosides-docusate sodium [Stool Softener-Laxative] 8.6-50 mg tablet 2 tab PO BID magnesium hydroxide [Milk of Magnesia] 400 mg/5 mL Suspension 30 ml PO DAILY PRN (Reason: Constipation) alum-mag hydroxide-simeth [Mintox] 200-200-20 mg/5 mL Suspension 30 ml PO Q4H PRN (Reason: GI UPSET) Rx Instructions: administer between meals and at bedtime glycerin (adult) Suppository 1 supp WA DAILY PRN (Reason: Constipation) PreserVision AREDS 2,148 mcg-113 mg-45 mg-17.4mg tablet 1 tab PO BID phenazopyridine [Pyridium] 100 mg tablet 200 mg PO TID 2 Days Qty: 6 0RF Tresiba FlexTouch U-100 100 unit/mL (3 mL) insulin pen 18 unit subcut BEDTIME Qty: 15 4RF rosuvastatin 20 mg tablet 20 mg PO BEDTIME (DME) lancets [OneTouch Delica Lancets] 33 gauge misc See Rx Instructions .ROUTE .MEDSUPPLY Qty: 100 5RF Rx Instructions: TID (DME) blood sugar diagnostic Strip See Rx Instructions .ROUTE .MEDSUPPLY Qty: 100 4RF Rx Instructions: tid amlodipine 5 mg tablet 5 mg PO DAILY Qty: 90 0RF Referrals: Physician,Unknown J [Primary Care Provider] - Print Language: Citizen Of [place]
[2024-05-23 15:55] VITALS: BP 176/63; PULSE 60; RESP 17; TEMP 37.1; O2SAT 97
[2024-05-23] MEDS: Mineral OiL enema 133 ML ENEMA PR (15:58)
--- NOTE | 2024-05-23 18:06 | PC.NURSE ---
pt had small firm BM after enema. [facility] notified
[2024-05-23 18:18] VITALS: BP 168/73; PULSE 60; RESP 15; TEMP 36.8; O2SAT 96
--- NOTE | 2024-05-23 19:37 | PC.NURSE ---
attempted to call pt daughter to see if she can pick pt up as ambulances are very backed up and [facility] wont be able to bring her back to facility until at least 2300. no answer from daughter at this time
[2024-05-23 21:28] VITALS: BP 168/73; PULSE 60; RESP 15; TEMP 36.8; O2SAT 96
== END 2024-05-23 21:29 | disposition skilled nursing facility (03) ==
PROVIDERS: Emergency Provider Emergency Medicine Emergency Medical Services
DX: K59.00 Constipation, unspecified (principal); R10.32 Left lower quadrant pain; E11.9 Type 2 diabetes mellitus without complications; K21.9 Gastro-esophageal reflux disease without esophagitis; I10 Essential (primary) hypertension; E03.9 Hypothyroidism, unspecified; F03.90 Unspecified dementia, unspecified severity, without behavioral disturbance, psychotic disturbance, mood disturbance, and anxiety; E78.5 Hyperlipidemia, unspecified; Z79.899 Other long term (current) drug therapy; Z87.440 Personal history of urinary (tract) infections
CPT/HCPCS: 74018; 99284

== ENCOUNTER 2024-06-02 17:03 | Emergency (ER) | payer MEDICARE, MEDICAID, SELFPAY ==
--- NOTE | ~2024-06-02 | CT_ITS ---
CLINICAL HISTORY: left flanlk pain similar to prior kidney stones CT abdomen and pelvis without contrast Comparison: 05/22/24 Findings: There is a left ureteral stent which begins in the inferior portion of the left renal pelvis and terminates in the bladder. There is mild fullness of the left renal pelvis with mucosal thickening and adjacent fat stranding, similar to the prior study. Left nephrolithiasis measures up to 3 mm. Mild left renal scarring. No right hydronephrosis. Right nephrolithiasis measures up to 2 mm. Subcentimeter hyperattenuating right renal lesion, indeterminate. No bladder stone. No consolidation at the lung bases. Severe calcified coronary artery disease. Unremarkable gallbladder. Status post hysterectomy. The other solid organs are normal. The distal sigmoid colon is distended with stool, measuring 8.6 cm in transverse dimension, similar to the prior study. The rectum is more normal in size and measures up to 5.3 cm in transverse dimension. There is wall thickening of the sigmoid colon and rectum, most prominent at the rectosigmoid junction, similar to the prior study. Colonic diverticulosis. A normal appendix is identified. Infrarenal abdominal aortic aneurysm measuring up to 3.7 cm, unchanged. Severe calcified atherosclerotic disease. No lymphadenopathy. No ascites. No acute fracture. Impression: Left ureteral stent in appropriate position. Mild fullness of the left renal pelvis with mucosal thickening and adjacent fat stranding which could be secondary to obstruction or infectious/inflammatory. Correlate with urinalysis. Persistent distention of the distal sigmoid colon with stool may indicate fecal impaction. There is rectosigmoid wall thickening which could be infectious/inflammatory. Developing stercoral colitis could be considered.. Consider follow up with colonoscopy to exclude a lesion. This document has been electronically signed by: Wendy Mathis MD on 06/02/2024 19:17:52
--- NOTE | ~2024-06-02 | CT_ITS ---
CLINICAL HISTORY: altered mental status CT head without contrast Comparison: 04/14/24 Findings: No acute hemorrhage. No extra-axial fluid collection. No hydrocephalus, mass-effect or herniation. Bernard-white differentiation is maintained. There is patchy hypoattenuation of the periventricular and deep white matter, which is most likely the sequela of moderate chronic small vessel ischemic disease and is similar to the prior study. Chronic lacunar infarctions in the right thalamus and basal ganglia. No acute orbital pathology. No acute soft tissue abnormality. No fracture. Mild mucosal thickening and fluid in the left maxillary sinus may indicate sinusitis. There is osseous thickening which could be due to chronicity. The other visualized paranasal sinuses are predominantly clear. The mastoid air cells are clear. Impression: No acute intracranial findings. This document has been electronically signed by: Wendy Mathis MD on 06/02/2024 23:17:03
--- NOTE | ~2024-06-02 | CT_ITS ---
EXAMINATION: CT ABDOMEN AND PELVIS WITH CONTRAST CLINICAL INFORMATION: Acutely worsening abdominal pain COMPARISON: CT abdomen and pelvis 06/02/2024. TECHNIQUE: Multidetector volumetric images were obtained from the superior aspect of the liver through the pubic symphysis following administration 85 mL of Omnipaque 350 intravenous contrast. Sagittal and coronal reformatted images were obtained on the technologist's workstation. Oral contrast: No This CT examination was performed using dose optimization techniques as appropriate, variously including the following: *Automated exposure control *Adjustment of mA and/or kV according to patient size (this includes techniques or standardized protocols for targeted exams where dose is matched to indication/reason for exam; i.e. extremities or head) *Use of iterative reconstruction technique DLP: 345 mGy-cm. FINDINGS: LUNG BASES: There is dependent bibasilar atelectasis. Heart size is normal. There are pacer electrodes in right atrium and right ventricle. LIVER, GALLBLADDER, AND BILIARY TREE: The liver is normal in size, shape, and attenuation. No focal hepatic lesion or biliary ductal dilatation is present. The gallbladder is unremarkable with no evidence of radiopaque gallstones, gallbladder wall thickening, or obvious pericholecystic inflammatory changes. PANCREAS: Unremarkable. SPLEEN: Unremarkable. ADRENAL GLANDS: Unremarkable. KIDNEYS AND URETERS: The right kidney is unremarkable. There is a left internal ureteral stent in good position with persistent dilated left kidney pelvis. There are small stones in the upper pole left kidney measuring 1 to 2 mm on axial image 35/3. Persistent dilation of left kidney pelvis in spite of intraluminal stent is questionable for patency of the stent. Underlying inflammatory process of the left renal pelvis is not entirely excluded BLADDER: Unremarkable. GASTROINTESTINAL TRACT: Large amount of stool in the right colon and sigmoid region similar previous study. Mild focal mural thickening seen in the sigmoid colon may represent nonspecific colitis. However there is no pericolic fat stranding seen. This best visualized on axial image 68/3. ABDOMINAL WALL: There are subtle opacities in the right abdominal wall likely injection granulomas. No evidence of hernia. LYMPH NODES: Normal. VASCULAR: There is aneurysmal dilatation of mid abdominal aorta measuring 3.0 x 3.22 cm and circumferential thrombus. The common iliac artery is of normal caliber. PELVIC VISCERA: No free air or free fluid seen. There are phleboliths in the pelvis. OSSEOUS STRUCTURES: Mild degenerative disc changes L5-S1 disc level. CT/CT abdomen pelvis w IV con IMPRESSION: Small left renal calculi. Internal ureteral stent with persistent dilation of left kidney pelvis. Unchanged since last exam. Question patency of the ureteral stent. Refer to urology. Moderate to significant constipation with gaseous prominence of transverse colon similar to previous study. No small bowel obstruction suspected. Findings are most likely secondary to fecal impaction. There is mural thickening seen in the sigmoid colon. Recommend bedside enema followed by sigmoidoscopy. Electronically signed by: John Gerber MD 06/03/2024 03:10 PM [facility]GER
[2024-06-02 17:13] VITALS: BP 142/88; PULSE 75; O2SAT 96
[2024-06-02 17:20] VITALS: BP 151/50; PULSE 61; RESP 16; TEMP 37; O2SAT 96; BMI 25.9
--- NOTE | 2024-06-02 17:35 | ED_ITS ---
HPI - Female Genitourinary General Chief complaint: Urogenital-Female Stated complaint: UTI Time Seen by Provider: 06/02/24 17:35 History of Present Illness ED Provider: Silvano RAE Narrative: The patient is an 78-year-old woman who told me that she has had left flank and left lower quadrant abdominal pain for about 2 days. She says the pain feels like pain she has had with kidney stones in the past. She has had no fever or vomiting. The patient lives at a local rest home. She told me that she has been there for only a couple of months. She used to live on [facility]. Additional history was obtained from speaking to a nurse at the patient's rest home and also to the patient's daughter. In fact the patient has lived in this area for several years. The patient has significant dementia. According to a nurse at the patient's rest home the patient has seemed more demented over the last few days. She has been wandering more. The nurse says that the patient has been ?cheeking? her medications. The nurse says the patient has been more incontinent than usual. The nurse told me that there has been no indication that the patient was having pain and that pain was not the reason the patient was sent to the emergency room. The patient was sent to the emergency room because of the change in her behavior. No report of any fevers. No vomiting. Related Data Home Medications ?Medication ?Instructions ?Recorded ?Confirmed lisinopril 40 mg tablet 40 mg PO DAILY 11/04/20 06/03/24 rosuvastatin 20 mg tablet 20 mg PO BEDTIME 12/14/21 06/03/24 acetaminophen 325 mg tablet 650 mg PO Q4H PRN Pain 04/16/24 06/03/24 aluminum-mag hydroxide-simethicone 30 ml PO Q4H PRN GI UPSET 04/16/24 05/06/24 200 mg-200 mg-20 mg/5 mL oral susp (Mintox) glycerin (adult) 1 supp ND DAILY PRN Constipation 04/16/24 06/03/24 loperamide 2 mg capsule 2 mg PO Q4H PRN LOOSE STOOLS 04/16/24 06/03/24 magnesium hydroxide 400 mg/5 mL 30 ml PO DAILY PRN Constipation 04/16/24 06/03/24 oral suspension (Milk of Magnesia) sennosides 8.6 mg-docusate sodium 2 tab PO BID 04/16/24 06/03/24 50 mg tablet (Stool Softener-Laxative) vitamins A,C,R-tkfv-anxebr 2,148 1 tab PO BID 04/16/24 06/03/24 mcg-113 mg-45 mg-17.4 mg tablet (PreserVision AREDS) Previous Rx's ?Medication ?Instructions ?Recorded blood-glucose meter (OneTouch #100 ea 09/01/20 Ultra2 Meter) insulin degludec 100 unit/mL (3 18 unit (0.18 mL) subcut BEDTIME 07/20/21 mL) subcutaneous pen (Tresiba #15 mL FlexTouch U-100 insulin) pyridoxine (vitamin B6) 100 mg 100 mg PO DAILY 90 days #90 tabs 09/27/21 tablet blood sugar diagnostic #100 ea 10/20/21 lancets 33 gauge (OneTouch Delica #100 ea 10/20/21 Lancets) pen needle, diabetic 33 gauge x #100 ea 11/18/21 5/32 (Comfort EZ Pen [place]) cyanocobalamin (vitamin B-12) 1,000 mcg PO DAILY #30 tabs 12/30/21 1,000 mcg tablet blood sugar diagnostic (FreeStyle #100 ea 01/13/22 Lite Strips) cholecalciferol (vitamin D3) 125 125 mcg PO DAILY #90 caps 02/16/22 mcg (5,000 unit) capsule famotidine 40 mg tablet 40 mg PO DAILY #90 tabs 02/16/22 clopidogrel 75 mg tablet 75 mg PO DAILY #90 tabs 03/09/22 donepezil 5 mg tablet 5 mg PO BEDTIME #90 tabs 03/09/22 gabapentin 100 mg capsule 100 mg PO BID #180 caps 03/09/22 metoprolol succinate 25 mg 50 mg (2 x 25 mg) PO DAILY #90 tabs 03/09/22 tablet,extended release 24 hr allopurinol 100 mg tablet 100 mg PO DAILY 90 days #90 tabs 03/27/22 aspirin 81 mg capsule 81 mg PO DAILY #30 caps 06/26/22 polyethylene glycol 3350 17 17 g PO BID PRN constipation #238 11/10/22 gram/dose oral powder (Miralax) grams amlodipine 5 mg tablet 5 mg PO DAILY #90 tabs 05/06/24 phenazopyridine 100 mg tablet 200 mg (2 x 100 mg) PO TID 2 days 05/10/24 (Pyridium) #6 tabs Allergies Allergy/AdvReac Type Severity Reaction Status Date / Time atorvastatin Allergy Unknown pt does Verified 06/02/24 17:22 not know azithromycin Allergy Unknown pt does Verified 06/02/24 17:22 not know ceftriaxone Allergy Unknown pt does Verified 06/02/24 17:22 not know cephalexin Allergy Unknown pt does Verified 06/02/24 17:22 not know citalopram Allergy Unknown pt does Verified 06/02/24 17:22 not know levofloxacin Allergy Unknown pt does Verified 06/02/24 17:22 not know metformin Allergy Unknown pt does Verified 06/02/24 17:22 not know nitrofurantoin Allergy Unknown pt does Verified 06/02/24 17:22 not know oxycodone Allergy Unknown pt does Verified 06/02/24 17:22 not know penicillin V Allergy Unknown pt does Verified 06/02/24 17:22 not know pioglitazone Allergy Unknown pt does Verified 06/02/24 17:22 not know repaglinide Allergy Unknown pt does Verified 06/02/24 17:22 not know rosuvastatin [Crestor] Allergy Unknown pt does Verified 06/02/24 17:22 not know sertraline Allergy Unknown pt does Verified 06/02/24 17:22 not know simvastatin Allergy Unknown pt does Verified 06/02/24 17:22 not know sulfacetamide Allergy Unknown pt does Verified 06/02/24 17:22 not know aspirin Allergy Unknown Verified 06/02/24 17:22 Cefuroxime Sodium Allergy Unknown pt does Uncoded 06/02/24 17:22 not know Review of Systems 2 Review of Systems: Yes all other systems are reviewed and are negative [facility] Past Medical History Medical History Bilateral kidney stones Annual physical exam HTN (hypertension) IDDM (insulin dependent diabetes mellitus) Diverticulitis Nephrolithiasis Cataract Hyperlipidemia Pacemaker Myocardial infarct Macular degeneration Nephrolithiasis Dementia Frequent UTI HTN (hypertension) Hypothyroid Diabetes Surgical History Status post lumbar spine surgery for decompression of spinal cord H/O left knee surgery Family History Family History Father Heart attack Mother Heart problem Heart attack Substance use disorder Social History Social History Household Members: Other Household Members Other:: lives in assisted living Housing: Assisted Living Facility Housing Other:: [facility] Do you presently have visiting nurse or other home services: No Alcohol intake: never Comment: pt will get oob without assistance. Patient Tobacco Use Status: Former Tobacco user Tobacco use type: Cigarette Cigarettes Per Day: 10.0 Years Smoked: 54 Smoked in Last 30 Days: Yes e-Cigarette/Vaping Use: Never Used Second Hand Smoke Exposure: No Use of substances other than those prescribed or required for medical reasons: No Advance Directives: Yes Advance Directives on File: Yes Advance Directives Date on File: 11/05/20 Do you have a plan to hurt others: No Plan service: No Current occupational status: retired Cognitive needs: No Hearing needs: No Vision needs: Yes Physical Exam 2 Vital Signs: Vital Signs: Last Vital Signs Temp 97.8 F 06/03/24 02:17 Pulse 65 06/03/24 02:17 Resp 12 06/03/24 02:17 BP 138/66 06/03/24 02:17 Pulse Ox 97 06/03/24 02:17 O2 Del Method Room Air 06/03/24 02:17 BMI result Body Mass Index 25.9 Const: Other: The patient was awake and alert. She said she was uncomfortable but she did not appear uncomfortable. Initially I did not appreciate the extent of the patient's dementia. HEENT: Other: Face is symmetrical. Mucous membranes moist. Eyes: Other: Pupils are round equal, conjunctivae clear, extraocular movements intact. Neck: Neck: Yes full ROM and Yes no JVD Resp: Effort & Inspection: normal respiratory effort Auscultation: clear to auscultation bilaterally Cardio: Rate: regular rate Rhythm: regular rhythm Heart sounds: S1 normal heart sound present and S2 normal heart sound present GI: Other: His seemed to be some mild left lower quadrant abdominal tenderness. No rebound or guarding. Back/Spine/Pelvis: Other: No definite CVA percussion tenderness on either side. Skin: Other: Skin was dry and unremarkable. Neuro: Other: The patient was awake and alert. Her speech was clear and she seemed to express herself fairly clearly. Initially it was not clear to me that she was significantly demented. Later it was apparent that she really was quite disoriented with regard to how long she has been in this area and what kind of care she has received in his area. She seems fixated on her life in [facility]. Cranial nerves seemed intact. She moves her extremities symmetrically and appropriately. She did not seem to have any focal neurological deficits. Extrem: Other: No peripheral edema. No calf swelling or tenderness. Medications Administered Discontinued Medications Generic Name Dose Route Start Last Admin Trade Name Freq PRN Reason Stop Dose Admin Sodium Chloride 1,000 mls @ 999 mls/hr 06/02/24 18:00 06/02/24 21:51 Ns IV 06/02/24 19:00 Infused .Q1H1M MAGNSU Infusion Lactated Ringer's 1,000 mls @ 999 mls/hr 06/02/24 22:30 06/03/24 01:42 Lr IV 06/02/24 23:30 Infused .Q1H1M MAGNUS Infusion Lactulose 200 gm 06/02/24 22:12 06/02/24 23:19 Lactulose 320 Gm/480 Ml Solution ND 06/02/24 22:13 200 gm ONCE ONE Administration Morphine Sulfate 4 mg 06/02/24 18:00 06/02/24 20:49 Morphine Sulfate 4 Mg/Ml Cartridge IVPUSH 06/02/24 18:01 4 mg ONCE ONE Administration Protocol Ondansetron HCl 4 mg 06/02/24 18:00 06/02/24 20:49 Ondansetron Hcl 4 Mg/2 Ml Vial IVPUSH 06/02/24 18:01 4 mg ONCE ONE Administration Polyethylene Glycol 17 gm 06/02/24 22:09 06/02/24 22:14 Polyethylene Glycol 3350 17 Gm Powd.Pack PO 06/02/24 22:10 17 gm ONCE ONE Administration Sodium Biphosphate/Sodium Phosphate 133 ml 06/02/24 18:39 06/02/24 20:31 Sodium Phosphate,[place]-Dibasic 133 Ml Enema ND 06/02/24 18:40 133 ml ONCE ONE Administration Medical Decision Making Medical Decision Making [facility] Narrative: Initially I was under the impression the patient had come to the emergency room because of abdominal pain and left flank pain which might represent a recurrent kidney stone. A CT scan of the abdomen and pelvis was done without contrast that showed the stent in the left ureter. Ultimately I reviewed the patient's old records and saw that the patient had in fact had the stent placed at this hospital. The patient did not seem to have any recollection of that. CT scan also showed significant constipation and possibly early stercoral colitis. Previous CT scans of showed significant constipation. Ultimately I spoke to a nurse that the patient's rest home who told me the patient has been sent here not for pain but for evaluation of behavioral changes including increased wandering and increased incontinence. Additionally the nurse felt the patient has been less compliant with medications and has been cheeking pills. I also spoke to the patient's daughter who is the healthcare proxy. Aside from what looked like a very large stool ball in the colon the patient's medical workup was essentially negative. The patient was given a Fleet enema which produced a small amount of stool. She was subsequently given a lactulose enema and she then had a very large bowel movement. At that point she stopped complaining of abdominal pain. I made a 2nd call to the patient's daughter after midnight. I left a message. I have some concern about whether the patient has dementia might be worsening and whether her current rest home is an appropriate facility for her. I will plan on keeping the patient in the emergency department for a case management evaluation in the morning. I believe the only acute medical process, a significant degree of constipation, has been corrected by a lactulose enema. Lab Data 06/02/24 18:30 06/02/24 19:26 Labs: Lab Results 06/02/24 06/02/24 06/02/24 Range/Units 18:30 19:26 20:29 WBC 9.7 (4.8-10.8) X10*3/uL RBC 4.10 L (4.20-5.50) X10*6/uL Hgb 11.8 L (12.0-16.0) g/dl Hct 37.2 (37.0-47.0) % MCV 90.7 (80.0-98.0) fL MCH 28.8 (27.0-33.0) pg MCHC 31.7 (31.0-35.0) g/dl RDW 16.0 (11.0-16.0) % Plt Count 247 D (160-400) X10*3/uL MPV 9.0 L (9.4-12.3) fL Immature Gran % (Auto) 0.3 (0.0-0.4) % Neut % (Auto) 74.9 H (45-73) % Lymph % (Auto) 17.3 L (20-40) % [place] % (Auto) 5.5 (2-11) % Eos % (Auto) 1.2 (0-4) % Baso % (Auto) 0.8 (0-2) % Lymph # (Auto) 1.7 (1.2-4.9) X10*3/uL [place] # (Auto) 0.5 (0.1-1.2) X10*3/uL Eos # (Auto) 0.1 (0.0-0.4) X10*3/uL Baso # (Auto) 0.1 (0.0-0.2) X10*3/uL Abs Immat Gran (auto) 0.03 (0.00-0.03) X10*3/uL Absolute Neuts (auto) 7.3 (2.0-8.3) x10*3/uL Absolute Nucleated RBC 0.000 (0.0-0.012) X10*3/uL Nucleated RBC % (auto) 0.0 (0.0-0.2) /100WBC Sodium 144 (135-145) mmol/L Potassium 4.4 (3.3-5.1) mmol/L Chloride 112 H (96-108) mmol/L Carbon Dioxide 25 (22-29) mmol/L Anion Gap 11 L (12-20) BUN 24 H (9-16) mg/dL Creatinine 0.90 (0.5-1.4) mg/dL Estim Creat Clear Calc 45.6 Estimated GFR > 60 Random Glucose 120 H (60-115) mg/dL Calcium 8.8 (8.4-10.2) mg/dL Total Bilirubin 0.2 (0.0-1.0) mg/dL Direct Bilirubin < 0.2 (0.0-0.5) mg/dL AST 25 (5-31) U/L ALT 20 (0-31) U/L Alkaline Phosphatase 96 (39-117) U/L C-Reactive Protein < 0.10 (< or = 0.50) mg/dL Total Protein 6.5 (6.5-8.0) g/dL Albumin 3.6 (3.5-5.0) g/dL Lipase 41 (8-78) U/L Urine Color DK YELLOW Urine Appearance Cloudy Urine pH 5.5 (5.0-9.0) Ur Specific [place] 1.025 (1.005-1.025) Urine Protein 100 (2+) H (Neg-Trace) mg/dL Urine Glucose (UA) Negative (Negative) mg/dL Urine Ketones Trace (Negative) mg/dL Urine Blood Large (3+) H (Negative) Urine Nitrite Negative (Negative) Ur Leukocyte Esterase Small (1+) H (Negative) Urine RBC >20 H (0-2) /HPF Urine WBC 11-20 H (0-5) /HPF Ur Squamous Epith Cells 0-2 (0-2) /HPF Urine Bacteria None Seen (None Seen) Hyaline Casts 0-2 (0-2) /LPF Discharge Plan Discharge Clinical Impression: Dementia, Constipation, Ureteral stent present Patient Disposition: Still a Patient Additional Instructions: The CT scan of the abdomen and pelvis showed a very large stool ball. This was addressed with a lactulose enema which I think was effective. I believe the patient has chronic problems with constipation. I think the patient should be on daily MiraLax. I believe the patient should be on a regularly scheduled bowel regimen as I believe she has chronic problems with the constipation. MiraLax daily would be a good start. The patient has a stent in her left ureter. There does not seem to be any associated urinary infection. However it is not clear how long this ureter is intended to stay. Please contact the urology office to discuss whether the ureter stent should be removed soon. Prescriptions: No Action (DME) blood-glucose meter [OneTouch Ultra2 Meter] Misc See Rx Instructions .ROUTE .MEDSUPPLY Qty: 100 3RF Rx Instructions: tid pyridoxine (vitamin B6) 100 mg tablet 100 mg PO DAILY 90 Days Qty: 90 3RF (DME) pen needle, diabetic [Comfort EZ Pen [place]] 33 gauge x 5/32 needle See Rx Instructions .Route Qty: 100 3RF Rx Instructions: As directed cyanocobalamin (vitamin B-12) 1,000 mcg tablet 1,000 mcg PO DAILY Qty: 30 8RF (DME) FreeStyle Lite Strips Strip See Rx Instructions .Route Qty: 100 5RF Rx Instructions: test blood sugar 3 times per day famotidine 40 mg tablet 40 mg PO DAILY Qty: 90 3RF cholecalciferol (vitamin D3) 125 mcg (5,000 unit) capsule 125 mcg PO DAILY Qty: 90 3RF donepezil 5 mg tablet 5 mg PO BEDTIME Qty: 90 3RF metoprolol succinate 25 mg tablet extended release 24 hr 50 mg PO DAILY Qty: 90 3RF gabapentin 100 mg capsule 100 mg PO BID Qty: 180 3RF clopidogrel 75 mg tablet 75 mg PO DAILY Qty: 90 3RF allopurinol 100 mg tablet 100 mg PO DAILY 90 Days Qty: 90 1RF polyethylene glycol 3350 [Miralax] 17 gram/dose powder 17 g PO BID PRN (Reason: constipation) Qty: 238 0RF Rx Instructions: If no BM x 3 days lisinopril 40 mg Tablet 40 mg PO DAILY aspirin 81 mg capsule 81 mg PO DAILY Qty: 30 0RF acetaminophen 325 mg Tablet 650 mg PO Q4H PRN (Reason: Pain) loperamide 2 mg Capsule 2 mg PO Q4H PRN (Reason: LOOSE STOOLS) Rx Instructions: administer after each loose stool until symptoms controlled; do not exceed 8 mg per 24 hrs sennosides-docusate sodium [Stool Softener-Laxative] 8.6-50 mg tablet 2 tab PO BID magnesium hydroxide [Milk of Magnesia] 400 mg/5 mL Suspension 30 ml PO DAILY PRN (Reason: Constipation) alum-mag hydroxide-simeth [Mintox] 200-200-20 mg/5 mL Suspension 30 ml PO Q4H PRN (Reason: GI UPSET) Rx Instructions: administer between meals and at bedtime glycerin (adult) Suppository 1 supp ND DAILY PRN (Reason: Constipation) PreserVision AREDS 2,148 mcg-113 mg-45 mg-17.4mg tablet 1 tab PO BID phenazopyridine [Pyridium] 100 mg tablet 200 mg PO TID 2 Days Qty: 6 0RF Tresiba FlexTouch U-100 100 unit/mL (3 mL) insulin pen 18 unit subcut BEDTIME Qty: 15 4RF rosuvastatin 20 mg tablet 20 mg PO BEDTIME (DME) lancets [OneTouch Delica Lancets] 33 gauge misc See Rx Instructions .ROUTE .MEDSUPPLY Qty: 100 5RF Rx Instructions: TID (DME) blood sugar diagnostic Strip See Rx Instructions .ROUTE .MEDSUPPLY Qty: 100 4RF Rx Instructions: tid amlodipine 5 mg tablet 5 mg PO DAILY Qty: 90 0RF Referrals: [facility] [place] Group] (retained left sided ureteral stent) Ashley Morales MD [Primary Care Provider] - (dementia, constipation) Print Language: [place]
--- NOTE | 2024-06-02 17:54 | ECG_ITS ---
Test Reason : ABDOMINAL Pain Blood Pressure : / mmHG Vent. Rate : 060 BPM Atrial Rate : 060 BPM P-R Int : 226 ms QRS Dur : 108 ms QT Int : 506 ms P-R-T Axes : 000 -31 099 degrees QTc Int : 506 ms Atrial-paced rhythm with prolonged AV conduction Left axis deviation Incomplete right bundle branch block Inferior infarct (cited on or before 04-NOV-2020) Abnormal ECG When compared with ECG of 19-APR-2024 23:16, Nonspecific T wave abnormality no longer evident in Inferior leads T wave inversion no longer evident in Anterior leads Referred By: Asif Schaefer Electronically Signed By:DALTON DELEON MD
[2024-06-02 18:19] VITALS: BP 125/63; PULSE 60; RESP 16; O2SAT 95
[2024-06-02 18:35] LABS: MANUAL DIFF FLAG NO
[2024-06-02 18:38] LABS: Basophils Absolute Auto 0.1 X10*3/uL (0.0-0.2); Basophils Percent Auto 0.8 % (0-2); Eosinophils Absolute Auto 0.1 X10*3/uL (0.0-0.4); Eosinophils Percent Auto 1.2 % (0-4); Hematocrit 37.2 % (37.0-47.0); Hemoglobin 11.8 g/dl (12.0-16.0); Imm Gran Abs Auto 0.03 X10*3/uL (0.00-0.03); Imm Gran Pct Auto 0.3 % (0.0-0.4); Lymphocytes Absolute Auto 1.7 X10*3/uL (1.2-4.9); Lymphocytes Percent Auto 17.3 % (20-40); Mean Corpuscular HGB Conc 31.7 g/dl (31.0-35.0); Mean Corpuscular Hemoglobin 28.8 pg (27.0-33.0); Mean Corpuscular Volume 90.7 fL (80.0-98.0); Monocytes Absolute Auto 0.5 X10*3/uL (0.1-1.2); Monocytes Percent Auto 5.5 % (2-11); Neutrophils Absolute Auto 7.3 x10*3/uL (2.0-8.3); Neutrophils Percent Auto 74.9 % (45-73); Platelet Count 247 X10*3/uL (160-400); White Blood Count 9.7 X10*3/uL (4.8-10.8)
[2024-06-02] MEDS: 0.9 % Sodium Chloride 1,000 ML 999 ML IV (18:39)
--- NOTE | 2024-06-02 19:15 | PC.NURSE ---
assumed care of patient at this time, patient reporting alot of abdmen discomfort, CT showed large stool burden.
--- NOTE | 2024-06-02 19:17 | PC.NURSE ---
CT result significant for large stool burden, plan to hold morphine and zofran at this time, given fleets enema and manage pain after BM or possible dis-impaction.
[2024-06-02 19:47] VITALS: BP 115/77; PULSE 61; RESP 16; TEMP 37; O2SAT 96
[2024-06-02 20:00] LABS: Alanine Aminotransferase 20 U/L (0-31); Albumin Level 3.6 g/dL (3.5-5.0); Alkaline Phosphatase 96 U/L (39-117); Anion Gap 11 (12-20); Aspartate Amino Transferase 25 U/L (5-31); Bilirubin Direct < 0.2 mg/dL (0.0-0.5); Bilirubin Total 0.2 mg/dL (0.0-1.0); Blood Urea Nitrogen 24 mg/dL (9-16); C Reactive Protein < 0.10 mg/dL (< or = 0.50); Calcium 8.8 mg/dL (8.4-10.2); Carbon Dioxide 25 mmol/L (22-29); Chloride 112 mmol/L (96-108); Creatinine Clr Calc Pharmacy 45.6; Estimated Glomerular Filt Rate > 60; Glucose Random 120 mg/dL (60-115); Lipase 41 U/L (8-78); Potassium 4.4 mmol/L (3.3-5.1); Sodium 144 mmol/L (135-145); Total Protein 6.5 g/dL (6.5-8.0)
[2024-06-02] MEDS: Sodium Phosphate,Mono-Dibasic 133 ML ENEMA PR (20:31)
[2024-06-02 20:34] LABS: Appearance Urine Cloudy; Color Urine DK YELLOW; Glucose Urine UA Negative (Negative); Leukocyte Esterase Urine Small (1+) (Negative); Nitrite Urine Negative (Negative); PH 5.5 (5.0-9.0); Specific Gravity - Urine 1.025 (1.005-1.025); UMIC TRIGGER UACC YES; Urine Blood Large (3+) (Negative); Urine Ketones Trace mg/dL (Negative); Urine Protein 100 (2+) mg/dL (Neg-Trace)
[2024-06-02 20:37] LABS: Bacteria Urine None Seen (None Seen); Hyaline Casts Urine 0-2 /LPF (0-2); RBC Urine >20 /HPF (0-2); Squamous Epithelial Cell Urine 0-2 /HPF (0-2); UACC Culture Trigger YES
[2024-06-02] MEDS: ondansetron HCL 4 MG/2 ML VIAL IVPUSH (20:49)
[2024-06-02] MEDS: Morphine Sulfate 4 MG/ML CARTRIDGE IVPUSH (20:49)
[2024-06-02 22:08] VITALS: BP 161/68; PULSE 60; RESP 18; TEMP 37; O2SAT 96
[2024-06-02] MEDS: polyethylene glycoL 3350 17 GM POWD.PACK PO (22:14)
[2024-06-02] MEDS: Lactated Ringers 1,000 ML 999 ML IV (22:49)
[2024-06-02] MEDS: Lactulose 320 GM/480 ML SOLUTION 200 GM PR (23:19)
[2024-06-03] VITALS (10 sets, daily range): BP systolic 122–186; BP diastolic 49–93; PULSE 60–65; RESP 12–19; TEMP 36.5–37.2; O2SAT 94–97
--- NOTE | 2024-06-03 00:13 | PC.NURSE ---
patient had very large bowel movement after lactulose enema. patient reporting feeling relief of abdomen pain
[2024-06-03 07:36] LABS: Glucose, Whole Blood 102 mg/dL (60-115)
--- NOTE | 2024-06-03 08:08 | PC.NURSE ---
Care of Pt assumed at change of shift. Pt calls this RN to bedside to inquire about her situation. Pt is alert and oriented to person only. She is unable to state where she is, date or situation. This RN orients Pt to the date and why she was brought to the ED. Pt expresses feeling very confused and having gas but otherwise offers no complaints. Awaiting breakfast try to be delivered and Pt is looking forward to eating. Disposition pending.
--- NOTE | 2024-06-03 11:24 | PHA.MEDREC ---
Pharmacy Consult ? Medication Reconciliation Pharmacy has completed the medication reconciliation. Utilized med list from [facility] to verify home meds.
--- NOTE | 2024-06-03 12:03 | MHC.CM.PN ---
This CM met with pt to discuss discharge plan (PT is not recommending therapy at this time), the pt advised this CM to speak with her daughter/HCP Marian. This CM called and spoke with pts daughter/HCP Marian, she stated that [facility] will take her back when she is ready for discharge, and the she will transport her there. This CM called and spoke with [facility] and they are in agreement with accepting her back today, stating they are working on a oil heaterman solution for her to go to another more secured place and stated, but that's our problem, not yours. Pt is medically cleared for discharge back to [facility] today.
--- NOTE | 2024-06-03 12:43 | PC.NURSE ---
pt is up for discharge as she has been medically cleared. daughter is bedside attempting to transport daughter back to [facility]. pt now c/o RLQ pain and requesting to stay another day. provider notified/aware of pt's request.
[2024-06-03] MEDS: HYDROmorphone HCl 0.5 MG/0.5 ML SYRINGE IVPUSH (13:07)
[2024-06-03 13:10] LABS: MANUAL DIFF FLAG NO
[2024-06-03 13:16] LABS: Basophils Absolute Auto 0.1 X10*3/uL (0.0-0.2); Basophils Percent Auto 0.6 % (0-2); Eosinophils Absolute Auto 0.1 X10*3/uL (0.0-0.4); Hematocrit 37.1 % (37.0-47.0); Hemoglobin 11.3 g/dl (12.0-16.0); Imm Gran Abs Auto 0.03 X10*3/uL (0.00-0.03); Imm Gran Pct Auto 0.3 % (0.0-0.4); Lymphocytes Absolute Auto 1.2 X10*3/uL (1.2-4.9); Lymphocytes Percent Auto 13.6 % (20-40); Mean Corpuscular HGB Conc 30.5 g/dl (31.0-35.0); Mean Corpuscular Hemoglobin 28.3 pg (27.0-33.0); Mean Platelet Volume 9.6 fL (9.4-12.3); Monocytes Absolute Auto 0.5 X10*3/uL (0.1-1.2); Neutrophils Absolute Auto 6.9 x10*3/uL (2.0-8.3); Neutrophils Percent Auto 78.5 % (45-73); Platelet Count 228 X10*3/uL (160-400); Red Blood Count 3.99 X10*6/uL (4.20-5.50); Red Cell Distribution Width 15.9 % (11.0-16.0); White Blood Count 8.8 X10*3/uL (4.8-10.8)
--- NOTE | 2024-06-03 13:19 | PC.NURSE ---
provider bedside assessing pt. pt c/o 10/10 RLQ pain. denies any episodes of nausea. no vomiting/diarrhea noted. tender w/ palpation. provider recommending for pt to stay to be re-evaluated. pt/family aware and agreeable to plan of care. new 20gIV placed in the left forearm - labs obtained/sent to lab. medication administered per provider order. effectiveness pending. pt waiting to go to CT at this time. on RA w/o difficulty - no sob/wob noted. respirations even/unlabored. bed alarm turned on for safety precautions. call garay placed within reach.
[2024-06-03 13:35] LABS: Alanine Aminotransferase 14 U/L (0-31); Albumin Level 3.2 g/dL (3.5-5.0); Alkaline Phosphatase 87 U/L (39-117); Anion Gap 10 (12-20); Aspartate Amino Transferase 28 U/L (5-31); Bilirubin Total 0.2 mg/dL (0.0-1.0); Blood Urea Nitrogen 19 mg/dL (9-16); Calcium 8.1 mg/dL (8.4-10.2); Carbon Dioxide 26 mmol/L (22-29); Chloride 113 mmol/L (96-108); Estimated Glomerular Filt Rate > 60; Glucose Random 204 mg/dL (60-115); Potassium 4.1 mmol/L (3.3-5.1); Sodium 145 mmol/L (135-145)
[2024-06-03] MEDS: iohexoL 350 MG/ML 100 ML INFUS..BTL IV (14:09)
--- NOTE | 2024-06-03 15:46 | PC.NURSE ---
general surgery consult being completed at this time.
--- NOTE | 2024-06-03 16:23 | P.CONGS_ITS ---
History of Present Illness Consult details Consult date: 06/03/24 Narrative: 78-year-old female with beginning dementia, history of ureteral stones, coronary artery disease, here in the ER because of abdominal pain. She was actually sent to the ED yesterday by the facility where she stays in because of what was described as worsening cognitive functions with her dementia. In the ED yesterday, she had complained of left-sided abdominal pain. Her CAT scan showed a stent in the left ureter along with very heavy stool volume in the colon consistent with constipation. She was given an enema as well as lactulose with passage of large amounts of stool. She says that her pain improved thereafter so she was discharged back to the facility However, while waiting discharged back to the facility today, she complained of severe abdominal pain again. She had a repeat CT scan. This actually showed significantly less stool volume in the colon large amounts of gas. Currently she says she states she still has pain but this is ?better .. She appears comfortable though. Review of Systems 2 Constitutional: Constitutional: Denies chills and Denies fever(s) Cardiovascular: Cardiovascular: Denies chest pain Respiratory: Respiratory: Denies cough Gastrointestinal: Gastrointestinal: Denies vomiting Genitourinary: Comments: History of ureteral stones PMFSH Past Medical History Medical History Bilateral kidney stones Annual physical exam HTN (hypertension) IDDM (insulin dependent diabetes mellitus) Diverticulitis Nephrolithiasis Cataract Hyperlipidemia Pacemaker Myocardial infarct Macular degeneration Nephrolithiasis Dementia Frequent UTI HTN (hypertension) Hypothyroid Diabetes Family History Family History Father Heart attack Mother Heart problem Heart attack Substance use disorder Surgical History Surgical History Status post lumbar spine surgery for decompression of spinal cord H/O left knee surgery Social History Social History Household Members: Other Household Members Other:: lives in assisted living Housing: Assisted Living Facility Housing Other:: [facility] Do you presently have visiting nurse or other home services: No Alcohol intake: never Comment: pt will get oob without assistance. Patient Tobacco Use Status: Former Tobacco user Tobacco use type: Cigarette Cigarettes Per Day: 10.0 Years Smoked: 54 e-Cigarette/Vaping Use: Never Used Second Hand Smoke Exposure: No Advance Directives Date on File: 11/05/20 service: No Current occupational status: retired Cognitive needs: No Hearing needs: No Vision needs: Yes Meds Allergies Allergy/AdvReac Type Severity Reaction Status Date / Time atorvastatin Allergy Unknown pt does Verified 06/02/24 17:22 not know azithromycin Allergy Unknown pt does Verified 06/02/24 17:22 not know ceftriaxone Allergy Unknown pt does Verified 06/02/24 17:22 not know cephalexin Allergy Unknown pt does Verified 06/02/24 17:22 not know citalopram Allergy Unknown pt does Verified 06/02/24 17:22 not know levofloxacin Allergy Unknown pt does Verified 06/02/24 17:22 not know metformin Allergy Unknown pt does Verified 06/02/24 17:22 not know nitrofurantoin Allergy Unknown pt does Verified 06/02/24 17:22 not know oxycodone Allergy Unknown pt does Verified 06/02/24 17:22 not know penicillin V Allergy Unknown pt does Verified 06/02/24 17:22 not know pioglitazone Allergy Unknown pt does Verified 06/02/24 17:22 not know repaglinide Allergy Unknown pt does Verified 06/02/24 17:22 not know rosuvastatin [Crestor] Allergy Unknown pt does Verified 06/02/24 17:22 not know sertraline Allergy Unknown pt does Verified 06/02/24 17:22 not know simvastatin Allergy Unknown pt does Verified 06/02/24 17:22 not know sulfacetamide Allergy Unknown pt does Verified 06/02/24 17:22 not know aspirin Allergy Unknown Verified 06/02/24 17:22 Cefuroxime Sodium Allergy Unknown pt does Uncoded 06/02/24 17:22 not know Home Medications ?Medication ?Instructions ?Recorded ?Confirmed ?Last Taken ?Type lisinopril 40 mg tablet 40 mg PO DAILY 11/04/20 06/03/24 11/03/20 History rosuvastatin 20 mg tablet 20 mg PO BEDTIME 12/14/21 06/03/24 Unknown History acetaminophen 325 mg tablet 650 mg PO Q4H PRN Pain 04/16/24 06/03/24 Unknown History aluminum-mag hydroxide-simethicone 30 ml PO Q4H PRN GI UPSET 04/16/24 06/03/24 Unknown History 200 mg-200 mg-20 mg/5 mL oral susp (Mintox) glycerin (adult) 1 supp [place] DAILY PRN Constipation 04/16/24 06/03/24 Unknown History loperamide 2 mg capsule 2 mg PO Q4H PRN LOOSE STOOLS 04/16/24 06/03/24 Unknown History magnesium hydroxide 400 mg/5 mL 30 ml PO DAILY PRN Constipation 04/16/24 06/03/24 Unknown History oral suspension (Milk of Magnesia) sennosides 8.6 mg-docusate sodium 2 tab PO BID 04/16/24 06/03/24 Unknown History 50 mg tablet (Stool Softener-Laxative) vitamins A,C,K-vyso-mrbfla 2,148 1 tab PO BID 04/16/24 06/03/24 Unknown History mcg-113 mg-45 mg-17.4 mg tablet (PreserVision AREDS) levothyroxine 100 mcg tablet 100 mcg PO DAILY 06/03/24 06/03/24 Unknown History Physical Exam 2 Vital Signs: Vital Signs: Last Vital Signs Temp 99.0 F 06/03/24 16:18 Pulse 60 06/03/24 16:18 Resp 19 06/03/24 16:18 BP 186/78 H 06/03/24 16:18 Pulse Ox 95 06/03/24 16:18 O2 Del Method Room Air 06/03/24 16:18 BMI result Body Mass Index 25.9 Const: Other: Answers some questions although appears to have some mild cognitive deficits General: comfortable and no acute distress Resp: Effort & Inspection: normal respiratory effort Cardio: Rate: regular rate GI: Palpation (GI): Soft to palpation, not firm, Tenderness to palpation present (GI) (Minimal diffuse tenderness) and no guarding Results Labs 06/03/24 13:05 06/03/24 13:05 Labs: Abnormal lab results 06/02/24 06/02/24 06/02/24 Range/Units 18:30 19:26 20:29 RBC 4.10 L (4.20-5.50) X10*6/uL Hgb 11.8 L (12.0-16.0) g/dl MCHC (31.0-35.0) g/dl MPV 9.0 L (9.4-12.3) fL Neut % (Auto) 74.9 H (45-73) % Lymph % (Auto) 17.3 L (20-40) % Chloride 112 H (96-108) mmol/L Anion Gap 11 L (12-20) BUN 24 H (9-16) mg/dL Random Glucose 120 H (60-115) mg/dL Calcium (8.4-10.2) mg/dL Total Protein (6.5-8.0) g/dL Albumin (3.5-5.0) g/dL Urine Protein 100 (2+) H (Neg-Trace) mg/dL Urine Blood Large (3+) H (Negative) Ur Leukocyte Esterase Small (1+) H (Negative) Urine RBC >20 H (0-2) /HPF Urine WBC 11-20 H (0-5) /HPF 06/03/24 Range/Units 13:05 RBC 3.99 L (4.20-5.50) X10*6/uL Hgb 11.3 L (12.0-16.0) g/dl MCHC 30.5 L (31.0-35.0) g/dl MPV (9.4-12.3) fL Neut % (Auto) 78.5 H (45-73) % Lymph % (Auto) 13.6 L (20-40) % Chloride 113 H (96-108) mmol/L Anion Gap 10 L (12-20) BUN 19 H (9-16) mg/dL Random Glucose 204 H (60-115) mg/dL Calcium 8.1 L D (8.4-10.2) mg/dL Total Protein 6.0 L (6.5-8.0) g/dL Albumin 3.2 L (3.5-5.0) g/dL Urine Protein (Neg-Trace) mg/dL Urine Blood (Negative) Ur Leukocyte Esterase (Negative) Urine RBC (0-2) /HPF Urine WBC (0-5) /HPF Short CBC 06/02/24 06/03/24 Range/Units 18:30 13:05 WBC 9.7 8.8 (4.8-10.8) X10*3/uL Hgb 11.8 L 11.3 L (12.0-16.0) g/dl Hct 37.2 37.1 (37.0-47.0) % Plt Count 247 D 228 (160-400) X10*3/uL BMP 06/02/24 06/03/24 19:26 13:05 Sodium 144 145 Potassium 4.4 4.1 Chloride 112 H 113 H Carbon Dioxide 25 26 BUN 24 H 19 H Creatinine 0.90 0.76 Calcium 8.8 8.1 L D Liver Function 06/02/24 06/03/24 Range/Units 19:26 13:05 Total Bilirubin 0.2 0.2 (0.0-1.0) mg/dL Direct Bilirubin < 0.2 (0.0-0.5) mg/dL AST 25 28 (5-31) U/L ALT 20 14 (0-31) U/L Alkaline Phosphatase 96 87 (39-117) U/L Albumin 3.6 3.2 L (3.5-5.0) g/dL Urine 06/02/24 Range/Units 20:29 Urine Color DK YELLOW Urine Appearance Cloudy Urine pH 5.5 (5.0-9.0) Ur Specific [place] 1.025 (1.005-1.025) Urine Protein 100 (2+) H (Neg-Trace) mg/dL Urine Glucose (UA) Negative (Negative) mg/dL All other labs normal. Imaging Abdomen CT scan report/results: report reviewed and image reviewed CT scan - pelvis: report reviewed and image reviewed Assessment and Plan (1) Abdominal pain: Status: Inactive She was brought to the ED yesterday from the facility because of what was described as worsening cognitive abilities. However she had complained of abdominal pain as well and her CT scan yesterday was consistent with severe constipation. She had large bowel movements after lactulose. Her pain had improved significantly . She was about to be discharged today back to the facility but she complained of pain again on the right side. Her CAT scan was repeated and review of this shows less stool volume although with gaseous distention of the colon. She does not have leukocytosis. Her abdominal exam is currently benign. Overall clinical picture does not suggest a surgical abdomen. She also is not toxic looking. However, in view of her pain earlier, I have recommended for her to be observed overnight as she has dementia and her history is unreliable. She does state that she wants to be discharged back to the facility. Review of her urinalysis also suggest a UTI with note of WBCs and leukocyte esterase. I have discussed the above with the ED provider. Procedures Date of Service Date of Service: 06/06/24
--- NOTE | 2024-06-03 16:24 | PC.NURSE ---
pt noted to be hypertensive when obtaining discharge vital signs - provider notified/aware that pt has not received medications throughout the day. will administer medication when able.
[2024-06-03] MEDS: lisinopriL 40 MG TABLET PO (16:37)
[2024-06-03] MEDS: amLODIPine Besylate 5 MG TABLET PO (16:37)
[2024-06-03] MEDS: Metoprolol Succinate ER 50 MG TAB.ER.24H PO (16:38)
--- NOTE | 2024-06-03 16:52 | PC.NURSE ---
BP medication administered prior to d/c. pt leaving facility w/ daughter to be transported back to [facility] at this time.
--- NOTE | 2024-06-03 16:56 | PC.NURSE ---
report given to CARRIE Red at [facility] at this time.
== END 2024-06-03 16:57 | disposition other institution (70) ==
PROVIDERS: Physician Assistant Medical; Emergency Provider Emergency Medicine; PCP Internal Medicine
DX: K59.00 Constipation, unspecified (principal); F03.90 Unspecified dementia, unspecified severity, without behavioral disturbance, psychotic disturbance, mood disturbance, and anxiety; R10.32 Left lower quadrant pain; I10 Essential (primary) hypertension; E11.9 Type 2 diabetes mellitus without complications; E03.9 Hypothyroidism, unspecified; Z87.442 Personal history of urinary calculi; Z79.899 Other long term (current) drug therapy
CPT/HCPCS: 36415; 70450; 74176; 74177; 80048; 80053; 80076; 81001; 82947; 83690; 85025; 86140; 87086; 93005; 96361; 96374; 96375; 97161; 99285; J1171; J2270; J2405; J7120; Q9967

== ENCOUNTER → 2024-06-02 17:35 | Outpatient (BNV) | payer MEDICARE, MEDICAID, SELFPAY | PROVIDERS: Emergency Provider Emergency Medicine; PCP Internal Medicine; Visit Provider Surgery | DX: R10.9 Unspecified abdominal pain (principal) | CPT/HCPCS: 99283 ==

== ENCOUNTER → 2024-06-02 17:54 | Outpatient (BNV) | payer MEDICARE, MEDICAID, SELFPAY | PROVIDERS: Emergency Provider Emergency Medicine; PCP Internal Medicine; Visit Provider Internal Medicine Cardiovascular Disease | DX: R94.31 Abnormal electrocardiogram [ECG] [EKG] (principal) | CPT/HCPCS: 93010 ==

== ENCOUNTER → 2024-06-02 17:56 | Outpatient (BNV) | payer MEDICARE, MEDICAID, SELFPAY | PROVIDERS: Emergency Provider Emergency Medicine; PCP Internal Medicine; Visit Provider Radiology Diagnostic Radiology | DX: R41.82 Altered mental status, unspecified (principal) | CPT/HCPCS: 70450; 74176 ==

== ENCOUNTER → 2024-06-03 12:53 | Outpatient (BNV) | payer MEDICARE, MEDICAID, SELFPAY | PROVIDERS: Emergency Provider Emergency Medicine; PCP Internal Medicine; Visit Provider Radiology Diagnostic Radiology | DX: R10.30 Lower abdominal pain, unspecified (principal) | CPT/HCPCS: 74177 ==

== ENCOUNTER 2024-06-12 14:01 | Outpatient (REF) | payer MEDICARE, MEDICAID, SELFPAY ==
--- OUTSIDE RECORDS SUMMARY | 2024-06-12 15:11 | XMS_ITS | Clinical Summary ---
Author Organization Unknown Care Team Providers [facility] [employer] Name Role Phone NO LORA, HUBERT Unavailable Unavailable KHRIS PT, KENDALL Unavailable Unavailable Payers Payer Name Policy Type Policy Number Effective Date Expira tion Date MEDICARE - [place] - PD [id number] [facility] [facility] [id number] Problems Condition Name Condition Details Condition Category Status Onset Date Resolution Date Last Treatment Date Treating Clinician Comments ESSENTIAL (PRIMARY) HYPERTENSION Active 12-08 00:00: 00 SICK SINUS SYNDROME Active 06-04 00:00: 00 ATHSCL HEART DISEASE OF [place] CORONARY ARTERY W/O ANG PCTRS Active 06-04 [...] UNSPECIFIED, UNCOMPLICATE D Active 06-04 00:00: 00 JAIL (CURRENT) USE OF INSULIN Active 06-04 00:00: 00 PRESENCE OF CARDIAC PACEMAKER Active 06-04 00:00: 00 JAIL (CURRENT) USE OF ANTITHROMBOT ICS/ANTIPLAT ELETS Active [...] 11-21 00:00: 00 11-09 23:59 :00 No [id number] 1 tablet EVERY DAY 1 tablet EVERY DAY (route: oral) Med Classific ation: Gout and Hyperuric emia Therapy amlodipine 2.5 mg tablet 11-21 00:00: 00 11-09 23:59 :00 No [id number] 1 tablet EVERY DAY 1 tablet EVERY DAY (route: oral) Med Classific ation: Cardiovas cular Therapy Agents cyanocobala min (vit B-12) 1,000 mcg tablet 12-08 00:00: 00 11-09 23:59 :00 No [id number] 1 tablet DAILY 1 tablet DAILY (route: oral) Med Classific ation: Electroly te Balance-N utritiona l Products donepezil 5 mg tablet 12-08 00:00: 00 11-09 23:59 :00 No [id number] 1 tablet DAILY 1 tablet DAILY (route: oral) Med Classific ation: Cognitive Disorder Therapy famotidine 40 mg tablet 12-08 00:00: 00 11-09 23:59 :00 No [id number] 1 tablet DAILY 1 tablet DAILY (route: oral) Med Classific ation: Gastroint estinal Therapy Agents levothyroxi ne 100 mcg tablet 12-08 00:00: 00 11-09 23:59 :00 No [id number] 1 tablet DAILY 1 tablet DAILY (route: oral) Med Classific ation: Endocrine lisinopril 40 mg tablet 12-08 00:00: 00 11-09 23:59 :00 No [id number] 1 tablet DAILY 1 tablet DAILY (route: oral) Med Classific ation: Cardiovas cular Therapy Agents Plavix 75 mg tablet 12-08 00:00: 00 11-09 23:59 :00 No [id number] 1 tablet DAILY 1 tablet DAILY (route: oral) Med Classific ation: Hematolog ical Agents pregabalin 100 mg capsule 12-08 00:00: 00 11-09 23:59 :00 No [id number] 1 capsule 2 TIMES DAILY 1 capsule 2 TIMES DAILY (route: oral) Med Classific ation: Central Nervous System Agents rosuvastati n 20 mg tablet 12-08 00:00: 00 11-09 23:59 :00 No [id number] 1 mg DAILY 1 mg DAILY (route: oral) Med Classific ation: Cardiovas cular Therapy Agents Tresiba FlexTouch U-200 insulin 200 unit/mL (3 mL) subcutaneou s pen 12-08 00:00: 00 11-09 23:59 :00 No [id number] 18 unit EVERY PM 18 unit EVERY PM (route: subcutaneo us) Med Classific ation: Endocrine metoprolol succinate ER 25 mg tablet,exte nded release 24 hr 12-08 00:00: 00 11-09 23:59 :00 No [id number] 2 tablet DAILY 2 tablet DAILY (route: [...] HOSPITALIZATION/INPATIENT ADMISSION RELATED TO: PATIENT IS A [place] 76 YO CONFUSED FEMALE S/P HOSPITALIZATION 12/06-12/08/21 FOR DIZZINESS AND CHEST PAIN. HOSPITAL TESTS REVEALED ABNORMAL STRESS TEST. PATIENT REPORTS 3 BACK SURGERIES. PATIENT REPORTS SMOKES 3-4 CIGARETTES A DAY, STAFF REPORTS 8-10 CIGARETTES A DAY. DAY PRIOR TO HOSPITALIZATION, PATIENT WAS ATTENDING [facility], CHAIN SMOKED 1 PACK OF CIGARETTES IN 3-4 HOURS. PAST MEDICAL HISTORY: PAST MD HX: DEMENTIA, DM ON INSULIN, [place], PACEMAKER 3 YEARS AGO, HYPERTENSION, HLD PATIENT'S [...] PATIENT LIVING SITUATION/CAREGIVER STATUS: PATIENT LIVES AT [facility], SHARES LARGE ROOM WITH TWO OTHER WOMEN. [...] HOSPITALIZATION/INPATIENT ADMISSION RELATED TO: PATIENT IS A [place] 76 YO CONFUSED FEMALE S/P HOSPITALIZATION 12/06-12/08/21 FOR DIZZINESS AND CHEST PAIN. HOSPITAL TESTS REVEALED ABNORMAL STRESS TEST. PATIENT REPORTS 3 BACK SURGERIES. PATIENT REPORTS SMOKES 3-4 CIGARETTES A DAY, STAFF REPORTS 8-10 CIGARETTES A DAY. DAY PRIOR TO HOSPITALIZATION, PATIENT WAS ATTENDING [facility], CHAIN SMOKED 1 PACK OF CIGARETTES IN 3-4 HOURS. PAST MEDICAL HISTORY: PAST MD HX: DEMENTIA, DM ON INSULIN, [place], PACEMAKER 3 YEARS AGO, HYPERTENSION, HLD PATIENT'S [...] PATIENT LIVING SITUATION/CAREGIVER STATUS: PATIENT LIVES AT [facility], SHARES LARGE ROOM WITH TWO OTHER WOMEN. [...] FOR FALL AND INJURY INCLUDING PARTICIPATION IN [facility] SPECIALTY PROGRAM [code = PHYSICAL [...] End Date/Time Encounter Type Admission Type Attending [facility] Care Department Encounter ID Discharge Date Discharge Status Discharge Condition Discharge Reason Percent Goals Met 2021-12-08 00:00:00 2021-12-27 00:00:00 Outpatient NEW ADMISSION [facility] [id number] 00:00:00 DISCHARGED /TRANSFERR ED TO ANOTHER TYPE OF HEALTH CARE INSTITUTIO N NOT DEFINED ELSEWHERE IN THIS CODE LIST INDEPENDEN T IN THE HOME GOALS MET ( ONLY) 100.00
--- OUTSIDE RECORDS SUMMARY | 2024-06-12 15:11 | XMS_ITS | Clinical Summary ---
Author Organization Unknown Care Team Providers Care Community Health Advisor Name Role Phone NO LORA, HUBERT Unavailable Unavailable KHRIS PT, KENDALL Unavailable Unavailable Payers Payer Name Policy Type Policy Number Effective Date Expira tion Date MEDICARE - [place] [id number] MEDICAID [facility] [id number] Problems Condition Name Condition Details Condition Category Status Onset Date Resolution Date Last Treatment Date Treating Clinician Comments ESSENTIAL (PRIMARY) HYPERTENSION Active 12-08 00:00: 00 SICK SINUS SYNDROME Active 06-04 00:00: 00 ATHSCL HEART DISEASE OF [place] CORONARY ARTERY W/O ANG PCTRS Active 06-04 [...] UNSPECIFIED, UNCOMPLICATE D Active 06-04 00:00: 00 LONGTERM (CURRENT) USE OF INSULIN Active 06-04 00:00: 00 PRESENCE OF CARDIAC PACEMAKER Active 06-04 00:00: 00 LONGTERM (CURRENT) USE OF ANTITHROMBOT ICS/ANTIPLAT ELETS Active [...] 11-21 00:00: 00 11-09 23:59 :00 No [id number] 1 tablet EVERY DAY 1 tablet EVERY DAY (route: oral) Med Classific ation: Gout and Hyperuric emia Therapy amlodipine 2.5 mg tablet 11-21 00:00: 00 11-09 23:59 :00 No [id number] 1 tablet EVERY DAY 1 tablet EVERY DAY (route: oral) Med Classific ation: Cardiovas cular Therapy Agents cyanocobala min (vit B-12) 1,000 mcg tablet 12-08 00:00: 00 11-09 23:59 :00 No [id number] 1 tablet DAILY 1 tablet DAILY (route: oral) Med Classific ation: Electroly te Balance-N utritiona l Products donepezil 5 mg tablet 12-08 00:00: 00 11-09 23:59 :00 No [id number] 1 tablet DAILY 1 tablet DAILY (route: oral) Med Classific ation: Cognitive Disorder Therapy famotidine 40 mg tablet 12-08 00:00: 00 11-09 23:59 :00 No [id number] 1 tablet DAILY 1 tablet DAILY (route: oral) Med Classific ation: Gastroint estinal Therapy Agents levothyroxi ne 100 mcg tablet 12-08 00:00: 00 11-09 23:59 :00 No [id number] 1 tablet DAILY 1 tablet DAILY (route: oral) Med Classific ation: Endocrine lisinopril 40 mg tablet 12-08 00:00: 00 11-09 23:59 :00 No [id number] 1 tablet DAILY 1 tablet DAILY (route: oral) Med Classific ation: Cardiovas cular Therapy Agents Plavix 75 mg tablet 12-08 00:00: 00 11-09 23:59 :00 No [id number] 1 tablet DAILY 1 tablet DAILY (route: oral) Med Classific ation: Hematolog ical Agents pregabalin 100 mg capsule 12-08 00:00: 00 11-09 23:59 :00 No [id number] 1 capsule 2 TIMES DAILY 1 capsule 2 TIMES DAILY (route: oral) Med Classific ation: Central Nervous System Agents rosuvastati n 20 mg tablet 12-08 00:00: 00 11-09 23:59 :00 No [id number] 1 mg DAILY 1 mg DAILY (route: oral) Med Classific ation: Cardiovas cular Therapy Agents Tresiba FlexTouch U-200 insulin 200 unit/mL (3 mL) subcutaneou s pen 12-08 00:00: 00 11-09 23:59 :00 No [id number] 18 unit EVERY PM 18 unit EVERY PM (route: subcutaneo us) Med Classific ation: Endocrine metoprolol succinate ER 25 mg tablet,exte nded release 24 hr 12-08 00:00: 00 11-09 23:59 :00 No [id number] 2 tablet DAILY 2 tablet DAILY (route: [...] HOSPITALIZATION/INPATIENT ADMISSION RELATED TO: PATIENT IS A [place] 76 YO CONFUSED FEMALE S/P HOSPITALIZATION 12/06-12/08/21 FOR DIZZINESS AND CHEST PAIN. HOSPITAL TESTS REVEALED ABNORMAL STRESS TEST. PATIENT REPORTS 3 BACK SURGERIES. PATIENT REPORTS SMOKES 3-4 CIGARETTES A DAY, STAFF REPORTS 8-10 CIGARETTES A DAY. DAY PRIOR TO HOSPITALIZATION, PATIENT WAS ATTENDING [facility], CHAIN SMOKED 1 PACK OF CIGARETTES IN 3-4 HOURS. PAST MEDICAL HISTORY: PAST MD HX: DEMENTIA, DM ON INSULIN, DC, PACEMAKER 3 YEARS AGO, HYPERTENSION, HLD PATIENT'S [...] PATIENT LIVING SITUATION/CAREGIVER STATUS: PATIENT LIVES AT [facility], SHARES LARGE ROOM WITH TWO OTHER WOMEN. [...] HOSPITALIZATION/INPATIENT ADMISSION RELATED TO: PATIENT IS A [place] 76 YO CONFUSED FEMALE S/P HOSPITALIZATION 12/06-12/08/21 FOR DIZZINESS AND CHEST PAIN. HOSPITAL TESTS REVEALED ABNORMAL STRESS TEST. PATIENT REPORTS 3 BACK SURGERIES. PATIENT REPORTS SMOKES 3-4 CIGARETTES A DAY, STAFF REPORTS 8-10 CIGARETTES A DAY. DAY PRIOR TO HOSPITALIZATION, PATIENT WAS ATTENDING [facility], CHAIN SMOKED 1 PACK OF CIGARETTES IN 3-4 HOURS. PAST MEDICAL HISTORY: PAST MD HX: DEMENTIA, DM ON INSULIN, DC, PACEMAKER 3 YEARS AGO, HYPERTENSION, HLD PATIENT'S [...] PATIENT LIVING SITUATION/CAREGIVER STATUS: PATIENT LIVES AT [facility], SHARES LARGE ROOM WITH TWO OTHER WOMEN. [...] FOR FALL AND INJURY INCLUDING PARTICIPATION IN [facility] BALANCE SPECIALTY PROGRAM [code = PHYSICAL THERAPY TO INSTRUCT PATIENT/CAREGIVER ON BALANCE AND BALANCE STRATEGIES TO IMPROVE SAFE MOBILITY AND REDUCE RISK FOR FALL AND INJURY INCLUDING PARTICIPATION IN [facility] SPECIALTY PROGRAM] Future Scheduled Test [...] End Date/Time Encounter Type Admission Type Attending [facility] Care Department Encounter ID Discharge Date Discharge Status Discharge Condition Discharge Reason Percent Goals Met 2021-12-08 00:00:00 2021-12-27 00:00:00 Outpatient NEW ADMISSION KENDALL PINEDO [facility] [id number] 00:00:00 DISCHARGED /TRANSFERR ED TO ANOTHER TYPE OF HEALTH CARE INSTITUTIO N NOT DEFINED ELSEWHERE IN THIS CODE LIST INDEPENDEN T IN THE HOME GOALS MET ( ONLY) 100.00
== END 2024-06-12 14:02 | disposition home or self-care (01) ==
LOC: HO.HAP 14:01
PROVIDERS: Visit Provider Internal Medicine
DX: Z13.89 Encounter for screening for other disorder (principal)

== ENCOUNTER 2024-06-16 19:55 | Inpatient (IN) | payer MEDICARE, MEDICAID, SELFPAY ==
--- NOTE | ~2024-06-16 | CT_ITS ---
CLINICAL HISTORY: LLQ pain, divertic CT abdomen and pelvis with contrast Comparison: CT/SR - CT ABDOMEN PELVIS W IV CON - 06/03/24 13:[address]/SR - CT ABDOMEN PELVIS W IV CON - 06/26/22 19:02 EST Findings: Mild bibasilar atelectasis. Small hepatic hypodensities likely cysts. Gallbladder, spleen, and pancreas are within normal limits. Chronic mild thickening of the adrenal glands. Left nephroureteral stent in place with ureteral wall thickening and periureteral stranding, similar to prior. Collecting system dilatation has resolved. Symmetric contrast enhancement of the kidneys. Bilateral nonobstructing renal calculi. Small cortical cysts. Large amount of stool in the sigmoid colon. Colonic diverticulosis without acute inflammation. No bowel obstruction, pneumatosis or pneumoperitoneum. Aortic atherosclerosis with infrarenal abdominal aortic aneurysm measuring 3.8 x 3.0 cm, similar to the recent prior exam when measured in the same manner. Hysterectomy. Urinary bladder is within normal limits. 1.1 x 0.8 cm enhancing soft tissue nodule adjacent to the left vaginal cuff, similar to 2022. Phlebolith in the left hemipelvis. Osteopenia. Degenerative changes of the spine. IMPRESSION: 1. Large amount of stool in the sigmoid colon. No evidence of diverticulitis. 2. Left nephroureteral stent with periureteral inflammatory changes, similar to prior. Collecting system dilatation has resolved. 3. 1.1 x 0.8 cm enhancing left vaginal cuff nodule, stable since 2022. This document has been electronically signed by: Mis Landis MD on 06/16/2024 21:55:55
[2024-06-16 20:09] VITALS: BP 172/80; PULSE 60; O2SAT 98
[2024-06-16 20:23] LABS: MANUAL DIFF FLAG NO
[2024-06-16 20:25] LABS: Basophils Absolute Auto 0.1 X10*3/uL (0.0-0.2); Eosinophils Absolute Auto 0.2 X10*3/uL (0.0-0.4); Eosinophils Percent Auto 2.1 % (0-4); Hematocrit 38.7 % (37.0-47.0); Hemoglobin 12.2 g/dl (12.0-16.0); Imm Gran Abs Auto 0.03 X10*3/uL (0.00-0.03); Imm Gran Pct Auto 0.4 % (0.0-0.4); Lymphocytes Absolute Auto 2.2 X10*3/uL (1.2-4.9); Lymphocytes Percent Auto 27.5 % (20-40); Mean Corpuscular HGB Conc 31.5 g/dl (31.0-35.0); Mean Corpuscular Hemoglobin 28.2 pg (27.0-33.0); Mean Corpuscular Volume 89.4 fL (80.0-98.0); Mean Platelet Volume 9.1 fL (9.4-12.3); Monocytes Absolute Auto 0.5 X10*3/uL (0.1-1.2); Monocytes Percent Auto 6.2 % (2-11); Neutrophils Absolute Auto 5.1 x10*3/uL (2.0-8.3); Neutrophils Percent Auto 62.8 % (45-73); Platelet Count 228 X10*3/uL (160-400); Red Blood Count 4.33 X10*6/uL (4.20-5.50); Red Cell Distribution Width 15.2 % (11.0-16.0)
[2024-06-16] MEDS: Ketorolac Tromethamine 15 MG/ML VIAL IVPUSH (20:37)
[2024-06-16] MEDS: 0.9 % Sodium Chloride 500 ML IV (20:37)
[2024-06-16 20:40] VITALS: BMI 30.1
[2024-06-16 20:40] LABS: Alanine Aminotransferase 9 U/L (0-31); Albumin Level 3.6 g/dL (3.5-5.0); Anion Gap 14 (12-20); Aspartate Amino Transferase 23 U/L (5-31); Bilirubin Total 0.2 mg/dL (0.0-1.0); Blood Urea Nitrogen 23 mg/dL (9-16); Calcium 9.4 mg/dL (8.4-10.2); Carbon Dioxide 25 mmol/L (22-29); Chloride 110 mmol/L (96-108); Estimated Glomerular Filt Rate > 60; Glucose Random 99 mg/dL (60-115); Magnesium 2.1 mg/dL (1.6-2.6); Potassium 4.2 mmol/L (3.3-5.1); Sodium 145 mmol/L (135-145)
--- OUTSIDE RECORDS SUMMARY | 2024-06-16 20:50 | XMS_ITS | Clinical Summary ---
Author Organization Unknown Care Team Providers Care Nut Sheller Name Role Phone NO LORA, HUBERT Unavailable Unavailable KHRIS PT, KENDALL Unavailable Unavailable Payers Payer Name Policy Type Policy Number Effective Date Expira tion Date MEDICARE - [place] [id number] MEDICAID [facility] [id number] Problems Condition Name Condition Details Condition Category Status Onset Date Resolution Date Last Treatment Date Treating Clinician Comments ESSENTIAL (PRIMARY) HYPERTENSION Active 12-08 00:00: 00 SICK SINUS SYNDROME Active 06-04 00:00: 00 ATHSCL HEART DISEASE OF [place] CORONARY ARTERY W/O ANG PCTRS Active 06-04 [...] UNSPECIFIED, UNCOMPLICATE D Active 06-04 00:00: 00 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 Active 06-04 00:00: 00 PRESENCE OF CARDIAC PACEMAKER Active 06-04 00:00: 00 [facility] (CURRENT) USE OF ANTITHROMBOT ICS/ANTIPLAT ELETS Active [...] 11-21 00:00: 00 11-09 23:59 :00 No [id number] 1 tablet EVERY DAY 1 tablet EVERY DAY (route: oral) Med Classific ation: Gout and Hyperuric emia Therapy amlodipine 2.5 mg tablet 11-21 00:00: 00 11-09 23:59 :00 No [id number] 1 tablet EVERY DAY 1 tablet EVERY DAY (route: oral) Med Classific ation: Cardiovas cular Therapy Agents cyanocobala min (vit B-12) 1,000 mcg tablet 12-08 00:00: 00 11-09 23:59 :00 No [id number] 1 tablet DAILY 1 tablet DAILY (route: oral) Med Classific ation: Electroly te Balance-N utritiona l Products donepezil 5 mg tablet 12-08 00:00: 00 11-09 23:59 :00 No [id number] 1 tablet DAILY 1 tablet DAILY (route: oral) Med Classific ation: Cognitive Disorder Therapy famotidine 40 mg tablet 12-08 00:00: 00 11-09 23:59 :00 No [id number] 1 tablet DAILY 1 tablet DAILY (route: oral) Med Classific ation: Gastroint estinal Therapy Agents levothyroxi ne 100 mcg tablet 12-08 00:00: 00 11-09 23:59 :00 No [id number] 1 tablet DAILY 1 tablet DAILY (route: oral) Med Classific ation: Endocrine lisinopril 40 mg tablet 12-08 00:00: 00 11-09 23:59 :00 No [id number] 1 tablet DAILY 1 tablet DAILY (route: oral) Med Classific ation: Cardiovas cular Therapy Agents Plavix 75 mg tablet 12-08 00:00: 00 11-09 23:59 :00 No [id number] 1 tablet DAILY 1 tablet DAILY (route: oral) Med Classific ation: Hematolog ical Agents pregabalin 100 mg capsule 12-08 00:00: 00 11-09 23:59 :00 No [id number] 1 capsule 2 TIMES DAILY 1 capsule 2 TIMES DAILY (route: oral) Med Classific ation: Central Nervous System Agents rosuvastati n 20 mg tablet 12-08 00:00: 00 11-09 23:59 :00 No [id number] 1 mg DAILY 1 mg DAILY (route: oral) Med Classific ation: Cardiovas cular Therapy Agents Tresiba FlexTouch U-200 insulin 200 unit/mL (3 mL) subcutaneou s pen 12-08 00:00: 00 11-09 23:59 :00 No [id number] 18 unit EVERY PM 18 unit EVERY PM (route: subcutaneo us) Med Classific ation: Endocrine metoprolol succinate ER 25 mg tablet,exte nded release 24 hr 12-08 00:00: 00 11-09 23:59 :00 No [id number] 2 tablet DAILY 2 tablet DAILY (route: [...] HOSPITALIZATION/INPATIENT ADMISSION RELATED TO: PATIENT IS A [place] 76 YO CONFUSED FEMALE S/P HOSPITALIZATION 12/06-12/08/21 FOR DIZZINESS AND CHEST PAIN. HOSPITAL TESTS REVEALED ABNORMAL STRESS TEST. PATIENT REPORTS 3 BACK SURGERIES. PATIENT REPORTS SMOKES 3-4 CIGARETTES A DAY, STAFF REPORTS 8-10 CIGARETTES A DAY. DAY PRIOR TO HOSPITALIZATION, PATIENT WAS ATTENDING [facility], CHAIN SMOKED 1 PACK OF [...] PATIENT LIVING SITUATION/CAREGIVER STATUS: PATIENT LIVES AT [facility], SHARES LARGE ROOM WITH TWO OTHER [...] HOSPITALIZATION/INPATIENT ADMISSION RELATED TO: PATIENT IS A [place] 76 YO CONFUSED FEMALE S/P HOSPITALIZATION 12/06-12/08/21 FOR DIZZINESS AND CHEST PAIN. HOSPITAL TESTS REVEALED ABNORMAL STRESS TEST. PATIENT REPORTS 3 BACK SURGERIES. PATIENT REPORTS SMOKES 3-4 CIGARETTES A DAY, STAFF REPORTS 8-10 CIGARETTES A DAY. DAY PRIOR TO HOSPITALIZATION, PATIENT WAS ATTENDING [facility], CHAIN SMOKED 1 PACK OF CIGARETTES IN 3-4 HOURS. PAST MEDICAL HISTORY: PAST MD HX: DEMENTIA, DM ON INSULIN, [place], PACEMAKER 3 YEARS AGO, HYPERTENSION, HLD PATIENT'S PCP IS MD JEFF SARABAI, NEXT FACE TO FACE 12/12/21. THIS THERAPIST CALLED MD SARABIA'S OFFICE TO CONFIRM MD DIAGNOSES, REQUEST MD SARABIA SIGN FOR PHYSICAL THERAPY ORDERS, NEW OR CHANGED MEDICATIONS PERTINENT TO THE PLAN OF CARE: LEVOTHYROXINE HELD 3 DAYS, RESUME 12/09/21 AT 100 MG DAILY CRESTOR INCREASED TO 20 MG DAILY NORVASC INCREASED TO 5 MG DAILY PATIENT LIVING SITUATION/CAREGIVER STATUS: PATIENT LIVES AT [facility], SHARES LARGE ROOM WITH TWO OTHER [...] FOR FALL AND INJURY INCLUDING PARTICIPATION IN [facility] BALANCE SPECIALTY PROGRAM [code = PHYSICAL THERAPY TO INSTRUCT PATIENT/CAREGIVER ON BALANCE AND BALANCE STRATEGIES TO IMPROVE SAFE MOBILITY AND REDUCE RISK FOR FALL AND INJURY INCLUDING PARTICIPATION IN [facility] SPECIALTY PROGRAM] Future Scheduled Test PHYSICAL T [...] End Date/Time Encounter Type Admission Type Attending [facility] Care Department Encounter ID Discharge Date Discharge Status Discharge Condition Discharge Reason Percent Goals Met 2021-12-08 00:00:00 2021-12-27 00:00:00 Outpatient NEW ADMISSION KENDALL PINEDO [facility] [id number] 00:00:00 DISCHARGED /TRANSFERR ED TO ANOTHER TYPE OF HEALTH CARE INSTITUTIO N NOT DEFINED ELSEWHERE IN THIS CODE LIST INDEPENDEN T IN THE HOME GOALS MET ( ONLY) 100.00
[2024-06-16 21:01] LABS: Alkaline Phosphatase 100 U/L (39-117)
[2024-06-16] MEDS: iohexoL 350 MG/ML 100 ML INFUS..BTL 85 ML IV (21:02)
[2024-06-16 21:31] VITALS: BP 200/77; PULSE 60; RESP 18; TEMP 36.5; O2SAT 99
[2024-06-16 21:38] LABS: Appearance Urine Hazy; Color Urine BROWN; Glucose Urine UA Negative (Negative); Leukocyte Esterase Urine Trace (Negative); Nitrite Urine Positive (Negative); PH 6.5 (5.0-9.0); UMIC TRIGGER UACC YES; Urine Blood Large (3+) (Negative); Urine Ketones Trace mg/dL (Negative); Urine Protein 100 (2+) mg/dL (Neg-Trace)
[2024-06-16 21:48] LABS: Bacteria Urine Trace (None Seen); Hyaline Casts Urine 0-2 /LPF (0-2); RBC Urine >20 /HPF (0-2); UACC Culture Trigger YES; WBC Urine >50 /HPF (0-5)
[2024-06-16] MEDS: Morphine Sulfate 10 MG/ML CARTRIDGE 8 MG IVPUSH (22:07)
[2024-06-16] MEDS: ondansetron HCL 4 MG/2 ML VIAL IVPUSH (22:07)
[2024-06-16 22:08] VITALS: BP 170/76
[2024-06-16 22:16] VITALS: BP 170/76; PULSE 59; RESP 18; TEMP 36.8; O2SAT 96
--- NOTE | 2024-06-16 22:54 | PC.NURSE ---
allergy list updated and verified utilizing paperwork from facility that pt arrived with.
[2024-06-16] MEDS: levoFLOXacin/D5W 750 MG/150 ML PIGGYBACK 100 MG IV (23:06)
[2024-06-16 23:22] LABS: Lactic Acid 0.9 mmol/L (0.5-2.0)
--- NOTE | 2024-06-16 23:48 | ED.FEMALEGU ---
HPI - Female Genitourinary General Chief complaint: Urogenital-Female Stated complaint: HEMATURIA, DIZZY, DIFF URINATION PER EMS Time Seen by Provider: 06/16/24 20:10 Source: patient Limitations: other (dementia) History of Present Illness ED Provider: Carmenza Bo PA-C HPI Narrative: 78-year-old female with a history of dementia, diabetes, kidney stones now status post cystoscopy, left ureteral stent exchange, laser lithotripsy by Dr. Ernst on April 22, presents with the abdominal pain since earlier today. Pain over left lower quadrant with radiation to left low back. Patient unable to describe the nature of her discomfort. Denies dysuria, hematuria, diarrhea, nausea vomiting. Subjective fever at home. History limited secondary to patient's dementia. Related Data Home Medications ?Medication ?Instructions ?Recorded ?Confirmed lisinopril 40 mg tablet 40 mg PO DAILY 11/04/20 06/03/24 rosuvastatin 20 mg tablet 20 mg PO BEDTIME 12/14/21 06/03/24 acetaminophen 325 mg tablet 650 mg PO Q4H PRN Pain 04/16/24 06/03/24 aluminum-mag hydroxide-simethicone 30 ml PO Q4H PRN GI UPSET 04/16/24 06/03/24 200 mg-200 mg-20 mg/5 mL oral susp (Mintox) glycerin (adult) 1 supp TX DAILY PRN Constipation 04/16/24 06/03/24 loperamide 2 mg capsule 2 mg PO Q4H PRN LOOSE STOOLS 04/16/24 06/03/24 magnesium hydroxide 400 mg/5 mL 30 ml PO DAILY PRN Constipation 04/16/24 06/03/24 oral suspension (Milk of Magnesia) sennosides 8.6 mg-docusate sodium 2 tab PO BID 04/16/24 06/03/24 50 mg tablet (Stool Softener-Laxative) vitamins A,C,L-texo-uusxlw 2,148 1 tab PO BID 04/16/24 06/03/24 mcg-113 mg-45 mg-17.4 mg tablet (PreserVision AREDS) levothyroxine 100 mcg tablet 100 mcg PO DAILY 06/03/24 06/03/24 Previous Rx's ?Medication ?Instructions ?Recorded blood-glucose meter (Grupanya #100 ea 09/01/20 Ultra2 Meter) insulin degludec 100 unit/mL (3 18 unit (0.18 mL) subcut BEDTIME 07/20/21 mL) subcutaneous pen (Tresiba #15 mL FlexTouch U-100 insulin) pyridoxine (vitamin B6) 100 mg 100 mg PO DAILY 90 days #90 tabs 09/27/21 tablet blood sugar diagnostic #100 ea 10/20/21 lancets 33 gauge (OneTouch Delica #100 ea 10/20/21 Lancets) pen needle, diabetic 33 gauge x #100 ea 11/18/21 5/32 (Comfort EZ Pen [place]) cyanocobalamin (vitamin B-12) 1,000 mcg PO DAILY #30 tabs 12/30/21 1,000 mcg tablet blood sugar diagnostic (FreeStyle #100 ea 01/13/22 Lite Strips) cholecalciferol (vitamin D3) 125 125 mcg PO DAILY #90 caps 02/16/22 mcg (5,000 unit) capsule famotidine 40 mg tablet 40 mg PO DAILY #90 tabs 02/16/22 clopidogrel 75 mg tablet 75 mg PO DAILY #90 tabs 03/09/22 donepezil 5 mg tablet 5 mg PO BEDTIME #90 tabs 03/09/22 gabapentin 100 mg capsule 100 mg PO BID #180 caps 03/09/22 metoprolol succinate 25 mg 50 mg (2 x 25 mg) PO DAILY #90 tabs 03/09/22 tablet,extended release 24 hr allopurinol 100 mg tablet 100 mg PO DAILY 90 days #90 tabs 03/27/22 aspirin 81 mg capsule 81 mg PO DAILY #30 caps 06/26/22 polyethylene glycol 3350 17 17 g PO BID PRN constipation #238 11/10/22 gram/dose oral powder (Miralax) grams amlodipine 5 mg tablet 5 mg PO DAILY #90 tabs 05/06/24 Allergies Allergy/AdvReac Type Severity Reaction Status Date / Time atorvastatin Allergy Unknown pt does Verified 06/16/24 22:54 not know azithromycin Allergy Unknown pt does Verified 06/16/24 22:54 not know ceftriaxone Allergy Unknown pt does Verified 06/16/24 22:54 not know citalopram Allergy Unknown pt does Verified 06/16/24 22:54 not know metformin Allergy Unknown pt does Verified 06/16/24 22:54 not know Review of Systems Review of Systems: Yes all other systems are reviewed and are negative Constitutional: Constitutional: Denies fatigue and Denies fever(s) Cardiovascular: Cardiovascular: Denies chest pain and Denies dyspnea Respiratory: Respiratory: Denies cough and Denies dyspnea Gastrointestinal: Gastrointestinal: Denies diarrhea, Denies nausea and Denies vomiting Genitourinary: Genitourinary: Denies hematuria and Denies dysuria Musculoskeletal: Musculoskeletal: Reports back pain Endocrine: Endocrine: Denies fatigue PMFSH Past Medical History Attestation statement: The following information was validated with the patient. Medical History Bilateral kidney stones Annual physical exam HTN (hypertension) IDDM (insulin dependent diabetes mellitus) Diverticulitis Nephrolithiasis Cataract Hyperlipidemia Pacemaker Myocardial infarct Macular degeneration Nephrolithiasis Dementia Frequent UTI HTN (hypertension) Hypothyroid Diabetes Surgical History Status post lumbar spine surgery for decompression of spinal cord H/O left knee surgery Family History Family History Father Heart attack Mother Heart problem Heart attack Substance use disorder Social History Social History Household Members: Other Household Members Other:: lives in assisted living Housing: Assisted Living Facility Housing Other:: [facility] Do you presently have visiting nurse or other home services: No Alcohol intake: never Comment: pt will get oob without assistance. Patient Tobacco Use Status: Former Tobacco user Tobacco use type: Cigarette Cigarettes Per Day: 10.0 Years Smoked: 54 Smoked in Last 30 Days: No e-Cigarette/Vaping Use: Never Used Second Hand Smoke Exposure: No Use of substances other than those prescribed or required for medical reasons: No Advance Directives: Yes Advance Directives on File: Yes Advance Directives Date on File: 11/05/20 Do you have a plan to hurt others: No Plan service: No Current occupational status: retired Cognitive needs: No Hearing needs: No Vision needs: Yes Physical Exam Vital Signs: Vital Signs: Last Vital Signs Temp 98 F 06/17/24 00:25 Pulse 60 06/17/24 00:25 Resp 16 06/17/24 00:25 BP 120/54 L 06/17/24 00:25 Pulse Ox 94 06/17/24 00:25 O2 Del Method Room Air 06/17/24 00:25 BMI result Body Mass Index 30.1 Const: Other: Alert Orientation/consciousness: patient oriented x3 Resp: Effort & Inspection: normal respiratory effort Cardio: Other: Normal peripheral perfusion GI: Other: Abdomen is soft, nondistended, moderate pain left lower quadrant with moderate involuntary guarding Skin: Other: Warm dry no rash Neuro: General: patient oriented x3, no focal motor deficits and CN's II-XI intact bilaterally Psych: Other: Cooperative Course Consultations Consultation #1: paged Dr. Ernst...he feels it would be appropriate to admit for IVF and IV abx Time: 00:05 Medications Administered Discontinued Medications Generic Name Dose Route Start Last Admin Trade Name Freq PRN Reason Stop Dose Admin Sodium Chloride 500 mls @ 500 mls/hr 06/16/24 20:16 06/16/24 21:48 Ns IV 06/16/24 21:15 Infused .Q1H ONE Infusion Levofloxacin 750 mg in 150 mls @ 100 mls/hr 06/16/24 22:51 06/16/24 23:06 Levaquin IV 06/17/24 00:20 100 mls/hr ONCE ONE Administration Iohexol 85 ml 06/16/24 21:00 06/16/24 21:02 Iohexol 350 Mg/Ml 100 Ml Infus..Btl IV 06/16/24 21:01 85 ml ONCE ONE Administration Ketorolac Tromethamine 15 mg 06/16/24 20:16 06/16/24 20:37 Ketorolac Tromethamine 15 Mg/Ml Vial IVPUSH 06/16/24 20:17 15 mg ONCE ONE Administration Morphine Sulfate 8 mg 06/16/24 21:59 06/16/24 22:07 Morphine Sulfate 10 Mg/Ml Cartridge IVPUSH 06/16/24 22:00 8 mg ONCE ONE Administration Protocol Ondansetron HCl 4 mg 06/16/24 21:59 06/16/24 22:07 Ondansetron Hcl 4 Mg/2 Ml Vial IVPUSH 06/16/24 22:00 4 mg ONCE ONE Administration Medical Decision Making Medical Decision Making MDM Narrative: 78-year-old female with a history of dementia, diabetes, kidney stones now status post cystoscopy, left ureteral stent exchange, laser lithotripsy by Dr. Ernst on April 22, presents with the abdominal pain since earlier today. Pain over left lower quadrant with radiation to left low back. Patient unable to describe the nature of her discomfort. Denies dysuria, hematuria, diarrhea, nausea vomiting. Subjective fever at home. History limited secondary to patient's dementia. Problem: Age, dementia, diabetes, known left ureteral stent History: Per patient which is limited I have considered the following differential diagnoses: Plan: Patient's history is vague, given her history I am considering dysfunction of the stent versus new obstruction, versus diverticulitis given distribution of discomfort. We will be obtaining a CT scan. Giving gentle fluids as she is normotensive, and Toradol for pain. We will be screening basic labs and a urinalysis. I have independently reviewed the following tests: Labs: No leukocytosis, not anemic, no electrolyte abnormality, urine is infected with a huge amount of hematuria, lactic acid 0.9 adding blood cultures lactic acid and starting Levaquin. In chart review, she has had Levaquin without any adverse reaction. CT abdomen and pelvis:IMPRESSION: 1. Large amount of stool in the sigmoid colon. No evidence of diverticulitis. 2. Left nephroureteral stent with periureteral inflammatory changes, similar to prior. Collecting system dilatation has resolved. 3. 1.1 x 0.8 cm enhancing left vaginal cuff nodule, stable since 2022. This document has been electronically signed by: Mis Landis MD on 06/16/2024 21:55:55 Lab Data 06/16/24 20:20 06/16/24 20:20 Labs: Lab Results 06/16/24 06/16/24 06/16/24 Range/Units 20:20 21:33 23:02 WBC 8.0 (4.8-10.8) X10*3/uL RBC 4.33 (4.20-5.50) X10*6/uL Hgb 12.2 (12.0-16.0) g/dl Hct 38.7 (37.0-47.0) % MCV 89.4 (80.0-98.0) fL MCH 28.2 (27.0-33.0) pg MCHC 31.5 (31.0-35.0) g/dl RDW 15.2 (11.0-16.0) % Plt Count 228 (160-400) X10*3/uL MPV 9.1 L (9.4-12.3) fL Immature Gran % (Auto) 0.4 (0.0-0.4) % Neut % (Auto) 62.8 (45-73) % Lymph % (Auto) 27.5 (20-40) % [place] % (Auto) 6.2 (2-11) % Eos % (Auto) 2.1 (0-4) % Baso % (Auto) 1.0 (0-2) % Lymph # (Auto) 2.2 (1.2-4.9) X10*3/uL [place] # (Auto) 0.5 (0.1-1.2) X10*3/uL Eos # (Auto) 0.2 (0.0-0.4) X10*3/uL Baso # (Auto) 0.1 (0.0-0.2) X10*3/uL Abs Immat Gran (auto) 0.03 (0.00-0.03) X10*3/uL Absolute Neuts (auto) 5.1 (2.0-8.3) x10*3/uL Absolute Nucleated RBC 0.000 (0.0-0.012) X10*3/uL Nucleated RBC % (auto) 0.0 (0.0-0.2) /100WBC Sodium 145 (135-145) mmol/L Potassium 4.2 (3.3-5.1) mmol/L Chloride 110 H (96-108) mmol/L Carbon Dioxide 25 (22-29) mmol/L Anion Gap 14 (12-20) BUN 23 H (9-16) mg/dL Creatinine 0.79 (0.5-1.4) mg/dL Estim Creat Clear Calc TNP Estimated GFR > 60 Random Glucose 99 (60-115) mg/dL Lactic Acid 0.9 (0.5-2.0) mmol/L Calcium 9.4 D (8.4-10.2) mg/dL Magnesium 2.1 (1.6-2.6) mg/dL Total Bilirubin 0.2 (0.0-1.0) mg/dL AST 23 (5-31) U/L ALT 9 (0-31) U/L Alkaline Phosphatase 100 (39-117) U/L Total Protein 7.0 (6.5-8.0) g/dL Albumin 3.6 (3.5-5.0) g/dL Urine Color BROWN Urine Appearance Hazy Urine pH 6.5 (5.0-9.0) Ur Specific [place] 1.010 (1.005-1.025) Urine Protein 100 (2+) H (Neg-Trace) mg/dL Urine Glucose (UA) Negative (Negative) mg/dL Urine Ketones Trace (Negative) mg/dL Urine Blood Large (3+) H (Negative) Urine Nitrite Positive H (Negative) Ur Leukocyte Esterase Trace H (Negative) Urine RBC >20 H (0-2) /HPF Urine WBC >50 H (0-5) /HPF Ur Squamous Epith Cells 3-5 (0-2) /HPF Urine Bacteria Trace (None Seen) Hyaline Casts 0-2 (0-2) /LPF Discharge Plan Discharge Clinical Impression: Ureteral stent present, Urinary tract infection, Gross hematuria, Abdominal pain Patient Disposition: Admitted As Inpatient Print Language: Micronesian
[2024-06-17] VITALS (10 sets, daily range): BP systolic 120–194; BP diastolic 54–86; PULSE 59–60; RESP 16; TEMP 35.8–36.6; O2SAT 94–96
--- NOTE | 2024-06-17 00:28 | PC.NURSE ---
pt resting comfortably on stretcher in no apparent distress, respirations even and unlabored. call garay within reach, plan of care ongoing
--- NOTE | 2024-06-17 00:57 | P.HPHOSP_ITS ---
History of Present Illness Date of Service: 06/17/24 Attending physician on admission: Abner Mays Chief Complaint: Hematuria Patient is an 78-year-old female with a past medical history significant for dementia, diabetes (no meds, diet controlled), kidney stones s/p cystoscopy, left ureteral stent exchange laser lithotripsy with Dr. Ernst on 04/22, who presented to the ED yesterday with abdominal pain starting that morning. She described left lower quadrant and suprapubic pain with possible radiation to the left low back. She is a difficult historian due to her dementia. She denies dysuria, diarrhea, nausea or vomiting. She reports a subjective fever at home and some gross hematuria mostly with streaking rather than gill hematuria. She also describes some urinary retention. Review of Systems 2 Constitutional: Constitutional: Denies body ache(s), Denies chills, Denies fatigue, Reports fever(s) and Denies headache(s) Eyes: Eyes: Denies change in vision ENT: Denies headache(s), Denies nasal congestion, Denies nasal discharge and Denies sore throat Cardiovascular: Cardiovascular: Denies chest pain, Denies rapid heart rate, Denies leg edema and Denies dyspnea Respiratory: Respiratory: Denies chest congestion, Denies cough, Denies dyspnea and Denies wheezing Gastrointestinal: Gastrointestinal: Denies diarrhea, Denies nausea and Denies vomiting Genitourinary: Genitourinary: Reports hematuria and Reports urinary hesitancy Musculoskeletal: Musculoskeletal: Denies myalgias Integumentary/Breasts: Skin/Breast: Denies rash Neurologic: Denies confusion and Denies headache(s) Psychiatric: Psychiatric: Denies confusion Endocrine: Endocrine: Denies fatigue Hematologic/Lymphatic: Hematologic/Lymphatic: Denies easy bleeding and Denies easy bruising Allergic/Immunologic: Allergic/Immunologic: Denies wheezing [facility] Medical History Bilateral kidney stones Annual physical exam HTN (hypertension) IDDM (insulin dependent diabetes mellitus) Diverticulitis Nephrolithiasis Cataract Hyperlipidemia Pacemaker Myocardial infarct Macular degeneration Nephrolithiasis Dementia Frequent UTI HTN (hypertension) Hypothyroid Diabetes Family History Father Heart attack Mother Heart problem Heart attack Substance use disorder Surgical History Status post lumbar spine surgery for decompression of spinal cord H/O left knee surgery Social History Household Members: Other Household Members Other:: lives in assisted living Housing: Assisted Living Facility Housing Other:: [facility] Do you presently have visiting nurse or other home services: No Alcohol intake: never Comment: pt will get oob without assistance. Patient Tobacco Use Status: Former Tobacco user Tobacco use type: Cigarette Cigarettes Per Day: 10.0 Years Smoked: 54 Smoked in Last 30 Days: No e-Cigarette/Vaping Use: Never Used Second Hand Smoke Exposure: No Use of substances other than those prescribed or required for medical reasons: No Advance Directives: Yes Advance Directives on File: Yes Advance Directives Date on File: 11/05/20 Do you have a plan to hurt others: No Plan Nutrition Risks: No Nutritional Risk service: No Current occupational status: retired Cognitive needs: No Hearing needs: No Vision needs: Yes Narrative: Smokes about 10 cigarettes per day, no alcohol or drug use. Meds Allergies Allergy/AdvReac Type Severity Reaction Status Date / Time atorvastatin Allergy Unknown pt does Verified 06/16/24 22:54 not know azithromycin Allergy Unknown pt does Verified 06/16/24 22:54 not know ceftriaxone Allergy Unknown pt does Verified 06/16/24 22:54 not know citalopram Allergy Unknown pt does Verified 06/16/24 22:54 not know metformin Allergy Unknown pt does Verified 06/16/24 22:54 not know Active Medications: Current Medications Acetaminophen (Acetaminophen 325 Mg Tablet) 650 mg PO Q6H PRN PRN Reason: Pain, Mild 1-3,fever,headache Calcium Carbonate (Calcium Carbonate 750 Mg Tab.Chew) 750 mg PO Q4H PRN PRN Reason: Heartburn Ceftriaxone Sodium (Ceftriaxone Sodium 1 Gm Vial) 1 gm IVPUSH Q24H MAGNUS Enoxaparin Sodium (Enoxaparin Sodium 40 Mg/0.4 Ml Syringe) 40 mg SUBCUT Q24H MAGNUS Lactated Ringer's (Lr) 1,000 mls @ 999 mls/hr IV .Q1H1M MAGNUS Stop: 06/17/24 01:45 Magnesium Hydroxide (Milk Of Magnesia 30 Ml Oral.Susp) 30 ml PO DAILY PRN PRN Reason: Constipation Melatonin (Melatonin 3 Mg Tablet) 6 mg PO BEDTIME PRN PRN Reason: Insomnia Ondansetron HCl (Ondansetron Hcl 4 Mg/2 Ml Vial) 4 mg IVPUSH Q8H PRN PRN Reason: Nausea and Vomiting Sodium Chloride (0.9 % Sodium Chloride Flush 3 Ml Syringe) [facility] Medications ?Medication ?Instructions ?Recorded ?Confirmed ?Last Taken ?Type lisinopril 40 mg tablet 40 mg PO DAILY 11/04/20 06/03/24 11/03/20 History rosuvastatin 20 mg tablet 20 mg PO BEDTIME 12/14/21 06/03/24 Unknown History acetaminophen 325 mg tablet 650 mg PO Q4H PRN Pain 04/16/24 06/03/24 Unknown History aluminum-mag hydroxide-simethicone 30 ml PO Q4H PRN GI UPSET 04/16/24 06/03/24 Unknown History 200 mg-200 mg-20 mg/5 mL oral susp (Mintox) glycerin (adult) 1 supp [place] DAILY PRN Constipation 04/16/24 06/03/24 Unknown History loperamide 2 mg capsule 2 mg PO Q4H PRN LOOSE STOOLS 04/16/24 06/03/24 Unknown History magnesium hydroxide 400 mg/5 mL 30 ml PO DAILY PRN Constipation 04/16/24 06/03/24 Unknown History oral suspension (Milk of Magnesia) sennosides 8.6 mg-docusate sodium 2 tab PO BID 04/16/24 06/03/24 Unknown History 50 mg tablet (Stool Softener-Laxative) vitamins A,C,W-ktui-cfemgj 2,148 1 tab PO BID 04/16/24 06/03/24 Unknown History mcg-113 mg-45 mg-17.4 mg tablet (PreserVision AREDS) levothyroxine 100 mcg tablet 100 mcg PO DAILY 06/03/24 06/03/24 Unknown History Physical Exam 2 Vital Signs and Narrative: Vital Signs: Last Vital Signs Temp 98 F 06/17/24 00:25 Pulse 60 06/17/24 00:25 Resp 16 06/17/24 00:25 BP 120/54 L 06/17/24 00:25 Pulse Ox 94 06/17/24 00:25 O2 Del Method Room Air 06/17/24 00:25 BMI result Body Mass Index 30.1 General: Alert and oriented person and that she is in the hospital, does not know date, no acute distress Resp: CTA bilaterally CVS: S1, S2, RRR GI: +BS, lower abdominal tenderness, no distention Skin: Warm, dry Neuro: Cranial nerves II-XII grossly intact bilaterally. Motor grossly intact bilaterally Extremities: No lower extremity edema Psych: Appropriate affect Const: General: No confusion Orientation/consciousness: No confusion Neuro: General: No confusion Results Labs 06/16/24 20:20 06/16/24 20:20 Labs: Laboratory Results - last 24 hr 06/16/24 06/16/24 06/16/24 20:20 21:33 23:02 MCV 89.4 MCH 28.2 MCHC 31.5 RDW 15.2 Plt Count 228 MPV 9.1 L Immature Gran % (Auto) 0.4 Neut % (Auto) 62.8 Lymph % (Auto) 27.5 [place] % (Auto) 6.2 Eos % (Auto) 2.1 Baso % (Auto) 1.0 Lymph # (Auto) 2.2 [place] # (Auto) 0.5 Eos # (Auto) 0.2 Baso # (Auto) 0.1 Abs Immat Gran (auto) 0.03 Absolute Neuts (auto) 5.1 Absolute Nucleated RBC 0.000 Nucleated RBC % (auto) 0.0 Anion Gap 14 Estim Creat Clear Calc TNP Estimated GFR > 60 Random Glucose 99 Lactic Acid 0.9 Calcium 9.4 D Magnesium 2.1 Total Bilirubin 0.2 AST 23 ALT 9 Alkaline Phosphatase 100 Total Protein 7.0 Albumin 3.6 Urine Color BROWN Urine Appearance Hazy Urine pH 6.5 Ur Specific [place] 1.010 Urine Protein 100 (2+) H Urine Glucose (UA) Negative Urine Ketones Trace Urine Blood Large (3+) H Urine Nitrite Positive H Ur Leukocyte Esterase Trace H Urine RBC >20 H Urine WBC >50 H Ur Squamous Epith Cells 3-5 Urine Bacteria Trace Hyaline Casts 0-2 Assessment and Plan (1) Acute metabolic encephalopathy: Status: Acute (2) Urinary tract infection: Status: Acute (3) Ureteral stent present: Status: Acute Plan Patient is an 78-year-old female with a past medical history significant for dementia, diabetes (no meds, diet controlled), kidney stones s/p cystoscopy, left ureteral stent exchange laser lithotripsy with Dr. Ernst on 04/22, who presented to the ED yesterday with abdominal pain starting that morning. Patient found to have gross hematuria in ED, vital signs stable, questionable acute metabolic encephalopathy versus baseline dementia. Currently has a ureteral stent in place, recommended admission per Urology for IV antibiotics. Acute metabolic encephalopathy secondary to urinary tract infection with ureteral stent in place - WBC normal, vital signs stable, lactic acid normal, no sepsis - UA positive, culture pending - abdominopelvic CT with large amount of stool in the sigmoid colon, left nephroureteral stent with periureteral inflammatory changes similar to prior, collecting system dilation has resolved, and 1.1 cm enhancing left vaginal cuff nodule stable since 2022 - started on Levaquin in ED, switch to ceftriaxone - admit per Urology recommendation - monitor CBC and BMP Type 2 diabetes - no home meds - monitor POC - if blood sugar is elevated add sliding scale Dementia - continue home meds Vaginal cuff nodule - stable since 2022 on imaging - follow-up outpatient Med rec not complete upon admission Full code VTE prophylaxis: Lovenox Patient with acute metabolic encephalopathy secondary to urinary tract infection complicated by ureteral stent in place, requiring admission for IV antibiotics for at least 2 midnights stay. Quality Stroke Does the patient have a stroke diagnosis?: No VTE Prior VTE?: No VTE Risk Level:: Medical - moderate - high VTE Device Contraindication: Treatment Not Indicated VTE Drug Contraindication: N/A - Med Ordered
[2024-06-17] MEDS: Lactated Ringers 1,000 ML 999 ML IV (00:59)
--- NOTE | 2024-06-17 01:10 | PC.NURSE ---
per MD Davon PONCE to give ceftriaxone IV.pharmacy notified.
[2024-06-17] MEDS: cefTRIAXone sodium 1 GM VIAL IVPUSH ×2 (01:14→20:52)
--- NOTE | 2024-06-17 01:18 | PC.NURSE ---
Pt tells me she takes no medications at home. Per med rec, patient has not had prescription medications filled since January.
--- NOTE | 2024-06-17 01:35 | MHC.EDTECH ---
This pct assumed care of Patient at 2300 ,vitals taken ,Patient Belongings list done ,Patient awake ,alert and Oriented ,fluids offer ,and was given ,no apparent distress noted ,all safety measure in Place ,Plan of care continue .
--- NOTE | 2024-06-17 01:45 | MHC.EDTECH ---
Patient was ambulated with an asst of 1 to bathroom ,Pt void and back in bed .
[2024-06-17 05:34] LABS: Anion Gap 12 (12-20); Blood Urea Nitrogen 19 mg/dL (9-16); Calcium 8.4 mg/dL (8.4-10.2); Carbon Dioxide 19 mmol/L (22-29); Chloride 113 mmol/L (96-108); Creatinine Clr Calc Pharmacy 59.6; Estimated Glomerular Filt Rate > 60; Glucose Random 85 mg/dL (60-115); Potassium 4.4 mmol/L (3.3-5.1); Sodium 140 mmol/L (135-145)
[2024-06-17 06:15] LABS: Basophils Percent Auto 0.5 % (0-2); Eosinophils Absolute Auto 0.1 X10*3/uL (0.0-0.4); Eosinophils Percent Auto 1.5 % (0-4); Hematocrit 36.9 % (37.0-47.0); Hemoglobin 11.6 g/dl (12.0-16.0); Imm Gran Abs Auto 0.02 X10*3/uL (0.00-0.03); Imm Gran Pct Auto 0.2 % (0.0-0.4); Lymphocytes Absolute Auto 1.8 X10*3/uL (1.2-4.9); Lymphocytes Percent Auto 21.2 % (20-40); Mean Corpuscular HGB Conc 31.4 g/dl (31.0-35.0); Mean Corpuscular Hemoglobin 28.5 pg (27.0-33.0); Mean Corpuscular Volume 90.7 fL (80.0-98.0); Mean Platelet Volume 9.9 fL (9.4-12.3); Monocytes Absolute Auto 0.6 X10*3/uL (0.1-1.2); Monocytes Percent Auto 7.5 % (2-11); Neutrophils Absolute Auto 5.8 x10*3/uL (2.0-8.3); Neutrophils Percent Auto 69.1 % (45-73); Platelet Count 191 X10*3/uL (160-400); Red Blood Count 4.07 X10*6/uL (4.20-5.50); Red Cell Distribution Width 15.4 % (11.0-16.0); White Blood Count 8.4 X10*3/uL (4.8-10.8)
[2024-06-17 06:19] LABS: MANUAL DIFF FLAG NO
[2024-06-17 07:39] LABS: Glucose, Whole Blood 88 mg/dL (60-115)
--- NOTE | 2024-06-17 08:45 | PHA.MEDREC ---
Pharmacy Consult ? Medication Reconciliation Pharmacy has completed the medication reconciliation.Med rec complete, used list provided from [facility]
[2024-06-17] MEDS: Enoxaparin Sodium 40 MG/0.4 ML SYRINGE SUBCUT (09:01)
[2024-06-17] MEDS: 0.9 % Sodium Chloride Flush 3 ML SYRINGE IVFLUSH ×3 (09:01→20:52)
--- NOTE | 2024-06-17 09:31 | PM.EVENT ---
Event Note Date of Service: 06/17/24 Event Note: Seen and evaluated this morning More alert and interactive hematuria resolved, hold ASA and Plavix Continue IV antibiotics Pending urine culture Urology consult for eval of infected stent ? continue home medications Time Spent With Patient Time: Total time managing care of this patient today ____ minutes.
[2024-06-17] MEDS: Metoprolol Succinate ER 50 MG TAB.ER.24H PO (09:52)
[2024-06-17] MEDS: Levothyroxine Sodium 100 MCG TABLET PO (09:52)
--- NOTE | 2024-06-17 15:51 | MHC.CM.PN ---
pt [facility] she will return when dcd
[2024-06-17 16:23] LABS: Glucose, Whole Blood 112 mg/dL (60-115)
[2024-06-17] MEDS: amLODIPine Besylate 5 MG TABLET PO (16:28)
[2024-06-17] MEDS: Morphine Sulfate 2 MG/ML CARTRIDGE IVPUSH ×2 (16:28→20:53)
[2024-06-17] MEDS: hydrALAZINE HCl 20 MG/ML VIAL 5 MG IVPUSH (17:45)
[2024-06-17] MEDS: hydrALAZINE HCl 25 MG TABLET PO ×2 (17:45→20:54)
[2024-06-17] MEDS: Ketorolac Tromethamine 15 MG/ML VIAL IVPUSH (17:46)
--- NOTE | 2024-06-17 17:50 | P.CNUR_ITS ---
History of Present Illness Consult details Consult date: 06/17/24 Narrative: [place] 78 y/o [place] [facility] [place] stones, s/p left ureteroscopy laser lithotripsy stent on 04/22/24. CTAP, smalll bilateral renal stones, stent in good position kidney functioning normally. Review of Systems 2 Review of Systems: Yes all other systems are reviewed and are negative [facility] Past Medical History Medical History (Updated 06/17/24 @ 17:53 by Cy Hutchison MD) Bilateral kidney stones Annual physical exam HTN (hypertension) IDDM (insulin dependent diabetes mellitus) Diverticulitis Nephrolithiasis Cataract Hyperlipidemia Pacemaker Myocardial infarct Macular degeneration Nephrolithiasis Dementia Frequent UTI HTN (hypertension) Hypothyroid Diabetes Family History Family History Father Heart attack Mother Heart problem Heart attack Substance use disorder Surgical History Surgical History Status post lumbar spine surgery for decompression of spinal cord H/O left knee surgery Social History Social History Household Members: Other Household Members Other:: Sandra Pena Indep Living Housing: Assisted Living Facility Housing Other:: [facility]i Pena Do you presently have visiting nurse or other home services: No Alcohol intake: never Comment: pt will get oob without assistance. Patient Tobacco Use Status: Current someday Tobacco user Tobacco use type: Cigarette Cigarettes Per Day: 1 Years Smoked: 54 e-Cigarette/Vaping Use: Never Used Second Hand Smoke Exposure: Yes Advance Directives Date on File: 11/05/20 service: No Current occupational status: retired Cognitive needs: No Hearing needs: No Vision needs: Yes Meds Allergies Allergy/AdvReac Type Severity Reaction Status Date / Time atorvastatin Allergy Unknown pt does Verified 06/16/24 22:54 not know azithromycin Allergy Unknown pt does Verified 06/16/24 22:54 not know ceftriaxone Allergy Unknown pt does Verified 06/16/24 22:54 not know citalopram Allergy Unknown pt does Verified 06/16/24 22:54 not know metformin Allergy Unknown pt does Verified 06/16/24 22:54 not know Active Medications: Current Medications Acetaminophen (Acetaminophen 325 Mg Tablet) 650 mg PO Q6H PRN PRN Reason: Pain, Mild 1-3,fever,headache Al Hydroxide/Mg Hydroxide (Magnesium Hydrox/Alum Hydrox 30 Ml Oral.Susp) 30 ml PO Q4H PRN PRN Reason: GI UPSET Allopurinol (Allopurinol 100 Mg Tablet) 100 mg PO DAILY [facility] Amlodipine Besylate (Amlodipine Besylate 10 Mg Tablet) 10 mg PO DAILY [facility]; Protocol Calcium Carbonate (Calcium Carbonate 750 Mg Tab.Chew) 750 mg PO Q4H PRN PRN Reason: Heartburn Ceftriaxone Sodium (Ceftriaxone Sodium 1 Gm Vial) 1 gm IVPUSH BEDTIME [facility] Last Admin: 06/17/24 01:14 Dose: 1 gm Cyanocobalamin (Cyanocobalamin (Vitamin B-12) 1,000 Mcg Tablet) 1,000 mcg PO DAILY [facility] Enoxaparin Sodium (Enoxaparin Sodium 40 Mg/0.4 Ml Syringe) 40 mg SUBCUT Q24H [facility] Last Admin: 06/17/24 09:01 Dose: 40 mg Famotidine (Famotidine 20 Mg Tablet) 40 mg PO DAILY [facility] Gabapentin (Gabapentin 100 Mg Capsule) 100 mg PO BID [facility] Hydralazine HCl (Hydralazine Hcl 25 Mg Tablet) 25 mg PO TID [facility]; Protocol Levothyroxine Sodium (Levothyroxine Sodium 100 Mcg Tablet) 100 mcg PO DAILY [facility] Last Admin: 06/17/24 09:52 Dose: 100 mcg Lisinopril (Lisinopril 40 Mg Tablet) 40 mg PO DAILY [facility]; Protocol Loperamide HCl (Loperamide Hcl 2 Mg Capsule) 2 mg PO Q4H PRN PRN Reason: LOOSE STOOLS Magnesium Hydroxide (Milk Of Magnesia 30 Ml Oral.Susp) 30 ml PO DAILY PRN PRN Reason: Constipation Magnesium Hydroxide (Milk Of Magnesia 30 Ml Oral.Susp) 30 ml PO DAILY PRN PRN Reason: Constipation Melatonin (Melatonin 3 Mg Tablet) 6 mg PO BEDTIME PRN PRN Reason: Insomnia Metoprolol Succinate (Metoprolol Succinate Er 50 Mg Tab.Er.24h) 50 mg PO DAILY [facility]; Protocol Last Admin: 06/17/24 09:52 Dose: 50 mg Morphine Sulfate (Morphine Sulfate 2 Mg/Ml Cartridge) 2 mg IVPUSH Q4H PRN; Protocol PRN Reason: Pain, Severe (Pain Scale 7-10) Last Admin: 06/17/24 16:28 Dose: 2 mg Multivitamins/Vitamin C (Multivitamin Tablet) 1 tab PO BID [facility] Ondansetron HCl (Ondansetron Hcl 4 Mg/2 Ml Vial) 4 mg IVPUSH Q8H PRN PRN Reason: Nausea and Vomiting Polyethylene Glycol (Polyethylene Glycol 3350 17 Gm Powd.Pack) 17 gm PO BID PRN PRN Reason: constipation Senna/Docusate Sodium (Sennosides/Docusate Sodium Tablet) 2 tab PO BID [facility] Sodium Chloride (0.9 % Sodium Chloride Flush 3 Ml Syringe) 3 ml IVFLUSH QSHIFT [facility] Last Admin: 06/17/24 16:09 Dose: 3 ml Vitamin D (Cholecalciferol (Vitamin D3) 25 Mcg Tablet) 125 mcg PO DAILY [facility] Home Medications ?Medication ?Instructions ?Recorded ?Confirmed ?Last Taken ?Type lisinopril 40 mg tablet 40 mg PO DAILY 11/04/20 06/17/24 11/03/20 History rosuvastatin 20 mg tablet 20 mg PO BEDTIME 12/14/21 06/17/24 Unknown History acetaminophen 325 mg tablet 650 mg PO Q4H PRN Pain 04/16/24 06/17/24 Unknown History aluminum-mag hydroxide-simethicone 30 ml PO Q4H PRN GI UPSET 04/16/24 06/17/24 Unknown History 200 mg-200 mg-20 mg/5 mL oral susp (Mintox) glycerin (adult) 1 supp [place] DAILY PRN Constipation 04/16/24 06/17/24 Unknown History loperamide 2 mg capsule 2 mg PO Q4H PRN LOOSE STOOLS 04/16/24 06/17/24 Unknown History magnesium hydroxide 400 mg/5 mL 30 ml PO DAILY PRN Constipation 04/16/24 06/17/24 Unknown History oral suspension (Milk of Magnesia) sennosides 8.6 mg-docusate sodium 2 tab PO BID 04/16/24 06/17/24 Unknown History 50 mg tablet (Stool Softener-Laxative) vitamins A,C,Z-yatp-rhedha 2,148 1 tab PO BID 04/16/24 06/17/24 Unknown History mcg-113 mg-45 mg-17.4 mg tablet (PreserVision AREDS) levothyroxine 100 mcg tablet 100 mcg PO DAILY 06/03/24 06/17/24 Unknown History aspirin 81 mg tablet,delayed 81 mg PO DAILY 06/17/24 06/17/24 Unknown History release Physical Exam 2 Vital Signs: Vital Signs: Last Vital Signs Temp 96.4 F L 06/17/24 16:00 Pulse 59 06/17/24 16:00 Resp 16 06/17/24 16:00 BP 180/76 H 06/17/24 16:00 Pulse Ox 95 06/17/24 16:00 O2 Del Method Room Air 06/17/24 16:00 BMI result Body Mass Index 30.1 Results Labs 06/17/24 06:11 06/17/24 04:18 Labs: Abnormal lab results 06/16/24 06/16/24 06/17/24 Range/Units 20:20 21:33 04:18 RBC (4.20-5.50) X10*6/uL Hgb (12.0-16.0) g/dl Hct (37.0-47.0) % MPV 9.1 L (9.4-12.3) fL Chloride 110 H 113 H (96-108) mmol/L Carbon Dioxide 19 L (22-29) mmol/L BUN 23 H 19 H (9-16) mg/dL Urine Protein 100 (2+) H (Neg-Trace) mg/dL Urine Blood Large (3+) H (Negative) Urine Nitrite Positive H (Negative) Ur Leukocyte Esterase Trace H (Negative) Urine RBC >20 H (0-2) /HPF Urine WBC >50 H (0-5) /HPF 06/17/24 Range/Units 06:11 RBC 4.07 L (4.20-5.50) X10*6/uL Hgb 11.6 L (12.0-16.0) g/dl Hct 36.9 L (37.0-47.0) % MPV (9.4-12.3) fL Chloride (96-108) mmol/L Carbon Dioxide (22-29) mmol/L BUN (9-16) mg/dL Urine Protein (Neg-Trace) mg/dL Urine Blood (Negative) Urine Nitrite (Negative) Ur Leukocyte Esterase (Negative) Urine RBC (0-2) /HPF Urine WBC (0-5) /HPF Short CBC 06/16/24 06/17/24 Range/Units 20:20 06:11 WBC 8.0 8.4 (4.8-10.8) X10*3/uL Hgb 12.2 11.6 L (12.0-16.0) g/dl Hct 38.7 36.9 L (37.0-47.0) % Plt Count 228 191 (160-400) X10*3/uL BMP 06/16/24 06/17/24 20:20 04:18 Sodium 145 140 Potassium 4.2 4.4 Chloride 110 H 113 H Carbon Dioxide 25 19 L BUN 23 H 19 H Creatinine 0.79 0.74 Calcium 9.4 D 8.4 D Liver Function 06/16/24 Range/Units 20:20 Total Bilirubin 0.2 (0.0-1.0) mg/dL AST 23 (5-31) U/L ALT 9 (0-31) U/L Alkaline Phosphatase 100 (39-117) U/L Albumin 3.6 (3.5-5.0) g/dL Urine 06/16/24 Range/Units 21:33 Urine Color BROWN Urine Appearance Hazy Urine pH 6.5 (5.0-9.0) Ur Specific [place] 1.010 (1.005-1.025) Urine Protein 100 (2+) H (Neg-Trace) mg/dL Urine Glucose (UA) Negative (Negative) mg/dL Imaging Abdomen CT scan report/results: report reviewed CT scan - pelvis: report reviewed Assessment and Plan (1) Urinary tract infection: Status: Acute (2) Ureteral stent present: Status: Acute (3) Bilateral kidney stones: Status: Acute Plan Discharge on PO Abx when stable Pt has fu on 06/27/24 but wll try to move appointment sooner for in office stent removal. Procedures Date of Service Date of Service: 06/17/24
[2024-06-17 20:42] LABS: Glucose, Whole Blood 130 mg/dL (60-115)
[2024-06-17] MEDS: Sennosides/Docusate Sodium TABLET 2 TAB PO (20:53)
[2024-06-17] MEDS: Multivitamin TABLET 1 TAB PO (20:54)
[2024-06-17] MEDS: Gabapentin 100 MG CAPSULE PO (20:54)
[2024-06-18 06:08] LABS: MANUAL DIFF FLAG NO
[2024-06-18 06:11] LABS: Basophils Absolute Auto 0.1 X10*3/uL (0.0-0.2); Basophils Percent Auto 1.3 % (0-2); Eosinophils Absolute Auto 0.2 X10*3/uL (0.0-0.4); Eosinophils Percent Auto 2.1 % (0-4); Hematocrit 37.3 % (37.0-47.0); Hemoglobin 11.9 g/dl (12.0-16.0); Imm Gran Abs Auto 0.02 X10*3/uL (0.00-0.03); Imm Gran Pct Auto 0.3 % (0.0-0.4); Lymphocytes Absolute Auto 1.8 X10*3/uL (1.2-4.9); Lymphocytes Percent Auto 25.2 % (20-40); Mean Corpuscular HGB Conc 31.9 g/dl (31.0-35.0); Mean Corpuscular Hemoglobin 28.1 pg (27.0-33.0); Mean Corpuscular Volume 88.2 fL (80.0-98.0); Mean Platelet Volume 9.4 fL (9.4-12.3); Monocytes Absolute Auto 0.5 X10*3/uL (0.1-1.2); Neutrophils Absolute Auto 4.5 x10*3/uL (2.0-8.3); Neutrophils Percent Auto 64.1 % (45-73); Platelet Count 206 X10*3/uL (160-400); Red Blood Count 4.23 X10*6/uL (4.20-5.50); Red Cell Distribution Width 15.4 % (11.0-16.0)
[2024-06-18 06:26] LABS: Anion Gap 12 (12-20); Blood Urea Nitrogen 15 mg/dL (9-16); Calcium 8.6 mg/dL (8.4-10.2); Carbon Dioxide 22 mmol/L (22-29); Chloride 113 mmol/L (96-108); Creatinine Clr Calc Pharmacy 65.8; Estimated Glomerular Filt Rate > 60; Glucose Random 94 mg/dL (60-115); Potassium 3.8 mmol/L (3.3-5.1); Sodium 143 mmol/L (135-145)
[2024-06-18 07:37] VITALS: BP 153/69; PULSE 60; RESP 16; TEMP 36.1; O2SAT 98
[2024-06-18 07:39] LABS: Glucose, Whole Blood 95 mg/dL (60-115)
[2024-06-18] MEDS: Cholecalciferol (Vitamin D3) 25 MCG TABLET 125 MCG PO (07:58)
[2024-06-18] MEDS: Gabapentin 100 MG CAPSULE PO ×2 (07:59→19:54)
[2024-06-18] MEDS: hydrALAZINE HCl 25 MG TABLET PO ×3 (07:59→19:54)
[2024-06-18] MEDS: Cyanocobalamin (Vitamin B-12) 1,000 MCG TABLET 1000 MCG PO (07:59)
[2024-06-18] MEDS: amLODIPine Besylate 10 MG TABLET PO (07:59)
[2024-06-18] MEDS: Famotidine 20 MG TABLET 40 MG PO (07:59)
[2024-06-18] MEDS: Sennosides/Docusate Sodium TABLET 2 TAB PO ×2 (07:59→19:54)
[2024-06-18] MEDS: Levothyroxine Sodium 100 MCG TABLET PO (08:00)
[2024-06-18] MEDS: lisinopriL 40 MG TABLET PO (08:00)
[2024-06-18] MEDS: Multivitamin TABLET 1 TAB PO ×2 (08:00→19:54)
[2024-06-18] MEDS: allopurinoL 100 MG TABLET PO (08:00)
[2024-06-18] MEDS: Metoprolol Succinate ER 50 MG TAB.ER.24H PO (08:00)
[2024-06-18] MEDS: Enoxaparin Sodium 40 MG/0.4 ML SYRINGE SUBCUT (08:02)
[2024-06-18] MEDS: 0.9 % Sodium Chloride Flush 3 ML SYRINGE IVFLUSH ×3 (08:02→19:58)
[2024-06-18 08:07] VITALS: RESP 18
[2024-06-18] MEDS: Morphine Sulfate 2 MG/ML CARTRIDGE IVPUSH ×2 (08:07→15:32)
--- NOTE | 2024-06-18 10:35 | HO.PM.IMPN ---
Subjective Subjective Date of Service: 06/18/24 Interval History: still with left flank pain Physical Exam Vital Signs: Vital Signs: Last Vital Signs Temp 97.0 F 06/18/24 07:37 Pulse 60 06/18/24 07:37 Resp 18 06/18/24 08:07 BP 153/69 H 06/18/24 07:37 Pulse Ox 98 06/18/24 07:37 O2 Del Method Room Air 06/18/24 07:37 BMI result Body Mass Index 30.1 General: AO X 3, no acute distress Resp: CTA bilateral, no accessory muscles used CVS: S1,S2,RRR GI: soft, non tender, non distended Neuro: motor grossly intact, alert Psych: appropriate affect, appropriate insight Objective Data Active Medications Acetaminophen (Acetaminophen 325 Mg Tablet) 650 mg PO Q6H PRN PRN Reason: Pain, Mild 1-3,fever,headache Al Hydroxide/Mg Hydroxide (Magnesium Hydrox/Alum Hydrox 30 Ml Oral.Susp) 30 ml PO Q4H PRN PRN Reason: GI UPSET Allopurinol (Allopurinol 100 Mg Tablet) 100 mg PO DAILY [facility] Last Admin: 06/18/24 08:00 Dose: 100 mg Documented By: CARLOS Amlodipine Besylate (Amlodipine Besylate 10 Mg Tablet) 10 mg PO DAILY [facility]; Protocol Last Admin: 06/18/24 07:59 Dose: 10 mg Documented By: CARLOS Calcium Carbonate (Calcium Carbonate 750 Mg Tab.Chew) 750 mg PO Q4H PRN PRN Reason: Heartburn Ceftriaxone Sodium (Ceftriaxone Sodium 1 Gm Vial) 1 gm IVPUSH BEDTIME [facility] Last Admin: 06/17/24 20:52 Dose: 1 gm Documented By: KIMMIE Cyanocobalamin (Cyanocobalamin (Vitamin B-12) 1,000 Mcg Tablet) 1,000 mcg PO DAILY [facility] Last Admin: 06/18/24 07:59 Dose: 1,000 mcg Documented By: CARLOS Enoxaparin Sodium (Enoxaparin Sodium 40 Mg/0.4 Ml Syringe) 40 mg SUBCUT Q24H [facility] Last Admin: 06/18/24 08:02 Dose: 40 mg Documented By: CARLOS Famotidine (Famotidine 20 Mg Tablet) 40 mg PO DAILY [facility] Last Admin: 06/18/24 07:59 Dose: 40 mg Documented By: CARLOS Gabapentin (Gabapentin 100 Mg Capsule) 100 mg PO BID [facility] Last Admin: 06/18/24 07:59 Dose: 100 mg Documented By: CARLOS Hydralazine HCl (Hydralazine Hcl 25 Mg Tablet) 25 mg PO TID [facility]; Protocol Last Admin: 06/18/24 07:59 Dose: 25 mg Documented By: CARLOS Levothyroxine Sodium (Levothyroxine Sodium 100 Mcg Tablet) 100 mcg PO DAILY [facility] Last Admin: 06/18/24 08:00 Dose: 100 mcg Documented By: CARLOS Lisinopril (Lisinopril 40 Mg Tablet) 40 mg PO DAILY [facility]; Protocol Last Admin: 06/18/24 08:00 Dose: 40 mg Documented By: CARLOS Loperamide HCl (Loperamide Hcl 2 Mg Capsule) 2 mg PO Q4H PRN PRN Reason: LOOSE STOOLS Magnesium Hydroxide (Milk Of Magnesia 30 Ml Oral.Susp) 30 ml PO DAILY PRN PRN Reason: Constipation Magnesium Hydroxide (Milk Of Magnesia 30 Ml Oral.Susp) 30 ml PO DAILY PRN PRN Reason: Constipation Melatonin (Melatonin 3 Mg Tablet) 6 mg PO BEDTIME PRN PRN Reason: Insomnia Metoprolol Succinate (Metoprolol Succinate Er 50 Mg Tab.Er.24h) 50 mg PO DAILY [facility]; Protocol Last Admin: 06/18/24 08:00 Dose: 50 mg Documented By: CARLOS Morphine Sulfate (Morphine Sulfate 2 Mg/Ml Cartridge) 2 mg IVPUSH Q4H PRN; Protocol PRN Reason: Pain, Severe (Pain Scale 7-10) Last Admin: 06/18/24 08:07 Dose: 2 mg Documented By: CARLOS Multivitamins/Vitamin C (Multivitamin Tablet) 1 tab PO BID [facility] Last Admin: 06/18/24 08:00 Dose: 1 tab Documented By: CARLOS Ondansetron HCl (Ondansetron Hcl 4 Mg/2 Ml Vial) 4 mg IVPUSH Q8H PRN PRN Reason: Nausea and Vomiting Polyethylene Glycol (Polyethylene Glycol 3350 17 Gm Powd.Pack) 17 gm PO BID PRN PRN Reason: constipation Senna/Docusate Sodium (Sennosides/Docusate Sodium Tablet) 2 tab PO BID [facility] Last Admin: 06/18/24 07:59 Dose: 2 tab Documented By: CARLOS Sodium Chloride (0.9 % Sodium Chloride Flush 3 Ml Syringe) 3 ml IVFLUSH QSHIFT [facility] Last Admin: 06/18/24 08:02 Dose: 3 ml Documented By: CARLOS Vitamin D (Cholecalciferol (Vitamin D3) 25 Mcg Tablet) 125 mcg PO DAILY [facility] Last Admin: 06/18/24 07:58 Dose: 125 mcg Documented By: CARLOS Labs 06/18/24 05:22 06/18/24 05:22 Labs: Laboratory Results - last 24 hr 06/17/24 06/17/24 06/18/24 16:15 20:30 05:22 MCV 88.2 MCH 28.1 MCHC 31.9 RDW 15.4 Plt Count 206 MPV 9.4 Immature Gran % (Auto) 0.3 Neut % (Auto) 64.1 Lymph % (Auto) 25.2 [place] % (Auto) 7.0 Eos % (Auto) 2.1 Baso % (Auto) 1.3 Lymph # (Auto) 1.8 [place] # (Auto) 0.5 Eos # (Auto) 0.2 Baso # (Auto) 0.1 Abs Immat Gran (auto) 0.02 Absolute Neuts (auto) 4.5 Absolute Nucleated RBC 0.000 Nucleated RBC % (auto) 0.0 Anion Gap 12 Estim Creat Clear Calc 65.8 Estimated GFR > 60 POC Glucose 112 130 H Random Glucose 94 Calcium 8.6 06/18/24 07:35 MCV MCH MCHC RDW Plt Count MPV Immature Gran % (Auto) Neut % (Auto) Lymph % (Auto) [place] % (Auto) Eos % (Auto) Baso % (Auto) Lymph # (Auto) [place] # (Auto) Eos # (Auto) Baso # (Auto) Abs Immat Gran (auto) Absolute Neuts (auto) Absolute Nucleated RBC Nucleated RBC % (auto) Anion Gap Estim Creat Clear Calc Estimated GFR POC Glucose 95 Random Glucose Calcium Microbiology Microbiology Results: Microbiology 06/16/24 23:02 Blood Culture - Preliminary Blood - Venous No growth after 24 hours. 06/16/24 23:02 Blood Culture - Preliminary Blood - Venous No growth after 24 hours. 06/16/24 21:48 Urine Culture - Preliminary Urine clean catch - Clean Catch Midstream Culture in progress. Assessment and Plan (1) HTN (hypertension): Status: Acute Plan 78F PMH unspecified dementia, DM (not on meds), hypertension, kidney stones, gout, hypothyroid, presented with flank pain and hematuria and ams Acute metabolic encephalopathy due to urinary tract infection due to ureteral stent Continue ceftriaxone, follow-up cultures, Urology appreciated current plan is for outpatient stent History of type 2 diabetes 2022 A1c 5.9, no longer on meds Unspecified dementia Stable Hypertension Continue lisinopril, metoprolol, amlodipine, hydralazine Gout Continue allopurinol Hypothyroid Continue levothyroxine DVT prophylaxis-Lovenox Full Code reason for continued hospitalization: Awaiting urine culture Quality Stroke Does the patient have a stroke diagnosis?: No VTE Prior VTE?: No VTE Risk Level:: Medical - moderate - high VTE Device Contraindication: Treatment Not Indicated VTE Drug Contraindication: N/A - Med Ordered
[2024-06-18 11:09] LABS: Glucose, Whole Blood 127 mg/dL (60-115)
[2024-06-18 15:25] VITALS: BP 138/60; PULSE 60; RESP 18; TEMP 36.4; O2SAT 95
--- NOTE | 2024-06-18 15:28 | HE.COMHEA ---
per rounds waiting on a urine cultuire dc plan remains return to [facility]
[2024-06-18 15:32] VITALS: RESP 16
[2024-06-18 16:32] LABS: Glucose, Whole Blood 155 mg/dL (60-115)
[2024-06-18 19:27] LABS: Glucose, Whole Blood 158 mg/dL (60-115)
[2024-06-18] MEDS: cefTRIAXone sodium 1 GM VIAL IVPUSH (19:53)
[2024-06-18 23:24] VITALS: BP 164/71; PULSE 60; RESP 16; TEMP 36; O2SAT 96
[2024-06-19 06:03] LABS: Hematocrit 38.9 % (37.0-47.0); Mean Corpuscular HGB Conc 30.8 g/dl (31.0-35.0); Mean Corpuscular Volume 90.7 fL (80.0-98.0); Mean Platelet Volume 9.9 fL (9.4-12.3); Platelet Count 198 X10*3/uL (160-400); Red Blood Count 4.29 X10*6/uL (4.20-5.50); Red Cell Distribution Width 15.3 % (11.0-16.0); White Blood Count 7.5 X10*3/uL (4.8-10.8)
[2024-06-19 06:17] LABS: Anion Gap 11 (12-20); Blood Urea Nitrogen 13 mg/dL (9-16); Carbon Dioxide 23 mmol/L (22-29); Chloride 113 mmol/L (96-108); Creatinine Clr Calc Pharmacy 65.8; Estimated Glomerular Filt Rate > 60; Glucose Random 105 mg/dL (60-115); Sodium 143 mmol/L (135-145)
[2024-06-19 07:26] LABS: Glucose, Whole Blood 112 mg/dL (60-115)
[2024-06-19 07:49] VITALS: BP 129/60; PULSE 60; RESP 16; TEMP 36.7; O2SAT 92
[2024-06-19] MEDS: Enoxaparin Sodium 40 MG/0.4 ML SYRINGE SUBCUT (09:14)
[2024-06-19] MEDS: Multivitamin TABLET 1 TAB PO ×2 (09:16→19:46)
[2024-06-19] MEDS: Cyanocobalamin (Vitamin B-12) 1,000 MCG TABLET 1000 MCG PO (09:16)
[2024-06-19] MEDS: Gabapentin 100 MG CAPSULE PO ×2 (09:16→19:46)
[2024-06-19 09:19] VITALS: BP 142/73
[2024-06-19] MEDS: hydrALAZINE HCl 25 MG TABLET PO ×3 (09:19→19:46)
[2024-06-19] MEDS: lisinopriL 40 MG TABLET PO (09:20)
[2024-06-19] MEDS: Famotidine 20 MG TABLET 40 MG PO (09:20)
[2024-06-19] MEDS: amLODIPine Besylate 10 MG TABLET PO (09:20)
[2024-06-19] MEDS: Sennosides/Docusate Sodium TABLET 2 TAB PO ×2 (09:20→19:46)
[2024-06-19] MEDS: Levothyroxine Sodium 100 MCG TABLET PO (09:20)
[2024-06-19 09:21] VITALS: PULSE 65
[2024-06-19] MEDS: 0.9 % Sodium Chloride Flush 3 ML SYRINGE IVFLUSH ×3 (09:21→19:46)
[2024-06-19] MEDS: Cholecalciferol (Vitamin D3) 25 MCG TABLET 125 MCG PO (09:21)
[2024-06-19] MEDS: Metoprolol Succinate ER 50 MG TAB.ER.24H PO (09:21)
[2024-06-19] MEDS: allopurinoL 100 MG TABLET PO (09:22)
--- NOTE | 2024-06-19 09:35 | P.PNIM_ITS ---
Subjective Subjective Date of Service: 06/19/24 Interval History: still with left flank pain Physical Exam 2 Vital Signs: Vital Signs: Last Vital Signs Temp 98.0 F 06/19/24 07:49 Pulse 65 06/19/24 09:21 Resp 16 06/19/24 07:49 BP 142/73 H 06/19/24 09:19 Pulse Ox 92 06/19/24 07:49 O2 Del Method Room Air 06/19/24 07:49 BMI result Body Mass Index 30.1 General: AO X 3, no acute distress Resp: CTA bilateral, no accessory muscles used CVS: S1,S2,RRR GI: soft, non tender, non distended Neuro: motor grossly intact, alert Psych: appropriate affect, appropriate insight Objective Data Active Medications Acetaminophen (Acetaminophen 325 Mg Tablet) 650 mg PO Q6H PRN PRN Reason: Pain, Mild 1-3,fever,headache Al Hydroxide/Mg Hydroxide (Magnesium Hydrox/Alum Hydrox 30 Ml Oral.Susp) 30 ml PO Q4H PRN PRN Reason: GI UPSET Allopurinol (Allopurinol 100 Mg Tablet) 100 mg PO DAILY [facility] Last Admin: 06/19/24 09:22 Dose: 100 mg Documented By: ORTIZ Amlodipine Besylate (Amlodipine Besylate 10 Mg Tablet) 10 mg PO DAILY [facility]; Protocol Last Admin: 06/19/24 09:20 Dose: 10 mg Documented By: ORTIZ Calcium Carbonate (Calcium Carbonate 750 Mg Tab.Chew) 750 mg PO Q4H PRN PRN Reason: Heartburn Ceftriaxone Sodium (Ceftriaxone Sodium 1 Gm Vial) 1 gm IVPUSH BEDTIME [facility] Last Admin: 06/18/24 19:53 Dose: 1 gm Documented By: CHARLOTTE Cyanocobalamin (Cyanocobalamin (Vitamin B-12) 1,000 Mcg Tablet) 1,000 mcg PO DAILY [facility] Last Admin: 06/19/24 09:16 Dose: 1,000 mcg Documented By: ORTIZ Enoxaparin Sodium (Enoxaparin Sodium 40 Mg/0.4 Ml Syringe) 40 mg SUBCUT Q24H [facility] Last Admin: 06/19/24 09:14 Dose: 40 mg Documented By: ORTIZ Famotidine (Famotidine 20 Mg Tablet) 40 mg PO DAILY [facility] Last Admin: 06/19/24 09:20 Dose: 40 mg Documented By: ORTIZ Gabapentin (Gabapentin 100 Mg Capsule) 100 mg PO BID [facility] Last Admin: 06/19/24 09:16 Dose: 100 mg Documented By: ORTIZ Hydralazine HCl (Hydralazine Hcl 25 Mg Tablet) 25 mg PO TID [facility]; Protocol Last Admin: 06/19/24 09:19 Dose: 25 mg Documented By: ORTIZ Levothyroxine Sodium (Levothyroxine Sodium 100 Mcg Tablet) 100 mcg PO DAILY [facility] Last Admin: 06/19/24 09:20 Dose: 100 mcg Documented By: ORTIZ Lisinopril (Lisinopril 40 Mg Tablet) 40 mg PO DAILY [facility]; Protocol Last Admin: 06/19/24 09:20 Dose: 40 mg Documented By: ORTIZ Loperamide HCl (Loperamide Hcl 2 Mg Capsule) 2 mg PO Q4H PRN PRN Reason: LOOSE STOOLS Magnesium Hydroxide (Milk Of Magnesia 30 Ml Oral.Susp) 30 ml PO DAILY PRN PRN Reason: Constipation Magnesium Hydroxide (Milk Of Magnesia 30 Ml Oral.Susp) 30 ml PO DAILY PRN PRN Reason: Constipation Melatonin (Melatonin 3 Mg Tablet) 6 mg PO BEDTIME PRN PRN Reason: Insomnia Metoprolol Succinate (Metoprolol Succinate Er 50 Mg Tab.Er.24h) 50 mg PO DAILY [facility]; Protocol Last Admin: 06/19/24 09:21 Dose: 50 mg Documented By: ORTIZ Morphine Sulfate (Morphine Sulfate 2 Mg/Ml Cartridge) 2 mg IVPUSH Q4H PRN; Protocol PRN Reason: Pain, Severe (Pain Scale 7-10) Last Admin: 06/18/24 15:32 Dose: 2 mg Documented By: CARLOS Multivitamins/Vitamin C (Multivitamin Tablet) 1 tab PO BID [facility] Last Admin: 06/19/24 09:16 Dose: 1 tab Documented By: ORTIZ Ondansetron HCl (Ondansetron Hcl 4 Mg/2 Ml Vial) 4 mg IVPUSH Q8H PRN PRN Reason: Nausea and Vomiting Polyethylene Glycol (Polyethylene Glycol 3350 17 Gm Powd.Pack) 17 gm PO BID PRN PRN Reason: constipation Senna/Docusate Sodium (Sennosides/Docusate Sodium Tablet) 2 tab PO BID [facility] Last Admin: 06/19/24 09:20 Dose: 2 tab Documented By: ORTIZ Sodium Chloride (0.9 % Sodium Chloride Flush 3 Ml Syringe) 3 ml IVFLUSH QSHIFT [facility] Last Admin: 06/19/24 09:21 Dose: 3 ml Documented By: ORTIZ Vitamin D (Cholecalciferol (Vitamin D3) 25 Mcg Tablet) 125 mcg PO DAILY [facility] Last Admin: 06/19/24 09:21 Dose: 125 mcg Documented By: ORTIZ Labs 06/19/24 05:26 06/19/24 05:26 Labs: Laboratory Results - last 24 hr 06/18/24 06/18/24 06/18/24 11:01 16:28 19:08 MCV MCH MCHC RDW Plt Count MPV Absolute Nucleated RBC Nucleated RBC % (auto) Anion Gap Estim Creat Clear Calc Estimated GFR POC Glucose 127 H 155 H 158 H Random Glucose Calcium 06/19/24 06/19/24 05:26 07:18 MCV 90.7 MCH 28.0 MCHC 30.8 L RDW 15.3 Plt Count 198 MPV 9.9 Absolute Nucleated RBC 0.000 Nucleated RBC % (auto) 0.0 Anion Gap 11 L Estim Creat Clear Calc 65.8 Estimated GFR > 60 POC Glucose 112 Random Glucose 105 Calcium 9.0 Microbiology Microbiology Results: Microbiology 06/16/24 23:02 Blood Culture - Preliminary Blood - Venous No growth after 48 hours. 06/16/24 23:02 Blood Culture - Preliminary Blood - Venous No growth after 48 hours. 06/16/24 21:48 Urine Culture - Final Urine clean catch - Clean Catch Midstream Strep agalactiae (Grp B) Assessment and Plan (1) HTN (hypertension): Status: Acute Plan 78F PMH unspecified dementia, DM (not on meds), hypertension, kidney stones, gout, hypothyroid, presented with flank pain and hematuria and ams Acute metabolic encephalopathy due to urinary tract infection due to ureteral stent Continue ceftriaxone, urine culture growing group B strep, can do Ceftin on discharge, Urology appreciated due to ongoing left flank pain plan for inpatient stent removal today History of type 2 diabetes 2022 A1c 5.9, no longer on meds Unspecified dementia Stable Hypertension Continue lisinopril, metoprolol, amlodipine, hydralazine Gout Continue allopurinol Hypothyroid Continue levothyroxine DVT prophylaxis-Lovenox Full Code reason for continued hospitalization: Inpatient stent removal due to ongoing flank pain Quality Stroke Does the patient have a stroke diagnosis?: No VTE Prior VTE?: No VTE Risk Level:: Medical - moderate - high VTE Device Contraindication: Treatment Not Indicated VTE Drug Contraindication: N/A - Med Ordered
[2024-06-19 11:11] LABS: Glucose, Whole Blood 303 mg/dL (60-115)
[2024-06-19 15:11] VITALS: BP 147/57; PULSE 60; RESP 18; TEMP 36.6; O2SAT 95
[2024-06-19 16:13] LABS: Glucose, Whole Blood 148 mg/dL (60-115)
[2024-06-19] MEDS: Morphine Sulfate 2 MG/ML CARTRIDGE IVPUSH ×2 (17:43→22:02)
[2024-06-19 19:45] VITALS: BP 185/81; PULSE 62; RESP 18; TEMP 36.6; O2SAT 96
[2024-06-19] MEDS: cefTRIAXone sodium 1 GM VIAL IVPUSH (19:46)
[2024-06-19 20:17] LABS: Glucose, Whole Blood 139 mg/dL (60-115)
[2024-06-19 23:21] VITALS: BP 167/70; PULSE 60; RESP 16; TEMP 36; O2SAT 93
[2024-06-20 07:09] LABS: Glucose, Whole Blood 156 mg/dL (60-115)
[2024-06-20] MEDS: 0.9 % Sodium Chloride Flush 3 ML SYRINGE IVFLUSH (07:23)
[2024-06-20] MEDS: Enoxaparin Sodium 40 MG/0.4 ML SYRINGE SUBCUT (07:26)
[2024-06-20 07:27] VITALS: BP 177/77; PULSE 60
[2024-06-20] MEDS: amLODIPine Besylate 10 MG TABLET PO (07:27)
[2024-06-20] MEDS: Metoprolol Succinate ER 50 MG TAB.ER.24H PO (07:27)
[2024-06-20] MEDS: Sennosides/Docusate Sodium TABLET 2 TAB PO (07:27)
[2024-06-20] MEDS: hydrALAZINE HCl 25 MG TABLET PO (07:28)
[2024-06-20] MEDS: Multivitamin TABLET 1 TAB PO (07:28)
[2024-06-20] MEDS: Levothyroxine Sodium 100 MCG TABLET PO (07:28)
[2024-06-20] MEDS: lisinopriL 40 MG TABLET PO (07:28)
[2024-06-20] MEDS: allopurinoL 100 MG TABLET PO (07:29)
[2024-06-20] MEDS: Cyanocobalamin (Vitamin B-12) 1,000 MCG TABLET 1000 MCG PO (07:29)
[2024-06-20] MEDS: Gabapentin 100 MG CAPSULE PO (07:29)
[2024-06-20] MEDS: Famotidine 20 MG TABLET 40 MG PO (07:29)
[2024-06-20] MEDS: Cholecalciferol (Vitamin D3) 25 MCG TABLET 125 MCG PO (07:29)
[2024-06-20 07:35] VITALS: BP 124/58; PULSE 58; RESP 16; TEMP 36.8; O2SAT 96
[2024-06-20] MEDS: Morphine Sulfate 2 MG/ML CARTRIDGE IVPUSH (07:50)
--- NOTE | 2024-06-20 08:55 | PM.DS ---
DS: Providers Provider Date of Service: 06/20/24 Date of admission: 06/17/24 00:37 Date of discharge: 06/20/24 Primary care physician: Ashley Morales MD Consults: 06/17/24 09:33 Consult to Urology Routine Consulting Provider: [facility] Reason for consultation: infected uretric stent ? for eval and rec. DS: Diagnosis Discharge Diagnosis (1) HTN (hypertension): Status: Acute DS: Summary Hospital Course Hospital Course: from initial hpi: 78-year-old female with a past medical history significant for dementia, diabetes (no meds, diet controlled), kidney stones s/p cystoscopy, left ureteral stent exchange laser lithotripsy with Dr. Ernst on 04/22, who presented to the ED yesterday with abdominal pain starting that morning. She described left lower quadrant and suprapubic pain with possible radiation to the left low back. She is a difficult historian due to her dementia. She denies dysuria, diarrhea, nausea or vomiting. She reports a subjective fever at home and some gross hematuria mostly with streaking rather than gill hematuria. She also describes some urinary retention. hospital course: She was admitted for acute metabolic encephalopathy due to urinary tract infection due to ureteral stent complicated by hematuria. Was treated with ceftriaxone, urine culture grew group B strep. On discharge will continue 5 more days of cefuroxime. Was seen by Urology and had ureteral stent removed. Patient's pain improved and hematuria resolved. Patient has history of type 2 diabetes, last A1c in 2022 was 5.9, did not requiring meds in hospital, as outpatient she was on long-acting only, if hypoglycemia noted would discontinue. For hypertension was continued on lisinopril, metoprolol, amlodipine, hydralazine. For unspecified dementia remained stable. For gout was continued on allopurinol. For hypothyroidism was continued on levothyroxine. Patient is back to her baseline. Time Attestation Discharge Coordination Time (in mins): 32 Quality: Safe Use of Opioids Does Pt have an Active Cancer Diagnosis on the Problem List?: No Quality: Stroke Does the patient have a stroke diagnosis?: No Physical Exam Vital Signs: Vital Signs: Last Vital Signs Temp 98.3 F 06/20/24 07:35 Pulse 58 06/20/24 07:35 Resp 16 06/20/24 07:35 BP 124/58 L 01/17/25 07:35 Pulse Ox 96 06/20/24 07:35 O2 Del Method Room Air 06/20/24 07:35 BMI result Body Mass Index 30.1 General: no acute distress Resp: CTA bilateral, no accessory muscles used CVS: S1,S2,RRR GI: soft, non tender, non distended Neuro: motor grossly intact, alert DS: Data Data Completed and Pending Completed studies during hospitalization [Text1]: Procedures Dilation of Left Ureter with Intraluminal Device, Via Natural or Artificial Opening Endoscopic (04/19/24) Fluoroscopy of Left Kidney, Ureter and Bladder (04/16/24) Fragmentation in Left Kidney Pelvis, Via Natural or Artificial Opening Endoscopic (04/19/24) Removal of Intraluminal Device from Ureter, Via Natural or Artificial Opening Endoscopic (04/19/24) Labs on day of discharge: Laboratory Results - last 24 hr 06/19/24 06/19/24 06/19/24 11:06 15:51 19:42 POC Glucose 303 H 148 H 139 H 06/20/24 07:04 POC Glucose 156 H Preliminary micro results at discharge 06/16/24 23:02 Blood Culture - Preliminary Blood - Venous No growth after 48 hours. 06/16/24 23:02 Blood Culture - Preliminary Blood - Venous No growth after 48 hours. Discharge Plan Discharge Anticipated Discharge Date/Time: 06/20/24 08:53 Patient Disposition: Xfer Other Discharge Diagnosis: uti Referrals: Ashley Morales MD [Primary Care Provider] - 1 Week Discharge Medications: New cefuroxime axetil 500 mg tablet 500 mg PO BID Qty: 10 0RF Continued (DME) blood-glucose meter [OneTouch Ultra2 Meter] [facility] [place] See Rx Instructions .ROUTE .MEDSUPPLY Qty: 100 3RF Rx Instructions: tid pyridoxine (vitamin B6) 100 mg tablet 100 mg PO DAILY 90 Days Qty: 90 3RF (DME) pen needle, diabetic [Comfort EZ Pen [place]] 33 gauge x 5/32 needle See Rx Instructions .Route Qty: 100 3RF Rx Instructions: As directed cyanocobalamin (vitamin B-12) 1,000 mcg tablet 1,000 mcg PO DAILY Qty: 30 8RF (DME) FreeStyle Lite Strips Strip See Rx Instructions .Route Qty: 100 5RF Rx Instructions: test blood sugar 3 times per day famotidine 40 mg tablet 40 mg PO DAILY Qty: 90 3RF cholecalciferol (vitamin D3) 125 mcg (5,000 unit) capsule 125 mcg PO DAILY Qty: 90 3RF donepezil 5 mg tablet 5 mg PO BEDTIME Qty: 90 3RF metoprolol succinate 25 mg tablet extended release 24 hr 50 mg PO DAILY Qty: 90 3RF gabapentin 100 mg capsule 100 mg PO BID Qty: 180 3RF clopidogrel 75 mg tablet 75 mg PO DAILY Qty: 90 3RF allopurinol 100 mg tablet 100 mg PO DAILY 90 Days Qty: 90 1RF polyethylene glycol 3350 [Miralax] 17 gram/dose powder 17 g PO BID PRN (Reason: constipation) Qty: 238 0RF Rx Instructions: If no BM x 3 days nystatin 100,000 unit/gram cream 1 appl topical DAILY 30 Days Qty: 30 1RF lisinopril 40 mg Tablet 40 mg PO DAILY levothyroxine 100 mcg Tablet 100 mcg PO DAILY aspirin 81 mg Tablet,Delayed Release (Dr/Ec) 81 mg PO DAILY acetaminophen 325 mg Tablet 650 mg PO Q4H PRN (Reason: Pain) loperamide 2 mg Capsule 2 mg PO Q4H PRN (Reason: LOOSE STOOLS) Rx Instructions: administer after each loose stool until symptoms controlled; do not exceed 8 mg per 24 hrs sennosides-docusate sodium [Stool Softener-Laxative] 8.6-50 mg tablet 2 tab PO BID magnesium hydroxide [Milk of Magnesia] 400 mg/5 mL Suspension 30 ml PO DAILY PRN (Reason: Constipation) alum-mag hydroxide-simeth [Mintox] 200-200-20 mg/5 mL Suspension 30 ml PO Q4H PRN (Reason: GI UPSET) Rx Instructions: administer between meals and at bedtime glycerin (adult) Suppository 1 supp IN DAILY PRN (Reason: Constipation) PreserVision AREDS 2,148 mcg-113 mg-45 mg-17.4mg tablet 1 tab PO BID Tresiba FlexTouch U-100 100 unit/mL (3 mL) insulin pen 18 unit subcut BEDTIME Qty: 15 4RF rosuvastatin 20 mg tablet 20 mg PO BEDTIME (DME) lancets [OneTouch Delica Lancets] 33 gauge misc See Rx Instructions .ROUTE .MEDSUPPLY Qty: 100 5RF Rx Instructions: TID (DME) blood sugar diagnostic Strip See Rx Instructions .ROUTE .MEDSUPPLY Qty: 100 4RF Rx Instructions: tid amlodipine 5 mg tablet 5 mg PO DAILY Qty: 90 0RF Discharge Orders: Discharge Order (Routine); Ordered 06/20/24 Ordered By: Maury Reyes Diet: Advance to usual diet Activity on Discharge: As tolerated Stand Alone Forms: Patient Portal Discharge page Print Language: Andorran Care Plan Goals: recovery Health Concerns: uti Plan of Treatment: 5 more days ceftin Assessment: see above
[2024-06-20 09:18] VITALS: BP 126/56; PULSE 66; RESP 16; TEMP 36.5; O2SAT 96
--- NOTE | 2024-06-20 09:21 | MHC.CM.PN ---
pt to retun to [facility] today ter aware
--- NOTE | 2024-06-20 09:32 | PC.NURSE ---
cefuroxime bottle given to patient
--- NOTE | 2024-06-20 10:45 | MHC.CM.PN ---
pt leaving at 1 to [facility] aware of dc
[2024-06-20 11:18] LABS: Glucose, Whole Blood 216 mg/dL (60-115)
== END 2024-06-20 13:25 | disposition other institution (70) | DRG 698 ==
LOC: HO.ED 06-17 00:38 → HO.EDOVER 06-17 00:40 → HO.S3 06-17 14:28
PROVIDERS: Physician Assistant Medical; Student in an Organized Health Care Education/Training Program; Admitting Provider Student in an Organized Health Care Education/Training Program; Emergency Provider Emergency Medicine; PCP Internal Medicine; Visit Provider Internal Medicine
DX: T83.593A Infection and inflammatory reaction due to other urinary stents, initial encounter (principal); G93.41 Metabolic encephalopathy; N39.0 Urinary tract infection, site not specified; F17.210 Nicotine dependence, cigarettes, uncomplicated; F03.90 Unspecified dementia, unspecified severity, without behavioral disturbance, psychotic disturbance, mood disturbance, and anxiety; N89.8 Other specified noninflammatory disorders of vagina; E11.9 Type 2 diabetes mellitus without complications; E03.9 Hypothyroidism, unspecified; M10.9 Gout, unspecified; R31.9 Hematuria, unspecified; B95.1 Streptococcus, group B, as the cause of diseases classified elsewhere; Z87.442 Personal history of urinary calculi; Z71.6 Tobacco abuse counseling; Z79.4 Long term (current) use of insulin; Z79.02 Long term (current) use of antithrombotics/antiplatelets; Z79.890 Hormone replacement therapy; Z79.899 Other long term (current) drug therapy
CPT/HCPCS: 36415; 74177; 80048; 80053; 81001; 82947; 83605; 83735; 85025; 85027; 87040; 87086; 87147; 99285; J0360; J0696; J1650; J1885; J1956; J2270; J2405; J7120; Q9967

== ENCOUNTER → 2024-06-16 20:15 | Outpatient (BNV) | payer MEDICARE, MEDICAID, SELFPAY | PROVIDERS: Emergency Provider Emergency Medicine; PCP Internal Medicine; Visit Provider Radiology Diagnostic Radiology | DX: R10.32 Left lower quadrant pain (principal) | CPT/HCPCS: 74177 ==

== ENCOUNTER → 2024-06-17 00:37 | Outpatient (BNV) | payer MEDICARE, MEDICAID, SELFPAY | PROVIDERS: Admitting Provider Student in an Organized Health Care Education/Training Program; Emergency Provider Emergency Medicine; PCP Internal Medicine; Visit Provider Urology | DX: N39.0 Urinary tract infection, site not specified (principal); Z96.0 Presence of urogenital implants; N20.0 Calculus of kidney | CPT/HCPCS: 99222 ==

== ENCOUNTER → 2024-06-17 00:37 | Outpatient (BNV) | payer MEDICARE, MEDICAID, SELFPAY | PROVIDERS: Admitting Provider Student in an Organized Health Care Education/Training Program; Emergency Provider Emergency Medicine; PCP Internal Medicine; Visit Provider Physician Assistant | DX: G93.41 Metabolic encephalopathy (principal); N39.0 Urinary tract infection, site not specified; Z96.0 Presence of urogenital implants | CPT/HCPCS: 99223; 99232; 99239; 99499 ==

== ENCOUNTER → 2024-06-27 15:41 | Outpatient (BNVA) | payer MEDICARE, MEDICAID, SELFPAY | PROVIDERS: PCP Internal Medicine; Visit Provider Urology | DX: N20.0 Calculus of kidney (principal) | CPT/HCPCS: 99212 ==

== ENCOUNTER 2024-07-01 21:39 | Emergency (ER) | payer MEDICARE, MEDICAID, SELFPAY ==
--- NOTE | ~2024-07-01 | XR_ITS ---
CLINICAL HISTORY: Cough 1 view chest x-ray Comparison: CT - CT ANGIO CHEST PE PROTOCOL - 11/04/20 16:28 EDT Findings: Unchanged left chest wall dual lead cardiac pacing device. No consolidation or effusion. Heart size is normal. No acute fracture. IMPRESSION: 1. No acute findings. This document has been electronically signed by: Shawn Pyle MD on 07/01/2024 23:28:26
--- NOTE | ~2024-07-01 | XR_ITS ---
CLINICAL HISTORY: low back pain tenderness 3 views lumbar spine Comparison: CT/SR - CT ABDOMEN PELVIS W IV CON - 06/16/24 20:56 EST Findings: Suggestion of possible L4 compression fracture. Vertebral body heights otherwise maintained. Diffuse osteopenia which limits sensitivity of radiographs. No listhesis. Severe degenerative changes. IMPRESSION: Possible mild L4 compression fracture. Consider CT of the lumbar spine for further evaluation. This document has been electronically signed by: Shawn Pyle MD on 07/02/2024 01:20:44
[2024-07-01 21:48] VITALS: BP 156/106; BP 185/65; PULSE 66; PULSE 67; RESP 16; TEMP 37; O2SAT 96; BMI 25.9
[2024-07-01 22:25] LABS: MANUAL DIFF FLAG NO
[2024-07-01 22:28] LABS: Appearance Urine Cloudy; Color Urine Yellow; Glucose Urine UA Negative (Negative); Leukocyte Esterase Urine Small (1+) (Negative); Nitrite Urine Negative (Negative); Specific Gravity - Urine 1.015 (1.005-1.025); UMIC TRIGGER UACC YES; Urine Blood Large (3+) (Negative); Urine Ketones Negative (Negative); Urine Protein 30 (1+) mg/dL (Neg-Trace)
[2024-07-01 22:29] LABS: Basophils Absolute Auto 0.1 X10*3/uL (0.0-0.2); Basophils Percent Auto 0.9 % (0-2); Eosinophils Absolute Auto 0.1 X10*3/uL (0.0-0.4); Eosinophils Percent Auto 1.8 % (0-4); Hematocrit 37.6 % (37.0-47.0); Hemoglobin 11.6 g/dl (12.0-16.0); Imm Gran Abs Auto 0.03 X10*3/uL (0.00-0.03); Imm Gran Pct Auto 0.4 % (0.0-0.4); Lymphocytes Absolute Auto 1.4 X10*3/uL (1.2-4.9); Lymphocytes Percent Auto 17.7 % (20-40); Mean Corpuscular HGB Conc 30.9 g/dl (31.0-35.0); Mean Corpuscular Hemoglobin 27.8 pg (27.0-33.0); Mean Corpuscular Volume 90.2 fL (80.0-98.0); Mean Platelet Volume 9.6 fL (9.4-12.3); Monocytes Absolute Auto 0.7 X10*3/uL (0.1-1.2); Monocytes Percent Auto 8.3 % (2-11); Neutrophils Absolute Auto 5.6 x10*3/uL (2.0-8.3); Neutrophils Percent Auto 70.9 % (45-73); Platelet Count 234 X10*3/uL (160-400); Red Blood Count 4.17 X10*6/uL (4.20-5.50); Red Cell Distribution Width 15.9 % (11.0-16.0); White Blood Count 7.9 X10*3/uL (4.8-10.8)
--- OUTSIDE RECORDS SUMMARY | 2024-07-01 22:41 | XMS_ITS | Clinical Summary ---
Author Organization [address] [facility] Address [address] [place] [address] Phone Care Team Providers Care Assistant Service Manager Name Role Phone Ashley Morales MD Primary Care Provider [phone] Encounters Date Type Department Care Team Description 06/13/2024 Lab Requisition [facility] Lab [address] [place] [address] Ashley Morales MD Urinary tract infection, site not specified; Hematuria, unspecified 04/14/2024 Lab Requisition [facility] Lab [address] [place] [address] Ashley Morales MD Hematuria, unspecified from Last 3 Months Social History Tobacco Use Types Packs/Day Years Used Date Smoking Tobacco: Never Assessed Sex and Gender Information Value Date Recorded Sex Assigned at Not on file Gender Identity Not on file Sexual Orientation Not on file Plan of Treatment Health Maintenance Due Date Last Done Comments DTaP,Tdap,and Td Vaccines (1 - Tdap) 10/11/1962 Zoster Vaccines (1 of 2) 10/11/1993 Pneumococcal Vaccine: 65+ Ye ars (1 of 1 - PCV) 10/11/2008 RSV Immunization Patients 60 + Years Old (1 - 1-dose 75+ series) 10/11/2018 Depression Screening 05/07/2022 Falls Risk Assessment 05/07/2022 Medicare Annual Wellness Visit 05/07/2022 Osteoporosis Screening (Bone Density Screening) 05/07/2022 Social Influencers of Health Screening 05/07/2022 COVID-19 Vaccine (2023-2 5 season) 2024 Influenza Vaccine (#1) 2024 HIB Vaccines Aged Out No longer eligi ble based on patient's age to complete this topic HPV Vaccines Aged Out No longer eligi ble based on patient's age to complete this topic Hepatitis A Vaccines Aged Out No long er eligible based on patient's age to complete this topic Hepatitis B Vaccines Aged Out No long er eligible based on patient's age to complete this topic IPV Vaccines Aged Out No longer eligi ble based on patient's age to complete this topic MMR Vaccines Aged Out No longer eligi ble based on patient's age to complete this topic Meningococcal ACWY Vaccine Aged Out N o longer eligible based on patient's age to complete this topic RSV Immunization Patients Un angélica 20 months Aged Out No longer eligible b ased on patient's age to complete this topic Varicella Vaccines Aged Out No longer eligible based on patient's age to complete this topic Procedures Procedure Name Priority Date/Time Associated Diagnosis Comments URINALYSIS WITH REFLEX MICROSCOPIC AND CULTURE Routine 06/12/2024 10:30 PM EST Urinary tract infection, site not specified Hematuria, unspecified BERNARD URINE CULTURE TUBE Routine 06/12/2024 10:30 PM EST Urinary tract infection, site not specified Hematuria, unspecified URINALYSIS WITH REFLEX MICROSCOPIC AND CULTURE Routine 06/12/2024 10:30 PM EST Urinary tract infection, site not specified Hematuria, unspecified CULTURE URINE Routine 06/12/2024 10:30 PM EST Urinary tract infection, site not specified Hematuria, unspecified BERNARD URINE CULTURE TUBE Routine 04/14/2024 12:00 AM EST Hematuria, unspecified URINALYSIS WITH REFLEX MICROSCOPIC AND CULTURE Routine 04/14/2024 12:00 AM EST Hematuria, unspecified URINALYSIS WITH REFLEX MICROSCOPIC AND CULTURE Routine 04/14/2024 12:00 AM EST Hematuria, unspecified CULTURE URINE Routine 04/14/2024 12:00 AM EST Hematuria, unspecified from Last 3 Months Results * (ABNORMAL) Urinalysis with reflex microscopic and culture (06/12/2024 10:30 PM EST) Only the most recent of2 resultswithin the time period is included. Specific [place] Urine 1.008 1.003 - 1.030 LAB URINALYSIS - AUTOMATED METHOD 06/13/2024 11:13 AM [facility] pH, Urine 6.5 5.0 - 8.0 pH LAB URINALYSIS - AUTOMATED METHOD 06/13/2024 11:13 AM [facility] Leukocytes, Urine Large(A) Negative LAB URINALYSIS - AUTOMATED METHOD 06/13/2024 11:13 AM [facility] Nitrite, Urine Negative Negative LAB URINALYSIS - AUTOMATED METHOD 06/13/2024 11:13 AM [facility] Protein, Urine 100(A) <=Trace mg/dL LAB URINALYSIS - AUTOMATED METHOD 06/13/2024 11:13 AM [facility] Glucose, Urine Negative Negative mg/dL LAB URINALYSIS - AUTOMATED METHOD 06/13/2024 11:13 AM [facility] Ketones, Urine Negative Negative mg/dL LAB URINALYSIS - AUTOMATED METHOD 06/13/2024 11:13 AM [facility] Urobilinogen, Urine 0.2 0.2 - 1.0 mg/dL LAB URINALYSIS - AUTOMATED METHOD 06/13/2024 11:13 AM [facility] Bilirubin, Urine Negative Negative LAB URINALYSIS - AUTOMATED METHOD 06/13/2024 11:13 AM [facility] Blood, Urine Large(A) Negative LAB URINALYSIS - AUTOMATED METHOD 06/13/2024 11:13 AM [facility] RBC, Urine 429.5(H) 0 - 4 /HPF LAB URINALYSIS - AUTOMATED METHOD 06/13/2024 11:13 AM [facility] WBC, Urine 34.0(H) 0 - 4 /HPF LAB URINALYSIS - AUTOMATED METHOD 06/13/2024 11:13 AM [facility] Squamous Epithelial, Urine >100(H) 0 - 60 /LPF LAB URINALYSIS - AUTOMATED METHOD 06/13/2024 11:13 AM [facility] Bacteria, Urine Negative Negative /HPF LAB URINALYSIS - AUTOMATED METHOD 06/13/2024 11:13 AM [facility] Hyaline Casts, Urine 12.2(H) 0 - 3 /LPF LAB URINALYSIS - AUTOMATED METHOD 06/13/2024 11:13 AM [facility] Mucus, Urine Moderate None /HPF LAB URINALYSIS - AUTOMATED METHOD 06/13/2024 11:13 AM [facility] Urine Urine specimen obtained by clean catch procedure / Unknown Non-blood Collection / Unknown 06/12/2024 10:30 PM EST 06/13/2024 10:08 AM EST Ashley Morales MD LAB URINE ORDERABLES Performing Organization Address City/[facility]/ZIP Co de Phone Number [facility] [address] [place] [address], [place] [phone] * Bernard urine culture tube (06/12/2024 10:30 PM EST) Only the most recent of2 resultswithin the time period is included. Extra Tube Hold for add-ons. 06/13/2024 12:01 PM EST [facility] Comment:Auto resulted. Urine Urine specimen obtained by clean catch procedure / Unknown Non-blood Collection / Unknown 06/12/2024 10:30 PM EST 06/13/2024 10:08 AM EST Ashley Morales MD LAB URINE ORDERABLES Performing Organization Address City/[facility]/ZIP Co de Phone Number [facility] [address] [place] [address], [place] [phone] * (ABNORMAL) Culture urine (06/12/2024 10:30 PM EST) Only the most recent of2 resultswithin the time period is included. Culture, Urine 10,000-49,000 CFU/mL Streptococcus beta-hemolytic Group B(A) 06/14/2024 10:42 AM EST [facility] Comment: Susceptibility testing is not routinely performed for Beta Streptococcus isolates since these organisms are predictably sensitive to Penicillin. If the Patient is not responding, is allergic to Penicillin, or further therapeutic information is requir ed, please consult an Infectious Disease Specialist. Urine Urine specimen obtained by clean catch procedure / Unknown Non-blood Collection / Unknown 06/12/2024 10:30 PM EST 06/13/2024 11:13 AM EST Ashley Morales MD LAB MICROBIOLOGY - G ENERAL ORDERABLES [facility] [address] [place] [address], from Last 3 Months Care Teams Assistant Service Manager Relationship Specialty Start Date End Date Ashley Morales MD [address] [facility] [phone] PCP - General Internal Medicine 06/18/24
--- OUTSIDE RECORDS SUMMARY | 2024-07-01 22:41 | XMS_ITS | Encounter Summary ---
Author Organization [facility] Address [address] [place] [address] Care Team Providers Care Hole Digger Truck Driver Name Role Phone Ashley Morales MD Primary Care Provider Encounter Details Date Type Department Care Team (Late st Contact Info) Description 06/13/2024 Lab Requisition [facility] [address] [facility] [place] [address] Ashley Morales MD [address] [place] [address] Urinary tract infection, site not specified; Hematuria, unspecified Social History Tobacco Use Types Packs/Day Years Used Date Smoking Tobacco: Never Assessed Sex and Gender Information Value Date Recorded Sex Assigned at Not on file Gender Identity Not on file Sexual Orientation Not on file documented as of this encounter Plan of Treatment Not on file documented as of this encounter Procedures Procedure Name Priority Date/Time Associated Diagnosis [...] tract infection, site not specified Hematuria, unspecified documented in this encounter Results * (ABNORMAL) Culture urine (06/12/2024 10:30 PM EST) [facility] Culture, Urine 10,000-49,000 CFU/mL Streptococcus beta-hemolytic Group B(A) 06/14/2024 10:42 AM [facility] Comment: Susceptibility testing [...] EST Ashley Morales MD LAB MICROBIOLOGY - ENERAL ORDERABLES [facility] [address] [place] [address], * (ABNORMAL) Urinalysis with reflex microscopic and culture (06/12/2024 10:30 PM EST) [facility] Specific [place] Urine 1.008 1.003 - 1.030 LAB URINALYSIS - AUTOMATED METHOD 06/13/2024 11:13 AM [facility] pH, Urine 6.5 5.0 - 8.0 pH LAB URINALYSIS - AUTOMATED METHOD 06/13/2024 11:13 AM [facility] Leukocytes, Urine Large(A) Negative LAB URINALYSIS - AUTOMATED METHOD 06/13/2024 11:13 AM [facility] Nitrite, Urine Negative Negative LAB URINALYSIS - AUTOMATED METHOD 06/13/2024 11:13 AM [facility] Protein, Urine 100(A) <=Trace mg/dL LAB URINALYSIS - AUTOMATED METHOD 06/13/2024 11:13 AM [facility] Glucose, Urine Negative Negative mg/dL LAB URINALYSIS - AUTOMATED METHOD 06/13/2024 11:13 AM [facility] Ketones, Urine Negative Negative mg/dL LAB URINALYSIS - AUTOMATED METHOD 06/13/2024 11:13 AM [facility] Urobilinogen, Urine 0.2 0.2 - 1.0 mg/dL LAB URINALYSIS - AUTOMATED METHOD 06/13/2024 11:13 AM [facility] Bilirubin, Urine Negative Negative LAB URINALYSIS - AUTOMATED METHOD 06/13/2024 11:13 AM [facility] Blood, Urine Large(A) Negative LAB URINALYSIS - AUTOMATED METHOD 06/13/2024 11:13 AM [facility] RBC, Urine 429.5(H) 0 - 4 /HPF LAB URINALYSIS - AUTOMATED METHOD 06/13/2024 11:13 AM [facility] WBC, Urine 34.0(H) 0 - 4 /HPF LAB URINALYSIS - AUTOMATED METHOD 06/13/2024 11:13 AM [facility] Squamous Epithelial, Urine >100(H) 0 - 60 /LPF LAB URINALYSIS - AUTOMATED METHOD 06/13/2024 11:13 AM [facility] Bacteria, Urine Negative Negative /HPF LAB URINALYSIS - AUTOMATED METHOD 06/13/2024 11:13 AM [facility] Hyaline Casts, Urine 12.2(H) 0 - 3 /LPF LAB URINALYSIS - AUTOMATED METHOD 06/13/2024 11:13 AM [facility] Mucus, Urine Moderate None /HPF LAB URINALYSIS - AUTOMATED METHOD 06/13/2024 11:13 AM [facility] Urine Urine specimen obtained by clean catch procedure / Unknown Non-blood Collection / Unknown 06/12/2024 10:30 PM EST 06/13/2024 10:08 AM EST Ashley Morales MD LAB URINE ORDERABLES [facility] [address] [place] [address], * Bernard urine culture tube (06/12/2024 10:30 PM EST) Extra Tube Hold for add-ons. 06/13/2024 12:01 PM EST [facility] Comment:Auto resulted. Urine Urine specimen obtained by clean catch procedure / Unknown Non-blood Collection / Unknown 06/12/2024 10:30 PM EST 06/13/2024 10:08 AM EST Ashley Morales MD LAB URINE ORDERABLES [facility] [address] [place] [address], documented in this encounter Visit Diagnoses Diagnosis Urinary tract infection, site not specified Hematuria, unspecified documented in this encounter Care Teams Hole Digger Truck Driver Relationship Specialty Start Date End Date Ashley Morales MD [address] [place] [address] PCP - General Internal Medicine 06/18/24 documented as of this encounter
--- OUTSIDE RECORDS SUMMARY | 2024-07-01 22:41 | XMS_ITS | Encounter Summary ---
Author Organization [facility] Address [address] [place] [address] Care Team Providers Care Payroll Specialist Name Role Phone Ashley Morales MD Primary Care Provider [phone] Encounter Details Date Type Department Care Team (Late st Contact Info) Description 04/14/2024 Lab Requisition [facility] [address] [facility] [employer] [place] [address] Ashley Morales MD [address] [place] [address] Hematuria, unspecified Social History Tobacco Use Types [...] Routine 04/14/2024 12:00 AM EST Hematuria, unspecified BERNARD URINE CULTURE TUBE Routine 04/14/2024 12:00 AM EST Hematuria, unspecified URINALYSIS WITH REFLEX MICROSCOPIC AND CULTURE Routine 04/14/2024 12:00 AM EST Hematuria, unspecified CULTURE URINE Routine 04/14/2024 12:00 AM EST Hematuria, unspecified documented in this encounter Results * Culture urine (04/14/2024 12:00 AM EST) Culture, Urine 10,000-49,000 CFU/mL Mixed urogenital michelle, no uropathogens present. Suggest repeat specimen if clinically indicated. 04/15/2024 10:40 AM [facility] Urine Urine specimen obtained by clean catch procedure / Unknown 04/14/2024 04/14/2024 11:26 AM EST Ashley Morales MD LAB MICROBIOLOGY - G ENERAL ORDERABLES Performing Organization Address City/[facility]/ZIP Co de Phone Number [facility] [address] [place] [address], [place] [phone] * Bernard urine culture tube (04/14/2024 12:00 AM EST) Extra Tube Hold for add-ons. 04/14/2024 1:01 PM [facility] Comment:Auto resulted. Urine Urine specimen obtained by clean catch procedure / Unknown 04/14/2024 04/14/2024 11:13 AM EST Ashley Morales MD LAB URINE ORDERABLES Performing Organization Address City/[facility]/ZIP Co de Phone Number [facility] [address] [place] [address], [place] [phone] * (ABNORMAL) Urinalysis with reflex microscopic and culture (04/14/2024 12:00 AM EST) Pathologist [facility] Specific [place] Urine 1.020 1.003 - 1.030 LAB URINALYSIS - AUTOMATED METHOD 04/14/2024 11:26 AM [facility] pH, Urine 6.5 5.0 - 8.0 pH LAB URINALYSIS - AUTOMATED METHOD 04/14/2024 11:26 AM [facility] Leukocytes, Urine Trace(A) Negative LAB URINALYSIS - AUTOMATED METHOD 04/14/2024 11:26 AM [facility] Nitrite, Urine Negative Negative LAB URINALYSIS - AUTOMATED METHOD 04/14/2024 11:26 AM [facility] Protein, Urine 30(A) <=Trace mg/dL LAB URINALYSIS - AUTOMATED METHOD 04/14/2024 11:26 AM [facility] Glucose, Urine Negative Negative mg/dL LAB URINALYSIS - AUTOMATED METHOD 04/14/2024 11:26 AM [facility] Ketones, Urine Negative Negative mg/dL LAB URINALYSIS - AUTOMATED METHOD 04/14/2024 11:26 AM [facility] Urobilinogen , Urine 0.2 0.2 - 1.0 mg/dL LAB URINALYSIS - AUTOMATED METHOD 04/14/2024 11:26 AM [facility] Bilirubin, Urine Small(A) Negative LAB URINALYSIS - AUTOMATED METHOD 04/14/2024 11:26 AM [facility] Blood, Urine Large(A) Negative LAB URINALYSIS - AUTOMATED METHOD 04/14/2024 11:26 AM [facility] RBC, Urine >4,000(H) 0 - 4 /HPF LAB URINALYSIS - AUTOMATED METHOD 04/14/2024 11:26 AM [facility] WBC, Urine 8.3(H) 0 - 4 /HPF LAB URINALYSIS - AUTOMATED METHOD 04/14/2024 11:26 AM [facility] Squamous Epithelial, Urine 23 0 - 60 /LPF LAB URINALYSIS - AUTOMATED METHOD 04/14/2024 11:26 AM [facility] Bacteria, Urine Negative Negative /HPF LAB URINALYSIS - AUTOMATED METHOD 04/14/2024 11:26 AM [facility] Hyaline Casts, Urine 2.4 0 - 3 /LPF LAB URINALYSIS - AUTOMATED METHOD 04/14/2024 11:26 AM [facility] Urine Urine specimen obtained by clean catch procedure / Unknown 04/14/2024 04/14/2024 10:57 AM EST Ashley Morales MD LAB URINE ORDERABLES [facility] [address] [place] [address], documented in this encounter Visit Diagnoses Diagnosis Hematuria, unspecified documented in this encounter Care Teams Payroll Specialist Relationship Specialty Start Date End Date Ashley Morales MD [address] [place] [phone] PCP - General Internal Medicine 06/18/24 documented as of this encounter
[2024-07-01 22:42] LABS: Bacteria Urine None Seen (None Seen); Hyaline Casts Urine 0-2 /LPF (0-2); RBC Urine >20 /HPF (0-2); Squamous Epithelial Cell Urine 0-2 /HPF (0-2); UACC Culture Trigger YES; WBC Urine 0-5 /HPF (0-5)
[2024-07-01 22:46] LABS: Alanine Aminotransferase 29 U/L (0-31); Albumin Level 3.9 g/dL (3.5-5.0); Alkaline Phosphatase 113 U/L (39-117); Anion Gap 14 (12-20); Aspartate Amino Transferase 29 U/L (5-31); Bilirubin Total 0.2 mg/dL (0.0-1.0); Blood Urea Nitrogen 21 mg/dL (9-16); Carbon Dioxide 27 mmol/L (22-29); Chloride 107 mmol/L (96-108); Estimated Glomerular Filt Rate > 60; Glucose Random 133 mg/dL (60-115); Potassium 4.3 mmol/L (3.3-5.1); Sodium 144 mmol/L (135-145); Total Protein 7.5 g/dL (6.5-8.0)
[2024-07-01 23:05] LABS: Influenza A PCR NEGATIVE (Negative); Influenza B PCR NEGATIVE (Negative); Resp Syncy Virus RNA Qual PCR POSITIVE (Negative); SARS COV2 PCR INHOUSE NEGATIVE (Negative)
--- NOTE | 2024-07-01 23:22 | ED.FEMALEGU ---
HPI - Female Genitourinary General Chief complaint: Urogenital-Female Stated complaint: flank pain hx of UTI and kidney stones Time Seen by Provider: 07/01/24 23:22 History of Present Illness ED Provider: Silvano RAE Narrative: The patient is an 78-year-old woman who lives at the [facility]. She says that this evening at around 7PM she was doing nothing in particular, lying in bed watching TV, when she developed acute right lower back pain that radiates down the right leg. The pain is worse with movements. She also felt that it was harder to walk because of the pain and that made her feel as if her right knee was less steady than usual. Staff at the facility called an ambulance and she was brought to the hospital. The patient also says that she has had a runny nose and a cough today. The patient was recently hospitalized from May 17 to May 20. During that hospitalization she was felt to have mental status changes secondary to an urinary tract infection. She was treated with ceftriaxone. Her urine culture grew group B strep. She was discharged to finish 5 days if you have cefuroxime. The patient had had a stent in her left ureter because of kidney stones. The stent was removed during the hospitalization. Related Data Home Medications ?Medication ?Instructions ?Recorded ?Confirmed lisinopril 40 mg tablet 40 mg PO DAILY 11/04/20 06/17/24 rosuvastatin 20 mg tablet 20 mg PO BEDTIME 12/14/21 06/17/24 acetaminophen 325 mg tablet 650 mg PO Q4H PRN Pain 04/16/24 06/17/24 aluminum-mag hydroxide-simethicone 30 ml PO Q4H PRN GI UPSET 04/16/24 06/17/24 200 mg-200 mg-20 mg/5 mL oral susp (Mintox) glycerin (adult) 1 supp NH DAILY PRN Constipation 04/16/24 06/17/24 loperamide 2 mg capsule 2 mg PO Q4H PRN LOOSE STOOLS 04/16/24 06/17/24 magnesium hydroxide 400 mg/5 mL 30 ml PO DAILY PRN Constipation 04/16/24 06/17/24 oral suspension (Milk of Magnesia) sennosides 8.6 mg-docusate sodium 2 tab PO BID 04/16/24 06/17/24 50 mg tablet (Stool Softener-Laxative) vitamins A,C,Z-rkkn-corppi 2,148 1 tab PO BID 04/16/24 06/17/24 mcg-113 mg-45 mg-17.4 mg tablet (PreserVision AREDS) levothyroxine 100 mcg tablet 100 mcg PO DAILY 06/03/24 06/17/24 aspirin 81 mg tablet,delayed 81 mg PO DAILY 06/17/24 06/17/24 release Previous Rx's ?Medication ?Instructions ?Recorded blood-glucose meter (OneTouch #100 ea 09/01/20 Ultra2 Meter) insulin degludec 100 unit/mL (3 18 unit (0.18 mL) subcut BEDTIME 07/20/21 mL) subcutaneous pen (Tresiba #15 mL FlexTouch U-100 insulin) blood sugar diagnostic #100 ea 10/20/21 lancets 33 gauge (OneTouch Delica #100 ea 10/20/21 Lancets) pen needle, diabetic 33 gauge x #100 ea 11/18/21 (Comfort EZ Pen [place]) cyanocobalamin (vitamin B-12) 1,000 mcg PO DAILY #30 tabs 12/30/21 1,000 mcg tablet blood sugar diagnostic (FreeStyle #100 ea 01/13/22 Lite Strips) cholecalciferol (vitamin D3) 125 125 mcg PO DAILY #90 caps 02/16/22 mcg (5,000 unit) capsule famotidine 40 mg tablet 40 mg PO DAILY #90 tabs 02/16/22 clopidogrel 75 mg tablet 75 mg PO DAILY #90 tabs 03/09/22 donepezil 5 mg tablet 5 mg PO BEDTIME #90 tabs 03/09/22 gabapentin 100 mg capsule 100 mg PO BID #180 caps 03/09/22 metoprolol succinate 25 mg 50 mg (2 x 25 mg) PO DAILY #90 tabs 03/09/22 tablet,extended release 24 hr allopurinol 100 mg tablet 100 mg PO DAILY 90 days #90 tabs 03/27/22 polyethylene glycol 3350 17 17 g PO BID PRN constipation #238 11/10/22 gram/dose oral powder (Miralax) grams amlodipine 5 mg tablet 5 mg PO DAILY #90 tabs 05/06/24 nystatin 100,000 unit/gram topical 1 appl topical DAILY 30 days #30 06/17/24 cream grams cefuroxime axetil 500 mg tablet 500 mg PO BID #10 tabs 06/20/24 Allergies Allergy/AdvReac Type Severity Reaction Status Date / Time atorvastatin Allergy Unknown pt does Verified 07/01/24 21:52 not know azithromycin Allergy Unknown pt does Verified 07/01/24 21:52 not know citalopram Allergy Unknown pt does Verified 07/01/24 21:52 not know metformin Allergy Unknown pt does Verified 07/01/24 21:52 not know Review of Systems Review of Systems: Yes all other systems are reviewed and are negative [facility] Past Medical History Medical History Bilateral kidney stones Annual physical exam HTN (hypertension) IDDM (insulin dependent diabetes mellitus) Diverticulitis Nephrolithiasis Cataract Hyperlipidemia Pacemaker Myocardial infarct Macular degeneration Nephrolithiasis Dementia Frequent UTI HTN (hypertension) Hypothyroid Diabetes Surgical History Status post lumbar spine surgery for decompression of spinal cord H/O left knee surgery Family History Family History Father Heart attack Mother Heart problem Heart attack Substance use disorder Social History Social History Household Members: Other Household Members Other:: Sandra Pena [facility] Living Housing: Assisted Living Facility Housing Other:: Anni Pena Do you presently have visiting nurse or other home services: No Alcohol intake: never Comment: pt will get oob without assistance. Patient Tobacco Use Status: Current someday Tobacco user Tobacco use type: Cigarette Cigarettes Per Day: 1 Years Smoked: 54 Smoked in Last 30 Days: No e-Cigarette/Vaping Use: Never Used Second Hand Smoke Exposure: Yes Use of substances other than those prescribed or required for medical reasons: No Advance Directives: Yes Advance Directives on File: Yes Advance Directives Date on File: 11/05/20 Do you have a plan to hurt others: No Plan service: No Current occupational status: retired Cognitive needs: No Hearing needs: No Vision needs: Yes Physical Exam Vital Signs: Vital Signs: Last Vital Signs Temp 98.4 F 07/02/24 02:10 Pulse 60 07/02/24 02:10 Resp 14 07/02/24 05:15 BP 157/62 H 07/02/24 02:10 Pulse Ox 94 07/02/24 02:10 O2 Del Method Room Air 07/02/24 02:10 BMI result Body Mass Index 25.9 Const: Other: The patient is awake and alert. She seems fairly well oriented. She is complaining of right lower back pain radiating down her right leg. She does not seem acutely toxic or in distress. HEENT: Other: Face is symmetrical. Mucous membranes moist. Eyes: General: appearance normal, both eyes and all related structures Conjunctivae: conjunctivae normal Pupils: Equal, round and reactive pupils present EOM: EOMs intact bilaterally Neck: Neck: Yes full ROM and Yes no JVD Resp: Effort & Inspection: normal respiratory effort Auscultation: clear to auscultation bilaterally Cardio: Rate: regular rate Rhythm: regular rhythm Heart sounds: S1 normal heart sound present and S2 normal heart sound present GI: Other: The abdomen is soft and nontender. Skin: Other: Skin is dry and unremarkable Neuro: Other: The patient is awake and alert. She seems reasonably well oriented. Cranial nerves 2-12 are intact. She is able to move all of her extremities. She seems to have some difficulty with the right leg on account of pain that she says she feels mostly in the right lower back. She does not seem to have any definite weakness that is not related to pain. Sensation is intact throughout. Toes go down bilaterally. 1+ reflexes at the knees and ankles. Cranial nerves: Yes Equal, round and reactive pupils present Extrem: Other: No calf swelling or tenderness. No asymmetry to the legs. No peripheral edema. There is a negative contralateral straight leg test when I lift up the left leg. When I elevate the right leg with the leg straight this seems to reproduce the patient's pain ( positive ipsilateral straight leg test). Medications Administered Discontinued Medications Generic Name Dose Route Start Last Admin Trade Name Freq PRN Reason Stop Dose Admin Acetaminophen 1,000 mg in 100 mls @ 400 mls/hr 07/01/24 23:41 07/02/24 00:18 Ofirmev IV 07/01/24 23:55 Infused ONCE ONE Infusion Morphine Sulfate 2 mg 07/01/24 23:42 07/02/24 00:03 Morphine Sulfate 2 Mg/Ml Cartridge IVPUSH 07/01/24 23:43 2 mg ONCE ONE Administration Protocol Morphine Sulfate 7.5 mg 07/02/24 04:07 07/02/24 04:16 Morphine Sulfate Immed Release 15 Mg Tablet PO 07/02/24 04:08 7.5 mg ONCE ONE Administration Medical Decision Making Medical Decision Making [facility] Narrative: The patient is an 78-year-old woman who lives at the [facility]. She was recently hospitalized for urosepsis. She grew group B strep in her urine. She had a left ureteral stent removed when she was in the hospital. She finished a course of cefuroxime several days ago. She presents today with atraumatic right lower back pain that radiates down the right leg. She describes symptoms that suggest right-sided sciatica. No fever, sweats, chills. No bowel or bladder control complaints. She seems to have intact function of the right leg aside from some decreased use because of pain. Her pain seems positional. I suspect this is musculoskeletal. The patient was given a dose of IV Tylenol and a small dose of IV morphine. She had improvement in her pain and felt much better. We obtained plain films of the lumbar spine. Lumbar spine plain films were read as suggesting a possible slight compression fracture of L4. I reviewed the images. I do not see any significant loss of height of L4. I think the appearance of L4 today on plain films a similar to the appearance of the lateral spine on the patient has CT scan of the abdomen and pelvis that was done about 2 weeks ago. Therefore I do not think there is any acute fracture. The patient also has some complaints of what sounds like viral respiratory symptoms. A viral swab was sent which has tested positive for RSV. I think this is unrelated to her chief complaint which is her right lower back pain. Although the patient felt better after a dose of IV Tylenol and a small dose of IV morphine and although she was able to walk reasonably well the patient reported that she felt dizzy and did not feel that she was sufficiently safe to walk with this new low back pain so that she could returned to her rest home. Since the patient did not feel that she could return safely to her rest home we will keep the patient in the emergency department for evaluation by physical therapy and case management. The patient will be placed in physician observation. Lab Data 07/01/24 22:19 07/01/24 22:18 Labs: Lab Results 07/01/24 07/01/24 07/02/24 Range/Units 22:18 22:19 07:14 WBC 7.9 (4.8-10.8) X10*3/uL RBC 4.17 L (4.20-5.50) X10*6/uL Hgb 11.6 L (12.0-16.0) g/dl Hct 37.6 (37.0-47.0) % MCV 90.2 (80.0-98.0) fL MCH 27.8 (27.0-33.0) pg MCHC 30.9 L (31.0-35.0) g/dl RDW 15.9 (11.0-16.0) % Plt Count 234 (160-400) X10*3/uL MPV 9.6 (9.4-12.3) fL Immature Gran % (Auto) 0.4 (0.0-0.4) % Neut % (Auto) 70.9 (45-73) % Lymph % (Auto) 17.7 L (20-40) % Linn % (Auto) 8.3 (2-11) % Eos % (Auto) 1.8 (0-4) % Baso % (Auto) 0.9 (0-2) % Lymph # (Auto) 1.4 (1.2-4.9) X10*3/uL Linn # (Auto) 0.7 (0.1-1.2) X10*3/uL Eos # (Auto) 0.1 (0.0-0.4) X10*3/uL Baso # (Auto) 0.1 (0.0-0.2) X10*3/uL Abs Immat Gran (auto) 0.03 (0.00-0.03) X10*3/uL Absolute Neuts (auto) 5.6 (2.0-8.3) x10*3/uL Absolute Nucleated RBC 0.000 (0.0-0.012) X10*3/uL Nucleated RBC % (auto) 0.0 (0.0-0.2) /100WBC Sodium 144 (135-145) mmol/L Potassium 4.3 (3.3-5.1) mmol/L Chloride 107 (96-108) mmol/L Carbon Dioxide 27 (22-29) mmol/L Anion Gap 14 (12-20) BUN 21 H (9-16) mg/dL Creatinine 0.76 (0.5-1.4) mg/dL Estim Creat Clear Calc 54.0 Estimated GFR > 60 POC Glucose 184 H (60-115) mg/dL Random Glucose 133 H (60-115) mg/dL Calcium 9.0 (8.4-10.2) mg/dL Total Bilirubin 0.2 (0.0-1.0) mg/dL AST 29 (5-31) U/L ALT 29 (0-31) U/L Alkaline Phosphatase 113 (39-117) U/L Total Protein 7.5 (6.5-8.0) g/dL Albumin 3.9 (3.5-5.0) g/dL Urine Color Yellow Urine Appearance Cloudy Urine pH 6.0 (5.0-9.0) Ur Specific [place] 1.015 (1.005-1.025) Urine Protein 30 (1+) H (Neg-Trace) mg/dL Urine Glucose (UA) Negative (Negative) mg/dL Urine Ketones Negative (Negative) mg/dL Urine Blood Large (3+) H (Negative) Urine Nitrite Negative (Negative) Ur Leukocyte Esterase Small (1+) H (Negative) Urine RBC >20 H (0-2) /HPF Urine WBC 0-5 (0-5) /HPF Ur Squamous Epith Cells 0-2 (0-2) /HPF Urine Bacteria None Seen (None Seen) Hyaline Casts 0-2 (0-2) /LPF Influenza Type A (PCR) NEGATIVE (Negative) Influenza Type B (PCR) NEGATIVE (Negative) RSV RNA Qual (PCR) POSITIVE A (Negative) SARS-CoV-2 RNA (RT-PCR) NEGATIVE (Negative) Discharge Plan Discharge Clinical Impression: Acute right-sided low back pain with right-sided sciatica, RSV infection Patient Disposition: Still a Patient Prescriptions: No Action (DME) blood-glucose meter [OneTouch Ultra2 Meter] Misc See Rx Instructions .ROUTE .MEDSUPPLY Qty: 100 3RF Rx Instructions: tid (DME) pen needle, diabetic [Comfort EZ Pen [place]] 33 gauge x 5/32 needle See Rx Instructions .Route Qty: 100 3RF Rx Instructions: As directed cyanocobalamin (vitamin B-12) 1,000 mcg tablet 1,000 mcg PO DAILY Qty: 30 8RF (DME) FreeStyle Lite Strips Strip See Rx Instructions .Route Qty: 100 5RF Rx Instructions: test blood sugar 3 times per day famotidine 40 mg tablet 40 mg PO DAILY Qty: 90 3RF cholecalciferol (vitamin D3) 125 mcg (5,000 unit) capsule 125 mcg PO DAILY Qty: 90 3RF donepezil 5 mg tablet 5 mg PO BEDTIME Qty: 90 3RF metoprolol succinate 25 mg tablet extended release 24 hr 50 mg PO DAILY Qty: 90 3RF gabapentin 100 mg capsule 100 mg PO BID Qty: 180 3RF clopidogrel 75 mg tablet 75 mg PO DAILY Qty: 90 3RF allopurinol 100 mg tablet 100 mg PO DAILY 90 Days Qty: 90 1RF polyethylene glycol 3350 [Miralax] 17 gram/dose powder 17 g PO BID PRN (Reason: constipation) Qty: 238 0RF Rx Instructions: If no BM x 3 days nystatin 100,000 unit/gram cream 1 appl topical DAILY 30 Days Qty: 30 1RF lisinopril 40 mg Tablet 40 mg PO DAILY levothyroxine 100 mcg Tablet 100 mcg PO DAILY aspirin 81 mg Tablet,Delayed Release (Dr/Ec) 81 mg PO DAILY cefuroxime axetil 500 mg tablet 500 mg PO BID Qty: 10 0RF acetaminophen 325 mg Tablet 650 mg PO Q4H PRN (Reason: Pain) loperamide 2 mg Capsule 2 mg PO Q4H PRN (Reason: LOOSE STOOLS) Rx Instructions: administer after each loose stool until symptoms controlled; do not exceed 8 mg per 24 hrs sennosides-docusate sodium [Stool Softener-Laxative] 8.6-50 mg tablet 2 tab PO BID magnesium hydroxide [Milk of Magnesia] 400 mg/5 mL Suspension 30 ml PO DAILY PRN (Reason: Constipation) alum-mag hydroxide-simeth [Mintox] 200-200-20 mg/5 mL Suspension 30 ml PO Q4H PRN (Reason: GI UPSET) Rx Instructions: administer between meals and at bedtime glycerin (adult) Suppository 1 supp NH DAILY PRN (Reason: Constipation) PreserVision AREDS 2,148 mcg-113 mg-45 mg-17.4mg tablet 1 tab PO BID Tresiba FlexTouch U-100 100 unit/mL (3 mL) insulin pen 18 unit subcut BEDTIME Qty: 15 4RF rosuvastatin 20 mg tablet 20 mg PO BEDTIME (DME) lancets [OneTouch Delica Lancets] 33 gauge misc See Rx Instructions .ROUTE .MEDSUPPLY Qty: 100 5RF Rx Instructions: TID (DME) blood sugar diagnostic Strip See Rx Instructions .ROUTE .MEDSUPPLY Qty: 100 4RF Rx Instructions: tid amlodipine 5 mg tablet 5 mg PO DAILY Qty: 90 0RF Print Language: Ukrainian
[2024-07-01 23:34] VITALS: BP 180/72; PULSE 64; RESP 20; TEMP 37.4; O2SAT 95
[2024-07-02] VITALS (8 sets, daily range): BP systolic 105–157; BP diastolic 52–67; PULSE 60–61; RESP 14–18; TEMP 36.4–36.9; O2SAT 92–97
[2024-07-02] MEDS: Morphine Sulfate 2 MG/ML CARTRIDGE IVPUSH (00:03)
[2024-07-02] MEDS: Acetaminophen 1,000 MG/100 ML PIGGYBACK 400 MG IV ×2 (00:03→07:52)
[2024-07-02] MEDS: Morphine Sulfate Immed Release 15 MG TABLET 7.5 MG PO (04:16)
[2024-07-02 07:18] LABS: Glucose, Whole Blood 184 mg/dL (60-115)
--- NOTE | 2024-07-02 08:01 | PC.NURSE ---
pt is alert and oriented, skin pwd, respirations even and unlabored, ls clear, pt reports right sided back/flank pain that wraps to the front and runs down to her right leg pain 01/11, vs stable pt is awaiting physical consult because was having a hard time ambulating
--- NOTE | 2024-07-02 08:40 | PHA.MEDREC ---
Pharmacy Consult ? Medication Reconciliation Pharmacy has completed the medication reconciliation, utilized list from Anni Lowe.
[2024-07-02] MEDS: allopurinoL 100 MG TABLET PO (09:05)
[2024-07-02] MEDS: Levothyroxine Sodium 100 MCG TABLET PO (09:05)
[2024-07-02] MEDS: Famotidine 20 MG TABLET 40 MG PO (09:05)
[2024-07-02] MEDS: Clopidogrel Bisulfate 75 MG TABLET PO (09:05)
[2024-07-02] MEDS: Metoprolol Succinate ER 50 MG TAB.ER.24H PO (09:05)
[2024-07-02] MEDS: Aspirin Enteric Coated 81 MG TABLET.DR PO (09:05)
[2024-07-02] MEDS: Gabapentin 100 MG CAPSULE PO (09:05)
[2024-07-02] MEDS: amLODIPine Besylate 5 MG TABLET PO (09:06)
[2024-07-02] MEDS: Atorvastatin Calcium 80 MG TABLET PO (09:06)
[2024-07-02] MEDS: lisinopriL 40 MG TABLET PO (09:06)
--- NOTE | 2024-07-02 12:08 | MHC.CM.ED ---
Addendum entered by Senait Altamirano 07/02/24 15:20: Received return telephone call from patient's daughter, Marian, discharge info provided. Original Note: Received case management consult from Dr Schaefer. Patient was admitted at [facility] from 06/17-06/20. Returned to rest home and returned to ER 07/01 due to weakness. Found to be +RSV. Physical therapy eval completed. Rehab is recommended. Referral made to all 3 acute rehab facilities. No bed offers at this time. Referral broadcasted within 15 miles of patient's' home. [facility] is the only facility that is able to offer a bed. Met with patient. Patient agreeable to d/c to [place]. Ronni BEDOLLA booked for 4pm. [facility] with chart. Patient, Leonarda BUTLER and Annie GALVAN aware. Attempted to speak to patient's daughter, Marian, via telephone at [phone]. Left voicemail requesting return telephone call. Continue to monitor for d/c needs.
--- NOTE | 2024-07-02 14:54 | PC.NURSE ---
report given to Eyad at the sniff
== END 2024-07-02 18:13 ==
PROVIDERS: Emergency Provider Emergency Medicine; PCP Internal Medicine
DX: M54.41 Lumbago with sciatica, right side (principal); R05.9 Cough, unspecified; B97.4 Respiratory syncytial virus as the cause of diseases classified elsewhere; E11.9 Type 2 diabetes mellitus without complications; I10 Essential (primary) hypertension; E78.5 Hyperlipidemia, unspecified; F17.210 Nicotine dependence, cigarettes, uncomplicated; Z95.0 Presence of cardiac pacemaker; Z03.818 Encounter for observation for suspected exposure to other biological agents ruled out; Z79.02 Long term (current) use of antithrombotics/antiplatelets; Z79.82 Long term (current) use of aspirin; Z79.899 Other long term (current) drug therapy; Z79.4 Long term (current) use of insulin
CPT/HCPCS: 0241U; 71045; 72100; 80053; 81001; 82947; 85025; 87086; 96365; 96375; 97162; 99285; J0131; J2270

== ENCOUNTER → 2024-07-01 22:31 | Outpatient (BNV) | payer MEDICARE, MEDICAID, SELFPAY | PROVIDERS: Emergency Provider Emergency Medicine; Visit Provider Radiology Diagnostic Radiology | DX: R05.9 Cough, unspecified (principal) | CPT/HCPCS: 71045 ==

== ENCOUNTER → 2024-07-02 | Outpatient (BNV) | payer MEDICARE, MEDICAID, SELFPAY | PROVIDERS: Emergency Provider Emergency Medicine; Visit Provider Radiology Diagnostic Radiology | DX: M54.50 Low back pain, unspecified (principal) | CPT/HCPCS: 72100 ==

== ENCOUNTER 2024-10-31 15:30 | Outpatient (REF) | payer MEDICARE, MEDICAID, SELFPAY ==
--- OUTSIDE RECORDS SUMMARY | 2024-10-31 15:33 | XMS_ITS | Encounter Summary ---
Author Organization [facility] Address [address] [place] [address] Care Team Providers Care Colorer Name Role Phone Ashley Morales MD Primary Care Provider [phone] Encounter Details Date Type Department Care Team (Late st Contact Info) Description 08/06/[address] [facility] Lab [address] ? [place] [address] Gaye Lauren MD [address] [place] [address] Essential (primary) hypertension Social History Tobacco Use Types Packs/Day Years Used Date Smoking Tobacco: Never Assessed Comments Unknown Sex and Gender Information Value Date Recorded Sex Assigned at Not on file Legal Sex Female 8:49 AM EST Gender Identity Not on file Sexual Orientation Not on file documented as of this encounter Plan of Treatment Not on file documented as of this encounter Procedures Procedure Name Priority Date/Time Associated Diagnosis Comments COMPLETE BLOOD COUNT Routine 08/07/2024 6:01 AM EST Essential (primary) hypertension BASIC METABOLIC PANEL Routine 08/07/2024 6:01 AM EST Essential (primary) hypertension documented in this encounter Results * (ABNORMAL) Basic metabolic panel (08/07/2024 6:01 AM EST) Sodium 139 133 - 145 mmol/L LAB CHEMISTRY METHOD 08/07/2024 9:48 AM EST [facility] Potassium 3.9 3.5 - 5.5 mmol/L LAB CHEMISTRY METHOD 08/07/2024 9:48 AM EST [facility] Chloride 107 96 - 110 mmol/L LAB CHEMISTRY METHOD 08/07/2024 9:48 AM [facility] CO2 25 21 - 32 mmol/L LAB CHEMISTRY METHOD 08/07/2024 9:48 AM [facility] Anion Gap 7 3 - 11 LAB CHEMISTRY METHOD 08/07/2024 9:48 AM [facility] Glucose 111(H) 70 - 100 mg/dL LAB CHEMISTRY METHOD 08/07/2024 9:48 AM [facility] BUN 20 5 - 25 mg/dL LAB CHEMISTRY METHOD 08/07/2024 9:48 AM [facility] Creatinine 0.77 0.50 - 1.10 mg/dL LAB CHEMISTRY METHOD 08/07/2024 9:48 AM [facility] eGFR 78 >=60 mL/min/1. 73m2 LAB CHEMISTRY METHOD 08/07/2024 9:48 AM [facility] Comment:Calculation based on the??Chronic Kidney Disease Epidemiology Collaboration (CKD-EPI) equation refit??without adjustment for race. BUN/Creatinine Ratio 26.0 LAB CHEMISTRY METHOD 08/07/2024 9:48 AM [facility] Calcium 9.0 8.5 - 10.5 mg/dL LAB CHEMISTRY METHOD 08/07/2024 9:48 AM [facility] Blood Venous blood specimen / Unknown Venipuncture / Unknown 08/07/2024 6:01 AM EST 08/07/2024 8:45 AM EST us Gaye Lauren MD LAB BLOOD ORDERABLES Final Resul t [facility] [address] [place] [address], * (ABNORMAL) Complete blood count (08/07/2024 6:01 AM EST) WBC 7.1 4.8 - 10.8 [facility] LAB HEMETOLOGY METHOD 08/07/2024 9:38 AM [facility] RBC 4.40 3.80 - 4.80 M/mcL LAB HEMETOLOGY METHOD 08/07/2024 9:38 AM [facility] Hemoglobin 12.0 11.5 - 16.0 g/dL LAB HEMETOLOGY METHOD 08/07/2024 9:38 AM [facility] Hematocrit 38.6 35.0 - 47.0 % LAB HEMETOLOGY METHOD 08/07/2024 9:38 AM [facility] MCV 87.3 79.0 - 98.0 FL LAB HEMETOLOGY METHOD 08/07/2024 9:38 AM [facility] MCH 27.1 27.0 - 32.0 pcg LAB HEMETOLOGY METHOD 08/07/2024 9:38 AM [facility] MCHC 31.1(L) 32.0 - 37.0 g/dL LAB HEMETOLOGY METHOD 08/07/2024 9:38 AM [facility] RDW 15.7(H) 11.0 - 15.0 % LAB HEMETOLOGY METHOD 08/07/2024 9:38 AM [facility] Platelets 221 130 - 400 K/mcL LAB HEMETOLOGY METHOD 08/07/2024 9:38 AM [facility] MPV 9.9 7.0 - 11.0 FL LAB HEMETOLOGY METHOD 08/07/2024 9:38 AM [facility] NRBC 0.0 <1.0 % LAB HEMETOLOGY METHOD 08/07/2024 9:38 AM [facility] NRBC Absolute 0.00 <0.10 K/mcL LAB HEMETOLOGY METHOD 08/07/2024 9:38 AM [facility] Blood Venous blood specimen / Unknown Venipuncture / Unknown 08/07/2024 6:01 AM EST 08/07/2024 8:45 AM EST us Gaye Lauren MD LAB BLOOD ORDERABLES Final Resul t [facility] [address] [place] [address], documented in this encounter Visit Diagnoses Diagnosis Essential (primary) hypertension Unspecified essential hypertension documented in this encounter Care Teams Colorer Relationship Specialty Start Date End Date Ashley Morales MD [address] [place] [address] PCP - General Internal Medicine 06/18/24 documented as of this encounter
== END 2024-10-31 15:31 | disposition home or self-care (01) ==
LOC: HO.HAP 15:30
PROVIDERS: Visit Provider Internal Medicine
DX: Z46.1 Encounter for fitting and adjustment of hearing aid (principal); H90.3 Sensorineural hearing loss, bilateral
CPT/HCPCS: V5266

== ENCOUNTER 2024-11-14 15:02 | Outpatient (REF) | payer MEDICARE, MEDICAID, SELFPAY ==
--- NOTE | ~2024-11-14 | US_ITS ---
EXAMINATION: Ultrasound renal bilaterally. CLINICAL INFORMATION: Calculus of the kidney. COMPARISON: Correlated to CT dated June 16, 2024. TECHNIQUE: Real-time ultrasound kidneys using grayscale technique. FINDINGS: Right kidney: 10 x 5 x 6 cm. Normal echotexture. Renal cortical thinning. No hydronephrosis. There is an 8 mm anechoic lesion in the lower pole without septations or flow on color Doppler interrogation. There multiple, small less than 5 mm hyperechoic areas throughout the pelvicalyceal system. Left kidney: 12 x 5 x 4 cm. Normal echotexture. Normal renal cortical thickness. No acute processes. Multifocal less than 9 mm hyperechoic lesions throughout the pelvicalyceal system. US/US renal BI IMPRESSION: Bilateral nonobstructing nephrolithiasis. 8 mm cyst, right kidney. Electronically signed by: Karel Sterling MD 11/17/2024 08:19 AM EDT
== END 2024-11-14 15:03 | disposition home or self-care (01) ==
LOC: HO.US 15:02
PROVIDERS: PCP Internal Medicine; Visit Provider Urology
DX: N20.0 Calculus of kidney (principal)
CPT/HCPCS: 76775

== ENCOUNTER → 2024-11-14 15:05 | Outpatient (BNV) | payer MEDICARE, MEDICAID, SELFPAY | PROVIDERS: PCP Internal Medicine; Visit Provider Radiology Diagnostic Radiology | DX: N20.0 Calculus of kidney (principal) | CPT/HCPCS: 76775 ==

== ENCOUNTER 2024-11-24 15:36 | Outpatient (AMB) | payer MEDICARE, MEDICAID, SELFPAY ==
--- NOTE | 2024-11-24 15:55 | A.OFFVIS_ITS ---
Intake Visit Reasons: US f/u Intake Note: Patient is present for Follow up/US * Renal US 11/14 Urology Med:Allopurinol, Vitamin B12, Vitamin B6 Antibiotic Allergy: Azithromycin Blood Thinner: Aspirin, Clopidogrel PVR:104ml Allergies atorvastatin Allergy (Unknown, Verified 11/24/24 15:56) pt does not know azithromycin Allergy (Unknown, Verified 11/24/24 15:56) pt does not know citalopram Allergy (Unknown, Verified 11/24/24 15:56) pt does not know metformin Allergy (Unknown, Verified 11/24/24 15:56) pt does not know Medication List - Last Reconciled 11/24/24 by Cy Hutchison MD acetaminophen 650 mg PO Q4H PRN allopurinol 100 mg PO DAILY 90 days amlodipine 5 mg PO DAILY aspirin 81 mg PO DAILY blood sugar diagnostic tid blood sugar diagnostic (FreeStyle Lite Strips) test blood sugar 3 times per day blood-glucose meter ([employer] Ultra2 Meter) tid cholecalciferol (vitamin D3) 125 mcg PO DAILY clopidogrel 75 mg PO DAILY cyanocobalamin (vitamin B-12) (Vitamin B-12) 1,000 mcg PO DAILY donepezil 5 mg PO BEDTIME famotidine 40 mg PO DAILY gabapentin 100 mg PO BID lancets (FitfullyTouch Delica Lancets) TID levothyroxine 100 mcg PO DAILY@0600 lisinopril 40 mg PO DAILY metoprolol succinate ER 50 mg (2 x 25 mg) PO DAILY pen needle, diabetic (Comfort EZ Pen [place]) As directed polyethylene glycol 3350 (Miralax) 17 grams PO BID PRN pyridoxine (vitamin B6) 100 mg PO DAILY rosuvastatin 20 mg PO DAILY sennosides-docusate sodium 8.6-50 mg (Stool Softener-Laxative) 2 tabs PO BID vitamins A,C,T-enda-ixrofz 2,148 mcg-113 mg-45 mg-17.4mg (PreserVision AREDS) 1 tab PO BID HPI Comments Details: 11/24/24-- History of Present Illness - The patient is an 79-year-old female presenting with nephrolithiasis. - She has a long-standing history of kidney stones, having experienced them throughout her life. - Recent renal ultrasound shows small stones in both kidneys, which are stable and small enough to potentially pass on their own. - The patient is on vitamin B6 supplementation to help reduce the risk of stone formation by aiding in oxalate metabolism. - She reports no urinary tract infections or hematuria, and she is urinating adequately without significant leakage. Results - Renal ultrasound: Small stones in both kidneys, stable condition Discussion Notes I discussed with the patient that her renal ultrasound shows small stones in both kidneys, which are stable and small enough to potentially pass on their own. We will continue to monitor her condition with another ultrasound in 9 to 12 months. I advised her to continue taking vitamin B6 to help reduce the risk of stone formation. The patient was informed to report any changes or symptoms such as urinary tract infections or hematuria. Follow-up care was discussed, and she was advised to contact us if there are any changes in her condition. 06/27/24--Sara Pedraza was admitted to the [facility] for UTI. She presents today with her daughter. During that admission the ureteral stent was removed. Will continue to monitor kidney stones. The patient resides in an assisted living facility. Pamphlet with diet recommendations to decrease kidney stone risk sent along with paperwork for the nurses. Follow-up in 4-1/2 months renal ultrasound prior. 03/05/24--Sara Pedraza is an 78-year-old female who has been followed for kidney stones in the past, was seen in the emergency room on 02/16/2024 with complaints of abdominal pain. Urinalysis- question UTI. Urine culture 02/16/24- less than 10,[address] imaging reported bilateral nonobstructing kidney stones unable to rule out pyelonephritis. The patient was treated with antibiotics. Discussed that she may have passed a stone. She states she is feeling much better. CTAP-02/16/24--No hydronephrosis or obstructing calculus identified. Multiple bilateral renal calculi redemonstrated. Of note, there is significantly limited in evaluation for pyelonephritis without intravenous contrast. 09/24/21--[place] is a pleasant female. Accompanied by a caregiver. She is a patient of Dr. Cotto. MYRIAM with consistent stone burden Discussed possible intervention At this point she is not interested Certainly has stones on left and right Continue vitamin B6 and allopurinol Nephrolithiasis Longstanding history of stones Imaging - 09/22 CT bilateral nephrolithiasis left greater than right, small stones 3 mm - 03/24 renal ultrasound left 1.2 cm, right stones 6 mm Was able to pass stones at last admission Discussed stone management - recommend increase fluid intake, allopurinol, vitamin B6. - year imaging [facility] Medical History Bilateral kidney stones Annual physical exam HTN (hypertension) IDDM (insulin dependent diabetes mellitus) Diverticulitis Nephrolithiasis Cataract Hyperlipidemia Pacemaker Myocardial infarct Macular degeneration Nephrolithiasis Dementia Frequent UTI HTN (hypertension) Hypothyroid Diabetes Surgical History Status post lumbar spine surgery for decompression of spinal cord H/O left knee surgery Family History Father Heart attack Mother Heart problem Heart attack Substance use disorder Social History Household Members: Other Household Members Other:: Sandra Pena [facility] Living Housing: Assisted Living Facility Housing Other:: Anni Pena Do you presently have visiting nurse or other home services: No Alcohol intake: never Comment: pt will get oob without assistance. Patient Tobacco Use Status: Current someday Tobacco user Tobacco use type: Cigarette Cigarettes Per Day: 1 Years Smoked: 54 e-Cigarette/Vaping Use: Never Used Second Hand Smoke Exposure: Yes Advance Directives Date on File: 11/05/20 service: No Current occupational status: retired Cognitive needs: No Hearing needs: No Vision needs: Yes Review of Systems Const All systems reviewed & are unremarkable except as noted in HPI and below Reports no additional complaints Eyes Reports no additional complaints ENT Reports no additional complaints Card Reports no additional complaints Resp Reports no additional complaints GI Reports no additional complaints Reports as per HPI Musc Reports no additional complaints Skin/Breast Reports system reviewed and no additional complaints, except as documented Neuro Reports no additional complaints Psych Reports no additional complaints Endo Reports no additional complaints Darren/Lymph Reports no additional complaints Aller/Immun Reports no additional complaints Results Reviewed Results Reviewed: Date of Service: 11/14/24 Ultrasound renal bilaterally. CLINICAL INFORMATION: Calculus of the kidney. COMPARISON: Correlated to CT dated June 16, 2024. TECHNIQUE: Real-time ultrasound kidneys using grayscale technique. FINDINGS: Right kidney: 10 x 5 x 6 cm. Normal echotexture. Renal cortical thinning. No hydronephrosis. There is an 8 mm anechoic lesion in the lower pole without septations or flow on color Doppler interrogation. There multiple, small less than 5 mm hyperechoic areas throughout the pelvicalyceal system. Left kidney: 12 x 5 x 4 cm. Normal echotexture. Normal renal cortical thickness. No acute processes. Multifocal less than 9 mm hyperechoic lesions throughout the pelvicalyceal system. IMPRESSION: Bilateral nonobstructing nephrolithiasis. 8 mm cyst, right kidney. Date of Service: 06/16/24 CT abdomen and pelvis with contrast Comparison: CT/SR - CT ABDOMEN PELVIS W IV CON - 06/03/24 13:[address]/SR - CT ABDOMEN PELVIS W IV CON - 06/26/22 19:02 EST Findings: Mild bibasilar atelectasis. Small hepatic hypodensities likely cysts. Gallbladder, spleen, and pancreas are within normal limits. Chronic mild thickening of the adrenal glands. Left nephroureteral stent in place with ureteral wall thickening and periureteral stranding, similar to prior. Collecting system dilatation has resolved. Symmetric contrast enhancement of the kidneys. Bilateral nonobstructing renal calculi. Small cortical cysts. Large amount of stool in the sigmoid colon. Colonic diverticulosis without acute inflammation. No bowel obstruction, pneumatosis or pneumoperitoneum. Aortic atherosclerosis with infrarenal abdominal aortic aneurysm measuring 3.8 x 3.0 cm, similar to the recent prior exam when measured in the same manner. Hysterectomy. Urinary bladder is within normal limits. 1.1 x 0.8 cm enhancing soft tissue nodule adjacent to the left vaginal cuff, similar to 2022. Phlebolith in the left hemipelvis. Osteopenia. Degenerative changes of the spine. IMPRESSION: 1. Large amount of stool in the sigmoid colon. No evidence of diverticulitis. 2. Left nephroureteral stent with periureteral inflammatory changes, similar to prior. Collecting system dilatation has resolved. 3. 1.1 x 0.8 cm enhancing left vaginal cuff nodule, stable since 2022. Date of Service: 02/16/24 CT ABDOMEN AND PELVIS WITHOUT CONTRAST CLINICAL INFORMATION: Flank pain, change in urinary habits COMPARISON: 06/26/2022 TECHNIQUE: Multidetector volumetric imaging was performed from the superior aspect of the liver through the pubic symphysis. Sagittal and coronal reformatted images were obtained on the technologist's workstation. This CT examination was performed using dose optimization techniques as appropriate, variously including the following: *Automated exposure control *Adjustment of mA and/or kV according to patient size (this includes techniques or standardized protocols for targeted exams where dose is matched to indication/reason for exam; i.e. extremities or head) *Use of iterative reconstruction technique DLP: 562 mGy-cm FINDINGS: LUNG BASES: Minimal dependent atelectasis. Coronary artery calcifications are present. LIVER, GALLBLADDER, AND BILIARY TREE: The liver is normal in size, shape, and attenuation. No focal hepatic lesion or biliary ductal dilatation is identified on this noncontrast exam. Gallbladder is grossly unremarkable. PANCREAS: Unremarkable. SPLEEN: Unremarkable. ADRENAL GLANDS: Somewhat thickened appearance bilaterally, unchanged from prior. KIDNEYS AND URETERS: No hydronephrosis or obstructing calculus identified bilaterally. Numerous scattered small calcifications again noted throughout the kidneys. There is a suspected small hyperdense cyst in the right upper pole. BLADDER: Mildly distended and grossly unremarkable. GASTROINTESTINAL TRACT: No evidence of bowel obstruction. There is colonic diverticulosis without convincing diverticulitis. Large amount of stool in the distal sigmoid colon is similar to prior. No free fluid or free air is seen. ABDOMINAL WALL: No significant hernia is appreciated. LYMPH NODES: Normal. VASCULAR: There is atherosclerotic calcification along the aorta and iliac arteries. There is focal dilation of the infrarenal aorta to approximately 4.1 cm. PELVIC VISCERA: Patient is status post hysterectomy. OSSEOUS STRUCTURES: Degenerative changes are noted in the spine. IMPRESSION: 1. No acute findings identified in the abdomen/pelvis. No hydronephrosis or obstructing calculus identified. Multiple bilateral renal calculi redemonstrated. Of note, there is significantly limited in evaluation for pyelonephritis without intravenous contrast. Assessment & Plan Assessment & Plan (1) Bilateral kidney stones: Code(s): N20.0 - Calculus of kidney Category: Medical Plan Plan - Continue monitoring kidney stones with renal ultrasound every 9 to 12 months. - Prescribe and continue vitamin B6 supplementation to aid in oxalate metabolism and reduce the risk of stone formation. - Advise the patient to report any symptoms such as urinary tract infections or hematuria. Orders: Orders US renal BI 9 Months N20.0 - Calculus of kidney Medications: New pyridoxine (vitamin B6) 100 mg PO DAILY 90 tabs 3RF Patient Instructions: The patient had an opportunity to ask questions regarding treatment plan. The patient expressed understanding and agreement with the above treatment plan. The patient is aware they should contact our office by phone for worsening of their current condition or the appearance of new symptoms. Compliance is encouraged with any medications and followup testing that is ordered. It is a privilege to be allowed the opportunity to participate in the urologic care of your patient. If you have any questions or concerns regarding treatment for the above conditions please do not hesitate to contact me. The office telephone contact is [phone]. This note is constructed in part using voice recognition software. While every effort has been made to ensure accuracy cement sprayer helper errors may have been included. Yours sincerely, Cy Hutchison MD Scribe Plan - Not visible on output: Patient was informed and verbally consented to the use of an ambient scribe for clinic note documentation during this visit. Coding Level of Care Code Est Pt Level 3 (08650) Diagnoses Bilateral kidney stones N20.0
--- OUTSIDE RECORDS SUMMARY | 2024-11-24 17:06 | XMS_ITS | Encounter Summary ---
Author Organization [facility] Address [address] [place] [address] Care Team Providers Care Financial Wellness Coach Name Role Phone Ashley Morales MD Primary Care Provider [phone] Encounter Details Date Type Department Care Team (Late st Contact Info) Description 08/06/[address] [facility] - Main Lab [address] [facility] [place] [address] Gaye Lauren MD [address] [place] [address] Essential (primary) hypertension Social History Tobacco Use [...] LAB CHEMISTRY METHOD 08/07/2024 9:48 AM EST [facility] Potassium 3.9 3.5 - 5.5 mmol/L LAB CHEMISTRY METHOD 08/07/2024 9:48 AM EST [facility] Chloride 107 96 - 110 mmol/L LAB CHEMISTRY METHOD 08/07/2024 9:48 AM [facility] CO2 25 21 - 32 mmol/L LAB CHEMISTRY METHOD 08/07/2024 9:48 AM [facility] Anion Gap 7 3 - 11 LAB CHEMISTRY METHOD 08/07/2024 9:48 AM [facility] Glucose 111(H) 70 - 100 mg/dL LAB CHEMISTRY METHOD 08/07/2024 9:48 AM [facility] BUN 20 5 - 25 mg/dL LAB CHEMISTRY METHOD 08/07/2024 9:48 AM [facility] Creatinine 0.77 0.50 - 1.10 mg/dL LAB CHEMISTRY METHOD 08/07/2024 9:48 AM [facility] eGFR 78 >=60 mL/min/1. 73m2 LAB CHEMISTRY METHOD 08/07/2024 9:48 AM [facility] Comment:Calculation based on the Chronic Kidney Disease Epidemiology Collaboration (CKD-EPI) equation refit without adjustment for race. BUN/Creatinine Ratio 26.0 LAB CHEMISTRY METHOD 08/07/2024 9:48 AM [facility] Calcium 9.0 8.5 - 10.5 mg/dL LAB CHEMISTRY METHOD 08/07/2024 9:48 AM [facility] Blood Venous blood specimen / Unknown Venipuncture / Unknown 08/07/2024 6:01 AM EST 08/07/2024 8:45 AM EST us Gaye Lauren MD LAB BLOOD ORDERABLES Final Resul t [facility] [address] [place] [address], * (ABNORMAL) Complete blood count (08/07/2024 6:01 AM EST) WBC 7.1 4.8 - 10.8 K/[facility] LAB HEMETOLOGY METHOD 08/07/2024 9:38 AM [facility] RBC 4.40 3.80 - 4.80 M/mcL LAB HEMETOLOGY METHOD 08/07/2024 9:38 AM [facility] Hemoglobin 12.0 11.5 - 16.0 g/dL LAB HEMETOLOGY METHOD 08/07/2024 9:38 AM [facility] Hematocrit 38.6 35.0 - 47.0 % LAB HEMETOLOGY METHOD 08/07/2024 9:38 AM [facility] MCV 87.3 79.0 - 98.0 FL LAB HEMETOLOGY METHOD 08/07/2024 9:38 AM [facility] MCH 27.1 27.0 - 32.0 pcg LAB HEMETOLOGY METHOD 08/07/2024 9:38 AM [facility] MCHC 31.1(L) 32.0 - 37.0 g/dL LAB HEMETOLOGY METHOD 08/07/2024 9:38 AM [facility] RDW 15.7(H) 11.0 - 15.0 % LAB HEMETOLOGY METHOD 08/07/2024 9:38 AM [facility] Platelets 221 130 - 400 K/mcL LAB HEMETOLOGY METHOD 08/07/2024 9:38 AM [facility] MPV 9.9 7.0 - 11.0 FL LAB HEMETOLOGY METHOD 08/07/2024 9:38 AM [facility] NRBC 0.0 <1.0 % LAB HEMETOLOGY METHOD 08/07/2024 9:38 AM [facility] NRBC Absolute 0.00 <0.10 K/mcL LAB HEMETOLOGY METHOD 08/07/2024 9:38 AM [facility] Blood Venous blood specimen / Unknown Venipuncture / Unknown 08/07/2024 6:01 AM EST 08/07/2024 8:45 AM EST us Gaye Lauren MD LAB BLOOD ORDERABLES Final Resul t [facility] [address] [place] [address], documented in this encounter Visit Diagnoses Diagnosis Essential (primary) hypertension Unspecified essential hypertension documented in this encounter Care Teams Financial Wellness Coach Relationship Specialty Start Date End Date Ashley Morales MD [address] [place] [address] PCP - General Internal Medicine 06/18/24 documented as of this encounter
== END 2024-11-24 16:29 | disposition home or self-care (01) ==
LOC: HO.HUSH 15:36
PROVIDERS: PCP Internal Medicine; Visit Provider Urology
DX: N20.0 Calculus of kidney (principal)
CPT/HCPCS: 99213

== ENCOUNTER → 2024-11-24 15:36 | Outpatient (BNVA) | payer MEDICARE, MEDICAID, SELFPAY | PROVIDERS: PCP Internal Medicine; Visit Provider Urology | DX: N20.0 Calculus of kidney (principal) | CPT/HCPCS: 99212 ==